=== PATIENT | female | born 1945 | race Caucasian/White ===

== ENCOUNTER → 2018-01-31 07:59 | Outpatient (CLI) | payer MEDICARE, OTHER, SELFPAY ==
[2018-01-31 10:03] LABS: Hemoglobin A1c 6.3 % (4.2-6.3); Microalbumin,Random Urine 32.3 mg/L (NO RANGE EST.)
[2018-01-31 10:25] LABS: ALB/GLOB Ratio 1.1 RATIO (0.9-2.4); AST(SGOT) 27 U/L (15-37); Alanine Aminotransfer ALT/SGPT 39 U/L (13-56); Albumin, Serum 3.3 g/dL (3.2-5.0); Alkaline Phosphatase 64 U/L (45-117); Anion Gap 10 (5-15); BUN 22 mg/dL (7-18); BUN/Creat Ratio 27.3 RATIO (10-20); Chloride 100 mmol/L (98-107); Cholesterol 168 mg/dL (200); EST Glomerular Filtration Rate 75 mL/min (>60); Est Glom Filt Rate - Afr Amer 90 mL/min (>60); Globulin 3.1 g/dL (2.2-4.2); Glucose 79 mg/dL (74-106); High Density Lipoprotein 75 mg/dL; Potassium 4.2 mmol/L (3.5-5.1); Protein, Total 6.4 g/dL (6.4-8.2); Sodium Level 138 mmol/L (136-145); Thyroid Stim Hormone (TSH) 0.97 uIU/mL (0.358-3.74); Triglycerides 84 mg/dL; Very Low Density Lipoprotein 17 mg/dL (5-40)
== END ==
PROVIDERS: Family Provider Family Medicine; PCP Family Medicine; Visit Provider Internal Medicine Endocrinology, Diabetes & Metabolism
DX: E11.21 Type 2 diabetes mellitus with diabetic nephropathy (principal); E78.2 Mixed hyperlipidemia; E04.9 Nontoxic goiter, unspecified
CPT/HCPCS: 36415; 80053; 80061; 82043; 83036; 84443

== ENCOUNTER → 2018-02-13 13:05 | Outpatient (CLI) | payer MEDICARE, OTHER, SELFPAY ==
--- NOTE | 2018-02-13 13:45 | MRI_ITS ---
STUDY: MRI LUMBAR SPINE WITHOUT CONTRAST REASON FOR EXAM: Female, 72 years old. Low back pain TECHNIQUE: Standardized fat and water weighted pulse sequences were obtained in the sagittal and axial planes. COMPARISON: None FINDINGS: T12-L1: Normal endplates. Normal disc height, hydration and morphology. Normal bilateral facet joints. Normal central canal and bilateral lateral recesses. Normal bilateral intervertebral neural foramina. Normal lumbar lordosis. Mild levoconvex scoliosis. Normal conus medullaris that terminates at the L1 level. L1-2: Circumferential disc marginal osteophyte. Central canal neural foramina patent. L2-3: Circumferential disc marginal osteophyte causing mild narrowing of the inferior neural foramina, left greater than right. Central canal is patent. L3-4: Moderate circumferential disc marginal osteophyte biased to the left causing moderately severe narrowing of the neural foramina, left greater than right. Central thecal sac is patent. L4-5: Moderate broad-based disc marginal osteophyte laterally on the right causing severe narrowing of the neural foramen and effacement of the lateral recess with probable nerve root impingement. Central canal patent. Moderate narrowing left neural foramen. L5-S1: Moderate circumferential disc marginal osteophyte biased to the right causing moderately severe narrowing of the neural foramen on the right. Central canal and left neural foramen patent. Normal visualized sacral ala. Normal visualized paraspinous soft tissue structures. MRI/Spine Lumbar (Routine) IMPRESSION: Moderate dextroconvex scoliosis and multilevel neural foraminal narrowing. Electronically Signed: David Winters MD at 0:04 EDT , Service support ,
== END ==
PROVIDERS: Family Provider Family Medicine; PCP Family Medicine; Visit Provider Orthopaedic Surgery
DX: M51.36 Other intervertebral disc degeneration, lumbar region (principal)
CPT/HCPCS: 72148

== ENCOUNTER → 2018-03-11 10:04 | Outpatient (CLI) | payer MEDICARE, OTHER, SELFPAY ==
[2018-03-11 12:58] LABS: Albumin, Serum 3.4 g/dL (3.2-5.0); BUN 15 mg/dL (7-18); BUN/Creat Ratio 17.6 RATIO (10-20); Calcium,Total 8.9 mg/dL (8.5-10.1); Chloride 98 mmol/L (98-107); Creatinine, Serum 0.85 mg/dL (0.55-1.02); EST Glomerular Filtration Rate 70 mL/min (>60); Est Glom Filt Rate - Afr Amer 84 mL/min (>60); Glucose 172 mg/dL (74-106); Phosphorus 4.6 mg/dL (2.5-4.9); Potassium 4.3 mmol/L (3.5-5.1); Sodium Level 136 mmol/L (136-145)
== END ==
PROVIDERS: Family Provider Family Medicine; PCP Family Medicine; Referring Provider Internal Medicine Nephrology; Visit Provider Internal Medicine Nephrology
DX: N18.2 Chronic kidney disease, stage 2 (mild) (principal)
CPT/HCPCS: 36415; 80069

== ENCOUNTER → 2018-06-22 10:34 | Outpatient (CLI) | payer MEDICARE, OTHER, SELFPAY ==
[2018-06-22 12:20] LABS: Anion Gap 11 (5-15); BUN 15 mg/dL (7-18); Calcium,Total 9.3 mg/dL (8.5-10.1); Chloride 106 mmol/L (98-107); Creatinine, Serum 0.83 mg/dL (0.55-1.02); EST Glomerular Filtration Rate 72 mL/min (>60); Est Glom Filt Rate - Afr Amer 87 mL/min (>60); Glucose 131 mg/dL (74-106); Sodium Level 141 mmol/L (136-145)
--- OUTSIDE RECORDS SUMMARY | 2018-08-24 20:54 | XMS RPT_ITS ---
:1945 Author Organization [facility] Address [address] [place] [address] Phone Care Team Providers Name Role Phone Marvin SULLIVAN, Emily Unavailable Reason for Visit Reason For Visit Description Start Date Follow-up by complaint Preliminary reason for visit data, not yet signed by the author as of lower back pain Preliminary reason for visit data, not yet signed by the author as of Chief Complaint Chief Complaint Description Start Date lower back pain Preliminary chief complaint data, not yet signed by the author as of Instructions Instruction Description Start Date Please follow-up with Primary Care Physician or Sole Blacker for treatment or adjustment of medication regarding elevated blood pressure.Patient advised to follow-up with Primary Care Physician for BMI management. Plan of Care Type Date Detail Appointment 09:30 AM Domingo Gay DO, [address] [place], [address], Appointment 01:00 PM Emily SULLIVAN, [address] [facility], [address], [address], Patient education \[email or web address] .pdf Medications Medication Instructions Start Stop Generic Name NDC Provider Date Date TYLENOL EXTRA 2 tabs as / ACETAMINOPHEN [id number] Emily STRENGTH 500 needed for 18 [place] MG TABS pain. [employer] TRAMADOL HCL 1 taqb 2x daily / TRAMADOL HCL [id number] Emily 50 MG TABS as needed for 18 [place] pain. [employer] FUROSEMIDE 20 1 tablet daily / FUROSEMIDE [id number] Manuela Smith MG TABS as needed for 04 [employer] TE[employer]ICIAN swelling LOSARTAN 1 tablet daily / LOSARTAN [id number] Manuela Smith POTASSIUM 50 04 POTASSIUM [employer] TECHNICIAN MG TABS CARVEDILOL 1 tablet twice / CARVEDILOL [id number] Manuela Smith 6.25 MG TABS daily 04 [employer]ARM TECHNICIAN LYRICA 75 MG 1 capsule twice / PREGABALIN [id number] Maneula Smith CAPS daily 04 [employer] FARM TECHNICIAN MAGNESIUM 400 1 tablet daily / MAGNESIUM 04326924669 Manuela Smith MG TABS 04 [employer] FARM TECHNICIAN TIZANIDINE 1 tablet twice / TIZANIDINE HCL 87038141637 Manuela Smith HCL 2 MG TABS daily as needed 04 [employer] FARM TECHNICIAN DULOXETINE 1 capsule daily / DULOXETINE HCL 64979070637 Manuela Smith HCL 30 MG 04 [employer] FARM TECHNICIAN CPEP PROBIOTIC 1 capsule daily / SACCHAROMYCES [id number] Manuela Smith CAPS 04 BOULARDII CAPS SOW FARM TECHNICIAN CRANBERRY 2 capsules / CRANBERRY CAPS 68276059132 Manueal Smith FRUIT CAPS daily 04 [employer] FARM TECHNICIAN CALCIUM TABS 4 tablets daily / CALCIUM 83975017753 Manuela Smith 04 CARBONATE-VITAMI [employer] FARM TECHNICIAN N D TABS NORVASC 2.5 1 tablet daily / AMLODIPINE 18914621020 Manuela Smith MG TABS 14 BESYLATE S[employer] FARM TECHNICIAN CENTRUM 1 tablet daily / MULTIPLE 38512753808 Manuela Smith SILVER TABS 16 VITAMINS-MINERAL SOW FARM TECHNICIAN S Conditions or Problems Problem Name Problem Onset Status Entry Provider Comment Standard Annotate Code Date Date Description Lumbar 19248502 Active Emily 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 Vital Signs Date Name Value Unit Description BMI (Body Mass 30.00 kg/m2 Body Mass Index Index) [Ratio] Preliminary vital sign data, not yet signed by the author as of BP Diastolic 69 mm[Hg] blood pressure, diastolic Preliminary vital sign data, not yet signed by the author as of BP Diastolic 75 mm[Hg] blood pressure, diastolic, second observation Preliminary vital sign data, not yet signed by the author as of BP Systolic 162 mm[Hg] blood pressure, systolic Preliminary vital sign data, not yet signed by the author as of BP Systolic 170 mm[Hg] blood pressure, systolic, second observation Preliminary vital sign data, not yet signed by the author as of Heart Rate 63 /min pulse rate E&M Preliminary vital sign data, not yet signed by the author as of Height 147 cm height in centimeters E&M Preliminary vital sign data, not yet signed by the author as of Height 58 [in_us] height E&M Preliminary vital sign data, not yet signed by the author as of Weight Measured 65 kg weight in kilograms E&M Preliminary vital sign data, not yet signed by the author as of Weight Measured 143 [lb_av] weight E&M Preliminary vital sign data, not yet signed by the author as of Results Date Name Value Unit Range Flag Description Lab Report: Urinalysis,Microscopic [id number] Many (51-100) Negative GE use only - for [employer] import when terms are not otherwise specified EPI CELL UR 3-5 /[LPF] 3-5 epithelial cells, urine URINERBC 3-5 0-2 URINE RBC UWBC 6-10 0-5 URINE WBC UR VOL TOTAL 8-12 mL urine volume, total for collection period Lab Report: Urinalysis,Macro URINE BLOOD Trace Negative URINE BLOOD BILIRUBIN UR Negative Negative bilirubin, urine UUROB Normal (0.2) 0-1 URINE UROBILINOGEN KETONES UR Negative Negative KETONES, URINE UGLUCOSE NEG (Normal) Negative Urine glucose TOT PROT UR Trace (15) Negative Protein [Mass] in mg/dL Urine collected for unspecified duration NITRITE UA POS Negative Nitrite Urine WBC ESTERASE 2+ Negative leukocyte (WBC) esterase, urine UA PH DIP 5.0 5.0-8.0 PH, urinalysis, by dipstick SPEC GR URIN 1.010 1.005-1.030 specific gravity, urine UA COLOR Yellow Lt. Yellow urine color APPEARANCE U Cloudy Clear appearance, urine Lab Report: Comp Metabolic Panel AST_SGOT 20 15-46 AST(SGOT) SGPT-UMD 35 U/L 13-69 alanine aminotransferase (SGPT), serum ALK PHOS 168 [iU]/ 38-126 H Alk Phos L BILI TOTAL 0.3 mg/dL 0.2-1.3 bilirubin, serum, total PROTEIN, TOT 5.7 g/dL 6.3-8.2 L protein, total, serum ALB S/P 3300 mg/dL Units L albumin, serum converted. See lab report for original value. CA 8.7 mg/dL 8.4-10.4 CALCIUM EGFR NOT AFA >60.0 mL/mi >60 eGFR if not mL/min n/1.7 [place] 3m2 EGFR IF AFA >60.0 mL/mi >60 eGFR if mL/min n/1.7 [place] 3m2 CREATININE 0.72 mg/dL 0.52-1.25 creatinine, serum BUN 15 mg/dL 7-20 urea nitrogen, blood GLUCOSE SER 182 mg/dL 70-100 H blood glucose ANIONGAP 6 (?) mmol/ anion gap, serum L CO2 31 mmol/ 22-30 H carbon dioxide, L venous blood CHLORIDE 99 mmol/ 98-107 chloride, serum L POTASSIUM 4.0 mmol/ 3.5-5.1 potassium, serum L SODIUM 136 mmol/ 135-145 sodium, serum L Lab Report: Hemogram MPV 7.4 fL 7.4-10.4 mean platelet volume PLATELETS 297 10*3/mm3 140-440 platelet count RDW 17.1 % 11.5-14.5 H red blood cell distribution width MCHC 32.9 % 32.0-36.0 mean corpuscular hemoglobin concentration, RBC MCH 30.1 pg 26.0-34.0 mean corpuscular hemoglobin, RBC MCV 91.5 fL 79.0-98.0 mean corpuscular volume, RBC HCT 31.6 % 35.0-47.0 L hematocrit, blood HGB 10.4 g/dL 11.7-16.0 L hemoglobin, blood RBC 3.45 10*6/mm3 3.80-5.20 L erythrocyte (RBC) count WBC 6.6 10*3/mm3 3.6-10.7 leukocyte count, blood Procedures Code Procedure Name Date Entry Date L0641 BASIC LUMBAR SUPPORT (BREG) G8509 Pain assessment documented as positive - no follow-up/reason not given G8427 Current medications documented 1036F Tobacco screening was negative - non user G8417 BMI documented as above normal parameters - follow-up documented G8950 Blood pressure outside of normal parameters - follow-up documented [id number] Patient Encounter Medications Administered No information available. Immunizations No information available. Advance Directives There may be information available, but it has not been provided by the sender. Assessments There may be information available, but it has not been provided by the sender. Review of Systems There may be information available, but it has not been provided by the sender. Family History There may be information available, but it has not been provided by the sender. History of Past Illness There may be information available, but it has not been provided by the sender. History of Present Illness There may be information available, but it has not been provided by the sender.
--- OUTSIDE RECORDS SUMMARY | 2018-08-24 20:54 | XMS RPT_ITS ---
:1945 Author Organization OHIP Care Team Providers Name Role Phone Hugo Julio Attending Unavailable Hugo Julio Primary Care Unavailable DAVID AG Attending Unavailable DAVID AG Referring Unavailable Hugo Julio Primary Care Unavailable MARBIN THOMPSON Attending Unavailable MARBIN THOMPSON Referring Unavailable Hugo Julio Primary Care Unavailable Tiara Buck Attending Unavailable Hugo Julio Primary Care Unavailable Tiara Buck Referring Unavailable PROBLEMS PROBLEMS DATE TYPE CONDITION / CODE ATTENDING STATUS SOURCE 03/11/2018 Unknown N18.2 - Chronic Tiara Buck Active [facility] stage 2 (mild) / Hospital N18.2(ICD-10) Repository 01/31/2018 Unknown 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 / Repository E11.21(ICD-10) 01/31/2018 Unknown 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, DAVID Active [facility] hyperlipidemia / Community E78.2(ICD-10) Hospital Repository 01/31/2018 Unknown 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 criteria. Please note revised GLUCOSE reference range effective 2017. LAB L501.1000 7-18 mg/dL Normal BUN 15 LAB L501.1100 0.55-1.02 mg/dL Normal CREAT,SERUM 0.83 Result Comment: The validity of the calculated GFR AND GFRAA in patients over 70 years has not been determined. Clinical correlation is essential. LAB L501.1110 >60 mL/min Normal EST GFR 72 Result Comment: Non- GFR Calc LAB L501.1115 >60 mL/min Normal EST GFR - AA 87 Result Comment: GFR Calc LAB L501.1300 10-20 RATIO Normal BUN/CRE 18.0 LAB L501.2200 8.5-10.1 mg/dL CA Normal 9.3 LAB L501.5300 136-145 mmol/L NA Normal 141 LAB L501.5600 3.5-5.1 mmol/L K Normal 4.0 LAB L501.5900 98-107 mmol/L CL Normal 106 LAB L501.6100 21.0-32.0 mmol/L Normal CO2 24.0 LAB L501.6200 5-15 Normal GAP 11 Performed By: #### L500.2500 #### [facility] [address] [place], [address] RENAL PROFILE Collected: 03/11/2018 Status: F Source: [place] 10:11 AM REPOSITORY TYPE CODE TESTS RESULT OUT OF RANGE REFERENCE UNITS LAB L501.0100 74-106 mg/dL High GLU 172 Result Comment: Fasting Glucose result greater than or equal to 126 mg/dL suggests DIABETES MELLITUS per A.D.A. criteria. Please note revised GLUCOSE reference range effective 2017. LAB L501.1000 7-18 mg/dL Normal BUN 15 LAB L501.1100 0.55-1.02 mg/dL Normal CREAT,SERUM 0.85 Result Comment: The validity of the calculated GFR AND GFRAA in patients over 70 years has not been determined. Clinical correlation is essential. LAB L501.1110 >60 mL/min Normal EST GFR 70 Result Comment: Non- GFR Calc LAB L501.1115 >60 mL/min Normal EST GFR - AA 84 Result Comment: GFR Calc LAB L501.1300 10-20 RATIO Normal BUN/CRE 17.6 LAB L501.1800 3.2-5.0 g/dL Normal ALB 3.4 LAB L501.2200 8.5-10.1 mg/dL CA Normal 8.9 LAB L501.2300 2.5-4.9 mg/dL Normal PHOS 4.6 LAB L501.5300 136-145 mmol/L NA Normal 136 LAB L501.5600 3.5-5.1 mmol/L K Normal 4.3 LAB L501.5900 98-107 mmol/L CL Normal 98 LAB L501.6100 21.0-32.0 mmol/L Normal CO2 28.0 Performed By: #### L500.3600 #### [facility] [address] [facility] [place], [address] SPINE LUMBAR Observed: 02/13/2018 Status: F Source: [place] (ROUTINE) 1:30 PM REPOSITORY [facility] Imaging Services [address] [place] [address] Spine Lumbar (Routine) MR#: [id number] Acct: [id number] Name: MADELYN HIGUERA Rep #: [id number] : 1945 F 72 From: David Winters MD PCP: Hugo Julio MD Status: REG CLI Study: Spine Lumbar (Routine) Date of Exam: 02/13/18 Exam# [id number] Ordering Dr: Domingo Thompson DO STUDY: MRI LUMBAR SPINE WITHOUT CONTRAST REASON FOR EXAM: Female, 72 years old. Low back pain TECHNIQUE: Standardized fat and water weighted pulse sequences were obtained in the sagittal and axial planes. COMPARISON: None FINDINGS: T12-L1: Normal endplates. Normal disc height, hydration and morphology. Normal bilateral facet joints. Normal central canal and bilateral lateral recesses. Normal bilateral intervertebral neural foramina. Normal lumbar lordosis. Mild levoconvex scoliosis. Normal conus medullaris that terminates at the L1 level. L1-2: Circumferential disc marginal osteophyte. Central canal neural foramina patent. L2-3: Circumferential disc marginal osteophyte causing mild narrowing of the inferior neural foramina, left greater than right. Central canal is patent. L3-4: Moderate circumferential disc marginal osteophyte biased to the left causing moderately severe narrowing of the neural foramina, left greater than right. Central thecal sac is patent. L4-5: Moderate broad-based disc marginal osteophyte laterally on the right causing severe narrowing of the neural foramen and effacement of the lateral recess with probable nerve root impingement. Central canal patent. Moderate narrowing left neural foramen. L5-S1: Moderate circumferential disc marginal osteophyte biased to the right causing moderately severe narrowing of the neural foramen on the right. Central canal and left neural foramen patent. Normal visualized sacral ala. Normal visualized paraspinous soft tissue structures. MRI/Spine Lumbar (Routine) IMPRESSION: Moderate dextroconvex scoliosis and multilevel neural foraminal narrowing. Electronically Signed: David Winters MD at 0:04 EDT , Service support , CC: Hugo Julio MD; MARBIN THOMPSON Wheel Molder: Signed HEMOGLOBIN A1C Collected: 01/31/2018 Status: F Source: [facility]ONATH[facility] 8:09 AM REPOSITORY TYPE CODE TESTS RESULT OUT OF RANGE REFERENCE UNITS LAB L501.9985 4.2-6.3 % Normal HGB A1C 6.3 Performed By: #### L501.9985 #### [facility] [address] [place], [place], [address] MICROALBUMIN,RANDOM URINE Collected: Status: F Source: [place] 01/31/2018 8:09 AM REPOSITORY TYPE CODE TESTS RESULT OUT OF RANGE REFERENCE UNITS LAB L502.0500 NO RANGE EST. mg/L Normal 32.3 MICROALBUMIN ,UR Performed By: #### L502.0500 #### [facility] [address] [place], [address] COMPREHENSIVE METABOLIC Collected: 01/31/2018 Status: F Source: [place]ON[facility] [place] 8:09 AM REPOSITORY TYPE CODE TESTS RESULT OUT OF RANGE REFERENCE UNITS LAB L501.0100 74-106 mg/dL Normal GLU 79 Result Comment: Please note revised GLUCOSE reference range effective 2017. LAB L501.1000 7-18 mg/dL High BUN 22 LAB L501.1100 0.55-1.02 mg/dL Normal CREAT,SERUM 0.80 Result Comment: The validity of the calculated GFR AND GFRAA in patients over 70 years has not been determined. Clinical correlation is essential. LAB L501.1110 >60 mL/min Normal EST GFR 75 Result Comment: Non- GFR Calc LAB L501.1115 >60 mL/min Normal EST GFR - AA 90 Result Comment: GFR Calc LAB L501.1300 10-20 RATIO High BUN/CRE 27.3 LAB L501.1500 6.4-8.2 g/dL T Normal PROT 6.4 LAB L501.1800 3.2-5.0 g/dL Normal ALB 3.3 LAB L501.1950 2.2-4.2 g/dL Normal GLOB 3.1 LAB L501.2000 0.9-2.4 RATIO Normal A/G 1.1 LAB L501.2200 8.5-10.1 mg/dL CA Normal 9.0 LAB L501.4100 15-37 U/L Normal AST 27 LAB L501.4305 45-117 U/L Normal ALK P 64 LAB L501.4405 13-56 U/L Normal ALT 39 LAB L501.4600 0.20-1.00 mg/dL T Normal BILI 0.40 LAB L501.5300 136-145 mmol/L NA Normal 138 LAB L501.5600 3.5-5.1 mmol/L K Normal 4.2 LAB L501.5900 98-107 mmol/L CL Normal 100 LAB L501.6100 21.0-32.0 mmol/L Normal CO2 28.0 LAB L501.6200 5-15 Normal GAP 10 Performed By: #### L500.4050, L500.4100, L501.9520 #### [facility] [address] [place], [address] LIPID PROFILE Collected: 01/31/2018 Status: F Source: [facility]ON[place] 8:09 AM REPOSITORY TYPE CODE TESTS RESULT OUT OF RANGE REFERENCE UNITS LAB L501.4900 200 mg/dL Normal CHOL 168 Result Comment: <200 mg/dL Desirable 200-240 mg/dL Borderline >240 mg/dL High Risk LAB L501.5000 mg/dL Normal TRIG 84 Result Comment: The drugs N-Acetylcysteine and Metamizole may falsely depress this assay. Serum Triglycerides Reference Interval Normal <150 mg/dL Borderline high 150 - 199 mg/dL High 200 - 499 mg/dL Very High > or = 500 mg/dL LAB L501.6400 mg/dL Normal HDL 75 Result Comment: The drugs N-Acetylcysteine and Metamizole may falsely depress this assay. Reference Range HDL <40 mg/dL Low HDL Cholesterol HDL >or= 60 mg/dL High HDL Cholesterol LAB L501.6500 0-130 mg/dL Normal LDL 76 LAB L501.6600 5-40 mg/dL Normal VLDL 17 Performed By: #### L500.4050, L500.4100, L501.9520 #### [facility] [address] [place], [address] THYROID STIM HORMONE Collected: 01/31/2018 Status: F Source: [place]ATH[facility] (TSH) 8:09 AM REPOSITORY TYPE CODE TESTS RESULT OUT OF RANGE REFERENCE UNITS LAB L501.9520 0.358-3.74 uIU/mL Normal TSH 0.97 Performed By: #### L500.4050, L500.4100, L501.9520 #### [facility] [address] [place], [place], [address] ALLERGIES ALLERGIES DATE TYPE / CODE NAME / CODE REACTION SEVERITY SOURCE 04/24/2016 Drug NSAIDS Other Unknown [facility] Allergy/4160 (Non-Steroidal Hospital 44205(SNOMED Anti-Inflamma/ Repository CT) [id number](RXN ORM) ENCOUNTERS ENCOUNTERS ADMIT/DISCHARGE ACCOUNT ADMITTING ENCOUNTER LOCATION SOURCE NUMBER CLASS 06/22/2018 [id number] Ambulatory [facility] 2 [facility] ing:MFPLAB Repository 03/11/2018 [id number] Ambulatory [facility] 7 [facility] ing:LAB.FUTUR Repository E 02/13/2018 [id number] Ambulatory [place] 8 [facility] ing:MRI Repository 01/31/2018 [id number] Ambulatory [place] [facility] 9 [facility] ing:LAB Repository PAYERS PAYERS ENCOUNTER GUARANTOR PAYER SUBSCRIBER SOURCE 06/22/2018 MADELYN Ames Primary MADEYLN [place] [id number] Insurance:MEDICARE MILLIKENDOB: [facility] [place]Y PART A [facility] [id number] Number: Repository [id number]: 330 [id number] [phone] () Date:2018-06-22 06/22/2018 Secondary MADELYN Ames [place] Insurance:AARPPolicy MILLIKENDOB: Community Number: [id number] Hospital [id number] Repository Date:[id number] [facility] [address], [place] [address]OZ: 06/22/2018 Tertiary NOT GIVENUNK [facility] Insurance:SELF PAY [facility] Number: Effective Repository Date:2018-06-22 03/11/2018 MADELYN Ames Primary MADELYN Johnson [id number] Insurance:MEDICARE MILLIKENDOB: Community ROCKY PART A [facility] [id number] Number: Repository [id number]: 330 [id number] [phone] () Date:2018-03-02 03/11/2018 Secondary MADELYN M [place] Insurance:AARPPolicy MILLIKENDOB: Community Number: [id number] Hospital [id number] Repository Date:[id number] [facility] [id number], [place] [address]ID: 03/11/2018 Tertiary NOT GIVENUNK [place] Insurance:SELF PAY [facility] Number: Effective Repository Date:2018-03-02 02/13/2018 MADELYN Ames Primary MADELYN Ames [place] [id number] Insurance:MEDICARE MILLIKENDOB: Community ROCKY PART A [facility] [id number] [place] Number: Repository [id number]: 330 [id number] [phone] () Date:2018-02-06 02/13/2018 Secondary MADELYN M [place] Insurance:AARPPolicy MILLIKENDOB: Community Number: [id number] Hospital [id number] Repository Date:[id number] [facility] [place], [place] [address]KC: 02/13/2018 Tertiary NOT GIVENUNK [place] Insurance:SELF PAY [facility] Number: Effective Repository Date:2018-02-06 01/31/2018 MADELYN Ames Primary MADELYN Ames Jonathan [id number] Insurance:MEDICARE MILLIKENDOB: Community ROCKY PART A [id number] [place] Number: Repository [id number]: 330 [id number] [phone] () Date:2018-01-31 01/31/2018 Secondary MADELYN Hui [place] Insurance:AARPPolicy NAINNDOB: Community Number: [id number] Hospital [id number] Repository Date:[id number] [facility] [place], [place] [address]CY: 01/31/2018 Tertiary NOT GIVENUNK [place] Insurance:SELF PAY [facility] Number: Effective Repository Date:2018-01-31
== END ==
PROVIDERS: Family Provider Family Medicine; PCP Family Medicine; Visit Provider Family Medicine
DX: E87.1 Hypo-osmolality and hyponatremia (principal)
CPT/HCPCS: 36415; 80048

== ENCOUNTER 2018-07-10 14:57 | Emergency (ER) | payer MEDICARE, OTHER, SELFPAY ==
[2018-07-10 14:59] VITALS: BP 201/101; PULSE 83; RESP 16; TEMP 36.6; O2SAT 98; BMI 29.0
--- NOTE | 2018-07-10 15:14 | CT_ITS ---
STUDY: CT BRAIN WITHOUT CONTRAST REASON FOR EXAM: Female, 72 years old. Laceration following a fall. RADIATION DOSAGE (If Supplied By Facility): CTDIvol = ( 44.99 ) mGy, DLP = ( 779.24 ) mGycm TECHNIQUE: Transaxial CT imaging of the brain was performed without administration of intravenous contrast material. Individualized dose optimization techniques were used for this CT. COMPARISON: None. FINDINGS: Normal soft tissue structures. Normal calvarium. There is mild cerebral atrophy with widening of the extra-axial spaces and ventricular dilatation. There are areas of decreased attenuation within the white matter tracts of the supratentorial brain, consistent with microvascular disease changes. Normal basal ganglia and thalami. Normal brainstem. Normal cerebellum. There is no intracranial hemorrhage. There are no findings of an acute ischemic infarction. Mucosal thickening of the right ethmoid sinus. CT/Brain/Head without Contrast IMPRESSION: Chronic involutional changes of the brain. Electronically Signed: Jim Arroyo MD at 15:38 EST , Service support ,
--- NOTE | 2018-07-10 15:14 | CT_ITS ---
STUDY: CT CERVICAL SPINE WITHOUT CONTRAST REASON FOR EXAM: Female, 72 years old. History of fall. Laceration. RADIATION DOSAGE (If Supplied By Facility): CTDIvol = ( 19.49 ) mGy, DLP = ( 434.35 ) mGycm TECHNIQUE: High resolution transaxial imaging was performed without contrast material. Sagittal and coronal images were reconstructed. Individualized dose optimization techniques were used for this CT. COMPARISON: None FINDINGS: Normal craniovertebral junction. Normal anterior atlantoaxial articulation. Normal odontoid process. There is straightening of the normal cervical lordosis. Normal vertebral bodies and posterior osseous elements. C2-3: Normal endplates. Normal disc height and morphology. Normal central canal and intervertebral neuroforamina. C3-4: Normal endplates. Normal disc height and morphology. Normal central canal and intervertebral neuroforamina. C4-5: Normal endplates. Normal disc height and morphology. Normal central canal and intervertebral neuroforamina. C5-6: Moderate degree of disc space narrowing. Uncovertebral arthrosis. Facet joint osteoarthritis of the bilateral facets. Bilateral neural foraminal stenosis worse on the left side. C6-7: Normal endplates. Normal disc height and morphology. Normal central canal and intervertebral neuroforamina. C7-T1: Normal endplates. Normal disc height and morphology. Normal central canal and intervertebral neuroforamina. Calcification of the carotid arteries. CT/Spine Cervical without Contras IMPRESSION: Multilevel degenerative changes, as described above. Electronically Signed: Jim Arroyo MD at 15:40 EST , Service support ,
--- NOTE | 2018-07-10 15:16 | ED.VISSUMM ---
- ER Visit Summary Date of Service: 07/10/18 Chief Complaint: Fall History of Present Illness: The patient is a 72 F presenting after fall. Patient states that she was trying to use her walker. It was not clicked together. Her walker collapsed and she tripped and fell. She hit her head but did not lose consciousness. She has a laceration to her left earlobe. She has left forearm skin tears. She is not on anticoagulants. She had back surgery approximately a month ago. She denies back pain. She is able to ambulate. No other injuries. Tetanus is up-to-date. Physical Examination: Vitals are stable. Patient is afebrile. Alert no acute distress. HEENT exam 1.5 cm left earlobe laceration Neck mild diffuse tenderness with no step-off Lungs are clear and equal bilaterally. Heart is regular rate and rhythm. Abdomen is soft nontender nondistended. Back: nontender Extremities 3 skin tears left dorsal forearm, no tenderness. Active full range of motion. Neurovascularly intact distally. Skin is warm and dry. No focal neurologic deficit. Remainder of exam is unremarkable. Emergency Department Course and Treatment: CT head and neck show no acute process. Laceration was repaired. Irrigated with saline. Anesthetized with lidocaine. 4, 5-0 simple sutures were placed. Patient tolerated this well. Advised wound care instructions. Advised to follow-up with primary care physician. Advised return to ED for worsening complaints. Disposition: Discharge home Impression: Mechanical fall, left earlobe laceration, left forearm skin tear, laceration repair This note was generated with [employer] dictation software. It may contain incorrect words, spelling, and punctuation that were not noted in review of the chart prior to signing ED Disposition - Plan for ED Patient: Referrals: Hugo Julio MD [Primary Care Provider] -
--- NOTE | 2018-07-10 16:11 | ED.DEP ---
ED Disposition - Plan for ED Patient: Instructions: ED Mechanical Fall, ED Laceration All Referrals: Hugo Julio MD [Primary Care Provider] -
[2018-07-10 16:24] VITALS: BP 183/75; PULSE 68; RESP 16; O2SAT 98
== END 2018-07-10 16:38 | disposition home or self-care (01) ==
LOC: ED 16:34
PROVIDERS: Emergency Provider Emergency Medicine; Family Provider Family Medicine; PCP Family Medicine
DX: S01.312A Laceration without foreign body of left ear, initial encounter (principal); S51.812A Laceration without foreign body of left forearm, initial encounter; W18.39XA Other fall on same level, initial encounter; Y93.89 Activity, other specified; Y92.9 Unspecified place or not applicable; I10 Essential (primary) hypertension
CPT/HCPCS: 12011; 70450; 72125; 99283

== ENCOUNTER → 2018-10-20 08:39 | Outpatient (CLI) | payer MEDICARE, OTHER, SELFPAY ==
[2018-10-20 10:41] LABS: Vitamin D,25 Hydroxy 43.7 ng/mL (29.95-100.01)
[2018-10-20 10:48] LABS: AST(SGOT) 17 U/L (15-37); Alanine Aminotransfer ALT/SGPT 22 U/L (13-56); Albumin, Serum 3.4 g/dL (3.2-5.0); Alkaline Phosphatase 124 U/L (45-117); Anion Gap 10 (5-15); BUN 13 mg/dL (7-18); BUN/Creat Ratio 17.2 RATIO (10-20); Calcium,Total 8.8 mg/dL (8.5-10.1); Chloride 104 mmol/L (98-107); Cholesterol 146 mg/dL (200); Creatinine, Serum 0.75 mg/dL (0.55-1.02); EST Glomerular Filtration Rate 80 mL/min (>60); Est Glom Filt Rate - Afr Amer 97 mL/min (>60); Globulin 3.4 g/dL (2.2-4.2); Glucose 85 mg/dL (74-106); High Density Lipoprotein 59 mg/dL; Potassium 3.9 mmol/L (3.5-5.1); Protein, Total 6.8 g/dL (6.4-8.2); Sodium Level 140 mmol/L (136-145); Thyroid Stim Hormone (TSH) 1.11 uIU/mL (0.358-3.74); Triglycerides 114 mg/dL; Very Low Density Lipoprotein 23 mg/dL (5-40)
== END ==
PROVIDERS: Family Provider Family Medicine; PCP Family Medicine; Referring Provider Internal Medicine Endocrinology, Diabetes & Metabolism; Visit Provider Internal Medicine Endocrinology, Diabetes & Metabolism
DX: E11.21 Type 2 diabetes mellitus with diabetic nephropathy (principal); E04.9 Nontoxic goiter, unspecified; E55.9 Vitamin D deficiency, unspecified
CPT/HCPCS: 36415; 80053; 80061; 82306; 83036; 84443

== ENCOUNTER → 2018-11-04 17:20 | Outpatient (CLI) | payer MEDICARE, OTHER, SELFPAY ==
--- NOTE | 2018-11-04 17:33 | RAD_ITS ---
HISTORY: Fecal urgency. 3 views of the abdomen. Findings: No comparisons. Severe degenerative disc disease and dextroscoliosis within the lumbar spine. Multiple surgical clips. There is some cholecystectomy clips within the right hemiabdomen, but some additional gastroesophageal junction clips and additional left hemiabdomen clips, possibly related to a gastric bypass. Gaseous distention of small bowel and colon is present but not to a pathological degree. No constipation. No air-fluid levels. A right hemipelvic phlebolith is present. Lung bases are clear. The heart does not appear to be enlarged. Arthritis is mild. No free air. RAD/Abd Inc Decub and/or Erect IMPRESSION: No acute disease perceived. Etiology for fecal free urgency not perceived. at 5248 Reported and signed by: Yasir Montoya MD Electronically Signed: Yasir Montoya MD at 4:18 EDT Tel , Service support ,
== END ==
PROVIDERS: Family Provider Family Medicine; PCP Family Medicine; Referring Provider Family Medicine; Visit Provider Family Medicine
DX: R15.2 Fecal urgency (principal)
CPT/HCPCS: 74019

== ENCOUNTER → 2018-11-06 12:03 | Outpatient (CLI) | payer MEDICARE, OTHER, SELFPAY ==
[2018-11-06 14:33] LABS: Vitamin B12 338 pg/mL (211-911)
[2018-11-06 15:01] LABS: Ferritin 16 ng/mL (8-252)
[2018-11-11 11:15] LABS: Zinc, WHOLE BLOOD 563 ug/dL (440-860)
== END ==
PROVIDERS: Family Provider Family Medicine; PCP Family Medicine; Referring Provider Family Medicine; Visit Provider Family Medicine
DX: Z98.84 Bariatric surgery status (principal)
CPT/HCPCS: 36415; 82607; 82728; 82746; 84630

== ENCOUNTER → 2018-11-12 08:58 | Outpatient (CLI) | payer MEDICARE, OTHER, SELFPAY ==
--- NOTE | 2018-11-12 09:00 | RAD_ITS ---
STUDY: AIR-CONTRAST UPPER GI SERIES AND SMALL BOWEL FOLLOW-THROUGH EXAMINATION. REASON FOR EXAM: Female, 73 years old. Abdominal bloating. History of prior gastric bypass surgery. FLUOROSCOPY TIME (if supplied): (1:55) minutes/seconds. 25 fluoroscopic images were obtained. TECHNIQUE: The patient ingested barium. Multiple images of the esophagus, stomach and duodenum were obtained. COMPARISON: None. FINDINGS: There is a moderate sized hiatal hernia. No evidence of gastroesophageal reflux. No mass lesion is seen. There is evidence of subtotal gastrectomy with anastomosis. There is no evidence of mass lesion. No evidence of ulceration. A small bowel follow-through examination was then obtained. The small bowel transit is normal. The terminal ileum is unremarkable. RAD/Upper GI/w Small Bowel IMPRESSION: Moderate sized hiatal hernia without gastroesophageal reflux. The patient is status post subtotal gastrectomy and gastric bypass surgery. Electronically Signed: Jim Arroyo, at 15:30 EDT , Service support ,
== END ==
PROVIDERS: Family Provider Family Medicine; PCP Family Medicine; Referring Provider Family Medicine; Visit Provider Family Medicine
DX: R15.2 Fecal urgency (principal)
CPT/HCPCS: 74249

== ENCOUNTER 2018-12-02 07:36 | Day surgery (SDC) | payer MEDICARE, OTHER, SELFPAY ==
[2018-11-24 15:02] VITALS: BMI 29.0
--- NOTE | 2018-11-25 12:05 | HP_ITS ---
Intake Vital Signs 11/24/18 Body Mass Index (BMI) 29.0 11/24/18 Height 4 ft 10 in 11/24/18 Weight: 135 lb 11/24/18 Body Mass Index (BMI) 28.2 11/24/18 Blood Pressure 207/69 H 11/24/18 Blood Pressure Location Rt femoral 11/24/18 Respiratory Rate 18 11/24/18 Pulse Rate 66 11/24/18 Pulse Source Monitor 11/24/18 Temperature 97.8 F 11/24/18 Pulse Ox 97 11/24/18 Oxygen Delivery Method room air Intake Visit Reasons: Hiatal Hernia (Patient wanted to see [facility]) Cleaner Required: No Is patient in pain?: No Allergies NSAIDS (Non-Steroidal Anti-Inflamma Adverse Reaction (Verified 11/24/18 14:47) Other Medications Multivit-Min/FA/Lycopene/Lut [Centrum Silver Tablet] 1 tab PO DAILY 03/04/13 [History Confirmed 11/24/18] Magnesium Oxide 400 mg PO DAILY 05/06/13 [History Confirmed 11/24/18] Docusate Sodium [Colace] 100 mg PO PRN PRN 04/24/16 [History Confirmed 11/24/18] amlodipine 5 mg tablet 2.5 mg PO DAILY tab 11/24/18 [History Confirmed 11/24/18] calcium carb,cit ER 600 mg calcium-vit D3 500 unit tablet,ext.release tab PO BID tab 11/24/18 [History] carvedilol 6.25 mg tablet 6.25 mg PO DAILY tab 11/24/18 [History Confirmed 11/24/18] lactobacillus combination no.8 3 billion cell capsule 3,000 mmu cells PO DAILY 11/24/18 [History Confirmed 11/24/18] losartan 100 mg tablet 50 mg PO DAILY tab 11/24/18 [History Confirmed 11/24/18] mirabegron ER 25 mg tablet,extended release 24 hr 25 mg PO DAILY 11/24/18 [History Confirmed 11/24/18] pregabalin 50 mg capsule 50 mg PO QHS cap 11/24/18 [History Confirmed 11/24/18] pregabalin 75 mg capsule 75 mg PO DAILY cap 11/24/18 [History Confirmed 11/24/18] PFSH Medical History History of change in bowel patterns (Acute) Hiatal hernia (Acute) Arthritis (Acute) Constipation (Acute) Diabetes (Acute) Diarrhea (Acute) History of back problems (Acute) Hypertension (Chronic) Surgical History History of bilateral knee replacement (Acute) history excision melanoma forehead (Acute) history orif right arm (Acute) Family History Grandfather Arthritis Colon cancer Grandmother Arthritis Hypertension Mother Arthritis Osteoporosis Father Hypertension Social History (Updated 11/25/18 @ 12:06 by Km Wynn MD) Smoking Status: Never smoker alcohol intake: never substance use type: does not use HPI HPI HPI: MADELYN HIGUERA, is a 73 F who presents to the office today for HPI HPI Surgical H&P: Yes HPI: MADELYN HIGUERA, is a 73 F who presents to the office today for evaluation for endoscopy. Patient has noticed an obvious change in her bowel habits which has been increasing over the last 3 to 4 months. She will noticed occasional rectal bleeding she has had significant amount of abdominal cramps and bloating. This is usually followed with mucousy stool and then diarrhea this is about every 3 days sometimes she will even have normal bowel movements in between this. Patient had an upper GI small bowel follow-through which showed a moderate size hiatal hernia without reflux patient is status post a subtotal gastrectomy and gastric bypass surgeries. Her last colonoscopy was [address] Auguste which she reportedly said was negative however I do not have that report in front of me as I dictate. Patient also states that she has difficulty with rectal incontinence and occasionally urinary incontinence. ROS General General: Yes fatigue; no weight change, appetite, colon cancer, breast cancer or weakness HEENT HEENT: No difficulty swallowing, eye injury, eye surgery, swollen glands or hoarseness Endo Endocrine: Yes diabetes mellitus; no thyroid disease, thyroid cancer, Hair loss, heat intolerance or cold intolerance Skin Skin: No rash or changing moles Breast Breast: No left breast lump, right breast lump, nipple discharge, breast pain, abnormal mammogram, abnormal US or breast enlargement Musc Musculoskeletal: Yes back problems and arthritis; no rheumatoid arthritis, gout or joint pain Cardio Cardiovascular: Yes high blood pressure; no murmur, pacemaker, heart disease, atrial fibrillation, heart attack, heart stent, palpitations, shortness of breat with exertion or chest pain Psych Psychiatric: No depression, anxiety or hearing voices Resp Respiratory: No shortness of breath, No sleep apnea, No cough, No COPD, No asthma, No emphysema, No wheezing Gastro Gastrointestinal: No abdominal pain, No nausea or vomiting, Yes diarrhea, Yes constipation, No blood in stool, No acid reflux, No hemorrhoids, No ulcers, No gallbladder problem, No black,tarry stools Frederic Hematologic: No blood thinners, No blood disorders, No bleeding, Yes anemia, No blood clots Neuro Neurologic: No system reviewed and no additional complaints, except as docu, No as per HPI, No abnormal walking, No abnormal hearing, No abnormal movements, No abnormal speech, No behavioral changes, No burning sensations, No confusion, No seizure-like activity, No unsteadiness, No dizziness, No localized weakness, No frequent falls, No headache(s), No lack of coordination, No loss of vision, No memory loss, No numbness, No other visual disturbances, No radiating pain, No restless legs, No sensory deficit, No fainting, No tingling, No tremor(s), No weakness, No other Exam Const General: no acute distress, well developed, well hydrated Orientation: oriented to person, oriented to place, oriented to time [facility] Head: normocephalic, atraumatic Ears: external ears normal Mouth: moist mucous membranes Eyes Sclera: sclerae normal Pupils: normal by confrontation Neck Neck: no lymphadenopathy noted Neck mass: No Thyroid: thyroid normal, symmetrical Chest Chest palpation & inspection: normal inspection of the chest Breast Palpation: No nipple discharge Resp Effort & Inspection: normal respiratory effort Auscultation: clear to auscultation bilaterally Percussion: percussion normal Cardio Rate: regular rate Rhythm: regular rhythm Heart Sounds: no murmurs GI Palpation: soft, no hepatosplenomegaly, no masses, nontender Rectal Exam: other Other: Rectal exam deferred. Extrem General: normal to inspection, no clubbing, cyanosis or edema Assessment & Plan Problems 1. History of change in bowel patterns 2. Hiatal hernia K44.9 Plan I have discussed the above with the patient. I have offered the patient colonoscopy as well as an esophagogastroduodenoscopy For evaluation. I have explained the risks/benefits of the procedure and described the procedure. I have discussed the risks with the patient, including but not limited to: infection, bleeding, perforation of the GI tract requiring emergency surgery, inability to complete the procedure, injury to any internal organs, complications of anesthesia, etc. - the patient understands and agrees to proceed. I have answered all the patient's questions to the patient's satisfaction and the patient has no further questions. The patient has been given instructions for the colon cleansing preparation. We will be doing random colon biopsies. Coding Level of Care Code Off vis,new,level 3 Diagnoses History of change in bowel patterns Hiatal hernia K44.9 11/25/18 1206 <Electronically signed by Km corral MD> Date _ Km Wynn MD I have re-examined the patient. There are no clinical changes since date of exam.
[2018-12-02] VITALS (10 sets, daily range): BP systolic 109–195; BP diastolic 62–81; PULSE 59–81; RESP 16; TEMP 36.2–36.8; O2SAT 92–100; BMI 27.2
--- NOTE | 2018-12-02 | COLBX_PTH ---
PATIENT: MADELYN HIGUERA LOC: EN U#:[id number] AGE/SX: 73/F ROOM: RE12/02/[address]: Dr. Km Wynn MD : 1945 BED: DIS: 12/02/2018 SPEC #: [id number] RECD: 12/02/18 09:58 STATUS: CARY REQ #: [id number] KLARISSA: 12/02/18 00:[address]: Km Wynn DEPT: SURGICAL PATHOLOGY RECD BY: Obdulio Simon ENTERED: 12/02/18 14:03 SP TYPE: COLON BX OTHR DR: Dr. Hugo Julio MD Tissues: A - Ascending colon B - COLON BIOPSY C - Rectum, NOS Procedures: Surgery Specimen Level IV HEADER OPERATION: Colonoscopy, EGD ([facility] [place]) PRE-OP DIAGNOSIS: Change in bowel habits; hiatal hernia TISSUE SUBMITTED: A - Ascending colon biopsy, B - Random colon biopsies, C - Rectal biopsies MICROSCOPIC DIAGNOSIS A. Ascending colon polyp, biopsy: Tubular adenoma. B. Colon, random biopsy: Fragments of colonic mucosa, no pathologic diagnosis. Tubular adenoma (one fragment). C. Rectal biopsy: Focal acute colitis. See microscopic description and comment. SJ:perla 12/04/18 COMMENT C. Clinical correlation and appropriate follow-up are suggested as clinically indicated. MICROSCOPIC DESCRIPTION Slides are reviewed. C. The specimen shows fragments of colonic mucosa with acute and chronic inflammatory cell Infiltrates in the lamina propria. Cryptitis and cryjpt abscesses, glandular distortion and granulomas are not seen. The finding of focal acute colitis is usually an incidental finding. Rarely it can be associated with infectious, self limited colitis or inflammatory bowel disease. GROSS DESCRIPTION A - Received in fixative is one container labeled with the patient's name and designated ascending colon polyp. The specimen consists of one irregular fragment of light hernandez soft tissue that measures 0.2 x 0.2 x 0.1 cm. The specimen is totally submitted in one cassette. B - Received in fixative is one container labeled with the patient's name and designated random colon biopsy. The specimen consists of multiple irregular fragments of light hernandez soft tissue that in aggregate measure 1 x 0.8 x 0.1 cm. The specimen is totally submitted in one cassette. C - Received in fixative is one container labeled with the patient's name and designated rectal biopsy. The specimen consists of multiple irregular fragments of light hernandez soft tissue that in aggregate measure 0.5 x 0.4 x 0.1 cm. Fragments of fecal material are also noted. The specimen is totally submitted in one cassette. / SHASHA:perla 12/02/18 TC:2 CPT: 78500 x3
[2018-12-02 08:20] LABS: Bedside Glucose 67 mg/dL (70-110)
--- NOTE | 2018-12-02 10:46 | OP.ENDO_ITS ---
12/02/2018 Hugo Julio [address] [place] [address] Re : Colonoscopy procedure for Shirley Love Dear Dr. Julio This procedure was performed on Sunday, December 02, 2018. My impressions and recommendations are as follows: Impressions : - One 5 mm polyp in the ascending colon, removed with a hot snare. Resected and retrieved. - Localized moderate inflammation was found in the rectum secondary to colitis. Biopsied. - Biopsies were taken with a cold forceps from the entire colon for evaluation of microscopic colitis. Recommendations : - Discharge patient to home. - Resume previous diet. - Continue present medications. - Await pathology results. - Repeat colonoscopy in 3 years for surveillance. - Return to my office in 1 week. My findings are described in the full procedure note, which is enclosed. If I can be of further assistance, please feel free to contact me at Doctor phone number(s): , Fax: [phone], Work: . Sincerely, MD Km Cardenas MD 12/02/2018 9:17:22 AM This report has been signed electronically.
--- NOTE | 2018-12-02 10:46 | OP.ENDO_ITS ---
12/02/2018 Hugo Julio [address] [place] [address] Re : Upper GI endoscopy procedure for Shirley Kate Dear Dr. Julio This procedure was performed on Sunday, December 02, 2018. My impressions and recommendations are as follows: Impressions : - Normal esophagus. - Bleeding erosive gastropathy. No specimens collected. - Normal examined jejunum. No specimens collected. Recommendations : - Discharge patient to home. - Resume previous diet. - Continue present medications. - Repeat upper endoscopy at appointment to be scheduled for surveillance. - Return to my office in 1 week. My findings are described in the full procedure note, which is enclosed. If I can be of further assistance, please feel free to contact me at Doctor phone number(s): , Fax: [phone], Work: . Sincerely, MD Km Cardenas MD 12/02/2018 9:12:56 AM This report has been signed electronically.
== END 2018-12-02 10:17 | disposition home or self-care (01) ==
LOC: EN 07:37 → AC 07:38
PROVIDERS: Family Provider Family Medicine; PCP Family Medicine; Referring Provider Family Medicine; Visit Provider Surgery
PROC: 0DJD8ZZ Inspection of Lower Intestinal Tract, Via Natural or Artificial Opening Endoscopic (ICD-10-PCS; CPT 45378; principal; 2018-12-02 08:50)
DX: K31.89 Other diseases of stomach and duodenum (principal); K44.9 Diaphragmatic hernia without obstruction or gangrene; D12.2 Benign neoplasm of ascending colon; K52.9 Noninfective gastroenteritis and colitis, unspecified; K62.5 Hemorrhage of anus and rectum; R93.3 Abnormal findings on diagnostic imaging of other parts of digestive tract; R19.4 Change in bowel habit; I10 Essential (primary) hypertension; E11.9 Type 2 diabetes mellitus without complications; Z79.899 Other long term (current) drug therapy; Z98.84 Bariatric surgery status
CPT/HCPCS: 43235; 45380; 45385; 82962; 88305; J7120; J1610; J2405

== ENCOUNTER → 2018-12-11 13:22 | Outpatient (CLI) | payer MEDICARE, OTHER, SELFPAY ==
[2018-12-02 07:45] VITALS: BMI 27.2
--- NOTE | 2018-12-11 13:25 | BI_ITS ---
MAMMOGRAPHY - BILATERAL SCREENING REASON FOR EXAM: Female, 73 years old. Routine annual screening examination. PERTINENT HISTORY: Non-contributory. TECHNIQUE: Digital bilateral breast mundo (3D mammographic acquisition) in the CC and MLO projections. 2-D mediolateral oblique (MLO) and craniocaudad (CC) views of both breasts were obtained. CAD: Full Field Digital Mammography with Computer Added Detection was performed. COMPARISON: Comparison is made with prior study dated November 15, 2016 and November 15, 2015. FINDINGS: Breast Composition: The breasts are heterogeneously dense, which may obscure small masses. There are no dominant masses or suspicious calcifications. No other significant abnormalities are identified. There has been no significant change since the prior study. BI/SCREEN MAMM (CAD) W/MUNDO BILAT IMPRESSION: Stable bilateral screening mammogram. Yearly follow-up mammogram recommended. (A) ASSESSMENT CATEGORY: BIRADS Category 1: Negative. A letter regarding these results will be sent to the patient by the facility within 30 days. Approximately 10% of breast cancers are not detected by mammography. A normal mammogram should not delay biopsy of a clinically suspicious abnormality. [id number] Electronically Signed: Jim Arroyo, at 14:46 EDT , Service support ,
== END ==
PROVIDERS: Family Provider Family Medicine; PCP Family Medicine; Referring Provider Obstetrics & Gynecology; Visit Provider Obstetrics & Gynecology
DX: Z12.31 Encounter for screening mammogram for malignant neoplasm of breast (principal)
CPT/HCPCS: 77063; 77067

== ENCOUNTER → 2019-01-05 10:41 | Outpatient (CLI) | payer MEDICARE, OTHER, SELFPAY ==
[2018-12-02 07:45] VITALS: BMI 27.2
[2019-01-05 12:38] LABS: AST(SGOT) 21 U/L (15-37); Alanine Aminotransfer ALT/SGPT 39 U/L (13-56); Albumin, Serum 2.9 g/dL (3.2-5.0); Alkaline Phosphatase 103 U/L (45-117); Anion Gap 8 (5-15); BUN 22 mg/dL (7-18); BUN/Creat Ratio 26.2 RATIO (10-20); Calcium,Total 8.6 mg/dL (8.5-10.1); Chloride 107 mmol/L (98-107); Creatinine, Serum 0.84 mg/dL (0.55-1.02); EST Glomerular Filtration Rate 71 mL/min (>60); Est Glom Filt Rate - Afr Amer 86 mL/min (>60); Glucose 155 mg/dL (74-106); Potassium 3.3 mmol/L (3.5-5.1); Protein, Total 5.9 g/dL (6.4-8.2); Sodium Level 142 mmol/L (136-145)
== END ==
PROVIDERS: Family Provider Family Medicine; PCP Family Medicine; Referring Provider Family Medicine; Visit Provider Family Medicine
DX: E87.1 Hypo-osmolality and hyponatremia (principal)
CPT/HCPCS: 36415; 80053

== ENCOUNTER → 2019-01-15 09:24 | Outpatient (CLI) | payer MEDICARE, OTHER, SELFPAY ==
[2018-12-02 07:45] VITALS: BMI 27.2
[2019-01-15 11:17] LABS: BUN 18 mg/dL (7-18); Creatinine, Serum 0.72 mg/dL (0.55-1.02); Glucose 89 mg/dL (74-106)
[2019-01-15 11:18] LABS: ALB/GLOB Ratio 0.9 RATIO (0.9-2.4); AST(SGOT) 32 U/L (15-37); Alanine Aminotransfer ALT/SGPT 53 U/L (13-56); Albumin, Serum 3.2 g/dL (3.2-5.0); Alkaline Phosphatase 121 U/L (45-117); Anion Gap 1 (5-15); BUN/Creat Ratio 24.9 RATIO (10-20); Calcium,Total 8.8 mg/dL (8.5-10.1); Chloride 109 mmol/L (98-107); EST Glomerular Filtration Rate 84 mL/min (>60); Est Glom Filt Rate - Afr Amer 102 mL/min (>60); Globulin 3.4 g/dL (2.2-4.2); Magnesium 2.7 mg/dL (1.6-2.6); Potassium 3.7 mmol/L (3.5-5.1); Protein, Total 6.6 g/dL (6.4-8.2); Sodium Level 143 mmol/L (136-145)
[2019-01-15 12:24] LABS: Hemoglobin A1c 6.4 % (4.2-6.3)
== END ==
PROVIDERS: Family Provider Family Medicine; PCP Family Medicine; Referring Provider Internal Medicine Endocrinology, Diabetes & Metabolism; Visit Provider Internal Medicine Endocrinology, Diabetes & Metabolism
DX: E11.21 Type 2 diabetes mellitus with diabetic nephropathy (principal)
CPT/HCPCS: 36415; 80053; 83036; 83735

== ENCOUNTER → 2019-03-02 08:29 | Outpatient (CLI) | payer MEDICARE, OTHER, SELFPAY ==
[2018-12-02 07:45] VITALS: BMI 27.2
[2019-03-02 11:13] LABS: ALB/GLOB Ratio 1.1 RATIO (0.9-2.4); AST(SGOT) 31 U/L (15-37); Alanine Aminotransfer ALT/SGPT 60 U/L (13-56); Albumin, Serum 3.5 g/dL (3.2-5.0); Alkaline Phosphatase 116 U/L (45-117); Anion Gap 8 (5-15); BUN 15 mg/dL (7-18); BUN/Creat Ratio 19.6 RATIO (10-20); Calcium,Total 9.2 mg/dL (8.5-10.1); Chloride 101 mmol/L (98-107); Creatinine, Serum 0.77 mg/dL (0.55-1.02); EST Glomerular Filtration Rate 79 mL/min (>60); Est Glom Filt Rate - Afr Amer 95 mL/min (>60); Globulin 3.1 g/dL (2.2-4.2); Glucose 84 mg/dL (74-106); Potassium 4.1 mmol/L (3.5-5.1); Protein, Total 6.6 g/dL (6.4-8.2); Sodium Level 139 mmol/L (136-145)
== END ==
PROVIDERS: Family Provider Family Medicine; PCP Family Medicine
DX: E88.09 Other disorders of plasma-protein metabolism, not elsewhere classified (principal); E87.6 Hypokalemia
CPT/HCPCS: 36415; 80053

== ENCOUNTER → 2019-05-24 10:19 | Outpatient (CLI) | payer MEDICARE, OTHER, SELFPAY ==
[2018-12-02 07:45] VITALS: BMI 27.2
[2019-05-24 13:22] LABS: ALB/GLOB Ratio 1.1 RATIO (0.9-2.4); AST(SGOT) 25 U/L (15-37); Alanine Aminotransfer ALT/SGPT 32 U/L (13-56); Albumin, Serum 3.2 g/dL (3.2-5.0); Alkaline Phosphatase 102 U/L (45-117); Anion Gap 5 (5-15); BUN 16 mg/dL (7-18); BUN/Creat Ratio 19.9 RATIO (10-20); Calcium,Total 8.4 mg/dL (8.5-10.1); Chloride 110 mmol/L (98-107); EST Glomerular Filtration Rate 74 mL/min (>60); Est Glom Filt Rate - Afr Amer 90 mL/min (>60); Glucose 152 mg/dL (74-106); Potassium 3.3 mmol/L (3.5-5.1); Protein, Total 6.2 g/dL (6.4-8.2); Sodium Level 143 mmol/L (136-145)
== END ==
PROVIDERS: Family Provider Family Medicine; PCP Family Medicine; Referring Provider Internal Medicine Endocrinology, Diabetes & Metabolism; Visit Provider Internal Medicine Endocrinology, Diabetes & Metabolism
DX: E11.21 Type 2 diabetes mellitus with diabetic nephropathy (principal)
CPT/HCPCS: 36415; 80053; 83036

== ENCOUNTER 2019-05-30 05:07 | Emergency (ER) | payer MEDICARE, OTHER, SELFPAY ==
[2018-12-02 07:45] VITALS: BMI 27.2
[2019-05-30 05:11] VITALS: BP 195/66; PULSE 68; RESP 16; TEMP 36.6; O2SAT 97; BMI 29.5
--- NOTE | 2019-05-30 05:45 | VDLE_ITS ---
Reason For Study: Lower extremity pain Procedure LEFT Exam performed portable in ED. GSV is normal. A preliminary report was called and/or faxed CFV is compressible, spontaneous, phasic, to [place]. competent, and demonstrates normal augmentation. FV is compressible, spontaneous, phasic, competent and demonstrates normal augmentation. POP V is compressible, spontaneous, phasic, competent and demonstrates normal augmentation. T/P Trunk is compressible. PTV is compressible. LT PerV is compressible. Interpretation Summary There is no evidence of left lower extremity deep vein thrombosis. Left great saphenous vein appears patent and compressible segmentally. Ordering Physician: Ja Cerna Referring Physician: Hugo Julio MD Performed By: Luly Mesa RVT
--- NOTE | 2019-05-30 05:46 | ED.VIS.GEN ---
History of Present Illness Chief Complaint: Lower Extremity Injury Narrative: Patient is a 73-year-old female who presents with left knee pain. She was sent in to rule out a DVT. She recently had a right hip bursectomy. She complains of pain just distal to the left knee anteriorly at the site of the patellar tendon. She also complains of peripheral edema on both legs as well as some vague left calf tightness. Past Medical History - Allergies and Home Meds Allergies/Adverse Reactions: Allergies NSAIDS (Non-Steroidal Anti-Inflamma Adverse Reaction (Verified 05/30/19 05:19) Other PT STATES WAS TOLD NOT TO TAKE PER Primary Care Physician: Hugo Julio MD [Primary Care Provider] - Past Medical History: - - Diabetes, hypertension Surgical History: total knee arthroplasty - Bilateral., - - Bariatric surgery. History of a right forearm fracture status post open reduction internal fixation. Smoking Status: Never smoker Review of Systems All systems negative except as indicated General: Denies: Fever Cardiovascular: Denies: Chest pain Respiratory: Denies: Dyspnea Gastrointestinal: Denies: Abdominal pain, Nausea, Vomiting, Diarrhea Musculoskeletal: Reports: - - Left knee pain Skin: Denies: Rash Neurological: Denies: Headache Physical Exam Vital Signs/Narrative: Vital Signs Temp Pulse Resp BP Pulse Ox 05/30/19 05:11 97.8 F 68 16 195/66 H 97 Diagnostic/Tx/Re-eval - Medical Decision Making Patient's presentation is most suggestive of patellar tendinitis on my exam. However given her vague complaints of calf pain or tightness with recent surgery I did feel venous duplex indicated. At the time of this dictation a venous duplex is pending. Knee x-ray showed no acute abnormality on my exam, radiology read pending, she has had a total knee arthroplasty. If x-ray is read as negative and venous duplex is negative I believe she can be discharged with supportive care such as rest ice elevation compression. Patient signed out to the oncoming physician to follow-up on results. ED Disposition - Plan for ED Patient: Diagnosis: Left anterior knee pain Instructions: Knee Sprain Referrals: Hugo Julio MD [Primary Care Provider] -
--- NOTE | 2019-05-30 06:00 | RAD_ITS ---
HISTORY: c/o left knee pain for 4 days. hip surgery may 03 2019 EXAMINATION/TECHNIQUE: XR left knee 4 views COMPARISON: 11/08/2010 FINDINGS: Generalized bony demineralization. Left total knee prosthesis and the prosthetic components appear in appropriate position. Normal bony alignment. No prosthetic loosening identified. No fracture or dislocation. No joint effusion. Atherosclerotic calcifications of the thigh, knee, and leg. RAD/Knee 4 or More Views IMPRESSION: 1. No fracture or acute osseous abnormality. 2. Left total knee prosthesis. No complication seen. 3. Osteoporosis. at 0750 Reported and signed by: Alberto Berger MD Electronically Signed: Alberto Berger, at 7:49 EST Tel , Service support ,
[2019-05-30 08:18] VITALS: BP 160/65; PULSE 64; RESP 18; O2SAT 93
== END 2019-05-30 10:28 | disposition home or self-care (01) ==
PROVIDERS: Emergency Provider Emergency Medicine; Family Provider Family Medicine; PCP Family Medicine
DX: M25.562 Pain in left knee (principal); M79.662 Pain in left lower leg; I10 Essential (primary) hypertension; M81.0 Age-related osteoporosis without current pathological fracture; Z96.653 Presence of artificial knee joint, bilateral
CPT/HCPCS: 73564; 93971; 99282

== ENCOUNTER → 2019-06-14 10:24 | Outpatient (CLI) | payer MEDICARE, OTHER, SELFPAY ==
[2019-05-30 05:11] VITALS: BMI 29.5
[2019-06-14 13:49] LABS: AST(SGOT) 31 U/L (15-37); Alanine Aminotransfer ALT/SGPT 40 U/L (13-56); Anion Gap 5 (5-15); BUN 20 mg/dL (7-18); Calcium,Total 8.8 mg/dL (8.5-10.1); Chloride 114 mmol/L (98-107); Creatinine, Serum 0.87 mg/dL (0.55-1.02); EST Glomerular Filtration Rate 68 mL/min (>60); Est Glom Filt Rate - Afr Amer 82 mL/min (>60); Glucose 155 mg/dL (74-106); Magnesium 2.8 mg/dL (1.6-2.6); Potassium 3.6 mmol/L (3.5-5.1); Sodium Level 146 mmol/L (136-145)
== END ==
PROVIDERS: Family Provider Family Medicine; PCP Family Medicine; Referring Provider Internal Medicine Endocrinology, Diabetes & Metabolism; Visit Provider Internal Medicine Endocrinology, Diabetes & Metabolism
DX: E11.21 Type 2 diabetes mellitus with diabetic nephropathy (principal); E83.42 Hypomagnesemia
CPT/HCPCS: 36415; 80048; 83735; 84450; 84460

== ENCOUNTER → 2019-10-07 07:45 | Outpatient (CLI) | payer MEDICARE, OTHER, SELFPAY ==
[2019-10-07 11:08] LABS: Hemoglobin A1c 6.8 % (4.2-6.3)
[2019-10-07 11:13] LABS: ALB/GLOB Ratio 1.2 RATIO (0.9-2.4); AST(SGOT) 30 U/L (15-37); Alanine Aminotransfer ALT/SGPT 43 U/L (13-56); Albumin, Serum 3.6 g/dL (3.2-5.0); Alkaline Phosphatase 113 U/L (45-117); Anion Gap 4 (5-15); BUN 12 mg/dL (7-18); Calcium,Total 8.9 mg/dL (8.5-10.1); Chloride 107 mmol/L (98-107); Cholesterol 175 mg/dL (200); Creatinine, Serum 0.71 mg/dL (0.55-1.02); EST Glomerular Filtration Rate 86 mL/min (>60); Est Glom Filt Rate - Afr Amer 104 mL/min (>60); Globulin 2.9 g/dL (2.2-4.2); Glucose 82 mg/dL (74-106); High Density Lipoprotein 68 mg/dL; Magnesium 2.3 mg/dL (1.6-2.6); Protein, Total 6.5 g/dL (6.4-8.2); Sodium Level 141 mmol/L (136-145); Thyroid Stim Hormone (TSH) 3.21 uIU/mL (0.358-3.74); Triglycerides 121 mg/dL; Very Low Density Lipoprotein 24 mg/dL (5-40)
== END ==
PROVIDERS: PCP Family Medicine; Referring Provider Internal Medicine Endocrinology, Diabetes & Metabolism; Visit Provider Internal Medicine Endocrinology, Diabetes & Metabolism
DX: E11.21 Type 2 diabetes mellitus with diabetic nephropathy (principal); E78.2 Mixed hyperlipidemia; E04.9 Nontoxic goiter, unspecified
CPT/HCPCS: 36415; 80053; 80061; 82043; 83036; 83735; 84443

== ENCOUNTER → 2019-10-18 13:46 | Outpatient (CLI) | payer MEDICARE, OTHER, SELFPAY ==
[2019-10-18 15:24] LABS: PTHIN 62.2 pg/mL (18.4-80.1)
[2019-10-18 15:28] LABS: T4 Free Direct 0.95 ng/dL (0.76-1.46)
== END ==
PROVIDERS: PCP Family Medicine; Referring Provider Internal Medicine Endocrinology, Diabetes & Metabolism; Visit Provider Internal Medicine Endocrinology, Diabetes & Metabolism
DX: E04.9 Nontoxic goiter, unspecified (principal); E21.5 Disorder of parathyroid gland, unspecified; E55.9 Vitamin D deficiency, unspecified; M81.0 Age-related osteoporosis without current pathological fracture
CPT/HCPCS: 36415; 82306; 83970; 84165; 84166; 84439

== ENCOUNTER → 2019-10-21 16:47 | Outpatient (CLI) | payer MEDICARE, OTHER, SELFPAY ==
[2019-10-27 16:08] LABS: PROELU- Albumin, Urine 72.1 % (.); PROELU- Alpha-1-Globulin,Ur 1.5 % (.); PROELU- Alpha-2-Globulin,Ur 5.4 % (.); PROELU- Beta Globulin, Ur 12.4 % (.); PROELU- Gamma Globulin, Ur 8.6 % (.); Total Protein, Ur 37.2 mg/dL (Not Estab.)
== END ==
PROVIDERS: PCP Family Medicine; Referring Provider Internal Medicine Endocrinology, Diabetes & Metabolism; Visit Provider Internal Medicine Endocrinology, Diabetes & Metabolism
DX: E04.9 Nontoxic goiter, unspecified (principal); E21.5 Disorder of parathyroid gland, unspecified; E55.9 Vitamin D deficiency, unspecified; M81.0 Age-related osteoporosis without current pathological fracture
CPT/HCPCS: 84166

== ENCOUNTER → 2020-01-24 07:59 | Outpatient (CLI) | payer MEDICARE, OTHER, SELFPAY | PROVIDERS: PCP Family Medicine; Referring Provider Internal Medicine Endocrinology, Diabetes & Metabolism; Visit Provider Internal Medicine Endocrinology, Diabetes & Metabolism | DX: E11.21 Type 2 diabetes mellitus with diabetic nephropathy (principal); E78.2 Mixed hyperlipidemia; M81.0 Age-related osteoporosis without current pathological fracture ==

== ENCOUNTER → 2020-01-25 08:10 | Outpatient (CLI) | payer MEDICARE, OTHER, SELFPAY ==
[2020-01-25 10:39] LABS: AST(SGOT) 22 U/L (15-37); Alanine Aminotransfer ALT/SGPT 29 U/L (13-56); Albumin, Serum 3.4 g/dL (3.2-5.0); Alkaline Phosphatase 82 U/L (45-117); Anion Gap 5 (5-15); BUN 17 mg/dL (7-18); BUN/Creat Ratio 20.4 RATIO (10-20); Calcium,Total 8.1 mg/dL (8.5-10.1); Chloride 105 mmol/L (98-107); Cholesterol 168 mg/dL (200); Creatinine, Serum 0.83 mg/dL (0.55-1.02); EST Glomerular Filtration Rate 71 mL/min (>60); Est Glom Filt Rate - Afr Amer 86 mL/min (>60); Globulin 3.3 g/dL (2.2-4.2); Glucose 83 mg/dL (74-106); High Density Lipoprotein 70 mg/dL; Potassium 4.6 mmol/L (3.5-5.1); Protein, Total 6.7 g/dL (6.4-8.2); Sodium Level 137 mmol/L (136-145); Triglycerides 89 mg/dL; Very Low Density Lipoprotein 18 mg/dL (5-40)
[2020-01-25 11:20] LABS: Hemoglobin A1c 6.1 % (3.8-5.6)
== END ==
PROVIDERS: PCP Family Medicine; Referring Provider Internal Medicine Endocrinology, Diabetes & Metabolism; Visit Provider Internal Medicine Endocrinology, Diabetes & Metabolism
DX: E11.21 Type 2 diabetes mellitus with diabetic nephropathy (principal); E78.2 Mixed hyperlipidemia; M81.0 Age-related osteoporosis without current pathological fracture
CPT/HCPCS: 36415; 80053; 80061; 83036

== ENCOUNTER → 2020-02-01 11:56 | Outpatient (CLI) | payer MEDICARE, OTHER, SELFPAY ==
--- NOTE | 2020-02-01 11:58 | BI_ITS ---
MAMMOGRAPHY - BILATERAL SCREENING REASON FOR EXAM: Female, 74 years old. Routine annual screening examination. PERTINENT HISTORY: Non-contributory. TECHNIQUE: Digital bilateral breast jina (3D mammographic acquisition) in the CC and MLO projections. 2-D mediolateral oblique (MLO) and craniocaudad (CC) views of both breasts were obtained. CAD: Full Field Digital Mammography with Computer Added Detection was performed. COMPARISON: Comparison is made with prior study dated 12/11/2018 and 11/15/2016. FINDINGS: Breast Composition: The breasts are heterogeneously dense, which may obscure small masses. There are no dominant masses or suspicious calcifications. Stable scattered bilateral microcalcifications. No focal clustering is seen. No other significant abnormalities are identified. There has been no significant change since the prior study. BI/SCREENING MAMM (CAD), BILAT IMPRESSION: Stable bilateral screening mammogram. Yearly follow-up mammogram recommended. (A) ASSESSMENT CATEGORY: BIRADS Category 2: Benign. A letter regarding these results will be sent to the patient by the facility within 30 days. Approximately 10% of breast cancers are not detected by mammography. A normal mammogram should not delay biopsy of a clinically suspicious abnormality. [id number] Electronically Signed: Jim Arroyo, at 13:09 EDT , Service support ,
== END ==
PROVIDERS: PCP Family Medicine; Referring Provider Obstetrics & Gynecology; Visit Provider Obstetrics & Gynecology
DX: Z12.31 Encounter for screening mammogram for malignant neoplasm of breast (principal)
CPT/HCPCS: 77067

== ENCOUNTER 2020-02-03 21:21 | Emergency (ER) | payer MEDICARE, OTHER, SELFPAY ==
[2020-02-03 21:21] VITALS: BP 179/95; PULSE 70; RESP 16; TEMP 36.6; O2SAT 99; BMI 29.0
--- NOTE | 2020-02-03 21:33 | RAD_ITS ---
STUDY: X-RAY - RIGHT ELBOW REASON FOR EXAM: Female, 74 years old. RIGHT ELBOW PAIN AFTER FALL TECHNIQUE: 5 view(s) of the elbow. COMPARISON: April 05, 2012 FINDINGS: There is demineralization of the visualized humerus, radius and ulna. There is fixation plate and screws of the proximal ulna. There is radial head replacement . There is degenerative arthrosis of the radiocapitellar and ulnotrochlear articulations. The soft tissue structures are unremarkable. There is joint effusion with elevation of the fat pads. RAD/Elbow min 3 Views IMPRESSION: Diffuse demineralization of the osseous structures. Postoperative and arthritic change. No acute fracture seen. Joint effusion with positive fat pad sign. Electronically Signed: Bartolome Marquez MD at 22:03 EDT , Service support ,
[2020-02-03 23:16] VITALS: RESP 16
--- NOTE | 2020-02-03 23:17 | ED.DEP ---
ED Disposition - Plan for ED Patient: Instructions: ED ELBOW SPRAIN Referrals: Hugo Julio MD [Primary Care Provider] - Leonrado Arellano DO [STAFF PHYSICIAN] -
--- NOTE | 2020-02-03 23:19 | ED.VISSUMM ---
- ER Visit Summary Date of Service: 02/03/20 Chief Complaint: Right elbow pain History of Present Illness: The patient is a 74 F presenting with right elbow pain. Patient states she tripped and fell forward. She landed on her right side. She did hit her head but did not lose consciousness. No amnesia to the event. No headache or vomiting. She is not on anticoagulants. She complains of right elbow pain. She has been able to ambulate since the fall. Denies other complaints. Physical Examination: Vitals are stable. Patient is afebrile. Alert no acute distress. HEENT exam right periorbital ecchymosis. PERRL, EOMI. No tenderness or step-off. Neck is nontender Lungs are clear and equal bilaterally. Heart is regular rate and rhythm. Abdomen is soft nontender nondistended. Extremities right diffuse elbow tenderness with active full range of motion. 3 small superficial skin tears right forearm.. Skin is warm and dry. No focal neurologic deficit. Remainder of exam is unremarkable. Emergency Department Course and Treatment: Patient was given tetanus IM. Wounds were cleaned and dressed. Right elbow x-ray shows diffuse demineralization of the osseous structures. Postoperative and arthritic change. No acute fracture seen. Joint effusion with positive fat pad sign. Ortho-Glass splint was applied. She was given a sling. Advised to follow-up with orthopedics. Advised return to ED for worsening complaints. Disposition: Discharge home Impression: Status post fall, right elbow sprain This note was generated with [employer] dictation software. It may contain incorrect words, spelling, and punctuation that were not noted in review of the chart prior to signing ED Disposition - Plan for ED Patient: Disposition: Home or Assisted Living Instructions: ED ELBOW SPRAIN Referrals: Hugo Julio MD [Primary Care Provider] - Leonardo Arellano DO [STAFF PHYSICIAN] -
[2020-02-03] MEDS: Diphth,Pertuss(Acell),Tet Vac 0.5 ML Vial IM (23:28)
== END 2020-02-04 00:05 | disposition home or self-care (01) ==
PROVIDERS: Emergency Provider Emergency Medicine; PCP Family Medicine
DX: S53.401A Unspecified sprain of right elbow, initial encounter (principal); W01.0XXA Fall on same level from slipping, tripping and stumbling without subsequent striking against object, initial encounter; Y93.9 Activity, unspecified; Y92.9 Unspecified place or not applicable; I10 Essential (primary) hypertension
CPT/HCPCS: 73080; 90471; 90715; 99283

== ENCOUNTER → 2020-03-07 12:10 | Outpatient (CLI) | payer MEDICARE, OTHER, SELFPAY | PROVIDERS: PCP Family Medicine; Referring Provider Internal Medicine Endocrinology, Diabetes & Metabolism; Visit Provider Internal Medicine Endocrinology, Diabetes & Metabolism | DX: E11.21 Type 2 diabetes mellitus with diabetic nephropathy (principal) | CPT/HCPCS: 36415; 82043; 82570 ==

== ENCOUNTER → 2020-03-09 08:32 | Outpatient (CLI) | payer MEDICARE, OTHER, SELFPAY ==
[2020-03-09 10:39] LABS: Microalbumin:Creatinine Ratio 711.4 mg/g CRE (<30 mg/g CRE)
== END ==
PROVIDERS: PCP Family Medicine; Referring Provider Internal Medicine Endocrinology, Diabetes & Metabolism; Visit Provider Internal Medicine Endocrinology, Diabetes & Metabolism
DX: E11.21 Type 2 diabetes mellitus with diabetic nephropathy (principal)
CPT/HCPCS: 82043; 82570

== ENCOUNTER → 2020-03-22 09:03 | Outpatient (CLI) | payer MEDICARE, OTHER, SELFPAY ==
[2020-03-22 10:34] LABS: Anion Gap 5 (5-15); BUN 14 mg/dL (7-18); Calcium,Total 7.9 mg/dL (8.5-10.1); Chloride 104 mmol/L (98-107); Creatinine, Serum 0.88 mg/dL (0.55-1.02); EST Glomerular Filtration Rate 67 mL/min (>60); Est Glom Filt Rate - Afr Amer 81 mL/min (>60); Glucose 213 mg/dL (74-106); Sodium Level 137 mmol/L (136-145)
== END ==
PROVIDERS: PCP Family Medicine; Referring Provider Internal Medicine Endocrinology, Diabetes & Metabolism; Visit Provider Internal Medicine Endocrinology, Diabetes & Metabolism
DX: E11.21 Type 2 diabetes mellitus with diabetic nephropathy (principal)
CPT/HCPCS: 36415; 80048

== ENCOUNTER → 2020-04-19 09:54 | Outpatient (CLI) | payer MEDICARE, OTHER, SELFPAY ==
[2020-04-19 12:33] LABS: Vitamin D,25 Hydroxy 33.6 ng/mL
[2020-04-19 12:43] LABS: Microalbumin:Creatinine Ratio 295.7 mg/g CRE (<30 mg/g CRE)
[2020-04-19 12:56] LABS: ALB/GLOB Ratio 1.1 RATIO (0.9-2.4); AST(SGOT) 19 U/L (15-37); Alanine Aminotransfer ALT/SGPT 44 U/L (13-56); Albumin, Serum 3.4 g/dL (3.2-5.0); Alkaline Phosphatase 63 U/L (45-117); Anion Gap 7 (5-15); BUN 18 mg/dL (7-18); BUN/Creat Ratio 19.7 RATIO (10-20); Calcium,Total 8.7 mg/dL (8.5-10.1); Chloride 104 mmol/L (98-107); Creatinine, Serum 0.91 mg/dL (0.55-1.02); EST Glomerular Filtration Rate 64 mL/min (>60); Est Glom Filt Rate - Afr Amer 78 mL/min (>60); Globulin 3.1 g/dL (2.2-4.2); Glucose 277 mg/dL (74-106); Magnesium 2.2 mg/dL (1.6-2.6); Potassium 3.7 mmol/L (3.5-5.1); Protein, Total 6.5 g/dL (6.4-8.2); Sodium Level 137 mmol/L (136-145); Thyroid Stim Hormone (TSH) 1.24 uIU/mL (0.358-3.74)
[2020-04-19 13:24] LABS: PTHIN 32.5 pg/mL (18.4-80.1)
== END ==
PROVIDERS: PCP Family Medicine; Referring Provider Internal Medicine Endocrinology, Diabetes & Metabolism; Visit Provider Internal Medicine Endocrinology, Diabetes & Metabolism
DX: E11.21 Type 2 diabetes mellitus with diabetic nephropathy (principal); E04.9 Nontoxic goiter, unspecified; E21.1 Secondary hyperparathyroidism, not elsewhere classified; E55.9 Vitamin D deficiency, unspecified; E83.42 Hypomagnesemia
CPT/HCPCS: 36415; 80053; 82043; 82306; 82570; 83735; 83970; 84443

== ENCOUNTER → 2020-05-18 14:42 | Outpatient (CLI) | payer MEDICARE, OTHER, SELFPAY ==
[2020-05-18 18:18] LABS: BUN 23 mg/dL (7-18); Creatinine, Serum 0.99 mg/dL (0.55-1.02); EST Glomerular Filtration Rate 58 mL/min (>60); Est Glom Filt Rate - Afr Amer 70 mL/min (>60)
== END ==
PROVIDERS: PCP Family Medicine; Referring Provider Orthopaedic Surgery; Visit Provider Orthopaedic Surgery
DX: M46.1 Sacroiliitis, not elsewhere classified (principal)
CPT/HCPCS: 36415; 82565; 84520

== ENCOUNTER → 2020-07-18 11:07 | Outpatient (CLI) | payer MEDICARE, OTHER, SELFPAY ==
--- NOTE | 2020-07-18 11:26 | EKG12_ITS ---
Test Reason : PRE-OP Blood Pressure : / mmHG Vent. Rate : 071 BPM Atrial Rate : 071 BPM P-R Int : 172 ms QRS Dur : 086 ms QT Int : 394 ms P-R-T Axes : 016 030 051 degrees QTc Int : 428 ms Sinus rhythm with Premature atrial complexes Otherwise normal ECG Confirmed by JULIAN BREAUX, TARYN ([id number]), editorial project manager ARLETH DIXON ([id number]) on 07/19/2020 10:06:48 AM Referred By: Michael Zuleta Confirmed By:TARYN JORDAN MD
--- NOTE | 2020-07-18 11:43 | RAD_ITS ---
STUDY: X-RAY CHEST REASON FOR EXAM: Female, 74 years old. PREOP FOR UPCOMING BACK SURGERY. TECHNIQUE: PA and lateral views of the chest. COMPARISON: Comparison is made with prior study dated 03/04/2013. FINDINGS: Hyperinflation. The lungs are clear. There is no demonstrated pleural abnormality. Normal size heart. Normal mediastinum and nicholas. Normal visualized pulmonary arteries. There is atherosclerotic calcification of the aortic arch with tortuosity. There are diffuse degenerative changes of the visualized thoracic spine. Straightening of the normal thoracic kyphosis. Loss of height of lower dorsal and upper lumbar vertebrae with kyphotic deformity at that site. Normal visualized ribs, clavicles, and shoulders. Surgical clips are seen in the epigastric region. RAD/Chest PA and Lateral IMPRESSION: No acute abnormality is seen. Electronically Signed: Jim Arroyo MD at 12:07 EST , Service support ,
[2020-07-18 11:47] LABS: Absolute Neutrophil Count 5.1 X10^3/uL (2.0-7.7); Basophil# 0.04 X10^3/uL; Basophil% 0.5 % (0-1); Eosinophil# 0.12 X10^3/uL; Eosinophils% 1.6 % (0-5); Hematocrit 40.9 % (37-47); Hemoglobin 12.9 g/dL (12.0-15.0); Lymphocyte % 23.3 % (19-41); Mean Corp Hgb Conc 31.5 g/dL (32-36); Mean Corpuscular Hgb 30.6 pg (27.0-32.0); Mean Corpuscular Volume 97.1 fL (81-99); Mean Platelet Vol. 9.2 fl (6.2-12.0); Monocyte# 0.62 X10^3/uL; NRBC Flagged by Analyzer 0 % (0-5); Neutrophil # 5.13 X10^3/uL (2.7-7.7); Neutrophil % 66.2 % (47-70); Platelet Count 208 K/mm3 (150-450); RBC Distribution Width SD 46.4 fl (35.1-43.9); Red Blood Count 4.21 M/mm3 (4.2-5.4); White Blood Count 7.7 K/mm3 (4.4-11.0)
[2020-07-18 11:55] LABS: Prothrombin Time (Protime)PT. 12.3 SECONDS (11.7-14.9)
[2020-07-18 11:56] LABS: Partial Thromboplast Time 25.4 Seconds (24.1-36.2)
[2020-07-18 12:06] LABS: Anion Gap 3 (5-15); BUN 14 mg/dL (7-18); BUN/Creat Ratio 17.6 RATIO (10-20); Calcium,Total 9.1 mg/dL (8.5-10.1); Chloride 104 mmol/L (98-107); Creatinine, Serum 0.79 mg/dL (0.55-1.02); EST Glomerular Filtration Rate 75 mL/min (>60); Est Glom Filt Rate - Afr Amer 91 mL/min (>60); Glucose 135 mg/dL (74-106); Potassium 4.1 mmol/L (3.5-5.1); Sodium Level 139 mmol/L (136-145)
[2020-07-18 12:11] LABS: Hemoglobin A1c 6.2 % (3.8-5.6)
== END ==
PROVIDERS: PCP Family Medicine; Referring Provider Orthopaedic Surgery; Visit Provider Orthopaedic Surgery
DX: Z01.812 Encounter for preprocedural laboratory examination (principal); Z01.810 Encounter for preprocedural cardiovascular examination; Z20.822 Contact with and (suspected) exposure to COVID-19
CPT/HCPCS: 36415; 71046; 80048; 83036; 85025; 85610; 85730; 87635; 93005; C9803; U0005; U0003

== ENCOUNTER → 2020-07-20 10:03 | Outpatient (CLI) | payer MEDICARE, OTHER, SELFPAY ==
[2020-07-20 12:25] LABS: ALB/GLOB Ratio 1.1 RATIO (0.9-2.4); AST(SGOT) 24 U/L (15-37); Alanine Aminotransfer ALT/SGPT 30 U/L (13-56); Albumin, Serum 3.5 g/dL (3.2-5.0); Alkaline Phosphatase 59 U/L (45-117); Anion Gap 3 (5-15); BUN 11 mg/dL (7-18); BUN/Creat Ratio 12.4 RATIO (10-20); Calcium,Total 8.2 mg/dL (8.5-10.1); Chloride 103 mmol/L (98-107); Creatinine, Serum 0.89 mg/dL (0.55-1.02); EST Glomerular Filtration Rate 66 mL/min (>60); Est Glom Filt Rate - Afr Amer 80 mL/min (>60); Globulin 3.2 g/dL (2.2-4.2); Glucose 180 mg/dL (74-106); Protein, Total 6.7 g/dL (6.4-8.2); Sodium Level 137 mmol/L (136-145)
[2020-07-20 12:29] LABS: Hemoglobin A1c 6.4 % (3.8-5.6)
[2020-07-20 12:38] LABS: Creatinine, Urine (random) < 13.00 mg/dL (NO RANGE EST.); Microalbumin,Random Urine 84.7 mg/L (NO RANGE EST.)
== END ==
PROVIDERS: PCP Family Medicine; Referring Provider Internal Medicine Endocrinology, Diabetes & Metabolism; Visit Provider Internal Medicine Endocrinology, Diabetes & Metabolism
DX: E11.21 Type 2 diabetes mellitus with diabetic nephropathy (principal)
CPT/HCPCS: 36415; 80053; 82043; 82570; 83036

== ENCOUNTER 2020-08-03 17:22 | Outpatient (RCR) | payer MEDICARE, OTHER, SELFPAY ==
[2020-08-03] MEDS: COVID-19 VACC, MRNA(PFIZER)/PF 30 MCG/0.3 ML SYRINGE IM (16:08)
[2020-08-24] MEDS: COVID-19 VACC, MRNA(PFIZER)/PF 30 MCG/0.3 ML SYRINGE IM (15:18)
== END 2020-11-07 23:59 ==
LOC: IMMUN 17:22
PROVIDERS: PCP Family Medicine; Visit Provider Family Medicine
DX: Z23 Encounter for immunization (principal)
CPT/HCPCS: 0001A; 0002A; 91300

== ENCOUNTER → 2020-10-17 11:45 | Outpatient (CLI) | payer MEDICARE, OTHER, SELFPAY ==
[2020-10-17 15:49] LABS: Vitamin D,25 Hydroxy 43.6 ng/mL
[2020-10-17 15:52] LABS: AST(SGOT) 21 U/L (15-37); Alanine Aminotransfer ALT/SGPT 26 U/L (13-56); Albumin, Serum 3.4 g/dL (3.2-5.0); Alkaline Phosphatase 60 U/L (45-117); Anion Gap 5 (5-15); BUN 27 mg/dL (7-18); BUN/Creat Ratio 32.6 RATIO (10-20); Calcium,Total 9.2 mg/dL (8.5-10.1); Chloride 100 mmol/L (98-107); Creatinine, Serum 0.83 mg/dL (0.55-1.02); EST Glomerular Filtration Rate 72 mL/min (>60); Est Glom Filt Rate - Afr Amer 87 mL/min (>60); Globulin 3.3 g/dL (2.2-4.2); Glucose 117 mg/dL (74-106); Protein, Total 6.7 g/dL (6.4-8.2); Sodium Level 137 mmol/L (136-145)
== END ==
PROVIDERS: PCP Family Medicine; Referring Provider Internal Medicine Endocrinology, Diabetes & Metabolism; Visit Provider Internal Medicine Endocrinology, Diabetes & Metabolism
DX: E11.21 Type 2 diabetes mellitus with diabetic nephropathy (principal); E21.1 Secondary hyperparathyroidism, not elsewhere classified; E55.9 Vitamin D deficiency, unspecified
CPT/HCPCS: 36415; 80053; 82306; 83970

== ENCOUNTER → 2020-12-08 09:19 | Outpatient (CLI) | payer MEDICARE, OTHER, SELFPAY ==
[2020-11-28 14:51] VITALS: BMI 29.4
--- NOTE | 2020-12-08 09:21 | RAD_ITS ---
STUDY: X-RAY - PARANASAL SINUSES REASON FOR EXAM: Female, 75 years old. NASAL CONGESTION TECHNIQUE: 3 view(s) of the paranasal sinuses were obtained. COMPARISON: None. FINDINGS: Normal visualized frontal, maxillary, ethmoidal and sphenoid sinuses. Normal visualized facial bones. The soft tissue structures are unremarkable. RAD/Sinuses min 3 Views IMPRESSION: Normal x-rays of the paranasal sinuses. Electronically Signed: Jim Arroyo MD at 14:34 EDT , Service support ,
== END ==
PROVIDERS: PCP Family Medicine; Referring Provider Family Medicine; Visit Provider Family Medicine
DX: R09.81 Nasal congestion (principal)
CPT/HCPCS: 70220

== ENCOUNTER → 2020-12-21 | Outpatient (CLI) | payer MEDICARE, OTHER, SELFPAY ==
[2020-12-20 05:29] VITALS: BMI 29.4
--- NOTE | 2020-12-21 | IMM_PTH ---
PATIENT: MADELYN HIGUERA LOC: [facility] U#:[id number] AGE/SX: 75/F ROOM: RE12/21/[address]: Dr. Garrison Alvarez MD : 1945 BED: DIS: 12/21/2020 SPEC #: [id number] RECD: 12/22/20 12:38 STATUS: CARY REQ #: [id number] KLARISSA: 12/21/20 00:[address]: Garrison Alvarez DEPT: IMMUNOHISTOCHEMISTRY RECD BY: Natalia Chan ENTERED: 12/22/20 12:39 SP TYPE: IMMUNO OTHR DR: Dr. Hugo Julio MD Tissues: Skin of buttock, NOS Procedures: SMA (add) DESMIN (add) P53 (add) Vimentin (add) SMM (add) NEUROFIL (add) Pankeratin (initial) MELAN-A (add) P40 (add) S-100 (add) PHYSICIAN & [address] [address] SPECIMEN INFORMATION: Tissue Source: Right buttock tissue Clinical Info: Right buttock lesion Specimen Number: [id number] CPT code: 87789, 15658 x9 METHODOLOGY: Deparaffinized sections of prefer/formalin-fixed tissue or PAP/DQ stained slides are incubated with monoclonal/polyclonal antibodies/oligonucleotide probes. Localization is made via biotin free immunoperoxidase method. Appropriate controls are performed and reacted as expected. Results on target cell population are indicated in the following table: RESULTS: ANTIBODY / CLONE RESULT AE1-3 (AE1/AE3/PCK26) negative Vimentin (V9) positive Actin (1A4) negative Myosin (simms1) negative Desmin (CE-R-11) negative Melan A (A103) positive S-100 (4C4.9) positive Neurofil (2F11) negative P40 (BC28) negative P53 (DO-7) negative These tests were developed and their performance characteristics determined by [facility]. They may not have been cleared or approved by the U.S. Food and Drug Administration. The FDA has determined that such clearance or approval is not necessary. The above immunohistochemical/dualISH markers are ordered and reviewed by the Pathologist. INTERPRETATION: Skin of right buttock, biopsy: Consistent with intradermal nevus. AM:perla 12/25/2020
--- NOTE | 2020-12-21 | LES_PTH ---
PATIENT: MADELYN HIGUERA LOC: [facility] U#:[id number] AGE/SX: 75/F ROOM: RE12/21/[address]: Dr. Garrison Alvarez MD : 1945 BED: DIS: 12/21/2020 SPEC #: [id number] RECD: 12/21/20 07:45 STATUS: CARY SMITH #: [id number] KLARISSA: 12/21/20 00:[address]: Garrison Alvarez DEPT: SURGICAL PATHOLOGY RECD BY: Obdulio Simon ENTERED: 12/21/20 13:30 SP TYPE: Lesion OTHR DR: Dr. Hugo Julio MD Tissues: Skin of buttock, NOS Procedures: Surgery Specimen Level IV HEADER OPERATION: Excision right buttock lesion PRE-OP DIAGNOSIS: Right buttock lesion TISSUE SUBMITTED: Right buttock tissue MICROSCOPIC DIAGNOSIS Skin of right buttock, biopsy: Intradermal nevus. See comment. AM:perla 12/22/2020 COMMENT Immunohistochemistry ([id number]) supports the above diagnosis. Case has been reviewed in consultation with Dr. Mosqueda who concurs with the above diagnosis. IDC:SJ MICROSCOPIC DESCRIPTION Slides are reviewed. GROSS DESCRIPTION Received in fixative is one container labeled with the patient's name and designated right buttocks. The specimen consists of an irregular fragment of light hernandez skin that measures 0.7 x 0.5 x 0.2 cm. The specimen is inked, bisected and totally submitted in one cassette. / AM:perla 12/21/20 TC:5 CPT: 76391
== END | disposition home or self-care (01) ==
LOC: LABSPEC 08:20
PROVIDERS: PCP Family Medicine; Referring Provider Surgery; Visit Provider Surgery
DX: D23.5 Other benign neoplasm of skin of trunk (principal)
CPT/HCPCS: 88305; 88341; 88342

== ENCOUNTER → 2021-01-03 17:44 | Emergency (ER) | payer MEDICARE, OTHER, SELFPAY ==
[2020-12-27 15:27] VITALS: BMI 29.4
[2021-01-03 17:44] VITALS: BP 186/71; PULSE 88; RESP 16; TEMP 36.9; O2SAT 99; BMI 27.6
--- NOTE | 2021-01-03 19:13 | EKG12_ITS ---
Test Reason : CONFUSION Blood Pressure : / mmHG Vent. Rate : 073 BPM Atrial Rate : 073 BPM P-R Int : 176 ms QRS Dur : 088 ms QT Int : 404 ms P-R-T Axes : 016 027 073 degrees QTc Int : 445 ms Normal sinus rhythm Normal ECG Confirmed by JULIAN BREAUX, TARYN ([id number]), editorial specialist ARLETH DIXON ([id number]) on 01/08/2021 9:37:30 AM Referred By: FAHAD Confirmed By:TARYN JORDAN MD
--- NOTE | 2021-01-03 19:33 | EDS_ITS ---
HPI History of Present Illness Chief Complaint: Confusion Narrative Narrative: 75-year-old female presenting with confusion and what her primary care physician called delusions. Apparently has been ongoing for 3 days. Patient has not had any injury that she knows of. Her states that she is more forgetful and does stuff like leave the stove on. She does not have any facial droop or slurred speech. When I asked her what she is here for she states I have just been having wonderful thoughts praise the Lord. She denies any pain. Her states she has not been vomiting. He states that this is a typical behavior for her. She has no psychiatric history that she knows of. Her primary care physician was concerned for UTI with delirium. [facility] Medical History Arthritis Constipation Diabetes Diarrhea Hiatal hernia History of back problems History of change in bowel patterns Hypertension Home Medications vkhkidro-goa-NF-lycopen-lutein 1 tab PO DAILY 03/04/13 [History Last Taken Unknown] magnesium oxide 400 mg PO DAILY 05/06/13 [History Last Taken Unknown] docusate sodium 100 mg PO PRN PRN 04/24/16 [History Last Taken Unknown] amlodipine 5 mg tablet 2.5 mg PO DAILY tab 11/24/18 [History Last Taken 12/02/18] lactobacillus combination no.8 3 billion cell capsule 3,000 mmu cells PO DAILY 11/24/18 [History Last Taken Unknown] losartan 100 mg tablet 50 mg PO DAILY tab 11/24/18 [History Last Taken 12/02/18] acetaminophen 500 - 1,000 mg PO Q6H PRN PRN 11/30/18 [History Last Taken Unknown] cranberry 1,000 mg PO DAILY 11/30/18 [History Last Taken Unknown] tramadol 50 mg PO Q4H PRN PRN 11/30/18 [History Last Taken 12/02/18] cholecalciferol (vitamin D3) 800 unit PO DAILY 05/30/19 [History Last Taken Unknown] carvedilol 6.25 mg PO BID 02/03/20 [History Last Taken Unknown] furosemide 20 mg PO DAILY 02/03/20 [History Last Taken Unknown] tcftwo-tewjpgcm-ybzgqyq 2 cap PO TID 02/03/20 [History Last Taken Unknown] pantoprazole 40 mg PO DAILY 02/03/20 [History Last Taken Unknown] Allergy/AdvReac Type Severity Reaction Status Date / Time NSAIDS (Non-Steroidal AdvReac Other Verified 01/03/21 17:47 Anti-Inflamma Family History Grandfather Arthritis Colon cancer Grandmother Arthritis Hypertension Mother Arthritis Osteoporosis Father Hypertension Surgical History history excision melanoma forehead History of bilateral knee replacement History of repair of rectocele history orif right arm S/P bariatric surgery S/P hysterectomy S/P laparoscopic cholecystectomy S/P vaginopexy Social History Smoking Status: Never smoker alcohol intake: never substance use type: does not use ROS ROS ED Review of Systems ROS Unobtainable: due to mental status Constitutional Constitutional ED: Denies chills or fever(s) Eyes Eyes: Denies blurry vision or diplopia ENT ENT ED: Denies rhinorrhea or sore throat Cardiovascular Cardiovascular: Denies chest pain or palpitations Respiratory/Chest Respiratory/Chest: Denies cough, dyspnea or sputum Gastrointestinal Gastrointestinal: Denies abdominal pain, constipation, diarrhea, nausea or vomiting Genitourinary Genitourinary ED: Denies dysuria or hematuria Musculoskeletal Musculoskeletal: Denies arthralgias or myalgias Integumentary Denies abscess or rash Neurologic Neurologic: Denies headache(s) or paresthesias Psychiatric Psychiatric: Reports other Details: Confusion and forgetfulness EXAM Physical Exam Const Vital Signs: 01/03/21 17:44 01/03/21 20:43 01/03/21 22:38 Temperature 98.4 F Temperature Source Temporal Pulse Rate 88 74 Respiratory Rate 16 10 L Blood Pressure 186/71 H 203/71 H 217/76 H Blood Pressure Mean 109 115 123 Pulse Ox 99 96 Oxygen Delivery Method Room Air Room Air 01/03/21 23:35 01/03/21 23:55 Temperature Temperature Source Pulse Rate Respiratory Rate Blood Pressure 199/80 H 188/72 H Blood Pressure Mean 119 110 Pulse Ox Oxygen Delivery Method Positive well nourished General Appearance ED: NAD HEENT Reports moist mucous membranes Negative for trauma Eyes EOMs intact bilaterally General Eye ED: Negative for pale conjunctiva or scleral icterus Neck no lymphadenopathy Resp normal respiratory effort and clear to auscultation bilaterally Cardio regular rate and regular rhythm GI normal to inspection, nondistended, normoactive bowel sounds and non-tender Palpation: soft Neuro CN's II-XII intact bilaterally and no sensory deficits noted Sensorium / Orientation: alert Motor Exam: strength 5/5 throughout Skin no rashes or lesions noted and no wounds MDM MDM MDM Narrative Medical decision making narrative: Patient presenting with altered mental status and confusion for her . Patient's lab work-up is unremarkable. Urinalysis is negative for infection. Urine drug screen is negative. Troponin is normal. EKG on my interpretation shows a sinus rhythm with a ventricular rate of 73 bpm without signs of ST, depression, elevation, dysrhythmia. Chest x-ray on my interpretation shows no acute cardiopulmonary process and the radiologist does agree. CT brain interpreted by the radiologist shows no acute intracranial process. On reevaluation the patient states that she really feels that the Lord has come. She is feels like he is speaking to her and she wants to go out and spread the word however she feels the forces of evil upon her forcing her to be confused about what she would say. She has not specifically homicidal or suicidal. Patient's states that he would be unable to care for her at home like this unless I speak to her primary care provider and they felt that there was something they could do on an outpatient basis. Patient's blood pressure was noted to be a little bit elevated but however looking in the medical record it does appear to be elevated quite frequently. I do not believe this is the source of her confusion however I did give her 10 of hydralazine and her blood pressure did come down somewhat. I spoke with Dr. Parr who is on- call for Hugo Julio in he felt it was more likely psychiatric given the negative work-up. He recommended getting a crisis consult in the ED and possibly a geriatric psychiatric admission given the patient's symptoms. Her states that she has no history of psychiatric disease and may be has early dementia but has not acted like this previously. He also believes it may be the medications that she is on for her sinusitis may have caused her symptoms however he does not have a list of these and I am unable to obtain these medications. Again her EtOH and urine drug screen are negative. Will obtain crisis consult to determine best course of action. EtOH is pending but I suspect this will likely be negative. Patient was signed out to incoming ED physician for follow-up and ultimate disposition. Impression: 1. Delirium Lab Data Attestation: I reviewed the patient's lab results. Labs: Laboratory Results - last 24 hr 01/03/21 01/03/21 01/03/21 19:40 19:40 19:43 WBC 6.2 RBC 3.94 L Hgb 12.0 Hct 37.3 MCV 94.7 MCH 30.5 MCHC 32.2 RDW Std Deviation 44.4 H RDW Coeff of Chuyita 12.9 Plt Count 272 MPV 9.0 Immature Gran % (Auto) 0.200 Neut % (Auto) 66.7 Lymph % (Auto) 24.5 Finney % (Auto) 7.5 Eos % (Auto) 0.6 Baso % (Auto) 0.5 Absolute Neuts (auto) 4.1 Absolute Lymphs (auto) 1.51 Nucleated RBC % 0 Sodium Potassium Chloride Carbon Dioxide Anion Gap BUN Creatinine Estim Creat Clear Calc Est GFR (MDRD) Af Amer Est GFR (MDRD) Non-Af BUN/Creatinine Ratio Glucose Calcium Total Bilirubin AST ALT Alkaline Phosphatase Troponin I High Sens Total Protein Albumin Globulin Albumin/Globulin Ratio Urine Color Straw Urine Clarity Clear Urine pH 7.0 Ur Specific [place] 1.010 Urine Protein 30 H Urine Glucose (UA) Normal Urine Ketones Negative Urine Occult Blood Negative Urine Nitrite Negative Urine Bilirubin Negative Urine Urobilinogen Normal Ur Leukocyte Esterase Negative Urine RBC 0 SEEN Urine WBC 0 SEEN Ur Squamous Epith Cells 0 SEEN Urine Bacteria 0 SEEN Urine Mucus 0 SEEN Urine Opiates Screen NEGATIVE Urine Methadone Screen NEGATIVE Ur Barbiturates Screen NEGATIVE Ur Phencyclidine Scrn NEGATIVE Ur Amphetamines Screen NEGATIVE U Methamphetamin-MDMA NEGATIVE U Benzodiazepines Scrn NEGATIVE Urine Cocaine Screen NEGATIVE U Cannabinoids Screen NEGATIVE Ur Drug Screen Comment 01/03/21 19:43 WBC RBC Hgb Hct MCV MCH MCHC RDW Std Deviation RDW Coeff of Chuyita Plt Count MPV Immature Gran % (Auto) Neut % (Auto) Lymph % (Auto) Finney % (Auto) Eos % (Auto) Baso % (Auto) Absolute Neuts (auto) Absolute Lymphs (auto) Nucleated RBC % Sodium 137 Potassium 3.6 Chloride 103 Carbon Dioxide 31.0 Anion Gap 3 L BUN 13 Creatinine 0.57 Estim Creat Clear Calc 46.75 Est GFR (MDRD) Af Amer 134 Est GFR (MDRD) Non-Af 111 BUN/Creatinine Ratio 22.9 H Glucose 108 H Calcium 8.8 Total Bilirubin 0.40 AST 21 ALT 31 Alkaline Phosphatase 56 Troponin I High Sens 8.2 Total Protein 6.4 Albumin 3.4 Globulin 3.0 Albumin/Globulin Ratio 1.1 Urine Color Urine Clarity Urine pH Ur Specific [place] Urine Protein Urine Glucose (UA) Urine Ketones Urine Occult Blood Urine Nitrite Urine Bilirubin Urine Urobilinogen Ur Leukocyte Esterase Urine RBC Urine WBC Ur Squamous Epith Cells Urine Bacteria Urine Mucus Urine Opiates Screen Urine Methadone Screen Ur Barbiturates Screen Ur Phencyclidine Scrn Ur Amphetamines Screen U Methamphetamin-MDMA U Benzodiazepines Scrn Urine Cocaine Screen U Cannabinoids Screen Ur Drug Screen Comment Radiography Diagnostic Testing: Radiology Impression Chest X-Ray 01/03/21 20:20 IMPRESSION: No radiographic evidence of acute cardiopulmonary disease. at 2059 Reported and signed by: Yang Landeros MD Electronically Signed: Yang Landeros MD at 20:57 EDT Tel , Service support , Brain CT 01/03/21 20:23 IMPRESSION: Chronic involutional and white matter changes. No acute intracranial process. Individualized dose optimization techniques were used for this CT. at 2101 Reported and signed by: Yang Landeros MD Electronically Signed: Yang Landeros MD at 21:00 EDT Tel , Service support , Discharge Plan Triage Chief Complaint: Confusion ED Provider: Micah Snyder Dx/Rx/DC Orders Prescriptions: No Action Adult Probiotic 3 billion cell capsule 3,000 mmu cells PO DAILY RF: 0 alpekerz-qto-XH-lycopen-lutein 1 EACH tablet 1 tab PO DAILY RF: 0 magnesium oxide 250 MG tablet 400 mg PO DAILY RF: 0 docusate sodium 100 MG capsule 100 mg PO PRN PRN (Reason: Constipation) RF: 0 amlodipine 5 mg tablet 2.5 mg PO DAILY RF: 0 losartan 100 mg tablet 50 mg PO DAILY RF: 0 cranberry 500 MG capsule 1,000 mg PO DAILY RF: 0 tramadol 50 MG tablet 50 mg PO Q4H PRN PRN (Reason: Pain) RF: 0 acetaminophen 500 MG tablet 500 - 1,000 mg PO Q6H PRN PRN (Reason: back pain) RF: 0 cholecalciferol (vitamin D3) 400 UNIT capsule 800 unit PO DAILY RF: 0 carvedilol 6.25 MG tablet 6.25 mg PO BID RF: 0 pantoprazole 40 MG tablet 40 mg PO DAILY RF: 0 furosemide 20 MG tablet 20 mg PO DAILY RF: 0 irledz-mmgfjocd-uynlikp 36,000-114,000- 180,000 unit capsule,delayed release(DR/EC) 2 cap PO TID RF: 0 Primary Care Provider: Hugo Julio
[2021-01-03 20:11] LABS: Bacteria 0 SEEN /hpf (None Seen); Mucous, Urine 0 SEEN /hpf (<or=2+); Red Blood Cells-Urine 0 SEEN /hpf (0-5); Squamous Epithelial Cells - UA 0 SEEN /hpf (5-10); White Blood Cells 0 SEEN /hpf (0-5)
[2021-01-03 20:18] LABS: Absolute Lymphocyte Count 1.51 X10^3/uL (0.83-4.51); Absolute Neutrophil Count 4.1 X10^3/uL (2.0-7.7); Basophil# 0.03 X10^3/uL; Basophil% 0.5 % (0-1); Eosinophil# 0.04 X10^3/uL; Eosinophils% 0.6 % (0-5); Hematocrit 37.3 % (37-47); Lymphocyte # 1.51 X10^3/ul (0.83-4.51); Lymphocyte % 24.5 % (19-41); Mean Corp Hgb Conc 32.2 g/dL (32-36); Mean Corpuscular Hgb 30.5 pg (27.0-32.0); Mean Corpuscular Volume 94.7 fL (81-99); Monocyte# 0.46 X10^3/uL; Monocyte% 7.5 % (0-10); NRBC Flagged by Analyzer 0 % (0-5); Neutrophil # 4.12 X10^3/uL (2.7-7.7); Neutrophil % 66.7 % (47-70); Platelet Count 272 K/mm3 (150-450); RBC Distribution Width CV 12.9 % (11.6-14.6); RBC Distribution Width SD 44.4 fl (35.1-43.9); Red Blood Count 3.94 M/mm3 (4.2-5.4); White Blood Count 6.2 K/mm3 (4.4-11.0)
--- NOTE | 2021-01-03 20:20 | RAD_ITS ---
HISTORY: altered mental status EXAMINATION/TECHNIQUE: XR Chest 1 View: Portable AP upright chest x-ray COMPARISON: 07/18/20 FINDINGS: LINES/DEVICES: None. LUNGS: No consolidation, edema or effusion. No pneumothorax. MEDIASTINUM AND CARDIOVASCULAR STRUCTURES: Cardiac silhouette not enlarged. Central airways and mediastinal contour are unremarkable. BONES AND SOFT TISSUES: No acute bony abnormalities. RAD/Chest 1 View (Portable) IMPRESSION: No radiographic evidence of acute cardiopulmonary disease. at 2059 Reported and signed by: Yang Landeros MD Electronically Signed: Yang Landeros MD at 20:57 EDT Tel , Service support ,
[2021-01-03 20:22] LABS: Color, Urine Straw (Yellow); Glucose, Dipstick Normal (Normal); Ketone-Dipstick Negative (Negative); Leukocyte Esterase-Dipstick Negative /ul (Negative); Nitrite-Dipstick Negative (Negative); Occult Blood-Urine Negative /ul (Negative); Protein-Dipstick 30 mg/dl (Negative); Urine Bilirubin Dipstick Negative (Negative); Urine Clarity Clear (Clear); Urine Urobilinogen Normal (Normal)
--- NOTE | 2021-01-03 20:23 | CT_ITS ---
HISTORY: altered mental status TECHNIQUE: Multiple axial images were obtained of the brain without intravenous contrast. A radiation dose optimization technique was used for this scan. IV Contrast dosage and agent: None. COMPARISON: 07/10/18 FINDINGS: # of images incl. paperwork: 225 PARANASAL SINUSES AND MASTOID AIR CELLS: Clear. INTRACRANIAL HEMORRHAGE: None. BRAIN PARENCHYMA: No CT evidence of stroke. No intracranial masses. There is preservation of the gregorio/white matter interface. Posterior fossa structures are unremarkable. There is hypoattenuation of the periventricular white matter. Chronic involutional changes are noted. CSF SPACES: Appropriate for age. There is no hydrocephalus. MASS EFFECT: None. CALVARIUM: No acute fracture. CT/Brain/Head without Contrast IMPRESSION: Chronic involutional and white matter changes. No acute intracranial process. Individualized dose optimization techniques were used for this CT. at 2101 Reported and signed by: Yang Landeros MD Electronically Signed: Yang Landeros MD at 21:00 EDT Tel , Service support ,
[2021-01-03 20:35] LABS: ALB/GLOB Ratio 1.1 RATIO (0.9-2.4); AST(SGOT) 21 U/L (15-37); Alanine Aminotransfer ALT/SGPT 31 U/L (13-56); Albumin, Serum 3.4 g/dL (3.2-5.0); Alkaline Phosphatase 56 U/L (45-117); Anion Gap 3 (5-15); BUN 13 mg/dL (7-18); BUN/Creat Ratio 22.9 RATIO (10-20); Calcium,Total 8.8 mg/dL (8.5-10.1); Chloride 103 mmol/L (98-107); Creatinine, Serum 0.57 mg/dL (0.55-1.02); EST Glomerular Filtration Rate 111 mL/min (>60); Est Glom Filt Rate - Afr Amer 134 mL/min (>60); Estimated Creatinine Clearance 46.75 ml/min; Glucose 108 mg/dL (74-106); Potassium 3.6 mmol/L (3.5-5.1); Protein, Total 6.4 g/dL (6.4-8.2); Sodium Level 137 mmol/L (136-145); Troponin-I HS 8.2 pg/mL (3.0-53.7)
[2021-01-03 20:43] VITALS: BP 203/71; PULSE 74; RESP 10; O2SAT 96
[2021-01-03] MEDS: DiphenhydrAMINE 50 MG/ML Syringe 25 MG IV (22:15)
[2021-01-03] MEDS: LORazepam 2 MG/ML Syringe 0.5 MG IV (22:16)
[2021-01-03 22:38] VITALS: BP 217/76
[2021-01-03 23:11] LABS: Amphetamine Urine VISTA NEGATIVE (<1000 ng/mL); Barbiturate Urine VISTA NEGATIVE (< 200 ng/mL); Benzodiazepine Urine VISTA NEGATIVE (< 200 ng/mL); Cocaine Urine VISTA NEGATIVE (< 300 ng/mL); Ecstacy Urine VISTA NEGATIVE (< 500 ng/mL); Methadone Urine VISTA NEGATIVE (< 300 ng/mL); PCP Urine VISTA NEGATIVE (< 25 ng/mL); THC Urine VISTA NEGATIVE (< 50 ng/mL); Vista UDS pH Range 7
[2021-01-03 23:35] VITALS: BP 199/80
[2021-01-03] MEDS: hydrALAZINE 20 MG/ML Vial 10 MG IV (23:37)
--- NOTE | 2021-01-03 23:52 | NURSING ---
CALLED CRISIS AT [phone]
[2021-01-03 23:55] VITALS: BP 188/72
[2021-01-04 01:22] VITALS: BP 113/41; PULSE 68; RESP 16; O2SAT 96
[2021-01-04 03:00] VITALS: RESP 16
[2021-01-04 03:41] VITALS: BP 130/64; PULSE 65; RESP 16; O2SAT 95
[2021-01-04 05:21] LABS: Bedside Glucose 105 mg/dL (70-110)
[2021-01-04 06:24] VITALS: BP 152/61; PULSE 67; RESP 16; O2SAT 95
--- NOTE | 2021-01-04 06:30 | ED.RN ---
Attempted to call report to [facility], no answer.
--- NOTE | 2021-01-04 07:08 | ED.RN ---
Spouse calls ER after PT has left. Spouse was aware that PT was going to [facility] at 0330 when she was accepted and he was called by Jodi. Spouse had previously placed a call to a family friend (Dr. Wolfe, [facility] MD) who wants PT to go to a facility that has medical and psychiatry available because this family friend physician feels there is a medical compontent as well as psych. After speaking with Sharyn Castrejon RN, spouse was made aware that PT has left our facility and we are unable to change her destination. He was made aware that he would need to speak with [facility].
[2021-01-04 07:12] VITALS: BP 152/61; PULSE 67; RESP 16; TEMP 36.9; O2SAT 95
== END ==
PROVIDERS: Emergency Provider Student in an Organized Health Care Education/Training Program; PCP Family Medicine
DX: R41.0 Disorientation, unspecified (principal); I10 Essential (primary) hypertension; E11.9 Type 2 diabetes mellitus without complications; M19.90 Unspecified osteoarthritis, unspecified site; Z79.899 Other long term (current) drug therapy
CPT/HCPCS: 70450; 71045; 80053; 80307; 81001; 82077; 82962; 84484; 85025; 87426; 93005; 96374; 96375; 99285; A4216

== ENCOUNTER → 2021-01-18 09:44 | Outpatient (CLI) | payer MEDICARE, OTHER, SELFPAY ==
[2021-01-18 12:23] LABS: AST(SGOT) 24 U/L (15-37); Alanine Aminotransfer ALT/SGPT 37 U/L (13-56); Albumin, Serum 3.3 g/dL (3.2-5.0); Alkaline Phosphatase 67 U/L (45-117); Anion Gap 6 (5-15); BUN 15 mg/dL (7-18); BUN/Creat Ratio 18.8 RATIO (10-20); Calcium,Total 8.7 mg/dL (8.5-10.1); Chloride 101 mmol/L (98-107); EST Glomerular Filtration Rate 75 mL/min (>60); Est Glom Filt Rate - Afr Amer 90 mL/min (>60); Globulin 3.2 g/dL (2.2-4.2); Glucose 189 mg/dL (74-106); Potassium 3.3 mmol/L (3.5-5.1); Protein, Total 6.5 g/dL (6.4-8.2); Sodium Level 136 mmol/L (136-145)
[2021-01-18 12:29] LABS: Hemoglobin A1c 6.9 % (3.8-5.6)
== END ==
PROVIDERS: PCP Family Medicine; Referring Provider Internal Medicine Endocrinology, Diabetes & Metabolism; Visit Provider Internal Medicine Endocrinology, Diabetes & Metabolism
DX: E11.21 Type 2 diabetes mellitus with diabetic nephropathy (principal)
CPT/HCPCS: 36415; 80053; 83036

== ENCOUNTER → 2021-02-07 13:11 | Outpatient (CLI) | payer MEDICARE, OTHER, SELFPAY ==
--- NOTE | 2021-02-07 13:14 | BI_ITS ---
MAMMOGRAPHY - BILATERAL SCREENING REASON FOR EXAM: Female, 75 years old. Routine annual screening examination. PERTINENT HISTORY: Non-contributory. TECHNIQUE: Digital bilateral breast mundo (3D mammographic acquisition) in the CC and MLO projections. 2-D mediolateral oblique (MLO) and craniocaudad (CC) views of both breasts were obtained. CAD: Full Field Digital Mammography with Computer Added Detection was performed. COMPARISON: Comparison is made with prior study 02/01/2020 and 12/11/2018. FINDINGS: Breast Composition: The breasts are heterogeneously dense, which may obscure small masses. There are no dominant masses or suspicious calcifications. Slight asymmetry of breast tissue in the slightly upper lateral aspect of the left breast. Correlation with ultrasound is recommended. No other significant abnormalities are identified. BI/SCRN MAMM (CAD)W/MUNDO BILAT IMPRESSION: Slight asymmetry of breast tissue in the upper lateral aspect of the left breast. Correlation with ultrasound is recommended. ASSESSMENT CATEGORY: BIRADS Category 0: Incomplete. Need additional imaging evaluation. A letter regarding these results will be sent to the patient by the facility within 30 days. Approximately 10% of breast cancers are not detected by mammography. A normal mammogram should not delay biopsy of a clinically suspicious abnormality. [id number] Electronically Signed: Jim Arroyo MD at 14:45 EDT , Service support ,
== END ==
PROVIDERS: PCP Family Medicine; Referring Provider Obstetrics & Gynecology; Visit Provider Obstetrics & Gynecology
DX: Z12.31 Encounter for screening mammogram for malignant neoplasm of breast (principal); N64.89 Other specified disorders of breast; R30.0 Dysuria
CPT/HCPCS: 77063; 77067; 87086; 87088

== ENCOUNTER → 2021-02-08 12:59 | Outpatient (CLI) | payer MEDICARE, OTHER, SELFPAY ==
--- NOTE | 2021-02-08 13:01 | US_ITS ---
STUDY: ULTRASOUND BREAST - LEFT REASON FOR EXAM: Female, 75 years old. Abnormal screening mammogram. TECHNIQUE: Axial and longitudinal images of the LEFT breast were performed with a high resolution ultrasound transducer. # OF IMAGES: 53 COMPARISON: Comparison is made with prior mammogram dated 02/07/2021. FINDINGS: LEFT Breast: The mammographic abnormality corresponds to a 1.4 cm x 0.9 cm x 0.5 cm well-defined hypoechoic solid nodule at the 3 o''clock position of the breast at 4 cm from nipple. A biopsy is recommended. US/Breast Limited Unilateral IMPRESSION: 1.4 cm x 0.9 cm x 0.5 cm well-defined hypoechoic solid nodule at the 3 o''clock position of the breast at 4 cm from the nipple.. A biopsy is recommended. ASSESSMENT CATEGORY: BIRADS Category 4: Suspicious - Biopsy Should Be Considered. A letter regarding these results will be sent to the patient by the facility within 30 days. Electronically Signed: Jim Arroyo MD at 14:49 EDT , Service support ,
== END ==
PROVIDERS: PCP Family Medicine; Visit Provider Obstetrics & Gynecology
DX: N63.20 Unspecified lump in the left breast, unspecified quadrant (principal)
CPT/HCPCS: 76642

== ENCOUNTER → 2021-02-12 13:20 | Outpatient (CLI) | payer MEDICARE, OTHER, SELFPAY ==
--- NOTE | 2021-02-12 | BRBX_PTH ---
PATIENT: MADELYN HIGUERA LOC: [facility] U#:[id number] AGE/SX: 79/F ROOM: RE02/12/[address]: Dr. Garrison Alvarez MD : 1945 BED: DIS: SPEC #: [id number] RECD: 02/12/21 14:21 STATUS: CARY SMITH #: [id number] KLARISSA: 02/12/21 00:[address]: Garrison Alvarez DEPT: SURGICAL PATHOLOGY RECD BY: Obdulio Simon ENTERED: 02/13/21 12:08 SP TYPE: BREAST BX OTHR DR: Dr. Hugo Julio MD Tissues: Left breast, NOS Procedures: Surgery Specimen Level IV HEADER OPERATION: Left breast biopsy PRE-OP DIAGNOSIS: Left breast mass TISSUE SUBMITTED: Left breast tissue FIXATION TIME: 31 hours MICROSCOPIC DIAGNOSIS Left breast mass, core biopsy: Collagenized stroma. No evidence of malignancy. AM:perla 02/14/2021 MICROSCOPIC DESCRIPTION Slides are reviewed. GROSS DESCRIPTION Received in fixative is one container labeled with the patient's name and designated left breast. The specimen consists of multiple irregular fragments of light hernandez soft tissue that in aggregate measure 1.5 x 0.5 x 0.1 cm. The specimen is totally submitted in one cassette. / AM:perla 02/13/2021 TC:5 CPT: 07080
--- NOTE | 2021-02-12 13:24 | BI_ITS ---
MAMMOGRAPHY - UNILATERAL DIAGNOSTIC: LEFT BREAST REASON FOR EXAM: Female, 75 years old. Post biopsy clip placement. PERTINENT HISTORY: Small nodular density at the 2 o''clock position of the breast. TECHNIQUE: MLO and craniocaudad views of the left breast were obtained. CAD: Full Field Digital Mammography with Computer Added Detection was performed. COMPARISON: Comparison is made with prior mammogram dated 02/07/2021. FINDINGS: Breast Composition: The breasts are heterogeneously dense, which may obscure small masses. A tissue clip marker is seen in the deep central lateral aspect of the left breast. No other significant abnormalities are identified. BI/DIAG MAMM W/CAD, UNILAT IMPRESSION: Status post ultrasound-guided breast biopsy with tissue clip marker seen in the slightly central lateral aspect of the left breast. ASSESSMENT CATEGORY: BIRADS Category 2: Benign. A letter regarding these results will be sent to the patient by the facility within 30 days. Approximately 10% of breast cancers are not detected by mammography. A normal mammogram should not delay biopsy of a clinically suspicious abnormality. Electronically Signed: Jim Arroyo MD at 14:07 EDT , Service support ,
== END ==
PROVIDERS: PCP Family Medicine; Referring Provider Surgery; Visit Provider Surgery
DX: N63.20 Unspecified lump in the left breast, unspecified quadrant (principal); R92.8 Other abnormal and inconclusive findings on diagnostic imaging of breast
CPT/HCPCS: 77065; 88305

== ENCOUNTER → 2021-02-28 11:11 | Outpatient (CLI) | payer MEDICARE, OTHER, SELFPAY ==
[2021-02-28 13:14] LABS: Anion Gap 7 (5-15); BUN 12 mg/dL (7-18); BUN/Creat Ratio 14.8 RATIO (10-20); Calcium,Total 8.6 mg/dL (8.5-10.1); Chloride 104 mmol/L (98-107); Creatinine, Serum 0.81 mg/dL (0.55-1.02); EST Glomerular Filtration Rate 73 mL/min (>60); Est Glom Filt Rate - Afr Amer 89 mL/min (>60); Glucose 168 mg/dL (74-106); Magnesium 2.4 mg/dL (1.6-2.6); Sodium Level 141 mmol/L (136-145)
== END ==
PROVIDERS: PCP Family Medicine; Referring Provider Family Medicine; Visit Provider Family Medicine
DX: R53.83 Other fatigue (principal)
CPT/HCPCS: 36415; 80048; 83735

== ENCOUNTER → 2021-03-08 10:51 | Outpatient (CLI) | payer MEDICARE, OTHER, SELFPAY ==
[2021-03-08 12:36] LABS: ALB/GLOB Ratio 0.8 RATIO (0.9-2.4); AST(SGOT) 30 U/L (15-37); Alanine Aminotransfer ALT/SGPT 38 U/L (13-56); Alkaline Phosphatase 131 U/L (45-117); Anion Gap 8 (5-15); BUN 12 mg/dL (7-18); BUN/Creat Ratio 11.9 RATIO (10-20); Calcium,Total 8.3 mg/dL (8.5-10.1); Chloride 92 mmol/L (98-107); Creatinine, Serum 1.01 mg/dL (0.55-1.02); EST Glomerular Filtration Rate 57 mL/min (>60); Est Glom Filt Rate - Afr Amer 69 mL/min (>60); Globulin 3.6 g/dL (2.2-4.2); Glucose 202 mg/dL (74-106); Potassium 4.5 mmol/L (3.5-5.1); Protein, Total 6.6 g/dL (6.4-8.2); Sodium Level 126 mmol/L (136-145)
== END ==
PROVIDERS: Nurse Practitioner Family; PCP Family Medicine; Referring Provider Family Medicine; Visit Provider Family Medicine
DX: Z13.29 Encounter for screening for other suspected endocrine disorder (principal); R53.83 Other fatigue
CPT/HCPCS: 36415; 80053; 84443

== ENCOUNTER → 2021-03-14 08:56 | Outpatient (CLI) | payer MEDICARE, OTHER, SELFPAY ==
[2021-03-14 10:36] LABS: ALB/GLOB Ratio 0.9 RATIO (0.9-2.4); AST(SGOT) 18 U/L (15-37); Alanine Aminotransfer ALT/SGPT 23 U/L (13-56); Albumin, Serum 3.1 g/dL (3.2-5.0); Alkaline Phosphatase 131 U/L (45-117); Anion Gap 7 (5-15); BUN 12 mg/dL (7-18); BUN/Creat Ratio 17.9 RATIO (10-20); Calcium,Total 8.9 mg/dL (8.5-10.1); Chloride 88 mmol/L (98-107); Creatinine, Serum 0.67 mg/dL (0.55-1.02); EST Glomerular Filtration Rate 91 mL/min (>60); Est Glom Filt Rate - Afr Amer 111 mL/min (>60); Globulin 3.6 g/dL (2.2-4.2); Glucose 111 mg/dL (74-106); Potassium 5.2 mmol/L (3.5-5.1); Protein, Total 6.7 g/dL (6.4-8.2); Sodium Level 120 mmol/L (136-145)
[2021-03-14 10:55] LABS: Osmolality, Serum 252 mOsm/KG (280-301)
[2021-03-14 15:10] LABS: Osmolality, Urine 177 mOsm/KG
[2021-03-14 15:14] LABS: Urine Sodium 29 mmol/L (Not Establ.)
== END ==
PROVIDERS: PCP Family Medicine; Referring Provider Family Medicine; Visit Provider Family Medicine
DX: R79.89 Other specified abnormal findings of blood chemistry (principal)
CPT/HCPCS: 36415; 80053; 82570; 83930; 83935; 84300

== ENCOUNTER → 2021-03-19 08:56 | Outpatient (CLI) | payer MEDICARE, OTHER, SELFPAY ==
[2021-03-19 11:13] LABS: AST(SGOT) 16 U/L (15-37); Alanine Aminotransfer ALT/SGPT 24 U/L (13-56); Albumin, Serum 3.1 g/dL (3.2-5.0); Alkaline Phosphatase 135 U/L (45-117); Anion Gap 10 (5-15); BUN 12 mg/dL (7-18); BUN/Creat Ratio 18.1 RATIO (10-20); Calcium,Total 8.6 mg/dL (8.5-10.1); Chloride 93 mmol/L (98-107); Creatinine, Serum 0.66 mg/dL (0.55-1.02); EST Glomerular Filtration Rate 92 mL/min (>60); Est Glom Filt Rate - Afr Amer 112 mL/min (>60); Glucose 98 mg/dL (74-106); Potassium 4.4 mmol/L (3.5-5.1); Protein, Total 6.1 g/dL (6.4-8.2); Sodium Level 129 mmol/L (136-145)
[2021-03-19 11:34] LABS: Osmolality, Serum 270 mOsm/KG (280-301)
[2021-03-19 12:57] LABS: Osmolality, Urine 183 mOsm/KG
[2021-03-19 12:59] LABS: Urine Sodium 32 mmol/L (Not Establ.)
[2021-03-28 17:26] LABS: Aldosterone, Serum 2.3 ng/dL (0.0-30.0)
== END ==
PROVIDERS: PCP Family Medicine; Referring Provider Family Medicine; Visit Provider Family Medicine
DX: N18.1 Chronic kidney disease, stage 1 (principal)
CPT/HCPCS: 36415; 80053; 82088; 82533; 83930; 83935; 84300

== ENCOUNTER → 2021-05-04 10:01 | Outpatient (CLI) | payer MEDICARE, OTHER, SELFPAY ==
[2021-05-04 12:17] LABS: ALB/GLOB Ratio 0.9 RATIO (0.9-2.4); AST(SGOT) 22 U/L (15-37); Alanine Aminotransfer ALT/SGPT 27 U/L (13-56); Albumin, Serum 3.2 g/dL (3.2-5.0); Alkaline Phosphatase 119 U/L (45-117); Anion Gap 6 (5-15); BUN 13 mg/dL (7-18); BUN/Creat Ratio 15.4 RATIO (10-20); Calcium,Total 8.9 mg/dL (8.5-10.1); Chloride 102 mmol/L (98-107); Creatinine, Serum 0.84 mg/dL (0.55-1.02); EST Glomerular Filtration Rate 70 mL/min (>60); Est Glom Filt Rate - Afr Amer 85 mL/min (>60); Globulin 3.5 g/dL (2.2-4.2); Glucose 168 mg/dL (74-106); Potassium 3.3 mmol/L (3.5-5.1); Protein, Total 6.7 g/dL (6.4-8.2); Sodium Level 137 mmol/L (136-145)
== END ==
PROVIDERS: PCP Family Medicine; Referring Provider Internal Medicine Endocrinology, Diabetes & Metabolism; Visit Provider Internal Medicine Endocrinology, Diabetes & Metabolism
DX: E11.21 Type 2 diabetes mellitus with diabetic nephropathy (principal)
CPT/HCPCS: 36415; 80053

== ENCOUNTER → 2021-05-18 08:53 | Outpatient (CLI) | payer MEDICARE, OTHER, SELFPAY ==
[2021-05-18 10:01] LABS: Color, Urine Yellow (Yellow); Glucose, Dipstick Normal (Normal); Ketone-Dipstick Negative (Negative); Leukocyte Esterase-Dipstick 100 /ul (Negative); Nitrite-Dipstick Negative (Negative); Occult Blood-Urine Negative /ul (Negative); Protein-Dipstick 30 mg/dl (Negative); Urine Bilirubin Dipstick Negative (Negative); Urine Clarity Clear (Clear); Urine Urobilinogen Normal (Normal)
[2021-05-18 12:45] LABS: Anion Gap 6 (5-15); BUN 16 mg/dL (7-18); BUN/Creat Ratio 22.9 RATIO (10-20); Chloride 102 mmol/L (98-107); EST Glomerular Filtration Rate 87 mL/min (>60); Est Glom Filt Rate - Afr Amer 105 mL/min (>60); Glucose 103 mg/dL (74-106); Magnesium 2.5 mg/dL (1.6-2.6); Potassium 3.9 mmol/L (3.5-5.1); Sodium Level 136 mmol/L (136-145)
== END ==
PROVIDERS: PCP Family Medicine
DX: R30.0 Dysuria (principal); N18.1 Chronic kidney disease, stage 1
CPT/HCPCS: 36415; 80048; 81002; 83735

== ENCOUNTER → 2021-05-30 10:59 | Outpatient (CLI) | payer MEDICARE, OTHER, SELFPAY ==
[2021-05-30 11:44] VITALS: BP 196/105; PULSE 65; RESP 18; TEMP 37.3; O2SAT 100; BMI 31.1
--- NOTE | 2021-05-30 12:03 | RAD_ITS ---
FLUOROSCOPICALLY GUIDED LUMBAR PUNCTURE HISTORY: The patient is a 75 years year old Female who presented with neurologic symptoms. CONSENT: Risks, benefits, treatment options, potential complications and personnel to be involved were discussed (including the risks of radiation exposure, contrast and anesthesia administration, and any equipment needed for the procedure to ensure best possible outcome) with the patient and all questions were answered and consent was obtained prior to procedure. MEDICATION RECONCILIATION: The patient''s medications and allergies were reviewed in the electronic medical record and reconciled to the proposed procedure/treatment. TIME OUT: An audible time out was performed immediately prior to the start of the procedure with the entire procedure team to confirm the patient''s identity (name, medical record number), anatomy (including marking of site and side), type of procedure to be performed, patient position, procedure consent form, relevant diagnostic and radiology test results, antibiotic administration, safety precautions, and procedure-specific equipment was present. ANESTHESIA: Local anesthesia: 1% Lidocaine was administered. IMAGE GUIDANCE: Fluoroscopic guidance was used. FLUOROSCOPIC TIME: 2:18 minutes/seconds. POSITIONING: The patient was placed prone on the fluoroscopy table. The paraspinal region was then prepped and draped in the usual sterile fashion. PROCEDURE DETAILS: Counting reference: Lumbosacral junction. For the purposes of this report, L5-S1 is considered the last lumbar type disc space and L4-5 is considered the level of the iliac crest. Access Site: 22 gauge spinal needle from a Right paramedian approach at the L2-L3 Level. Procedure Details: Using sterile procedure, local anesthesia was introduced to the skin and subcutaneous tissues as outlined above. Under fluoroscopic guidance, the needle was carefully advanced into the lumbar subarachnoid space resulting in free flow of CSF. Number and Type of Removed Specimens: 4 vials of CSF Diagnostic Volume: 12.5 mL of blood tainted CSF was withdrawn and forwarded to the lab for analysis. CSF Color: blood tainted CONCLUSION: The patient tolerated the procedure with no immediate complications. COMPLICATIONS: a) Significant Patient Complication: None. b) Complications during the procedure: None. Estimated blood loss: 0 ml ATTENDING RADIOLOGIST: Jose Luis Esparza MD. RAD/Dx Lumbar Puncture w/IMG Guide IMPRESSION: SUCCESSFUL FLUOROSCOPICALLY GUIDED LUMBAR PUNCTURE. 12.5 mL of blood tainted CSF withdrawn and forwarded to the lab for analysis. Electronically Signed: Bernard Esparza MD at 16:11 EST Tel , Service support ,
[2021-05-30] MEDS: Lidocaine 2% (5ml sdv) 5 ML VIAL.MPF INFILT (12:25)
--- NOTE | 2021-05-30 12:44 | CYSPIN_PTH ---
PATIENT: MADELYN HIGUERA LOC: [facility] U#:[id number] AGE/SX: 79/F ROOM: RE05/30/[address]: Dr. Hugo Julio MD : 1945 BED: DIS: SPEC #: [id number] RECD: 05/30/21 13:51 STATUS: CARY LUIS #: [id number] KLARISSA: 05/30/21 12:[address]: Hugo Julio DEPT: CYTOLOGY RECD BY: Agata Kaplan Tissues: Cerebrospinal Fluid Procedures: Pap Stain (control) Special Stain Group II Cytospin Fluid HEADER OPERATION: Lumbar puncture PRE-OP DIAGNOSIS: TISSUE SUBMITTED: Cerebrospinal fluid for cytology DIAGNOSIS CYTOLOGY Cerebrospinal fluid for cytology (cytospin): Negative for malignant cells. Bloody specimen. SHASHA:perla 05/31/2021 CYTOLOGY STUDY Slides are reviewed. CYTOLOGY GROSS Received is 1 ml of red cloudy fluid labeled with the patient's name and and designated per the requisition as CSF. Submitted for cytology preparation. / perla 05/30/2021 TC:5 CPT: 94920
[2021-05-30 13:20] LABS: Cytology, Body Fluid / CSF SEE PATHOLOGY REPORT
[2021-05-30 13:25] VITALS: BP 195/55; PULSE 67; RESP 18; O2SAT 100
[2021-05-30 13:41] LABS: Body Fluid Mononuclear WBC # 0.014 10^3/uL; Body Fluid Polynuclear WBC # 0.014 10^3/uL; Total Cell Count CSF 0.028 10^3/uL; White Count, CSF 0.028 10^3/uL (0.000-0.005)
[2021-05-30 14:02] LABS: Glucose Spinal Fluid 79 mg/dL (40-75)
[2021-05-30 14:36] LABS: LDH,Body Fluid 39 Units/l (Not Establ.)
[2021-05-30 15:02] LABS: Appearance CSF (character) CLOUDY (Clear); Auto B Fluid Analyzer BKGD Ct COUNTS W/IN LIMITS (W/IN LIMITS); CSF Color RED (Colorless); Tested Tube # 1
[2021-05-30 15:08] LABS: RBC Count, Spinal Fluid 24952 /mm-3 (None seen); White Count, CSF 14894 /mm-3 (0 - 5)
[2021-05-30 15:29] LABS: Body Fluid QC Type(s) BF1,BF2; Lymphocytes,CSF 20 % (40 - 80); Neutrophils,CSF 80 % (0 - 6)
[2021-05-30 15:31] LABS: Appearance CSF (character) CLOUDY (Clear); Auto B Fluid Analyzer BKGD Ct COUNTS W/IN LIMITS (W/IN LIMITS); Body Fluid QC Type(s) BF1,BF2; CSF Color RED (Colorless); Tested Tube # 4
[2021-05-31 13:39] LABS: Pathologist Review Reviewed
[2021-05-31 13:40] LABS: Pathologist Review Reviewed
[2021-06-05 11:08] LABS: HSV 1 By PCR Negative (Negative)
[2021-06-05 17:36] LABS: HSV 2 By PCR Negative (Negative)
== END | disposition home or self-care (01) ==
PROVIDERS: PCP Family Medicine; Referring Provider Family Medicine; Visit Provider Family Medicine
DX: R41.89 Other symptoms and signs involving cognitive functions and awareness (principal)
CPT/HCPCS: 62328; 82945; 83615; 84157; 87015; 87070; 87101; 87116; 87205; 87206; 87529; 88108; 88313; 89050; 89051

== ENCOUNTER 2021-06-07 12:27 | Outpatient (CLI) | payer MEDICARE, OTHER, SELFPAY ==
--- NOTE | 2021-06-07 12:50 | MRI_ITS ---
STUDY: MRI BRAIN WITH AND WITHOUT CONTRAST REASON FOR EXAM: Female, 75 years old. continued confusion/mental status changes TECHNIQUE: Standardized multiplanar fat and water weighted pulse sequences were obtained. IV 13mL Dotarem was administered for the contrast portion of the examination. COMPARISON: None. FINDINGS: Normal size of the ventricles and extra-axial spaces for the patient''s age. There are multiple white matter hyperintensities, distributed throughout the deep white matter tracts of the cerebral hemispheres, consistent with mild chronic white matter ischemic changes. Normal bilateral basal ganglia. Normal thalami. There is no extra-axial fluid accumulation. There is no enhancing intra-axial or extra-axial abnormality. There is enlargement of the sella turcica with increased CSF within the sella and flattening of the pituitary gland consistent with an empty sellar syndrome. Normal infundibular stalk, hypothalamus, and optic chiasm. Normal tectal plate and pineal gland. There are chronic white matter ischemic changes of the parvez. The midbrain and medulla are otherwise normal. Normal cerebellum. Normal basal cisterns. MRI/Brain W/WO Contrast IMPRESSION: No acute intracranial abnormality or masses. Mild chronic microvascular ischemic changes. Electronically Signed: Noe Webber MD at 10:33 EST Tel , Service support ,
== END 2021-06-07 23:59 | disposition short-term general hospital (02) ==
LOC: MRI 12:30
PROVIDERS: PCP Family Medicine; Referring Provider Family Medicine; Visit Provider Family Medicine
DX: R41.82 Altered mental status, unspecified (principal)
CPT/HCPCS: 70553; A9575

== ENCOUNTER 2021-06-12 16:27 | Outpatient (CLI) | payer MEDICARE, OTHER, SELFPAY | END 2021-06-12 23:59 | disposition short-term general hospital (02) | PROVIDERS: PCP Family Medicine; Referring Provider Family Medicine; Visit Provider Family Medicine | DX: R32 Unspecified urinary incontinence (principal) | CPT/HCPCS: 87086; 87088 ==

== ENCOUNTER 2021-06-21 11:13 | Outpatient (CLI) | payer MEDICARE, OTHER, SELFPAY ==
[2021-06-21 11:18] LABS: Bacteria 0 SEEN /hpf (None Seen); Mucous, Urine 0 SEEN /hpf (<or=2+)
[2021-06-21 15:23] LABS: Color, Urine Yellow (Yellow); Glucose, Dipstick Normal (Normal); Ketone-Dipstick Negative (Negative); Leukocyte Esterase-Dipstick 500 /ul (Negative); Nitrite-Dipstick Negative (Negative); Occult Blood-Urine Negative /ul (Negative); Protein-Dipstick 100 mg/dl (Negative); Urine Bilirubin Dipstick Negative (Negative); Urine Clarity Sl. Cloudy (Clear); Urine Urobilinogen Normal (Normal)
[2021-06-21 15:27] LABS: Red Blood Cells-Urine 0-5 SEEN /hpf (0-5); Squamous Epithelial Cells - UA 5-10 SEEN /hpf (5-10); White Blood Cells 10-25 SEEN /hpf (0-5)
[2021-06-21 15:47] LABS: AST(SGOT) 19 U/L (15-37); Alanine Aminotransfer ALT/SGPT 25 U/L (13-56); Albumin, Serum 3.2 g/dL (3.2-5.0); Alkaline Phosphatase 100 U/L (45-117); Anion Gap 7 (5-15); BUN 13 mg/dL (7-18); BUN/Creat Ratio 18.4 RATIO (10-20); Calcium,Total 7.7 mg/dL (8.5-10.1); Chloride 96 mmol/L (98-107); Creatinine, Serum 0.71 mg/dL (0.55-1.02); EST Glomerular Filtration Rate 86 mL/min (>60); Est Glom Filt Rate - Afr Amer 104 mL/min (>60); Globulin 3.3 g/dL (2.2-4.2); Glucose 139 mg/dL (74-106); Potassium 3.9 mmol/L (3.5-5.1); Protein, Total 6.5 g/dL (6.4-8.2); Sodium Level 129 mmol/L (136-145)
[2021-06-21 15:59] LABS: Hemoglobin A1c 6.9 % (3.8-5.6)
== END 2021-06-21 23:59 | disposition short-term general hospital (02) ==
LOC: MTLAB 11:14
PROVIDERS: PCP Family Medicine; Referring Provider Family Medicine; Visit Provider Family Medicine
DX: R35.0 Frequency of micturition (principal); E11.9 Type 2 diabetes mellitus without complications
CPT/HCPCS: 36415; 80053; 81001; 83036

== ENCOUNTER 2021-06-26 10:36 | Outpatient (CLI) | payer MEDICARE, OTHER, SELFPAY ==
[2021-06-26 12:38] LABS: Anion Gap 7 (5-15); BUN 16 mg/dL (7-18); BUN/Creat Ratio 22.9 RATIO (10-20); Calcium,Total 7.9 mg/dL (8.5-10.1); Chloride 96 mmol/L (98-107); EST Glomerular Filtration Rate 87 mL/min (>60); Est Glom Filt Rate - Afr Amer 105 mL/min (>60); Glucose 171 mg/dL (74-106); Potassium 4.4 mmol/L (3.5-5.1); Sodium Level 127 mmol/L (136-145)
[2021-06-26 13:05] LABS: Osmolality, Serum 274 mOsm/KG (280-301); Osmolality, Urine 240 mOsm/KG
== END 2021-06-26 23:59 | disposition short-term general hospital (02) ==
PROVIDERS: PCP Family Medicine; Referring Provider Internal Medicine Endocrinology, Diabetes & Metabolism; Visit Provider Internal Medicine Endocrinology, Diabetes & Metabolism
DX: E87.1 Hypo-osmolality and hyponatremia (principal); M81.0 Age-related osteoporosis without current pathological fracture
CPT/HCPCS: 36415; 80048; 83930; 83935

== ENCOUNTER 2021-06-29 18:13 | Outpatient (CLI) | payer MEDICARE, OTHER, SELFPAY | END 2021-06-29 23:59 | disposition short-term general hospital (02) | PROVIDERS: PCP Family Medicine; Visit Provider Family Medicine | DX: U07.1 COVID-19 (principal) | CPT/HCPCS: 87635; U0003; U0005 ==

== ENCOUNTER 2021-07-16 10:49 | Outpatient (CLI) | payer MEDICARE, OTHER, SELFPAY ==
[2021-07-16 12:24] LABS: Vitamin D,25 Hydroxy 67.7 ng/mL
[2021-07-16 12:40] LABS: ALB/GLOB Ratio 0.9 RATIO (0.9-2.4); AST(SGOT) 27 U/L (15-37); Alanine Aminotransfer ALT/SGPT 39 U/L (13-56); Albumin, Serum 2.9 g/dL (3.2-5.0); Alkaline Phosphatase 115 U/L (45-117); Anion Gap 8 (5-15); BUN 12 mg/dL (7-18); BUN/Creat Ratio 19.6 RATIO (10-20); Calcium,Total 8.4 mg/dL (8.5-10.1); Chloride 100 mmol/L (98-107); Creatinine, Serum 0.61 mg/dL (0.55-1.02); EST Glomerular Filtration Rate 101 mL/min (>60); Est Glom Filt Rate - Afr Amer 123 mL/min (>60); Globulin 3.4 g/dL (2.2-4.2); Glucose 152 mg/dL (74-106); Potassium 3.5 mmol/L (3.5-5.1); Protein, Total 6.3 g/dL (6.4-8.2); Sodium Level 134 mmol/L (136-145)
[2021-07-16 16:35] LABS: Osmolality, Serum 281 mOsm/KG (280-301)
== END 2021-07-16 23:59 | disposition home or self-care (01) ==
PROVIDERS: PCP Family Medicine; Referring Provider Internal Medicine Endocrinology, Diabetes & Metabolism; Visit Provider Internal Medicine Endocrinology, Diabetes & Metabolism
DX: E21.1 Secondary hyperparathyroidism, not elsewhere classified (principal); E27.9 Disorder of adrenal gland, unspecified; E87.1 Hypo-osmolality and hyponatremia; E55.9 Vitamin D deficiency, unspecified; M81.0 Age-related osteoporosis without current pathological fracture
CPT/HCPCS: 36415; 80053; 82306; 83930; 83970

== ENCOUNTER 2021-07-25 10:20 | Outpatient (CLI) | payer MEDICARE, OTHER, SELFPAY ==
[2021-07-25 12:34] LABS: Anion Gap 5 (5-15); BUN 14 mg/dL (7-18); BUN/Creat Ratio 23.1 RATIO (10-20); Calcium,Total 8.6 mg/dL (8.5-10.1); Chloride 106 mmol/L (98-107); Creatinine, Serum 0.61 mg/dL (0.55-1.02); EST Glomerular Filtration Rate 102 mL/min (>60); Est Glom Filt Rate - Afr Amer 124 mL/min (>60); Glucose 187 mg/dL (74-106); Potassium 3.7 mmol/L (3.5-5.1); Sodium Level 136 mmol/L (136-145)
[2021-07-25 18:05] LABS: Osmolality, Urine 267 mOsm/KG
[2021-07-27 10:57] LABS: Prealbumin 24.2 mg/dL (20.0-40.0)
== END 2021-07-25 23:59 | disposition home or self-care (01) ==
PROVIDERS: PCP Family Medicine; Referring Provider Internal Medicine Endocrinology, Diabetes & Metabolism; Visit Provider Internal Medicine Endocrinology, Diabetes & Metabolism
DX: E11.21 Type 2 diabetes mellitus with diabetic nephropathy (principal); E87.1 Hypo-osmolality and hyponatremia; M81.0 Age-related osteoporosis without current pathological fracture
CPT/HCPCS: 36415; 80048; 82040; 83935; 84134

== ENCOUNTER 2021-08-03 09:38 | Outpatient (CLI) | payer MEDICARE, OTHER, SELFPAY ==
[2021-08-03 12:28] LABS: Anion Gap 4 (5-15); BUN 10 mg/dL (7-18); BUN/Creat Ratio 18.7 RATIO (10-20); Calcium,Total 8.1 mg/dL (8.5-10.1); Chloride 104 mmol/L (98-107); Creatinine, Serum 0.53 mg/dL (0.55-1.02); EST Glomerular Filtration Rate 119 mL/min (>60); Est Glom Filt Rate - Afr Amer 143 mL/min (>60); Glucose 94 mg/dL (74-106); Potassium 3.8 mmol/L (3.5-5.1); Sodium Level 139 mmol/L (136-145)
== END 2021-08-03 23:59 | disposition home or self-care (01) ==
LOC: MTLAB 09:39
PROVIDERS: PCP Family Medicine; Referring Provider Internal Medicine Endocrinology, Diabetes & Metabolism; Visit Provider Internal Medicine Endocrinology, Diabetes & Metabolism
DX: E11.21 Type 2 diabetes mellitus with diabetic nephropathy (principal)
CPT/HCPCS: 36415; 80048

== ENCOUNTER 2021-08-09 15:19 | Outpatient (CLI) | payer MEDICARE, OTHER, SELFPAY ==
[2021-08-09 18:01] LABS: Hematocrit 34.3 % (37-47); Hemoglobin 11.2 g/dL (12.0-15.0); Mean Corp Hgb Conc 32.7 g/dL (32-36); Mean Corpuscular Hgb 31.5 pg (27.0-32.0); Mean Corpuscular Volume 96.3 fL (81-99); Mean Platelet Vol. 9.3 fl (6.2-12.0); Platelet Count 291 K/mm3 (150-450); RBC Distribution Width CV 13.3 % (11.6-14.6); RBC Distribution Width SD 47.9 fl (35.1-43.9); Red Blood Count 3.56 M/mm3 (4.2-5.4); White Blood Count 5.5 K/mm3 (4.4-11.0)
[2021-08-09 18:22] LABS: Vitamin B12 1533 pg/mL (211-911)
[2021-08-09 20:30] LABS: AST(SGOT) 20 U/L (15-37); Alanine Aminotransfer ALT/SGPT 28 U/L (13-56); Albumin, Serum 3.5 g/dL (3.2-5.0); Alkaline Phosphatase 79 U/L (45-117); Bilirubin, Direct 0.11 mg/dL (0.00-0.30); Globulin 3.1 g/dL (2.2-4.2); Protein, Total 6.6 g/dL (6.4-8.2); Thyroid Stim Hormone (TSH) 1.37 uIU/mL (0.358-3.74)
[2021-08-22 17:28] LABS: Vitamin B1, Thiamine 150.5 nmol/L (66.5-200.0)
== END 2021-08-09 23:59 | disposition home or self-care (01) ==
LOC: MTLAB 15:20
PROVIDERS: PCP Family Medicine; Referring Provider Psychiatry & Neurology Neurology; Visit Provider Psychiatry & Neurology Neurology
DX: E11.9 Type 2 diabetes mellitus without complications (principal); G31.84 Mild cognitive impairment of uncertain or unknown etiology
CPT/HCPCS: 36415; 80076; 82607; 82746; 84425; 84443; 85027

== ENCOUNTER 2021-08-15 13:16 | Outpatient (CLI) | payer MEDICARE, OTHER, SELFPAY ==
--- NOTE | 2021-08-15 13:28 | BI_ITS ---
MAMMOGRAPHY - UNILATERAL DIAGNOSTIC: LEFT BREAST REASON FOR EXAM: Female, 76 years old. post breast biopsy -- left PERTINENT HISTORY: Non-contributory. TECHNIQUE: Digital examination. Mediolateral oblique (MLO) and craniocaudad (CC) views of the breast were obtained. CAD: CAD was performed on this study. COMPARISON: 02/07/2021 FINDINGS: Breast Composition: The breasts are heterogeneously dense, which may obscure small masses. There are no dominant masses or suspicious calcifications. Biopsy marking clip within the focal asymmetry in the upper outer quadrant left breast from interval biopsy. BI/DIAG MAMM W/CAD, UNILAT IMPRESSION: Stable unilateral diagnostic mammogram. ASSESSMENT CATEGORY: BIRADS Category 1: Negative. A letter regarding these results will be sent to the patient by the facility within 30 days. FOLLOW-UP RECOMMENDATION: Yearly follow-up mammogram recommended. (A) Approximately 10% of breast cancers are not detected by mammography. A normal mammogram should not delay biopsy of a clinically suspicious abnormality. Electronically Signed: Jerson Hsu MD at 14:10 EDT ,
== END 2021-08-15 23:59 | disposition home or self-care (01) ==
PROVIDERS: PCP Family Medicine; Referring Provider Surgery; Visit Provider Surgery
DX: R92.8 Other abnormal and inconclusive findings on diagnostic imaging of breast (principal)
CPT/HCPCS: 77061; 77065; G0279

== ENCOUNTER 2021-08-24 15:20 | Outpatient (CLI) | payer MEDICARE, OTHER, SELFPAY ==
[2021-08-24 18:10] LABS: AST(SGOT) 14 U/L (15-37); Alanine Aminotransfer ALT/SGPT 27 U/L (13-56); Albumin, Serum 3.2 g/dL (3.2-5.0); Alkaline Phosphatase 65 U/L (45-117); Anion Gap 5 (5-15); BUN 16 mg/dL (7-18); BUN/Creat Ratio 22.3 RATIO (10-20); Calcium,Total 8.1 mg/dL (8.5-10.1); Chloride 105 mmol/L (98-107); Creatinine, Serum 0.72 mg/dL (0.55-1.02); EST Glomerular Filtration Rate 84 mL/min (>60); Est Glom Filt Rate - Afr Amer 102 mL/min (>60); Globulin 3.1 g/dL (2.2-4.2); Glucose 225 mg/dL (74-106); Magnesium 2.3 mg/dL (1.6-2.6); Potassium 3.2 mmol/L (3.5-5.1); Protein, Total 6.3 g/dL (6.4-8.2); Sodium Level 140 mmol/L (136-145)
== END 2021-08-24 23:59 | disposition home or self-care (01) ==
LOC: MTLAB 15:21
PROVIDERS: PCP Family Medicine; Referring Provider Family Medicine; Visit Provider Family Medicine
DX: I10 Essential (primary) hypertension (principal)
CPT/HCPCS: 36415; 80053; 83735

== ENCOUNTER → 2021-08-25 10:43 | Outpatient (CLI) | payer MEDICARE, OTHER, SELFPAY ==
[2021-08-25 12:04] LABS: Anion Gap 4 (5-15); BUN 19 mg/dL (7-18); BUN/Creat Ratio 25.6 RATIO (10-20); Calcium,Total 7.8 mg/dL (8.5-10.1); Chloride 103 mmol/L (98-107); Creatinine, Serum 0.74 mg/dL (0.55-1.02); EST Glomerular Filtration Rate 81 mL/min (>60); Est Glom Filt Rate - Afr Amer 98 mL/min (>60); Glucose 153 mg/dL (74-106); Potassium 3.3 mmol/L (3.5-5.1); Sodium Level 137 mmol/L (136-145)
== END ==
PROVIDERS: PCP Family Medicine
DX: E11.21 Type 2 diabetes mellitus with diabetic nephropathy (principal)
CPT/HCPCS: 36415; 80048

== ENCOUNTER 2021-09-03 12:58 | Day surgery (SDC) | payer MEDICARE, OTHER, SELFPAY ==
[2021-09-03] VITALS (7 sets, daily range): BP systolic 145–158; BP diastolic 57–68; PULSE 68–80; RESP 16; TEMP 36.5–36.9; O2SAT 92–100
[2021-09-03] MEDS: Lactated Ringers 1,000 ML 15 ML IV (13:35)
[2021-09-03 13:56] LABS: Bedside Glucose 93 mg/dL (74-106)
[2021-09-03] MEDS: Cefazolin 2 GM in 0.9% Normal Saline 100 ML IV (15:10)
--- NOTE | 2021-09-03 15:30 | RAD_ITS ---
STUDY: X-RAY - LUMBAR SPINE REASON FOR EXAM: Female, 76 years old. INSERTION SPINAL CORD STIMULATOR TECHNIQUE: 11 view(s) of the lumbar spine were obtained. COMPARISON: 05/30/2021 FINDINGS: Intraoperative fluoroscopic spot images for intrathecal neural stimulator placement with insertion at L2-3 level. Neural stimulator tip terminates in the lower thoracic spine. Intrathecal injection of contrast demonstrates severe stenosis at L4-5 level. Multilevel degenerative changes in the visualized spine. Multiple thoracolumbar compression fractures are similar compared to the prior. RAD/Lumbar Spine 2 or 3 Views IMPRESSION: Intraoperative fluoroscopic images of intrathecal neurostimulator placement. Please refer to the operative report for additional findings. Electronically Signed: Roni Prado MD at 7:33 EDT ,
[2021-09-03] MEDS: Bacitracin 500 UNITS/GM PACKET (16:58)
[2021-09-03] MEDS: Lidocaine 2% (20 ml mdv) 20 ML Vial (16:59)
[2021-09-03] MEDS: Bupivacaine 0.25% 30 ML Vial (16:59)
--- NOTE | 2021-09-03 17:20 | PCM.OPRPT ---
Report of Operation Date of Procedure: 09/03/21 Description of Surgical Findings:: Pre-Operative Diagnosis: Lumbosacral radiculopathy, lumbosacral degenerative disc disease, lumbosacral spinal stenosis, lumbar postlaminectomy syndrome Post-Operative Diagnosis: Lumbosacral radiculopathy, lumbosacral degenerative disc disease, lumbosacral spinal stenosis, postlaminectomy syndrome of the lumbar spine Surgery/Procedure Performed:: 1. Spinal cord stimulator thoracolumbar leads placement x2 #2 spinal cord stimulator Medtronic intellus generator placement #3 spinal cord stimulator generator pocket creation at the left gluteal region #4 spinal cord stimulator programming, 5-intraoperative fluoroscopic interpretation, blood patch ANESTHESIA: MAC COMPLICATIONS: None BLOOD LOSS: Minimal Implanted device: Spinal cord stimulator lead [id number] lot number [id number], lead REMOVED #2 [id number] lot number [id number] Medtronic spinal cord stimulator generator intellus serial number [id number] PROCEDURE IN DETAIL: History and physical today was reviewed. Risks and benefits of procedure explained. The patient understood, agreed to procedure, informed consent was obtained. IV inserted per routine protocol. The patient was taken to the operating room, placed in the prone position with a pillow positioned underneath the abdomen. A 2 g of Ancef IV piggyback was infused per anesthesia. The lower back and right gluteal area was prepped and draped in a sterile fashion using iodine x3 Ioban was placed. The C-arm was brought in position for AP view at the T12-L1 vertebral bodies under direct visualization fluoroscopy on a true AP view the L2-3 interlaminar space was identified skin and subcutaneous tissue and size approximately 10 cc of a mix of 2% lidocaine and 0.25% Marcaine using a 25-gauge regular needle followed by a 25-gauge 3-1/2 inch spinal needle towards the interlaminar space at L2-L3, the skin and subcutaneous tissue were then anesthetized and using an 11-gauge blade was then taken down to the skin and subcutaneous tissue using a 14-gauge 3-1/2 inch Touhy needle provided by the [employer] kit the needle was passed through the skin towards the interlaminar space at L2-3 and a left paramedian approach the needle was then advanced under direct visualization fluoroscopy towards the interlaminar space at L2-3 [id number] technique was then carried to air towards the interlaminar space at L2-3 once the tip of the needle was in the epidural space and loss of resistance was encountered to air and after confirmation of AP as well as oblique view of the spinal cord stimulator lead was then advanced under direct visualization fluoroscopy to be at the tip of the lead at T8 and the bottom of the lead around mid T10 after confirmation of AP as well as well as lateral view to confirm correct placement of the lead in the posterior compartment of the epidural space the previous procedure was then repeated to the same level on the right parapmedian approach positive CSF at the area the needle then pulled towards the epidural space IV contrast was then injected to confirm correct placement into the epidural space once confirmed a blood patch took place utilizing a total of 15 cc of sterile blood from the patient's arm provided by the anesthesia provider, , the leads were were then connected to the external neurostimulator and patient was then awakened to confirm satisfactory coverage of the painful area once satisfactory coverage was then achieved the stylette of each needle was then removed and the skin and subcutaneous tissue on to the left of the paramedian needles was then taken anesthetized with a total of 10 cc of the previous mixture of 0.25% Marcaine and 2% lidocaine using a 25-gauge regular needle the incision was then taken down through the skin and subcutaneous tissue towards the fascia making sure hemostasis was then maintained via cautery, the spinal cord stimulator leads were then passed through the above incision and secured using the anhor and sutured down with a 2-0 silk to the fascia at that level the spinal cord stimulator leads were then tunneled via a tunneler provided by the [employer] kit towards the previously incised spinal cord stimulator battery at the left gluteal region skin and subcutaneous tissue were anesthetized with approximately 10 cc of a mix of 2% lidocaine and 0.25% Marcaine using a 25 gauge regular needle, skin and subcutaneous tissue was then taken down with the 11-gauge blade hemostasis was maintained with Bovie and direct pressure the incision was then taken down to the fascia and the battery was then secured with the 2-0 silk sutures that were the spinal cord stimulator leads the upper lead was then marked the new until spinal cord stimulator battery was then provided Via [facility] the battery was then reattached of the spinal cord stimulator make ensure that the top lead is attached to the top position from 0-7 electrodes and the bottom from 8-15 electrodes once impedance was then checked to be in the proper average number the intellus battery was then inserted into the pocket and impedance with when checked again the pocket was then inspected to confirm hemostasis in place, the intellus battery was then secured to the fascia using a 2-0 silk to the upper eyes of the battery confirming an upward writing of the intellus facing posterior and placed in a antimicrobial TYRX pouch, once complete confirmation the battery was then placed in the position and the the mid paramedian and the gluteal incisions were then closed primarily through a 3-0 Vicryl in a running fashion followed by a 4-0 Vicryl to the skin, hemostasis was then maintained during the procedure the skin was then covered with a Steri-Strips and bacitracin patient was then returned into the supine position in a stable condition and returned to recovery in a stable condition patient experienced no signs or symptoms of intrathecal or intravascular injection patient experienced no paresthesia the procedure was completed without any apparent difficulty any complication the patient appeared to tolerate well, motor as well as sensory function was unchanged from prior to the procedure ESTIMATED BLOOD LOSS: Minimal less than 25 mL ASSESSMENT AND PLAN: This is a 76-year-old female with lumbosacral radiculopathy lumbosacral degenerative disc disease lumbosacral spinal stenosis status post 1. Spinal cord stimulator thoracolumbar leads placement x2 #2 spinal cord stimulator Medtronic intellus generator placement #3 spinal cord stimulator generator pocket creation at the left gluteal region #4 spinal cord stimulator programming, 5-intraoperative fluoroscopic interpretation patient will continue her current medications a prescription was provided to the patient Augmentin 500 mg 1 p.o. every 8 hours for 7 days, Percocet 5-325 mg 1 p.o. every 4-6 hours for acute postoperative pain as needed, postop instruction were given in writing to the patient and her and daughter as well as verbally and in writing, patient will follow approximately 1 week for reevaluation.
== END 2021-09-03 23:59 | disposition home or self-care (01) ==
LOC: SDC 12:59 → AC 13:01
PROVIDERS: PCP Family Medicine; Referring Provider Anesthesiology Pain Medicine; Visit Provider Anesthesiology Pain Medicine
PROC: (CPT 63685; principal; 2021-09-03 15:10)
DX: M51.17 Intervertebral disc disorders with radiculopathy, lumbosacral region (principal); J44.9 Chronic obstructive pulmonary disease, unspecified; I13.0 Hypertensive heart and chronic kidney disease with heart failure and stage 1 through stage 4 chronic kidney disease, or unspecified chronic kidney disease; I50.9 Heart failure, unspecified; E11.22 Type 2 diabetes mellitus with diabetic chronic kidney disease; N18.2 Chronic kidney disease, stage 2 (mild); M48.07 Spinal stenosis, lumbosacral region; M96.1 Postlaminectomy syndrome, not elsewhere classified; K21.9 Gastro-esophageal reflux disease without esophagitis; K58.2 Mixed irritable bowel syndrome; M10.9 Gout, unspecified; M19.90 Unspecified osteoarthritis, unspecified site; M81.0 Age-related osteoporosis without current pathological fracture; Z79.891 Long term (current) use of opiate analgesic; Z79.899 Other long term (current) drug therapy
CPT/HCPCS: 63685; 63650; 00300; 62273; 72100; 76000; 82962; C1778; C1820; J7120; J2405

== ENCOUNTER 2021-09-06 12:08 | Outpatient (CLI) | payer MEDICARE, OTHER, SELFPAY ==
[2021-09-06 15:34] LABS: Anion Gap 4 (5-15); BUN 20 mg/dL (7-18); Calcium,Total 8.3 mg/dL (8.5-10.1); Chloride 98 mmol/L (98-107); EST Glomerular Filtration Rate 74 mL/min (>60); Est Glom Filt Rate - Afr Amer 90 mL/min (>60); Glucose 150 mg/dL (74-106); Potassium 4.3 mmol/L (3.5-5.1); Sodium Level 131 mmol/L (136-145)
== END 2021-09-06 23:59 | disposition home or self-care (01) ==
PROVIDERS: PCP Family Medicine; Referring Provider Family Medicine; Visit Provider Family Medicine
DX: Z20.822 Contact with and (suspected) exposure to COVID-19 (principal); M79.89 Other specified soft tissue disorders
CPT/HCPCS: 36415; 80048

== ENCOUNTER → 2021-10-10 | Outpatient (CLI) | payer MEDICARE, OTHER, SELFPAY ==
[2021-10-12 15:09] LABS: PROEL- A/G Ratio 1.3 (0.7-1.7); PROEL- Albumin 3.4 g/dL (2.9-4.4); PROEL- Alpha-1 Globulin 0.2 g/dL (0.0-0.4); PROEL- Alpha-2 Globulin 0.9 g/dL (0.4-1.0); PROEL- Gamma Globulin 0.7 g/dL (0.4-1.8); PROEL- Globulin, Total 2.7 g/dL (2.2-3.9); PROEL- TOTAL PROTEIN 6.1 g/dL (6.0-8.5); PROELU- Albumin, Urine 72.3 % (.); PROELU- Alpha-1-Globulin,Ur 5.5 % (.); PROELU- Alpha-2-Globulin,Ur 5.3 % (.); PROELU- Beta Globulin, Ur 11.5 % (.); PROELU- Gamma Globulin, Ur 5.4 % (.); Total Protein, Ur 79.8 mg/dL (Not Estab.)
== END | disposition home or self-care (01) ==
LOC: MTLAB 09:29
PROVIDERS: PCP Family Medicine; Referring Provider Internal Medicine Endocrinology, Diabetes & Metabolism; Visit Provider Internal Medicine Endocrinology, Diabetes & Metabolism
DX: E11.21 Type 2 diabetes mellitus with diabetic nephropathy (principal)
CPT/HCPCS: 36415; 82043; 82570; 84165; 84166

== ENCOUNTER → 2021-10-17 | Outpatient (CLI) | payer MEDICARE, OTHER, SELFPAY ==
--- NOTE | 2021-10-17 09:49 | RAD_ITS ---
STUDY: X-RAY - THORACIC SPINE REASON FOR EXAM: Female, 76 years old. Pain and stiffness TECHNIQUE: 2 view(s) of the thoracic spine were obtained. COMPARISON: None. FINDINGS: There is straightening of the normal thoracic kyphosis. There is no substantial scoliosis. There is multilevel endplate spondylosis of the thoracic vertebrae. There is multilevel disc space narrowing of the thoracic spine. Neurostimulator catheter seen over the lower thoracic spine RAD/Thoracic Spine 2 Views IMPRESSION: Multilevel degenerative changes with bridging osteophytic spurs. Electronically Signed: Semaj Skelton MD at 12:40 EDT ,
== END | disposition home or self-care (01) ==
LOC: MTLAB 09:42 → MTRAD 09:42
PROVIDERS: PCP Family Medicine; Referring Provider Internal Medicine Endocrinology, Diabetes & Metabolism; Visit Provider Internal Medicine Endocrinology, Diabetes & Metabolism
DX: S22.000A Wedge compression fracture of unspecified thoracic vertebra, initial encounter for closed fracture (principal); X58.XXXA Exposure to other specified factors, initial encounter; M47.814 Spondylosis without myelopathy or radiculopathy, thoracic region; M48.04 Spinal stenosis, thoracic region; M25.78 Osteophyte, vertebrae
CPT/HCPCS: 72070; 72072

== ENCOUNTER → 2021-10-23 | Outpatient (CLI) | payer MEDICARE, OTHER, SELFPAY ==
[2021-10-23 17:55] LABS: Absolute Lymphocyte Count 1.82 X10^3/uL (0.83-4.51); Absolute Neutrophil Count 4.8 X10^3/uL (2.0-7.7); Basophil# 0.05 X10^3/uL; Basophil% 0.7 % (0-1); Eosinophil# 0.07 X10^3/uL; Eosinophils% 0.9 % (0-5); Hematocrit 34.6 % (37-47); Hemoglobin 10.7 g/dL (12.0-15.0); Lymphocyte # 1.82 X10^3/ul (0.83-4.51); Lymphocyte % 24.6 % (19-41); Mean Corp Hgb Conc 30.9 g/dL (32-36); Mean Corpuscular Hgb 28.4 pg (27.0-32.0); Mean Corpuscular Volume 91.8 fL (81-99); Monocyte# 0.58 X10^3/uL; Monocyte% 7.8 % (0-10); NRBC Flagged by Analyzer 0 % (0-5); Neutrophil # 4.84 X10^3/uL (2.7-7.7); Neutrophil % 65.6 % (47-70); Platelet Count 332 K/mm3 (150-450); RBC Distribution Width CV 13.4 % (11.6-14.6); RBC Distribution Width SD 45.8 fl (35.1-43.9); Red Blood Count 3.77 M/mm3 (4.2-5.4); White Blood Count 7.4 K/mm3 (4.4-11.0)
[2021-10-23 18:22] LABS: Hemoglobin A1c 6.8 % (3.8-5.6)
[2021-10-23 18:34] LABS: Vitamin B12 1868 pg/mL (211-911); Vitamin D,25 Hydroxy 39.6 ng/mL
[2021-10-23 19:19] LABS: AST(SGOT) 18 U/L (15-37); Alanine Aminotransfer ALT/SGPT 30 U/L (13-56); Albumin, Serum 3.3 g/dL (3.2-5.0); Alkaline Phosphatase 49 U/L (45-117); Anion Gap 7 (5-15); BUN 19 mg/dL (7-18); BUN/Creat Ratio 27.4 RATIO (10-20); Calcium,Total 8.2 mg/dL (8.5-10.1); Chloride 97 mmol/L (98-107); Creatinine, Serum 0.69 mg/dL (0.55-1.02); EST Glomerular Filtration Rate 88 mL/min (>60); Est Glom Filt Rate - Afr Amer 106 mL/min (>60); Ferritin 27 ng/mL (8-252); Globulin 3.4 g/dL (2.2-4.2); Glucose 101 mg/dL (74-106); Iron 27 ug/dL (50-170); Iron Binding Capacity,Total 365 ug/dL (250-450); PERCENT IRON SATURATION 7.4 % (15.0-55.0); Potassium 4.3 mmol/L (3.5-5.1); Protein, Total 6.7 g/dL (6.4-8.2); Sodium Level 129 mmol/L (136-145)
[2021-10-23 19:51] LABS: PTHIN 69.8 pg/mL (18.4-80.1)
[2021-10-31 06:08] LABS: Alternaria tenuis <0.10 kU/L (Class 0); Ash, White <0.10 kU/L (Class 0); Aspergillus fumigatus <0.10 kU/L (Class 0); Bermuda Grass <0.10 kU/L (Class 0); Birch <0.10 kU/L (Class 0); Black Walnut <0.10 kU/L (Class 0); Cat Hair / Dander,Stand <0.10 kU/L (Class 0); Cedar, Mountain <0.10 kU/L (Class 0); Cladosporium herbarum <0.10 kU/L (Class 0); Cockroach, American <0.10 kU/L (Class 0); Cottonwood <0.10 kU/L (Class 0); D farinae Mite <0.10 kU/L (Class 0); D pteronyssinus <0.10 kU/L (Class 0); Dog Epithelia <0.10 kU/L (Class 0); Elm, American White <0.10 kU/L (Class 0); Immunoglobulin E 14 IU/mL (6-495); Maple/Box Elder <0.10 kU/L (Class 0); Mulberry, White <0.10 kU/L (Class 0); Oak, White <0.10 kU/L (Class 0); Pecan <0.10 kU/L (Class 0); Penicillium Notatum <0.10 kU/L (Class 0); Pigweed, Rough <0.10 kU/L (Class 0); Ragweed, Short/Common <0.10 kU/L (Class 0); Russian Thistle <0.10 kU/L (Class 0); Sheep Sorrel <0.10 kU/L (Class 0); Sycamore, American <0.10 kU/L (Class 0); Timothy Grass <0.10 kU/L (Class 0)
[2021-10-31 08:41] LABS: Mouse Urine <0.10 kU/L (Class 0)
[2021-10-31 11:36] LABS: Copper, Serum or Plasma 90 ug/dL (80-158)
== END | disposition home or self-care (01) ==
LOC: MTRAD 16:26 → MTLAB 16:27
PROVIDERS: PCP Family Medicine
DX: E11.9 Type 2 diabetes mellitus without complications (principal); E55.9 Vitamin D deficiency, unspecified; T78.40XA Allergy, unspecified, initial encounter; D64.9 Anemia, unspecified; E53.8 Deficiency of other specified B group vitamins; K90.9 Intestinal malabsorption, unspecified; Z98.84 Bariatric surgery status
CPT/HCPCS: 36415; 80053; 82306; 82525; 82607; 82728; 82746; 82785; 83036; 83540; 83550; 83970; 84425; 85025; 86003

== ENCOUNTER → 2021-11-16 | Outpatient (CLI) | payer MEDICARE, OTHER, SELFPAY ==
--- NOTE | 2021-11-16 14:05 | ECHOD_ITS ---
Version 2 Reason For Study: Murmur Procedure This was a 2D Doppler, Color Flow transthoracic echocardiogram. Exam performed in department. Left Ventricle Normal LV size. Mild concentric left ventricular hypertrophy. Left ventricular systolic function is normal. The estimated ejection fraction is 55 %. Stage 1 diastolic dysfunction. No regional wall motion abnormalities noted. Right Ventricle Normal RV size. Normal systolic function. Mitral Valve Normal mitral valve. Mild (1+) eccentric mitral valve insufficiency. Tricuspid Valve Normal tricuspid valve. Mild tricuspid valve insufficiency. Pulmonary artery systolic pressure is 23 mmHg. Aortic Valve Trisinus/trileaflet aortic valve. Mild focal aortic valve calcification. Peak aortic valve gradient 25 mmHg. Mean aortic valve gradient 13 mmHg. Mild aortic stenosis. Mild (1+) eccentric aortic valve insufficiency. Pulmonic Valve Normal pulmonic valve. Mild (1+) pulmonic valve insufficiency. Great Vessels Normal aortic root. The pulmonary artery is normal size. Normal inferior vena cava. Pericardium/Pleural No pericardial effusion. MMode/2D Measurements & Calculations LVIDd: 4.5 cm IVSd: 1.3 cm LVOT diam: 2.0 cm LVIDs: 3.0 cm LVPWd: 1.2 cm LVOT area: 3.3 cm2 RVDd: 3.2 cm FS: 32.1 % Ao root diam: 3.2 cm LAV(MOD-bp): 38.2 ml LVAd ap4: 26.2 cm2 LAV(MOD-bp) Indexed: 25.9 ml/m2 LVLd ap4: 7.4 cm LAV(MOD-sp2): 32.7 ml EDV(MOD-sp4): 78.1 ml LAV(MOD-sp4): 42.9 ml EDV(sp4-el): 78.4 ml LVAs ap4: 16.2 cm2 LVLs ap4: 6.4 cm ESV(MOD-sp4): 36.2 ml ESV(sp4-el): 34.5 ml EF(MOD-sp4): 53.6 % EF(sp4-el): 56.0 % SV(MOD-sp4): 41.9 ml SV(MOD-sp2): 45.4 ml LVAd ap2: 26.1 cm2 LVLd ap2: 7.5 cm EDV(MOD-sp2): 79.6 ml EDV(sp2-el): 76.9 ml LVAs ap2: 16.1 cm2 LVLs ap2: 6.7 cm ESV(MOD-sp2): 34.2 ml ESV(sp2-el): 32.7 ml EF(MOD-sp2): 57.1 % SV(sp4-el): 43.9 ml LA A4 area: 15.2 cm2 LA dimension(2D): 3.8 cm RA A4 area: 9.3 cm2 Doppler Measurements & Calculations MV E max dale: 60.5 cm/sec Lat Peak E' Dale: 4.9 cm/sec Med Peak E' Dale: 3.5 cm/sec MV A max dale: 106.3 cm/sec E/E' lat: 12.3 E/E' med: 17.3 MV E/A: 0.57 Ao V2 max: 249.5 cm/sec AI max dale: 404.9 cm/sec LV V1 max: 117.7 cm/sec Ao max P.9 mmHg AI max P.6 mmHg LV V1 max P.5 mmHg Ao V2 mean: 170.2 cm/sec AI dec slope: 258.1 cm/sec2 LV V1 mean P.2 mmHg Ao mean P.0 mmHg AI P1/2t: 459.5 msec LV V1 mean: 86.5 cm/sec Ao V2 VTI: 54.4 cm LV V1 VTI: 28.1 cm GISELLE(I,D): 1.7 cm2 GISELLE(V,D): 1.5 cm2 SV(LVOT): 91.8 ml PA V2 max: 95.9 cm/sec TR max dale: 212.7 cm/sec TR max P.1 mmHg ECHO/Echo Complete Interpretation Summary Normal LV size. Left ventricular systolic function is normal. The estimated ejection fraction is 55 %. Stage 1 diastolic dysfunction. Mean aortic valve gradient 13 mmHg. Mild (1+) eccentric aortic valve insufficiency. Mild concentric left ventricular hypertrophy. Mild focal aortic valve calcification. Mild aortic stenosis. Ordering Physician: Hugo Urias Referring Physician: Hugo Julio MD Performed By: Stefanie Malone ALMA ROSA
== END | disposition home or self-care (01) ==
PROVIDERS: PCP Family Medicine; Referring Provider Internal Medicine Cardiovascular Disease; Visit Provider Internal Medicine Cardiovascular Disease
DX: I25.10 Atherosclerotic heart disease of native coronary artery without angina pectoris (principal); R01.1 Cardiac murmur, unspecified
CPT/HCPCS: 93306

== ENCOUNTER → 2021-12-06 | Outpatient (CLI) | payer MEDICARE, OTHER, SELFPAY ==
[2021-12-06 12:21] LABS: ALB/GLOB Ratio 1.1 RATIO (0.9-2.4); AST(SGOT) 20 U/L (15-37); Alanine Aminotransfer ALT/SGPT 29 U/L (13-56); Albumin, Serum 3.5 g/dL (3.2-5.0); Alkaline Phosphatase 55 U/L (45-117); Anion Gap 6 (5-15); BUN 20 mg/dL (7-18); BUN/Creat Ratio 23.9 RATIO (10-20); Calcium,Total 8.7 mg/dL (8.5-10.1); Chloride 99 mmol/L (98-107); Creatinine, Serum 0.84 mg/dL (0.55-1.02); EST Glomerular Filtration Rate 70 mL/min (>60); Est Glom Filt Rate - Afr Amer 85 mL/min (>60); Globulin 3.3 g/dL (2.2-4.2); Glucose 102 mg/dL (74-106); Potassium 3.8 mmol/L (3.5-5.1); Prealbumin 36.7 mg/dL (20.0-40.0); Protein, Total 6.8 g/dL (6.4-8.2); Sodium Level 133 mmol/L (136-145)
== END | disposition home or self-care (01) ==
LOC: MTLAB 10:40
PROVIDERS: PCP Family Medicine; Referring Provider Family Medicine; Visit Provider Family Medicine
DX: E88.09 Other disorders of plasma-protein metabolism, not elsewhere classified (principal); E87.6 Hypokalemia
CPT/HCPCS: 36415; 80053; 84134

== ENCOUNTER → 2021-12-25 | Outpatient (CLI) | payer MEDICARE, OTHER, SELFPAY ==
[2021-12-25 16:20] LABS: Mucous, Urine 0 SEEN /hpf (<or=2+)
[2021-12-25 18:11] LABS: Absolute Neutrophil Count 4.9 X10^3/uL (2.0-7.7); Basophil# 0.02 X10^3/uL; Basophil% 0.3 % (0-1); Eosinophil# 0.11 X10^3/uL; Eosinophils% 1.5 % (0-5); Hematocrit 35.6 % (37-47); Hemoglobin 11.3 g/dL (12.0-15.0); Lymphocyte % 21.9 % (19-41); Mean Corp Hgb Conc 31.7 g/dL (32-36); Mean Corpuscular Hgb 29.6 pg (27.0-32.0); Mean Corpuscular Volume 93.2 fL (81-99); Mean Platelet Vol. 9.1 fl (6.2-12.0); Monocyte# 0.63 X10^3/uL; Monocyte% 8.6 % (0-10); NRBC Flagged by Analyzer 0 % (0-5); Neutrophil # 4.92 X10^3/uL (2.7-7.7); Neutrophil % 67.4 % (47-70); Platelet Count 261 K/mm3 (150-450); RBC Distribution Width CV 15.1 % (11.6-14.6); RBC Distribution Width SD 51.8 fl (35.1-43.9); Red Blood Count 3.82 M/mm3 (4.2-5.4); White Blood Count 7.3 K/mm3 (4.4-11.0)
[2021-12-25 18:23] LABS: Color, Urine Yellow (Yellow); Glucose, Dipstick 100 mg/dl (Normal); Ketone-Dipstick 5 mg/dl (Negative); Leukocyte Esterase-Dipstick 500 /ul (Negative); Nitrite-Dipstick Negative (Negative); Occult Blood-Urine 50 /ul (Negative); Protein-Dipstick 100 mg/dl (Negative); Specific Gravity, Urine 1.015 (1.002-1.030); Urine Bilirubin Dipstick Negative (Negative); Urine Clarity Cloudy (Clear); Urine Urobilinogen Normal (Normal)
[2021-12-25 19:29] LABS: Bacteria 4+ /hpf (None Seen); Red Blood Cells-Urine 5-10 SEEN /hpf (0-5); Squamous Epithelial Cells - UA 10-25 SEEN /hpf (5-10); White Blood Cells >100 SEEN /hpf (0-5)
[2021-12-25 20:16] LABS: ALB/GLOB Ratio 0.9 RATIO (0.9-2.4); AST(SGOT) 20 U/L (15-37); Alanine Aminotransfer ALT/SGPT 29 U/L (13-56); Albumin, Serum 3.2 g/dL (3.2-5.0); Alkaline Phosphatase 67 U/L (45-117); Anion Gap 6 (5-15); BUN 15 mg/dL (7-18); BUN/Creat Ratio 24.3 RATIO (10-20); CRP 7.55 mg/L (0.0-3.0); Calcium,Total 7.8 mg/dL (8.5-10.1); Chloride 97 mmol/L (98-107); Creatinine, Serum 0.62 mg/dL (0.55-1.02); EST Glomerular Filtration Rate 100 mL/min (>60); Est Glom Filt Rate - Afr Amer 121 mL/min (>60); Globulin 3.4 g/dL (2.2-4.2); Glucose 141 mg/dL (74-106); Potassium 3.9 mmol/L (3.5-5.1); Protein, Total 6.6 g/dL (6.4-8.2); Sodium Level 130 mmol/L (136-145)
== END | disposition home or self-care (01) ==
LOC: MTLAB 15:57
PROVIDERS: PCP Family Medicine; Referring Provider Family Medicine; Visit Provider Family Medicine
DX: R41.0 Disorientation, unspecified (principal)
CPT/HCPCS: 36415; 80053; 81001; 82140; 85025; 86140; 87077; 87086; 87088; 87186

== ENCOUNTER → 2022-01-02 | Outpatient (CLI) | payer MEDICARE, OTHER, SELFPAY ==
[2022-01-02 15:21] LABS: Hemoglobin A1c 6.9 % (3.8-5.6)
[2022-01-02 15:23] LABS: AST(SGOT) 24 U/L (15-37); Alanine Aminotransfer ALT/SGPT 43 U/L (13-56); Albumin, Serum 3.4 g/dL (3.2-5.0); Alkaline Phosphatase 65 U/L (45-117); Anion Gap 7 (5-15); BUN 16 mg/dL (7-18); BUN/Creat Ratio 19.7 RATIO (10-20); Calcium,Total 8.5 mg/dL (8.5-10.1); Chloride 96 mmol/L (98-107); Creatinine, Serum 0.81 mg/dL (0.55-1.02); EST Glomerular Filtration Rate 73 mL/min (>60); Est Glom Filt Rate - Afr Amer 88 mL/min (>60); Globulin 3.3 g/dL (2.2-4.2); Glucose 186 mg/dL (74-106); Potassium 3.3 mmol/L (3.5-5.1); Protein, Total 6.7 g/dL (6.4-8.2); Sodium Level 133 mmol/L (136-145)
[2022-01-02 19:09] LABS: Microalbumin:Creatinine Ratio 1046.7 mg/g CRE (<30 mg/g CRE)
== END | disposition home or self-care (01) ==
LOC: MTLAB 15:50
PROVIDERS: PCP Family Medicine; Referring Provider Internal Medicine Endocrinology, Diabetes & Metabolism; Visit Provider Internal Medicine Endocrinology, Diabetes & Metabolism
DX: E11.21 Type 2 diabetes mellitus with diabetic nephropathy (principal)
CPT/HCPCS: 36415; 80053; 82043; 82570; 83036

== ENCOUNTER → 2022-01-04 | Outpatient (CLI) | payer MEDICARE, OTHER, SELFPAY ==
[2022-01-04 12:28] LABS: Magnesium 2.4 mg/dL (1.6-2.6)
[2022-01-04 12:49] LABS: Microalbumin:Creatinine Ratio 773.6 mg/g CRE (<30 mg/g CRE)
[2022-01-08 14:09] LABS: PROEL- A/G Ratio 1.1 (0.7-1.7); PROEL- Albumin 3.4 g/dL (2.9-4.4); PROEL- Alpha-1 Globulin 0.2 g/dL (0.0-0.4); PROEL- Gamma Globulin 0.7 g/dL (0.4-1.8); PROEL- TOTAL PROTEIN 6.4 g/dL (6.0-8.5); PROELU- Albumin, Urine 74.2 % (.); PROELU- Alpha-1-Globulin,Ur 5.2 % (.); PROELU- Alpha-2-Globulin,Ur 5.5 % (.); PROELU- Beta Globulin, Ur 11.2 % (.); PROELU- Gamma Globulin, Ur 3.8 % (.); Total Protein, Ur 28.5 mg/dL (Not Estab.)
== END | disposition home or self-care (01) ==
LOC: MTLAB 10:25
PROVIDERS: PCP Family Medicine; Referring Provider Internal Medicine Endocrinology, Diabetes & Metabolism; Visit Provider Internal Medicine Endocrinology, Diabetes & Metabolism
DX: E11.21 Type 2 diabetes mellitus with diabetic nephropathy (principal); E83.42 Hypomagnesemia; M81.0 Age-related osteoporosis without current pathological fracture
CPT/HCPCS: 36415; 82043; 82570; 83735; 84165; 84166

== ENCOUNTER → 2022-01-15 | Outpatient (CLI) | payer MEDICARE, OTHER, SELFPAY | END | disposition home or self-care (01) | LOC: LABSPEC 12:20 | PROVIDERS: PCP Family Medicine; Visit Provider Family Medicine | DX: R19.4 Change in bowel habit (principal); R19.7 Diarrhea, unspecified | CPT/HCPCS: 87493; 87506 ==

== ENCOUNTER → 2022-01-16 | Outpatient (CLI) | payer MEDICARE, OTHER, SELFPAY ==
[2022-01-16 12:41] LABS: Absolute Lymphocyte Count 1.54 X10^3/uL (0.83-4.51); Absolute Neutrophil Count 3.5 X10^3/uL (2.0-7.7); Basophil# 0.03 X10^3/uL; Basophil% 0.5 % (0-1); Eosinophil# 0.05 X10^3/uL; Eosinophils% 0.9 % (0-5); Hematocrit 35.6 % (37-47); Hemoglobin 11.5 g/dL (12.0-15.0); Lymphocyte # 1.54 X10^3/ul (0.83-4.51); Lymphocyte % 27.8 % (19-41); Mean Corp Hgb Conc 32.3 g/dL (32-36); Mean Corpuscular Hgb 30.8 pg (27.0-32.0); Mean Corpuscular Volume 95.4 fL (81-99); Mean Platelet Vol. 9.7 fl (6.2-12.0); Monocyte# 0.43 X10^3/uL; Monocyte% 7.8 % (0-10); NRBC Flagged by Analyzer 0 % (0-5); Neutrophil # 3.46 X10^3/uL (2.7-7.7); Neutrophil % 62.6 % (47-70); Platelet Count 282 K/mm3 (150-450); RBC Distribution Width CV 15.3 % (11.6-14.6); RBC Distribution Width SD 53.6 fl (35.1-43.9); Red Blood Count 3.73 M/mm3 (4.2-5.4); White Blood Count 5.5 K/mm3 (4.4-11.0)
[2022-01-16 13:10] LABS: PTHIN 54.8 pg/mL (18.4-80.1)
[2022-01-16 13:16] LABS: Vitamin B12 > 2000 pg/mL (211-911); Vitamin D,25 Hydroxy 59.8 ng/mL
[2022-01-16 13:18] LABS: Hemoglobin A1c 6.8 % (3.8-5.6)
[2022-01-16 13:59] LABS: ALB/GLOB Ratio 1.1 RATIO (0.9-2.4); AST(SGOT) 16 U/L (15-37); Alanine Aminotransfer ALT/SGPT 29 U/L (13-56); Albumin, Serum 3.2 g/dL (3.2-5.0); Alkaline Phosphatase 53 U/L (45-117); Anion Gap 7 (5-15); BUN 13 mg/dL (7-18); BUN/Creat Ratio 18.6 RATIO (10-20); Calcium,Total 8.4 mg/dL (8.5-10.1); Chloride 103 mmol/L (98-107); EST Glomerular Filtration Rate 87 mL/min (>60); Est Glom Filt Rate - Afr Amer 105 mL/min (>60); Ferritin 42 ng/mL (8-252); Glucose 136 mg/dL (74-106); Iron 83 ug/dL (50-170); Iron Binding Capacity,Total 354 ug/dL (250-450); PERCENT IRON SATURATION 23.4 % (15.0-55.0); Potassium 3.7 mmol/L (3.5-5.1); Protein, Total 6.2 g/dL (6.4-8.2); Sodium Level 139 mmol/L (136-145)
[2022-01-21 11:07] LABS: Vitamin B1, Thiamine 147.5 nmol/L (66.5-200.0)
[2022-01-22 08:04] LABS: Copper, Serum or Plasma 96 ug/dL (80-158)
== END | disposition home or self-care (01) ==
PROVIDERS: PCP Family Medicine; Referring Provider Internal Medicine Endocrinology, Diabetes & Metabolism; Visit Provider Internal Medicine Endocrinology, Diabetes & Metabolism
DX: E11.21 Type 2 diabetes mellitus with diabetic nephropathy (principal); E55.9 Vitamin D deficiency, unspecified; D64.9 Anemia, unspecified; E53.8 Deficiency of other specified B group vitamins; K90.9 Intestinal malabsorption, unspecified; Z98.84 Bariatric surgery status
CPT/HCPCS: 36415; 80053; 82306; 82525; 82607; 82728; 82746; 83036; 83540; 83550; 83970; 84425; 85025

== ENCOUNTER → 2022-03-12 | Outpatient (CLI) | payer MEDICARE, OTHER, SELFPAY ==
[2022-03-12 12:54] LABS: ALB/GLOB Ratio 0.9 RATIO (0.9-2.4); AST(SGOT) 20 U/L (15-37); Alanine Aminotransfer ALT/SGPT 39 U/L (13-56); Albumin, Serum 3.3 g/dL (3.2-5.0); Alkaline Phosphatase 57 U/L (45-117); Anion Gap 9 (5-15); BUN 23 mg/dL (7-18); BUN/Creat Ratio 22.8 RATIO (10-20); Calcium,Total 8.7 mg/dL (8.5-10.1); Chloride 99 mmol/L (98-107); Creatinine, Serum 1.01 mg/dL (0.55-1.02); EST Glomerular Filtration Rate 57 mL/min (>60); Est Glom Filt Rate - Afr Amer 69 mL/min (>60); Globulin 3.6 g/dL (2.2-4.2); Glucose 254 mg/dL (74-106); Protein, Total 6.9 g/dL (6.4-8.2); Sodium Level 135 mmol/L (136-145)
[2022-03-12 13:25] LABS: Hemoglobin A1c 6.6 % (3.8-5.6)
== END | disposition home or self-care (01) ==
LOC: MTLAB 09:29
PROVIDERS: PCP Family Medicine; Referring Provider Nurse Practitioner Adult Health; Visit Provider Nurse Practitioner Adult Health
DX: E11.21 Type 2 diabetes mellitus with diabetic nephropathy (principal)
CPT/HCPCS: 36415; 80053; 83036

== ENCOUNTER → 2022-03-20 | Outpatient (CLI) | payer MEDICARE, OTHER, SELFPAY ==
[2022-03-20 10:58] LABS: Cholesterol 159 mg/dL (200); High Density Lipoprotein 72 mg/dL; Triglycerides 154 mg/dL; Very Low Density Lipoprotein 31 mg/dL (5-40)
== END | disposition home or self-care (01) ==
PROVIDERS: PCP Family Medicine; Referring Provider Nurse Practitioner Adult Health; Visit Provider Nurse Practitioner Adult Health
DX: E78.2 Mixed hyperlipidemia (principal)
CPT/HCPCS: 36415; 80061

== ENCOUNTER → 2022-04-30 | Outpatient (CLI) | payer MEDICARE, OTHER, SELFPAY ==
[2022-04-30 18:37] LABS: Albumin, Serum 3.6 g/dL (3.2-5.0); BUN 25 mg/dL (7-18); BUN/Creat Ratio 29.8 RATIO (10-20); Calcium,Total 8.6 mg/dL (8.5-10.1); Chloride 101 mmol/L (98-107); Creatinine, Serum 0.84 mg/dL (0.55-1.02); EST Glomerular Filtration Rate 70 mL/min (>60); Est Glom Filt Rate - Afr Amer 85 mL/min (>60); Glucose 132 mg/dL (74-106); Phosphorus 4.2 mg/dL (2.5-4.9); Potassium 4.6 mmol/L (3.5-5.1); Sodium Level 136 mmol/L (136-145)
[2022-04-30 18:42] LABS: Microalbumin:Creatinine Ratio 306.7 mg/g CRE (<30 mg/g CRE)
== END | disposition home or self-care (01) ==
LOC: MTLAB 16:57
PROVIDERS: PCP Family Medicine; Referring Provider Internal Medicine Nephrology; Visit Provider Internal Medicine Nephrology
DX: N18.2 Chronic kidney disease, stage 2 (mild) (principal); E11.22 Type 2 diabetes mellitus with diabetic chronic kidney disease; E11.21 Type 2 diabetes mellitus with diabetic nephropathy
CPT/HCPCS: 36415; 80069; 82043; 82570

== ENCOUNTER → 2022-05-07 | Outpatient (CLI) | payer MEDICARE, OTHER, SELFPAY | END | disposition home or self-care (01) | PROVIDERS: PCP Family Medicine; Referring Provider Internal Medicine; Visit Provider Internal Medicine | DX: R19.7 Diarrhea, unspecified (principal) ==

== ENCOUNTER → 2022-05-10 | Outpatient (CLI) | payer MEDICARE, OTHER, SELFPAY ==
--- NOTE | 2022-05-10 13:05 | CDU_ITS ---
Reason For Study: RT CAROTID BRUIT Rt. Velocities/BP Lt. Velocities/BP Prox CCA 61.0/11.0 cm/sec. Prox CCA 74.3/11.9 cm/sec. Mid CCA 57.2/11.0 cm/sec. Mid CCA 72.4/11.0 cm/sec. Dist CCA 47.8/5.3 cm/sec. Dist CCA 64.8/12.8 cm/sec. Prox ICA 58.2/12.8 cm/sec. Prox ICA 57.2/11.0 cm/sec. Mid ICA 72.4/11.9 cm/sec. Mid ICA 52.5/11.9 cm/sec. Dist ICA 94.1/16.7 cm/sec. Dist ICA 59.1/11.0 cm/sec. Rt. ICA/CCA = 94.1/57.2=1.6. Lt. ICA/CCA = 59.1/72.4=0.8. Prox ECA 78.0/0.0 cm/sec. Prox ECA 70.5/0.0 cm/sec. Rt. Vert. 38.6/5.6 cm/sec. Lt. Vert. 39.1/9.2 cm/sec. Right Extracranial There is intimal thickening but no significant atherosclerotic plaque noted in the right common carotid artery. There is heterogeneous, smooth atherosclerotic plaque noted in the right internal carotid artery. The tortuous nature of the right internal carotid artery may result in flow velocities overestimating the degree of stenosis. There is heterogeneous, smooth atherosclerotic plaque noted in the right external carotid artery. Antegrade flow is noted in the right vertebral artery. Left Extracranial There is intimal thickening but no significant atherosclerotic plaque noted in the left common carotid artery. There is heterogeneous, smooth atherosclerotic plaque noted in the left internal carotid artery. There is heterogeneous, smooth atherosclerotic plaque noted in the left external carotid artery. Antegrade flow is noted in the left vertebral artery. Procedure Carotid Duplex [id number]. This is a Carotid Duplex examination using B-mode, color flow and specral Doppler. Exam performed in department. VL/Carotid Duplex Ultrasound Interpretation Summary Smooth calcific plaque at the proximal right internal carotid artery with less than 50% stenosis Less than 50% stenosis right external carotid artery Smooth calcific plaque in the proximal left internal carotid artery with less t swift 50% stenosis Less than 50% stenosis left external carotid artery Patent and antegrade vertebral arteries bilaterally Ordering Physician: Chris Campoverde Referring Physician: Hugo Julio Performed By: Salud Magana, [place], RVT
== END | disposition home or self-care (01) ==
LOC: CVS 13:04
PROVIDERS: PCP Family Medicine; Visit Provider Psychiatry & Neurology Neurology
DX: R09.89 Other specified symptoms and signs involving the circulatory and respiratory systems (principal)
CPT/HCPCS: 93880

== ENCOUNTER → 2022-05-28 | Outpatient (CLI) | payer MEDICARE, OTHER, SELFPAY ==
[2022-05-28 12:40] LABS: ALB/GLOB Ratio 1.1 RATIO (0.9-2.4); AST(SGOT) 20 U/L (15-37); Alanine Aminotransfer ALT/SGPT 31 U/L (13-56); Albumin, Serum 3.3 g/dL (3.2-5.0); Alkaline Phosphatase 63 U/L (45-117); Anion Gap 6 (5-15); BUN 13 mg/dL (7-18); Calcium,Total 7.8 mg/dL (8.5-10.1); Chloride 109 mmol/L (98-107); Creatinine, Serum 0.86 mg/dL (0.55-1.02); EST Glomerular Filtration Rate 68 mL/min (>60); Est Glom Filt Rate - Afr Amer 82 mL/min (>60); Glucose 272 mg/dL (74-106); Potassium 4.1 mmol/L (3.5-5.1); Protein, Total 6.3 g/dL (6.4-8.2); Sodium Level 137 mmol/L (136-145)
[2022-05-28 12:48] LABS: Hemoglobin A1c 6.6 % (3.8-5.6)
== END | disposition home or self-care (01) ==
LOC: MTLAB 10:05
PROVIDERS: PCP Family Medicine; Referring Provider Internal Medicine Endocrinology, Diabetes & Metabolism; Visit Provider Internal Medicine Endocrinology, Diabetes & Metabolism
DX: E11.21 Type 2 diabetes mellitus with diabetic nephropathy (principal)
CPT/HCPCS: 36415; 80053; 83036

== ENCOUNTER → 2022-10-14 | Outpatient (CLI) | payer MEDICARE, OTHER, SELFPAY ==
[2022-10-14 10:46] LABS: Hemoglobin A1c 6.9 % (3.8-5.6)
[2022-10-14 10:59] LABS: Microalbumin:Creatinine Ratio 519.8 mg/g CRE (<30 mg/g CRE)
[2022-10-14 11:16] LABS: ALB/GLOB Ratio 1.1 RATIO (0.9-2.4); AST(SGOT) 25 U/L (15-37); Alanine Aminotransfer ALT/SGPT 23 U/L (13-56); Albumin, Serum 3.4 g/dL (3.2-5.0); Alkaline Phosphatase 54 U/L (45-117); Anion Gap 8 (5-15); BUN 22 mg/dL (7-18); BUN/Creat Ratio 29.2 RATIO (10-20); Calcium,Total 8.1 mg/dL (8.5-10.1); Chloride 108 mmol/L (98-107); Cholesterol 189 mg/dL (200); Creatinine, Serum 0.75 mg/dL (0.55-1.02); EST Glomerular Filtration Rate 79 mL/min (>60); Est Glom Filt Rate - Afr Amer 96 mL/min (>60); Globulin 3.2 g/dL (2.2-4.2); Glucose 85 mg/dL (74-106); High Density Lipoprotein 70 mg/dL; Potassium 3.5 mmol/L (3.5-5.1); Protein, Total 6.6 g/dL (6.4-8.2); Sodium Level 142 mmol/L (136-145); Thyroid Stim Hormone (TSH) 1.66 uIU/mL (0.358-3.74); Triglycerides 104 mg/dL; Very Low Density Lipoprotein 21 mg/dL (5-40)
== END | disposition home or self-care (01) ==
LOC: MTLAB 08:56
PROVIDERS: PCP Family Medicine; Referring Provider Internal Medicine Endocrinology, Diabetes & Metabolism; Visit Provider Internal Medicine Endocrinology, Diabetes & Metabolism
DX: E11.21 Type 2 diabetes mellitus with diabetic nephropathy (principal); E78.2 Mixed hyperlipidemia; E04.9 Nontoxic goiter, unspecified; E55.9 Vitamin D deficiency, unspecified
CPT/HCPCS: 36415; 80053; 80061; 82043; 82306; 82570; 83036; 84443

== ENCOUNTER → 2022-11-07 | Outpatient (CLI) | payer MEDICARE, OTHER, SELFPAY ==
[2022-11-07 12:27] LABS: Absolute Lymphocyte Count 1.45 X10^3/uL (0.83-4.51); Absolute Neutrophil Count 4.5 X10^3/uL (2.0-7.7); Basophil# 0.05 X10^3/uL; Basophil% 0.8 % (0-1); Eosinophil# 0.13 X10^3/uL; Hematocrit 40.1 % (37-47); Hemoglobin 12.5 g/dL (12.0-15.0); Lymphocyte # 1.45 X10^3/ul (0.83-4.51); Lymphocyte % 21.9 % (19-41); Mean Corp Hgb Conc 31.2 g/dL (32-36); Mean Corpuscular Hgb 31.5 pg (27.0-32.0); Monocyte# 0.45 X10^3/uL; Monocyte% 6.8 % (0-10); NRBC Flagged by Analyzer 0 % (0-5); Neutrophil # 4.53 X10^3/uL (2.7-7.7); Neutrophil % 68.2 % (47-70); Platelet Count 234 K/mm3 (150-450); RBC Distribution Width CV 12.5 % (11.6-14.6); RBC Distribution Width SD 46.5 fl (35.1-43.9); Red Blood Count 3.97 M/mm3 (4.2-5.4); White Blood Count 6.6 K/mm3 (4.4-11.0)
[2022-11-07 12:45] LABS: PTHIN 28.5 pg/mL (18.4-80.1)
[2022-11-07 12:54] LABS: Vitamin B12 1572 pg/mL (211-911); Vitamin D,25 Hydroxy 67.5 ng/mL
[2022-11-07 14:07] LABS: ALB/GLOB Ratio 0.9 RATIO (0.9-2.4); AST(SGOT) 40 U/L (15-37); Alanine Aminotransfer ALT/SGPT 41 U/L (13-56); Albumin, Serum 3.2 g/dL (3.2-5.0); Alkaline Phosphatase 63 U/L (45-117); Anion Gap 6 (5-15); BUN 13 mg/dL (7-18); Chloride 105 mmol/L (98-107); Creatinine, Serum 0.93 mg/dL (0.55-1.02); EST Glomerular Filtration Rate 62 mL/min (>60); Est Glom Filt Rate - Afr Amer 75 mL/min (>60); Ferritin 56 ng/mL (8-252); Globulin 3.4 g/dL (2.2-4.2); Glucose 304 mg/dL (74-106); Iron 63 ug/dL (50-170); Iron Binding Capacity,Total 351 ug/dL (250-450); PERCENT IRON SATURATION 17.9 % (15.0-55.0); Potassium 4.7 mmol/L (3.5-5.1); Protein, Total 6.6 g/dL (6.4-8.2); Sodium Level 137 mmol/L (136-145)
[2022-11-12 08:11] LABS: Copper, Serum or Plasma 96 ug/dL (80-158); Zinc, Plasma or Serum 87 ug/dL (44-115)
== END | disposition home or self-care (01) ==
LOC: MTLAB 09:39
PROVIDERS: PCP Family Medicine
DX: K90.9 Intestinal malabsorption, unspecified (principal); E11.21 Type 2 diabetes mellitus with diabetic nephropathy; E11.22 Type 2 diabetes mellitus with diabetic chronic kidney disease; E21.3 Hyperparathyroidism, unspecified; E55.9 Vitamin D deficiency, unspecified; N18.2 Chronic kidney disease, stage 2 (mild)
CPT/HCPCS: 36415; 80053; 82306; 82525; 82607; 82728; 82746; 83540; 83550; 83970; 84425; 84630; 85025

== ENCOUNTER → 2023-01-08 | Outpatient (CLI) | payer MEDICARE, OTHER, SELFPAY ==
[2023-01-08 12:34] LABS: Hemoglobin A1c 6.8 % (3.8-5.6)
[2023-01-08 12:37] LABS: ALB/GLOB Ratio 0.9 RATIO (0.9-2.4); AST(SGOT) 18 U/L (15-37); Alanine Aminotransfer ALT/SGPT 25 U/L (13-56); Albumin, Serum 3.2 g/dL (3.2-5.0); Alkaline Phosphatase 62 U/L (45-117); Anion Gap 6 (5-15); BUN 16 mg/dL (7-18); Chloride 100 mmol/L (98-107); EST Glomerular Filtration Rate 57 mL/min (>60); Est Glom Filt Rate - Afr Amer 69 mL/min (>60); Globulin 3.4 g/dL (2.2-4.2); Glucose 130 mg/dL (74-106); Phosphorus 4.1 mg/dL (2.5-4.9); Potassium 4.4 mmol/L (3.5-5.1); Protein, Total 6.6 g/dL (6.4-8.2); Sodium Level 136 mmol/L (136-145); Thyroid Stim Hormone (TSH) 1.11 uIU/mL (0.358-3.74)
[2023-01-08 16:00] LABS: Microalbumin:Creatinine Ratio 229.8 mg/g CRE (<30 mg/g CRE)
== END | disposition home or self-care (01) ==
PROVIDERS: PCP Family Medicine; Referring Provider Internal Medicine Nephrology; Visit Provider Internal Medicine Nephrology
DX: E11.21 Type 2 diabetes mellitus with diabetic nephropathy (principal); E11.22 Type 2 diabetes mellitus with diabetic chronic kidney disease; E04.9 Nontoxic goiter, unspecified; N18.2 Chronic kidney disease, stage 2 (mild)
CPT/HCPCS: 36415; 80053; 82043; 82570; 83036; 84100; 84443

== ENCOUNTER → 2023-04-28 | Outpatient (CLI) | payer MEDICARE, OTHER, SELFPAY ==
[2023-04-28 15:52] LABS: Hemoglobin A1c 6.3 % (3.8-5.6)
[2023-04-28 15:55] LABS: ALB/GLOB Ratio 0.9 RATIO (0.9-2.4); AST(SGOT) 26 U/L (15-37); Alanine Aminotransfer ALT/SGPT 28 U/L (13-56); Albumin, Serum 3.6 g/dL (3.2-5.0); Alkaline Phosphatase 76 U/L (45-117); Anion Gap 7 (5-15); BUN 14 mg/dL (7-18); Chloride 98 mmol/L (98-107); Creatinine, Serum 0.93 mg/dL (0.55-1.02); EST Glomerular Filtration Rate 62 mL/min (>60); Est Glom Filt Rate - Afr Amer 75 mL/min (>60); Globulin 4.1 g/dL (2.2-4.2); Glucose 115 mg/dL (74-106); Magnesium 2.6 mg/dL (1.6-2.6); Potassium 3.7 mmol/L (3.5-5.1); Protein, Total 7.7 g/dL (6.4-8.2); Sodium Level 135 mmol/L (136-145)
[2023-04-29 09:47] LABS: PTHIN 59.9 pg/mL (18.4-80.1)
[2023-05-01 18:12] LABS: Mucous, Urine 0 SEEN /hpf (<or=2+)
[2023-05-01 18:18] LABS: Color, Urine Yellow (Yellow); Glucose, Dipstick 1000 mg/dl (Normal); Ketone-Dipstick Negative (Negative); Leukocyte Esterase-Dipstick 500 /ul (Negative); Nitrite-Dipstick Negative (Negative); Occult Blood-Urine 250 /ul (Negative); Protein-Dipstick 100 mg/dl (Negative); Specific Gravity, Urine 1.015 (1.002-1.030); Urine Bilirubin Dipstick Negative (Negative); Urine Clarity Sl. Cloudy (Clear); Urine Urobilinogen Normal (Normal)
[2023-05-01 18:35] LABS: Bacteria 2+ /hpf (None Seen); Red Blood Cells-Urine 5-10 SEEN /hpf (0-5); White Blood Cells 25-50 SEEN /hpf (0-5)
[2023-05-01 18:36] LABS: Squamous Epithelial Cells - UA 0-5 SEEN /hpf (5-10)
== END | disposition home or self-care (01) ==
LOC: MTLAB 11:26
PROVIDERS: PCP Family Medicine; Referring Provider Internal Medicine Endocrinology, Diabetes & Metabolism; Visit Provider Internal Medicine Endocrinology, Diabetes & Metabolism
DX: E11.21 Type 2 diabetes mellitus with diabetic nephropathy (principal); E83.42 Hypomagnesemia; R35.0 Frequency of micturition
CPT/HCPCS: 36415; 80053; 81001; 83036; 83735; 83970; 87077; 87086; 87088; 87186

== ENCOUNTER → 2023-05-01 | Outpatient (CLI) | payer MEDICARE, OTHER, SELFPAY | END | disposition home or self-care (01) | LOC: MFPLAB 16:02 | PROVIDERS: PCP Family Medicine; Visit Provider Family Medicine | DX: Z00.00 Encounter for general adult medical examination without abnormal findings (principal) ==

== ENCOUNTER → 2023-05-08 | Outpatient (CLI) | payer MEDICARE, OTHER, SELFPAY ==
[2023-05-08 12:30] LABS: Erythrocyte Sedimentation Rate 4 mm/hr (0-30)
[2023-05-08 12:53] LABS: Vitamin B12 1363 pg/mL (211-911)
[2023-05-08 13:01] LABS: CRP < 2.90 mg/L (0.0-3.0)
[2023-05-12 17:07] LABS: Arsenic 7245 4 ug/L (0-9); Immunoglobulin A 230 mg/dL (64-422); Immunoglobulin G 749 mg/dL (586-1602); Immunoglobulin M 128 mg/dL (26-217); Lead, Blood < 1.0 ug/dL (0.0-3.4); Mercury, Blood 85324 < 1.0 ug/L (0.0-14.9); PROEL- A/G Ratio 1.5 (0.7-1.7); PROEL- Albumin 3.8 g/dL (2.9-4.4); PROEL- Alpha-1 Globulin 0.1 g/dL (0.0-0.4); PROEL- Alpha-2 Globulin 0.8 g/dL (0.4-1.0); PROEL- Beta Globulin 0.9 g/dL (0.7-1.3); PROEL- Gamma Globulin 0.7 g/dL (0.4-1.8); PROEL- Globulin, Total 2.5 g/dL (2.2-3.9); PROEL- TOTAL PROTEIN 6.3 g/dL (6.0-8.5); PROEL-M-Spike Not Observed g/dL (Not Observed); PROELU- Albumin, Urine 61.1 % (.); PROELU- Beta Globulin, Ur 16.6 % (.); PROELU- Gamma Globulin, Ur 12.2 % (.); Total Protein, Ur 28.2 mg/dL (Not Estab.)
== END | disposition home or self-care (01) ==
LOC: MTLAB 10:33
PROVIDERS: PCP Family Medicine; Referring Provider Psychiatry & Neurology Neurology; Visit Provider Psychiatry & Neurology Neurology
DX: G95.9 Disease of spinal cord, unspecified (principal)
CPT/HCPCS: 36415; 82175; 82607; 82784; 83655; 83825; 84165; 84166; 85652; 86140; 86334

== ENCOUNTER → 2023-05-22 | Outpatient (CLI) | payer MEDICARE, OTHER, SELFPAY ==
[2023-06-04 12:08] LABS: Albumin 3.3 g/dL (2.9-4.4); Alpha-1-Globulins 0.2 g/dL (0.0-0.4); Alpha-2-Globulins 0.9 g/dL (0.4-1.0); Arsenic 7245 2 ug/L (0-9); Gamma Globulin 0.8 g/dL (0.4-1.8); Immunoglobulin A 229 mg/dL (64-422); Immunoglobulin G 725 mg/dL (586-1602); Immunoglobulin M 138 mg/dL (26-217); Lead, Blood < 1.0 ug/dL (0.0-3.4); Mercury, Blood 85324 < 1.0 ug/L (0.0-14.9); PROEL- TOTAL PROTEIN 6.2 g/dL (6.0-8.5); PROELU- Albumin, Urine 51.6 % (.); PROELU- Alpha-1-Globulin,Ur 2.8 % (.); PROELU- Alpha-2-Globulin,Ur 6.4 % (.); PROELU- Gamma Globulin, Ur 23.1 % (.); Total Protein, Ur 40.3 mg/dL (Not Estab.)
== END | disposition home or self-care (01) ==
LOC: MTLAB 11:08
PROVIDERS: PCP Family Medicine; Referring Provider Psychiatry & Neurology Neurology; Visit Provider Psychiatry & Neurology Neurology
DX: G95.9 Disease of spinal cord, unspecified (principal)
CPT/HCPCS: 36415; 82175; 82784; 83655; 83825; 84165; 84166; 86334

== ENCOUNTER → 2023-06-06 | Outpatient (CLI) | payer MEDICARE, OTHER, SELFPAY ==
[2023-06-06 18:23] LABS: Anion Gap 7 (5-15); BUN 23 mg/dL (7-18); BUN/Creat Ratio 27.9 RATIO (10-20); Calcium,Total 8.6 mg/dL (8.5-10.1); Chloride 96 mmol/L (98-107); Creatinine, Serum 0.82 mg/dL (0.55-1.02); EST Glomerular Filtration Rate 72 mL/min (>60); Est Glom Filt Rate - Afr Amer 87 mL/min (>60); Glucose 137 mg/dL (74-106); Potassium 3.8 mmol/L (3.5-5.1); Sodium Level 132 mmol/L (136-145)
== END | disposition home or self-care (01) ==
LOC: MTLAB 14:45
PROVIDERS: PCP Family Medicine; Referring Provider Nurse Practitioner Gerontology; Visit Provider Nurse Practitioner Gerontology
DX: I10 Essential (primary) hypertension (principal)
CPT/HCPCS: 36415; 80048

== ENCOUNTER → 2023-10-29 | Outpatient (CLI) | payer MEDICARE, OTHER, SELFPAY ==
[2023-10-29 12:54] LABS: Anion Gap 7 (5-15); BUN 17 mg/dL (7-18); BUN/Creat Ratio 18.7 RATIO (10-20); Calcium,Total 9.1 mg/dL (8.5-10.1); Chloride 100 mmol/L (98-107); Creatinine, Serum 0.91 mg/dL (0.55-1.02); EST Glomerular Filtration Rate 64 mL/min (>60); Est Glom Filt Rate - Afr Amer 77 mL/min (>60); Glucose 213 mg/dL (74-106); Potassium 3.3 mmol/L (3.5-5.1); Sodium Level 139 mmol/L (136-145)
[2023-10-29 15:10] LABS: BNP,B-Type NATRIURETIC PEPTIDE 192.9 pg/mL (0-100)
== END | disposition home or self-care (01) ==
LOC: MTLAB 10:38
PROVIDERS: PCP Family Medicine; Referring Provider Nurse Practitioner Gerontology; Visit Provider Nurse Practitioner Gerontology
DX: R06.02 Shortness of breath (principal); R60.0 Localized edema
CPT/HCPCS: 36415; 80048; 83880

== ENCOUNTER → 2023-10-31 | Outpatient (CLI) | payer MEDICARE, OTHER, SELFPAY ==
--- NOTE | 2023-10-31 12:59 | CDU_ITS ---
Reason For Study: BL Carotid Bruit Rt. Velocities/BP Lt. Velocities/BP Prox CCA 64.5/12.5 cm/sec. Prox CCA 77.2/9.7 cm/sec. Mid CCA 56.6/10.3 cm/sec. Mid CCA 62.5/9.7 cm/sec. Dist CCA 72.1/12.7 cm/sec. Dist CCA 67.4/12.2 cm/sec. Prox ICA 84.6/15.8 cm/sec. Prox ICA 61.3/8.5 cm/sec. Mid ICA 121.3/27.7 cm/sec. Mid ICA 69.5/15.6 cm/sec. Dist ICA 100.7/21.4 cm/sec. Dist ICA 72.2/17.6 cm/sec. Rt. ICA/CCA = 2.1. Lt. ICA/CCA = 1.2. Prox ECA 120.5/0.0 cm/sec. Prox ECA 66.2/2.3 cm/sec. Rt. Vert. 52.8/6.5 cm/sec. Lt. Vert. 39.2/8.6 cm/sec. Right Extracranial There is intimal thickening but no significant atherosclerotic plaque noted in the right common carotid artery. There is heterogeneous, irregular atherosclerotic plaque noted in the right internal carotid artery. The right internal carotid artery is very tortuous. There is heterogeneous, irregular atherosclerotic plaque noted in the right external carotid artery. Antegrade flow is noted in the right vertebral artery. Left Extracranial There is intimal thickening but no significant atherosclerotic plaque noted in the left common carotid artery. There is heterogeneous, irregular atherosclerotic plaque noted in the left internal carotid artery. The left internal carotid artery is very tortuous. There is heterogeneous, irregular atherosclerotic plaque noted in the left external carotid artery. Antegrade flow is noted in the left vertebral artery. VL/Carotid Duplex Ultrasound Interpretation Summary Mild (<50%) stenosis right extracranial internal carotid. Mild (<50%) stenosis left extracranial internal carotid. Patent and antegrade vertebrals bilaterally. Ordering Physician: Chris Campoverde Referring Physician: Hugo Julio MD Performed By: Evelio Marie RVT and Student
== END | disposition home or self-care (01) ==
LOC: CVS 12:59
PROVIDERS: PCP Family Medicine; Referring Provider Psychiatry & Neurology Neurology; Visit Provider Psychiatry & Neurology Neurology
DX: R09.89 Other specified symptoms and signs involving the circulatory and respiratory systems (principal)
CPT/HCPCS: 93880

== ENCOUNTER → 2023-11-05 | Outpatient (CLI) | payer MEDICARE, OTHER, SELFPAY ==
[2023-11-05 18:17] LABS: Anion Gap 6 (5-15); BUN 25 mg/dL (7-18); BUN/Creat Ratio 22.7 RATIO (10-20); Chloride 101 mmol/L (98-107); EST Glomerular Filtration Rate 51 mL/min (>60); Est Glom Filt Rate - Afr Amer 62 mL/min (>60); Glucose 126 mg/dL (74-106); Potassium 4.4 mmol/L (3.5-5.1); Sodium Level 136 mmol/L (136-145)
[2023-11-07 18:50] LABS: Microalbumin:Creatinine Ratio 71.8 mg/g CRE (<30 mg/g CRE)
== END | disposition home or self-care (01) ==
PROVIDERS: Nurse Practitioner Family; PCP Family Medicine; Referring Provider Internal Medicine Nephrology; Visit Provider Internal Medicine Nephrology
DX: E11.21 Type 2 diabetes mellitus with diabetic nephropathy (principal)
CPT/HCPCS: 36415; 80048; 82043; 82570

== ENCOUNTER → 2023-11-18 | Outpatient (CLI) | payer MEDICARE, OTHER, SELFPAY ==
--- NOTE | 2023-11-18 11:20 | RAD_ITS ---
PROCEDURE: Fluoroscopic guided right shoulder Injection DATE: November 18, 2023 INDICATION: Female, 78 years old. Chronic right shoulder pain PHYSICIAN: Jim Arroyo M.D. MEDICATIONS: 12 mg of betamethasone and 4 cc of 1% lidocaine. 2% lidocaine administered subcutaneously for local anesthesia. ACCESS SITE: Right shoulder. NEEDLE: 22-gauge spinal needle. FLUOROSCOPY TIME (if supplied): (1:03) minutes/seconds. 11.86 mGy. One image was submitted. FINDINGS: The risks, benefits, and alternatives to the procedure were explained to the patient. The specific risks of bleeding, infection, and neurovascular injury were detailed and accepted. Witnessed informed consent was obtained. A the needle was positioned under radiographic fluoroscopic localization. Approximately 2 cc of [id number]-300 instilled for localization purposes. Medication was then injected. The patient tolerated the procedure well without any immediate complications. RAD/Inj/Asp Hubert Jt Should/Hip/Knee IMPRESSION: 1. Successful fluoroscopic guided right shoulder injection. Electronically Signed: Jim Arroyo MD at 12:22 EDT ,
[2023-11-18] MEDS: Lidocaine 2% (5ml sdv) 5 ML VIAL.MPF INFILT (11:57)
[2023-11-18] MEDS: Lidocaine 1% (5 ml sdv) 5 ML Vial 4 ML OPERA.SITE (11:59)
[2023-11-18] MEDS: Betamethasone/Betamethasone 30 MG/5 ML Vial 12 MG INTRAARTIC (11:59)
== END | disposition home or self-care (01) ==
LOC: RAD 11:14
PROVIDERS: PCP Family Medicine; Referring Provider Specialist; Visit Provider Specialist
DX: M19.011 Primary osteoarthritis, right shoulder (principal); M25.511 Pain in right shoulder
CPT/HCPCS: 20610; 36415; 77002; 80053; 82306; 82525; 82607; 82728; 82746; 83540; 83550; 83970; 83993; 84425; 84630; 85025; J0702

== ENCOUNTER → 2023-11-18 | Outpatient (CLI) | payer MEDICARE, OTHER, SELFPAY ==
[2023-11-18 15:28] LABS: Absolute Lymphocyte Count 1.46 X10^3/uL (0.83-4.51); Absolute Neutrophil Count 8.6 X10^3/uL (2.0-7.7); Basophil# 0.03 X10^3/uL; Basophil% 0.3 % (0-1); Eosinophil# 0.08 X10^3/uL; Eosinophils% 0.7 % (0-5); Hematocrit 36.2 % (37-47); Hemoglobin 11.6 g/dL (12.0-15.0); Lymphocyte # 1.46 X10^3/ul (0.83-4.51); Lymphocyte % 13.2 % (19-41); Mean Corpuscular Hgb 30.1 pg (27.0-32.0); Mean Corpuscular Volume 93.8 fL (81-99); Mean Platelet Vol. 10.9 fl (6.2-12.0); Monocyte# 0.83 X10^3/uL; Monocyte% 7.5 % (0-10); NRBC Flagged by Analyzer 0 % (0-5); Neutrophil # 8.61 X10^3/uL (2.7-7.7); Neutrophil % 77.9 % (47-70); Platelet Count 240 K/mm3 (150-450); RBC Distribution Width CV 14.1 % (11.6-14.6); RBC Distribution Width SD 48.3 fl (35.1-43.9); Red Blood Count 3.86 M/mm3 (4.2-5.4); White Blood Count 11.1 K/mm3 (4.4-11.0)
[2023-11-18 16:09] LABS: PTHIN 24.7 pg/mL (18.4-80.1)
[2023-11-18 16:12] LABS: Vitamin B12 1373 pg/mL (211-911); Vitamin D,25 Hydroxy 57.8 ng/mL
[2023-11-18 16:48] LABS: ALB/GLOB Ratio 0.9 RATIO (0.9-2.4); AST(SGOT) 42 U/L (15-37); Alanine Aminotransfer ALT/SGPT 25 U/L (13-56); Albumin, Serum 3.3 g/dL (3.2-5.0); Alkaline Phosphatase 129 U/L (45-117); Anion Gap 6 (5-15); BUN 44 mg/dL (7-18); BUN/Creat Ratio 38.6 RATIO (10-20); Calcium,Total 9.3 mg/dL (8.5-10.1); Chloride 95 mmol/L (98-107); Creatinine, Serum 1.14 mg/dL (0.55-1.02); EST Glomerular Filtration Rate 49 mL/min (>60); Est Glom Filt Rate - Afr Amer 59 mL/min (>60); Ferritin 85 ng/mL (8-252); Globulin 3.8 g/dL (2.2-4.2); Glucose 127 mg/dL (74-106); Iron 74 ug/dL (50-170); Iron Binding Capacity,Total 377 ug/dL (250-450); PERCENT IRON SATURATION 19.6 % (15.0-55.0); Potassium 5.1 mmol/L (3.5-5.1); Protein, Total 7.1 g/dL (6.4-8.2); Sodium Level 127 mmol/L (136-145)
[2023-11-23 03:06] LABS: Copper, Serum or Plasma 118 ug/dL (80-158); Vitamin B1, Thiamine 208.5 nmol/L (66.5-200.0); Zinc, Plasma or Serum 66 ug/dL (44-115)
[2023-11-24 20:07] LABS: Calprotectin, Stool 324 ug/g (0-120)
== END | disposition home or self-care (01) ==
PROVIDERS: PCP Family Medicine; Referring Provider Internal Medicine; Visit Provider Internal Medicine
DX: K90.9 Intestinal malabsorption, unspecified (principal)
CPT/HCPCS: 36415; 80053; 82306; 82525; 82607; 82728; 82746; 83540; 83550; 83970; 83993; 84425; 84630; 85025; 87493

== ENCOUNTER → 2023-11-19 | Outpatient (CLI) | payer MEDICARE, OTHER, SELFPAY ==
--- NOTE | 2023-11-19 14:58 | ECHOD_ITS ---
Reason For Study: CHF Procedure This was a 2D Doppler, Color Flow transthoracic echocardiogram. Exam performed in department. Left Ventricle Normal LV size. Mild concentric left ventricular hypertrophy. Left ventricular systolic function is normal. Stage 1 diastolic dysfunction. No regional wall motion abnormalities noted. Right Ventricle Normal RV size. Normal systolic function. Atria Normal left atrium. Normal right atrium. Mitral Valve Mild focal mitral valve calcification, bileaflet. Tricuspid Valve Normal tricuspid valve. Aortic Valve Trisinus/trileaflet aortic valve. Moderate focal aortic valve calcification. Peak aortic valve gradient 38 mmHg. Mean aortic valve gradient 22 mmHg. Mild to moderate aortic stenosis. Mild (1+) aortic valve insufficiency. Pulmonic Valve Normal pulmonic valve. Great Vessels Normal aortic root. The pulmonary artery is normal size. Inferior vena cava collapse with respiration. Pericardium/Pleural No pericardial effusion. MMode/2D Measurements & Calculations LVIDd: 4.7 cm IVSd: 1.3 cm LVOT diam: 2.0 cm LVIDs: 2.7 cm LVPWd: 1.3 cm LVOT area: 3.0 cm2 RVDd: 2.6 cm FS: 41.8 % Ao root diam: 3.3 cm LAV(MOD-bp): 48.8 ml LVAd ap4: 25.9 cm2 LAV(MOD-bp) Indexed: 30.4 ml/m2 LVLd ap4: 7.1 cm LAV(MOD-sp2): 49.4 ml EDV(MOD-sp4): 78.8 ml LAV(MOD-sp4): 47.5 ml EDV(sp4-el): 80.6 ml LVAs ap4: 14.3 cm2 LVLs ap4: 6.0 cm ESV(MOD-sp4): 31.4 ml ESV(sp4-el): 29.2 ml EF(MOD-sp4): 60.1 % EF(sp4-el): 63.8 % SV(MOD-sp4): 47.4 ml SV(sp4-el): 51.4 ml LA A4 area: 16.8 cm2 LA dimension(2D): 4.1 cm RA A4 area: 11.0 cm2 TAPSE: 2.5 cm Time Measurements MV dec time: 0.24 sec Doppler Measurements & Calculations MV E max dale: 79.2 cm/sec Lat Peak E' Dale: 6.6 cm/sec Med Peak E' Dale: 4.7 cm/sec MV A max dale: 111.7 cm/sec E/E' lat: 11.9 E/E' med: 17.0 MV E/A: 0.71 MV V2 max: 122.8 cm/sec MV P1/2t max dale: 91.9 cm/sec Ao V2 max: 309.0 cm/sec MV max P.0 mmHg MV P1/2t: 74.2 msec Ao max P.2 mmHg MV V2 mean: 53.8 cm/sec Ao V2 mean: 222.0 cm/sec MV mean P.5 mmHg MV dec slope: 362.9 cm/sec2 Ao mean P.6 mmHg MV V2 VTI: 39.3 cm MVA(P1/2t): 3.0 cm2 Ao V2 VTI: 74.1 cm AV (velocity ratio): 0.35 MVA(VTI): 2.0 cm2 GISELLE(I,D): 1.1 cm2 GISELLE(V,D): 1.1 cm2 AI max dale: 431.1 cm/sec LV V1 max: 115.1 cm/sec SV(LVOT): 78.1 ml AI max P.4 mmHg LV V1 max P.3 mmHg LV V1 mean P.9 mmHg AI dec slope: 329.4 cm/sec2 LV V1 mean: 81.0 cm/sec AI P1/2t: 383.3 msec LV V1 VTI: 25.8 cm PA V2 max: 87.1 cm/sec PA V2 mean: 57.8 cm/sec ECHO/Echo Complete Interpretation Summary Normal LV size. Left ventricular systolic function is normal. Stage 1 diastolic dysfunction. Moderate focal aortic valve calcification. Mean aortic valve gradient 22 mmHg. Mild (1+) aortic valve insufficiency. Mild to moderate aortic stenosis. Ordering Physician: Artis Lara Referring Physician: Hugo Julio Performed By: Salud Magana RDCS, RVT
== END | disposition home or self-care (01) ==
LOC: CVS 14:55
PROVIDERS: PCP Family Medicine; Referring Provider Nurse Practitioner Family; Visit Provider Nurse Practitioner Family
DX: I35.0 Nonrheumatic aortic (valve) stenosis (principal); I10 Essential (primary) hypertension; R60.0 Localized edema
CPT/HCPCS: 93306

== ENCOUNTER → 2023-11-25 | Outpatient (CLI) | payer MEDICARE, OTHER, SELFPAY ==
--- NOTE | 2023-11-25 17:28 | RAD_ITS ---
STUDY: X-RAY - PELVIS AND LEFT HIP REASON FOR EXAM: Female, 78 years old. HIP PROBLEM TECHNIQUE: 3 views of the pelvis and left hip. COMPARISON: Left hip radiographs dated 11/08/2010. FINDINGS: There is a neurostimulator battery pack overlying the left pelvic region. There is degenerative disc disease in the visualized lumbosacral spine. There are 2 fixation/fusion screws across the right sacroiliac joint. There are atherosclerotic vascular calcifications of the pelvic and femoral arteries. There is a suspected new fracture of the left inferior pubic ramus. Normal pubic symphysis. There is persistent mild degenerative arthrosis of the left hip joint with mild marginal osteophyte formation. RAD/HIP, UNI W/ Pelvis 2-3 Views IMPRESSION: Suspected new fracture of the left inferior pubic ramus. 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 Electronically Signed: Phil Buck MD at 12:38 EDT ,
--- NOTE | 2023-11-25 17:29 | RAD_ITS ---
HISTORY: HIP PROBLEM. TECHNIQUE: XR Spine Lumbar 2 or 3 Views. COMPARISON: None. FINDINGS: VERTEBRAE: Mild anterior wedging of T12 and L1. Right sacroiliac fusion hardware. ALIGNMENT: No significant anterior or posterior subluxation. Mild dextroscoliosis. INTERVERTEBRAL DISCS: Advanced degenerative endplate changes with osteophytes and intervertebral disc space narrowing at multiple levels. SOFT TISSUES: Surgical clips in the abdomen. Thoracic spinal stimulator noted. RAD/Lumbar Spine 2 or 3 Views IMPRESSION: Chronic appearing mild T12 and L1 compression fractures. Advanced multilevel degenerative change. Mild scoliosis. Electronically Signed: Jessica Abdullahi MD at 9:01 EDT ,
== END | disposition home or self-care (01) ==
LOC: MTRAD 17:26
PROVIDERS: PCP Family Medicine; Referring Provider Family Medicine; Visit Provider Family Medicine
DX: M25.9 Joint disorder, unspecified (principal)
CPT/HCPCS: 72100; 73502

== ENCOUNTER 2023-12-03 12:37 | Emergency (ER) | payer MEDICARE, OTHER, SELFPAY ==
[2023-12-03 12:38] VITALS: BP 159/55; PULSE 70; RESP 16; TEMP 35.9; O2SAT 98
[2023-12-03 14:38] VITALS: BP 192/70; PULSE 70; RESP 16; O2SAT 96
--- NOTE | 2023-12-03 15:28 | EDS_ITS ---
HPI HPI - GI History of Present Illness Chief Complaint: Abd Pain Informant: patient Abdominal Pain/Flank Pain Onset: Weeks (2) Context: Gradual Onset Timing: Continuous Quality: Sharp and Stabbing Location: Left Flank Worsened by: - (Standing, ambulating) Relieved by: - (Tramadol, he) Nausea/Vomiting/Emesis GI Symptom: Negative for Nausea or Vomiting Diarrhea/Melena/Hematochezia GI Symptom: Negative for Diarrhea, Melena or Hematochezia Associated Symptoms Associated Symptoms: Negative for Dysuria, Frequency or Hematuria Narrative Narrative: Patient presents with left flank pain and pelvic pain that has been getting progressively worse over the past 2 weeks[address] Patient had a CT scan of her pelvis today which showed extraluminal air around the bladder. It is more pronounced in the right anterolateral margin of the bladder. There were also left superior and inferior pubic rami fractures that were subacute. Patient was then referred to the emergency department for further evaluation. Patient states she fell approximately 2 weeks ago and had a fracture of her pelvis. Patient has been having some increasing pain since the fall. Patient states the pain is worse with standing and walking. Patient states the pain is better with tramadol and heat. Patient states that her pain is starting to go into her back. Patient denies any fevers or chills. Patient denies any dysuria or hematuria. [facility] Medical History Nonrheumatic aortic (valve) stenosis Lower extremity edema Essential hypertension Wears glasses Post-menopausal Abrasion Walker as ambulation aid Easy bruising Back pain History of IBS Non-smoker History of pain when walking History of edema Mild cognitive impairment Low sodium levels Steroid-induced psychosis Cystocele Heel spur Vitamin deficiency Skin cancer GERD (gastroesophageal reflux disease) Osteoporosis Osteoarthritis Kidney stones Kidney disease IBS (irritable bowel syndrome) Gout Gallstones Breast lump Bone fracture UTI (urinary tract infection) Abnormal ultrasound of breast Skin lesion Constipation Diarrhea Arthritis History of back problems Diabetes History of change in bowel patterns Hiatal hernia Home Medications ?Medication ?Instructions ?Recorded ?Last Taken ?Type lactobacillus combination no.8 3 3,000 mmu cells PO DAILY 11/24/18 Unknown History billion cell capsule (Adult Probiotic) pantoprazole 40 mg tablet,delayed 40 mg PO DAILY 02/03/20 Unknown History release finerenone 10 mg tablet (Kerendia) 10 mg PO DAILY 04/30/22 Unknown History dapagliflozin propanediol 10 mg 10 mg PO DAILY 05/09/22 Unknown History tablet (Farxiga) denosumab 60 mg/mL subcutaneous 60 mg subcut [id number] 10/31/22 Unknown History syringe (Prolia) mirabegron 25 mg tablet,extended 25 mg PO DAILY 10/31/22 Unknown History release 24 hr (Myrbetriq) gabapentin 300 mg capsule 300 mg PO TID 06/06/23 Unknown History (Neurontin) melatonin 3 mg tablet 6 mg PO QHS 06/06/23 Unknown History calcium citrate 200 mg (950 mg) 400 mg PO DAILY 11/18/23 Unknown History tablet carvedilol 25 mg tablet 25 mg PO ONCE 11/18/23 Unknown History cholestyramine (with sugar) 4 gram ea PO 11/18/23 Unknown History powder for susp in a packet furosemide 20 mg tablet 40 mg PO DAILY 11/18/23 Unknown History haloperidol 0.5 mg tablet 0.5 mg PO DAILY 11/18/23 Unknown History hydralazine 25 mg tablet 25 mg PO ONCE 11/18/23 Unknown History methylcellulose (laxative) 500 mg 1,000 mg PO DAILY 11/18/23 Unknown History tablet (Citrucel) olanzapine 2.5 mg tablet 2.5 mg PO DAILY 11/18/23 Unknown History telmisartan 20 mg tablet 40 mg PO BID 11/18/23 Unknown History tramadol 25 mg tablet 25 mg PO Q6H PRN 11/18/23 Unknown History potassium chloride 20 mEq 20 meq PO DAILY #90 tabs 11/24/23 Unknown Rx tablet,extended release Allergy/AdvReac Type Severity Reaction Status Date / Time Corticosteroids AdvReac Severe Other Verified 12/03/23 12:38 (Glucocorticoids) NSAIDS (Non-Steroidal AdvReac Severe Other Verified 12/03/23 12:38 Anti-Inflamma Family History Grandfather Arthritis Colon cancer Liver disease Grandmother Arthritis Hypertension Anemia Mother Arthritis Osteoporosis Father Hypertension Arthritis Liver disease Sister Arthritis Surgical History S/P insertion of spinal cord stimulator History of left heart catheterization History of open reduction and internal fixation (ORIF) procedure History of cardiac catheterization (2009) Hx of spinal fusion Hx of surgical procedure Hx of surgical procedure Hx laparoscopic cholecystectomy Hx of hysterectomy Hx of colonoscopy History of bursectomy H/O laminectomy Hx of cataract surgery H/O gastric bypass S/P vaginopexy History of repair of rectocele history excision melanoma forehead History of bilateral knee replacement Social History Smoking Status: Never smoker alcohol intake: never substance use type: does not use caffeine: No what type of physical activity do you participate in: other details: PT for strength & balance corinne/rastafarian: [employer] seatbelt use: always ROS ROS ED Constitutional Constitutional ED: Denies chills or fever(s) Eyes Eyes: Denies blurry vision or change in vision ENT ENT ED: Denies rhinorrhea or sore throat Cardiovascular Cardiovascular: Denies chest pain or palpitations Respiratory/Chest Respiratory/Chest: Denies cough or dyspnea Gastrointestinal Gastrointestinal: Reports abdominal pain; Denies nausea or vomiting Genitourinary Genitourinary ED: Denies dysuria or hematuria Musculoskeletal Musculoskeletal: Reports back pain; Denies neck pain Integumentary Denies abscess or rash Neurologic Neurologic: Denies headache(s) or weakness Allergic/Immunologic Allergic/Immunologic ED: Denies mouth swelling or urticaria EXAM Physical Exam Const Vital Signs: 12/03/23 12:38 12/03/23 14:38 12/03/23 16:00 Temperature 96.6 F L Temperature Source Temporal Pulse Rate 70 70 77 Respiratory Rate 16 16 18 Blood Pressure 159/55 H 192/70 H 203/76 H Blood Pressure Mean 89 110 118 Pulse Ox 98 96 96 Oxygen Delivery Method Room Air Room Air Room Air Oxygen Flow Rate (L/min) 12/03/23 16:49 12/03/23 16:49 12/03/23 18:00 Temperature Temperature Source Pulse Rate 72 Respiratory Rate 18 Blood Pressure 163/61 H Blood Pressure Mean 95 Pulse Ox 84 91 97 Oxygen Delivery Method Room Air Nasal Cannula Room Air Oxygen Flow Rate (L/min) 2 Positive well nourished and well developed General Appearance ED: well developed and NAD HEENT Reports moist mucous membranes Neck supple and no JVD Resp normal respiratory effort and clear to auscultation bilaterally Cardio regular rate and regular rhythm GI non-tender and non-distended Palpation: soft Extremity General Extremety ED: Negative for edema or tenderness General Extremity: Negative for edema Neuro CN's II-XII intact bilaterally, moves all extremities and no sensory deficits noted Sensorium / Orientation: alert Motor Exam: strength 5/5 throughout Psych mental status grossly normal and thought process normal MDM MDM MDM Narrative Medical decision making narrative: Differential diagnosis includes bowel perforation, urinary tract infection, ovarian cyst, diverticulitis, and colitis. Prior records were reviewed which sh owed a CT scan of the abdomen pelvis done earlier today with extraluminal gas in the extraperitoneal compartment of the pelvis and a CT scan of the abdomen pelvis with contrast was advised. This was ordered to assess for bowel perforation and bladder perforation. CBC will be obtained to assess for leukocytosis and anemia. Comprehensive metabolic profile will be obtained to assess for hepatic function, renal function, and electrolyte abnormality. Urinalysis will be obtained to assess for urinary tract infection and hematuria. Lab Data Attestation: I reviewed the patient's lab results. Lab results narrative: CBC was reviewed. There is a mild leukocytosis of 11.6. There is a mild anemia with a hemoglobin of 10.7 and hematocrit 32.6. Remainder is within normal limits. Comprehensive metabolic profile was reviewed. Sodium was slightly low at 128 and chloride was 91. BUN was slightly elevated at 38. Creatinine was normal. Alkaline phosphatase was slightly elevated at 192. Remainder is within normal limits. Urinalysis was reviewed. There is no evidence of urinary tract infection or hematuria. Labs: Laboratory Results - last 24 hr 12/03/23 12/03/23 15:14 15:50 WBC 11.6 H RBC 3.57 L Hgb 10.7 L Hct 32.6 L MCV 91.3 MCH 30.0 MCHC 32.8 RDW Std Deviation 47.1 H RDW Coeff of [place] 14.0 Plt Count 273 MPV 9.2 Immature Gran % (Auto) 0.700 Neut % (Auto) 78.4 H Lymph % (Auto) 13.6 L Loup % (Auto) 6.1 Eos % (Auto) 0.8 Baso % (Auto) 0.4 Absolute Neuts (auto) 9.1 H Absolute Lymphs (auto) 1.58 Nucleated RBC % 0 Sodium 128 L Potassium 3.8 Chloride 91 L Carbon Dioxide 28.0 Anion Gap 9 BUN 38 H Creatinine 0.88 Estim Creat Clear Calc 48.39 Est GFR (MDRD) Af Amer 80 Est GFR (MDRD) Non-Af 66 BUN/Creatinine Ratio 43.0 H Glucose 90 Calcium 9.4 Total Bilirubin 0.40 AST 16 ALT 23 Alkaline Phosphatase 192 H Total Protein 7.0 Albumin 3.2 Globulin 3.8 Albumin/Globulin Ratio 0.8 L Urine Color Yellow Urine Clarity Clear Urine pH 6.0 Ur Specific [place] 1.010 Urine Protein Negative Urine Glucose (UA) 100 H Urine Ketones Negative Urine Occult Blood Negative Urine Nitrite Negative Urine Bilirubin Negative Urine Urobilinogen Normal Ur Leukocyte Esterase 25 H Urine RBC 0 SEEN Urine WBC 0-5 SEEN Ur Squamous Epith Cells 0-5 SEEN Urine Bacteria 1+ Urine Mucus 0 SEEN Radiography Diagnostic Testing: Clinical Impression(s) from Imaging Studies Abdomen/Pelvis CT 12/03/23 15:51 IMPRESSION: Tiny air bubbles in the prevesical space of uncertain etiology possibly due to recent surgery or prior microperforation.. Nonspecific bladder distention. No evidence for small bowel obstruction or other acute abnormality with multiple postsurgical changes. Incidental finding of asymmetric density in the right breast of uncertain etiology. Recommended for correlation with mammography or ultrasound if this is a new finding. Electronically Signed: Michael Eid MD at 18:09 EDT , CT scan of the abdomen and pelvis was obtained. There are tiny air bubbles in the prevesical space of uncertain etiology. There is nonspecific bladder distention. There is no evidence of bowel obstruction. This was interpreted by the radiologist was also dependently reviewed by myself. Treatment and Re-Evaluation :: Patient was given IV fluids, morphine, and Zofran. Patient is feeling better on reevaluation. Patient states she feels hungry. Case was discussed with Dr. Oglesby from general surgery. He stated that the area could be from the pubic rami fractures. He states that he lives near the patient and knows him well. He states that they can follow-up with him if the pain would get worse. Patient and understand and are agreeable with the plan. All questions were answered. Discharge Plan Triage Chief Complaint: Abd Pain ED Provider: Hugo Rose Dx/Rx/DC Orders Clinical Impression: Fracture of pubic ramus, Diabetes mellitus Instructions: ED Pelvic Fracture, ED Pelvic Pain, Unknown Cause Prescriptions: No Action Adult Probiotic 3 billion cell capsule 3,000 mmu cells PO DAILY Kerendia 10 mg tablet 10 mg PO DAILY Prolia 60 mg/mL syringe 60 mg subcut [id number] Myrbetriq 25 mg tablet extended release 24 hr 25 mg PO DAILY gabapentin [Neurontin] 300 mg capsule 300 mg PO TID olanzapine 2.5 mg tablet 2.5 mg PO DAILY carvedilol 25 mg tablet 25 mg PO ONCE Citrucel 500 mg tablet 1,000 mg PO DAILY calcium citrate 200 mg (950 mg) tablet 400 mg PO DAILY cholestyramine (with sugar) 4 gram powder in packet PO hydralazine 25 mg tablet 25 mg PO ONCE haloperidol 0.5 mg tablet 0.5 mg PO DAILY tramadol 25 mg tablet 25 mg PO Q6H PRN telmisartan 20 mg tablet 40 mg PO BID pantoprazole 40 MG tablet 40 mg PO DAILY melatonin 3 mg tablet 6 mg PO QHS Farxiga 10 mg tablet 10 mg PO DAILY furosemide 20 mg tablet 40 mg PO DAILY Patient Comments: TAKE 1 TABLET BY MOUTH EVERY DAY potassium chloride 20 mEq tablet extended release 20 meq PO DAILY Qty: 90 3RF Primary Care Provider: Hugo Julio Referrals: Hugo Julio MD [Primary Care Provider] - Print Language: Bahamian
[2023-12-03 15:50] VITALS: BMI 38.3
[2023-12-03 15:51] LABS: Absolute Lymphocyte Count 1.58 X10^3/uL (0.83-4.51); Absolute Neutrophil Count 9.1 X10^3/uL (2.0-7.7); Basophil# 0.05 X10^3/uL; Basophil% 0.4 % (0-1); Eosinophil# 0.09 X10^3/uL; Eosinophils% 0.8 % (0-5); Hematocrit 32.6 % (37-47); Hemoglobin 10.7 g/dL (12.0-15.0); Lymphocyte # 1.58 X10^3/ul (0.83-4.51); Lymphocyte % 13.6 % (19-41); Mean Corp Hgb Conc 32.8 g/dL (32-36); Mean Corpuscular Volume 91.3 fL (81-99); Mean Platelet Vol. 9.2 fl (6.2-12.0); Monocyte# 0.71 X10^3/uL; Monocyte% 6.1 % (0-10); NRBC Flagged by Analyzer 0 % (0-5); Neutrophil % 78.4 % (47-70); Platelet Count 273 K/mm3 (150-450); RBC Distribution Width SD 47.1 fl (35.1-43.9); Red Blood Count 3.57 M/mm3 (4.2-5.4); White Blood Count 11.6 K/mm3 (4.4-11.0)
--- NOTE | 2023-12-03 15:51 | CT_ITS ---
STUDY: CT ABDOMEN AND PELVIS WITH CONTRAST REASON FOR EXAM: Female, 78 years old. Abdominal pain -- IV PO Contrast RADIATION DOSAGE (If Supplied By Facility): CTDIvol = ( 17.84 ) mGy, DLP = ( 920.36 ) mGycm TECHNIQUE: Transaxial images were obtained from the dome of the diaphragm to the symphysis pubis without oral contrast. Oral and amp; IV Gastrografin and amp; 100mL Isovue-370 was administered. Sagittal and coronal images were reconstructed. Individualized dose optimization techniques were used for this CT. COMPARISON: None. FINDINGS: The visualized lung bases are unremarkable . The heart size is normal. There is minor coronary artery calcification and calcification of aorta. Calcified right hilar nodes Asymmetric irregular density in the right breast possibly representing mass. Would recommend correlation with recent mammogram or ultrasound if this is new finding Small hiatal hernia noted. Mild nonspecific fatty infiltrated liver without mass or bile duct dilatation.. The bladder has been removed surgically. Normal spleen. Normal pancreas. Normal bilateral adrenal glands. 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 There is no hydronephrosis. There is a small left renal cyst which will not require additional imaging Postsurgical changes of the stomach.. Postop change status post small bowel resection left lower quadrant.. Mildly distended fecal filled colon. No evidence for acute appendicitis. Atherosclerotic changes of the aorta without evidence for aneurysm. Normal inferior vena cava. Normal retroperitoneum. Nonspecific bladder distention.. There are multiple tiny intraperitoneal air bubbles noted in the space of Retzius slightly to right of midline. Uterus not visualized status post hysterectomy Normal abdominal wall. Lumbar spine demonstrates advanced degenerative changes and multilevel chronic compression deformities. There are also postsurgical changes status post bilateral laminectomy at L5-S1 and L4-5. Postsurgical changes status post fusion of right sacroiliac joint CT/Abdomen/Pelvis WITH Contrast IMPRESSION: Tiny air bubbles in the prevesical space of uncertain etiology possibly due to recent surgery or prior microperforation.. Nonspecific bladder distention. No evidence for small bowel obstruction or other acute abnormality with multiple postsurgical changes. Incidental finding of asymmetric density in the right breast of uncertain etiology. Recommended for correlation with mammography or ultrasound if this is a new finding. Electronically Signed: Michael Eid MD at 18:09 EDT ,
[2023-12-03 16:00] VITALS: BP 203/76; PULSE 77; RESP 18; O2SAT 96
[2023-12-03 16:04] LABS: ALB/GLOB Ratio 0.8 RATIO (0.9-2.4); AST(SGOT) 16 U/L (15-37); Alanine Aminotransfer ALT/SGPT 23 U/L (13-56); Albumin, Serum 3.2 g/dL (3.2-5.0); Alkaline Phosphatase 192 U/L (45-117); Anion Gap 9 (5-15); BUN 38 mg/dL (7-18); Calcium,Total 9.4 mg/dL (8.5-10.1); Chloride 91 mmol/L (98-107); Creatinine, Serum 0.88 mg/dL (0.55-1.02); EST Glomerular Filtration Rate 66 mL/min (>60); Est Glom Filt Rate - Afr Amer 80 mL/min (>60); Estimated Creatinine Clearance 48.39 ml/min; Globulin 3.8 g/dL (2.2-4.2); Glucose 90 mg/dL (74-106); Potassium 3.8 mmol/L (3.5-5.1); Sodium Level 128 mmol/L (136-145)
[2023-12-03 16:14] LABS: Mucous, Urine 0 SEEN /hpf (<or=2+); Red Blood Cells-Urine 0 SEEN /hpf (0-5)
[2023-12-03] MEDS: Ondansetron 4 MG/2 ML Vial IV (16:15)
[2023-12-03] MEDS: Morphine 4 MG/ML Syringe IV (16:15)
[2023-12-03] MEDS: 0.9% Normal Saline (1000mL) 1,000 ML 1000 ML IV (16:15)
[2023-12-03 16:19] LABS: Color, Urine Yellow (Yellow); Glucose, Dipstick 100 mg/dl (Normal); Ketone-Dipstick Negative (Negative); Leukocyte Esterase-Dipstick 25 /ul (Negative); Nitrite-Dipstick Negative (Negative); Occult Blood-Urine Negative /ul (Negative); Protein-Dipstick Negative (Negative); Urine Bilirubin Dipstick Negative (Negative); Urine Clarity Clear (Clear); Urine Urobilinogen Normal (Normal)
[2023-12-03 16:32] LABS: Bacteria 1+ /hpf (None Seen); Squamous Epithelial Cells - UA 0-5 SEEN /hpf (5-10); White Blood Cells 0-5 SEEN /hpf (0-5)
[2023-12-03 16:49] VITALS: O2SAT 84; O2SAT 91
[2023-12-03 18:00] VITALS: BP 163/61; PULSE 72; RESP 18; O2SAT 97
[2023-12-03 19:17] VITALS: BP 163/61; PULSE 72; RESP 18; TEMP 36.9; O2SAT 97
== END 2023-12-03 19:42 | disposition home or self-care (01) ==
PROVIDERS: Emergency Provider Emergency Medicine; PCP Family Medicine; Visit Provider Emergency Medicine
DX: S32.502A Unspecified fracture of left pubis, initial encounter for closed fracture (principal); E11.9 Type 2 diabetes mellitus without complications; W19.XXXA Unspecified fall, initial encounter
CPT/HCPCS: 74177; 80053; 81001; 85025; 96361; 96374; 96375; 99283; J7030; Q9967; A4216; J2405

== ENCOUNTER → 2023-12-11 | Outpatient (CLI) | payer MEDICARE, OTHER, SELFPAY ==
--- NOTE | 2023-12-11 12:35 | CT_ITS ---
STUDY: CT ABDOMEN AND PELVIS WITH CONTRAST REASON FOR EXAM: Female, 78 years old. free air in abdomen RADIATION DOSAGE (If Supplied By Facility): CTDIvol = ( 14.57 ) mGy, DLP = ( 1066.27 ) mGycm TECHNIQUE: Transaxial images were obtained from the dome of the diaphragm to the symphysis pubis without oral contrast. Oral and amp; IV Readi-CAT and amp; 100mL Isovue-300 was administered. Sagittal and coronal images were reconstructed. Individualized dose optimization techniques were used for this CT. COMPARISON: 12/03/2023 FINDINGS: The visualized lung bases are unremarkable. Cardiomegaly. Normal liver. There are surgical clips in the gallbladder fossa consistent with a prior cholecystectomy. Normal spleen. Normal pancreas. Normal bilateral adrenal glands. 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 Normal left kidney. Status post gastric surgery, possibly gastric bypass. Normal small intestine. Normal colon. There is non-visualization of the appendix. Normal abdominal aorta. Normal inferior vena cava. Normal retroperitoneum. Normal urinary bladder. Interval resolution of the gas within the prevesical space. Normal abdominal wall. Mild dextroscoliosis lumbar spine with degenerative disc disease. Dorsal column spinal stimulator. Status post fixation of right sacroiliac joint. Healing fractures of the right superior and inferior pubic rami. CT/Abdomen/Pelvis WITH Contrast IMPRESSION: Interval resolution of gas in the prevesical space. Electronically Signed: Jerson Hsu MD at 19:21 EDT ,
--- NOTE | 2023-12-11 12:52 | BI_ITS ---
MAMMOGRAPHY - BILATERAL DIAGNOSTIC REASON FOR EXAM: Female, 78 years old. Possible right breast lump on prior CT scan. PERTINENT HISTORY: Non-contributory. TECHNIQUE: Digital bilateral breast jina (3D mammographic acquisition) in the CC and MLO projections. 2-D mediolateral oblique (MLO) and craniocaudad (CC) views of both breasts were obtained. CAD: Full Field Digital Mammography with Computer Added Detection was performed. COMPARISON: Comparison is made with prior study of February 07, 2021 and August 15, [address] scan of the abdomen and pelvis dated December 03, 2023. FINDINGS: Breast Composition: The breasts are extremely dense, which lowers the sensitivity of mammography. There are no dominant masses or suspicious calcifications. A tissue clip marker is seen within the fat-containing nodule in the upper outer quadrant of the left breast. No other significant abnormalities are identified. There has been no significant change since the prior study. BI/DIAG MAMM W/CAD, BILAT IMPRESSION: Stable bilateral diagnostic mammogram. With the patient''s history of a palpable lump in the right breast, correlation with ultrasound is recommended. ASSESSMENT CATEGORY: BIRADS Category 0: Incomplete. Need additional imaging evaluation. A letter regarding these results will be sent to the patient by the facility within 30 days. Approximately 10% of breast cancers are not detected by mammography. A normal mammogram should not delay biopsy of a clinically suspicious abnormality. Electronically Signed: Jim Arroyo MD at 14:18 EDT ,
--- NOTE | 2023-12-11 13:31 | US_ITS ---
STUDY: ULTRASOUND BREAST - RIGHT REASON FOR EXAM: Female, 78 years old. Palpable lump in the right breast. TECHNIQUE: Axial and longitudinal images of the RIGHT breast were performed with a high resolution ultrasound transducer. # OF IMAGES: [id number] COMPARISON: Comparison is made with prior mammogram done earlier in the day. FINDINGS: RIGHT Breast: The upper outer quadrant of the right breast was examined with ultrasound. There is evidence of dense fibroglandular tissue. No solid or cystic mass lesion is seen. US/Breast Limited Unilateral IMPRESSION: No sonographic abnormality is seen. ASSESSMENT CATEGORY: BIRADS Category 1: Negative. A letter regarding these results will be sent to the patient by the facility within 30 days. Electronically Signed: Jim Arroyo MD at 8:21 EDT ,
== END | disposition home or self-care (01) ==
PROVIDERS: PCP Family Medicine; Referring Provider Surgery; Visit Provider Surgery
DX: R92.8 Other abnormal and inconclusive findings on diagnostic imaging of breast (principal); S32.599A Other specified fracture of unspecified pubis, initial encounter for closed fracture; N63.10 Unspecified lump in the right breast, unspecified quadrant; K66.8 Other specified disorders of peritoneum; X58.XXXA Exposure to other specified factors, initial encounter
CPT/HCPCS: 74177; 76642; 77062; 77066; Q9967; G0279

== ENCOUNTER → 2024-01-01 | Outpatient (CLI) | payer MEDICARE, OTHER, SELFPAY ==
[2024-01-01 10:35] LABS: Hemoglobin A1c 5.9 % (3.8-5.6)
[2024-01-01 10:51] LABS: ALB/GLOB Ratio 0.9 RATIO (0.9-2.4); AST(SGOT) 22 U/L (15-37); Alanine Aminotransfer ALT/SGPT 30 U/L (13-56); Alkaline Phosphatase 221 U/L (45-117); Anion Gap 4 (5-15); BUN 21 mg/dL (7-18); BUN/Creat Ratio 31.3 RATIO (10-20); Calcium,Total 7.8 mg/dL (8.5-10.1); Chloride 96 mmol/L (98-107); Creatinine, Serum 0.67 mg/dL (0.55-1.02); EST Glomerular Filtration Rate 91 mL/min (>60); Est Glom Filt Rate - Afr Amer 109 mL/min (>60); Globulin 3.5 g/dL (2.2-4.2); Glucose 90 mg/dL (74-106); Potassium 4.6 mmol/L (3.5-5.1); Protein, Total 6.5 g/dL (6.4-8.2); Sodium Level 129 mmol/L (136-145); Thyroid Stim Hormone (TSH) 1.53 uIU/mL (0.358-3.74)
== END | disposition home or self-care (01) ==
PROVIDERS: PCP Family Medicine; Visit Provider Internal Medicine Endocrinology, Diabetes & Metabolism
DX: E11.21 Type 2 diabetes mellitus with diabetic nephropathy (principal); E21.1 Secondary hyperparathyroidism, not elsewhere classified
CPT/HCPCS: 36415; 80053; 83036; 84443

== ENCOUNTER → 2024-01-05 | Outpatient (CLI) | payer MEDICARE, OTHER, SELFPAY ==
--- NOTE | 2024-01-05 12:38 | MRI_ITS ---
STUDY: BILATERAL BREAST MR WITHOUT AND WITH CONTRAST REASON FOR EXAM: Female, 78 years old. Right breast mass. TECHNIQUE: Multi-sequence multi-echo imaging of both breasts was performed with a dedicated breast coil. T1-weighted and T2-weighted images were performed before the administration of contrast. T1-weighted images were also performed after the intravenous administration of 15 mL of Clariscan contrast. COMPARISON: Bilateral diagnostic mammogram and right breast ultrasound dated December 11, 2023 FINDINGS: RIGHT BREAST: Heterogeneously dense fibroglandular tissue with mild background enhancement. No abnormal enhancing masses or areas of non-mass enhancement in the right breast. LEFT BREAST: Heterogeneously dense fibroglandular tissue with mild background enhancement. No abnormal enhancing masses or areas of non-mass enhancement in the left breast. No enlarged or abnormal lymph nodes. No abnormality in the visualized regions of the chest or liver. MRI/Breast Bilateral W/O and W IMPRESSION: No abnormality on the breast MR examination with contrast. Any decision of further evaluation of the right breast mass should be made clinically. CATEGORY: BIRADS Category 2: Benign. A letter regarding these results will be sent to the patient by the facility within 30 days. Electronically Signed: Stoney Moore MD at 16:27 EDT ,
== END | disposition home or self-care (01) ==
LOC: MRI 12:34
PROVIDERS: PCP Family Medicine; Referring Provider Surgery; Visit Provider Surgery
DX: R92.8 Other abnormal and inconclusive findings on diagnostic imaging of breast (principal); N63.10 Unspecified lump in the right breast, unspecified quadrant
CPT/HCPCS: 77049; A9585; A4216; C8908

== ENCOUNTER → 2024-01-13 | Outpatient (CLI) | payer MEDICARE, OTHER, SELFPAY ==
[2024-01-13 12:11] LABS: Absolute Lymphocyte Count 1.35 X10^3/uL (0.83-4.51); Absolute Neutrophil Count 4.2 X10^3/uL (2.0-7.7); Basophil# 0.04 X10^3/uL; Basophil% 0.6 % (0-1); Eosinophil# 0.23 X10^3/uL; Eosinophils% 3.6 % (0-5); Hematocrit 34.8 % (37-47); Hemoglobin 10.8 g/dL (12.0-15.0); Lymphocyte # 1.35 X10^3/ul (0.83-4.51); Lymphocyte % 21.4 % (19-41); Mean Corpuscular Hgb 29.6 pg (27.0-32.0); Mean Corpuscular Volume 95.3 fL (81-99); Mean Platelet Vol. 8.8 fl (6.2-12.0); Monocyte% 7.9 % (0-10); NRBC Flagged by Analyzer 0 % (0-5); Neutrophil # 4.18 X10^3/uL (2.7-7.7); Neutrophil % 66.2 % (47-70); Platelet Count 282 K/mm3 (150-450); RBC Distribution Width CV 14.1 % (11.6-14.6); RBC Distribution Width SD 49.4 fl (35.1-43.9); Red Blood Count 3.65 M/mm3 (4.2-5.4); White Blood Count 6.3 K/mm3 (4.4-11.0)
[2024-01-13 13:02] LABS: ALB/GLOB Ratio 0.8 RATIO (0.9-2.4); AST(SGOT) 16 U/L (15-37); Alanine Aminotransfer ALT/SGPT 17 U/L (13-56); Albumin, Serum 2.8 g/dL (3.2-5.0); Alkaline Phosphatase 242 U/L (45-117); Anion Gap 4 (5-15); BUN 18 mg/dL (7-18); BUN/Creat Ratio 23.7 RATIO (10-20); Calcium,Total 7.7 mg/dL (8.5-10.1); Chloride 99 mmol/L (98-107); Cholesterol 117 mg/dL (200); Creatinine, Serum 0.76 mg/dL (0.55-1.02); EST Glomerular Filtration Rate 79 mL/min (>60); Est Glom Filt Rate - Afr Amer 95 mL/min (>60); Globulin 3.5 g/dL (2.2-4.2); Glucose 81 mg/dL (74-106); High Density Lipoprotein 53 mg/dL; Potassium 4.4 mmol/L (3.5-5.1); Protein, Total 6.3 g/dL (6.4-8.2); Sodium Level 132 mmol/L (136-145); Triglycerides 76 mg/dL; Very Low Density Lipoprotein 15 mg/dL (5-40)
[2024-01-13 13:25] LABS: Hemoglobin A1c 5.8 % (3.8-5.6)
[2024-01-13 13:41] LABS: Vitamin B12 > 2000 pg/mL (211-911); Vitamin D,25 Hydroxy 84.8 ng/mL
== END | disposition home or self-care (01) ==
LOC: MTLAB 10:06
PROVIDERS: PCP Family Medicine
DX: E11.40 Type 2 diabetes mellitus with diabetic neuropathy, unspecified (principal); E78.2 Mixed hyperlipidemia; E55.9 Vitamin D deficiency, unspecified; E53.9 Vitamin B deficiency, unspecified; D63.1 Anemia in chronic kidney disease
CPT/HCPCS: 36415; 80053; 80061; 82306; 82607; 82746; 83036; 85025

== ENCOUNTER → 2024-01-20 | Outpatient (CLI) | payer MEDICARE, OTHER, SELFPAY ==
[2024-01-20 18:16] LABS: PTHIN 132.9 pg/mL (18.4-80.1)
[2024-01-20 18:25] LABS: ALB/GLOB Ratio 0.9 RATIO (0.9-2.4); AST(SGOT) 22 U/L (15-37); Alanine Aminotransfer ALT/SGPT 24 U/L (13-56); Albumin, Serum 3.1 g/dL (3.2-5.0); Alkaline Phosphatase 244 U/L (45-117); Anion Gap 5 (5-15); BUN 17 mg/dL (7-18); BUN/Creat Ratio 21.7 RATIO (10-20); Calcium,Total 8.7 mg/dL (8.5-10.1); Chloride 90 mmol/L (98-107); Creatinine, Serum 0.78 mg/dL (0.55-1.02); EST Glomerular Filtration Rate 76 mL/min (>60); Est Glom Filt Rate - Afr Amer 91 mL/min (>60); Globulin 3.6 g/dL (2.2-4.2); Glucose 95 mg/dL (74-106); Potassium 4.9 mmol/L (3.5-5.1); Protein, Total 6.7 g/dL (6.4-8.2); Sodium Level 124 mmol/L (136-145)
[2024-01-22 15:09] LABS: Alkaline Phosphatase, Serum 251 IU/L (44-121); Bone Fraction 48 % (14-68); Intestinal Fraction 0 % (0-18); Liver Fraction 52 % (18-85)
== END | disposition home or self-care (01) ==
LOC: MTLAB 15:58
PROVIDERS: PCP Family Medicine; Referring Provider Nurse Practitioner Adult Health; Visit Provider Nurse Practitioner Adult Health
DX: E11.21 Type 2 diabetes mellitus with diabetic nephropathy (principal); E21.1 Secondary hyperparathyroidism, not elsewhere classified; R74.8 Abnormal levels of other serum enzymes
CPT/HCPCS: 36415; 80053; 83970; 84075; 84080

== ENCOUNTER 2024-01-28 09:50 | Outpatient (RCR) | payer MEDICARE, OTHER, SELFPAY ==
[2024-01-28 10:27] VITALS: BP 117/57; PULSE 88; RESP 18; TEMP 36.1; BMI 35.2
--- NOTE | 2024-01-28 12:15 | HP.PCM_ITS ---
History of Present Illness Date of Service: 01/28/24 Chief Complaint: Genitourinary area and up and to the coccyx area also History of Wound: 78-year-old white female with history of diabetes who is currently on Farxiga for her kidneys and also for her diabetes and she is on Ozempic for her diabetes. She is well-controlled at 5.7 A1c at her last checkup she has been fighting yeast infections for over a year with [facility] and they decided to send her here her buttocks on her coccyx areas developed blisters that are now just scars and closed there is no open area they have used in the past Nystan and doxycycline antibiotic. Currently she is just using nystatin cream and her vaginal area on the labia majora. Which is not really helping at all she also sees Dr. Dupree for her incontinent urine which is constant and she wears a depends and she is on medication to help with that but it is not working. She has had 2 bladder suspensions and she still leaking urine she also in October developed a pathological of pelvic fracture from her osteoporosis. We usually transports in a wheelchair but she does walk with a walker at home. Any kind of stress or movements or coughing or sneezing causes her a lot of incontinence. [facility] Medical History (Updated 01/28/24 @ 12:28 by Yecenia Mederos CONCRETE PUDDLER, CONCRETE PUDDLER-C) Urge incontinence of urine Candidiasis of female genitalia Peritoneal free air Breast mass, right Nonrheumatic aortic (valve) stenosis Lower extremity edema Essential hypertension Wears glasses Post-menopausal Abrasion Walker as ambulation aid Easy bruising Back pain History of IBS Non-smoker History of pain when walking History of edema Mild cognitive impairment Low sodium levels Steroid-induced psychosis Cystocele Heel spur Vitamin deficiency Skin cancer GERD (gastroesophageal reflux disease) Osteoporosis Osteoarthritis Kidney stones Kidney disease IBS (irritable bowel syndrome) Gout Gallstones Breast lump Bone fracture UTI (urinary tract infection) Abnormal ultrasound of breast Skin lesion Constipation Diarrhea Arthritis History of back problems Diabetes History of change in bowel patterns Hiatal hernia Home Medications ?Medication ?Instructions ?Recorded ?Last Taken ?Type lactobacillus combination no.8 3 3,000 mmu cells PO DAILY 11/24/18 Unknown History billion cell capsule (Adult Probiotic) pantoprazole 40 mg tablet,delayed 40 mg PO DAILY 02/03/20 Unknown History release finerenone 10 mg tablet (Kerendia) 10 mg PO DAILY 04/30/22 Unknown History dapagliflozin propanediol 10 mg 10 mg PO DAILY 05/09/22 Unknown History tablet (Farxiga) denosumab 60 mg/mL subcutaneous 60 mg subcut [id number] 10/31/22 Unknown History syringe (Prolia) mirabegron 25 mg tablet,extended 25 mg PO DAILY 10/31/22 Unknown History release 24 hr (Myrbetriq) gabapentin 300 mg capsule 300 mg PO TID 06/06/23 Unknown History (Neurontin) melatonin 3 mg tablet 6 mg PO QHS 06/06/23 Unknown History calcium citrate 200 mg (950 mg) 400 mg PO DAILY 11/18/23 Unknown History tablet carvedilol 25 mg tablet 25 mg PO ONCE 11/18/23 Unknown History cholestyramine (with sugar) 4 gram ea PO 11/18/23 Unknown History powder for susp in a packet furosemide 20 mg tablet 40 mg PO DAILY 11/18/23 Unknown History haloperidol 0.5 mg tablet 0.5 mg PO DAILY 11/18/23 Unknown History hydralazine 25 mg tablet 25 mg PO ONCE 11/18/23 Unknown History methylcellulose (laxative) 500 mg 1,000 mg PO DAILY 11/18/23 Unknown History tablet (Citrucel) olanzapine 2.5 mg tablet 2.5 mg PO DAILY 11/18/23 Unknown History telmisartan 20 mg tablet 40 mg PO BID 11/18/23 Unknown History tramadol 25 mg tablet 25 mg PO Q6H PRN pain 11/18/23 Unknown History potassium chloride 20 mEq 20 meq PO DAILY #90 tabs 11/24/23 Unknown Rx tablet,extended release nystatin 100,000 unit/gram topical 1 applic topical BID 01/28/24 Unknown History cream Allergy/AdvReac Type Severity Reaction Status Date / Time Corticosteroids AdvReac Severe Other Verified 12/16/23 10:13 (Glucocorticoids) NSAIDS (Non-Steroidal AdvReac Severe Other Verified 12/16/23 10:13 Anti-Inflamma Family History Grandfather Arthritis Colon cancer Liver disease Grandmother Arthritis Hypertension Anemia Mother Arthritis Osteoporosis Father Hypertension Arthritis Liver disease Sister Arthritis Surgical History S/P insertion of spinal cord stimulator History of left heart catheterization History of open reduction and internal fixation (ORIF) procedure History of cardiac catheterization (2009) Hx of spinal fusion Hx of surgical procedure Hx of surgical procedure Hx laparoscopic cholecystectomy Hx of hysterectomy Hx of colonoscopy History of bursectomy H/O laminectomy Hx of cataract surgery H/O gastric bypass S/P vaginopexy History of repair of rectocele history excision melanoma forehead History of bilateral knee replacement Social History Smoking Status: Never smoker alcohol intake: never substance use type: does not use caffeine: No what type of physical activity do you participate in: other details: PT for strength & balance corinne/zoroastrianism: Sabianism seatbelt use: always ROS Constitutional Constitutional: Reports systems reviewed and no addt'l complaints, except as documented Eyes Eyes: Reports systems reviewed and no addt'l complaints, except as documented ENT HEENT: Reports systems reviewed and no addt'l complaints, except as documented Cardiovascular Cardiovascular: Reports systems reviewed and no addt'l complaints, except as documented Respiratory/Chest Respiratory/Chest: Reports systems reviewed and no addt'l complaints, except as documented Gastrointestinal Gastrointestinal: Reports systems reviewed and no addt'l complaints, except as documented Genitourinary Genitourinary: Reports urinary incontinence and urinary urgency Musculoskeletal Musculoskeletal: Reports systems reviewed and no addt'l complaints, except as documented Integumentary Integumentary: Reports systems reviewed and no addt'l complaints, except as documented and other Details: Erythematous from yeast infections or fungal in her vaginal area into her labia majora from fungal or yeast from urine incontinence Neurologic Neurologic: Reports systems reviewed and no addt'l complaints, except as documented Psychiatric Psychiatric: Reports systems reviewed and no addt'l complaints, except as documented Endocrine Endocrinology: Reports systems reviewed and no addt'l complaints, except as documented Hematologic/Lymphatic Hematologic/Lymphatic: Reports systems reviewed and no addt'l complaints, except as documented Allergic/Immunologic Allergic/Immunologic: Reports systems reviewed and no addt'l complaints, except as documented Vital Signs Vital Signs Vital Signs: 01/28/24 10:27 Temperature 96.9 F L Temperature Source Temporal Pulse Rate 88 Respiratory Rate 18 Blood Pressure 117/57 L Blood Pressure Mean 77 Blood Pressure Source Monitor Blood Pressure Position Semi-Fowlers Blood Pressure Location Left Arm Weight Weight: 157 lb Body Mass Index (BMI) 35.2 Physical Exam Const oriented x3 General Appearance: cooperative Exam Limitations: no limitations HEENT normocephalic Face and Sinus: normal facial exam External Ear: external ears normal Eyes PERRL General Eye: normal appearance of both eyes Neck General: normal visual inspection Resp normal respiratory effort Auscultation: clear to auscultation bilaterally Cardio regular rate and regular rhythm Palpation: normal PMI Rate: regular rate Rhythm: regular rhythm GI Palpation: soft and no hepatosplenomegaly external exam normal Narrative: Erythematous vaginal area into her rectal area and up on her coccyx Skin General Skin Exam: no breakdown and erythema Lesions: no lesions Neuro oriented x3 Psych Appearance: grossly normal Speech: normal speech Thought Content: normal thought content Judgement: judgement good Debridement Note Debridement Note No debridement was completed: No debridement was completed today Post-Debridement Measurements and Additional Note: Post-Debridement Measurements/Treatment - Nurse 1 - General Ulcer Assessment Start: 01/28/24 10:10 Freq: Status: Active Protocol: MIGUEL Activity Type Activity Date Activity User E-sign Co-sign Detail Recorded Client Recorded Date Recorded By Document 01/28/24 10:27 [id number] 01/28/24 10:31 01/28/24 10:27 - Today's Visit Information Type of service Initial Visit Arrival Mode Ambulatory Transfer Assistance None Patient Identification Verified (Name & Yes ) Patient Requires Transmission-Based No Precautions Height and Weight Height 4 ft 8 in Weight 157 lb Weight in Pounds 157.0 lbs Body Mass Index (BMI) 35.2 BMI Classification Obese BSA - Leonides 1.60 Vital Signs Temperature (97.8 F-99.1 F) 96.9 F L Temperature Source Temporal Pulse Rate (60-100) 88 Pulse Location Monitor Respiratory Rate (12-18) 18 Respiratory rate source Observation Blood Pressure (90/60-120/80) 117/57 L Blood Pressure Mean 77 Source Monitor Position Semi-Fowlers Blood Pressure Location Left Arm History Since Last Visit- (Skip if this is Patient's initial visit) Have you changed medications since your No last visit? Any new allergies or adverse reactions No Had a fall/change in ADL's that may No increase risk of falls Signs or symptoms of abuse and/or No neglect since last visit Have you been in the hospital since your No last visit? Has dressing in place as prescribed Yes Has compression in place as prescribed No Has offloadiing in place as prescribed No Experienced any changes in pain level or No management Pain Scale: 0-10 Numeric Is Patient Pain Free? Yes Communication Assessment Preferred language Uzbek Sole Stapler Welt Required No Able to Read Yes Able to Write Yes Communication Tools None Right Hearing Abillity Hard of Hearing Left Hearing Abillity Hard of Hearing Visual Assistive Devices Glasses Teaching Assessment Preferences Verbal,Written, Demonstration Barriers to Learning None Readiness To Learn Good Willingness to Engage in Self Management Med Activies Readiness to Engage in Self Management Med Activities Anxiety Level Calm Cooperation Cooperative Perception Coherent Interest in Health Problem Asks Questions Education Importance Acknowledges Need Does Patient Smoke tobacco or other No substances Smoking Status Never smoker Is Patient Diabetic Yes Functional Assessment Recent Decline in Ability to Perform Denies Any Declines Assistive Device With Patient No Culture/Jainism/Building Services Coordinator Cultural/Jainism Needs that may affect No Treatment Plan Would you allow our hospital agricultural sales representative to No meet you for the purpose of spiritual/ emotional support? Building Services Coordinator to contact place of confucianist No Teaching: Wound Center *Welcome to the Wound Center -Person Taught Patient,Family -Teaching Method Discussion -Response to teaching Verbalize Understanding WC - Nurse 1 - General Ulcer Measurement Start: 01/28/24 10:10 Freq: Status: Active Protocol: Activity Type Activity Date Activity User E-sign Co-sign Detail Recorded Client Recorded Date Recorded By Document 01/28/24 10:27 ARINA [id number] 01/28/24 10:31 ARINA 01/28/24 10:27 Wound Center Nurse 1 1. buttocks -Combined with other wound No -Current Size (cm) - Length 0.1 -Current Size (cm) - Width 0.1 -Current Size (cm) - Depth 0.1 -Total Square Cm 0.01 -Photo Taken Yes -Tunneling No -Undermining/Tunneling No -Circular Undermining No -Exudate Amt Small -Exudate Type Serosanguineous -Wound Margin Distinct, Outline Attached -Granulation Amt Small (1-33%) -Granulation Quality [place] -Slough/Fibrin Yes -Necrosis Amt Medium (34-66%) -Necrotic Tissue Type Adherent Slough -Structure Exposed N/A -Texture (Janki-wound Skin Appearance) Assessed, Scarring -Moisture (Janki-wound Skin Appearance) Assessed -Color (Janki-wound Skin Appearance) Assessed -Temperature (Janki-wound Skin No Abnormality Appearance) (Pt Warm) -Tenderness on Palpation (Janki-wound No Skin Appearance) -Ulcer Cleansing Wound Cleanser -Foul Odor after Cleansing No -Anesthetic Used 4% Lidocaine Solution - Nurse 2 - General Ulcer CM Notes Start: 01/28/24 10:10 Freq: Status: Active Protocol: Activity Type Activity Date Activity User E-sign Co-sign Detail Recorded Client Recorded Date Recorded By Document 01/28/24 10:45 [facility] [id number] 01/28/24 10:57 [facility] 01/28/24 10:45 Wound Center Nurse 2 -Bleeding Controlled with NA Pain Scale: 0-10 Numeric Is Patient Pain Free? Yes - Nurse 3 - General Ulcer D/C NN Start: 01/28/24 10:10 Freq: Status: Active Protocol: Activity Type Activity Date Activity User E-sign Co-sign Detail Recorded Client Recorded Date Recorded By Document 01/28/24 11:23 [id number] 01/28/24 11:24 01/28/24 11:23 Wound Care Center Nurse 3 Other/Comment incontinence care for urine and stool Treatment Response Procedure Tolerated Well Pain Scale: 0-10 Numeric Is Patient Pain Free? Yes - Visit Discharge Discharge Condition Stable Ambulatory Status Wheelchair Transportation Private Auto Medication Reconcilliation completed & No provided to patient/care provider Clinical Summary of Care Provided Yes Assessment/Plan Assessment/Plan (1) Urge incontinence of urine: CODE(S): N39.41 - Urge incontinence (2) Candidiasis of female genitalia: CODE(S): B37.31 - Acute candidiasis of vulva and vagina PLAN: Wash area with antibacterial soap and water pat dry and after every changing of her depends apply the Z sorb's sprinkle to area liberally Stop Farxiga for 1 month Stop the nystatin cream If ZeSorb fails then use the nystatin powder ordered instead In 1 month follow-up with a lab for A1c and a CMP. Follow-up after the blood draw and we will reevaluate the vaginal area and her medication by looking at labs. Continue taking the Ozempic medication Start Diflucan 100 mg 1 p.o. daily for 30 days #30 no refills
--- NOTE | 2024-02-04 09:49 | WC ---
PHOTO 01/28/24 [place]
== END 2024-01-31 23:59 | disposition home or self-care (01) ==
LOC: WC 09:50
PROVIDERS: PCP Family Medicine; Referring Provider Registered Nurse; Visit Provider Nurse Practitioner
DX: B37.31 Acute candidiasis of vulva and vagina (principal); E11.9 Type 2 diabetes mellitus without complications; Z79.85 Long-term (current) use of injectable non-insulin antidiabetic drugs; I10 Essential (primary) hypertension; N39.41 Urge incontinence; M81.0 Age-related osteoporosis without current pathological fracture; Z79.899 Other long term (current) drug therapy
CPT/HCPCS: 99213; G0463

== ENCOUNTER → 2024-02-03 | Outpatient (CLI) | payer MEDICARE, OTHER, SELFPAY ==
[2024-02-03 12:45] LABS: Anion Gap 7 (5-15); BUN 18 mg/dL (7-18); BUN/Creat Ratio 20.2 RATIO (10-20); Calcium,Total 8.6 mg/dL (8.5-10.1); Chloride 102 mmol/L (98-107); Creatinine, Serum 0.89 mg/dL (0.55-1.02); EST Glomerular Filtration Rate 65 mL/min (>60); Est Glom Filt Rate - Afr Amer 79 mL/min (>60); Glucose 103 mg/dL (74-106); Magnesium 2.5 mg/dL (1.6-2.6); Potassium 4.3 mmol/L (3.5-5.1); Sodium Level 137 mmol/L (136-145)
[2024-02-03 13:19] LABS: Osmolality, Serum 287 mOsm/KG (280-301)
== END | disposition home or self-care (01) ==
LOC: MTLAB 09:41
PROVIDERS: PCP Family Medicine; Referring Provider Family Medicine; Visit Provider Family Medicine
DX: E87.1 Hypo-osmolality and hyponatremia (principal)
CPT/HCPCS: 36415; 80048; 83735; 83930

== ENCOUNTER → 2024-02-09 | Outpatient (CLI) | payer MEDICARE, OTHER, SELFPAY ==
[2024-02-09 10:28] LABS: Anion Gap 6 (5-15); BUN 22 mg/dL (7-18); BUN/Creat Ratio 26.9 RATIO (10-20); Chloride 106 mmol/L (98-107); Creatinine, Serum 0.82 mg/dL (0.55-1.02); EST Glomerular Filtration Rate 72 mL/min (>60); Est Glom Filt Rate - Afr Amer 87 mL/min (>60); Glucose 142 mg/dL (74-106); Potassium 4.3 mmol/L (3.5-5.1); Sodium Level 139 mmol/L (136-145)
== END | disposition home or self-care (01) ==
PROVIDERS: PCP Family Medicine; Referring Provider Family Medicine; Visit Provider Family Medicine
DX: E87.1 Hypo-osmolality and hyponatremia (principal)
CPT/HCPCS: 36415; 80048

== ENCOUNTER → 2024-02-16 | Outpatient (CLI) | payer MEDICARE, OTHER, SELFPAY ==
[2024-02-16 13:09] LABS: Osmolality, Serum 296 mOsm/KG (280-301)
[2024-02-16 13:13] LABS: Anion Gap 10 (5-15); BUN 23 mg/dL (7-18); BUN/Creat Ratio 22.1 RATIO (10-20); Calcium,Total 8.5 mg/dL (8.5-10.1); Chloride 106 mmol/L (98-107); Creatinine, Serum 1.04 mg/dL (0.55-1.02); EST Glomerular Filtration Rate 55 mL/min (>60); Est Glom Filt Rate - Afr Amer 66 mL/min (>60); Glucose 208 mg/dL (74-106); Potassium 4.5 mmol/L (3.5-5.1); Sodium Level 137 mmol/L (136-145)
== END | disposition home or self-care (01) ==
LOC: MTLAB 09:43
PROVIDERS: PCP Family Medicine; Referring Provider Family Medicine; Visit Provider Family Medicine
DX: E87.1 Hypo-osmolality and hyponatremia (principal)
CPT/HCPCS: 36415; 80048; 83930

== ENCOUNTER 2024-03-03 09:59 | Outpatient (RCR) | payer MEDICARE, OTHER, SELFPAY ==
[2024-02-01 00:56] VITALS: BP 117/57; PULSE 88; RESP 18; TEMP 36.1; BMI 35.2
[2024-03-03 10:24] VITALS: BP 111/58; PULSE 94; RESP 20; TEMP 36.2; BMI 35.2
--- NOTE | 2024-03-03 12:40 | PN.PCM_ITS ---
History of Present Illness Date of Service: 03/03/24 Chief Complaint: Genitourinary area and up and to the coccyx area also erythema History of Wound: 78-year-old white female with history of diabetes who is currently on Farxiga for her kidneys and also for her diabetes and she is on Ozempic for her diabetes. She is well-controlled at 5.7 A1c at her last checkup she has been fighting yeast infections for over a year with [facility] and they decided to send her here her buttocks on her coccyx areas developed blisters that are now just scars and closed there is no open area they have used in the past Nystan and doxycycline antibiotic. Currently she is just using nystatin cream and her vaginal area on the labia majora. Which is not really helping at all she also sees Dr. Dupree for her incontinent urine which is constant and she wears a depends and she is on medication to help with that but it is not working. She has had 2 bladder suspensions and she still leaking urine she also in October developed a pathological of pelvic fracture from her osteoporosis. We usually transports in a wheelchair but she does walk with a walker at home. Any kind of stress or movements or coughing or sneezing causes her a lot of incontinence. Progress of Wound: So the erythema is gone and now its most that she has 2 actual open areas on both buttocks cheeks with dried skin that is raised and probably catches on everything is very tender to touch on a very erythematous base but not candidiasis base. Subjective Subjective Patient feels like she is getting worse but I told her she is not she is the area she has open wounds now which she did not have before so yes she is worse but it is not from the candidiasis Objective Data Objective Data Right and left buttocks cheeks both open with dried yellow slough that was have to be debrided with nippers and debrided with curettes #7. Then we will use Aquacel extra with some moisture and then Adaptic and foam dressings on both sides to give her comfort Vital Signs: Vital Signs Temp Pulse Resp BP 97.2 F L 94 20 H 111/58 L 03/03/24 10:24 03/03/24 10:24 03/03/24 10:24 03/03/24 10:24 Weight: 157 lb Body Mass Index (BMI) 35.2 Physical Exam Const oriented x3 General Appearance: cooperative Exam Limitations: no limitations HEENT normocephalic Face and Sinus: normal facial exam External Ear: external ears normal Eyes PERRL General Eye: normal appearance of both eyes Neck General: normal visual inspection Resp normal respiratory effort Auscultation: clear to auscultation bilaterally Cardio regular rate and regular rhythm Palpation: normal PMI Rate: regular rate Rhythm: regular rhythm GI Palpation: soft and no hepatosplenomegaly external exam normal Narrative: Erythematous vaginal area into her rectal area and up on her coccyx Skin General Skin Exam: erythema Wounds: wounds noted Wound Narrative: She now has 2 open areas 1 on each buttocks of dried open slough. Neuro oriented x3 Psych Appearance: grossly normal Speech: normal speech Thought Content: normal thought content Judgement: judgement good Debridement Note Debridement Note Wound debrided: Decubitus ulcer Laterality: Right Wound Grade/Stage: 2 Type of Debridement: Excisional debridement Anesthesia Used: 5% Lidocaine Gel Depth: Down to and including healthy tissue and in the subcutaneous layer Percentage of wound debrided: 100 Instrument Used: 7mm curette, Forceps and - (Nippers) Tissue Removed: Slough and fibrin Severity: Fat Layer Exposed Amount of bleeding with debridement: Mild Bleeding Controlled with: Compression and gauze Patient tolerated procedure: Patient tolerated procedure well Post-Debridement Measurements and Additional Note: Post-Debridement Measurements/Treatment - Nurse 1 - General Ulcer Assessment Start: 03/03/24 10:22 Freq: Status: Active Protocol: TRINH.[id number] Activity Type Activity Date Activity User E-sign Co-sign Detail Recorded Client Recorded Date Recorded By Document 03/03/24 10:24 DL [id number] 03/03/24 10:36 DL 03/03/24 10:24 - Today's Visit Information Type of service Follow-up Visit (Physician/[employer] ) Arrival Mode Ambulatory, Walker Transfer Assistance None Patient Identification Verified (Name & Yes ) Patient Requires Transmission-Based No Precautions Height and Weight Body Mass Index (BMI) 35.2 BMI Classification Obese Vital Signs Temperature (97.8 F-99.1 F) 97.2 F L Temperature Source Temporal Pulse Rate (60-100) 94 Pulse Location Monitor Respiratory Rate (12-18) 20 H Respiratory rate source Observation Blood Pressure (90/60-120/80) 111/58 L Blood Pressure Mean (mm Hg) 75 Source Monitor History Since Last Visit- (Skip if this is Patient's initial visit) Have you changed medications since your No last visit? Any new allergies or adverse reactions No Had a fall/change in ADL's that may No increase risk of falls Signs or symptoms of abuse and/or No neglect since last visit Have you been in the hospital since your No last visit? Has dressing in place as prescribed Yes Has compression in place as prescribed N/A Has offloadiing in place as prescribed Yes Experienced any changes in pain level or No management Left Footwear Regular Shoe Right Footwear Regular Shoe Pain Scale: 0-10 Numeric Is Patient Pain Free? Yes WC - Nurse 1 - General Ulcer Measurement Start: 03/03/24 10:22 Freq: Status: Active Protocol: Activity Type Activity Date Activity User E-sign Co-sign Detail Recorded Client Recorded Date Recorded By Document 03/03/24 10:24 DL [id number] 03/03/24 10:36 DL 03/03/24 10:24 Wound Center Nurse 1 1. R buttocks -Current Size (cm) - Length 2.5 -Current Size (cm) - Width 3.1 -Current Size (cm) - Depth 0.1 -Total Square Cm 7.75 -Exudate Amt Medium -Wound Margin Distinct, Outline Attached -Granulation Amt Medium (34-66%) -Granulation Quality Winding [place],Red -Necrosis Amt Medium (34-66%) -Necrotic Tissue Type Adherent Slough -Structure Exposed N/A -Texture (Janki-wound Skin Appearance) Scarring -Moisture (Janki-wound Skin Appearance) No Abnormality, Dry/Scaly -Color (Janki-wound Skin Appearance) No Abnormality -Temperature (Janki-wound Skin No Abnormality Appearance) (Pt Warm) -Ulcer Cleansing Rinsed/ Irrigated with Saline -Foul Odor after Cleansing No -Anesthetic Used 5% Lidocaine Gel WC - Nurse 2 - General Ulcer CM Notes Start: 03/03/24 10:22 Freq: Status: Active Protocol: Activity Type Activity Date Activity User E-sign Co-sign Detail Recorded Client Recorded Date Recorded By Document 03/03/24 10:50 BMF [id number] 03/03/24 11:02 BMF Edit Result 03/03/24 10:50 BMF (1) [id number] 03/03/24 12:10 BMF (1) 1. R buttocks - Debridement - Subq, 1st 20sq cm Yes => No 03/03/24 10:50 Wound Center Nurse 2 #2- L BUTTOCKS -Time 10:51 -Correct Patient Yes -Correct Side, Site, Position Yes -Correct Procedure Yes -Procedure Performed Yes -Type of Procedure Debridement -Clinical Debridement Subcutaneous -Tissue Removed Subcutaneous -Post Debridement (cm) - Length 2.3 -Post Debridement (cm) - Width 2 -Post Debridement (cm) - Depth 0.1 -Total Square (Post) (cm) 4.6 -Area of Debridement (cm) - Length 2.3 -Area of Debridement (cm) - Width 2 -Total Square (Area) (cm) 4.6 -Tunneling No -Undermining/Tunneling No -Circular Undermining No -Wound/Ulcer Outcome Not Healed -Ulcer Cleansing Rinsed/ Irrigated with Saline -Foul Odor after Cleansing No -Bioengineered Tissue No -Bleeding Controlled with Pressure -Treatment Response Procedure Tolerated Well -Debridement - Subq, 1st 20sq cm Yes 1. R buttocks -Time 10:51 -Correct Patient Yes -Correct Side, Site, Position Yes -Correct Procedure Yes -Procedure Performed Yes -Type of Procedure Debridement -Clinical Debridement Subcutaneous -Tissue Removed Subcutaneous -Post Debridement (cm) - Length 4 -Post Debridement (cm) - Width 2.5 -Post Debridement (cm) - Depth 0.1 -Total Square (Post) (cm) 10.0 -Area of Debridement (cm) - Length 4 -Area of Debridement (cm) - Width 2.5 -Total Square (Area) (cm) 10.0 -Tunneling No -Undermining/Tunneling No -Circular Undermining No -Wound/Ulcer Outcome Not Healed -Ulcer Cleansing Rinsed/ Irrigated with Saline -Foul Odor after Cleansing No -Bioengineered Tissue No -Bleeding Controlled with Pressure -Treatment Response Procedure Tolerated Well -Debridement - Subq, 1st 20sq cm No Pain Scale: 0-10 Numeric Is Patient Pain Free? Yes WC - Nurse 3 - General Ulcer D/C NN Start: 03/03/24 10:22 Freq: Status: Active Protocol: Activity Type Activity Date Activity User E-sign Co-sign Detail Recorded Client Recorded Date Recorded By Document 03/03/24 11:33 CP [id number] 03/03/24 11:35 CP 03/03/24 11:33 Wound Care Center Nurse 3 #2- L BUTTOCKS -Ulcer Cleansing Rinsed/ Irrigated with Saline -Primary Dressing Applied Aquacel Extra, Mepilex Border -Aquacel Extra 1 -Mepilex Border 1 1. R buttocks -Ulcer Cleansing Rinsed/ Irrigated with Saline -Primary Dressing Applied Aquacel Extra, Mepilex Border -Aquacel Extra 0 -Mepilex Border 1 Treatment Response Procedure Tolerated Well Pain Scale: 0-10 Numeric Is Patient Pain Free? Yes Teaching: Wound Center Dressing Your Wound -Person Taught Patient,Family -Teaching Method Discussion, Demonstration -Response to teaching Verbalize Understanding WC - Visit Discharge Discharge Condition Stable Ambulatory Status Ambulatory, Walker Transportation Private Auto Clinical Summary of Care Provided Yes Additional Wound Wound debrided: Decubitus ulcer Laterality: Left Wound Grade/Stage: Stage II Type of Debridement: Excisional debridement Anesthesia Used: 5% Lidocaine Gel Depth: Down to and including healthy tissue and in the subcutaneous layer Percentage of wound debrided: 100 Instrument Used: 7mm curette and - (Nippers) Tissue Removed: Slough Severity: Fat Layer Exposed Amount of bleeding with debridement: Mild Bleeding Controlled with: Compression and gauze Patient tolerated procedure: Patient tolerated procedure well Assessment/Plan Assessment/Plan (1) Decubitus ulcer of buttock, stage 2: CODE(S): L89.302 - Pressure ulcer of unspecified buttock, stage 2 QUALIFIERS: Laterality: unspecified laterality Qualified Code(s): L89.302 - Pressure ulcer of unspecified buttock, stage 2 PLAN: Wash buttocks with antibacterial soap and water and apply Aquacel extra to wound base moistened cover with Adaptic and absorbent dressings. Every day to bilateral buttocks Follow-up in 1 week (2) Candidiasis of female genitalia: CODE(S): B37.31 - Acute candidiasis of vulva and vagina PLAN: All has resolved may use preventative nystatin powder in the groin area or in her labia area but not where the wounds are.
--- NOTE | 2024-03-04 08:10 | WC ---
PHOTO 03/03/24 R/L BUTTOCK
== END 2024-04-01 23:59 | disposition home or self-care (01) ==
LOC: WC 09:59
PROVIDERS: PCP Family Medicine; Referring Provider Registered Nurse; Visit Provider Nurse Practitioner
DX: L89.322 Pressure ulcer of left buttock, stage 2 (principal); L89.312 Pressure ulcer of right buttock, stage 2; E11.9 Type 2 diabetes mellitus without complications; B37.31 Acute candidiasis of vulva and vagina; Z79.84 Long term (current) use of oral hypoglycemic drugs; Z79.899 Other long term (current) drug therapy; Z87.310 Personal history of (healed) osteoporosis fracture
CPT/HCPCS: 11042

== ENCOUNTER → 2024-03-10 | Outpatient (CLI) | payer MEDICARE, OTHER, SELFPAY ==
--- NOTE | 2024-03-10 13:20 | RAD_ITS ---
PROCEDURE: Fluoroscopic guided right shoulder injection. DATE: March 10, 2024. INDICATION: Female, 78 years old. PHYSICIAN: Jim Arroyo M.D. MEDICATIONS: 2 mg of betamethasone and 4 cc of 1% lidocaine. 2% lidocaine administered subcutaneously for local anesthesia. ACCESS SITE: Right shoulder. NEEDLE: 22-gauge spinal needle. FLUOROSCOPY TIME (if supplied): (0:54) minutes/seconds. 13.97 mGy. One image was submitted. FINDINGS: The risks, benefits, and alternatives to the procedure were explained to the patient. The specific risks of bleeding, infection, and neurovascular injury were detailed and accepted. Witnessed informed consent was obtained. A 22-gauge spinal needle was positioned under radiographic fluoroscopic localization. Approximately 2 cc of Isovue-300 instilled for localization purposes. Medication was then injected. The patient tolerated the procedure well without any immediate complications. The patient was placed supine with head elevated and returned to the floor in stable condition. RAD/Inj/Asp Hubert Jt Should/Hip/Knee IMPRESSION: 1. Successful fluoroscopic guided right shoulder injection. Electronically Signed: Jim Arroyo MD at 14:15 EDT ,
[2024-03-10] MEDS: Lidocaine 2% (5ml sdv) 5 ML VIAL.MPF (13:45)
[2024-03-10] MEDS: Betamethasone/Betamethasone 30 MG/5 ML Vial 12 MG INTRAARTIC (13:47)
[2024-03-10] MEDS: Lidocaine 1% (5 ml sdv) 5 ML Vial 4 ML OPERA.SITE (13:47)
== END | disposition home or self-care (01) ==
LOC: RAD 13:12
PROVIDERS: PCP Family Medicine; Referring Provider Specialist; Visit Provider Specialist
DX: M19.011 Primary osteoarthritis, right shoulder (principal)
CPT/HCPCS: 20610; 77002; Q9965; J0702

== ENCOUNTER → 2024-03-25 | Outpatient (CLI) | payer MEDICARE, OTHER, SELFPAY ==
--- NOTE | 2024-03-25 15:19 | RAD_ITS ---
INDICATION: RIGHT HIP PAIN EXAMINATION/TECHNIQUE: X-RAY - XR Hip Unilateral with Pelvis when performed; 3 Views COMPARISON: FINDINGS: PELVIC BONES: Old left pubic rami fractures. Acute right pubic rami fractures. No widening of the pubic symphysis. HIPS: Degenerative changes at the hips. No displaced fracture seen in this frontal view. SOFT TISSUES: Vascular calcifications. RAD/HIP, UNI W/ Pelvis 2-3 Views IMPRESSION: Old left pubic rami fractures. Acute right pubic rami fractures. Electronically Signed: Daniel Gaines DO at 17:37 EDT Reading Location ID and State: [facility] / [place] Tel [phone], Service support ,
--- NOTE | 2024-03-25 15:19 | RAD_ITS ---
INDICATION: Radiculopathy, lumbosacral region EXAMINATION/TECHNIQUE: X-RAY - XR Spine Lumbar Comp W/ Bending Min 6 Views COMPARISON: FINDINGS: VERTEBRAE: Mild compression of T12-L4. No fracture. Generalized osteopenia with degenerative changes. Dextroscoliosis of the lumbar column. Spinal stimulator electrodes located at the lower thoracic levels. DISCS: Disc spaces are narrowed in the upper lumbar levels. Diffusely calcified aorta. RAD/L/S Spine Comp/w Bending Views IMPRESSION: Moderate degenerative changes and scoliosis. Generalized osteopenia. Electronically Signed: Daniel Gaines DO at 17:29 EDT Reading Location ID and State: [facility] / [place] Tel [phone], Service support ,
== END | disposition home or self-care (01) ==
PROVIDERS: PCP Family Medicine; Referring Provider Anesthesiology Pain Medicine; Visit Provider Anesthesiology Pain Medicine
DX: M25.551 Pain in right hip (principal); M54.17 Radiculopathy, lumbosacral region
CPT/HCPCS: 72110; 72114; 73502

== ENCOUNTER → 2024-04-09 | Outpatient (CLI) | payer MEDICARE, OTHER, SELFPAY ==
[2024-04-09 15:42] LABS: Anion Gap 5 (5-15); BUN 37 mg/dL (7-18); BUN/Creat Ratio 41.4 RATIO (10-20); Calcium,Total 8.1 mg/dL (8.5-10.1); Chloride 110 mmol/L (98-107); Creatinine, Serum 0.89 mg/dL (0.55-1.02); EST Glomerular Filtration Rate 65 mL/min (>60); Est Glom Filt Rate - Afr Amer 79 mL/min (>60); Glucose 86 mg/dL (74-106); Magnesium 2.4 mg/dL (1.6-2.6); Potassium 4.5 mmol/L (3.5-5.1); Sodium Level 137 mmol/L (136-145)
== END | disposition home or self-care (01) ==
LOC: MTLAB 12:44
PROVIDERS: PCP Family Medicine; Referring Provider Family Medicine; Visit Provider Family Medicine
DX: M79.89 Other specified soft tissue disorders (principal)
CPT/HCPCS: 36415; 80048; 83735

== ENCOUNTER 2024-04-24 10:06 | Emergency (ER) | payer MEDICARE, OTHER, SELFPAY ==
[2024-04-24 10:06] VITALS: BP 74/51; PULSE 86; RESP 19; TEMP 36.7; O2SAT 100; BMI 34.0
[2024-04-24 10:09] VITALS: BP 90/49
--- NOTE | 2024-04-24 10:15 | EKG12_ITS ---
Test Reason : DIZZINESS Blood Pressure : */* mmHG Vent. Rate : 81 BPM Atrial Rate : 81 BPM P-R Int : 188 ms QRS Dur : 78 ms QT Int : 352 ms P-R-T Axes : 7 10 53 degrees QTcB Int : 408 ms Sinus rhythm with Premature atrial complexes Otherwise normal ECG Confirmed by Leonardo Wallace ([id number]), senior editor ARLETH DIXON ([id number]) on 04/27/2024 10:43:59 AM Referred By: Confirmed By: Leonardo Wallace
--- NOTE | 2024-04-24 10:23 | EX.ED.DYSGE1 ---
HPI History of Present Illness Chief Complaint: Dizziness Informant: patient and EMS Narrative Narrative: 78-year-old female had a near syncopal episode today, checked her blood pressure and it was low in the 60s. She states this has been going on off and on the entire past week. She called her PCP couple days ago they had her cut her carvedilol in half, and then she called again yesterday and he recommended that she cut it in half again. Yesterday evening she took the 12.5 mg dosing, and then this morning she took the 6.25 mg dosing after the second decrease-dose recommendation. She states blood pressures have been in the 60s intermittently all week. EMS states initially she was 60 systolic but then was in the high 90s systolic prior to arrival. The patient feels well while she is sitting or resting. She has felt tired, she sometimes has some dyspnea with exertion. She is on furosemide making her urinate quite a bit when she takes it, she last took that this morning, that is for edema in both of her legs which is doing very well right now. She also had a wound on her right leg about 3 to 4 weeks ago and states she has been seeing wound care and Dr. Mercado has been taking care of it and is healing very well and she denies any issues with those right now. No recent illness. No fevers or chills. No palpitations or chest discomfort. [facility] Medical History Urge incontinence of urine Candidiasis of female genitalia Peritoneal free air Breast mass, right Nonrheumatic aortic (valve) stenosis Lower extremity edema Essential hypertension Wears glasses Post-menopausal Abrasion Walker as ambulation aid Easy bruising Back pain History of IBS Non-smoker History of pain when walking History of edema Mild cognitive impairment Low sodium levels Steroid-induced psychosis Cystocele Heel spur Vitamin deficiency Skin cancer GERD (gastroesophageal reflux disease) Osteoporosis Osteoarthritis Kidney stones Kidney disease IBS (irritable bowel syndrome) Gout Gallstones Breast lump Bone fracture UTI (urinary tract infection) Abnormal ultrasound of breast Skin lesion Constipation Diarrhea Arthritis History of back problems Diabetes History of change in bowel patterns Hiatal hernia Home Medications ?Medication ?Instructions ?Recorded ?Last Taken ?Type lactobacillus combination no.8 3 3,000 mmu cells PO DAILY 11/24/18 Unknown History billion cell capsule (Adult Probiotic) pantoprazole 40 mg tablet,delayed 40 mg PO DAILY 02/03/20 Unknown History release finerenone 10 mg tablet (Kerendia) 10 mg PO DAILY 04/30/22 Unknown History dapagliflozin propanediol 10 mg 10 mg PO DAILY 05/09/22 Unknown History tablet (Farxiga) denosumab 60 mg/mL subcutaneous 60 mg subcut [id number] 10/31/22 Unknown History syringe (Prolia) mirabegron 25 mg tablet,extended 25 mg PO DAILY 10/31/22 Unknown History release 24 hr (Myrbetriq) gabapentin 300 mg capsule 300 mg PO TID 06/06/23 Unknown History (Neurontin) melatonin 3 mg tablet 6 mg PO QHS 06/06/23 Unknown History calcium citrate 400 mg PO DAILY 11/18/23 Unknown History cholestyramine (with sugar) 4 gram ea PO 11/18/23 Unknown History powder for susp in a packet furosemide 20 mg tablet 40 mg PO DAILY 11/18/23 Unknown History haloperidol 0.5 mg tablet 0.5 mg PO DAILY 11/18/23 Unknown History hydralazine 25 mg tablet 25 mg PO ONCE 11/18/23 Unknown History methylcellulose (laxative) 500 mg 1,000 mg PO DAILY 11/18/23 Unknown History tablet (Citrucel) olanzapine 2.5 mg tablet 2.5 mg PO DAILY 11/18/23 Unknown History telmisartan 20 mg tablet 40 mg PO BID 11/18/23 Unknown History tramadol 25 mg tablet 25 mg PO Q6H PRN pain 11/18/23 Unknown History potassium chloride 20 mEq 20 meq PO DAILY #90 tabs 11/24/23 Unknown Rx tablet,extended release nystatin 100,000 unit/gram topical 1 applic topical BID 01/28/24 Unknown History cream carvedilol 25 mg tablet 6.25 mg (1/4 x 25 mg) PO BID #60 04/24/24 Unknown Rx tabs Allergy/AdvReac Type Severity Reaction Status Date / Time Corticosteroids AdvReac Severe Other Verified 04/24/24 10:13 (Glucocorticoids) NSAIDS (Non-Steroidal AdvReac Severe Other Verified 04/24/24 10:13 Anti-Inflamma Family History Grandfather Arthritis Colon cancer Liver disease Grandmother Arthritis Hypertension Anemia Mother Arthritis Osteoporosis Father Hypertension Arthritis Liver disease Sister Arthritis Surgical History S/P insertion of spinal cord stimulator History of left heart catheterization History of open reduction and internal fixation (ORIF) procedure History of cardiac catheterization (2009) Hx of spinal fusion Hx of surgical procedure Hx of surgical procedure Hx laparoscopic cholecystectomy Hx of hysterectomy Hx of colonoscopy History of bursectomy H/O laminectomy Hx of cataract surgery H/O gastric bypass S/P vaginopexy History of repair of rectocele history excision melanoma forehead History of bilateral knee replacement Social History Smoking Status: Never smoker alcohol intake: never substance use type: does not use caffeine: No what type of physical activity do you participate in: other details: PT for strength & balance corinne/adventist: Congregational seatbelt use: always ROS ROS ED Constitutional Constitutional ED: Reports fatigue; Denies chills or fever(s) Eyes Eyes: Denies change in vision or diplopia ENT ENT ED: Denies rhinorrhea or sore throat Cardiovascular Cardiovascular: Reports leg edema and lightheadedness; Denies chest pain, orthopnea, palpitations or syncope Respiratory/Chest Respiratory/Chest: Reports dyspnea on exertion; Denies cough or orthopnea Gastrointestinal Gastrointestinal: Denies abdominal pain, diarrhea, nausea or vomiting Genitourinary Genitourinary ED: Denies dysuria or hematuria Musculoskeletal Musculoskeletal: Denies back pain or neck pain Integumentary Reports as per HPI and wounds; Denies abscess or rash Neurologic Neurologic: Denies headache(s), paresthesias or weakness Psychiatric Psychiatric: Denies anxiety or suicidal thoughts EXAM Physical Exam Const Vital Signs: 04/24/24 10:06 04/24/24 10:09 04/24/24 12:06 Temperature 98.1 F Temperature Source Oral Pulse Rate 86 75 Pulse Rate [Lying] Pulse Rate [Sitting (for 1 minute prior to obtaining)] Pulse Rate [Standing (for 1 minute prior to obtaining)] Respiratory Rate 19 H 19 H Blood Pressure 74/51 L 90/49 L 102/50 L Blood Pressure [Lying] Blood Pressure [Sitting (for 1 minute prior to obtaining)] Blood Pressure [Standing (for 1 minute prior to obtaining)] Blood Pressure Mean 58 62 67 Blood Pressure Mean [Lying] Blood Pressure Mean [Sitting (for 1 minute prior to obtaining)] Blood Pressure Mean [Standing (for 1 minute prior to obtaining)] Pulse Ox 100 100 Oxygen Delivery Method Room Air 04/24/24 12:17 Temperature Temperature Source Pulse Rate Pulse Rate [Lying] 75 Pulse Rate [Sitting (for 1 minute prior to obtaining)] 76 Pulse Rate [Standing (for 1 minute prior to obtaining)] 83 Respiratory Rate Blood Pressure Blood Pressure [Lying] 111/52 L Blood Pressure [Sitting (for 1 minute prior to obtaining)] 110/56 L Blood Pressure [Standing (for 1 minute prior to obtaining)] 104/56 L Blood Pressure Mean Blood Pressure Mean [Lying] 71 Blood Pressure Mean [Sitting (for 1 minute prior to obtaining)] 74 Blood Pressure Mean [Standing (for 1 minute prior to obtaining)] 72 Pulse Ox Oxygen Delivery Method Positive well nourished and well developed Constitutional Narrative: Will-appearing, conversive in full sentences, nontoxic and not ill-appearing General Appearance ED: well developed and NAD HEENT Reports moist mucous membranes normocephalic and atraumatic Eyes PERRL and EOMs intact bilaterally Neck full ROM, supple and no JVD Resp normal respiratory effort and clear to auscultation bilaterally Cardio regular rate and regular rhythm Heart Sounds: murmur systolic II/ crescendo-decrescendo left sternal border GI non-tender and non-distended Auscultation: normoactive bowel sounds Palpation: soft Back/Spine no CVA tenderness General Back: other FROM Extremity normal to inspection General Extremety ED: Yes edema; Negative for pulses abnormal or tenderness General Extremity: edema bilateral lower extremity Details: mild; Negative for pulses abnormal Neuro oriented x3, CN's II-XII intact bilaterally and no sensory deficits noted Sensorium / Orientation: awake and alert Motor Exam: strength 5/5 throughout Psych mental status grossly normal Skin no rashes or lesions noted Skin Narrative: Healing superficial nontender wound right lateral lower leg with iodoform gauze and a dressing on it. Pinpoint healing wounds left lower leg no tenderness or signs of infection. MDM MDM MDM Narrative Medical decision making narrative: Obtain labs, EKG, chest x-ray, urine to rule out metabolic abnormalities, infections, electrical block, other reasons for her to be hypotensive. In the meantime she was given 500 cc of IV fluids as a bolus and allowed to drink some water, and on reevaluation she has much better blood pressure after the fluids now at 114/57 and she is feeling well. Her labs show CISCO with prerenal azotemia likely due to overdiuresis. Obtain more information from the who says once she had severe hyponatremia down into the 110 range and below, she was admitted to the ICU in [place] for a while for that and so since they have had her on Lasix. Today she is 139, but given the circumstances I would recommend holding the Lasix altogether until she follows up with her doctor and maintain the carvedilol on current dosing. They are comfortable with that plan. With regards to the chest x-ray 2 views of my interpretation showed no pneumonia, radiology in agreement and her urine shows 500 leukocyte esterase but her other infection indicators are negative some sending her for culture but she does not have any symptoms other than frequency that she had after taking furosemide, no need for emergent antibiotics unless her culture returns positive. We performed orthostatics at this point and they were negative and she did not feel lightheaded/dizzy. She is comfortable following up with her doctor after the weekend. History & Record Review Discussion w/independent historian: Patient and Significant other Lab Data Attestation: I reviewed the patient's lab results. Labs: Laboratory Results - last 24 hr 04/24/24 04/24/24 04/24/24 10:47 11:41 12:07 WBC 9.2 RBC 3.15 L Hgb 9.9 L Hct 31.8 L MCV 101.0 H MCH 31.4 MCHC 31.1 L RDW Std Deviation 69.8 H RDW Coeff of Chuyita 18.6 H Plt Count 196 MPV 9.1 Immature Gran % (Auto) 0.600 Neut % (Auto) 78.3 H Lymph % (Auto) 13.6 L [place]eker % (Auto) 5.6 Eos % (Auto) 1.4 Baso % (Auto) 0.5 Absolute Neuts (auto) 7.2 Absolute Lymphs (auto) 1.26 Nucleated RBC % 0 Anisocytosis 1+ Sodium 139 Potassium 3.9 Chloride 102 Carbon Dioxide 29.0 Anion Gap 8 BUN 57 H Creatinine 1.67 H Estim Creat Clear Calc 24.41 Est GFR (MDRD) Af Amer 38 L Est GFR (MDRD) Non-Af 32 L BUN/Creatinine Ratio 34.1 H Glucose 165 H Lactic Acid 1.9 Calcium 8.0 L Troponin I High Sens 6 Urine Color Yellow Urine Clarity Clear Urine pH 6.0 Ur Specific Bricelyn 1.010 Urine Protein Negative Urine Glucose (UA) 100 H Urine Ketones Negative Urine Occult Blood 25 H Urine Nitrite Negative Urine Bilirubin Negative Urine Urobilinogen Normal Ur Leukocyte Esterase 500 H Urine RBC 0-5 SEEN Urine WBC 0-5 SEEN Ur Squamous Epith Cells 0-5 SEEN Urine Bacteria 2+ Urine Mucus 0 SEEN Radiography Diagnostic Testing: Clinical Impression(s) from Imaging Studies Chest X-Ray 04/24/24 11:00 IMPRESSION: No acute cardiopulmonary abnormality. No interval change. Electronically Signed: Beck Chin MD at 11:52 EST , Rhythm Strip Rhythm Strip: Sinus Rhythm Rate: 80 Ectopy: None EKG Initial EKG: Attestation: I personally reviewed and interpreted this EKG as follows: Interpretation: Sinus Rhythm and No Acute Injury Pattern Comments: Nml axis & intervals; nml EKG Discharge Plan Triage Chief Complaint: Dizziness ED Provider: Bartolome Jimenez Dx/Rx/DC Orders Clinical Impression: Transient hypotension, CISCO (acute kidney injury), Acute prerenal azotemia Instructions: ED Dehydration (Adult), ED Hypotension, Orthostatic Prescriptions: Continued Adult Probiotic 3 billion cell capsule 3,000 mmu cells PO DAILY Kerendia 10 mg tablet 10 mg PO DAILY Prolia 60 mg/mL syringe 60 mg subcut [id number] Myrbetriq 25 mg tablet extended release 24 hr 25 mg PO DAILY gabapentin [Neurontin] 300 mg capsule 300 mg PO TID olanzapine 2.5 mg tablet 2.5 mg PO DAILY Citrucel 500 mg tablet 1,000 mg PO DAILY calcium citrate 200 mg (950 mg) tablet 400 mg PO DAILY cholestyramine (with sugar) 4 gram powder in packet PO hydralazine 25 mg tablet 25 mg PO ONCE haloperidol 0.5 mg tablet 0.5 mg PO DAILY tramadol 25 mg tablet 25 mg PO Q6H PRN (Reason: pain) telmisartan 20 mg tablet 40 mg PO BID pantoprazole 40 MG tablet 40 mg PO DAILY melatonin 3 mg tablet 6 mg PO QHS nystatin 100,000 unit/gram cream 1 applic topical BID Farxiga 10 mg tablet 10 mg PO DAILY Changed carvedilol 25 mg tablet 6.25 mg PO BID Qty: 60 0RF Held furosemide 20 mg tablet 40 mg PO DAILY Hold Instructions: until reevaluated by your doctor Patient Comments: TAKE 1 TABLET BY MOUTH EVERY DAY potassium chloride 20 mEq tablet extended release 20 meq PO DAILY Qty: 90 3RF Hold Instructions: hold while holding furosemide Primary Care Provider: Hugo Julio Referrals: Hugo Julio MD [Primary Care Provider] - As soon as possible Print Language: Kinyarwanda Disposition Disposition: Home, Self Care
[2024-04-24] MEDS: 0.9% Normal Saline (500mL Bag) 500 ML 1000 ML IV (10:49)
[2024-04-24 10:52] LABS: Absolute Lymphocyte Count 1.26 X10^3/uL (0.83-4.51); Absolute Neutrophil Count 7.2 X10^3/uL (2.0-7.7); Basophil# 0.05 X10^3/uL; Basophil% 0.5 % (0-1); Differential Indicated SCAN CRITERIA MET; Eosinophil# 0.13 X10^3/uL; Eosinophils% 1.4 % (0-5); Hematocrit 31.8 % (37-47); Hemoglobin 9.9 g/dL (12.0-15.0); Lymphocyte # 1.26 X10^3/ul (0.83-4.51); Lymphocyte % 13.6 % (19-41); Mean Corp Hgb Conc 31.1 g/dL (32-36); Mean Corpuscular Hgb 31.4 pg (27.0-32.0); Mean Platelet Vol. 9.1 fl (6.2-12.0); Monocyte# 0.52 X10^3/uL; Monocyte% 5.6 % (0-10); NRBC Flagged by Analyzer 0 % (0-5); Neutrophil # 7.22 X10^3/uL (2.7-7.7); Neutrophil % 78.3 % (47-70); POSITIVE MORPHOLOGY YES; Platelet Count 196 K/mm3 (150-450); RBC Distribution Width CV 18.6 % (11.6-14.6); RBC Distribution Width SD 69.8 fl (35.1-43.9); Red Blood Count 3.15 M/mm3 (4.2-5.4); White Blood Count 9.2 K/mm3 (4.4-11.0)
--- NOTE | 2024-04-24 11:00 | RAD_ITS ---
EXAM: XR CHEST, 2 VIEWS CLINICAL INDICATION: weakness TECHNIQUE: Frontal and lateral views of the chest. COMPARISON: XR Chest dated 01/03/2021 FINDINGS: LUNGS AND PLEURAL SPACES: Normal. No consolidation or edema. No pneumothorax. No effusion. HEART: Normal heart size. MEDIASTINUM: No mediastinal or hilar mass. 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 TUBES, LINES AND DEVICES: Intraspinal stimulator wire in place at the lower thoracic level. RAD/Chest PA and Lateral IMPRESSION: No acute cardiopulmonary abnormality. No interval change. Electronically Signed: Beck Chin MD at 11:52 EST ,
[2024-04-24 11:08] LABS: Anion Gap 8 (5-15); BUN 57 mg/dL (7-18); BUN/Creat Ratio 34.1 RATIO (10-20); Chloride 102 mmol/L (98-107); Creatinine, Serum 1.67 mg/dL (0.55-1.02); EST Glomerular Filtration Rate 32 mL/min (>60); Est Glom Filt Rate - Afr Amer 38 mL/min (>60); Estimated Creatinine Clearance 24.41 ml/min; Glucose 165 mg/dL (74-106); Potassium 3.9 mmol/L (3.5-5.1); Sodium Level 139 mmol/L (136-145); Troponin-I HS 6 pg/mL (3.0-54.0)
[2024-04-24 11:15] LABS: Anisocytosis 1+
[2024-04-24 11:45] LABS: Mucous, Urine 0 SEEN /hpf (<or=2+)
[2024-04-24 11:48] LABS: Color, Urine Yellow (Yellow); Glucose, Dipstick 100 mg/dl (Normal); Ketone-Dipstick Negative (Negative); Leukocyte Esterase-Dipstick 500 /ul (Negative); Nitrite-Dipstick Negative (Negative); Occult Blood-Urine 25 /ul (Negative); Protein-Dipstick Negative (Negative); Urine Bilirubin Dipstick Negative (Negative); Urine Clarity Clear (Clear); Urine Urobilinogen Normal (Normal)
[2024-04-24 11:54] LABS: Bacteria 2+ /hpf (None Seen); Red Blood Cells-Urine 0-5 SEEN /hpf (0-5); Squamous Epithelial Cells - UA 0-5 SEEN /hpf (5-10); White Blood Cells 0-5 SEEN /hpf (0-5)
[2024-04-24 12:06] VITALS: BP 102/50; PULSE 75; RESP 19; O2SAT 100
[2024-04-24 12:17] VITALS: BP 104/56; BP 110/56; BP 111/52; PULSE 75; PULSE 76; PULSE 83
[2024-04-24 12:37] LABS: Lactic Acid 1.9 mmol/L (0.4-1.9)
[2024-04-24 12:56] VITALS: BP 122/49; PULSE 79; RESP 19; TEMP 36.4; O2SAT 100
== END 2024-04-24 13:18 | disposition home or self-care (01) ==
PROVIDERS: Emergency Provider Emergency Medicine; PCP Family Medicine; Visit Provider Emergency Medicine
DX: I95.89 Other hypotension (principal); N17.9 Acute kidney failure, unspecified; I10 Essential (primary) hypertension; Z79.899 Other long term (current) drug therapy
CPT/HCPCS: 71046; 80048; 81001; 83605; 84484; 85025; 87077; 87086; 87088; 87186; 93005; 96360; 99285; J7040; A4216

== ENCOUNTER → 2024-04-26 | Outpatient (CLI) | payer MEDICARE, OTHER, SELFPAY ==
[2024-04-26 12:31] LABS: PTHIN 131.8 pg/mL (18.4-80.1)
[2024-04-26 13:00] LABS: ALB/GLOB Ratio 0.8 RATIO (0.9-2.4); AST(SGOT) 12 U/L (15-37); Alanine Aminotransfer ALT/SGPT 17 U/L (13-56); Albumin, Serum 2.2 g/dL (3.2-5.0); Alkaline Phosphatase 108 U/L (45-117); Anion Gap 7 (5-15); BUN 48 mg/dL (7-18); BUN/Creat Ratio 39.7 RATIO (10-20); Calcium,Total 7.7 mg/dL (8.5-10.1); Chloride 104 mmol/L (98-107); Creatinine, Serum 1.21 mg/dL (0.55-1.02); EST Glomerular Filtration Rate 46 mL/min (>60); Est Glom Filt Rate - Afr Amer 55 mL/min (>60); Globulin 2.9 g/dL (2.2-4.2); Glucose 87 mg/dL (74-106); Potassium 3.5 mmol/L (3.5-5.1); Protein, Total 5.1 g/dL (6.4-8.2); Sodium Level 136 mmol/L (136-145)
[2024-04-26 15:10] LABS: Hemoglobin A1c 5.4 % (3.8-5.6)
== END | disposition home or self-care (01) ==
PROVIDERS: PCP Family Medicine; Referring Provider Internal Medicine Endocrinology, Diabetes & Metabolism; Visit Provider Internal Medicine Endocrinology, Diabetes & Metabolism
DX: E11.21 Type 2 diabetes mellitus with diabetic nephropathy (principal); E21.1 Secondary hyperparathyroidism, not elsewhere classified
CPT/HCPCS: 36415; 80053; 83036; 83970

== ENCOUNTER 2024-04-28 09:30 | Outpatient (RCR) | payer MEDICARE, OTHER, SELFPAY ==
[2024-04-02 00:32] VITALS: BP 117/57; PULSE 88; RESP 18; TEMP 36.1; BMI 35.2
[2024-04-21 09:28] VITALS: BP 92/42; PULSE 85; RESP 18; TEMP 35.9; BMI 35.2
--- NOTE | 2024-04-21 11:37 | PN.PCM_ITS ---
History of Present Illness Date of Service: 04/21/24 Chief Complaint: Genitourinary area and up and to the coccyx area also erythema History of Wound: 78-year-old white female with history of diabetes who is well-controlled at 5.7 A1c at her last checkup . She has developed a pathological of pelvic fracture from her osteoporosis. She is currently taking Prolia and calcium and vitamin D. She usually transports in a wheelchair but she does walk with a walker at home. Any kind of stress or movements or coughing or sneezing causes her a lot of incontinence. Therefore she develops areas on her buttocks on and off from scooting in the bed and laying on the couch all day. She also has an open area on her mid back actually is upper lumbar area. She suffers from scoliosis and I think it just rubs and she gets an open area which is open and positive depth. She also has a small superficial opening at her sacral area. In her bilateral buttocks are healed. Also fell in the bathroom or somewhere in his superficial skin tears on her right lower leg that she has had since [place]. She was treated with an Unna boot and now she is on wet to dry dressings. Progress of Wound: The bilateral buttocks wounds are healed. She is using Calmoseptine I suggest she not use that but something with moisture in it like A&D ointment. Then she has open area on her upper lumbar that is open adjacent to her spine. It has positive depth no sign of infection but has a dry base will debride. And she has open area on her right lower leg that are superficial and that I debrided some of the scabbing off but will try using Xeroform on that. She has had these wounds for at least since March Patient is taking in good oral intake of nutrition and supplements per her . Subjective Subjective Patient and are agreeable to plan Objective Data Objective Data Upper lumbar spine wound debrided no sign of infection and will use Aquacel extra with Adaptic over top with a foam dressing. For her bilateral buttocks she should use A&E ointment For the right lower leg will try the Xeroform with Adaptic with dry dressings and Claudy then a compression stocking single-layer Patient is to follow-up in 1 week and hopefully her legs will clear up quickly Vital Signs: Vital Signs Temp Pulse Resp BP 96.6 F L 85 18 92/42 L 04/21/24 09:28 04/21/24 09:28 04/21/24 09:28 04/21/24 09:28 Weight: 157 lb Body Mass Index (BMI) 35.2 Physical Exam Const oriented x3 General Appearance: cooperative Exam Limitations: no limitations HEENT normocephalic Face and Sinus: normal facial exam External Ear: external ears normal Eyes PERRL General Eye: normal appearance of both eyes Neck General: normal visual inspection Resp normal respiratory effort Auscultation: clear to auscultation bilaterally Cardio regular rate and regular rhythm Palpation: normal PMI Rate: regular rate Rhythm: regular rhythm GI Palpation: soft and no hepatosplenomegaly external exam normal Narrative: Erythematous vaginal area into her rectal area and up on her coccyx Back/Spine Back/Spine Narrative: Open wound on the upper half of her lumbar near her spine open triangle from pressure and shearing Skin Skin Narrative: Bilateral buttocks wounds is just a healed scar. Does have an open area on her sacrum superficial stage stage II from shearing Buttocks cheeks and groin area are slightly erythematous from chronic incontinence of urine General Skin Exam: erythema Wound Narrative: She has an open area on her sacral area that is superficial open area about the size of a dime. She also has open scabbed areas on her lower extremities superficial skin tears on the right lower leg Neuro oriented x3 Psych Appearance: grossly normal Speech: normal speech Thought Content: normal thought content Judgement: judgement good Debridement Note Debridement Note Wound debrided: Mid back wound Laterality: Not Applicable Wound Grade/Stage: Stage II decubitus ulcer Type of Debridement: Excisional debridement Anesthesia Used: 5% Lidocaine Gel Depth: Down to and including healthy tissue Percentage of wound debrided: 100 Instrument Used: 5mm curette Tissue Removed: Fibrin and devitalized tissue Severity: Fat Layer Exposed Amount of bleeding with debridement: Mild Bleeding Controlled with: Pressure Patient tolerated procedure: Patient tolerated procedure well Post-Debridement Measurements and Additional Note: Post-Debridement Measurements/Treatment WC - Nurse 1 - General Ulcer Assessment Start: 04/21/24 09:28 Freq: Status: Active Protocol: MIGUEL Activity Type Activity Date Activity User E-sign Co-sign Detail Recorded Client Recorded Date Recorded By Document 04/21/24 09:28 DL [id number] 04/21/24 09:44 DL 04/21/24 09:28 WC - Today's Visit Information Type of service Follow-up Visit (Physician/PHYSICIAN CODING SPECIALIST ) Arrival Mode Ambulatory, Wheelchair Transfer Assistance Manual,None Transfer Assist (Other) x1 Patient Identification Verified (Name & Yes ) Patient Requires Transmission-Based No Precautions Height and Weight Body Mass Index (BMI) 35.2 BMI Classification Obese Vital Signs Temperature (97.8 F-99.1 F) 96.6 F L Temperature Source Temporal Pulse Rate (60-100) 85 Pulse Location Monitor Respiratory Rate (12-18) 18 Blood Pressure (90/60-120/80) 92/42 L Blood Pressure Mean (mm Hg) 58 Source Monitor History Since Last Visit- (Skip if this is Patient's initial visit) Have you changed medications since your No last visit? Any new allergies or adverse reactions No Had a fall/change in ADL's that may No increase risk of falls Signs or symptoms of abuse and/or No neglect since last visit Have you been in the hospital since your No last visit? Has dressing in place as prescribed Yes Has compression in place as prescribed N/A Has offloadiing in place as prescribed Yes Experienced any changes in pain level or No management Pain Scale: 0-10 Numeric Is Patient Pain Free? Yes - Nurse 1 - General Ulcer Measurement Start: 04/21/24 09:28 Freq: Status: Active Protocol: Activity Type Activity Date Activity User E-sign Co-sign Detail Recorded Client Recorded Date Recorded By Document 04/21/24 09:28 DL [id number] 04/21/24 09:44 DL 04/21/24 09:28 Wound Center Nurse 1 #2- L BUTTOCKS -Current Size (cm) - Length 0.1 -Current Size (cm) - Width 0.1 -Current Size (cm) - Depth 0.1 -Total Square Cm 0.01 -Date of Last Picture (Recall this 04/21/24 field) -Exudate Amt None Present -Texture (Janki-wound Skin Appearance) Assessed -Moisture (Janki-wound Skin Appearance) Assessed -Color (Janki-wound Skin Appearance) Assessed -Temperature (Janki-wound Skin No Abnormality Appearance) (Pt Warm) -Tenderness on Palpation (Janki-wound No Skin Appearance) -Ulcer Cleansing Rinsed/ Irrigated with Saline -Foul Odor after Cleansing No -Wound Comment(s) possibly healed 1. R buttocks -Combined with (Name of Wound-Exactly .1 as it is documented) -Current Size (cm) - Length 0.1 -Current Size (cm) - Width 0.1 -Total Square Cm 0.01 -Date of Last Picture (Recall this 04/21/24 field) -Texture (Janki-wound Skin Appearance) Assessed -Moisture (Janki-wound Skin Appearance) Assessed -Color (Janki-wound Skin Appearance) Assessed -Temperature (Janki-wound Skin No Abnormality Appearance) (Pt Warm) -Tenderness on Palpation (Janki-wound No Skin Appearance) -Ulcer Cleansing Rinsed/ Irrigated with Saline -Foul Odor after Cleansing No #5 rt lat le cluster -Current Size (cm) - Length 4.5 -Current Size (cm) - Width 2.3 -Current Size (cm) - Depth 0.1 -Total Square Cm 10.35 -Date of Last Picture (Recall this 04/21/24 field) -Exudate Amt Small -Exudate Type Serosanguineous -Wound Margin Distinct, Outline Attached -Granulation Amt Large (67-100%) -Granulation Quality Red -Texture (Janki-wound Skin Appearance) Assessed -Moisture (Janki-wound Skin Appearance) Assessed -Color (Janki-wound Skin Appearance) Assessed -Temperature (Janki-wound Skin No Abnormality Appearance) (Pt Warm) -Tenderness on Palpation (Janki-wound No Skin Appearance) -Ulcer Cleansing Rinsed/ Irrigated with Saline -Foul Odor after Cleansing No -Anesthetic Used 5% Lidocaine Gel #4 sacral -Current Size (cm) - Length 0.7 -Current Size (cm) - Width 0.5 -Current Size (cm) - Depth 0.2 -Total Square Cm 0.35 -Date of Last Picture (Recall this 04/21/24 field) -Exudate Amt Small -Exudate Type Serosanguineous -Wound Margin Distinct, Outline Attached -Granulation Amt Medium (34-66%) -Granulation Quality [place] -Necrosis Amt Medium (34-66%) -Necrotic Tissue Type Adherent Slough -Texture (Janki-wound Skin Appearance) Assessed -Moisture (Janki-wound Skin Appearance) Assessed -Color (Janki-wound Skin Appearance) Assessed -Temperature (Janki-wound Skin No Abnormality Appearance) (Pt Warm) -Tenderness on Palpation (Janki-wound No Skin Appearance) -Ulcer Cleansing Rinsed/ Irrigated with Saline -Foul Odor after Cleansing No -Anesthetic Used 5% Lidocaine Gel #3 mid back -Current Size (cm) - Length 1 -Current Size (cm) - Width 0.8 -Current Size (cm) - Depth 0.2 -Total Square Cm 0.8 -Date of Last Picture (Recall this 04/21/24 field) -Wound Margin Distinct, Outline Attached -Granulation Amt None Present (0 %) -Necrosis Amt Large (67-100%) -Necrotic Tissue Type Adherent Slough -Texture (Janki-wound Skin Appearance) Assessed -Moisture (Janki-wound Skin Appearance) Assessed -Color (Janki-wound Skin Appearance) Assessed -Temperature (Janki-wound Skin No Abnormality Appearance) (Pt Warm) -Tenderness on Palpation (Janki-wound No Skin Appearance) -Ulcer Cleansing Rinsed/ Irrigated with Saline -Foul Odor after Cleansing No -Anesthetic Used 5% Lidocaine Gel WC - Nurse 2 - General Ulcer CM Notes Start: 04/21/24 09:28 Freq: Status: Active Protocol: Activity Type Activity Date Activity User E-sign Co-sign Detail Recorded Client Recorded Date Recorded By Document 04/21/24 09:50 BMF [id number] 04/21/24 10:01 BMF Edit Result 04/21/24 09:50 BMF (1) [id number] 04/21/24 11:06 BMF (1) #5 rt lat le cluster - Debridement - Subq, 1st 20sq cm Yes => No 04/21/24 09:50 Wound Center Nurse 2 #5 rt lat le cluster -Time 09:56 -Correct Patient Yes -Correct Side, Site, Position Yes -Correct Procedure Yes -Procedure Performed Yes -Type of Procedure Debridement -Clinical Debridement Subcutaneous -Tissue Removed Subcutaneous -Post Debridement (cm) - Length 8 -Post Debridement (cm) - Width 2.3 -Post Debridement (cm) - Depth 0.1 -Total Square (Post) (cm) 18.4 -Area of Debridement (cm) - Length 8 -Area of Debridement (cm) - Width 2.3 -Total Square (Area) (cm) 18.4 -Tunneling No -Undermining/Tunneling No -Circular Undermining No -Wound/Ulcer Outcome Not Healed -Ulcer Cleansing Rinsed/ Irrigated with Saline -Foul Odor after Cleansing No -Bioengineered Tissue No -Bleeding Controlled with Pressure -Treatment Response Procedure Tolerated Well -Debridement - Subq, 1st 20sq cm No #4 sacral -Time 09:53 -Correct Patient Yes -Correct Side, Site, Position Yes -Correct Procedure Yes -Procedure Performed Yes -Type of Procedure Debridement -Clinical Debridement Subcutaneous -Tissue Removed Subcutaneous -Post Debridement (cm) - Length 1.2 -Post Debridement (cm) - Width 0.5 -Post Debridement (cm) - Depth 0.2 -Total Square (Post) (cm) 0.60 -Area of Debridement (cm) - Length 1.2 -Area of Debridement (cm) - Width 0.5 -Total Square (Area) (cm) 0.60 -Tunneling No -Undermining/Tunneling No -Circular Undermining No -Wound/Ulcer Outcome Not Healed -Ulcer Cleansing Rinsed/ Irrigated with Saline -Foul Odor after Cleansing No -Bioengineered Tissue No -Bleeding Controlled with Pressure -Treatment Response Procedure Tolerated Well -Offloading No -Debridement - Subq, 1st 20sq cm No #3 mid back -Time 09:51 -Correct Patient Yes -Correct Side, Site, Position Yes -Correct Procedure Yes -Procedure Performed Yes -Type of Procedure Debridement -Clinical Debridement Subcutaneous -Tissue Removed Subcutaneous -Post Debridement (cm) - Length 1.4 -Post Debridement (cm) - Width 1.2 -Post Debridement (cm) - Depth 0.2 -Total Square (Post) (cm) 1.68 -Area of Debridement (cm) - Length 1.4 -Area of Debridement (cm) - Width 1.2 -Total Square (Area) (cm) 1.68 -Tunneling No -Undermining/Tunneling No -Circular Undermining No -Wound/Ulcer Outcome Not Healed -Ulcer Cleansing Rinsed/ Irrigated with Saline -Foul Odor after Cleansing No -Bioengineered Tissue No -Bleeding Controlled with Pressure -Treatment Response Procedure Tolerated Well -Debridement - Subq, 1st 20sq cm Yes -Debridement, SubQ, ea addt'l 20sq cm 1 or part thereof Pain Scale: 0-10 Numeric Is Patient Pain Free? Yes Additional Wound Wound debrided: Right lower extremity superficial wounds Laterality: Right Type of Debridement: Excisional debridement Anesthesia Used: 5% Lidocaine Gel Depth: Down to and including healthy tissue Percentage of wound debrided: 100 Instrument Used: 5mm curette Tissue Removed: Devitalized tissue and fibrin Amount of bleeding with debridement: Mild Bleeding Controlled with: Compression and gauze Patient tolerated procedure: Patient tolerated procedure well Additional Wound Wound debrided: Sacral wound Wound Grade/Stage: Stage II Type of Debridement: Excisional debridement Depth: Down to and including healthy tissue Percentage of wound debrided: 100 Instrument Used: 3mm curette Tissue Removed: Fibrin Severity: Limited To Skin Breakdown Amount of bleeding with debridement: Mild Bleeding Controlled with: Compression and gauze Patient tolerated procedure: Patient tolerated procedure well Assessment/Plan Assessment/Plan (1) Decubitus ulcer of sacral area: CODE(S): L89.159 - Pressure ulcer of sacral region, unspecified stage QUALIFIERS: Pressure injury stage: stage 2 Qualified Code(s): L89.152 - Pressure ulcer of sacral region, stage 2 PLAN: Wash area with antibacterial soap such as Dial and then apply Aquacel extra moistened with Adaptic over top and a foam dressing every day Follow-up 1 week (2) Decubitus ulcer of back, stage 2: CODE(S): L89.102 - Pressure ulcer of unspecified part of back, stage 2 PLAN: Wash mid back area with antibacterial soap and water and apply Aquacel extra to wound base moistened cover with Adaptic and foam dressing every day Follow-up in 1 week (3) Localized swelling of both lower legs: CODE(S): R22.43 - Localized swelling, mass and lump, lower limb, bilateral PLAN: Apply single-layer Tubigrip's to legs (4) Traumatic open wound of right lower leg: CODE(S): S81.801A - Unspecified open wound, right lower leg, initial encounter QUALIFIERS: Encounter type: initial encounter Qualified Code(s): S81.801A - Unspecified open wound, right lower leg, initial encounter PLAN: Wash right leg with antibacterial soap and water such as Dial and apply Xeroform to open areas covered with Adaptic then gauze dry gauze and Claudy and then a Tubigrip over top every day. Follow-up in 1 week
--- NOTE | 2024-04-22 08:37 | WC ---
PHOTO 04/21/24 RIGHT BUTTOCK/SACRAL/LEFT BUTTOCK
--- NOTE | 2024-04-22 08:40 | WC ---
PHOTO 04/21/24 BACK
--- NOTE | 2024-04-22 08:42 | WC ---
PHOTO 04/21/24 RIGHT LATERAL LE CLUSTER
[2024-04-28 09:32] VITALS: BP 102/43; PULSE 84; RESP 18; TEMP 36.2; BMI 35.2
--- NOTE | 2024-04-28 12:00 | PCM.WC.PN ---
History of Present Illness Date of Service: 04/28/24 Chief Complaint: Genitourinary area and up and to the coccyx area also erythema History of Wound: 78-year-old white female with history of diabetes who is well-controlled at 5.7 A1c at her last checkup . She has developed a pathological of pelvic fracture from her osteoporosis. She is currently taking Prolia and calcium and vitamin D. She usually transports in a wheelchair but she does walk with a walker at home. Any kind of stress or movements or coughing or sneezing causes her a lot of incontinence. Therefore she develops areas on her buttocks on and off from scooting in the bed and laying on the couch all day. She also has an open area on her mid back actually is upper lumbar area. She suffers from scoliosis and I think it just rubs and she gets an open area which is open and positive depth. She also has a small superficial opening at her sacral area. In her bilateral buttocks are healed. Also fell in the bathroom or somewhere in his superficial skin tears on her right lower leg that she has had since [place]. She was treated with an Unna boot and now she is on wet to dry dressings. Progress of Wound: The bilateral buttocks wounds are healed. She is using Calmoseptine I suggest she not use that but something with moisture in it like A&D ointment. Then she has open area on her upper lumbar that is open adjacent to her spine. It is more flat this week than depth. She has open area on her right lower leg that are superficial that are healed she also has a sacral wound that is very small that were putting fibber call on and we debrided that area also it is more superficial. She has had these wounds for at least since March Patient is taking in good oral intake of nutrition and supplements per her . She was recently in the hospital for pneumonia. Subjective Subjective Patient is appreciative of the healing of her legs and the back is doing better. Objective Data Objective Data So the sacral area and the lower lumbar is basically all that is left of the wounds the lower legs and the buttocks are all cleared. Vital Signs: Vital Signs Temp Pulse Resp BP 97.2 F L 84 18 102/43 L 04/28/24 09:32 04/28/24 09:32 04/28/24 09:32 04/28/24 09:32 Weight: 157 lb Body Mass Index (BMI) 35.2 Lab / Micro Data Attestation: I reviewed the patient's lab results. Physical Exam Const oriented x3 General Appearance: cooperative Exam Limitations: no limitations HEENT normocephalic Face and Sinus: normal facial exam External Ear: external ears normal Eyes PERRL General Eye: normal appearance of both eyes Neck General: normal visual inspection Resp normal respiratory effort Auscultation: clear to auscultation bilaterally Cardio regular rate and regular rhythm Palpation: normal PMI Rate: regular rate Rhythm: regular rhythm GI Palpation: soft and no hepatosplenomegaly external exam normal Narrative: Erythematous vaginal area into her rectal area and up on her coccyx Back/Spine Back/Spine Narrative: Open wound on the upper half of her lumbar near her spine open triangle from pressure and shearing Skin Skin Narrative: Bilateral buttocks wounds is just a healed scar. Does have an open area on her sacrum superficial stage stage II from shearing Buttocks cheeks and groin area are slightly erythematous from chronic incontinence of urine Wound Narrative: She has an open area on her lower lumbar area that is superficial open area about the size of a dime. She also has a another area on her sacral area that is small and open and superficial Neuro oriented x3 Psych Appearance: grossly normal Speech: normal speech Thought Content: normal thought content Judgement: judgement good Debridement Note Debridement Note Wound debrided: Lower lumbar decubitus ulcer Wound Grade/Stage: Stage II Type of Debridement: Excisional debridement Anesthesia Used: 5% Lidocaine Gel Depth: Down to and including healthy tissue Instrument Used: 5mm curette Tissue Removed: Fibrin some slough Severity: Fat Layer Exposed Amount of bleeding with debridement: None Bleeding Controlled with: Pressure Patient tolerated procedure: Patient tolerated procedure well Post-Debridement Measurements and Additional Note: Post-Debridement Measurements/Treatment - Nurse 1 - General Ulcer Assessment Start: 04/21/24 09:28 Freq: Status: Active Protocol: MIGUEL Activity Type Activity Date Activity User E-sign Co-sign Detail Recorded Client Recorded Date Recorded By Document 04/21/24 09:28 DL [id number] 04/21/24 09:44 DL Document 04/28/24 09:32 DL [id number] 04/28/24 09:40 DL 04/21/24 04/28/24 09:28 09:32 - Today's Visit Information Type of service Follow-up Visit Follow-up Visit (Physician/HANDTOOLS REPAIRER (Physician/HANDTOOLS REPAIRER ) ) Arrival Mode Ambulatory, Ambulatory Wheelchair Transfer Assistance Manual,None Manual Transfer Assist (Other) x1 x1 Patient Identification Verified (Name & Yes Yes ) Patient Requires Transmission-Based No No Precautions Height and Weight Body Mass Index (BMI) 35.2 35.2 BMI Classification Obese Obese Vital Signs Temperature (97.8 F-99.1 F) 96.6 F L 97.2 F L Temperature Source Temporal Temporal Pulse Rate (60-100) 85 84 Pulse Location Monitor Monitor Respiratory Rate (12-18) 18 18 Respiratory rate source Observation Blood Pressure (90/60-120/80) 92/42 L 102/43 L Blood Pressure Mean (mm Hg) 58 62 Source Monitor Monitor History Since Last Visit- (Skip if this is Patient's initial visit) Have you changed medications since your No Yes last visit? Any new allergies or adverse reactions No No Had a fall/change in ADL's that may No No increase risk of falls Signs or symptoms of abuse and/or No No neglect since last visit Have you been in the hospital since your No No last visit? Has dressing in place as prescribed Yes Yes Has compression in place as prescribed N/A Yes Has offloadiing in place as prescribed Yes Yes Experienced any changes in pain level or No No management Pain Scale: 0-10 Numeric Is Patient Pain Free? Yes Yes - Nurse 1 - General Ulcer Measurement Start: 04/21/24 09:28 Freq: Status: Active Protocol: Activity Type Activity Date Activity User E-sign Co-sign Detail Recorded Client Recorded Date Recorded By Document 04/21/24 09:28 DL [id number] 04/21/24 09:44 DL Document 04/28/24 09:32 DL [id number] 04/28/24 09:40 DL 04/21/24 04/28/24 09:28 09:32 Wound Center Nurse 1 #2- L BUTTOCKS -Current Size (cm) - Length 0.1 -Current Size (cm) - Width 0.1 -Current Size (cm) - Depth 0.1 -Total Square Cm 0.01 -Date of Last Picture (Recall this 04/21/24 field) -Exudate Amt None Present -Texture (Janki-wound Skin Appearance) Assessed -Moisture (Janki-wound Skin Appearance) Assessed -Color (Janki-wound Skin Appearance) Assessed -Temperature (Janki-wound Skin No Abnormality Appearance) (Pt Warm) -Tenderness on Palpation (Janki-wound No Skin Appearance) -Ulcer Cleansing Rinsed/ Irrigated with Saline -Foul Odor after Cleansing No -Wound Comment(s) possibly healed 1. R buttocks -Combined with (Name of Wound-Exactly .1 as it is documented) -Current Size (cm) - Length 0.1 -Current Size (cm) - Width 0.1 -Total Square Cm 0.01 -Date of Last Picture (Recall this 04/21/24 field) -Texture (Janki-wound Skin Appearance) Assessed -Moisture (Janki-wound Skin Appearance) Assessed -Color (Janki-wound Skin Appearance) Assessed -Temperature (Janki-wound Skin No Abnormality Appearance) (Pt Warm) -Tenderness on Palpation (Janki-wound No Skin Appearance) -Ulcer Cleansing Rinsed/ Irrigated with Saline -Foul Odor after Cleansing No #5 rt lat le cluster -Current Size (cm) - Length 4.5 0.1 -Current Size (cm) - Width 2.3 0.1 -Current Size (cm) - Depth 0.1 0.1 -Total Square Cm 10.35 0.01 -Date of Last Picture (Recall this 04/21/24 field) -Exudate Amt Small None Present -Exudate Type Serosanguineous -Wound Margin Distinct, Indistinct, Non Outline -Visible Attached -Granulation Amt Large (67-100%) Large (67-100%) -Granulation Quality Red Pale,[place] -Necrosis Amt None Present (0 %) -Structure Exposed N/A -Texture (Janki-wound Skin Appearance) Assessed Scarring -Moisture (Janki-wound Skin Appearance) Assessed No Abnormality -Color (Janki-wound Skin Appearance) Assessed No Abnormality -Temperature (Janki-wound Skin No Abnormality No Abnormality Appearance) (Pt Warm) (Pt Warm) -Tenderness on Palpation (Janki-wound No Skin Appearance) -Ulcer Cleansing Rinsed/ Soap and Water Irrigated with Saline -Foul Odor after Cleansing No No -Anesthetic Used 5% Lidocaine Gel #4 sacral -Current Size (cm) - Length 0.7 1.2 -Current Size (cm) - Width 0.5 0.8 -Current Size (cm) - Depth 0.2 0.1 -Total Square Cm 0.35 0.96 -Date of Last Picture (Recall this 04/21/24 field) -Exudate Amt Small None Present -Exudate Type Serosanguineous -Wound Margin Distinct, Distinct, Outline Outline Attached Attached -Granulation Amt Medium (34-66%) Large (67-100%) -Granulation Quality [place] -Necrosis Amt Medium (34-66%) Medium (34-66%) -Necrotic Tissue Type Adherent Slough Adherent Slough -Structure Exposed N/A -Texture (Janki-wound Skin Appearance) Assessed Scarring -Moisture (Janki-wound Skin Appearance) Assessed No Abnormality -Color (Janki-wound Skin Appearance) Assessed No Abnormality -Temperature (Janki-wound Skin No Abnormality No Abnormality Appearance) (Pt Warm) (Pt Warm) -Tenderness on Palpation (Janki-wound No Skin Appearance) -Ulcer Cleansing Rinsed/ Soap and Water Irrigated with Saline -Foul Odor after Cleansing No No -Anesthetic Used 5% Lidocaine 5% Lidocaine Gel Gel #3 mid back -Current Size (cm) - Length 1 1.5 -Current Size (cm) - Width 0.8 1.1 -Current Size (cm) - Depth 0.2 0.1 -Total Square Cm 0.8 1.65 -Date of Last Picture (Recall this 04/21/24 field) -Exudate Amt Small -Wound Margin Distinct, Distinct, Outline Outline Attached Attached -Granulation Amt None Present (0 Small (1-33%) %) -Granulation Quality [place] -Necrosis Amt Large (67-100%) Large (67-100%) -Necrotic Tissue Type Adherent Slough Adherent Slough -Structure Exposed N/A -Texture (Janki-wound Skin Appearance) Assessed Scarring -Moisture (Janki-wound Skin Appearance) Assessed No Abnormality -Color (Janki-wound Skin Appearance) Assessed No Abnormality -Temperature (Janki-wound Skin No Abnormality No Abnormality Appearance) (Pt Warm) (Pt Warm) -Tenderness on Palpation (Janki-wound No No Skin Appearance) -Ulcer Cleansing Rinsed/ Soap and Water Irrigated with Saline -Foul Odor after Cleansing No No -Anesthetic Used 5% Lidocaine 5% Lidocaine Gel Gel WC - Nurse 2 - General Ulcer CM Notes Start: 04/21/24 09:28 Freq: Status: Active Protocol: Activity Type Activity Date Activity User E-sign Co-sign Detail Recorded Client Recorded Date Recorded By Document 11/20/24 09:50 BMF [id number] 04/21/24 10:01 BMF Edit Result 04/21/24 09:50 BMF (1) [id number] 04/21/24 11:06 BMF Document 04/28/24 09:54 CP [id number] 04/28/24 10:05 CP (1) #5 rt lat le cluster - Debridement - Subq, 1st 20sq cm Yes => No 04/21/24 04/28/24 09:50 09:54 Wound Center Nurse 2 #5 rt lat le cluster -Time 09:56 09:55 -Correct Patient Yes -Correct Side, Site, Position Yes -Correct Procedure Yes -Procedure Performed Yes -Type of Procedure Debridement -Clinical Debridement Subcutaneous -Tissue Removed Subcutaneous -Post Debridement (cm) - Length 8 0 -Post Debridement (cm) - Width 2.3 0 -Post Debridement (cm) - Depth 0.1 0 -Total Square (Post) (cm) 18.4 0 -Area of Debridement (cm) - Length 8 -Area of Debridement (cm) - Width 2.3 -Total Square (Area) (cm) 18.4 -Tunneling No -Undermining/Tunneling No -Circular Undermining No -Wound/Ulcer Outcome Not Healed Healed- Epithelialized -Ulcer Cleansing Rinsed/ Irrigated with Saline -Foul Odor after Cleansing No -Bioengineered Tissue No -Bleeding Controlled with Pressure -Treatment Response Procedure Tolerated Well -Debridement - Subq, 1st 20sq cm No #4 sacral -Time 09:53 09:56 -Correct Patient Yes Yes -Correct Side, Site, Position Yes Yes -Correct Procedure Yes Yes -Procedure Performed Yes Yes -Type of Procedure Debridement Debridement -Clinical Debridement Subcutaneous Subcutaneous -Tissue Removed Subcutaneous Subcutaneous -Post Debridement (cm) - Length 1.2 1 -Post Debridement (cm) - Width 0.5 0.6 -Post Debridement (cm) - Depth 0.2 0.1 -Total Square (Post) (cm) 0.60 0.6 -Area of Debridement (cm) - Length 1.2 1 -Area of Debridement (cm) - Width 0.5 0.6 -Total Square (Area) (cm) 0.60 0.6 -Tunneling No No -Undermining/Tunneling No No -Circular Undermining No No -Wound/Ulcer Outcome Not Healed Not Healed -Ulcer Cleansing Rinsed/ Irrigated with Saline -Foul Odor after Cleansing No No -Bioengineered Tissue No -Topical Lidocaine (%) 4 -Bleeding Controlled with Pressure Pressure -Treatment Response Procedure Procedure Tolerated Well Tolerated Well -Offloading No -Debridement - Subq, 1st 20sq cm No Yes #3 mid back -Time 09:51 09:58 -Correct Patient Yes Yes -Correct Side, Site, Position Yes Yes -Correct Procedure Yes Yes -Procedure Performed Yes Yes -Type of Procedure Debridement Debridement -Clinical Debridement Subcutaneous Subcutaneous -Tissue Removed Subcutaneous Subcutaneous -Post Debridement (cm) - Length 1.4 1.5 -Post Debridement (cm) - Width 1.2 0.7 -Post Debridement (cm) - Depth 0.2 0.2 -Total Square (Post) (cm) 1.68 1.05 -Area of Debridement (cm) - Length 1.4 1.5 -Area of Debridement (cm) - Width 1.2 0.7 -Total Square (Area) (cm) 1.68 1.05 -Tunneling No No -Undermining/Tunneling No No -Circular Undermining No No -Wound/Ulcer Outcome Not Healed Not Healed -Ulcer Cleansing Rinsed/ Irrigated with Saline -Foul Odor after Cleansing No -Bioengineered Tissue No -Topical Lidocaine (%) 4 -Bleeding Controlled with Pressure Pressure -Treatment Response Procedure Procedure Tolerated Well Tolerated Well -Debridement - Subq, 1st 20sq cm Yes Yes -Debridement, SubQ, ea addt'l 20sq cm 1 or part thereof Pain Scale: 0-10 Numeric Is Patient Pain Free? Yes Yes - Nurse 3 - General Ulcer D/C NN Start: 04/21/24 09:28 Freq: Status: Active Protocol: Activity Type Activity Date Activity User E-sign Co-sign Detail Recorded Client Recorded Date Recorded By Document 04/28/24 10:18 CP [id number] 04/28/24 10:20 CP 04/28/24 10:18 Wound Care Center Nurse 3 #4 sacral -Ulcer Cleansing Rinsed/ Irrigated with Saline -Foul Odor after Cleansing No -Primary Dressing Applied Aquacel Extra -Primary Dressing Covered/Secured with Dry Gauze, Secured with Tape -Aquacel Extra 1 #3 mid back -Ulcer Cleansing Rinsed/ Irrigated with Saline -Foul Odor after Cleansing No -Primary Dressing Applied Aquacel Extra -Primary Dressing Covered/Secured with Dry Gauze, Secured with Tape -Other Covering adaptic -Aquacel Extra 1 Treatment Response Procedure Tolerated Well Pain Scale: 0-10 Numeric Is Patient Pain Free? Yes WC - Visit Discharge Discharge Condition Stable Ambulatory Status Wheelchair Transportation Private Auto Clinical Summary of Care Provided Yes Facility Type Home Health Orders Sent Yes Additional Wound Wound debrided: Sacral area Wound Grade/Stage: Decubitus ulcer stage II Type of Debridement: Excisional debridement Anesthesia Used: 5% Lidocaine Gel Depth: Down to and including healthy tissue Percentage of wound debrided: 100 Instrument Used: 5mm curette Tissue Removed: Fibrin Severity: Fat Layer Exposed Amount of bleeding with debridement: Mild Bleeding Controlled with: Compression and gauze Patient tolerated procedure: Patient tolerated procedure well Assessment/Plan Assessment/Plan (1) Decubitus ulcer of sacral area: CODE(S): L89.159 - Pressure ulcer of sacral region, unspecified stage QUALIFIERS: Pressure injury stage: stage 2 Qualified Code(s): L89.152 - Pressure ulcer of sacral region, stage 2 PLAN: Wash area with antibacterial soap such as Dial and then apply Aquacel extra moistened with Adaptic over top and a foam dressing or gauze dressing every day Follow-up 2 week (2) Decubitus ulcer of back, stage 2: CODE(S): L89.102 - Pressure ulcer of unspecified part of back, stage 2 PLAN: Wash mid back area with antibacterial soap and water and apply Aquacel extra to wound base moistened cover with Adaptic and foam dressing every day Follow-up in 2 week (3) Localized swelling of both lower legs: CODE(S): R22.43 - Localized swelling, mass and lump, lower limb, bilateral PLAN: Apply single-layer Tubigrip's to legs (4) Traumatic open wound of right lower leg: CODE(S): S81.801A - Unspecified open wound, right lower leg, initial encounter QUALIFIERS: Encounter type: subsequent encounter Qualified Code(s): S81.801D - Unspecified open wound, right lower leg, subsequent encounter PLAN: Resolved
== END 2024-05-01 23:59 | disposition home or self-care (01) ==
LOC: WC 09:30
PROVIDERS: PCP Family Medicine; Referring Provider Registered Nurse; Visit Provider Nurse Practitioner
DX: L89.152 Pressure ulcer of sacral region, stage 2 (principal); L89.102 Pressure ulcer of unspecified part of back, stage 2; E11.9 Type 2 diabetes mellitus without complications; S81.801A Unspecified open wound, right lower leg, initial encounter; X58.XXXA Exposure to other specified factors, initial encounter; M41.9 Scoliosis, unspecified; M80.0 Age-related osteoporosis with current pathological fracture; M79.89 Other specified soft tissue disorders; Z79.82 Long term (current) use of aspirin; Z79.85 Long-term (current) use of injectable non-insulin antidiabetic drugs; Z79.899 Other long term (current) drug therapy
CPT/HCPCS: 11042; 11045

== ENCOUNTER 2024-05-19 08:30 | Outpatient (RCR) | payer MEDICARE, OTHER, SELFPAY ==
[2024-05-02 00:45] VITALS: BP 117/57; PULSE 88; RESP 18; TEMP 36.1; BMI 35.2
[2024-05-12 11:41] VITALS: BMI 35.2
--- NOTE | 2024-05-12 13:20 | PN.PCM_ITS ---
History of Present Illness Date of Service: 05/12/24 Chief Complaint: Genitourinary area and up and to the coccyx area also erythema History of Wound: 78-year-old white female with history of diabetes who is well-controlled at 5.7 A1c at her last checkup . She has developed a pathological of pelvic fracture from her osteoporosis. She is currently taking Prolia and calcium and vitamin D. She usually transports in a wheelchair but she does walk with a walker at home. Any kind of stress or movements or coughing or sneezing causes her a lot of incontinence. Therefore she develops areas on her buttocks on and off from scooting in the bed and laying on the couch all day. She also has an open area on her mid back actually is upper lumbar area. She suffers from scoliosis and I think it just rubs and she gets an open area which is open and positive depth. She also has a small superficial opening at her sacral area. In her bilateral buttocks are healed. Also fell in the bathroom or somewhere in his superficial skin tears on her right lower leg that she has had since Halloween. She was treated with an Unna boot and now she is on wet to dry dressings. Progress of Wound: The sacral wound will not hold the dressing so they have just been putting A&E ointment on it it still with healing it is smaller and flatter but still gets full of slough in it. The sacral base of her back wound is mid back is some still open it seems to had like a pus pocket I open that and it has little bit more depth this time but like her said it was not doing anything so I debrided more and hopefully the Aquacel extra will work better this time than this week. We will try using Bactroban to the buttocks and she can apply it every time she goes to the bathroom which is pretty often from what they say. Subjective Subjective and are agreeable to plan Objective Data Objective Data Again no change in the mid back wound but the buttocks still look good and the legs are still healed and her. Area is still sacral area is just doing better. Vital Signs: Vital Signs Temp Pulse Resp BP 96.9 F L 88 18 117/57 L 05/02/24 00:45 05/02/24 00:45 05/02/24 00:45 05/02/24 00:45 Weight: 157 lb Body Mass Index (BMI) 35.2 Physical Exam Const oriented x3 General Appearance: cooperative Exam Limitations: no limitations HEENT normocephalic Face and Sinus: normal facial exam External Ear: external ears normal Eyes PERRL General Eye: normal appearance of both eyes Neck General: normal visual inspection Resp normal respiratory effort Auscultation: clear to auscultation bilaterally Cardio regular rate and regular rhythm Palpation: normal PMI Rate: regular rate Rhythm: regular rhythm GI Palpation: soft and no hepatosplenomegaly external exam normal Narrative: Erythematous vaginal area into her rectal area and up on her coccyx Back/Spine Back/Spine Narrative: Open wound on the upper half of her lumbar near her spine open triangle from pressure and shearing Skin Skin Narrative: Bilateral buttocks wounds is just a healed scar. Does have an open area on her sacrum superficial stage stage II from shearing Buttocks cheeks and groin area are slightly erythematous from chronic incontinence of urine Wound Narrative: She has an open area on her lower lumbar area that is superficial open area about the size of a dime. She also has a another area on her sacral area that is small and open and superficial Neuro oriented x3 Psych Appearance: grossly normal Speech: normal speech Thought Content: normal thought content Judgement: judgement good Debridement Note Debridement Note Wound debrided: Lower lumbar decubitus ulcer Wound Grade/Stage: Stage II Type of Debridement: Excisional debridement Anesthesia Used: 5% Lidocaine Gel Depth: Down to and including healthy tissue Instrument Used: 5mm curette Tissue Removed: Fibrin some slough Severity: Fat Layer Exposed Amount of bleeding with debridement: None Bleeding Controlled with: Pressure Patient tolerated procedure: Patient tolerated procedure well Post-Debridement Measurements and Additional Note: Post-Debridement Measurements/Treatment WC - Nurse 1 - General Ulcer Assessment Start: 05/12/24 11:41 Freq: Status: Active Protocol: MIGUEL Activity Type Activity Date Activity User E-sign Co-sign Detail Recorded Client Recorded Date Recorded By Document 05/12/24 11:41 RB [id number] 05/12/24 11:47 RB 05/12/24 11:41 Height and Weight Body Mass Index (BMI) 35.2 BMI Classification Obese Pain Scale: 0-10 Numeric Is Patient Pain Free? Yes WC - Nurse 1 - General Ulcer Measurement Start: 05/12/24 11:41 Freq: Status: Active Protocol: Activity Type Activity Date Activity User E-sign Co-sign Detail Recorded Client Recorded Date Recorded By Document 05/12/24 11:41 RB [id number] 05/12/24 11:47 RB 05/12/24 11:41 Wound Center Nurse 1 #5 rt lat le cluster -Combined with other wound No -Current Size (cm) - Length 0.1 -Current Size (cm) - Width 0.1 -Current Size (cm) - Depth 0.1 -Total Square Cm 0.01 -Tunneling No -Undermining/Tunneling No -Circular Undermining No -Exudate Amt Medium -Exudate Type Serosanguineous -Wound Margin Distinct, Outline Attached -Granulation Amt Medium (34-66%) -Granulation Quality [place] -Slough/Fibrin Yes -Necrosis Amt Small (1-33%) -Necrotic Tissue Type Adherent Slough -Structure Exposed N/A -Texture (Janki-wound Skin Appearance) Localized Edema -Moisture (Janki-wound Skin Appearance) Assessed -Color (Janki-wound Skin Appearance) Assessed -Temperature (Janki-wound Skin No Abnormality Appearance) (Pt Warm) -Tenderness on Palpation (Janki-wound No Skin Appearance) -Ulcer Cleansing Rinsed/ Irrigated with Saline -Foul Odor after Cleansing No -Anesthetic Used 5% Lidocaine Gel #4 sacral -Combined with other wound No -Current Size (cm) - Length 0.4 -Current Size (cm) - Width 0.3 -Current Size (cm) - Depth 0.1 -Total Square Cm 0.12 -Tunneling No -Undermining/Tunneling No -Circular Undermining No -Exudate Amt Medium -Exudate Type Serosanguineous -Wound Margin Distinct, Outline Attached -Granulation Amt Medium (34-66%) -Granulation Quality [place] -Slough/Fibrin Yes -Necrosis Amt Medium (34-66%) -Necrotic Tissue Type Adherent Slough -Structure Exposed N/A -Texture (Janki-wound Skin Appearance) Assessed -Moisture (Janki-wound Skin Appearance) Assessed -Color (Janki-wound Skin Appearance) Assessed -Temperature (Janki-wound Skin No Abnormality Appearance) (Pt Warm) -Tenderness on Palpation (Janki-wound No Skin Appearance) -Ulcer Cleansing Wound Cleanser -Foul Odor after Cleansing No -Anesthetic Used 5% Lidocaine Gel #3 mid back -Combined with other wound No -Current Size (cm) - Length 1.1 -Current Size (cm) - Width 1.1 -Current Size (cm) - Depth 0.1 -Total Square Cm 1.21 -Tunneling No -Undermining/Tunneling No -Circular Undermining No -Exudate Amt Medium -Exudate Type Serosanguineous -Wound Margin Distinct, Outline Attached -Granulation Amt Medium (34-66%) -Granulation Quality [place] -Slough/Fibrin Yes -Necrosis Amt Medium (34-66%) -Necrotic Tissue Type Adherent Slough -Structure Exposed N/A -Texture (Janki-wound Skin Appearance) Assessed -Moisture (Janki-wound Skin Appearance) Assessed -Color (Janki-wound Skin Appearance) Assessed -Temperature (Janki-wound Skin No Abnormality Appearance) (Pt Warm) -Tenderness on Palpation (Janki-wound No Skin Appearance) -Ulcer Cleansing Wound Cleanser -Foul Odor after Cleansing No -Anesthetic Used 5% Lidocaine Gel Lower Limb Edema Present Yes Right Calf (cm) 43 Right Ankle (cm) 26.5 Left Calf (cm) 44.5 Left Ankle (cm) 28.5 WC - Nurse 2 - General Ulcer CM Notes Start: 05/12/24 11:41 Freq: Status: Active Protocol: Activity Type Activity Date Activity User E-sign Co-sign Detail Recorded Client Recorded Date Recorded By Document 05/12/24 11:56 [facility] [id number] 05/12/24 12:08 [facility] 05/12/24 11:56 Wound Center Nurse 2 #4 sacral -Time 11:57 -Correct Patient Yes -Correct Side, Site, Position Yes -Correct Procedure Yes -Procedure Performed Yes -Type of Procedure Debridement -Clinical Debridement Subcutaneous -Tissue Removed Subcutaneous -Post Debridement (cm) - Length 0.7 -Post Debridement (cm) - Width 0.4 -Post Debridement (cm) - Depth 0.2 -Total Square (Post) (cm) 0.28 -Area of Debridement (cm) - Length 0.7 -Area of Debridement (cm) - Width 0.4 -Total Square (Area) (cm) 0.28 -Tunneling No -Undermining/Tunneling No -Circular Undermining No -Wound/Ulcer Outcome Not Healed -Ulcer Cleansing Rinsed/ Irrigated with Saline -Foul Odor after Cleansing No -Bioengineered Tissue No -Bleeding Controlled with Pressure -Treatment Response Procedure Tolerated Well -Debridement - Subq, 1st 20sq cm Yes #3 mid back -Time 11:58 -Correct Patient Yes -Correct Side, Site, Position Yes -Correct Procedure Yes -Procedure Performed Yes -Type of Procedure Debridement -Clinical Debridement Muscle / Fascia -Tissue Removed Muscle,Fascia -Post Debridement (cm) - Length 1.5 -Post Debridement (cm) - Width 0.9 -Post Debridement (cm) - Depth 0.3 -Total Square (Post) (cm) 1.35 -Area of Debridement (cm) - Length 1.5 -Area of Debridement (cm) - Width 0.9 -Total Square (Area) (cm) 1.35 -Tunneling No -Undermining/Tunneling No -Circular Undermining No -Wound/Ulcer Outcome Not Healed -Ulcer Cleansing Rinsed/ Irrigated with Saline -Foul Odor after Cleansing No -Bioengineered Tissue No -Bleeding Controlled with Pressure -Treatment Response Procedure Tolerated Well -Debridement - Muscle / Fascia, 1st Yes 20sq cm Pain Scale: 0-10 Numeric Is Patient Pain Free? Yes - Nurse 3 - General Ulcer D/C NN Start: 05/12/24 11:41 Freq: Status: Active Protocol: Activity Type Activity Date Activity User E-sign Co-sign Detail Recorded Client Recorded Date Recorded By Document 05/12/24 12:14 DS [id number] 05/12/24 12:29 DS 05/12/24 12:14 Wound Care Center Nurse 3 #4 sacral -Ulcer Cleansing Rinsed/ Irrigated with Saline -Primary Dressing Applied Other -Other Dressing mupirocin -Primary Dressing Covered/Secured with Dry Gauze, Secured with Tape #3 mid back -Ulcer Cleansing Rinsed/ Irrigated with Saline -Primary Dressing Applied Aquacel AG 4x4, Mepilex Border -Other Dressing adatic -Aquacel AG 4x4 1 -Mepilex Border 1 bl legs -Compression Wrap [place] Wrap Pain Scale: 0-10 Numeric Is Patient Pain Free? Yes - Visit Discharge Discharge Condition Stable Ambulatory Status Wheelchair Transportation Private Auto Additional Wound Wound debrided: Sacral area Wound Grade/Stage: Decubitus ulcer stage II Type of Debridement: Excisional debridement Anesthesia Used: 5% Lidocaine Gel Depth: Down to and including healthy tissue Percentage of wound debrided: 100 Instrument Used: 5mm curette Tissue Removed: Fibrin Severity: Fat Layer Exposed Amount of bleeding with debridement: Mild Bleeding Controlled with: Compression and gauze Patient tolerated procedure: Patient tolerated procedure well Assessment/Plan Assessment/Plan (1) Decubitus ulcer of sacral area: CODE(S): L89.159 - Pressure ulcer of sacral region, unspecified stage QUALIFIERS: Pressure injury stage: stage 2 Qualified Code(s): L89.152 - Pressure ulcer of sacral region, stage 2 PLAN: Wash area with antibacterial soap such as Dial and then apply just keep applying the Bactroban 4 times a day as needed every time she goes to the bathr oom to the open area Follow-up 1 week (2) Decubitus ulcer of back, stage 2: CODE(S): L89.102 - Pressure ulcer of unspecified part of back, stage 2 PLAN: Wash mid back area with antibacterial soap and water and apply Aquacel extra to wound base moistened cover with Adaptic and foam dressing every day Follow-up in 1 week (3) Localized swelling of both lower legs: CODE(S): R22.43 - Localized swelling, mass and lump, lower limb, bilateral PLAN: Apply single-layer Tubigrip's to legs (4) Traumatic open wound of right lower leg: CODE(S): S81.801A - Unspecified open wound, right lower leg, initial encounter QUALIFIERS: Encounter type: subsequent encounter Qualified Code(s): S81.801D - Unspecified open wound, right lower leg, subsequent encounter PLAN: Resolved
[2024-05-19 08:42] VITALS: BP 127/61; PULSE 87; RESP 16; TEMP 36.2; BMI 35.2
--- NOTE | 2024-05-19 09:57 | PN.PCM_ITS ---
History of Present Illness Date of Service: 05/19/24 Chief Complaint: Genitourinary area and up and to the coccyx area also erythema History of Wound: 78-year-old white female with history of diabetes who is well-controlled at 5.7 A1c at her last checkup . She has developed a pathological of pelvic fracture from her osteoporosis. She is currently taking Prolia and calcium and vitamin D. She usually transports in a wheelchair but she does walk with a walker at home. Any kind of stress or movements or coughing or sneezing causes her a lot of incontinence. Therefore she develops areas on her buttocks on and off from scooting in the bed and laying on the couch all day. She also has an open area on her mid back actually is upper lumbar area. She suffers from scoliosis and I think it just rubs and she gets an open area which is open and positive depth. She also has a small superficial opening at her sacral area. In her bilateral buttocks are healed. Also fell in the bathroom or somewhere in his superficial skin tears on her right lower leg that she has had since Halloween. She was treated with an Unna boot and now she is on wet to dry dressings. Progress of Wound: Mid back wound is still got a lot of either slough and has some open area that is new skin. We will continue using the Aquacel extra with Adaptic. Measurements are smaller The sacral area in between her vagina and her rectum and there are area we had her using Bactroban but she used it all up in 1 week because she is having so many bowel movements her insurance will not pay for anymore so I suggested they just use A&E ointment at much as she wants that is fine it is healing it is much smaller than what it was no slough is apparent looks very clean she states it still hurts but. Her left leg we clustered her seeping skin and she is got couple holes that are open she is got clear fluid she is got like pitting edema on the left leg and we will wrap her leg and ABDs and Claudy and then double layer Tubigrip with a Bairon wrap over top every day Looking at her labs she has got anemia going on and she has an appointment with GI coming up I told him she needs a colonoscopy and endoscopy. She also has an elevated PTH which I usually do an MRI she needs to see her interlocking machine operator again and get that done and get on medication for her low calcium which is all part of the parathyroid. We will start her on Sadi twice a day for her malnutrition Subjective Subjective They have many questions but they are agreeable with the plan so far Objective Data Objective Data As stated above all her wounds are much smaller she just has this reoccurring left lower leg edema that is so bad that it is seeping out of her skin fluid we will try skinning her leg down by using ABD pads wrapped with Claudy and them double layer Tubigrip with an Bairon wrap over top and have her follow-up in a week or 2 On the sacral she can just use A&E ointment every time she goes to the bathroom and the lower back is measuring smaller but it is still there it still got depth and continue using the Aquacel extra with the Adaptic over top dressing. We also added in some Sadi for her malnutrition because that makes her a poor he wound healer without help so we will try that for a while and see if that makes a difference. Vital Signs: Vital Signs Temp Pulse Resp BP O2 Del Method 97.2 F L 87 16 127/61 H Room Air 05/19/24 08:42 05/19/24 08:42 05/19/24 08:42 05/19/24 08:42 05/19/24 08:42 Oxygen Delivery Method Room Air Weight: 157 lb Body Mass Index (BMI) 35.2 Lab / Micro Data Attestation: I reviewed the patient's lab results. Lab results narrative: We discussed at length her hemoglobin problem and her pituitary problem and she probably needs an MRI done she needs to follow-up with her interlocking machine operator again Most definitely she needs to go see her GI and see if where the blood is going because she is losing blood she says her stools are gregorio and that needs to be investigated. Physical Exam Const oriented x3 General Appearance: cooperative Exam Limitations: no limitations HEENT normocephalic Face and Sinus: normal facial exam External Ear: external ears normal Eyes PERRL General Eye: normal appearance of both eyes Neck General: normal visual inspection Resp normal respiratory effort Auscultation: clear to auscultation bilaterally Cardio regular rate and regular rhythm Palpation: normal PMI Rate: regular rate Rhythm: regular rhythm GI Palpation: soft and no hepatosplenomegaly external exam normal Narrative: Erythematous vaginal area into her rectal area and up on her coccyx Back/Spine Back/Spine Narrative: Open wound on the upper half of her lumbar near her spine open triangle from pressure and shearing Skin Skin Narrative: Bilateral buttocks wounds is just a healed scar. Does have an open area on her sacrum superficial stage stage II from shearing Buttocks cheeks and groin area are slightly erythematous from chronic incontinence of urine Wound Narrative: She has an open area on her lower lumbar area that is superficial open area about the size of a dime. She also has a another area on her sacral area that is small and open and superficial Neuro oriented x3 Psych Appearance: grossly normal Speech: normal speech Thought Content: normal thought content Judgement: judgement good Debridement Note Debridement Note Wound debrided: Lower lumbar decubitus ulcer Wound Grade/Stage: Stage II Type of Debridement: Excisional debridement Anesthesia Used: 5% Lidocaine Gel Depth: Down to and including healthy tissue Instrument Used: 5mm curette Tissue Removed: Fibrin some slough Severity: Fat Layer Exposed Amount of bleeding with debridement: None Bleeding Controlled with: Pressure Patient tolerated procedure: Patient tolerated procedure well Post-Debridement Measurements and Additional Note: Post-Debridement Measurements/Treatment - Nurse 1 - General Ulcer Assessment Start: 05/12/24 11:41 Freq: Status: Active Protocol: MIGUEL Activity Type Activity Date Activity User E-sign Co-sign Detail Recorded Client Recorded Date Recorded By Document 05/12/24 11:41 [id number] 05/12/24 11:47 RB Document 05/19/24 08:42 RB [id number] 05/19/24 08:50 RB 05/12/24 05/19/24 11:41 08:42 - Today's Visit Information Type of service Follow-up Visit (Physician/SENIOR PRODUCT DEVELOPMENT SCIENTIST ) Arrival Mode Wheelchair Transfer Assistance Manual Transfer Assist (Other) 1 Patient Identification Verified (Name & Yes ) Safety Precautions Fall Prevention Height and Weight Body Mass Index (BMI) 35.2 35.2 BMI Classification Obese Obese Vital Signs Temperature (97.8 F-99.1 F) 97.2 F L Temperature Source Temporal Pulse Rate (60-100) 87 Pulse Location Monitor Respiratory Rate (12-18) 16 Respiratory rate source Observation Oxygen Delivery Method Room Air Blood Pressure (90/60-120/80) 127/61 H Blood Pressure Mean (mm Hg) 83 Source Monitor Position Supine Blood Pressure Location Right Arm History Since Last Visit- (Skip if this is Patient's initial visit) Have you changed medications since your Yes last visit? Any new allergies or adverse reactions No Had a fall/change in ADL's that may No increase risk of falls Signs or symptoms of abuse and/or No neglect since last visit Have you been in the hospital since your No last visit? Has dressing in place as prescribed Yes Has compression in place as prescribed N/A Has offloadiing in place as prescribed N/A Experienced any changes in pain level or No management Pain Scale: 0-10 Numeric Is Patient Pain Free? Yes Yes WC - Nurse 1 - General Ulcer Measurement Start: 05/12/24 11:41 Freq: Status: Active Protocol: Activity Type Activity Date Activity User E-sign Co-sign Detail Recorded Client Recorded Date Recorded By Document 05/12/24 11:41 RB [id number] 05/12/24 11:47 RB Document 05/19/24 08:42 RB [id number] 05/19/24 08:50 RB 05/12/24 05/19/24 11:41 08:42 Wound Center Nurse 1 #5 rt lat le cluster -Combined with other wound No -Current Size (cm) - Length 0.1 -Current Size (cm) - Width 0.1 -Current Size (cm) - Depth 0.1 -Total Square Cm 0.01 -Tunneling No -Undermining/Tunneling No -Circular Undermining No -Exudate Amt Medium -Exudate Type Serosanguineous -Wound Margin Distinct, Outline Attached -Granulation Amt Medium (34-66%) -Granulation Quality [place] -Slough/Fibrin Yes -Necrosis Amt Small (1-33%) -Necrotic Tissue Type Adherent Slough -Structure Exposed N/A -Texture (Janki-wound Skin Appearance) Localized Edema -Moisture (Janki-wound Skin Appearance) Assessed -Color (Janki-wound Skin Appearance) Assessed -Temperature (Janki-wound Skin No Abnormality Appearance) (Pt Warm) -Tenderness on Palpation (Janki-wound No Skin Appearance) -Ulcer Cleansing Rinsed/ Irrigated with Saline -Foul Odor after Cleansing No -Anesthetic Used 5% Lidocaine Gel #4 sacral -Combined with other wound No -Current Size (cm) - Length 0.4 0.1 -Current Size (cm) - Width 0.3 0.1 -Current Size (cm) - Depth 0.1 0.1 -Total Square Cm 0.12 0.01 -Photo Taken Yes -Epithelialization Large 67-100% -Tunneling No -Undermining/Tunneling No -Circular Undermining No -Exudate Amt Medium -Exudate Type Serosanguineous -Wound Margin Distinct, Outline Attached -Granulation Amt Medium (34-66%) -Granulation Quality [place] -Slough/Fibrin Yes -Necrosis Amt Medium (34-66%) -Necrotic Tissue Type Adherent Slough -Structure Exposed N/A -Texture (Janki-wound Skin Appearance) Assessed -Moisture (Janki-wound Skin Appearance) Assessed -Color (Janki-wound Skin Appearance) Assessed -Temperature (Janki-wound Skin No Abnormality Appearance) (Pt Warm) -Tenderness on Palpation (Janki-wound No Skin Appearance) -Ulcer Cleansing Wound Cleanser -Foul Odor after Cleansing No -Anesthetic Used 5% Lidocaine Gel #3 mid back -Combined with other wound No -Current Size (cm) - Length 1.1 1.3 -Current Size (cm) - Width 1.1 1.4 -Current Size (cm) - Depth 0.1 0.3 -Total Square Cm 1.21 1.82 -Tunneling No -Undermining/Tunneling No -Circular Undermining No -Exudate Amt Medium -Exudate Type Serosanguineous -Wound Margin Distinct, Flat & Intact Outline Attached -Granulation Amt Medium (34-66%) Small (1-33%) -Granulation Quality Idalou Idalou -Slough/Fibrin Yes -Necrosis Amt Medium (34-66%) Large (67-100%) -Necrotic Tissue Type Adherent Slough Adherent Slough -Structure Exposed N/A -Texture (Janki-wound Skin Appearance) Assessed -Moisture (Janki-wound Skin Appearance) Assessed No Abnormality -Color (Janki-wound Skin Appearance) Assessed No Abnormality -Temperature (Janki-wound Skin No Abnormality No Abnormality Appearance) (Pt Warm) (Pt Warm) -Tenderness on Palpation (Janki-wound No No Skin Appearance) -Ulcer Cleansing Wound Cleanser Rinsed/ Irrigated with Saline -Foul Odor after Cleansing No -Anesthetic Used 5% Lidocaine 5% Lidocaine Gel Gel Lower Limb Edema Present Yes Right Calf (cm) 43 42 Right Ankle (cm) 26.5 23.2 Left Calf (cm) 44.5 43 Left Ankle (cm) 28.5 24.3 - Nurse 2 - General Ulcer CM Notes Start: 05/12/24 11:41 Freq: Status: Active Protocol: Activity Type Activity Date Activity User E-sign Co-sign Detail Recorded Client Recorded Date Recorded By Document 05/12/24 11:56 [facility] [id number] 05/12/24 12:08 [facility] Document 05/19/24 08:59 [facility] [id number] 05/19/24 09:28 [facility] 05/12/24 05/19/24 11:56 08:59 Wound Center Nurse 2 #6- L LOWER MEDIAL LEG CLUSTER -Time 09:10 -Correct Patient Yes -Correct Side, Site, Position Yes -Correct Procedure Yes -Procedure Performed Yes -Type of Procedure Debridement -Clinical Debridement Epidermis / Dermis -Tissue Removed Epidermis, Dermis -Post Debridement (cm) - Length 15 -Post Debridement (cm) - Width 11 -Post Debridement (cm) - Depth 0.1 -Total Square (Post) (cm) 165 -Area of Debridement (cm) - Length 15 -Area of Debridement (cm) - Width 11 -Total Square (Area) (cm) 165 -Tunneling No -Undermining/Tunneling No -Circular Undermining No -Wound/Ulcer Outcome Not Healed -Ulcer Cleansing Rinsed/ Irrigated with Saline -Foul Odor after Cleansing No -Bioengineered Tissue No -Bleeding Controlled with Pressure -Treatment Response Procedure Tolerated Well -Debridement - Open, 1st 20sq cm Yes -Debridement, Open, ea addt'l 20sq cm 8 or part thereof #4 sacral -Time 11:57 09:18 -Correct Patient Yes Yes -Correct Side, Site, Position Yes Yes -Correct Procedure Yes Yes -Procedure Performed Yes Yes -Type of Procedure Debridement Debridement -Clinical Debridement Subcutaneous Subcutaneous -Tissue Removed Subcutaneous Subcutaneous -Post Debridement (cm) - Length 0.7 0.8 -Post Debridement (cm) - Width 0.4 0.3 -Post Debridement (cm) - Depth 0.2 0.1 -Total Square (Post) (cm) 0.28 0.24 -Area of Debridement (cm) - Length 0.7 0.8 -Area of Debridement (cm) - Width 0.4 0.3 -Total Square (Area) (cm) 0.28 0.24 -Tunneling No No -Undermining/Tunneling No No -Circular Undermining No No -Wound/Ulcer Outcome Not Healed Not Healed -Ulcer Cleansing Rinsed/ Rinsed/ Irrigated with Irrigated with Saline Saline -Foul Odor after Cleansing No No -Bioengineered Tissue No No -Bleeding Controlled with Pressure Pressure -Treatment Response Procedure Procedure Tolerated Well Tolerated Well -Debridement - Subq, 1st 20sq cm Yes No #3 mid back -Time 11:58 09:20 -Correct Patient Yes Yes -Correct Side, Site, Position Yes Yes -Correct Procedure Yes Yes -Procedure Performed Yes Yes -Type of Procedure Debridement Debridement -Clinical Debridement Muscle / Fascia Subcutaneous -Tissue Removed Muscle,Fascia Subcutaneous -Post Debridement (cm) - Length 1.5 1.4 -Post Debridement (cm) - Width 0.9 1.4 -Post Debridement (cm) - Depth 0.3 0.3 -Total Square (Post) (cm) 1.35 1.96 -Area of Debridement (cm) - Length 1.5 1.4 -Area of Debridement (cm) - Width 0.9 1.4 -Total Square (Area) (cm) 1.35 1.96 -Tunneling No No -Undermining/Tunneling No No -Circular Undermining No No -Wound/Ulcer Outcome Not Healed Not Healed -Ulcer Cleansing Rinsed/ Rinsed/ Irrigated with Irrigated with Saline Saline -Foul Odor after Cleansing No No -Bioengineered Tissue No No -Bleeding Controlled with Pressure Pressure -Treatment Response Procedure Procedure Tolerated Well Tolerated Well -Debridement - Subq, 1st 20sq cm Yes -Debridement - Muscle / Fascia, 1st Yes 20sq cm Pain Scale: 0-10 Numeric Is Patient Pain Free? Yes Yes - Nurse 3 - General Ulcer D/C NN Start: 05/12/24 11:41 Freq: Status: Active Protocol: Activity Type Activity Date Activity User E-sign Co-sign Detail Recorded Client Recorded Date Recorded By Document 05/12/24 12:14 DS [id number] 05/12/24 12:29 DS 05/12/24 12:14 Wound Care Center Nurse 3 #4 sacral -Ulcer Cleansing Rinsed/ Irrigated with Saline -Primary Dressing Applied Other -Other Dressing mupirocin -Primary Dressing Covered/Secured with Dry Gauze, Secured with Tape #3 mid back -Ulcer Cleansing Rinsed/ Irrigated with Saline -Primary Dressing Applied Aquacel AG 4x4, Mepilex Border -Other Dressing adatic -Aquacel AG 4x4 1 -Mepilex Border 1 bl legs -Compression Wrap Bairon Wrap Pain Scale: 0-10 Numeric Is Patient Pain Free? Yes WC - Visit Discharge Discharge Condition Stable Ambulatory Status Wheelchair Transportation Private Auto Additional Wound Wound debrided: Sacral area Wound Grade/Stage: Decubitus ulcer stage II Type of Debridement: Excisional debridement Anesthesia Used: 5% Lidocaine Gel Depth: Down to and including healthy tissue Percentage of wound debrided: 100 Instrument Used: 5mm curette Tissue Removed: Fibrin Severity: Fat Layer Exposed Amount of bleeding with debridement: Mild Bleeding Controlled with: Compression and gauze Patient tolerated procedure: Patient tolerated procedure well Additional Wound Wound debrided: Left lower leg selective debridement Laterality: Left Type of Debridement: Selective debridement Anesthesia Used: 5% Lidocaine Gel Depth: Down to and including healthy tissue Percentage of wound debrided: 100 Instrument Used: 3mm curette Severity: Limited To Skin Breakdown Amount of bleeding with debridement: None Bleeding Controlled with: Pressure Patient tolerated procedure: Patient tolerated procedure well Assessment/Plan Assessment/Plan (1) Decubitus ulcer of sacral area: CODE(S): L89.159 - Pressure ulcer of sacral region, unspecified stage QUALIFIERS: Pressure injury stage: stage 2 Qualified Code(s): L89.152 - Pressure ulcer of sacral region, stage 2 PLAN: Wash area with antibacterial soap such as Dial and then apply just keep applying the Bactroban 4 times a day as needed or A&E ointment every time she goes to the bathroom to the open area Follow-up 3 week (2) Decubitus ulcer of back, stage 2: CODE(S): L89.102 - Pressure ulcer of unspecified part of back, stage 2 PLAN: Wash mid back area with antibacterial soap and water and apply Aquacel extra to wound base moistened cover with Adaptic and foam dressing every day Follow-up in 3 week (3) Localized swelling of both lower legs: CODE(S): R22.43 - Localized swelling, mass and lump, lower limb, bilateral PLAN: Apply ABD pads Claudy then double layer Tubigrip with Bairon wrap over top every day left leg (4) Traumatic open wound of right lower leg: CODE(S): S81.801A - Unspecified open wound, right lower leg, initial encounter QUALIFIERS: Encounter type: subsequent encounter Qualified Code(s): S81.801D - Unspecified open wound, right lower leg, subsequent encounter PLAN: Resolved
--- NOTE | 2024-05-20 09:20 | WC ---
PHOTO 05/19/24 SACRAL
== END 2024-06-01 23:59 | disposition home or self-care (01) ==
LOC: WC 08:30
PROVIDERS: PCP Family Medicine; Referring Provider Registered Nurse; Visit Provider Nurse Practitioner
DX: L89.152 Pressure ulcer of sacral region, stage 2 (principal); L89.102 Pressure ulcer of unspecified part of back, stage 2; E11.9 Type 2 diabetes mellitus without complications; S81.801A Unspecified open wound, right lower leg, initial encounter; M41.9 Scoliosis, unspecified; R32 Unspecified urinary incontinence; M79.89 Other specified soft tissue disorders
CPT/HCPCS: 11042; 11043; 97597; 97598

== ENCOUNTER → 2024-05-19 | Outpatient (CLI) | payer MEDICARE, OTHER, SELFPAY ==
[2024-05-19 12:20] LABS: Absolute Neutrophil Count 4.6 X10^3/uL (2.0-7.7); Basophil# 0.04 X10^3/uL; Basophil% 0.6 % (0-1); Eosinophil# 0.16 X10^3/uL; Eosinophils% 2.3 % (0-5); Hematocrit 36.3 % (37-47); Hemoglobin 11.1 g/dL (12.0-15.0); Lymphocyte % 21.2 % (19-41); Mean Corp Hgb Conc 30.6 g/dL (32-36); Mean Corpuscular Hgb 32.3 pg (27.0-32.0); Mean Corpuscular Volume 105.5 fL (81-99); Mean Platelet Vol. 9.1 fl (6.2-12.0); Monocyte% 9.9 % (0-10); NRBC Flagged by Analyzer 0 % (0-5); Neutrophil # 4.64 X10^3/uL (2.7-7.7); Neutrophil % 65.7 % (47-70); Platelet Count 233 K/mm3 (150-450); RBC Distribution Width CV 14.8 % (11.6-14.6); RBC Distribution Width SD 57.2 fl (35.1-43.9); Red Blood Count 3.44 M/mm3 (4.2-5.4); White Blood Count 7.1 K/mm3 (4.4-11.0)
[2024-05-19 12:52] LABS: Ferritin 90 ng/mL (8-252); Iron 36 ug/dL (50-170); Iron Binding Capacity,Total 196 ug/dL (250-450)
== END | disposition home or self-care (01) ==
LOC: LAB 11:59
PROVIDERS: PCP Family Medicine; Referring Provider Nurse Practitioner Acute Care; Visit Provider Nurse Practitioner Acute Care
DX: D64.9 Anemia, unspecified (principal); R15.2 Fecal urgency; R15.9 Full incontinence of feces; R41.0 Disorientation, unspecified; R30.0 Dysuria
CPT/HCPCS: 36415; 82728; 83540; 83550; 85025

== ENCOUNTER → 2024-05-20 | Outpatient (CLI) | payer MEDICARE, OTHER, SELFPAY ==
[2024-05-20 11:21] LABS: Mucous, Urine 0 SEEN /hpf (<or=2+); Red Blood Cells-Urine 0 SEEN /hpf (0-5)
[2024-05-20 12:14] LABS: Color, Urine Yellow (Yellow); Glucose, Dipstick 250 mg/dl (Normal); Ketone-Dipstick Negative (Negative); Leukocyte Esterase-Dipstick 500 /ul (Negative); Nitrite-Dipstick Positive (Negative); Occult Blood-Urine Negative /ul (Negative); Protein-Dipstick Negative (Negative); Urine Bilirubin Dipstick Negative (Negative); Urine Clarity Sl. Cloudy (Clear); Urine Urobilinogen Normal (Normal)
[2024-05-20 12:22] LABS: Bacteria 1+ /hpf (None Seen); Squamous Epithelial Cells - UA 0-5 SEEN /hpf (5-10); White Blood Cells 10-25 SEEN /hpf (0-5)
[2024-05-23 03:06] LABS: Calprotectin, Stool 441 ug/g (0-120)
== END | disposition home or self-care (01) ==
PROVIDERS: PCP Family Medicine; Referring Provider Nurse Practitioner Acute Care; Visit Provider Nurse Practitioner Acute Care
DX: R15.9 Full incontinence of feces (principal); R15.2 Fecal urgency; R19.7 Diarrhea, unspecified; D64.9 Anemia, unspecified; N39.0 Urinary tract infection, site not specified; K58.9 Irritable bowel syndrome, unspecified
CPT/HCPCS: 81001; 83993; 87077; 87086; 87088; 87177; 87186; 87209; 87493; 87506

== ENCOUNTER → 2024-05-24 | Outpatient (CLI) | payer MEDICARE, OTHER, SELFPAY ==
[2024-05-24 15:41] LABS: ALB/GLOB Ratio 0.7 RATIO (0.9-2.4); AST(SGOT) 18 U/L (15-37); Alanine Aminotransfer ALT/SGPT 19 U/L (13-56); Albumin, Serum 2.3 g/dL (3.2-5.0); Alkaline Phosphatase 110 U/L (45-117); Anion Gap 4 (5-15); BUN 29 mg/dL (7-18); BUN/Creat Ratio 27.6 RATIO (10-20); Calcium,Total 8.6 mg/dL (8.5-10.1); Chloride 102 mmol/L (98-107); Creatinine, Serum 1.05 mg/dL (0.55-1.02); EST Glomerular Filtration Rate 54 mL/min (>60); Est Glom Filt Rate - Afr Amer 65 mL/min (>60); Globulin 3.1 g/dL (2.2-4.2); Glucose 101 mg/dL (74-106); Potassium 4.5 mmol/L (3.5-5.1); Protein, Total 5.4 g/dL (6.4-8.2); Sodium Level 138 mmol/L (136-145)
== END | disposition home or self-care (01) ==
PROVIDERS: PCP Family Medicine; Referring Provider Family Medicine; Visit Provider Family Medicine
DX: M79.89 Other specified soft tissue disorders (principal)
CPT/HCPCS: 36415; 80053

== ENCOUNTER → 2024-06-04 | Outpatient (CLI) | payer MEDICARE, OTHER, SELFPAY ==
[2024-06-04 17:50] LABS: Anion Gap 5 (5-15); BUN 43 mg/dL (7-18); BUN/Creat Ratio 32.8 RATIO (10-20); Calcium,Total 8.9 mg/dL (8.5-10.1); Chloride 103 mmol/L (98-107); Creatinine, Serum 1.31 mg/dL (0.55-1.02); EST Glomerular Filtration Rate 42 mL/min (>60); Est Glom Filt Rate - Afr Amer 51 mL/min (>60); Glucose 87 mg/dL (74-106); Potassium 4.6 mmol/L (3.5-5.1); Sodium Level 135 mmol/L (136-145)
[2024-06-04 17:59] LABS: Vitamin D,25 Hydroxy 76.6 ng/mL
[2024-06-04 18:02] LABS: PTHIN 23.2 pg/mL (18.4-80.1)
[2024-06-08 12:21] LABS: Albumin, Serum 2.5 g/dL (3.2-5.0)
== END | disposition home or self-care (01) ==
PROVIDERS: PCP Family Medicine; Referring Provider Nurse Practitioner Adult Health; Visit Provider Nurse Practitioner Adult Health
DX: E11.21 Type 2 diabetes mellitus with diabetic nephropathy (principal); E21.1 Secondary hyperparathyroidism, not elsewhere classified; M79.89 Other specified soft tissue disorders
CPT/HCPCS: 36415; 80048; 82040; 82306; 83970

== ENCOUNTER 2024-06-09 10:52 | Outpatient (RCR) | payer MEDICARE, OTHER, SELFPAY ==
[2024-06-02 00:44] VITALS: BP 117/57; PULSE 88; RESP 18; TEMP 36.1; BMI 35.2
[2024-06-09 11:17] VITALS: BP 116/59; PULSE 97; RESP 18; TEMP 36.4; BMI 35.2
--- NOTE | 2024-06-09 13:01 | PN.PCM_ITS ---
History of Present Illness Date of Service: 06/09/24 Chief Complaint: Sacral wound History of Wound: 78-year-old white female with history of diabetes who is well-controlled at 5.7 A1c at her last checkup . She has developed a pathological of pelvic fracture from her osteoporosis. She is currently taking Prolia and calcium and vitamin D. She usually transports in a wheelchair but she does walk with a walker at home. Any kind of stress or movements or coughing or sneezing causes her a lot of in continence. Therefore she develops areas on her buttocks on and off from scooting in the bed and laying on the couch all day. She also has an open area on her mid back actually is upper lumbar area. She suffers from scoliosis and I think it just rubs and she gets an open area which is open and positive depth. She also has a small deep opening closer to her lower back at her sacral area. The bilateral buttocks are healed. Also fell in the bathroom or somewhere in his superficial skin tears on her right lower leg that she has had since Halloween. She was treated with an Unna boot and now she is on wet to dry dressings. Progress of Wound: Again patient has not been seen since May 19, patient has improved her bilateral buttocks's are clear and there is no redness at all she looks very good they are planning on leaving next week Friday for [place] for 3 or 4 months. We will be transferring her care down in [place] she has family doctors down there they can refer her to wound centers. The sacral wound is still deep and there but it is measuring slightly smaller and the depth is about the same but it is clean and they are to continue using the Aquacel extra with Adaptic over top and a foam dressing. Subjective Subjective Patient has an appointment with the spinal surgeon Dr. Pacheco to see if he can let her go or give her another injection before she leaves for [place]. If all goes well then they will leave next Friday otherwise they will make another appointment with us. They are happy with outcomes and they are going to continue dressing changes we are going to give them the instructions to take along Objective Data Objective Data No sign of infection the sacral area looks like it is healing it looks better than it did last time still needs debridement of white connective tissue but it is still healing and it is coming out easier and she seems to be less tender when touched. Vital Signs: Vital Signs Temp Pulse Resp BP O2 Del Method 97.6 F L 97 18 116/59 L Room Air 06/09/24 11:17 06/09/24 11:17 06/09/24 11:17 06/09/24 11:17 06/09/24 11:17 Oxygen Delivery Method Room Air Weight: 157 lb Body Mass Index (BMI) 35.2 Looking at her nutritional level her previous her albumin levels are low and so she needs to drink her Sadi that we suggested they take with her while they are down in [place] She also shows low iron and will need to be on iron pills and supplement with iron foods that are high in iron She is also anemic and needs to follow-up with her anemia and take a supplement B12 would help her also. Lab / Micro Data Attestation: I reviewed the patient's lab results. Physical Exam Const oriented x3 General Appearance: cooperative Exam Limitations: no limitations HEENT normocephalic Face and Sinus: normal facial exam External Ear: external ears normal Eyes PERRL General Eye: normal appearance of both eyes Neck General: normal visual inspection Resp normal respiratory effort Auscultation: clear to auscultation bilaterally Cardio regular rate and regular rhythm Palpation: normal PMI Rate: regular rate Rhythm: regular rhythm GI Palpation: soft and no hepatosplenomegaly external exam normal Narrative: Erythematous vaginal area into her rectal area and up on her coccyx Back/Spine Back/Spine Narrative: Open wound on the upper half of her lumbar near her spine open triangle from pressure and shearing Skin Skin Narrative: Bilateral buttocks wounds is just a healed scar. Does have an open area on her sacrum superficial stage stage II from shearing Buttocks cheeks and groin area are slightly erythematous from chronic incontinence of urine Wound Narrative: She has an open area on her lower lumbar area that is superficial open area about the size of a dime. She also has a another area on her sacral area that is small and open and superficial Neuro oriented x3 Psych Appearance: grossly normal Speech: normal speech Thought Content: normal thought content Judgement: judgement good Debridement Note Debridement Note Wound debrided: Lower lumbar decubitus ulcer Wound Grade/Stage: Stage II Type of Debridement: Excisional debridement Anesthesia Used: 5% Lidocaine Gel Depth: Down to and including healthy tissue Instrument Used: 5mm curette Tissue Removed: Fibrin some slough Severity: Fat Layer Exposed Amount of bleeding with debridement: None Bleeding Controlled with: Pressure Patient tolerated procedure: Patient tolerated procedure well Post-Debridement Measurements and Additional Note: Post-Debridement Measurements/Treatment - Nurse 1 - General Ulcer Assessment Start: 06/09/24 11:17 Freq: Status: Active Protocol: MIGUEL Activity Type Activity Date Activity User E-sign Co-sign Detail Recorded Client Recorded Date Recorded By Document 06/09/24 11:17 DC [id number] 06/09/24 11:30 DC 06/09/24 11:17 WC - Today's Visit Information Type of service 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-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 ) Arrival Mode Walker Accompanied by Patient Identification Verified (Name & Yes ) Safety Precautions Fall Prevention Height and Weight Body Mass Index (BMI) 35.2 BMI Classification Obese Vital Signs Temperature (97.8 F-99.1 F) 97.6 F L Temperature Source Temporal Pulse Rate (60-100) 97 Pulse Location Monitor Respiratory Rate (12-18) 18 Respiratory rate source Observation Oxygen Delivery Method Room Air Blood Pressure (90/60-120/80) 116/59 L Blood Pressure Mean (mm Hg) 78 Source Monitor Position Sitting Blood Pressure Location Right Arm History Since Last Visit- (Skip if this is Patient's initial visit) Has dressing in place as prescribed Yes Has compression in place as prescribed Yes Has offloadiing in place as prescribed Yes Experienced any changes in pain level or Yes management Left Footwear Regular Shoe Right Footwear Regular Shoe Pain Scale: 0-10 Numeric Is Patient Pain Free? Yes - Nurse 1 - General Ulcer Measurement Start: 06/09/24 11:17 Freq: Status: Active Protocol: Activity Type Activity Date Activity User E-sign Co-sign Detail Recorded Client Recorded Date Recorded By Document 06/09/24 11:17 DC [id number] 06/09/24 11:30 DC 06/09/24 11:17 Wound Center Nurse 1 #4 sacral -Current Size (cm) - Length 0.1 -Current Size (cm) - Width 0.1 -Current Size (cm) - Depth 0.1 -Total Square Cm 0.01 #3 mid back -Current Size (cm) - Length 1.5 -Current Size (cm) - Width 1.3 -Current Size (cm) - Depth 0.2 -Total Square Cm 1.95 -Exudate Amt Small -Exudate Type Serosanguineous -Wound Margin Thickened & Rolled Under -Granulation Amt Medium (34-66%) -Granulation Quality Pale,Silt -Necrosis Amt Medium (34-66%) -Necrotic Tissue Type Adherent Slough -Texture (Janki-wound Skin Appearance) Assessed -Moisture (Janki-wound Skin Appearance) Assessed -Color (Janki-wound Skin Appearance) Assessed -Temperature (Janki-wound Skin No Abnormality Appearance) (Pt Warm) -Tenderness on Palpation (Janki-wound No Skin Appearance) -Ulcer Cleansing Soap and Water -Foul Odor after Cleansing No -Anesthetic Used 5% Lidocaine Gel Lower Limb Edema Present NA WC - Nurse 2 - General Ulcer CM Notes Start: 06/09/24 11:17 Freq: Status: Active Protocol: Activity Type Activity Date Activity User E-sign Co-sign Detail Recorded Client Recorded Date Recorded By Document 06/09/24 11:38 [facility] [id number] 06/09/24 11:48 [facility] 06/09/24 11:38 Wound Center Nurse 2 #6- L LOWER MEDIAL LEG CLUSTER -Post Debridement (cm) - Length 0 -Post Debridement (cm) - Width 0 -Post Debridement (cm) - Depth 0 -Total Square (Post) (cm) 0 -Area of Debridement (cm) - Length 0 -Area of Debridement (cm) - Width 0 -Total Square (Area) (cm) 0 -Wound/Ulcer Outcome Healed- Epithelialized -Bleeding Controlled with NA #4 sacral -Time 11:38 -Post Debridement (cm) - Length 0 -Post Debridement (cm) - Width 0 -Post Debridement (cm) - Depth 0 -Total Square (Post) (cm) 0 -Area of Debridement (cm) - Length 0 -Area of Debridement (cm) - Width 0 -Total Square (Area) (cm) 0 -Wound/Ulcer Outcome Healed- Epithelialized -Bleeding Controlled with NA #3 mid back -Time 11:38 -Correct Patient Yes -Correct Side, Site, Position Yes -Correct Procedure Yes -Procedure Performed Yes -Type of Procedure Debridement -Clinical Debridement Subcutaneous -Tissue Removed Subcutaneous -Post Debridement (cm) - Length 1.4 -Post Debridement (cm) - Width 1.3 -Post Debridement (cm) - Depth 0.3 -Total Square (Post) (cm) 1.82 -Area of Debridement (cm) - Length 1.4 -Area of Debridement (cm) - Width 1.3 -Total Square (Area) (cm) 1.82 -Tunneling No -Undermining/Tunneling No -Circular Undermining No -Wound/Ulcer Outcome Not Healed -Ulcer Cleansing Rinsed/ Irrigated with Saline -Foul Odor after Cleansing No -Bioengineered Tissue No -Bleeding Controlled with Pressure -Treatment Response Procedure Tolerated Well -Debridement - Subq, 1st 20sq cm Yes Pain Scale: 0-10 Numeric Is Patient Pain Free? Yes - Nurse 3 - General Ulcer D/C NN Start: 06/09/24 11:17 Freq: Status: Active Protocol: Activity Type Activity Date Activity User E-sign Co-sign Detail Recorded Client Recorded Date Recorded By Document 06/09/24 11:57 DC [id number] 06/09/24 12:04 DC 06/09/24 11:57 Wound Care Center Nurse 3 #3 mid back -Primary Dressing Applied Aquacel Extra, Mepilex Border -Aquacel Extra 4 -Mepilex Border 4 bl legs -Compression Wrap Bairon Wrap -Tubular Bandage Single Layer -Size of Tubigrip Used Size E -Size E ($) 2 Pain Scale: 0-10 Numeric Is Patient Pain Free? Yes WC - Visit Discharge Discharge Condition Stable Ambulatory Status Ambulatory, Walker Transportation Private Auto Medication Reconcilliation completed & No provided to patient/care provider Clinical Summary of Care Provided Yes Additional Wound Wound debrided: Sacral area Wound Grade/Stage: Decubitus ulcer stage II Type of Debridement: Excisional debridement Anesthesia Used: 5% Lidocaine Gel Depth: Down to and including healthy tissue Percentage of wound debrided: 100 Instrument Used: 5mm curette Tissue Removed: Fibrin Severity: Fat Layer Exposed Amount of bleeding with debridement: Mild Bleeding Controlled with: Compression and gauze Patient tolerated procedure: Patient tolerated procedure well Additional Wound Wound debrided: Left lower leg selective debridement Laterality: Left Type of Debridement: Selective debridement Anesthesia Used: 5% Lidocaine Gel Depth: Down to and including healthy tissue Percentage of wound debrided: 100 Instrument Used: 3mm curette Severity: Limited To Skin Breakdown Amount of bleeding with debridement: None Bleeding Controlled with: Pressure Patient tolerated procedure: Patient tolerated procedure well Assessment/Plan Assessment/Plan (1) Decubitus ulcer of back, stage 2: CODE(S): L89.102 - Pressure ulcer of unspecified part of back, stage 2 PLAN: Wash mid back area with antibacterial soap and water and apply Aquacel extra to wound base moistened cover with Adaptic and foam dressing every day Transfer of care to her [place] doctors patient will be given instructions and paperwork to take along with her she should find a wound center down there to cover her. For the 4 months that she is going to be down there. She may return and follow-up as needed (2) Localized swelling of both lower legs: CODE(S): R22.43 - Localized swelling, mass and lump, lower limb, bilateral PLAN: Apply ABD pads Claudy then double layer Tubigrip with Bairon wrap over top every day left leg (3) Traumatic open wound of right lower leg: CODE(S): S81.801A - Unspecified open wound, right lower leg, initial e ncounter QUALIFIERS: Encounter type: subsequent encounter Qualified Code(s): S81.801D - Unspecified open wound, right lower leg, subsequent encounter PLAN: Resolved
== END 2024-06-30 13:16 | disposition home or self-care (01) ==
LOC: WC 10:52
PROVIDERS: PCP Family Medicine; Referring Provider Registered Nurse; Visit Provider Nurse Practitioner
DX: L89.152 Pressure ulcer of sacral region, stage 2 (principal); E11.9 Type 2 diabetes mellitus without complications; M41.9 Scoliosis, unspecified; M80.0 Age-related osteoporosis with current pathological fracture; N39.3 Stress incontinence (female) (male); Z79.82 Long term (current) use of aspirin; Z79.85 Long-term (current) use of injectable non-insulin antidiabetic drugs; Z79.899 Other long term (current) drug therapy
CPT/HCPCS: 11042

== ENCOUNTER → 2024-10-13 | Outpatient (CLI) | payer MEDICARE, OTHER, SELFPAY ==
[2024-10-13 16:44] LABS: Microalbumin,Random Urine < 12.0 mg/L (NO RANGE EST.)
[2024-10-13 16:54] LABS: ALB/GLOB Ratio 1.3 RATIO (0.9-2.4); AST(SGOT) 20 U/L (<=31); Alanine Aminotransfer ALT/SGPT 14 U/L (<=34); Albumin, Serum 3.3 g/dL (3.4-4.8); Alkaline Phosphatase 66 U/L (35-104); Anion Gap 10 (5-15); BUN 28 mg/dL (4-19); BUN/Creat Ratio 30.7 RATIO (10-20); Calcium,Total 9.1 mg/dL (7.6-11.0); Carbon Dioxide 25.2 mmol/L (21.0-32.0); Chloride 101 mmol/L (98-108); Creatinine, Serum 0.91 mg/dL (0.70-1.20); EST Glomerular Filtration Rate 65 (>60); Globulin 2.6 g/dL (2.2-4.2); Glucose 93 mg/dL (70-99); Potassium 4.1 mmol/L (3.3-5.1); Protein, Total 5.8 g/dL (5.9-8.4); Sodium Level 136 mmol/L (133-145)
[2024-10-13 16:57] LABS: PTHIN 29 pg/mL (11-61)
[2024-10-13 16:58] LABS: Vitamin D,25 Hydroxy 52.8 ng/mL (30-100)
[2024-10-13 17:24] LABS: Hemoglobin A1c 6.1 % (<=5.6)
== END | disposition home or self-care (01) ==
PROVIDERS: PCP Family Medicine; Referring Provider Internal Medicine Endocrinology, Diabetes & Metabolism; Visit Provider Internal Medicine Endocrinology, Diabetes & Metabolism
DX: E11.21 Type 2 diabetes mellitus with diabetic nephropathy (principal); E21.1 Secondary hyperparathyroidism, not elsewhere classified; E55.9 Vitamin D deficiency, unspecified
CPT/HCPCS: 36415; 80053; 82043; 82306; 83036; 83970

== ENCOUNTER 2024-10-14 06:00 | Day surgery (SDC) | payer MEDICARE, OTHER, SELFPAY ==
--- NOTE | 2024-10-12 12:22 | PAT.ANESEVAL ---
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 When Was Last Pacemaker Check QUESTION #4 FULL TEXT: You/Your Family Experience fever (hyperthermia) with Anesthesia Last Oral Intake Last Oral intake: Last Oral Intake NPO since Meds taken in AM with sips of water? Meds patient instructed to take am of surgery PONV PONV - decal decorator: PONV - decal decorator Female Yes 10/12/24 10:53 HX of Motion Sickness No 10/12/24 10:53 HX of N/V After Surgery No 10/12/24 10:53 Non-Smoker Yes 10/12/24 10:53 Duration of Surgery greater No 10/12/24 10:53 than 60 minutes Number of Risk Factors 2 10/12/24 10:53 PONV Score Moderate Risk 10/12/24 10:53 Height & Weight Height & Weight: Anesthesia: Height & Weight Height 4 ft 8 in 06/08/24 12:43 Respiratory Assessment Respiratory Assessment - decal decorator: Respiratory Tract Infection Hx - decal decorator Hx Respiratory Tract Infection No 10/12/24 10:53 STOP Sleep Apnea STOP Sleep Apnea - decal decorator: STOP Sleep Apnea - decal decorator Hx Hypertension Yes 10/12/24 10:53 Hx Sleep Apnea No 10/12/24 10:53 CPAP Yes: not used after gastric 12/06/21 14:48 bypass 2013 BIPAP No 12/06/21 14:48 Do you snore loudly (louder No 10/12/24 10:53 than talking or can be heard Do you often feel tired/ No 10/12/24 10:53 fatigued/ sleepy during daytime? Has anyone observed you stop No 10/12/24 10:53 breathing during sleep? STOP Results Negative 10/12/24 10:53 QUESTION #5 FULL TEXT : Do you snore loudly (louder than talking or can be heard through closed doors)? 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 Specify any problems Hx of Preganancy in last 3 No 10/12/24 10:53 Months Nurse Filling Out Transfusion [facility] 10/12/24 10:53 & Questions: Date: 10/12/24 10/12/24 10:53 Time: 11:09 10/12/24 10:53 Patient unable to answer at this time (ie. confused, unrespo /Reproduction History /Reproductive History - decal decorator: /Reproductive Hx- decal decorator Hx Now No 10/12/24 10:53 Gestational Age (in weeks): EDC: Hx Hx Para Hx Section SAB PFSH Medical History Presence of upper and lower permanent dental bridges Wears hearing aid Cancer Bruising History of renal disease Bladder disease Pulmonary embolism Gastric reflux History of echocardiogram Cardiology follow-up encounter Urge incontinence of urine Candidiasis of female genitalia Peritoneal free air Breast mass, right Nonrheumatic aortic (valve) stenosis Lower extremity edema Essential hypertension Wears glasses Post-menopausal Abrasion Walker as ambulation aid Easy bruising Back pain History of IBS Non-smoker History of pain when walking History of edema Mild cognitive impairment Low sodium levels Steroid-induced psychosis Cystocele Heel spur Vitamin deficiency Skin cancer GERD (gastroesophageal reflux disease) Osteoporosis Osteoarthritis Kidney stones Kidney disease IBS (irritable bowel syndrome) Gout Gallstones Breast lump Bone fracture UTI (urinary tract infection) Abnormal ultrasound of breast Skin lesion Constipation Diarrhea Arthritis History of back problems Diabetes History of change in bowel patterns Hiatal hernia Home Medications ?Medication ?Instructions ?Recorded ?Last Taken ?Type lactobacillus combination no.8 3 3,000 mmu cells PO DAILY 11/24/18 Unknown History billion cell capsule (Adult Probiotic) pantoprazole 40 mg tablet,delayed 40 mg PO DAILY 02/03/20 Unknown History release finerenone 10 mg tablet (Kerendia) 10 mg PO DAILY 04/30/22 Unknown History calcium citrate 400 mg PO DAILY 11/18/23 Unknown History gabapentin 300 mg capsule 300 mg PO TID 04/27/24 Unknown History semaglutide 0.25 mg or 0.5 mg (2 0.25 mg subcut QWEEK 04/27/24 10/04/24 History mg/3 mL) subcutaneous pen injector (Ozempic) bariatric bypass fusion 1 ea PO DAILY 05/19/24 Unknown History denosumab 60 mg/mL subcutaneous 60 mg subcut [id number] 05/19/24 Unknown History syringe (Prolia) melatonin 3 mg capsule 3 mg PO BID 05/19/24 Unknown History methylcellulose (laxative) 500 mg 1,000 mg PO BID 05/19/24 Unknown History tablet (Citrucel) oxycodone 7.5 mg tablet,oral ONLY 7.5 mg PO BID PRN pain 05/19/24 Unknown History (not for feeding tubes) mirabegron 25 mg tablet,extended 25 mg PO QDAY 06/08/24 Unknown History release 24 hr (Myrbetriq) carvedilol 25 mg tablet 6.25 mg PO BID 07/01/24 Unknown History furosemide 20 mg tablet (Lasix) 40 mg PO QAM 07/01/24 Unknown History apixaban 5 mg tablet (Eliquis) 5 mg PO BID 10/12/24 09/28/24 History losartan 100 mg tablet 100 mg PO QHS 10/12/24 Unknown History Allergy/AdvReac Type Severity Reaction Status Date / Time Corticosteroids AdvReac Severe Other Verified 10/12/24 10:51 (Glucocorticoids) NSAIDS (Non-Steroidal AdvReac Severe Other Verified 10/12/24 10:51 Anti-Inflamma Family History Grandfather Arthritis Colon cancer Liver disease Grandmother Arthritis Hypertension Anemia Mother Arthritis Osteoporosis Father Hypertension Arthritis Liver disease Sister Arthritis Surgical History S/P insertion of spinal cord stimulator History of left heart catheterization History of open reduction and internal fixation (ORIF) procedure History of cardiac catheterization (2009) Hx of spinal fusion Hx of surgical procedure Hx of surgical procedure Hx laparoscopic cholecystectomy Hx of hysterectomy Hx of colonoscopy History of bursectomy H/O laminectomy Hx of cataract surgery H/O gastric bypass S/P vaginopexy History of repair of rectocele history excision melanoma forehead History of bilateral knee replacement Social History Smoking Status: Never smoker alcohol intake: never substance use type: does not use caffeine: No what type of physical activity do you participate in: other details: PT for strength & balance corinne/hindu: Gnosticism seatbelt use: always Recommendation Anesthesia Recommendation Anesthesia recommendation: OPTIMIZED for anesthesia
[2024-10-14] VITALS (7 sets, daily range): BP systolic 107–146; BP diastolic 53–78; PULSE 62–85; RESP 16–18; TEMP 36.1–37; O2SAT 93–100; BMI 29.6
[2024-10-14] MEDS: Lactated Ringers 1,000 ML 15 ML IV (06:43)
--- NOTE | 2024-10-14 06:54 | PCM.HP.STD ---
[facility] - General General Date of Admission: 10/14/24 Date of Service: 10/14/24 Chief Complaint: diarrhea HPI Narrative 78y/o female presents for 1 month follow-up of diarrhea. She has reported at her last appointment that she was having up to 20+ BM daily. 05/20/2024 fecal calprotectin elevated 441. However, stool for C. diff was cancelled as lab reports the stool specimen was formed. - reports she has not been taking any Questran for 1-2 months - she reports stools can be a very little bit or a smear - then every 2-3 days she has a big ball of formed stool - denies any diarrhea since last seen - she has been taking Imodium the past month - taking 3 a day, 1 tablets after each meal - reports the Imodium has helped a lot with forming BM - gas and bloating - no worse with since starting the Imodium - she reports she is going to the bathroom and if she is passing 3-4 small stools in 1 sitting she counts this as 4 BM - reports she only goes to the bathroom 4x a day to pass stool - denies any watery stools - Citrucel 2 caplets with lunch daily - drinks 48h of Iced Tea daily - she is getting around at home with a walker - reports she has 3 pelvic fractures - rectal bleeding - BRB on tissue on occasion - hopes to leave for [place] tomorrow - I suspect the calprotectin was elevated secondary to contamination secondary to urine - she believes her last colonoscopy was 3-4 years ago and this was negative OV 05/19/2024 78y/o female presents for consultation with consultation with complaints of fecal incontinence with history of IBS-d, gastric bypass 2012, CCX 2013. She reports negative SIBO testing. She complains of watery diarrhea up to 20+ times a day for the past 2-3 weeks. She is experiencing urgency and incontinence. She completed ATB for UTI three weeks ago. Denies any abdominal pain, loss of appetite, bleeding or heartburn. She has noted a weight gain secondary to fluid retention. Labs completed 04/24/2024 reveal mild anemia with HGB 9.9. reports she has had an increase in confusion the past 24 hours and is concerned she has another UTI. She does endorse dysuria. I have ordered a UA with stool testing and labs. However, I have advised if UA is positive I will defer to PCP for treatment recommendations. - If stool is negative for infectious pathogen will complete additional for other causes of diarrhea Patient Instructions: A&D ointment for perianal irritation secondary to frequent stools [facility] Medical History Presence of upper and lower permanent dental bridges Wears hearing aid Cancer Bruising History of renal disease Bladder disease Pulmonary embolism Gastric reflux History of echocardiogram Cardiology follow-up encounter Urge incontinence of urine Candidiasis of female genitalia Peritoneal free air Breast mass, right Nonrheumatic aortic (valve) stenosis Lower extremity edema Essential hypertension Wears glasses Post-menopausal Abrasion Walker as ambulation aid Easy bruising Back pain History of IBS Non-smoker History of pain when walking History of edema Mild cognitive impairment Low sodium levels Steroid-induced psychosis Cystocele Heel spur Vitamin deficiency Skin cancer GERD (gastroesophageal reflux disease) Osteoporosis Osteoarthritis Kidney stones Kidney disease IBS (irritable bowel syndrome) Gout Gallstones Breast lump Bone fracture UTI (urinary tract infection) Abnormal ultrasound of breast Skin lesion Constipation Diarrhea Arthritis History of back problems Diabetes History of change in bowel patterns Hiatal hernia Home Medications ?Medication ?Instructions ?Recorded ?Last Taken ?Type lactobacillus combination no.8 3 3,000 mmu cells PO DAILY 11/24/18 10/13/24 History billion cell capsule (Adult Probiotic) pantoprazole 40 mg tablet,delayed 40 mg PO DAILY 02/03/20 10/14/24 History release finerenone 10 mg tablet (Kerendia) 10 mg PO DAILY 04/30/22 10/13/24 History calcium citrate 400 mg PO DAILY 11/18/23 10/13/24 History gabapentin 300 mg capsule 300 mg PO TID 04/27/24 10/14/24 History semaglutide 0.25 mg or 0.5 mg (2 0.25 mg subcut QWEEK 04/27/24 09/27/24 History mg/3 mL) subcutaneous pen injector (Ozempic) bariatric bypass fusion 1 ea PO DAILY 05/19/24 10/13/24 History denosumab 60 mg/mL subcutaneous 60 mg subcut [id number] 05/19/24 06/11/24 History syringe (Prolia) melatonin 3 mg capsule 3 mg PO BID 05/19/24 10/13/24 History methylcellulose (laxative) 500 mg 1,000 mg PO BID 05/19/24 10/13/24 History tablet (Citrucel) oxycodone 7.5 mg tablet,oral ONLY 7.5 mg PO BID PRN pain 05/19/24 10/13/24 History (not for feeding tubes) mirabegron 25 mg tablet,extended 25 mg PO QDAY 06/08/24 10/13/24 History release 24 hr (Myrbetriq) carvedilol 25 mg tablet 6.25 mg PO BID 07/01/24 10/14/24 History furosemide 20 mg tablet (Lasix) 40 mg PO QAM 07/01/24 10/13/24 History apixaban 5 mg tablet (Eliquis) 5 mg PO BID 10/12/24 09/28/24 History losartan 100 mg tablet 100 mg PO QHS 10/12/24 10/13/24 History Allergy/AdvReac Type Severity Reaction Status Date / Time Corticosteroids AdvReac Severe Other Verified 10/14/24 06:30 (Glucocorticoids) NSAIDS (Non-Steroidal AdvReac Severe Other Verified 10/14/24 06:30 Anti-Inflamma Family History Grandfather Arthritis Colon cancer Liver disease Grandmother Arthritis Hypertension Anemia Mother Arthritis Osteoporosis Father Hypertension Arthritis Liver disease Sister Arthritis Surgical History S/P insertion of spinal cord stimulator History of left heart catheterization History of open reduction and internal fixation (ORIF) procedure History of cardiac catheterization (2009) Hx of spinal fusion Hx of surgical procedure Hx of surgical procedure Hx laparoscopic cholecystectomy Hx of hysterectomy Hx of colonoscopy History of bursectomy H/O laminectomy Hx of cataract surgery H/O gastric bypass S/P vaginopexy History of repair of rectocele history excision melanoma forehead History of bilateral knee replacement Social History Smoking Status: Never smoker alcohol intake: never substance use type: does not use caffeine: No what type of physical activity do you participate in: other details: PT for strength & balance corinne/methodist: Christianity seatbelt use: always ROS Constitutional Constitutional: Denies fatigue, fever(s), poor appetite, weight gain or weight loss Gastrointestinal Gastrointestinal: Denies belching, bloating, change in bowel habits, change in stool character, chewing difficulty, coffee ground emesis, constipation, cramping, diarrhea, dyspepsia, dysphagia, early satiety, excessive flatus, fecal incontinence, heartburn, hematemesis, hematochezia, hemorrhoids, loose stools, melena, nausea, odynophagia, rectal bleeding, tenesmus, vomiting or weight changes Vital Signs Vital Signs Vital Signs: 10/14/24 06:44 10/14/24 06:47 Temperature 97.3 F L Temperature Source Temporal Pulse Rate 85 Respiratory Rate 18 Respiratory Pattern Normal Blood Pressure 145/78 H Blood Pressure Mean 100 Blood Pressure Source Monitor Blood Pressure Position Semi-Fowlers Blood Pressure Location Right Arm Pulse Ox 99 Oxygen Delivery Method Room Air Weight Weight: 132 lb 4.438 oz Body Mass Index (BMI) 29.6 Physical Exam Const alert, oriented x3, no apparent distress and healthy appearing General Appearance: cooperative GI normal to inspection, nondistended, normoactive bowel sounds, soft to palpation, non-tender and non-distended Percussion: normal to percussion Rectal Exam: deferred Assessment & Plan Assessment/Plan (1) Anemia: (2) Fecal urgency: (3) Fecal incontinence: PLAN: Assessment and Plan Assessment and Plan (1) Diarrhea: Status: Acute Plan 78y/o female presents for 1 month follow-up of diarrhea. She has reported at her last appointment that she was having up to 20+ BM daily. 05/20/2024 fecal calprotectin elevated 441 with US positive for Klebsiella and E. Coli. However; stool for C. diff was cancelled as lab reports the stool specimen was formed; suggesting the calprotectin was falsely elevated secondary to urinary contamination. She reports with Imodium TID with meals stools are now formed and less frequent, down to 4x a day. She reports experiencing occasional BRB on tissue. She leaves for [place] next week and will plan on proceeding with a colonoscopy upon her return in September/October. I have asked her to increase her daily Citrucel supplement and water intake. She will keep us apprised of any changes in her symptoms. Patient Instructions: 1. Increase fluid intake 2. Increase Citrucel caplets to 2 twice a day (1 gram twice a day) Plan Details Follow Up: 6 Months
--- NOTE | 2024-10-14 07:01 | PCM.PRE.AN2 ---
ASA Classification* ASA Classification ASA Classification: 3 Assessment & Plan Anesthesia* Anesthesia Assessment Anesthesia Assessment: Discussed sedation and/or anesthesia options, risks, benefits, and alternatives with patient/parents/legal guardian/POA. Questions invited. The patient/parents/legal guardian/POA seems to understand and agrees to proceed with anesthesia plan. Reviewed the physical assessment, medical history, allergy history and patient home medications list prior to surgery/procedure/anesthetic and documented any changes. Performed airway and anesthesia risk assessments. Anesthesia Type Anesthesia Type: MAC History Source History Obtained from:: Patient and Chart Anesthesia Focused Assessment* Temperature: 97.3 F Pulse Rate: 85 Blood Pressure: 145/78 Respiratory Rate: 18 Pulse Ox: 99 Oxygen Delivery Method: Room Air Airway Assessment Mouth opens: >3 cm Mallampati Score: II Teeth Condition: Intact and Caps/Crowns Focused Labs Anesthesia Preop lab: CBC WBC 7.1 K/mm3 (4.4-11.0) 05/19/24 12:03 05/19/24 RBC 3.44 M/mm3 (4.2-5.4) L 05/19/24 12:03 05/19/24 Hgb 11.1 g/dL (12.0-15.0) L 05/19/24 12:03 05/19/24 Hct 36.3 % (37-47) L 05/19/24 12:03 05/19/24 Plt Count 233 K/mm3 (150-450) 05/19/24 12:03 05/19/24 CHEMISTRY Potassium 4.1 mmol/L (3.3-5.1) 10/13/24 11:35 10/13/24 Sodium 136 mmol/L (133-145) 10/13/24 11:35 10/13/24 Magnesium 2.4 mg/dL (1.6-2.6) 04/09/24 12:49 04/09/24 Phosphorus 4.1 mg/dL (2.5-4.9) 01/08/23 09:36 01/08/23 BUN 28 mg/dL (4-19) H 10/13/24 11:35 10/13/24 Creatinine 0.91 mg/dL (0.70-1.20) 10/13/24 11:35 10/13/24 Glucose 93 mg/dL (70-99) 10/13/24 11:35 10/13/24 POC Glucose 93 mg/dL (74-106) 09/03/21 13:25 09/03/21 TSH 1.53 uIU/mL (0.358-3.74) 01/01/24 09:07 01/01/24 COAG PT 12.3 SECONDS (11.7-14.9) 07/18/20 11:14 07/18/20 Pre-Assessment Diagnosis/Proposed Procedure Planned Operative Procedure(s): COLONOSCOPY Anesthesia History Anesthesia History - oncology physician assistant: Anesthesia History - oncology physician assistant Hx Hospitalization Yes: 06/2024 IN [place] LOW 10/12/24 10:53 NA, LOW K, HYPOGLYCEMIA, PE Any Problems With Anesthesia No 10/12/24 10:53 Cholinesterase deficiency No 10/12/24 10:53 You/Your Family Experience No 10/12/24 10:53 fever (hyperthermia) with Relationship Recent Exposure to Contagious No 10/14/24 06:44 Disease Does patient have nerve Yes: WILL BRING REMOTES 10/12/24 10:53 stimulator Patient instructed to have device shut off --Does patient have Pacemaker No 10/14/24 06:47 or ICD? When Was Last Pacemaker Check QUESTION #4 FULL TEXT: You/Your Family Experience fever (hyperthermia) with Anesthesia Last Oral Intake Last Oral intake: Last Oral Intake NPO since 05:15 10/14/24 06:47 Meds taken in AM with sips of Yes 10/14/24 06:47 water? Meds patient instructed to take am of surgery PONV PONV - oncology physician assistant: PONV - oncology physician assistant Female Yes 10/12/24 10:53 HX of Motion Sickness No 10/12/24 10:53 HX of N/V After Surgery No 10/12/24 10:53 Non-Smoker Yes 10/12/24 10:53 Duration of Surgery greater No 10/12/24 10:53 than 60 minutes Number of Risk Factors 2 10/12/24 10:53 PONV Score Moderate Risk 10/12/24 10:53 Height & Weight Height & Weight: Anesthesia: Height & Weight Height 4 ft 8 in 10/14/24 06:47 Weight: 60 kg 10/14/24 06:47 Body Mass Index (BMI) 29.6 10/14/24 06:47 Respiratory Assessment Respiratory Assessment - oncology physician assistant: Respiratory Tract Infection Hx - oncology physician assistant Hx Respiratory Tract Infection No 10/12/24 10:53 STOP Sleep Apnea STOP Sleep Apnea - oncology physician assistant: STOP Sleep Apnea - oncology physician assistant Hx Hypertension Yes 10/12/24 10:53 Hx Sleep Apnea No 10/12/24 10:53 CPAP Yes: not used after gastric 12/06/21 14:48 bypass 2013 BIPAP No 12/06/21 14:48 Do you snore loudly (louder No 10/12/24 10:53 than talking or can be heard Do you often feel tired/ No 10/12/24 10:53 fatigued/ sleepy during daytime? Has anyone observed you stop No 10/12/24 10:53 breathing during sleep? STOP Results Negative 10/12/24 10:53 QUESTION #5 FULL TEXT : Do you snore loudly (louder than talking or can be heard through closed doors)? 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 Specify any problems Hx of Preganancy in last 3 No 10/12/24 10:53 Months Nurse Filling Out Transfusion VLEHDUNSEITH 10/12/24 10:53 & Questions: Date: 10/12/24 10/12/24 10:53 Time: 11:09 10/12/24 10:53 Patient unable to answer at this time (ie. confused, unrespo /Reproduction History /Reproductive History - oncology physician assistant: /Reproductive Hx- oncology physician assistant Hx Now No 10/12/24 10:53 Gestational Age (in weeks): EDC: Hx Hx Para Hx Section SAB Active Medications Active Medications: Current Medications Generic Name Dose Route Start Last Admin Trade Name Van PRN Reason Stop Dose Admin Lactated Ringer's 1,000 mls @ 15 mls/hr 10/14/24 06:15 10/14/24 06:43 IV 15 mls/hr .Q48H KARL Administration PFSH Medical History Presence of upper and lower permanent dental bridges Wears hearing aid Cancer Bruising History of renal disease Bladder disease Pulmonary embolism Gastric reflux History of echocardiogram Cardiology follow-up encounter Urge incontinence of urine Candidiasis of female genitalia Peritoneal free air Breast mass, right Nonrheumatic aortic (valve) stenosis Lower extremity edema Essential hypertension Wears glasses Post-menopausal Abrasion Walker as ambulation aid Easy bruising Back pain History of IBS Non-smoker History of pain when walking History of edema Mild cognitive impairment Low sodium levels Steroid-induced psychosis Cystocele Heel spur Vitamin deficiency Skin cancer GERD (gastroesophageal reflux disease) Osteoporosis Osteoarthritis Kidney stones Kidney disease IBS (irritable bowel syndrome) Gout Gallstones Breast lump Bone fracture UTI (urinary tract infection) Abnormal ultrasound of breast Skin lesion Constipation Diarrhea Arthritis History of back problems Diabetes History of change in bowel patterns Hiatal hernia Home Medications ?Medication ?Instructions ?Recorded ?Last Taken ?Type lactobacillus combination no.8 3 3,000 mmu cells PO DAILY 11/24/18 10/13/24 History billion cell capsule (Adult Probiotic) pantoprazole 40 mg tablet,delayed 40 mg PO DAILY 02/03/20 10/14/24 History release finerenone 10 mg tablet (Kerendia) 10 mg PO DAILY 04/30/22 10/13/24 History calcium citrate 400 mg PO DAILY 11/18/23 10/13/24 History gabapentin 300 mg capsule 300 mg PO TID 04/27/24 10/14/24 History semaglutide 0.25 mg or 0.5 mg (2 0.25 mg subcut QWEEK 04/27/24 09/27/24 History mg/3 mL) subcutaneous pen injector (Ozempic) bariatric bypass fusion 1 ea PO DAILY 05/19/24 10/13/24 History denosumab 60 mg/mL subcutaneous 60 mg subcut [id number] 05/19/24 06/11/24 History syringe (Prolia) melatonin 3 mg capsule 3 mg PO BID 05/19/24 10/13/24 History methylcellulose (laxative) 500 mg 1,000 mg PO BID 05/19/24 10/13/24 History tablet (Citrucel) oxycodone 7.5 mg tablet,oral ONLY 7.5 mg PO BID PRN pain 05/19/24 10/13/24 History (not for feeding tubes) mirabegron 25 mg tablet,extended 25 mg PO QDAY 06/08/24 10/13/24 History release 24 hr (Myrbetriq) carvedilol 25 mg tablet 6.25 mg PO BID 07/01/24 10/14/24 History furosemide 20 mg tablet (Lasix) 40 mg PO QAM 07/01/24 10/13/24 History apixaban 5 mg tablet (Eliquis) 5 mg PO BID 10/12/24 09/28/24 History losartan 100 mg tablet 100 mg PO QHS 10/12/24 10/13/24 History Allergy/AdvReac Type Severity Reaction Status Date / Time Corticosteroids AdvReac Severe Other Verified 10/14/24 06:30 (Glucocorticoids) NSAIDS (Non-Steroidal AdvReac Severe Other Verified 10/14/24 06:30 Anti-Inflamma Family History Grandfather Arthritis Colon cancer Liver disease Grandmother Arthritis Hypertension Anemia Mother Arthritis Osteoporosis Father Hypertension Arthritis Liver disease Sister Arthritis Surgical History S/P insertion of spinal cord stimulator History of left heart catheterization History of open reduction and internal fixation (ORIF) procedure History of cardiac catheterization (2009) Hx of spinal fusion Hx of surgical procedure Hx of surgical procedure Hx laparoscopic cholecystectomy Hx of hysterectomy Hx of colonoscopy History of bursectomy H/O laminectomy Hx of cataract surgery H/O gastric bypass S/P vaginopexy History of repair of rectocele history excision melanoma forehead History of bilateral knee replacement Social History Smoking Status: Never smoker alcohol intake: never substance use type: does not use caffeine: No what type of physical activity do you participate in: other details: PT for strength & balance corinne/faith: Oriental Orthodox seatbelt use: always Prior Cardiac Testing/Procedures Prior Cardiac Testing/Procedures: Echocardiogram (EF 55% in 2021) Addt'l Information Additional Findings: EKG NSR Review of Systems (Anesthesia) ROS Narrative System reviewed and no additional complaints, except as documented. Physical Exam Const alert and oriented x3 Resp normal respiratory effort and normal air movement Auscultation: clear to auscultation bilaterally Cardio regular rate and regular rhythm
--- NOTE | 2024-10-14 07:59 | OP.COLON_ITS ---
Patient Name: Shirley Love Procedure Date: 10/14/2024 7:21 AM Date of : 1945 Age: 79 Procedure: Colonoscopy Indications: Hematochezia Providers: Herman Ochoa DO Referring MD: Hugo Julio Medicines: Monitored Anesthesia Care Patient Profile: This is a 79 year old female. Refer to note in patient chart for documentation of history and physical. Last Colonoscopy: several years ago. Complications: No immediate complications. Procedure: Pre-Anesthesia Assessment: - Prior to the procedure, a History and Physical was performed, and patient medications and allergies were reviewed. The patient is competent. The risks and benefits of the procedure and the sedation options and risks were discussed with the patient. All questions were answered and informed consent was obtained. Patient identification and proposed procedure were verified by the physician in the pre-procedure area. Mental Status Examination: alert and oriented. Airway Examination: normal oropharyngeal airway and neck mobility. Respiratory Examination: clear to auscultation. CV Examination: normal. Prophylactic Antibiotics: The patient does not require prophylactic antibiotics. Prior Anticoagulants: The patient has taken no anticoagulant or antiplatelet agents except for NSAID medication. ASA Grade Assessment: III - A patient with severe systemic disease. After reviewing the risks and benefits, the patient was deemed in satisfactory condition to undergo the procedure. The anesthesia plan was to use monitored anesthesia care (MAC). Immediately prior to administration of medications, the patient was re-assessed for adequacy to receive sedatives. The heart rate, respiratory rate, oxygen saturations, blood pressure, adequacy of pulmonary ventilation, and response to care were monitored throughout the procedure. The physical status of the patient was re-assessed after the procedure. After I obtained informed consent, the scope was passed under direct vision. Throughout the procedure, the patient's blood pressure, pulse, and oxygen saturations were monitored continuously. The Colonoscope was introduced through the anus and advanced to the cecum, identified by appendiceal orifice and ileocecal valve. The colonoscopy was performed without difficulty. The patient tolerated the procedure well. The quality of the bowel preparation was adequate. The ileocecal valve, appendiceal orifice, and rectum were photographed. Scope In: 7:31:51 AM Scope Withdrawal Time 0 hours 10 minutes 27 seconds Scope Out: 7:51:33 AM Total Procedure Duration Time 0 hours 19 minutes 42 seconds Findings: The perianal and digital rectal examinations were normal. Non-bleeding external and internal hemorrhoids were found during retroflexion. The hemorrhoids were Grade II (internal hemorrhoids that prolapse but reduce spontaneously). Mild rectal prolapse was present. Scattered small and large-mouthed diverticula were found in the recto-sigmoid colon, sigmoid colon, descending colon, splenic flexure and ascending colon. Impression: - Non-bleeding external and internal hemorrhoids. - Rectal prolapse. - Diverticulosis in the recto-sigmoid colon, in the sigmoid colon, in the descending colon, at the splenic flexure and in the ascending colon. - No specimens collected. Recommendation: - Discharge patient to home. - Resume previous diet. - Continue present medications. - Repeat colonoscopy in 5 years for surveillance. Procedure Code(s): --- Professional --- 71619, Colonoscopy, flexible; diagnostic, including collection of specimen(s) by brushing or washing, when performed (separate procedure) CPT copyright 2021 [employer]. All rights reserved. The codes documented in this report are preliminary and upon display decorator review may be revised to meet current compliance requirements. Herman Ochoa DO 10/14/2024 7:59:31 AM This report has been signed electronically. Number of Addenda: 0 Note Initiated On: 10/14/2024 7:21 AM
--- NOTE | 2024-10-14 07:59 | PCM.POST.ANE ---
Anesthesia: Postop Eval I Current Vital Signs Temperature: 97.4 F Pulse Rate: 64 Blood Pressure: 107/53 Respiratory Rate: 16 Pulse Ox: 99 Oxygen Delivery Method: Room Air Assessment Airway patent: Yes Spontaneous unlabored respirations: Yes Mental status: Awake and Calm nausea: No Vomiting: No Anesthesia Complication: No Fluid Hydration Crystalloid volume administer (ml): 500 Total IV fluid infused: 500 Progress Note Anesthesia document: Postop Eval 1 completed: Yes
--- NOTE | 2024-10-14 08:00 | OP.CCLET_ITS ---
10/14/2024 Hugo Julio [address] [place] [address] Re : Colonoscopy procedure for Shirley Love Dear Dr. Julio This procedure was performed on September. My impressions and recommendations are as follows: Impressions : - Non-bleeding external and internal hemorrhoids. - Rectal prolapse. - Diverticulosis in the recto-sigmoid colon, in the sigmoid colon, in the descending colon, at the splenic flexure and in the ascending colon. - No specimens collected. Recommendations : - Discharge patient to home. - Resume previous diet. - Continue present medications. - Repeat colonoscopy in 5 years for surveillance. My findings are described in the full procedure note, which is enclosed. If I can be of further assistance, please feel free to contact me at . Sincerely, Herman Ochoa, 10/14/2024 7:59:31 AM This report has been signed electronically.
[2024-10-14 09:08] LABS: Bedside Glucose 100 mg/dL (74-106)
--- NOTE | 2024-10-14 10:50 | PCM.POSTANE2 ---
Anesthesia Postop Eval I Sum Postop Eval Completion status Anesthesia document: Postop Eval 1 completed: Yes Anesthesia Postop Eval I Summary Anesthesia Postop Eval I Summary: Anesthesia Postop Eval I: Assessment Summary Airway patent Yes 10/14/24 08:00 [email or web address] Spontaneous unlabored Yes 10/14/24 08:00 [email or web address] respirations Mental status Awake,Calm 10/14/24 08:00 [email or web address] nausea No 10/14/24 08:00 [email or web address] Vomiting No 10/14/24 08:00 [email or web address] Anesthesia Postop Eval I: Fluid Summary Crystalloid volume administer 500 10/14/24 08:00 [email or web address] (ml) Colloids volume administered ( ml) Blood Product volume administered (ml) Total IV fluid infused 500 10/14/24 08:00 [email or web address] Anesthesia Postop Eval I: Summary Notes Anesthesia Complication No 10/14/24 08:00 [email or web address] Anesthesia Complication Comment: Post-operative progress note Anesthesia: Postop Eval II Evaluation Mental status: Awake and Calm Pain Level: 0 nausea: No Vomiting: No Complications Anesthesia Complication: No
== END 2024-10-14 08:44 | disposition home or self-care (01) ==
LOC: EN 06:03 → AC 06:04
PROVIDERS: PCP Family Medicine; Referring Provider Family Medicine; Visit Provider Internal Medicine Gastroenterology
PROC: 0DJD8ZZ Inspection of Lower Intestinal Tract, Via Natural or Artificial Opening Endoscopic (ICD-10-PCS; CPT 45378; principal; 2024-10-14 06:55)
DX: R19.7 Diarrhea, unspecified (principal); E11.9 Type 2 diabetes mellitus without complications; K62.3 Rectal prolapse; I10 Essential (primary) hypertension; R15.9 Full incontinence of feces; K57.30 Diverticulosis of large intestine without perforation or abscess without bleeding; K21.9 Gastro-esophageal reflux disease without esophagitis; Z90.710 Acquired absence of both cervix and uterus; Z85.828 Personal history of other malignant neoplasm of skin; Z79.899 Other long term (current) drug therapy; Z79.85 Long-term (current) use of injectable non-insulin antidiabetic drugs; Z86.711 Personal history of pulmonary embolism; Z79.01 Long term (current) use of anticoagulants; Z90.49 Acquired absence of other specified parts of digestive tract; Z96.653 Presence of artificial knee joint, bilateral; D64.9 Anemia, unspecified; R15.2 Fecal urgency; K64.4 Residual hemorrhoidal skin tags; K64.1 Second degree hemorrhoids
CPT/HCPCS: 45378; 82962; J2405

== ENCOUNTER → 2024-11-10 | Outpatient (CLI) | payer MEDICARE, OTHER, SELFPAY ==
[2024-11-10 13:12] LABS: Albumin, Serum 3.6 g/dL (3.4-4.8); Anion Gap 11 (5-15); BUN 36 mg/dL (4-19); BUN/Creat Ratio 43.7 RATIO (10-20); Calcium,Total 9.2 mg/dL (7.6-11.0); Chloride 104 mmol/L (98-108); Creatinine, Serum 0.82 mg/dL (0.70-1.20); EST Glomerular Filtration Rate 73 (>60); Glucose 96 mg/dL (70-99); Phosphorus 4.3 mg/dL (2.7-4.5); Potassium 4.6 mmol/L (3.3-5.1); Sodium Level 139 mmol/L (133-145)
[2024-11-10 13:27] LABS: Microalbumin,Random Urine < 12.0 mg/L (NO RANGE EST.); Microalbumin:Creatinine Ratio UNABLE TO CALCULATE mg/g CRE
== END | disposition home or self-care (01) ==
LOC: MTLAB 09:14
PROVIDERS: PCP Family Medicine; Referring Provider Internal Medicine Nephrology; Visit Provider Internal Medicine Nephrology
DX: E11.21 Type 2 diabetes mellitus with diabetic nephropathy (principal); E11.22 Type 2 diabetes mellitus with diabetic chronic kidney disease; N18.2 Chronic kidney disease, stage 2 (mild)
CPT/HCPCS: 36415; 80069; 82043; 82570

== ENCOUNTER → 2025-01-26 | Outpatient (CLI) | payer MEDICARE, OTHER, SELFPAY ==
--- NOTE | 2025-01-26 15:32 | RAD_ITS ---
PROCEDURE: ABDOMEN SINGLE VIEW 01/26/2025 REASON FOR EXAM: URGE INCONTINENCE TECHNIQUE: Two-view supine abdomen COMPARISON: Abdomen study of 11/04/2018 RAD/Abdomen Single View IMPRESSION: Prominent arterial calcification is noted. Spinal neurostimulator seen with tip projecting at the T10 level. A right pelvic neurostimulator is also seen. 2 screws are seen across the righ t sacroiliac joint. Multiple abdominal surgical clips are again seen. Advanced degenerative changes of the visualized thoracolumbar spine has progres sive 2019. Lumbar dextroscoliosis is again seen. Mild bilateral hip joint degenerative changes are noted. Healed or healing fractures bilateral superior and inferior rami. Air and stool are seen throughout the large bowel and rectum, including numerou s small bowel loops, without definite small bowel dilation seen. This is a nonspecific bowel-gas pattern. No mass or mass effect is noted. Reading Location: [place] [id number]
== END | disposition home or self-care (01) ==
LOC: MTRAD 15:32
PROVIDERS: PCP Family Medicine; Referring Provider Urology; Visit Provider Urology
DX: N39.41 Urge incontinence (principal)
CPT/HCPCS: 74018

== ENCOUNTER → 2025-02-15 | Outpatient (CLI) | payer MEDICARE, OTHER, SELFPAY ==
--- NOTE | 2025-02-15 14:15 | CT_ITS ---
PROCEDURE: CTA CHEST W/WO CONTRAST 02/15/2025 REASON FOR EXAM: RECENT PE TECHNIQUE: Procedure Code: [id number] Modality: CT Procedure: CTA CHEST W/WO CONTRAST Multiplanar Sagittal and Coronal images were obtained. 3D post processing was performed CONTRAST: Isovue 370 VOLUME: 100 mL One or more dose reduction techniques were used (e.g., Automated exposure control, adjustment of the mA and/or kV according to patient size, use of iterative reconstruction technique). RADIATION DOSE SUMMARY: DLP: 227.2 mGycm COMPARISON: Radiographs of the chest dated 04/24/2024 FINDINGS: Thoracic Aorta: Atherosclerosis. Mild ectasia. No aneurysmal dilatation or dissection. The descending aorta is of normal caliber. Heart: Cardiomegaly. Calcifications in the mitral annulus and aortic leaflets. Coronary arterial calcifications. No pericardial effusion. Pulmonary Vessels: No filling defect to suggest a pulmonary embolus. Normal caliber of the pulmonary arterial tree. Hardware: None Lymph nodes: No mediastinal or axillary lymphadenopathy. Calcified right hilar lymph nodes identified. Lungs and Airways: No acute cardiopulmonary process. Patent airway. Small ground-glass nodule in the right upper lobe measuring 8 mm. No dominant nodule over 6 mm. Mild emphysematous changes. Pleura: No pneumothorax. No effusion. Upper Abdomen: Postsurgical changes of the GE junction with small sliding hiatal hernia. Unenhanced views of the liver unremarkable. Bones: Multilevel degenerative disc disease and spondylosis CT/CTA Chest W/WO Contrast IMPRESSION: No pulmonary embolus. Cardiomegaly and coronary arterial calcifications. 8 mm ground-glass nodule in the right upper lobe. Follow-up evaluation with re peat CT of the chest in 6 months is recommended to assess stability. Reading Location: [facility]
[2025-02-15 14:54] LABS: CREATININE FINGERSTICK < 1.0 mg/dL (0.55-1.02); EGFR FINGERSTICK > 60.0000 mL/min (>60)
--- OUTSIDE RECORDS SUMMARY | 2025-02-15 22:46 | XMS RPT_ITS | CCD ---
Author Organization [facility] Care Team Providers Care Clay Miner Name Role Phone Hugo Julio Unavailable Unavailable Unavailable Unavailable Unavailable VERN RUBIO Admitting Unavaila ble CONSULT, PSYCHIATRY Consulting Unavailable MARLON SHEETS Attending Unavailable HUGO JULIO Primary Care Unavailable Unavailable Primary Care Provider Unavailabl e Dr. Hugo Julio Primary Care Provider [phone] Dr. Hugo Julio Referring Provider Dr. Chris Campoverde Attending Provider Dr. Garrison Alvarez Attending Provider Hugo Julio MD Primary Care Provider Tera BREAUX, Carlos Unavailable Unavailable David Puga DO Unavailable Dr. Hugo Urias Attending Provider Hugo Julio Primary Care Provider Dr. Hugo Julio Primary Care Provider Dr. Hugo Julio Referring Provider Dr. Chris Campoverde Attending Provider [phone] Dr. Hugo Julio Primary Care Provider Dr. Hugo Julio Referring Provider [phone] CARLOS GRANADOS Unavailable Hugo Julio MD Primary Care Provider David Puga DO Unavailable Heber I, DO, Tiara Unavailable Jack Meraz Carlos A Unavailable Hazel Dupree Unavailable [phone] Hugo Julio Primary Care Provider Dr. Hugo Julio Referring Provider Hugo Julio MD Primary Care Provider David Puga DO Unavailable Heber Bill DO Tiara Unavailable Gustavo Yusufv A Unavailable Hazel Dupree Unavailable Dr. Hugo Julio Primary Care Provider Dr. Hugo Julio Referring Provider Rosamaria LO, PA Mary Ames Attending Provider Dr. Chris Campoverde Attending Provider Dr. Garrison Alvarez Attending Provider Heber Bill DO, Tiara Unavailable FELICITAS RENZO T Referring Unavailable JULIO, HUGO VALERI Primary Care Unavailable FELICITAS, RENZO T Referring Unavailable JULIO, HUGO VALERI Primary Care Unavailable FELICITAS, RENZO T Referring Unavailable JULIO, HUGO VALERI Primary Care Unavailable JULIO, HUGO VALERI Primary Care Unavailable JULIO, HUGO VALERI Referring Unavailable FELICITAS RENZO T Attending Unavailable NANCI, AAKASH Referring Unavailable JULIO, HUGO VALERI Primary Care Unavailable LYNNE KEY Attending Unavailable JULIO, HUGO VALERI Primary Care Unavailable LYNNE KEY Referring Unavailable KAYLANIAN, AAKASH Referring Unavailable JULIO, HUGO VALERI Primary Care Unavailable LYNNE KEY Attending Unavailable AAKASH BRYAN Attending Unavailable JULIO, HUGO VALERI Primary Care Unavailable FELICITAS, RENZO T Referring Unavailable JULIO, HUGO VALERI Primary Care Unavailable FELICITAS, RENZO T Referring Unavailable JULIO, HUGO VALERI Primary Care Unavailable DOLORES DOLL Attending Unavailable DOLORES DOLL Admitting Unavailable Julio, Hugo A Primary Care Provider LUANA PARDO Unavailable Dr. Hugo Julio Primary Care Provider Dr. Hugo Julio Referring Provider Rosamaria LO, WALLY Ames Attending Provider Dr. Chris Campoverde Attending Provider Dr. Hugo Julio Primary Care Unavailable ZACHARIAH, DO MARILIA Mueller Attending Unavailable Nelsy, Dr. Hugo Rodriguez Referring Unavailable ZACHARIAH, DO CAPELLAN R Attending Unavailable Nelsy, Dr. Hugo Rodriguez Primary Care Unavailable Nelsy, Dr. Hugo Rodriguez Referring Unavailable ZACHARIAH, DO MARILIA Mueller Attending Unavailable Nelsy, Dr. Hugo Rodriguez Primary Care Unavailable Nelsy, Dr. Hugo Rodriguez Referring Unavailable Nelsy, Dr. Hugo Rodriguez Primary Care Unavailable ZACHARIAH, DO MARILIA Mueller Attending Unavailable Nelsy, Dr. Hugo Rodriguez Referring Unavailable Nelsy, Dr. Hugo Rodriguez Primary Care Unavailable ZACHARIAH, DO MARILIA Mueller Attending Unavailable Nelsy, Dr. Hugo Rodriguez Referring Unavailable Nelsy, Dr. Arias Primary Care Provider Dr. Hugo Julio Referring Provider [phone] Chris Campoverde Attending Provider [phone] Hugo Julio MD Primary Care Provider Hugo Julio MD Unavailable MARILIA STUBBS Attending Unavailable HUGO JULIO Primary Care Unavailable MARILIA STUBBS Attending Unavailable HUGO JULIO Primary Care Unavailable LUANA PARDO Attending Unavailable HUGO JULIO A Primary Care Unavailable LUL BREAUX, DR KATHY Rodriguez Attending UnavailSHIVAM Mckeon Admitting Unavailable GIRMA ROBERTS Attending Unavailable NICOLASA ROMERO Unavailable HUGO JULIO Primary Care Unavailable ALMA ESPINOZA Attending Unavailable HUGO JULIO Primary Care Unavailable Hugo Julio MD Primary Care Provider [phone] SKYE ANDRADEN-CAD OPERATOR, SHANTEL Rosas Primary Care Physicia n aGtito CARY, Yecenia Attending Unavailable Penelope Breaux Referring Unavailable Hugo Julio Primary Care Unavailable Hugo Julio Primary Care Unavailable Jenny Aguirre Attending Unavailable Jenny Aguirre Referring Unavailable David Puga Attending Unavailable Wietecha, David Referring Unavailable Julio, Hugo Primary Care Unavailable Kathy Mccarty Attending Unavailable Kathy Mccarty Referring Unavailable Julio, Hugo Primary Care Unavailable Julio, Hugo Attending Unavailable Julio, Hugo Referring Unavailable Julio, Hugo Primary Care Unavailable Julio, Hugo Attending Unavailable Julio, Hugo Referring Unavailable Julio, Hugo Primary Care Unavailable Gatito CLICKER OPERATOR, Yecenia Attending Unavailable Aviles CLIENT LEADER, Penelope Referring Unavailable Julio, Hugo Primary Care Unavailable Herman Ochoa Attending Unavailable Julio, Hugo Referring Unavailable Julio, Hugo Primary Care Unavailable Jose F Pugain Consulting Unavailable Julio, Hugo Attending Unavailable Julio, Hugo Referring Unavailable Julio, Hugo Primary Care Unavailable Tiara Buck Attending Unavailable Heber Tiara Referring Unavailable Julio, Hugo Primary Care Unavailable Hazel Dupree Attending Unavailable Hazel Dupree Referring Unavailable Julio, Hugo Primary Care Unavailable Gatito CLICKER OPERATOR, Yecenia Attending Unavailable Aviles CLIENT LEADER, Penelope Referring Unavailable Julio, Hugo Primary Care Unavailable Gatito CLICKER OPERATOR, Yecenia Attending Unavailable Aviles CLIENT LEADER, Penelope Referring Unavailable Julio, Hugo Primary Care Unavailable Jenny Aguirre Referring Unavailable Jenny Aguirre Attending Unavailable Julio, Hugo Primary Care Unavailable Bartolome Jimenez Attending Unavailable Julio, Hugo Primary Care Unavailable TimothyJenny Referring Unavailable Jenny Aguirre Attending Unavailable Julio, Hugo Primary Care Unavailable David Puga Attending Unavailable Wietecha, David Referring Unavailable Julio, Hugo Primary Care Unavailable Chris Campoverde Attending Unavailable Julio, Hugo Referring Unavailable Julio, Hugo Primary Care Unavailable Jenny Aguirre Attending Unavailable Julio, Hugo Referring Unavailable Julio, Hugo Primary Care Unavailable Herman Ochoa Consulting Unavailable Herman Ochoa Attending Unavailable Julio, Hugo Referring Unavailable Julio, Hugo Primary Care Unavailable Michael Rainey Referring Unavailable Michael Rainey Attending Unavailable Julio, Hugo Primary Care Unavailable SHANTEL CHEUNG Attending Unavailable SHANTEL CHEUNG Referring Unavailable Julio, Hugo Primary Care Unavailable Herman Ochoa Attending Unavailable Julio, Hugo Primary Care Unavailable Mary Garnica Attending Unavail able Mary Garnica Referring Unavail able Julio, Hugo Primary Care Unavailable Hazel Dupree Attending Unavailable Julio, Hugo Referring Unavailable Julio, Hugo Primary Care Unavailable Hazel Dupree Attending Unavailable Julio, Hugo Referring Unavailable Julio, Hugo Primary Care Unavailable Jenny Aguirre Attending Unavailable Julio, Hugo Referring Unavailable Julio, Hugo Primary Care Unavailable Julio, Hugo Referring Unavailable Julio, Hugo Primary Care Unavailable Mary Garnica Attending Unavail able Jenny Aguirre Attending Unavailable Julio, Hugo Referring Unavailable Julio, Hugo Primary Care Unavailable Jenny Aguirre Attending Unavailable Julio, Hugo Referring Unavailable Julio, Hugo Primary Care Unavailable Julio, Hugo Referring Unavailable Hazel Dupree Attending Unavailable Julio, Hugo Primary Care Unavailable Julio, Hugo Referring Unavailable Mary Garnica Attending Unavail able Julio, Hugo Primary Care Unavailable SKYE SULLIVAN, SHANTEL Rosas Primary Care Unava aura CAZARES MD, BELKYS Attending Unavailable Allergies Allergy Classification Reported Allergen(s) Allergy Type Date of Onset Reaction(s) Facility (18 sources) NSAIDs; Translations: [NSAIDs] Allergy to drug (finding) 07-09-19 22 [facility] (11 sources) rofecoxib; Translations: [ROFECOXIB] Drug Allergy 03-05-20 05 Swelling [facility] Work Phone: (20 sources) NSAIDS (Non-Steroidal Anti-Inflamma; Translations: [NSAIDS (Non-Steroidal Anti-Inflamma] Propensity to adverse reactions 09-04-19 22 Other [facility] (15 sources) systemic steroids Allergy to substance 09-04-19 22 mental psychosis [facility] Work Phone: (6 sources) Corticosteroids Propensity to adverse reactions intolerance [facility] Other (13 sources) Non-steroidal anti-inflammatory agent; Translations: [NSAIDS (NON-STEROIDAL ANTI-INFLAMMATORY DRUG)] Propensity to adverse reactions to drug 02-12-20 19 Other: See Comments, Unknown [facility] (7 sources) predniSONE; Translations: [PREDNISONE] Drug Allergy 04-29-20 22 Mental Status Change [facility] (12 sources) traMADol; Translations: [TRAMADOL] Drug Allergy 05-02-20 22 Mental Status Change [facility] (9 sources) Corticosteroids and derivatives Drug Intolerance 04-29-20 22 Hallucinations , Other, Unknown [facility] (6 sources) Mirabegron Allergy to substance 11-08-19 [facility] (6 sources) Non-steroidal anti-inflammatory agent Drug Allergy 05-30-20 19 Other [facility] (6 sources) rofecoxib Drug Allergy 03-05-20 05 [facility] Glucocorticoid Receptor Agonists; Translations: [CORTICOSTEROIDS (GLUCOCORTICOIDS)] Propensity to adverse reactions 11-15-19 Other [facility] (3 sources) Glucocorticoid preparation Drug Intolerance 02-11-20 23 Other [facility] (1 source) Corticosteroids Drug allergy (disorder) 01-27-20 [facility] Repository Medications Current Medications Medication Drug Class(es) Dates Sig (Normalized) Sig (Original) aluminum hydroxide 80 mg/ml / magnesium hydroxide 80 mg/ml / simethicone 8 mg/ml oral suspension (1 source) take 30 mL by mouth every six hours as needed aluminum & magnesium hydroxide-simeth icone (MYLANTA) 400-400-40 MG/5ML SUSP Take 30 mLs by mouth every 6 hours as needed 0 Active amLODIPine 5 mg oral tablet (20 sources) Dihydropyridine Calcium Channel Bayron Start: 12-17-2022 take 5 mg by mouth once daily Amlodipine Active 5 MG PO DAILY December 16, 2022 11:00pm Start: 10-31-2022 End: 01-22-2024 take 1 tablet by mouth once daily amLODIPine (Norvasc) 10 MG tablet Take 10 mg by mouth daily. 10/31/2022 01/22/2024 Discontinued (Therapy completed) Start: 05-26-2019 End: 05-15-2023 amLODIPine (Norvasc) 2.5 mg tablet amLODIPine Besylate 2.5 MG Oral Tablet Quantity: 90 Refills: 0 Start : 26-May-2019 Active 0 05/26/2019 05/15/2023 Discontinued (Therapy completed) Start: 05-26-2019 amLODIPine Bes ylate 2.5 MG Oral Tablet Quantity: 90 Refills: 0 Ordered: 31-May-2019 DO Start : 26-May-2019 Active Start: 04-24-2016 End: 10-31-2022 take 5 mg by mouth once daily Amlodipine Discontinued 5 MG PO DAILY November 24, 2018 1:48pm October 31, 2022 12:47pm Start: 03-04-2013 End: 04-26-2013 take 5 mg by mouth once daily Amlodipine Discontinued 5 MG PO DAILY March 03, 2013 11:00pm April 26, 2013 11:31am Comment on above: Take 2.5 mg by mouth once daily. Takes 5 MG Apoaequorin (PREVAGEN PO) (1 source) Apoaequorin (PRE VAGEN PO) Take by mouth 0 Active SZEYSKKRMN-QCOVMSSYGVC-QXNA NA (2 sources) AZELASTINE-FLUTI CASONE-NACL NA by Nasal route 0 Active Bariatric Multivitamins/Iron - (2 sources) Bariatric Multiv itamins/Iron - as directed Orally Active Ovtqjvs-Twacxnvzxp-Kiievlb D (CITRACAL +D3 PO) (1 source) take 2 tablets by mouth three times daily Srkxcpe-Ulvtbhycaf-Nucfvhe D (CITRACAL +D3 PO) Take by mouth 2 tablets three times a day 0 Active cefdinir 300 mg oral capsule (4 sources) Cephalosporin Antibacterial Sta rt: 4 End : 4 take 1 capsule by mouth twice daily cefdinir (Omnicef) 300 MG capsule Take 1 capsule (300 mg) by mouth 2 times daily for 2 doses. 2 capsule 01/24/2024 01/25/2024 Active cholestyramine resin 4000 mg powder for oral suspension (12 sources) Bile Acid Sequestrant Sta rt: 2 End : 4 cholestyramine (Questran) 4 g packet MIX THE CONTENTS OF 1 POWDER PACKET WITH 2-6 OZ OF NONCARBONATED BEVERAGE AND SWALLOW TWICE DAILY. 03/10/2023 Active Citracal +D3 250-107-500 MG-MG-UNIT (2 sources) Citracal +D3 250 -107-500 MG-MG-UNIT as directed Orally Active CRANBERRY-VITAMIN C PO (2 sources) CRANBERRY-VITAMI N C PO Take by mouth 0 Active dapagliflozin 10 mg oral tablet (20 sources) Sodium-Glucose Cotransporter 2 Inhibitor Start: 2021 End: 2023 take 1 tablet by mouth once daily Dapagliflozin Propanediol (Farxiga) 10 mg tablet Active 10 MG PO DAILY May 09, 2022 12:00am Start: 10-17-2021 End: 05-09-2022 take 1 tablet by mouth once daily Dapagliflozin Propanediol (Farxiga) 5 mg tablet Discontinued 5 MG PO DAILY April 30, 2022 12:00am May 09, 2022 4:01pm take 2 tablets by mo ut once daily dapagliflozin propanediol (Farxiga) 5 mg Take 2 tablets (10 mg) by mouth once daily. Active Comment on above: Take 5 mg by mouth o nce daily. 1 ml denosumab 60 mg/ml prefilled syringe (20 sources) RANK Ligand Inhibitor Start: 10-31-2022 Denosumab (Prolia) 60 mg/mL syringe Active 60 MG SC every 6 months October 30, 2022 11:00pm Start: 11-01-2019 denosumab (Pro darci) 60 mg/mL syringe Prolia 60 MG/ML Subcutaneous Solution Prefilled Syringe Quantity: 1 Refills: 0 Start : 01-Nov-2019 Active 11/01/2019 Active Start: 11-01-2019 Prolia 60 MG/M L Subcutaneous Solution Prefilled Syringe Quantity: 1 Refills: 0 Ordered: 02-Nov-2019 DO Start : 01-Nov-2019 Active Start: 04-24-2016 End: 11-24-2018 inject 60 mg by subcutaneous injection once Denosumab Discontinued 60 MG SQ ONE TIME April 24, 2016 12:00am November 24, 2018 1:54pm diclofenac sodium 0.01 mg/mg topical gel (20 sources) Nonsteroidal Anti-inflammatory Drug Start: 06-15-2019 diclofenac sodium 1 % kit Diclofenac Sodium 1 % External Gel Quantity: 100 Refills: 0 Start : 15-Jun-2019 Active 06/15/2019 Active Start: 06-15-2019 Diclofenac Sod ium 1 % External Gel Quantity: 100 Refills: 0 Ordered: 26-Jun-2019 DO Start : 15-Jun-2019 Active Voltaren 1 % GEL Quantity: 0 Refills: 0 Ordered: 16-Jan-2023 DO Active Comment on above: Diclofenac Sodium 1 % External Gel Quantity: 100 Refills: 0 Ordered: 26-Jun-2019 DO Start : 15-Jun-2019 Active docusate sodium 100 mg oral capsule (20 sources) Start: 05-07-20 13 End: 08-10-19 22 take 1 capsule by mouth twice daily as needed for constipation docusate sodium (Colace) 100 mg capsule Take 1 capsule (100 mg) by mouth 2 times a day as needed for constipation. 12/02/2019 Active Finerenone (8 sources) Start: 04-30-20 take 1 tablet by mouth once daily Finerenone (Kerendia) 10 mg tablet Active 10 MG PO DAILY April 30, 2022 1:00am Start: 04-30-2022 take 1 tablet by manuel th once daily Finerenone (Kerendia) 10 mg tablet Active 10 MG PO DAILY April 30, 2022 12:00am fluticasone propionate 0.05 mg/actuat metered dose nasal spray (13 sources) Corticosteroid End: 11-21-2023 take 1 spray(s) nasal route once daily fluticasone (Flonase Allergy Relief) 50 mcg/actuation nasal spray Administer 1 spray into each nostril once daily. 11/21/2023 Discontinued (Med List Cleanup) take 1 spray(s) nasal route once daily Flonase 50 MCG/ACT 1 spray in each nostril Nasally Once a day Not-Taking fluticasone (JIM NASE) 50 mcg/actuation nasal spray Use in the nose q 24 HR. 0 Active Comment on above: Use in the nose q 24 HR. furosemide 40 mg oral tablet (20 sources) Loop Diuretic Start: 09-25-2022 take 1 tablet by mouth once daily furosemide (Lasix) 40 MG tablet Take 40 mg by mouth Daily 09/25/2022 Active Start: 09-25-2022 take 1 tablet by manuel once daily furosemide (Lasix) 20 MG tablet Take 20 mg by mouth daily. 09/25/2022 Active Start: 10-17-2021 End: 10-17-2021 take 20 mg by mouth once daily Furosemide Active 20 MG PO DAILY October 17, 2021 2:24pm Start: 08-27-2021 End: 10-17-2021 take 20 mg by mouth twice daily Furosemide Discontinue d 20 MG PO TWICE A DAY October 17, 2021 6:37am October 17, 2021 2:24pm Start: 01-08-2021 End: 01-08-2021 take 1 tablet by mouth twice daily furOSEmide 20 MG tablet Take 1 tablet by mouth 2 times daily. If needed for swelling, at the discretion of your PCP. 0 01/08/2021 Active Start: 12-26-2019 take 2 tablets by mo [facility] once daily furosemide (Lasix) 20 mg tablet Take 2 tablets (40 mg) by mouth once daily. 12/26/2019 Active Start: 12-26-2019 End: 08-09-2021 take 20 mg by mouth once daily Furosemide Discontinued 20 MG PO DAILY February 02, 2020 11:00pm August 09, 2021 8:34am Start: 12-26-2019 Furosemide 20 MG Oral Tablet Quantity: 90 Refills: 0 Ordered: 26-Dec-2019 DO Start : 26-Dec-2019 Active Start: 01-13-2019 take 1 tablet by manuel th every week furosemide (LASIX) 40 mg tablet Take 1 tablet by mouth once each week. 4 tablet 0 01/13/2019 Active End: 05-15-2023 furosemide (Lasix) 80 mg tab let Lasix TABS Refills: 0 Active 0 05/15/2023 Discontinued (Therapy completed) Lasix TABS Quant ity: 0 Refills: 0 Ordered: 01-Jan-2022 DO Active Comment on above: Take 1 tablet by manuel th once each week. hydrocortisone acetate 0.025 mg/mg / lidocaine hydrochloride 0.03 mg/mg rectal gel (20 sources) Antiarrhythmic, Corticosteroid, Amide Local Anesthetic Start: 11-17-2020 lidocaine-hydrocorti sone-aloe 3-2.5 % (7 gram) kit Use as directed 11/17/2020 Active Start: 11-17-2020 Lidocaine-Hydr ocortisone Bairon 3-2.5 % Rectal Kit USE DIRECTED. Quantity: 1 Refills: 0 Ordered: 17-Nov-2020 Marilia Stubbs DO Start : 17-Nov-2020 Active Comment on above: by RECTAL route. ipratropium bromide 0.021 mg/actuat metered dose nasal spray (20 sources) Anticholinergic Start: 08-09-2021 Ipratropium Anthon Active 2 SPRAY INTRANASAL NEEDED August 09, 2021 12:00am administer into each nostril Start: 06-28-2019 End: 05-15-2023 ipratropium (Atrovent) 21 mc g (0.03 %) nasal spray Ipratropium Anthon 0.03 % Nasal Solution Quantity: 30 Refills: 0 Start : 28-Jun-2019 Active 0 06/28/2019 05/15/2023 Discontinued (Therapy completed) Start: 06-28-2019 Ipratropium Br omide 0.03 % Nasal Solution Quantity: 30 Refills: 0 Ordered: 28-Jun-2019 DO Start : 28-Jun-2019 Active Start: 06-28-2019 Ipratropium Br omide (ATROVENT) 21 mcg (0.03 %) nasal spray Use in the nose. 0 06/28/2019 Active Start: 06-28-2019 Ipratropium Br omide 0.03 % Nasal Solution Quantity: 30 Refills: 0 Ordered: 28-Jun-2019 DO Start : 28-Jun-2019 Active Comment on above: Use in the nose. Kerendia 10 MG tablet (9 sources) Start: 09-16-2022 take 1 tablet by mouth once daily Kerendia 10 MG tablet TAKE 1 TABLET BY MOUTH EVERY DAY *NOT COVERED 09/16/2022 Active Start: 09-16-2022 take 1 tablet by manuel th once daily Kerendia 10 MG tablet Take 1 tablet by mouth daily. 09/16/2022 Active Start: 09-16-2022 take 1 tablet by manuel th once daily Kerendia 10 MG tablet Take 1 tablet by mouth daily. 0 09/16/2022 Active Lactobacillus Combination No.8 (Adult Probiotic) 3 billion cell capsule (19 sources) Start: 11-24-2018 take 3 capsules by mouth once daily Lactobacillus Combination No.8 (Adult Probiotic) 3 billion cell capsule Active 3000 MMU CELLS PO DAILY November 24, 2018 3:00pm Start: 11-24-2018 take 3 capsules by m outh once daily Lactobacillus Combination No.8 (Adult Probiotic) 3 billion cell capsule Active 3000 MMU CELLS PO DAILY November 23, 2018 11:00pm Start: 11-24-2018 take 3 capsules by m outh once daily Lactobacillus Combination No.8 (Adult Probiotic) 3 billion cell capsule Active 3000 MMU CELLS PO DAILY November 24, 2018 12:00am methylcellulose 500 mg oral tablet (9 sources) methylcellulose, laxative, (CitruceL) 500 mg tablet Citrucel TABS Refills: 0 Active Active Citrucel 500 MG 2 tablets with a full glass of water as needed Orally Six times a day Active Citrucel TABS Qu antity: 0 Refills: 0 Ordered: 04-Mar-2022 DO Active Methylcellulose, Laxative, (CITRUCEL PO) (3 sources) take 2 tablets by mouth once daily Methylcellulose, Laxative, (CITRUCEL PO) 2 tab po daily Active Multiple Vitamin (MULTI-VITAMIN DAILY PO) (2 sources) Multiple Vitamin (MULTI-VITAMIN DAILY PO) Take by mouth 0 Active Axhgzidp-Nvi-Od-Lycopen-Lut ein (19 sources) Start: 03-04-2013 take 1 tablet by mouth once daily Yzpgynmb-Ryh-Fr-Lycopen-Lut ein Active 1 TABLET PO DAILY March 04, 2013 10:28am Start: 03-04-2013 take 1 tablet by manuel th once daily Epkebrfr-Lmy-Jd-Lycopen-Lutein Active 1 TABLET PO DAILY March 03, 2013 11:00pm Start: 03-04-2013 take 1 tablet by manuel th once daily Smaodquj-Ioj-Vm-Lycopen-Lutein Active 1 TABLET PO DAILY March 04, 2013 12:00am multivitamin tablet (1 source) take 1 tablet by manuel th once daily multivitamin tablet Take 1 tablet by mouth once daily. BARIATRIC FUSION Active Potassium (19 sources) POTASSIUM PO Jael e by mouth Active Potassium 75 MG tablet Take by mouth. Active take 1 tablet by mouth twice gulshan ly POTASSIUM ORAL Take 1 tablet by mouth 2 times a day. (75 mg) Active take 1 tablet by mouth twice gulshan ly POTASSIUM ORAL Take 1 tablet by mouth 2 times a day. (75 mg) 0 Active Potassium TABS Q uantity: 0 Refills: 0 Ordered: 16-Jan-2023 DO Active take 1 tablet by mouth twice gulshan ly Potassium 75 MG 1 tablet Orally takes twice a day takes 4 mg twice a day Active potassium citrate 10 meq extended release oral tablet (20 sources) Start: 12-22-2021 potassium citr ate ER (UROCIT-K) 10 mEq (1,080 mg) Take by mouth once daily. Take two by mouth daily 0 12/22/2021 Active Start: 10-17-2021 End: 10-31-2022 potassium citrate CR (Urocit -K-10) 10 mEq ER tablet Potassium Citrate ER 10 MEQ (1080 MG) Oral Tablet Extended Release Quantity: 360 Refills: 0 Start : 22-Dec-2021 Active 12/22/2021 Active Start: 10-17-2021 End: 10-17-2021 take 5 mEq by mouth once daily Potassium Citrate Disco ntinued 5 MEQ PO DAILY October 16, 2021 11:00pm October 17, 2021 2:23pm Comment on above: Take by mouth once d aily. Take two by mouth daily Probiotic Acidophilus - (6 sources) Probiotic Acidop hilus - as directed Orally Active sulfamethoxazole 800 mg / trimethoprim 160 mg oral tablet (1 source) Dihydrofolate Reductase Inhibitor Antibacterial, Sulfonamide Antimicrobial Start: 01-08-2021 End: 01-09-2021 take 1 tablet by mouth twice daily sulfamethoxazole-trimethoprim 800-160 MG per tablet Take 1 tablet by mouth 2 times daily for 2 doses. 2 tablet 0 01/08/2021 01/09/2021 Active telmisartan 40 mg oral tablet (14 sources) Angiotensin 2 Receptor Bayron Start: 10-21-2022 take 1 tablet by mouth in the morning telmisartan (MIcarDIS) 40 MG tablet Take 40 mg by mouth in the morning and 40 mg in the evening. Take before meals. 10/21/2022 Active Completed/Discontinued Medications Medication Drug Class(es) Dates Sig (Normalized) Sig (Original) acetaminophen 325 mg oral tablet (20 sources) Start: 02-03-2024 End: 02-03-2024 325 mg, Oral, Once, On Fri02/03/24 at 1920, For 1 dose, Maximum dose of acetaminophen is 4000 mg from all sources in 24 hours. Start: 01-22-2024 End: 01-24-2024 take 1 tablet by mouth every six hours as needed for pain and fever acetaminophen (Tylenol) tablet 650 mg Start: 01-04-2021 End: 01-08-2021 take 1 tablet by mouth every six hours as needed 650 mg, Oral, EVERY 6 HOURS NEEDED, Starting on Fri01/04/21 at 1648, Until Fri01/08/21 at 1308, Mild Pain, Oral temp > 100.4 F Maximum dose of acetaminophen is 4000 mg from all sources in 24 hours. Start: 11-30-2018 acetaminophen (TYLENOL) 500 mg tablet Take by mouth. 0 11/30/2018 Active Start: 11-30-2018 take 500-1000 mg by mouth every six hours as needed Acetaminophen Active 500 - 1000 MG PO EVERY 6 HOURS NEEDED November 29, 2018 11:00pm acetaminophen (T ylenol) 500 mg capsule Tylenol 500 MG CAPS Refills: 0 Active Active Tylenol 500 MG C APS Quantity: 0 Refills: 0 Ordered: 15-Mar-2020 DO Active Comment on above: Take by mouth. acetaminophen 325 mg / oxyCODONE hydrochloride 5 mg oral tablet (2 sources) Opioid Agonist Start: 02-03-20 End: 02-03-20 take 2 tablets by mouth once 2 tablet, Oral, Once, On Fri02/03/24 at 1920, For 1 dose allopurinol 100 mg oral tablet (19 sources) Xanthine Oxidase Inhibitor Start: 03-04-20 13 End: 05-07-20 13 take 100 mg by mouth twice daily at mealtime Allopurinol Discontinued 100 MG PO TWICE DAILY WITH MEALS March 03, 2013 11:00pm May 07, 2013 9:39am amoxicillin 875 mg oral tablet (9 sources) Penicillin-class Antibacterial take 1 tablet by mouth every twelve hours End: 06-07-2022 amoxicillin (AMOXIL) 875 mg tablet Take by mouth q 12 HR. 0 06/07/2022 Discontinued (Course of therapy completed) Comment on above: Take by mouth q 12 H R. amylase [id number] unt / lipase 95412 unt / protease [id number] unt delayed release oral capsule (17 sources) Start: 11-08-2019 End: 06-07-2022 take 2 capsules by mouth three times daily at mealtime, then take 2 capsules by mouth three times daily at mealtime [id number] (CREON 36) 36,000-114,000- 180,000 unit capsule Take 2 capsules by mouth three times daily with meals. Take 2 caps 3 times daily with meals;1 cap with each snack. 540 capsule 2 11/08/2019 06/07/2022 Discontinued (Course of therapy completed) Start: 02-11-2019 take 2 capsules by m outh four times daily Creon [id number] UNIT Oral Capsule Delayed Release Particles TAKE 2 CAPSULE 4 times daily Quantity: 720 Refills: 3 Ordered: 19-Oct-2020 Marilia Stubbs DO Start : 11-Feb-2019 [place] [address]-[address] Particles capsule Take by mouth 3 times daily with meals. 0 Active Comment on above: Take 2 capsules by m outh three times daily with meals. Take 2 caps 3 times daily with meals;1 cap with each snack. ascorbic acid 500 mg oral tablet (7 sources) Vitamin C take 0.5 tablet by mouth twice daily ascorbic acid, vitamin C, (VITAMIN C) 500 mg tablet Take 250 mg by mouth twice daily. 1/2 tablet 0 Active Comment on above: Take 250 mg by mouth twice daily. 1/2 tablet aspirin 81 mg delayed release oral tablet (6 sources) Platelet Aggregation Inhibitor, Nonsteroidal Anti-inflammatory Drug Start: 4 End: 4 take 81 mg by mouth once daily 81 mg, Oral, Daily, First dose on [facility] 01/22/24 at 1400, Do not crush, chew, or split. azelastine hydrochloride 0.137 mg/actuat metered dose nasal spray (18 sources) Histamine-1 Receptor Antagonist Start: 3 Azelastine HCl - 137 MCG/SPRAY Nasal Solution 2 (TWO) SPRAY TWICE DAILY NEEDED FOR ALLERGIES Quantity: 90 Refills: 0 Ordered: 14-Nov-2022 DO Start : 10-Oct-2022 Active Start: 01-27-2022 azelastine ( TELIN, ASTEPRO) 0.1% nasal spray USE 2 (TWO) SPRAY TWICE DAILY TO PREVENT AND TREAT ALLERGY RHINITS (ANTIHISTAMINE) 0 01/27/2022 Active End: 11-21-2023 take 1 spray(s) nasal route twice daily azelastine (Astelin) 137 mcg (0.1 %) nasal spray Administer 1 spray into each nostril 2 times a day. 11/21/2023 Discontinued (Med List Cleanup) take 1 puff(s) nasal route twice daily azelastine (ASTE RACHEL, ASTEPRO) 0.1% nasal spray Use in the nose q 12 HR. 0 Active Comment on above: Use in the nose q 12 HR. USE 2 (TWO) SPRAY TW ICE DAILY TO PREVENT AND TREAT ALLERGY RHINITS (ANTIHISTAMINE) azithromycin 250 mg oral tablet (18 sources) Macrolide Antimicrobial Start: 06-14-2019 End: 06-07-2022 azithromycin (ZITHROMAX) 250 mg tablet Take by mouth. 0 06/14/2019 06/07/2022 Discontinued (Course of therapy completed) Start: 06-14-2019 End: 05-06-2022 Azithromycin 250 MG Oral Tab let Quantity: 6 Refills: 0 Ordered: 14-Jun-2019 DO Start : 14-Jun-2019 End : 06-May-2022 Complete Comment on above: Take by mouth. B infantis/B ani/B maximino/B bifid (PROBIOTIC 4X ORAL) (7 sources) B infantis/B ani /B maximino/B bifid (PROBIOTIC 4X ORAL) Take by mouth once daily. 0 Active Comment on above: Take by mouth once d aily. bacillus subtilis [id number] unt / inulin 1000 mg chewable tablet (6 sources) Bacillus subtili s-inulin 1.5 billion cell-1 gram chew Take by mouth. 0 Active Comment on above: Take by mouth. Bariatric Fusion Oral Tablet Chewable (1 source) Bariatric Fusion Oral Tablet Chewable Quantity: 0 Refills: 0 Ordered: 17-Oct-2022 DO Active BENEFIBER, GUAR GUM, ORAL (7 sources) BENEFIBER, GUAR GUM, ORAL Take by mouth once daily. 0 Active Comment on above: Take by mouth once d aily. benzonatate (11 sources) Non-narcotic Antitussive End: 05-15-2023 benzonatate (ZONATUSS ORAL) Zonatuss 0 05/15/2023 Discontinued (Therapy completed) BENZONATATE ORAL Zonatuss takes 2-3 Not-Taking 0 Active Zonatuss takes 2 -3 Not-Taking Comment on above: Zonatuss takes 2-3 N ot-Taking bifidobacterium animalis [id number] unt / lactobacillus acidophilus [id number] unt oral capsule (20 sources) End: 05-15-2023 L. acidophilus/Bifid. animalis 32 billion cell capsule Acidophilus Probiotic Blend Oral Capsule Refills: 0 Active 0 05/15/2023 Discontinued (Therapy completed) Comment on above: Take by mouth. calcium carb/magnesium hydrox (CALCIUM CARBONATE-MAG HYDROXID ORAL) (2 sources) End: 11-17-2023 calcium carb/magnesium hydrox (CALCIUM CARBONATE-MAG HYDROXID ORAL) Rolaids CHEW Refills: 0 Active 11/17/2023 Discontinued (Med List Cleanup) calcium carb/mag nesium hydrox (CALCIUM CARBONATE-MAG HYDROXID ORAL) Rolaids CHEW Refills: 0 Active 0 Active calcium carb/magnesium hydrox (ROLAIDS ORAL) (7 sources) calcium carb/mag nesium hydrox (ROLAIDS ORAL) Take by mouth. 0 Active Comment on above: Take by mouth. calcium carbonate-Vit D3-minerals (CALTRATE PLUS) 600 mg calcium- 400 unit tab (7 sources) Start: 2 take 2 tablets by mouth three times daily calcium carbonate-Vit D3-minerals (CALTRATE PLUS) 600 mg calcium- 400 unit tab Take 2 tablets by mouth three times daily. 0 03/18/2012 Active Comment on above: Take 2 tablets by mo [facility] three times daily. calcium citrate 1200 mg oral tablet (20 sources) Start: 3 End: 9 take 1200 mg by mouth once daily Calcium Citrate Discontinued 1200 MG PO DAILY March 03, 2013 11:00pm November 24, 2018 1:56pm take 2 tablets by mouth three ti mes daily calcium citrate (CITRACAL ORAL) Take by mouth three times daily. Two tablets 0 Active Comment on above: Take by mouth three times daily. Two tablets Calcium Citrate + D3 250-200 MG-UNIT (6 sources) Calcium Citrate + D3 250-200 MG-UNIT 1 tablet Orally Twice a day takes 800 units 1200 mg Not-Taking Calcium Citrate + D3 250-200 MG-UNIT 1 tablet Orally Twice a day takes 800 units 1200 mg Active calcium citrate 950 mg / cholecalciferol 250 unt oral tablet (10 sources) Vitamin D Start: 01-23-2024 End: 01-24-2024 take 2 tablets by mouth three times daily 2 tablet, Oral, 3 times daily, First dose on Fri01/23/24 at 1400, Patient's own med. Med ID: [id number] Calcium Citrate- Vitamin D (Calcium Citrate + D3) 250-5 MG-MCG tablet Take 1,200 mg by mouth 3 times daily. Active End: 11-17-2023 take 1 tablet by mouth twice daily calcium citrate-vitamin D3 200 mg-6.25 mcg (250 unit) tablet Take 1 tablet by mouth 2 times a day. 11/17/2023 Discontinued (Med List Cleanup) Calcium Citrate- Vitamin D (Calcium Citrate + D3) 250-5 MG-MCG tablet Take by mouth every 12 hours. 0 Active calcium citrate/vitamin D3 (CALCIUM CITRATE + D ORAL) (7 sources) calcium citrate/ vitamin D3 (CALCIUM CITRATE + D ORAL) Take by mouth once daily. 0 Active Comment on above: Take by mouth once d aily. carvedilol 25 mg oral tablet (20 sources) alpha-Adrenergi c Bayron, beta-Adrenergic Bayron Start: 04-30-20 End: 01-24-20 24 take 25 mg by mouth twice daily at mealtime 25 mg, Oral, 2 times daily with meals, First dose on [facility] 01/22/24 at 1700 Start: 04-30-2022 End: 04-30-2022 take 12.5 mg by mouth twice daily Carvedilol Discontinued 12.5 MG PO TWICE A DAY 180 April 30, 2022 11:59am April 30, 2022 12:04pm Start: 04-30-2022 End: 04-30-2022 take 12.5 mg by mouth twice daily Carvedilol Discontinued 12.5 MG PO TWICE A DAY April 30, 2022 11:59am April 30, 2022 12:00pm Start: 01-08-2021 End: 04-08-2021 take 2 tablets by mouth twice daily at mealtime carveDILOL 6.25 MG tablet Take 2 tablets by mouth 2 times daily with meals. 120 tablet 2 01/08/2021 04/08/2021 Active Start: 01-06-2021 End: 01-08-2021 carveDILOL (COREG) tablet 12 .5 mg Start: 10-09-2019 End: 05-15-2023 carvedilol (COREG) 6.25 mg t ablet four times daily. 0 10/09/2019 Active Start: 10-09-2019 carvedilol (CO REG) 6.25 mg tablet 25 mg twice daily at 6AM and 9PM. 0 10/09/2019 Active Start: 04-24-2016 End: 04-30-2022 take 6.25 mg by mouth twice daily Carvedilol Discontinued 6.25 MG PO TWICE A DAY February 02, 2020 11:00pm April 30, 2022 11:59am take 2 tablets by mo uth twice daily carvedilol (Coreg) 3.125 mg tablet Take 2 tablets (6.25 mg) by mouth 2 times a day. Active Coreg 6.25 MG Or al Tablet Quantity: 0 Refills: 0 Ordered: 15-Mar-2020 DO Active Comment on above: twice daily with agustin ls. four times daily. 25 mg twice daily at 6AM and 9PM. cefTRIAXone 1000 mg injection (3 sources) Cephalosporin Antibacterial Start: End: take 1 g intravenously every twenty-four hours cefTRIAXone (ROCEPHIN) 1 g in dextrose 50ml premix IVPB Start: 01-04-2021 End: 01-06-2021 take 1 g intravenously every twenty-four hours cefTRIAXone (ROCEPHIN) 1 g in dextrose 50ml premix IVPB cefTRIAXone (Rocephin) 1,000 mg in sodium chloride 0.9 % 50 mL IVPB Mini-Bag Plus (4 sources) Start: 01-23-2024 End: 01-24-2024 1,000 mg, IntraVENous, at 10 0 mL/hr, Administer over 30 Minutes, Every 24 hours, First dose on Fri01/23/24 at 1200, For 2 days, Mini-Bag Plus bag, Suspected Indication (Select all that apply): Urinary Tract Infection Start: 01-22-2024 End: 01-22-2024 1,000 mg, IntraVENous, at 10 0 mL/hr, Administer over 30 Minutes, Once, On Taya 01/22/24 at 1130, For 1 dose, Mini-Bag Plus bag, Suspected Indication (Select all that apply): Urinary Tract Infection chlorpheniramine maleate 4 mg oral tablet (20 sources) Histamine-1 Receptor Antagonist Start: 08-09-2021 chlorpheniramine (CHLORTRIMETON) 4 mg tablet Take by mouth. 0 08/09/2021 Active Start: 08-09-2021 End: 10-31-2022 Chlorpheniramine Maleate Dis continued 4 MG PO NEEDED August 09, 2021 12:00am October 31, 2022 12:29pm do not exceed 2 doses per 24 hrs Comment on above: Take by mouth. cholecalciferol 0.01 mg oral capsule (20 sources) Vitamin D Start: 9 End: take 800 [IU] by mouth once daily Cholecalciferol (Vitamin D3) Discontinued 800 UNIT PO DAILY May 30, 2019 12:00am October 31, 2022 12:29pm Start: 03-04-2013 End: 11-24-2018 take 1000 [IU] by mouth once daily Cholecalciferol (Vitamin D3) Discontinued 1000 UNIT PO DAILY March 03, 2013 11:00pm November 24, 2018 1:56pm End: 11-17-2023 cholecalciferol (Vitamin D-3 ) 50 mcg (2,000 unit) capsule Take by mouth. As directed 11/17/2023 Discontinued (Med List Cleanup) End: 05-15-2023 cholecalciferol, vitamin D3, 250 mcg (10,000 unit) tablet Vitamin D3 250 MCG (94651 UT) Oral Tablet Refills: 0 Active 0 05/15/2023 Discontinued (Therapy completed) Prevagen 10 MG a s directed Orally Not-Taking cholecalciferol 9.52 unt/ml / glucose 357 mg/ml oral gel (2 sources) Vitamin D Start: 01-22-2024 End: 01-24-2024 colestipol hydrochloride 1000 mg oral tablet (20 sources) Bile Acid Sequestrant Start: 01-08-2022 End: 05-15-2023 Colestipol (Colestid) 1 gram tablet Discontinued 1 GM PO TWICE A DAY April 30, 2022 12:00am October 31, 2022 12:29pm End: 05-15-2023 take 2 tablets by mouth once daily colestipol (Colestid) 1 gram tablet Take 2 tablets (2 g) by mouth once daily. 0 05/15/2023 Discontinued (Therapy completed) take 2 tablets by mo uth every twenty-four hours take 2 tablets by mo uth every twenty-four hours Comment on above: Take 1 g by mouth tw ice daily. cranberry fruit extract (CRANBERRY CONCENTRATE ORAL) (7 sources) cranberry fruit extract (CRANBERRY CONCENTRATE ORAL) Take by mouth once daily. 0 Active Comment on above: Take by mouth once d aily. cranberry preparation 500 mg oral capsule (20 sources) Non-Standardized Food Allergenic Extract, Non-Standardized Plant Allergenic Extract Start: 11-30-2018 Cranberry 500 mg cap Take by mouth. 0 11/30/2018 Active Start: 11-30-2018 take 1000 mg by mout h once daily Cranberry Active 1000 MG PO DAILY November 30, 2018 9:11am Start: 11-30-2018 End: 10-31-2022 take 1000 mg by mouth once daily Cranberry Discontinued 1000 MG PO DAILY November 29, 2018 11:00pm October 31, 2022 12:29pm Start: 11-30-2018 End: 10-31-2022 take 1000 mg by mouth once daily Cranberry Discontinued 1000 MG PO DAILY November 30, 2018 12:00am October 31, 2022 1:29pm Start: 11-30-2018 take 1000 mg by mout h once daily Cranberry Active 1000 MG PO DAILY November 29, 2018 11:00pm Start: 11-30-2018 take 1000 mg by mout h once daily Cranberry Active 1000 MG PO DAILY November 30, 2018 12:00am End: 05-15-2023 cranberry extract 200 mg cap uyen Cranberry CAPS Refills: 0 Active 0 05/15/2023 Discontinued (Therapy completed) End: 05-15-2023 CRANBERRY ORAL Take by mouth . (1000 mg) As directed 0 05/15/2023 Discontinued (Therapy completed) take 4200 mg by mout h once daily Cranberry CAPS Q uantity: 0 Refills: 0 Ordered: 15-Mar-2020 DO Active Comment on above: Take by mouth. dihydroxyaluminum sodium carbonate (16 sources) Rolaids CHEW Shawn ntity: 0 Refills: 0 Ordered: 15-Mar-2020 DO Active donepezil hydrochloride 10 m g oral tablet (20 sources) Start: 12-06-2021 Donepezil HCl - 10 MG Oral Tablet Quantity: 90 Refills: 0 Ordered: 07-Feb-2022 DO Start : 06-Dec-2021 Active Start: 12-06-2021 End: 01-22-2024 donepezil (Aricept) 10 MG ta blet daily. 02/07/2022 01/22/2024 Discontinued (Therapy completed) Start: 12-06-2021 End: 04-30-2022 take 5 mg by mouth once daily Donepezil Discontinued 5 MG PO DAILY December 05, 2021 11:00pm April 30, 2022 11:42am Aricept 5 MG Ora l Tablet Quantity: 0 Refills: 0 Ordered: 01-Jan-2022 DO Active Comment on above: 10 MG ORALLY DAILY B EGIN AFTER COMPLETING ONE MONTH OF TREATMENT OF DONEPEZIL 5MG NIGHTLY empagliflozin 10 mg oral tablet (20 sources) Sodium-Glucose Cotransporter 2 Inhibitor Start: 05-31-2019 End: 05-15-2023 empagliflozin (Jardiance) 10 mg Jardiance 10 MG Oral Tablet Quantity: 90 Refills: 0 Start : 31-May-2019 Active 0 05/31/2019 05/15/2023 Discontinued (Therapy completed) Start: 05-31-2019 empagliflozin (JARDIANCE) 10 mg tablet Take by mouth. 0 05/31/2019 Active Comment on above: Take by mouth. 0.4 ml enoxaparin sodium 100 mg/ml prefilled syringe (3 sources) Low Molecular Weight Heparin Start: 01-22-20 End: 01-24-20 inject 40 mg by subcutaneous injection every twenty-four hours 40 mg, SubCUTAneous, Every 24 hours scheduled (Daily), First dose on [facility] 01/22/24 at 1400, Indication of Use: Prophylaxis-DVT/PE, Indications: Prophylaxis of Venous Thromboembolism Start: 01-04-2021 End: 01-08-2021 inject 40 mg by subcutaneous injection every twenty-four hours 40 mg, Subcutaneous, EVERY 24 HOURS, First dose on Taya 01/04/21 at 1730, Until Discontinued Indications: DVT/PE prophylaxis estradiol 0.1 mg/ml vaginal cream (7 sources) Estrogen Start: 01-25-2019 estradiol (ESTRACE) 0.01 % (0.1 mg/gram) vaginal cream Comment on above: Estradiol ESTRACE CR EA As needed as directed [id number] Ami Rios 01-25-2019 [facility] ([id number]) famotidine 20 mg oral tablet (11 sources) Histamine-2 Receptor Antagonist Start: 02-11-2022 take 1 tablet by mouth twice daily famotidine (PEPCID) 20 mg tablet Take 20 mg by mouth twice daily. 0 02/11/2022 Active End: 05-15-2023 famotidine (Pepcid) 10 mg/mL injection Famotidine 10 MG/ML SOLN Refills: 0 Active 0 05/15/2023 Discontinued (Therapy completed) Famotidine 10 MG /ML SOLN Quantity: 0 Refills: 0 Ordered: 04-Mar-2022 DO Active Comment on above: Take 20 mg by mouth twice daily. ferrous bis-glycinate chelate (iron bisglycinate chelate) 28 mg iron capsule (1 source) End: 05-15-2023 take 1 tablet by mouth once daily ferrous bis-glycinate chelate (iron bisglycinate chelate) 28 mg iron capsule Take 1 tablet by mouth once daily. 0 05/15/2023 Discontinued (Therapy completed) ferrous sulfate 325 mg oral tablet (20 sources) Start: 12-19-2021 take 1 tablet by mouth once daily ferrous sulfate 325 mg (65 mg iron) tablet Take 1 tablet by mouth once daily. 0 12/19/2021 Active Start: 12-06-2021 End: 05-15-2023 take 325 mg by mouth once daily Ferrous Sulfate Discontinued 325 MG PO DAILY December 05, 2021 11:00pm October 31, 2022 12:30pm Comment on above: Take 1 tablet by manuel once daily. fexofenadine hydrochloride 60 mg oral tablet (11 sources) Histamine-1 Receptor Antagonist End: 3 take 1 tablet by mouth twice daily fexofenadine (Zainab Allergy) 60 mg tablet Take 1 tablet (60 mg) by mouth 2 times a day. 0 05/15/2023 Discontinued (Therapy completed) fexofenadine (AL LEGRA) 60 mg tablet Take by mouth q 12 HR. 0 Active Comment on above: Take by mouth q 12 H R. finerenone (KERENDIA) 10 mg tablet (4 sources) finerenone (KERENDIA) 10 mg tablet Take by mouth. 0 Active Comment on above: Take by mouth. Finerenone tablet 1 tablet (2 sources) Start: 01-22-20 End: 01-24-20 take 1 tablet by mouth once daily 1 tablet, Oral, Daily, First dose on [facility] 01/22/24 at 1345, Patient's own med. MED ID: [facility] FLOWFLEX COVID-19 AG HOME TEST kit (4 sources) Start: 01-11-20 FLOWFLEX COVID-19 AG HOME TEST kit as directed. 0 01/10/2022 Active Comment on above: as directed. fluorouracil 50 mg/ml topical cream (1 source) Nucleoside Metabolic Inhibitor Start: 11-12-19 23 Fluorouracil 5 % External Cream Quantity: 40 Refills: 0 Ordered: 18-Nov-2022 DO Start : 11-Nov-2022 Active gabapentin 300 mg oral capsule (10 sources) Anti-epileptic Agent Start: 11-20-19 End: 11-15-19 25 take 300 mg by mouth three times daily 300 mg, Oral, 3 times daily, First dose on Taya 01/22/24 at 1500 glucagon (rdna) 1 mg injection (2 sources) Antihypoglycemic Agent Start: 01-22-20 24 End: 01-24-20 24 150 ml glucose 50 mg/ml injection (4 sources) Start: 01-22-20 End: 01-24-20 Start: 01-22-2024 End: 01-24-2024 haloperidol 0.5 mg oral tablet (9 sources) Typical Antipsychotic Start: 08-31-2023 End: 03-01-2024 take 0.5 mg by mouth once daily in the morning 0.5 mg, Oral, Every morning, First dose on [facility]aya 01/22/24 at 1345, On hold since Fri01/23/2024 at 1353 until manually unheld Insulin Lispro (Humalog) injection 0-6 Units (2 sources) Start: 01-22-2024 End: 01-24-2024 Insulin Lispro (Humalog) injection 0-6 Units Iron (6 sources) take 1 tablet by mouth once danny y Iron 28 MG 1 tablet Orally Once a day for 30 day(s) Not-Taking take 1 tablet by mouth once danny y Iron 28 MG 1 tablet Orally Once a day for 30 day(s) Active Kerendia 10 MG Oral Tablet (4 sources) Kerendia 10 MG O ral Tablet Quantity: 0 Refills: 0 Ordered: 17-Oct-2022 DO Active End: 05-06-2022 Kerendia 10 MG Oral Tablet Q uantity: 0 Refills: 0 Ordered: 06-May-2022 DO End : 06-May-2022 Complete Kerendia 10 MG O ral Tablet Quantity: 0 Refills: 0 Ordered: 04-Mar-2022 DO Active Lactobac no.41/Bifidobact no.7 (PROBIOTIC-10 ORAL) (7 sources) Lactobac no.41/B ifidobact no.7 (PROBIOTIC-10 ORAL) Take by mouth once daily. 0 Active Comment on above: Take by mouth once d aily. Lactobacillus acidophilus (1 source) End: 05-15-2023 Lactobacillus acidophilus (PROBIOTIC ACIDOPHILUS ORAL) Take by mouth. As directed 0 05/15/2023 Discontinued (Therapy completed) levocetirizine (7 sources) Histamine-1 Receptor Antagonist End: 05-15-2023 levocetirizine dihydrochloride (XYZAL ORAL) Xyzal 0 05/15/2023 Discontinued (Therapy completed) Xyzal 5 mg once a day Not-Taking lidocaine 0.04 mg/mg medicated patch (2 sources) Antiarrhythmic, Amide Local Anesthetic Start: 02-03-2024 End: 02-03-2024 apply 1 dose transdermal route once daily, then apply 1 dose transdermal route every twelve hours 1 patch, TransDERmal, Administer over 12 Hours, Daily, First dose on Fri02/03/24 at 1920, Apply patch to chest wall. Patch may remain in place for up to 12 hours in any 24 hour period. losartan potassium 50 mg oral tablet (20 sources) Angiotensin 2 Receptor Bayron Start: 01-22-2024 End: 01-24-2024 take 50 mg by mouth once daily 50 mg, Oral, Daily, First dose on Fri01/22/24 at 1400, Substituted for telmisartan (Micardis). Start: 01-05-2021 End: 01-08-2021 take 100 mg by mouth once daily 100 mg, Oral, DAILY, F irst dose on Fri01/05/21 at 0900, Until Discontinued Start: 11-24-2018 End: 08-09-2021 take 50 mg by mouth once daily Losartan Discontinued 5 0 MG PO DAILY November 24, 2018 1:52pm August 09, 2021 8:35am Start: 04-24-2016 End: 05-15-2023 take 100 mg by mouth once daily Losartan Active 100 MG PO DAILY August 09, 2021 8:29am End: 05-15-2023 losartan (Cozaar) 50 mg tabl et Losartan Potassium 50 MG Oral Tablet Refills: 0 Active 0 05/15/2023 Discontinued (Therapy completed) Losartan Potassi um 50 MG Oral Tablet Quantity: 0 Refills: 0 Ordered: 15-Mar-2020 DO Active take 2 tablets by [facility] once daily losartan 50 MG tablet Take 100 mg by mouth daily. 0 Active Comment on above: Take 50 mg by mouth once daily. 100 MG magnesium amino acid chelate 133 mg oral tablet (2 sources) Start: 06-07-2022 take 2 tablets by mouth once daily at bedtime magnesium oxide-magnesium amino acid chelate (MG-PLUS) 133 mg tablet Indications: Intestinal malabsorption, unspecified type Take 2 tablets by mouth daily at bedtime. 100 tablet 4 06/07/2022 Active Comment on above: Take 2 tablets by [facility] daily at bedtime. magnesium gluconate 500 mg oral tablet (5 sources) End: 06-07-2022 magnesium gluconate (MAGONATE) 27 mg (500 mg) tab Take 500 mg by mouth. 0 06/07/2022 Discontinued (Side Effects) take 1 tablet by mouth once danny y magnesium gluconate (MAGONATE) 500 MG tablet Take 500 mg by mouth daily 0 Active Comment on above: Take 500 mg by mouth . magnesium oxide 250 mg oral tablet (20 sources) Start: 08-09-2021 End: 10-31-2022 take 500 mg by mouth once daily Magnesium Oxide Discontinued 500 MG PO DAILY August 09, 2021 8:30am October 31, 2022 12:30pm Start: 05-06-2013 End: 08-09-2021 take 400 mg by mouth once daily Magnesium Oxide Discon tinued 400 MG PO DAILY May 06, 2013 12:00am August 09, 2021 8:35am Start: 03-04-2013 End: 05-07-2013 take 400 mg by mouth once daily Magnesium Oxide Discon tinued 400 MG PO DAILY March 03, 2013 11:00pm May 07, 2013 9:39am Start: 03-18-2012 End: 05-15-2023 take 1 tablet by mouth twice daily magnesium oxide (Mag-Ox) 400 mg (241.3 mg magnesium) tablet Take 1 tablet (400 mg) by mouth 2 times a day. 0 09/08/2018 05/15/2023 Discontinued (Therapy completed) End: 05-15-2023 take 1 capsule by mouth once daily magnesium oxide 500 mg capsule Take 1 capsule (500 mg) by mouth once daily. 0 05/15/2023 Discontinued (Therapy completed) take 1 capsule by [facility] once daily Magnesium Oxide 500 MG 1 capsule Orally Once a day Not-Taking Comment on above: Take 1 tablet by [facility] twice daily. Take 400 mg by mouth twice daily. Melatonin (20 sources) Start: 01-22-2024 End: 01-24-2024 take 6 mg by mouth once daily 6 mg, Oral, Nightly, First dose on Taya 01/22/24 at 2100 Start: 05-30-2021 melatonin 3 MG tablet Take 3 mg by mouth. 05/30/2021 Active Start: 05-30-2021 take 6 mg by mouth once daily Melatonin Active 6 MG PO DAILY May 30, 2021 12:00am Start: 01-04-2021 End: 01-08-2021 take 6 mg by mouth once daily at bedtime as needed 6 mg, Oral, DAILY AT BEDTIME NEEDED, Starting on Taya 01/04/21 at 1648, Until 01/08/21 at 1308, Insomnia take 1 tablet by manuel th twice daily melatonin 3 MG tablet Take 1 tablet twice a day by oral route. Active take 1 tablet by manuel th every twelve hours Melatonin 3 MG 1 tablet at bedtime as needed Orally twice a day takes 2 Active take 2 tablets by mo mth once daily melatonin 3 mg tablet Take 6 mg by mouth once daily. 0 Active Comment on above: Take 6 mg by mouth o nce daily. metroNIDAZOLE 250 mg oral tablet (20 sources) Nitroimidazole Antimicrobial Start: 09-13-19 End: 05-11-20 take 1 tablet by mouth twice daily metroNIDAZOLE 250 MG Oral Tablet Take 1 tablet twice daily Quantity: 60 Refills: 5 Ordered: 19-Oct-2020 Marilia Stubbs DO Start : 12-Sep-2020 End : 11-May-2021 Complete Start: 03-15-2020 take 1 tablet by manuel th three times daily metroNIDAZOLE 250 MG Oral Tablet TAKE 1 TABLET 3 times daily Quantity: 42 Refills: 2 Ordered: 11-Oct-2021 Marilia Stubbs DO Start : 11-Oct-2021 Active take 2 capsules by m outh every eight hours take 2 capsules by m outh every eight hours milk thist seed ext/milk thist (MILK THISTLE EXTRACT ORAL) (7 sources) milk thist seed ext/milk thist (MILK THISTLE EXTRACT ORAL) Take by mouth once daily. 0 Active Comment on above: Take by mouth once d aily. milk thistle extract 150 mg oral capsule (20 sources) Start: 08-09-2021 Milk Thistle 150 mg cap Take 140 mg by mouth. 0 08/09/2021 Active Start: 08-09-2021 take 150 mg by mouth once daily Milk Thistle Active 150 MG PO DAILY August 09, 2021 9:28am give with meal/snack Start: 08-09-2021 End: 10-31-2022 take 150 mg by mouth once daily Milk Thistle Discontinued 150 MG PO DAILY August 09, 2021 12:00am October 31, 2022 12:30pm give with meal/snack Start: 08-09-2021 End: 10-31-2022 take 150 mg by mouth once daily Milk Thistle Discontinued 150 MG PO DAILY August 09, 2021 1:00am October 31, 2022 1:30pm give with meal/snack Start: 08-09-2021 take 150 mg by mouth once daily Milk Thistle Active 150 MG PO DAILY August 09, 2021 12:00am give with meal/snack Start: 08-09-2021 take 150 mg by mouth once daily Milk Thistle Active 150 MG PO DAILY August 09, 2021 1:00am give with meal/snack MILK THISTLE EXT RACT PO Take by mouth 0 Active Comment on above: Take 140 mg by mouth . MILK THISTLE SEED (1 source) End: 05-15-2023 milk thistle seed extract 140 mg capsule Take by mouth. As directed 0 05/15/2023 Discontinued (Therapy completed) 24 hr mirabegron 25 mg extended release oral tablet (20 sources) beta3-Adrenergic Agonist Start: 10-31-2022 End: 01-24-2024 take 25 mg by mouth once daily 25 mg, Oral, Nightly, First dose on Taya 01/22/24 at 2100, Do not crush, chew, or split. Start: 03-01-2020 Myrbetriq 25 M G Oral Tablet Extended Release 24 Hour Quantity: 60 Refills: 0 Ordered: 01-Mar-2020 DO Start : 01-Mar-2020 Active Start: 03-01-2020 take 1 tablet by manuel th twice daily mirabegron (Myrbetriq) 25 mg tablet extended release 24 hr 24 hr tablet Take 1 tablet (25 mg) by mouth 2 times a day. 03/01/2020 Active Comment on above: TAKE 1 TABLET BY MANUEL TH TWICE A DAY montelukast 10 mg oral tablet (4 sources) Leukotriene Receptor Antagonist Start: 08-09-2021 montelukast (SINGULAIR) 10 mg tablet Take by mouth. 0 08/09/2021 Active Comment on above: Take by mouth. Multivitamin Adults 50+ - (6 sources) Multivitamin Sabino lts 50+ - as directed Orally with copper Not-Taking Multivitamin Sabino lts 50+ - as directed Orally with copper Active multivitamin with minerals iron-free (onaqlqur-hqdu-purotiel-folic acid) (1 source) End: 05-15-2023 multivitamin with minerals iron-free (tcfbflhs-aocw-hspsocbo-folic acid) Take by mouth. As directed 0 05/15/2023 Discontinued (Therapy completed) multivitamins w-minerals/lut(CENTRUM SILVER TAB) (7 sources) Start: 02-04-2008 multivitamins w-minerals/lut(CENTRUM SILVER TAB) Take one(1) tablet daily. 0 02/04/2008 Active Comment on above: Take one(1) tablet d aily. 1 ml naloxone hydrochloride 0.4 mg/ml injection (2 sources) Opioid Antagon ist Start: 01-22-2024 End: 01-24-2024 0.4 mg, IntraVENous, Every 5 min PRN, opioid reversal, respiratory depression, Starting on Fri01/22/24 at 1718, +++ For RR ondansetron ODT (Zofran-ODT) disintegrating tablet 4 mg (2 sources) Start: 01-22-2024 End: 01-24-2024 take 1 tablet by mouth every eight hours as needed for nausea and vomitin g ondansetron ODT (Zofran-ODT) disintegrating tablet 4 mg oxyCODONE hydrochloride 5 mg oral tablet (19 sources) Opioid Agonist Start: 04-29-2016 End: 11-24-2018 take 5 mg by mouth every six hours as needed Oxycodone Discontinued 5 MG PO EVERY 6 HOURS NEEDED April 29, 2016 12:00am November 24, 2018 1:53pm Pancreatic enzymes (CREON) delayed release capsule 18,000 Units (1 source) Start: 01-04-2021 End: 01-08-2021 18,000 Units, Oral, 3 TIMES DAILY WITH MEALS, First dose on Fri01/04/21 at 1700, Until Discontinued Do not crush or chew capsule contents. Capsule contents can be sprinkled on soft acidic foods such as applesauce. Administration through a G-tube size 18 Fr or larger: Sprinkle capsule contents onto 15 mL of applesauce per Creon capsule, stir, and allow to sit for 15 minutes. Give 15 mL portions of the mixture at 10 to 15 second intervals, and then flush the tube with 10 to 30 mL of water. pantoprazole 40 mg delayed release oral tablet (20 sources) Proton Pump Inhibit or Start: 05-10-2019 End: 01-24-2024 take 40 mg by mouth once daily before breakfa st 40 mg, Oral, Daily before breakfast, First dose on Fri01/23/24 at 0600, Do not crush, chew, or split. Comment on above: Take 1 tablet by manuel once daily. Plenvu 140 GM Oral Solution Reconstituted (2 sources) Start: 03-29-2022 End: 05-06-2022 Plenvu 140 GM Oral Solution Reconstituted MIX AND USE DIRECTED BY PHYSICIAN Quantity: 1 Refills: 0 Ordered: 01-Apr-2022 Marilia Stubbs DO Start : 29-Mar-2022 End : 06-May-2022 Complete Start: 03-29-2022 Plenvu 140 GM Oral Solution Reconstituted MIX AND USE DIRECTED BY PHYSICIAN Quantity: 1 Refills: 0 Ordered: 01-Apr-2022 Marilia Stubbs DO Start : 29-Mar-2022 Active polyethylene glycol 3350 52947 mg powder for oral solution (2 sources) Osmotic Laxative Start: 01-22-2024 End: 01-24-2024 take 17 g by mouth every twenty-four hours as needed for constipation polyethylene glycol 3350 254652 mg / potassium chloride 2970 mg / sodium bicarbonate 6740 mg / sodium chloride 5860 mg / sodium sulfate 42741 mg powder for oral solution (4 sources) Osmotic Laxative Start: 03-14-2022 GAVILYTE-G 236-22.74-6.74 -5.86 gram suspension PLEASE SEE ATTACHED FOR DETAILED DIRECTIONS 0 03/14/2022 Active Comment on above: PLEASE SEE ATTACHED FOR DETAILED DIRECTIONS polypodium leucotomos 240 mg oral capsule (11 sources) End: 05-15-2023 take 1 capsule by mouth once daily polypodium leucotomos extract 240 mg capsule Take 1 capsule by mouth once daily. 0 05/15/2023 Discontinued (Therapy completed) take 1 capsule by [facility] every twenty-four hours Polypodium Leucotomos Extract 240 mg cap Take 1 capsule by mouth q 24 HR. 0 Active Comment on above: Take 1 capsule by mo [facility] q 24 HR. potassium chloride 8 meq extended release oral capsule (20 sources) Start: 05-30-2021 End: 10-17-2021 take 4 mEq by mouth twice daily Potassium Chloride Discontinued 4 MEQ PO TWICE A DAY May 30, 2021 12:00am October 17, 2021 6:36am Start: 03-04-2013 End: 05-06-2013 Potassium Chloride (K-Dur) 2 0 MEQ tablet Discontinued 20 MEQ PO TWICE A DAY March 03, 2013 11:00pm May 06, 2013 10:07pm Start: 03-18-2012 potassium chlo ride ER (K-DUR, KLOR-CON) 20 mEq tablet Take 20 mEq by mouth twice daily. 0 03/18/2012 Active take 2 tablets by mo [facility] once daily potassium chloride (KLOR-CON) 10 MEQ extended release tablet Take 20 mEq by mouth daily 0 Active Comment on above: [facility] Take 20 mEq by mouth twice daily. predniSONE 5 mg oral tablet (19 sources) Start: 04-24-2016 End: 11-24-2018 take 5 mg by mouth once daily Prednisone Discontinued 5 MG PO DAILY April 24, 2016 12:00am November 24, 2018 1:54pm pregabalin 50 mg oral capsule (20 sources) Start: 11-30-2018 End: 11-28-2020 take 50 mg by mouth at bedtime Pregabalin Discontinued 50 MG PO AT BEDTIME November 29, 2018 11:00pm November 28, 2020 1:52pm End: 05-15-2023 pregabalin (Lyrica) 25 mg ca psule Take by mouth once daily. 0 05/15/2023 Discontinued (Therapy completed) Comment on above: Take 25 mg by mouth once daily. psyllium 3400 mg powder for oral suspension (20 sources) Start: 06-03-2019 End: 05-15-2023 take 1 dose by mouth once daily psyllium (Metamucil) 3.4 gram packet Take 1 packet by mouth once daily. 0 06/03/2019 05/15/2023 Discontinued (Therapy completed) Start: 06-03-2019 take 1 dose by mouth once danny y [facility] Natural Fiber Supplement 58.6 % PACK TAKE 1 PACKET BY MOUTH ONCE DAILY. Quantity: 54 Refills: 0 Ordered: 03-Jun-2019 DO Start : 03-Jun-2019 Active Comment on above: Take by mouth. rifAXIMin 550 mg oral tablet (18 sources) Rifamycin Antibacterial Start: 06-20-19 End: 05-06-20 22 take 1 tablet by mouth three times daily Xifaxan 550 MG Oral Tablet take 1 tablet by mouth three times a day until finished Quantity: 42 Refills: 2 Ordered: 20-Jun-2021 Marilia Stubbs DO Start : 20-Jun-2021 End : 06-May-2022 Complete Comment on above: Take 550 mg by mouth . simethicone 80 mg chewable tablet (14 sources) End: 05-15-20 23 take 1 tablet by mouth three to four times daily at bedtime as needed simethicone (Mylicon) 80 mg chewable tablet Chew 1 tablet (80 mg). after meals and at bedtime as needed Orally three to Four times a day 0 05/15/2023 Discontinued (Therapy completed) take 2 tablets by mo uth once at bedtime as needed simethicone (GAS-X ORAL) Take by mouth. 2 TABS EVERY AFTER MEAL AND HS NEEDED 0 Active Comment on above: Take by mouth. 2 TAB S EVERY AFTER MEAL AND HS NEEDED simvastatin 20 mg oral tablet (19 sources) HMG-CoA Reductase Inhibitor Start: 3 End: 3 take 20 mg by mouth at bedtime Simvastatin Discontinued 20 MG PO AT BEDTIME March 03, 2013 11:00pm May 06, 2013 10:07pm sodium chloride 1000 mg oral tablet (15 sources) Start: 4 End: 4 1 g, Oral, 2 times daily, First dose (after last modification) on 01/24/24 at 2100 Start: 01-24-2024 End: 01-24-2024 1 g, Oral, 2 times daily, Fi rst dose (after last modification) on 01/24/24 at 2100 Start: 01-24-2024 End: 02-23-2024 take 1 tablet by mouth twice daily sodium chloride 1 g tablet Take 1 tablet (1 g) by mouth 2 times daily. 60 tablet 01/24/2024 02/23/2024 Active Start: 01-23-2024 End: 01-24-2024 1 g, Oral, 3 times daily wit h meals, First dose on 01/23/24 at 1345 Start: 01-22-2024 End: 01-22-2024 1,000 mL, IntraVENous, at 1, 000 mL/hr, Administer over 1 Hours, Once, On Taya 01/22/24 at 1130, For 1 dose Start: 01-04-2021 End: 01-08-2021 Intravenous, at 20 mL/hr, NEEDED, Starting on Taya 01/04/21 at 1647, Until 01/08/21 at 1308, Carrier Fluid - See Admin. Inst 250mL 0.9NS to be used as carrier fluid for intermittent small volume or piggyback medication administration as needed. Infusion rate of the carrier fluid should be set at 20 mL/hr unless the rate as the intermittent medication is less than 20 mL/hr. For intermittent medications with a rate less than 20 mL/hr set the carrier fluid at that rate of the intermittent or piggy back medication. spironolactone 25 mg oral tablet (19 sources) Aldosterone Antagonist Start: 04-24-2016 End: 11-24-2018 take 12.5 mg by mouth twice daily Spironolactone Discontinued 12.5 MG PO TWICE A DAY April 24, 2016 12:00am November 24, 2018 1:56pm traMADol hydrochloride 50 mg oral tablet (20 sources) Opioid Agonist Start: 01-22-2024 End: 01-24-2024 take 1 tablet by mouth every eight hours as needed for pain 50 mg, Oral, Every 8 hours PRN, severe pain (7-10), Starting on Taya 01/22/24 at 1713, Max of 300 mg daily for patients > 75 years of age. Start: 11-30-2018 End: 08-09-2021 take 50 mg by mouth every four hours as needed Tramadol Discontinued 50 MG PO EVERY 4 HOURS NEEDED November 29, 2018 11:00pm August 09, 2021 8:33am traMADol (Ultram ) 50 MG tablet Take 2 tablets by mouth if needed Active take 1 tablet by manuel once daily traMADol (Ultram) 50 mg tablet Take 1 tablet (50 mg) by mouth once daily. Active traMADol HCl - 5 0 MG Oral Tablet Quantity: 0 Refills: 0 Ordered: 15-Mar-2020 DO Active End: 01-08-2021 take 1 tablet by mouth every six hours as needed traMADol 50 MG tablet Take 50 mg by mouth every 6 hours as needed. 0 01/08/2021 Discontinued (Stop Taking at Discharge) Comment on above: TAKE 1 TABLET BY MANUEL TH 2 3 TIMES PER DAY NEEDED FOR PAIN vitamin b12 1 mg oral capsule (20 sources) Vitamin B12 Start: 08-09-2021 End: 10-31-2022 take 1000 ug by mouth once daily Cyanocobalamin (Vitamin B-12) Discontinued 1000 MCG PO DAILY August 09, 2021 12:00am October 31, 2022 12:29pm Start: 11-26-2018 Vitamin B 12 2 7 Oct, 2018 1000 mcg Start: 03-04-2013 End: 11-24-2018 Cyanocobalamin (Vitamin B-12 ) Discontinued 1000 MCG SL DAILY March 03, 2013 11:00pm November 24, 2018 1:54pm End: 05-15-2023 cyanocobalamin, vitamin B-12 , (Vitamin B-12) 1,000 mcg tablet extended release Vitamin B12 1000 MCG Oral Tablet Extended Release Refills: 0 Active 0 05/15/2023 Discontinued (Therapy completed) take 1 tablet by manuel once daily cyanocobalamin (VITAMIN B-12) 1,000 mcg tab Take 1,000 mcg by mouth once daily. 0 Active Vitamin B12 1000 MCG Oral Tablet Extended Release Quantity: 0 Refills: 0 Ordered: 15-Mar-2020 DO Active Comment on above: Take 1,000 mcg by mo [facility] once daily. Vitamin B12 1000 MCG (12 sources) Vitamin B12 1000 MCG as directed Orally Once a day Not-Taking Vitamin B12 1000 MCG as directed Orally Once a day Active take 1 tablet by mouth once danny y Vitamin B12 1000 MCG 1 tablet Orally Once a day for 30 day(s) Not-Taking WHEAT DEXTRIN (11 sources) End: 05-15-2023 wheat dextrin (BENEFIBER SUG AR FREE, DEXTRIN, ORAL) Take by mouth. As directed 0 05/15/2023 Discontinued (Therapy completed) WHEAT DEXTRIN OR AL Take by mouth. 0 Active Comment on above: Take by mouth. Problems Active Problems Problem Classification Problem Date Documented Date Episodic/Chronic Abdominal pain (2 sources) Unspecified abdominal pain; Translations: [Abdominal bloating with cramps] Onset: 2 Episodic Chronic kidney disease (6 sources) Chronic kidney disease stage 2; Translations: [Chronic kidney disease, stage 2 (mild)] Onset: 7 11-07-2022 Chronic Chronic ulcer of skin (3 sources) Pressure ulcer of unspecified part of back, stage 2; Translations: [Pressure ulcer of sacral region, stage 2] Onset: 5 Chronic Deficiency and other anemia (6 sources) Iron deficiency anemia, unspecified; Translations: [Iron deficiency anemia, unspecified] Episodic Delirium, dementia, and amnestic and other cognitive disorders (20 sources) Dementia; Translations: [Unspecified dementia without behavioral disturbance] Chronic Diabetes mellitus with complications (1 source) Type 2 diabetes mellitus with diabetic nephropathy; Translations: [Type 2 diabetes mellitus with diabetic nephropathy] Onset: 5 Chronic Diabetes mellitus without complication (20 sources) Diabetes mellitus; Translations: [Diabetes mellitus without mention of complication, type II or unspecified type, not stated as uncontrolled] Onset: 9 07-12-2021 Chronic Esophageal disorders (20 sources) Gastroesophageal reflux disease; Translations: [Esophageal reflux] Onset: 6 05-07-2006 Chronic Essential hypertension (20 sources) Essential hypertension; Translations: [Unspecified essential hypertension] Onset: 1 Chronic Genitourinary symptoms and ill-defined conditions (20 sources) Urinary incontinence; Translations: [Urinary incontinence, unspecified] Onset: 0 01-21-2020 Chronic Genitourinary symptoms and ill-defined conditions (16 sources) Dysuria; Translations: [Dysuria] Onset: 0 07-11-2021 Episodic Heart valve disorders (15 sources) Aortic stenosis, non-rheumatic ; Translations: [Nonrheumatic aortic (valve) stenosis] 11-16-2021 Chronic Intestinal infection (1 source) Enteric campylobacteriosis; Translations: [Campylobacter enteritis] 11-17-2023 Episodic Noninfectious gastroenteritis (1 source) Chronic diarrhea; Translations: [Noninfective gastroenteritis and colitis, unspecified] Episodic Nonmalignant breast conditions (13 sources) Fibrocystic disease of breast; Translations: [Diffuse cystic mastopathy of unspecified breast] Onset: 6 05-07-2006 Chronic Nutritional deficiencies (17 sources) Vitamin D deficiency; Translations: [Vitamin D deficiency, unspecified] Onset: 2 11-07-2022 Chronic Open wounds of extremities (4 sources) Tear of skin; Translations: [Laceration without foreign body of right elbow, initial encounter] Onset: 4 02-03-2024 Episodic Osteoarthritis (16 sources) Osteoarthritis; Translations: [Unspecified osteoarthritis, unspecified site] Onset: 1 Chronic Other bone disease and musculoskeletal deformities (1 source) Degenerative joint disease involving multiple joints; Translations: [Other hypertrophic osteoarthropathy, multiple sites] Chronic Other circulatory disease (4 sources) Other specified symptoms and signs involving the circulatory and respiratory systems; Translations: [Other symptoms involving cardiovascular system] Episodic Other diseases of bladder and urethra (1 source) Overactive bladder; Translations: [Overactive bladder] Onset: 5 Chronic Other diseases of kidney and ureters (8 sources) Secondary hyperparathyroidism; Translations: [Secondary hyperparathyroidism of renal origin] Onset: 2 07-12-2021 Chronic Other disorders of stomach and duodenum (7 sources) Gastroparesis syndrome; Translations: [Gastroparesis] 11-20-2009 Episodic Other endocrine disorders (8 sources) Hyperparathyroidism; Translations: [Hyperparathyroidism, unspecified] Onset: 3 02-10-2023 Chronic Other endocrine disorders (1 source) Hyperparathyroidism, unspecified Chronic Other gastrointestinal disorders (18 sources) Irritable bowel syndrome; Translations: [Irritable bowel syndrome] Onset: 3 Chronic Other gastrointestinal disorders (20 sources) Fatty stool ; Translations: [Other specified intestinal malabsorption] Onset: 3 11-07-2022 Chronic Other gastrointestinal disorders (20 sources) Irritable bowel syndrome with diarrhea; Translations: [Irritable bowel syndrome] Onset: 3 11-07-2022 Chronic Other gastrointestinal disorders (10 sources) Non-infective diarrhea; Translations: [Other specified intestinal malabsorption] Onset: 3 05-15-2023 Chronic Other gastrointestinal disorders (11 sources) Malabsorption syndrome; Translations: [Intestinal malabsorption, unspecified] Chronic Other gastrointestinal disorders (17 sources) Intestinal malabsorption; Translations: [Intestinal malabsorption, unspecified] Onset: 3 Chronic Other gastrointestinal disorders (5 sources) Intestinal malabsorption, unspecified; Translations: [Diarrhea due to malabsorption] Onset: 2 Resolved: 2 Chronic Other gastrointestinal disorders (1 source) Diarrhea; Translations: [Intestinal malabsorption, unspecified] Chronic Other gastrointestinal disorders (16 sources) Bacterial overgrowth syndrome ; Translations: [Other specified disorders of intestine] Episodic Other gastrointestinal disorders (11 sources) Small bowel bacterial overgrowth syndrome; Translations: [Other specified disorders of intestine] Episodic Other gastrointestinal disorders (8 sources) H/O: GIT by-pass; Translations: [Bariatric surgery status] Episodic Other gastrointestinal disorders (6 sources) Constipation; Translations: [Constipation, unspecified] Episodic Other gastrointestinal disorders (8 sources) Bariatric surgery status; Translations: [S/P gastric bypass] Onset: 2 Resolved: 2 Episodic Other gastrointestinal disorders (7 sources) Abdominal bloating; Translations: [Abdominal distension (gaseous)] Onset: 2 Episodic Other gastrointestinal disorders (9 sources) History of bypass of stomach; Translations: [Bariatric surgery status] Onset: 2 Episodic Other gastrointestinal disorders (10 sources) Diarrhea; Translations: [Diarrhea, unspecified] Onset: 2 Episodic Other gastrointestinal disorders (5 sources) Diarrhea, unspecified; Translations: [Diarrhea due to malabsorption] Onset: 2 Episodic Other gastrointestinal disorders (2 sources) Abdominal distension (gaseous); Translations: [Abdominal bloating with cramps] Onset: 2 Episodic Other gastrointestinal disorders (2 sources) Full incontinence of feces; Translations: [Full incontinence of feces] Onset: 5 Episodic Other hereditary and degenerative nervous system conditions (19 sources) Impaired cognition; Translations: [Mild cognitive impairment, so stated] 10-17-2021 Chronic Other hereditary and degenerative nervous system conditions (5 sources) Mild cognitive impairment, so stated; Translations: [Mild cognitive impairment, so stated] Chronic Other nervous system disorders (5 sources) Neuropathy; Translations: [Hereditary and idiopathic neuropathy, unspecified] Onset: 4 03-01-2024 Chronic Other nervous system disorders (5 sources) Cervical myelopathy; Translations: [Disease of spinal cord, unspecified] Onset: 3 03-01-2024 Chronic Other nervous system disorders (5 sources) Paresthesia of lower extremity; Translations: [Anesthesia of skin] Onset: 4 03-01-2024 Episodic Other nutritional; endocrine; and metabolic disorders (8 sources) Hypocalcemia; Translations: [Hypocalcemia] Onset: 2 07-12-2021 Chronic Other nutritional; endocrine; and metabolic disorders (15 sources) Morbid obesity; Translations: [Morbid obesity] Onset: 3 11-07-2022 Chronic Other nutritional; endocrine; and metabolic disorders (15 sources) Hypoalbuminemia; Translations: [Other disorders of plasma-protein metabolism, not elsewhere classified] Onset: 2 11-07-2022 Chronic Other upper respiratory disease (15 sources) Allergic rhinitis; Translations: [Allergic rhinitis, unspecified] Onset: 1 Chronic Janki-; endo-; and myocarditis; cardiomyopathy (except that caused by tuberculosis or sexually transmitted disease) (8 sources) Heart valve disorder; Translations: [Endocarditis, valve unspecified] Onset: 3 Chronic Prolapse of female genital organs (13 sources) Midline cystocele; Translations: [Cystocele, midline] Onset: 0 01-21-2020 Chronic Pulmonary heart disease (1 source) Other pulmonary embolism without acute cor pulmonale; Translations: [Other pulmonary embolism without acute cor pulmonale] Onset: 5 Episodic Residual codes; unclassified (6 sources) Localized edema; Translations: [Edema] Episodic Residual codes; unclassified (5 sources) Amnesia; Translations: [Other amnesia] 11-16-2022 Episodic Residual codes; unclassified (1 source) Other amnesia; Translations: [Memory loss] 11-14-2022 Episodic Schizophrenia and other psychotic disorders (8 sources) Psychotic disorder; Translations: [Unspecified psychosis not due to a substance or known physiological condition] Onset: 1 Chronic Superficial injury; contusion (8 sources) Contusion of chest; Translations: [Contusion of unspecified front wall of thorax, initial encounter] Onset: 4 02-03-2024 Episodic Urinary tract infections (18 sources) Acute cystitis; Translations: [Acute cystitis without hematuria] Onset: 1 Episodic Past or Other Problems Problem Classification Problem Date Documented Da te Episodic/Chronic Abdominal hernia (20 sources) Hiatal hernia; Translations: [Diaphragmatic hernia without mention of obstruction or gangrene] Onset: 3 10-17-2021 Episodic Anal and rectal conditions (13 sources) Rectal prolapse; Translations: [Rectal prolapse] Onset: 0 12-02-2019 Episodic Biliary tract disease (15 sources) Biliary calculus; Translations: [Cholelithiasis] Onset: 3 11-07-2022 Episodic Conditions associated with dizziness or vertigo (1 source) Dizziness and giddiness; Translations: [Dizziness and giddiness] Onset: 5 Episodic Deficiency and other anemia (20 sources) Iron deficiency anemia; Translations: [Iron deficiency anemia, unspecified] Onset: 3 11-07-2022 Episodic Deficiency and other anemia (3 sources) Anemia, unspecified; Translations: [Anemia, unspecified] Onset: 2 Resolved: 2 Episodic Fluid and electrolyte disorders (15 sources) Hyponatremia; Translations: [Hypo-osmolality and hyponatremia] Onset: 2 07-09-2021 Episodic Hemorrhoids (20 sources) Thrombosed external hemorrhoids; Translations: [External thrombosed hemorrhoids] Onset: 3 11-07-2022 Episodic Malaise and fatigue (20 sources) Fatigue; Translations: [Other fatigue] Onset: 3 Episodic Nutritional deficiencies (4 sources) Deficiency of other specified B group vitamins; Translations: [Cobalamin deficiency] Onset: 2 Resolved: 2 Episodic Other circulatory disease (14 sources) Carotid bruit; Translations: [Other specified symptoms and signs involving the circulatory and respiratory systems] Onset: 2 11-07-2022 Episodic Other connective tissue disease (20 sources) Bursitis; Translations: [Other bursitis] Onset: 3 11-07-2022 Episodic Other connective tissue disease (1 source) Other specified soft tissue disorders; Translations: [Other specified soft tissue disorders] Onset: 5 Episodic Other diseases of veins and lymphatics (13 sources) Peripheral venous insufficiency; Translations: [Venous insufficiency (chronic) (peripheral)] Onset: 5 03-06-2005 Episodic Other gastrointestinal disorders (9 sources) Incontinence of feces; Translations: [Full incontinence of feces] Onset: 3 02-10-2023 Episodic Other gastrointestinal disorders (2 sources) Fecal urgency; Translations: [Fecal urgency] Onset: 4 Episodic Other injuries and conditions due to external causes (8 sources) History of fall; Translations: [History of falling] Onset: 2 07-11-2021 Episodic Other lower respiratory disease (13 sources) Disorder of lung; Translations: [Other disorders of lung] Onset: 8 09-24-2007 Episodic Other nervous system disorders (8 sources) Metabolic encephalopathy; Translations: [Metabolic encephalopathy] Onset: 2 Resolved: 3 07-11-2021 Chronic Other nervous system disorders (8 sources) Impaired cognition; Translations: [Other symptoms and signs involving cognitive functions and awareness] Onset: 2 07-12-2021 Episodic Other non-traumatic joint disorders (20 sources) Anterior knee pain; Translations: [Pain in left knee] Onset: 3 11-07-2022 Episodic Other non-traumatic joint disorders (1 source) Pain in right hip; Translations: [Pain in right hip] Onset: 4 Episodic Other screening for suspected conditions (not mental disorders or infectious disease) (20 sources) Ultrasonography of breast abnormal; Translations: [Other abnormal and inconclusive findings on diagnostic imaging of breast] Onset: 3 Episodic Other skin disorders (20 sources) Skin lesion; Translations: [Disorder of the skin and subcutaneous tissue, unspecified] Onset: 3 11-07-2022 Episodic Residual codes; unclassified (8 sources) Delirium; Translations: [Disorientation, unspecified] Onset: 1 Resolved: 3 Episodic Residual codes; unclassified (20 sources) Edema of lower extremity; Translations: [Localized edema] Onset: 2 11-07-2022 Episodic Residual codes; unclassified (9 sources) History of delirium; Translations: [Personal history of other specified conditions] Onset: 2 11-12-2021 Episodic Residual codes; unclassified (1 source) Disorientation, unspecified; Translations: [Disorientation, unspecified] Onset: 4 Episodic Unclassified (19 sources) H/O: gastrointestinal disease; Translations: [History of change in bowel patterns] 10-17-2021 Unclassified (13 sources) history excision melanoma forehead 12-20-2021 Results Test Name Value Interpretation Reference [facility] Order Number [id number] Normal [facility] Comment on above: Order Comment: P-Tau 217 Performed By: #### 9 [id number] #### [address] [address] LC Test Name Phosphorylates obn250 Normal A [facility] Comment on above: Order Comment: P-Tau 217 Performed By: #### 9 [id number] #### [address] [address] [facility] 02-11-2025 [facility] Test Result COMMENT Normal [facility] Comment on above: Order Comment: P-Tau 217 Result Comment: Test Ordered: [id number] [id number] 0.30 [H ] pg/mL L9 Reference Range: 0.00-0.18 This test was developed and its performance characteristics determined by [facility]. It has not been cleared or approved by the Food and Drug Administration. Clinical cutoff value was established using samples from a patient cohort characterized with amyloid PET data. A p-ppj120 value of >0.18 is a reported surrogate marker for beta amyloid pathology, and can be used to facilitate biological identification of Alzheimer's disease (1). p-xbo492 has also been used in clinical trials to monitor patients on anti-amyloid therapy (2,3). Test performed by [employer] chemiluminescent enzyme immunoassay (CLEIA). Values obtained with different methods cannot be used interchangeably. The validated limit of quantification is 0.06 pg/mL. Assay detection limit is 0.03 pg/mL. Footnotes Comment L9 1. Singh Mi et al. Diagnostic Accuracy of a Plasma Phosphorylated Tau 217 Immunoassay for Alzheimer Disease Pathology. RACHAEL neurology (2023). 2. Singh Mi et al. Differential roles of A42/40, p-vtt526 and p-wtm055 for Alzheimer's trial selection and disease monitoring. Nature medicine 28.12 (2021): 4672-1086. 3. Anyi MUÑOZ, Soraya M, Andrés SC, et al. Association of Donanemab Treatment With Exploratory Plasma Biomarkers in Early Symptomatic Alzheimer Disease: A Secondary Analysis of the TRAILBLAZER-ALZ Randomized Clinical Trial. RACHAEL Neurol. 2021;79(12):8129-9710. Performed At: [facility] [id number] Sophia Sigala PhD Ph:[phone] Performed At: [facility] [address] [place] [id number] eLvy Jack MD Ph:[phone] Performed By: #### 9 [address]1521 #### [address] [address] .GFRon 02-08-2025 Estimated Glomerular Filtration Rate 58 ml/min/1.73sqm Normal [facility] Comment on above: Result Comment: Stages of Chronic Kidney Disease (CKD) Stage Description eGFR(ml/min/1.73 sq.m.) CKD 1 Normal kidney function or >=90 normal kindney function with possible kidney damage (ex. Proteinuria) CKD 2 Kidney damage with mild loss 60-89 of kidney function CKD 3a Mild to moderate loss of kidney 45-59 function CKD 3b Moderate to severe loss of 30-44 of kindey function CKD 4 Severe loss of kidney function 15-29 CKD 5 Kidney failure <15 Note: (go live 2024) the eGFR calculation was updated to the 2020 CKD-EPI creatinine equation without a race factor to calculate the eGFR results. Performed By: #### T SH, GFR, FT4, BMP #### [address] [address] #### B12 #### [place] [address] B12on 02-08-2025 Cobalamin (Vitamin B12) [Mass/Vol] 1773 pg/mL High 211-911 [facility] Comment on above: Performed By: #### T SH, GFR, FT4, BMP #### [address] [address] #### B12 #### [address] [address] BMPon 02-08-2025 BUN/Creatinine Ratio 45 ratio High 7-27 [facility] Comment on above: Performed By: #### T SH, GFR, FT4, BMP #### [address] [address] #### B12 #### [address] [address] Calcium [Mass/Vol] 9.1 mg/dL Normal 8.4-10.2 [facility] Comment on above: Performed By: #### T SH, GFR, FT4, BMP #### [address] [address] #### B12 #### [address] [address] Chloride [Moles/Vol] 105 mmol/L Normal 98-107 [facility] Comment on above: Performed By: #### T SH, GFR, FT4, BMP #### [place] [address] #### B12 #### [address] [address] CO2 [Moles/Vol] 27 mmol/L Normal 23-31 [facility] Comment on above: Performed By: #### T SH, GFR, FT4, BMP #### [address] [address] #### B12 #### [address] [address] Creatinine [Mass/Vol] 1.00 mg/dL High 0.51-0.95 [facility] Comment on above: Performed By: #### T SH, GFR, FT4, BMP #### [address] [address] #### B12 #### [address] [address] Electrolyte Balance 10.0 mEq/L Normal 4.0-15.0 [facility] Comment on above: Performed By: #### T SH, GFR, FT4, BMP #### [address] [address] #### B12 #### [address] [address] Glucose [Mass/Vol] 100 mg/dL Normal 83-110 [facility] Comment on above: Performed By: #### T SH, GFR, FT4, BMP #### [place] [address] #### B12 #### [address] [address] Potassium [Moles/Vol] 4.4 mmol/L Normal 3.5-5.1 [facility] Comment on above: Performed By: #### T SH, GFR, FT4, BMP #### [place] [address] #### B12 #### [place] [address] Sodium [Moles/Vol] 142 mmol/L Normal 136-145 [facility] Comment on above: Performed By: #### T SH, GFR, FT4, BMP #### [place] [address] #### B12 #### [place] [address] Urea nitrogen [Mass/Vol] 45 mg/dL High 7-18 [facility] Comment on above: Performed By: #### T SH, GFR, FT4, BMP #### [place] [address] #### B12 #### [address] [address] FT4on 02-08-2025 Free T4 [Mass/Vol] 0.66 ng/dL Low 0.76-1.46 [facility] Comment on above: Performed By: #### T SH, GFR, FT4, BMP #### [place] [address] #### B12 #### [place] [address] LABORATORYOrdered By: SYSTEM SYSTEM on 02-08-2025 Calcium [Mass/Vol] 9.1 mg/dL Normal 8.4 - 10. 2 mg/dL AO ADM SS Chloride [Moles/Vol] 105 mmol/L Normal 98 - 10 7 mmol/L AO ADM SS CO2 [Moles/Vol] 27 mmol/L Normal 23 - 31 mmol/L AO ADM SS Cobalamin (Vitamin B12) [Mass/Vol] 1773 pg/mL High 211 - 911 pg/mL AH ADM SS Creatinine [Mass/Vol] 1.00 mg/dL High 0.51 - 0.95 mg/dL AO ADM SS Electrolyte Balance 10.0 mEq/L Normal 4.0 - 15 .0 mEq/L AO ADM SS Estimated Glomerular Filtration Rate 58 ml/min/1.73sqm Invalid Interpretation Code AO Chemistry S Comment on above: Interpretive Data: Stages of Chronic Kidney Disease (CKD) Stage Description eGFR(ml/min/1.73 sq.m.) CKD 1 Normal kidney function or >=90 normal kindney function with possible kidney damage (ex. Proteinuria) CKD 2 Kidney damage with mild loss 60-89 of kidney function CKD 3a Mild to moderate loss of kidney 45-59 function CKD 3b Moderate to severe loss of 30-44 of kindey function CKD 4 Severe loss of kidney function 15-29 CKD 5 Kidney failure <15 Note: (go live 2024) the eGFR calculation was updated to the 2020 CKD-EPI creatinine equation without a race factor to calculate the eGFR results. Free T4 [Mass/Vol] 0.66 ng/dL Low 0.76 - 1.46 ng/dL AO ADM SS Glucose [Mass/Vol] 100 mg/dL Normal 83 - 110 mg/dL AO ADM SS Potassium [Moles/Vol] 4.4 mmol/L Normal 3.5 - 5.1 mmol/L AO ADM SS Sodium [Moles/Vol] 142 mmol/L Normal 136 - 145 mmol/L AO ADM SS TSH Qn 0.53 m[IU]/L Normal 0.36 - 3.74 mcIU/mL AO ADM SS Urea nitrogen [Mass/Vol] 45 mg/dL High 7 - 18 mg/dL AO ADM SS Urea nitrogen/Creatinine [Mass ratio] 45 ratio High 7 - 27 ratio AO ADM SS TSHon 02-08-2025 TSH Qn 0.53 m[IU]/L Normal 0.36-3.74 [facility] Comment on above: Performed By: #### T SH, GFR, FT4, BMP #### [facility] [address] [place], [place] [address] #### B12 #### [facility] [address] [place] [address] Office Visit Reporton 2024 Office Visit Report [facility] [address] [place] [address] OFFICE VISIT Date of Service: 02/02/25 MR#: [id number] Acct: [id number] Patient: MADELYN LOVE Rep #: [id number] : 1945 Provider: Dr. Hazel Richardson i, MD Age/Sex: 79/F Location[facility] Status: Signed Intake Vital Signs 01/26/25 14:56 Height 4 ft 8 in Weight: 138 lb BMI 30.9 BP 147/76 H Pulse 80 Intake Visit Reasons: axonics f/u Chief Complaint: UDS results Allergies Corticosteroids (Glucocorticoids) Adverse Reaction (Severe, Verified 01/26/25 14:54) Other NSAIDS (Non-Steroidal Anti-Inflamma Adverse Reaction (Severe, Verified 01/26/25 14:54) Other Have you fallen in the past year?: No Nursing Note Patient met with Mary Laureano rep. The unit has been turned off for about a month now. Sridevi turned it back on and patient's [employer] is now working correctly. Clinical Quality Measures Falls Risk Screening/Assistive Devices Have you fallen in the past year?: No 02/13/252104 Date Hazel Cordova Signature: Date (if applicable) CC: Normal [facility] Abdomen Single Viewon 2024 Abdomen Single View [facility] [address] [place] [address] Abdomen Single View MR#: [id number] Acct: [id number] Name: AMDELYN LOVE Rep #: [id number] : 1945 F 79 From: Tavares Gómez PCP: Dr. Hugo Julio MD Status: REG CLI Study: Abdomen Single View Date of Exam: 01/26/25 Exam# [id number] Ordering Dr: Hazel Dupree MD PROCEDURE: ABDOMEN SINGLE VIEW 01/26/2025 REASON FOR EXAM: URGE INCONTINENCE TECHNIQUE: Two-view supine abdomen COMPARISON: Abdomen study of 11/04/2018 RAD/Abdomen Single View IMPRESSION: Prominent arterial calcification is noted. Spinal neurostimulator seen with tip projecting at the T10 level. A right pelvic neurostimulator is also seen. 2 screws are seen across the right sacroiliac joint. Multiple abdominal surgical clips are again seen. Advanced degenerative changes of the visualized thoracolumbar spine has progressive 2019. Lumbar dextroscoliosis is again seen. Mild bilateral hip joint degenerative changes are noted. Healed or healing fractures bilateral superior and inferior rami. Air and stool are seen throughout the large bowel and rectum, including numerous small bowel loops, without definite small bowel dilation seen. This is a nonspecific bowel-gas pattern. No mass or mass effect is noted. Reading Location: [place] [address] CC: Dr. Hugo Julio MD; Dr. Hazel Dupree MD Center Lead Consultant: Signed Normal [facility] MR/BMS.Romy 01-14-2025 MR/BMSSEAN [facility] [address] [facility] [address], [address] [place] [id number] OFFICE VISIT Date of Service: 01/14/25 MR#: [id number] Acct: [id number] Name: MADELYN LOVE Rep #: [id number] : 1945 Provider: Dr. Hazel Richardson i, MD Age/Sex: 79/F Location[place] [facility] Status: Signed Intake Vital Signs 10/22/24 06:59 01/06/25 15:11 01/14/25 14:14 Height 4 ft 8 in 4 ft 8 in 4 ft 8 in Weight: 138 lb BMI 30.9 BP 134/82 H Pulse 70 Temp 98 F Intake Visit Reasons: UDS 2 Chief Complaint: UDS 2 [employer] Supervisor Required: No Is patient in pain?: No Allergies Corticosteroids (Glucocorticoids) Adverse Reaction (Severe, Verified 01/26/25 14:54) Other NSAIDS (Non-Steroidal Anti-Inflamma Adverse Reaction (Severe, Verified 01/26/25 14:54) Other Medications ???Medication ???Instructions ???Recorded ???Confirmed ???Type lactobacillus combination no.8 3 3,000 mmu cells PO DAILY 11/24/18 01/26/25 History billion cell capsule (Adult Probiotic) pantoprazole 40 mg tablet,delayed 40 mg PO DAILY 02/03/20 01/26/25 History release gabapentin 300 mg capsule 300 mg PO TID 04/27/24 01/26/25 Hi story melatonin 3 mg capsule 3 mg PO BID 05/19/24 01/26/25 Hist ory oxycodone 7.5 mg tablet,oral ONLY 7.5 mg PO BID PRN pain 05/19/24 0 01/26/25 History (not for feeding tubes) mirabegron 25 mg tablet,extended 25 mg PO QDAY 06/08/24 01/26/25 Hi story release 24 hr (Myrbetriq) carvedilol 25 mg tablet 6.25 mg PO BID 07/01/24 01/26/25 H istory furosemide 20 mg tablet (Lasix) 40 mg PO QAM 07/01/24 01/26/25 His tory apixaban 5 mg tablet (Eliquis) 5 mg PO BID 10/12/24 01/26/25 Hist ory losartan 100 mg tablet 100 mg PO QHS 10/12/24 01/26/25 Hi story acetaminophen 500 mg capsule 500 mg PO Q4H PRN 10/21/24 5 History calcium 250 mg-magnesium 40 mg-D3 1 tab PO BID 10/21/24 01/26/25 Hi story 125 unit-zinc 3.65wx-qsx-dbxd tablet (Calcium Citrate Plus) carbamazepine 100 mg 100 mg PO BID 10/21/24 01/26/25 Hi story capsule,extended release ddvjlt94wh (Carbatrol) cholestyramine 4 gram oral powder 4 g PO QDAY 10/21/24 01/26/25 His tory for suspension in a packet finerenone 10 mg tablet (Kerendia) 10 mg PO QDAY 10/21/24 01/26/25 History ohvrhtgj-vakcbqns-yiwh 45 mg-folic 1 cap PO .QD 10/21/24 01/26/25 H istory acid 800 mcg-vit K 120 mcg capsule (Bariatric Multivitamins) methenamine hippurate 1 gram tablet 1 g PO BID 10/22/24 01/26/25 Hi story jxxonp-frjjspcg-pztyida 2 cap PO .COMPLEX #900 caps 01/26/25 Rx 40,000-126,000-168,000 unit capsule, delay rel (Zenpep) cholecalciferol (vitamin D3) 1,250 1,250 mcg PO .QD 01/06/25 History mcg (50,000 unit) capsule Have you fallen in the past year?: No Nurse's Note: Patient was unable to hold urine after she had a strong desire to void. [facility] Medical History (Updated 02/10/25 @ 12:[address] Hazel Dupree MD) Vaginal atrophy Vaginal vault prolapse after hysterectomy Frequency of urination Cystocele, midline Nocturia Overactive bladder Presence of upper and lower permanent dental bridges Wears hearing aid Cancer Bruising History of renal disease Bladder disease Pulmonary embolism Gastric reflux History of echocardiogram Cardiology follow-up encounter Urge incontinence of urine Candidiasis of female genitalia Peritoneal free air Breast mass, right Nonrheumatic aortic (valve) stenosis Lower extremity edema Essential hypertension Wears glasses Post-menopausal Abrasion Walker as ambulation aid Easy bruising Back pain History of IBS Non-smoker History of pain when walking History of edema Mild cognitive impairment Low sodium levels Steroid-induced psychosis Cystocele Heel spur Vitamin deficiency Skin cancer GERD (gastroesophageal reflux disease) Osteoporosis Osteoarthritis Kidney stones Kidney disease IBS (irritable bowel syndrome) Gout Gallstones Breast lump Bone fracture UTI (urinary tract infection) Abnormal ultrasound of breast Skin lesion Constipation Diarrhea Arthritis History of back problems Diabetes History of change in bowel patterns Hiatal hernia Surgical History S/P insertion of spinal cord stimulator History of left heart catheterization History of open reduction and internal fixation (ORIF) procedure History of cardiac catheterization (2009) Hx of spinal fusion Hx of surgical procedure Hx of surgical procedure Hx laparoscopic cholecystectomy Hx of hysterectomy Hx of colonoscopy History of bursectomy H/O laminectomy Hx of cataract surgery H/O gastric bypass S/P vaginopexy History of repair of rectocele history excision melanoma forehead History of bilate (more content not included)... Normal [facility] Inital Evaluation (1) - PTon 01-13-2025 Inital Evaluation (1) - PT [facility] Physical Therapy [facility] [address] [place] [address] / REHABILITATION SERVICES INITIAL EVALUATION MR#: [id number] Acct: [id number] Name: MADELYN LOVE Rep #: [id number] : 1945 79 From: Kourtney Storm Referring Dr.: LOUIS Jimenez Status: R EG RCR Insurance: MEDICARE PART A B [facility] Patient's Visit Information Visit Information Visit Information: MADELYN LOVE is a 79 year old F referred to Physical Therapy by LOUIS Jimenez with a diagnosis of Full incontinence of feces R15.9. Date of Evaluation: 01/13/25 Physical Therapist: Kourtney Storm Visit Plan Frequency: 1x/Week Duration: 3 Months Plan: Madelyn would benefit from skilled PT intervention to address her pelvic floor concerns and incontinence of her bowel and bladder. Next visit we will do a pelvic floor exam as time did not allow a thorough examination today. We will also likely address her right lumbar pain in our sessions as that may be contributing to some of her pain and decreased control. Subjective Subjective: She is dealing with urinary and bowel incontinence for the last 1-2 years. They put a stimulator in in July to help with bladder and bowel incontinence. With the stimulator, she seems to have a little more time to get there. If she is home, she can get to the bathroom a little easier without as much leakage since the stimulator . Stimulator has helped lessen the urgency a little but overall no significant changes with stimulator. In the morning, she always has to zarate to the bathroom. She is usually leaking urine mixed with bowel. Bowel is pudding consistency. She stands up and she starts to pull up her pants and it comes again. She has urine that comes really quickly after going to the restroom. Explosion of diarrhea at times. She usually has a normal bowel movement in afternoon and the rest of the day she is usually good. Spasm and pain with a bowel movement but used to be much worse. As she is going she feels a pain when her rectum is expanding. She would rate that pain 5/10. She has leaking randomly thru the day and she doesn't even know it. 6-10 pads a day. She uses Depends and pads. At night she can sleep till 1:00 and then she gets up around 5-5:30 with the urination. Sometimes she can feel the urge and other times she doesn't feel it as much. She is keeping a bladder/bowel log for Dr. Dupree. She feels pain in the right lumbar. Ache and sometimes it is a sharp ache. She has been doing PT for endurance and balance. She has had back issues for several years. Spinal cord stimulator (2 1/2 years ago) has worked great. Dr. Dupree going to do a urodynamics test. Microdecompression 2018 L2-S1, Bursectomy in hip , vaginal anterior and posterior repair 2015, vaginal an rectocele repair 2015, rectal prolapse 2019, cystocele She walks with a walker. She wants to get more control of her urine. She has done PT in the past for pelvic floor. Pain Low back: Pain Intensity (Out of 10): 5 rectal: Pain Intensity (Out of 10): 5 Objective Objective: Right rotation T10-L4 Tight and tender right T/L junction , tender right piriformis Will perform pelvic floor eval next visit POPDI-6 4, CRAD-8 8, DIRK-6 4 Goals Goal 1:: Sandros pad use will decrease from 6-10 a day to 2-3 a day as evidenced by fewer incontinence episodes. Goal Time Frame: 8-12 Weeks Goal 2:: Madelyn will be able to delay using the restroom by 5 min to allow for her to get to the restroom without leaking. Goal Time Frame: 8-12 Weeks Goal 3:: Madelyn's back pain will be 50% less during activities around her home such as standing and walking. Goal Time Frame: 8-12 Weeks Goal 4:: Madelyn will not experience any bowel incontinence in the morning when first getting out of bed and walking to the restroom. Goal Time Frame: 8-12 Weeks Rehabilitation Potential Physical Therapy Diagnosis: Mixed incontinence , R15.9 Rehabilitation Potential: Fair Anticipated Interventions Patient/Client Instruction: Educate patient on: Condition For the Purpose of:: To improve muscle performance and motor function, To improve ability to perform ADL's, To improve health and function, To improve self management and To improve tolerance to ADL's Therapeutic Exercise to Include: Strength training For the Purpose of:: To improve muscle performance and motor function, To improve health and function and To improve self management Manual Therapy Techniques to Include: Trigger point massage and Soft tissue mobilization For the Purpose of:: To decrease pain, To improve muscle performance and motor function, To improve ability to perform ADL's, To improve health and function, To improve self management and To improve tolerance to ADL's Text: Thank you for the op (more content not included)... Normal [facility] Gastroenterology Visit Repor ton 01-06-2025 Gastroenterology Visit Report [facility] [address] [place] [address] OFFICE VISIT Date of Service: 01/06/25 MR#: [id number] Acct: [id number] Name: MADELYN LOVE Rep #: [id number] : 1945 Provider: LOUIS slaughter Age/Sex: 79/F Location: [facility] [facility] Status: Signed Intake Vital Signs 10/22/24 06:59 01/06/25 15:11 Height 4 ft 8 in 4 ft 8 in Weight: 139 lb 131 lb BMI 31.1 29.3 BP 133/76 H 144/70 H Blood Pressure Location Lt brachial Position Sitting Respiration 18 16 Pulse 78 79 Pulse Source Monitor Temp 975 F H Temp Source Temporal Pulse Oximetry (%) 95 96 Oxygen Delivery Method room air Intake Visit Reasons: WANTS TO DISCUSS BIOPSIES Chief Complaint: diarrhea Allergies Corticosteroids (Glucocorticoids) Adverse Reaction (Severe, Verified 01/06/25 15:02) Other NSAIDS (Non-Steroidal Anti-Inflamma Adverse Reaction (Severe, Verified 01/06/25 15:02) Other Medications ???Medication ???Instructions ???Recorded ???Confirmed ???Type lactobacillus combination no.8 3 3,000 mmu cells PO DAILY 11/24/18 01/06/25 History billion cell capsule (Adult Probiotic) pantoprazole 40 mg tablet,delayed 40 mg PO DAILY 02/03/20 01/06/25 History release gabapentin 300 mg capsule 300 mg PO TID 04/27/24 01/06/25 Hi story melatonin 3 mg capsule 3 mg PO BID 05/19/24 01/06/25 Hist ory oxycodone 7.5 mg tablet,oral ONLY 7.5 mg PO BID PRN pain 05/19/24 0 01/06/25 History (not for feeding tubes) mirabegron 25 mg tablet,extended 25 mg PO QDAY 06/08/24 01/06/25 Hi story release 24 hr (Myrbetriq) carvedilol 25 mg tablet 6.25 mg PO BID 07/01/24 01/06/25 H istory furosemide 20 mg tablet (Lasix) 40 mg PO QAM 07/01/24 01/06/25 His tory apixaban 5 mg tablet (Eliquis) 5 mg PO BID 10/12/24 01/06/25 Hist ory losartan 100 mg tablet 100 mg PO QHS 10/12/24 01/06/25 Hi story acetaminophen 500 mg capsule 500 mg PO Q4H PRN 10/21/24 5 History calcium 250 mg-magnesium 40 mg-D3 1 tab PO BID 10/21/24 01/06/25 Hi story 125 unit-zinc 3.43bo-xdj-jbpb tablet (Calcium Citrate Plus) carbamazepine 100 mg 100 mg PO BID 10/21/24 01/06/25 Hi story capsule,extended release nocfde40sg (Carbatrol) cholestyramine 4 gram oral powder 4 g PO QDAY 10/21/24 01/06/25 His tory for suspension in a packet finerenone 10 mg tablet (Kerendia) 10 mg PO QDAY 10/21/24 01/06/25 History ukdqytim-twnafimi-hhlu 45 mg-folic 1 cap PO .QD 10/21/24 01/06/25 H istory acid 800 mcg-vit K 120 mcg capsule (Bariatric Multivitamins) methenamine hippurate 1 gram tablet 1 g PO BID 10/22/24 01/06/25 Hi story brhqrc-ylegsemt-sqlrdzz 2 cap PO .COMPLEX #900 caps 01/06/25 Rx 40,000-126,000-168,000 unit capsule, delay rel (Zenpep) cholecalciferol (vitamin D3) 1,250 1,250 mcg PO .QD 01/06/25 History mcg (50,000 unit) capsule Have you fallen in the past year?: No Nurse's Note: She is feeling some better. The bowels aren't coming as much but they are still coming so fast. [facility] Medical History Presence of upper and lower permanent dental bridges Wears hearing aid Cancer Bruising History of renal disease Bladder disease Pulmonary embolism Gastric reflux History of echocardiogram Cardiology follow-up encounter Urge incontinence of urine Candidiasis of female genitalia Peritoneal free air Breast mass, right Nonrheumatic aortic (valve) stenosis Lower extremity edema Essential hypertension Wears glasses Post-menopausal Abrasion Walker as ambulation aid Easy bruising Back pain History of IBS Non-smoker History of pain when walking History of edema Mild cognitive impairment Low sodium levels Steroid-induced psychosis Cystocele Heel spur Vitamin deficiency Skin cancer GERD (gastroesophageal reflux disease) Osteoporosis Osteoarthritis Kidney stones Kidney disease IBS (irritable bowel syndrome) Gout Gallstones Breast lump Bone fracture UTI (urinary tract infection) Abnormal ultrasound of breast Skin lesion Constipation Diarrhea Arthritis History of back problems Diabetes History of change in bowel patterns Hiatal hernia Surgical History S/P insertion of spinal cord stimulator History of left heart catheterization History of open reduction and internal fixation (ORIF) procedure History of cardiac catheterization (2009) Hx of spinal fusion Hx of surgical procedure Hx of surgical procedure Hx laparoscopic cholecystectomy Hx of hysterectomy Hx of colonoscopy History of bursectomy H/O laminectomy Hx of cataract surgery H/O gastric bypass S/P vaginopexy History of repair of (more content not included)... Normal [facility] Microalb:Creat Ratio,Random URon 11-10-2024 Creatinine [Mass/Vol] 17.90 mg/dL Low 28.00- 217. 00 [facility] Comment on above: Performed By: #### L 501.1800, L500.2500, L506.1000, L509.1000 #### [facility] Laboratory [address] [place], [address] MALB:CREAT UNABLE TO CALCULATE Normal [facility] Comment on above: Performed By: #### L 501.1800, L500.2500, L506.1000, L509.1000 #### [facility] Laboratory [address] [place], [address] MICROALBUMIN,UR < 12.0 Normal NO RANGE EST. [facility] Comment on above: Performed By: #### L 501.1800, L500.2500, L506.1000, L509.1000 #### [facility] Laboratory [address] [place], [address] Renal Profileon 11-10-2024 Albumin [Mass/Vol] 3.6 g/dL Normal 3.4-4.8 [facility] Comment on above: Performed By: #### L 501.1800, L500.2500, L506.1000, L509.1000 #### [facility] Laboratory [address] [place], [address] BUN/CRE 43.7 RATIO High 10-20 [facility] Comment on above: Performed By: #### L 501.1800, L500.2500, L506.1000, L509.1000 #### [facility] Laboratory [address] [place], [address] Calcium [Mass/Vol] 9.2 mg/dL Normal 7.6-11.0 [facility] Comment on above: Performed By: #### L 501.1800, L500.2500, L506.1000, L509.1000 #### [facility] Laboratory [address] [place], [address] Chloride [Moles/Vol] 104 mmol/L Normal 98-108 [facility] Comment on above: Performed By: #### L 501.1800, L500.2500, L506.1000, L509.1000 #### [facility] Laboratory [address] [place], [address] CO2 [Moles/Vol] 24.0 mmol/L Normal 21.0-32.0 [facility] Comment on above: Performed By: #### L 501.1800, L500.2500, L506.1000, L509.1000 #### [facility] Laboratory [address] [place], [address] Creatinine [Mass/Vol] 0.82 mg/dL Normal 0.70-1.20 [facility] Comment on above: Performed By: #### L 501.1800, L500.2500, L506.1000, L509.1000 #### [facility] [address] [place], [address] GAP 11 Normal 5-15 [facility] Comment on above: Performed By: #### L 501.1800, L500.2500, L506.1000, L509.1000 #### [facility] [address] [place], [address] GFR/1.73 sq M.predicted among non-blacks MDRD (S/P/Bld) [Vol rate/Area] 73 mL/min/{1.73_m2} Normal >60 [facility] Comment on above: Result Comment: mL/m in/1.73m2 CKD-EPI Creatinine Equation (2020) Performed By: #### L 501.1800, L500.2500, L506.1000, L509.1000 #### [facility] [address] [place], [address] Glucose [Mass/Vol] 96 mg/dL Normal 70-99 [facility] Comment on above: Performed By: #### L 501.1800, L500.2500, L506.1000, L509.1000 #### [facility] Laboratory [address] [place], [address] Phosphate [Mass/Vol] 4.3 mg/dL Normal 2.7-4.5 [facility] Comment on above: Performed By: #### L 501.1800, L500.2500, L506.1000, L509.1000 #### [facility] [address] [place], [address] Potassium [Moles/Vol] 4.6 mmol/L Normal 3.3-5.1 [facility] Comment on above: Performed By: #### L 501.1800, L500.2500, L506.1000, L509.1000 #### [facility] [address] [place], [address] Sodium [Moles/Vol] 139 mmol/L Normal 133-145 [facility] Comment on above: Performed By: #### L 501.1800, L500.2500, L506.1000, L509.1000 #### [facility] [address] [place], [address] Urea nitrogen [Mass/Vol] 36 mg/dL High 4-19 [facility] Comment on above: Performed By: #### L 501.1800, L500.2500, L506.1000, L509.1000 #### [facility] Laboratory [address] [place], [address] Gastroenterology Visit Repor ton 11-02-2024 Gastroenterology Visit Report [facility] Gastroenterology [address] [place] [address] OFFICE VISIT Date of Service: 11/02/24 MR#: [id number] Acct: [id number] Name: MADELYN LOVE Rep #: [id number] : 1945 Provider: LOUIS slaughter Age/Sex: 79/F Location: [facility] [place] Status: Signed Intake Vital Signs 06/08/24 12:43 05/23/25 06:59 11/02/24 15:27 Height 4 ft 8 in 4 ft 8 in BP 148/71 H Respiration 16 Pulse 84 Pulse Oximetry (%) 94 Oxygen Delivery Method room air Intake Visit Reasons: Test Result Chief Complaint: diarrhea [employer] Supervisor Required: No Accompanied by: Is patient in pain?: No Allergies Corticosteroids (Glucocorticoids) Adverse Reaction (Severe, Verified 11/02/24 15:25) Other NSAIDS (Non-Steroidal Anti-Inflamma Adverse Reaction (Severe, Verified 11/02/24 15:25) Other Medications ???Medication ???Instructions ???Recorded ???Confirmed ???Type lactobacillus combination no.8 3 3,000 mmu cells PO DAILY 11/24/18 11/02/24 History billion cell capsule (Adult Probiotic) pantoprazole 40 mg tablet,delayed 40 mg PO DAILY 02/03/20 11/02/24 History release gabapentin 300 mg capsule 300 mg PO TID 04/27/24 11/02/24 Hi story melatonin 3 mg capsule 3 mg PO BID 05/19/24 11/02/24 Hist ory oxycodone 7.5 mg tablet,oral ONLY 7.5 mg PO BID PRN pain 05/19/24 0 11/02/24 History (not for feeding tubes) mirabegron 25 mg tablet,extended 25 mg PO QDAY 06/08/24 11/02/24 Hi story release 24 hr (Myrbetriq) carvedilol 25 mg tablet 6.25 mg PO BID 07/01/24 11/02/24 H istory furosemide 20 mg tablet (Lasix) 40 mg PO QAM 07/01/24 11/02/24 His tory apixaban 5 mg tablet (Eliquis) 5 mg PO BID 10/12/24 11/02/24 Hist ory losartan 100 mg tablet 100 mg PO QHS 10/12/24 11/02/24 Hi story acetaminophen 500 mg capsule 500 mg PO Q4H PRN 10/21/24 5 History calcium 250 mg-magnesium 40 mg-D3 1 tab PO BID 10/21/24 11/02/24 Hi story 125 unit-zinc 3.68jh-cnz-nzlw tablet (Calcium Citrate Plus) carbamazepine 100 mg 100 mg PO BID 10/21/24 11/02/24 Hi story capsule,extended release mjnlic19oh (Carbatrol) cholecalciferol (vitamin D3) 1,250 1,250 mcg PO QWEEK 10/21/2408/24 History mcg (50,000 unit) capsule cholestyramine 4 gram oral powder 4 g PO QDAY 10/21/24 11/02/24 His tory for suspension in a packet finerenone 10 mg tablet (Kerendia) 10 mg PO QDAY 10/21/24 11/02/24 History mjpxunve-uyxevdws-gcej 45 mg-folic 1 cap PO .QD 10/21/24 11/02/24 H istory acid 800 mcg-vit K 120 mcg capsule (Bariatric Multivitamins) sodium chloride 1,000 mg soluble 1,000 mg PO BID PRN 10/21/2411/02 History tablet methenamine hippurate 1 gram tablet 1 g PO BID 10/22/24 11/02/24 Hi story Have you fallen in the past year?: Yes PFSH Medical History Presence of upper and lower permanent dental bridges Wears hearing aid Cancer Bruising History of renal disease Bladder disease Pulmonary embolism Gastric reflux History of echocardiogram Cardiology follow-up encounter Urge incontinence of urine Candidiasis of female genitalia Peritoneal free air Breast mass, right Nonrheumatic aortic (valve) stenosis Lower extremity edema Essential hypertension Wears glasses Post-menopausal Abrasion Walker as ambulation aid Easy bruising Back pain History of IBS Non-smoker History of pain when walking History of edema Mild cognitive impairment Low sodium levels Steroid-induced psychosis Cystocele Heel spur Vitamin deficiency Skin cancer GERD (gastroesophageal reflux disease) Osteoporosis Osteoarthritis Kidney stones Kidney disease IBS (irritable bowel syndrome) Gout Gallstones Breast lump Bone fracture UTI (urinary tract infection) Abnormal ultrasound of breast Skin lesion Constipation Diarrhea Arthritis History of back problems Diabetes History of change in bowel patterns Hiatal hernia Surgical History S/P insertion of spinal cord stimulator History of left heart catheterization History of open reduction and internal fixation (ORIF) procedure History of cardiac catheterization (2009) Hx of spinal fusion Hx of surgical procedure Hx of surgical procedure Hx laparoscopic cholecystectomy Hx of hysterectomy Hx of colonoscopy History of bursectomy H/O laminectomy Hx of cataract surgery H/O gastric bypass S/P vaginopexy History of repair of rectocele history excision melanoma forehead History of bilateral knee replacement Family History Grandfather Arthritis Colon cancer Liver disease Grandmother Arthritis Hypertension Anemia (more content not included)... Normal [facility] Cardiology Visit Reporton Cardiology Visit Report [facility] [address] [place] [address] OFFICE VISIT Date of Service: 10/22/24 MR#: [id number] Acct: [id number] Name: MADELYN LOVE Rep #: [id number] : 1945 Provider: WALLY Nazario Age/Sex: 79/F [place] [facility] Status: Signed HPI HPI History of Present Illness Details: Madelyn Love is a 79-year-old lady who presents to the office today for a cardiovascular follow up visit. She has a history of labile hypertension and pedal edema. She did undergo a cardiac catheterization in 2011 in [place] prior to gastric bypass surgery. She also had an echocardiogram which had demonstrated preserved left ventricular systolic function. Because of her labile blood pressure she had been on blood pressure medication as well as diuretics which caused her to be hyponatremic. She was weaned off the diuretic and her symptoms have improved significantly. She did have an echocardiogram performed in 2018 in [place] which demonstrated preserved ejection fraction of 55% and moderate mitral regurgitation. Pt was diagnosed with a PE while she was in [place]. This was one week after she flew to [place]. She does see a hay rake operator there. She has seen Dr. Julio. She has not had any chest pain/heaviness. She does not have any worsening SOB. She has not had any syncope, lightheadedness. She does have some swelling in her legs. She is seeing a lymphedema specialist in [place]. Intake Vital Signs 10/14/24 06:47 10/22/24 06:59 Height 4 ft 8 in 4 ft 8 in Weight: 139 lb BMI 31.1 BP 133/76 H Blood Pressure Location Lt brachial Position Sitting Respiration 18 Pulse 78 Pulse Source Monitor Pulse Oximetry (%) 95 Intake Visit Reasons: 6 M FU [employer] Supervisor Required: No Is patient in pain?: No Allergies Corticosteroids (Glucocorticoids) Adverse Reaction (Severe, Verified 10/22/24 10:07) Other NSAIDS (Non-Steroidal Anti-Inflamma Adverse Reaction (Severe, Verified 10/22/24 10:07) Other Medications ???Medication ???Instructions ???Recorded ???Confirmed ???Type lactobacillus combination no.8 3 3,000 mmu cells PO DAILY 11/24/18 10/22/24 History billion cell capsule (Adult Probiotic) pantoprazole 40 mg tablet,delayed 40 mg PO DAILY 02/03/20 10/22/24 History release gabapentin 300 mg capsule 300 mg PO TID 04/27/24 10/22/24 Hi story melatonin 3 mg capsule 3 mg PO BID 05/19/24 10/22/24 Hist ory oxycodone 7.5 mg tablet,oral ONLY 7.5 mg PO BID PRN pain 05/19/24 0 10/22/24 History (not for feeding tubes) mirabegron 25 mg tablet,extended 25 mg PO QDAY 06/08/24 10/22/24 Hi story release 24 hr (Myrbetriq) carvedilol 25 mg tablet 6.25 mg PO BID 07/01/24 10/22/24 H istory furosemide 20 mg tablet (Lasix) 40 mg PO QAM 07/01/24 10/22/24 His tory apixaban 5 mg tablet (Eliquis) 5 mg PO BID 10/12/24 10/22/24 Hist ory losartan 100 mg tablet 100 mg PO QHS 10/12/24 10/22/24 Hi story acetaminophen 500 mg capsule 500 mg PO Q4H PRN 10/21/24 5 History calcium 250 mg-magnesium 40 mg-D3 1 tab PO BID 10/21/24 10/22/24 Hi story 125 unit-zinc 3.62sx-dck-pglb tablet (Calcium Citrate Plus) carbamazepine 100 mg 100 mg PO BID 10/21/24 10/22/24 Hi story capsule,extended release ogtvkh47vg (Carbatrol) cholecalciferol (vitamin D3) 1,250 1,250 mcg PO QWEEK 10/21/2410/01 History mcg (50,000 unit) capsule cholestyramine 4 gram oral powder 4 g PO QDAY 10/21/24 10/22/24 His tory for suspension in a packet finerenone 10 mg tablet (Kerendia) 10 mg PO QDAY 10/21/24 10/22/24 History ketoconazole 2 % topical cream 1 applic topical BID 10/21/2410/01 History metronidazole 250 mg tablet 250 mg PO TID PRN 10/21/24 5 History xwnegmoa-ztnmjmwf-dfch 45 mg-folic 1 cap PO .QD 10/21/24 10/22/24 H istory acid 800 mcg-vit K 120 mcg capsule (Bariatric Multivitamins) sodium chloride 1,000 mg soluble 1,000 mg PO BID PRN 10/21/2410/22 History tablet methenamine hippurate 1 gram tablet 1 g PO BID 10/22/24 10/22/24 Hi story Ejection fraction %: 55 Have you fallen in the past year?: No PFSH Medical History (Updated 10/22/24 @ 10:29 by Mary LO, [place]) Presence of upper and lower permanent dental bridges Wears hearing aid Cancer Bruising History of renal disease Bladder disease Pulmonary embolism Gastric reflux History of echocardiogram Cardiology follow-up encounter Urge incontinence of urine Candidiasis of female genitalia Peritoneal free air Breast mass, right Nonrheumatic aortic (valve) stenosis Lower extremity edema Essential hypertension Wears glasses Post-menopausal Abrasion Walker as ambulation aid Easy bruising Back pain History of IBS Non-smoker H (more content not included)... Normal [facility] Bedside Glucoseon 10-14-2024 FINGERSTICK GLU 100 mg/dL Normal 74-106 [facility] Comment on above: Result Comment: HAILEY PALMER OF PATIENT CARE PER NURSING PROTOCOL Performed By: #### L 501.1800, L500.2500, L506.1000, L509.1000 #### [facility] Laboratory [address] [place], [address] Colonoscopy Reporton 025 Colonoscopy Report [facility] Medical Records Department [address] [place] [address] Colonoscopy Report MR#: [id number] Acct: [id number] Name: MADELYN LOVE #: [id number] : 1945 79 From: Herman Ochoa DO PCP: Dr. Hugo Julio MD [place] [facility] [place] Patient Name: Madelyn Love Procedure Date: 10/14/2024 7:21 AM Date of : 1945 Age: 79 Procedure: Colonoscopy Indications: Hematochezia Providers: Herman Ochoa DO Referring MD: Hugo Julio Medicines: Monitored Anesthesia Care Patient Profile: This is a 79 year old female. Refer to note in patient chart for documentation of history and physical. Last Colonoscopy: several years ago. Complications: No immediate complications. Procedure: Pre-Anesthesia Assessment: - Prior to the procedure, a History and Physical was performed, and patient medications and allergies were reviewed. The patient is competent. The risks and benefits of the procedure and the sedation options and risks were discussed with the patient. All questions were answered and informed consent was obtained. Patient identification and proposed procedure were verified by the physician in the pre-procedure area. Mental Status Examination: alert and oriented. Airway Examination: normal oropharyngeal airway and neck mobility. Respiratory Examination: clear to auscultation. CV Examination: normal. Prophylactic Antibiotics: The patient does not require prophylactic antibiotics. Prior Anticoagulants: The patient has taken no anticoagulant or antiplatelet agents except for NSAID medication. ASA Grade Assessment: III - A patient with severe systemic disease. After reviewing the risks and benefits, the patient was deemed in satisfactory condition to undergo the procedure. The anesthesia plan was to use monitored anesthesia care (MAC). Immediately prior to administration of medications, the patient was re-assessed for adequacy to receive sedatives. The heart rate, respiratory rate, oxygen saturations, blood pressure, adequacy of pulmonary ventilation, and response to care were monitored throughout the procedure. The physical status of the patient was re-assessed after the procedure. After I obtained informed consent, the scope was passed under direct vision. Throughout the procedure, the patient's blood pressure, pulse, and oxygen saturations were monitored continuously. The Colonoscope was introduced through the anus and advanced to the cecum, identified by appendiceal orifice and ileocecal valve. The colonoscopy was performed without difficulty. The patient tolerated the procedure well. The quality of the bowel preparation was adequate. The ileocecal valve, appendiceal orifice, and rectum were photographed. Scope In: 7:31:51 AM Scope Withdrawal Time 0 hours 10 minutes 27 seconds Scope Out: 7:51:33 AM Total Procedure Duration Time 0 hours 19 minutes 42 seconds Findings: The perianal and digital rectal examinations were normal. Non-bleeding external and internal hemorrhoids were found during retroflexion. The hemorrhoids were Grade II (internal hemorrhoids that prolapse but reduce spontaneously). Mild rectal prolapse was present. Scattered small and large-mouthed diverticula were found in the recto-sigmoid colon, sigmoid colon, descending colon, splenic flexure and ascending colon. Impression: - Non-bleeding external and internal hemorrhoids. - Rectal prolapse. - Diverticulosis in the recto-sigmoid colon, in the sigmoid colon, in the descending colon, at the splenic flexure and in the ascending colon. - No specimens collected. Recommendation: - Discharge patient to home. - Resume previous diet. - Continue present medications. - Repeat colonoscopy in 5 years for surveillance. Procedure Code(s): --- Professional --- 40248, Colonoscopy, flexible; diagnostic, including collection of specimen(s) by brushing or washing, when performed (separate procedure) CPT copyright 2021 [employer]. All rights reserved. The codes documented in this report are preliminary and upon gas transfer operator review may be revised to meet current compliance requirements. Herman Ochoa DO 10/14/2024 7:59:31 AM This report has been signed electronically. Number of Addenda: 0 Note Initiated On: 10/14/2024 7:21 AM 10/14/24 0759 Date Herman Menesesignamber Signature: Date (if indicated) CC: Dr. Hugo Julio MD; Herman Ochoa DO Date Dictated: 10/14/24 0721 Date Transcribed: Center Lead Consultant: CHUN Signed Normal [facility] MR/POSTOP.Rdaha 10-14-2024 MR/POSTOP.ANE [facility] Medical Records Department [address] [place] [address] Anesthesia Postop Eval I 10/14/24 0759 MR#: [id number] Acct: [id number] Name: MADELYN LOVE Rep #: [id number] : 1945 79 From: Skye Hall PCP: Dr. Hugo Julio MD Status:[facility] Y Race: C Location: [place] [address] Anesthesia: Postop Eval I Current Vital Signs Temperature: 97.4 F Pulse Rate: 64 Blood Pressure: 107/53 Respiratory Rate: 16 Pulse Ox: 99 Oxygen Delivery Method: Room Air Assessment Airway patent: Yes Spontaneous unlabored respirations: Yes Mental status: Awake and Calm nausea: No Vomiting: No Anesthesia Complication: No Fluid Hydration Crystalloid volume administer (ml): 500 Total IV fluid infused: 500 Progress Note Anesthesia document: Postop Eval 1 completed: Yes 10/14/24 0801 Date Skye Cordova Signature: Date CC: Signed Normal [facility] [id number] 10-14-2024 MR/POSTOPAN2 [facility] Medical Records Department [address] [place] [address] Anesthesia Postop Eval II 10/14/24 1050 MR#: [id number] Acct: [id number] Name: MADELYN LOVE Rep #: [id number] : 1945 79 From: Km Morton MD PCP: Dr. Hugo Julio MD Status:[facility] Y Race: C Location: [place] Anesthesia Postop Eval I Sum Postop Eval Completion status Anesthesia document: Postop Eval 1 completed: Yes Anesthesia Postop Eval I Summary Anesthesia Postop Eval I Summary: Anesthesia Postop Eval I: Assessment Summary Airway patent Yes 10/14/24 08:00 [email or web address] Spontaneous unlabored Yes 10/14/24 08:00 [email or web address] respirations Mental status Awake,Calm 10/14/24 08:00 [email or web address] nausea No 10/14/24 08:00 [email or web address] Vomiting No 10/14/24 08:00 [email or web address] Anesthesia Postop Eval I: Fluid Summary Crystalloid volume administer 500 10/14/24 08:00 [email or web address] (ml) Colloids volume administered ( ml) Blood Product volume administered (ml) Total IV fluid infused 500 10/14/24 08:00 [email or web address] Anesthesia Postop Eval I: Summary Notes Anesthesia Complication No 10/14/24 08:00 [email or web address] Anesthesia Complication Comment: Post-operative progress note Anesthesia: Postop Eval II Evaluation Mental status: Awake and Calm Pain Level: 0 nausea: No Vomiting: No Complications Anesthesia Complication: No 10/14/24 1050 Date Km Cordova Signature: Date CC: Signed Normal [facility] Comprehensive Metabolic Prof ilon 10-13-2024 Albumin [Mass/Vol] 3.3 g/dL Low 3.4-4.8 [facility] Comment on above: Performed By: #### L 506.1001, L501.9985, L509.1000, L500.4050, L502.0500 ####[facility] [address] [place], [address] Albumin/Globulin [Mass ratio] 1.3 {ratio} Normal 0.9-2.4 [facility] Comment on above: Performed By: #### L 506.1001, L501.9985, L509.1000, L500.4050, L502.0500 ####[facility] [address] [place], [address] ALK PHOS 66 U/L Normal 35-104 [facility] Comment on above: Performed By: #### L 506.1001, L501.9985, L509.1000, L500.4050, L502.0500 ####[facility] [address] [place], [address] ALT [Catalytic activity/Vol] 14 U/L Normal <=34 [facility] Comment on above: Performed By: #### L 506.1001, L501.9985, L509.1000, L500.4050, L502.0500 ####[facility] [address] [place], [address] AST [Catalytic activity/Vol] 20 U/L Normal <=31 [facility] Comment on above: Performed By: #### L 506.1001, L501.9985, L509.1000, L500.4050, L502.0500 ####[facility] [address] [place], [address] Bilirubin [Mass/Vol] 0.30 mg/dL Normal 0.00-1.30 [facility] Comment on above: Performed By: #### L 506.1001, L501.9985, L509.1000, L500.4050, L502.0500 ####[facility] [address] [place], [address] BUN/CRE 30.7 RATIO High 10-20 [facility] Comment on above: Performed By: #### L 506.1001, L501.9985, L509.1000, L500.4050, L502.0500 ####[facility] [address] [place], [address] Calcium [Mass/Vol] 9.1 mg/dL Normal 7.6-11.0 [facility] Comment on above: Performed By: #### L 506.1001, L501.9985, L509.1000, L500.4050, L502.0500 ####[facility] [address] [place], [address] Chloride [Moles/Vol] 101 mmol/L Normal 98-108 [facility] Comment on above: Performed By: #### L 506.1001, L501.9985, L509.1000, L500.4050, L502.0500 ####[facility] [address] [place], [address] CO2 [Moles/Vol] 25.2 mmol/L Normal 21.0-32.0 [facility] Comment on above: Performed By: #### L 506.1001, L501.9985, L509.1000, L500.4050, L502.0500 ####[facility] [address] [place], [address] Creatinine [Mass/Vol] 0.91 mg/dL Normal 0.70-1.20 [facility] Comment on above: Performed By: #### L 506.1001, L501.9985, L509.1000, L500.4050, L502.0500 ####[facility] [address] [place], [address] GAP 10 Normal 5-15 [facility] Comment on above: Performed By: #### L 506.1001, L501.9985, L509.1000, L500.4050, L502.0500 ####[facility] [address] [place], [address] GFR/1.73 sq M.predicted among non-blacks MDRD (S/P/Bld) [Vol rate/Area] 65 mL/min/{1.73_m2} Normal >60 [facility] Comment on above: Result Comment: mL/m in/1.73m2 CKD-EPI Creatinine Equation (2021) Performed By: #### L 506.1001, L501.9985, L509.1000, L500.4050, L502.0500 ####[facility] [address] [place], [address] Globulin (S) [Mass/Vol] 2.6 g/dL Normal 2.2-4.2 [facility] Comment on above: Performed By: #### L 506.1001, L501.9985, L509.1000, L500.4050, L502.0500 ####[facility] [address] [place], [address] Glucose [Mass/Vol] 93 mg/dL Normal 70-99 [facility] Comment on above: Performed By: #### L 506.1001, L501.9985, L509.1000, L500.4050, L502.0500 ####[facility] [address] [place], [address] Potassium [Moles/Vol] 4.1 mmol/L Normal 3.3-5.1 [facility] Comment on above: Performed By: #### L 506.1001, L501.9985, L509.1000, L500.4050, L502.0500 ####[facility] [address] [place], [address] Sodium [Moles/Vol] 136 mmol/L Normal 133-145 [facility] Comment on above: Performed By: #### L 506.1001, L501.9985, L509.1000, L500.4050, L502.0500 ####[facility] [address] [place], [address] T PROT 5.8 g/dL Low 5.9-8.4 [facility] Comment on above: Performed By: #### L 506.1001, L501.9985, L509.1000, L500.4050, L502.0500 ####[facility] [address] [place], [address] Urea nitrogen [Mass/Vol] 28 mg/dL High 4-19 [facility] Comment on above: Performed By: #### L 506.1001, L501.9985, L509.1000, L500.4050, L502.0500 ####[facility] [address] [place], [address] Hemoglobin A1con 10-13-2024 HbA1c (Bld) [Mass fraction] 6.1 % High <=5.6 [facility] Comment on above: Result Comment: Norm al < 5.7 % Prediabetic 5.7 - 6.4 % Diabetic >or= 6.5 % Please note range changes. Performed By: #### L 506.1001, L501.9985, L509.1000, L500.4050, L502.0500 ####[facility] [address] [place], [address] Microalbumin,Random Urineon 10-13-2024 MICROALBUMIN,UR < 12.0 Normal NO RANGE EST. [facility] Comment on above: Performed By: #### L 506.1001, L501.9985, L509.1000, L500.4050, L502.0500 ####[facility] [address] [place], [address] PTHINon 10-13-2024 PTH 29 pg/mL Normal 11-61 [facility] Comment on above: Performed By: #### L 506.1001, L501.9985, L509.1000, L500.4050, L502.0500 ####[facility] [address] [place], [address] Vitamin D,25 Hydroxyon 10-13 Vitamin D 25-OH 52.8 ng/mL Normal 30-100 [facility] Comment on above: Result Comment: Courtney min D Status Deficiency: <20 ng/mL (50nmol/L) Insufficiency: 20-30 ng/mL (50-75 nmol/L) Sufficiency: 30-100 ng/mL (75-250 nmol/L) Toxicity: >100 ng/mL (>250 nmol/L) Performed By: #### L 506.1001, L501.9985, L509.1000, L500.4050, L502.0500 ####[facility] [address] [place], [address] MR/PAT.ANE 10-12-2024 MR/PAT.ANE [facility] Medical Records Department [address] [place] [address] PAT - Anesthesia 10/12/24 1222 MR#: [id number] Acct: [id number] Name: MADELYN LOVE Rep #: [id number] : 1945 79 From: Km Morton MD PCP: Dr. Hugo Julio MD Status[place]PRE [facility] Race: C Location: [place] Pre-Assessment Diagnosis/Proposed Procedure Planned Operative Procedure(s): COLONOSCOPY Anesthesia History Anesthesia History - nurse clinician: Anesthesia History - nurse clinician Hx Hospitalization Yes: 06/2024 [place] LOW 10/12/24 10:53 NA, LOW K, HYPOGLYCEMIA, PE Any Problems With Anesthesia No 10/12/24 10:53 Cholinesterase deficiency No 10/12/24 10:53 You/Your Family Experience No 10/12/24 10:53 fever (hyperthermia) with Relationship Recent Exposure to Contagious No 12/06/21 14:48 Disease Does patient have nerve Yes: WILL BRING REMOTES 10/12/24 10:53 stimulator Patient instructed to have device shut off --Does patient have Pacemaker or ICD? When Was Last Pacemaker Check QUESTION #4 FULL TEXT: You/Your Family Experience fever (hyperthermia) with Anesthesia Last Oral Intake Last Oral intake: Last Oral Intake NPO since Meds taken in AM with sips of water? Meds patient instructed to take am of surgery PONV PONV - nurse clinician: PONV - nurse clinician Female Yes 10/12/24 10:53 HX of Motion Sickness No 10/12/24 10:53 HX of N/V After Surgery No 10/12/24 10:53 Non-Smoker Yes 10/12/24 10:53 Duration of Surgery greater No 10/12/24 10:53 than 60 minutes Number of Risk Factors 2 10/12/24 10:53 PONV Score Moderate Risk 10/12/24 10:53 Height Weight Height Weight: Anesthesia: Height Weight Height 4 ft 8 in 06/08/24 12:43 Respiratory Assessment Respiratory Assessment - nurse clinician: Respiratory Tract Infection Hx - nurse clinician Hx Respiratory Tract Infection No 10/12/24 10:53 STOP Sleep Apnea STOP Sleep Apnea - nurse clinician: STOP Sleep Apnea - nurse clinician Hx Hypertension Yes 10/12/24 10:53 Hx Sleep Apnea No 10/12/24 10:53 CPAP Yes: not used after gastric 12/06/21 14:48 bypass 2013 BIPAP No 12/06/21 14:48 Do you snore loudly (louder No 10/12/24 10:53 than talking or can be heard Do you often feel tired/ No 10/12/24 10:53 fatigued/ sleepy during daytime? Has anyone observed you stop No 10/12/24 10:53 breathing during sleep? STOP Results Negative 10/12/24 10:53 QUESTION #5 FULL TEXT : Do you snore loudly (louder than talking or can be heard through closed doors)? 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 Specify any problems Hx of Preganancy in last 3 No 10/12/24 10:53 Months Nurse Filling Out Transfusion [facility] 10/12/24 10:53 Questions: Date: 10/12/24 10/12/24 10:53 Time: 11:09 10/12/24 10:53 Patient unable to answer at this time (ie. confused, unrespo /Reproduction History /Reproductive History - nurse clinician: /Reproductive Hx- nurse clinician Hx Now No 10/12/24 10:53 Gestational Age (in weeks): EDC: Hx Hx Para [facility] History Presence of upper and lower permanent dental bridges Wears hearing aid Cancer Bruising History of renal disease Bladder disease Pulmonary embolism Gastric reflux History of echocardiogram Cardiology follow-up encounter Urge incontinence of urine Candidiasis of female genitalia Peritoneal free air Breast mass, right Nonrheumatic aortic (valve) stenosis Lower extremity edema Essential hypertension Wears glasses Post-menopausal Abrasion Walker as ambulation aid Easy bruising Back pain History of IBS Non-smoker History of pain when walking History of edema Mild cognitive impairment Low sodium levels Steroid-induced psychosis Cystocele Heel spur Vitamin deficiency Skin cancer GERD (gastroesophageal reflux disease) Osteoporosis (more content not included)... Normal [facility] Albumin, Serumon 06-08-2024 Albumin [Mass/Vol] 2.5 g/dL Low 3.2-5.0 [facility] Comment on above: Order Comment: BENIGNO Tapia ADD ALB TO BLOOD DRAWN 06/04/24 PER Performed By: #### L 501.1800, L500.2500, L506.1000, L509.1000 #### [facility] Laboratory [address] [place], [address] Gastroenterology Visit Repor ton 06-08-2024 Gastroenterology Visit Report [facility] [address] [place] [address] OFFICE VISIT Date of Service: 06/08/24 MR#: [id number] Acct: [id number] Name: MADELYN LOVE Rep #: [id number] : 1945 Provider: LOUIS slaughter Age/Sex: 78/F Location: [facility] Status: Signed Intake Vital Signs 05/19/24 11:06 06/08/24 12:43 Height 4 ft 8 in 4 ft 8 in Weight: 147 lb BMI 32.9 BP 114/69 Respiration 18 Pulse 72 Pulse Oximetry (%) 93 Intake Visit Reasons: 2 W FU Chief Complaint: diarrhea [employer] Supervisor Required: No Accompanied by: Is patient in pain?: No Allergies Corticosteroids (Glucocorticoids) Adverse Reaction (Severe, Verified 05/03/24 13:08) Other NSAIDS (Non-Steroidal Anti-Inflamma Adverse Reaction (Severe, Verified 05/03/24 13:08) Other Medications ???Medication ???Instructions ???Recorded ???Confirmed ???Type lactobacillus combination no.8 3 3,000 mmu cells PO DAILY 11/24/18 05/19/24 History billion cell capsule (Adult Probiotic) pantoprazole 40 mg tablet,delayed 40 mg PO DAILY 02/03/20 06/08/24 History release finerenone 10 mg tablet (Kerendia) 10 mg PO DAILY 04/30/22 06/08/24 History dapagliflozin propanediol 10 mg 10 mg PO DAILY 05/09/22 06/08/24 History tablet (Farxiga) calcium citrate 400 mg PO DAILY 11/18/23 06/08/24 History aspirin 81 mg tablet,delayed 81 mg PO QDAY 04/27/24 06/08/24 History release (Adult Low Dose Aspirin) gabapentin 300 mg capsule 300 mg PO TID 04/27/24 06/08/24 History semaglutide 0.25 mg or 0.5 mg (2 0.25 mg subcut QWEEK 04/27/24 06/08/24 History mg/3 mL) subcutaneous pen injector (Ozempic) telmisartan 20 mg tablet 20 mg PO BID 04/27/24 06/08/24 History bariatric bypass fusion PO 05/19/24 06/08/24 History carbamazepine 100 mg 100 mg PO BID 05/19/24 06/08/24 History capsule,extended release [id number] carvedilol 25 mg tablet 12.5 mg PO BID 05/19/24 06/08/24 History denosumab 60 mg/mL subcutaneous 60 mg subcut [id number] 05/19/24 06/08/24 History syringe (Prolia) furosemide 20 mg tablet (Lasix) 20 mg PO QAM 05/19/24 06/08/24 History melatonin 3 mg capsule 3 mg PO BID 05/19/24 06/08/24 History menthol 0.44 %-zinc oxide 20.6 % 1 applic topical 4-6XD PRN 05/19/24 06/08/24 History topical ointment (Calmoseptine) methylcellulose (laxative) 500 mg 1,000 mg PO BID 05/19/24 06/08/24 History tablet (Citrucel) oxycodone 7.5 mg tablet,oral ONLY 7.5 mg PO BID PRN 05/19/24 06/08/24 History (not for feeding tubes) spironolactone 25 mg tablet 25 mg PO QDAY 05/19/24 06/08/24 History mirabegron 25 mg tablet,extended 25 mg PO QDAY 06/08/24 06/08/24 History release 24 hr (Myrbetriq) Have you fallen in the past year?: No Nurse's Note: Some pain related to sitting because of pelvic sores but no abdominal pain. Has been doing better. Every three days has a good soft formed bowel movement but is [place] in color. [facility] Medical History (Updated 06/08/24 @ 20:16 by Jenny Aguirre [employer]ICKER [employer]ATOR[employer]) Urge incontinence of urine Candidiasis of female genitalia Peritoneal free air Breast mass, right Nonrheumatic aortic (valve) stenosis Lower extremity edema Essential hypertension Wears glasses Post-menopausal Abrasion Walker as ambulation aid Easy bruising Back pain History of IBS Non-smoker History of pain when walking History of edema Mild cognitive impairment Low sodium levels Steroid-induced psychosis Cystocele Heel spur Vitamin deficiency Skin cancer GERD (gastroesophageal reflux disease) Osteoporosis Osteoarthritis Kidney stones Kidney disease IBS (irritable bowel syndrome) Gout Gallstones Breast lump Bone fracture UTI (urinary tract infection) Abnormal ultrasound of breast Skin lesion Constipation Diarrhea Arthritis History of back problems Diabetes History of change in bowel patterns Hiatal hernia Surgical History S/P insertion of spinal cord stimulator History of left heart catheterization History of open reduction and internal fixation (ORIF) procedure History of cardiac catheterization (2009) Hx of spinal fusion Hx of surgical procedure Hx of surgical procedure Hx laparoscopic cholecystectomy Hx of hysterectomy Hx of colonoscopy History of bursectomy H/O laminectomy Hx of cataract surgery H/O gastric bypass S/P vaginopexy History of repair of rectocele history excision melanoma forehead History of bilateral knee replacement Family History Grandfather Arthritis Colon cancer Liver disease Grandmother Arthritis Hypertension Anemia Mother Arthritis Osteoporosis Father Hypertension Arthritis Liver disease Sister Arthritis So (more content not included)... Normal [facility] Basic Metabolic Profile (BMP )on 06-04-2024 BUN/CRE 32.8 RATIO High 10-20 [facility] Comment on above: Performed By: #### L 501.1800, L500.2500, L506.1000, L509.1000 #### [facility] Laboratory [address] [place], [address] CA,Total 8.9 mg/dL Normal 8.5-10.1 [facility] Comment on above: Performed By: #### L 501.1800, L500.2500, L506.1000, L509.1000 #### [facility] Laboratory [address] [place], [address] Chloride [Moles/Vol] 103 mmol/L Normal 98-107 [facility] Comment on above: Performed By: #### L 501.1800, L500.2500, L506.1000, L509.1000 #### [facility] Laboratory [address] [place], [address] CO2 [Moles/Vol] 27.0 mmol/L Normal 21.0-32.0 [facility] Comment on above: Performed By: #### L 501.1800, L500.2500, L506.1000, L509.1000 #### [facility] [address] [place], [address] Creatinine [Mass/Vol] 1.31 mg/dL High 0.55-1.02 [facility] Comment on above: Result Comment: The validity of the calculated GFR GFRAA in patients over 70 years has not been determined. Clinical correlation is essential. Performed By: #### L 501.1800, L500.2500, L506.1000, L509.1000 #### [facility] [address] [place], [address] EST GFR - AA 51 mL/min Low >60 [facility] Comment on above: Result Comment: Afri can Danish GFR Calc Performed By: #### L 501.1800, L500.2500, L506.1000, L509.1000 #### [facility] [address] [place], [address] GAP 5 Normal 5-15 [facility] Comment on above: Performed By: #### L 501.1800, L500.2500, L506.1000, L509.1000 #### [facility] [address] [place], [address] GFR/1.73 sq M.predicted among non-blacks MDRD (S/P/Bld) [Vol rate/Area] 42 mL/min/{1.73_m2} Low >60 [facility] Comment on above: Result Comment: Non- GFR Calc Performed By: #### L 501.1800, L500.2500, L506.1000, L509.1000 #### [facility] [address] [place], [address] Glucose [Mass/Vol] 87 mg/dL Normal 74-106 [facility] Comment on above: Performed By: #### L 501.1800, L500.2500, L506.1000, L509.1000 #### [facility] [address] [place], [address] Potassium [Moles/Vol] 4.6 mmol/L Normal 3.5-5.1 [facility] Comment on above: Performed By: #### L 501.1800, L500.2500, L506.1000, L509.1000 #### [facility] [address] [place], [address] Sodium [Moles/Vol] 135 mmol/L Low 136-145 [facility] Comment on above: Performed By: #### L 501.1800, L500.2500, L506.1000, L509.1000 #### [facility] [address] [place], [address] Urea nitrogen [Mass/Vol] 43 mg/dL High - [facility] Comment on above: Performed By: #### L 501.1800, L500.2500, L506.1000, L509.1000 #### [facility] [address] [place], [address] PTHINon 06-04-2024 PTH 23.2 pg/mL Normal 18.4-80.1 [facility] Comment on above: Performed By: #### L 501.1800, L500.2500, L506.1000, L509.1000 #### [facility] [address] [place], [address] Vitamin D,25 Hydroxyon 06-04 Vitamin D 25-OH 76.6 ng/mL Normal [facility] Comment on above: Result Comment: Courtney min D 25(OH) Status Range Deficiency <20 ng/mL (50nmol/L) Insufficiency 20 - 30 ng/mL (50 - 75 nmol/L) Sufficiency 30 - 100 ng/mL (75 - 250 nmol/L) Toxicity >100 ng/mL (>250 nmol/L) Performed By: #### L 501.1800, L500.2500, L506.1000, L509.1000 #### [facility] [address] [place], [address] Basic Metabolic Profile (BMP )on 06-03-2024 BUN Normal 12-17 [facility] Comment on above: Result Comment: UTO Performed By: #### L 501.1800, L500.2500, L506.1000, L509.1000 #### [facility] [address] [place], [address] BUN/CRE Normal - [facility] Comment on above: Result Comment: UTO Performed By: #### L 501.1800, L500.2500, L506.1000, L509.1000 #### [facility] Laboratory [address] [place], [address] CA,Total Normal 8.5-10.1 [facility] Comment on above: Result Comment: UTO Performed By: #### L 501.1800, L500.2500, L506.1000, L509.1000 #### [facility] Laboratory [address] [place], [address] CL Normal 98-107 [facility] Comment on above: Result Comment: UTO Performed By: #### L 501.1800, L500.2500, L506.1000, L509.1000 #### [facility] Laboratory [address] [place], [address] CO2 Normal 21.0-32.0 [facility] Comment on above: Result Comment: UTO Performed By: #### L 501.1800, L500.2500, L506.1000, L509.1000 #### [facility] [address] [place], [address] CREAT,SERUM Normal 0.55-1.02 [facility] Comment on above: Result Comment: UTO Performed By: #### L 501.1800, L500.2500, L506.1000, L509.1000 #### [facility] [address] [place], [address] EST GFR Normal >60 [facility] Comment on above: Result Comment: UTO Performed By: #### L 501.1800, L500.2500, L506.1000, L509.1000 #### [facility] [address] [place], [address] EST GFR - AA Normal >60 [facility] Comment on above: Result Comment: UTO Performed By: #### L 501.1800, L500.2500, L506.1000, L509.1000 #### [facility] [address] [place], [address] GAP Normal 5-15 [facility] Comment on above: Result Comment: UTO Performed By: #### L 501.1800, L500.2500, L506.1000, L509.1000 #### [facility] Laboratory [address] [place], [address] GLU Normal 74-106 [facility] Comment on above: Result Comment: UTO Performed By: #### L 501.1800, L500.2500, L506.1000, L509.1000 #### [facility] [address] [place], [address] Potassium Normal 3.5-5.1 [facility] Comment on above: Result Comment: UTO Performed By: #### L 501.1800, L500.2500, L506.1000, L509.1000 #### [facility] Laboratory [address] [place], [address] Basic Metabolic Profile (BMP) Normal 136-145 [facility] Comment on above: Result Comment: UTO Performed By: #### L 501.1800, L500.2500, L506.1000, L509.1000 #### [facility] Laboratory [address] [place], [address] Ova and Parasites 8623on OP OVA AND PARASITES EX AM, ROUTINE These results were obtained using wet preparation(s) and trichrome stained smear. This test does not include testing for Crytosporidium parvum, Cyclospora, or Microsporidia. One negative specimen does not rule out the possibility of a parasitic infection. TESTING PERFORMED AT [facility]. ORIGINAL REPORT ON FILE IN LAB CONTAINS ADDITIONAL TEST SITE INFORMATION. Ova/Parasite Exam NO OVA, CYSTS, OR PARASITES FOUND. Normal [facility] Comment on above: Performed By: #### L 501.1800, L500.2500, L506.1000, L509.1000 #### [facility] Laboratory [address] [place], [address] Comprehensive Metabolic Prof ilon 05-24-2024 Albumin [Mass/Vol] 2.3 g/dL Low 3.2-5.0 [facility] Comment on above: Order Comment: Inter face Comments: standing Order Date: 05/18/24 Order Info: 0786-1 - CMP standing Performed By: #### L 500.4050 #### [facility] Laboratory [address] [place], [address] Albumin/Globulin [Mass ratio] 0.7 {ratio} Low 0.9-2.4 [facility] Comment on above: Order Comment: Inter face Comments: standing Order Date: 05/18/24 Order Info: 0786-1 - CMP standing Performed By: #### L 500.4050 #### [facility] Laboratory [address] [place], [address] ALK P 110 U/L Normal 45-117 [facility] Comment on above: Order Comment: Inter face Comments: standing Order Date: 05/18/24 Order Info: 0786-1 - CMP standing Performed By: #### L 500.4050 #### [facility] Laboratory [address] [place], [address] ALT [Catalytic activity/Vol] 19 U/L Normal 13-56 [facility] Comment on above: Order Comment: Inter face Comments: standing Order Date: 05/18/24 Order Info: 0786-1 - CMP standing Performed By: #### L 500.4050 #### [facility] Laboratory [address] [place], [address] AST [Catalytic activity/Vol] 18 U/L Normal 15-37 [facility] Comment on above: Order Comment: Inter face Comments: standing Order Date: 05/18/24 Order Info: 0786-1 - CMP standing Performed By: #### L 500.4050 #### [facility] Laboratory [address] [place], [place], [id number] Bilirubin [Mass/Vol] 0.20 mg/dL Normal 0.20-1.00 [facility] Comment on above: Order Comment: Inter face Comments: standing Order Date: 05/18/24 Order Info: 0786-1 - CMP standing Result Comment: For patients on eltrombopag therapy, use of Dimension [place] TBIL is not recommended. Performed By: #### L 500.4050 #### [facility] Laboratory [address] [place], [place], [id number] BUN/CRE 27.6 RATIO High 10-20 [facility] Comment on above: Order Comment: Inter face Comments: standing Order Date: 05/18/24 Order Info: 0786-1 - CMP standing Performed By: #### L 500.4050 #### [facility] Laboratory [address] [place], [address] CA,Total 8.6 mg/dL Normal 8.5-10.1 [facility] Comment on above: Order Comment: Inter face Comments: standing Order Date: 05/18/24 Order Info: 0786-1 - CMP standing Performed By: #### L 500.4050 #### [facility] [address] [place], [address] Chloride [Moles/Vol] 102 mmol/L Normal 98-107 [facility] Comment on above: Order Comment: Inter face Comments: standing Order Date: 05/18/24 Order Info: 0786-1 - CMP standing Performed By: #### L 500.4050 #### [facility] [address] [place], [address] CO2 [Moles/Vol] 32.0 mmol/L Normal 21.0-32.0 [facility] Comment on above: Order Comment: Inter face Comments: standing Order Date: 05/18/24 Order Info: 0786-1 - CMP standing Performed By: #### L 500.4050 #### [facility] Laboratory [address] [place], [place], [id number] Creatinine [Mass/Vol] 1.05 mg/dL High 0.55-1.02 [facility] Comment on above: Order Comment: Inter face Comments: standing Order Date: 05/18/24 Order Info: 86-1 - CMP standing Result Comment: The validity of the calculated GFR GFRAA in patients over 70 years has not been determined. Clinical correlation is essential. Performed By: #### L 500.4050 #### [facility] [address] [place], [place], [id number] EST GFR - AA 65 mL/min Normal >60 [facility] Comment on above: Order Comment: Inter face Comments: standing Order Date: 05/18/24 Order Info: 07-1 - [facility] standing Result Comment: Afri can Danish GFR Calc Performed By: #### L 500.4050 #### [facility] [address] [place], [place], [address] GAP 4 Low 5-15 [facility] Comment on above: Order Comment: Inter face Comments: standing Order Date: 05/18/24 Order Info: 07-1 - CMP standing Performed By: #### L 500.4050 #### [facility] [address] [place], [place], [id number] GFR/1.73 sq M.predicted among non-blacks MDRD (S/P/Bld) [Vol rate/Area] 54 mL/min/{1.73_m2} Low >60 [facility] Comment on above: Order Comment: Inter face Comments: standing Order Date: 05/18/24 Order Info: 0786-1 - CMP standing Result Comment: Non- GFR Calc Performed By: #### L 500.4050 #### [facility] [address] [place], [place], [id number] Globulin (S) [Mass/Vol] 3.1 g/dL Normal 2.2-4.2 [facility] Comment on above: Order Comment: Inter face Comments: standing Order Date: 05/18/24 Order Info: 0786-1 - CMP standing Performed By: #### L 500.4050 #### [facility] [address] [place], [address] Glucose [Mass/Vol] 101 mg/dL Normal 74-106 [facility] Comment on above: Order Comment: Inter face Comments: standing Order Date: 05/18/24 Order Info: 0786-1 - CMP standing Result Comment: Fast ing Glucose result from 100 to 125 mg/dL suggests IMPAIRED HOMEOSTASIS per A.D.A. criteria. Performed By: #### L 500.4050 #### [facility] [address] [place], [address] Potassium [Moles/Vol] 4.5 mmol/L Normal 3.5-5.1 [facility] Comment on above: Order Comment: Inter face Comments: standing Order Date: 05/18/24 Order Info: 0786-1 - CMP standing Performed By: #### L 500.4050 #### [facility] [address] [place], [address] Sodium [Moles/Vol] 138 mmol/L Normal 136-145 [facility] Comment on above: Order Comment: Inter face Comments: standing Order Date: 05/18/24 Order Info: 0786-1 - CMP standing Performed By: #### L 500.4050 #### [facility] Laboratory [address] [place], [address] T PROT 5.4 g/dL Low 6.4-8.2 [facility] Comment on above: Order Comment: Inter face Comments: standing Order Date: 05/18/24 Order Info: 0786-1 - CMP standing Performed By: #### L 500.4050 #### [facility] [address] [place], [address] Urea nitrogen [Mass/Vol] 29 mg/dL High 7-18 [facility] Comment on above: Order Comment: Inter face Comments: standing Order Date: 05/18/24 Order Info: 0786-1 - CMP standing Performed By: #### L [id number] #### [facility] Laboratory [address] [place], [address] Calprotectin, Stoolon [address] 441 ug/g Abnormal 0-120 [facility] Comment on above: Result Comment: Conc entration Interpretation Follow-Up < 5 - 50 ug/g Normal None >50 -120 ug/g Borderline Re-evaluate in 4-6 weeks >120 ug/g Abnormal Repeat as clinically indicated Performed at: [address] [id number] Transport Rn: Joan Ye MD, Phone: [phone] Performed By: #### L 501.1800, L500.2500, L506.1000, L509.1000 #### [facility] [address] [place], [place], [address] Urine Cultureon 05-23-2024 URC Klebsiella pneumonia e sp pneum Tyler Count >100,000 Escherichia coli Escherichia coli Klebsiella pneumoniae sp pneum: REACTION Ampicillin Islt ALAN R Ampicillin+Sulbac Islt ALAN 4 Cefepime Islt ALAN <=0.12 S cefTRIAXone Islt ALAN <=0.25 S Ciprofloxacin Islt ALAN <=0.06 S B-Lactamase Extended Susc Islt NEG Gentamicin Islt ALAN <=1 S levoFLOXacin Islt ALAN <=0.12 S Meropenem Islt ALAN <=0.25 S Nitrofurantoin Islt ALAN 32 S Pip+Tazo Islt ALAN <=4 S TMP SMX Islt ALAN <=20 S Escherichia coli: REACTION Ampicillin Islt ALAN <=2 S Ampicillin+Sulbac Islt ALAN <=2 Cefepime Islt ALAN <=0.12 S cefTRIAXone Islt ALAN <=0.25 S Ciprofloxacin Islt ALAN <=0.06 S B-Lactamase Extended Susc Islt NEG Gentamicin Islt ALAN <=1 S levoFLOXacin Islt ALAN <=0.12 S Meropenem Islt ALAN <=0.25 S Nitrofurantoin Islt ALAN <=16 S Pip+Tazo Islt ALAN <=4 S TMP SMX Islt ALAN <=20 S Normal [facility] Comment on above: Performed By: #### L 501.1800, L500.2500, L506.1000, L509.1000 #### [facility] Laboratory [address] [place], [address] ENTERIC PATHOGEN PANEL STOOL on 05-20-2024 EP PANEL CAMPYLOBACTER Not Detected Norovirus Not Detected Rotavirus Not Detected Salmonella Not Detected Shiga Toxin Not Detected Shigella sp. Not Detected VIBRIO Not Detected Yersinia Not Detected Normal [facility] Comment on above: Performed By: #### L 501.1800, L500.2500, L506.1000, L509.1000 #### [facility] Laboratory [address] [place], [address] Urinalysis, Completeon 05-20 BACTERIA 1+ /hpf Normal None Seen [facility] Comment on above: Order Comment: COLLE CTOR TO SPECIFY Performed By: #### L 501.1800, L500.2500, L506.1000, L509.1000 #### [facility] [address] [place], [address] EPI,SQUAMOUS 0-5 SEEN Normal 5-10 [facility] Comment on above: Order Comment: COLLE CTOR TO SPECIFY Performed By: #### L 501.1800, L500.2500, L506.1000, L509.1000 #### [facility] [address] [place], [address] WBC 10-25 SEEN Normal 0-5 [facility] Comment on above: Order Comment: COLLE CTOR TO SPECIFY Performed By: #### L 501.1800, L500.2500, L506.1000, L509.1000 #### [facility] [address] [place], [address] Mucus Ql (Urine sed) 0 SEEN Normal [facility] Comment on above: Order Comment: COLLE CTOR TO SPECIFY Performed By: #### L 501.1800, L500.2500, L506.1000, L509.1000 #### [facility] [address] [place], [address] RBC 0 SEEN Normal 0-5 [facility] Comment on above: Order Comment: COLLE CTOR TO SPECIFY Performed By: #### L 501.1800, L500.2500, L506.1000, L509.1000 #### [facility] [address] [place], [address] CBC W/Diff, Automatedon 12- Absolute Lymph 1.50 X10 3/uL Normal 0.83-4.51 [facility] Comment on above: Performed By: #### L 501.1800, L500.2500, L506.1000, L509.1000 #### [facility] Laboratory [address] [place], [address] Absolute Neut 4.6 X10 3/uL Normal 2.0-7.7 [facility] Comment on above: Performed By: #### L 501.1800, L500.2500, L506.1000, L509.1000 #### [facility] Laboratory [address] [place], [address] Basophils/100 WBC (Bld) 0.6 % Normal 0-1 [facility] Comment on above: Performed By: #### L 501.1800, L500.2500, L506.1000, L509.1000 #### [facility] Laboratory [address] [place], [address] Eosinophils/100 WBC (Bld) 2.3 % Normal 0-5 [facility] Comment on above: Performed By: #### L 501.1800, L500.2500, L506.1000, L509.1000 #### [facility] Laboratory [address] [place], [address] Erythrocyte distribution width (RBC) [Ratio] 14.8 % High 11.6-14.6 [facility] Comment on above: Performed By: #### L 501.1800, L500.2500, L506.1000, L509.1000 #### [facility] Laboratory [address] [place], [address] Hematocrit (Bld) [Volume fraction] 36.3 % Low 37-47 [facility] Comment on above: Performed By: #### L 501.1800, L500.2500, L506.1000, L509.1000 #### [facility] Laboratory [address] [place], [address] Hemoglobin (Bld) [Mass/Vol] 11.1 g/dL Low 12.0-15.0 [facility] Comment on above: Performed By: #### L 501.1800, L500.2500, L506.1000, L509.1000 #### [facility] [address] [place], [address] IG% 0.300 Normal 0.0-0.9 [facility] Comment on above: Result Comment: IG% - Immature Granulocytes (promyelocytes, myelocytes and metamyelocytes) > 1% indicates that a LEFT SHIFT is Present. Performed By: #### L 501.1800, L500.2500, L506.1000, L509.1000 #### [facility] [address] [place], [address] Lymphocytes/100 WBC (Bld) 21.2 % Normal 19-41 [facility] Comment on above: Performed By: #### L 501.1800, L500.2500, L506.1000, L509.1000 #### [facility] Laboratory [address] [place], [address] MCH (RBC) [Entitic mass] 32.3 pg High 27.0-32.0 [facility] Comment on above: Performed By: #### L 501.1800, L500.2500, L506.1000, L509.1000 #### [facility] Laboratory [address] [place], [address] MCHC (RBC) [Mass/Vol] 30.6 g/dL Low 32-36 [facility] Comment on above: Performed By: #### L 501.1800, L500.2500, L506.1000, L509.1000 #### [facility] Laboratory [address] [place], [address] MCV (RBC) [Entitic vol] 105.5 fL High 81-99 [facility] Comment on above: Performed By: #### L 501.1800, L500.2500, L506.1000, L509.1000 #### [facility] [address] [place], [address] Monocytes/100 WBC (Bld) 9.9 % Normal 0-10 [facility] Comment on above: Performed By: #### L 501.1800, L500.2500, L506.1000, L509.1000 #### [facility] Laboratory [address] [place], [address] Neutrophils/100 WBC (Bld) 65.7 % Normal 47-70 [facility] Comment on above: Performed By: #### L 501.1800, L500.2500, L506.1000, L509.1000 #### [facility] Laboratory [address] [place], [address] Nucleated RBC (Bld) [#/Vol] 0 10*3/uL Normal 0-5 [facility] Comment on above: Performed By: #### L 501.1800, L500.2500, L506.1000, L509.1000 #### [facility] Laboratory [address] [place], [address] Platelet mean volume (Bld) [Entitic vol] 9.1 fL Normal 6.2-12.0 [facility] Comment on above: Performed By: #### L 501.1800, L500.2500, L506.1000, L509.1000 #### [facility] Laboratory [address] [place], [address] Platelets (Bld) [#/Vol] 233 10*3/uL Normal 150-450 [facility] Comment on above: Performed By: #### L 501.1800, L500.2500, L506.1000, L509.1000 #### [facility] [address] [place], [address] RBC (Bld) [#/Vol] 3.44 10*6/uL Low 4.2-5.4 [facility] Comment on above: Performed By: #### L 501.1800, L500.2500, L506.1000, L509.1000 #### [facility] [address] [place], [address] RDW SD 57.2 fl High 35.1-43.9 [facility] Comment on above: Performed By: #### L 501.1800, L500.2500, L506.1000, L509.1000 #### [facility] Laboratory [address] [place], [address] WBC (Bld) [#/Vol] 7.1 10*3/uL Normal 4.4-11.0 [facility] Comment on above: Performed By: #### L 501.1800, L500.2500, L506.1000, L509.1000 #### [facility] [address] [place], [address] Ferritinon 05-19-2024 Ferritin [Mass/Vol] 90 ng/mL Normal 8-252 [facility] Comment on above: Performed By: #### L 501.1800, L500.2500, L506.1000, L509.1000 #### [facility] [address] [place], [address] Gastroenterology Visit Repor ton 05-19-2024 Gastroenterology Visit Report [facility] [address] [place] [address] OFFICE VISIT Date of Service: 05/19/24 MR#: [id number] Acct: [id number] Name: MADELYN LOVE Rep #: [id number] : 1945 Provider: LOUIS slaughter Age/Sex: 78/F [place] [email or web address] Status: Signed Intake Vital Signs 04/27/24 14:34 05/19/24 11:06 Height 4 ft 8 in 4 ft 8 in Weight: 154 lb BMI 34.5 BP 138/81 H Respiration 20 H Pulse 81 Pulse Oximetry (%) 92 Oxygen Delivery Method room air Intake Visit Reasons: Fecal incontinence Chief Complaint: diarrhea [employer] Supervisor Required: No Allergies Corticosteroids (Glucocorticoids) Adverse Reaction (Severe, Verified 05/03/24 13:08) Other NSAIDS (Non-Steroidal Anti-Inflamma Adverse Reaction (Severe, Verified 05/03/24 13:08) Other Medications ???Medication ???Instructions ???Recorded ???Confirmed ???Type lactobacillus combination no.8 3 3,000 mmu cells PO DAILY 11/24/18 05/19/24 History billion cell capsule (Adult Probiotic) pantoprazole 40 mg tablet,delayed 40 mg PO DAILY 02/03/20 05/19/24 History release finerenone 10 mg tablet (Kerendia) 10 mg PO DAILY 04/30/22 05/19/24 History dapagliflozin propanediol 10 mg 10 mg PO DAILY 05/09/22 05/19/24 History tablet (Farxiga) mirabegron 25 mg tablet,extended 25 mg PO DAILY 10/31/22 05/19/24 History release 24 hr (Myrbetriq) calcium citrate 400 mg PO DAILY 11/18/23 05/19/24 History haloperidol 0.5 mg tablet 0.5 mg PO DAILY 11/18/23 05/19/24 History aspirin 81 mg tablet,delayed 81 mg PO QDAY 04/27/24 05/19/24 History release (Adult Low Dose Aspirin) gabapentin 300 mg capsule 300 mg PO TID 04/27/24 05/19/24 History semaglutide 0.25 mg or 0.5 mg (2 0.25 mg subcut QWEEK 04/27/24 05/19/24 History mg/3 mL) subcutaneous pen injector (Ozempic) telmisartan 20 mg tablet 20 mg PO BID 04/27/24 05/19/24 History bariatric bypass fusion PO 05/19/24 History carbamazepine 100 mg 100 mg PO BID 05/19/24 05/19/24 History capsule,extended release [id number] carvedilol 25 mg tablet 12.5 mg PO BID 05/19/24 History cholestyramine-aspartame 4 gram 1 ea PO QDAY 05/19/24 05/19/24 History oral powder for susp in a packet denosumab 60 mg/mL subcutaneous 60 mg subcut [id number] 05/19/24 05/19/24 History syringe (Prolia) diphenhydramine HCl 25 mg tablet 25 mg PO TID PRN 05/19/24 05/19/24 History (Benadryl Allergy) docusate sodium 50 mg capsule 50 mg PO BID 05/19/24 05/19/24 History (Colace Clear) furosemide 20 mg tablet (Lasix) 20 mg PO QAM 05/19/24 05/19/24 History melatonin 3 mg capsule 3 mg PO BID 05/19/24 05/19/24 History menthol 0.44 %-zinc oxide 20.6 % 1 applic topical 4-6XD PRN 05/19/24 05/19/24 History topical ointment (Calmoseptine) methylcellulose (laxative) 500 mg 1,000 mg PO BID 05/19/24 05/19/24 History tablet (Citrucel) oxycodone 7.5 mg tablet,oral ONLY 7.5 mg PO BID PRN 05/19/24 05/19/24 History (not for feeding tubes) potassium gluconate 2.5 mEq tablet 2.5 meq PO QDAY 05/19/24 05/19/24 History spironolactone 25 mg tablet 25 mg PO QDAY 05/19/24 05/19/24 History tramadol 25 mg tablet 50 mg PO Q6H PRN pain 05/19/24 05/19/24 History zoledronic acid 5 mg/100 mL in See Rx Instructions .Route .QYR 05/19/24 05/19/24 History mannitol 5 %-water intravenous piggybck (Reclast) Have you fallen in the past year?: Yes Nurse's Note: Has a history of IBS. Used to see Dr. Stubbs and he wasn't aggressive enough for this. Has frequent diarrhea now and will go on all day long. Appetite has decreased since she started ozempic and weight went down. Bloating and fluid retention has it going back up. [facility] Medical History Urge incontinence of urine Candidiasis of female genitalia Peritoneal free air Breast mass, right Nonrheumatic aortic (valve) stenosis Lower extremity edema Essential hypertension Wears glasses Post-menopausal Abrasion Walker as ambulation aid Easy bruising Back pain History of IBS Non-smoker History of pain when walking History of edema Mild cognitive impairment Low sodium levels Steroid-induced psychosis Cystocele Heel spur Vitamin deficiency Skin cancer GERD (gastroesophageal reflux disease) Osteoporosis Osteoarthritis Kidney stones Kidney disease IBS (irritable bowel syndrome) Gout Gallstones Breast lump Bone fracture UTI (urinary tract infection) Abnormal ultrasound of breast Skin lesion Constipation Diarrhea Arthritis History of back problems Diabetes History of change in bowel patterns Hiatal hernia Surgical History S/P insertion of spinal cord stimulator History of left heart catheterization Hi (more content not included)... Normal [facility] Ironon 05-19-2024 Iron [Mass/Vol] 36 ug/dL Low 50-170 [facility] Comment on above: Performed By: #### L 501.1800, L500.2500, L506.1000, L509.1000 #### [facility] Laboratory [address] [facility] [id number] Iron Binding Capacity,Totalo n 05-19-2024 TIBC 196 ug/dL Low 250-450 [facility] Comment on above: Performed By: #### L 501.1800, L500.2500, L506.1000, L509.1000 #### [facility] Laboratory [address] [facility] [id number] Neurology Visit Reporton Neurology Visit Report [facility] [address] [place], [place] [address] OFFICE VISIT Date of Service: 05/03/24 MR#: [id number] Acct: [id number] Name: MADELYN LOVE Rep #: [id number] : 1945 Provider: Dr. Chris chapman MD Age/Sex: 78/F [place] [facility] [place] Status: Signed [facility] Chief Complaint: Details: Interim History: Madelyn returns for follow-up visit. She has a history of hypertension, congestive heart failure, bariatric surgery in 2012 and diabetes mellitus. In mid she was being treated for persistent sinus symptoms and in December 2020 was treated with an antibiotic and prednisone and 3 days following initiation of prednisone developed a steroid psychosis with confusion, paranoid ideations and disorientation. She was hospitalized and prednisone was discontinued. She was diagnosed with acute delirium and also was found to have a urinary tract infection for which she was treated and her symptoms gradually diminished over a period of 2 months. She had a COVID-19 infection in June 2021 that manifested with sinus drainage and congestion. In July 2021, she developed recurrence of confusion and paranoid ideations and had fatigue and was evaluated at [facility] in [place] and was found to have a serum sodium of 107; her hyponatremia was due to excessive water intake and use of furosemide; furosemide was discontinued and her water intake was reduced. Her hyponatremia improved and her serum sodium in July 2021 was normal. She continued to have some memory difficulty and at one point felt her memory had worsened further since her evaluation in July 2021. She has difficulty recalling whether she has taken her medications. She has a tendency to forget and repeat conversations. She was confused with regard to dates. She also exhibited impulsive behavior and easy irritability. She remains independent in activities such as meal preparation and self-care. Donepezil was initiated in November 2021 and she subsequently has had improvement of her memory however due to gastrointestinal side effect donepezil was discontinued. No further worsening of her memory was noted for a period of time however earlier in 2023 she developed a transient psychosis after taking over the counter allergy medication. She is accompanied by her today. She states that her evaluation for an acute intracranial structural pathology was negative (an official report is presently not available). She was seen by psychiatrist and has been started on haloperidol and was also treated with diphenhydramine; these medications were subsequently discontinued. She has had no further psychosis. Her memory has improved and she has not had any significant memory difficulty within recent months. She has chronic hearing loss and uses hearing aids. She has had some gait imbalance and has used a walker. She has had bilateral knee replacements. She has a history of scoliosis and lumbar arthritis/disc disease. She has chronic low back pain and had 5 lumbar and sacral surgical procedures between 2016 and July 2020. She sees a roller painter. She has been diagnosed with irritable bowel syndrome and small intestine bowel overgrowth for which she has been treated. She has depression and anxiety. She generally sleeps well at night. She has been treated for skin melanoma. She did not require chemotherapy or radiation therapy. Records indicate that she had periods of hyponatremia in years past as well as earlier in 2023. She has fatigue. She has iron deficiency anemia. She takes a multivitamin with iron. Her mother had Alzheimer's disease. Mini-mental status exam score was 27/30 in July 2021, 29/30 in November 2021 (prior to initiation of donepezil), 29/30 in May 2022 (following initiation of donepezil) and 30/30 in October 2022, 30/30 in January 2023, and 29/30 in October 2023. She has had bilateral carotid bruits versus transmitted heart sounds. A carotid ultrasound in October 2023 revealed less than 50% stenosis of the internal carotid arteries bilaterally and antegrade vertebral flow bilaterally. Physical Exam: Neuro: The patient is awake and alert and responds appropriately; mini-mental status exam score is 30/30 Neck: A left carotid bruits auscultated versus transmitted heart sound Heart: Regular rate and rhythm; a cardiac murmur is auscultated (the patient stated that this was previously identified) On prior exam: Bilateral carotid bruits were auscultated Supplemental Info Head CT (01/03/2021): FINDINGS: PARANASAL SINUSES AND MASTOID AIR CELLS: Clear. INTRACRANIAL HEMORRHAGE: None. BRAIN PARENCHYMA: No CT evidence of stroke. No intracranial masses. There is preservation of the huddleston/white matter interface. Posterior fossa structures are unremarkable. There is hypoattenuation of the periventricular white matter. Chronic involutional changes are not (more content not included)... Normal [facility] Cardiology Visit Reporton Cardiology Visit Report [facility] [address] [place] [address] OFFICE VISIT Date of Service: 04/27/24 MR#: [id number] Acct: [id number] Name: MADELYN LOVE Rep #: [id number] : 1945 Provider: WALLY Nazario Age/Sex: 78/F [place] [facility] [place] Status: Signed HPI HPI History of Present Illness Details: Madelyn Love is a 78-year-old lady who presents to the office today for a cardiovascular follow up visit. She has a history of labile hypertension and pedal edema. She did undergo a cardiac catheterization in 2011 in [place] prior to gastric bypass surgery. She also had an echocardiogram which had demonstrated preserved left ventricular systolic function. Because of her labile blood pressure she had been on blood pressure medication as well as diuretics which caused her to be hyponatremic. She was weaned off the diuretic and her symptoms have improved significantly. She did have an echocardiogram performed in 2018 in [place] which demonstrated preserved ejection fraction of 55% and moderate mitral regurgitation. She was having issues with low BP. Her PCP has decreased her medications. She was then in the ER for lightheadedness. She was noted to have low BP readings and then had a UTI. Since decreasing her medications she feel better. Her lightheadedness has resolved. She does not have any CP/heaviness. She does not have any worsening SOB or palpitations. She does not have swelling she does use compression stockings. She stopped her lasix as it was felt that this was related to her dehydration. Intake Vital Signs 01/28/24 10:27 04/24/24 10:06 04/27/24 14:33 04/27/24 14:34 Height 4 ft 8 in 4 ft 8 in 4 ft 8 in 4 ft 8 in Weight: 147 lb BMI 32.9 BP 113/70 Blood Pressure Location Lt brachial Position Sitting Respiration 20 H Pulse 78 Pulse Source Monitor Pulse Oximetry (%) 96 Intake Visit Reasons: 6 M FU [employer] Supervisor Required: No Is patient in pain?: No Allergies Corticosteroids (Glucocorticoids) Adverse Reaction (Severe, Verified 04/27/24 14:34) Other NSAIDS (Non-Steroidal Anti-Inflamma Adverse Reaction (Severe, Verified 04/27/24 14:34) Other Medications ???Medication ???Instructions ???Recorded ???Confirmed ???Type lactobacillus combination no.8 3 3,000 mmu cells PO DAILY 11/24/18 04/27/24 History billion cell capsule (Adult Probiotic) pantoprazole 40 mg tablet,delayed 40 mg PO DAILY 02/03/20 04/27/24 History release finerenone 10 mg tablet (Kerendia) 10 mg PO DAILY 04/30/22 04/27/24 History dapagliflozin propanediol 10 mg 10 mg PO DAILY 05/09/22 04/27/24 History tablet (Farxiga) denosumab 60 mg/mL subcutaneous 60 mg subcut [id number] 10/31/22 04/27/24 History syringe (Prolia) mirabegron 25 mg tablet,extended 25 mg PO DAILY 10/31/22 04/27/24 History release 24 hr (Myrbetriq) calcium citrate 400 mg PO DAILY 11/18/23 04/27/24 History haloperidol 0.5 mg tablet 0.5 mg PO DAILY 11/18/23 04/27/24 History hydralazine 25 mg tablet 25 mg PO ONCE 11/18/23 04/27/24 History methylcellulose (laxative) 500 mg 1,000 mg PO DAILY 11/18/23 04/27/24 History tablet (Citrucel) tramadol 25 mg tablet 25 mg PO Q6H PRN pain 11/18/23 04/27/24 History carvedilol 25 mg tablet 6.25 mg (1/4 x 25 mg) PO BID #60 04/24/24 04/27/24 Rx tabs nitrofurantoin 100 mg PO Q12 #10 CAPSULES 04/26/24 04/27/24 Rx monohydrate/macrocrystals 100 mg capsule aspirin 81 mg tablet,delayed 81 mg PO QDAY 04/27/24 04/27/24 History release (Adult Low Dose Aspirin) gabapentin 300 mg capsule 300 mg PO TID 04/27/24 04/27/24 History melatonin 3 mg capsule 3 mg PO HS PRN 04/27/24 04/27/24 History semaglutide 0.25 mg or 0.5 mg (2 0.25 mg subcut QWEEK 04/27/24 04/27/24 History mg/3 mL) subcutaneous pen injector (Ozempic) telmisartan 20 mg tablet 20 mg PO BID 04/27/24 04/27/24 History Have you fallen in the past year?: No [facility] Medical History Urge incontinence of urine Candidiasis of female genitalia Peritoneal free air Breast mass, right Nonrheumatic aortic (valve) stenosis Lower extremity edema Essential hypertension Wears glasses Post-menopausal Abrasion Walker as ambulation aid Easy bruising Back pain History of IBS Non-smoker History of pain when walking History of edema Mild cognitive impairment Low sodium levels Steroid-induced psychosis Cystocele Heel spur Vitamin deficiency Skin cancer GERD (gastroesophageal reflux disease) Osteoporosis Osteoarthritis Kidney stones Kidney disease IBS (irritable bowel syndrome) Gout Gallstones Breast lump Bone fracture UTI (urinary tract infection) Abnormal ultrasound of breast Skin lesion Constipation Diarrhea (more content not included)... Normal [facility] Comprehensive Metabolic Prof ilon 04-26-2024 Albumin [Mass/Vol] 2.2 g/dL Low 3.2-5.0 [facility] Comment on above: Performed By: #### L 500.4050, L501.9985, L509.1000 #### [facility] Laboratory [address] [place], [address] Albumin/Globulin [Mass ratio] 0.8 {ratio} Low 0.9-2.4 [facility] Comment on above: Performed By: #### L 500.4050, L501.9985, L509.1000 #### [facility] [address] [place], [address] ALK P 108 U/L Normal 45-117 [facility] Comment on above: Performed By: #### L 500.4050, L501.9985, L509.1000 #### [facility] [address] [place], [address] ALT [Catalytic activity/Vol] 17 U/L Normal 13-56 [facility] Comment on above: Performed By: #### L 500.4050, L501.9985, L509.1000 #### [facility] [address] [place], [address] AST [Catalytic activity/Vol] 12 U/L Low 15-37 [facility] Comment on above: Performed By: #### L 500.4050, L501.9985, L509.1000 #### [facility] [address] [place], [address] Bilirubin [Mass/Vol] 0.30 mg/dL Normal 0.20-1.00 [facility] Comment on above: Result Comment: For patients on eltrombopag therapy, use of Dimension [place] TBIL is not recommended. Performed By: #### L 500.4050, L501.9985, L509.1000 #### [facility] [address] [place], [address] BUN/CRE 39.7 RATIO High 10-20 [facility] Comment on above: Performed By: #### L 500.4050, L501.9985, L509.1000 #### [facility] [address] [place], [address] CA,Total 7.7 mg/dL Low 8.5-10.1 [facility] Comment on above: Performed By: #### L 500.4050, L501.9985, L509.1000 #### [facility] [address] [place], [address] Chloride [Moles/Vol] 104 mmol/L Normal 98-107 [facility] Comment on above: Performed By: #### L 500.4050, L501.9985, L509.1000 #### [facility] Laboratory [address] [place], [address] CO2 [Moles/Vol] 25.0 mmol/L Normal 21.0-32.0 [facility] Comment on above: Performed By: #### L 500.4050, L501.9985, L509.1000 #### [facility] Laboratory [address] [place], [address] Creatinine [Mass/Vol] 1.21 mg/dL High 0.55-1.02 [facility] Comment on above: Result Comment: The validity of the calculated GFR GFRAA in patients over 70 years has not been determined. Clinical correlation is essential. Performed By: #### L 500.4050, L501.9985, L509.1000 #### [facility] [address] [place], [address] EST GFR - AA 55 mL/min Low >60 [facility] Comment on above: Result Comment: Afri can Danish GFR Calc Performed By: #### L 500.4050, L501.9985, L509.1000 #### [facility] Laboratory [address] [place], [address] GAP 7 Normal 5-15 [facility] Comment on above: Performed By: #### L 500.4050, L501.9985, L509.1000 #### [facility] [address] [place], [address] GFR/1.73 sq M.predicted among non-blacks MDRD (S/P/Bld) [Vol rate/Area] 46 mL/min/{1.73_m2} Low >60 [facility] Comment on above: Result Comment: Non- GFR Calc Performed By: #### L 500.4050, L501.9985, L509.1000 #### [facility] Laboratory [address] [place], [address] Globulin (S) [Mass/Vol] 2.9 g/dL Normal 2.2-4.2 [facility] Comment on above: Performed By: #### L 500.4050, L501.9985, L509.1000 #### [facility] [address] [place], [address] Glucose [Mass/Vol] 87 mg/dL Normal 74-106 [facility] Comment on above: Performed By: #### L 500.4050, L501.9985, L509.1000 #### [facility] [address] [place], [address] Potassium [Moles/Vol] 3.5 mmol/L Normal 3.5-5.1 [facility] Comment on above: Performed By: #### L 500.4050, L501.9985, L509.1000 #### [facility] [address] [place], [address] Sodium [Moles/Vol] 136 mmol/L Normal 136-145 [facility] Comment on above: Performed By: #### L 500.4050, L501.9985, L509.1000 #### [facility] [address] [place], [address] T PROT 5.1 g/dL Low 6.4-8.2 [facility] Comment on above: Performed By: #### L 500.4050, L501.9985, L509.1000 #### [facility] [address] [place], [address] Urea nitrogen [Mass/Vol] 48 mg/dL High 7-18 [facility] Comment on above: Performed By: #### L 500.4050, L501.9985, L509.1000 #### [facility] [address] [place], [address] Hemoglobin A1con 04-26-2024 HbA1c (Bld) [Mass fraction] 5.4 % Normal 3.8-5.6 [facility] Comment on above: Result Comment: Norm al < 5.7 % Prediabetic 5.7 - 6.4 % Diabetic >or= 6.5 % Please note range changes. Performed By: #### L 500.4050, L501.9985, L509.1000 ####[facility] [address] [place], [address] PTHINon 04-26-2024 PTH 131.8 pg/mL High 18.4-80.1 [facility] Comment on above: Performed By: #### L 500.4050, L501.9985, L509.1000 #### [facility] Laboratory [address] [place], [address] Urine Cultureon 04-26-2024 [facility] RANDOM URINE Klebsiella pneumoniae sp pneum Tyler Count >100,000 Klebsiella pneumoniae sp pneum: REACTION Ampicillin Islt ALAN Ampicillin+Sulbac Islt ALAN 4 S ceFAZolin Islt ALAN <=4 S Cefepime Islt ALAN <=0.12 S cefTRIAXone Islt ALAN <=0.25 S Ciprofloxacin Islt ALAN <=0.25 S B-Lactamase Extended Susc Islt NEG Gentamicin Islt ALAN <=1 S Imipenem Islt ALAN <=0.25 S levoFLOXacin Islt ALAN <=0.12 S Nitrofurantoin Islt ALAN 32 S Pip+Tazo Islt ALAN <=4 S Tobramycin Islt ALNA <=1 S TMP SMX Islt ALAN <=20 S Normal [facility] Comment on above: Performed By: #### M 100.2208 ####[facility] [address] [place], [address] 12 Lead EKGon 04-24-2024 12 Lead EKG [facility] [address] [place] [address] 12 Lead EKG 04/24/24 1030 MR#: [id number] Acct: [id number] Name: MADELYN LOVE Rep #: [id number] : 1945 78 From: Alma Wallace MD Attending Dr: Status: DEP ER Ordering Dr: Bartolome Jimenez MD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 Dysuria 07/11/2021 Edema of lower extremity 10/17/2021 Esophageal reflux 05/07/2006 Essential hypertension, benign 01/05/2021 Fatigue 11/07/2022 GERD (gastroesophageal reflux disease) Heart valve disease 11/07/2022 History of delirium 11/12/2021 History of fall 07/11/2021 Hypoalbuminemia 12/09/2021 Hypocalcemia 07/12/2021 Hyponatremia 07/09/2021 Intestinal malabsorption 11/07/2022 Iron deficiency anemia 11/07/2022 Midline cystocele 01/21/2020 Morbid obesity (HCC) 11/07/2022 Osteoarthritis 01/05/2021 knees and back knees and back Other diseases of lung, not elsewhere classified 09/24/2007 Psychosis ([facility]) 01/04/2021 Secondary hyperparathyroidism ([facility]) 07/12/2021 Skin lesion 11/07/2022 Stage 2 chronic kidney disease 05/14/2017 Steatorrhea 11/07/2022 Thrombosed external hemorrhoids 11/07/2022 Type 2 diabetes mellitus without complication, without long-term current use of insulin ([facility]/HCC) (HCC) 07/12/2021 Urge incontinence 01/21/2020 Urinary tract infectious disease 11/07/2022 Venous (peripheral) insufficiency 03/06/2005 Vitamin D deficiency 10/30/2021 SURGICAL HISTORY Past Surgical History: Procedure Laterality Date SPINAL CORD STIMULATOR IMPLANT 09/03/2021 CURRENT MEDICATIONS Previous Medications ASPIRIN 81 MG EC TABLET Take 81 mg by mouth in the morning and 81 mg in the evening. CALCIUM CITRATE-VITAMIN D (CALCIUM CITRATE + D3) 250-5 MG-MCG TABLET Take 1,200 mg by mouth 3 times daily. CARVEDILOL (COREG) 25 MG TABLET Take 25 mg by mouth in the morning and 25 mg in the evening. Take with meals. DAPAGLIFLOZIN (FARXIGA) 5 MG Take 5 mg by mouth daily. FUROSEMIDE (LASIX) 20 MG TABLET Take 20 mg by mouth daily. GABAPENTIN (NEURONTIN) 300 MG CAPSULE Take 300 mg by mouth 3 times daily. KERENDIA 10 MG TABLET Take 1 tablet by mouth daily. MELATONIN 3 MG TABLET Take 3 mg by mouth. MIRABEGRON ER (MYRBETRIQ) 25 MG 24 HR TABLET Take 25 mg by mouth daily. Do not crush, chew, or split. PANTOPRAZOLE (PROTONIX) 40 MG EC TABLET Take 40 mg by mouth every morning (before breakfast). Do not crush, chew, or split. POTASSIUM 75 MG TABLET Take by mouth. SODIUM CHLORIDE 1 G TABLET Take 1 tablet (1 g) by mouth 2 times daily. TELMISARTAN (MICARDIS) 40 MG TABLET Take 40 mg by mouth in the morning and 40 mg in the evening. Take before meals. ALLERGIES Corticosteroids, Rofecoxib, Mirabegron, Nsaids, and Tramadol FAMILY HISTORY No family history on file. SOCIAL HISTORY Social History Socioeconomic History Marital status: Tobacco Use Smoking status: Never Substance and Sexual Activity Alcohol use: Not Currently Social Determinants of Health Food Insecurity: Low Risk (07/19/2023) Received from [facility] Food Security Within the past 12 months, the food you bought just didn't last and you didn't have money to get more.: 3 Within the past 12 months, you worried that your food would run out before you got money to buy more.: 3 Transportation Needs: Not At Risk (07/19/2023) Received from [employer] (more content not included)... Normal [facility] No Panel InformationOrdered By: Rodolfo Pacheco on 02-03-2024 P [place] 25 degrees [employer] Work Phone: [place] Interval 170 ms [employer] Work Phone: QRS [place] -10 degrees [employer] Phone: QRSD Interval 93 ms [employer] Work Phone: QT Interval 378 ms [employer] Work Phone: QTC Interval 445 ms [employer] Phone: T Wave [place] 42 degrees [employer] Work Phone: [employer] Phone: No Panel Informationon 02-02 Sinus rhythm Electronically Signed On 02-03-2024 23:57:15 EDT by Rodolfo Pacheco CV Rodolfo South MD - 02/03/2024 IMPRESSION: Sinus rhythm Electronically Signed On 02-03-2024 23:57:15 EDT by Rodolfo Pacheco [employer] No acute osseous abnormality. Postsurgical changes. EXAMINATION: PA/Lateral chest INDICATION: trauma FINDINGS: There is no focal consolidation, sizable pleural effusion or pneumothorax. Mild elevation of right hemidiaphragm is present. Cardiac silhouette is enlarged. There is diffuse calcification of the thoracic aorta. There are degenerative changes of the spine. Reversal of the lower thoracic kyphosis. Small osteophytes of the spine are present at multiple levels. Spinal cord stimulator device leads overlie the lower thoracic region. IMPRESSION: Cardiomegaly with diffuse calcification of the aorta. Report Dictated on Electronically Signed By: Alivia Dupree MD Electronically Signed Date/Time: 02/03/2024 7:50 PM EDT [employer] [facility] No Panel InformationOrdered By: Alivia Dupree on 02-03-2024 [employer] Phone: Vital signsOrdered By: Rodolfo anderson on 02-03-2024 Heart rate 84 /min bpm [employer] Phone: XR Chest 2 Viewson Patient Name: MADELYN CABRERA : 1945 Exam Date/Time: 02/03/2024 19:47 Procedure: XR CHEST 2 VIEWS Ordering Provider: ESPINOZA MICHAEL Reason For Exam: trauma EXAMINATION: Right elbow three views INDICATION: trauma FINDINGS: Radial head arthroplasty present without obvious loosening. Small amount of adjacent heterotopic ossification. There is plate and screw fixation along the olecranon and posterior proximal the. Question mild soft tissue swelling. There is diffuse atherosclerosis in the forearm. [facility] Alivia Dupree MD - 02/03/2024 Patient Name: MADELYN LOVE : 1945 Exam Date/Time: 02/03/2024 19:47 Procedure: XR CHEST 2 VIEWS Ordering Provider: ESPINOZA MICHAEL Reason For Exam: trauma EXAMINATION: Right elbow three views INDICATION: trauma FINDINGS: Radial head arthroplasty present without obvious loosening. Small amount of adjacent heterotopic ossification. There is plate and screw fixation along the olecranon and posterior proximal the. Question mild soft tissue swelling. There is diffuse atherosclerosis in the forearm. IMPRESSION: No acute osseous abnormality. Postsurgical changes. EXAMINATION: PA/Lateral chest INDICATION: trauma FINDINGS: There is no focal consolidation, sizable pleural effusion or pneumothorax. Mild elevation of right hemidiaphragm is present. Cardiac silhouette is enlarged. There is diffuse calcification of the thoracic aorta. There are degenerative changes of the spine. Reversal of the lower thoracic kyphosis. Small osteophytes of the spine are present at multiple levels. Spinal cord stimulator device leads overlie the lower thoracic region. IMPRESSION: Cardiomegaly with diffuse calcification of the aorta. Report Dictated on Electronically Signed By: Alivia Dupree MD Electronically Signed Date/Time: 02/03/2024 7:50 PM EDT [facility] Radiology Study observation (narrative) [facility] XR Elbow - right 3 Viewson 0 02-03-2024 Patient Name: MADELYN CABRERA : 1945 Exam Date/Time: 02/03/2024 19:48 Procedure: XR ELBOW 3+ VIEWS RIGHT Ordering Provider: ESPINOZA MICHAEL Reason For Exam: trauma EXAMINATION: Right elbow three views INDICATION: trauma FINDINGS: Radial head arthroplasty present without obvious loosening. Small amount of adjacent heterotopic ossification. There is plate and screw fixation along the olecranon and posterior proximal the. Question mild soft tissue swelling. There is diffuse atherosclerosis in the forearm. [facility] Alivia Dupree MD - 02/03/2024 Patient Name: MADELYN LOVE : 1945 Exam Date/Time: 02/03/2024 19:48 Procedure: XR ELBOW 3+ VIEWS RIGHT Ordering Provider: ESPINOZA MICHAEL Reason For Exam: trauma EXAMINATION: Right elbow three views INDICATION: trauma FINDINGS: Radial head arthroplasty present without obvious loosening. Small amount of adjacent heterotopic ossification. There is plate and screw fixation along the olecranon and posterior proximal the. Question mild soft tissue swelling. There is diffuse atherosclerosis in the forearm. IMPRESSION: No acute osseous abnormality. Postsurgical changes. EXAMINATION: PA/Lateral chest INDICATION: trauma FINDINGS: There is no focal consolidation, sizable pleural effusion or pneumothorax. Mild elevation of right hemidiaphragm is present. Cardiac silhouette is enlarged. There is diffuse calcification of the thoracic aorta. There are degenerative changes of the spine. Reversal of the lower thoracic kyphosis. Small osteophytes of the spine are present at multiple levels. Spinal cord stimulator device leads overlie the lower thoracic region. IMPRESSION: Cardiomegaly with diffuse calcification of the aorta. Report Dictated on Electronically Signed By: Alivia Dupree MD Electronically Signed Date/Time: 02/03/2024 7:50 PM EDT [facility] Radiology Study observation (narrative) [facility] Bacteria identified Cx Nom ( U)Ordered By: Duglas Gruber on 01-24-2024 Interpretation and review of laboratory results Abnormal [facility] IDNon 01-24-2024 IDN Problem: Pain - Adul t Goal: Verbalizes/displays adequate comfort level or baseline comfort level Outcome: Progressing Problem: Safety - Adult Goal: Free from fall injury Outcome: Progressing Problem: Discharge Planning Goal: Discharge to home or other facility with appropriate resources Outcome: Progressing Problem: Chronic Conditions and Co-morbidities Goal: Patient's chronic conditions and co-morbidity symptoms are monitored and maintained or improved Outcome: Progressing Normal [facility] Laboratory - Chemistry and C hemistry - challengeon 01-24-2024 Glucose [Mass/Vol] 150 mg/dL High 70 - 100 mg/dL [facility] Laboratory - Microbiology an d Antimicrobial susceptibilityOrdered By: Duglas Gruber on 01-24-2024 Bacteria identified Cx Nom (U) >100,000 CFU/mL Klebsiella pneumoniae Abnormal [facility] No Panel Informationon 01-23 Interpretation and review of laboratory results Abnormal [facility] Performed by: [facility], [address] [place] [address] CLIA ID: [id number] [facility] Progress Noteon 01-24-2024 Progress Note Nutrition rescreen completed. Chart reviewed. Patient to be monitored and followed by the diet electrical technician instructor. Tiara Alaniz DT Normal [facility] BASIC METABOLIC PANELon 01-01 Anion gap [Moles/Vol] 5 mmol/L Normal 3-13 [facility] Comment on above: Performed By: #### L AB15 ####Graphic Design Manager: ELISSA HARRISON ([phone])[facility])[address] [place] [address] Calcium [Mass/Vol] 8.1 mg/dL Low 8.4-10.4 [facility] Comment on above: Performed By: #### L AB15 ####Graphic Design Manager: ELISSA HARRISON ([phone])[facility])[address] [place] [address] Chloride [Moles/Vol] 100 mmol/L Normal 98-107 [facility] Comment on above: Performed By: #### L AB15 ####Graphic Design Manager: ELISSA HARRISON ([phone])[facility] ([facility])[address] [place] [address] CO2 [Moles/Vol] 24 mmol/L Normal 22-30 [facility] Comment on above: Performed By: #### L AB15 ####Graphic Design Manager: ELISSA HARRISON ([phone])[facility])[address] [place] [address] Creatinine [Mass/Vol] 0.67 mg/dL Normal 0.52-1.04 [facility] Comment on above: Performed By: #### L AB15 ####Graphic Design Manager: ELISSA HARRISON ([phone])[facility])[address] [place] [address] GLOMERULAR FILTRATION RATE ML/MIN/1.73 SQ M.PREDICTED >90.0 Normal >60.0 [facility] Comment on above: Result Comment: Calc ulation based on the Chronic Kidney Disease Epidemiology Collaboration (CKD-EPI) equation refit without adjustment for race Performed By: #### L AB15 ####Graphic Design Manager: ELISSA HARRISON ([phone])[facility])[address] [place] [address] [place] Glucose [Mass/Vol] 240 mg/dL High 70-100 [facility] Comment on above: Performed By: #### L AB15 ####Graphic Design Manager: ELISSA HARRISON ([phone])[facility] ([facility])[address] [place] [address] Potassium [Moles/Vol] 4.3 mmol/L Normal 3.5-5.1 [facility] Comment on above: Performed By: #### L AB15 ####Graphic Design Manager: ELISSA HARRISON ([phone])[facility] ([facility])[address] [place] [address] Sodium [Moles/Vol] 129 mmol/L Low 135-145 [facility] Comment on above: Performed By: #### L AB15 ####Graphic Design Manager: ELISSA HARRISON ([phone])[facility] ([facility])[address] [place] [address] Urea nitrogen [Mass/Vol] 20 mg/dL High 7-17 [facility] Comment on above: Performed By: #### L AB15 ####Graphic Design Manager: ELISSA HARRISON ([phone])[facility] ([facility])[address] [place] [address] [place] Anion gap [Moles/Vol] 6 mmol/L Normal 3-13 [facility] Comment on above: Performed By: #### L AB15 ####Graphic Design Manager: ELISSA HARRISON ([phone])[facility] ([facility])[address] [place] [address] [place] Calcium [Mass/Vol] 7.5 mg/dL Low 8.4-10.4 [facility] Comment on above: Performed By: #### L AB15 ####Graphic Design Manager: ELISSA HARRISON ([phone])[facility] ([facility])[address] [place] [address] [place] Chloride [Moles/Vol] 97 mmol/L Low 98-107 [facility] Comment on above: Performed By: #### L AB15 ####Graphic Design Manager: ELISSA HARRISON ([phone])[facility])[address] [place] [address] CO2 [Moles/Vol] 23 mmol/L Normal 22-30 [facility] Comment on above: Performed By: #### L AB15 ####Graphic Design Manager: ELISSA HARRISON ([phone])[facility])[address] [place] [address] Creatinine [Mass/Vol] 0.64 mg/dL Normal 0.52-1.04 [facility] Comment on above: Performed By: #### L AB15 ####Graphic Design Manager: ELISSA HARRISON ([phone])[facility])[address] [place] [address] GLOMERULAR FILTRATION RATE ML/MIN/1.73 SQ M.PREDICTED >90.0 Normal >60.0 [facility] Comment on above: Result Comment: Calc ulation based on the Chronic Kidney Disease Epidemiology Collaboration (CKD-EPI) equation refit without adjustment for race Performed By: #### L AB15 ####Graphic Design Manager: ELISSA HARRISON ([phone])[facility])[address] [place] [address] Glucose [Mass/Vol] 175 mg/dL High 70-100 [facility] Comment on above: Performed By: #### L AB15 ####Graphic Design Manager: ELISSA HARRISON ([phone])[facility])[address] [place] [address] Potassium [Moles/Vol] 4.4 mmol/L Normal 3.5-5.1 [facility] Comment on above: Performed By: #### L AB15 ####Graphic Design Manager: ELISSA HARRISON ([phone])[facility])[address] [place] [address] Sodium [Moles/Vol] 126 mmol/L Low 135-145 [facility] Comment on above: Performed By: #### L AB15 ####Graphic Design Manager: ELISSA [id number])[facility] ([facility])[address] [place] [address] Urea nitrogen [Mass/Vol] 19 mg/dL High 7-17 [facility] Comment on above: Performed By: #### L AB15 ####Graphic Design Manager: ELISSA HARRISON ([phone])[facility] ([facility])[address] [place] [address] Basic metabolic 1998 panelon 01-23-2024 Anion gap [Moles/Vol] 5 mmol/L 3 - 13 mmol/L [facility] Calcium [Mass/Vol] 8.1 mg/dL Low 8.4 - 10. 4 mg/dL [facility] Chloride [Moles/Vol] 100 mmol/L 98 - 10 7 mmol/L [facility] CO2 [Moles/Vol] 24 mmol/L 22 - 30 mmol/L [facility] Creatinine [Mass/Vol] 0.67 mg/dL 0.52 - 1.04 mg/dL [facility] GFR/1.73 sq M.predicted (S/P/Bld) [Vol rate/Area] - PINF [facility] Comment on above: Calculation based on the Chronic Kidney Disease Epidemiology Collaboration (CKD-EPI) equation refit without adjustment for race Glucose [Mass/Vol] 240 mg/dL High 70 - 100 mg/dL [facility] Interpretation and review of laboratory results Abnormal [facility] Potassium [Moles/Vol] 4.3 mmol/L 3.5 - 5.1 mmol/L [facility] Sodium [Moles/Vol] 129 mmol/L Low 135 - 145 mmol/L [facility] Urea nitrogen [Mass/Vol] 20 mg/dL High 7 - 17 mg/dL [facility] Anion gap [Moles/Vol] 6 mmol/L 3 - 13 mmol/L [facility] Calcium [Mass/Vol] 7.5 mg/dL Low 8.4 - 10. 4 mg/dL [facility] Chloride [Moles/Vol] 97 mmol/L Low 98 - 10 7 mmol/L [facility] CO2 [Moles/Vol] 23 mmol/L 22 - 30 mmol/L [facility] Creatinine [Mass/Vol] 0.64 mg/dL 0.52 - 1.04 mg/dL [facility] GFR/1.73 sq M.predicted (S/P/Bld) [Vol rate/Area] - PINF [facility] Comment on above: Calculation based on the Chronic Kidney Disease Epidemiology Collaboration (CKD-EPI) equation refit without adjustment for race Glucose [Mass/Vol] 175 mg/dL High 70 - 100 mg/dL [facility] Interpretation and review of laboratory results Abnormal [facility] Potassium [Moles/Vol] 4.4 mmol/L 3.5 - 5.1 mmol/L [facility] Sodium [Moles/Vol] 126 mmol/L Low 135 - 145 mmol/L [facility] Urea nitrogen [Mass/Vol] 19 mg/dL High 7 - 17 mg/dL [facility] CARECOORDon 01-23-2024 [facility] Managment [facility] Assessment Date: 01/23/2024 Patient Name: Madelyn Love : 1945 Patient Information Source of Information: Patient Cognition/Language: WFL - Within Functional Limits Permission given to speak with patient entry level marketing representative/caregiver as indicated: Yes Confirmation of Payer with patient/family: Yes Payer Name: Medicare : No Confirmation of Primary Care Physician: Confirmed PCP Name: Dr. Hugo Julio Seen in last 2 years?: Yes Primary Caregiver: Self If assistance needed, confirmed caregiver ready, willing and able to care for patient at discharge: Confirmed with: Living Arrangements Current Residence: House Number of Floors 1 Number of Entry Steps: Bed/Bath Levels: Facility: Facility Name: Plan to Return: Yes Lives with: Spouse/significant other Support Systems: Spouse/significant other, Children Activities of Daily Living Ambulation: Independent Bathing/Dressing: Independent Elimination/Continence/Ernie leting: Independent Feeding: Independent Who Assists with Activities of Daily Living: Instrumental Activities of Daily Living Prescription Coverage: Yes Pharmacy Used: [facility] Medication Management: Independent Transportation/Shopping: Independent Transportation Mode: Car Needs Assistance with Transportation at Discharge: No Meal Preparation: Independent Laundry/Cleaning: Independent Finances/Bill Paying: Independent Communication: Independent Types of Care Services/Equipment Utilized Care Services: Dialysis Type: NA Durable Medical Equipment: Patient's Goal/Discharge Plan Patient expects to be discharged to: Home Discharge Planning Actions: No needs identified Patient's Choice Rights and [employer] and Collaborative Relationships Disclosed as Indicated for Post-Acute Care: Interdisciplinary Team Engagement: Social Work Referral for: Additional Information: Patient admitted to for syncope. Cardiology consulted, Echo, LE U/S and PT/OT evaluation. Discharge plan home independently pending therapy recommendations. Verenice Gu RN Normal [facility] CBC W Auto Differential pane l (Bld)Ordered By: Clarissa Burgess on 01-23-2024 Basophils (Bld) [#/Vol] 0.0 10*3/uL 0.0 - 0.2 10*3/uL [facility] Basophils/100 WBC (Bld) 0.6 % 0.0 - 2.0 % [facility] Eosinophils (Bld) [#/Vol] 0.2 10*3/uL 0.0 - 0.5 10*3/uL [facility] Eosinophils/100 WBC (Bld) 3.5 % 0.0 - 6.0 % [facility] Erythrocyte distribution width (RBC) [Ratio] 14.0 % 11.5 - 15.0 % [facility] Hematocrit (Bld) [Volume fraction] 32.7 % Low 35.0 - 47.0 % [facility] Hemoglobin (Bld) [Mass/Vol] 10.2 g/dL Low 11.7 - 16.0 g/dL [facility] Immature granulocytes (Bld) [#/Vol] 0.0 10*3/uL NINF - 0.1 10*3/uL [facility] Immature granulocytes/100 WBC (Bld) 0.3 % 0.0 - 2.0 % [facility] Interpretation and review of laboratory results Abnormal [facility] Lymphocytes (Bld) [#/Vol] 1.5 10*3/uL 1.0 - 4.3 10*3/uL [facility] Lymphocytes/100 WBC (Bld) 21.7 % 15.0 - 45.0 % [facility] MCH (RBC) [Entitic mass] 29.4 pg 26.0 - 34.0 pg [facility] MCHC (RBC) [Mass/Vol] 31.2 % 30.5 - 36.0 % [facility] MCV (RBC) [Entitic vol] 94.2 fL 77.0 - 99.0 fL [facility] Monocytes (Bld) [#/Vol] 0.7 10*3/uL 0.0 - 0.9 10*3/uL [facility] Monocytes/100 WBC (Bld) 10.3 % 5.0 - 13.0 % [facility] Neutrophils (Bld) [#/Vol] 4.3 10*3/uL 1.8 - 7.5 10*3/uL [facility] Neutrophils/100 WBC (Bld) 63.6 % 38.0 - 82.0 % [facility] Nucleated RBC/100 WBC (Bld) [Ratio] 0.0 % [facility] Platelet mean volume (Bld) [Entitic vol] 8.5 fL Low 9.0 - 12.7 fL [facility] Platelets (Bld) [#/Vol] 290 10*3/uL 140 - 440 10*3/uL [facility] RBC (Bld) [#/Vol] 3.47 10*6/uL Low 3.80 - 5.20 10*6/uL [facility] WBC (Bld) [#/Vol] 6.8 10*3/uL 3.6 - 10.7 10*3/uL [facility] CBC W Auto Differential pane l (Bld)on 01-23-2024 Basophils (Bld) [#/Vol] 0.1 10*3/uL 0.0 - 0.2 10*3/uL [facility] Basophils/100 WBC (Bld) 0.9 % 0.0 - 2.0 % [facility] Eosinophils (Bld) [#/Vol] 0.3 10*3/uL 0.0 - 0.5 10*3/uL [facility] Eosinophils/100 WBC (Bld) 3.9 % 0.0 - 6.0 % [facility] Erythrocyte distribution width (RBC) [Ratio] 14.0 % 11.5 - 15.0 % [facility] Hematocrit (Bld) [Volume fraction] 32.2 % Low 35.0 - 47.0 % [facility] Hemoglobin (Bld) [Mass/Vol] 10.3 g/dL Low 11.7 - 16.0 g/dL [facility] Immature granulocytes (Bld) [#/Vol] 0.0 10*3/uL NINF - 0.1 10*3/uL [facility] Immature granulocytes/100 WBC (Bld) 0.3 % 0.0 - 2.0 % [facility] Interpretation and review of laboratory results Abnormal [facility] Lymphocytes (Bld) [#/Vol] 1.4 10*3/uL 1.0 - 4.3 10*3/uL [facility] Lymphocytes/100 WBC (Bld) 20.4 % 15.0 - 45.0 % [facility] MCH (RBC) [Entitic mass] 30.0 pg 26.0 - 34.0 pg [facility] MCHC (RBC) [Mass/Vol] 32.0 % 30.5 - 36.0 % [facility] MCV (RBC) [Entitic vol] 93.9 fL 77.0 - 99.0 fL [facility] Monocytes (Bld) [#/Vol] 0.7 10*3/uL 0.0 - 0.9 10*3/uL [facility] Monocytes/100 WBC (Bld) 10.4 % 5.0 - 13.0 % [facility] Neutrophils (Bld) [#/Vol] 4.3 10*3/uL 1.8 - 7.5 10*3/uL [facility] Neutrophils/100 WBC (Bld) 64.1 % 38.0 - 82.0 % [facility] Nucleated RBC/100 WBC (Bld) [Ratio] 0.0 % [facility] Platelet mean volume (Bld) [Entitic vol] 8.5 fL Low 9.0 - 12.7 fL [facility] Platelets (Bld) [#/Vol] 276 10*3/uL 140 - 440 10*3/uL [facility] RBC (Bld) [#/Vol] 3.43 10*6/uL Low 3.80 - 5.20 10*6/uL [facility] WBC (Bld) [#/Vol] 6.8 10*3/uL 3.6 - 10.7 10*3/uL [facility] CBC WITH AUTO DIFFERENTIALon 01-23-2024 Basophils (Bld) [#/Vol] 0.0 10*3/uL Normal 0.0-0.2 [facility] Comment on above: Performed By: #### L [id number] ####Graphic Design Manager: ELISSA HARRISON ([phone])[facility] ([address] Basophils/100 WBC (Bld) 0.6 % Normal 0.0-2.0 [facility] Comment on above: Performed By: #### L [id number] ####Graphic Design Manager: ELISSA HARRISON ([phone])[facility])[address] [place] [address] Eosinophils (Bld) [#/Vol] 0.2 10*3/uL Normal 0.0-0.5 [facility] Comment on above: Performed By: #### L [id number] ####Graphic Design Manager: ELISSA HARRISON ([phone])[facility])[address] [place] [address] Eosinophils/100 WBC (Bld) 3.5 % Normal 0.0-6.0 [facility] Comment on above: Performed By: #### L [id number] ####Graphic Design Manager: ELISSA HARRISON ([phone])[facility])[address] [place] [address] Erythrocyte distribution width (RBC) [Ratio] 14.0 % Normal 11.5-15.0 [facility] Comment on above: Performed By: #### L [id number] ####Graphic Design Manager: ELISSA HARRISON ([phone])[facility])[address] [place] [address] Hematocrit (Bld) [Volume fraction] 32.7 % Low 35.0-47.0 [facility] Comment on above: Performed By: #### L [id number] ####Graphic Design Manager: ELISSA HARRISON ([phone])[facility])[address] [place] [address] Hemoglobin (Bld) [Mass/Vol] 10.2 g/dL Low 11.7-16.0 [facility] Comment on above: Performed By: #### L [id number] ####Graphic Design Manager: ELISSA HARRISON ([phone])[facility])[address] [place] [address] IMMATURE GRANS % 0.3 % Normal 0.0-2.0 [facility] Comment on above: Performed By: #### L [id number] ####Graphic Design Manager: ELISSA HARRISON ([phone])[facility])[address] [place] [address] IMMATURE GRANS ABSOLUTE 0.0 10*3/uL Normal <0.1 [facility] Comment on above: Performed By: #### L [id number] ####Graphic Design Manager: ELISSA HARRISON ([phone])[facility])[address] [place] [address] Lymphocytes (Bld) [#/Vol] 1.5 10*3/uL Normal 1.0-4.3 [facility] Comment on above: Performed By: #### L [id number] ####Graphic Design Manager: ELISSA HARRISON ([phone])[address] Lymphocytes/100 WBC (Bld) 21.7 % Normal 15.0-45.0 [facility] Comment on above: Performed By: #### L [id number] ####Graphic Design Manager: ELISSA HARRISON ([phone])[facility])[address] [place] [address] MCH (RBC) [Entitic mass] 29.4 pg Normal 26.0-34.0 [facility] Comment on above: Performed By: #### L [id number] ####Graphic Design Manager: ELISSA HARRISON ([phone])[address] MCHC 31.2 % Normal 30.5-36.0 [facility] Comment on above: Performed By: #### L [id number] ####Graphic Design Manager: ELISSA HARRISON ([phone])[address] MCV (RBC) [Entitic vol] 94.2 fL Normal 77.0-99.0 [facility] Comment on above: Performed By: #### L [id number] ####Graphic Design Manager: ELISSA [id number])[facility] ([facility])[address] [place] [address] Monocytes (Bld) [#/Vol] 0.7 10*3/uL Normal 0.0-0.9 [facility] Comment on above: Performed By: #### L [id number] ####Graphic Design Manager: ELISSA HARRISON ([phone])[facility] ([facility])[address] [place] [address] Monocytes/100 WBC (Bld) 10.3 % Normal 5.0-13.0 [facility] Comment on above: Performed By: #### L [id number] ####Graphic Design Manager: ELISSA HARRISON ([phone])[facility])[address] [place] [address] NEUTROPHILS ABSOLUTE 4.3 10*3/uL Normal 1.8-7.5 [facility] Comment on above: Performed By: #### L [id number] ####Graphic Design Manager: ELISSA HARRISON ([phone])[facility] ([facility])[address] [place] [address] Neutrophils/100 WBC (Bld) 63.6 % Normal 38.0-82.0 [facility] Comment on above: Performed By: #### L [id number] ####Graphic Design Manager: ELISSA HARRISON ([phone])[facility] ([facility])[address] [place] [address] NRBC 0.0 /100 WBCs Normal 0.0-2.0 [facility] Comment on above: Performed By: #### L [id number] ####Graphic Design Manager: ELISSA HARRISON ([phone])[facility] ([facility])[address] [place] [address] Platelet mean volume (Bld) [Entitic vol] 8.5 fL Low 9.0-12.7 [facility] Comment on above: Performed By: #### L [id number] ####Graphic Design Manager: ELISSA HARRISON ([phone])[facility] ([facility])[address] [place] [address] [place] Platelets (Bld) [#/Vol] 290 10*3/uL Normal 140-440 [facility] Comment on above: Performed By: #### L [id number] ####Graphic Design Manager: ELISSA HARRISON ([phone])[facility])[address] [place] [address] RBC (Bld) [#/Vol] 3.47 10*6/uL Low 3.80-5.20 [facility] Comment on above: Performed By: #### L [id number] ####Graphic Design Manager: ELISSA HARRISON ([phone])[facility])[address] [place] [address] WBC (Bld) [#/Vol] 6.8 10*3/uL Normal 3.6-10.7 [facility] Comment on above: Performed By: #### L [id number] ####Graphic Design Manager: ELISSA HARRISON ([phone])[facility])[address] [place] [address] Basophils (Bld) [#/Vol] 0.1 10*3/uL Normal 0.0-0.2 [facility] Comment on above: Performed By: #### L [id number] ####Graphic Design Manager: ELISSA HARRISON ([phone])[facility])[address] [place] [address] Basophils/100 WBC (Bld) 0.9 % Normal 0.0-2.0 [facility] Comment on above: Performed By: #### L [id number] ####Graphic Design Manager: ELISSA HARRISON ([phone])[facility])[address] [place] [address] Eosinophils (Bld) [#/Vol] 0.3 10*3/uL Normal 0.0-0.5 [facility] Comment on above: Performed By: #### L [id number] ####Graphic Design Manager: ELISSA HARRISON ([phone])[facility])[address] [place] [address] Eosinophils/100 WBC (Bld) 3.9 % Normal 0.0-6.0 [facility] Comment on above: Performed By: #### L [id number] ####Graphic Design Manager: ELISSA HARRISON ([phone])[address] Erythrocyte distribution width (RBC) [Ratio] 14.0 % Normal 11.5-15.0 [facility] Comment on above: Performed By: #### L [id number] ####Graphic Design Manager: ELISSA HARRISON ([phone])[address] Hematocrit (Bld) [Volume fraction] 32.2 % Low 35.0-47.0 [facility] Comment on above: Performed By: #### L [id number] ####Graphic Design Manager: ELISSA HARRISON ([phone])[address] Hemoglobin (Bld) [Mass/Vol] 10.3 g/dL Low 11.7-16.0 [facility] Comment on above: Performed By: #### L [id number] ####Graphic Design Manager: ELISSA HARRISON ([phone])[address] IMMATURE GRANS % 0.3 % Normal 0.0-2.0 [facility] Comment on above: Performed By: #### L [id number] ####Graphic Design Manager: ELISSA HARRISON ([phone])[address] IMMATURE GRANS ABSOLUTE 0.0 10*3/uL Normal <0.1 [facility] Comment on above: Performed By: #### L [id number] ####Graphic Design Manager: ELISSA HARRISON ([phone])[address] Lymphocytes (Bld) [#/Vol] 1.4 10*3/uL Normal 1.0-4.3 [facility] Comment on above: Performed By: #### L [id number] ####Graphic Design Manager: ELISSA HARRISON ([phone])[facility])[address] [place] [address] Lymphocytes/100 WBC (Bld) 20.4 % Normal 15.0-45.0 [facility] Comment on above: Performed By: #### L [id number] ####Graphic Design Manager: ELISSA HARRISON ([phone])[facility])[address] [place] [address] MCH (RBC) [Entitic mass] 30.0 pg Normal 26.0-34.0 [facility] Comment on above: Performed By: #### L [id number] ####Graphic Design Manager: ELISSA HARRISON ([phone])[facility])[address] [place] [address] MCHC 32.0 % Normal 30.5-36.0 [facility] Comment on above: Performed By: #### L [id number] ####Graphic Design Manager: ELISSA HARRISON ([phone])[facility] ([facility])[address] [place] [address] MCV (RBC) [Entitic vol] 93.9 fL Normal 77.0-99.0 [facility] Comment on above: Performed By: #### L [id number] ####Graphic Design Manager: ELISSA HARRISON ([phone])[facility])[address] [place] [address] Monocytes (Bld) [#/Vol] 0.7 10*3/uL Normal 0.0-0.9 [facility] Comment on above: Performed By: #### L [id number] ####Graphic Design Manager: ELISSA HARRISON ([phone])[facility])[address] [place] [address] Monocytes/100 WBC (Bld) 10.4 % Normal 5.0-13.0 [facility] Comment on above: Performed By: #### L [id number] ####Graphic Design Manager: ELISSA HARRISON ([phone])[facility])[address] [place] [address] NEUTROPHILS ABSOLUTE 4.3 10*3/uL Normal 1.8-7.5 [facility] Comment on above: Performed By: #### L [id number] ####Graphic Design Manager: ELISSA HARRISON ([phone])[facility] ([facility])[address] [place] [address] Neutrophils/100 WBC (Bld) 64.1 % Normal 38.0-82.0 [facility] Comment on above: Performed By: #### L [id number] ####Graphic Design Manager: ELISSA HARRISON ([phone])[facility] ([facility])[address] [place] [address] NRBC 0.0 /100 WBCs Normal 0.0-2.0 [facility] Comment on above: Performed By: #### L [id number] ####Graphic Design Manager: ELISSA HARRISON ([phone])[facility] ([facility])[address] [place] [address] Platelet mean volume (Bld) [Entitic vol] 8.5 fL Low 9.0-12.7 [facility] Comment on above: Performed By: #### L [id number] ####Graphic Design Manager: ELISSA HARRISON ([phone])[facility] ([facility])[address] [place] [address] Platelets (Bld) [#/Vol] 276 10*3/uL Normal 140-440 [facility] Comment on above: Performed By: #### L [id number] ####Graphic Design Manager: ELISSA HARRISON ([phone])[facility] ([facility])[address] [place] [address] [place] RBC (Bld) [#/Vol] 3.43 10*6/uL Low 3.80-5.20 [facility] Comment on above: Performed By: #### L [id number] ####Graphic Design Manager: ELISSA HARRISON ([phone])[facility] ([facility])[address] [place] [address] [place] WBC (Bld) [#/Vol] 6.8 10*3/uL Normal 3.6-10.7 [facility] Comment on above: Performed By: #### L [id number] ####Graphic Design Manager: ELISSA HARRISON ([phone])[facility] ([facility])[address] [place] [address] CORTISOLon 01-23-2024 CORTISOL 10.6 ug/dL Normal [facility] Comment on above: Result Comment: CHON Mueller COMMENTS: Before 10am 4.5-22.7 ug/dL After 5pm 1.7-14.1 ug/dL Performed By: #### L [id number] ####Graphic Design Manager: ELISSA SAMMRip ([phone])[facility] ([facility])[address] [place] [address] Consulton 01-23-2024 Consult Madelyn Love is a 78 y.o. female Chief Complaint Patient presents with Abnormal Lab Pt was sent in to ED by pcp for hyponatremia. Last lab draw was yesterday, but pt states that her sodium levels have been trending down. Pt denies any complaints, any pain, or any concerns. Pt is a/o x 3; breathing is even and unlabored on room air. GCS 15. See my note 01/23/2024 for assessment, plan. Normal [facility] Consult Madelyn Love is a 78 y.o. female Chief Complaint Patient presents with Abnormal Lab Pt was sent in to ED by pcp for hyponatremia. Last lab draw was yesterday, but pt states that her sodium levels have been trending down. Pt denies any complaints, any pain, or any concerns. Pt is a/o x 3; breathing is even and unlabored on room air. GCS 15. Patient seen and examined, awake, alert, and cooperative, working a crossword puzzle. No SI, no psychosis evident. Patient reports prior incident of hyponatremia with sodium as low as 107 while in [place]. She is presently experiencing no significant mental status change. Does report having had psychosis associated with mental status change. Has been planning to wean haldol prior to admission. 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 Dysuria 07/11/2021 Edema of lower extremity 10/17/2021 Esophageal reflux 05/07/2006 Essential hypertension, benign 01/05/2021 Fatigue 11/07/2022 GERD (gastroesophageal reflux disease) Heart valve disease 11/07/2022 History of delirium 11/12/2021 History of fall 07/11/2021 Hypoalbuminemia 12/09/2021 Hypocalcemia 07/12/2021 Hyponatremia 07/09/2021 Intestinal malabsorption 11/07/2022 Iron deficiency anemia 11/07/2022 Midline cystocele 01/21/2020 Morbid obesity (HCC) 11/07/2022 Osteoarthritis 01/05/2021 knees and back knees and back Other diseases of lung, not elsewhere classified 09/24/2007 Psychosis ([facility]) 01/04/2021 Secondary hyperparathyroidism ([facility]) 07/12/2021 Skin lesion 11/07/2022 Stage 2 chronic kidney disease 05/14/2017 Steatorrhea 11/07/2022 Thrombosed external hemorrhoids 11/07/2022 Type 2 diabetes mellitus without complication, without long-term current use of insulin ([facility]/HCC) (HCC) 07/12/2021 Urge incontinence 01/21/2020 Urinary tract infectious disease 11/07/2022 Venous (peripheral) insufficiency 03/06/2005 Vitamin D deficiency 10/30/2021 Current Outpatient Medications Medication Instructions aspirin 81 mg, Oral, 2 time daily Calcium Citrate-Vitamin D (Calcium Citrate + D3) 250-5 MG-MCG tablet 1,200 mg, Oral, 3 times daily carvedilol (COREG) 25 mg, Oral, 2 times daily with meals dapagliflozin (FARXIGA) 5 mg, Oral, Daily furosemide (LASIX) 20 mg, Oral, Daily gabapentin (NEURONTIN) 300 mg, Oral, 3 times daily haloperidol (HALDOL) 0.5 mg, Oral, Daily Kerendia 10 MG tablet 1 tablet, Oral, Daily melatonin 3 mg, Oral mirabegron ER (MYRBETRIQ) 25 mg, Oral, Daily, Do not crush, chew, or split. pantoprazole (PROTONIX) 40 mg, Oral, Daily before breakfast, Do not crush, chew, or split. Potassium 75 MG tablet Oral telmisartan (MICARDIS) 40 mg, Oral, 2 times daily before meals Allergies Allergen Reactions Corticosteroids Hallucinations and Other Other reaction(s): Confusion Rofecoxib Swelling Mirabegron Other reaction(s): Confusion Nsaids Other Other reaction(s): Cramps stomach Tramadol Other reaction(s): Mental Status Change aspirin, 81 mg, Oral, Daily Calcium Citrate-Vitamin D, 2 tablet, Oral, TID carvedilol, 25 mg, Oral, BID WC cefTRIAXone, 1,000 mg, IntraVENous, q24h enoxaparin, 40 mg, SubCUTAneous, Daily Finerenone, 1 tablet, Oral, Daily gabapentin, 300 mg, Oral, TID [Held by provider] haloperidol, 0.5 mg, Oral, q AM insulin lispro, 0-6 Units, SubCUTAneous, TID WC And insulin lispro, 0-6 Units, SubCUTAneous, Nightly losartan, 50 mg, Oral, Daily melatonin, 6 mg, Oral, Nightly mirabegron ER, 25 mg, Oral, Nightly pantoprazole, 40 mg, Oral, qAM AC sodium chloride, 1 g, Oral, TID WC PRN medications: acetaminophen OR acetaminophen, dextrose, dextrose, glucagon (rDNA), glucose, naloxone, ondansetron ODT OR ondansetron, polyethylene glycol (PEG) 3350, traMADol Review of Systems Constitutional: Negative for diaphoresis and fatigue. Respiratory: Negative for cough and shortness of breath. Cardiovascular: Negative for chest pain. Gastrointestinal: Positive for diarrhea. Negative for constipation, nausea and vomiting. Neurological: Negative for tremors and seizures. Psychiatric/Behavioral: Negative for agitation, behavioral problems, decreased concentration, hallucinations, sleep disturbance and suicidal ideas. The patient is not nervous/anxious. Vitals: 01/22/24 1500 01/22/24 2001 01/23/24 0726 01/23/24 1619 BP: 114/56 (!) 165/79 141/74 BP Location: Left arm Left arm Patient Position: Sitting Sitting Pulse: 75 77 83 Resp: 14 18 Temp: 36.2 ?C (97.2 ?F) 36.2 ?C (97.2 ?F) TempSrc: Tem (more content not included)... Normal [facility] Laboratory - Chemistry and C hemistry - challengeon 01-23-2024 Glucose [Mass/Vol] 196 mg/dL High 70 - 100 mg/dL [facility] Glucose [Mass/Vol] 99 mg/dL 70 - 100 mg/dL [facility] Glucose [Mass/Vol] 83 mg/dL 70 - 100 mg/dL [facility] Sodium (24H U) [Mass/Vol] 50 mmol/L 30 - 90 mmol/L [facility] Glucose [Mass/Vol] 156 mg/dL High 70 - 100 mg/dL [facility] Cortisol [Mass/Vol] 10.6 ug/dL [facility] - Chemistry and C hemistry - challengeOrdered By: Niraj Bonds on 01-23-2024 Osmolality [Osmolality] 282 mosm/kg [facility] - Urinalysison Protein (U) [Mass/Vol] 21 mg/dL High 0 - 1 2 mg/dL [facility] No Panel Informationon 01-22 Interpretation and review of laboratory results Abnormal [facility] Performed by: [facility], [address] [place], [place] [id number] CLIA ID: [id number] [facility] Interpretation and review of laboratory results Normal [facility] Performed by: [facility], [address] [place] [address] CLIA ID: [id number] [facility] Interpretation and review of laboratory results Normal [facility] Performed by: [facility] [employer] [facility], [address] [place] [address] CLIA ID: [id number] [facility] Interpretation and review of laboratory results Normal [facility] Interpretation and review of laboratory results Abnormal [facility] Interpretation and review of laboratory results Abnormal [facility] Performed by: [facility], [address] [place] [address] CLIA ID: [id number] [facility] Before 10am 4.5-22.7 ug/dL After 5pm 1.7-14.1 ug/dL [facility] No Panel InformationOrdered By: Chantell Mario on 01-23-2024 Interpretation and review of laboratory results Normal [facility] OSMOLALITY, URINE 425 [facility] No Panel InformationOrdered By: Niraj Bonds on 01-23-2024 Interpretation and review of laboratory results Normal [facility] OSMOLALITY, SERUMon 01-23-20 24 OSMOLALITY, SERUM 282 mOsm/kg Normal 280-300 [facility] Comment on above: Performed By: #### L [id number] ####Graphic Design Manager: ELISSA HARRISON ([phone])[facility])[address] [place] [address] [place] OSMOLALITY, URINEon 01-23-20 24 OSMOLALITY, URINE 425 mOsm/kg Normal 300-1000 [facility] Comment on above: Order Comment: Can w e add onto the urine already obtained for the urinalysis? Performed By: #### L [id number], [id number], [id number] ####Graphic Design Manager: ELISSA HARRISON ([phone])[facility])[address] [place] [address] PROTEIN, URINE, RANDOMon Protein (U) [Mass/Vol] 21 mg/dL High 0-12 [facility] Comment on above: Performed By: #### L [id number], [id number], [id number] ####Graphic Design Manager: ELISSA HARRISON ([phone])[facility])[address] [place] [address] SODIUM, URINE, RANDOMon 08- Sodium (U) [Moles/Vol] 50 mmol/L Normal 30-90 [facility] Comment on above: Order Comment: Can w e add onto urine use for urinalysis. Performed By: #### L [id number], [id number], [id number] ####Graphic Design Manager: ELISSA HARRISON ([phone])[facility])[address] [place] [address] [place] XR CHEST 1 VIEWon 01-23-2024 XR CHEST 1 VIEW Patient Name: [facility] 1945 [id number] Exam Date/Time: 01/23/2024 14:49 Procedure: XR CHEST 1 VIEW Ordering Provider: ROBERTS JIANFANG Reason For Exam: Possible SIADH, screen AP CHEST X-RAY CLINICAL INDICATION: Possible SIADH, screen TECHNIQUE: AP portable x-ray of the chest. COMPARISON: July 10, 2021 FINDINGS: Lines/Tubes: None Heart/Mediastinum: Cardiac silhouette is within normal limits for size. The aorta is tortuous and calcified Lungs: There is minimal blunting of the left costophrenic angle. Bones: Degenerative changes are seen in the thoracic spine and shoulders. No acute osseous findings. IMPRESSION: Minimal blunting of left costophrenic angle may represent small pleural effusion or pleural thickening. Report Dictated on Electronically Signed By: Alma Lee MD Electronically Signed Date/Time: 01/23/2024 7:06 PM EDT [facility] XR Chest Single viewon 01-22 Minimal blunting of left costophrenic angle may represent small pleural effusion or pleural thickening. Report Dictated on Electronically Signed By: Alma Lee MD Electronically Signed Date/Time: 01/23/2024 7:06 PM EDT [facility] Patient Name: MADELYN CABRERA : 1945 Exam Date/Time: 01/23/2024 14:49 Procedure: XR CHEST 1 VIEW Ordering Provider: ROBERTS JIANFANG Reason For Exam: Possible SIADH, screen AP CHEST X-RAY CLINICAL INDICATION: Possible SIADH, screen TECHNIQUE: AP portable x-ray of the chest. COMPARISON: July 10, 2021 FINDINGS: Lines/Tubes: None Heart/Mediastinum: Cardiac silhouette is within normal limits for size. The aorta is tortuous and calcified Lungs: There is minimal blunting of the left costophrenic angle. Bones: Degenerative changes are seen in the thoracic spine and shoulders. No acute osseous findings. [facility] Alma Lee MD - 01/23/2024 Patient Name: MADELYN LOVE : 1945 [facility]#: [id number] Exam Date/Time: 01/23/2024 14:49 Procedure: XR CHEST 1 VIEW Ordering Provider: ROBERTS JIANFANG Reason For Exam: Possible SIADH, screen AP CHEST X-RAY CLINICAL INDICATION: Possible SIADH, screen TECHNIQUE: AP portable x-ray of the chest. COMPARISON: July 10, 2021 FINDINGS: Lines/Tubes: None Heart/Mediastinum: Cardiac silhouette is within normal limits for size. The aorta is tortuous and calcified Lungs: There is minimal blunting of the left costophrenic angle. Bones: Degenerative changes are seen in the thoracic spine and shoulders. No acute osseous findings. IMPRESSION: Minimal blunting of left costophrenic angle may represent small pleural effusion or pleural thickening. Report Dictated on Electronically Signed By: Alma Lee MD Electronically Signed Date/Time: 01/23/2024 7:06 PM EDT [facility] Radiology Study observation (narrative) [facility] XR Chest Single viewOrdered By: Alma Lee on 01-23-2024 [facility] Work Phone: BASIC METABOLIC PANELon 01-01 Anion gap [Moles/Vol] 7 mmol/L Normal 3-13 [facility] Comment on above: Performed By: #### L AB15 ####Graphic Design Manager: ELISSA HARRISON ([phone])[facility] ([facility])[address] [place] [address] Calcium [Mass/Vol] 7.7 mg/dL Low 8.4-10.4 [facility] Comment on above: Performed By: #### L AB15 ####Graphic Design Manager: ELISSA HARRISON ([phone])[facility] ([facility])[address] [place] [address] Chloride [Moles/Vol] 96 mmol/L Low 98-107 [facility] Comment on above: Performed By: #### L AB15 ####Graphic Design Manager: ELISSA HARRISON ([phone])[facility])[address] [place] [address] CO2 [Moles/Vol] 23 mmol/L Normal 22-30 [facility] Comment on above: Performed By: #### L AB15 ####Graphic Design Manager: ELISSA HARRISON ([phone])[facility])[address] [place] [address] Creatinine [Mass/Vol] 0.82 mg/dL Normal 0.52-1.04 [facility] Comment on above: Performed By: #### L AB15 ####Graphic Design Manager: ELISSA HARRISON ([phone])[facility])[address] [place] [address] GLOMERULAR FILTRATION RATE ML/MIN/1.73 SQ M.PREDICTED 73.8 mL/min/1.73m*2 Normal >60.0 [facility] Comment on above: Result Comment: Calc ulation based on the Chronic Kidney Disease Epidemiology Collaboration (CKD-EPI) equation refit without adjustment for race Performed By: #### L AB15 ####Graphic Design Manager: ELISSA HARRISON ([phone])[facility])[address] [place] [address] Glucose [Mass/Vol] 130 mg/dL High 70-100 [facility] Comment on above: Performed By: #### L AB15 ####Graphic Design Manager: ELISSA HARRISON ([phone])[facility])[address] [place] [address] Potassium [Moles/Vol] 4.7 mmol/L Normal 3.5-5.1 [facility] Comment on above: Performed By: #### L AB15 ####Graphic Design Manager: ELISSA HARRISON ([phone])[facility])[address] [place] [address] Sodium [Moles/Vol] 126 mmol/L Low 135-145 [facility] Comment on above: Performed By: #### L AB15 ####Graphic Design Manager: LEISSA [phone])[facility] [place] [address] [place] Urea nitrogen [Mass/Vol] 25 mg/dL High 7-17 [facility] Comment on above: Performed By: #### L AB15 ####Graphic Design Manager: ELISSA HARRISON ([phone])[facility] ([facility])[address] [place] [address] Anion gap [Moles/Vol] 8 mmol/L Normal 3-13 [facility] Comment on above: Performed By: #### L AB113, [id number], LAB15, [id number], LAB20 ####Graphic Design Manager: ELISSA HARRISON ([phone])[facility] ([facility])[address] [place] [address] Calcium [Mass/Vol] 8.2 mg/dL Low 8.4-10.4 [facility] Comment on above: Performed By: #### L AB113, [id number], LAB15, [id number], LAB20 ####Graphic Design Manager: ELISSA HARRISON ([phone])[facility] ([facility])[address] [place] [address] [place] Chloride [Moles/Vol] 91 mmol/L Low 98-107 [facility] Comment on above: Performed By: #### L AB113, [id number], LAB15, OJC345, LAB20 ####Graphic Design Manager: ELISSA HARRISON ([phone])[facility] ([facility])[address] [place] [address] [place] CO2 [Moles/Vol] 25 mmol/L Normal 22-30 [facility] Comment on above: Performed By: #### L AB113, [id number], LAB15, OKE412, LAB20 ####Graphic Design Manager: ELISSA HARRISON ([phone])[facility])[address] [place] [address] Creatinine [Mass/Vol] 0.79 mg/dL Normal 0.52-1.04 [facility] Comment on above: Performed By: #### L AB113, [id number], LAB15, XPB414, LAB20 ####Graphic Design Manager: ELISSA HARRISON ([phone])[facility])[address] [place] [address] GLOMERULAR FILTRATION RATE ML/MIN/1.73 SQ M.PREDICTED 77.2 mL/min/1.73m*2 Normal >60.0 [facility] Comment on above: Result Comment: Calc ulation based on the Chronic Kidney Disease Epidemiology Collaboration (CKD-EPI) equation refit without adjustment for race Performed By: #### L AB113, [id number], LAB15, EQS410, LAB20 ####Graphic Design Manager: ELISSA HARRISON ([phone])[facility] ([facility])[address] [place] [address] Glucose [Mass/Vol] 115 mg/dL High 70-100 [facility] Comment on above: Performed By: #### L AB113, [id number], LAB15, [id number], LAB20 ####Graphic Design Manager: ELISSA HARRISON ([phone])[facility] ([facility])[address] [place] [address] Potassium [Moles/Vol] 4.2 mmol/L Normal 3.5-5.1 [facility] Comment on above: Performed By: #### L AB113, [id number], LAB15, KNI106, LAB20 ####Graphic Design Manager: ELISSA HARRISON ([phone])[facility] ([facility])[address] [place] [address] Sodium [Moles/Vol] 124 mmol/L Low 135-145 [facility] Comment on above: Performed By: #### L AB113, [id number], LAB15, JYX213, LAB20 ####Graphic Design Manager: ELISSA HARRISON ([phone])[facility])[address] [place] [address] [place] Urea nitrogen [Mass/Vol] 21 mg/dL High 7-17 [facility] Comment on above: Performed By: #### L AB113, [id number], LAB15, UAT829, LAB20 ####Graphic Design Manager: ELISSA HARRISON ([phone])[facility])[address] [place] [address] Basic metabolic 1998 panelon 01-22-2024 Anion gap [Moles/Vol] 7 mmol/L 3 - 13 mmol/L [facility] Calcium [Mass/Vol] 7.7 mg/dL Low 8.4 - 10. 4 mg/dL [facility] Chloride [Moles/Vol] 96 mmol/L Low 98 - 10 7 mmol/L [facility] CO2 [Moles/Vol] 23 mmol/L 22 - 30 mmol/L [facility] Creatinine [Mass/Vol] 0.82 mg/dL 0.52 - 1.04 mg/dL [facility] GFR/1.73 sq M.predicted (S/P/Bld) [Vol rate/Area] 73.8 mL/min - PINF [facility] Comment on above: Calculation based on the Chronic Kidney Disease Epidemiology Collaboration (CKD-EPI) equation refit without adjustment for race Glucose [Mass/Vol] 130 mg/dL High 70 - 100 mg/dL [facility] Interpretation and review of laboratory results Abnormal [facility] Potassium [Moles/Vol] 4.7 mmol/L 3.5 - 5.1 mmol/L [facility] Sodium [Moles/Vol] 126 mmol/L Low 135 - 145 mmol/L [facility] Urea nitrogen [Mass/Vol] 25 mg/dL High 7 - 17 mg/dL [facility] Anion gap [Moles/Vol] 8 mmol/L 3 - 13 mmol/L [facility] Calcium [Mass/Vol] 8.2 mg/dL Low 8.4 - 10. 4 mg/dL [facility] Chloride [Moles/Vol] 91 mmol/L Low 98 - 10 7 mmol/L [facility] CO2 [Moles/Vol] 25 mmol/L 22 - 30 mmol/L [facility] Creatinine [Mass/Vol] 0.79 mg/dL 0.52 - 1.04 mg/dL [facility] GFR/1.73 sq M.predicted (S/P/Bld) [Vol rate/Area] 77.2 mL/min - PINF [facility] Comment on above: Calculation based on the Chronic Kidney Disease Epidemiology Collaboration (CKD-EPI) equation refit without adjustment for race Glucose [Mass/Vol] 115 mg/dL High 70 - 100 mg/dL [facility] Interpretation and review of laboratory results Abnormal [facility] Potassium [Moles/Vol] 4.2 mmol/L 3.5 - 5.1 mmol/L [facility] Sodium [Moles/Vol] 124 mmol/L Low 135 - 145 mmol/L [facility] Urea nitrogen [Mass/Vol] 21 mg/dL High 7 - 17 mg/dL [facility] CALCIUM, IONIZEDon CALCIUM IONIZED 4.20 mg/dL Low 4.30-5.20 [facility] Comment on above: Performed By: #### L AB54 ####Graphic Design Manager: ELISSA HARRISON ([phone])[facility])[address] [place] [address] PH, IONIZED CALCIUM 7.35 Normal 7.31-7.46 [facility] Comment on above: Performed By: #### L AB54 ####Graphic Design Manager: ELISSA HARRISON ([phone])[facility])[address] [place] [address] CBC (HEMOGRAM)on 01-22-2024 Erythrocyte distribution width (RBC) [Ratio] 14.1 % Normal 11.5-15.0 [facility] Comment on above: Performed By: #### L AB294 ####Graphic Design Manager: ELISSA HARRISON ([phone])[facility])[address] [place] [address] Hematocrit (Bld) [Volume fraction] 33.6 % Low 35.0-47.0 [facility] Comment on above: Performed By: #### L AB294 ####Graphic Design Manager: ELISSA HARRISON ([phone])[facility])[address] [place] [address] Hemoglobin (Bld) [Mass/Vol] 10.9 g/dL Low 11.7-16.0 [facility] Comment on above: Performed By: #### L AB294 ####Graphic Design Manager: ELISSA HARRISON ([id number])[address] MCH (RBC) [Entitic mass] 30.0 pg Normal 26.0-34.0 [facility] Comment on above: Performed By: #### L AB294 ####Graphic Design Manager: ELISSA HARRISON ([phone])[facility] ([facility])[address] [place] [address] MCHC 32.4 % Normal 30.5-36.0 [facility] Comment on above: Performed By: #### L AB294 ####Graphic Design Manager: ELISSA HARRISON ([phone])[facility] ([facility])[address] [place] [address] MCV (RBC) [Entitic vol] 92.6 fL Normal 77.0-99.0 [facility] Comment on above: Performed By: #### L AB294 ####Graphic Design Manager: ELISSA HARRISON ([phone])[facility])[address] [place] [address] Platelet mean volume (Bld) [Entitic vol] 8.5 fL Low 9.0-12.7 [facility] Comment on above: Performed By: #### L AB294 ####Graphic Design Manager: ELISSA HARRISON ([phone])[facility] ([facility])[address] [place] [address] Platelets (Bld) [#/Vol] 289 10*3/uL Normal 140-440 [facility] Comment on above: Performed By: #### L AB294 ####Graphic Design Manager: ELISSA HARRISON ([phone])[facility])[address] [place] [address] RBC (Bld) [#/Vol] 3.63 10*6/uL Low 3.80-5.20 [facility] Comment on above: Performed By: #### L AB294 ####Graphic Design Manager: ELISSA HARRISON ([phone])[facility])[address] [place] [address] WBC (Bld) [#/Vol] 8.9 10*3/uL Normal 3.6-10.7 [facility] Comment on above: Performed By: #### L AB294 ####Graphic Design Manager: ELISSA HARRISON ([phone])[facility] ([facility])[address] [place] [address] CBC panel Auto (Bld)on 01-21 Erythrocyte distribution width (RBC) [Ratio] 14.1 % 11.5 - 15.0 % [facility] Hematocrit (Bld) [Volume fraction] 33.6 % Low 35.0 - 47.0 % [facility] Hemoglobin (Bld) [Mass/Vol] 10.9 g/dL Low 11.7 - 16.0 g/dL [facility] Interpretation and review of laboratory results Abnormal [facility] MCH (RBC) [Entitic mass] 30.0 pg 26.0 - 34.0 pg [facility] MCHC (RBC) [Mass/Vol] 32.4 % 30.5 - 36.0 % [facility] MCV (RBC) [Entitic vol] 92.6 fL 77.0 - 99.0 fL [facility] Platelet mean volume (Bld) [Entitic vol] 8.5 fL Low 9.0 - 12.7 fL [facility] Platelets (Bld) [#/Vol] 289 10*3/uL 140 - 440 10*3/uL [facility] RBC (Bld) [#/Vol] 3.63 10*6/uL Low 3.80 - 5.20 10*6/uL [facility] WBC (Bld) [#/Vol] 8.9 10*3/uL 3.6 - 10.7 10*3/uL [facility] COMPLETE URINALYSISon 2023 BACTERIA (#/HPF) IN URINE Many Abnormal Negative [facility] Comment on above: Performed By: #### L [id number] ####Graphic Design Manager: ELISSA HARRISON ([phone])[facility])[address] BILIRUBIN, TOTAL PRESENCE IN URINE Negative Normal Negative [facility] Comment on above: Performed By: #### L [id number] ####Graphic Design Manager: ELISSA HARRISON ([phone])[facility])[address] [place] [address] Clarity (U) Clear Normal Clear [facility] Comment on above: Performed By: #### L [id number] ####Graphic Design Manager: ELISSA HARRISON ([phone])[facility] ([facility])[address] [place] [address] Color (U) Colorless Normal Lt. Yellow [facility] Comment on above: Performed By: #### L [id number] ####Graphic Design Manager: ELISSA HARRISON ([phone])[facility] ([facility])[address] [place] [address] Glucose (U) [Mass/Vol] 500 mg/dL Abnormal Marina l (<70) [facility] Comment on above: Performed By: #### L [id number] ####Graphic Design Manager: ELISSA HARRISON ([phone])[facility])[address] [place] [address] HEMOGLOBIN PRESENCE IN URINE Negative Normal Negative [facility] Comment on above: Performed By: #### L [id number] ####Graphic Design Manager: ELISSA HARRISON ([phone])[facility] ([facility])[address] [place] [address] HYALINE CASTS (#/LPF) IN URINE SEDIMENT BY MICROSCOPY Negative Normal Negative [facility] Comment on above: Performed By: #### L [id number] ####Graphic Design Manager: ELISSA HARRISON ([phone])[facility] ([facility])[address] [place] [address] Ketones Ql (U) Negative Normal Negative [facility] Comment on above: Performed By: #### L [id number] ####Graphic Design Manager: ELISSA HARRISON ([phone])[facility] ([facility])[address] [place] [address] LEUKOCYTE ESTERASE PRESENCE IN URINE BY TEST STRIP 250 Marquez/uL Abnormal Negative [facility] Comment on above: Performed By: #### L [id number] ####Graphic Design Manager: ELISSA HARRISON ([phone])[facility])[address] [place] [address] NITRITE PRESENCE IN URINE Positive Abnormal Negative [facility] Comment on above: Performed By: #### L [id number] ####Graphic Design Manager: ELISSA HARRISON ([phone])[facility] ([facility])[address] [place] [address] pH (U) 5.5 [pH] Normal 5.0-8.0 [facility] Comment on above: Performed By: #### L [id number] ####Graphic Design Manager: ELISSA HARRISON ([phone])[facility])[address] [place] [address] Protein (U) [Mass/Vol] Negative Normal Negative [facility] Comment on above: Performed By: #### L [id number] ####Graphic Design Manager: ELISSA HARRISON ([phone])[facility])[address] [place] [address] RBC (#/HPF) IN URINE SEDIMENT 3-5 Abnormal 0-2 [facility] Comment on above: Performed By: #### L [id number] ####Graphic Design Manager: ELISSA HARRISON ([phone])[facility] ([facility])[address] [place] [address] Specific gravity (U) [Rel density] 1.005 Normal 1.005-1.03 0 [facility] Comment on above: Performed By: #### L [id number] ####Graphic Design Manager: ELISSA HARRISON ([phone])[facility])[address] [place] [address] SQUAMOUS EPITHELIAL CELLS (#/HPF) IN URINE SEDIMENT 0-2 Normal 3-5 [facility] Comment on above: Performed By: #### L [id number] ####Graphic Design Manager: ELISSA HARRISON ([phone])[facility])[address] [place] [address] UROBILINOGEN (MG/DL) IN URINE Normal Normal Normal (0-1) [facility] Comment on above: Performed By: #### L [id number] ####Graphic Design Manager: ELISSA HARRISON ([phone])[facility])[address] [place] [address] WBC (LEUKOCYTE) (#/HPF) IN URINE SEDIMENT 26-50 Abnormal 0-5 [facility] Comment on above: Performed By: #### L [id number] ####Graphic Design Manager: ELISSA HARRISON ([phone])[facility] ([address] Calcium.ionized [Moles/Vol]O rdered By: Luly Drake on 01-22-2024 Calcium.ionized (Bld) [Moles/Vol] 4.20 mg/dL Low 4.30 - 5.20 mg/dL [facility] Interpretation and review of laboratory results Abnormal [facility] PH, IONIZED CALCIUM 7.35 7.31 - 7.46 [facility] Consulton 01-22-2024 Consult Nephrology Consult N ote Consult date: 01/22/24 2:13 PM Patient: Madelyn Love Room number: [id number] Date of Admit: 01/22/2024 LOS: 0 days Referring physician: Shivam Fitzgerald DO Outpatient [employer] Assistant: Tiara Buck DO Reason for Consult hyponatremia Chief complaint: Lab abnormality Assessment / Plan Madelyn Love is a 78 y.o. female with a past medical history of hypertension, hyponatremia, gastric bypass surgery, cervical myelopathy, type 2 diabetes who was admitted on 01/22/2024 with abnormal lab values sent from PCP. Patient was found to be hyponatremic at her primary care physician's office, labs significant for sodium of 124. #Hyponatremia, sodium 124 - Patient has a history of hyponatremia, to 107, requiring ICU admission in 2021. At that time it was thought to be secondary to excessive fluid intake. - Other than her hyponatremia, she is mildly depressed chloride 91, blood glucose 115, no signs of overt kidney injury. - She is in no acute distress and has really no symptoms at this time. - Home Lasix is currently being held, has been taking 20mg daily as prescribed. - Patient also takes Farxiga at home and has done for the past couple years. In the setting of concurrent diuretic use, this combination has been shown to occasionally induce hyponatremia in some patients. - Kerendia has also been shown to induce hyponatremia in some patients, particularly in those with type 2 diabetes, although this prevalence is low. - Denies any increased fluid intake or decreased PO intake. No significant changes to her diet. - Patient does not appear volume overloaded on exam, no crackles, no edema, no pitting. 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 Acid/base - No significant derangements, bicarb 25 BP/Vol - Patient is normotensive and hemodynamically stable Recommendations - Urine studies pending, urinary sodium, osm, creatinine, as well as serum osm. - Holding fluids pending above studies. - Will recheck renal panel now to assess her response to NS bolus in the ED. - Will check AM cortisol. - Urine random protein/Cr given history of diabetic nephropathy. - Agree with every 8-hour BMP, trend her sodium - Strict Is/Os - Avoid nephrotoxins, hypotension, contrast if possible. - Nephrology will continue to follow. This is a preliminary note and the case will be discussed with the attending physician. Please refer to attending attestation for the most accurate and up to date plan. Thank you for allowing us to participate in the care of this patient. Please call with any questions. Quincy Quintana DO Attending: Pt seen and examined independently from med student/resident. Agree with above HPI/PE/A/P along with my additional recs. 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 She has hx of hyponatremia in the past. (07/2021) Admit for hyponatremia with Na 107, req ICU admit/3% saline, deemed from polydipsia, dc Na 130. Another episode of hyponatremia (07/2023) admit for rectal prolapse with Na 124 -> dc Na 133. Upon d/w primary nephro from [facility] (Dr Tiara Buck), (11/23) Na 136. Home meds include lasix, Kerendia. On this admit, (01/21) Na 124, clinically appears euvolemic. Was given 1 L NS bolus in ER and was ordered NS @ 100 hr. Pt denies drinking too much water but could not actually quantify her po intake. No NSAIDs. Patient was found to be hyponatremic at her primary care physician's office, labs significant for sodium of (01/21) 11 am 124. TSH was 1.394. Checking sOsm, ur Osm, ur Na, and AM cortisol, re-checking RP now. Hold off on giving further fluids until urine indices back. No obvious offending meds. Further recs once labs back Stacie Smith MD [facility] ([facility]) Office phone: [phone] Office fax: [phone] Pager: [phone] 01/22/24 Greater than 60 min of time spent on reviewing primary/solutions consultant notes/outpt records/cumulative labs/previous hosp, FTF time, interpretation of results, documentation, coordination of care History of Present Illness Madelyn Love is a 78 y.o. female with a past medical history of hypertension, hyponatremia, gastric bypass surgery, cervical myelopathy, type 2 diabetes who was admitted on 01/22/2024 with abnormal lab values sent from PCP. Patient was found to be hyponatremic at her primary care physician's office, labs significant for sodium of 124. Patient also admitted earlier t (more content not included)... Normal [facility] ED Nursing Noteon 01-22-2024 ED Nursing Note Medic at bedside to transport pt to on bed worker. Pt alert and stable, no signs of distress at this time Corinne Sarmiento RN 01/22/24 1332 Normal [facility] ED Provider Noteon 4 ED Provider Note EMERGENCY DEPARTMENT ENCOUNTER Pt Name: Madelyn Love Birthdate 1945 Date of evaluation: 01/22/2024 ED Provider: Yasir Lopez APRN - JOD[facility] EDcare was supervised by Dr. Ja De La Cruz who independently examined and evaluated the patient. Please see their attestation note for further details. CHIEF COMPLAINT Chief Complaint Patient presents with Abnormal Lab Pt was sent in to ED by pcp for hyponatremia. Last lab draw was yesterday, but pt states that her sodium levels have been trending down. Pt denies any complaints, any pain, or any concerns. Pt is a/o x 3; breathing is even and unlabored on room air. GCS 15. HISTORY OF PRESENT ILLNESS (Location/Symptom, Timing/Onset, Context/Setting, Quality, Duration, Modifying Factors, Severity) Note limiting factors. I wore appropriate PPE for the entirety of this encounter. History provided by: Patient cisco certified network professional used: Inés Love is a 78 y.o. female with past medical history for hyponatremia, hypocalcemia, diabetes, CKD and iron deficiency anemia presents to the emergency department on recommendation from her PCP due to low sodium level of 124. Patient states that labs were drawn yesterday at her PCPs office. Patient denies confusion, weakness, fever, chills, seizures, chest pain or shortness of breath. Nursing Notes were reviewed. Limitations to history: None Outside historians: None REVIEW OF SYSTEMS Review of Systems Constitutional: Negative for chills and fever. Respiratory: Negative for shortness of breath. Cardiovascular: Negative for chest pain. Neurological: Negative for seizures and weakness. Psychiatric/Behavioral: Negative for confusion. All other systems reviewed and are negative. Pertinent positives and negatives as per HPI. PAST MEDICAL HISTORY 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 Dysuria 07/11/2021 Edema of lower extremity 10/17/2021 Esophageal reflux 05/07/2006 Essential hypertension, benign 01/05/2021 Fatigue 11/07/2022 GERD (gastroesophageal reflux disease) Heart valve disease 11/07/2022 History of delirium 11/12/2021 History of fall 07/11/2021 Hypoalbuminemia 12/09/2021 Hypocalcemia 07/12/2021 Hyponatremia 07/09/2021 Intestinal malabsorption 11/07/2022 Iron deficiency anemia 11/07/2022 Midline cystocele 01/21/2020 Morbid obesity (HCC) 11/07/2022 Osteoarthritis 01/05/2021 knees and back knees and back Other diseases of lung, not elsewhere classified 09/24/2007 Psychosis (HCC) 01/04/2021 Secondary hyperparathyroidism ([facility]) 07/12/2021 Skin lesion 11/07/2022 Stage 2 chronic kidney disease 05/14/2017 Steatorrhea 11/07/2022 Thrombosed external hemorrhoids 11/07/2022 Type 2 diabetes mellitus without complication, without long-term current use of insulin ([facility]) (HCC) 07/12/2021 Urge incontinence 01/21/2020 Urinary tract infectious disease 11/07/2022 Venous (peripheral) insufficiency 03/06/2005 Vitamin D deficiency 10/30/2021 SURGICAL HISTORY Past Surgical History: Procedure Laterality Date SPINAL CORD STIMULATOR IMPLANT 09/03/2021 CURRENT MEDICATIONS Current Discharge Medication List CONTINUE these medications which have NOT CHANGED Details aspirin 81 MG EC tablet Take 81 mg by mouth in the morning and 81 mg in the evening. Calcium Citrate-Vitamin D (Calcium Citrate + D3) 250-5 MG-MCG tablet Take 1,200 mg by mouth 3 times daily. carvedilol (Coreg) 25 MG tablet Take 25 mg by mouth in the morning and 25 mg in the evening. Take with meals. dapagliflozin (Farxiga) 5 MG Take 5 mg by mouth daily. furosemide (Lasix) 20 MG tablet Take 20 mg by mouth daily. gabapentin (Neurontin) 300 MG capsule Take 300 mg by mouth 3 times daily. Kerendia 10 MG tablet Take 1 tablet by mouth daily. melatonin 3 MG tablet Take 3 mg by mouth. mirabegron ER (Myrbetriq) 25 MG 24 hr tablet Take 25 mg by mouth daily. Do not crush, chew, or split. pantoprazole (ProtoNix) 40 MG EC tablet Take 40 mg by mouth every morning (before breakfast). Do not crush, chew, or split. Potassium 75 MG tablet Take by mouth. telmisartan (MIcarDIS) 40 MG tablet Take 40 mg by mouth in the morning and 40 mg in the evening. Take before meals. haloperidol (Haldol) 0.5 MG tablet Take 0.5 mg by mouth in the morning. ALLERGIES Corticosteroids, Rofecoxib, Mirabegron, Nsaids, and Tramadol FAMILY HISTORY No family history on file. SOCIAL HISTORY Social History Socioeconomic History Marital status: Tobacco Use Sm (more content not included)... Normal [facility] ED Provider Note Emergency Department Encounter [facility] EMERGENCY DEPT Patient: Madelyn Love : 1945 Date of Evaluation: 01/22/2024 ED Supervising Physician: Ja De La Cruz MD I personally evaluated Madelyn Love and made/approved the management plan and take responsibility for the patient management. This will serve as my Supervisory note and shared attestation. I did perform a substantive portion of the visit including all aspects of the Medical Decision Making. I wore appropriate PPE for the entirety of this encounter. In brief, Madelyn Love is a 78 y.o. that presents to the emergency department for evaluation of low sodium. Patient had lab work performed by her primary care physician, Dr. Julio. Reportedly her sodium levels have been trending down recently. Patient has no complaints. Patient has had issues with hyponatremia in the past. Unsure of the etiology. Focused exam: Awake and alert, no appear distress. Resting comfortably in the chair. Skin is warm, dry, intact. Heart lung sounds are normal with normal heart rate and respiratory rate. Normal respiratory effort. Abdomen is soft, nondistended, nontender. Remedies unremarkable. Brief ED course/MDM: Patient presents emergency room for evaluation of hyponatremia found on outpatient workup by her primary care physician. Reportedly sodium levels have been trending down recently. CBC, BMP, mag, Phos, and urinalysis obtained in the ED. Hyponatremia confirmed at 124 with blood glucose of 115. Chloride also depressed at 91. No other significant arrangements on labs. Urinalysis does indicate urinary tract infection patient started on IV Rocephin here in the ED pending urine cultures. Urine osmolarity and urine sodium ordered and are pending. Patient will be admitted for continued evaluation and monitoring. Diagnostics interpreted by me: none I personally discussed the patient's management with other clinicians: none All diagnostic, treatment, and disposition decisions were made by myself in conjunction with the NICHOLAS. For all further details of the patient's emergency department visit, please see their documentation. (Comment: Please note this report has been produced using speech recognition software and may contain errors related to that system including errors in grammar, punctuation, and spelling, as well as words and phrases that may be inappropriate. If there are any questions or concerns please feel free to contact the dictating provider for clarification.) Ja De La Cruz MD [facility] [place] Ja De La Cruz MD 01/22/24 1135 Normal [facility] HEPATIC FUNCTION PANELon Albumin [Mass/Vol] 3.6 g/dL Normal 3.5-5.0 [facility] Comment on above: Performed By: #### L AB113, [id number], LAB15, [id number], LAB20 ####Graphic Design Manager: ELISSA HARRISON ([phone])[facility])[address] [place] [address] ALP [Catalytic activity/Vol] 197 U/L High 38-126 [facility] Comment on above: Performed By: #### L AB113, [id number], LAB15, [id number], LAB20 ####Graphic Design Manager: ELISSA HARRISON ([phone])[facility])[address] [place] [address] ALT [Catalytic activity/Vol] 20 U/L Normal 0-34 [facility] Comment on above: Performed By: #### L AB113, [id number], LAB15, [id number], LAB20 ####Graphic Design Manager: ELISSA HARRISON ([phone])[facility])[address] [place] [address] AST [Catalytic activity/Vol] 28 U/L Normal 15-46 [facility] Comment on above: Performed By: #### L AB113, [id number], LAB15, [id number], LAB20 ####Graphic Design Manager: ELISSA HARRISON ([phone])[address] Bilirubin [Mass/Vol] 0.3 mg/dL Normal 0.2-1.3 [facility] Comment on above: Performed By: #### L AB113, [id number], LAB15, [id number], LAB20 ####Graphic Design Manager: ELISSA [id number])[facility] ([facility])[address] [place] [address] Bilirubin.indirect [Mass/Vol] 0.0 mg/dL Normal 0.0-0.3 [facility] Comment on above: Performed By: #### L AB113, [id number], LAB15, [id number], LAB20 ####Graphic Design Manager: ELISSA HARRISON ([phone])[facility])[address] [place] [address] Protein [Mass/Vol] 6.4 g/dL Normal 6.3-8.2 [facility] Comment on above: Performed By: #### L AB113, [id number], LAB15, [id number], LAB20 ####Graphic Design Manager: ELISSA HARRISON ([phone])[facility] ([facility])[address] [place] [address] Hepatic function 2000 panelo n 01-22-2024 Albumin [Mass/Vol] 3.6 g/dL 3.5 - 5.0 g/dL [facility] ALP [Catalytic activity/Vol] 197 U/L High 38 - 126 U/L [facility] ALT [Catalytic activity/Vol] 20 U/L 0 - 34 U/L [facility] AST [Catalytic activity/Vol] 28 U/L 15 - 46 U/L [facility] Bilirubin [Mass/Vol] 0.3 mg/dL 0.2 - 1 .3 mg/dL [facility] Bilirubin.conjugated [Mass/Vol] 0.0 mg/dL 0.0 - 0.3 mg/dL [facility] Interpretation and review of laboratory results Abnormal [facility] Protein [Mass/Vol] 6.4 g/dL 6.3 - 8.2 g/dL [facility] IDNon 01-22-2024 IDN Problem: Pain - Adul t Goal: Verbalizes/displays adequate comfort level or baseline comfort level Outcome: Progressing Problem: Discharge Planning Goal: Discharge to home or other facility with appropriate resources Outcome: Progressing Problem: Chronic Conditions and Co-morbidities Goal: Patient's chronic conditions and co-morbidity symptoms are monitored and maintained or improved Outcome: Progressing The patient is Moderately Stable - Low risk of patient condition declining or worsening Normal [facility] Laboratory - Chemistry and C hemistry - challengeon 01-22-2024 Glucose [Mass/Vol] 144 mg/dL High 70 - 100 mg/dL [facility] Magnesium [Mass/Vol] 2.2 mg/dL 1.6 - 2 .3 mg/dL [facility] TSH Qn 1.394 m[IU]/L [facility] Magnesium [Mass/Vol] 2.2 mg/dL 1.6 - 2 .3 mg/dL [facility] MAGNESIUMon 01-22-2024 Magnesium [Mass/Vol] 2.2 mg/dL Normal 1.6-2.3 [facility] Comment on above: Performed By: #### L AB19, [id number] ####Graphic Design Manager: ELISSA HARRISON ([phone])[facility])[address] [place] [address] Magnesium [Mass/Vol] 2.2 mg/dL Normal 1.6-2.3 [facility] Comment on above: Performed By: #### L AB113, [id number], LAB15, [id number], LAB20 ####Graphic Design Manager: ELISSA HARRISON ([phone])[facility] ([facility])[address] [place] [address] [place] Magnesium [Mass/Vol]on 01-21 Interpretation and review of laboratory results Normal [facility] No Panel Informationon 01-21 Interpretation and review of laboratory results Abnormal [facility] Performed by: [facility], [address] [place] [address] CLIA ID: [id number] [facility] Interpretation and review of laboratory results Normal [facility] PHOSPHORUSon 01-22-2024 Phosphate [Mass/Vol] 4.3 mg/dL Normal 2.5-4.5 [facility] Comment on above: Performed By: #### L AB113, [id number], LAB15, [id number], LAB20 ####Graphic Design Manager: ELISSA HARRISON ([id number])[facility] ([facility])[address] [place] [address] [place] Phosphate [Moles/Vol]on 01-01 Phosphate [Mass/Vol] 4.3 mg/dL 2.5 - 4 .5 mg/dL [facility] RENAL FUNCTION PANELon 01-21 Albumin [Mass/Vol] 3.5 g/dL Normal 3.5-5.0 [facility] Comment on above: Performed By: #### L AB19, [id number] ####Graphic Design Manager: ELISSA HARRISON ([phone])[facility])[address] [place] [address] Anion gap [Moles/Vol] 10 mmol/L Normal 3-13 [facility] Comment on above: Performed By: #### L AB19, [id number] ####Graphic Design Manager: ELISSA HARRISON ([phone])[facility] ([facility])[address] [place] [address] Calcium [Mass/Vol] 7.7 mg/dL Low 8.4-10.4 [facility] Comment on above: Performed By: #### L AB19, [id number] ####Graphic Design Manager: ELISSA HARRISON ([phone])[facility])[address] [place] [address] [place] Chloride [Moles/Vol] 94 mmol/L Low 98-107 [facility] Comment on above: Performed By: #### L AB19, [id number] ####Graphic Design Manager: ELISSA HARRISON ([phone])[facility] ([facility])[address] [place] [address] [place] CO2 [Moles/Vol] 20 mmol/L Low 22-30 [facility] Comment on above: Performed By: #### L AB19, [id number] ####Graphic Design Manager: ELISSA HARRISON ([phone])[facility] ([facility])[address] [place] [address] [place] Creatinine [Mass/Vol] 0.75 mg/dL Normal 0.52-1.04 [facility] Comment on above: Performed By: #### L AB19, [id number] ####Graphic Design Manager: ELISSA HARRISON ([phone])[facility] ([facility])[address] [place] [address] [place] GLOMERULAR FILTRATION RATE ML/MIN/1.73 SQ M.PREDICTED 82.1 mL/min/1.73m*2 Normal >60.0 [facility] Comment on above: Result Comment: Calc ulation based on the Chronic Kidney Disease Epidemiology Collaboration (CKD-EPI) equation refit without adjustment for race Performed By: #### L AB19, [id number] ####Graphic Design Manager: ELISSA HARRISON ([phone])[facility] ([facility])[address] [place] [address] Glucose [Mass/Vol] 198 mg/dL High 70-100 [facility] Comment on above: Performed By: #### L AB19, [id number] ####Graphic Design Manager: ELISSA HARRISON ([phone])[facility])[address] [place] [address] Phosphate [Mass/Vol] 4.1 mg/dL Normal 2.5-4.5 [facility] Comment on above: Performed By: #### L AB19, [id number] ####Graphic Design Manager: ELISSA HARRISON ([id number])[facility] ([facility])[address] [place] [address] Potassium [Moles/Vol] 4.0 mmol/L Normal 3.5-5.1 [facility] Comment on above: Performed By: #### L AB19, [id number] ####Graphic Design Manager: ELISSA HARRISON ([id number])[facility] ([facility])[address] [place] [address] Sodium [Moles/Vol] 124 mmol/L Low 135-145 [facility] Comment on above: Performed By: #### L AB19, [id number] ####Graphic Design Manager: ELISSA HARRISON ([id number])[facility] ([facility])[address] [place] [address] [place] Urea nitrogen [Mass/Vol] 23 mg/dL High 7-17 [facility] Comment on above: Performed By: #### L AB19, [id number] ####Graphic Design Manager: ELISSA HARRISON ([id number])[facility] ([facility])[address] [place] [address] [place] Renal function 2000 panelon 01-22-2024 Albumin [Mass/Vol] 3.5 g/dL 3.5 - 5.0 g/dL [facility] Anion gap [Moles/Vol] 10 mmol/L 3 - 13 mmol/L [facility] Calcium [Mass/Vol] 7.7 mg/dL Low 8.4 - 10. 4 mg/dL [facility] Chloride [Moles/Vol] 94 mmol/L Low 98 - 10 7 mmol/L [facility] CO2 [Moles/Vol] 20 mmol/L Low 22 - 30 mmol/L [facility] Creatinine [Mass/Vol] 0.75 mg/dL 0.52 - 1.04 mg/dL [facility] GFR/1.73 sq M.predicted (S/P/Bld) [Vol rate/Area] 82.1 mL/min - PINF [facility] Comment on above: Calculation based on the Chronic Kidney Disease Epidemiology Collaboration (CKD-EPI) equation refit without adjustment for race Glucose [Mass/Vol] 198 mg/dL High 70 - 100 mg/dL [facility] Interpretation and review of laboratory results Abnormal [facility] Phosphate [Mass/Vol] 4.1 mg/dL 2.5 - 4 .5 mg/dL [facility] Potassium [Moles/Vol] 4.0 mmol/L 3.5 - 5.1 mmol/L [facility] Sodium [Moles/Vol] 124 mmol/L Low 135 - 145 mmol/L [facility] Urea nitrogen [Mass/Vol] 23 mg/dL High 7 - 17 mg/dL [facility] THYROID STIMULATING HORMONEo n 01-22-2024 THYROID STIMULATING HORMONE 1.394 uIU/mL Normal 0.465-4.68 0 [facility] Comment on above: Performed By: #### L AB113, [id number], LAB15, [id number], LAB20 ####Graphic Design Manager: ELISSA HARRISON ([phone])[facility] ([address] TSH Qnon 01-22-2024 Interpretation and review of laboratory results Normal [facility] URINE CULTUREon 01-22-2024 Bacteria identified Cx Nom (U) URINE CULTURE (A) Reference KLEBSIELLA PNEUMONIAE >100,000 CFU/mL Klebsiella pneumoniae (A) Organism: KLEBSIELLA PNEUMONIAE Antibiotic ALAN Interpretation Status Amoxicillin / Clavulanate 8 ug/ml S F Ampicillin >=32 ug/ml R F Ampicillin / Sulbactam >=32 ug/ml R F Aztreonam <=1 ug/ml S F Cefazolin <=4 ug/ml S F Cefepime <=1 ug/ml S F Ceftriaxone <=1 ug/ml S F Ciprofloxacin 0.5 ug/ml S F Gentamicin <=1 ug/ml S F Meropenem <=0.25 ug/ml S F Nitrofurantoin 128 ug/ml R F Piperacillin / Tazobactam 16 ug/ml S F Trimethoprim / Sulfamethoxazole <=20 ug/ml S F [ S = SUSCEPTIBLE R = RESISTANT I = INTERMEDIATE S-DD = Susceptible-dose dependent NS = Non-susceptible NO = No Interpretation ] Normal [facility] Comment on above: Performed By: #### L [id number] ####Graphic Design Manager: ELISSA HARRISON ([phone])[facility] ([address] Urinalysis complete panel (U )Ordered By: Lizette Horn on 01-22-2024 Bacteria LM.HPF (Urine sed) [#/Area] Many Abnormal Negative /HPF [facility] Bilirubin Ql (U) Negative Negative mg/dL [facility] Clarity (U) Clear Clear [facility] Color (U) Colorless Lt. Yellow [facility] Epithelial cells.squamous LM.HPF (Urine sed) [#/Area] 0-2 [facility] Glucose Ql (U) 500 mg/dL Abnormal Normal (<70) [facility] Hemoglobin Ql (U) Negative Negative mg/dL [facility] Hyaline casts Auto (Urine sed) [#/Area] Negative Negative /LPF [facility] Interpretation and review of laboratory results Abnormal [facility] Ketones (U) [Mass/Vol] Negative Negat alvaro mg/dL [facility] Leukocyte esterase Test strip Ql (U) 250 Abnormal Negative Marquez/uL [facility] Nitrite Ql (U) Positive Abnormal Negative [facility] pH (U) 5.5 [pH] 5.0 - 8.0 pH [facility] Protein (U) [Mass/Vol] Negative Negat alvaro mg/dL [facility] RBC LM.HPF (Urine sed) [#/Area] 3-5 Abnormal [facility] Specific gravity (U) [Rel density] 1.005 1.005 - 1.030 [facility] Urobilinogen (U) [Mass/Vol] Normal Normal (0-1) mg/dL [facility] WBC LM.HPF (Urine sed) [#/Area] 26-50 Abnormal [facility] CT PELVIS W/O CONTRASTon CT PELVIS W/O CONTRAST ORIGINAL EXAMINATION: CT OF THE PELVIS WITHOUT CONTRAST 12/03/2023 11:12 am TECHNIQUE: CT of the pelvis was performed without the administration of intravenous contrast. Multiplanar reformatted images are provided for review. Adjustment of mA and/or kV according to patient size was utilized. Automated exposure control, iterative reconstruction, and/or weight based adjustment of the mA/kV was utilized to reduce the radiation dose to as low as reasonably achievable. COMPARISON: None. HISTORY ORDERING SYSTEM PROVIDED HISTORY: Reason for Exam: PELVIC AND PERINEAL PAIN FINDINGS: Extraluminal gas is seen in the extraperitoneal compartment of the pelvis, most pronounced near the right anterolateral margin of the bladder. No air is seen within the bladder. There is no evidence of air tracking to the perineum. Surgical changes seen in the small bowel. There are surgical changes in the visualized lower lumbar spine. There is a fracture near the junction of the anterior column of the acetabulum with the left superior pubic ramus. There is also a mildly comminuted fracture of the left inferior pubic ramus. Both of these fractures appear partially remodeled. Nondisplaced left sacral fracture seen. Fluid seen in the presacral space. There are some hemorrhagic products in the left the obturator internus. Atherosclerotic vascular calcifications seen. There is a partially visualized neurostimulator device. There is surgical change across the right sacroiliac joint. IMPRESSION: 1. Extraluminal gas is seen in the extraperitoneal compartment of the pelvis, most pronounced near the right anterolateral margin of the bladder. It is unclear if the air is within the bladder wall or adjacent to the bladder wall. There is no evidence of air tracking to the perineum. It is unclear if this air is related to trauma, infection or other cause. Clinical correlation needed. CT abdomen and pelvis with contrast advised 2. There are subacute but incompletely remodeled fractures of the left superior and inferior pubic rami. There is also a nondisplaced left sacral fracture. Presacral fluid noted. 3. Edema/hemorrhage in the left obturator internus 4. Other incidental findings, as above. Findings were discussed with KATHY MCCARTY at 11:49 am on 12/03/2023. Interpreted by: Samuel Ervin MD Preliminary Report By: Samuel Ervin MD Electronically signed By Samuel Ervin MD Dictated Date: 12/03/2023 11:19:52 AM Prelim Date: 12/03/2023 11:52:39 AM Sign Date: 12/03/2023 11:52:39 AM Ordering Provider: KATHY MCCARTY [facility] ([place]) 24 hour urine alpha 2 globul in/total protein ratio by electrophoresis (mass fraction)Ordered By: Aleksey Hill on 05-08-2023 Alpha 2 globulin Elph (24H U) [Mass fraction] 7.0 % . [facility] 24 hour urine beta globulin/ total protein ratio by electrophoresis (mass fraction)Ordered By: Aleksey Hill on 05-08-2023 Beta globulin Elph (24H U) [Mass fraction] 16.6 % . [facility] [facility] 24 hour urine gamma globulin /total protein ratio by electrophoresis (mass fraction)Ordered By: Aleksey Hill on 05-08-2023 Gamma globulin Elph (24H U) [Mass fraction] 12.2 % . [facility] Basophil percentageOrdered B y: Aleksey Hill on 05-08-2023 Basophil percentage 4 ug/L 0-9 [facility] Comment on above: Detection Limit = 1 Blood mercury measurement (m ass/volume)Ordered By: Aleksey Hill on 05-08-2023 Mercury (Bld) [Mass/Vol] < 1.0 ug/L 0.0-14.9 [facility] Comment on above: Environmental Exposu re: <15.0 Occupational Exposure: LORRAINE - Inorganic Mercury: 15.0 Detection Limit = 1.0Performed at: [facility] [id number] Director: Jovon Cortes PhD, Phone: [phone] at: [facility] [id number] Director: Joan Ye MD, Phone: [phone] Erythrocyte sedimentation ra teOrdered By: Aleksey Hill on 05-08-2023 ESR (Bld) [Velocity] 4 mm/h 0-30 [facility] Laboratory - Chemistry and C hemistry - challengeOrdered By: Aleksey Hill on 05-08-2023 Albumin [Mass/Vol] 3.8 g/dL 2.9-4.4 [facility] Cobalamin (Vitamin B12) [Mass/Vol] 1363 pg/mL 211-911 [facility] No Panel InformationOrdered By: Aleksey Hill on 05-08-2023 Addendum Document Comment . [facility] Comment on above: The SPE pattern appe ars unremarkable. Evidence ofmonoclonal protein is not apparent. Ukvvq-6-Ycahluwis 0.1 g/dL 0.0-0.4 [facility] Imwox-7-Tyhuqoxmo 0.8 g/dL 0.4-1.0 [facility] Gamma Globulins 0.7 g/dL 0.4-1.8 [facility] Lead < 1.0 ug/dL 0.0-3.4 [facility] Comment on above: Testing performed by Inductively coupled plasma/MassSpectrometry. Environmental Exposure: WHO Recommendation <5.0 Occupational Exposure: OSHA Lead Std 40.0 LORRAINE 30.0 Detection Limit = 1.0 Serum Immunofixation Comment . [facility] Comment on above: No monoclonality det ected. Urine Immunofixation PEP Note Comment . [facility] Comment on above: Protein electrophore sis scan will follow via computer,mail, or visual design lead delivery. Protein Fractions Elph [Inte rp]Ordered By: Aleksey Hill on 05-08-2023 Protein Fractions [Interp] Comment . [facility] Comment on above: Protein electrophore sis scan will follow via computer,mail, or visual design lead delivery. Serum albumin to globulin ra jazlyn by protein electrophoresisOrdered By: Aleksey Hill on 05-08-2023 Albumin/Globulin Elph [Mass ratio] 1.5 0.7-1.7 [facility] Serum globulin measurement ( mass/volume)Ordered By: Aleksey Hill on 05-08-2023 Globulin (S) [Mass/Vol] 2.5 g/dL 2.2-3.9 [facility] Serum or plasma C reactive p rotein measurement (mass/volume)Ordered By: Aleksey Hill on 05-08-2023 CRP [Mass/Vol] mg/L 0.0-3.0 [facility] Comment on above: C-Reactive Protein ( CRP) provides useful information for thediagnosis, therapy and monitoring of inflammatory processesand associated diseases. For the evaluation of Relative Riskfor Cardiovascular Disease, a High Sensitivity CRP (HSCRP)should be ordered. Serum or plasma IgA measurem ent (mass/volume)Ordered By: Aleksey Hill on 05-08-2023 IgA [Mass/Vol] 230 mg/dL 64-422 [facility] Serum or plasma IgG measurem ent (mass/volume)Ordered By: Aleksey Hill on 05-08-2023 IgG [Mass/Vol] 749 mg/dL [id number] [facility] Serum or plasma IgM measurem ent (mass/volume)Ordered By: Aleksey Hill on 05-08-2023 IgM [Mass/Vol] 128 mg/dL 26-217 [facility] Serum or plasma beta globuli n measurement by electrophoresis (mass/volume)Ordered By: Aleksey Hill on 05-08-2023 Beta globulin Elph [Mass/Vol] 0.9 g/dL 0.7-1.3 [facility] Serum or plasma protein mono clonal measurement by electrophoresis (mass/volume)Ordered By: Aleksey Hill on 05-08-2023 Protein.monoclonal Elph [Mass/Vol] Not Observed g/dL Not Observed [facility] Total protein bloodOrdered B y: Aleksey Hill on 05-08-2023 Protein [Mass/Vol] 6.3 g/dL 6.0-8.5 [facility] Urine albumin/total protein mass ratio by electrophoresisOrdered By: Aleksey Hill on 05-08-2023 Albumin Elph (U) [Mass fraction] 61.1 % . [facility] Urine alpha 1 globulin/total protein ratio by electrophoresis (mass fraction)Ordered By: Aleksey Hill on 05-08-2023 Alpha 1 globulin Elph (U) [Mass fraction] 3.0 % . [facility] Urine monoclonal protein/tot al protein mass ratio by electrophoresisOrdered By: Aleksey Hill on 05-08-2023 Protein.monoclonal Elph (U) [Mass fraction] See comment [facility] Comment on above: NOT OBSERVED Urine protein measurement (m ass/volume)Ordered By: Aleksey Hill on 05-08-2023 Protein (U) [Mass/Vol] 28.2 mg/dL Not Estab. [facility] Basophil percentageOrdered B y: Hugo Julio on 05-01-2023 Basophil percentage 25-50 SEEN /hpf 0-5 [facility] Bilirubin Test strip Ql (U)O rdered By: Hugo Julio on 05-01-2023 Bilirubin Ql (U) Negative Negative [facility] Culture, urineOrdered By: Amber Julio on 05-01-2023 Bacteria identified Cx Nom (U) Klebsiella pneumoniae sp pneum [facility] Ketones Test strip Ql (U)Ord ered By: Hugo Julio on 05-01-2023 Ketones Ql (U) Negative Negative [facility] Mucus LM Ql (Urine sed)Order ed By: Hugo Julio on 05-01-2023 Mucus Ql (Urine sed) 0 SEEN /hpf [facility] Nitrite Test strip Ql (U)Ord ered By: Hugo Julio on 05-01-2023 Nitrite Ql (U) Negative Negative [facility] Protein Test strip Ql (U)Ord ered By: Hugo Julio on 05-01-2023 Protein Ql (U) 100 mg/dl Negative [facility] Squamous epithelial cells de tection in urine sediment by light microscopyOrdered By: Hugo Julio on 05-01-2023 Epithelial cells.squamous LM Ql (Urine sed) 0-5 SEEN /hpf 5-10 [facility] Urine blood detectionOrdered By: Hugo Julio on 05-01-2023 RBC Ql (U) 250 /ul Negative [facility] RBC Ql (U) 5-10 SEEN /hpf 0-5 [facility] Urine clarityOrdered By: Lori Julio on 05-01-2023 Clarity (U) Sl. Cloudy Clear [facility] Urine color determinationOrd ered By: Hugo Julio on 05-01-2023 Color (U) Yellow Yellow [facility] Urine glucose detectionOrder ed By: Hugo Julio on 05-01-2023 Glucose Ql (U) 1000 mg/dl Normal [facility] Urine leukocyte esterase det ection by dipstickOrdered By: Hugo Julio on 05-01-2023 Leukocyte esterase Test strip Ql (U) 500 /ul Negative [facility] Urine pHOrdered By: Hugo hernandez on 05-01-2023 pH (U) 6.0 [pH] 5.0 - 8.0 [facility] Urine sediment bacteria coun t by microscopy (number/high power field)Ordered By: Hugo Julio on 05-01-2023 Bacteria LM.HPF (Urine sed) [#/Area] 2 /[HPF] None Seen [facility] Urine specific gravity measu rementOrdered By: Hugo Julio on 05-01-2023 Specific gravity (U) [Rel density] 1.015 1.002-1.03 0 [facility] Urobilinogen Auto test strip Ql (U)Ordered By: Hugo Julio on 05-01-2023 Urobilinogen Ql (U) Normal mg/dl Normal [facility] Basophil percentageOrdered B y: David Puga on 04-28-2023 Bilirubin [Mass/Vol] 0.40 mg/dL 0.20-1.00 [facility] Comment on above: For patients on eltr ombopag therapy, use of Dimension Van [place] TBIL is not recommended. Chloride [Moles/Vol] 98 mmol/L 98-107 [facility] Glucose [Mass/Vol] 115 mg/dL 74-106 [facility] Comment on above: Fasting Glucose resu lt from 100 to 125 mg/dL suggests IMPAIRED HOMEOSTASIS per A.D.A. criteria. Potassium [Moles/Vol] 3.7 mmol/L 3.5-5.1 [facility] Protein [Mass/Vol] 7.7 g/dL 6.4-8.2 [facility] Sodium [Moles/Vol] 135 mmol/L 136-145 [facility] Laboratory - Chemistry and C hemistry - challengeOrdered By: David Puga on 04-28-2023 ALP [Catalytic activity/Vol] 76 U/L 45-117 [facility] ALT [Catalytic activity/Vol] 28 U/L 13-56 [facility] CO2 [Moles/Vol] 30.0 mmol/L 21.0-32.0 [facility] Globulin (S) [Mass/Vol] 4.1 g/dL 2.2-4.2 [facility] Magnesium [Mass/Vol] 2.6 mg/dL 1.6-2.6 [facility] Urea nitrogen/Creatinine [Mass ratio] 15.0 mg/mg 10-20 [facility] No Panel InformationOrdered By: David Puga on 04-28-2023 Estimated GFR (MDRD) Amer 75 mL/min >60 [facility] Comment on above: GFR Calc Estimated GFR (MDRD) Non-Af Amer 62 mL/min >60 [facility] Comment on above: Non- GFR Calc Parathyroid Hormone (Intact) 59.9 pg/mL 18.4-80.1 [facility] Serum or plasma albumin shane urement (mass/volume)Ordered By: David Puga on 04-28-2023 Albumin [Mass/Vol] 3.6 g/dL 3.2-5.0 [facility] Serum or plasma albumin/glob ulin mass ratioOrdered By: David Puga on 04-28-2023 Albumin/Globulin [Mass ratio] 0.9 {ratio} 0.9-2.4 [facility] Serum or plasma calcium shane urement (mass/volume)Ordered By: David Puga on 04-28-2023 Calcium [Mass/Vol] 9.0 mg/dL 8.5-10.1 [facility] Serum or plasma creatinine m easurement (mass/volume)Ordered By: David Puga on 04-28-2023 Creatinine [Mass/Vol] 0.93 mg/dL 0.55-1.02 [facility] Comment on above: The validity of the calculated GFR & GFRAA in patients over 70 years has not been determined. Clinical correlation is essential. Serum or plasma urea nitroge n measurement (mass/volume)Ordered By: David Puga on 04-28-2023 Urea nitrogen [Mass/Vol] 14 mg/dL 7-18 [facility] Thin prep Papanicolaou smear with manual screeningOrdered By: David Puga on 04-28-2023 Thin prep Papanicolaou smear with manual screening 26 U/L 15-37 [facility] Thin prep Papanicolaou smear with manual screening 7 5-15 [facility] Whole blood hemoglobin A1c/t otal hemoglobin ratio (mass fraction)Ordered By: David Puga on 04-28-2023 HbA1c (Bld) [Mass fraction] 6.3 % 3.8-5.6 [facility] Comment on above: Normal < 5.7 % Predi abetic 5.7 - 6.4 % Diabetic >or= 6.5 % Please note range changes. Established Visit (Gastroent erology)on 01-16-2023 Established Visit (Gastroenterology) Diagnoses/Problems Assessed Hiatal hernia (553.3) (K44.9) IBS (irritable bowel syndrome) (564.1) (K58.9) Chief Complaint FUV in office today for IBS. Patient states she is better since last visit. Patient states she was taken off Aricept and has improved. Patient still reports unable to go anywhere in the AM until she has a successful BM History of Present IllnessEileen is seen today in routine follow-up is doing well with current medical therapy neurologist taking her off of her Aricept she is doing well without treatment been off 3 months having no decline in mental function continues to have formed stool with cholestyramine does tend to have most of her bowel movements in the morning which limits her ability to leave the house but is overall better. She is concerned about long-term dose of PPI therapy we discussed weaning off she will begin taking Protonix every other day if having no breakthrough heartburn can go to using as needed if she finds she needs Protonix more than 3 times weekly she should remain on it indefinitely. Review of Systems Constitutional: no fever, no chills, not feeling tired and no recent weight loss. ENT: no lymphadenopathy. Cardiovascular: no shortness of breath and no chest pain. Respiratory: no cough. Gastrointestinal: as noted in HPI. Musculoskeletal: no joint swelling. Integumentary: no rashes, no skin lesions and was no jaundiced. All other systems have been reviewed and are negative for complaint. 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) IBS (irritable bowel syndrome) (564.1) (K58.9) Intestinal bacterial overgrowth (569.89) (K63.89) Irritable bowel syndrome with diarrhea (564.1) (K58.0) Small intestinal bacterial overgrowth (SIBO) (569.89) (K63.89) Steatorrhea (579.8) (K90.9) Urinary incontinence (788.30) (R32) Surgical History Problems History of Bariatric surgery History of Cholecystectomy History of Colonoscopy History of Elbow fracture repair History of Esophagogastroduodenoscopy History of Hysterectomy History of Knee replacement Family History Mother No pertinent family history Father No pertinent family history Social History Problems Denies alcohol consumption (V49.89) (Z78.9) Never a smoker No caffeine use No illicit drug use Patient has living will (V49.89) (Z78.9) Allergies Medication NSAIDs Recorded By: Jane Lobo; 03/15/2020 3:28:11 PM Current Meds Medication NameInstruction Acidophilus Probiotic Blend Oral Capsule amLODIPine Besylate 2.5 MG Oral Tablet Azelastine HCl - 137 MCG/SPRAY Nasal Solution2 (TWO) SPRAY TWICE DAILY NEEDED FOR ALLERGIES Bariatric Fusion Oral Tablet Chewable Cholestyramine 4 GM Oral PacketMIX THE CONTENTS OF 1 POWDER PACKET WITH 2-6 OZ OF NONCARBONATED BEVERAGE AND SWALLOW TWICE DAILY. Citrucel TABS Coreg 6.25 MG Oral Tablet [employer] Natural Fiber Supplement 58.6 % PACKTAKE 1 PACKET BY MOUTH ONCE DAILY. Diclofenac Sodium 1 % External Gel Farxiga 5 MG Oral Tablet Fluorouracil 5 % External Cream Furosemide 20 MG Oral Tablet Ipratropium Anthon 0.03 % Nasal Solution Kerendia 10 MG Oral Tablet Lidocaine-Hydrocortisone Bairon 3-2.5 % Rectal KitUSE DIRECTED. Myrbetriq 25 MG Oral Tablet Extended Release 24 Hour OneTouch Ultra In Vitro StripUSE 1 (ONE) STRIP IN VITRO DAILY Pantoprazole Sodium 40 MG Oral Tablet Delayed ReleaseTAKE 1 TABLET DAILY. Potassium TABS Prolia 60 MG/ML Subcutaneous Solution Prefilled Syringe Rolaids CHEW Telmisartan 40 MG Oral Tablet traMADol HCl - 50 MG Oral Tablet Tylenol 500 MG CAPS Voltaren 1 % GEL Vitals Vital Signs Recorded: [id number] 03:03PM Height4 ft 9.5 in [id number] lb BMI Uqqxatstgu03.54 kg/m2 BSA Calculated1.62 Physical Exam Constitutional General appearance: In no acute distress . Eyes Anicteric Sclerae . Pulmonary Auscultation of lungs: Clear. Cardiovascular Auscultation of heart: RRR without murmur. Examination of extremities for edema: Normal. Abdomen Soft, non-tender. Bowel sounds normal. No hepatomegaly or splenomegaly. Signatures Electronically signed by : Marilia Stubbs DO; Jan 16 2023 4:31PM EST (Author) Normal [employer] Basophil percentageOrdered B y: Tiara Buck on 01-08-2023 Basophil percentage 4.1 mg/dL 2.5-4.9 [facility] Bilirubin [Mass/Vol] 0.40 mg/dL 0.20-1.00 [facility] Comment on above: For patients on eltr ombopag therapy, use of Dimension [place] TBIL is not recommended. Chloride [Moles/Vol] 100 mmol/L 98-107 [facility] Glucose [Mass/Vol] 130 mg/dL 74-106 [facility] Comment on above: Fasting Glucose resu lt greater than or equal to 126 mg/dL suggests DIABETES MELLITUS per A.D.A. criteria. Potassium [Moles/Vol] 4.4 mmol/L 3.5-5.1 [facility] Protein [Mass/Vol] 6.6 g/dL 6.4-8.2 [facility] Sodium [Moles/Vol] 136 mmol/L 136-145 [facility] Laboratory - Chemistry and C hemistry - challengeOrdered By: Tiara Buck on 01-08-2023 ALP [Catalytic activity/Vol] 62 U/L 45-117 [facility] ALT [Catalytic activity/Vol] 25 U/L 13-56 [facility] CO2 [Moles/Vol] 30.0 mmol/L 21.0-32.0 [facility] Globulin (S) [Mass/Vol] 3.4 g/dL 2.2-4.2 [facility] Urea nitrogen/Creatinine [Mass ratio] 16.0 mg/mg 10-20 [facility] No Panel InformationOrdered By: Tiara Buck on 01-08-2023 Urine Microalbumin/Creatinine Ratio 229.8 mg/g CRE <30 [facility] Estimated GFR (MDRD) Amer 69 mL/min >60 [facility] Comment on above: GFR Calc Estimated GFR (MDRD) Non-Af Amer 57 mL/min >60 [facility] Comment on above: Non- GFR Calc Thyroid Stimulating Hormone (TSH) 1.11 uIU/mL 0.358-3.74 [facility] Serum or plasma albumin shane urement (mass/volume)Ordered By: Tiara Buck on 01-08-2023 Albumin [Mass/Vol] 3.2 g/dL 3.2-5.0 [facility] Serum or plasma albumin/glob ulin mass ratioOrdered By: Tiara Buck on 01-08-2023 Albumin/Globulin [Mass ratio] 0.9 {ratio} 0.9-2.4 [facility] Serum or plasma calcium shane urement (mass/volume)Ordered By: Tiara Buck on 01-08-2023 Calcium [Mass/Vol] 9.0 mg/dL 8.5-10.1 [facility] Serum or plasma creatinine m easurement (mass/volume)Ordered By: Tiara Buck on 01-08-2023 Creatinine [Mass/Vol] 1.00 mg/dL 0.55-1.02 [facility] Comment on above: The validity of the calculated GFR & GFRAA in patients over 70 years has not been determined. Clinical correlation is essential. Serum or plasma urea nitroge n measurement (mass/volume)Ordered By: Tiara Buck on 01-08-2023 Urea nitrogen [Mass/Vol] 16 mg/dL 7-18 [facility] Thin prep Papanicolaou smear with manual screeningOrdered By: Tiara Buck on 01-08-2023 Thin prep Papanicolaou smear with manual screening 131.0 mg/L NO RANGE EST. [facility] Thin prep Papanicolaou smear with manual screening 18 U/L 15-37 [facility] Thin prep Papanicolaou smear with manual screening 6 5-15 [facility] Urine creatinine measurement (mass/volume)Ordered By: Tiara Buck on 01-08-2023 Creatinine (U) [Mass/Vol] 57.00 mg/dL NO RANGE EST. [facility] Whole blood hemoglobin A1c/t otal hemoglobin ratio (mass fraction)Ordered By: Tiara Buck on 01-08-2023 HbA1c (Bld) [Mass fraction] 6.8 % 3.8-5.6 [facility] Comment on above: Normal < 5.7 % Predi abetic 5.7 - 6.4 % Diabetic >or= 6.5 % Please note range changes. Absolute lymphocyte counton 11-07-2022 Lymphocytes Auto (Unsp spec) [#/Vol] 1.45 10*3/uL 0.83-4.51 [facility] Basophil percentageon 2022 Basophils/100 WBC (Bld) 0.8 % 0-1 [facility] Bilirubin [Mass/Vol] 0.40 mg/dL 0.20-1.00 [facility] Comment on above: For patients on eltr ombopag therapy, use of Dimension [place] TBIL is not recommended. Chloride [Moles/Vol] 105 mmol/L 98-107 [facility] Eosinophils/100 WBC (Bld) 2.0 % 0-5 [facility] Glucose [Mass/Vol] 304 mg/dL 74-106 [facility] Comment on above: Glucose result great er than or equal to 200 mg/dLsuggests DIABETES MELLITUS per A.D.A. criteria. Neutrophils (Bld) [#/Vol] 4.5 10*3/uL 2.0-7.7 [facility] Neutrophils/100 WBC (Bld) 68.2 % 47-70 [facility] Potassium [Moles/Vol] 4.7 mmol/L 3.5-5.1 [facility] Protein [Mass/Vol] 6.6 g/dL 6.4-8.2 [facility] Sodium [Moles/Vol] 137 mmol/L 136-145 [facility] WBC (Bld) [#/Vol] 6.6 10*3/uL 4.4-11.0 [facility] Blood erythrocytes count (nu mber/volume)on 11-07-2022 RBC (Bld) [#/Vol] 3.97 10*6/uL 4.2-5.4 [facility] Blood hemoglobin measurement (mass/volume)on 11-07-2022 Hemoglobin (Bld) [Mass/Vol] 12.5 g/dL 12.0-15.0 [facility] Blood lymphocytes/100 leukoc yteson 11-07-2022 Lymphocytes/100 WBC (Bld) 21.9 % 19-41 [facility] Blood monocytes/100 leukocyt eson 11-07-2022 Monocytes/100 WBC (Bld) 6.8 % 0-10 [facility] Blood platelet mean volumeon 11-07-2022 Platelet mean volume (Bld) [Entitic vol] 10.0 fL 6.2-12.0 [facility] Determination of erythrocyte mean corpuscular volume (MCV)on 11-07-2022 MCV (RBC) [Entitic vol] 101.0 fL 81-99 [facility] Hematocrit Auto (Bld) [Volum e fraction]on 11-07-2022 Hematocrit (Bld) [Volume fraction] 40.1 % 37-47 [facility] Iron measurement (mass/mass) on 11-07-2022 Iron (Unsp spec) [Mass/Mass] 63 ug/dL 50-170 [facility] Laboratory - Chemistry and C hemistry - challengeon 11-07-2022 ALP [Catalytic activity/Vol] 63 U/L 45-117 [facility] ALT [Catalytic activity/Vol] 41 U/L 13-56 [facility] CO2 [Moles/Vol] 26.0 mmol/L 21.0-32.0 [facility] Cobalamin (Vitamin B12) [Mass/Vol] 1572 pg/mL 211-911 [facility] Globulin (S) [Mass/Vol] 3.4 g/dL 2.2-4.2 [facility] Urea nitrogen/Creatinine [Mass ratio] 14.0 mg/mg 10-20 [facility] Laboratory - Hematology and Cell countson 11-07-2022 Erythrocyte distribution width (RBC) [Entitic vol] 46.5 fL 35.1-43.9 [facility] Erythrocyte distribution width (RBC) [Ratio] 12.5 % 11.6-14.6 [facility] Immature granulocytes/100 WBC (Bld) 0.300 % 0.0-0.9 [facility] Comment on above: IG% - Immature Granu locytes (promyelocytes, myelocytes and metamyelocytes) > 1% indicates that a LEFT SHIFT is Present. MCH (RBC) [Entitic mass] 31.5 pg 27.0-32.0 [facility] Nucleated RBC/100 WBC (Bld) [Ratio] 0 % 0-5 [facility] MCHC Auto (RBC) [Mass/Vol]on 11-07-2022 MCHC (RBC) [Mass/Vol] 31.2 g/dL 32-36 [facility] No Panel Informationon 11-07 Estimated GFR (MDRD) Amer 75 mL/min >60 [facility] Comment on above: GFR Calc Estimated GFR (MDRD) Non-Af Amer 62 mL/min >60 [facility] Comment on above: Non- GFR Calc Parathyroid Hormone (Intact) 28.5 pg/mL 18.4-80.1 [facility] Total Iron Binding Capacity 351 ug/dL 250-450 [facility] Vitamin D 25-Hydroxy 67.5 ng/mL [facility] Comment on above: Vitamin D 25(OH) Sta tus Range Deficiency <20 ng/mL (50nmol/L) Insufficiency 20 - 30 ng/mL (50 - 75 nmol/L) Sufficiency 30 - 100 ng/mL (75 - 250 nmol/L) Toxicity >100 ng/mL (>250 nmol/L) Whole Blood Vitamin B1 Level 195.0 nmol/L 66.5-200.0 [facility] Platelets bldon 11-07-2022 Platelets (Bld) [#/Vol] 234 10*3/uL 150-450 [facility] Serum or plasma albumin shane urement (mass/volume)on 11-07-2022 Albumin [Mass/Vol] 3.2 g/dL 3.2-5.0 [facility] Serum or plasma albumin/glob ulin mass ratioon 11-07-2022 Albumin/Globulin [Mass ratio] 0.9 {ratio} 0.9-2.4 [facility] Serum or plasma calcium shane urement (mass/volume)on 11-07-2022 Calcium [Mass/Vol] 9.0 mg/dL 8.5-10.1 [facility] Serum or plasma creatinine m easurement (mass/volume)on 11-07-2022 Creatinine [Mass/Vol] 0.93 mg/dL 0.55-1.02 [facility] Comment on above: The validity of the calculated GFR & GFRAA in patients over 70 years has not been determined. Clinical correlation is essential. Serum or plasma ferritin agustin surement (mass/volume)on 11-07-2022 Ferritin [Mass/Vol] 56 ng/mL 8-252 [facility] Serum or plasma folate measu rement (mass/volume)on 11-07-2022 Folate [Mass/Vol] 33.30 ng/mL 3.1-55.4 [facility] Serum or plasma iron saturat ion measurement (mass fraction)on 11-07-2022 Iron saturation [Mass fraction] 17.9 % 15.0-55.0 [facility] Serum or plasma urea nitroge n measurement (mass/volume)on 11-07-2022 Urea nitrogen [Mass/Vol] 13 mg/dL 7-18 [facility] Serum or plasma zinc measure ment (mass/volume)on 11-07-2022 Zinc [Mass/Vol] 87 ug/dL 44-115 [facility] Comment on above: Detection Limit = 5P erformed at: - Lab[address] [id number] Director: Joan Ye MD, Phone: [phone] Thin prep Papanicolaou smear with manual screeningon 11-07-2022 Thin prep Papanicolaou smear with manual screening 40 U/L 15-37 [facility] Thin prep Papanicolaou smear with manual screening 6 5-15 [facility] Thin prep Papanicolaou smear with manual screening 96 ug/dL 80-158 [facility] Comment on above: Detection Limit = 5 Established Visit (Gastroent erology)on 10-17-2022 Established Visit (Gastroenterology) Diagnoses/Problems Assessed IBS (irritable bowel syndrome) (564.1) (K58.9) History of Shani-en-Y gastric bypass (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 Patient states it is better now, still having some loose stools worse in the mornings. Patient is taking 2 Citrucel twice a day. Patient states the cholestyramine powder has been helping as well. Bloating after eating. Review of SystemsArlene is doing fantastic her bowel movements have almost normalized she still has frequent stools in the morning but they are semiformed and controllable she will states between 6 and 830 she will have 3 bowel movements predictably every day now. She is no longer having accidents or urgency throughout the day. Constitutional: no fever, no chills, not feeling tired and no recent weight loss. ENT: no lymphadenopathy. Cardiovascular: no shortness of breath and no chest pain. Respiratory: no cough. Gastrointestinal: as noted in HPI. Musculoskeletal: no joint swelling. Integumentary: no rashes, no skin lesions and was no jaundiced. All other systems have been reviewed and are negative for complaint. 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) IBS (irritable bowel syndrome) (564.1) (K58.9) Intestinal bacterial overgrowth (569.89) (K63.89) Irritable bowel syndrome with diarrhea (564.1) (K58.0) Small intestinal bacterial overgrowth (SIBO) (569.89) (K63.89) Steatorrhea (579.8) (K90.9) Urinary incontinence (788.30) (R32) Surgical History Problems History of Bariatric surgery History of Cholecystectomy History of Colonoscopy History of Elbow fracture repair History of Esophagogastroduodenoscopy History of Hysterectomy History of Knee replacement Family History Mother No pertinent family history Father No pertinent family history Social History Problems Denies alcohol consumption (V49.89) (Z78.9) Never a smoker No caffeine use No illicit drug use Patient has living will (V49.89) (Z78.9) Allergies Medication NSAIDs Recorded By: Jane Lobo; 03/15/2020 3:28:11 PM Current Meds Medication NameInstruction Acidophilus Probiotic Blend Oral Capsule amLODIPine Besylate 2.5 MG Oral Tablet Bariatric Fusion Oral Tablet Chewable Cholestyramine 4 GM Oral PacketMIX THE CONTENTS OF 1 POWDER PACKET WITH 2-6 OZ OF NONCARBONATED BEVERAGE AND SWALLOW TWICE DAILY. Citrucel TABS Colestipol HCl - 1 GM Oral TabletTake 1 tablet twice a day Coreg 6.25 MG Oral Tablet [employer] Natural Fiber Supplement 58.6 % PACKTAKE 1 PACKET BY MOUTH ONCE DAILY. Diclofenac Sodium 1 % External Gel Donepezil HCl - 10 MG Oral Tablet Farxiga 5 MG Oral Tablet Furosemide 20 MG Oral Tablet Ipratropium Anthon 0.03 % Nasal Solution Kerendia 10 MG Oral Tablet Lidocaine-Hydrocortisone Bairon 3-2.5 % Rectal KitUSE DIRECTED. Losartan Potassium 50 MG Oral Tablet Magnesium Oxide 400 MG Oral TabletTAKE 1 TABLET BY MOUTH TWICE A DAY MG Plus Protein TABS Myrbetriq 25 MG Oral Tablet Extended Release 24 Hour OneTouch Ultra In Vitro StripUSE 1 (ONE) STRIP IN VITRO DAILY Pantoprazole Sodium 40 MG Oral Tablet Delayed ReleaseTAKE 1 TABLET DAILY. Prolia 60 MG/ML Subcutaneous Solution Prefilled Syringe Rolaids CHEW traMADol HCl - 50 MG Oral Tablet Tylenol 500 MG CAPS Vitamin B12 1000 MCG Oral Tablet Extended Release Vitamin D3 250 MCG (63666 UT) Oral Tablet Vitals Vital Signs Recorded: [id number] 03:47PM Height4 ft 9.5 in Xuasfq844 lb BMI Wylefkooii39.71 kg/m2 BSA Calculated1.53 Physical Exam Constitutional General appearance: In no acute distress . Eyes Anicteric Sclerae . Pulmonary Auscultation of lungs: Clear. Cardiovascular Auscultation of heart: RRR without murmur. Examination of extremities for edema: Normal. Abdomen Soft, non-tender. Bowel sounds normal. No hepatomegaly or splenomegaly. Signatures Electronically signed by : Marilia Stubbs DO; Oct 17 2022 4:32PM EST (Author) Normal [facility] Basophil percentageOrdered B y: Davidewelina Puga on 10-14-2022 Bilirubin [Mass/Vol] 0.40 mg/dL 0.20-1.00 [facility] Comment on above: For patients on eltr ombopag therapy, use of Dimension [place] TBIL is not recommended. Chloride [Moles/Vol] 108 mmol/L 98-107 [facility] Cholesterol [Mass/Vol] 189 mg/dL <200 [facility] Comment on above: <200 mg/dL Desirable 200-240 mg/dL Borderline >240 mg/dL High Risk Glucose [Mass/Vol] 85 mg/dL 74-106 [facility] Potassium [Moles/Vol] 3.5 mmol/L 3.5-5.1 [facility] Protein [Mass/Vol] 6.6 g/dL 6.4-8.2 [facility] Sodium [Moles/Vol] 142 mmol/L 136-145 [facility] Triglyceride [Mass/Vol] 104 mg/dL <199 [facility] Comment on above: The drugs N-Acetylcy steine and Metamizole may falsely depress this assay.Serum Triglycerides Reference Interval Normal <150 mg/dL Borderline high 150 - 199 mg/dL High 200 - 499 mg/dL Very High > or = 500 mg/dL Laboratory - Chemistry and C hemistry - challengeOrdered By: David Puga on 10-14-2022 ALP [Catalytic activity/Vol] 54 U/L 45-117 [facility] ALT [Catalytic activity/Vol] 23 U/L 13-56 [facility] CO2 [Moles/Vol] 26.0 mmol/L 21.0-32.0 [facility] Globulin (S) [Mass/Vol] 3.2 g/dL 2.2-4.2 [facility] Urea nitrogen/Creatinine [Mass ratio] 29.2 mg/mg 10-20 [facility] No Panel InformationOrdered By: David Puga on 10-14-2022 Estimated GFR (MDRD) Amer 96 mL/min >60 [facility] Comment on above: GFR Calc Estimated GFR (MDRD) Non-Af Amer 79 mL/min >60 [facility] Comment on above: Non- GFR Calc Thyroid Stimulating Hormone (TSH) 1.66 uIU/mL 0.358-3.74 [facility] Urine Microalbumin/Creatinine Ratio 519.8 mg/g CRE <30 [facility] Vitamin D 25-Hydroxy 62.0 ng/mL [facility] Comment on above: Vitamin D 25(OH) Sta tus Range Deficiency <20 ng/mL (50nmol/L) Insufficiency 20 - 30 ng/mL (50 - 75 nmol/L) Sufficiency 30 - 100 ng/mL (75 - 250 nmol/L) Toxicity >100 ng/mL (>250 nmol/L) Serum or plasma albumin shane urement (mass/volume)Ordered By: David Puga on 10-14-2022 Albumin [Mass/Vol] 3.4 g/dL 3.2-5.0 [facility] Serum or plasma albumin/glob ulin mass ratioOrdered By: David Puga on 10-14-2022 Albumin/Globulin [Mass ratio] 1.1 {ratio} 0.9-2.4 [facility] Serum or plasma calcium shane urement (mass/volume)Ordered By: David Puga on 10-14-2022 Calcium [Mass/Vol] 8.1 mg/dL 8.5-10.1 [facility] Serum or plasma cholesterol in HDL measurement (mass/volume)Ordered By: David Puga on 10-14-2022 Cholesterol in HDL [Mass/Vol] 70 mg/dL >40 [facility] Comment on above: The drugs N-Acetylcy steine and Metamizole may falsely depress this assay. Reference Range HDL <40 mg/dL Low HDL Cholesterol HDL >or= 60 mg/dL High HDL Cholesterol Serum or plasma cholesterol in VLDL measurement (mass/volume)Ordered By: David Puga on 10-14-2022 Cholesterol in VLDL [Mass/Vol] 21 mg/dL 5-40 [facility] Serum or plasma creatinine m easurement (mass/volume)Ordered By: David Puga 10-14-2022 Creatinine [Mass/Vol] 0.75 mg/dL 0.55-1.02 [facility] Comment on above: The validity of the calculated GFR & GFRAA in patients over 70 years has not been determined. Clinical correlation is essential. Serum or plasma low density lipoprotein (LDL) cholesterol measurement (mass/volume)Ordered By: David Puga on 10-14-2022 Cholesterol in LDL [Mass/Vol] 98 mg/dL 0-130 [facility] Serum or plasma urea nitroge n measurement (mass/volume)Ordered By: David Puga on 10-14-2022 Urea nitrogen [Mass/Vol] 22 mg/dL 7-18 [facility] Thin prep Papanicolaou smear with manual screeningOrdered By: David Puga on 10-14-2022 Thin prep Papanicolaou smear with manual screening 25 U/L 15-37 [facility] Thin prep Papanicolaou smear with manual screening 8 5-15 [facility] Thin prep Papanicolaou smear with manual screening 315.0 mg/L NO RANGE EST. [facility] Urine creatinine measurement (mass/volume)Ordered By: David Puga on 10-14-2022 Creatinine (U) [Mass/Vol] 60.60 mg/dL NO RANGE EST. [facility] Whole blood hemoglobin A1c/t otal hemoglobin ratio (mass fraction)Ordered By: David Puga on 10-14-2022 HbA1c (Bld) [Mass fraction] 6.9 % 3.8-5.6 [facility] Comment on above: Normal < 5.7 % Predi abetic 5.7 - 6.4 % Diabetic >or= 6.5 % Please note range changes. ANES POSTPROC EVALon 023 ANES POSTPROC EVAL HNO ID: [id number] Author: Kyra Leiva MD Service: Anesthesiology Author Type: Physician Type: Anesthesia Postprocedure Evaluation Filed: 07/24/2022 1:42 PM Note Text: POST ANESTHESIA EVALUATION NOTE : 1945 Procedure Summary Date: 05/02/22 Room / Location: SURGERY Anesthesia Start: Anesthesia Stop: Procedures: COLONOSCOPY DIAGNOSTIC EGD DIAGNOSTIC Diagnosis: Abdominal bloating with cramps H/O gastric bypass Diarrhea, unspecified type Abdominal bloating with cramps H/O gastric bypass Diarrhea, unspecified type Scheduled Providers: Dolores Doll MD Responsible Provider: Anesthesia Type: MAC ASA Status: 3 Anesthesia Type: No value filed. Last Vitals Vitals Value Taken Time BP 168/79 05/02/22 1225 Temp 36.2 ?C (97.2 ?F) 05/02/22 1205 HR SpO2 70 05/02/22 1225 Resp 19 05/02/22 1225 SpO2 99 % 05/02/22 1225 Post Anesthesia Patient Status Patient Evaluation: bedside. Anticipated Disposition: phase 2 then home. Neurological Status: aware and responsive. Pulmonary Status: breathing comfortably on room air Airway Control: returned to baseline unsupported. Cardiovascular Status: stable. Pain Management: clinically adequate Postoperative Hydration: acceptable. Intraoperative Events: no significant anesthesia events Post Operative Nausea/Vomiting Status: no significant post operative nausea or vomiting Recommendation: continue current plan of care. Anesthesia Observations No Documentation SIGNATURE: Kyra Leiva MD PATIENT NAME: Madelyn Love DATE: July 24, 2022 TIME: 1:42 PM CSN: [id number] Normal [facility] FATTY ACIDS PROFILE, MATTHEW Wadsworth 06-14-2022 Alpha linolenate (C18:3w3) [Moles/Vol] 98 nmol/mL 20 - 200 nmol/mL [facility] Arachidate (C20:0) [Moles/Vol] 21 nmol/mL 8 - 43 nmol/mL [facility] Arachidonate (C20:4w6) [Moles/Vol] 399 nmol/mL 310 - 1420 nmol/mL [facility] DHA [Moles/Vol] 67 nmol/mL 45 - 365 nmol/mL [facility] Docosapentaenate (C22:5w6) [Moles/Vol] 15 nmol/mL 6 - 55 nmol/mL [facility] Docosatetraenoate (C22:4w6) [Moles/Vol] 18 nmol/mL 10 - 40 nmol/mL [facility] Docosenoate (C22:1) [Moles/Vol] 3 nmol/mL 1 - 10 nmol/mL [facility] DPA [Moles/Vol] 38 nmol/mL 13 - 75 nmol/mL [facility] EER Fatty Acids Prof, Essential SP See Note [facility] EPA [Moles/Vol] 43 nmol/mL 8 - 130 nmol/mL [facility] Fatty acids [Moles/Vol] 9.5 mmol/L 4.5 - 15.0 mmol/L [facility] Fatty acids pattern Marciano [Interp] Normal [facility] Gamma Linolenate (C18:3w6) [Moles/Vol] 44 nmol/mL 10 - 120 nmol/mL [facility] Hexadecenoate (C16:1w9) [Moles/Vol] 42 nmol/mL 14 - 95 nmol/mL [facility] Homo-gamma Linolenate (C20:3w6) [Moles/Vol] 185 nmol/mL 45 - 340 nmol/mL [facility] Laurate (C12:0) [Moles/Vol] 15 nmol/mL 1 - 200 nmol/mL [facility] Linoleate (C18:2w6) [Moles/Vol] 2565 nmol/mL 1210 - 4300 nmol/mL [facility] Alma acid (C20:3w9) [Moles/Vol] 7 nmol/mL 1 - 35 nmol/mL [facility] Monounsaturated fatty acids [Moles/Vol] 2.6 mmol/L 0.9 - 4.7 mmol/L [facility] Myristate (C14:0) [Moles/Vol] 182 nmol/mL 20 - 520 nmol/mL [facility] Nervonate (C24:1) [Moles/Vol] 92 nmol/mL 35 - 145 nmol/mL [facility] Octadecanoate (C18:0) [Moles/Vol] 547 nmol/mL 280 - 1250 nmol/mL [facility] Oleate (C18:1w9) [Moles/Vol] 1998 nmol/mL 740 - 3900 nmol/mL [facility] [place] 3 fatty acids (w3) [Moles/Vol] 0.25 mmol/L 0.12 - 0.55 mmol/L [facility] [place] 6 fatty acids (w6) [Moles/Vol] 3.2 mmol/L 1.8 - 5.7 mmol/L [facility] Palmitate (C16:0) [Moles/Vol] 2712 nmol/mL 1090 - 3840 nmol/mL [facility] Palmitoleate (C16:1w7) [Moles/Vol] 293 nmol/mL 35 - 580 nmol/mL [facility] Polyunsaturated fatty acids [Moles/Vol] 3.5 mmol/L 2.1 - 6.2 mmol/L [facility] Saturated fatty acids [Moles/Vol] 3.5 mmol/L 1.5 - 5.3 mmol/L [facility] Trienoate (C20:3w9)/Arachidonate (C20:4w6) [Molar ratio] 0.018 0.004 - 0.051 [facility] Vaccenate (C18:1w7) [Moles/Vol] 156 nmol/mL 50 - 250 nmol/mL [facility] Alpha tocopherol [Mass/Vol]o n 06-12-2022 Beta+gamma tocopherol [Mass/Vol] 0.7 mg/L 0.3 - 3.2 mg/L [facility] METHYLMALONIC ACIDon 023 Methylmalonate [Moles/Vol] 125 nmol/L 79 - 376 nmol/L [facility] VITAMIN A/RETINOLon 06-12-19 23 Retinol [Mass/Vol] 0.87 mg/L 0.30 - 1.20 mg/L [facility] VITAMIN E/TOCOPHEROLon 06-12 Alpha tocopherol [Mass/Vol] 12.6 mg/L 6.0 - 23.0 mg/L [facility] COPPER BLOODon 06-11-2022 Copper [Mass/Vol] 79 ug/dL Low 80 - 155 ug/dL [facility] Established Visit (Gastroent erology)on 06-11-2022 Established Visit (Gastroenterology) Diagnoses/Problems Assessed Irritable bowel syndrome with diarrhea (564.1) (K58.0) 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 The lowest dose necessary to control her diarrhea is the goal. I will see her back in the spring when she returns from [place] Chief Complaint FUV in office today for diarrhea. Patient states that the cholestyramine powder is helping she has noticed a difference. Patient reports diarrhea in the mornings fro approx 2 hours. Patient states she that food is more digested now and is less frequent now. Patient states that the BM are soft formed. History of Present IllnessMadelyn is seen today in follow-up. She has a complex medical history with remote gastric bypass she has been plagued by chronic malabsorption and diarrhea. She is surprisingly better since beginning cholestyramine twice daily. She admits her stools are now semiformed she is not having the prolific diarrhea she did is has predictable bowel movements the first 2 hours in the morning. She did see an integrative medicine specialist at [facility] who is working with her to adjust medications and eliminate unnecessary meds. She has a follow-up appointment with her by telephone in 2 weeks. Overall she feels much better is more energetic and feels encouraged that she is improving daily. Review of Systems Constitutional: no fever, no chills, not feeling tired and no recent weight loss. ENT: no lymphadenopathy. Cardiovascular: no shortness of breath and no chest pain. Respiratory: no cough. Gastrointestinal: as noted in HPI. Musculoskeletal: no joint swelling. Integumentary: no rashes, no skin lesions and was no jaundiced. All other systems have been reviewed and are negative for complaint. 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) IBS (irritable bowel syndrome) (564.1) (K58.9) Intestinal bacterial overgrowth (569.89) (K63.89) Irritable bowel syndrome with diarrhea (564.1) (K58.0) Small intestinal bacterial overgrowth (SIBO) (569.89) (K63.89) Steatorrhea (579.8) (K90.9) Urinary incontinence (788.30) (R32) Surgical History Problems History of Bariatric surgery History of Cholecystectomy History of Colonoscopy History of Elbow fracture repair History of Esophagogastroduodenoscopy History of Hysterectomy History of Knee replacement Family History Mother No pertinent family history Father No pertinent family history Social History Problems Denies alcohol consumption (V49.89) (Z78.9) Never a smoker No caffeine use No illicit drug use Patient has living will (V49.89) (Z78.9) Allergies Medication NSAIDs Recorded By: Jane Lobo; 03/15/2020 3:28:11 PM Current Meds Medication NameInstruction Acidophilus Probiotic Blend Oral Capsule amLODIPine Besylate 2.5 MG Oral Tablet Cholestyramine 4 GM Oral PacketMIX THE CONTENTS OF 1 POWDER PACKET WITH 2-6 OZ OF NONCARBONATED BEVERAGE AND SWALLOW TWICE DAILY. Citrucel TABS Colestipol HCl - 1 GM Oral TabletTake 1 tablet twice a day Coreg 6.25 MG Oral Tablet Cranberry CAPS [facility] Natural Fiber Supplement 58.6 % PACKTAKE 1 PACKET BY MOUTH ONCE DAILY. Diclofenac Sodium 1 % External Gel Docusate Sodium 100 MG Oral CapsuleTAKE 1 CAPSULE BY MOUTH TWICE DAILY NEEDED FOR CONSTIPATION. Donepezil HCl - 10 MG Oral Tablet Famotidine 10 MG/ML SOLN Farxiga 5 MG Oral Tablet Ferrous Sulfate 325 (65 Fe) MG Oral TabletTAKE 1 TABLET BY MOUTH EVERY DAY Furosemide 20 MG Oral Tablet Ipratropium Anthon 0.03 % Nasal Solution Jardiance 10 MG Oral Tablet Lidocaine-Hydrocortisone Bairon 3-2.5 % Rectal KitUSE DIRECTED. Losartan Potassium 50 MG Oral Tablet Magnesium Oxide 400 MG Oral TabletTAKE 1 TABLET BY MOUTH TWICE A DAY MG Plus Protein TABS Myrbetriq 25 MG Oral Tablet Extended Release 24 Hour OneTouch Ultra In Vitro StripUSE 1 (ONE) STRIP IN VITRO DAILY Pantoprazole Sodium 40 MG Oral Tablet Delayed ReleaseTAKE 1 TABLET DAILY. Prolia 60 MG/ML Subcutaneous Solution Prefilled Syringe Rolaids CHEW traMADol HCl - 50 MG Oral Tablet Tylenol 500 MG CAPS Vitamin B12 1000 MCG Oral Tablet Extended Release Vitamin D3 250 MCG (19618 UT) Oral Tablet Vitals Vital Signs Recorded: 11Jun2022 01:11PM Jistryis239 Rtwurnidq23 Height4 ft 9.5 in Jbsfdz465 lb BMI Aztpfundfg90.71 kg/m2 BSA Calculated1.53 Physical Exam Consti (more content not included)... Normal [facility] SELENIUM BLOODon 06-11-2022 Selenium (Bld) [Mass/Vol] 177.8 ug/L 58.0 - 234.0 ug/L [facility] VITAMIN D 25 HYDROXYon 06-11 25-hydroxyvitamin D3 [Mass/Vol] 36.5 ng/mL 31.0 - 80.0 ng/mL [facility] ZINC BLDon 06-11-2022 Zinc [Mass/Vol] 59 ug/dL Low 60 - 120 ug/dL [facility] 25(OH)D3 [facility]-ncon 2022 25-hydroxyvitamin D3 [Mass/Vol] 36.5 ng/mL Normal 31.0-80.0 [facility] Comment on above: Order Comment: Speci men Type: BLOOD SPECIMENOrdering Facility: [facility] Address: [address] [place] [address] Result Comment: Clas sification of 25 [place] Vitamin D status: Deficiency/Insufficiency: < or = 30 ng/ml. Sufficiency/Optimal Levels: 31-80 ng/mL Toxicity: > 100 ng/mL. Test performed by chemiluminescent immunoassay. Performed By: #### 1 [id number] ####[facility] LABIA [id number] [place] [address] [place] A-Tocopherol Vit E [facility]-mCn con 06-10-2022 Alpha tocopherol [Mass/Vol] 12.6 mg/L Normal 6.0-23.0 [facility] Comment on above: Order Comment: Speci men Type: BLOOD SPECIMENOrdering Facility: [facility] Address: [address] [place] [address] Performed By: #### 2 [id number], 182-4 ####[facility] [id number] [address] [place] Alpha tocopherol [Mass/Vol]o n 06-10-2022 Beta+gamma tocopherol [Mass/Vol] 0.7 mg/L Normal 0.3-3.2 [facility] Comment on above: Order Comment: Speci [facility] Type: BLOOD SPECIMENOrdering Facility: [facility] Address: [address] [place] [address] Result Comment: This test was developed and its performance characteristics determined by [facility]'s [place] [facility] Pathology and Laboratory Medicine [place] (-PLMI). It has not been cleared or approved by the FDA. [facility] is regulated under CLIA as qualified to perform high-complexity testing. This test is used for clinical purposes. It should not be regarded as investigational or for research. Performed By: #### 2 923-1, 1823-4 ####[facility] LABCLIA [id number] [address] [id number] [address] [place] C-REACTIVE PROTEIN (CRP)on 0 06-10-2022 CRP [Mass/Vol] <0.9 mg/dL [facility] CBC W Auto Differential pane l (Bld)on 06-10-2022 Basophils (Bld) [#/Vol] 0.03 10*3/uL Normal <0.11 [facility] Comment on above: Order Comment: Speci men Type: BLOOD SPECIMENOrdering Facility: [facility] Address: [address] [address] Performed By: #### 5 7021-8 ####[facility] [id number] [place] [address] [place] Basophils/100 WBC (Bld) 0.5 % Normal [facility] Comment on above: Order Comment: Speci men Type: BLOOD SPECIMENOrdering Facility: [facility] Address: [address] [address] Performed By: #### 5 7021-8 ####[facility] [id number] [place] [address] [place] Differential cell count method Nom (Bld) Auto Normal [facility] Comment on above: Order Comment: Speci men Type: BLOOD SPECIMENOrdering Facility: [facility] Address: [address] [address] Performed By: #### 5 7021-8 ####[facility] [id number] [place] [address] [place] Eosinophils (Bld) [#/Vol] 0.05 10*3/uL Normal <0.46 [facility] Comment on above: Order Comment: Speci men Type: BLOOD SPECIMENOrdering Facility: [facility] Address: [address] [address] Performed By: #### 5 7021-8 ####[facility] MILLWNCLIA [id number] [place] [address] [place] Eosinophils/100 WBC (Bld) 0.8 % Normal [facility] Comment on above: Order Comment: Speci men Type: BLOOD SPECIMENOrdering Facility: [facility] Address: [address] [place] [address] Performed By: #### 5 7021-8 ####[facility] HOSPITALMARCILIA [id number] [place] [address] [place] Erythrocyte distribution width (RBC) [Ratio] 13.2 % Normal 11.5-15.0 [facility] Comment on above: Order Comment: Speci men Type: BLOOD SPECIMENOrdering Facility: [facility] Address: [address] [place] [address] Performed By: #### 5 7021-8 ####[facility] HOSPITALJESUS [id number] [place] [address] [place] Hematocrit (Bld) [Volume fraction] 38.0 % Normal 36.0-46.0 [facility] Comment on above: Order Comment: Speci men Type: BLOOD SPECIMENOrdering Facility: [facility] Address: [address] [place] [address] Performed By: #### 5 7021-8 ####[facility] HOSPITALMICHELLEA [id number] [place] [address] [place] Hemoglobin (Bld) [Mass/Vol] 12.6 g/dL Normal 11.5-15.5 [facility] Comment on above: Order Comment: Speci men Type: BLOOD SPECIMENOrdering Facility: [facility] Address: [address] [place] [address] Performed By: #### 5 7021-8 ####[facility] HOSPITALNCLIJennifer [id number] [place] [address] [place] Immature granulocytes (Bld) [#/Vol] 10*3/uL Normal <0.10 [facility] Comment on above: Order Comment: Speci men Type: BLOOD SPECIMENOrdering Facility: [facility] Address: [address] [place] [address] Performed By: #### 5 7021-8 ####[facility] [id number] [place] [address] [place] Immature granulocytes/100 WBC (Bld) 0.3 % Normal [facility] Comment on above: Order Comment: Speci men Type: BLOOD SPECIMENOrdering Facility: [facility] Address: [address] [place] [address] Performed By: #### 5 7021-8 ####[facility] [id number] [place] [address] [place] Lymphocytes (Bld) [#/Vol] 1.40 10*3/uL Normal 1.00-4.00 [facility] Comment on above: Order Comment: Speci men Type: BLOOD SPECIMENOrdering Facility: [facility] Address: [address] [place] [address] Performed By: #### 5 7021-8 ####[facility] [id number] [place] [address] [place] Lymphocytes/100 WBC (Bld) 21.7 % Normal [facility] Comment on above: Order Comment: Speci men Type: BLOOD SPECIMENOrdering Facility: [facility] Address: [address] [place] [address] Performed By: #### 5 7021-8 ####[facility] [id number] [place] [address] [place] MCH (RBC) [Entitic mass] 32.4 pg Normal 26.0-34.0 [facility] Comment on above: Order Comment: Speci men Type: BLOOD SPECIMENOrdering Facility: [facility] Address: [address] [place] [address] Performed By: #### 5 7021-8 ####[facility] JAMISONJESUS [id number] [place] [address] [place] MCHC (RBC) [Mass/Vol] 33.2 g/dL Normal 30.5-36.0 [facility] Comment on above: Order Comment: Speci men Type: BLOOD SPECIMENOrdering Facility: [facility] Address: [address] [place] [address] Performed By: #### 5 7021-8 ####[facility] HOSPITALJESUS [id number] [place] [address] [place] MCV (RBC) [Entitic vol] 97.7 fL Normal 80.0-100.[address] [facility] Comment on above: Order Comment: Speci men Type: BLOOD SPECIMENOrdering Facility: [facility] Address: [address] [place] [address] Performed By: #### 5 7021-8 ####[facility] HOSPITALJESUS [id number] [place] [address] [place] Monocytes (Bld) [#/Vol] 0.51 10*3/uL Normal <0.87 [facility] Comment on above: Order Comment: Speci men Type: BLOOD SPECIMENOrdering Facility: [facility] Address: [address] [place], [place] [address] Performed By: #### 5 7021-8 ####[facility] HOSPITALMARCILIA [id number] [address] [place] Monocytes/100 WBC (Bld) 7.9 % Normal [facility] Comment on above: Order Comment: Speci men Type: BLOOD SPECIMENOrdering Facility: [facility] Address: [address] [place] [address] Performed By: #### 5 7021-8 ####[facility] MILLWNCLIA [id number] [place] [address] [place] Neutrophils (Bld) [#/Vol] 4.45 10*3/uL Normal 1.45-7.50 [facility] Comment on above: Order Comment: Speci men Type: BLOOD SPECIMENOrdering Facility: [facility] Address: [address] [place] [address] Performed By: #### 5 7021-8 ####[facility]WOODLIA [id number] [place] [address] [place] Neutrophils/100 WBC (Bld) 68.8 % Normal [facility] Comment on above: Order Comment: Speci men Type: BLOOD SPECIMENOrdering Facility: [facility] Address: [address] [place] [address] Performed By: #### 5 7021-8 ####[facility]ACHWOODLIA [id number] [place] [address] [place] Nucleated RBC (Bld) [#/Vol] 10*3/uL Normal <0.01 [facility] Comment on above: Order Comment: Speci men Type: BLOOD SPECIMENOrdering Facility: [facility] Address: [address] [place] [address] Performed By: #### 5 7021-8 ####[facility] BEACHWOODLIA [id number] [place] [address] [place] Nucleated RBC/100 WBC (Bld) [Ratio] 0.0 /100 WBC Normal [facility] Comment on above: Order Comment: Speci men Type: BLOOD SPECIMENOrdering Facility: [facility] Address: [address] [place] [address] Performed By: #### 5 7021-8 ####[facility]ACHWOODLIA [id number] [place] [address] [place] Platelet mean volume (Bld) [Entitic vol] 9.0 fL Normal 9.0-12.7 [facility] Comment on above: Order Comment: Speci men Type: BLOOD SPECIMENOrdering Facility: [facility] Address: [address] [place] [address] Performed By: #### 5 7021-8 ####[facility] HOSPITALJESUS [id number] [place] [address] [place] Platelets (Bld) [#/Vol] 219 10*3/uL Normal 150-400 [facility] Comment on above: Order Comment: Speci men Type: BLOOD SPECIMENOrdering Facility: [facility] Address: [address] [place] [address] Performed By: #### 5 7021-8 ####[facility] HOSPITALNCDARCI [id number] [place] [address] [place] RBC (Bld) [#/Vol] 3.89 10*6/uL Low 3.90-5.20 [facility] Comment on above: Order Comment: Speci men Type: BLOOD SPECIMENOrdering Facility: [facility] Address: [address] [place] [address] Performed By: #### 5 7021-8 ####[facility] HOSPITALNCLIA [id number] [place] [address] [place] WBC (Bld) [#/Vol] 6.46 10*3/uL Normal 3.70-11.00 [facility] Comment on above: Order Comment: Speci men Type: BLOOD SPECIMENOrdering Facility: [facility] Address: [address] [place] [address] Performed By: #### 5 7021-8 ####[facility] HOSPITALNCLIA [id number] [place] [address] [place] Basophils (Bld) [#/Vol] 0.03 10*3/uL <0.11 k/uL [facility] Basophils/100 WBC (Bld) 0.5 % [facility] Differential cell count method Nom (Bld) Auto [facility] Eosinophils (Bld) [#/Vol] 0.05 10*3/uL <0.46 k/uL [facility] Eosinophils/100 WBC (Bld) 0.8 % [facility] Erythrocyte distribution width (RBC) [Ratio] 13.2 % 11.5 - 15.0 % [facility] Hematocrit (Bld) [Volume fraction] 38.0 % 36.0 - 46.0 % [facility] Hemoglobin (Bld) [Mass/Vol] 12.6 g/dL 11.5 - 15.5 g/dL [facility] Immature granulocytes (Bld) [#/Vol] <0.10 k/uL [facility] Immature granulocytes/100 WBC (Bld) 0.3 % [facility] Lymphocytes (Bld) [#/Vol] 1.40 10*3/uL 1.00 - 4.00 k/uL [facility] Lymphocytes/100 WBC (Bld) 21.7 % [facility] MCH (RBC) [Entitic mass] 32.4 pg 26.0 - 34.0 pg [facility] MCHC (RBC) [Mass/Vol] 33.2 g/dL 30.5 - 36.0 g/dL [facility] MCV (RBC) [Entitic vol] 97.7 fL 80.0 - 100.0 fL [facility] Monocytes (Bld) [#/Vol] 0.51 10*3/uL <0.87 k/uL [facility] Monocytes/100 WBC (Bld) 7.9 % [facility] Neutrophils (Bld) [#/Vol] 4.45 10*3/uL 1.45 - 7.50 k/uL [facility] Neutrophils/100 WBC (Bld) 68.8 % [facility] Nucleated RBC (Bld) [#/Vol] <0.01 k/uL [facility] Nucleated RBC/100 WBC (Bld) [Ratio] 0.0 /100 WBC [facility] Platelet mean volume (Bld) [Entitic vol] 9.0 fL 9.0 - 12.7 fL [facility] Platelets (Bld) [#/Vol] 219 10*3/uL 150 - 400 k/uL [facility] RBC (Bld) [#/Vol] 3.89 10*6/uL Low 3.90 - 5.20 m/uL [facility] WBC (Bld) [#/Vol] 6.46 10*3/uL 3.70 - 11.00 k/uL [facility] COPPER BLOODon 06-10-2022 Copper [Mass/Vol] 79 ug/dL Low 80-155 [facility] Comment on above: Order Comment: Speci men Type: BLOOD SPECIMENOrdering Facility: [facility] Address: [address] [id number] Result Comment: This test was developed and its performance characteristics determined by [facility]'s [facility] Pathology and Laboratory Medicine [place] ([facility]). It has not been cleared or approved by the FDA. [facility] is regulated under CLIA as qualified to perform high-complexity testing. This test is used for clinical purposes. It should not be regarded as investigational or for research. Performed By: #### C SILVIA, 5763-8 ####[facility] LABCLIA [id number] [place] [address] [place] CRP SerPl-mCncon 06-10-2022 CRP [Mass/Vol] mg/L Normal <0.9 [facility] Comment on above: Order Comment: Speci men Type: BLOOD SPECIMENOrdering Facility: [facility] Address: [address] [place] [address] Performed By: #### 1 988-5, 2132-9, 2276-4, 61234-8 ####[facility] LABCLIA [id number] [place] [address] [place] Comprehensive metabolic 2000 panelon 06-10-2022 Albumin [Mass/Vol] 3.8 g/dL Low 3.9-4.9 [facility] Comment on above: Order Comment: Speci men Type: BLOOD SPECIMENOrdering Facility: [facility] Address: [address] [place] [address] Performed By: #### 2 4323-8, 82609-0, 2776-06 ####[facility] OBDULIAWNCLIA [id number] [place] [address] [place] ALP [Catalytic activity/Vol] 71 U/L Normal 34-123 [facility] Comment on above: Order Comment: Speci men Type: BLOOD SPECIMENOrdering Facility: [facility] Address: [address] [place] [address] Performed By: #### 2 4323-8, , 2776-06 ####[facility] HOSPITALNCLIA [id number] [place] [address] [place] ALT [Catalytic activity/Vol] 25 U/L Normal 7-38 [facility] Comment on above: Order Comment: Speci men Type: BLOOD SPECIMENOrdering Facility: [facility] Address: [address] [place] [address] Performed By: #### 2 4323-8, , 2776-06 ####[facility] HOSPITALNCLIA [id number] [place] [address] [place] Anion gap [Moles/Vol] 10 mmol/L Normal 9-18 [facility] Comment on above: Order Comment: Speci men Type: BLOOD SPECIMENOrdering Facility: [facility] Address: [address] [place], [place] [address] Performed By: #### 2 4323-8, , 2776-06 ####[facility] HOSPITALNCLIA [id number] [address] OF ANT AST [Catalytic activity/Vol] 24 U/L Normal 13-35 [facility] Comment on above: Order Comment: Speci men Type: BLOOD SPECIMENOrdering Facility: [facility] Address: [address] [place], [place] [address] Performed By: #### 2 4323-8, , 2776-06 ####[facility] INSTITUTEWNCLIA [id number] [place] [address] [place] Bilirubin [Mass/Vol] 0.3 mg/dL Normal 0.2-1.3 [facility] Comment on above: Order Comment: Speci men Type: BLOOD SPECIMENOrdering Facility: [facility] Address: [address] [place] [address] Performed By: #### 2 4323-8, , 2776-06 ####[facility] HOSPITALNCLIA [id number] [place] [address] [place] Calcium [Mass/Vol] 8.7 mg/dL Normal 8.5-10.2 [facility] Comment on above: Order Comment: Speci men Type: BLOOD SPECIMENOrdering Facility: [facility] Address: [address] [place] [address] Performed By: #### 2 4323-8, , 2776-06 ####[facility]ODLIA [id number] [place] [address] [place] Chloride [Moles/Vol] 108 mmol/L High 97-105 [facility] Comment on above: Order Comment: Speci men Type: BLOOD SPECIMENOrdering Facility: [facility] Address: [address] [place] [address] Performed By: #### 2 4323-8, , 2776-06 ####[facility]ODLIA [id number] [place] [address] [place] CO2 [Moles/Vol] 20 mmol/L Low 22-30 [facility] Comment on above: Order Comment: Speci men Type: BLOOD SPECIMENOrdering Facility: [facility] Address: [address] [place] [address] Performed By: #### 2 4323-8, , 2776-06 ####[facility]ITALNCLIA [id number] [place] [address] [place] Creatinine [Mass/Vol] 0.75 mg/dL Normal 0.58-0.96 [facility] Comment on above: Order Comment: [place] irizarry Type: BLOOD SPECIMENOrdering Facility: [facility] Address: [address] [place] [address] Performed By: #### 2 4323-8, , 2776-06 ####[facility]PITALNCLIA [id number] [place] [address] [place] ESTIMATED GLOMERULAR FILTRATION RATE 83 mL/min/1.73m??? Normal >=60 [facility] Comment on above: Order Comment: [place] irizarry Type: BLOOD SPECIMENOrdering Facility: [facility] Address: [address] [place] [address] Result Comment: Sanna mated Glomerular Filtration Rate (eGFR) is calculated using the 2020 CKD-EPI creatinine equation. This equation utilizes serum creatinine, sex, and age as parameters. The creatinine assay has traceable calibration to isotope dilution-mass spectrometry. Refer to KDIGO guidelines for clinical interpretation. In patients with unstable renal function, e.g. those with acute kidney injury, the eGFR may not accurately reflect actual GFR. Performed By: #### 2 4323-8, , 2776-06 ####[facility]PITALNCLIA [id number] [place] [address] [place] Glucose [Mass/Vol] 269 mg/dL High 74-99 [facility] Comment on above: Order Comment: [place] irizarry Type: BLOOD SPECIMENOrdering Facility: [facility] Address: [address] [place] [address] Result Comment: The [place] Diabetes Association (ADA) provides guidance for cutoff values for fasting glucose and random glucose. The ADA defines fasting as no caloric intake for at least 8 hours. Fasting plasma glucose results between 100 to 125 mg/dL indicate increased risk for diabetes (prediabetes). Fasting plasma glucose results greater than or equal to 126 mg/dL meet the criteria for diagnosis of diabetes. In the absence of unequivocal hyperglycemia, results should be confirmed by repeat testing. In a patient with classic symptoms of hyperglycemia or hyperglycemic crisis, random plasma glucose results greater than or equal to 200 mg/dL meet the criteria for diagnosis of diabetes. Reference: Standards of Medical Care in Diabetes 2016, [place] Diabetes Association. Diabetes Care. 2016.39(Suppl 1). Performed By: #### 2 4323-8, 07331-0, 2776-06 ####[facility]WOODLI [id number] [place] [address] [place] Potassium [Moles/Vol] 3.6 mmol/L Low 3.7-5.1 [facility] Comment on above: Order Comment: Speci men Type: BLOOD SPECIMENOrdering Facility: [facility] Address: [address] [place] [address] Performed By: #### 2 4323-8, , 2776-06 ####[facility] [id number] [place] [address] [place] Protein [Mass/Vol] 6.0 g/dL Low 6.3-8.0 [facility] Comment on above: Order Comment: Davidi men Type: BLOOD SPECIMENOrdering Facility: [facility] Address: [address] [place] [address] Performed By: #### 2 4323-8, , 2776-06 ####[facility] HOSPITALA [id number] [place] [address] [place] Sodium [Moles/Vol] 138 mmol/L Normal 136-144 [facility] Comment on above: Order Comment: Speci men Type: BLOOD SPECIMENOrdering Facility: [facility] Address: [address] [place] [address] Performed By: #### 2 4323-8, , 2776-06 ####[facility] INSTITUTEWNCLIA [id number] [place] [address] [place] Urea nitrogen [Mass/Vol] 18 mg/dL Normal 7-21 [facility] Comment on above: Order Comment: Speci men Type: BLOOD SPECIMENOrdering Facility: [facility] Address: [address] [place], [place] [phone] Performed By: #### 2 4323-8, 05711-4, 2777-1 ####[facility]ITALNCLIA [id number] [place] [address] [place] Albumin [Mass/Vol] 3.8 g/dL Low 3.9 - 4.9 g/dL [facility] ALP [Catalytic activity/Vol] 71 U/L 34 - 123 U/L [facility] ALT [Catalytic activity/Vol] 25 U/L 7 - 38 U/L [facility] Anion gap [Moles/Vol] 10 mmol/L 9 - 18 mmol/L [facility] AST [Catalytic activity/Vol] 24 U/L 13 - 35 U/L [facility] Bilirubin [Mass/Vol] 0.3 mg/dL 0.2 - 1 .3 mg/dL [facility] Calcium [Mass/Vol] 8.7 mg/dL 8.5 - 10. 2 mg/dL [facility] Chloride [Moles/Vol] 108 mmol/L High 97 - 10 5 mmol/L [facility] CO2 [Moles/Vol] 20 mmol/L Low 22 - 30 mmol/L [facility] Creatinine [Mass/Vol] 0.75 mg/dL 0.58 - 0.96 mg/dL [facility] Estimated Glomerular Filtration Rate 83 mL/min/1.73m >=60 mL/min/1.7 3m [facility] Glucose [Mass/Vol] 269 mg/dL High 74 - 99 mg/dL [facility] Potassium [Moles/Vol] 3.6 mmol/L Low 3.7 - 5.1 mmol/L [facility] Protein [Mass/Vol] 6.0 g/dL Low 6.3 - 8.0 g/dL [facility] Sodium [Moles/Vol] 138 mmol/L 136 - 144 mmol/L [facility] Urea nitrogen [Mass/Vol] 18 mg/dL 7 - 21 mg/dL [facility] FATTY ACIDS PROFILE, MATTHEW [place] 06-10-2022 A-LINOLENIC ACID, C18 3W3 98 nmol/mL Normal 20-200 [facility] Comment on above: Order Comment: Speci men Type: BLOOD SPECIMENOrdering Facility: [facility] Address: [address] [place] [address] Performed By: #### C FAPRO ####[facility]OR[facility]IESCLIA [id number] [place] [address] ARACHIDIC ACID, C20 0 21 nmol/mL Normal 8-43 [facility] Comment on above: Order Comment: Speci men Type: BLOOD SPECIMENOrdering Facility: [facility] Address: [address] [place] [address] Performed By: #### C FAPRO ####[facility] LABORATORIESCLIA [id number] [place] [address] ARACHIDONIC ACID, C20 4W6 399 nmol/mL Normal 310-1420 [facility] Comment on above: Order Comment: Speci men Type: BLOOD SPECIMENOrdering Facility: [facility] Address: [address] [place] [address] Performed By: #### C FAPRO ####[facility]ORATORIESCLIA [id number] [place] [address] DHA, C22 6W3 67 nmol/mL Normal 45-365 [facility] Comment on above: Order Comment: Speci men Type: BLOOD SPECIMENOrdering Facility: [facility] Address: [address] [address] Performed By: #### C FAPRO ####[facility]ORATORIESCLIA [id number] [place] [address] DOCOSENOIC ACID, C22 1 3 nmol/mL Normal 1-10 [facility] Comment on above: Order Comment: Speci men Type: BLOOD SPECIMENOrdering Facility: [facility] Address: [address] [address] Performed By: #### C FAPRO ####[facility]ATORIESCLIA [id number] [place] [address] DPA, C22 5W3 38 nmol/mL Normal 13-75 [facility] Comment on above: Order Comment: Speci men Type: BLOOD SPECIMENOrdering Facility: [facility] Address: [address] [address] Performed By: #### C FAPRO ####[facility]IESCLIA [id number] [place] [address] DPA, C22 5W6 15 nmol/mL Normal 6-55 [facility] Comment on above: Order Comment: Speci men Type: BLOOD SPECIMENOrdering Facility: [facility] Address: [address] [place] [address] Performed By: #### C FAPRO ####[facility]IESCLIA [id number] [place] [address] DTA, C22 4W6 18 nmol/mL Normal 10-40 [facility] Comment on above: Order Comment: Speci men Type: BLOOD SPECIMENOrdering Facility: [facility] Address: [address] [place] [address] Performed By: #### C FAPRO ####[facility]OR[facility]IESCLIA [id number] [place] [address] EER FATTY ACIDS PROF, ESSENTIAL SP See Note Normal [facility] Comment on above: Order Comment: Speci men Type: BLOOD SPECIMENOrdering Facility: [facility] Address: [address] [place] [address] Result Comment: Auth orized individuals can access the RUST Enhanced Report using the following link: [email or web address] Performed By: [employer] [address] [place] [address] [employer] A[employer] Teacher: Roni Fleming MD, PhD Performed By: #### C FAPRO ####Y[facility] LABORATORIESCLIA [id number] [place] [address] EPA, C20 5W3 43 nmol/mL Normal 8-130 [facility] Comment on above: Order Comment: Speci men Type: BLOOD SPECIMENOrdering Facility: [facility] Address: [address] [place] [address] Performed By: #### C FAPRO ####AR[facility] LABORATORIESCLIA [id number] [place] [address] G-LINOLENIC ACID, C18 3W6 44 nmol/mL Normal 10-120 [facility] Comment on above: Order Comment: Speci men Type: BLOOD SPECIMENOrdering Facility: [facility] Address: [address] [place] [address] Performed By: #### C FAPRO ####ARUP LABORATORIESCLIA [id number] [place] [address] [id number] C20:3W6 185 nmol/mL Normal 45-340 [facility] Comment on above: Order Comment: Speci men Type: BLOOD SPECIMENOrdering Facility: [facility] Address: [address] [place] [address] Performed By: #### C FAPRO ####ARUP LABORATORIESCLIA [id number] [place] [address] HEXADECENOIC ACID, C16 1W9 42 nmol/mL Normal 14-95 [facility] Comment on above: Order Comment: Speci men Type: BLOOD SPECIMENOrdering Facility: [facility] Address: [address] [place] [address] Performed By: #### C FAPRO ####ARUP LABORATORIESCLIA [id number] [place] [address] INTERPRETATION, FATTY ACID PROFILE Normal Normal [facility] Comment on above: Order Comment: Speci men Type: BLOOD SPECIMENOrdering Facility: [facility] Address: [address] [place] [address] Result Comment: Normal fatty acid profile. INTERPRETIVE INFORMATION: Fatty Acids Profile, Essential Ser/Plas This test does not screen for disorders of peroxisomal biogenesis/function. This test was developed and its performance characteristics determined by [facility]. It has not been cleared or approved by the [place] Food and Drug Administration. This test was performed in a CLIA certified laboratory and is intended for clinical purposes. Performed By: #### C FAPRO ####ARUP LABORATORIESCLIA [id number] [place] [address] LAURIC ACID, C12 0 15 nmol/mL Normal 1-200 [facility] Comment on above: Order Comment: Speci men Type: BLOOD SPECIMENOrdering Facility: [facility] Address: [address] [address] Performed By: #### C FAPRO ####ARUP LABORATORIESCLIA [id number] [place] [address] LINOLEIC ACID, C18 2W6 2565 nmol/mL Normal 5182-5941 [facility] Comment on above: Order Comment: Speci men Type: BLOOD SPECIMENOrdering Facility: [facility] Address: [address] [address] Performed By: #### C FAPRO ####ARUP LABORATORIESCLIA [id number] [place] [address] MEAD ACID, C20 3W9 7 nmol/mL Normal 1-35 [facility] Comment on above: Order Comment: Speci men Type: BLOOD SPECIMENOrdering Facility: [facility] Address: [address] [address] Performed By: #### C FAPRO ####ARUP LABORATORIESCLIA [id number] [place] [address] MYRISTIC ACID, C14 0 182 nmol/mL Normal 20-520 [facility] Comment on above: Order Comment: Speci men Type: BLOOD SPECIMENOrdering Facility: [facility] Address: [address] [address] Performed By: #### C FAPRO ####ARUP LABORATORIESCLIA [id number] [place] [address] NERVONIC ACID, C24 1W9 92 nmol/mL Normal 35-145 [facility] Comment on above: Order Comment: Speci men Type: BLOOD SPECIMENOrdering Facility: [facility] Address: [address] [address] Performed By: #### C FAPRO ####ARUP LABORATORIESCLIA [id number] [place] [address] OLEIC ACID, C18 1W9 1998 nmol/mL Normal 740-3900 [facility] Comment on above: Order Comment: Speci men Type: BLOOD SPECIMENOrdering Facility: [facility] Address: [address] [address] Performed By: #### C FAPRO ####ARUP LABORATORIESCLIA [id number] [place] [address] PALMITIC ACID, C16 0 2712 nmol/mL Normal 4760-9082 [facility] Comment on above: Order Comment: Speci men Type: BLOOD SPECIMENOrdering Facility: [facility] Address: [address] [place] [address] Performed By: #### C FAPRO ####ARUP LABORATORIESCLIA [id number] [place] [address] PALMITOLEIC ACID, C16 1W7 293 nmol/mL Normal 35-580 [facility] Comment on above: Order Comment: Speci men Type: BLOOD SPECIMENOrdering Facility: [facility] Address: [address] [address] Performed By: #### C FAPRO ####ARUP LABORATORIESCLIA [id number] [place] [address] STEARIC ACID, C18 0 547 nmol/mL Normal 280-1250 [facility] Comment on above: Order Comment: Speci men Type: BLOOD SPECIMENOrdering Facility: [facility] Address: [address] [place] [address] Performed By: #### C FAPRO ####ARUP LABORATORIESCLIA [id number] [place] [address] TOTAL FATTY ACIDS 9.5 mmol/L Normal 4.5-15.0 [facility] Comment on above: Order Comment: Speci men Type: BLOOD SPECIMENOrdering Facility: [facility] Address: [address] [place] [address] Performed By: #### C FAPRO ####ARUP LABORATORIESCLIA [id number] [place] [address] TOTAL MONOUNSATURATED ACIDS 2.6 mmol/L Normal 0.9-4.7 [facility] Comment on above: Order Comment: Speci men Type: BLOOD SPECIMENOrdering Facility: [facility] Address: [address] [place] [address] Performed By: #### C FAPRO ####ARUP LABORATORIESCLIA [id number] [place] [address] TOTAL POLYUNSATURATED ACIDS 3.5 mmol/L Normal 2.1-6.2 [facility] Comment on above: Order Comment: Speci men Type: BLOOD SPECIMENOrdering Facility: [facility] Address: [address] [place] [address] Performed By: #### C FAPRO ####ARUP LABORATORIESCLIA [id number] [place] [address] TOTAL SATURATED ACIDS 3.5 mmol/L Normal 1.5-5.3 [facility] Comment on above: Order Comment: Speci men Type: BLOOD SPECIMENOrdering Facility: [facility] Address: [address] [place] [address] Performed By: #### C FAPRO ####ARUP LABORATORIESCLIA [id number] [place] [address] TOTAL W3 0.25 mmol/L Normal 0.12-0.55 [facility] Comment on above: Order Comment: Speci men Type: BLOOD SPECIMENOrdering Facility: [facility] Address: [address] [place] [address] Performed By: #### C FAPRO ####ARUP LABORATORIESCLIA [id number] [place] [address] TOTAL W6 3.2 mmol/L Normal 1.8-5.7 [facility] Comment on above: Order Comment: Speci men Type: BLOOD SPECIMENOrdering Facility: [facility] Address: [address] [place] [address] Performed By: #### C FAPRO ####ARUP LABORATORIESCLIA [id number] [place] [address] TRIENE/TETRAENE RATIO 0.018 Normal 0.004- 0.05 1 [facility] Comment on above: Order Comment: Speci men Type: BLOOD SPECIMENOrdering Facility: [facility] Address: [address] [address] Performed By: #### C FAPRO ####YUNIOR LABORATORIESCLIA [id number] [place] [address] VACCENIC ACID, C18 1W7 156 nmol/mL Normal 50-[address] [facility] Comment on above: Order Comment: Speci men Type: BLOOD SPECIMENOrdering Facility: [facility] Address: [address] [address] Performed By: #### C FAPRO ####YUNIOR LABORATORIESCLIA [id number] [place] [address] FERRITIN BLDon 06-10-2022 Ferritin [Mass/Vol] 119.0 ng/mL 14.7 - 205.1 ng/mL [facility] FOLIC ACID RBCon 06-10-2022 RBC FOLATE 1236 ng/mL Normal >=366 [facility] Comment on above: Order Comment: Speci men Type: BLOOD SPECIMENOrdering Facility: [facility] Address: [address] [address] Result Comment: Perf ormed By: [facility] [address] [place] [address] [employer] Teacher: Roni Fleming MD, PhD Performed By: #### F [facility] ####YUNIOR LABORATORIESCLIA [id number] [place] [address] Ferritin SerPl-mCncon 2022 Ferritin [Mass/Vol] 119.0 ng/mL Normal 14.7-205.1 [facility] Comment on above: Order Comment: Speci men Type: BLOOD SPECIMENOrdering Facility: [facility] Address: [address] [place] [address] Performed By: #### 1 988-5, 2132-9, 2276-4, 31103-8 ####[facility] LABCLIA [id number] [facility] [id number] [address] [place] Iron and Iron binding capaci ty panelon 06-10-2022 Iron [Mass/Vol] 124 ug/dL 41 - 186 ug/dL [facility] Iron binding capacity [Mass/Vol] 343 ug/dL 232 - 386 ug/dL [facility] Iron/TIBC [Molar ratio] 36.2 % 15.0 - 57.0 % [facility] Iron [Mass/Vol] 124 ug/dL Normal 41-186 [facility] Comment on above: Order Comment: Speci men Type: BLOOD SPECIMENOrdering Facility: [facility] Address: [address] [place] [address] Performed By: #### 1 988-5, 2131-9, 2276-4, 54169-2 ####[facility] LABIA [id number] [place] [address] [place] Iron binding capacity [Mass/Vol] 343 ug/dL Normal 232-386 [facility] Comment on above: Order Comment: Speci men Type: BLOOD SPECIMENOrdering Facility: [facility] Address: [address] [place] [address] Performed By: #### 1 988-5, 2131-9, 2276-4, 30274-2 ####[facility] LABCLIA [id number] [place] [address] [place] Iron/TIBC [Molar ratio] 36.2 % Normal 15.0-57.[address] [facility] Comment on above: Order Comment: Speci men Type: BLOOD SPECIMENOrdering Facility: [facility] Address: [address] [place], [place] [id number] Performed By: #### 1 988-5, 2131-9, 2276-4, 57656-5 ####[facility] LABCLIA [id number] [place] [address] [place] MAGNESIUM BLDon 06-10-2022 Magnesium [Mass/Vol] 2.2 mg/dL 1.7 - 2 .3 mg/dL [facility] Magnesium SerPl-mCncon 06-10 Magnesium [Mass/Vol] 2.2 mg/dL Normal 1.7-2.3 [facility] Comment on above: Order Comment: Glenroy irizarry Type: BLOOD SPECIMENOrdering Facility: [facility] Address: [address] [place], [place] [id number] Performed By: #### 2 4323-8, 24262-1, 2777-1 ####[facility] HOSPITALNCLIA [id number] [place] [address] [place] Methylmalonate SerPl-sCncon 06-10-2022 Methylmalonate [Moles/Vol] 125 nmol/L Normal 79-376 [facility] Comment on above: Order Comment: Glenroy irizarry Type: BLOOD SPECIMENOrdering Facility: [facility] Address: [address] [place] [address] Result Comment: This test was developed and its performance characteristics determined by [facility] [place] (-[facility]). It has not been cleared or approved by the FDA. -[facility] is regulated under CLIA as qualified to perform high-complexity testing. This test is used for clinical purposes. It should not be regarded as investigational or for research. Performed By: #### 1 3964-2 ####[facility] LABCLIA [id number] [place] [address] [place] PHOSPHORUS INORGANICon 06-10 Phosphate [Mass/Vol] 3.6 mg/dL 2.7 - 4 .8 mg/dL [facility] PT panel Coag (PPP)on 2022 INR Coag (PPP) [Relative time] 0.9 {INR} Normal 0.9-1.3 [facility] Comment on above: Order Comment: Glenroy irizarry Type: BLOOD SPECIMENOrdering Facility: [facility] Address: [address] [place], [place] [id number] Result Comment: Courtney min K Antagonist (VKA) Therapeutic Range: INR 2 to 3 (Target INR of 2.5) Note: For patients treated with VKA drugs, such as warfarin, the [employer] 2012 Guideline recommends a therapeutic INR range of 2 to 3 (target INR of 2.5). This recommendation includes high-risk patients with antiphospholipid syndrome with previous arterial or venous thromboembolism, current-generation mechanical or bioprosthetic aortic heart valve replacement. Note: Patients with mechanical aortic valve replacement and additional risk factors for thromboembolic events (atrial fibrillation, previous thromboembolism, LV dysfunction, hypercoagulable conditions) or an older generation mechanical AVR (i.e., ball in-Cage) or any mechanical MVR should have a INR therapeutic range of 2.5 to 3.5 (target INR of 3). Amelia MCKINNEY, et al. Chest 2012, 141:7S-47S Maday RA, et al. [facility] 2017, 70: 252-289 Performed By: #### 3 4528-0 ####[facility] [id number] [place] [address] [place] PT Coag (PPP) [Time] 9.3 s Normal <13.1 [facility] Comment on above: Order Comment: Speccarlo irizarry Type: BLOOD SPECIMENOrdering Facility: [facility] Address: [address] [place] [address] Performed By: #### 3 4528-0 ####[facility] [id number] [address] [place] INR Coag (PPP) [Relative time] 0.9 {INR} 0.9 - 1.3 [facility] PT Coag (PPP) [Time] 9.3 s <13.1 sec [facility] Phosphate SerPl-mCncon 06-10 Phosphate [Mass/Vol] 3.6 mg/dL Normal 2.7-4.8 [facility] Comment on above: Order Comment: Glenroy irizarry Type: BLOOD SPECIMENOrdering Facility: [facility] Address: [address] [place] [address] Performed By: #### 2 4323-8, 61757-6, 2777-1 ####[facility] [id number] [place] [id number] [place] Selenium Bld-mCncon 06-10-19 23 Selenium (Bld) [Mass/Vol] 177.8 ug/L Normal 58.0-234.0 [facility] Comment on above: Order Comment: Speci men Type: BLOOD SPECIMENOrdering Facility: [facility] Address: [address] [place] [address] Result Comment: This test was developed and its performance characteristics determined by [facility]ology [facility] Laboratory [facility] [place] ([facility]). It has not been cleared or approved by the FDA. -[facility] is regulated under CLIA as qualified to perform high-complexity testing. This test is used for clinical purposes. It should not be regarded as investigational or for research. Performed By: #### 5 722-4 ####[facility] [id number] [place] [address] [place] VITAMIN B12 BLOODon 06-10-19 23 Cobalamin (Vitamin B12) [Mass/Vol] High 232 - 1,245 pg/mL [facility] Vit A SerPl-ncon 3 Retinol [Mass/Vol] 0.87 mg/L Normal 0.30-1.20 [facility] Comment on above: Order Comment: Speci men Type: BLOOD SPECIMENOrdering Facility: [facility] Address: [address] [place] [address] Result Comment: This test was developed and its performance characteristics determined by [facility]ology [facility] Laboratory [facility] [place] ([facility]). It has not been cleared or approved by the FDA. -[facility] is regulated under CLIA as qualified to perform high-complexity testing. This test is used for clinical purposes. It should not be regarded as investigational or for research. Performed By: #### 2 923-1, 1823-4 ####[facility] LABCLIA [id number] [place] [address] [place] Vit B12 SerPl-mCncon 023 Cobalamin (Vitamin B12) [Mass/Vol] pg/mL High 232-1245 [facility] Comment on above: Order Comment: Glenroy irizarry Type: BLOOD SPECIMENOrdering Facility: [facility] Address: [address] [address] Performed By: #### 1 988-5, 2132-9, 2276-4, 34639-4 ####[facility] LABCLIA [id number] [address] [place] Zinc SerPl-mCncon 06-10-2022 Zinc [Mass/Vol] 59 ug/dL Low 60-120 [facility] Comment on above: Order Comment: Davidcarlo irizarry Type: BLOOD SPECIMENOrdering Facility: [facility] Address: [address] [address] Result Comment: This test was developed and its performance characteristics determined by [facility] [place] ([facility]). It has not been cleared or approved by the FDA. RT-[facility] is regulated under CLIA as qualified to perform high-complexity testing. This test is used for clinical purposes. It should not be regarded as investigational or for research. Performed By: #### C SILVIA, 5763-8 ####[facility] LABCLIA [id number] [address] [place] CNOVon 06-07-2022 CNOV Office Visit (GASTA5 ) -- MADELYN LOVE ([id number]) 1945 F Date Time Provider Department 06/07/22 2:00 PM LYNNE KEY GASTA5 During your visit today, we recorded the following information about you: Temperature Pulse Blood pressure Weight 97.6 degrees 66/minute 156/54 63.7 kg Height 1.257 m Lynne Key MD 06/14/2022 6:57 PM Signed SMALL BOWEL DISEASES AND NUTRITION NEW ENCOUNTER Date of direct communication: 05/31/22 IMPRESSION: Madelyn Love is a 76 year old female s/p RYGB who did well for many years until around the time of cystocele and rectocele repair. Now with chronic diarrhea causing hyponatremia and fecal incontinence. She has seen significant symptom improvement after starting bile salt binders and diet/lifestyle modification. Will continue to work towards optimizing GI symptoms. DIAGNOSTIC ISSUES AND PLAN: #) Chronic diarrhea #) S/p RYBG -Continue cholestyramine and general diet/lifestyle strategies and ORS to reduce diarrhea -Can try to increase dose of Citrucel 2-->3 or 4 capsules twice daily, if possible reduce cholestyramine to once daily. Monitor based on diarrhea response. -Change magnesium oxide to Mg Plus Protein (2 tabs before bedtime). -Check vitamin/mineral labs with next labs - if you next vitamin/mineral labs return normal, may be able to simplify supplement regimen to a bariatric multivitamin with mineral supplement (eg Bariatric fusion) #) Polypharmacy -Can she stop cranberry, probiotics, and milk thistle? FOLLOW-UP: 6 weeks or sooner if needed Lynne Key MD 05/31/22 4772 [employer] [facility] [place] [facility] , REFERRING PROVIDER: Aakash [facility] [address] [place] [id number] REASON FOR REFERRAL: S/p RYGB, intestinal malabsorption, SIBO HISTORY: -s/p RYGB 2012 - Shani limb 100cm, unknown length of BP limb and common channel - did very well after, lost about 100 lbs, gastroparesis improved, sleep apnea improved, chest pain improved -s/p cholecystectomy 2013 -s/p hysterectomy 2013 -s/p rectocele and cystocele 2019 -Was doing really well until 1-2 years ago and started to get worsening diarrhea and lower abdominal discomfort. Will have multiple BMs in the morning until 10:30-11am. After this it is better and no more BM's until the next day. Associated with upper abdo bloating. -Follows with GI at , received rifaximin earlier this year x3 about a month apart each after a positive breath test for SIBO without significant change in symptoms -+fecal incontinence in the past but this is much better now, this was especially after eating in the morning starting with a somewhat formed stool and then progressing to looser stool and diarrhea for the next 2 hours -No nausea/vomiting. +GERD and hiatal hernia noted on imaging. -Cholestipol switched to cholestyramine - helpful for diarrhea, stool is more formed the past 2 weeks. Upper abdo bloating is also better with cholestyramine. -Has had problems with hyponatremia and confusion requiring ICU hospitalization - may have been due to taking 96oz free water and Lasix at the same time and also having a lot of diarrhea at the time -Has back stimulator, but it does not contain any medications -Fluids currently, decaf unsweetened iced tea <60 oz/d. Separates liquids from solids and sips the fluids through the day. -Eating a variety of foods, but doesn't notice any difference in symptoms based on what she eats. Gets 20g protein with each meal, eats 3 meals a day. Takes Ensure High Protein if she missed a meal. Therapies tried: Flagyl - psychotic episode requiring hospitalization Rifaximin - minimally effective PERT - Creon was poorly tolerated with worsening diarrhea Cholestipol - not helpful Cholestyramine - most helpful, takes it twice a day Imodium - not helpful, too much bloating Lomotil - not helpful, too much bloating Fiber - Citrucel helpful, continues to take it twice a day Protonix - helpful for GERD Farxiga - helpful CURRENT NUTRITION SUPPORT: None Weight history:Last 10 Encounter Wt Readings: Pre-surgery 230 lbs; lowest weight 115 lbs. Date: Wt: 04/29/2022 62.8 kg (138 lb 6.4 oz) 02/28/2022 63 kg (139 lb) 02/25/2020 60.8 kg (134 lb) 01/21/2020 60.8 kg (134 lb) 12/20/2019 59.4 kg (131 lb) 12/15/2019 59 kg (130 lb) 11/25/2019 59 kg (130 lb) 11/24/2019 59.9 kg (132 lb) 11/18/2019 59.9 kg (132 lb) 10/13/2019 59 kg (130 lb) Current Outpatient Medications Medication Sig acetaminophen (TYLENOL) 500 mg tablet Take by mouth. azelastine (ASTELIN, ASTEPRO) 0.1% nasal spray Use in the nose q 12 HR. azelastine (ASTELIN, ASTEPRO) 0.1% nasal spray USE 2 (TWO) SPRAY TWICE DAILY TO PREVENT AND TREAT ALLERGY RHINITS (ANTIHISTAMINE) Bacillus subtilis-inulin 1.5 (more content not included)... [facility] percentage[facility] 2021 Bilirubin [Mass/Vol] 0.40 mg/dL 0.20-1.00 [facility] Work Phone: Comment on above: For patients on eltr ombopag therapy, use of Dimension [place] TBIL is not recommended. Chloride [Moles/Vol] 109 mmol/L 98-107 [facility] Work Phone: Glucose [Mass/Vol] 272 mg/dL 74-106 [facility] Work Phone: Comment on above: Glucose result great er than or equal to 200 mg/dLsuggests DIABETES MELLITUS per A.D.A. criteria. Potassium [Moles/Vol] 4.1 mmol/L 3.5-5.1 [facility] Work Phone: Protein [Mass/Vol] 6.3 g/dL 6.4-8.2 [facility] Work Phone: Sodium [Moles/Vol] 137 mmol/L 136-145 [facility] Work Phone: Laboratory - Chemistry and C hemistry - challengeon 05-28-2022 ALP [Catalytic activity/Vol] 63 U/L 45-117 [facility] Work Phone: ALT [Catalytic activity/Vol] 31 U/L 13-56 [facility] Work Phone: CO2 [Moles/Vol] 22.0 mmol/L 21.0-32.0 [facility] Work Phone: Globulin (S) [Mass/Vol] 3.0 g/dL 2.2-4.2 [facility] Work Phone: Urea nitrogen/Creatinine [Mass ratio] 15.0 mg/mg 10-20 [facility] Work Phone: No Panel Informationon 05-28 Estimated GFR (MDRD) Amer 82 mL/min >60 [facility] Work Phone: Comment on above: GFR Calc Estimated GFR (MDRD) Non-Af Amer 68 mL/min >60 [facility] Work Phone: Comment on above: Non- GFR Calc Serum or plasma albumin shane urement (mass/volume)on 05-28-2022 Albumin [Mass/Vol] 3.3 g/dL 3.2-5.0 [facility] Work Phone: Serum or plasma albumin/glob ulin mass ratioon 05-28-2022 Albumin/Globulin [Mass ratio] 1.1 {ratio} 0.9-2.4 [facility] Work Phone: Serum or plasma calcium shane urement (mass/volume)on 05-28-2022 Calcium [Mass/Vol] 7.8 mg/dL 8.5-10.1 [facility] Work Phone: Serum or plasma creatinine m easurement (mass/volume)on 05-28-2022 Creatinine [Mass/Vol] 0.86 mg/dL 0.55-1.02 [facility] Work Phone: Comment on above: The validity of the calculated GFR & GFRAA in patients over 70 years has not been determined. Clinical correlation is essential. Serum or plasma urea nitroge n measurement (mass/volume)on 05-28-2022 Urea nitrogen [Mass/Vol] 13 mg/dL 7-18 [facility] Work Phone: Thin prep Papanicolaou smear with manual screeningon 05-28-2022 Thin prep Papanicolaou smear with manual screening 20 U/L 15-37 [facility] Work Phone: Thin prep Papanicolaou smear with manual screening 6 5-15 [facility] Work Phone: Whole blood hemoglobin A1c/t otal hemoglobin ratio (mass fraction)on 05-28-2022 HbA1c (Bld) [Mass fraction] 6.6 % 3.8-5.6 [facility] Work Phone: Comment on above: Normal < 5.7 % Predi abetic 5.7 - 6.4 % Diabetic >or= 6.5 % Please note range changes. No Panel Informationon 05-07 Miscellaneous Test See comment [facility] Work Phone: Comment on above: SALMONELLA/SHIGELLA SCREEN FINAL REPORTRESULT 1 NO SALMONELLA OR SHIGELLA RECOVEREDCAMPYLOBACTER CULTURE FINAL REPORTRESULT 1 NO CAMPYLOBACTER SPECIES ISOLATEDE COLI SHIGA TOXIN EIA NEGATIVE(Reference Interval=Negative) TESTING PERFORMED AT [facility]. ORIGINAL REPORT ON FILE IN LAB CONTAINS ADDITIONAL TEST SITE INFORMATION. 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.1) (K58.0) GERD (gastroesophageal reflux disease) (530.81) (K21.9) Orders Bile salt-induced diarrhea Start: Cholestyramine 4 GM Oral Packet; MIX THE CONTENTS OF 1 POWDER PACKET WITH 2-6 OZ OF NONCARBONATED BEVERAGE AND SWALLOW TWICE DAILY Rx By: Marilia Stubbs; Dispense: 30 Days ; #:60 Packet; Refill: 1;For: Bile salt-induced diarrhea; MICHAEL = N; Sent To: [facility] Diarrhea STOOL PATHOGEN PCR PANEL; Status:Active; Requested for:[id number]; Perform:Lab Services - Lab To Draw (Non-Blood Test); Due:04Aug2022;Ordered; For:Diarrhea; Ordered By:Marilia Stubbs; Provider Impressions I spent approximately 45 minutes with Madelyn and her summarizing her current and past medical history as well as her multiple visits with multiple practitioners. In reviewing her medication I do not see anything that is likely contributing to her diarrhea I believe it is still largely bile salt diarrhea I do not believe she is having bacterial overgrowth syndrome as she is having no bloating. Recommend we change her Colestid to cholestyramine as she may not be able to process the Colestid tablets secondary to gastric bypass. I have suggested we try this for 2 weeks if there is no improvement then we would consider changing her Protonix to Aciphex assuming the Protonix may be causing a secretory diarrhea from PPI therapy. We attempted to transition her to H2 blockers in the past but she failed with worsening reflux symptoms. Chief Complaint FUV in office today for 2 month follow up. Patient has seen several physicians since last visit including another GI doctor for a second opinion. Patient had EGD and Colonoscopy completed by Dr. Bryan. Pt does not have biopsy results back yet on those. Pt states that she is still having such bad IBS in the mornings that she can not leave the house for several hours due to extreme diarrhea. History of Present IllnessEijamaal is seen today in follow-up. She underwent Shani-en-Y gastric bypass approximately 8 years ago. She became a patient approximately 4 years ago where he was treated presented with chronic diarrhea. No colonoscopy was completed she had had prior colonoscopy before gastric bypass. She was felt to have bacterial overgrowth syndrome was treated with Flagyl and improved. She developed breakthrough diarrhea and Flagyl was continued on an intermittent but long-term basis. She had acute psychotic break requiring hospitalization, at that time she was on concomitant steroids for back problems. She was hospitalized at [facility] for several weeks and was felt that it was combination of steroids and Flagyl that may have contributed to her psychotic break. Because of worsening diarrhea symptoms complaining of having several loose stools in the morning typically begins the morning with 1 formed stool then as the morning progresses will have several small stools which usually end around 10:50 AM. She admits her stools are soft break apart on the toilet and float. She denies any abdominal bloating no melanic stools no true steatorrhea. She has had multiple appointments with multiple GI doctors she was seen by Dr. Wynn in November of this year at [facility] she underwent EGD at that time was found to have a small hiatal hernia no biopsies were taken but he noted some erosions at her gastric pouch. He recommended repeat endoscopy which was not completed and a follow-up small bowel follow-through was done on December 12, 2018 which demonstrated moderate size hiatal hernia. She had recent EGD and colonoscopy performed by Dr. Dolores Doll at [facility] in [place] she noted there is a small hiatal hernia that her gastric pouch and E ferret limb were healthy biopsies were taken. Colonoscopy was normal although prep was fair to the cecum and random biopsies were taken throughout the colon it was noted that her rectal tone was poor and she had some internal hemorrhoids. Patient is recently seen Dr. Nam Neal at [facility] for consideration of reversal gastric bypass he is referred her onto Dr. Micah Tinoco for comprehensive assessment and treatment prior to any reversal surgery. Review of Systems Constitutional: no fever, no chills, not feeling tired and no recent weight loss. ENT: no lymphadenopathy. Cardiovascular: no shortness of breath and no chest pain. Respiratory: no cough. Gastrointestinal: as noted in HPI. Musculoskeletal: no joint swelling. Integumentary: no rashes, no skin lesions and was no jaundiced. All other systems have been reviewed and are negative for complaint. 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 Normal [employer] ANES PRE-OPon 05-02-2022 ANES PRE-OP HNO ID: [id number] Author: Kyra Leiva MD Service: Anesthesiology Author Type: Physician Type: Anesthesia Preprocedure Evaluation Filed: 07/24/2022 1:41 PM Note Text: ANESTHESIOLOGY DAY OF SURGERY NOTE : 1945 Procedure Information Date/Time: 05/02/22 1100 Scheduled providers: Dolores Doll MD Procedures: COLONOSCOPY DIAGNOSTIC EGD DIAGNOSTIC Location: [facility] SURGERY Estimated body mass index is 40.29 kg/m? as calculated from the following: Height as of 06/07/22: 125.7 cm (4' 1.5). Weight as of 06/07/22: 63.7 kg (140 lb 6.4 oz). Most recent hematocrit and potassium results: Hematocrit 38.0 06/10/2022 Potassium 3.6 06/10/2022 Relevant Problems CARDIO (+) Essential hypertension, benign (+) Unspecified venous (peripheral) insufficiency GI (+) Esophageal reflux I - PHYSICAL EVALUATION AIRWAY Patient intubated: No. Tracheostomy tube not present Mallampati: II. TM distance: >3 FB. Neck ROM: full ROM without neurological symptoms. Mouth opening: adequate. Short neck: no. Thick neck: no Carrington present: no DENTAL Additional comments: Upper and lower bridges. Additional exam findings: yes. CARDIOVASCULAR Normal cardiovascular observations. PULMONARY Normal pulmonary observations. II - ANESTHESIA PLAN ASA Score: 3 Anesthetic Plan: MAC The patient is not a current smoker. NPO Status: adequate Beta Bayron Monitoring Plan Monitoring plan: standard ASA. Post Procedure Analgesic Plan Postoperative analgesic plan: parenteral or oral opioids. Informed Consent Anesthetic risks, benefits, alternatives, personnel and consent discussed: yes. Patient / Responsible Alliance Party agrees to proceed: yes Patient / Surrogate agrees to blood products: Yes DNR status not reviewed with patient and/or family prior to surgery. Significant changes in the patient condition since the History and Physical, not otherwise documented in primary service progress note: no. Potential Anesthesia issues that may suggest increased risk of complications or contraindication to planned procedure: other. Cardiac clearance reviwed Vitals Value Taken Time BP 168/79 05/02/22 1225 Pulse 75 05/02/22 1225 Resp 19 05/02/22 1225 Temp 36.2 ?C (97.2 ?F) 05/02/22 1205 SpO2 99 % 05/02/22 1225 No current facility-administered medications on file as of 05/02/2022. Outpatient Medications as of 05/02/2022 Medication Sig - azelastine (ASTELIN, ASTEPRO) 0.1% nasal spray Use in the nose q 12 HR. - Bacillus subtilis-inulin 1.5 billion cell-1 gram chew Take by mouth. - BENZONATATE ORAL Zonatuss takes 2-3 Not-Taking - chlorpheniramine (CHLORTRIMETON) 4 mg tablet Take by mouth. - Cranberry 500 mg cap Take by mouth. - diclofenac (VOLTAREN) 1 % topical gel Diclofenac Sodium 1 % External Gel Quantity: 100 Refills: 0 Ordered: 26-Jun-2019 DO Start : 15-Jun-2019 Active - empagliflozin (JARDIANCE) 10 mg tablet Take by mouth. - finerenone (KERENDIA) 10 mg tablet Take by mouth. - Ipratropium Anthon (ATROVENT) 21 mcg (0.03 %) nasal spray Use in the nose. - L. acidophilus/Bifid. animalis 32 billion cell cap Take by mouth. - Milk Thistle 150 mg cap Take 140 mg by mouth. - GAVILYTE-G 236-22.74-6.74 -5.86 gram suspension PLEASE SEE ATTACHED FOR DETAILED DIRECTIONS - Polypodium Leucotomos Extract 240 mg cap Take 1 capsule by mouth q 24 HR. - Psyllium Husk-Sucrose 3.4 gram/7 gram powd Take by mouth. - rifAXIMin (XIFAXAN) 550 mg tablet Take 550 mg by mouth. - WHEAT DEXTRIN ORAL Take by mouth. - colestipol (COLESTID) 1 gram tablet Take 1 g by mouth twice daily. - FARXIGA 5 mg tablet Take 5 mg by mouth once daily. - donepezil (ARICEPT) 10 mg tablet 10 MG ORALLY DAILY BEGIN AFTER COMPLETING ONE MONTH OF TREATMENT OF DONEPEZIL 5MG NIGHTLY - ferrous sulfate 325 mg (65 mg iron) tablet Take 1 tablet by mouth once daily. - melatonin 3 mg tablet Take 6 mg by mouth once daily. - milk thist seed ext/milk thist (MILK THISTLE EXTRACT ORAL) Take by mouth once daily. - potassium citrate ER (UROCIT-K) 10 mEq (1,080 mg) Take by mouth once daily. Take two by mouth daily - ascorbic acid, vitamin C, (VITAMIN C) 500 mg tablet Take 250 mg by mouth twice daily. 1/2 tablet - calcium citrate (CITRACAL ORAL) Take by mouth three times daily. Two tablets - MYRBETRIQ 25 mg Tb24 TAKE 1 TABLET BY MOUTH TWICE A DAY - calcium carb/magnesium hydrox (ROLAIDS ORAL) Take by mouth. - calcium citrate/vitamin D3 (CALCIUM CITRATE + D ORAL) Take by mouth once daily. - Lactobac no.41/Bifidobact no.7 (PROBIOTIC-10 ORAL) Take by mouth once daily. - carvedilol (COREG) 6.25 mg tablet 25 mg twice daily at 6AM and 9PM. - estradiol (ESTRACE) 0.01 % (0.1 mg/gram) vaginal cream - amLODIPine (NORVASC) 2.5 mg tablet Take 2.5 mg by mouth once daily. Takes 5 MG - BENEFIBER, GUAR GUM, ORAL Take by mouth once daily. - cyanocobalamin (VITAMIN B-12) 1,000 mcg tab Take 1,000 mcg by mouth once daily. - pre (more content not included)... [facility] BRIEF OP NOTon 05-02-2022 BRIEF OP NOT HNO ID: [id number] Author: Dolores Doll MD Service: General Surgery Author Type: Physician Type: Brief Op Note Filed: 05/02/2022 12:07 PM Note Text: BRIEF OPERATIVE NOTE SURGERY DATE: 05/02/2022 Incision/Procedure Start Time: 11:32 cecal intubation time: 11:54 Incision Close/Procedure End Time: 12:02 Surgeon(s)/Proceduralist(s ) and Masking Machine Operator(s): bisi Procedures: EGD with biopsies Colonoscopy with random mucosal biopsies Anesthesia: MAC Findings: normal colon except for hemorrhoids, relaxed anal sphincter tone precluding retroflex view to maintain air in the rectum, normal stomach pouch, normal esophagus, normal GE junction, widely patent Shani en Y Estimated Blood Loss: minimal Specimens: mucosal biopsies of stomach pouch, mucosal biopsies of GE junction, random mucosal biopsies of colon Complications: None Preop Diagnosis: diarrhea, GERD Postop Diagnosis: same SIGNATURE: Dolores Doll MD PATIENT NAME: Madelyn Love DATE: May 02, 2022 TIME: 12:04 PM Acct: [id number] [facility] HISTORY PHYSICALon HISTORY PHYSICAL HNO ID: [id number] Author: Dolores Doll MD Service: General Surgery Author Type: Physician Type: HANDP Filed: 05/02/2022 10:41 AM Note Text: HISTORY AND PHYSICAL Madelyn Love 1945 REFERRING PHYSICIAN: Hugo Julio MD CHIEF COMPLAINT: Consult HPI: The patient is a 76 year old female with a complaint of abdominal cramping and morning diarrheal stools. The patient notes a progressive worsening of diarrhea and lower abdominal complaints for the past 2 years. She is now at the point where when she wakes up she has multiple loose stools each morning usually starting with a somewhat formed stool but then progressing to looser stools diarrhea for 2 hours. She states that it now becomes difficult to leave her house most mornings because of the unpredictability of her bowel activity. She states this does not seem to relate to what ever food she eats in the morning. She also notes that she can eat lunch and dinner without having recurrence of the symptoms. She denies nausea or vomiting. she does note acid reflux. She notes degree of loss of stool control in the mornings. She notes no melena or blood in her stools. She denies weight loss. She had undergone a Shani-en-Y gastric bypass and prior cholecystectomy. She also underwent repair of rectocele and cystocele 2 years previously. She saw her surgeon that performed her Shani-en-Y gastric bypass-Dr. Carlos Granados. He most recently saw the patient on January 24, 2022. His diagnosis was malabsorption. He recommended following up with colorectal surgery for her complaint of loose stools and incontinence. She has been followed by gastroenterology-Dr. Marilia Cheung at [facility]. She was last seen by him on March 04, 2022. Patient has been receiving treatment at that location for possible small intestinal bacterial overgrowth. She was given rifaximin from to January 08. She did not note enough of a change in her symptoms to continue paying for that medication. They had performed a breath test 1 year previously which was felt to be positive for SIBO. She was treated with rifaximin at that time with some improvement. Previously she had been given Flagyl which was discontinued at states when she had a psychotic break while taking long-term steroids for arthritis. She was apparently hospitalized at [facility] for this. 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 She had an upper endoscopy performed on December 02, [address] Wynn which demonstrated some smaller bleeding erosions in the gastric fundus normal jejunum and was felt to have a hiatal hernia? No biopsies were obtained but it was recommended she have follow-up upper endoscopy to evaluate healing of that site. The patient underwent upper GI with small bowel follow-through on November 12, 2018. This demonstrated a moderate sized hiatal hernia and status post subtotal gastrectomy and gastric bypass no other specific abnormalities were noted. The patient had a flexible sigmoidoscopy on June 07, 2019 prior to her rectocele cystocele repair. This was unremarkable. She understands she had a colonoscopy with no abnormalities prior to that. I do not have records of that study. I do not know if random biopsies were obtained. The patient is being seen by me today at the request of Dr. Hugo Julio MD, MD for my opinion and advice regarding diarrhea loose stools abdominal cramping. PAST MEDICAL HISTORY Diagnosis Date Allergic rhinitis, cause unspecified Chronic kidney disease, stage IV (severe) (HCC) Congestive heart failure, unspecified DR. 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 CATARACT EXTRACTION HX Bilateral 2018 CHOLECYSTECTOMY 2014 COLONOSCOPY FLX DX W/COLLJ SPEC WHEN PFRMD 08/11/2006 Colonoscopy GASTRIC BYPASS, SHANI-EN-Y 2013 HYSTERECTOMY 2013 OSTECTOMY CALCANEUS SPUR W/WO PLNTAR FASCIAL RLS 1980 bilateral heels PAST SURGICAL HISTORY OF 07/18/09 heart cath (more content not included)... [facility] NURSING PROGon 05-02-2022 NURSING PROG HNO ID: [id number] Author: Genny Cain RN Service: Nursing Author Type: Registered Nurse Type: Nursing Progress Note Filed: 05/02/2022 1:25 PM Note Text: Discharge instructions were reviewed with patient's spouse KATI. Spouse verbalized understanding. No questions or concerns were voiced at this time. [facility] NURSING PROG HNO ID: [id number] Author: Genny Cain RN Service: Nursing Author Type: Registered Nurse Type: Nursing Progress Note Filed: 05/02/2022 1:23 PM Note Text: Discharge instructions were reviewed with patient. Pt verbalized understanding. No questions or concerns were voiced at this time. [facility] NURSING PROG HNO ID: [id number] Author: Genny Cain RN Service: Nursing Author Type: Registered Nurse Type: Nursing Progress Note Filed: 05/02/2022 12:38 PM Note Text: Pt received to pacu awake and alert. All treatments and procedures were explained. Pt verbalized understanding. [facility] OPERATIVE NOon 05-02-2022 OPERATIVE NO HNO ID: [id number] Author: Dolores Doll MD Service: General Surgery Author Type: Physician Type: Operative Report Filed: 05/03/2022 8:23 AM Note Text: [facility] - Operative Report - MADELYN Colon : 1945 AGE: 76. SEX: F PATIENT TYPE: [facility] [place]: [facility] LOCATION: [facility] ATTENDING PHYSICIAN: Dolores Doll MD CSN NUMBER: [id number] DATE OF SURGERY/PROCEDURE: 05/02/2022 INCISION/PROCEDURE START TIME: 11:32 AM INCISION CLOSE/PROCEDURE END TIME: 12:02 PM PREOPERATIVE DIAGNOSIS: Diarrhea, acid reflux, status post Shani-en-Y gastric bypass. POSTOPERATIVE DIAGNOSIS: Patent Shani-en-Y gastric bypass and normal colon except for hemorrhoids. SURGEON: Dolores Doll MD FOOD TECHNICIAN: No Additional Staff SURGERY/PROCEDURE: Esophagogastroduodenoscopy with biopsies and colonoscopy with random mucosal biopsies. ANESTHESIA: Use monitored anesthesia care. LOCATION: [facility]. INDICATIONS: Madelyn Love is a 76-year-old female who presents with complaints of diarrhea and lower abdominal cramping. She also notes acid reflux. She therefore presents for upper and lower endoscopy. She has been counseled on the risks of procedure including, but not limited to infection, bleeding, perforation, GI tract requiring emergency surgery, inability to complete the procedure, injury to any internal organs such as liver or spleen, complications, anesthesia, etc. The patient understands and agrees to proceed. DESCRIPTION OF PROCEDURE: After informed consent was given, the patient was brought to the endoscopy suite. Appropriate time-out protocol was done in preprocedure area as well as in the endoscopy suite. The patient was given IV anesthesia by the anesthesia provider. Her posterior pharynx was sprayed with local anesthetic and bite block was placed. The upper endoscope was lubricated, carefully inserted into the patient's mouth and advanced into the esophagus. It was then advanced down the esophagus to the stomach pouch, which was small that is appropriate s/p bariatric gastric surgery. The Shani-en-Y limbs were widely patent. There was no evidence of any ulcerations or any masses. Because of the patient's complaint, mucosal biopsies were taken of the stomach pouch using cold grasper forceps. The endoscope was then retracted back into the esophagus. The GE junction appeared grossly normal. However, because of the patient's complaint, mucosal biopsies were taken using cold grasper forceps. The patient was noted to have active gastroesophageal reflux. The remainder of the esophagus appeared normal. The endoscope was removed intact. The patient tolerated this portion of procedure well. The colonoscopy was done next. The colonoscope was lubricated, carefully inserted into patient's anus and advanced into the rectum. It was then advanced into the sigmoid colon, then the left colon, past splenic flexure into transverse colon, past hepatic flexure down the right colon to the cecum. The colon cleansing preparation was adequate. Because the patient's complaint, random mucosal biopsies were taken using cold grasper forceps throughout the colon. There was no evidence of any masses, polyps, or lesions in the right colon. There was no evidence of any masses, polyps, or lesions in the transverse colon. There was no evidence of any masses, polyps, or lesions in the left colon. There was no evidence of any masses, polyps, lesions in the sigmoid colon. There was no evidence of any masses or polyp in the rectum. The patient was noted to have a lax anal sphincter tone and the patient was also noted to have hemorrhoidal disease. The patient tolerated the procedure well and brought to recovery room in stable condition. SPECIMENS: Mucosal biopsies of stomach pouch, mucosal biopsies of GE junction, random mucosal biopsies of the colon. ESTIMATED BLOOD LOSS: Minimal. COMPLICATIONS: None. Dolores Doll MD LW:[id number] /[id number] [facility] SURGICAL PATHOLOGYon CASE REPORT [facility] Comment on above: Order Comment: Speci men Type: TISSUE SPECIMEN Ordering Facility: [facility] Address: [address] [place] [address] Result Comment: Surg ical Pathology Report Case: [id number] Authorizing Provider: Dolores Doll MD Collected: 05/02/2022 11:34 AM Ordering Location: SURGERY Received: 05/03/2022 12:47 PM Pathologist: Jeffrey Mesa MD Specimens: A) - POUCH BIOPSY, Gastric Pouch Biopsy B) - ESOPHAGOGASTRIC JUNCTION BIOPSY C) - COLON BIOPSY, Random Mucosal Biopsies Performed By: #### S #### [facility] CLIA [id number] [address] CLINICAL HISTORY Diarrhea, acid reflu x, status post Shani-en-Y gastric bypass. [facility] Comment on above: Order Comment: Speci men Type: TISSUE SPECIMEN Ordering Facility: [facility] Address: [address] [place] [address] Performed By: #### S #### [facility] CLIA [id number] [address] [place] [address] FINAL DIAGNOSIS [facility] Comment on above: Order Comment: Speci men Type: TISSUE SPECIMEN Ordering Facility: [facility] Address: [address] [place] [address] Result Comment: A. S tomach, gastric pouch, biopsy: - Gastric body/fundus mucosa with no significant histopathologic abnormality. - There is no evidence of Helicobacter pylori infection on routine stains. B. Esophagogastric junction, biopsy: - Gastric-type glandular mucosa with very mild chronic inflammation. - No intestinal metaplasia or dysplasia is identified. - There is no esophageal squamous epithelium sampled. C. Colon, random, biopsy: - Colonic mucosa with no histopathologic abnormality. Performed By: #### S #### [facility] CLIA [id number] [address] FINAL PERFORMING LAB Normal [facility] Comment on above: Order Comment: Speci men Type: TISSUE SPECIMEN Ordering Facility: [facility] Address: [address] [address] Result Comment: Diag nostic interpretation performed at [facility], [address] [place] [address] CLIA# [id number] Recreation Therapy Aides Teacher: Hugo Singleton M.D. Performed By: #### S #### [facility] CLIA [id number] [address] [place] [address] GROSS DESCRIPTION A. POUCH BIOPSY Normal [facility] Comment on above: Order Comment: Speci men Type: TISSUE SPECIMEN Ordering Facility: [facility] Address: [address] [address] Result Comment: A. R eceived in formalin labeled gastric pouch biopsy is a hernandez soft segment of tissue measuring 0.5 x 0.3 x 0.1 cm. The specimen is totally submitted in formalin and one cassette. B. ESOPHAGOGASTRIC JUNCTION BIOPSY B. Received in formalin labeled esophagogastric junction biopsy are multiple hernandez soft segments of tissue aggregating to 0.7 x 0.2 by less than 0.1 cm. The specimens are totally submitted in formalin and one cassette. C. COLON BIOPSY C. Received in formalin labeled random mucosal biopsies are multiple hernandez soft segments of tissue aggregating to 0.8 x 0.6 x 0.1 cm. The specimens are totally submitted in formalin and one cassette. Gross examination performed at [facility], [address] [place] [address] KVB May 03, 2022 3:33 PM Performed By: #### S #### [facility] CLIA [id number] [address] Basophil percentageon 2021 Basophil percentage 4.2 mg/dL 2.5-4.9 [place] [facility] Work Phone: Chloride [Moles/Vol] 101 mmol/L 98-107 [place] [facility] Work Phone: Glucose [Mass/Vol] 132 mg/dL 74-106 [facility] Work Phone: Comment on above: Fasting Glucose resu lt greater than or equal to 126 mg/dL suggests DIABETES MELLITUS per A.D.A. criteria. Potassium [Moles/Vol] 4.6 mmol/L 3.5-5.1 [facility] Work Phone: Sodium [Moles/Vol] 136 mmol/L 136-145 [facility] Work Phone: CNPC[facility]uel[facility] MADELYN LOVE ([id number]) 1945 F Date Time Provider Department 04/30/22 LYNNE KEY GASTA5 During your visit today, we recorded the following information about you: Tiara Plaza LPN 04/30/2022 1:08 PM Signed LVM to schedule an appointment per request from Dr. Aakash Bryan. H/O Shani-en-Y; malabsorption; SIBO. Tiara Plaza MINERAL TECHNOLOGIST 04/30/2022 4:25 PM Signed Spoke with patient and . Patient unable to have morning appointment due to bowel issues. Scheduled 1st available afternoon appointment on 06/07/22 at 2:00 pm. Patient request a paper appointment reminder. Patient and understands and agrees with plan. Tiara Plaza LPN Allergies As of Date: 04/30/2022 Noted Allergy Reaction PREDNISONE 04/29/2022 1 - Mental Status Change VIOXX (ROFECOXIB) 03/05/2005 7 - Swelling NSAIDS (NON-STEROIDAL ANTI-INFLAM*02/11/2019 14 - Other: See Comments Comments: Gastric bypass Date Reviewed: 04/29/2022 Reviewed by: Ibis Brewer Ma - Fully Assessed Reason for Visit: Appointment [186] Prescriptions as of 05/10/2022 - acetaminophen (TYLENOL) 500 mg tablet Take by mouth. - amoxicillin (AMOXIL) 875 mg tablet Take by mouth q 12 HR. - azelastine (ASTELIN, ASTEPRO) 0.1% nasal spray Use in the nose q 12 HR. - azelastine (ASTELIN, ASTEPRO) 0.1% nasal spray USE 2 (TWO) SPRAY TWICE DAILY TO PREVENT AND TREAT ALLERGY RHINITS (ANTIHISTAMINE) - azithromycin (ZITHROMAX) 250 mg tablet Take by mouth. - Bacillus subtilis-inulin 1.5 billion cell-1 gram chew Take by mouth. - BENZONATATE ORAL Zonatuss takes 2-3 Not-Taking - ONETOUCH ULTRA TEST test strip once daily. - chlorpheniramine (CHLORTRIMETON) 4 mg tablet Take by mouth. - FLOWFLEX COVID-19 AG HOME TEST kit as directed. - Cranberry 500 mg cap Take by mouth. - diclofenac (VOLTAREN) 1 % topical gel Diclofenac Sodium 1 % External Gel Quantity: 100 Refills: 0 Ordered: 26-Jun-2019 DO Start : 15-Jun-2019 Active - empagliflozin (JARDIANCE) 10 mg tablet Take by mouth. - fexofenadine (ZAINAB) 60 mg tablet Take by mouth q 12 HR. - finerenone (KERENDIA) 10 mg tablet Take by mouth. - fluticasone (FLONASE) 50 mcg/actuation nasal spray Use in the nose q 24 HR. - Idaorzeeq-Bncrepyjbezxtf-Q apple 3-2.5 % (7 gram) kit by RECTAL route. - Ipratropium Anthon (ATROVENT) 21 mcg (0.03 %) nasal spray Use in the nose. - ONE TOUCH DELICA 33 gauge USE ONCE A DAY DIRECTED - L. acidophilus/Bifid. animalis 32 billion cell cap Take by mouth. - magnesium gluconate (MAGONATE) 27 mg (500 mg) tab Take 500 mg by mouth. - Milk Thistle 150 mg cap Take 140 mg by mouth. - montelukast (SINGULAIR) 10 mg tablet Take by mouth. - GAVILYTE-G 236-22.74-6.74 -5.86 gram suspension PLEASE SEE ATTACHED FOR DETAILED DIRECTIONS - Polypodium Leucotomos Extract 240 mg cap Take 1 capsule by mouth q 24 HR. - Psyllium Husk-Sucrose 3.4 gram/7 gram powd Take by mouth. - rifAXIMin (XIFAXAN) 550 mg tablet Take 550 mg by mouth. - WHEAT DEXTRIN ORAL Take by mouth. - colestipol (COLESTID) 1 gram tablet Take 1 g by mouth twice daily. - FARXIGA 5 mg tablet Take 5 mg by mouth once daily. - donepezil (ARICEPT) 10 mg tablet 10 MG ORALLY DAILY BEGIN AFTER COMPLETING ONE MONTH OF TREATMENT OF DONEPEZIL 5MG NIGHTLY - ferrous sulfate 325 mg (65 mg iron) tablet Take 1 tablet by mouth once daily. - melatonin 3 mg tablet Take 6 mg by mouth once daily. - milk thist seed ext/milk thist (MILK THISTLE EXTRACT ORAL) Take by mouth once daily. - famotidine (PEPCID) 20 mg tablet Take 20 mg by mouth twice daily. - potassium citrate ER (UROCIT-K) 10 mEq (1,080 mg) Take by mouth once daily. Take two by mouth daily - ascorbic acid, vitamin C, (VITAMIN C) 500 mg tablet Take 250 mg by mouth twice daily. 1/2 tablet - calcium citrate (CITRACAL ORAL) Take by mouth three times daily. Two tablets - MYRBETRIQ 25 mg Tb24 TAKE 1 TABLET BY MOUTH TWICE A DAY - traMADol (ULTRAM) 50 mg tablet - calcium carb/magnesium hydrox (ROLAIDS ORAL) Take by mouth. - simethicone (GAS-X ORAL) Take by mouth. 2 TABS EVERY AFTER MEAL AND HS NEEDED - calcium citrate/vitamin D3 (CALCIUM CITRATE + D ORAL) Take by mouth once daily. - Lactobac no.41/Bifidobact no.7 (PROBIOTIC-10 ORAL) Take by mouth once daily. - fdsujf-rwqumkrm-ulxczze (CREON 36) 36,000-114,000- 180,000 unit capsule Take 2 capsules by mouth three times daily with meals. Take 2 caps 3 times daily with meals;1 cap with each snack. - pantoprazole DR (PROTONIX) 40 mg tablet Take 1 tablet by mouth once daily. - carvedilol (COREG) 6.25 mg tablet four times daily. - estradiol (ESTRACE) 0.01 % (0.1 mg/gram) vaginal cream - amLODIPine (NORVASC) 2.5 mg tablet Take 2.5 mg by mouth once daily. Takes 5 MG - BENEFIBER, GUAR GUM, ORAL Take by mouth once daily. (more content not included)... Normal [facility] - Chemistry and C hemistry - challengeon 04-30-2022 CO2 [Moles/Vol] 27.0 mmol/L 21.0-32.0 [facility] Work Phone: Urea nitrogen/Creatinine [Mass ratio] 29.8 mg/mg 10-20 [facility] Work Phone: No Panel Informationon 04-30 Estimated GFR (MDRD) Amer 85 mL/min >60 [facility] Work Phone: Comment on above: GFR Calc Estimated GFR (MDRD) Non-Af Amer 70 mL/min >60 [facility] Work Phone: Comment on above: Non- GFR Calc Urine Microalbumin/Creatinine Ratio 306.7 mg/g CRE <30 [facility] Work Phone: Serum or plasma albumin shane urement (mass/volume)on 04-30-2022 Albumin [Mass/Vol] 3.6 g/dL 3.2-5.0 [facility] Work Phone: Serum or plasma calcium shane urement (mass/volume)on 04-30-2022 Calcium [Mass/Vol] 8.6 mg/dL 8.5-10.1 [facility] Work Phone: Serum or plasma creatinine m easurement (mass/volume)on 04-30-2022 Creatinine [Mass/Vol] 0.84 mg/dL 0.55-1.02 [facility] Work Phone: Comment on above: The validity of the calculated GFR & GFRAA in patients over 70 years has not been determined. Clinical correlation is essential. Serum or plasma urea nitroge n measurement (mass/volume)on 04-30-2022 Urea nitrogen [Mass/Vol] 25 mg/dL 7-18 [facility] Work Phone: Thin prep Papanicolaou smear with manual screeningon 04-30-2022 Thin prep Papanicolaou smear with manual screening 169.0 mg/L NO RANGE EST. [facility] Work Phone: Urine creatinine measurement (mass/volume)on 04-30-2022 Creatinine (U) [Mass/Vol] 55.10 mg/dL NO RANGE EST. [facility] Work Phone: CNOVon 04-29-2022 CNOV Office Visit (GENBMI ) -- MADELYN LOVE ([id number]) 1945 F Date Time Provider Department 04/29/22 9:10 AM AAKASH BRYAN During your visit today, we recorded the following information about you: Pulse Blood pressure Weight Height 78/minute 136/76 62.8 kg 1.425 m Aakash Bryan MD 04/29/2022 4:09 PM S[address] [facility] DEPARTMENT OF SURGERY NAME: Madelyn Jazmyne Love [facility] NO: [id number] DATE OF SERVICE: April 29, 2022 CHIEF COMPLAINT: Chronic diarrhea and concern for malabsorption. Referral for consideration of reversal. HISTORY OF PRESENT ILLNESS: The patient is a 76 year old female with a complaint of abdominal cramping and morning diarrheal stools. The patient has progressive worsening of diarrhea and lower abdominal complaints for the past 2 years. She is now at the point where when she wakes up she has multiple loose stools each morning usually starting with a somewhat formed stool but then progressing to looser stools diarrhea for 2 hours. She also has fecal incontinence. She states this does not seem to relate to what ever food she eats in the morning. She also notes that she can eat lunch and dinner without having recurrence of the symptoms. She denies nausea or vomiting. she does note acid reflux. She notes degree of loss of stool control in the mornings. She notes no melena or blood in her stools. She denies weight loss. She had undergone a Shani-en-Y gastric bypass and prior cholecystectomy. She also underwent repair of rectocele and cystocele 2 years previously. She saw her surgeon that performed her Lap Shani-en-Y gastric bypass-Dr. Carlos Granados. He most recently saw the patient on January 24, 2022. His diagnosis was malabsorption. He recommended following up with colorectal surgery for her complaint of loose stools and incontinence. She has been followed by gastroenterology-Dr. Marilia Cheung at [facility]. She was last seen by him on March 04, 2022. Patient has been receiving treatment at that location for possible small intestinal bacterial overgrowth. She was given rifaximin from to January 08. She did not note enough of a change in her symptoms to continue paying for that medication. They had performed a breath test 1 year previously which was felt to be positive for SIBO. She was treated with rifaximin at that time with some improvement. Previously she had been given Flagyl which was discontinued at states when she had a psychotic break while taking long-term steroids for arthritis. She was apparently hospitalized at [facility] for this. 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 She had an upper endoscopy performed on December 02, [address] Wynn which demonstrated some smaller bleeding erosions in the gastric fundus normal jejunum and was felt to have a hiatal hernia? No biopsies were obtained but it was recommended she have follow-up upper endoscopy to evaluate healing of that site. The patient underwent upper GI with small bowel follow-through on November 12, 2018. This demonstrated a moderate sized hiatal hernia and status post subtotal gastrectomy and gastric bypass no other specific abnormalities were noted. The patient had a flexible sigmoidoscopy on June 07, 2019 prior to her rectocele cystocele repair. This was unremarkable. She understands she had a colonoscopy with no abnormalities prior to that. PAST MEDICAL HISTORY Diagnosis Date Allergic rhinitis, cause unspecified Chronic kidney disease, stage IV (severe) (HCC) Congestive heart failure, unspecified DR. 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 CATARACT EXTRACTION HX Bilateral 2018 CHOLECYSTECTOMY 2013 COLONOSCOPY FLX DX W/COLLJ SPEC WHEN PFRMD 08/11/2006 Colonoscopy GASTRIC BYPASS, SHANI-EN-Y 2013 HYSTERECTOMY 2014 OSTECTOMY CALCANEUS SPUR W/WO PLNTAR FASCIAL RLS 198 (more content not included)... [facility]GENBMI[facility] -- MADELYN LOVE ([id number]) 1945 F Date Time Provider Department 03/26/22 LIGIA JUAREZ During your visit today, we recorded the following information about you: Ligia Juarez RN 03/26/2022 5:19 PM Signed Received referral request from Renzo Callejas MD. Patient accepted [id number] in person visit with and will bring OSH records to appt. Patient has EGD and Colonoscopy scheduled 05-02-22 Allergies As of Date: 03/26/2022 Noted Allergy Reaction VIOXX (ROFECOXIB) 03/05/2005 7 - Swelling NSAIDS (NON-STEROIDAL ANTI-INFLAM*02/11/2019 14 - Other: See Comments Comments: Gastric bypass Date Reviewed: 03/11/2022 Reviewed by: Marcela Esquivel, RT(R) - Fully Assessed Reason for Visit: BMI Follow up [Other] Returning Patient's Call [408] Prescriptions as of 03/26/2022 - colestipol (COLESTID) 1 gram tablet Take 1 g by mouth twice daily. - FARXIGA 5 mg tablet Take 5 mg by mouth once daily. - donepezil (ARICEPT) 10 mg tablet 10 MG ORALLY DAILY BEGIN AFTER COMPLETING ONE MONTH OF TREATMENT OF DONEPEZIL 5MG NIGHTLY - ferrous sulfate 325 mg (65 mg iron) tablet Take 1 tablet by mouth once daily. - melatonin 3 mg tablet Take 6 mg by mouth once daily. - milk thist seed ext/milk thist (MILK THISTLE EXTRACT ORAL) Take by mouth once daily. - famotidine (PEPCID) 20 mg tablet Take 20 mg by mouth twice daily. - potassium citrate ER (UROCIT-K) 10 mEq (1,080 mg) Take by mouth once daily. Take two by mouth daily - ascorbic acid, vitamin C, (VITAMIN C WITH PETRA HIPS) 500 mg tablet Take 250 mg by mouth twice daily. 1/2 tablet - calcium citrate (CITRACAL ORAL) Take by mouth three times daily. Two tablets - MYRBETRIQ 25 mg Tb24 TAKE 1 TABLET BY MOUTH TWICE A DAY - traMADol (ULTRAM) 50 mg tablet TAKE 1 TABLET BY MOUTH 2 3 TIMES PER DAY NEEDED FOR PAIN - calcium carb/magnesium hydrox (ROLAIDS ORAL) Take by mouth. - simethicone (GAS-X ORAL) Take by mouth. 2 TABS EVERY AFTER MEAL AND HS NEEDED - calcium citrate/vitamin D3 (CALCIUM CITRATE + D ORAL) Take by mouth once daily. - Lactobac no.41/Bifidobact no.7 (PROBIOTIC-10 ORAL) Take by mouth once daily. - erbdco-usikjbuy-gpkbalc (CREON 36) 36,000-114,000- 180,000 unit capsule Take 2 capsules by mouth three times daily with meals. Take 2 caps 3 times daily with meals;1 cap with each snack. - pantoprazole DR (PROTONIX) 40 mg tablet Take 1 tablet by mouth once daily. - carvedilol (COREG) 6.25 mg tablet twice daily with meals. - estradiol (ESTRACE) 0.01 % (0.1 mg/gram) vaginal cream Estradiol ESTRACE CREA As needed as directed [id number] Ami Rios 01-25-2019 [facility] ([id number]) - amLODIPine (NORVASC) 2.5 mg tablet Take 2.5 mg by mouth once daily. Takes 5 MG - BENEFIBER, GUAR GUM, ORAL Take by mouth once daily. - cyanocobalamin (VITAMIN B-12) 1,000 mcg tab Take 1,000 mcg by mouth once daily. - pregabalin (LYRICA) 25 mg capsule Take 25 mg by mouth once daily. - B infantis/B ani/B maximino/B bifid (PROBIOTIC 4X ORAL) Take by mouth once daily. - cranberry fruit extract (CRANBERRY CONCENTRATE ORAL) Take by mouth once daily. - losartan potassium (LOSARTAN ORAL) Take 50 mg by mouth once daily. 100 MG - furosemide (LASIX) 40 mg tablet Take 1 tablet by mouth once each week. - potassium chloride ER (K-DUR, KLOR-CON) 20 mEq tablet Take 1 tablet by mouth twice daily. - calcium carbonate-Vit D3-minerals (CALTRATE PLUS) 600 mg calcium- 400 unit tab Take 2 tablets by mouth three times daily. - magnesium oxide 400 mg tablet Take 1 tablet by mouth twice daily. - multivitamins w-minerals/lut(CENTRUM SILVER TAB) Take one(1) tablet daily. Meds Comments as of 11/24/2019: PATIENT ON HER WAY TO 'S OFFICE, UNABLE TO REVIEW MEDS. WILL BRING COPY FOR REVIEW DAY OF PST Problem List As Of Date 03/26/2022 Noted Resolved DIABETES MELLITUS TYPE II-UNCOMPL [E11.9] 11/30/1998 BENIGN HYPERTENSION [I10] ALLERGIC RHINITIS NOS [J30.9] OSTEOARTHROS NOS-UNSPEC [M19.90] VENOUS INSUFFICIENCY NOS [I87.2] 03/06/2005 ESOPHAGEAL REFLUX [K21.9] 05/07/2006 DIFFUS CYSTIC MASTOPATHY [N60.19] 05/07/2006 OTHER LUNG DISEASE NEC [J98.4] 09/24/2007 Gastroparesis [K31.84] RP (rectal prolapse) [K62.3] 12/02/2019 Midline cystocele [N81.11] 01/21/2020 Urgency of urination [R39.15] 01/21/2020 Urge incontinence [N39.41] 01/21/2020 Encounter Status:Closed by LIGIA JUAREZ on 03/26/22 Normal [facility] Basophil percentageon 2021 Cholesterol [Mass/Vol] 159 mg/dL <200 [facility] Work Phone: Comment on above: <200 mg/dL Desirable 200-240 mg/dL Borderline >240 mg/dL High Risk Triglyceride [Mass/Vol] 154 mg/dL <199 [facility] Work Phone: Comment on above: The drugs N-Acetylcy steine and Metamizole may falsely depress this assay.Serum Triglycerides Reference Interval Normal <150 mg/dL Borderline high 150 - 199 mg/dL High 200 - 499 mg/dL Very High > or = 500 mg/dL Serum or plasma cholesterol in HDL measurement (mass/volume)on 03-20-2022 Cholesterol in HDL [Mass/Vol] 72 mg/dL >40 [facility] Work Phone: Comment on above: The drugs N-Acetylcy steine and Metamizole may falsely depress this assay. Reference Range HDL <40 mg/dL Low HDL Cholesterol HDL >or= 60 mg/dL High HDL Cholesterol Serum or plasma cholesterol in VLDL measurement (mass/volume)on 03-20-2022 Cholesterol in VLDL [Mass/Vol] 31 mg/dL 5-40 [facility] Work Phone: Serum or plasma low density lipoprotein (LDL) cholesterol measurement (mass/volume)on 03-20-2022 Cholesterol in LDL [Mass/Vol] 56 mg/dL 0-130 [facility] Work Phone: Huy 03-14-2022 CNPN Telephone ([employer]) -- MADELYN LOVE ([id number]) 1945 F Date Time Provider Department 03/14/22 RENOZ CALLEJAS During your visit today, we recorded the following information about you: Dasha Toledo RN 03/14/2022 1:48 PM Signed Madelyn and her stopped in. Madelyn had her CT scan of her abdomen and pelvis completed on 03/14/2022. They reached out to her integrated campaign manager in [place] and she did not have any endoscopies with their practice. She did have an upper GI with small bowel and [facility] in 2019. She also had an EGD and colonoscopy in 2019 at [facility] by Dr. Wynn. They are leaving for [place] on 03/23/2022 and will not be home until 04/23/2022. Could you please review her CT scan and advise if there are any further tests they need to complete before the leave? MAY Vidal 03/15/2022 11:39 AM Signed Patient is wanting Dr. Callejas to reach out to her to go over CT and Xray results she had done Please call the patient at the number listed on file to review results. Patient is also scheduled for her colonoscopy 10/21/2022 due to her being in [place] From 05/07/2022 till September 2022. Patient was wanting to try to get in before she leaves in May but there is no open availability in [place] for this patient to be done but Dr. Callejas. She wishes to try to get into [facility] before then. Patient is on waitlist for [facility] in [place] if any spots was to open up before she leaves by then Please advise Aundrea Jimenez Industrial Hygienist Aundrea Jimenez 03/18/2022 11:34 AM Addendum Patient accepted sooner procedure date 05/02/[address] [place] [address] Bisi Callejas please change orders to [place] so I may add to schedule Thank you Aundrea Jimenez Industrial Hygienist Please send prep [place] to [facility] in [place] on [address] Allergies As of Date: 03/14/2022 Noted Allergy Reaction VIOXX (ROFECOXIB) 03/05/2005 7 - Swelling NSAIDS (NON-STEROIDAL ANTI-INFLAM*02/11/2019 14 - Other: See Comments Comments: Gastric bypass Date Reviewed: 03/11/2022 Reviewed by: Marcela Esquivel, RT(R) - Fully Assessed Reason for Visit: Patient Question [1477] 05/02/2022 COLON/EGD LODI [Other] Prescriptions as of 05/02/2022 - acetaminophen (TYLENOL) 500 mg tablet Take by mouth. - amoxicillin (AMOXIL) 875 mg tablet Take by mouth q 12 HR. - azelastine (ASTELIN, ASTEPRO) 0.1% nasal spray Use in the nose q 12 HR. - azelastine (ASTELIN, ASTEPRO) 0.1% nasal spray USE 2 (TWO) SPRAY TWICE DAILY TO PREVENT AND TREAT ALLERGY RHINITS (ANTIHISTAMINE) - azithromycin (ZITHROMAX) 250 mg tablet Take by mouth. - Bacillus subtilis-inulin 1.5 billion cell-1 gram chew Take by mouth. - BENZONATATE ORAL Zonatuss takes 2-3 Not-Taking - ONETOUCH ULTRA TEST test strip once daily. - chlorpheniramine (CHLORTRIMETON) 4 mg tablet Take by mouth. - FLOWFLEX COVID-19 AG HOME TEST kit as directed. - Cranberry 500 mg cap Take by mouth. - diclofenac (VOLTAREN) 1 % topical gel Diclofenac Sodium 1 % External Gel Quantity: 100 Refills: 0 Ordered: 26-Jun-2019 DO Start : 15-Jun-2019 Active - empagliflozin (JARDIANCE) 10 mg tablet Take by mouth. - fexofenadine (ZAINAB) 60 mg tablet Take by mouth q 12 HR. - finerenone (KERENDIA) 10 mg tablet Take by mouth. - fluticasone (FLONASE) 50 mcg/actuation nasal spray Use in the nose q 24 HR. - Cxiwinsfw-Gwpkrccwtoqdcj-O apple 3-2.5 % (7 gram) kit by RECTAL route. - Ipratropium Anthon (ATROVENT) 21 mcg (0.03 %) nasal spray Use in the nose. - ONE TOUCH DELICA 33 gauge USE ONCE A DAY DIRECTED - L. acidophilus/Bifid. animalis 32 billion cell cap Take by mouth. - magnesium gluconate (MAGONATE) 27 mg (500 mg) tab Take 500 mg by mouth. - Milk Thistle 150 mg cap Take 140 mg by mouth. - montelukast (SINGULAIR) 10 mg tablet Take by mouth. - GAVILYTE-G 236-22.74-6.74 -5.86 gram suspension PLEASE SEE ATTACHED FOR DETAILED DIRECTIONS - Polypodium Leucotomos Extract 240 mg cap Take 1 capsule by mouth q 24 HR. - Psyllium Husk-Sucrose 3.4 gram/7 gram powd Take by mouth. - rifAXIMin (XIFAXAN) 550 mg tablet Take 550 mg by mouth. - WHEAT DEXTRIN ORAL Take by mouth. - colestipol (COLESTID) 1 gram tablet Take 1 g by mouth twice daily. - FARXIGA 5 mg tablet Take 5 mg by mouth once daily. - donepezil (ARICEPT) 10 mg tablet 10 MG ORALLY DAILY BEGIN AFTER COMPLETING ONE MONTH OF TREATMENT OF DONEPEZIL 5MG NIGHTLY - ferrous sulfate 325 mg (65 mg iron) tablet Take 1 tablet by mouth once daily. - melatonin 3 mg tablet Take 6 mg by mouth once daily. - milk thist seed ext/milk thist (MILK THISTLE EXTRACT ORAL) Take by mouth once daily. - famotidine (PEPCID) 20 mg tablet Take 20 mg by mouth twice daily. - potassium citrate ER (UROCIT-K) 10 mEq (1,080 mg) Take by mouth once daily. Take two by mouth daily - ascorb (more content not included)... Normal [facility] Basophil percentageon 2021 Bilirubin [Mass/Vol] 0.40 mg/dL 0.20-1.00 [facility] Work Phone: Comment on above: For patients on eltr ombopag therapy, use of Dimension Van Horne TBIL is not recommended. Chloride [Moles/Vol] 99 mmol/L 98-107 [facility] Work Phone: Glucose [Mass/Vol] 254 mg/dL 74-106 [facility] Work Phone: Comment on above: Glucose result great er than or equal to 200 mg/dLsuggests DIABETES MELLITUS per A.D.A. criteria. Potassium [Moles/Vol] 4.0 mmol/L 3.5-5.1 [facility] Work Phone: Protein [Mass/Vol] 6.9 g/dL 6.4-8.2 [facility] Work Phone: Sodium [Moles/Vol] 135 mmol/L 136-145 [facility] Work Phone: CREATININE BLDon 03-12-2022 Creatinine [Mass/Vol] 0.74 mg/dL Normal 0.58-0.96 [facility] Comment on above: Order Comment: Speci men Type: BLOOD SPECIMENOrdering Facility: [facility] Address: [address] [place] [address] Performed By: #### C RET1 ####[facility] [id number] [address] OF ANT ESTIMATED GLOMERULAR FILTRATION RATE 84 mL/min/1.73m??? Normal >=60 [facility] Comment on above: Order Comment: Speci men Type: BLOOD SPECIMENOrdering Facility: [facility] Address: [address] [place] [address] Result Comment: Sanna mated Glomerular Filtration Rate (eGFR) is calculated using the 2020 CKD-EPI creatinine equation. This equation utilizes serum creatinine, sex, and age as parameters. The creatinine assay has traceable calibration to isotope dilution-mass spectrometry. Refer to KDIGO guidelines for clinical interpretation. In patients with unstable renal function, e.g. those with acute kidney injury, the eGFR may not accurately reflect actual GFR. Performed By: #### C RET1 ####[facility] [id number] [address] ANT [address] ABD/PEL W IVCONon 022 CT ABD/PEL W IVCON * * *Final Report* * * DATE OF EXAM: Mar 12 2022 2:28PM [facility] 0530 - CT ABD/PEL W IVCON / PROCEDURE REASON: multiple diagnoses * * * * Physician Interpretation * * * * EXAMINATION: CT ABDOMEN AND PELVIS WITH IV CONTRAST CLINICAL HISTORY: Abdominal bloating with cramps TECHNIQUE: CT of the abdomen and pelvis was performed using standard technique, scanning from just above the dome of the diaphragm to the symphysis pubis. MQ: CTAP_3 Contrast: IV: 100 ml of Omnipaque 350 Oral: 50 ml of 50ML Omnipaque [address] Radiation dose: Integrated Dose-length product (DLP) for this visit = 318 mGy*cm. CT Dose Reduction Employed: Automated exposure control(AEC) and iterative recon COMPARISON: None. RESULT: Liver: No mass. Normal morphology. Biliary: No bile duct dilation. Gallbladder is absent. Spleen: No mass. No splenomegaly. Pancreas: No mass or duct dilation. Adrenals: No mass. Kidneys: The kidneys enhance symmetrically. There is no hydronephrosis. Bilateral renal cysts. GI tract: No dilation or wall thickening. Postoperative changes from gastric bypass surgery. Small sliding hiatal hernia. Lymph nodes: No abdominal or pelvic lymphadenopathy. Mesentery/Peritoneum: No ascites or mass. Retroperitoneum: No mass. Vasculature: - Abdominal aorta and iliac arteries: Atherosclerotic calcifications without aneurysm. - Celiac and SMA: Atherosclerotic calcifications at the origins. - Portal venous system (SMV, splenic vein, portal vein and branches): Patent. - Hepatic veins: Patent. Pelvis: No mass, ascites or fluid collection. The bladder has a normal appearance. Bones/Soft Tissues: Age-indeterminate mild compression deformities of T12 and L1. Degenerative disease of the lower thoracic and lumbar spine. Lower thorax: No pleural effusion or consolidation Sample Steamer (topogram) images: No additional findings. IMPRESSION: 1. No acute pathology. No mass or lymphadenopathy. 2. Small sliding hiatal hernia Center Lead Consultant: PSYCHIATRIC Transcribe Date/Time: Mar 14 2022 12:00P Dictated by : OLIVER HOLLEY MD This examination was interpreted and the report reviewed and electronically signed by: OLIVER HOLLEY MD on Mar 14 2022 12:11PM EST [id number] Normal [facility] - Chemistry and C hemistry - challengeon 03-12-2022 ALP [Catalytic activity/Vol] 57 U/L 45-117 [facility] Work Phone: ALT [Catalytic activity/Vol] 39 U/L 13-56 [facility] Work Phone: CO2 [Moles/Vol] 27.0 mmol/L 21.0-32.0 [facility] Work Phone: Globulin (S) [Mass/Vol] 3.6 g/dL 2.2-4.2 [facility] Work Phone: Urea nitrogen/Creatinine [Mass ratio] 22.8 mg/mg 10-20 [facility] Work Phone: No Panel Informationon 03-12 Estimated GFR (MDRD) Amer 69 mL/min >60 [facility] Work Phone: Comment on above: GFR Calc Estimated GFR (MDRD) Non-Af Amer 57 mL/min >60 [facility] Work Phone: Comment on above: Non- GFR Calc Serum or plasma albumin shane urement (mass/volume)on 03-12-2022 Albumin [Mass/Vol] 3.3 g/dL 3.2-5.0 [facility] Work Phone: Serum or plasma albumin/glob ulin mass ratioon 03-12-2022 Albumin/Globulin [Mass ratio] 0.9 {ratio} 0.9-2.4 [facility] Work Phone: Serum or plasma calcium shane urement (mass/volume)on 03-12-2022 Calcium [Mass/Vol] 8.7 mg/dL 8.5-10.1 [facility] Work Phone: Serum or plasma creatinine m easurement (mass/volume)on 03-12-2022 Creatinine [Mass/Vol] 1.01 mg/dL 0.55-1.02 [facility] Work Phone: Comment on above: The validity of the calculated GFR & GFRAA in patients over 70 years has not been determined. Clinical correlation is essential. Serum or plasma urea nitroge n measurement (mass/volume)on 03-12-2022 Urea nitrogen [Mass/Vol] 23 mg/dL 7-18 [facility] Work Phone: Thin prep Papanicolaou smear with manual screeningon 03-12-2022 Thin prep Papanicolaou smear with manual screening 20 U/L 15-37 [facility] Work Phone: Thin prep Papanicolaou smear with manual screening 9 5-15 [facility] Work Phone: Whole blood hemoglobin A1c/t otal hemoglobin ratio (mass fraction)on 03-12-2022 HbA1c (Bld) [Mass fraction] 6.6 % 3.8-5.6 [facility] Work Phone: Comment on above: Normal < 5.7 % Predi abetic 5.7 - 6.4 % Diabetic >or= 6.5 % Please note range changes. 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 I advised her that it would best to repeat her colonoscopy at this time given her new symptoms and perhaps perform an EGD. She did inform me that these are already scheduled with Dr. Alexandre. I will see her back in early May to see how she is doing. Chief Complaint FUV in office today for SIBO. Patient is still having several BM daily every morning starting as formed and then will change to soft pudding like BM. Last time taking Xifaxan was December 24-January 08. Patient states that the Xifaxan did not help enough to continue to pay high prices for it. History of Present IllnessEileen is a pleasant 76-year-old female has been a rather difficult therapeutic challenge at times. She has underlying IBS has been treated for multiple occasions with SIBO. Breath testing performed 1 year ago was positive she was treated at that time with Xifaxan with improvement. Prior treatment with low-dose Flagyl was discontinued when she had a psychotic break while taking long-term steroids for arthritis. She was actually hospitalized at [facility] in [place] and is now recovered. She does have mild early dementia which is controlled with Aricept. She is accompanied by her today. She is currently being evaluated by Dr. Alexandre at [facility] for possible takedown of her bariatric surgery because of persistent abdominal discomfort. Presently she is having several loose stools every morning. She starts with a somewhat formed stool then progresses to diarrhea over 2 hours. She states is becoming difficult for her to leave the house before noon because she has unpredictable bowel movements. After she empties her bowel out in the morning she is rather stable throughout the rest of the afternoon. She denies any rectal bleeding. Patient underwent repair of rectocele and cystocele 2 years ago prior to surgery sigmoidoscopy was performed in March 2020 for rectal bleeding and found to have internal hemorrhoids. Review of Systems Constitutional: no fever, no chills, not feeling tired and no recent weight loss. ENT: no lymphadenopathy. Cardiovascular: no shortness of breath and no chest pain. Respiratory: no cough. Gastrointestinal: as noted in HPI. Musculoskeletal: no joint swelling. Integumentary: no rashes, no skin lesions and was no jaundiced. All other systems have been reviewed and are negative for complaint. 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) (K63.89) Steatorrhea (579.8) (K90.9) Urinary incontinence (788.30) (R32) Surgical History Problems History of Bariatric surgery History of Cholecystectomy History of Colonoscopy History of Elbow fracture repair History of Esophagogastroduodenoscopy History of Hysterectomy History of Knee replacement Family History Mother No pertinent family history Father No pertinent family history Social History Problems Denies alcohol consumption (V49.89) (Z78.9) Never a smoker No caffeine use No illicit drug use Patient has living will (V49.89) (Z78.9) Allergies Medication NSAIDs Recorded By: Jane Lobo; 03/15/2020 3:28:11 PM Current Meds Medication NameInstruction Acidophilus Probiotic Blend Oral Capsule amLODIPine Besylate 2.5 MG Oral Tablet Azithromycin 250 MG Oral Tablet Citrucel TABS Colestipol HCl - 1 GM Oral TabletTake 1 tablet twice a day Coreg 6.25 MG Oral Tablet Cranberry CAPS [employer] Natural Fiber Supplement 58.6 % PACKTAKE 1 PACKET BY MOUTH ONCE DAILY. Diclofenac Sodium 1 % External Gel Docusate Sodium 100 MG Oral CapsuleTAKE 1 CAPSULE BY MOUTH TWICE DAILY NEEDED FOR CONSTIPATION. Donepezil HCl - 10 MG Oral Tablet Famotidine 10 MG/ML SOLN Farxiga 5 MG Oral Tablet Ferrous Sulfate 325 (65 Fe) MG Oral TabletTAKE 1 TABLET BY MOUTH EVERY DAY Furosemide 20 MG Oral Tablet Ipratropium Anthon 0.03 % Nasal Solution Jardiance 10 MG Oral Tablet Kerendia 10 MG Oral Tablet Lasix TABS Lidocaine-Hydrocortisone Bairon 3-2.5 % Rectal KitUSE DIRECTED. Losartan Potassium 50 MG Oral Tablet Magnesium Oxide 400 MG Oral TabletTAKE 1 TABLET BY MOUTH TWICE A DA (more content not included)... Normal [employer] [facility] 02-28-2022 [facility] Office Visit (SWS ) -- MADELYN LOVE ([id number]) 1945 F Date Time Provider Department 02/28/22 1:55 PM RENZO CALLEJASS During your visit today, we recorded the following information about you: Temperature Pulse Respiration Blood pressure 97.6 degrees 84/minute 14/minute 168/60 Weight Height 63 kg 1.461 m Marcela Humberto HERNANDEZ 03/14/2022 6:17 AM Signed REVIEW OF SYSTEMS: General: The patient denies fatigue, denies weight loss, denies weight gain, denies feeling hot, and denies feelings of cold. Eyes: The patient denies glaucoma, denies eye injury/surgery, wears glasses. Ear/Nose/Throat: The patient denies allergies, denies hayfever, denies ear infections, and denies bloody noses. Cardiovascular: The patient denies chest pain, denies heart disease, denies high blood pressure,denies cardiac stent, denies prior heart attack, denies irregular heart beat, denies high cholesterol, denies poor circulation, denies heart failure, other cardiac issues, denies claudication, denies cold feet, denies peripheral arterial stent. Respiratory: The patient denies tuberculosis, denies pneumonia, denies frequent cough, denies pulmonary embolism, denies shortness of breath, and denies coughing up blood. Gastrointestinal: The patient denies difficulty swallowing, notes acid reflux, denies ulcers, denies vomiting, denies jaundice/hepatitis, denies gallbladder problems, denies black or tarry stools, denies hemorrhoids, denies bleeding from rectum, notes diverticulitis, denies constipation, notes diarrhea, notes loss of stool control, and notes hernias. Kidney/Bladder: The patient denies kidney stones, denies urine infections, and denies bloody urine. Skin: The patient notes a history of skin cancer, denies bleeding/changing moles, and denies a history of skin rash. Neurologic: The patient denies a history of epilepsy/convulsions, denies headaches, denies head/spinal injuries, and denies stroke/TIA. Psychiatric: The patient denies psychiatric medications, denies depression, and denies voices, denies substance abuse. Endocrine: The patient denies thyroid disorders, notes diabetes, and denies hormonal problems. Hematologic: The patient notes a history of bruising, denies bleeding, and notes anemia, denies blood clots. Infections: The patient denies a history of measles and mumps, denies rheumatic fever, and denies sexually transmitted diseases. Musculoskeletal: The patient denies back pain/injury, notes back problems, denies sciatica, denies knee/foot trouble, notes arthritis, or notes gout. When was patient's last Mammogram screening? Unknown Last Colonoscopy: Unknown Marcela Callejas MD 03/19/2022 6:38 AM Addendum HISTORY AND PHYSICAL Madelyn Love 1945 REFERRING PHYSICIAN: Hugo Julio MD CHIEF COMPLAINT: Consult HPI: The patient is a 76 year old female with a complaint of abdominal cramping and morning diarrheal stools. The patient notes a progressive worsening of diarrhea and lower abdominal complaints for the past 2 years. She is now at the point where when she wakes up she has multiple loose stools each morning usually starting with a somewhat formed stool but then progressing to looser stools diarrhea for 2 hours. She states that it now becomes difficult to leave her house most mornings because of the unpredictability of her bowel activity. She states this does not seem to relate to what ever food she eats in the morning. She also notes that she can eat lunch and dinner without having recurrence of the symptoms. She denies nausea or vomiting. she does note acid reflux. She notes degree of loss of stool control in the mornings. She notes no melena or blood in her stools. She denies weight loss. She had undergone a Shani-en-Y gastric bypass and prior cholecystectomy. She also underwent repair of rectocele and cystocele 2 years previously. She saw her surgeon that performed her Shani-en-Y gastric bypass-Dr. Carlos Granados. He most recently saw the patient on January 24, 2022. His diagnosis was malabsorption. He recommended following up with colorectal surgery for her complaint of loose stools and incontinence. She has been followed by gastroenterology-Dr. Marilia Cheung at [facility]. She was last seen by him on March 04, 2022. Patient has been receiving treatment at that location for possible small intestinal bacterial overgrowth. She was given rifaximin from like to January 08. She did not note enough of a change in her symptoms to continue paying for that medication. They had performed a breath test 1 year previously which was felt to be positive for SIBO. She was treated with rifaximin at that time with some improvement. Previously she had been given Flagyl which was discontinued at states when she had a psyc (more content not included)... Normal [facility]-28-2022 [facility] Telephone ([employer]) -- MADELYN LOVE ([id number]) 1945 F Date Time Provider Department 02/28/22 RENZO CALLEJAS During your visit today, we recorded the following information about you: Leyda Griffith LPN 02/28/2022 4:39 PM Signed Requested medical records for [facility] physician group operative notes Jessica Pascal RN 02/28/2022 4:48 PM Signed Medical records requested from Dr. Marilia Stubbs [facility] Ph. [phone] Fax. [phone] Elissa Klein Ma 03/04/2022 3:45 PM Signed Patient called in stating she had an appointment with Dr. Stubbs today and was told they would be faxing records over to office. Allergies As of Date: 02/28/2022 Noted Allergy Reaction VIOXX (ROFECOXIB) 03/05/2005 7 - Swelling NSAIDS (NON-STEROIDAL ANTI-INFLAM*02/11/2019 14 - Other: See Comments Comments: Gastric bypass Date Reviewed: 02/28/2022 Reviewed by: Renzo Callejas MD - Fully Assessed Reason for Visit: Patient Update [1234] Cmt: Requesting medical records Prescriptions as of 04/09/2022 - colestipol (COLESTID) 1 gram tablet Take 1 g by mouth twice daily. - FARXIGA 5 mg tablet Take 5 mg by mouth once daily. - donepezil (ARICEPT) 10 mg tablet 10 MG ORALLY DAILY BEGIN AFTER COMPLETING ONE MONTH OF TREATMENT OF DONEPEZIL 5MG NIGHTLY - ferrous sulfate 325 mg (65 mg iron) tablet Take 1 tablet by mouth once daily. - melatonin 3 mg tablet Take 6 mg by mouth once daily. - milk thist seed ext/milk thist (MILK THISTLE EXTRACT ORAL) Take by mouth once daily. - famotidine (PEPCID) 20 mg tablet Take 20 mg by mouth twice daily. - potassium citrate ER (UROCIT-K) 10 mEq (1,080 mg) Take by mouth once daily. Take two by mouth daily - ascorbic acid, vitamin C, (VITAMIN C WITH PETRA HIPS) 500 mg tablet Take 250 mg by mouth twice daily. 1/2 tablet - calcium citrate (CITRACAL ORAL) Take by mouth three times daily. Two tablets - MYRBETRIQ 25 mg Tb24 TAKE 1 TABLET BY MOUTH TWICE A DAY - traMADol (ULTRAM) 50 mg tablet TAKE 1 TABLET BY MOUTH 2 3 TIMES PER DAY NEEDED FOR PAIN - calcium carb/magnesium hydrox (ROLAIDS ORAL) Take by mouth. - simethicone (GAS-X ORAL) Take by mouth. 2 TABS EVERY AFTER MEAL AND HS NEEDED - calcium citrate/vitamin D3 (CALCIUM CITRATE + D ORAL) Take by mouth once daily. - Lactobac no.41/Bifidobact no.7 (PROBIOTIC-10 ORAL) Take by mouth once daily. - uhrfes-txpnnwhc-xiipjan (CREON 36) 36,000-114,000- 180,000 unit capsule Take 2 capsules by mouth three times daily with meals. Take 2 caps 3 times daily with meals;1 cap with each snack. - pantoprazole DR (PROTONIX) 40 mg tablet Take 1 tablet by mouth once daily. - carvedilol (COREG) 6.25 mg tablet twice daily with meals. - estradiol (ESTRACE) 0.01 % (0.1 mg/gram) vaginal cream Estradiol ESTRACE CREA As needed as directed [id number] Ami Rios 01-25-2019 [facility] ([id number]) - amLODIPine (NORVASC) 2.5 mg tablet Take 2.5 mg by mouth once daily. Takes 5 MG - BENEFIBER, GUAR GUM, ORAL Take by mouth once daily. - cyanocobalamin (VITAMIN B-12) 1,000 mcg tab Take 1,000 mcg by mouth once daily. - pregabalin (LYRICA) 25 mg capsule Take 25 mg by mouth once daily. - B infantis/B ani/B maximino/B bifid (PROBIOTIC 4X ORAL) Take by mouth once daily. - cranberry fruit extract (CRANBERRY CONCENTRATE ORAL) Take by mouth once daily. - losartan potassium (LOSARTAN ORAL) Take 50 mg by mouth once daily. 100 MG - furosemide (LASIX) 40 mg tablet Take 1 tablet by mouth once each week. - potassium chloride ER (K-DUR, KLOR-CON) 20 mEq tablet Take 1 tablet by mouth twice daily. - calcium carbonate-Vit D3-minerals (CALTRATE PLUS) 600 mg calcium- 400 unit tab Take 2 tablets by mouth three times daily. - magnesium oxide 400 mg tablet Take 1 tablet by mouth twice daily. - multivitamins w-minerals/lut(CENTRUM SILVER TAB) Take one(1) tablet daily. Meds Comments as of 11/24/2019: PATIENT ON HER WAY TO 'S OFFICE, UNABLE TO REVIEW MEDS. WILL BRING COPY FOR REVIEW DAY OF PST Problem List As Of Date 02/28/2022 Noted Resolved DIABETES MELLITUS TYPE II-UNCOMPL [E11.9] 11/30/1998 BENIGN HYPERTENSION [I10] ALLERGIC RHINITIS NOS [J30.9] OSTEOARTHROS NOS-UNSPEC [M19.90] VENOUS INSUFFICIENCY NOS [I87.2] 03/06/2005 ESOPHAGEAL REFLUX [K21.9] 05/07/2006 DIFFUS CYSTIC MASTOPATHY [N60.19] 05/07/2006 OTHER LUNG DISEASE NEC [J98.4] 09/24/2007 Gastroparesis [K31.84] RP (rectal prolapse) [K62.3] 12/02/2019 Midline cystocele [N81.11] 01/21/2020 Urgency of urination [R39.15] 01/21/2020 Urge incontinence [N39.41] 01/21/2020 Encounter Status:Closed by LEYDA GRIFFITH on 04/09/22 Normal [facility] XR ABDOMEN 1V SUPINEon 02-28 XR ABDOMEN 1V SUPINE * * *Final Report* * * DATE OF EXAM: Feb 28 2022 3:49PM [id number] - XR ABDOMEN 1V SUPINE / PROCEDURE REASON: multiple diagnoses * * * * Physician Interpretation * * * * Indication: Abdominal bloating with cramps Comparison: None 2 x-rays of the abdomen are obtained. There is a non-obstructed bowel gas pattern. There is no hepatomegaly or splenomegaly. No abnormal calcifications are visualized. There are no acute osseous abnormalities. Vascular calcifications are noted. There are multiple surgical clips in the upper abdomen. A spinal stimulator device projects over the left lower quadrant. A lead extends superiorly with the tip at the level of T10. IMPRESSION: NO ACUTE ABDOMINAL PATHOLOGY VISUALIZED Center Lead Consultant: ALESHA Transcribe Date/Time: Mar 01 2022 11:21A Dictated by : OLIVER HOLLEY MD This examination was interpreted and the report reviewed and electronically signed by: OLIVER HOLLEY MD on Mar 01 2022 11:23AM EST [id number] Normal [facility] Absolute lymphocyte counton 01-16-2022 Lymphocytes Auto (Unsp spec) [#/Vol] 1.54 10*3/uL 0.83-4.51 [facility] Work Phone: Basophil percentageon 2021 Basophils/100 WBC (Bld) 0.5 % 0-1 [facility] Work Phone: Bilirubin [Mass/Vol] 0.40 mg/dL 0.20-1.00 [facility] Work Phone: Comment on above: For patients on eltr ombopag therapy, use of Dimension Van Horne TBIL is not recommended. Chloride [Moles/Vol] 103 mmol/L 98-107 [facility] Work Phone: Eosinophils/100 WBC (Bld) 0.9 % 0-5 [facility] Work Phone: Glucose [Mass/Vol] 136 mg/dL 74-106 [facility] Work Phone: Comment on above: Fasting Glucose resu lt greater than or equal to 126 mg/dL suggests DIABETES MELLITUS per A.D.A. criteria. Neutrophils (Bld) [#/Vol] 3.5 10*3/uL 2.0-7.7 [facility] Work Phone: Neutrophils/100 WBC (Bld) 62.6 % 47-70 [facility] Work Phone: Potassium [Moles/Vol] 3.7 mmol/L 3.5-5.1 [facility] Work Phone: Protein [Mass/Vol] 6.2 g/dL 6.4-8.2 [facility] Work Phone: Sodium [Moles/Vol] 139 mmol/L 136-145 [facility] Work Phone: WBC (Bld) [#/Vol] 5.5 10*3/uL 4.4-11.0 [facility] Work Phone: Blood erythrocytes count (nu mber/volume)on 01-16-2022 RBC (Bld) [#/Vol] 3.73 10*6/uL 4.2-5.4 [facility] Work Phone: Blood hemoglobin measurement (mass/volume)on 01-16-2022 Hemoglobin (Bld) [Mass/Vol] 11.5 g/dL 12.0-15.0 [facility] Work Phone: Blood lymphocytes/100 leukoc yteson 01-16-2022 Lymphocytes/100 WBC (Bld) 27.8 % 19-41 [facility] [facility] Work Phone: Blood monocytes/100 leukocyt eson 01-16-2022 Monocytes/100 WBC (Bld) 7.8 % 0-10 [facility] Work Phone: Blood platelet mean volumeon 01-16-2022 Platelet mean volume (Bld) [Entitic vol] 9.7 fL 6.2-12.0 [facility] Work Phone: Determination of erythrocyte mean corpuscular volume (MCV)on 01-16-2022 MCV (RBC) [Entitic vol] 95.4 fL 81-99 [facility] Work Phone: Hematocrit Auto (Bld) [Volum e fraction]on 01-16-2022 Hematocrit (Bld) [Volume fraction] 35.6 % 37-47 [facility] Work Phone: Iron measurement (mass/mass) on 01-16-2022 Iron (Unsp spec) [Mass/Mass] 83 ug/dL 50-170 [facility] Work Phone: Laboratory - Chemistry and C hemistry - challengeon 01-16-2022 ALP [Catalytic activity/Vol] 53 U/L 45-117 [facility] Work Phone: ALT [Catalytic activity/Vol] 29 U/L 13-56 [facility] Work Phone: CO2 [Moles/Vol] 29.0 mmol/L 21.0-32.0 [facility] Work Phone: Globulin (S) [Mass/Vol] 3.0 g/dL 2.2-4.2 [facility] Work Phone: Urea nitrogen/Creatinine [Mass ratio] 18.6 mg/mg 10-20 [facility] Work Phone: Laboratory - Hematology and Cell countson 01-16-2022 Erythrocyte distribution width (RBC) [Entitic vol] 53.6 fL 35.1-43.9 [facility] Work Phone: Erythrocyte distribution width (RBC) [Ratio] 15.3 % 11.6-14.6 [facility] Work Phone: Immature granulocytes/100 WBC (Bld) 0.400 % 0.0-0.9 [facility] Work Phone: Comment on above: IG% - Immature Granu locytes (promyelocytes, myelocytes and metamyelocytes) > 1% indicates that a LEFT SHIFT is Present. MCH (RBC) [Entitic mass] 30.8 pg 27.0-32.0 [facility] Work Phone: Nucleated RBC/100 WBC (Bld) [Ratio] 0 % 0-5 [facility] Work Phone: MCHC Auto (RBC) [Mass/Vol]on 01-16-2022 MCHC (RBC) [Mass/Vol] 32.3 g/dL 32-36 [facility] No Panel Informationon 01-16 Estimated GFR (MDRD) Amer 105 mL/min >60 [facility] Work Phone: Comment on above: GFR Calc Estimated GFR (MDRD) Non-Af Amer 87 mL/min >60 [facility] Work Phone: Comment on above: Non- GFR Calc Parathyroid Hormone (Intact) 54.8 pg/mL 18.4-80.1 [facility] Work Phone: Total Iron Binding Capacity 354 ug/dL 250-450 [facility] Work Phone: Vitamin B12 Level > 2000 pg/mL 211-911 [facility] Work Phone: Vitamin D 25-Hydroxy 59.8 ng/mL [facility] Work Phone: Comment on above: Vitamin D 25(OH) Sta tus Range Deficiency <20 ng/mL (50nmol/L) Insufficiency 20 - 30 ng/mL (50 - 75 nmol/L) Sufficiency 30 - 100 ng/mL (75 - 250 nmol/L) Toxicity >100 ng/mL (>250 nmol/L) Whole Blood Vitamin B1 Level 147.5 nmol/L 66.5-200.0 [facility] Work Phone: Platelets bldon 01-16-2022 Platelets (Bld) [#/Vol] 282 10*3/uL 150-450 [facility] Work Phone: Serum or plasma albumin shane urement (mass/volume)on 01-16-2022 Albumin [Mass/Vol] 3.2 g/dL 3.2-5.0 [facility] Work Phone: Serum or plasma albumin/glob ulin mass ratioon 01-16-2022 Albumin/Globulin [Mass ratio] 1.1 {ratio} 0.9-2.4 [facility] Work Phone: Serum or plasma calcium shane urement (mass/volume)on 01-16-2022 Calcium [Mass/Vol] 8.4 mg/dL 8.5-10.1 [facility] Work Phone: Serum or plasma creatinine m easurement (mass/volume)on 01-16-2022 Creatinine [Mass/Vol] 0.70 mg/dL 0.55-1.02 [facility] Work Phone: Comment on above: The validity of the calculated GFR & GFRAA in patients over 70 years has not been determined. Clinical correlation is essential. Serum or plasma ferritin agustin surement (mass/volume)on 01-16-2022 Ferritin [Mass/Vol] 42 ng/mL 8-252 [facility] Work Phone: Serum or plasma folate measu rement (mass/volume)on 01-16-2022 Folate [Mass/Vol] 23.20 ng/mL 3.1-55.4 [facility] Work Phone: Serum or plasma iron saturat ion measurement (mass fraction)on 01-16-2022 Iron saturation [Mass fraction] 23.4 % 15.0-55.0 [facility] Work Phone: Serum or plasma urea nitroge n measurement (mass/volume)on 01-16-2022 Urea nitrogen [Mass/Vol] 13 mg/dL 7-18 [facility] Work Phone: Thin prep Papanicolaou smear with manual screeningon 01-16-2022 Thin prep Papanicolaou smear with manual screening 16 U/L 15-37 [facility] Work Phone: Thin prep Papanicolaou smear with manual screening 7 5-15 [facility] Work Phone: Thin prep Papanicolaou smear with manual screening 96 ug/dL 80-158 [facility] Work Phone: Comment on above: Detection Limit = 5P erformed at: BN - [facility] [id number] [place], [place] [id number] Director: Joan Ye MD, Phone: [phone] Whole blood hemoglobin A1c/t otal hemoglobin ratio (mass fraction)on 01-16-2022 HbA1c (Bld) [Mass fraction] 6.8 % 3.8-5.6 [facility] Work Phone: Comment on above: Normal < 5.7 % Predi abetic 5.7 - 6.4 % Diabetic >or= 6.5 % Please note range changes. 24 hour urine alpha 2 globul in/total protein ratio by electrophoresis (mass fraction)on 01-04-2022 Alpha 2 globulin Elph (24H U) [Mass fraction] 5.5 % . [facility] Work Phone: 24 hour urine beta globulin/ total protein ratio by electrophoresis (mass fraction)on 01-04-2022 Beta globulin Elph (24H U) [Mass fraction] 11.2 % . [facility] Work Phone: 24 hour urine gamma globulin /total protein ratio by electrophoresis (mass fraction)on 01-04-2022 Gamma globulin Elph (24H U) [Mass fraction] 3.8 % . [facility] Work Phone: Laboratory - Chemistry and C hemistry - challengeon 01-04-2022 Albumin [Mass/Vol] 3.4 g/dL 2.9-4.4 [facility] Work [place]: Magnesium [Mass/Vol] 2.4 mg/dL 1.6-2.[address] [facility] Work Phone: No Panel Informationon 01-04 Addendum Document Comment . [facility] Work Phone: Comment on above: The SPE pattern appe ars unremarkable. Evidence ofmonoclonal protein is not apparent. [id number] 0.2 g/dL 0.0-0.4 [facility] Work Phone: Ggcql-6-Lpzhsybhf 1.0 g/dL 0.4-1.0 [facility] Work Phone: Gamma Globulins 0.7 g/dL 0.4-1.8 [facility] Work Phone: Urine Microalbumin/Creatinine Ratio 773.6 mg/g CRE <30 [facility] Work Phone: Protein Fractions Elph [Inte rp]on 01-04-2022 Protein Fractions [Interp] Comment . [facility] Work Phone: Comment on above: Protein electrophore sis scan will follow via computer,mail, or visual design lead delivery. Serum albumin to globulin ra jazlyn by protein electrophoresison 01-04-2022 Albumin/Globulin Elph [Mass ratio] 1.1 0.7-1.7 [facility] Work Phone: Serum globulin measurement ( mass/volume)on 01-04-2022 Globulin (S) [Mass/Vol] 3.0 g/dL 2.2-3.9 [facility] Work Phone: Serum or plasma beta globuli n measurement by electrophoresis (mass/volume)on 01-04-2022 Beta globulin Elph [Mass/Vol] 1.0 g/dL 0.7-1.3 [facility] Work Phone: Thin prep Papanicolaou smear with manual screeningon 01-04-2022 Thin prep Papanicolaou smear with manual screening 229.0 mg/L NO RANGE EST. [facility] Work Phone: Thin prep Papanicolaou smear with manual screening See comment [facility] Work Phone: Comment on above: Result: Not Observed Total protein bloodon 2021 Protein [Mass/Vol] 6.4 g/dL 6.0-8.5 [facility] Work Phone: Urine albumin/total protein mass ratio by electrophoresison 01-04-2022 Albumin Elph (U) [Mass fraction] 74.2 % . [facility] Work Phone: Urine alpha 1 globulin/total protein ratio by electrophoresis (mass fraction)on 01-04-2022 Alpha 1 globulin Elph (U) [Mass fraction] 5.2 % . [facility] Work Phone: Urine creatinine measurement (mass/volume)on 01-04-2022 Creatinine (U) [Mass/Vol] 29.60 mg/dL NO RANGE EST. [facility] Work Phone: Urine monoclonal protein/tot al protein mass ratio by electrophoresison 01-04-2022 Protein.monoclonal Elph (U) [Mass fraction] See comment [facility] Work Phone: Comment on above: RESULT: NOT OBSERVED Urine protein measurement (m ass/volume)on 01-04-2022 Protein (U) [Mass/Vol] 28.5 mg/dL Not Estab. [facility] Work Phone: Basophil percentageon 2021 Bilirubin [Mass/Vol] 0.40 mg/dL 0.20-1.00 [facility] Work Phone: Comment on above: For patients on eltr ombopag therapy, use of Dimension [place] TBIL is not recommended. Chloride [Moles/Vol] 96 mmol/L 98-107 [facility] Work Phone: Glucose [Mass/Vol] 186 mg/dL 74-106 [facility] Work Phone: Comment on above: Fasting Glucose resu lt greater than or equal to 126 mg/dL suggests DIABETES MELLITUS per A.D.A. criteria. Potassium [Moles/Vol] 3.3 mmol/L 3.5-5.1 [facility] Work Phone: Protein [Mass/Vol] 6.7 g/dL 6.4-8.2 [facility] Work Phone: Sodium [Moles/Vol] 133 mmol/L 136-145 [facility] Work Phone: Laboratory - Chemistry and C hemistry - challengeon 01-02-2022 ALP [Catalytic activity/Vol] 65 U/L 45-117 [facility] Work Phone: ALT [Catalytic activity/Vol] 43 U/L 13-56 [facility] Work Phone: CO2 [Moles/Vol] 30.0 mmol/L 21.0-32.0 [facility] Work Phone: Globulin (S) [Mass/Vol] 3.3 g/dL 2.2-4.2 [facility] Work Phone: Urea nitrogen/Creatinine [Mass ratio] 19.7 mg/mg 10-20 [facility] Work Phone: No Panel Informationon 01-02 Estimated GFR (MDRD) Amer 88 mL/min >60 [facility] Work Phone: Comment on above: GFR Calc Estimated GFR (MDRD) Non-Af Amer 73 mL/min >60 [facility] Work Phone: Comment on above: Non- GFR Calc Urine Microalbumin/Creatinine Ratio 1046.7 mg/g CRE <30 [facility] Work Phone: Serum or plasma albumin shane urement (mass/volume)on 01-02-2022 Albumin [Mass/Vol] 3.4 g/dL 3.2-5.0 [facility] Work Phone: Serum or plasma albumin/glob ulin mass ratioon 01-02-2022 Albumin/Globulin [Mass ratio] 1.0 {ratio} 0.9-2.4 [facility] Work Phone: Serum or plasma calcium shane urement (mass/volume)on 01-02-2022 Calcium [Mass/Vol] 8.5 mg/dL 8.5-10.1 [facility] Work Phone: Serum or plasma creatinine m easurement (mass/volume)on 01-02-2022 Creatinine [Mass/Vol] 0.81 mg/dL 0.55-1.02 [facility] Work Phone: Comment on above: The validity of the calculated GFR & GFRAA in patients over 70 years has not been determined. Clinical correlation is essential. Serum or plasma urea nitroge n measurement (mass/volume)on 01-02-2022 Urea nitrogen [Mass/Vol] 16 mg/dL 7-18 [facility] Work Phone: Thin prep Papanicolaou smear with manual screeningon 01-02-2022 Thin prep Papanicolaou smear with manual screening 24 U/L 15-37 [facility] Work Phone: Thin prep Papanicolaou smear with manual screening 7 5-15 [facility] Work Phone: Thin prep Papanicolaou smear with manual screening 224.0 mg/L NO RANGE EST. [facility] Work Phone: Urine creatinine measurement (mass/volume)on 01-02-2022 Creatinine (U) [Mass/Vol] 21.40 mg/dL NO RANGE EST. [facility] Work Phone: Whole blood hemoglobin A1c/t otal hemoglobin ratio (mass fraction)on 01-02-2022 HbA1c (Bld) [Mass fraction] 6.9 % 3.8-5.6 [facility] Work Phone: Comment on above: Normal < 5.7 % Predi abetic 5.7 - 6.4 % Diabetic >or= 6.5 % Please note range changes. Absolute lymphocyte counton 12-25-2021 Lymphocytes Auto (Unsp spec) [#/Vol] 1.60 10*3/uL 0.83-4.51 [facility] Work Phone: Basophil percentageon 2021 Basophil percentage >100 SEEN /hpf 0-5 [facility] Work Phone: Ammonia (P) [Moles/Vol] 28.0 umol/L 11-32 [facility] Work Phone: Basophils/100 WBC (Bld) 0.3 % 0-1 [facility] Work Phone: Bilirubin [Mass/Vol] 0.30 mg/dL 0.20-1.00 [facility] Work Phone: Comment on above: For patients on eltr ombopag therapy, use of Dimension [place] TBIL is not recommended. Chloride [Moles/Vol] 97 mmol/L 98-107 [facility] Work Phone: Eosinophils/100 WBC (Bld) 1.5 % 0-5 [facility] Work Phone: Glucose [Mass/Vol] 141 mg/dL 74-106 [facility] Work Phone: Comment on above: Fasting Glucose resu lt greater than or equal to 126 mg/dL suggests DIABETES MELLITUS per A.D.A. criteria. Neutrophils (Bld) [#/Vol] 4.9 10*3/uL 2.0-7.7 [facility] Work Phone: Neutrophils/100 WBC (Bld) 67.4 % 47-70 [facility] Work Phone: Potassium [Moles/Vol] 3.9 mmol/L 3.5-5.1 [facility] Work Phone: Protein [Mass/Vol] 6.6 g/dL 6.4-8.2 [facility] Work Phone: Sodium [Moles/Vol] 130 mmol/L 136-145 [facility] Work Phone: WBC (Bld) [#/Vol] 7.3 10*3/uL 4.4-11.0 [facility] Work Phone: Bilirubin Test strip Ql (U)o n 12-25-2021 Bilirubin Ql (U) Negative Negative [facility] Work Phone: Blood erythrocytes count (nu mber/volume)on 12-25-2021 RBC (Bld) [#/Vol] 3.82 10*6/uL 4.2-5.4 [facility] Work Phone: [phone] Blood hemoglobin measurement (mass/volume)on 12-25-2021 Hemoglobin (Bld) [Mass/Vol] 11.3 g/dL 12.0-15.0 [facility] Work Phone: Blood lymphocytes/100 leukoc yteson 12-25-2021 Lymphocytes/100 WBC (Bld) 21.9 % 19-41 [facility] Work Phone: [phone] Blood monocytes/100 leukocyt eson 12-25-2021 Monocytes/100 WBC (Bld) 8.6 % 0-10 [facility] Work Phone: Blood platelet mean volumeon 12-25-2021 Platelet mean volume (Bld) [Entitic vol] 9.1 fL 6.2-12.0 [facility] Work Phone: Determination of erythrocyte mean corpuscular volume (MCV)on 12-25-2021 MCV (RBC) [Entitic vol] 93.2 fL 81-99 [facility] Work Phone: Hematocrit Auto (Bld) [Volum e fraction]on 12-25-2021 Hematocrit (Bld) [Volume fraction] 35.6 % 37-47 [facility] Work Phone: Ketones Test strip Ql (U)on 12-25-2021 Ketones Ql (U) 5 mg/dl Negative [facility] Work Phone: Laboratory - Chemistry and C hemistry - challengeon 12-25-2021 ALP [Catalytic activity/Vol] 67 U/L 45-117 [facility] Work Phone: ALT [Catalytic activity/Vol] 29 U/L 13-56 [facility] Work Phone: CO2 [Moles/Vol] 27.0 mmol/L 21.0-32.0 [facility] Work Phone: Globulin (S) [Mass/Vol] 3.4 g/dL 2.2-4.2 [facility] Work Phone: [phone] Urea nitrogen/Creatinine [Mass ratio] 24.3 mg/mg 10-20 [facility] Work Phone: Laboratory - Hematology and Cell countson 12-25-2021 Erythrocyte distribution width (RBC) [Entitic vol] 51.8 fL 35.1-43.9 [facility] Work Phone: Erythrocyte distribution width (RBC) [Ratio] 15.1 % 11.6-14.6 [facility] Work Phone: Immature granulocytes/100 WBC (Bld) 0.300 % 0.0-0.9 [facility] Work Phone: Comment on above: IG% - Immature Granu locytes (promyelocytes, myelocytes and metamyelocytes) > 1% indicates that a LEFT SHIFT is Present. MCH (RBC) [Entitic mass] 29.6 pg 27.0-32.0 [facility] Work Phone: Nucleated RBC/100 WBC (Bld) [Ratio] 0 % 0-5 [facility] Work Phone: MCHC Auto (RBC) [Mass/Vol]on 12-25-2021 MCHC (RBC) [Mass/Vol] 31.7 g/dL 32-36 [facility] [place] Work Phone: Mucus LM Ql (Urine sed)on Mucus Ql (Urine sed) 0 SEEN /hpf [facility] [place] Work Phone: Nitrite Test strip Ql (U)on 12-25-2021 Nitrite Ql (U) Negative Negative [facility] Work Phone: No Panel Informationon 12-25 Estimated GFR (MDRD) Amer 121 mL/min >60 [facility] Work Phone: Comment on above: GFR Calc Estimated GFR (MDRD) Non-Af Amer 100 mL/min >60 [facility] Work Phone: Comment on above: Non- GFR Calc Platelets bldon 12-25-2021 Platelets (Bld) [#/Vol] 261 10*3/uL 150-450 [facility] Work Phone: Protein Test strip Ql (U)on 12-25-2021 Protein Ql (U) 100 mg/dl Negative [facility] Work Phone: Serum or plasma C reactive p rotein measurement (mass/volume)on 12-25-2021 CRP [Mass/Vol] 7.55 mg/L 0.0-3.0 [facility] Work Phone: Comment on above: C-Reactive Protein ( CRP) provides useful information for thediagnosis, therapy and monitoring of inflammatory processesand associated diseases. For the evaluation of Relative Riskfor Cardiovascular Disease, a High Sensitivity CRP (HSCRP)should be ordered. Serum or plasma albumin shane urement (mass/volume)on 12-25-2021 Albumin [Mass/Vol] 3.2 g/dL 3.2-5.0 [facility] Work Phone: Serum or plasma albumin/glob ulin mass ratioon 12-25-2021 Albumin/Globulin [Mass ratio] 0.9 {ratio} 0.9-2.4 [facility] Work Phone: Serum or plasma calcium shane urement (mass/volume)on 12-25-2021 Calcium [Mass/Vol] 7.8 mg/dL 8.5-10.1 [facility] Work Phone: Serum or plasma creatinine m easurement (mass/volume)on 12-25-2021 Creatinine [Mass/Vol] 0.62 mg/dL 0.55-1.02 [facility] Work Phone: Comment on above: The validity of the calculated GFR & GFRAA in patients over 70 years has not been determined. Clinical correlation is essential. Serum or plasma urea nitroge n measurement (mass/volume)on 12-25-2021 Urea nitrogen [Mass/Vol] 15 mg/dL 7-18 [facility] Work Phone: Squamous epithelial cells de tection in urine sediment by light microscopyon 12-25-2021 Epithelial cells.squamous LM Ql (Urine sed) 10-25 SEEN /hpf 5-10 [facility] Work Phone: Thin prep Papanicolaou smear with manual screeningon 12-25-2021 Thin prep Papanicolaou smear with manual screening 20 U/L 15-37 [facility] Work Phone: Thin prep Papanicolaou smear with manual screening 6 5-15 [facility] Work Phone: Urine blood detectionon 12-01 RBC Ql (U) 50 /ul Negative [facility] Work Phone: RBC Ql (U) 5-10 SEEN /hpf 0-5 [facility] Work Phone: Urine clarityon 12-25-2021 Clarity (U) Cloudy Clear [facility] Work Phone: Urine color determinationon 12-25-2021 Color (U) Yellow Yellow [facility] Work Phone: Urine glucose detectionon Glucose Ql (U) 100 mg/dl Normal [facility] Work Phone: Urine leukocyte esterase det ection by dipstickon 12-25-2021 Leukocyte esterase Test strip Ql (U) 500 /ul Negative [facility] Work Phone: Urine pHon 12-25-2021 pH (U) 6.0 [pH] 5.0 - 8.0 [facility] Work Phone: Urine sediment bacteria coun t by microscopy (number/high power field)on 12-25-2021 Bacteria LM.HPF (Urine sed) [#/Area] 4 /[HPF] None Seen [facility] Work Phone: Urine specific gravity measu rementon 12-25-2021 Specific gravity (U) [Rel density] 1.015 1.002-1.03 0 [facility] Work Phone: Urobilinogen Auto test strip Ql (U)on 12-25-2021 Urobilinogen Ql (U) Normal mg/dl Normal [facility] [place] Work Phone: Basophil percentageon 2021 Bilirubin [Mass/Vol] 0.40 mg/dL 0.20-1.00 [facility] Work Phone: Comment on above: For patients on eltr ombopag therapy, use of Dimension Van [place] TBIL is not recommended. Chloride [Moles/Vol] 99 mmol/L 98-107 [facility] Work Phone: Glucose [Mass/Vol] 102 mg/dL 74-106 [facility] Work Phone: Comment on above: Fasting Glucose resu lt from 100 to 125 mg/dL suggests IMPAIRED HOMEOSTASIS per A.D.A. criteria. Potassium [Moles/Vol] 3.8 mmol/L 3.5-5.1 [facility] [place] Work Phone: Protein [Mass/Vol] 6.8 g/dL 6.4-8.2 [facility] Work Phone: Sodium [Moles/Vol] 133 mmol/L 136-145 [facility] Work Phone: Laboratory - Chemistry and C hemistry - challengeon 12-06-2021 ALP [Catalytic activity/Vol] 55 U/L 45-117 [facility] Work Phone: ALT [Catalytic activity/Vol] 29 U/L 13-56 [facility] Work Phone: CO2 [Moles/Vol] 28.0 mmol/L 21.0-32.0 [facility] Work Phone: Globulin (S) [Mass/Vol] 3.3 g/dL 2.2-4.2 [facility] Work Phone: Urea nitrogen/Creatinine [Mass ratio] 23.9 mg/mg 10-20 [facility] Work Phone: No Panel Informationon 12-06 Estimated GFR (MDRD) Amer 85 mL/min >60 [facility] Work Phone: Comment on above: GFR Calc Estimated GFR (MDRD) Non-Af Amer 70 mL/min >60 [facility] Work Phone: Comment on above: Non- GFR Calc Serum or plasma albumin shane urement (mass/volume)on 12-06-2021 Albumin [Mass/Vol] 3.5 g/dL 3.2-5.0 [facility] Work Phone: Serum or plasma albumin/glob ulin mass ratioon 12-06-2021 Albumin/Globulin [Mass ratio] 1.1 {ratio} 0.9-2.4 [facility] [facility] Work Phone: Serum or plasma calcium shane urement (mass/volume)on 12-06-2021 Calcium [Mass/Vol] 8.7 mg/dL 8.5-10.1 [facility] Work Phone: Serum or plasma creatinine m easurement (mass/volume)on 12-06-2021 Creatinine [Mass/Vol] 0.84 mg/dL 0.55-1.02 [facility] Work Phone: Comment on above: The validity of the calculated GFR & GFRAA in patients over 70 years has not been determined. Clinical correlation is essential. Serum or plasma transthyreti n measurement (mass/volume)on 12-06-2021 Prealbumin [Mass/Vol] 36.7 mg/dL 20.0-40.0 [facility] [place] Work Phone: Serum or plasma urea nitroge n measurement (mass/volume)on 12-06-2021 Urea nitrogen [Mass/Vol] 20 mg/dL 7-18 [facility] Work Phone: Thin prep Papanicolaou smear with manual screeningon 12-06-2021 Thin prep Papanicolaou smear with manual screening 20 U/L 15-37 [facility] Work Phone: Thin prep Papanicolaou smear with manual screening 6 5-15 [facility] Work Phone: Absolute lymphocyte counton 10-23-2021 Lymphocytes Auto (Unsp spec) [#/Vol] 1.82 10*3/uL 0.83-4.51 [facility] Work Phone: Alternaria alternata IgE ser umon 10-23-2021 A. alternata IgE Qn (S) <0.10 kU/L Class 0 [facility] Work Phone: Basophil percentageon 2021 Basophils/100 WBC (Bld) 0.7 % 0-1 [facility] Work Phone: Bilirubin [Mass/Vol] 0.30 mg/dL 0.20-1.00 [facility] Work Phone: Comment on above: For patients on eltr ombopag therapy, use of Dimension Van Horne TBIL is not recommended. Chloride [Moles/Vol] 97 mmol/L 98-107 [facility] Work Phone: Eosinophils/100 WBC (Bld) 0.9 % 0-5 [facility] Work Phone: Glucose [Mass/Vol] 101 mg/dL 74-106 [facility] Work Phone: Comment on above: Fasting Glucose resu lt from 100 to 125 mg/dL suggests IMPAIRED HOMEOSTASIS per A.D.A. criteria. Neutrophils (Bld) [#/Vol] 4.8 10*3/uL 2.0-7.7 [facility] Work Phone: Neutrophils/100 WBC (Bld) 65.6 % 47-70 [facility] Work Phone: [phone] Potassium [Moles/Vol] 4.3 mmol/L 3.5-5.1 [facility] Work Phone: Protein [Mass/Vol] 6.7 g/dL 6.4-8.2 [facility] Work Phone: Sodium [Moles/Vol] 129 mmol/L 136-145 [facility] Work Phone: WBC (Bld) [#/Vol] 7.4 10*3/uL 4.4-11.0 [facility] Work Phone: Blood erythrocytes count (nu mber/volume)on 10-23-2021 RBC (Bld) [#/Vol] 3.77 10*6/uL 4.2-5.4 [facility] Work Phone: Blood hemoglobin measurement (mass/volume)on 10-23-2021 Hemoglobin (Bld) [Mass/Vol] 10.7 g/dL 12.0-15.0 [facility] Work Phone: Blood lymphocytes/100 leukoc yteson 10-23-2021 Lymphocytes/100 WBC (Bld) 24.6 % 19-41 [facility] Work Phone: Blood monocytes/100 leukocyt eson 10-23-2021 Monocytes/100 WBC (Bld) 7.8 % 0-10 [facility] Work Phone: Blood platelet mean volumeon 10-23-2021 Platelet mean volume (Bld) [Entitic vol] 9.0 fL 6.2-12.0 [facility] Work Phone: Determination of erythrocyte mean corpuscular volume (MCV)on 10-23-2021 MCV (RBC) [Entitic vol] 91.8 fL 81-99 [facility] Work Phone: Hematocrit Auto (Bld) [Volum e fraction]on 10-23-2021 Hematocrit (Bld) [Volume fraction] 34.6 % 37-47 [facility] Work Phone: Iron measurement (mass/mass) on 10-23-2021 Iron (Unsp spec) [Mass/Mass] 27 ug/dL 50-170 [facility] Work Phone: Laboratory - Chemistry and C hemistry - challengeon 10-23-2021 ALP [Catalytic activity/Vol] 49 U/L 45-117 [facility] Work Phone: ALT [Catalytic activity/Vol] 30 U/L 13-56 [facility] Work Phone: CO2 [Moles/Vol] 25.0 mmol/L 21.0-32.0 [facility] Work Phone: Cobalamin (Vitamin B12) [Mass/Vol] 1868 pg/mL 211-911 [facility] Work Phone: Globulin (S) [Mass/Vol] 3.4 g/dL 2.2-4.2 [facility] Work Phone: Urea nitrogen/Creatinine [Mass ratio] 27.4 mg/mg 10-20 [facility] Work Phone: Laboratory - Hematology and Cell countson 10-23-2021 Erythrocyte distribution width (RBC) [Entitic vol] 45.8 fL 35.1-43.9 [facility] Work Phone: Erythrocyte distribution width (RBC) [Ratio] 13.4 % 11.6-14.6 [facility] Work Phone: Immature granulocytes/100 WBC (Bld) 0.400 % 0.0-0.9 [facility] Work Phone: Comment on above: IG% - Immature Granu locytes (promyelocytes, myelocytes and metamyelocytes) > 1% indicates that a LEFT SHIFT is Present. MCH (RBC) [Entitic mass] 28.4 pg 27.0-32.0 [facility] Work Phone: Nucleated RBC/100 WBC (Bld) [Ratio] 0 % 0-5 [facility] Work Phone: MCHC Auto (RBC) [Mass/Vol]on 10-23-2021 MCHC (RBC) [Mass/Vol] 30.9 g/dL 32-36 [facility] Work Phone: No Panel Informationon 10-23 Cat Hair Allergen <0.10 kU/L Class 0 [facility] Work Phone: Common Ragweed (Short) Allergen <0.10 kU/L Class 0 [facility] Work Phone: Estimated GFR (MDRD) Amer 106 mL/min >60 [facility] Work Phone: Comment on above: GFR Calc Estimated GFR (MDRD) Non-Af Amer 88 mL/min >60 [facility] Work Phone: Comment on above: Non- GFR Calc Immunoglobulin E 14 IU/mL 6-495 [facility] Work Phone: Maple ([place]) Allergen IgE Ab <0.10 kU/L Class 0 [facility] Work Phone: Mouse Urine Allergen IgE Antibody <0.10 kU/L Class 0 [facility] Work Phone: Comment on above: Performed at: [address] [id number] Director: Joan Ye MD, Phone: [phone] Parathyroid Hormone (Intact) 69.8 pg/mL 18.4-80.1 [facility] Work Phone: RAST Comment Comment . [facility] Work Phone: Comment on above: Levels of Specific I gE Class Description of Class ----- < 0.10 0 Negative 0.10 - 0.31 0/I Equivocal/Low 0.32 - 0.55 I Low 0.56 - 1.40 II Moderate 1.41 - 3.90 III High 3.91 - 19.00 IV Very High 19.01 - 100.00 V Very High >100.00 Very High Total Iron Binding Capacity 365 ug/dL 250-450 [facility] Work Phone: Vitamin D 25-Hydroxy 39.6 ng/mL [facility] Work Phone: Comment on above: Vitamin D 25(OH) Sta tus Range Deficiency <20 ng/mL (50nmol/L) Insufficiency 20 - 30 ng/mL (50 - 75 nmol/L) Sufficiency 30 - 100 ng/mL (75 - 250 nmol/L) Toxicity >100 ng/mL (>250 nmol/L) [place] Tree Allergen <0.10 kU/L Class 0 [facility] Work Phone: Whole Blood Vitamin B1 Level 233.0 nmol/L 66.5-200.0 [facility] Work Phone: Platelets bldon 10-23-2021 Platelets (Bld) [#/Vol] 332 10*3/uL 150-450 [facility] Work Phone: Rough pigweed specific IgE a ntibody assayon 10-23-2021 Rough Pigweed IgE Qn (S) <0.10 kU/L Class 0 [facility] Work Phone: Serum Danish sycamore IgE antibody assay (units/volume)on 10-23-2021 Danish [place] IgE Qn (S) <0.10 kU/L Class 0 [facility] Work Phone: Serum Aspergillus fumigatus IgE antibody assay (units/volume)on 10-23-2021 A. fumigatus IgE Qn (S) <0.10 kU/L Class 0 [facility] Work Phone: Serum Bermuda grass IgE anti body assay (units/volume)on 10-23-2021 Bermuda grass IgE Qn (S) <0.10 kU/L Class 0 [facility] Work Phone: Serum Cladosporium herbarum IgE antibody assay (units/volume)on 10-23-2021 C. herbarum IgE Qn (S) <0.10 kU/L Class 0 [facility] Work Phone: Serum Dermatophagoides farin ae specific IgE antibody assay (units/volume)on 10-23-2021 Danish house dust mite IgE Qn (S) <0.10 kU/L Class 0 [facility] Work Phone: Serum house dust mi te IgE antibody assay (units/volume)on 10-23-2021 house dust mite IgE Qn (S) <0.10 kU/L Class 0 [facility] Work Phone: Serum Penicillium notatum Ig E antibody assay (units/volume)on 10-23-2021 P. notatum IgE Qn (S) <0.10 kU/L Class 0 [facility] Work Phone: Serum Periplaneta americana IgE antibody assay (units/volume)on 10-23-2021 Danish Cockroach IgE Qn (S) <0.10 kU/L Class 0 [facility] Work Phone: Serum Romanian thistle specif ic IgE antibody assayon 10-23-2021 Saltwort IgE Qn (S) <0.10 kU/L Class 0 [facility] Work Phone: Serum birch specific IgE ant ibody assayon 10-23-2021 Silver Birch IgE Qn (S) <0.10 kU/L Class 0 [facility] Work Phone: Serum black walnut IgE antib wendy assay (units/volume)on 10-23-2021 Black [place] IgE Qn (S) <0.10 kU/L Class 0 [facility] Work Phone: Serum cottonwood IgE antibod y assay (units/volume)on 10-23-2021 Russell IgE Qn (S) <0.10 kU/L Class 0 [facility] Work Phone: Serum dog epithelium IgE ant ibody assay (units/volume)on 10-23-2021 Dog epithelium IgE Qn (S) <0.10 kU/L Class 0 [facility] Work Phone: Serum mountain cedar specifi c IgE antibody assayon 10-23-2021 Mountain Juniper IgE Qn (S) <0.10 kU/L Class 0 [facility] Work Phone: Serum or plasma albumin shane urement (mass/volume)on 10-23-2021 Albumin [Mass/Vol] 3.3 g/dL 3.2-5.0 [facility] Work Phone: Serum or plasma albumin/glob ulin mass ratioon 10-23-2021 Albumin/Globulin [Mass ratio] 1.0 {ratio} 0.9-2.4 [facility] Work Phone: Serum or plasma calcium shane urement (mass/volume)on 10-23-2021 Calcium [Mass/Vol] 8.2 mg/dL 8.5-10.1 [facility] Work Phone: Serum or plasma creatinine m easurement (mass/volume)on 10-23-2021 Creatinine [Mass/Vol] 0.69 mg/dL 0.55-1.02 [facility] Work Phone: Comment on above: The validity of the calculated GFR & GFRAA in patients over 70 years has not been determined. Clinical correlation is essential. Serum or plasma ferritin agustin surement (mass/volume)on 10-23-2021 Ferritin [Mass/Vol] 27 ng/mL 8-252 [facility] Work Phone: Serum or plasma folate measu rement (mass/volume)on 10-23-2021 Folate [Mass/Vol] 31.60 ng/mL 3.1-55.4 [facility] Work Phone: Serum or plasma iron saturat ion measurement (mass fraction)on 10-23-2021 Iron saturation [Mass fraction] 7.4 % 15.0-55.0 [facility] Work Phone: Serum or plasma urea nitroge n measurement (mass/volume)on 10-23-2021 Urea nitrogen [Mass/Vol] 19 mg/dL 7-18 [facility] Work Phone: Serum pecan or hickory nut I gE antibody assay (units/volume)on 10-23-2021 Pecan or [place] Nut IgE Qn (S) <0.10 kU/L Class 0 [facility] Work Phone: Serum sheep sorrel IgE antib wendy assay (units/volume)on 10-23-2021 Sheep [place] IgE Qn (S) <0.10 kU/L Class 0 [facility] Work Phone: Serum lizette IgE antibody a ssay (units/volume)on 10-23-2021 Lizette IgE Qn (S) <0.10 kU/L Class 0 [facility] Work Phone: Serum white millie IgE antibody assay (units/volume)on 10-23-2021 White Millie IgE Qn (S) <0.10 kU/L Class 0 [facility] Work Phone: Serum white elm IgE antibody assay (units/volume)on 10-23-2021 White Elm IgE Qn (S) <0.10 kU/L Class 0 [facility] Work Phone: Serum white mulberry IgE ant ibody assay (units/volume)on 10-23-2021 White mulberry IgE Qn (S) <0.10 kU/L Class 0 [facility] Work Phone: Thin prep Papanicolaou smear with manual screeningon 10-23-2021 Thin prep Papanicolaou smear with manual screening 18 U/L 15-37 [facility] Work Phone: Thin prep Papanicolaou smear with manual screening 7 5-15 [facility] Work Phone: Thin prep Papanicolaou smear with manual screening 90 ug/dL 80-158 [facility] Work Phone: Comment on above: Detection Limit = 5P erformed at: [id number] [place], [place] [id number] Director: Joan Ye MD, Phone: [phone] Whole blood hemoglobin A1c/t otal hemoglobin ratio (mass fraction)on 10-23-2021 HbA1c (Bld) [Mass fraction] 6.8 % 3.8-5.6 [facility] Work Phone: Comment on above: Normal < 5.7 % Predi abetic 5.7 - 6.4 % Diabetic >or= 6.5 % Please note range changes. 24 hour urine alpha 2 globul in/total protein ratio by electrophoresis (mass fraction)on 10-10-2021 Alpha 2 globulin Elph (24H U) [Mass fraction] 5.3 % . [facility] Work Phone: 24 hour urine beta globulin/ total protein ratio by electrophoresis (mass fraction)on 10-10-2021 Beta globulin Elph (24H U) [Mass fraction] 11.5 % . [facility] Work Phone: 24 hour urine gamma globulin /total protein ratio by electrophoresis (mass fraction)on 10-10-2021 Gamma globulin Elph (24H U) [Mass fraction] 5.4 % . [facility] Work Phone: Laboratory - Chemistry and C hemistry - challengeon 10-10-2021 Albumin [Mass/Vol] 3.4 g/dL 2.9-4.4 [facility] Work Phone: No Panel Informationon 10-10 Addendum Document Comment . [facility] Work Phone: Comment on above: The SPE pattern appe ars unremarkable. Evidence ofmonoclonal protein is not apparent. Ldach-6-Zrkbvoree 0.2 g/dL 0.0-0.4 [facility] Work Phone: Pjhmg-6-Rsxwlulqe 0.9 g/dL 0.4-1.0 [facility] Work Phone: Gamma Globulins 0.7 g/dL 0.4-1.8 [facility] Work Phone: Protein Fractions Elph [Inte rp]on 10-10-2021 Protein Fractions [Interp] Comment . [facility] Work Phone: Comment on above: Protein electrophore sis scan will follow via computer,mail, or visual design lead delivery. Serum albumin to globulin ra jazlyn by protein electrophoresison 10-10-2021 Albumin/Globulin Elph [Mass ratio] 1.3 0.7-1.7 [facility] Work Phone: Serum globulin measurement ( mass/volume)on 10-10-2021 Globulin (S) [Mass/Vol] 2.7 g/dL 2.2-3.9 [facility] Work Phone: Serum or plasma beta globuli n measurement by electrophoresis (mass/volume)on 10-10-2021 Beta globulin Elph [Mass/Vol] 1.0 g/dL 0.7-1.3 [facility] Work Phone: Thin prep Papanicolaou smear with manual screeningon 10-10-2021 Thin prep Papanicolaou smear with manual screening 647.0 mg/L NO RANGE EST. [facility] Work Phone: Thin prep Papanicolaou smear with manual screening See comment [facility] Work Phone: Comment on above: NOT OBSERVED Total protein bloodon 2021 Protein [Mass/Vol] 6.1 g/dL 6.0-8.5 [facility] Work Phone: Urine albumin/total protein mass ratio by electrophoresison 10-10-2021 Albumin Elph (U) [Mass fraction] 72.3 % . [facility] Work Phone: Urine alpha 1 globulin/total protein ratio by electrophoresis (mass fraction)on 10-10-2021 Alpha 1 globulin Elph (U) [Mass fraction] 5.5 % . [facility] Work Phone: Urine creatinine measurement (mass/volume)on 10-10-2021 Creatinine (U) [Mass/Vol] 22.70 mg/dL NO RANGE EST. [facility] Work Phone: Urine monoclonal protein/tot al protein mass ratio by electrophoresison 10-10-2021 Protein.monoclonal Elph (U) [Mass fraction] See comment [facility] Work Phone: Comment on above: NOT OBSERVED Urine protein measurement (m ass/volume)on 10-10-2021 Protein (U) [Mass/Vol] 79.8 mg/dL Not Estab. [facility] Work [place]: Basophil percentageon 2021 Chloride [Moles/Vol] 98 mmol/L 98-107 [facility] Work Phone: Glucose [Mass/Vol] 150 mg/dL 74-106 [facility] Work Phone: Comment on above: Fasting Glucose resu lt greater than or equal to 126 mg/dL suggests DIABETES MELLITUS per A.D.A. criteria. Potassium [Moles/Vol] 4.3 mmol/L 3.5-5.1 [facility] Work Phone: Sodium [Moles/Vol] 131 mmol/L 136-145 [facility] Work Phone: Laboratory - Chemistry and C hemistry - challengeon 09-06-2021 CO2 [Moles/Vol] 29.0 mmol/L 21.0-32.0 [facility] Work Phone: Urea nitrogen/Creatinine [Mass ratio] 25.0 mg/mg 10-20 [facility] Work Phone: No Panel Informationon 09-06 Estimated GFR (MDRD) Amer 90 mL/min >60 [facility] Work Phone: Comment on above: GFR Calc Estimated GFR (MDRD) Non-Af Amer 74 mL/min >60 [facility] Work Phone: Comment on above: Non- GFR Calc Miscellaneous Test See comment [facility] Work Phone: Comment on above: TEST RESULT LIMITSSA RS-CoV-2 Semi-Quant Total [id number] Semi-Quant Total Ab A, See Dilution U/mL Negative<0.8 SARS-CoV-2 Mazin Ab Dilution A, 250 U/mL Negative<0.8SARS-CoV-2 Mazin Ab Interp A, PositiveAntibodies against the SARS-CoV-2 spike protein receptor binding domain (RBD) were detected. It is yet undetermined what level of antibody to SARS-CoV-2 spike protein correlates to immunity against developing symptomatic SARS-CoV-2 disease. Studies are underway to measure the quantitative levels of specific SARS-CoV-2 antibodiesfollowing vaccination. Such studies will provide valuable insights into the correlation between protection from vaccination and antibody levels.Entrecs [id number] SEffective August 27, 2021 [facility] expanded the reporting range of results for test [id number] SARS-Cov-2 Semi-Quantitative Total Antibody, Mazin. Results previously reported for this assay were 0.8 - 2500 U/mL with higher values reported as >2500 U/mL. With the addition of an automated dilution, we are now able to report results 0.8 - 07045 U/mL with higher values reported as >38146 U/mL. This change does not impact previously reported results, it just increases the numerical values above 2500 U/mL that we are able to report.CommentsA: This test has not been FDA cleared or approved. This test has been authorized by FDA under an Emergency Use Authorization (EUA). This test is onlyauthorized for the duration of the declaration that circumstances exist justifying the authorization of emergency use of in vitro diagnostics for detectionand/or diagnosis of COVID-19 under Section 564(b)(1) of the Act, 21 U.S.C. 360bbb-3(b)(1), unless the authorization is terminated or revoked sooner. Thistest has been authorized only for detecting the presence of antibodies against SARS-CoV-2, not for any other viruses or pathogens. TESTING PERFORMED AT [facility]. ORIGINAL REPORT ON FILE IN LAB CONTAINS ADDITIONAL TEST SITE INFORMATION. Serum or plasma calcium shane urement (mass/volume)on 09-06-2021 Calcium [Mass/Vol] 8.3 mg/dL 8.5-10.1 [facility] Work Phone: Serum or plasma creatinine m easurement (mass/volume)on 09-06-2021 Creatinine [Mass/Vol] 0.80 mg/dL 0.55-1.02 [facility] Work Phone: Comment on above: The validity of the calculated GFR & GFRAA in patients over 70 years has not been determined. Clinical correlation is essential. Serum or plasma urea nitroge n measurement (mass/volume)on 09-06-2021 Urea nitrogen [Mass/Vol] 20 mg/dL 7-18 [facility] Work Phone: Thin prep Papanicolaou smear with manual screeningon 09-06-2021 Thin prep Papanicolaou smear with manual screening 4 5-15 [facility] Work Phone: Glucose Glucometer (BldC) [M ass/Vol]on 09-03-2021 Glucose [Mass/Vol] 93 mg/dL 74-106 [facility] Work Phone: Comment on above: MANAGEMENT OF PATIEN T CARE PER NURSING PROTOCOL Basophil percentageon 2021 Chloride [Moles/Vol] 103 mmol/L 98-107 [facility] Work Phone: Glucose [Mass/Vol] 153 mg/dL 74-106 [facility] Work Phone: Comment on above: Fasting Glucose resu lt greater than or equal to 126 mg/dL suggests DIABETES MELLITUS per A.D.A. criteria. Potassium [Moles/Vol] 3.3 mmol/L 3.5-5.1 [facility] Work Phone: Sodium [Moles/Vol] 137 mmol/L 136-145 [facility] Work Phone: Laboratory - Chemistry and C hemistry - challengeon 08-25-2021 CO2 [Moles/Vol] 30.0 mmol/L 21.0-32.0 [facility] Work Phone: Urea nitrogen/Creatinine [Mass ratio] 25.6 mg/mg 10-20 [facility] Work Phone: No Panel Informationon 08-25 Estimated GFR (MDRD) Amer 98 mL/min >60 [facility] Work Phone: Comment on above: GFR Calc Estimated GFR (MDRD) Non-Af Amer 81 mL/min >60 [facility] Work Phone: Comment on above: Non- GFR Calc Serum or plasma calcium shane urement (mass/volume)on 08-25-2021 Calcium [Mass/Vol] 7.8 mg/dL 8.5-10.1 [facility] Work Phone: Serum or plasma creatinine m easurement (mass/volume)on 08-25-2021 Creatinine [Mass/Vol] 0.74 mg/dL 0.55-1.02 [facility] Work Phone: Comment on above: The validity of the calculated GFR & GFRAA in patients over 70 years has not been determined. Clinical correlation is essential. Serum or plasma urea nitroge n measurement (mass/volume)on 08-25-2021 Urea nitrogen [Mass/Vol] 19 mg/dL 7-18 [facility] Work Phone: Thin prep Papanicolaou smear with manual screeningon 08-25-2021 Thin prep Papanicolaou smear with manual screening 4 5-15 [facility] Work Phone: Basophil percentageon 2021 Bilirubin [Mass/Vol] 0.20 mg/dL 0.20-1.00 [facility] Work Phone: Comment on above: For patients on eltr ombopag therapy, use of Dimension Van Horne TBIL is not recommended. Chloride [Moles/Vol] 105 mmol/L 98-107 [facility] Work Phone: Glucose [Mass/Vol] 225 mg/dL 74-106 [facility] Work Phone: Comment on above: Glucose result great er than or equal to 200 mg/dLsuggests DIABETES MELLITUS per A.D.A. criteria. Potassium [Moles/Vol] 3.2 mmol/L 3.5-5.1 [facility] Work Phone: Protein [Mass/Vol] 6.3 g/dL 6.4-8.2 [facility] Work Phone: Sodium [Moles/Vol] 140 mmol/L 136-145 [facility] Work Phone: Laboratory - Chemistry and C hemistry - challengeon 08-24-2021 ALP [Catalytic activity/Vol] 65 U/L 45-117 [facility] Work Phone: ALT [Catalytic activity/Vol] 27 U/L 13-56 [facility] Work Phone: CO2 [Moles/Vol] 30.0 mmol/L 21.0-32.0 [facility] Work Phone: Globulin (S) [Mass/Vol] 3.1 g/dL 2.2-4.2 [facility] Work Phone: Magnesium [Mass/Vol] 2.3 mg/dL 1.6-2.6 [facility] Work Phone: Urea nitrogen/Creatinine [Mass ratio] 22.3 mg/mg 10-20 [facility] Work Phone: No Panel Informationon 08-24 Estimated GFR (MDRD) Amer 102 mL/min >60 [facility] Work Phone: Comment on above: GFR Calc Estimated GFR (MDRD) Non-Af Amer 84 mL/min >60 [facility] Work Phone: Comment on above: Non- GFR Calc Serum or plasma albumin shane urement (mass/volume)on 08-24-2021 Albumin [Mass/Vol] 3.2 g/dL 3.2-5.0 [facility] Work Phone: Serum or plasma albumin/glob ulin mass ratioon 08-24-2021 Albumin/Globulin [Mass ratio] 1.0 {ratio} 0.9-2.4 [facility] Work Phone: Serum or plasma calcium shane urement (mass/volume)on 08-24-2021 Calcium [Mass/Vol] 8.1 mg/dL 8.5-10.1 [facility] Work Phone: Serum or plasma creatinine m easurement (mass/volume)on 08-24-2021 Creatinine [Mass/Vol] 0.72 mg/dL 0.55-1.02 [facility] Work Phone: Comment on above: The validity of the calculated GFR & GFRAA in patients over 70 years has not been determined. Clinical correlation is essential. Serum or plasma urea nitroge n measurement (mass/volume)on 08-24-2021 Urea nitrogen [Mass/Vol] 16 mg/dL 7-18 [facility] Work Phone: Thin prep Papanicolaou smear with manual screeningon 08-24-2021 Thin prep Papanicolaou smear with manual screening 14 U/L 15-37 [facility] Work Phone: Thin prep Papanicolaou smear with manual screening 5 5-15 [facility] Work Phone: Basophil percentageon 2021 Bilirubin [Mass/Vol] 0.20 mg/dL 0.20-1.00 [facility] Work Phone: Comment on above: For patients on eltr ombopag therapy, use of Dimension Van Horne TBIL is not recommended. Protein [Mass/Vol] 6.6 g/dL 6.4-8.2 [facility] Work Phone: WBC (Bld) [#/Vol] 5.5 10*3/uL 4.4-11.0 [facility] Work Phone: Blood erythrocytes count (nu mber/volume)on 08-09-2021 RBC (Bld) [#/Vol] 3.56 10*6/uL 4.2-5.4 [facility] Work Phone: Blood hemoglobin measurement (mass/volume)on 08-09-2021 Hemoglobin (Bld) [Mass/Vol] 11.2 g/dL 12.0-15.0 [facility] Work Phone: Blood platelet mean volumeon 08-09-2021 Platelet mean volume (Bld) [Entitic vol] 9.3 fL 6.2-12.0 [facility] Work Phone: Determination of erythrocyte mean corpuscular volume (MCV)on 08-09-2021 MCV (RBC) [Entitic vol] 96.3 fL 81-99 [facility] Work Phone: Direct bilirubinon 2 Bilirubin.direct [Mass/Vol] 0.11 mg/dL 0.00-0.30 [facility] Work Phone: Hematocrit Auto (Bld) [Volum e fraction]on 08-09-2021 Hematocrit (Bld) [Volume fraction] 34.3 % 37-47 [facility] Work Phone: Laboratory - Chemistry and C hemistry - challengeon 08-09-2021 ALP [Catalytic activity/Vol] 79 U/L 45-117 [facility] Work Phone: ALT [Catalytic activity/Vol] 28 U/L 13-56 [facility] Work Phone: Cobalamin (Vitamin B12) [Mass/Vol] 1533 pg/mL 211-911 [facility] Work Phone: Globulin (S) [Mass/Vol] 3.1 g/dL 2.2-4.2 [facility] Work Phone: Laboratory - Hematology and Cell countson 08-09-2021 Erythrocyte distribution width (RBC) [Entitic vol] 47.9 fL 35.1-43.9 [facility] Work Phone: Erythrocyte distribution width (RBC) [Ratio] 13.3 % 11.6-14.6 [facility] Work Phone: MCH (RBC) [Entitic mass] 31.5 pg 27.0-32.0 [facility] Work Phone: MCHC Auto (RBC) [Mass/Vol]on 08-09-2021 MCHC (RBC) [Mass/Vol] 32.7 g/dL 32-36 [facility] Work Phone: No Panel Informationon 08-09 Thyroid Stimulating Hormone (TSH) 1.37 uIU/mL 0.358-3.74 [facility] Work Phone: Whole Blood Vitamin B1 Level 150.5 nmol/L 66.5-200.0 [facility] Work Phone: Comment on above: Performed at: - [address] [id number] Director: Joan Ye MD, Phone: [phone] Platelets bldon 08-09-2021 Platelets (Bld) [#/Vol] 291 10*3/uL 150-450 [facility] Work Phone: Serum or plasma albumin shane urement (mass/volume)on 08-09-2021 Albumin [Mass/Vol] 3.5 g/dL 3.2-5.0 [facility] Work Phone: Serum or plasma folate measu rement (mass/volume)on 08-09-2021 Folate [Mass/Vol] 29.80 ng/mL 3.1-55.4 [facility] Work Phone: Thin prep Papanicolaou smear with manual screeningon 08-09-2021 Thin prep Papanicolaou smear with manual screening 20 U/L 15-37 [facility] Work Phone: Basophil percentageon 2021 Chloride [Moles/Vol] 104 mmol/L 98-107 [facility] Work Phone: Glucose [Mass/Vol] 94 mg/dL 74-106 [facility] Work Phone: Potassium [Moles/Vol] 3.8 mmol/L 3.5-5.1 [facility] Work Phone: Sodium [Moles/Vol] 139 mmol/L 136-145 [facility] Work Phone: Laboratory - Chemistry and C hemistry - challengeon 08-03-2021 CO2 [Moles/Vol] 31.0 mmol/L 21.0-32.0 [facility] Work Phone: Urea nitrogen/Creatinine [Mass ratio] 18.7 mg/mg 10-20 [facility] Work Phone: No Panel Informationon 08-03 Estimated GFR (MDRD) Amer 143 mL/min >60 [facility] Work Phone: Comment on above: GFR Calc Estimated GFR (MDRD) Non-Af Amer 119 mL/min >60 [facility] Work Phone: Comment on above: Non- GFR Calc Serum or plasma calcium shane urement (mass/volume)on 08-03-2021 Calcium [Mass/Vol] 8.1 mg/dL 8.5-10.1 [facility] Work Phone: Serum or plasma creatinine m easurement (mass/volume)on 08-03-2021 Creatinine [Mass/Vol] 0.53 mg/dL 0.55-1.02 [facility] Work Phone: Comment on above: The validity of the calculated GFR & GFRAA in patients over 70 years has not been determined. Clinical correlation is essential. Serum or plasma urea nitroge n measurement (mass/volume)on 08-03-2021 Urea nitrogen [Mass/Vol] 10 mg/dL 7-18 [facility] Work Phone: Thin prep Papanicolaou smear with manual screeningon 08-03-2021 Thin prep Papanicolaou smear with manual screening 4 5-15 [facility] Work Phone: Basophil percentageon 2021 Chloride [Moles/Vol] 106 mmol/L 98-107 [facility] Work Phone: Glucose [Mass/Vol] 187 mg/dL 74-106 [facility] Work Phone: Comment on above: Fasting Glucose resu lt greater than or equal to 126 mg/dL suggests DIABETES MELLITUS per A.D.A. criteria. Potassium [Moles/Vol] 3.7 mmol/L 3.5-5.1 [facility] Work Phone: Sodium [Moles/Vol] 136 mmol/L 136-145 [facility] Work Phone: Laboratory - Chemistry and C hemistry - challengeon 07-25-2021 CO2 [Moles/Vol] 25.0 mmol/L 21.0-32.0 [facility] Work Phone: Urea nitrogen/Creatinine [Mass ratio] 23.1 mg/mg 10-20 [facility] Work Phone: No Panel Informationon 07-25 Estimated GFR (MDRD) Amer 124 mL/min >60 [facility] Work Phone: Comment on above: GFR Calc Estimated GFR (MDRD) Non-Af Amer 102 mL/min >60 [facility] Work Phone: Comment on above: Non- GFR Calc Serum or plasma albumin shane urement (mass/volume)on 07-25-2021 Albumin [Mass/Vol] 3.0 g/dL 3.2-5.0 [facility] Work Phone: Serum or plasma calcium shane urement (mass/volume)on 07-25-2021 Calcium [Mass/Vol] 8.6 mg/dL 8.5-10.1 [facility] Work Phone: Serum or plasma creatinine m easurement (mass/volume)on 07-25-2021 Creatinine [Mass/Vol] 0.61 mg/dL 0.55-1.02 [facility] Work Phone: Comment on above: The validity of the calculated GFR & GFRAA in patients over 70 years has not been determined. Clinical correlation is essential. Serum or plasma transthyreti n measurement (mass/volume)on 07-25-2021 Prealbumin [Mass/Vol] 24.2 mg/dL 20.0-40.0 [facility] Work Phone: Serum or plasma urea nitroge n measurement (mass/volume)on 07-25-2021 Urea nitrogen [Mass/Vol] 14 mg/dL 7-18 [facility] Work Phone: Thin prep Papanicolaou smear with manual screeningon 07-25-2021 Thin prep Papanicolaou smear with manual screening 10 04- [facility] Work Phone: Urine osmolality measurement on 07-25-2021 Osmolality (U) [Osmolality] 267 mOsm/KG >50 [facility] Work Phone: Comment on above: Normal Urine Referen ce Ranges Random: 50 - 1200 mOsm/kg H20 depending on fluid intake Random: >850 mOsm/kg after 12 hour fluid restriction 24 hour: ~300 - 900 mOsm/kg H2O ACTHon 07-17-2021 ACTH 44.9 pg/mL Normal 7.2-63.3 [facility] Comment on above: Result Comment: INTE RPRETIVE INFORMATION: Adrenocorticotropic Hormone Reference interval based on samples collected between 7 a.m. and 10 a.m. No reference intervals established for p.m. collections. Pediatric reference values are the same as adults (Acta Paediatr Scand 1981;70:341-345). This assay measures intact ACTH 1-39; some types of synthetic ACTH and ACTH fragments are not detected by this assay. Performed By: [facility] [address] [place] [address] [employer] Teacher: Aileen Urias MD Performed By: #### L FT3, CORTL, PTH3, HEMDF, PHOS3, MG3, BMP3 #### [facility] [address] [place] [address] #### [id number] #### [facility] [address] [place] [address] Basophil percentageon 2021 Bilirubin [Mass/Vol] 0.30 mg/dL 0.20-1.00 [facility] Work Phone: Comment on above: For patients on eltr ombopag therapy, use of Dimension Van Horne TBIL is not recommended. Chloride [Moles/Vol] 100 mmol/L 98-107 [facility] Work Phone: Glucose [Mass/Vol] 152 mg/dL 74-106 [facility] Work Phone: Comment on above: Fasting Glucose resu lt greater than or equal to 126 mg/dL suggests DIABETES MELLITUS per A.D.A. criteria. Potassium [Moles/Vol] 3.5 mmol/L 3.5-5.1 [facility] Work Phone: Protein [Mass/Vol] 6.3 g/dL 6.4-8.2 [facility] Work Phone: Sodium [Moles/Vol] 134 mmol/L 136-145 [facility] Work Phone: Laboratory - Chemistry and C hemistry - challengeon 07-16-2021 ALP [Catalytic activity/Vol] 115 U/L 45-117 [facility] Work Phone: ALT [Catalytic activity/Vol] 39 U/L 13-56 [facility] Work Phone: CO2 [Moles/Vol] 26.0 mmol/L 21.0-32.0 [facility] Work Phone: Globulin (S) [Mass/Vol] 3.4 g/dL 2.2-4.2 [facility] Work Phone: Urea nitrogen/Creatinine [Mass ratio] 19.6 mg/mg 10-20 [facility] Work Phone: No Panel Informationon 07-16 Estimated GFR (MDRD) Amer 123 mL/min >60 [facility] Work Phone: Comment on above: GFR Calc Estimated GFR (MDRD) Non-Af Amer 101 mL/min >60 [facility] Work Phone: Comment on above: Non- GFR Calc Parathyroid Hormone (Intact) 36.0 pg/mL 18.4-80.1 [facility] Work Phone: Vitamin D 25-Hydroxy 67.7 ng/mL [facility] Work Phone: Comment on above: Vitamin D 25(OH) Sta tus Range Deficiency <20 ng/mL (50nmol/L) Insufficiency 20 - 30 ng/mL (50 - 75 nmol/L) Sufficiency 30 - 100 ng/mL (75 - 250 nmol/L) Toxicity >100 ng/mL (>250 nmol/L) Serum or plasma albumin shane urement (mass/volume)on 07-16-2021 Albumin [Mass/Vol] 2.9 g/dL 3.2-5.0 [facility] Work Phone: Serum or plasma albumin/glob ulin mass ratioon 07-16-2021 Albumin/Globulin [Mass ratio] 0.9 {ratio} 0.9-2.4 [facility] Work Phone: Serum or plasma calcium shane urement (mass/volume)on 07-16-2021 Calcium [Mass/Vol] 8.4 mg/dL 8.5-10.1 [facility] Work Phone: Serum or plasma creatinine m easurement (mass/volume)on 07-16-2021 Creatinine [Mass/Vol] 0.61 mg/dL 0.55-1.02 [facility] Work Phone: Comment on above: The validity of the calculated GFR & GFRAA in patients over 70 years has not been determined. Clinical correlation is essential. Serum or plasma urea nitroge n measurement (mass/volume)on 07-16-2021 Urea nitrogen [Mass/Vol] 12 mg/dL 7-18 [facility] Work Phone: Thin prep Papanicolaou smear with manual screeningon 07-16-2021 Thin prep Papanicolaou smear with manual screening 27 U/L 15-37 [facility] Work Phone: Thin prep Papanicolaou smear with manual screening 8 5-15 [facility] Work Phone: Thin prep Papanicolaou smear with manual screening 281 mOsm/KG 280-301 [facility] Work Phone: Calcium, Urineon 07-15-2021 Ca/Creat Ratio 98 mg/g Normal 20-300 [facility] Comment on above: Result Comment: REFE RENCE INTERVAL: Calcium/Creatinine Ratio, Urine Access complete set of age- and/or gender-specific reference intervals for this test in the aitainment Laboratory Test Directory ([employer] Performed By: [facility] [address] [place] [address] [employer] Teacher: Aileen Urias MD Performed By: #### L FT3, CORTL, PTH3, HEMDF, PHOS3, MG3, BMP3 #### [place] [address] [place], [place] #### [id number] #### [facility] [address] [place] [address] Calcium, Ur mg/day Not Applicable Normal [facility] Comment on above: Result Comment: INTE RPRETIVE INFORMATION: CALCIUM, URINE - mg/day Calcium-free diet: 5-40 mg/d Low calcium diet (800 mg/d or less): 50-150 mg/d Average calcium diet (about 800 mg/d): 100-250 mg/d High calcium diet (800 mg/d or greater): greater than 250 mg/d Performed By: #### L FT3, CORTL, PTH3, HEMDF, PHOS3, MG3, BMP3 #### [facility] [address] [place], [place] #### [id number] #### [facility] [address] [place] [address] Calcium, Ur mg/dL 4.6 mg/dL Normal [facility] Comment on above: Performed By: #### L FT3, CORTL, PTH3, HEMDF, PHOS3, MG3, BMP3 #### [facility] [address] [place], [place] #### [id number] #### [facility] [address] [place] [address] Collection Period Random Normal [facility] Comment on above: Result Comment: Per 24h calculations are provided to aid interpretation for collections with a duration of 24 hours and an average daily urine volume. For specimens with notable deviations in collection time or volume, ratios of analytes to a corresponding urine creatinine concentration may assist in result interpretation. Performed By: #### L FT3, CORTL, PTH3, HEMDF, PHOS3, MG3, BMP3 #### [place] [address] [place], [place] #### [id number] #### [place] [address] [place] [address] Creat, Ur mg/day Not Applicable Normal 500-1400 [facility] Comment on above: Performed By: #### L FT3, CORTL, PTH3, HEMDF, PHOS3, MG3, BMP3 #### [address] #### VD25H #### [address] [place] [address] Creat, Ur mg/dL 47 mg/dL Normal [facility] Comment on above: Performed By: #### L FT3, CORTL, PTH3, HEMDF, PHOS3, MG3, BMP3 #### [address] #### VD25H #### [address] [place] [address] Volume Random Normal [facility] Comment on above: Performed By: #### L FT3, CORTL, PTH3, HEMDF, PHOS3, MG3, BMP3 #### [address] #### VD25H #### [address] [place] [address] Basic Metabolic Panelon 07-03 Calcium [Mass/Vol] 7.9 mg/dL Low 8.4-10.4 [facility] Comment on above: Performed By: #### L FT3, CORTL, PTH3, HEMDF, PHOS3, MG3, BMP3 #### [facility] [address] [place], [place] #### VD25H #### [facility] [address] [place] [address] Glucose [Mass/Vol] 91 mg/dL Normal 70-100 [facility] Comment on above: Performed By: #### L FT3, CORTL, PTH3, HEMDF, PHOS3, MG3, BMP3 #### [place] [address] [address] [place], [place] #### VD25H #### [facility] [address] [place] [address] Anion gap [Moles/Vol] 1 mmol/L Low 3-13 [facility] Comment on above: Performed By: #### L FT3, CORTL, PTH3, HEMDF, PHOS3, MG3, BMP3 #### [place] [address] [address] [place], [place] #### VD25H #### [facility] [address] [place] [address] CO2 [Moles/Vol] 27 mmol/L Normal 22-30 [facility] Comment on above: Performed By: #### L FT3, CORTL, PTH3, HEMDF, PHOS3, MG3, BMP3 #### [place] [address] [address] [place], [place] #### VD25H #### [facility] [address] [place] [address] Creatinine [Mass/Vol] 0.35 mg/dL Low 0.52-1.25 [facility] Comment on above: Performed By: #### L FT3, CORTL, PTH3, HEMDF, PHOS3, MG3, BMP3 #### [place] [address] [address] [place], [place] #### VD25H #### [facility] [address] [place] [address] eGFR OTHER > 90.0 Normal >60 [facility] Comment on above: Result Comment: KDIG O guidelines provide the following GFR categories: Stage GFR(ml/min/1.73 m2) Terms G1 >=90 Normal or high G2 60-89 Mildly decreased* G3a 45-59 Mildly to moderately decreased G3b 30-44 Moderately to severely decreased G4 15-29 Severely decreased G5 <15 Kidney failure *Relative to young adult level. In the absence of evidence of kidney damage, neither GFR category G1 nor G2 fulfill the criteria for CKD. The CKD-EPI equation is validated in individuals 18 years of age and older. Currently the best equation for estimating glomerular filtration rate (GFR) from serum creatinine in children is the Bedside Glynn equation. It is less accurate in patients with extremes of muscle mass, restriction of dietary protein, ingestion of creatine, extra-renal metabolism of creatinine, or treatment with medications that affect renal tubular creatinine secretion. Performed By: #### L FT3, CORTL, PTH3, HEMDF, PHOS3, MG3, BMP3 #### [address] #### [id number] #### [facility] [address] [place] [address] GFR/1.73 sq M.predicted among blacks MDRD (S/P/Bld) [Vol rate/Area] mL/min/{1.73_m2} Normal >60 [facility] Comment on above: Performed By: #### L FT3, CORTL, PTH3, HEMDF, PHOS3, MG3, BMP3 #### [address] #### VD25H #### [facility] [address] [place] [address] Urea nitrogen [Mass/Vol] 12 mg/dL Normal 9-20 [facility] Comment on above: Performed By: #### L FT3, CORTL, PTH3, HEMDF, PHOS3, MG3, BMP3 #### [address] #### VD25H #### [facility] [address] [place] [address] Chloride [Moles/Vol] 102 mmol/L Normal 98-107 [facility] Comment on above: Performed By: #### L FT3, CORTL, PTH3, HEMDF, PHOS3, MG3, BMP3 #### [facility] [address] [place], [place] #### VD25H #### [facility] [address] [place] [address] Potassium [Moles/Vol] 4.0 mmol/L Normal 3.5-5.1 [facility] Comment on above: Performed By: #### L FT3, CORTL, PTH3, HEMDF, PHOS3, MG3, BMP3 #### [facility] [address] [place], [place] #### VD25H #### [facility] [address] [place] [address] Sodium [Moles/Vol] 130 mmol/L Low 135-145 [facility] Comment on above: Performed By: #### L FT3, CORTL, PTH3, HEMDF, PHOS3, MG3, BMP3 #### [place] [address] [place], [place] #### VD25H #### [facility] [address] [place] [address] Glucose,Bedsideon 07-14-2021 Glucose [Mass/Vol] 97 mg/dL Normal 70-100 [facility] Comment on above: Result Comment: Test performed by glucose meter. Results may be 10%-15% lower than serum/plasma values. (CLIA ID [id number]) Performed By: #### L FT3, CORTL, PTH3, HEMDF, PHOS3, MG3, BMP3 #### [facility] [address] [place], [place] #### VD25H #### [facility] [address] [place] [address] Glucose [Mass/Vol] 121 mg/dL High 70-100 [facility] Comment on above: Result Comment: Test performed by glucose meter. Results may be 10%-15% lower than serum/plasma values. (CLIA ID [id number]) Performed By: #### L FT3, CORTL, PTH3, HEMDF, PHOS3, MG3, BMP3 #### [place] [address] [address] [place], [place] #### VD25H #### [facility] [address] [place] [address] Hemogram w/ Autodiffon 07-14 Abs Baso Cnt 0.0 10*3/uL Normal 0.0-0.2 [facility] Comment on above: Performed By: #### L FT3, CORTL, PTH3, HEMDF, PHOS3, MG3, BMP3 #### [place] [address] [address] [place], [place] #### VD25H #### [facility] [address] [place] [address] Abs Neutrophile Cnt 4.4 10*3/uL Normal 1.8-7.0 [facility] Comment on above: Performed By: #### L FT3, CORTL, PTH3, HEMDF, PHOS3, MG3, BMP3 #### [place] [address] [place], [place] #### VD25H #### [facility] [address] [place] [address] Basophils/100 WBC (Bld) 0.6 % Normal 0.0-2.0 [facility] Comment on above: Performed By: #### L FT3, CORTL, PTH3, HEMDF, PHOS3, MG3, BMP3 #### [address] #### VD25H #### [facility] [address] [place] [address] Eosinophils (Bld) [#/Vol] 0.0 10*3/uL Normal 0.0-0.5 [facility] Comment on above: Performed By: #### L FT3, CORTL, PTH3, HEMDF, PHOS3, MG3, BMP3 #### [address] [place], [place] #### VD25H #### [facility] [address] [place] [address] Eosinophils/100 WBC (Bld) 0.4 % Low 1.0-6.0 [facility] Comment on above: Performed By: #### L FT3, CORTL, PTH3, HEMDF, PHOS3, MG3, BMP3 #### [address] #### VD25H #### [facility] [address] [place] [address] Erythrocyte distribution width (RBC) [Ratio] 14.7 % High 11.5-14.5 [facility] Comment on above: Performed By: #### L FT3, CORTL, PTH3, HEMDF, PHOS3, MG3, BMP3 #### [address] #### VD25H #### [facility] [address] [place] [address] Granulocytes/100 WBC (Bld) 72.3 % Normal 40.0-80.0 [facility] Comment on above: Performed By: #### L FT3, CORTL, PTH3, HEMDF, PHOS3, MG3, BMP3 #### [address] #### VD25H #### [facility] [address] [place] [address] Hematocrit (Bld) [Volume fraction] 26.9 % Low 35.0-47.0 [facility] Comment on above: Performed By: #### L FT3, CORTL, PTH3, HEMDF, PHOS3, MG3, BMP3 #### [place] [address] [place], [place] #### VD25H #### [facility] [address] [place] [address] Hemoglobin (Bld) [Mass/Vol] 9.1 g/dL Low 11.7-16.0 [facility] Comment on above: Performed By: #### L FT3, CORTL, PTH3, HEMDF, PHOS3, MG3, BMP3 #### [address] #### VD25H #### [facility] [address] [place] [address] Lymphocytes (Bld) [#/Vol] 1.2 10*3/uL Normal 1.0-4.3 [facility] Comment on above: Performed By: #### L FT3, CORTL, PTH3, HEMDF, PHOS3, MG3, BMP3 #### [facility] [address] [place], [place] #### VD25H #### [facility] [address] [place] [address] Lymphocytes/100 WBC (Bld) 19.6 % Low 20.0-40.0 [facility] Comment on above: Performed By: #### L FT3, CORTL, PTH3, HEMDF, PHOS3, MG3, BMP3 #### [address] #### VD25H #### [facility] [address] [place] [address] MCH (RBC) [Entitic mass] 31.6 pg Normal 26.0-34.0 [facility] Comment on above: Performed By: #### L FT3, CORTL, PTH3, HEMDF, PHOS3, MG3, BMP3 #### [address] #### VD25H #### [facility] [address] [place] [address] MCHC 33.8 % Normal 32.0-36.0 [facility] Comment on above: Performed By: #### L FT3, CORTL, PTH3, HEMDF, PHOS3, MG3, BMP3 #### [address] #### VD25H #### [facility] [address] [place] [address] MCV (RBC) [Entitic vol] 93.3 fL Normal 79.0-98.0 [facility] Comment on above: Performed By: #### L FT3, CORTL, PTH3, HEMDF, PHOS3, MG3, BMP3 #### [address] #### VD25H #### [facility] [address] [place] [address] Monocytes (Bld) [#/Vol] 0.4 10*3/uL Normal 0.0-0.8 [facility] Comment on above: Performed By: #### L FT3, CORTL, PTH3, HEMDF, PHOS3, MG3, BMP3 #### [facility] [address] [place], [place] #### VD25H #### [facility] [address] [place] [address] Monocytes/100 WBC (Bld) 7.1 % Normal 2.0-10.0 [facility] Comment on above: Performed By: #### L FT3, CORTL, PTH3, HEMDF, PHOS3, MG3, BMP3 #### [place] [address] [place], [place] #### VD25H #### [facility] [address] [place] [address] Platelet mean volume (Bld) [Entitic vol] 6.7 fL Low 7.4-10.4 [facility] Comment on above: Performed By: #### L FT3, CORTL, PTH3, HEMDF, PHOS3, MG3, BMP3 #### [place] [address] [place], [place] #### VD25H #### [facility] [address] [place] [address] Platelets (Bld) [#/Vol] 280 10*3/uL Normal 140-440 [facility] Comment on above: Performed By: #### L FT3, CORTL, PTH3, HEMDF, PHOS3, MG3, BMP3 #### [place] [address] [place], [place] #### VD25H #### [facility] [address] [place] [address] RBC (Bld) [#/Vol] 2.88 10*6/uL Low 3.80-5.20 [facility] Comment on above: Performed By: #### L FT3, CORTL, PTH3, HEMDF, PHOS3, MG3, BMP3 #### [place] [address] [place], [place] #### VD25H #### [facility] [address] [place] [address] WBC (Bld) [#/Vol] 6.0 10*3/uL Normal 3.6-10.7 [facility] Comment on above: Performed By: #### L FT3, CORTL, PTH3, HEMDF, PHOS3, MG3, BMP3 #### [address] #### VD25H #### [facility] [address] [place] [address] Magnesiumon 07-14-2021 Magnesium [Mass/Vol] 1.9 mg/dL Normal 1.6-2.3 [facility] Comment on above: Performed By: #### L FT3, CORTL, PTH3, HEMDF, PHOS3, MG3, BMP3 #### [address] #### VD25H #### [facility] [address] [place] [address] Phosphoruson 07-14-2021 Phosphate [Mass/Vol] 3.7 mg/dL Normal 2.5-4.5 [facility] Comment on above: Performed By: #### L FT3, CORTL, PTH3, HEMDF, PHOS3, MG3, BMP3 #### [address] #### VD25H #### [facility] [address] [place] [address] Basic Metabolic Panelon 07-03 Anion gap [Moles/Vol] 1 mmol/L Low 3-13 [facility] Comment on above: Performed By: #### L FT3, CORTL, PTH3, HEMDF, PHOS3, MG3, BMP3 #### [address] #### VD25H #### [facility] [address] [place] [address] Calcium [Mass/Vol] 8.0 mg/dL Low 8.4-10.4 [facility] Comment on above: Performed By: #### L FT3, CORTL, PTH3, HEMDF, PHOS3, MG3, BMP3 #### [place] [address] [place], [place] #### VD25H #### [facility] [address] [place] [address] CO2 [Moles/Vol] 24 mmol/L Normal 22-30 [facility] Comment on above: Performed By: #### L FT3, CORTL, PTH3, HEMDF, PHOS3, MG3, BMP3 #### [address] #### VD25H #### [place] [address] [place] [address] Glucose [Mass/Vol] 147 mg/dL High 70-100 [facility] Comment on above: Performed By: #### L FT3, CORTL, PTH3, HEMDF, PHOS3, MG3, BMP3 #### [address], [place] #### VD25H #### [place] [address] [place] [address] Urea nitrogen [Mass/Vol] 17 mg/dL Normal 9-20 [facility] Comment on above: Performed By: #### L FT3, CORTL, PTH3, HEMDF, PHOS3, MG3, BMP3 #### [place] [address] [facility], [place] #### VD25H #### [facility] [address] [place] [address] Creatinine [Mass/Vol] 0.45 mg/dL Low 0.52-1.25 [facility] Comment on above: Performed By: #### L FT3, CORTL, PTH3, HEMDF, PHOS3, MG3, BMP3 #### [place] [address] [place], [place] #### VD25H #### [facility] [address] [place] [address] eGFR OTHER > 90.0 Normal >60 [facility] Comment on above: Result Comment: KDIG O guidelines provide the following GFR categories: Stage GFR(ml/min/1.73 m2) Terms G1 >=90 Normal or high G2 60-89 Mildly decreased* G3a 45-59 Mildly to moderately decreased G3b 30-44 Moderately to severely decreased G4 15-29 Severely decreased G5 <15 Kidney failure *Relative to young adult level. In the absence of evidence of kidney damage, neither GFR category G1 nor G2 fulfill the criteria for CKD. The CKD-EPI equation is validated in individuals 18 years of age and older. Currently the best equation for estimating glomerular filtration rate (GFR) from serum creatinine in children is the Bedside Glynn equation. It is less accurate in patients with extremes of muscle mass, restriction of dietary protein, ingestion of creatine, extra-renal metabolism of creatinine, or treatment with medications that affect renal tubular creatinine secretion. Performed By: #### L FT3, CORTL, PTH3, HEMDF, PHOS3, MG3, BMP3 #### [facility] [place] [address] [place], [place] #### VD25H #### [place] [address] [place] [address] GFR/1.73 sq M.predicted among blacks MDRD (S/P/Bld) [Vol rate/Area] mL/min/{1.73_m2} Normal >60 [facility] Comment on above: Performed By: #### L FT3, CORTL, PTH3, HEMDF, PHOS3, MG3, BMP3 #### [facility] [address] [place] [address] #### VD25H #### [facility] [address] [place] [address] Potassium [Moles/Vol] 4.1 mmol/L Normal 3.5-5.1 [facility] Comment on above: Performed By: #### L FT3, CORTL, PTH3, HEMDF, PHOS3, MG3, BMP3 #### [place] [address] [place], [place] #### VD25H #### [facility] [address] [place] [address] Sodium [Moles/Vol] 128 mmol/L Low 135-145 [facility] Comment on above: Performed By: #### L FT3, CORTL, PTH3, HEMDF, PHOS3, MG3, BMP3 #### [place] [address] [place], [place] #### VD25H #### [facility] [address] [place] [address] Chloride [Moles/Vol] 103 mmol/L Normal 98-107 [facility] Comment on above: Performed By: #### L FT3, CORTL, PTH3, HEMDF, PHOS3, MG3, BMP3 #### [place] [address] [place], [place] #### VD25H #### [facility] [address] [place] [address] Calcium [Mass/Vol] 7.9 mg/dL Low 8.4-10.4 [facility] Comment on above: Performed By: #### L FT3, CORTL, PTH3, HEMDF, PHOS3, MG3, BMP3 #### [place] [address] [facility] #### VD25H #### [facility] [address] [place] [address] Glucose [Mass/Vol] 102 mg/dL High 70-100 [facility] Comment on above: Performed By: #### L FT3, CORTL, PTH3, HEMDF, PHOS3, MG3, BMP3 #### [place] [address] [facility] #### VD25H #### [facility] [address] [place] [address] Anion gap [Moles/Vol] 0 mmol/L Low 3-13 [facility] Comment on above: Performed By: #### L FT3, CORTL, PTH3, HEMDF, PHOS3, MG3, BMP3 #### [place] [address] [place], [place] #### VD25H #### [facility] [address] [place] [address] CO2 [Moles/Vol] 24 mmol/L Normal 22-30 [facility] Comment on above: Performed By: #### L FT3, CORTL, PTH3, HEMDF, PHOS3, MG3, BMP3 #### [facility] [address] [place], [place] #### VD25H #### [facility] [address] [place] [address] Creatinine [Mass/Vol] 0.39 mg/dL Low 0.52-1.25 [facility] Comment on above: Performed By: #### L FT3, CORTL, PTH3, HEMDF, PHOS3, MG3, BMP3 #### [place] [address] [place], [place] #### VD25H #### [facility] [address] [place] [address] eGFR OTHER > 90.0 Normal >60 [facility] Comment on above: Result Comment: KDIG O guidelines provide the following GFR categories: Stage GFR(ml/min/1.73 m2) Terms G1 >=90 Normal or high G2 60-89 Mildly decreased* G3a 45-59 Mildly to moderately decreased G3b 30-44 Moderately to severely decreased G4 15-29 Severely decreased G5 <15 Kidney failure *Relative to young adult level. In the absence of evidence of kidney damage, neither GFR category G1 nor G2 fulfill the criteria for CKD. The CKD-EPI equation is validated in individuals 18 years of age and older. Currently the best equation for estimating glomerular filtration rate (GFR) from serum creatinine in children is the Bedside Glynn equation. It is less accurate in patients with extremes of muscle mass, restriction of dietary protein, ingestion of creatine, extra-renal metabolism of creatinine, or treatment with medications that affect renal tubular creatinine secretion. Performed By: #### L FT3, CORTL, PTH3, HEMDF, PHOS3, MG3, BMP3 #### [facility] [address] [place], [place] #### VD25H #### [facility] [address] [place] [address] GFR/1.73 sq M.predicted among blacks MDRD (S/P/Bld) [Vol rate/Area] mL/min/{1.73_m2} Normal >60 [facility] Comment on above: Performed By: #### L FT3, CORTL, PTH3, HEMDF, PHOS3, MG3, BMP3 #### [facility] [address] [place], [place] #### VD25H #### [facility] [address] [place] [address] Urea nitrogen [Mass/Vol] 11 mg/dL Normal 9-20 [facility] Comment on above: Performed By: #### L FT3, CORTL, PTH3, HEMDF, PHOS3, MG3, BMP3 #### [place] [address] [place], [place] #### VD25H #### [facility] [address] [place] [address] Chloride [Moles/Vol] 102 mmol/L Normal 98-107 [facility] Comment on above: Performed By: #### L FT3, CORTL, PTH3, HEMDF, PHOS3, MG3, BMP3 #### [place] [address] [place], [place] #### VD25H #### [facility] [address] [place] [address] Potassium [Moles/Vol] 4.1 mmol/L Normal 3.5-5.1 [facility] Comment on above: Performed By: #### L FT3, CORTL, PTH3, HEMDF, PHOS3, MG3, BMP3 #### [place] [address] [place], [place] #### VD25H #### [facility] [address] [place] [address] Sodium [Moles/Vol] 126 mmol/L Low 135-145 [facility] Comment on above: Performed By: #### L FT3, CORTL, PTH3, HEMDF, PHOS3, MG3, BMP3 #### [facility] [address] [place], [place] #### VD25H #### [facility] [address] [place] [address] CULTURE URINEon 07-13-2021 CULTURE URINE 1 Organism Klebsiell a pneumoniae >100,000 CFU/ml ---- 1 Organism ---- Antibiotic Result Intrp ---- Ampicillin(ALAN) R Cefazolin(ALAN) <= 4 S Ceftriaxone(ALAN) <= 1 S Cefepime(ALAN) <= 1 S Aztreonam(AALN) <= 1 S Amoxicillin/Clavulanic Acid(ALAN) 4 S Ampicillin/Sulbactam(ALAN) 4 S Pip/Tazobactam(ALAN) <= 4 S Meropenem(ALAN) <= 0.25 S Ciprofloxacin(ALAN) <= 0.25 S Trimeth/Sulfa(ALAN) <= 20 S Nitrofurantoin(ALAN) 32 S Gentamicin(ALAN) <= 1 S Amikacin(ALAN) <= 2 S Normal [facility] Comment on above: Performed By: #### L FT3, CORTL, PTH3, HEMDF, PHOS3, MG3, BMP3 #### [facility] [address] [place], [place] #### VD25H #### [facility] [address] [place] [address] Glucose,Bedsideon 07-13-2021 Glucose [Mass/Vol] 211 mg/dL High 70-100 [facility] Comment on above: Result Comment: Test performed by glucose meter. Results may be 10%-15% lower than serum/plasma values. (CLIA ID [id number]) Performed By: #### B GLU #### [facility] [address] Glucose [Mass/Vol] 113 mg/dL High 70-100 [facility] Comment on above: Result Comment: Test performed by glucose meter. Results may be 10%-15% lower than serum/plasma values. (CLIA ID [id number]) Performed By: #### L FT3, CORTL, PTH3, HEMDF, PHOS3, MG3, BMP3 #### [facility] [address] #### VD25H #### [facility] [address] [place] [address] Glucose [Mass/Vol] 157 mg/dL High 70-100 [facility] Comment on above: Result Comment: Test performed by glucose meter. Results may be 10%-15% lower than serum/plasma values. (CLIA ID [id number]) Performed By: #### L FT3, CORTL, PTH3, HEMDF, PHOS3, MG3, BMP3 #### [facility] [address] #### VD25H #### [facility] [address] [place] [address] Glucose [Mass/Vol] 277 mg/dL High 70-100 [facility] Comment on above: Result Comment: Test performed by glucose meter. Results may be 10%-15% lower than serum/plasma values. (CLIA ID [id number]) Performed By: #### L FT3, CORTL, PTH3, HEMDF, PHOS3, MG3, BMP3 #### [facility] [address] #### VD25H #### [facility] [address] [place] [address] Hemogram w/ Autodiffon 07-13 Abs Baso Cnt 0.0 10*3/uL Normal 0.0-0.2 [facility] Comment on above: Performed By: #### L FT3, CORTL, PTH3, HEMDF, PHOS3, MG3, BMP3 #### [facility] [address], [place] #### VD25H #### [facility] [address] [place] [address] Abs Neutrophile Cnt 5.2 10*3/uL Normal 1.8-7.0 [facility] Comment on above: Performed By: #### L FT3, CORTL, PTH3, HEMDF, PHOS3, MG3, BMP3 #### [address] #### VD25H #### [facility] [address] [place] [address] Basophils/100 WBC (Bld) 0.6 % Normal 0.0-2.0 [facility] Comment on above: Performed By: #### L FT3, CORTL, PTH3, HEMDF, PHOS3, MG3, BMP3 #### [address] #### VD25H #### [facility] [address] [place] [address] Eosinophils (Bld) [#/Vol] 0.0 10*3/uL Normal 0.0-0.5 [facility] Comment on above: Performed By: #### L FT3, CORTL, PTH3, HEMDF, PHOS3, MG3, BMP3 #### [address] [place], [place] #### VD25H #### [facility] [address] [place] [address] Eosinophils/100 WBC (Bld) 0.4 % Low 1.0-6.0 [facility] Comment on above: Performed By: #### L FT3, CORTL, PTH3, HEMDF, PHOS3, MG3, BMP3 #### [address] #### VD25H #### [facility] [address] [place] [address] Erythrocyte distribution width (RBC) [Ratio] 14.7 % High 11.5-14.5 [facility] Comment on above: Performed By: #### L FT3, CORTL, PTH3, HEMDF, PHOS3, MG3, BMP3 #### [address] #### VD25H #### [facility] [address] [place] [address] Granulocytes/100 WBC (Bld) 75.7 % Normal 40.0-80.0 [facility] Comment on above: Performed By: #### L FT3, CORTL, PTH3, HEMDF, PHOS3, MG3, BMP3 #### [address] #### VD25H #### [place] [address] [place] [address] Hematocrit (Bld) [Volume fraction] 27.5 % Low 35.0-47.0 [facility] Comment on above: Performed By: #### L FT3, CORTL, PTH3, HEMDF, PHOS3, MG3, BMP3 #### [address] #### VD25H #### [place] [address] [place] [address] Hemoglobin (Bld) [Mass/Vol] 9.3 g/dL Low 11.7-16.0 [facility] Comment on above: Performed By: #### L FT3, CORTL, PTH3, HEMDF, PHOS3, MG3, BMP3 #### [address] #### VD25H #### [place] [address] [place] [address] Lymphocytes (Bld) [#/Vol] 1.1 10*3/uL Normal 1.0-4.3 [facility] Comment on above: Performed By: #### L FT3, CORTL, PTH3, HEMDF, PHOS3, MG3, BMP3 #### [facility] [address] [place], [place] #### VD25H #### [facility] [address] [place] [address] Lymphocytes/100 WBC (Bld) 16.5 % Low 20.0-40.0 [facility] Comment on above: Performed By: #### L FT3, CORTL, PTH3, HEMDF, PHOS3, MG3, BMP3 #### [facility] [address] [place], [place] #### VD25H #### [facility] [address] [place] [address] MCH (RBC) [Entitic mass] 31.5 pg Normal 26.0-34.0 [facility] Comment on above: Performed By: #### L FT3, CORTL, PTH3, HEMDF, PHOS3, MG3, BMP3 #### [address] #### VD25H #### [facility] [address] [place] [address] MCHC 33.8 % Normal 32.0-36.0 [facility] Comment on above: Performed By: #### L FT3, CORTL, PTH3, HEMDF, PHOS3, MG3, BMP3 #### [address] #### VD25H #### [facility] [address] [place] [address] MCV (RBC) [Entitic vol] 93.2 fL Normal 79.0-98.0 [facility] Comment on above: Performed By: #### L FT3, CORTL, PTH3, HEMDF, PHOS3, MG3, BMP3 #### [address] [place], [place] #### VD25H #### [facility] [address] [place] [address] Monocytes (Bld) [#/Vol] 0.5 10*3/uL Normal 0.0-0.8 [facility] Comment on above: Performed By: #### L FT3, CORTL, PTH3, HEMDF, PHOS3, MG3, BMP3 #### [facility] [address] [place], [place] #### VD25H #### [facility] [address] [place] [address] Monocytes/100 WBC (Bld) 6.8 % Normal 2.0-10.0 [facility] Comment on above: Performed By: #### L FT3, CORTL, PTH3, HEMDF, PHOS3, MG3, BMP3 #### [place] [address] [place], [place] #### VD25H #### [facility] [address] [place] [address] Platelet mean volume (Bld) [Entitic vol] 6.4 fL Low 7.4-10.4 [facility] Comment on above: Performed By: #### L FT3, CORTL, PTH3, HEMDF, PHOS3, MG3, BMP3 #### [facility] [address] [facility] #### VD25H #### [facility] [address] [place] [address] Platelets (Bld) [#/Vol] 281 10*3/uL Normal 140-440 [facility] Comment on above: Performed By: #### L FT3, CORTL, PTH3, HEMDF, PHOS3, MG3, BMP3 #### [facility] [address] [facility] #### VD25H #### [facility] [address] [place] [address] RBC (Bld) [#/Vol] 2.95 10*6/uL Low 3.80-5.20 [facility] Comment on above: Performed By: #### L FT3, CORTL, PTH3, HEMDF, PHOS3, MG3, BMP3 #### [place] [address] [facility] #### VD25H #### [facility] [address] [place] [address] WBC (Bld) [#/Vol] 6.9 10*3/uL Normal 3.6-10.7 [facility] Comment on above: Performed By: #### L FT3, CORTL, PTH3, HEMDF, PHOS3, MG3, BMP3 #### [address] #### VD25H #### [facility] [address] [place] [address] Magnesiumon 07-13-2021 Magnesium [Mass/Vol] 2.1 mg/dL Normal 1.6-2.3 [facility] Comment on above: Performed By: #### L FT3, CORTL, PTH3, HEMDF, PHOS3, MG3, BMP3 #### [address] #### VD25H #### [place] [address] [place] [address] Osmolality,Urineon 2 Osmolality,Urine 380 mosm/kg Normal 300-1000 [facility] Comment on above: Performed By: #### L FT3, CORTL, PTH3, HEMDF, PHOS3, MG3, BMP3 #### [address] #### VD25H #### [place] [address] [place] [address] Phosphoruson 07-13-2021 Phosphate [Mass/Vol] 3.1 mg/dL Normal 2.5-4.5 [facility] Comment on above: Performed By: #### L FT3, CORTL, PTH3, HEMDF, PHOS3, MG3, BMP3 #### [address] #### VD25H #### [facility] [address] [place] [address] Sodium, Ur Randomon 07-13-19 22 Sodium [Moles/Vol] 100 mmol/L High 30-90 [facility] Comment on above: Performed By: #### L FT3, CORTL, PTH3, HEMDF, PHOS3, MG3, BMP3 #### [facility] [address] [facility] #### VD25H #### [facility] [address] [place] [address] Add on test from HISon 07-12 Add on test from HIS Accepted Normal [facility] Comment on above: Result Comment: Spec imen available & acceptable for analysis. Performed By: #### L FT3, CORTL, PTH3, HEMDF, PHOS3, MG3, BMP3 #### [place] [address] [address] [facility] [place] #### VD25H #### [facility] [address] [place] [address] Basic Metabolic Panelon 07-03 Calcium [Mass/Vol] 6.7 mg/dL Low 8.4-10.4 [facility] Comment on above: Performed By: #### L FT3, CORTL, PTH3, HEMDF, PHOS3, MG3, BMP3 #### [place] [address] [address] [facility] [place] #### VD25H #### [facility] [address] [place] [address] Glucose [Mass/Vol] 109 mg/dL High 70-100 [facility] Comment on above: Performed By: #### L FT3, CORTL, PTH3, HEMDF, PHOS3, MG3, BMP3 #### [facility] [address] [facility] [place] #### VD25H #### [facility] [address] [place] [address] Urea nitrogen [Mass/Vol] 12 mg/dL Normal 9-20 [facility] Comment on above: Performed By: #### L FT3, CORTL, PTH3, HEMDF, PHOS3, MG3, BMP3 #### [facility] [address] [facility] [place] #### VD25H #### [facility] [address] [place] [address] Anion gap [Moles/Vol] 4 mmol/L Normal 3-13 [facility] Comment on above: Performed By: #### L FT3, CORTL, PTH3, HEMDF, PHOS3, MG3, BMP3 #### [facility] [address] [place] [address] #### VD25H #### [facility] [address] [place] [address] CO2 [Moles/Vol] 22 mmol/L Normal 22-30 [facility] Comment on above: Performed By: #### L FT3, CORTL, PTH3, HEMDF, PHOS3, MG3, BMP3 #### [facility] [address] [place] [address] #### VD25H #### [facility] [address] [place] [address] Creatinine [Mass/Vol] 0.38 mg/dL Low 0.52-1.25 [facility] Comment on above: Performed By: #### L FT3, CORTL, PTH3, HEMDF, PHOS3, MG3, BMP3 #### [facility] [address] [place] [address] #### VD25H #### [facility] [address] [place] [address] eGFR OTHER > 90.0 Normal >60 [facility] Comment on above: Result Comment: KDIG O guidelines provide the following GFR categories: Stage GFR(ml/min/1.73 m2) Terms G1 >=90 Normal or high G2 60-89 Mildly decreased* G3a 45-59 Mildly to moderately decreased G3b 30-44 Moderately to severely decreased G4 15-29 Severely decreased G5 <15 Kidney failure *Relative to young adult level. In the absence of evidence of kidney damage, neither GFR category G1 nor G2 fulfill the criteria for CKD. The CKD-EPI equation is validated in individuals 18 years of age and older. Currently the best equation for estimating glomerular filtration rate (GFR) from serum creatinine in children is the Bedside Glynn equation. It is less accurate in patients with extremes of muscle mass, restriction of dietary protein, ingestion of creatine, extra-renal metabolism of creatinine, or treatment with medications that affect renal tubular creatinine secretion. Performed By: #### L FT3, CORTL, PTH3, HEMDF, PHOS3, MG3, BMP3 #### [facility] [address] [place], [place] #### [id number] #### [facility] [address] [place] [address] GFR/1.73 sq M.predicted among blacks MDRD (S/P/Bld) [Vol rate/Area] mL/min/{1.73_m2} Normal >60 [facility] Comment on above: Performed By: #### L FT3, CORTL, PTH3, HEMDF, PHOS3, MG3, BMP3 #### [place] [address] [address] [place], [place] #### [id number] #### [facility] [address] [place] [address] Chloride [Moles/Vol] 103 mmol/L Normal 98-107 [facility] Comment on above: Performed By: #### L FT3, CORTL, PTH3, HEMDF, PHOS3, MG3, BMP3 #### [place] [address] [address] [place], [place] #### [id number] #### [facility] [address] [place] [address] Potassium [Moles/Vol] 3.5 mmol/L Normal 3.5-5.1 [facility] Comment on above: Performed By: #### L FT3, CORTL, PTH3, HEMDF, PHOS3, MG3, BMP3 #### [facility] [address] [place], [place] #### VD25H #### [facility] [address] [place] [address] Sodium [Moles/Vol] 129 mmol/L Low 135-145 [facility] Comment on above: Performed By: #### L FT3, CORTL, PTH3, HEMDF, PHOS3, MG3, BMP3 #### [place] [address] [address] [place], [place] #### VD25H #### [facility] [address] [place] [address] Calcium,Ionizedon 07-12-2021 Ionized Ca,Measured 3.80 mg/dL Low 4.30-5.20 [facility] Comment on above: Performed By: #### H EMDF, TROPN, OSM, CMP3, ETOH4, HA1C2 #### [facility] [address] [place], [place] pH, Ionized Calcium 7.40 Normal 7.31-7.46 [facility] Comment on above: Performed By: #### H EMDF, TROPN, OSM, CMP3, ETOH4, HA1C2 #### [address] Cortisolon 07-12-2021 Cortisol 23.6 ug/dL Normal [facility] Comment on above: Result Comment: Befo re 10am 4.5-22.7 ug/dL After 5pm 1.7-14.1 ug/dL Performed By: #### L FT3, CORTL, PTH3, HEMDF, PHOS3, MG3, BMP3 #### [address] #### VD25H #### [facility] [address] [place] [address] Cortisol 7.8 ug/dL Normal [facility] Comment on above: Result Comment: Befo re 10am 4.5-22.7 ug/dL After 5pm 1.7-14.1 ug/dL Performed By: #### L FT3, CORTL, PTH3, HEMDF, PHOS3, MG3, BMP3 #### [address] #### VD25H #### [facility] [address] [place] [address] Cortisol 8.7 ug/dL Normal [facility] Comment on above: Result Comment: Befo re 10am 4.5-22.7 ug/dL After 5pm 1.7-14.1 ug/dL Performed By: #### L FT3, CORTL, PTH3, HEMDF, PHOS3, MG3, BMP3 #### [address] #### VD25H #### [facility] [address] [place] [address] Glucose,Bedsideon 07-12-2021 Glucose [Mass/Vol] 128 mg/dL High 70-100 [facility] Comment on above: Result Comment: Test performed by glucose meter. Results may be 10%-15% lower than serum/plasma values. (CLIA ID [id number]) Performed By: #### L FT3, CORTL, PTH3, HEMDF, PHOS3, MG3, BMP3 #### [place] [address] [place], [place] #### VD25H #### [facility] [address] [place] [address] Glucose [Mass/Vol] 171 mg/dL High 70-100 [facility] Comment on above: Result Comment: Test performed by glucose meter. Results may be 10%-15% lower than serum/plasma values. (CLIA ID [id number]) Performed By: #### H EMDF, TROPN, OSM, CMP3, ETOH4, HA1C2 #### [facility] [address] Glucose [Mass/Vol] 96 mg/dL Normal 70-100 [facility] Comment on above: Result Comment: Test performed by glucose meter. Results may be 10%-15% lower than serum/plasma values. (CLIA ID [id number]) Performed By: #### H EMDF, TROPN, OSM, CMP3, ETOH4, HA1C2 #### [facility] [address] Hemogram w/ Autodiffon 07-12 Abs Baso Cnt 0.0 10*3/uL Normal 0.0-0.2 [facility] Comment on above: Performed By: #### L FT3, CORTL, PTH3, HEMDF, PHOS3, MG3, BMP3 #### [facility] [place] [address] [place], [place] #### VD25H #### [facility] [address] [place] [address] Abs Neutrophile Cnt 5.8 10*3/uL Normal 1.8-7.0 [facility] Comment on above: Performed By: #### L FT3, CORTL, PTH3, HEMDF, PHOS3, MG3, BMP3 #### [address] #### VD25H #### [facility] [address] [place] [address] Basophils/100 WBC (Bld) 0.5 % Normal 0.0-2.0 [facility] Comment on above: Performed By: #### L FT3, CORTL, PTH3, HEMDF, PHOS3, MG3, BMP3 #### [address] #### VD25H #### [place] [address] [place] [address] Eosinophils (Bld) [#/Vol] 0.0 10*3/uL Normal 0.0-0.5 [facility] Comment on above: Performed By: #### L FT3, CORTL, PTH3, HEMDF, PHOS3, MG3, BMP3 #### [address] #### VD25H #### [place] [address] [place] [address] Eosinophils/100 WBC (Bld) 0.2 % Low 1.0-6.0 [facility] Comment on above: Performed By: #### L FT3, CORTL, PTH3, HEMDF, PHOS3, MG3, BMP3 #### [address] #### VD25H #### [place] [address] [place] [address] Erythrocyte distribution width (RBC) [Ratio] 14.6 % High 11.5-14.5 [facility] Comment on above: Performed By: #### L FT3, CORTL, PTH3, HEMDF, PHOS3, MG3, BMP3 #### [address] [place], [place] #### VD25H #### [facility] [address] [place] [address] Granulocytes/100 WBC (Bld) 81.5 % High 40.0-80.0 [facility] Comment on above: Performed By: #### L FT3, CORTL, PTH3, HEMDF, PHOS3, MG3, BMP3 #### [address] [place], [place] #### VD25H #### [facility] [address] [place] [address] Hematocrit (Bld) [Volume fraction] 25.9 % Low 35.0-47.0 [facility] Comment on above: Performed By: #### L FT3, CORTL, PTH3, HEMDF, PHOS3, MG3, BMP3 #### [address] #### VD25H #### [facility] [address] [place] [address] Hemoglobin (Bld) [Mass/Vol] 8.8 g/dL Low 11.7-16.0 [facility] Comment on above: Performed By: #### L FT3, CORTL, PTH3, HEMDF, PHOS3, MG3, BMP3 #### [address] #### VD25H #### [facility] [address] [place] [address] Lymphocytes (Bld) [#/Vol] 0.8 10*3/uL Low 1.0-4.3 [facility] Comment on above: Performed By: #### L FT3, CORTL, PTH3, HEMDF, PHOS3, MG3, BMP3 #### [address] #### VD25H #### [facility] [address] [place] [address] Lymphocytes/100 WBC (Bld) 10.5 % Low 20.0-40.0 [facility] Comment on above: Performed By: #### L FT3, CORTL, PTH3, HEMDF, PHOS3, MG3, BMP3 #### [facility] [address] [place], [place] #### VD25H #### [facility] [address] [place] [address] MCH (RBC) [Entitic mass] 31.8 pg Normal 26.0-34.0 [facility] Comment on above: Performed By: #### L FT3, CORTL, PTH3, HEMDF, PHOS3, MG3, BMP3 #### [address] #### VD25H #### [facility] [address] [place] [address] MCHC 34.1 % Normal 32.0-36.0 [facility] Comment on above: Performed By: #### L FT3, CORTL, PTH3, HEMDF, PHOS3, MG3, BMP3 #### [address] #### VD25H #### [facility] [address] [place] [address] MCV (RBC) [Entitic vol] 93.2 fL Normal 79.0-98.0 [facility] Comment on above: Performed By: #### L FT3, CORTL, PTH3, HEMDF, PHOS3, MG3, BMP3 #### [address] #### VD25H #### [facility] [address] [place] [address] Monocytes (Bld) [#/Vol] 0.5 10*3/uL Normal 0.0-0.8 [facility] Comment on above: Performed By: #### L FT3, CORTL, PTH3, HEMDF, PHOS3, MG3, BMP3 #### [address] #### VD25H #### [facility] [address] [place] [address] Monocytes/100 WBC (Bld) 7.3 % Normal 2.0-10.0 [facility] Comment on above: Performed By: #### L FT3, CORTL, PTH3, HEMDF, PHOS3, MG3, BMP3 #### [address] #### VD25H #### [facility] [address] [place] [address] Platelet mean volume (Bld) [Entitic vol] 6.3 fL Low 7.4-10.4 [facility] Comment on above: Performed By: #### L FT3, CORTL, PTH3, HEMDF, PHOS3, MG3, BMP3 #### [address] #### VD25H #### [place] [address] [place] [address] Platelets (Bld) [#/Vol] 267 10*3/uL Normal 140-440 [facility] Comment on above: Performed By: #### L FT3, CORTL, PTH3, HEMDF, PHOS3, MG3, BMP3 #### [address] #### VD25H #### [facility] [address] [place] [address] RBC (Bld) [#/Vol] 2.77 10*6/uL Low 3.80-5.20 [facility] Comment on above: Performed By: #### L FT3, CORTL, PTH3, HEMDF, PHOS3, MG3, BMP3 #### [address] #### VD25H #### [facility] [address] [place] [address] WBC (Bld) [#/Vol] 7.2 10*3/uL Normal 3.6-10.7 [facility] Comment on above: Performed By: #### L FT3, CORTL, PTH3, HEMDF, PHOS3, MG3, BMP3 #### [address] [place], [place] #### VD25H #### [facility] [address] [place] [address] Hepatic Functionon 2 ALP [Catalytic activity/Vol] 83 U/L Normal 38-126 [facility] Comment on above: Performed By: #### L FT3, CORTL, PTH3, HEMDF, PHOS3, MG3, BMP3 #### [place] [address] [place], [place] #### VD25H #### [facility] [address] [place] [address] ALT [Catalytic activity/Vol] 16 U/L Normal 0-34 [facility] Comment on above: Result Comment: The ALT test is performed by an updated assay method. Please note that the reference intervals have been changed and are now sex specific. Performed By: #### L FT3, CORTL, PTH3, HEMDF, PHOS3, MG3, BMP3 #### [address] #### VD25H #### [place] [address] [place] [address] AST [Catalytic activity/Vol] 25 U/L Normal 15-46 [facility] Comment on above: Performed By: #### L FT3, CORTL, PTH3, HEMDF, PHOS3, MG3, BMP3 #### [address] #### VD25H #### [facility] [address] [place] [address] Bilirubin [Mass/Vol] 0.3 mg/dL Normal 0.2-1.3 [facility] Comment on above: Performed By: #### L FT3, CORTL, PTH3, HEMDF, PHOS3, MG3, BMP3 #### [address] #### VD25H #### [place] [address] [place] [address] Bilirubin.indirect [Mass/Vol] 0.0 mg/dL Normal 0.0-0.3 [facility] Comment on above: Performed By: #### L FT3, CORTL, PTH3, HEMDF, PHOS3, MG3, BMP3 #### [place] [address] [place], [place] #### VD25H #### [facility] [address] [place] [address] Protein [Mass/Vol] 4.9 g/dL Low 6.3-8.2 [facility] Comment on above: Performed By: #### L FT3, CORTL, PTH3, HEMDF, PHOS3, MG3, BMP3 #### [address] #### VD25H #### [facility] [address] [place] [address] Albumin [Mass/Vol] 2.6 g/dL Low 3.5-5.0 [facility] Comment on above: Performed By: #### L FT3, CORTL, PTH3, HEMDF, PHOS3, MG3, BMP3 #### [address] #### VD25H #### [facility] [address] [place] [address] Magnesiumon 07-12-2021 Magnesium [Mass/Vol] 2.2 mg/dL Normal 1.6-2.3 [facility] Comment on above: Performed By: #### L FT3, CORTL, PTH3, HEMDF, PHOS3, MG3, BMP3 #### [address] #### VD25H #### [facility] [address] [place] [address] PTH, Intacton 07-12-2021 PTH, Intact 236.5 pg/mL High 8.0-54.0 [facility] Comment on above: Performed By: #### L FT3, CORTL, PTH3, HEMDF, PHOS3, MG3, BMP3 #### [address] #### VD25H #### [facility] [address] [place] [address] Phosphoruson 07-12-2021 Phosphate [Mass/Vol] 2.6 mg/dL Normal 2.5-4.5 [facility] Comment on above: Performed By: #### L FT3, CORTL, PTH3, HEMDF, PHOS3, MG3, BMP3 #### [facility] [address] [place], [place] #### VD25H #### [facility] [address] [place] [address] Sodiumon 07-12-2021 Sodium [Moles/Vol] 126 mmol/L Low 135-145 [facility] Comment on above: Performed By: #### B GLU #### [place] [address] [address] [place], [place] Sodium [Moles/Vol] 129 mmol/L Low 135-145 [facility] Comment on above: Performed By: #### L FT3, CORTL, PTH3, HEMDF, PHOS3, MG3, BMP3 #### [place] [address] [address] [place], [place] #### VD25H #### [facility] [address] [place] [address] Vit D 25-OH, Totalon 022 Vit D 25-OH, Total 58 ng/mL Normal 30-100 [facility] Comment on above: Result Comment: Ther apy is based on measurement of Total 25-OHD with the following classification levels: Less than 20 ng/mL: Indicative of Vit D deficiency 20-30 ng/mL: Suggests Vit D insufficiency Optimal: Greater than or equal to 30 ng/mL Test performed by [employer] Immunoassay, measuring Total Vitamin D, not individual fractions. Performed By: #### L FT3, CORTL, PTH3, HEMDF, PHOS3, MG3, BMP3 #### [facility] [address] [facility] [place] #### VD25H #### [facility] [address] [place] [address] Basic Metabolic Panelon Calcium [Mass/Vol] 7.0 mg/dL Low 8.4-10.4 [facility] Comment on above: Performed By: #### L FT3, CORTL, PTH3, HEMDF, PHOS3, MG3, BMP3 #### [facility] [address] [place], [place] #### VD25H #### [facility] [address] [place] [address] Anion gap [Moles/Vol] 1 mmol/L Low 3-13 [facility] Comment on above: Performed By: #### L FT3, CORTL, PTH3, HEMDF, PHOS3, MG3, BMP3 #### [address] #### VD25H #### [facility] [address] [place] [address] CO2 [Moles/Vol] 24 mmol/L Normal 22-30 [facility] Comment on above: Performed By: #### L FT3, CORTL, PTH3, HEMDF, PHOS3, MG3, BMP3 #### [address] #### VD25H #### [facility] [address] [place] [address] Creatinine [Mass/Vol] 0.49 mg/dL Low 0.52-1.25 [facility] Comment on above: Performed By: #### L FT3, CORTL, PTH3, HEMDF, PHOS3, MG3, BMP3 #### [address] #### VD25H #### [facility] [address] [place] [address] eGFR OTHER > 90.0 Normal >60 [facility] Comment on above: Result Comment: KDIG O guidelines provide the following GFR categories: Stage GFR(ml/min/1.73 m2) Terms G1 >=90 Normal or high G2 60-89 Mildly decreased* G3a 45-59 Mildly to moderately decreased G3b 30-44 Moderately to severely decreased G4 15-29 Severely decreased G5 <15 Kidney failure *Relative to young adult level. In the absence of evidence of kidney damage, neither GFR category G1 nor G2 fulfill the criteria for CKD. The CKD-EPI equation is validated in individuals 18 years of age and older. Currently the best equation for estimating glomerular filtration rate (GFR) from serum creatinine in children is the Bedside Glynn equation. It is less accurate in patients with extremes of muscle mass, restriction of dietary protein, ingestion of creatine, extra-renal metabolism of creatinine, or treatment with medications that affect renal tubular creatinine secretion. Performed By: #### L FT3, CORTL, PTH3, HEMDF, PHOS3, MG3, BMP3 #### [address] [address] #### VD25H #### [facility] [address] [place] [address] GFR/1.73 sq M.predicted among blacks MDRD (S/P/Bld) [Vol rate/Area] mL/min/{1.73_m2} Normal >60 [facility] Comment on above: Performed By: #### L FT3, CORTL, PTH3, HEMDF, PHOS3, MG3, BMP3 #### [address] [address] #### VD25H #### [facility] [address] [place] [address] Glucose [Mass/Vol] 95 mg/dL Normal 70-100 [facility] Comment on above: Performed By: #### L FT3, CORTL, PTH3, HEMDF, PHOS3, MG3, BMP3 #### [address] [address] #### VD25H #### [facility] [address] [place] [address] Urea nitrogen [Mass/Vol] 14 mg/dL Normal 9-20 [facility] Comment on above: Performed By: #### L FT3, CORTL, PTH3, HEMDF, PHOS3, MG3, BMP3 #### [address] [address] #### VD25H #### [facility] [address] [place] [address] Potassium [Moles/Vol] 3.8 mmol/L Normal 3.5-5.1 [facility] Comment on above: Performed By: #### L FT3, CORTL, PTH3, HEMDF, PHOS3, MG3, BMP3 #### [facility] [address] [place], [place] #### VD25H #### [facility] [address] [place] [address] Sodium [Moles/Vol] 117 mmol/L Critically low 135-145 [facility] Comment on above: Performed By: #### L FT3, CORTL, PTH3, HEMDF, PHOS3, MG3, BMP3 #### [place] [address] [place], [place] #### VD25H #### [place] [address] [place] [address] Chloride [Moles/Vol] 92 mmol/L Low 98-107 [facility] Comment on above: Performed By: #### L FT3, CORTL, PTH3, HEMDF, PHOS3, MG3, BMP3 #### [address] #### VD25H #### [facility] [address] [place] [address] Complete Urinalysison 2021 Appearance (U) Turbid Abnormal Clear [facility] Comment on above: Result Comment: . Performed By: #### L FT3, CORTL, PTH3, HEMDF, PHOS3, MG3, BMP3 #### [address] [place], [place] #### VD25H #### [facility] [address] [place] [address] Bacteria Moderate Abnormal Negative [facility] Comment on above: Result Comment: . Performed By: #### L FT3, CORTL, PTH3, HEMDF, PHOS3, MG3, BMP3 #### [place] [address] [place], [place] #### VD25H #### [place] [address] [place] [address] Bilirubin,Urine Negative Normal Negative [facility] Comment on above: Result Comment: . Performed By: #### L FT3, CORTL, PTH3, HEMDF, PHOS3, MG3, BMP3 #### [facility] [address] [place], [place] #### VD25H #### [facility] [address] [place] [address] Cast, Hyaline Negative Normal Negative [facility] Comment on above: Result Comment: . Performed By: #### L FT3, CORTL, PTH3, HEMDF, PHOS3, MG3, BMP3 #### [address] #### VD25H #### [facility] [address] [place] [address] Color (U) Light-Yellow Normal Lt. Yellow [facility] Comment on above: Result Comment: . Performed By: #### L FT3, CORTL, PTH3, HEMDF, PHOS3, MG3, BMP3 #### [address] #### VD25H #### [facility] [address] [place] [address] Glucose Ql (U) Normal Normal Normal (<70) [facility] Comment on above: Result Comment: . Performed By: #### L FT3, CORTL, PTH3, HEMDF, PHOS3, MG3, BMP3 #### [place] [address] [address] [place], [place] #### VD25H #### [facility] [address] [place] [address] Ketone,Urine Negative Normal Negative [facility] Comment on above: Result Comment: . Performed By: #### L FT3, CORTL, PTH3, HEMDF, PHOS3, MG3, BMP3 #### [place] [address] [place], [place] #### VD25H #### [facility] [address] [place] [address] Leukocytes,Urine 500 Marquez/uL Abnormal Negative [facility] Comment on above: Result Comment: . Performed By: #### L FT3, CORTL, PTH3, HEMDF, PHOS3, MG3, BMP3 #### [facility] [address] [place], [place] #### VD25H #### [facility] [address] [place] [address] Mucous Threads Few Normal Negative [facility] Comment on above: Result Comment: . Performed By: #### L FT3, CORTL, PTH3, HEMDF, PHOS3, MG3, BMP3 #### [place] [address] [address] [place], [place] #### VD25H #### [facility] [address] [place] [address] Nitrites,Urine Negative Normal Negative [facility] Comment on above: Result Comment: . Performed By: #### L FT3, CORTL, PTH3, HEMDF, PHOS3, MG3, BMP3 #### [place] [address] [place], [place] #### VD25H #### [facility] [address] [place] [address] Occult Blood,Urine 0.06 mg/dL Abnormal Negative [facility] Comment on above: Result Comment: . Performed By: #### L FT3, CORTL, PTH3, HEMDF, PHOS3, MG3, BMP3 #### [facility] [address] [place], [place] #### VD25H #### [facility] [address] [place] [address] pH,Urine 6.0 Normal 5.0-8.0 [facility] Comment on above: Result Comment: . Performed By: #### L FT3, CORTL, PTH3, HEMDF, PHOS3, MG3, BMP3 #### [facility] [address] [place], [place] #### VD25H #### [facility] [address] [place] [address] Protein (U) [Mass/Vol] 30 mg/dL Abnormal Negative [facility] Comment on above: Result Comment: . Performed By: #### L FT3, CORTL, PTH3, HEMDF, PHOS3, MG3, BMP3 #### [facility] [address] [place], [place] #### VD25H #### [facility] [address] [place] [address] RBC, Urine 6 - 10 Abnormal 0-2 [facility] Comment on above: Result Comment: . Performed By: #### L FT3, CORTL, PTH3, HEMDF, PHOS3, MG3, BMP3 #### [place] [address] [address] [place], [place] #### VD25H #### [facility] [address] [place] [address] Specific [place],Urine 1.007 Normal 1.005 - 1.030 [facility] Comment on above: Result Comment: . Performed By: #### L FT3, CORTL, PTH3, HEMDF, PHOS3, MG3, BMP3 #### [place] [address] [address] [place], [place] #### VD25H #### [facility] [address] [place] [address] Squamous Epithelial 3 - 5 Normal 3-5 [facility] Comment on above: Result Comment: . Performed By: #### L FT3, CORTL, PTH3, HEMDF, PHOS3, MG3, BMP3 #### [facility] [address] [place], [place] #### VD25H #### [facility] [address] [place] [address] Urobilinogen,Urine Normal Normal Normal (0-1) [facility] Comment on above: Result Comment: . Performed By: #### L FT3, CORTL, PTH3, HEMDF, PHOS3, MG3, BMP3 #### [facility] [address] [place], [place] #### VD25H #### [facility] [address] [place] [address] WBC, Urine 51 - 100 Abnormal 0-5 [facility] Comment on above: Result Comment: . Performed By: #### L FT3, CORTL, PTH3, HEMDF, PHOS3, MG3, BMP3 #### [facility] [address] [place], [place] #### VD25H #### [facility] [address] [place] [address] Free T4on 07-11-2021 Free T4 [Mass/Vol] 1.57 ng/dL Normal 0.78-2.19 [facility] Comment on above: Performed By: #### L FT3, CORTL, PTH3, HEMDF, PHOS3, MG3, BMP3 #### [facility] [address] [place], [place] #### VD25H #### [facility] [address] [place] [address] Glucose,Bedsideon 07-11-2021 Glucose [Mass/Vol] 104 mg/dL High 70-100 [facility] Comment on above: Result Comment: Test performed by glucose meter. Results may be 10%-15% lower than serum/plasma values. (CLIA ID [id number]) Performed By: #### B GLU #### [facility] [address] Glucose [Mass/Vol] 128 mg/dL High 70-100 [facility] Comment on above: Result Comment: Test performed by glucose meter. Results may be 10%-15% lower than serum/plasma values. (CLIA ID [id number]) Performed By: #### L FT3, CORTL, PTH3, HEMDF, PHOS3, MG3, BMP3 #### [facility] [address] [place], [place] #### VD25H #### [facility] [address] [place] [address] Glucose [Mass/Vol] 139 mg/dL High 70-100 [facility] Comment on above: Result Comment: Test performed by glucose meter. Results may be 10%-15% lower than serum/plasma values. (CLIA ID [id number]) Performed By: #### L FT3, CORTL, PTH3, HEMDF, PHOS3, MG3, BMP3 #### [address] #### VD25H #### [facility] [address] [place] [address] Hemogram w/ Autodiffon 07-11 Abs Baso Cnt 0.0 10*3/uL Normal 0.0-0.2 [facility] Comment on above: Performed By: #### L FT3, CORTL, PTH3, HEMDF, PHOS3, MG3, BMP3 #### [address] #### VD25H #### [facility] [address] [place] [address] Abs Neutrophile Cnt 7.0 10*3/uL Normal 1.8-7.0 [facility] Comment on above: Performed By: #### L FT3, CORTL, PTH3, HEMDF, PHOS3, MG3, BMP3 #### [address] #### VD25H #### [facility] [address] [place] [address] Basophils/100 WBC (Bld) 0.3 % Normal 0.0-2.0 [facility] Comment on above: Performed By: #### L FT3, CORTL, PTH3, HEMDF, PHOS3, MG3, BMP3 #### [address] #### [id number] #### [facility] [address] [place] [address] Eosinophils (Bld) [#/Vol] 0.0 10*3/uL Normal 0.0-0.5 [facility] Comment on above: Performed By: #### L FT3, CORTL, PTH3, HEMDF, PHOS3, MG3, BMP3 #### [address] #### [id number] #### [facility] [address] [place] [address] Eosinophils/100 WBC (Bld) 0.2 % Low 1.0-6.0 [facility] Comment on above: Performed By: #### L FT3, CORTL, PTH3, HEMDF, PHOS3, MG3, BMP3 #### [address] #### [id number] #### [facility] [address] [place] [address] Erythrocyte distribution width (RBC) [Ratio] 14.5 % Normal 11.5-14.5 [facility] Comment on above: Performed By: #### L FT3, CORTL, PTH3, HEMDF, PHOS3, MG3, BMP3 #### [address] #### [id number] #### [place] [address] [place] [address] Granulocytes/100 WBC (Bld) 81.7 % High 40.0-80.0 [facility] Comment on above: Performed By: #### L FT3, CORTL, PTH3, HEMDF, PHOS3, MG3, BMP3 #### [address] #### [id number] #### [facility] [address] [place] [address] Hematocrit (Bld) [Volume fraction] 28.2 % Low 35.0-47.0 [facility] Comment on above: Performed By: #### L FT3, CORTL, PTH3, HEMDF, PHOS3, MG3, BMP3 #### [address] #### VD25H #### [facility] [address] [place] [address] Hemoglobin (Bld) [Mass/Vol] 9.7 g/dL Low 11.7-16.0 [facility] Comment on above: Performed By: #### L FT3, CORTL, PTH3, HEMDF, PHOS3, MG3, BMP3 #### [facility] [address] [place], [place] #### VD25H #### [facility] [address] [place] [address] Lymphocytes (Bld) [#/Vol] 0.9 10*3/uL Low 1.0-4.3 [facility] Comment on above: Performed By: #### L FT3, CORTL, PTH3, HEMDF, PHOS3, MG3, BMP3 #### [address] #### VD25H #### [facility] [address] [place] [address] Lymphocytes/100 WBC (Bld) 10.3 % Low 20.0-40.0 [facility] Comment on above: Performed By: #### L FT3, CORTL, PTH3, HEMDF, PHOS3, MG3, BMP3 #### [address] #### VD25H #### [facility] [address] [place] [address] MCH (RBC) [Entitic mass] 31.6 pg Normal 26.0-34.0 [facility] Comment on above: Performed By: #### L FT3, CORTL, PTH3, HEMDF, PHOS3, MG3, BMP3 #### [address] #### VD25H #### [facility] [address] [place] [address] MCHC 34.4 % Normal 32.0-36.0 [facility] Comment on above: Performed By: #### L FT3, CORTL, PTH3, HEMDF, PHOS3, MG3, BMP3 #### [address] #### VD25H #### [facility] [address] [place] [address] MCV (RBC) [Entitic vol] 91.7 fL Normal 79.0-98.0 [facility] Comment on above: Performed By: #### L FT3, CORTL, PTH3, HEMDF, PHOS3, MG3, BMP3 #### [facility] [address] [place], [place] #### VD25H #### [facility] [address] [place] [address] Monocytes (Bld) [#/Vol] 0.6 10*3/uL Normal 0.0-0.8 [facility] Comment on above: Performed By: #### L FT3, CORTL, PTH3, HEMDF, PHOS3, MG3, BMP3 #### [address] [address] [address] [place], [place] #### VD25H #### [facility] [address] [place] [address] Monocytes/100 WBC (Bld) 7.5 % Normal 2.0-10.0 [facility] Comment on above: Performed By: #### L FT3, CORTL, PTH3, HEMDF, PHOS3, MG3, BMP3 #### [address] #### VD25H #### [facility] [address] [place] [address] Platelet mean volume (Bld) [Entitic vol] 6.5 fL Low 7.4-10.4 [facility] Comment on above: Performed By: #### L FT3, CORTL, PTH3, HEMDF, PHOS3, MG3, BMP3 #### [facility] [address] [place], [place] #### VD25H #### [facility] [address] [place] [address] Platelets (Bld) [#/Vol] 284 10*3/uL Normal 140-440 [facility] Comment on above: Performed By: #### L FT3, CORTL, PTH3, HEMDF, PHOS3, MG3, BMP3 #### [address] [address] [place], [place] #### VD25H #### [facility] [address] [place] [address] RBC (Bld) [#/Vol] 3.08 10*6/uL Low 3.80-5.20 [facility] Comment on above: Performed By: #### L FT3, CORTL, PTH3, HEMDF, PHOS3, MG3, BMP3 #### [address] #### VD25H #### [facility] [address] [place] [address] WBC (Bld) [#/Vol] 8.6 10*3/uL Normal 3.6-10.7 [facility] Comment on above: Performed By: #### L FT3, CORTL, PTH3, HEMDF, PHOS3, MG3, BMP3 #### [address] #### VD25H #### [facility] [address] [place] [address] Hepatic Functionon 2 ALP [Catalytic activity/Vol] 92 U/L Normal 38-126 [facility] Comment on above: Performed By: #### L FT3, CORTL, PTH3, HEMDF, PHOS3, MG3, BMP3 #### [address] #### VD25H #### [facility] [address] [place] [address] ALT [Catalytic activity/Vol] 17 U/L Normal 0-34 [facility] Comment on above: Result Comment: The ALT test is performed by an updated assay method. Please note that the reference intervals have been changed and are now sex specific. Performed By: #### L FT3, CORTL, PTH3, HEMDF, PHOS3, MG3, BMP3 #### [address] #### VD25H #### [facility] [address] [place] [address] AST [Catalytic activity/Vol] 28 U/L Normal 15-46 [facility] Comment on above: Performed By: #### L FT3, CORTL, PTH3, HEMDF, PHOS3, MG3, BMP3 #### [address] #### VD25H #### [facility] [address] [place] [address] Bilirubin [Mass/Vol] 0.4 mg/dL Normal 0.2-1.3 [facility] Comment on above: Performed By: #### L FT3, CORTL, PTH3, HEMDF, PHOS3, MG3, BMP3 #### [address] #### VD25H #### [facility] [address] [place] [address] Bilirubin.indirect [Mass/Vol] 0.0 mg/dL Normal 0.0-0.3 [facility] Comment on above: Performed By: #### L FT3, CORTL, PTH3, HEMDF, PHOS3, MG3, BMP3 #### [address] #### VD25H #### [facility] [address] [place] [address] Protein [Mass/Vol] 5.4 g/dL Low 6.3-8.2 [facility] Comment on above: Performed By: #### L FT3, CORTL, PTH3, HEMDF, PHOS3, MG3, BMP3 #### [address] #### VD25H #### [facility] [address] [place] [address] Albumin [Mass/Vol] 2.9 g/dL Low 3.5-5.0 [facility] Comment on above: Performed By: #### L FT3, CORTL, PTH3, HEMDF, PHOS3, MG3, BMP3 #### [address] #### VD25H #### [facility] [address] [place] [address] Magnesiumon 07-11-2021 Magnesium [Mass/Vol] 2.1 mg/dL Normal 1.6-2.3 [facility] Comment on above: Performed By: #### B GLU #### [address] [address] [place], [place] Osmolality,Urineon 2 Osmolality,Urine 193 mosm/kg Low 300-1000 [facility] Comment on above: Performed By: #### L FT3, CORTL, PTH3, HEMDF, PHOS3, MG3, BMP3 #### [address] #### VD25H #### [facility] [address] [facility] [place] [address] Phosphoruson 07-11-2021 Phosphate [Mass/Vol] 2.9 mg/dL Normal 2.5-4.5 [facility] Comment on above: Performed By: #### B GLU #### [address] Sodiumon 07-11-2021 Sodium [Moles/Vol] 123 mmol/L Low 135-145 [facility] Comment on above: Performed By: #### L FT3, CORTL, PTH3, HEMDF, PHOS3, MG3, BMP3 #### [address] #### VD25H #### [facility] [address] [facility] [place] [address] Sodium [Moles/Vol] 120 mmol/L Low 135-145 [facility] Comment on above: Performed By: #### L FT3, CORTL, PTH3, HEMDF, PHOS3, MG3, BMP3 #### [address] #### VD25H #### [facility] [address] [facility] [place] [address] Sodium [Moles/Vol] 121 mmol/L Low 135-145 [facility] Comment on above: Performed By: #### L FT3, CORTL, PTH3, HEMDF, PHOS3, MG3, BMP3 #### [address] [place], [place] #### VD25H #### [facility] [address] [place] [address] Sodium [Moles/Vol] 115 mmol/L Critically low 135-145 [facility] Comment on above: Performed By: #### B GLU #### [address] [address] [address] [place], [place] Sodium, Ur Randomon 07-11-19 22 Sodium [Moles/Vol] 6 mmol/L Low 30-90 [facility] Comment on above: Performed By: #### L FT3, CORTL, PTH3, HEMDF, PHOS3, MG3, BMP3 #### [address] [address] [address] [address] [place], [place] #### VD25H #### [facility] [address] [place] [address] Thyroid Stim. Hormoneon Thyroid Stim. Hormone 0.338 u[IU]/mL Low 0.46 5-4.68 0 [facility] Comment on above: Performed By: #### B GLU #### [address] [address] [address] [address] [place], [place] Basic Metabolic Panelon Calcium [Mass/Vol] 8.1 mg/dL Low 8.4-10.4 [facility] Comment on above: Performed By: #### L FT3, CORTL, PTH3, HEMDF, PHOS3, MG3, BMP3 #### [facility] [address] [facility], [place] #### VD25H #### [facility] [address] [place] [address] Anion gap [Moles/Vol] 5 mmol/L Normal 3-13 [facility] Comment on above: Performed By: #### L FT3, CORTL, PTH3, HEMDF, PHOS3, MG3, BMP3 #### [place] [address] [address] [facility] #### VD25H #### [facility] [address] [place] [address] CO2 [Moles/Vol] 24 mmol/L Normal 22-30 [facility] Comment on above: Performed By: #### L FT3, CORTL, PTH3, HEMDF, PHOS3, MG3, BMP3 #### [facility] [address] [place], [place] #### VD25H #### [facility] [address] [place] [address] Creatinine [Mass/Vol] 0.40 mg/dL Low 0.52-1.25 [facility] Comment on above: Performed By: #### L FT3, CORTL, PTH3, HEMDF, PHOS3, MG3, BMP3 #### [facility] [address] [place], [place] #### VD25H #### [facility] [address] [place] [address] eGFR OTHER > 90.0 Normal >60 [facility] Comment on above: Result Comment: KDIG O guidelines provide the following GFR categories: Stage GFR(ml/min/1.73 m2) Terms G1 >=90 Normal or high G2 60-89 Mildly decreased* G3a 45-59 Mildly to moderately decreased G3b 30-44 Moderately to severely decreased G4 15-29 Severely decreased G5 <15 Kidney failure *Relative to young adult level. In the absence of evidence of kidney damage, neither GFR category G1 nor G2 fulfill the criteria for CKD. The CKD-EPI equation is validated in individuals 18 years of age and older. Currently the best equation for estimating glomerular filtration rate (GFR) from serum creatinine in children is the Bedside Glynn equation. It is less accurate in patients with extremes of muscle mass, restriction of dietary protein, ingestion of creatine, extra-renal metabolism of creatinine, or treatment with medications that affect renal tubular creatinine secretion. Performed By: #### L FT3, CORTL, PTH3, HEMDF, PHOS3, MG3, BMP3 #### [facility] [address] [place], [place] #### VD25H #### [facility] [address] [place] [address] GFR/1.73 sq M.predicted among blacks MDRD (S/P/Bld) [Vol rate/Area] mL/min/{1.73_m2} Normal >60 [facility] Comment on above: Performed By: #### L FT3, CORTL, PTH3, HEMDF, PHOS3, MG3, BMP3 #### [facility] [address] [place], [place] #### VD25H #### [facility] [address] [place] [address] Glucose [Mass/Vol] 94 mg/dL Normal 70-100 [facility] Comment on above: Performed By: #### L FT3, CORTL, PTH3, HEMDF, PHOS3, MG3, BMP3 #### [address] [address] [address] [place], [place] #### VD25H #### [facility] [address] [place] [address] Urea nitrogen [Mass/Vol] 13 mg/dL Normal 9-20 [facility] Comment on above: Performed By: #### L FT3, CORTL, PTH3, HEMDF, PHOS3, MG3, BMP3 #### [address] [address] [place], [place] #### VD25H #### [facility] [address] [place] [address] Potassium [Moles/Vol] 4.0 mmol/L Normal 3.5-5.1 [facility] Comment on above: Performed By: #### L FT3, CORTL, PTH3, HEMDF, PHOS3, MG3, BMP3 #### [place] [address] [address] [place], [place] #### VD25H #### [facility] [address] [place] [address] Sodium [Moles/Vol] 115 mmol/L Critically low 135-145 [facility] Comment on above: Performed By: #### L FT3, CORTL, PTH3, HEMDF, PHOS3, MG3, BMP3 #### [address] #### VD25H #### [facility] [address] [place] [address] Chloride [Moles/Vol] 86 mmol/L Low 98-107 [facility] Comment on above: Performed By: #### L FT3, CORTL, PTH3, HEMDF, PHOS3, MG3, BMP3 #### [facility] [address] [facility] [place] [address] #### VD25H #### [facility] [address] [place] [address] CR Chest Portableon 07-10-19 CR Chest Portable Patient Name: MADELYN CABRERA Diagnostic Radiology ACCESSION EXAM DATE/TIME PROCEDURE ORDERING PROVIDER [id number] 07/10/2021 14:59 EST CR Chest Portable JODI SMITH KIRSTON CPT code 86440 Reason For Exam (CR Chest Portable) PICC Placement Report CHEST: CLINICAL INDICATION: PICC placement TECHNIQUE: AP portable chest COMPARISON: Radiograph from earlier today at 5:31 AM FINDINGS: New right PICC which terminates overlying the lower SVC. No other significant interval change compared to the prior study. Report Dictated on Final Dictated: 07/10/2021 3:54 pm Dictating Physician: MD WHATLEY NICHOLAS Signed Date and Time: 07/10/2021 3:58 pm Signed by: MD WHATLEY NICHOLAS Transcribed Date and Time: 07/10/2021 3:54 Normal [facility] CR Chest Portable Patient Name: MADELYN CABRERA Diagnostic Radiology ACCESSION EXAM DATE/TIME PROCEDURE ORDERING PROVIDER [id number] 07/10/2021 06:02 EST CR Chest Portable [id number] -HECTOR PETERS CPT code 61244 Reason For Exam (CR Chest Portable) shortness of breath Report PORTABLE CHEST CLINICAL INDICATION: Shortness of breath TECHNIQUE: Portable AP COMPARISON: 07/09/2021 FINDINGS: Coarsened initial markings, similar to the prior exam. No confluent consolidation or pulmonary edema. No pleural effusions or pneumothorax. The heart is normal in size. There is calcification and tortuosity of the thoracic aorta. The osseous structures are unremarkable. IMPRESSION: Coarsened interstitial markings similar to the prior exam. No confluent consolidation or pulmonary edema. Report Dictated on Final Dictated: 07/10/2021 5:42 am Dictating Physician: MD BENNETT KEVIN Signed Date and Time: 07/10/2021 5:43 am Signed by: MD BENNETT KEVIN Transcribed Date and Time: 07/10/2021 5:42 Normal [facility] CT Head or Brain w/o Contras ton 07-10-2021 CT Head or Brain w/o Contrast Patient Name: MADELYN LOVE Computed Tomography ACCESSION EXAM DATE/TIME PROCEDURE ORDERING PROVIDER [id number] 07/10/2021 01:[address] Head or Brain w/o [id number] -KATIRAI, ANIS Contrast CPT code 18315 Reason For Exam (CT Head or Brain w/o Contrast) altered mental status Report CT HEAD: CLINICAL INDICATION: Altered mental status TECHNIQUE: Transaxial CT sequence performed through the head with 3 mm reconstruction. Sagittal and Coronal reconstruction images included. COMPARISON: None FINDINGS: Ventricles and sulci are prominent, consistent with age-related cerebral volume loss. There are scattered foci of hypoattenuation in the periventricular and subcortical white matter, which is nonspecific, but commonly seen with chronic small vessel ischemia. No extra-axial collection. No acute intracranial hemorrhage. No mass effect or midline shift. No CT evidence of an acute large territorial infarction. Imaged paranasal sinuses and mastoid air cells are well aerated. Calvarium is unremarkable. IMPRESSION: No acute intracranial hemorrhage or mass effect. Report Dictated on Final Dictated: 07/10/2021 1:26 am Dictating Physician: MD BENNETT KEVIN Signed Date and Time: 07/10/2021 1:33 am Signed by: MD BENNETT KEVIN Transcribed Date and Time: 07/10/2021 1:26 Normal [facility] CT Spine Cervical w/o Contra ston 07-10-2021 CT Spine Cervical w/o Contrast Patient Name: MADELYN LOVE Computed Tomography ACCESSION EXAM DATE/TIME PROCEDURE ORDERING PROVIDER [id number] 07/10/2021 01:[address] Spine Cervical w/o [id number] -MELANIE MARTIN Contrast CPT code 83615 Reason For Exam (CT Spine Cervical w/o Contrast) fall, altered Report CT CERVICAL SPINE: CLINICAL INDICATION: Fall, altered mental status TECHNIQUE: Transaxial sequence through the cervical spine. Coronal and sagittal reconstructions included. COMPARISON: None FINDINGS: There is normal cervical lordosis. No prevertebral soft tissue swelling. Craniocervical and atlantoaxial articulations are intact. Predental interval is not widened. Vertebral body heights are maintained. No cervical spine fracture. No spondylolisthesis. There are multilevel degenerative changes of the cervical spine with intervertebral disc space narrowing, endplate osteophytes, and uncovertebral and facet joint hypertrophy, most pronounced at C5-C6. There is incomplete fusion of the posterior arch of C1. No high-grade osseous encroachment of the central canal or neural foramina. Imaged neck soft tissues and lung apices are unremarkable. IMPRESSION: No cervical spine fracture. Report Dictated on Final Dictated: 07/10/2021 1:33 am Dictating Physician: MD BENNETT KEVIN Signed Date and Time: 07/10/2021 1:36 am Signed by: MD BENNETT KEVIN Transcribed Date and Time: 07/10/2021 1:33 Normal [facility] Glucose,Bedsideon 07-10-2021 Glucose [Mass/Vol] 282 mg/dL High 70-100 [facility] Comment on above: Result Comment: Test performed by glucose meter. Results may be 10%-15% lower than serum/plasma values. (CLIA ID [id number]) Performed By: #### L FT3, CORTL, PTH3, HEMDF, PHOS3, MG3, BMP3 #### [facility] [address] [place] [address] #### VD25H #### [facility] [address] [place] [address] Glucose [Mass/Vol] 136 mg/dL High 70-100 [facility] Comment on above: Result Comment: Test performed by glucose meter. Results may be 10%-15% lower than serum/plasma values. (CLIA ID [id number]) Performed By: #### L FT3, CORTL, PTH3, HEMDF, PHOS3, MG3, BMP3 #### [facility] [address] [place] [address] #### VD25H #### [facility] [address] [place] [address] Glucose [Mass/Vol] 296 mg/dL High 70-100 [facility] Comment on above: Result Comment: Test performed by glucose meter. Results may be 10%-15% lower than serum/plasma values. (CLIA ID [id number]) Performed By: #### L FT3, CORTL, PTH3, HEMDF, PHOS3, MG3, BMP3 #### [address] #### VD25H #### [facility] [address] [place] [address] Glucose [Mass/Vol] 110 mg/dL High 70-100 [facility] Comment on above: Result Comment: Test performed by glucose meter. Results may be 10%-15% lower than serum/plasma values. (CLIA ID [id number]) Performed By: #### L FT3, CORTL, PTH3, HEMDF, PHOS3, MG3, BMP3 #### [facility] [address] #### VD25H #### [facility] [address] [place] [address] Glucose [Mass/Vol] 133 mg/dL High 70-100 [facility] Comment on above: Result Comment: Test performed by glucose meter. Results may be 10%-15% lower than serum/plasma values. (CLIA ID [id number]) Performed By: #### L FT3, CORTL, PTH3, HEMDF, PHOS3, MG3, BMP3 #### [address] [address] #### VD25H #### [facility] [address] [place] [address] Hemogram w/ Autodiffon 07-10 Abs Baso Cnt 0.0 10*3/uL Normal 0.0-0.2 [facility] Comment on above: Performed By: #### L FT3, CORTL, PTH3, HEMDF, PHOS3, MG3, BMP3 #### [facility] [address] [place], [place] #### VD25H #### [facility] [address] [place] [address] Abs Neutrophile Cnt 3.6 10*3/uL Normal 1.8-7.0 [facility] Comment on above: Performed By: #### L FT3, CORTL, PTH3, HEMDF, PHOS3, MG3, BMP3 #### [address] #### VD25H #### [facility] [address] [place] [address] Basophils/100 WBC (Bld) 0.4 % Normal 0.0-2.0 [facility] Comment on above: Performed By: #### L FT3, CORTL, PTH3, HEMDF, PHOS3, MG3, BMP3 #### [address] #### VD25H #### [facility] [address] [place] [address] Eosinophils (Bld) [#/Vol] 0.0 10*3/uL Normal 0.0-0.5 [facility] Comment on above: Performed By: #### L FT3, CORTL, PTH3, HEMDF, PHOS3, MG3, BMP3 #### [address] #### VD25H #### [facility] [address] [place] [address] Eosinophils/100 WBC (Bld) 0.2 % Low 1.0-6.0 [facility] Comment on above: Performed By: #### L FT3, CORTL, PTH3, HEMDF, PHOS3, MG3, BMP3 #### [address] #### VD25H #### [facility] [address] [place] [address] Erythrocyte distribution width (RBC) [Ratio] 14.1 % Normal 11.5-14.5 [facility] Comment on above: Performed By: #### L FT3, CORTL, PTH3, HEMDF, PHOS3, MG3, BMP3 #### [address] #### VD25H #### [facility] [address] [place] [address] Granulocytes/100 WBC (Bld) 72.5 % Normal 40.0-80.0 [facility] Comment on above: Performed By: #### L FT3, CORTL, PTH3, HEMDF, PHOS3, MG3, BMP3 #### [address] #### VD25H #### [facility] [address] [place] [address] Hematocrit (Bld) [Volume fraction] 32.8 % Low 35.0-47.0 [facility] Comment on above: Performed By: #### L FT3, CORTL, PTH3, HEMDF, PHOS3, MG3, BMP3 #### [address] #### VD25H #### [facility] [address] [place] [address] Hemoglobin (Bld) [Mass/Vol] 11.4 g/dL Low 11.7-16.0 [facility] Comment on above: Performed By: #### L FT3, CORTL, PTH3, HEMDF, PHOS3, MG3, BMP3 #### [address] [place], [place] #### VD25H #### [facility] [address] [place] [address] Lymphocytes (Bld) [#/Vol] 0.8 10*3/uL Low 1.0-4.3 [facility] Comment on above: Performed By: #### L FT3, CORTL, PTH3, HEMDF, PHOS3, MG3, BMP3 #### [facility] [address] [place], [place] #### VD25H #### [facility] [address] [place] [address] Lymphocytes/100 WBC (Bld) 17.0 % Low 20.0-40.0 [facility] Comment on above: Performed By: #### L FT3, CORTL, PTH3, HEMDF, PHOS3, MG3, BMP3 #### [address] #### VD25H #### [facility] [address] [place] [address] MCH (RBC) [Entitic mass] 31.3 pg Normal 26.0-34.0 [facility] Comment on above: Performed By: #### L FT3, CORTL, PTH3, HEMDF, PHOS3, MG3, BMP3 #### [place] [address] [address] [place], [place] #### VD25H #### [facility] [address] [place] [address] MCHC 34.8 % Normal 32.0-36.0 [facility] Comment on above: Performed By: #### L FT3, CORTL, PTH3, HEMDF, PHOS3, MG3, BMP3 #### [facility] [address] [place], [place] #### VD25H #### [facility] [address] [place] [address] MCV (RBC) [Entitic vol] 90.0 fL Normal 79.0-98.0 [facility] Comment on above: Performed By: #### L FT3, CORTL, PTH3, HEMDF, PHOS3, MG3, BMP3 #### [address] #### VD25H #### [facility] [address] [place] [address] Monocytes (Bld) [#/Vol] 0.5 10*3/uL Normal 0.0-0.8 [facility] Comment on above: Performed By: #### L FT3, CORTL, PTH3, HEMDF, PHOS3, MG3, BMP3 #### [facility] [address] [place], [place] #### VD25H #### [facility] [address] [place] [address] Monocytes/100 WBC (Bld) 9.9 % Normal 2.0-10.0 [facility] Comment on above: Performed By: #### L FT3, CORTL, PTH3, HEMDF, PHOS3, MG3, BMP3 #### [address] #### VD25H #### [facility] [address] [place] [address] Platelet mean volume (Bld) [Entitic vol] 6.5 fL Low 7.4-10.4 [facility] Comment on above: Performed By: #### L FT3, CORTL, PTH3, HEMDF, PHOS3, MG3, BMP3 #### [address] [address] [place], [place] #### VD25H #### [facility] [address] [place] [address] Platelets (Bld) [#/Vol] 302 10*3/uL Normal 140-440 [facility] Comment on above: Performed By: #### L FT3, CORTL, PTH3, HEMDF, PHOS3, MG3, BMP3 #### [address] #### VD25H #### [facility] [address] [place] [address] RBC (Bld) [#/Vol] 3.64 10*6/uL Low 3.80-5.20 [facility] Comment on above: Performed By: #### L FT3, CORTL, PTH3, HEMDF, PHOS3, MG3, BMP3 #### [place] [address] [address] [place], [place] #### VD25H #### [facility] [address] [place] [address] WBC (Bld) [#/Vol] 4.9 10*3/uL Normal 3.6-10.7 [facility] Comment on above: Performed By: #### L FT3, CORTL, PTH3, HEMDF, PHOS3, MG3, BMP3 #### [place] [address] [address] [place], [place] #### VD25H #### [facility] [address] [place] [address] Hepatic Functionon 2 ALP [Catalytic activity/Vol] 107 U/L Normal 38-126 [facility] Comment on above: Performed By: #### L FT3, CORTL, PTH3, HEMDF, PHOS3, MG3, BMP3 #### [address] #### VD25H #### [facility] [address] [address] [place] [address] ALT [Catalytic activity/Vol] 20 U/L Normal 0-34 [facility] Comment on above: Result Comment: The ALT test is performed by an updated assay method. Please note that the reference intervals have been changed and are now sex specific. Performed By: #### L FT3, CORTL, PTH3, HEMDF, PHOS3, MG3, BMP3 #### [place] [address] [address] [place], [place] #### VD25H #### [facility] [address] [place] [address] AST [Catalytic activity/Vol] 42 U/L Normal 15-46 [facility] Comment on above: Performed By: #### L FT3, CORTL, PTH3, HEMDF, PHOS3, MG3, BMP3 #### [address] #### VD25H #### [facility] [address] [place] [address] Bilirubin [Mass/Vol] 0.7 mg/dL Normal 0.2-1.3 [facility] Comment on above: Performed By: #### L FT3, CORTL, PTH3, HEMDF, PHOS3, MG3, BMP3 #### [address] #### VD25H #### [facility] [address] [place] [address] Bilirubin.indirect [Mass/Vol] 0.0 mg/dL Normal 0.0-0.3 [facility] Comment on above: Performed By: #### L FT3, CORTL, PTH3, HEMDF, PHOS3, MG3, BMP3 #### [address] #### VD25H #### [facility] [address] [place] [address] Protein [Mass/Vol] 6.3 g/dL Normal 6.3-8.2 [facility] Comment on above: Performed By: #### L FT3, CORTL, PTH3, HEMDF, PHOS3, MG3, BMP3 #### [address] #### VD25H #### [facility] [address] [place] [address] Albumin [Mass/Vol] 3.6 g/dL Normal 3.5-5.0 [facility] Comment on above: Performed By: #### L FT3, CORTL, PTH3, HEMDF, PHOS3, MG3, BMP3 #### [address] #### VD25H #### [facility] [address] [place] [address] Magnesiumon 07-10-2021 Magnesium [Mass/Vol] 2.2 mg/dL Normal 1.6-2.3 [facility] Comment on above: Performed By: #### L FT3, CORTL, PTH3, HEMDF, PHOS3, MG3, BMP3 #### [address] #### VD25H #### [facility] [address] [place] [address] Osmolality,Serumon 2 Osmolality,Serum 249 mosm/kg Low 280-300 [facility] Comment on above: Performed By: #### L FT3, CORTL, PTH3, HEMDF, PHOS3, MG3, BMP3 #### [place] [address] [place], [place] #### VD25H #### [facility] [address] [place] [address] Phosphoruson 07-10-2021 Phosphate [Mass/Vol] 3.2 mg/dL Normal 2.5-4.5 [facility] Comment on above: Performed By: #### L FT3, CORTL, PTH3, HEMDF, PHOS3, MG3, BMP3 #### [address] #### VD25H #### [place] [address] [place] [address] Sodiumon 07-10-2021 Sodium [Moles/Vol] 114 mmol/L Critically low 135-145 [facility] Comment on above: Performed By: #### L FT3, CORTL, PTH3, HEMDF, PHOS3, MG3, BMP3 #### [address] #### VD25H #### [place] [address] [place] [address] Sodium [Moles/Vol] 119 mmol/L Critically low 135-145 [facility] Comment on above: Performed By: #### B GLU #### [address] Sodium [Moles/Vol] 116 mmol/L Critically low 135-145 [facility] Comment on above: Performed By: #### L FT3, CORTL, PTH3, HEMDF, PHOS3, MG3, BMP3 #### [address] #### VD25H #### [place] [address] [place] [address] Sodium [Moles/Vol] 100 mmol/L Critically low 135-145 [facility] Comment on above: Result Comment: Repe ated Repeated Performed By: #### L FT3, CORTL, PTH3, HEMDF, PHOS3, MG3, BMP3 #### [facility] [address] [place], [place] #### VD25H #### [facility] [address] [place] [address] Sodium [Moles/Vol] 118 mmol/L Critically low 135-145 [facility] Comment on above: Performed By: #### B GLU #### [place] [address] [address] [place], [place] Sodium [Moles/Vol] 117 mmol/L Critically low 135-145 [facility] Comment on above: Performed By: #### B GLU #### [place] [address] [address] [place], [place] Add on test from HISon 07-09 Add on test from HIS Accepted Normal [facility] Comment on above: Result Comment: Spec imen available & acceptable for analysis. Performed By: #### L FT3, CORTL, PTH3, HEMDF, PHOS3, MG3, BMP3 #### [place] [address] [address] [place], [place] #### VD25H #### [facility] [address] [place] [address] Add on test from HIS Accepted Normal [facility] Comment on above: Result Comment: Spec imen available & acceptable for analysis. Performed By: #### B GLU #### [place] [address] [address] [place], [place] Add on test from HIS Accepted Normal [facility] Comment on above: Result Comment: Spec imen available & acceptable for analysis. Performed By: #### L FT3, CORTL, PTH3, HEMDF, PHOS3, MG3, BMP3 #### [place] [address] [address] [place], [place] #### VD25H #### [facility] [address] [place] [address] CR Chest Portableon 07-09-19 22 CR Chest Portable Patient [facility]: [id number] Diagnostic Radiology ACCESSION EXAM DATE/TIME PROCEDURE ORDERING PROVIDER [phone] 07/09/2021 19:06 EST CR Chest Portable [id number] -MELANIE MARTIN CPT code 41750 Reason For Exam (CR Chest Portable) acute confusion, recent history of covid-19 Report CHEST PORTABLE CLINICAL INDICATION: acute confusion, recent history of covid-19 TECHNIQUE: Portable chest x-ray(s). COMPARISON: April,. FINDINGS: Cardiac silhouette prominent or mildly enlarged, which may be due in part to technique, but stable. Lungs show interstitial prominence and coarsening, with lower lobe predominance, left greater than right. No significant vascular congestion. No focal consolidation or apparent pneumothorax. Degenerative change again noted in the thoracic spine and bilateral shoulders. IMPRESSION: 1. Interstitial prominence in the lower lungs may represent sequelae of reported Coronavirus disease 2019 (COVID-19) pneumonia. 2. No acute consolidation. Report Dictated on Workstation: EHSAN Final Dictated: 07/09/2021 7:16 pm Dictating Physician: MD COLE WENDELL Signed Date and Time: 07/09/2021 7:19 pm Signed by: MD COLE WENDELL Transcribed Date and Time: 07/09/2021 7:16 Normal [facility] Comp Metabolic Panelon 07-09 ALP [Catalytic activity/Vol] 116 U/L Normal 38-126 [facility] Comment on above: Performed By: #### L FT3, CORTL, PTH3, HEMDF, PHOS3, MG3, BMP3 #### [facility] [address] [place] [address] #### VD25H #### [facility] [address] [place] [address] ALT [Catalytic activity/Vol] 20 U/L Normal 0-34 [facility] Comment on above: Result Comment: The ALT test is performed by an updated assay method. Please note that the reference intervals have been changed and are now sex specific. Performed By: #### L FT3, CORTL, PTH3, HEMDF, PHOS3, MG3, BMP3 #### [place] [address] [address] [facility], [place] #### VD25H #### [facility] [address] [place] [address] Anion gap [Moles/Vol] 6 mmol/L Normal 3-13 [facility] Comment on above: Performed By: #### L FT3, CORTL, PTH3, HEMDF, PHOS3, MG3, BMP3 #### [place] [address] [address] [facility] #### VD25H #### [facility] [address] [place] [address] AST [Catalytic activity/Vol] 51 U/L High 15-46 [facility] Comment on above: Performed By: #### L FT3, CORTL, PTH3, HEMDF, PHOS3, MG3, BMP3 #### [place] [address] [address] [facility] #### VD25H #### [facility] [address] [place] [address] Bilirubin [Mass/Vol] 0.8 mg/dL Normal 0.2-1.3 [facility] Comment on above: Performed By: #### L FT3, CORTL, PTH3, HEMDF, PHOS3, MG3, BMP3 #### [place] [address] [address] [facility] #### VD25H #### [facility] [address] [place] [address] Calcium [Mass/Vol] 8.2 mg/dL Low 8.4-10.4 [facility] Comment on above: Performed By: #### L FT3, CORTL, PTH3, HEMDF, PHOS3, MG3, BMP3 #### [address] [facility], [place] #### VD25H #### [facility] [address] [place] [address] CO2 [Moles/Vol] 24 mmol/L Normal 22-30 [facility] Comment on above: Performed By: #### L FT3, CORTL, PTH3, HEMDF, PHOS3, MG3, BMP3 #### [facility] [address] [facility] #### VD25H #### [facility] [address] [place] [address] Glucose [Mass/Vol] 138 mg/dL High 70-100 [facility] Comment on above: Performed By: #### L FT3, CORTL, PTH3, HEMDF, PHOS3, MG3, BMP3 #### [place] [address] [address] [facility] #### VD25H #### [facility] [address] [place] [address] Protein [Mass/Vol] 6.9 g/dL Normal 6.3-8.2 [facility] Comment on above: Performed By: #### L FT3, CORTL, PTH3, HEMDF, PHOS3, MG3, BMP3 #### [address] [facility] #### VD25H #### [facility] [address] [place] [address] Urea nitrogen [Mass/Vol] 19 mg/dL Normal 9-20 [facility] Comment on above: Performed By: #### L FT3, CORTL, PTH3, HEMDF, PHOS3, MG3, BMP3 #### [place] [address] [address] [facility] #### VD25H #### [facility] [address] [place] [address] Creatinine [Mass/Vol] 0.49 mg/dL Low 0.52-1.25 [facility] Comment on above: Performed By: #### L FT3, CORTL, PTH3, HEMDF, PHOS3, MG3, BMP3 #### [place] [address] [address] [facility], [place] #### VD25H #### [facility] [address] [place] [address] eGFR OTHER > 90.0 Normal >60 [facility] Comment on above: Result Comment: KDIG O guidelines provide the following GFR categories: Stage GFR(ml/min/1.73 m2) Terms G1 >=90 Normal or high G2 60-89 Mildly decreased* G3a 45-59 Mildly to moderately decreased G3b 30-44 Moderately to severely decreased G4 15-29 Severely decreased G5 <15 Kidney failure *Relative to young adult level. In the absence of evidence of kidney damage, neither GFR category G1 nor G2 fulfill the criteria for CKD. The CKD-EPI equation is validated in individuals 18 years of age and older. Currently the best equation for estimating glomerular filtration rate (GFR) from serum creatinine in children is the Bedside Glynn equation. It is less accurate in patients with extremes of muscle mass, restriction of dietary protein, ingestion of creatine, extra-renal metabolism of creatinine, or treatment with medications that affect renal tubular creatinine secretion. Performed By: #### L FT3, CORTL, PTH3, HEMDF, PHOS3, MG3, BMP3 #### [facility] [address] #### VD25H #### [facility] [address] [place] [address] GFR/1.73 sq M.predicted among blacks MDRD (S/P/Bld) [Vol rate/Area] mL/min/{1.73_m2} Normal >60 [facility] Comment on above: Performed By: #### L FT3, CORTL, PTH3, HEMDF, PHOS3, MG3, BMP3 #### [facility] [address] [place], [place] #### VD25H #### [facility] [address] [place] [address] Albumin [Mass/Vol] 4.1 g/dL Normal 3.5-5.0 [facility] Comment on above: Performed By: #### L FT3, CORTL, PTH3, HEMDF, PHOS3, MG3, BMP3 #### [facility] [address] [place], [place] #### VD25H #### [facility] [address] [place] [address] Chloride [Moles/Vol] 76 mmol/L Low 98-107 [facility] Comment on above: Performed By: #### L FT3, CORTL, PTH3, HEMDF, PHOS3, MG3, BMP3 #### [place] [address] [address] [place], [place] #### VD25H #### [facility] [address] [place] [address] Potassium [Moles/Vol] 4.3 mmol/L Normal 3.5-5.1 [facility] Comment on above: Performed By: #### L FT3, CORTL, PTH3, HEMDF, PHOS3, MG3, BMP3 #### [place] [address] [place], [place] #### VD25H #### [facility] [address] [place] [address] Sodium [Moles/Vol] 107 mmol/L Critically low 135-145 [facility] Comment on above: Performed By: #### L FT3, CORTL, PTH3, HEMDF, PHOS3, MG3, BMP3 #### [place] [address] [place], [place] #### VD25H #### [facility] [address] [place] [address] Complete Urinalysison 2021 Appearance (U) Clear Normal Clear [facility] Comment on above: Result Comment: . Performed By: #### L FT3, CORTL, PTH3, HEMDF, PHOS3, MG3, BMP3 #### [place] [address] [place], [place] #### VD25H #### [facility] [address] [place] [address] Bacteria LM.HPF (Urine sed) [#/Area] Negative Normal Negative [facility] Comment on above: Result Comment: . Performed By: #### L FT3, CORTL, PTH3, HEMDF, PHOS3, MG3, BMP3 #### [address] #### VD25H #### [facility] [address] [place] [address] Bilirubin,Urine Negative Normal Negative [facility] Comment on above: Result Comment: . Performed By: #### L FT3, CORTL, PTH3, HEMDF, PHOS3, MG3, BMP3 #### [facility] [address] [place], [place] #### VD25H #### [facility] [address] [place] [address] Cast, Hyaline Negative Normal Negative [facility] Comment on above: Result Comment: . Performed By: #### L FT3, CORTL, PTH3, HEMDF, PHOS3, MG3, BMP3 #### [place] [address] [place], [place] #### VD25H #### [facility] [address] [place] [address] Color (U) Light-Yellow Normal Lt. Yellow [facility] Comment on above: Result Comment: . Performed By: #### L FT3, CORTL, PTH3, HEMDF, PHOS3, MG3, BMP3 #### [address] #### VD25H #### [facility] [address] [place] [address] Glucose Ql (U) Normal Normal Normal (<70) [facility] Comment on above: Result Comment: . Performed By: #### L FT3, CORTL, PTH3, HEMDF, PHOS3, MG3, BMP3 #### [place] [address] [place], [place] #### VD25H #### [facility] [address] [place] [address] Ketone,Urine 10 mg/dL Abnormal Negative [facility] Comment on above: Result Comment: . Performed By: #### L FT3, CORTL, PTH3, HEMDF, PHOS3, MG3, BMP3 #### [place] [address] [place], [place] #### VD25H #### [facility] [address] [place] [address] Leukocytes,Urine Negative Normal Negative [facility] Comment on above: Result Comment: . Performed By: #### L FT3, CORTL, PTH3, HEMDF, PHOS3, MG3, BMP3 #### [facility] [address] [place], [place] #### VD25H #### [facility] [address] [place] [address] Nitrites,Urine Negative Normal Negative [facility] Comment on above: Result Comment: . Performed By: #### L FT3, CORTL, PTH3, HEMDF, PHOS3, MG3, BMP3 #### [place] [address] [place], [place] #### VD25H #### [facility] [address] [place] [address] Occult Blood,Urine Negative Normal Negative [facility] Comment on above: Result Comment: . Performed By: #### L FT3, CORTL, PTH3, HEMDF, PHOS3, MG3, BMP3 #### [place] [address] [place], [place] #### VD25H #### [facility] [address] [place] [address] pH,Urine 6.0 Normal 5.0-8.0 [facility] Comment on above: Result Comment: . Performed By: #### L FT3, CORTL, PTH3, HEMDF, PHOS3, MG3, BMP3 #### [place] [address] [place], [place] #### VD25H #### [facility] [address] [place] [address] Protein (U) [Mass/Vol] 100 mg/dL Abnormal Negative [facility] Comment on above: Result Comment: . Performed By: #### L FT3, CORTL, PTH3, HEMDF, PHOS3, MG3, BMP3 #### [place] [address] [place], [place] #### VD25H #### [facility] [address] [place] [address] RBC, Urine 0 - 2 Normal 0-2 [facility] Comment on above: Result Comment: . Performed By: #### L FT3, CORTL, PTH3, HEMDF, PHOS3, MG3, BMP3 #### [facility] [address] [place] [address] #### VD25H #### [facility] [address] [place] [address] Specific [place],Urine 1.010 Normal 1.005 - 1.030 [facility] Comment on above: Result Comment: . Performed By: #### L FT3, CORTL, PTH3, HEMDF, PHOS3, MG3, BMP3 #### [place] [address] [place] #### VD25H #### [facility] [address] [place] [address] Squamous Epithelial 0 - 2 Normal 3-5 [facility] Comment on above: Result Comment: . Performed By: #### L FT3, CORTL, PTH3, HEMDF, PHOS3, MG3, BMP3 #### [place] [address] [place], [place] #### VD25H #### [facility] [address] [place] [address] Urobilinogen,Urine Normal Normal Normal (0-1) [facility] Comment on above: Result Comment: . Performed By: #### L FT3, CORTL, PTH3, HEMDF, PHOS3, MG3, BMP3 #### [facility] [address] [place], [place] #### VD25H #### [facility] [address] [place] [address] WBC, Urine 3 - 5 Normal 0-5 [facility] Comment on above: Result Comment: . Performed By: #### L FT3, CORTL, PTH3, HEMDF, PHOS3, MG3, BMP3 #### [place] [address] [place], [place] #### VD25H #### [facility] [address] [place] [address] Drugs of Abuseon 07-09-2021 Phencyclidine (PCP), Ur Negative Normal [facility] Comment on above: Result Comment: The expected value for all of the drugs listed above is Negative. The following drugs or drug groups have been screened for by Immunoassay at the following thresholds: Amphetamine class (1000 ng/mL), Barbiturates (200 ng/mL), Benzodiazepines (200 ng/mL), Cocaine (300 ng/mL), Methadone (300 ng/mL), Opiates (300 ng/mL), Oxycodone (100 ng/mL), and PCP (25 ng/mL). NOTE: These results are for medical treatment only. Analysis performed using non-forensic procedures. POSITIVE results are NOT confirmed by a more specific alternative method unless requested. If confirmation is needed, request confirmation under separate order. Performed By: #### L FT3, CORTL, PTH3, HEMDF, PHOS3, MG3, BMP3 #### [address] #### VD25H #### [facility] [address] [place] [address] Methadone, Ur Negative [facility] Comment on above: Performed By: #### L FT3, CORTL, PTH3, HEMDF, PHOS3, MG3, BMP3 #### [address] #### VD25H #### [facility] [address] [place] [address] Opiates, Ur Positive [facility] Comment on above: Performed By: #### L FT3, CORTL, PTH3, HEMDF, PHOS3, MG3, BMP3 #### [address] #### VD25H #### [facility] [address] [place] [address] Cocaine, Ur Negative [facility] Comment on above: Performed By: #### L FT3, CORTL, PTH3, HEMDF, PHOS3, MG3, BMP3 #### [address] #### VD25H #### [facility] [address] [place] [address] Amphetamines, Ur Negative Normal [facility] Comment on above: Performed By: #### L FT3, CORTL, PTH3, HEMDF, PHOS3, MG3, BMP3 #### [address] [place], [place] #### VD25H #### [facility] [address] [place] [address] Benzodiazepines, Ur Negative Normal [facility] Comment on above: Performed By: #### L FT3, CORTL, PTH3, HEMDF, PHOS3, MG3, BMP3 #### [address] #### VD25H #### [facility] [address] [place] [address] Barbiturates, Ur Negative Normal [facility] Comment on above: Performed By: #### L FT3, CORTL, PTH3, HEMDF, PHOS3, MG3, BMP3 #### [address] #### VD25H #### [facility] [address] [place] [address] Oxycodone/Oxymorphine,U r Negative Normal [facility] Comment on above: Performed By: #### L FT3, CORTL, PTH3, HEMDF, PHOS3, MG3, BMP3 #### [address] #### VD25H #### [facility] [address] [place] [address] ED Provider Noteon 2 ED Provider Note [facility] ICU T3 EMERGENCY DEPARTMENT ENCOUNTER Pt Name: Madelyn Love Birthdate 1945 Date of evaluation: 07/09/2021 Provider: MELANIE MARTIN MD CHIEF COMPLAINT Chief Complaint Patient presents with ? Altered Mental Status Pt to ed with after fall @ home this morning, skin tears to L arm, minimal sanguinous drainage, stating she has voices in her head telling her to get help and that she is having SI ideations but no plan to do it states shannon how i would i believe in god pt is unsteady on feet and states her daughters and believe she is unsafe at home d/t confusion and weakness, ? Hallucinations hearing voices telling her to go get help ? Suicidal pt states she is feeling SI but denies a plan ? Fall pt with multiple skin tears from fall this morning, states she is pain all over states she hit her head but unaware of LOC, adaptic & kerlixed applied to R elbow skin tear. HISTORY OF PRESENT ILLNESS (Location/Symptom, Timing/Onset, Context/Setting, Quality, Duration, Modifying Factors, Severity) Note limiting factors. I wore an N95 mask for the entirety of this encounter. Does this patient come from an ECF, SNF, Rehab, Halfway or other Congregate setting: No (If yes to above patient needs a Covid-19 test) LCUIA Loev is a 75 y.o. female who presents to the emergency department brought to the emergency department by her who reports over the past 5 days she has been exhibiting increasing confusion and agitation. She is normally alert and oriented. 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 She is acting in a similar manner though is not on any steroids. She was recently diagnosed with COVID-19 however about 2 weeks ago he says has had sinus drainage. She was put on some medications for this but unsure what. Patient denies any SI or HI or hallucinations and the also denies any hallucinations. Patient denies any pain. Nevertheless, triage note reveals that the patient fell this morning and has been experiencing auditory hallucinations. Nursing Notes were reviewed. REVIEW OF SYSTEMS (2+ for level 4; 10+ for level 5) Review of Systems Unable to perform ROS: Mental status change PAST MEDICAL HISTORY History reviewed. No pertinent past medical history. SURGICAL HISTORY History reviewed. No pertinent surgical history. CURRENT MEDICATIONS Current Discharge Medication List CONTINUE these medications which have NOT CHANGED Details Multiple Vitamin (MULTI-VITAMIN DAILY PO) Take by mouth CRANBERRY-VITAMIN C PO Take by mouth magnesium gluconate (MAGONATE) 500 MG tablet Take 500 mg by mouth daily cyanocobalamin 1000 MCG tablet Take 1,000 mcg by mouth daily Apoaequorin (PREVAGEN PO) Take by mouth pantoprazole (PROTONIX) 40 MG tablet Take 40 mg by mouth daily montelukast (SINGULAIR) 10 MG tablet Take 10 mg by mouth nightly amLODIPine (NORVASC) 10 MG tablet Take 7.5 mg by mouth daily Probiotic Product (PROBIOTIC-10) CHEW Take by mouth MILK THISTLE EXTRACT PO Take by mouth aluminum & magnesium hydroxide-simethicone (MYLANTA) 400-400-40 MG/5ML SUSP Take 30 mLs by mouth every 6 hours as needed losartan (COZAAR) 100 MG tablet Take 50 mg by mouth daily carvedilol (COREG) 6.25 MG tablet Take 6.25 mg by mouth 2 times daily furosemide (LASIX) 20 MG tablet Take 20 mg by mouth Twice a Week [id number] L NA by Nasal route ALLERGIES Rofecoxib and Nsaids FAMILY HISTORY History reviewed. No pertinent family history. SOCIAL HISTORY Social History Socioeconomic History ? Marital status: Single Spouse name: None ? Number of children: None ? Years of education: None ? Highest education level: None Occupational History ? None Tobacco Use ? Smoking status: None ? Smokeless tobacco: None Substance and Sexual Activity ? Alcohol use: None ? Drug use: None ? Sexual activity: None Other Topics Concern ? None Social History Narrative ? None Social Determinants of Health Financial Resource Strain: ? Difficulty of Paying Living Expenses: Not on file Food Insecurity: ? Worried About Running Out of Food in the Last Year: Not on file ? Ran Out of Food in the Last Year: Not on file Transportation Needs: ? Lack of Transportation (Medical): Not on file ? Lack of Transportation (Non-Medical): Not on file Physical Activity: ? Days of Exercise per Week: Not on file ? Minutes of Exercise per Session: Not on file Stress: ? Feeling of Stress : Not on file Social Connections: ? Frequency of Communication with Friends and Family: Not on file ? Frequency of Social Gatherings with Friends and Family: Not on file ? Attends [employer] Services: Not on file ? Active Member of Clubs or Organizations: Not on file ? Attends Club or Organization Meetings: Not on file ? Marital Status: Not on file Intimate Partner Violence: ? Fear of Current or Ex-Partner: Not (more content not included)... Normal [facility] Ethanol Serum/Plasmaon 07-09 Ethanol-Serum/Plasma < 0.010 Normal 0.000-0 .01 0 [facility] Comment on above: Result Comment: NOTE : This result is for medical treatment only. Analysis performed using non-forensic procedures. Performed By: #### L FT3, CORTL, PTH3, HEMDF, PHOS3, MG3, BMP3 #### [facility] [address] [place], [place] #### [id number] #### [facility] [address] [place] [address] Hemoglobin A1Con 07-09-2021 Glucose [Mass/Vol] 146 mg/dL Normal [facility] Comment on above: Performed By: #### L FT3, CORTL, PTH3, HEMDF, PHOS3, MG3, BMP3 #### [facility] [address] [place], [place] #### VD25H #### [facility] [address] [place] [address] HbA1c (Bld) [Mass fraction] 6.7 % Abnormal [facility] Comment on above: Result Comment: Norm al less than 5.7% Prediabetes 5.7% to 6.4% Diabetes 6.5% or higher --HgbA1C levels may not be accurate in patients who have renal disease, received recent blood transfusions, are anemic, or who have dyshemoglobinemia. Performed By: #### L FT3, CORTL, PTH3, HEMDF, PHOS3, MG3, BMP3 #### [facility] [address] [place], [place] #### [id number] #### [facility] [address] [place] [address] Hemogram w/ Autodiffon 07-09 Abs Baso Cnt 0.0 10*3/uL Normal 0.0-0.2 [facility] Comment on above: Performed By: #### H EMDF, TROPN, OSM, CMP3, ETOH4, HA1C2 #### [address] Abs Neutrophile Cnt 5.6 10*3/uL Normal 1.8-7.0 [facility] Comment on above: Performed By: #### H EMDF, TROPN, OSM, CMP3, ETOH4, HA1C2 #### [place] [address] [place], [place] Basophils/100 WBC (Bld) 0.3 % Normal 0.0-2.0 [facility] Comment on above: Performed By: #### H EMDF, TROPN, OSM, CMP3, ETOH4, HA1C2 #### [address] Eosinophils (Bld) [#/Vol] 0.0 10*3/uL Normal 0.0-0.5 [facility] Comment on above: Performed By: #### H EMDF, TROPN, OSM, CMP3, ETOH4, HA1C2 #### [address] Eosinophils/100 WBC (Bld) 0.2 % Low 1.0-6.0 [facility] Comment on above: Performed By: #### H EMDF, TROPN, OSM, CMP3, ETOH4, HA1C2 #### [address] Erythrocyte distribution width (RBC) [Ratio] 14.1 % Normal 11.5-14.5 [facility] Comment on above: Performed By: #### H EMDF, TROPN, OSM, CMP3, ETOH4, HA1C2 #### [address] Granulocytes/100 WBC (Bld) 79.1 % Normal 40.0-80.0 [facility] Comment on above: Performed By: #### H EMDF, TROPN, OSM, CMP3, ETOH4, HA1C2 #### [address] Hematocrit (Bld) [Volume fraction] 33.7 % Low 35.0-47.0 [facility] Comment on above: Performed By: #### H EMDF, TROPN, OSM, CMP3, ETOH4, HA1C2 #### [address] Hemoglobin (Bld) [Mass/Vol] 11.8 g/dL Normal 11.7-16.0 [facility] Comment on above: Performed By: #### H EMDF, TROPN, OSM, CMP3, ETOH4, HA1C2 #### [address] Lymphocytes (Bld) [#/Vol] 0.9 10*3/uL Low 1.0-4.3 [facility] Comment on above: Performed By: #### H EMDF, TROPN, OSM, CMP3, ETOH4, HA1C2 #### [address] Lymphocytes/100 WBC (Bld) 12.9 % Low 20.0-40.0 [facility] Comment on above: Performed By: #### H EMDF, TROPN, OSM, CMP3, ETOH4, HA1C2 #### [address] MCH (RBC) [Entitic mass] 31.3 pg Normal 26.0-34.0 [facility] Comment on above: Performed By: #### H EMDF, TROPN, OSM, CMP3, ETOH4, HA1C2 #### [address] MCHC 34.9 % Normal 32.0-36.0 [facility] Comment on above: Performed By: #### H EMDF, TROPN, OSM, CMP3, ETOH4, HA1C2 #### [address] MCV (RBC) [Entitic vol] 89.5 fL Normal 79.0-98.0 [facility] Comment on above: Performed By: #### H EMDF, TROPN, OSM, CMP3, ETOH4, HA1C2 #### [address] Monocytes (Bld) [#/Vol] 0.5 10*3/uL Normal 0.0-0.8 [facility] Comment on above: Performed By: #### H EMDF, TROPN, OSM, CMP3, ETOH4, HA1C2 #### [address] [address] [place], [place] Monocytes/100 WBC (Bld) 7.5 % Normal 2.0-10.0 [facility] Comment on above: Performed By: #### H EMDF, TROPN, OSM, CMP3, ETOH4, HA1C2 #### [address] [address] [address] [place], [place] Platelet mean volume (Bld) [Entitic vol] 7.1 fL Low 7.4-10.4 [facility] Comment on above: Performed By: #### H EMDF, TROPN, OSM, CMP3, ETOH4, HA1C2 #### [address] Platelets (Bld) [#/Vol] 318 10*3/uL Normal 140-440 [facility] Comment on above: Performed By: #### H EMDF, TROPN, OSM, CMP3, ETOH4, HA1C2 #### [address] RBC (Bld) [#/Vol] 3.76 10*6/uL Low 3.80-5.20 [facility] Comment on above: Performed By: #### H EMDF, TROPN, OSM, CMP3, ETOH4, HA1C2 #### [address] WBC (Bld) [#/Vol] 7.1 10*3/uL Normal 3.6-10.7 [facility] Comment on above: Performed By: #### H EMDF, TROPN, OSM, CMP3, ETOH4, HA1C2 #### [address] Osmolality,Serumon 2 Osmolality,Serum 236 mosm/kg Low 280-300 [facility] Comment on above: Performed By: #### L FT3, CORTL, PTH3, HEMDF, PHOS3, MG3, BMP3 #### [address] #### [id number] #### [facility] [address] [place] [address] Osmolality,Urineon 2 Osmolality,Urine 320 mosm/kg Normal 300-1000 [facility] Comment on above: Performed By: #### L FT3, CORTL, PTH3, HEMDF, PHOS3, MG3, BMP3 #### [facility] [address] [place], [place] #### VD25H #### [facility] [address] [place] [address] SARS-CoV-2 Antigenon 022 SARS-CoV-2 Antigen Negative Normal Negative [facility] Comment on above: Result Comment: A negative result does not rule out the possibility of SARS-CoV-2 infection. NAAT-based methods should be considered for symptomatic patients presenting greater than seven days after onset of symptoms. Method: Lateral flow immunoassay. Fact sheets for healthcare providers and patients can be found at the following sites: https://www.fda.gov/media/605040/download https://www.[facility].gov/media/186524/download Performed By: #### L FT3, CORTL, PTH3, HEMDF, PHOS3, MG3, BMP3 #### [place] [address] [address] [place], [place] #### VD25H #### [facility] [address] [place] [address] Sodiumon 07-09-2021 Sodium [Moles/Vol] 111 mmol/L Critically low 135-145 [facility] Comment on above: Performed By: #### L FT3, CORTL, PTH3, HEMDF, PHOS3, MG3, BMP3 #### [address] #### VD25H #### [facility] [address] [place] [address] Sodium, Ur Randomon 07-09-19 22 Sodium [Moles/Vol] 39 mmol/L Normal 30-90 [facility] Comment on above: Performed By: #### L FT3, CORTL, PTH3, HEMDF, PHOS3, MG3, BMP3 #### [facility] [address] [place] [address] #### VD25H #### [facility] [address] [place] [place] [address] Troponin Ion 07-09-2021 Troponin I.cardiac [Mass/Vol] ng/mL Normal 0.000-0.03 4 [facility] Comment on above: Result Comment: . Performed By: #### L FT3, CORTL, PTH3, HEMDF, PHOS3, MG3, BMP3 #### [facility] [address] [place] [address] #### VD25H #### [facility] [address] [place] [address] Laboratory - Microbiology an d Antimicrobial susceptibilityon 06-29-2021 SARS-CoV-2 (COVID-19) RNA MILKA+probe Ql (Unsp spec) Detected Not Detect [facility] Work Phone: Comment on above: Normal Reference Ran ge: Not DetectedMethod:(RT-PCR) real-time reverse transcriptase PCRLuminex DANIELA Instrument*The Food and Drug Administration (FDA) has issued an Emergency Use Authorization (EAU) for the DANIELA SARS-CoV-2 Assay for the rapid detection of the virus that causes COVID-19. This test has been validated, but the FDAs independent review of this validation is pending.*Negative results do not preclude infection and should not be used as the sole basis for treatment or patient management. Optimum specimen types and timing for peak viral levels during infections caused by SARS-CoV-2 have not been determined. Collection of multiple specimens from the same patient may be necessary to detect the virus. The possibility of a false negative result should be considered if the patient has clinical presentation or has had recent exposure. Basophil percentageon 2021 Chloride [Moles/Vol] 96 mmol/L 98-107 [facility] Work Phone: Glucose [Mass/Vol] 171 mg/dL 74-106 [facility] Work Phone: Comment on above: Fasting Glucose resu lt greater than or equal to 126 mg/dL suggests DIABETES MELLITUS per A.D.A. criteria. Potassium [Moles/Vol] 4.4 mmol/L 3.5-5.1 [facility] Work Phone: Sodium [Moles/Vol] 127 mmol/L 136-145 [facility] Work Phone: Laboratory - Chemistry and C hemistry - challengeon 06-26-2021 CO2 [Moles/Vol] 24.0 mmol/L 21.0-32.0 [facility] Work Phone: Urea nitrogen/Creatinine [Mass ratio] 22.9 mg/mg 10-20 [facility] Work Phone: No Panel Informationon 06-26 Estimated GFR (MDRD) Amer 105 mL/min >60 [facility] Work Phone: Comment on above: GFR Calc Estimated GFR (MDRD) Non-Af Amer 87 mL/min >60 [facility] Work Phone: Comment on above: Non- GFR Calc Serum or plasma calcium shane urement (mass/volume)on 06-26-2021 Calcium [Mass/Vol] 7.9 mg/dL 8.5-10.1 [facility] Work Phone: Serum or plasma creatinine m easurement (mass/volume)on 06-26-2021 Creatinine [Mass/Vol] 0.70 mg/dL 0.55-1.02 [facility] Work Phone: Comment on above: The validity of the calculated GFR & GFRAA in patients over 70 years has not been determined. Clinical correlation is essential. Serum or plasma urea nitroge n measurement (mass/volume)on 06-26-2021 Urea nitrogen [Mass/Vol] 16 mg/dL 7-18 [facility] Work Phone: Thin prep Papanicolaou smear with manual screeningon 06-26-2021 Thin prep Papanicolaou smear with manual screening 7 5-15 [facility] Work Phone: Thin prep Papanicolaou smear with manual screening 274 mOsm/KG 280-301 [facility] Work Phone: Urine osmolality measurement on 06-26-2021 Osmolality (U) [Osmolality] 240 mOsm/KG [facility] Work Phone: Comment on above: Normal Urine Referen ce Ranges Random: 50 - 1200 mOsm/kg H20 depending on fluid intake Random: >850 mOsm/kg after 12 hour fluid restriction 24 hour: ~300 - 900 mOsm/kg H2O Basophil percentageon 2021 Basophil percentage 10-25 SEEN /hpf [facility] Work Phone: Bilirubin [Mass/Vol] 0.50 mg/dL 0.20-1.00 [facility] Work Phone: Comment on above: For patients on eltr ombopag therapy, use of Dimension [place] TBIL is not recommended. Chloride [Moles/Vol] 96 mmol/L 98-107 [facility] Work Phone: Glucose [Mass/Vol] 139 mg/dL 74-106 [facility] Work Phone: Comment on above: Fasting Glucose resu lt greater than or equal to 126 mg/dL suggests DIABETES MELLITUS per A.D.A. criteria. Potassium [Moles/Vol] 3.9 mmol/L 3.5-5.1 [facility] Work Phone: Protein [Mass/Vol] 6.5 g/dL 6.4-8.2 [facility] Work Phone: Sodium [Moles/Vol] 129 mmol/L 136-145 [facility] Work Phone: Bilirubin Test strip Ql (U)o n 06-21-2021 Bilirubin Ql (U) Negative Negative [facility] Work Phone: Ketones Test strip Ql (U)on 06-21-2021 Ketones Ql (U) Negative Negative [facility] Work Phone: Laboratory - Chemistry and C hemistry - challengeon 06-21-2021 ALP [Catalytic activity/Vol] 100 U/L 45-117 [facility] Work Phone: ALT [Catalytic activity/Vol] 25 U/L 13-56 [facility] Work Phone: CO2 [Moles/Vol] 26.0 mmol/L 21.0-32.0 [facility] Work Phone: Globulin (S) [Mass/Vol] 3.3 g/dL 2.2-4.2 [facility] Work Phone: Urea nitrogen/Creatinine [Mass ratio] 18.4 mg/mg 10-20 [facility] Work Phone: Mucus LM Ql (Urine sed)on Mucus Ql (Urine sed) 0 SEEN /hpf [facility] Work Phone: Nitrite Test strip Ql (U)on 06-21-2021 Nitrite Ql (U) Negative Negative [facility] Work Phone: No Panel Informationon 06-21 Estimated GFR (MDRD) Amer 104 mL/min >60 [facility] Work Phone: Comment on above: GFR Calc Estimated GFR (MDRD) Non-Af Amer 86 mL/min >60 [facility] Work Phone: Comment on above: Non- GFR Calc Protein Test strip Ql (U)on 06-21-2021 Protein Ql (U) 100 mg/dl Negative [facility] Work Phone: Serum or plasma albumin shane urement (mass/volume)on 06-21-2021 Albumin [Mass/Vol] 3.2 g/dL 3.2-5.0 [facility] Work Phone: Serum or plasma albumin/glob ulin mass ratioon 06-21-2021 Albumin/Globulin [Mass ratio] 1.0 {ratio} 0.9-2.4 [facility] Work Phone: Serum or plasma calcium shane urement (mass/volume)on 06-21-2021 Calcium [Mass/Vol] 7.7 mg/dL 8.5-10.1 [facility] Work Phone: Serum or plasma creatinine m easurement (mass/volume)on 06-21-2021 Creatinine [Mass/Vol] 0.71 mg/dL 0.55-1.02 [facility] Work Phone: Comment on above: The validity of the calculated GFR & GFRAA in patients over 70 years has not been determined. Clinical correlation is essential. Serum or plasma urea nitroge n measurement (mass/volume)on 06-21-2021 Urea nitrogen [Mass/Vol] 13 mg/dL 7-18 [facility] Work Phone: Squamous epithelial cells de tection in urine sediment by light microscopyon 06-21-2021 Epithelial cells.squamous LM Ql (Urine sed) 5-10 SEEN /hpf [facility] Work Phone: Thin prep Papanicolaou smear with manual screeningon 06-21-2021 Thin prep Papanicolaou smear with manual screening 19 U/L 15-37 [facility] Work Phone: Thin prep Papanicolaou smear with manual screening 7 5-15 [facility] Work Phone: Urine blood detectionon 06-03 RBC Ql (U) Negative Negative [facility] Work Phone: RBC Ql (U) 0-5 SEEN /hpf [facility] Work Phone: Urine clarityon 06-21-2021 Clarity (U) Sl. Cloudy Clear [facility] Work Phone: Urine color determinationon 06-21-2021 Color (U) Yellow Yellow [facility] Work Phone: Urine glucose detectionon Glucose Ql (U) Normal mg/dl Normal [facility] Work Phone: Urine leukocyte esterase det ection by dipstickon 06-21-2021 Leukocyte esterase Test strip Ql (U) 500 /ul Negative [facility] Work Phone: Urine pHon 06-21-2021 pH (U) 6.0 [pH] [facility] Work Phone: Urine sediment bacteria coun t by microscopy (number/high power field)on 06-21-2021 Bacteria LM.HPF (Urine sed) [#/Area] 0 /[HPF] None Seen [facility] Work Phone: Urine specific gravity measu rementon 06-21-2021 Specific gravity (U) [Rel density] 1.010 [facility] Work Phone: Urobilinogen Auto test strip Ql (U)on 06-21-2021 Urobilinogen Ql (U) Normal mg/dl Normal [facility] Work Phone: Whole blood hemoglobin A1c/t otal hemoglobin ratio (mass fraction)on 06-21-2021 HbA1c (Bld) [Mass fraction] 6.9 % 3.8-5.6 [facility] Work Phone: Comment on above: Normal < 5.7 % Predi abetic 5.7 - 6.4 % Diabetic >or= 6.5 % Please note range changes. Culture, urineon 06-12-2021 Bacteria identified Cx Nom (U) Mixed Gram Pos & Gram Neg Org [facility] Work Phone: Body fluid lactate dehydroge nase measurement (enzymatic activity/volume) by pyruvateon 05-30-2021 LDH Pyruvate to lactate reaction (Body fld) [Catalytic activity/Vol] 39 Units/l Not Establ. [facility] Work Phone: Cerebrospinal fluid appearan ce descriptionon 05-30-2021 Appearance (CSF) CLOUDY Clear [facility] Work Phone: Cerebrospinal fluid cell cou nton 05-30-2021 Cell count panel (CSF) TNP [facility] Work Phone: Comment on above: Test not performed Cerebrospinal fluid color id entificationon 05-30-2021 Color (CSF) RED Colorless [facility] Work Phone: Cerebrospinal fluid glucose measurement (mass/volume)on 05-30-2021 Glucose (CSF) [Mass/Vol] 79 mg/dL 40-75 [facility] Work Phone: Cerebrospinal fluid lymphocy sincere count (number/volume)on 05-30-2021 Lymphocytes (CSF) [#/Vol] 20 % 40-80 [facility] Work Phone: Cerebrospinal fluid neutroph ils/100 leukocyteson 05-30-2021 Neutrophils/100 WBC (CSF) 80 % 0-6 [facility] Work Phone: Cerebrospinal fluid white bl ood cell counton 05-30-2021 WBC (CSF) [#/Vol] 85218 /mm-3 0-5 [facility] Work Phone: Cytology report of Body flui d Cyto stainon 05-30-2021 Cytology report Cyto stain Doc (Body fld) SEE PATHOLOGY REPORT [facility] Work Phone: Comment on above: Specimen submitted t o Anatomical Pathology Department for testing. Herpes simplex virus 1+2 DNA detection by probe and target amplification methodon 05-30-2021 HSV 1+2 DNA MILKA+probe Ql (Unsp spec) Negative Negative [facility] Work Phone: [phone] Laboratory - Specimen inform ationon 05-30-2021 Tube number Nom (CSF) [ID] 4 [facility] Work Phone: Mononuclear cells Auto (Body fld) [#/Vol]on 05-30-2021 Mononuclear cells (Body fld) [#/Vol] 0.014 10*3/uL [facility] Work Phone: No Panel Informationon 05-30 Body Fluid Mononuclear WBCs (%) 50.0 % [facility] Work Phone: Body Fluid Polynuclear WBCs (#) 0.014 10^3/uL [facility] Work Phone: Body Fluid Polynuclear WBCs (%) 50.0 % [facility] Work Phone: [phone] CSF RBC 06398 /mm-3 None seen [facility] Work Phone: CSF Total Protein 143.0 mg/dL 15.0-45.0 [facility] Work Phone: Herpes Simplex Virus II DNA (PCR) Negative Negative [facility] Work Phone: Comment on above: This test was develo ped and its performance characteristicsdetermined by [employer]. It has not been clearedor approved by the U.S. Food and Drug Administration. TheFDA has determined that such clearance or approval is notnecessary. This test is used for clinical purposes. Itshould not be regarded as investigational or research.Performed at: [address] [id number] Director: Joan Ye MD, Phone: [phone] Miscellaneous Test See comment [facility] Work Phone: Comment on above: TEST RESULT UNITS RE F INTERVALProtein Electro + Interp, CSFProtein, Total, CSF 129.9 High mg/dL 0.0-44.0Pre-Albumin, CSF 1.5 Low % 2.2-7.1Albumin, CSF 57.7 % 56.8-76.2Dvrfh-[id number], CSF 3.6 % 1.1-6.8Bojnw-9-Qhfmfhxc, CSF 12.8 High % 3.0-12.6Beta Globulin, CSF 15.4 % 7.3-17.9Gamma Globulin, CSF 9.1 % 3.0-13.0Protein electrophoresis scan will follow via computer, mail, or visual design lead delivery.M-Mazin Not Observed % Not ObservedP E Interpretation, CSFCSF protein electrophoresis reveals a slight increase in alpha 1, alpha 2, or beta globulin. The association of this observation with CSF pathology is uncertain and nonspecific. Clinical correlation would be indicated. Note: Oligoclonal banding is only detected by high resolution electrophoresis (test #[id number]). ____ TESTING PERFORMED AT [employer]. ORIGINAL REPORT ON FILE IN LAB CONTAINS ADDITIONAL TEST SITE INFORMATION. Review by pathologiston 05-03 Pathologist review Marciano (Unsp spec) [Interp] Reviewed [facility] Work Phone: Comment on above: Previous reported re sult: May follow Edited by: BEL on 05/31/21:1339Bloody specimen.Negative for malignant cells.Arden Mosqueda M.D. 05/31/21 AMENDED REPORT 05/31/21 1339 PATH REV previously reported as: May follow Basophil percentageon 2020 Chloride [Moles/Vol] 102 mmol/L 98-107 [facility] Work Phone: Glucose [Mass/Vol] 103 mg/dL 74-106 [facility] Work Phone: Comment on above: Fasting Glucose resu lt from 100 to 125 mg/dL suggests IMPAIRED HOMEOSTASIS per A.D.A. criteria.Please note revised GLUCOSE reference range effective 2017. Potassium [Moles/Vol] 3.9 mmol/L 3.5-5.1 [facility] Work Phone: Sodium [Moles/Vol] 136 mmol/L 136-145 [facility] Work Phone: Bilirubin Test strip Ql (U)o n 05-18-2021 Bilirubin Ql (U) Negative Negative [facility] Work Phone: Ketones Test strip Ql (U)on 05-18-2021 Ketones Ql (U) Negative Negative [facility] Work Phone: Laboratory - Chemistry and C hemistry - challengeon 05-18-2021 CO2 [Moles/Vol] 28.0 mmol/L 21.0-32.0 [facility] Work Phone: Magnesium [Mass/Vol] 2.5 mg/dL 1.6-2.6 [facility] Work Phone: Urea nitrogen/Creatinine [Mass ratio] 22.9 mg/mg 10-20 [facility] Work Phone: Nitrite Test strip Ql (U)on 05-18-2021 Nitrite Ql (U) Negative Negative [facility] Work Phone: No Panel Informationon 05-18 Estimated GFR (MDRD) Amer 105 mL/min >60 [facility] Work Phone: Comment on above: GFR Calc Estimated GFR (MDRD) Non-Af Amer 87 mL/min >60 [facility] Work Phone: Comment on above: Non- GFR Calc Protein Test strip Ql (U)on 05-18-2021 Protein Ql (U) 30 mg/dl Negative [facility] Work Phone: Serum or plasma calcium shane urement (mass/volume)on 05-18-2021 Calcium [Mass/Vol] 9.0 mg/dL 8.5-10.1 [facility] Work Phone: Serum or plasma creatinine m easurement (mass/volume)on 05-18-2021 Creatinine [Mass/Vol] 0.70 mg/dL 0.55-1.02 [facility] Work Phone: Comment on above: The validity of the calculated GFR & GFRAA in patients over 70 years has not been determined. Clinical correlation is essential. Serum or plasma urea nitroge n measurement (mass/volume)on 05-18-2021 Urea nitrogen [Mass/Vol] 16 mg/dL 7-18 [facility] Work Phone: Thin prep Papanicolaou smear with manual screeningon 05-18-2021 Thin prep Papanicolaou smear with manual screening 6 5-15 [facility] Work Phone: Urine blood detectionon 05-02 RBC Ql (U) Negative Negative [facility] Work Phone: Urine clarityon 05-18-2021 Clarity (U) Clear Clear [facility] Work Phone: Urine color determinationon 05-18-2021 Color (U) Yellow Yellow [facility] Work Phone: Urine glucose detectionon Glucose Ql (U) Normal mg/dl Normal [facility] Work Phone: Urine leukocyte esterase det ection by dipstickon 05-18-2021 Leukocyte esterase Test strip Ql (U) 100 /ul Negative [facility] Work Phone: Urine pHon 05-18-2021 pH (U) 7.0 [pH] [facility] Work Phone: Urine specific gravity measu rementon 05-18-2021 Specific gravity (U) [Rel density] 1.010 [facility] Work Phone: Urobilinogen Auto test strip Ql (U)on 05-18-2021 Urobilinogen Ql (U) Normal mg/dl Normal [facility] Work Phone: PLATELET COUNTon 01-08-2021 Platelet mean volume (Bld) [Entitic vol] 9.3 fL Normal 8.5-12.2 [facility] Comment on above: Performed By: #### Y VITK1 #### [facility] (DEFAULT) [address] [address] Platelets (Bld) [#/Vol] 270 10*3/uL Normal 150-393 [facility] Comment on above: Performed By: #### Y VITK1 #### [facility] (DEFAULT) [address] [address] Interpretation and review of laboratory results Normal [facility] Platelet mean volume (Bld) [Entitic vol] 9.3 fL 8.5 - 12.2 fL [facility] Platelets (Bld) [#/Vol] 270 10*3/uL 150 - 393 K/uL [facility] VITAMIN D, (1,25 DIHYDROXY)o n 01-08-2021 1,25-dihydroxyvitamin D [Mass/Vol] 50.6 pg/mL 20.0 - 79.0 pg/mL [facility] Interpretation and review of laboratory results Normal [facility] Vitamin D values hav e been shown to be falsely decreased in lipemic samples and should be interpreted with caution. [facility] ECGOrdered By: Gavin erwin 01-07-2021 [facility] Work Phone: FOLATE, SERUMon 01-06-2021 Folate >24.00 Normal >5.38 [facility] Comment on above: Performed By: #### Y VITK1 #### [facility] (DEFAULT) [address] [address] FOLATE, SERUMOrdered By: Antonio Arteaga on 01-06-2021 Folate [Mass/Vol] ng/mL >5.38 ng/mL [facility] Interpretation and review of laboratory results Normal [facility] VITAMIN Aon 01-06-2021 FREE RETINOL (VIT A) 88 mcg/dL Normal 38-98 [facility] Comment on above: Result Comment: Courtney min supplementation within 24 hours prior to blood draw may affect the accuracy of the results. This test was developed and its analytical performance characteristics have been determined by [facility] [place], [place]. It has not been cleared or approved by the U.S. Food and Drug Administration. This assay has been validated pursuant to the CLIA regulations and is used for clinical purposes. Test Performed at: [facility] [place] [address] Edward Meadows M.D., Ph.D.,Director of Laboratories Performed By: #### Y VITK1 #### [facility] (DEFAULT) [address] [address] VITAMIN Allen 01-06-2021 VITAMIN E, SERUM 7.7 mg/L Normal 5.5-17.0 [facility] Comment on above: Result Comment: ADDITIONAL INFORMATION This test was developed and its performance characteristics determined by [facility] in a manner consistent with CLIA requirements. This test has not been cleared or approved by the U.S. Food and Drug Administration. Test Performed by: [facility] [place] [address] Transport Rn: Robbie Sommers M.D. Ph.D.; CLIA# [id number] Performed By: #### Y FRANKIE #### [facility] (DEFAULT) [address] [address] VITAMIN K, SERUMon 1 VITAMIN K1,SERUM 0.61 ng/mL Normal 0.10-2.20 [facility] Comment on above: Result Comment: ADDITIONAL INFORMATION This test was developed and its performance characteristics determined by [facility] in a manner consistent with CLIA requirements. This test has not been cleared or approved by the U.S. Food and Drug Administration. Test Performed by: [facility] [place] [address] Transport Rn: Robbie Sommers M.D. Ph.D.; CLIA# [id number] Performed By: #### Y VITK1 #### [facility] (DEFAULT) [address] [address] CBC,PLATELETSon 01-05-2021 Hematocrit (Bld) [Volume fraction] 34.9 % Normal 34.9-44.3 [facility] Comment on above: Performed By: #### Y VITK1 #### [facility] (DEFAULT) [address] [address] Hemoglobin (Bld) [Mass/Vol] 11.3 g/dL Low 11.4-15.2 [facility] Comment on above: Performed By: #### Y VITK1 #### [facility] (DEFAULT) [address] [address] MCV (RBC) [Entitic vol] 94.3 fL Normal 79.6-97.7 [facility] Comment on above: Performed By: #### Y VITK1 #### [facility] (DEFAULT) [address] [address] Mean Cell Hgb 30.5 pg Normal 25.9-33.9 [facility] Comment on above: Performed By: #### Y VITK1 #### [facility] (DEFAULT) [address] [address] Mean Cell Hgb Conc 32.4 g/dL Normal 31.4-35.9 [facility] Comment on above: Performed By: #### Y VITK1 #### [facility] (DEFAULT) [address] [place] [address] Platelet mean volume (Bld) [Entitic vol] 9.0 fL Normal 8.5-12.2 [facility] Comment on above: Performed By: #### Y VITK1 #### [facility] (DEFAULT) [address] [address] Platelets (Bld) [#/Vol] 226 10*3/uL Normal 150-393 [facility] Comment on above: Performed By: #### Y VITK1 #### [facility] (DEFAULT) [address] [place] [address] RBC (Bld) [#/Vol] 3.70 10*6/uL Low 3.91-5.04 [facility] Comment on above: Performed By: #### Y VITK1 #### [facility] (DEFAULT) [address] [address] RBC Distribution 13.1 % Normal 10.8-14.9 [facility] Comment on above: Performed By: #### Y VITK1 #### [facility] (DEFAULT) [address] [place] [address] WBC (Bld) [#/Vol] 5.49 10*3/uL Normal 3.99-11.19 [facility] Comment on above: Performed By: #### Y VITK1 #### [facility] (DEFAULT) [address] [place] [address] Erythrocyte distribution width (RBC) [Ratio] 13.1 % 10.8 - 14.9 % [facility] Hematocrit (Bld) [Volume fraction] 34.9 % 34.9 - 44.3 % [facility] Hemoglobin (Bld) [Mass/Vol] 11.3 g/dL Low 11.4 - 15.2 g/dL [facility] Interpretation and review of laboratory results Abnormal [facility] MCH (RBC) [Entitic mass] 30.5 pg 25.9 - 33.9 pg [facility] MCHC (RBC) [Mass/Vol] 32.4 g/dL 31.4 - 35.9 g/dL [facility] MCV (RBC) [Entitic vol] 94.3 fL 79.6 - 97.7 fL [facility] Platelet mean volume (Bld) [Entitic vol] 9.0 fL 8.5 - 12.2 fL [facility] Platelets (Bld) [#/Vol] 226 10*3/uL 150 - 393 K/uL [facility] RBC (Bld) [#/Vol] 3.70 10*6/uL Low [facility] WBC (Bld) [#/Vol] 5.49 10*3/uL 3.99 - 11.19 K/uL [facility] CHEM 7 (LYTES,BUN,CREA,GLUC) on 01-05-2021 Anion gap [Moles/Vol] 13 mmol/L Normal 7-17 [facility] Comment on above: Performed By: #### Y VITK1 #### [facility] (DEFAULT) [address] [address] Chloride [Moles/Vol] 102 mmol/L Normal 98-108 [facility] Comment on above: Performed By: #### Y VITK1 #### [facility] (DEFAULT) [address] [address] CO2 [Moles/Vol] 25 mmol/L Normal 22-30 [facility] Comment on above: Performed By: #### Y VITK1 #### [facility] (DEFAULT) [address] [place] [address] Creatinine [Mass/Vol] 0.61 mg/dL Normal 0.50-1.20 [facility] Comment on above: Performed By: #### Y VITK1 #### [facility] (DEFAULT) [address] [address] EST GFR, >=60 Normal >=60 [facility] Comment on above: Performed By: #### Y VITK1 #### [facility] (DEFAULT) [address] [place] [address] EST GFR,Non >=60 Normal >=60 [facility] Comment on above: Performed By: #### Y VITK1 #### [facility] (DEFAULT) [address] [address] Glucose [Mass/Vol] 109 mg/dL High 70-99 [facility] Comment on above: Performed By: #### Y VITK1 #### [facility] (DEFAULT) [address] [address] Osmolality [Osmolality] 286 mosm/kg Normal 278-305 [facility] Comment on above: Performed By: #### Y VITK1 #### [facility] (DEFAULT) [address] [place] [address] Potassium [Moles/Vol] 3.6 mmol/L Normal 3.5-5.0 [facility] Comment on above: Performed By: #### Y VITK1 #### [facility] (DEFAULT) [address] [address] Sodium [Moles/Vol] 136 mmol/L Normal 133-143 [facility] Comment on above: Performed By: #### Y VITK1 #### [facility] (DEFAULT) [address] [address] Urea nitrogen [Mass/Vol] 16 mg/dL Normal 7-22 [facility] Comment on above: Performed By: #### Y VITK1 #### [facility] (DEFAULT) [address] [place] [address] Urea nitrogen/Creatinine [Mass ratio] 26 mg/mg Normal [facility] Comment on above: Performed By: #### Y VITK1 #### [facility] (DEFAULT) [address] [place] [address] Anion gap [Moles/Vol] 13 mmol/L 7 - 17 [facility]L [facility] Chloride [Moles/Vol] 102 mmol/L 98 - 10 8 [facility] CO2 [Moles/Vol] 25 mmol/L 22 - 30 mmol/L [facility] Creatinine [Mass/Vol] 0.61 mg/dL 0.50 - 1.20 mg/dL [facility] Glucose [Mass/Vol] 109 mg/dL High 70 - 99 mg/dL [facility] Interpretation and review of laboratory results Abnormal [facility] Osmolality Calc [Osmolality] 286 [facility] Potassium [Moles/Vol] 3.6 mmol/L 3.5 - 5.0 mmol/L [facility] Sodium [Moles/Vol] 136 mmol/L 133 - 143 mmol/L [facility] Urea nitrogen [Mass/Vol] 16 mg/dL 7 - 22 mg/dL [facility] Urea nitrogen/Creatinine [Mass ratio] 26 mg/mg [facility] Laboratory - Chemistry and C hemistry - challengeon 01-05-2021 GFR/1.73 sq M.predicted MDRD (S/P/Bld) [Vol rate/Area] mL/min/{1.73_m2} >=60 mL/min/1.7 3sqM [facility] MAGNESIUMon 01-05-2021 Magnesium [Mass/Vol] 2.1 mg/dL Normal 1.6-2.6 [facility] Comment on above: Performed By: #### Y VITK1 #### [facility] (DEFAULT) [address] [place] [address] Interpretation and review of laboratory results Normal [facility] Magnesium [Mass/Vol] 2.1 mg/dL 1.6 - 2 .6 mg/dL [facility] No Panel Informationon 01-05 [facility] URINE CULTUREOrdered By: Russell Cook on 01-05-2021 Bacteria identified Cx Nom (Unsp spec) Growth [facility] Bacteria identified Cx Nom (Unsp spec) 50,000-100,000 CFU/mL Mixed skin emi [facility] Multiple bacterial morphotypes present. Suggest appropriate recollection if clinically indicated. [facility] VITAMIN [id number] By: Luke Cheung on 01-05-2021 Cobalamin (Vitamin B12) [Mass/Vol] 1987 pg/mL High 211 - 911 pg/mL [facility] Comment on above: Testing of Methylmal onic Acid and Intrinsic Factor Blocking Antibody are recommended if clinical suspicion for pernicious anemia due to B12 deficiency is high for patients with intermediate B12 levels (211 to 400 pg/mL) to rule out spurious heterophile antibodies. Interpretation and review of laboratory results Abnormal [facility] VITAMIN B12on 01-05-2021 Cobalamin (Vitamin B12) [Mass/Vol] 1987 pg/mL High 211-911 [facility] Comment on above: Result Comment: Test ing of Methylmalonic Acid and Intrinsic Factor Blocking Antibody are recommended if clinical suspicion for pernicious anemia due to B12 deficiency is high for patients with intermediate B12 levels (211 to 400 pg/mL) to rule out spurious heterophile antibodies. Performed By: #### L ABHSTI1, TSH, C7ED, HFP #### [facility] (DEFAULT) [address] [address] CBC AND ELECTRONIC DIFFon Basophils (Bld) [#/Vol] 10*3/uL Normal 0.00-0.15 [facility] Comment on above: Performed By: #### Y VITK1 #### [facility] (DEFAULT) [address] [place] [address] Basophils/100 WBC (Bld) 0.3 % Normal [facility] Comment on above: Performed By: #### Y VITK1 #### [facility] (DEFAULT) [address] [place] [address] DIFF STATUS Electronic Differential Normal [facility] Comment on above: Performed By: #### Y VITK1 #### [facility] (DEFAULT) [address] [place] [address] Eosinophils (Bld) [#/Vol] 0.04 10*3/uL Normal 0.00-0.42 [facility] Comment on above: Performed By: #### Y VITK1 #### [facility] (DEFAULT) [address] [place] [address] Eosinophils/100 WBC (Bld) 0.6 % Normal [facility] Comment on above: Performed By: #### Y VITK1 #### [facility] (DEFAULT) [address] [place] [address] Hematocrit (Bld) [Volume fraction] 38.9 % Normal 34.9-44.3 [facility] Comment on above: Performed By: #### Y VITK1 #### [facility] (DEFAULT) [address] [place] [address] Hemoglobin (Bld) [Mass/Vol] 12.6 g/dL Normal 11.4-15.2 [facility] Comment on above: Performed By: #### Y VITK1 #### [facility] (DEFAULT) [address] [place] [address] Immature Grans % 0.3 % Normal [facility] Comment on above: Performed By: #### Y VITK1 #### [facility] (DEFAULT) [address] [address] Immature Grans Absolute <0.04 Normal <=0.09 [facility] Comment on above: Performed By: #### Y VITK1 #### [facility] (DEFAULT) [address] [place] [address] Lymphocytes (Bld) [#/Vol] 1.42 10*3/uL Normal 1.16-3.51 [facility] Comment on above: Performed By: #### Y VITK1 #### [facility] (DEFAULT) [address] [address] Lymphocytes/100 WBC (Bld) 22.5 % Normal [facility] Comment on above: Performed By: #### Y VITK1 #### [facility] (DEFAULT) [address] [address] MCV (RBC) [Entitic vol] 94.0 fL Normal 79.6-97.7 [facility] Comment on above: Performed By: #### Y VITK1 #### [facility] (DEFAULT) [address] [address] Mean Cell Hgb 30.4 pg Normal 25.9-33.9 [facility] Comment on above: Performed By: #### Y VITK1 #### [facility] (DEFAULT) [address] [address] Mean Cell Hgb Conc 32.4 g/dL Normal 31.4-35.9 [facility] Comment on above: Performed By: #### Y VITK1 #### [facility] (DEFAULT) [address] [address] Monocytes (Bld) [#/Vol] 0.63 10*3/uL Normal 0.22-0.87 [facility] Comment on above: Performed By: #### Y VITK1 #### [facility] (DEFAULT) [address] [address] Monocytes/100 WBC (Bld) 10.0 % Normal [facility] Comment on above: Performed By: #### Y VITK1 #### [facility] (DEFAULT) [address] [address] Nucleated RBC 0.0 /100 WBC Normal <=0.2 [facility] Comment on above: Performed By: #### Y VITK1 #### [facility] (DEFAULT) [address] [place] [address] Platelet mean volume (Bld) [Entitic vol] 9.0 fL Normal 8.5-12.2 [facility] Comment on above: Performed By: #### Y VITK1 #### [facility] (DEFAULT) [address] [place] [address] Platelets (Bld) [#/Vol] 266 10*3/uL Normal 150-393 [facility] Comment on above: Performed By: #### Y VITK1 #### [facility] (DEFAULT) [address] [place] [address] RBC (Bld) [#/Vol] 4.14 10*6/uL Normal 3.91-5.04 [facility] Comment on above: Performed By: #### Y VITK1 #### [facility] (DEFAULT) [address] [place] [address] RBC Distribution 13.1 % Normal 10.8-14.9 [facility] Comment on above: Performed By: #### Y VITK1 #### [facility] (DEFAULT) [address] [place] [address] Segs + Bands Auto 66.3 % Normal [facility] Comment on above: Performed By: #### Y VITK1 #### [facility] (DEFAULT) [address] [place] [address] Segs + Bands,Absolute Auto 4.17 K/uL Normal 1.64-7.28 [facility] Comment on above: Performed By: #### Y VITK1 #### [facility] (DEFAULT) [address] [place] [address] WBC (Bld) [#/Vol] 6.30 10*3/uL Normal 3.99-11.19 [facility] Comment on above: Performed By: #### Y VITK1 #### [facility] (DEFAULT) [address] [place] [address] Basophils (Bld) [#/Vol] 10*3/uL 0.00 - 0.15 K/uL [facility] Basophils/100 WBC (Bld) 0.3 % O [place] DIFF STATUS Electronic Differential [facility] Eosinophils (Bld) [#/Vol] 0.04 10*3/uL 0.00 - 0.42 K/uL [facility] Eosinophils/100 WBC (Bld) 0.6 % [facility] Erythrocyte distribution width (RBC) [Ratio] 13.1 % 10.8 - 14.9 % [facility] Hematocrit (Bld) [Volume fraction] 38.9 % 34.9 - 44.3 % [facility] Hemoglobin (Bld) [Mass/Vol] 12.6 g/dL 11.4 - 15.2 g/dL [facility] Immature granulocytes (Bld) [#/Vol] 10*3/uL <=0.09 K/uL [facility] Immature granulocytes/100 WBC (Bld) 0.3 % [facility] Lymphocytes (Bld) [#/Vol] 1.42 10*3/uL 1.16 - 3.51 K/uL [facility] Lymphocytes/100 WBC (Bld) 22.5 % [facility] MCH (RBC) [Entitic mass] 30.4 pg 25.9 - 33.9 pg [facility] MCHC (RBC) [Mass/Vol] 32.4 g/dL 31.4 - 35.9 g/dL [facility] MCV (RBC) [Entitic vol] 94.0 fL 79.6 - 97.7 fL [facility] Monocytes (Bld) [#/Vol] 0.63 10*3/uL 0.22 - 0.87 K/uL [facility] Monocytes/100 WBC (Bld) 10.0 % [facility] [place] Neutrophils (Bld) [#/Vol] 4.17 10*3/uL 1.64 - 7.28 K/uL [facility] Nucleated RBC/100 WBC (Bld) [Ratio] 0.0 % <=0.2 /100 WBC [facility] Platelet mean volume (Bld) [Entitic vol] 9.0 fL 8.5 - 12.2 fL [facility] Platelets (Bld) [#/Vol] 266 10*3/uL 150 - 393 K/uL [facility] RBC (Bld) [#/Vol] 4.14 10*6/uL [facility] Segmented neutrophils/100 WBC (Bld) 66.3 % [facility] WBC (Bld) [#/Vol] 6.30 10*3/uL 3.99 - 11.19 K/uL [facility] CHM 7 - EDon 01-04-2021 Anion gap [Moles/Vol] 10 mmol/L Normal 7-17 [facility] Comment on above: Performed By: #### L ABHSTI1, TSH, C7ED, HFP #### [facility] (DEFAULT) [address] [place] [address] Chloride [Moles/Vol] 102 mmol/L Normal 98-108 [facility] Comment on above: Performed By: #### L ABHSTI1, TSH, C7ED, HFP #### [facility] (DEFAULT) [address] [place] [address] CO2 [Moles/Vol] 29 mmol/L Normal 22-30 [facility] Comment on above: Performed By: #### L ABHSTI1, TSH, C7ED, HFP #### [facility] (DEFAULT) [address] [place] [address] Creatinine [Mass/Vol] 0.69 mg/dL Normal 0.50-1.20 [facility] Comment on above: Performed By: #### L ABHSTI1, TSH, C7ED, HFP #### [facility] (DEFAULT) [address] [place] [address] EST GFR, >=60 Normal >=60 [facility] Comment on above: Performed By: #### L ABHSTI1, TSH, C7ED, HFP #### [facility] (DEFAULT) [address] [place] [address] EST GFR,Non >=60 Normal >=60 [facility] Comment on above: Performed By: #### L ABHSTI1, TSH, C7ED, HFP #### [facility] (DEFAULT) [address] [place] [address] Glucose [Mass/Vol] 114 mg/dL High 70-99 [facility] Comment on above: Performed By: #### L ABHSTI1, TSH, C7ED, HFP #### [facility] (DEFAULT) [address] [place] [address] Osmolality [Osmolality] 288 mosm/kg Normal 278-305 [facility] Comment on above: Performed By: #### L ABHSTI1, TSH, C7ED, HFP #### [facility] (DEFAULT) [address] [place] [address] Potassium [Moles/Vol] 3.7 mmol/L Normal 3.5-5.0 [facility] Comment on above: Performed By: #### L ABHSTI1, TSH, C7ED, HFP #### [facility] (DEFAULT) [address] [place] [address] Sodium [Moles/Vol] 137 mmol/L Normal 133-143 [facility] Comment on above: Performed By: #### L ABHSTI1, TSH, C7ED, HFP #### [facility] (DEFAULT) [address] [place] [address] 22063 Urea nitrogen [Mass/Vol] 13 mg/dL Normal 7-22 [facility] Comment on above: Performed By: #### L ABHSTI1, TSH, C7ED, HFP #### [facility] (DEFAULT) [address] [place] [address] 60811 Urea nitrogen/Creatinine [Mass ratio] 19 mg/mg Normal [facility] Comment on above: Performed By: #### L ABHSTI1, TSH, C7ED, HFP #### [facility] (DEFAULT) [address] [place] [address] Anion gap [Moles/Vol] 10 mmol/L 7 - 17 mmol/L [facility] Chloride [Moles/Vol] 102 mmol/L 98 - 10 8 mmol/L [facility] CO2 [Moles/Vol] 29 mmol/L 22 - 30 mmol/L [facility] Creatinine [Mass/Vol] 0.69 mg/dL 0.50 - 1.20 mg/dL [facility] Glucose [Mass/Vol] 114 mg/dL High 70 - 99 mg/dL [facility]smolality] 288 [facility] Potassium [Moles/Vol] 3.7 mmol/L 3.5 - 5.0 mmol/L [facility] Sodium [Moles/Vol] 137 mmol/L 133 - 143 mmol/L [facility] Urea nitrogen [Mass/Vol] 13 mg/dL 7 - 22 mg/dL [facility] Urea nitrogen/Creatinine [Mass ratio] 19 mg/[facility] HEAD WITHOUT CONTRASTon 0 01-04-2021 CT HEAD WITHOUT CONTRAST EXAM: CT HEAD WITHOUT CONTRAST, 01/04/2021 3:20 PM COMPARISON: None. CLINICAL INDICATIONS: 75 years Female AMS; RELEVANT CLINICAL HISTORY: TECHNIQUE: A series of transaxial computerized tomographic images are obtained from base of skull to vertex without intravenous contrast. Axial whole-head and thin section posterior fossa slices are provided. Reformats: Sagittal and coronal. FINDINGS: No evidence of acute intracranial hemorrhage or evolving large vascular territory infarct. No focal mass effect, midline shift, or herniation. No extra-axial fluid collection. Ventricles are normal in size and configuration. Basilar cisterns are patent. Calvarium and skull base appear intact. No air-fluid levels in the paranasal sinuses. Mastoid air cells and middle ear cavities are clear. Visualized orbital structures are unremarkable. Atherosclerotic calcification of the internal carotid siphons. IMPRESSION: No acute intracranial findings on noncontrast head CT. Normal [facility] IMPRESSION: No acute intracranial findings on noncontrast head CT. [facility] EXAM: CT HEAD WITHOU T CONTRAST, 01/04/2021 3:20 PM COMPARISON: None. CLINICAL INDICATIONS: 75 years Female AMS; RELEVANT CLINICAL HISTORY: TECHNIQUE: A series of transaxial computerized tomographic images are obtained from base of skull to vertex without intravenous contrast. Axial whole-head and thin section posterior fossa slices are provided. Reformats: Sagittal and coronal. FINDINGS: No evidence of acute intracranial hemorrhage or evolving large vascular territory infarct. No focal mass effect, midline shift, or herniation. No extra-axial fluid collection. Ventricles are normal in size and configuration. Basilar cisterns are patent. Calvarium and skull base appear intact. No air-fluid levels in the paranasal sinuses. Mastoid air cells and middle ear cavities are clear. Visualized orbital structures are unremarkable. Atherosclerotic calcification of the internal carotid siphons. [facility] Abdirashid Beltrán MD - 01/04/2021 EXAM: CT HEAD WITHOUT CONTRAST, 01/04/2021 3:20 PM COMPARISON: None. CLINICAL INDICATIONS: 75 years Female AMS; RELEVANT CLINICAL HISTORY: TECHNIQUE: A series of transaxial computerized tomographic images are obtained from base of skull to vertex without intravenous contrast. Axial whole-head and thin section posterior fossa slices are provided. Reformats: Sagittal and coronal. FINDINGS: No evidence of acute intracranial hemorrhage or evolving large vascular territory infarct. No focal mass effect, midline shift, or herniation. No extra-axial fluid collection. Ventricles are normal in size and configuration. Basilar cisterns are patent. Calvarium and skull base appear intact. No air-fluid levels in the paranasal sinuses. Mastoid air cells and middle ear cavities are clear. Visualized orbital structures are unremarkable. Atherosclerotic calcification of the internal carotid siphons. IMPRESSION IMPRESSION: No acute intracranial findings on noncontrast head CT. [facility] Radiology Study observation (narrative) [facility] CT HEAD WITHOUT CONTRASTOrde red By: Abdirashid Beltrán on 01-04-2021 [facility] Work Phone: HEPATIC FUNCTION PANELon Albumin [Mass/Vol] 3.7 g/dL Normal 3.5-5.0 [facility] Comment on above: Performed By: #### L ABHSTI1, TSH, C7ED, HFP #### [facility] (DEFAULT) [address] [place] [address]358 ALP [Catalytic activity/Vol] 53 U/L Normal 32-126 [facility] Comment on above: Performed By: #### L ABHSTI1, TSH, C7ED, HFP #### [facility] (DEFAULT) [address] [place] [address] 91577 ALT [Catalytic activity/Vol] 21 U/L Normal 9-48 [facility] Comment on above: Performed By: #### L ABHSTI1, TSH, C7ED, HFP #### [facility] (DEFAULT) [address] [place] [address] 64321 AST [Catalytic activity/Vol] 18 U/L Normal 14-40 [facility] Comment on above: Performed By: #### L ABHSTI1, TSH, C7ED, HFP #### [facility] (DEFAULT) [address] [place] [address] 93237 Bilirubin [Mass/Vol] 0.5 mg/dL Normal <1.5 [facility] Comment on above: Performed By: #### L ABHSTI1, TSH, C7ED, HFP #### [facility] (DEFAULT) [address] [place] [address] 47068 Bilirubin.indirect [Mass/Vol] 0.1 mg/dL Normal <0.3 [facility] Comment on above: Performed By: #### L ABHSTI1, TSH, C7ED, HFP #### [facility] (DEFAULT) [address] [place] [address] 90171 Protein [Mass/Vol] 6.1 g/dL Low 6.4-8.3 [facility] Comment on above: Performed By: #### L ABHSTI1, TSH, C7ED, HFP #### [facility] (DEFAULT) [address] [place] [address] Albumin [Mass/Vol] 3.7 g/dL 3.5 - 5.0 g/dL [facility] ALP [Catalytic activity/Vol] 53 U/L 32 - 126 U/L [facility] ALT [Catalytic activity/Vol] 21 U/L 9 - 48 U/L [facility] AST [Catalytic activity/Vol] 18 U/L 14 - 40 U/L [facility] Bilirubin [Mass/Vol] 0.5 mg/dL <1.5 [facility] Bilirubin.direct [Mass/Vol] 0.1 mg/dL <0.3 [facility] Protein [Mass/Vol] 6.1 g/dL Low 6.4 - 8.3 g/dL [facility] HIGH SENSITIVITY TROPONIN I - SINGLE ORDERon 01-04-2021 hs-Troponin I 5 ng/L Normal <34 [facility] Comment on above: Order Comment: Acute Coronary Syndrome (ACS): Initial Evaluation and Management: [email or web address] Performed By: #### L ABHSTI1, TSH, C7ED, HFP #### [facility] (DEFAULT) [address] [place] [address] Interpretation and review of laboratory results Normal [facility] Troponin I.cardiac DL <= 0.01 ng/mL [Mass/Vol] 5 ng/L <34 [facility] - Chemistry and C hemistry - challengeon 01-04-2021 GFR/1.73 sq M.predicted MDRD (S/P/Bld) [Vol rate/Area] mL/min/{1.73_m2} >=60 mL/min/1.7 3sqM [facility] NOVEL CORONAVIRUS PCROrdered By: Ofelia Tellez on 01-04-2021 SARS-CoV-2 (COVID-19) RNA MILKA+probe Ql (Unsp spec) This test was performed using real time PCR and has been approved for the qualitative detection of SARS-CoV-2 nucleic acid. The test has been authorized by the FDA under an emergency use authorization for use by authorized laboratories. [facility] NOVEL CORONAVIRUS PCRon SARS-CoV-2 (COVID-19) RNA MILKA+probe Ql (Unsp spec) Not detected Normal NOT DETECTED [facility] Comment on above: Order Comment: Viral transport media or BAL specimen - Collection must be done while wearing N-95 mask, eye protection, gown and gloves. Please label ALL specimens as 2019-nCoV rule out and deliver by hand. This test was performed using real time PCR and has been approved for the qualitative detection of SARS-CoV-2 nucleic acid. The test has been authorized by the FDA under an emergency use authorization for use by authorized laboratories. Result Comment: [facility] Negative results do not preclude SARS-CoV-2 infection and should not be used as the sole basis for treatment or other patient management decisions. Optimum specimen types and timing for peak viral levels during infections caused by SARS-CoV-2 has not been determined. The possibility of a false negative result should especially be considered if the patient's recent exposures or clinical presentation suggest that SARS-CoV-2 infection is probable, and diagnostic tests for other causes of illness (e.g., other respiratory illness) are negative. Collection of a new specimen and re-testing may be necessary if the patient is critically ill or clinically deteriorating. Performed By: #### L ABCOR10 #### [facility] (DEFAULT) [address] [place] [address] No Panel Informationon 01-04 Interpretation and review of laboratory results Abnormal [facility] PROTIME-INRon 01-04-2021 INR Coag (PPP) [Relative time] 0.9 {INR} Normal 0.9-1.1 [facility] Comment on above: Performed By: #### Y VITK1 #### [facility] (DEFAULT) [address] [place] [address] 08511 PT Coag (PPP) [Time] 11.9 s Normal 11.9-14.2 [facility] Comment on above: Performed By: #### Y VITK1 #### [facility] (DEFAULT) [address] [address] INR Coag (Bld) [Relative time] 0.9 {INR} [facility] Interpretation and review of laboratory results Normal [facility] PT Coag (PPP) [Time] 11.9 s [facility] SARS-CoV-2 (COVID-19) RNA NA A+probe Ql (Unsp spec)Ordered By: Ofelia Tellez on 01-04-2021 Interpretation and review of laboratory results Normal [facility] SARS-CoV-2 (COVID-19) RNA MILKA+probe Ql (Resp) Not detected NOT DETECTED [facility] Comment on above: [facility] Negative results do not preclude SARS-CoV-2 infection and should not be used as the sole basis for treatment or other patient management decisions. Optimum specimen types and timing for peak viral levels during infections caused by SARS-CoV-2 has not been determined. The possibility of a false negative result should especially be considered if the patient's recent exposures or clinical presentation suggest that SARS-CoV-2 infection is probable, and diagnostic tests for other causes of illness (e.g., other respiratory illness) are negative. Collection of a new specimen and re-testing may be necessary if the patient is critically ill or clinically deteriorating. [facility] TSHon 01-04-2021 TSH 2.051 uIU/mL Normal 0.550-4.78 0 [facility] Comment on above: Performed By: #### L ABHSTI1, TSH, C7ED, HFP #### [facility] (DEFAULT) [address] [address] Interpretation and review of laboratory results Normal [facility] TSH Qn 2.051 m[IU]/L [facility] URINALYSISon 01-04-2021 Appearance (U) Cloudy Abnormal Clear [facility] Comment on above: Performed By: #### Y VITK1 #### [facility] (DEFAULT) [address] [place] [address] 16252 Bacteria PRESENT Abnormal ABSENT [facility] Comment on above: Performed By: #### Y VITK1 #### [facility] (DEFAULT) [address] [place] [address]308 Blood Urine Negative Normal Negative [facility] Comment on above: Performed By: #### Y VITK1 #### [facility] (DEFAULT) [address] [place] [address]884 Color (U) Yellow Normal Yellow [facility] Comment on above: Performed By: #### Y VITK1 #### [facility] (DEFAULT) [address] [place] [address] 02415 Glucose Ql (U) 100 mg/dL Abnormal Negative [facility] Comment on above: Performed By: #### Y VITK1 #### [facility] (DEFAULT) [address] [place] [address] 70458 Ketones Ql (U) Negative Normal Negative [facility] Comment on above: Performed By: #### Y VITK1 #### [facility] (DEFAULT) [address] [place] [address] 95618 Leukocyte esterase Test strip Ql (U) Moderate Abnormal Negative [facility] Comment on above: Performed By: #### Y VITK1 #### [facility] (DEFAULT) [address] [place] [address] 20026 Nitrites Urine Negative Normal Negative [facility] Comment on above: Performed By: #### Y VITK1 #### [facility] (DEFAULT) [address] [place] [address] 65235 pH (U) 6.5 [pH] Normal 5.0-7.0 [facility] Comment on above: Performed By: #### Y VITK1 #### [facility] (DEFAULT) [address] [place] [address] 35313 Protein Urine 100 mg/dL Abnormal Negative [facility] Comment on above: Performed By: #### Y VITK1 #### [facility] (DEFAULT) [address] [place] [address] 34019 RBC Urine 0-2 Normal 0-2 [facility] Comment on above: Performed By: #### Y VITK1 #### [facility] (DEFAULT) [address] [place] [address] 88626 Specific [place] Urine 1.020 Normal >1.00 1-<1. 035 [facility] Comment on above: Performed By: #### Y VITK1 #### [facility] (DEFAULT) [address] [place] [address] 20888 Squamous/Epithelial Cells 2-5/hpf = 2+ Normal 1/hpf = 1+, 2-5/hpf = 2+, 0/hpf = 0+, ABSENT [facility] Comment on above: Performed By: #### Y VITK1 #### [facility] (DEFAULT) [address] [place] [address] 35059 Urobilinogen Urine 0.2 E.U./dL Normal 0.2-1.0 [facility] Comment on above: Performed By: #### Y VITK1 #### [facility] (DEFAULT) [address] [place] [address] 46216 WBC LM.HPF (Urine sed) [#/Area] /[HPF] Abnormal 0-5 [facility] Comment on above: Performed By: #### Y VITK1 #### [facility] (DEFAULT) [address] [place] [address] 27738 URINALYSISOrdered By: Zoila Senior on 01-04-2021 Appearance (U) Cloudy Abnormal Clear [facility] Bacteria LM Ql (Urine sed) PRESENT Abnormal ABSENT [facility] Color (U) Yellow Yellow [facility] Glucose Test strip (U) [Mass/Vol] 100 mg/dL Abnormal Negative [facility] Interpretation and review of laboratory results Abnormal [facility] Ketones (U) [Mass/Vol] Negative Negative [facility] Leukocyte esterase Test strip Ql (U) Moderate Abnormal Negative [facility] Nitrite Ql (U) Negative Negative [facility] pH (U) 6.5 [pH] 5.0 - 7.0 [facility] Protein (U) [Mass/Vol] 100 mg/dL Abnormal Negative [facility] RBC (U) [#/Vol] Negative Negative [facility] RBC LM.HPF (Urine sed) [#/Area] 0-2 0 - 2 /HPF [facility] Specific gravity (U) [Rel density] 1.020 [facility] Squamous/Epithelial Cells 2-5/hpf = 2+ 1/hpf = 1+, 2-5/hpf = 2+, 0/hpf = 0+, ABSENT [facility] Urobilinogen (U) [Mass/Vol] 0.2 E.U./dL 0.2 - 1.0 [facility] WBC LM.HPF (Urine sed) [#/Area] /[HPF] Abnormal 0 - 5 /HPF [facility] URINE CULTUREon 01-04-2021 Bacteria identified Cx Nom (U) Normal [facility] Comment on above: Order Comment: For i ndwelling catheters, specimen collection is acceptable on catheter day 1 and 2 only. [place] top vacutainer. Urine must be to the fill line to process (4mls). If minimum volume, send urine in a yellow top vacutainer tube. Multiple bacterial morphotypes present. Suggest appropriate recollection if clinically indicated. Result Comment: Grow 3273MIXED SKIN FLORAMIXED SKIN EMI 50,000-100,000 CFU/mL Mixed skin emi Performed By: #### U R #### [facility] (DEFAULT) [address] [place] [address] 88414 VITAMIN D, (1,25 DIHYDROXY)o n 01-04-2021 1,25-Dihydroxyvitamin D 50.6 pg/mL Normal 20.0-79.0 O [facility] Comment on above: Order Comment: Vitam in D values have been shown to be falsely decreased in lipemic samples and should be interpreted with caution. Performed By: #### D 125 #### [facility] (DEFAULT) [address] [place] [address] 78632 XR CHEST AP PORTABLE EDon XR CHEST AP PORTABLE ED EXAM: XR CHEST A P PORTABLE ED, 01/04/2021 14:15 PM COMPARISON: No prior studies available for comparison. CLINICAL INDICATIONS: pneumonia RELEVANT CLINICAL HISTORY: FINDINGS: (Adequate technique) Implanted Devices: None Thorax: Low lung volumes but grossly clear. The heart size is in the upper limits of normal. Atherosclerotic calcifications are evident in the aorta. No pleural effusion or pneumothorax. There are degenerative changes in the shoulders and spine. IMPRESSION: No focal consolidation identified. Normal [facility] IMPRESSION: No focal consolidation identified. OLOGY EXAM: XR CHEST AP PO RTABLE ED, 01/04/2021 14:15 PM COMPARISON: No prior studies available for comparison. CLINICAL INDICATIONS: pneumonia RELEVANT CLINICAL HISTORY: FINDINGS: (Adequate technique) Implanted Devices: None Thorax: Low lung volumes but grossly clear. The heart size is in the upper limits of normal. Atherosclerotic calcifications are evident in the aorta. No pleural effusion or pneumothorax. There are degenerative changes in the shoulders and spine. [facility] Rashad Mcgovern MD - 01/04/2021 EXAM: XR CHEST AP PORTABLE ED, 01/04/2021 14:15 PM COMPARISON: No prior studies available for comparison. CLINICAL INDICATIONS: pneumonia RELEVANT CLINICAL HISTORY: FINDINGS: (Adequate technique) Implanted Devices: None Thorax: Low lung volumes but grossly clear. The heart size is in the upper limits of normal. Atherosclerotic calcifications are evident in the aorta. No pleural effusion or pneumothorax. There are degenerative changes in the shoulders and spine. IMPRESSION IMPRESSION: No focal consolidation identified. [facility] Radiology Study observation (narrative) [facility] XR CHEST AP PORTABLE EDOrder ed By: Rashad Shaniqua on 01-04-2021 [facility] Work Phone: Cult Urineon 01-21-2020 Cult Urine Test performed at [facility] ORGANISM: *Klebsiella oxytoca (ID: 9) >100,000 CFU/ml CLSI breakpoints for therapy of uncomplicated UTI due to E. coli, K. pneumoniae or P. mirabilis were applied and may be used to predict the activity of oral agents (cefdinir, cefpodoxime, cefuroxime, and cephalexin). Normal [facility] Comment on above: Performed By: #### C _URI #### [facility] [address] [place] [address] Basic Metabolic Panelon 07-0 Anion gap [Moles/Vol] 9 mmol/L Normal 9-18 [facility] Comment on above: Performed By: #### B MP #### [place] [address] Calcium [Mass/Vol] 7.0 mg/dL Low 8.5-10.2 [facility] Comment on above: Performed By: #### B MP #### [place] [address] Chloride [Moles/Vol] 102 mmol/L Normal 97-105 [facility] Comment on above: Performed By: #### B MP #### [place] [address] CO2 Blood 22 mmol/L Normal 22-30 [facility] Comment on above: Performed By: #### B MP #### [place] [address] Creatinine [Mass/Vol] 0.58 mg/dL Normal 0.58-0.96 [facility] Comment on above: Performed By: #### B MP #### [place] [address] Glucose [Mass/Vol] 192 mg/dL High 74-99 [facility] Comment on above: Result Comment: The [place] Diabetes Association (ADA) provides guidance for cutoff values for fasting glucose and random glucose. The ADA defines fasting as no caloric intake for at least 8 hours.Fasting plasma glucose results between 100 to 125 mg/dL indicate increased risk for diabetes (prediabetes). Fasting plasma glucose results greater than or equal to 126 mg/dL meet the criteria for diagnosis of diabetes. In the absence of unequivocal hyperglycemia, results should be confirmed by repeat testing. In a patient with classic symptoms of hyperglycemia or hyperglycemic crisis, random plasma glucose results greater than or equal to 200 mg/dL meet the criteria for diagnosis of diabetes. Reference: Standards of Medical Care in Diabetes 2016; [place] Diabetes Association. Diabetes Care. 2016;39(Suppl 1). Performed By: #### B MP #### [place] [address] Potassium [Moles/Vol] 4.0 mmol/L Normal 3.7-5.1 [facility] Comment on above: Performed By: #### B MP #### [place] [address] Sodium [Moles/Vol] 133 mmol/L Low 136-144 [facility] Comment on above: Performed By: #### B MP #### [place] [address] Urea nitrogen [Mass/Vol] 9 mg/dL Normal 7-21 [facility] Comment on above: Performed By: #### B MP #### [place] [address] Hemogram/Diffon 12-03-2019 Abs Immature Grans 0.04 thou/cmm Normal 0.00-0.05 [facility] Comment on above: Performed By: #### C BCD1 #### [place] [address] Abs Neut (ANC) 7.31 thou/cmm High 1.56-6.13 [facility] Comment on above: Performed By: #### C BCD1 #### [place] [address] Abs. Baso 0.03 thou/cmm Normal 0.01-0.08 [facility] Comment on above: Performed By: #### C BCD1 #### [facility] [address] [place] [address] Abs. Darke 0.75 thou/cmm High 0.27-0.70 [facility] Comment on above: Performed By: #### C BCD1 #### [facility] [address] [place] [address] Basophils/100 WBC (Bld) 0.3 % Normal A [facility] Comment on above: Performed By: #### C BCD1 #### [facility] [address] [place] [address] Eosinophils (Bld) [#/Vol] 0.07 thou/cmm Normal 0.00-0.31 [facility] Comment on above: Performed By: #### C BCD1 #### [facility] [address] [place] [address] Eosinophils/100 WBC (Bld) 0.7 % Normal [facility] Comment on above: Performed By: #### C BCD1 #### [facility] [address] [place] [address] Erythrocyte distribution width (RBC) [Ratio] 14.8 % High 11.7-14.4 [facility] Comment on above: Performed By: #### C BCD1 #### [facility] [address] [place] [address] Hematocrit (Bld) [Volume fraction] 35.2 % Normal 34.1-44.9 [facility] Comment on above: Performed By: #### C BCD1 #### [facility] [address] [place] [address] Hemoglobin (Bld) [Mass/Vol] 11.6 g/dL Normal 11.2-15.7 [facility] Comment on above: Performed By: #### C BCD1 #### [facility] [address] [place] [address] Immature Grans 0.40 % Normal [facility] Comment on above: Performed By: #### C BCD1 #### [facility] [address] [place] [address] Lymphocytes (Bld) [#/Vol] 1.45 thou/cmm Normal 1.18-3.74 [facility] Comment on above: Performed By: #### C BCD1 #### [facility] [address] [place], [place] [address] Lymphocytes/100 WBC (Bld) 15.0 % Normal [facility] Comment on above: Performed By: #### C BCD1 #### [facility] [address] [place], [place] [address] MCH (RBC) [Entitic mass] 31.0 pg Normal 25.6-32.2 [facility] Comment on above: Performed By: #### C BCD1 #### [facility] [address] [place], [place] [address] MCHC (RBC) [Mass/Vol] 33.0 % Normal 31.6-34.8 [facility] Comment on above: Performed By: #### C BCD1 #### [facility] [address] [place], [place] [address] MCV (RBC) [Entitic vol] 94.1 fL Normal 79.4-94.8 [facility] Comment on above: Performed By: #### C BCD1 #### [facility] [address] [place], [place] [address] Monocytes/100 WBC (Bld) 7.8 % Normal [facility] Comment on above: Performed By: #### C BCD1 #### [facility] [address] [place], [place] [address] Platelet mean volume (Bld) [Entitic vol] 9.3 fL Low 9.4-12.3 [facility] Comment on above: Performed By: #### C BCD1 #### [facility] [address] [place], [place] [address] Platelets (Bld) [#/Vol] 193 thou/cmm Normal 182-369 [facility] Comment on above: Performed By: #### C BCD1 #### [facility] [address] [place], [place] [address] RBC (Bld) [#/Vol] 3.74 mil/cmm Low 3.93-5.22 [facility] Comment on above: Performed By: #### C BCD1 #### [facility] [address] [place] [address] RDW SD 50.8 fl High 36.4-46.3 [facility] Comment on above: Performed By: #### C BCD1 #### [place] [address] Seg Neutrophil 75.8 % Normal [facility] Comment on above: Performed By: #### C BCD1 #### [place] [address] WBC (Bld) [#/Vol] 9.65 thou/cmm Normal 3.98-10.04 [facility] Comment on above: Performed By: #### C BCD1 #### [place] [address] MDRD GFRon 12-03-2019 GFR/1.73 sq M predicted among non-blacks MDRD (S/P/Bld) [Vol rate/Area] mL/min/{1.73_m2} Normal >60mL/min/ 1.73m2 [facility] Comment on above: Result Comment: If t he patient is , multiply the result by 1.210. Performed By: #### G FR #### [place] [address] Glucose Meteron 12-02-2019 Glucose [Mass/Vol] 108 mg/dL High 70-99 [facility] Comment on above: Result Comment: RN N OTIFIED Performed By: #### G LMET #### [place] [address] Surgical Tissue Examon 12-01 Surgical Tissue Exam Test performed at [place] [address] NAME: MADELYN LOVE REQUESTING: SAMUEL SHEEHAN M.D. FINAL DIAGNOSIS: RECTAL MUCOSAL SEGMENT, RESECTION - BENIGN RECTAL SEGMENT WITH FOCAL MUCOSAL EROSION AND DEGENERATIVE CHANGES. OPERATIVE PROCEDURE: Delorme procedure CLINICAL INFORMATION: Rectal prolapse GROSS DESCRIPTION: Rectal mucosal resection Received in formalin labeled rectal mucosal resection is a segment of mucosa measuring 4.3 cm in length with an internal circumference of 10.2 cm. The outer surface is brown-hernandez, roughened and dull. The margins are inked orange and blue. The mucosal segment is opened to reveal hernandez, glistening and slightly folded. The average wall thickness is 0.2 cm. Durability Engineer sections are submitted in 2 cassettes. RSA/pkp RAYMOND LUNA M.D., PATHOLOGIST (Electronic signature on file) Signed out: 12/09/2019 14:57 PRINTED: 12/09/[address] [facility] Comment on above: Performed By: #### S URG #### [facility] [address] [place] [address] XR COLON SINGLE CONTRASTon 0 09-27-2019 XR COLON SINGLE CONTRAST * * *Final Report* * * DATE OF EXAM: Sep 27 2019 10:37AM [id number] - XR COLON SINGLE CONTRAST / PROCEDURE REASON: multiple diagnoses * * * * Physician Interpretation * * * * EXAM TITLE: XR COLON SINGLE CONTRAST DATE: 09/27/2019 12:18 PM INDICATION: Rectal bleeding and rectal pain. Clinical concern for rectovaginal fistula. History of diverticulosis coli. COMPARISON: None. FINDINGS: Fluoroscopy was performed by the radiology physician's assistant merchandiser. 2 minutes 42 seconds of fluoroscopy time was used. Water-soluble contrast was used because of clinical concern for fistula. This results in some limitations in image detail. Furthermore, there is scattered retained fecal material making it difficult to exclude small polypoid lesions. Contrast flowed freely through the colon to the level of the cecum. There is redundancy of loops of bowel. Scattered diverticulosis coli is noted and this is greatest at the sigmoid colon. There is no evidence for colovesical fistula as questioned. No ulceration of the mucosa is identified. There is no annular or obstructing lesion. IMPRESSION: Diverticulosis coli. No evidence for colovesical fistula. Center Lead Consultant: PSCB Transcribe Date/Time: Sep 27 2019 12:18P Dictated by : JORGE DEE MD This examination was interpreted and the report reviewed and electronically signed by: JORGE DEE MD on Sep 27 2019 12:20PM EST Normal [facility] ALLIED HEALTHon 08-18-2019 ALLIED HEALTH HNO ID: [id number] Author: Aurora Gann (Rt) Service: ? Author Type: Industrial Health Engineer Type: Allied Health Filed: 08/18/2019 1:57 PM Note Text: Radiology Service Progress Note DATE OF SERVICE: August 18, 2019 TIME: 1:30 PM PATIENT IDENTITY VERIFICATION COMPLETED USING TWO (2) STANDARD IDENTIFIERS: Name and Date of confirmed by patient verbally and Name and Date of confirmed by identification band. PATIENT GENDER DATA: Female. status: : No status: NO. PATIENT RELEVANT IMPLANT DATA REVIEWED: Yes ALLERGIES: Reviewed and unchanged CONTRAST ALLERGY: NO. EXAM: MRI - CONTRAST TYPE: GROUP II PERIPHERAL IV DATA: Ambulatory: A peripheral IV was started in the Left antecubital site with a Angio cath/Butterfly: 22 gauge. RADIOLOGY DEPARTMENT: MR; Exam(s) Completed: Body: perineum fistula SIGNATURE: Petra Denny MRI , Jeni Dixon RT, Kinjal Harrison RT PATIENT NAME: Madelyn Love DATE: August 18, 2019 TIME: 1:30 PM [facility] MRI PERINEUM WO/W IVCONon MRI PERINEUM WO/W IVCON * * *Final Repor t* * * DATE OF EXAM: Aug 18 2019 1:58PM [facility] [id number] - MRI PERINEUM WO/W IVCON / PROCEDURE REASON: Anorectal fissure * * * * Physician Interpretation * * * * MRI OF THE PELVIS WITHOUT AND WITH CONTRAST (PERIANAL FISTULA PROTOCOL) CLINICAL HISTORY: Evaluate for rectovaginal fistula. COMPARISON: None. TECHNIQUE: Magnet: Siemens 3T TrioTim scanner. Multiphase contrast MRI scan. Contrast: IV: 10 ml of Dotarem RESULT: Status post hysterectomy. The study is limited due to lack of rectal contrast. Within these constraints there is a 1.1 cm in width by 1 cm in length hypoenhancing soft tissue track/thickening extending from the anterior lower rectal wall just left of midline towards the posterior vaginal wall (series 19 image 87). There is no gas within the vagina. This could represent a postoperative change of an (e.g. a fibrous tract) or could represent a closed/collapsed fistula. This abnormality is seen approximately 3.5 cm superior to the anal verge. Urinary bladder is unremarkable. No thickened or dilated bowel loops identified. Other: Bony and soft tissue structures intact. LYMPH NODES: None. OTHER FINDINGS: None. IMPRESSION: Limited exam due to lack of rectal contrast. There is a short hypoenhancing soft tissue tract extending from the anterior lower rectal wall towards the posterior wall of the upper vagina. Given lack of gas in the vagina this is not conclusive for rectovaginal fistula and may merely represent a postoperative finding post hysterectomy. For further radiographic evaluation, consider noncontrast barium enema. V Center Lead Consultant: ALESHA Transcribe Date/Time: Aug 18 2019 3:14P Dictated by : RODRIGUEZ LOZOYA DO This examination was interpreted and the report reviewed and electronically signed by: PRINCESS SERRA MD on Aug 18 2019 4:56PM EST [id number] [facility] MRI DYNAMIC PELVIS WO IVCONo n 08-10-2019 MRI DYNAMIC PELVIS WO IVCON * * *Final Report* * * DATE OF EXAM: Aug 10 2019 10:44AM [id number] - MRI DYNAMIC PELVIS WO IVCON / PROCEDURE REASON: Other female genital prolapse * * * * Physician Interpretation * * * * EXAMINATION: DYNAMIC MRI OF THE WITHOUT INTRAVENOUS CONTRAST CLINICAL HISTORY: genital prolapse, perineal pain TECHNIQUE: Multiplanar, multi-sequence magnetic resonance images of the pelvis were performed without intravenous contrast. Static images were obtained at rest, with straining, and during Kegel maneuvers. Dynamic imaging was performed with straining and maximal strain. All images were obtained with patient in supine position. IV Contrast: None COMPARISON: None available. FINDINGS: Anatomic Evaluation: Hysterectomy. Symmetric appearance of the levator ani muscles. Functional Evaluation: [place] used for evaluation of prolapse: Pubococcygeal line Levator hiatus (H line) * Rest: 7.6 cm, widened. * Defection/Maximal strain: 6.4 cm, mildly widened. Anorectal junction location relative to PCL (M line) * Rest: 3.1 cm below, low lying. * Defecation/Maximal strain: 4.1 cm below. * Rectal descent (Max strain position - rest position): Small descent. Anterior Compartment Bladder base location relative to the PCL Rest: 2.1 cm below. Defecation/Maximal strain: 4.4 cm . Findings are consistent with moderate cystocele. Urethral hypermobility: 56 Middle Compartment Vaginal apex location relative to PCL Rest: 1 cm above. Defecation/Maximal strain: 0.8 cm below. This is consistent with small vaginal descent. Posterior Compartment Anorectal angle Rest: 153 degrees; Kegel: 133 degrees; Defecation/Maximal strain: 140 degrees. Findings consistent with widened resting angle without significant narrowing during Kegel or expected widening during maximal strain. Rectal Intussusception: Not present Rectocele: Absent Peritoneocele/Enterocele/S igmoidocele: Absent Other: No other significant findings. IMPRESSION: Anterior compartment: Moderate cystocele and urethra hypermobility. Medial compartment: Small descent of the vaginal apex. Posterior compartment: No rectocele. Mild rectal descent. Descending perineal syndrome. Center Lead Consultant: PSCB Transcribe Date/Time: Aug 12 2019 8:22A Dictated by : ARLEEN KHAN MD This examination was interpreted and the report reviewed and electronically signed by: ARLEEN KHAN MD on Aug 12 2019 5:43PM EST Normal [facility] XR ESOPHAGRAMon 06-30-2019 XR ESOPHAGRAM * * *Final Report* * * * * * SEE BOTTOM OF REPORT FOR ADDENDED TEXT * * * DATE OF EXAM: Jun 30 2019 3:38PM [id number] [id number] - XR ESOPHAGRAM / PROCEDURE REASON: Gastroesophageal reflux disease, esophagitis presence not specified * * * * Physician Interpretation * * * * * * * * * * * * ORIGINAL REPORT * * * * * * * * EXAM TITLE: XR ESOPHAGRAM DATE: 06/30/2019 INDICATION: Heartburn. Increased gas and bloating. The patient has had previous gastric bypass. COMPARISON: None. This study was performed by Mary Reilly RPA. Images were submitted for my interpretation. This patient standing upright, swallows of barium were given orally and AP and lateral videofluoroscopy was performed. On the swallows, there is a tiny Zenker's diverticulum measuring under 10 mm in size. Small web is seen anterior hypopharynx at approximately C5 level. Otherwise normal pharyngeal and laryngeal motion with swallowing. Examination of the remainder the esophagus shows small sliding-type hiatal hernia. No fixed stricture. No ulcerations or erosions. A 13 mm barium tablet was given orally which passed freely into the stomach. Occasional tertiary contractions within the esophagus. No demonstrable reflux. IMPRESSION: Small hiatal hernia. Tertiary contractions. 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 * * * * * * * * ADDENDUM #1 * * * * * * * * Addendum: 64 images were obtained. 36 seconds of fluoroscopic time utilized. Center Lead Consultant: PSCDonovan Transcribe Date/Time: Jul 02 2019 2:12P Dictated by : SKYE PEPPER MD This examination was interpreted and the report reviewed and electronically signed by: SKYE PEPPER MD on Jul 02 2019 2:09PM EST This document has been addended by: SKYE PEPPER MD on Jul 02 2019 2:13PM EST Normal [facility] CBC with Diffon 12-17-2018 AB IMMATURE NEUT 0.03 K/UL Normal 0.0-0.1 [facility] [place] Comment on above: Performed By: #### C HAM MARKER #### [address] [address] ABS BASO 0.03 K/UL Normal 0.00-0.22 [place] Comment on above: Performed By: #### C HAM MARKER #### [facility] [address] [address] ABS EOS 0.04 K/UL Normal 0-0.45 [place] Comment on above: Performed By: #### C HAM MARKER #### [facility] [address] [address] ABS NEUTROPHILS 5.21 K/UL Normal 1.8-7.7 [facility] Comment on above: Performed By: #### C HAM MARKER #### [address] [address] ABS.NEUT.CALCULATED Normal [place] Comment on above: Result Comment: 5.21 Performed at [address] [address] Performed By: #### C HAM MARKER #### [address] [address] Basophils/100 WBC (Bld) 0.40 % Normal 0-1 L [facility] Comment on above: Performed By: #### C HAM MARKER #### [facility] [address] [address] DIFF TYPE AUTO DIFF Normal [place] Comment on above: Performed By: #### C HAM MARKER #### [place] [address] [place] [address] Eosinophils/100 WBC (Bld) 0.50 % Normal 0-3 [place] Comment on above: Performed By: #### C HAM MARKER #### [place] [address] [place] [address] Erythrocyte distribution width (RBC) [Ratio] 17.1 % High 11.7-15.0 [place] Comment on above: Performed By: #### C HAM MARKER #### [place] [address] [place] [address] Hematocrit (Bld) [Volume fraction] 35.4 % Low 36-44 [place] Comment on above: Performed By: #### C HAM MARKER #### [place] [address] [place] [address] Hemoglobin (Bld) [Mass/Vol] 10.8 g/dL Low 12.0-15.0 [place] Comment on above: Performed By: #### C HAM MARKER #### [place] [address] [place] [address] Lymphocytes (Bld) [#/Vol] 1.49 10*3/uL Normal 1.2-3.2 [place] Comment on above: Performed By: #### C HAM MARKER #### [place] [address] [place] [address] Lymphocytes/100 WBC (Bld) 20.30 % Normal 20-40 [place] Comment on above: Performed By: #### C HAM MARKER #### [place] [address] [place] [address] MCH (RBC) [Entitic mass] 28.4 pg Normal 26-34 [place] Comment on above: Performed By: #### C HAM MARKER #### [place] [address] [place] [address] MCHC (RBC) [Mass/Vol] 30.5 % Low 31-37 [facility] Comment on above: Performed By: #### C HAM MARKER #### [place] [address] [place] [address] MCV (RBC) [Entitic vol] 93.2 fL Normal 80-100 L [facility] Comment on above: Performed By: #### C HAM MARKER #### [facility] [address] [place] [address] MEAN PLT VOL 10.2 CU Normal 7.0-12.6 [place] Comment on above: Performed By: #### C HAM MARKER #### [facility] [place] [address] [facility] [address] Monocytes (Bld) [#/Vol] 0.54 10*3/uL Normal 0-0.8 [place] Comment on above: Performed By: #### C HAM MARKER #### [facility] [place] [address] [place] [address] Monocytes/100 WBC (Bld) 7.40 % Normal 0-8 L [facility] Comment on above: Performed By: #### C HAM MARKER #### [facility] [place] [address] [place] [address] Neutrophils/100 WBC (Bld) 0.40 % Normal 0.0-1.0 [place] Comment on above: Performed By: #### C HAM MARKER #### [facility] [place] [address] [place] [address] Neutrophils/100 WBC (Bld) 71.00 % High 50-70 [place] Comment on above: Performed By: #### C HAM MARKER #### [facility] [place] [address] [place] [address] NRBC'S 0 /100 WBC Normal 0 [place] Comment on above: Performed By: #### C HAM MARKER #### [facility] [place] [address] [place] [address] Platelets (Bld) [#/Vol] 312 10*3/uL Normal 150-450 [place] Comment on above: Performed By: #### C HAM MARKER #### [facility] [place] [address] [place] [address] RBC (Bld) [#/Vol] 3.80 M/UL Low 4.0-4.9 [facility] Comment on above: Performed By: #### C HAM MARKER #### [facility] [place] [address] [place] [address] RDW-SD 58.8 FL High 37.0-54.0 [place] Comment on above: Performed By: #### C HAM MARKER #### [address] [address] WBC (Bld) [#/Vol] 7.3 10*3/uL Normal 4.5-11.0 [facility] Comment on above: Performed By: #### C HAM MARKER #### [address] [address] Vitamin B1,Whole Bldon 12-02 Vitamin B1,Whole Bld [facility] Comment on above: Result Comment: 224. 8 Reference range: 84.0 to 213.0 Unit: nmol/L This assay measures the concentration of thiamine diphosphate (TDP), the primary active form of vitamin B1. Approximately 90 percent of vitamin B1 present in whole blood is TDP. Thiamine and thiamine monophosphate, which comprise the remaining 10 percent, are not measured. This test was developed and its performance characteristics determined by [facility]'s [facility] [place] ([facility] It has not been cleared or approved by the FDA. [facility] is regulated under CLIA as qualified to perform high complexity testing. This test is used for clinical purposes. It should not be regarded as investigational or for research. Performed at the [facility] unless otherwise noted. Performed By: #### C HAM MARKER #### [address] [address] COPPERon 11-30-2018 COPPER [facility] Comment on above: Result Comment: 102 Reference range: 85 to 155 Unit: ug/dL This test was developed and its performance characteristics determined by [facility] [place] ( [facility]). It has not been cleared or approved by the FDA. [facility] is regulated under CLIA as qualified to perform high complexity testing. This test is used for clinical purposes. It should not be regarded as investigational or for research. Performed at the [facility] unless otherwise noted. Performed By: #### C OPS #### [address] [address] B12on 11-26-2018 Cobalamin (Vitamin B12) [Mass/Vol] Normal 211-946 [place] Comment on above: Result Comment: 435 Deficient=<174 pg/ml Eynlkeexjybvd=723-776 pg/ml Performed at [address] [address] Performed By: #### B 12 #### [facility] [address] [address] CBC with Diffon 11-26-2018 AB IMMATURE NEUT 0.04 K/UL Normal 0.0-0.1 [facility] [place] Comment on above: Performed By: #### C BCD #### [facility] [address] [address] ABS BASO 0.04 K/UL Normal 0.00-0.22 [place] Comment on above: Performed By: #### C BCD #### [facility] [address] [address] ABS EOS 0.05 K/UL Normal 0-0.45 [place] Comment on above: Performed By: #### C BCD #### [facility] [address] [address] ABS NEUTROPHILS 9.40 K/UL High 1.8-7.7 [facility] Comment on above: Performed By: #### C BCD #### [facility] [address] [address] ABS.NEUT.CALCULATED Normal [place] Comment on above: Result Comment: 9.40 Performed at [address] [address] Performed By: #### C BCD #### [facility] [address] [address] Basophils/100 WBC (Bld) 0.30 % Normal 0-1 [facility] Comment on above: Performed By: #### C BCD #### [facility] [address] [address] DIFF TYPE AUTO DIFF Normal [place] Comment on above: Performed By: #### C BCD #### [facility] [address] [address] Eosinophils/100 WBC (Bld) 0.40 % Normal 0-3 [place] Comment on above: Performed By: #### C BCD #### [facility] [place] [address] [place] [address] Erythrocyte distribution width (RBC) [Ratio] 17.1 % High 11.7-15.0 [place] Comment on above: Performed By: #### C BCD #### [facility] [place] [address] [address] [facility] [place] [address] Hematocrit (Bld) [Volume fraction] 34.0 % Low 36-44 [place] Comment on above: Performed By: #### C BCD #### [facility] [place] [address] [place] [address] Hemoglobin (Bld) [Mass/Vol] 10.5 g/dL Low 12.0-15.0 [place] Comment on above: Performed By: #### C BCD #### [place] [address] [place] [address] Lymphocytes (Bld) [#/Vol] 1.38 10*3/uL Normal 1.2-3.2 [place] Comment on above: Performed By: #### C BCD #### [place] [address] [place] [address] Lymphocytes/100 WBC (Bld) 11.80 % Low 20-40 [place] Comment on above: Performed By: #### C BCD #### [place] [address] [place] [address] MCH (RBC) [Entitic mass] 27.7 pg Normal 26-34 [place] Comment on above: Performed By: #### C BCD #### [facility] [place] [address] [place] [address] MCHC (RBC) [Mass/Vol] 30.9 % Low 31-37 [facility] Comment on above: Performed By: #### C BCD #### [facility] [place] [address] [place] [address] MCV (RBC) [Entitic vol] 89.7 fL Normal 80-100 L [facility] Comment on above: Performed By: #### C BCD #### [facility] [place] [address] [place] [address] MEAN PLT VOL 10.3 CU Normal 7.0-12.6 [place] Comment on above: Performed By: #### C BCD #### [facility] [place] [address] [place] [address] Monocytes (Bld) [#/Vol] 0.80 10*3/uL Normal 0-0.8 [place] Comment on above: Performed By: #### C BCD #### [facility] [place] [address] [place] [address] Monocytes/100 WBC (Bld) 6.80 % Normal 0-8 [facility] Comment on above: Performed By: #### C BCD #### [facility] [place] [address] [place] [address] Neutrophils/100 WBC (Bld) 80.40 % High 50-70 [place] Comment on above: Performed By: #### C BCD #### [facility] [place] [address] [place] [address] Neutrophils/100 WBC (Bld) 0.30 % Normal 0.0-1.0 [place] Comment on above: Performed By: #### C BCD #### [facility] [address] [address] [address] [place] [address] NRBC'S 0 /100 WBC Normal 0 [place] Comment on above: Performed By: #### C BCD #### [address] [address] [place] [address] Platelets (Bld) [#/Vol] 269 10*3/uL Normal 150-450 [place] Comment on above: Performed By: #### C BCD #### [facility] [address] [address] [place] [address] RBC (Bld) [#/Vol] 3.79 M/UL Low 4.0-4.9 [facility] Comment on above: Performed By: #### C BCD #### [facility] [address] [address] [place] [address] RDW-SD 56.0 FL High 37.0-54.0 [place] Comment on above: Performed By: #### C BCD #### [facility] [address] [address] [place] [address] WBC (Bld) [#/Vol] 11.7 10*3/uL High 4.5-11.0 [place] Comment on above: Performed By: #### C BCD #### [facility] [address] [address] [place] [address] COMPREHENSIVE METABOLIC PANE Maximino 11-26-2018 Albumin [Mass/Vol] 3.9 g/dL Normal 3.5-5.0 [facility] Comment on above: Performed By: #### C HAM MARKER #### [address] [address] [place] [address] Albumin/Globulin [Mass ratio] 1.4 {ratio} Low 1.5-3.0 [place] Comment on above: Performed By: #### C HAM MARKER #### [address] [address] [place] [address] ALP [Catalytic activity/Vol] 112 U/L Normal 35-125 [place] Comment on above: Performed By: #### C HAM MARKER #### [address] [address] [place] [address] ALT [Catalytic activity/Vol] 18 U/L Normal 5-40 [place] Comment on above: Performed By: #### C HAM MARKER #### [address] [address] [place] [address] Anion gap [Moles/Vol] 13 mmol/L Normal 0-19 [facility] Comment on above: Performed By: #### C HAM MARKER #### [address] [address] [place] [address] AST [Catalytic activity/Vol] 20 U/L Normal 5-40 [place] Comment on above: Performed By: #### C HAM MARKER #### [facility] [address] [address] [place] [address] Bilirubin [Mass/Vol] 0.4 mg/dL Normal 0.1-1.2 [place] Comment on above: Performed By: #### C HAM MARKER #### [facility] [address] [address] [place] [address] Calcium [Mass/Vol] 9.0 mg/dL Normal 8.5-10.4 [facility] Comment on above: Performed By: #### C HAM MARKER #### [facility] [address] [address] [place] [address] Chloride [Moles/Vol] 94 mmol/L Low 97-107 [place] Comment on above: Performed By: #### C HAM MARKER #### [facility] [address] [address] [place] [address] CO2 [Moles/Vol] 23 mmol/L Low 24-31 [facility] Comment on above: Performed By: #### C HAM MARKER #### [facility] [address] [address] Creatinine [Mass/Vol] 0.8 mg/dL Normal 0.4-1.6 [facility] Comment on above: Performed By: #### C HAM MARKER #### [facility] [address] [address] GFR/1.73 sq M.predicted MDRD (S/P/Bld) [Vol rate/Area] Normal [place] Comment on above: Result Comment: 75 GFR ml/min/1.73m2 Stage ----- 90 1 60-89 2 30-59 3 15-29 4 <15 5 For -Americans, multiply EGFR result by 1.210 Calculation not validated for patients under 18 years of age. Performed at [address] [place] [address] Performed By: #### C HAM MARKER #### [facility] [address] [address] Globulin (S) [Mass/Vol] 2.8 g/dL Normal 1.9-3.7 [facility] Comment on above: Performed By: #### C HAM MARKER #### [facility] [address] [address] Glucose [Mass/Vol] 133 mg/dL High 65-99 [facility] Comment on above: Performed By: #### C HAM MARKER #### [facility] [address] [address] Potassium [Moles/Vol] 4.7 mmol/L Normal 3.4-5.1 [facility] Comment on above: Performed By: #### C HAM MARKER #### [facility] [address] [address] [place] [address] Protein [Mass/Vol] 6.7 g/dL Normal 5.9-7.9 [facility] Comment on above: Performed By: #### C HAM MARKER #### [facility] [address] [address] [place] [address] Sodium [Moles/Vol] 130 mmol/L Low 133-145 [facility] Comment on above: Performed By: #### C HAM MARKER #### [facility] [address] [address] [place] [address] Urea nitrogen [Mass/Vol] 20 mg/dL Normal 8-25 [place] Comment on above: Performed By: #### C HAM MARKER #### [facility] [address] [address] [place] [address] Urea nitrogen/Creatinine [Mass ratio] 25.0 RATIO High 8-21 [place] Comment on above: Performed By: #### C HAM MARKER #### [address] [address] [place] [address] FERRITINon 11-26-2018 Ferritin [Mass/Vol] Normal 13-150 [place] Comment on above: Result Comment: 52 Performed at [address] [place] [address] Performed By: #### F ER #### [address] [address] [place] [address] FOLIC ACIDon 11-26-2018 FOLIC ACID High 4.2-19.9 [place] Comment on above: Result Comment: 20.0 GREATER THAN Deficient=<2.1 ng/ml Indeterminate=2.2-4.1 ng/ml Performed at [address] [place] [address] Performed By: #### F A #### [facility] [address] [address] [place] [address] IRON PANELon 11-26-2018 Iron [Mass/Vol] 68 ug/dL Normal 30-160 [facility] Comment on above: Performed By: #### I P #### [facility] [address] [address] [place] [address] TOT.IRON BIND.CAP. 361 UG/DL Normal 228-428 [facility] Comment on above: Performed By: #### I P #### [facility] [address] [place] [address] TRANSFERRIN % SAT. Normal 12-50 [facility] Comment on above: Result Comment: 18.8 Performed at [address] [place] [address] Performed By: #### I P #### [facility] [address] [address] [place] [address] PHOSPHORUSon 11-26-2018 Phosphate [Mass/Vol] High 2.5-4.5 [place] Comment on above: Result Comment: 4.6 Performed at [address] [place] [address] Performed By: #### P HOS #### [address] [address] [place] [address] PTH,INTACTon 11-26-2018 PTH,INTACT Normal 15-65 [place] Comment on above: Result Comment: 30 Performed at [address] [place] [address] Performed By: #### P TH #### [address] [address] [place] [address] VITAMIN D 25 HYDROXYon 11-26 VITAMIN D 25 HYDROXY Normal 31-100 [place] Comment on above: Result Comment: 40 Performed at [address] [place] [address] Performed By: #### V ITD #### [facility] [address] [address] Clostridium difficile detect ion by polymerase chain reaction C. difficile DNA MILKA+probe Ql (Unsp spec) [facility] Work Phone: Culture, urine Bacteria identified Cx Nom (U) Klebsiella pneumoniae sp pneum [facility] Work Phone: EP Panel Gastrointestinal pathogens panel MILKA+probe (Stl) [facility] Work Phone: No Panel Information Enteric Bacteriology [facility] Work Phone: Vital Signs Date Time Vital Sign Value Performing Clinician Facility 02-03-2024 17:43-0400 Body temperature 97.81 [degF] Alma Espinoza DO Work Phone: [facility] 02-03-2024 17:43-0400 Diastolic blood pressure 69 mm[Hg] Alma Espinoza DO Work Phone: [facility] 02-03-2024 17:43-0400 Heart rate 85 /min Alma Espinoza DO Work Phone: [facility] 02-03-2024 17:43-0400 Respiratory rate 14 /min Alma Espinoza DO Work Phone: [facility] 02-03-2024 17:43-0400 SaO2% (BldA) [Mass fraction] 93 % Alma Espinoza DO Work Phone: [facility] 02-03-2024 17:43-0400 Systolic blood pressure 153 mm[Hg] Alma Espinoza DO Work Phone: [facility] 01-24-2024 07:31-0400 Body temperature 97.2 [degF] Ja De La Cruz MD Work Phone: [facility] 01-24-2024 07:31-0400 Diastolic blood pressure 69 mm[Hg] Ja De La Cruz MD Work Phone: [facility] 01-24-2024 07:31-0400 Heart rate 86 /min Ja De La Cruz MD Work Phone: [facility] 01-24-2024 07:31-0400 Respiratory rate 18 /min Ja De La Cruz MD Work Phone: [facility] 01-24-2024 07:31-0400 SaO2% (BldA) [Mass fraction] 96 % Ja De La Cruz MD Work Phone: [facility] 01-24-2024 07:31-0400 Systolic blood pressure 159 mm[Hg] Ja De La Cruz MD Work Phone: [facility] 01-22-2024 15:00-0400 Body height 142.2 cm Ja De La Cruz MD Work Phone: [facility] 01-22-2024 15:00-0400 Body mass index (BMI) [Ratio] 35.65 kg/m2 Ja De La Cruz MD Work Phone: [facility] 01-22-2024 15:00-0400 Body weight 72.12 kg Ja De La Cruz MD Work Phone: [facility] 11-20-2023 10:47-0400 Body height 147.3 cm Luana Fistek CUSHION STUFFER-CAD OPERATOR Work Phone: [facility] 11-20-2023 10:47-0400 Body mass index (BMI) [Ratio] 33.44 kg/m2 Luana Fistek CUSHION STUFFER-CAD OPERATOR Work Phone: [facility] 11-20-2023 10:47-0400 Body weight 72.58 kg Luana Fistek CUSHION STUFFER-CAD OPERATOR Work Phone: [facility] Comment on above: RECENT APPT/ UNABLE TO STAND TODAY 11-20-2023 10:47-0400 Diastolic blood pressure 58 mm[Hg] Luana Fistek CUSHION STUFFER-CAD OPERATOR Work Phone: [facility] 11-20-2023 10:47-0400 Heart rate 74 /min Luana Fistek CUSHION STUFFER-CAD OPERATOR Work Phone: [facility] 11-20-2023 10:47-0400 Systolic blood pressure 117 mm[Hg] Luana Fistek CUSHION STUFFER-CAD OPERATOR Work Phone: [facility] 11-17-2023 14:12-0400 Body height 147.3 cm Marilia Thomae DO Work Phone: [facility] 11-17-2023 14:12-0400 Body mass index (BMI) [Ratio] 33.44 kg/m2 Marilia Thomae DO Work Phone: [facility] 11-17-2023 14:12-0400 Body weight 72.58 kg Marilia Thomae DO Work Phone: 2(008)[phone] [place] [address] 11-17-2023 14:12-0400 Diastolic blood pressure 71 mm[Hg] Marilia Estevezae DO Work Phone: [facility] 11-17-2023 14:12-0400 Heart rate 76 /min Marilia Estevezae DO Work Phone: [facility] 11-17-2023 14:12-0400 Systolic blood pressure 121 mm[Hg] Marilia Estevezae DO Work Phone: 5(269)804-733413 [place] [address] 05-15-2023 14:08-0500 Body height 147.3 cm Marilia Estevezae DO Work Phone: 8(533)481-393274 [address] 05-15-2023 14:08-0500 Body mass index (BMI) [Ratio] 31.35 kg/m2 Marilia Estevezae DO Work Phone: 8(588)043-637174 [address] 05-15-2023 14:08-0500 Body weight 68.04 kg Marilia Stubbs DO Work Phone: 4(568)201-824374 [address] 02-06-2023 13:58-0400 Body height 139.[address] Hugo Julio Work Phone: [facility] 02-06-2023 13:58-0400 Body mass index (BMI) [Ratio] 36.3 kg/m2 Dr. Hugo Julio Work Phone: [facility] 02-06-2023 13:58-0400 Body temperature 98.4 [degF] Dr. Hugo Julio Work Phone: [facility] 02-06-2023 13:58-0400 Body weight 70.[address] Hugo Julio Work Phone: [facility] 02-06-2023 13:58-0400 Diastolic blood pressure 60 mm[Hg] Dr. Hugo Julio Work Phone: [facility] 02-06-2023 13:58-0400 Heart rate 69 /min Dr. Hugo Julio Work Phone: [facility] 09-07-2023 13:58-0400 Respiratory rate 17 /min Dr. Hugo Julio Work Phone: [facility] 02-06-2023 13:58-0400 SaO2% (BldA) [Mass fraction] 97 % Dr. Hugo Julio Work Phone: [facility] 02-06-2023 13:58-0400 Systolic blood pressure 130 mm[Hg] Dr. Hugo Julio Work Phone: [facility] 01-16-2023 15:03-0400 Body height 146.05 cm Hugo Julio Work Phone: [facility] Work Phone: 01-16-2023 15:03-0400 Body mass index (BMI) [Ratio] 32.54 kg/m2 Hugo Julio Work Phone: [facility] Work Phone: 01-16-2023 15:03-0400 Body surface area Derived from formula 1.62 m2 Hugo Julio Work Phone: [facility] Work Phone: 01-16-2023 15:03-0400 Body weight 69.4 kg Hugo Jennifer Julio Work Phone: [facility] Work Phone: 11-21-2022 14:30-0400 Body height 149.22 cm CARLOS JACK-KT Other [facility] [employer] Other 11-21-2022 14:30-0400 Body mass index (BMI) [Ratio] 30.55 kg/m2 CARLOS JACK-KT Other [facility] [employer] Other 11-21-2022 14:30-0400 Body weight 68.04 kg CARLOS JACK-KT Other [facility] Other 11-21-2022 14:30-0400 Diastolic blood pressure 67 mm[Hg] LUANA PARDO Other [facility] Other 11-21-2022 14:30-0400 Heart rate 69 /min LUANA PARDO Other [facility] Other 11-21-2022 14:30-0400 Systolic blood pressure 141 mm[Hg] LUANA PARDO Other [facility] Other 11-14-2022 08:34-0400 Body height 139.[address] Hugo Julio Work Phone: [facility] 11-14-2022 08:34-0400 Body mass index (BMI) [Ratio] 34.8 kg/m2 Dr. Hugo Julio Work Phone: [facility] 11-14-2022 08:34-0400 Body temperature 98.2 [degF] Dr. Hugo Julio Work Phone: [facility] 11-14-2022 08:34-0400 Body weight 68.[address] Hugo Julio Work Phone: [facility] 11-14-2022 08:34-0400 Diastolic blood pressure 70 mm[Hg] Dr. Hugo Julio Work Phone: [facility] 11-14-2022 08:34-0400 Heart rate 65 /min Dr. Hugo Julio Work Phone: [facility] 11-14-2022 08:34-0400 Respiratory rate 17 /min Dr. Hugo Julio Work Phone: [facility] 11-14-2022 08:34-0400 SaO2% (BldA) [Mass fraction] 97 % Dr. Hugo Julio Work Phone: [facility] 11-14-2022 08:34-0400 Systolic blood pressure 158 mm[Hg] Dr. Hugo Julio Work Phone: [facility] 11-07-2022 15:05-0400 Body mass index (BMI) [Ratio] 32.5 kg/m2 Ca Naidu MD Work Phone: [facility] 11-07-2022 15:05-0400 Body weight 68.13 kg Ca Naidu MD Work Phone: [facility] 11-07-2022 15:05-0400 Diastolic blood pressure 75 mm[Hg] Ca Naidu MD Work Phone: [facility] 11-07-2022 15:05-0400 Heart rate 68 /min Ca Naidu MD Work Phone: [facility] 11-07-2022 15:05-0400 Systolic blood pressure 160 mm[Hg] Ca Naidu MD Work Phone: [facility] 10-31-2022 13:22-0400 Body mass index (BMI) [Ratio] 35.1 kg/m2 Dr. Hugo Julio Work Phone: [facility] 10-31-2022 13:22-0400 Body weight 68.[address] Hugo Julio Work Phone: [facility] 10-31-2022 13:22-0400 Diastolic blood pressure 72 mm[Hg] Dr. Hugo Julio Work Phone: [facility] 10-31-2022 13:22-0400 Heart rate 66 /min Dr. Hugo Julio Work Phone: [facility] 10-31-2022 13:22-0400 Respiratory rate 18 /min Dr. Hugo Julio Work Phone: [facility] 10-31-2022 13:22-0400 SaO2% (BldA) [Mass fraction] 99 % Dr. Hugo Julio Work Phone: [facility] 10-31-2022 13:22-0400 Systolic blood pressure 150 mm[Hg] Dr. Hugo Julio Work Phone: [facility] 06-07-2022 13:51-0500 Body height 125.7 cm Lynne Key MD Work Phone: [facility] 06-07-2022 13:51-0500 Body temperature 97.59 [degF] Lynne Key MD Work Phone: [facility] 06-07-2022 13:51-0500 Body weight 63.69 kg Lynne Key MD Work Phone: [facility] 06-07-2022 13:51-0500 Diastolic blood pressure 54 mm[Hg] Lynne Key MD Work Phone: [facility] 06-07-2022 13:51-0500 Heart rate 66 /min Lynne Key MD Work Phone: [facility] 06-07-2022 13:51-0500 SaO2% (BldA) [Mass fraction] 100 % Lynne Key MD Work Phone: [facility] 06-07-2022 13:51-0500 Systolic blood pressure 156 mm[Hg] Lynne Key MD Work Phone: [facility] 05-08-2022 09:33-0500 Body height 139.[address] Hugo Julio Work Phone: [facility] Work Phone: 05-08-2022 09:33-0500 Body mass index (BMI) [Ratio] 32.6 kg/m2 Dr. Hugo Julio Work Phone: [facility] Work Phone: 05-08-2022 09:33-0500 Body weight 63.[address] Hugo Julio Work Phone: [facility] Work Phone: 05-06-2022 15:18-0500 Body height 146.05 cm Hugo Julio Work Phone: [facility] Work Phone: 05-06-2022 15:18-0500 Body mass index (BMI) [Ratio] 28.71 kg/m2 Hugo Julio Work Phone: [facility] Work Phone: 05-06-2022 15:18-0500 Body surface area Derived from formula 1.53 m2 Hugo Julio Work Phone: [facility] Work Phone: 05-06-2022 15:18-0500 Body weight 61.24 kg Hugo Julio Work Phone: [facility] [address] Work Phone: 05-06-2022 15:18-0500 Diastolic blood pressure 70 mm[Hg] Hugo Julio Work Phone: [facility] [address] Work Phone: 05-06-2022 15:18-0500 Systolic blood pressure 130 mm[Hg] Hugo Julio Work Phone: [facility] Work Phone: 04-30-2022 11:35-0500 Body mass index (BMI) [Ratio] 32.3 kg/m2 Dr. Hugo Julio Work Phone: [facility] Work Phone: 04-30-2022 11:35-0500 Body weight 63.[address] Hugo Julio Work Phone: [facility] Work Phone: 04-30-2022 11:35-0500 Diastolic blood pressure 80 mm[Hg] Dr. Hugo Julio Work Phone: [facility] Work Phone: 04-30-2022 11:35-0500 Heart rate 64 /min Dr. Hugo Julio Work Phone: [facility] Work Phone: 04-30-2022 11:35-0500 Respiratory rate 18 /min Dr. Hugo Julio Work Phone: [facility] Work Phone: 04-30-2022 11:35-0500 SaO2% (BldA) [Mass fraction] 99 % Dr. Hugo Julio Work Phone: [facility] Work Phone: 04-30-2022 11:35-0500 Systolic blood pressure 143 mm[Hg] Dr. Hugo Julio Work Phone: [facility] Work Phone: 04-29-2022 10:13-0500 Body height 142.5 cm Aakash Bryan MD Work Phone: [facility] 04-29-2022 10:13-0500 Body weight 62.78 kg Aakash Bryan MD Work Phone: [facility] 04-29-2022 10:13-0500 Diastolic blood pressure 76 mm[Hg] Aakash Bryan MD Work Phone: [facility] 04-29-2022 10:13-0500 Heart rate 78 /min Aakash Bryan MD Work Phone: [facility] 04-29-2022 10:13-0500 Systolic blood pressure 136 mm[Hg] Aakash Bryan MD Work Phone: [facility] 03-04-2022 11:48-0400 Body height 146.05 cm Hugo Julio Work Phone: [facility] Work Phone: 03-04-2022 11:48-0400 Body mass index (BMI) [Ratio] 28.5 kg/m2 Hugo Julio [facility] Work Phone: 03-04-2022 11:48-0400 Body surface area Derived from formula 1.53 m2 Hugo Julio Work Phone: [facility] Work Phone: 03-04-2022 11:48-0400 Body weight 60.78 kg Hugo Julio Work Phone: [facility] Work Phone: 03-04-2022 11:48-0400 Diastolic blood pressure 68 mm[Hg] Hugo Julio Work Phone: [facility] Work Phone: 03-04-2022 11:48-0400 Systolic blood pressure 150 mm[Hg] Hugo Julio Work Phone: [facility] Work Phone: 01-24-2022 14:00-0400 Body height 149.22 cm CARLOS JACK-KT Other [facility] [employer] Other 01-24-2022 14:00-0400 Body mass index (BMI) [Ratio] 26.89 kg/m2 CARLOS JACK-KT Other [facility] [employer] Other 01-24-2022 14:00-0400 Body weight 59.88 kg CARLOS JACK-KT Other [facility] [employer] Other 01-24-2022 14:00-0400 Diastolic blood pressure 64 mm[Hg] CARLOS JACK-KT Other [facility] [employer] Other 01-24-2022 14:00-0400 Heart rate 70 /min CARLOS JACK-KT Other [facility] [employer] Other 01-24-2022 14:00-0400 Systolic blood pressure 155 mm[Hg] CARLOS JACK-KT Other [facility] Other 12-06-2021 15:07-0400 Body height 139.[address] Hugo Julio Work Phone: [facility] Work Phone: 12-06-2021 15:07-0400 Body mass index (BMI) [Ratio] 31.8 kg/m2 Dr. Hugo Julio Work Phone: [facility] Work Phone: 12-06-2021 15:07-0400 Body temperature 98.6 [degF] Dr. Hugo Julio Work Phone: [facility] Work Phone: 12-06-2021 15:07-0400 Body weight 62.[address] Hugo Julio Work Phone: [facility] Work Phone: 12-06-2021 15:07-0400 Diastolic blood pressure 70 mm[Hg] Dr. Hugo Julio Work Phone: [facility] Work Phone: 12-06-2021 15:07-0400 Heart rate 66 /min Dr. Hugo Julio Work Phone: [facility] Work Phone: 12-06-2021 15:07-0400 Respiratory rate 16 /min Dr. Hugo Julio Work Phone: [facility] Work Phone: 12-06-2021 15:07-0400 SaO2% (BldA) [Mass fraction] 97 % Dr. Hugo Julio Work Phone: [facility] Work Phone: 12-06-2021 15:07-0400 Systolic blood pressure 150 mm[Hg] Dr. Hugo Julio Work Phone: [facility] Work Phone: 10-17-2021 15:14-0400 Body height 139.[address] Hugo Julio Work Phone: [facility] Work Phone: 10-17-2021 15:14-0400 Body mass index (BMI) [Ratio] 31.8 kg/m2 Dr. Hugo Julio Work Phone: [facility] Work Phone: 10-17-2021 15:14-0400 Body weight 62.[address] Hugo Julio Work Phone: [facility] Work Phone: 10-17-2021 15:14-0400 Diastolic blood pressure 77 mm[Hg] Dr. Hugo Julio Work Phone: [facility] Work Phone: 10-17-2021 15:14-0400 Heart rate 72 /min Dr. Hugo Julio Work Phone: [facility] Work Phone: 10-17-2021 15:14-0400 Respiratory rate 16 /min Dr. Hugo Julio Work Phone: [facility] Work Phone: 10-17-2021 15:14-0400 SaO2% (BldA) [Mass fraction] 98 % Dr. Hugo Julio Work Phone: [facility] Work Phone: 10-17-2021 15:14-0400 Systolic blood pressure 156 mm[Hg] Dr. Hugo Julio Work Phone: [facility] Work Phone: 10-17-2021 15:14-0400 Body height 139.[address] Hugo Julio Work Phone: [facility] [facility] Work Phone: 10-17-2021 15:14-0400 Body mass index (BMI) [Ratio] 31.8 kg/m2 Dr. Hugo Julio Work Phone: [facility] Work Phone: 10-17-2021 15:14-0400 Body weight 62.[address] Hugo Julio Work Phone: [facility] Work Phone: 10-17-2021 15:14-0400 Diastolic blood pressure 77 mm[Hg] Dr. Hugo Julio Work Phone: [facility] Work Phone: 10-17-2021 15:14-0400 Heart rate 72 /min Dr. Hugo Julio Work Phone: [facility] Work Phone: 10-17-2021 15:14-0400 Respiratory rate 16 /min Dr. Hugo Julio Work Phone: [facility] Work Phone: 10-17-2021 15:14-0400 SaO2% (BldA) [Mass fraction] 98 % Dr. Hugo Julio Work Phone: [facility] Work Phone: 10-17-2021 15:14-0400 Systolic blood pressure 156 mm[Hg] Dr. Hugo Julio Work Phone: [facility] Work Phone: 10-11-2021 11:27-0400 Body height 146.05 cm Hugo Julio Work Phone: [facility] Work Phone: 10-11-2021 11:27-0400 Body mass index (BMI) [Ratio] 28.71 kg/m2 Hugo Julio Work Phone: [facility] 120 Work Phone: 10-11-2021 11:27-0400 Body surface area Derived from formula 1.53 m2 Hugo Julio Work Phone: [facility] 120 Work Phone: 10-11-2021 11:27-0400 Body weight 61.24 kg Hugo Julio Work Phone: [facility] Work Phone: 10-11-2021 11:27-0400 Diastolic blood pressure 80 mm[Hg] Hugo Julio Work Phone: [facility] 120 Work Phone: 10-11-2021 11:27-0400 Systolic blood pressure 150 mm[Hg] Hugo Julio Work Phone: [facility] 120 Work Phone: 09-03-2021 18:24-0400 Body temperature 97.7 [degF] Dr. Hugo Julio Work Phone: [facility] Work Phone: 09-03-2021 18:24-0400 Diastolic blood pressure 57 mm[Hg] Dr. Hugo Julio Work Phone: [facility] Work Phone: 09-03-2021 18:24-0400 Heart rate 80 /min Dr. Hugo Julio Work Phone: [facility] Work Phone: 09-03-2021 18:24-0400 Respiratory rate 16 /min Dr. Hugo Julio Work Phone: [facility] Work Phone: 09-03-2021 18:24-0400 SaO2% (BldA) [Mass fraction] 92 % Dr. Hugo Julio Work Phone: [facility] Work Phone: 09-03-2021 18:24-0400 Systolic blood pressure 147 mm[Hg] Dr. Hugo Julio Work Phone: [facility] Work Phone: 09-03-2021 13:31-0400 Body height 139.[address] Hugo Julio Work Phone: [facility] Work Phone: 09-03-2021 13:31-0400 Body mass index (BMI) [Ratio] 30 kg/m2 Dr. Hugo Julio Work Phone: [facility] Work Phone: 09-03-2021 13:31-0400 Body weight 58.[address] Hugo Julio Work Phone: [facility] Work Phone: 08-09-2021 08:02-0500 Body mass index (BMI) [Ratio] 31.6 kg/m2 Dr. Hugo Julio Work Phone: [facility] Work Phone: 08-09-2021 08:02-0500 Body temperature 99.5 [degF] Dr. Hugo Julio Work Phone: [facility] Work Phone: 08-09-2021 08:02-0500 Body weight 61.[address] Hugo Julio Work Phone: [facility] Work Phone: 08-09-2021 08:02-0500 Diastolic blood pressure 88 mm[Hg] Dr. Hugo Julio Work Phone: [facility] Work Phone: 08-09-2021 08:02-0500 Heart rate 77 /min Dr. Hugo Julio Work Phone: [facility] Work Phone: 08-09-2021 08:02-0500 Respiratory rate 18 /min Dr. Hugo Julio Work Phone: [facility] Work Phone: 08-09-2021 08:02-0500 SaO2% (BldA) [Mass fraction] 99 % Dr. Hugo Julio Work Phone: [facility] Work Phone: 08-09-2021 08:02-0500 Systolic blood pressure 180 mm[Hg] Dr. Hugo Julio Work Phone: [facility] Work Phone: 08-09-2021 07:02-0500 Body mass index (BMI) [Ratio] 31.6 kg/m2 Dr. Hugo Julio Work Phone: [facility] Work Phone: 08-09-2021 07:02-0500 Body temperature 99.5 [degF] Dr. Hugo Julio Work Phone: [facility] Work Phone: 08-09-2021 07:02-0500 Body weight 61.[address] Hugo Julio Work Phone: [facility] Work Phone: 08-09-2021 07:02-0500 Diastolic blood pressure 88 mm[Hg] Dr. Hugo Julio Work Phone: [facility] Work Phone: 08-09-2021 07:02-0500 Heart rate 77 /min Dr. Hugo Julio Work Phone: [facility] Work Phone: 08-09-2021 07:02-0500 Respiratory rate 18 /min Dr. Hugo Julio Work Phone: [facility] Work Phone: 08-09-2021 07:02-0500 SaO2% (BldA) [Mass fraction] 99 % Dr. Hugo Julio Work Phone: [facility] Work Phone: 08-09-2021 07:02-0500 Systolic blood pressure 180 mm[Hg] Dr. Hugo Julio Work Phone: [facility] Work Phone: 07-26-2021 15:38-0500 Body height 144.78 cm Hugo Julio Work Phone: [facility] Work Phone: 07-26-2021 15:38-0500 Body mass index (BMI) [Ratio] 28.56 kg/m2 Hugo Julio Work Phone: [facility] 120 Work Phone: 07-26-2021 15:38-0500 Body surface area Derived from formula 1.51 m2 Hugo Julio Work Phone: [facility] 120 Work Phone: 07-26-2021 15:38-0500 Body weight 59.88 kg Hugo Rodriguez Julio Work Phone: [facility] 120 Work Phone: 07-26-2021 15:38-0500 Diastolic blood pressure 80 mm[Hg] Hugo Julio Work Phone: [facility] 120 Work Phone: 07-26-2021 15:38-0500 Systolic blood pressure 160 mm[Hg] Hugo Julio Work Phone: [facility] 120 Work Phone: 05-30-2021 12:25-0500 Diastolic blood pressure 55 mm[Hg] Dr. Hugo Julio Work Phone: [facility] Work Phone: 05-30-2021 12:25-0500 Heart rate 67 /min Dr. Hugo Julio Work Phone: [facility] Work Phone: 05-30-2021 12:25-0500 Respiratory rate 18 /min Dr. Hugo Julio Work Phone: [facility] Work Phone: 05-30-2021 12:25-0500 SaO2% (BldA) [Mass fraction] 100 % Dr. Hugo Julio Work Phone: [facility] Work Phone: 05-30-2021 12:25-0500 Systolic blood pressure 195 mm[Hg] Dr. Hugo Julio Work Phone: [facility] Work Phone: 05-30-2021 10:44-0500 Body mass index (BMI) [Ratio] 31.1 kg/m2 Dr. Hugo Julio Work Phone: [facility] Work Phone: 05-30-2021 10:44-0500 Body temperature 99.1 [degF] Dr. Hugo Julio Work Phone: [facility] Work Phone: 05-30-2021 10:44-0500 Body weight 65.[address] Hugo Julio Work Phone: [facility] Work Phone: 01-08-2021 06:07-0400 Body temperature 97.81 [degF] Damien Ocasio MD Work Phone: [facility] 01-08-2021 06:07-0400 Diastolic blood pressure 74 mm[Hg] Damien Ocasio MD Work Phone: [facility] 01-08-2021 06:07-0400 Heart rate 63 /min Damien Ocasio MD Work Phone: [facility] 01-08-2021 06:07-0400 Respiratory rate 14 /min Damien Ocasio MD Work Phone: [facility] 01-08-2021 06:07-0400 SaO2% (BldA) [Mass fraction] 97 % Damien Ocasio MD Work Phone: [facility] 01-08-2021 06:07-0400 Systolic blood pressure 154 mm[Hg] Damien Ocasio MD Work Phone: [facility] 01-05-2021 02:14-0400 Body height 146.1 cm Damien Ocasio MD Work Phone: [facility] 01-05-2021 02: Body mass index (BMI) [Ratio] 28.08 kg/m2 Damien Ocasio MD Work Phone: [facility] 01-05-2021 02: Body weight 59.9 kg Damien Ocasio MD Work Phone: [facility] Encounters Encounter Date Encounter Type Care Provider Facility Start: 02-15-2025 ambulatory Mary LO Facility:[facility] Start: 02-10-2025 ambulatory Hugo Julio Facility:[facility] Start: 02-08-2025 End: 02-08-2025 ambulatory SHANTEL CHEUNG APRN-CAD OPERATOR Facility:[facility] Start: 02-08-2025 End: 02-08-2025 Patient encounter procedure BELKYS CAZARES MD [facility] Start: 02-02-2025 End: 02-02-[facility] Start: 01-26-2025 End: 01-26-2025 [facility] Start: 01-26-2025 End: 01-26-2025 ambulatory Hazelellis Dupree Facility:[facility] Start: 01-14-2025 End: 01-14-2025 ambulatory Hugo Julio Facility:[facility] Start: 01-06-2025 End: 01-06-2025 ambulatory Jenny Aguirre Facility:[facility] Start: 11-10-2024 End: 11-10-2024 ambulatory Tiara Buck Facility:[facility] Start: 11-02-2024 End: 11-02-2024 ambulatory Jenny Aguirre Facility:[facility] Start: 10-22-2024 End: 10-22-2024 ambulatory Hugo Julio Facility:[facility] Start: 10-14-2024 End: 10-14-2024 ambulatory Herman Ochoa Facility:[facility] Start: 10-13-2024 End: 10-13-2024 ambulatory David Puga Facility:[facility] Start: 06-09-2024 End: 06-30-2024 ambulatory Yecenia Mederos CLICKER OPERATOR Facility:[facility] Start: 06-08-2024 End: 06-08-2024 ambulatory Jenny Aguirre Facility:[facility] Start: 06-04-2024 End: 06-04-2024 ambulatory SHANTEL CHEUNG Facility:[facility] Start: 05-24-2024 End: 05-24-2024 ambulatory Hugo Julio Facility:[facility] Start: 05-19-2024 End: 05-19-2024 ambulatory Jenny Aguirre Facility:[facility] Start: 05-19-2024 End: 06-01-2024 ambulatory Yecenia Mederos CLICKER OPERATOR Facility:[facility] Start: 05-19-2024 End: 05-19-2024 ambulatory Jenny Aguirre Facility:[facility] Start: 05-03-2024 End: 05-03-2024 ambulatory Chris Campoverde Facility:[facility] Start: 04-28-2024 End: 05-01-2024 ambulatory Yecenia Mederos CLICKER OPERATOR Facility:[facility] Start: 04-27-2024 End: 04-27-2024 ambulatory Hugo Julio Facility:[facility] Start: 04-26-2024 End: 04-26-2024 ambulatory David Puga Facility:[facility] Start: 04-24-2024 End: 04-24-2024 Emergency department patient visit Bartolome Jimenez Facility:[facility] Start: 04-09-2024 End: 04-09-2024 ambulatory David Puga Facility:[facility] Start: 03-25-2024 End: 03-25-2024 ambulatory Michael Rainey Facility:[facility] Start: 03-10-2024 End: 03-10-2024 ambulatory Kathy Mccarty Facility:[facility] Start: 03-03-2024 End: 04-01-2024 ambulatory Yecenia Mederos CLICKER OPERATOR Facility:[facility] Start: 03-01-2024 End: 03-01-2024 Jazmin Hill MD Work Phone: [facility] Start: 03-01-2024 End: 03-01-2024 Jazmin Hill MD Work Phone: [facility] Start: 03-01-2024 End: 03-01-2024 Office outpatient visit 25 minutes Aleksey Hill MD Work Phone: [facility] Comment on above: Neuropathy, idiopath ic (Primary Dx); Cervical myelopathy (CMS/HCC); Numbness and tingling of both lower extremities Start: 02-16-2024 End: 02-16-2024 ambulatory Hugo Julio Facility:[facility] Start: 02-03-2024 End: 02-03-2024 Emergency department patient visit Alma Espinoza DO Work Phone: [facility] Comment on above: Contusion of chest w all, unspecified laterality, initial encounter (Primary Dx); Contusion of right elbow, initial encounter; Skin tear of right elbow without complication, initial encounter; History of gastric bypass Start: 01-22-2024 End: 01-24-2024 Evaluation and management of inpatient Ja De La Cruz MD Work Phone: [facility] Medical Unit [address] Comment on above: Hyponatremia (Primar y Dx); Urinary tract infection in female Start: 12-03-2023 End: 12-03-[address] KATHY MCCARTY MD Facility:[facility] Start: 12-03-2023 End: 12-03-[address] KATHY MCCARTY MD [facility] Start: 11-20-2023 End: 11-20-2023 Office outpatient visit 25 minutes Luana Aden CUSHION STUFFER-CAD OPERATOR Work Phone: [facility] Comment on above: Intestinal malabsorp tion, unspecified type (HHS-HCC) (Primary Dx); Hyperparathyroidism (Multi); Vitamin D deficiency; Gastroesophageal reflux disease, unspecified whether esophagitis present; Hiatal hernia; History of Shani-en-Y gastric bypass; Vitamin B12 deficiency Start: 11-20-2023 End: 11-20-2023 ambulatory LUANA Shadi [facility] Ambulatory Start: 11-17-2023 End: 11-17-2023 Office outpatient visit 25 minutes Marilia Stubbs DO Work Phone: [facility] Comment on above: Bile salt-induced di arrhea (HHS-HCC) (Primary Dx); Irritable bowel syndrome with diarrhea; Campylobacter enteritis Start: 11-17-2023 End: 11-17-2023 ambulatory [facility] Ambulatory Start: 05-22-2023 End: 05-22-[address] Hugo Julio Work Phone: [facility] Work Phone: Start: 05-22-2023 End: 05-22-[address] Hugo Julio Work Phone: [facility] Work Phone: Start: 05-15-2023 End: 05-15-2023 Office outpatient visit 15 minutes [facility] DO Work Phone: [facility] Comment on above: History of Shani-en-Y gastric bypass (Primary Dx); Bile salt-induced diarrhea; Irritable bowel syndrome with diarrhea Start: 05-15-2023 End: 05-15-2023 ambulatory [facility] Ambulatory Start: 05-08-2023 End: 05-08-[address] Hugo Julio Work Phone: [facility] Work Phone: Start: 05-08-2023 End: 05-08-[address] Hugo Julio Work Phone: [facility] Work Phone: Start: 05-01-2023 End: 05-01-[address] Hugo Julio Work Phone: [facility] Work Phone: Start: 05-01-2023 End: 05-01-[address] Hugo Julio Work Phone: [facility] Start: 04-28-2023 End: 04-28-[address] Hugo Julio Work Phone: [facility] Work Phone: Start: 02-06-2023 End: 02-06-[address] Hugo Julio Work Phone: [facility] Work Phone: Start: 01-16-2023 Office outpatient visit 15 minutes Hugo Julio Work Phone: [facility] [place] [address] Work Phone: Start: 01-16-[address] Hugo Julio [facility] [id number] Start: 01-08-2023 End: 01-08-[address] Hugo Julio Work Phone: [facility] Work Phone: Start: 01-08-2023 End: 01-08-[address] Hugo Julio Work Phone: [facility] Work Phone: Start: 11-21-2022 (EDUC) EDUCATION CARLOS JACK-KT [facility] PBS Start: 11-21-2022 End: 11-21-2022 ambulatory CARLOS JACK-KT Other [facility] Other Start: 11-21-2022 Office outpatient visit 25 minutes LUANA [facility] PBS Start: 11-14-2022 End: 11-14-[address] Hugo Julio Work Phone: [facility] Work Phone: Start: 11-07-2022 End: 11-07-2022 Office outpatient visit 40 minutes Ca Naidu MD Work Phone: [facility] Ger[facility] Comment on above: History of delirium (Primary Dx) Start: 11-07-2022 End: 11-07-[address] Hugo Julio Work Phone: [facility] Work Phone: Start: 10-31-2022 End: 10-31-[address] Hugo Julio Work Phone: [facility] Work Phone: Start: 10-24-2022 End: 10-24-2022 ambulatory CARLOS JACK-KT Other [facility] Other Start: 10-24-2022 Telephone encounter CARLOS JACK-KT [facility] PBS Start: 10-17-[address] Hugo Stilli [id number] Start: 10-14-2022 End: 10-14-[address] Hugo Julio Work Phone: [facility] Work Phone: Start: 10-07-2022 End: 10-07-2022 ambulatory CARLOS JACK-KT Other [facility] Other Start: 10-07-2022 Telephone encounter [facility] Start: 07-18-2022 End: 07-19-2022 ambulatory ALI KAYLANIAN Facility:[facility] Start: 07-18-2022 End: 07-18-2022 ambulatory Lynne Key MD Work Phone: Gastroenterology Comment on above: Diarrhea due to adilene bsorption (Primary Dx) Start: 07-18-2022 End: 07-18-2022 Telemedicine consultation with patient Lynne Key MD Work Phone: [facility] Start: 06-11-[address] Hugo Workman [id number] Start: 06-10-2022 End: 06-10-2022 ambulatory HUGO JULIO Facility:[facility] Start: 06-07-2022 End: 06-07-2022 ambulatory ALI AMINIAN Facility:[facility] Start: 06-07-2022 End: 06-07-2022 Patient encounter procedure Lynne Key MD Work Phone: Gastroenterology Comment on above: Intestinal malabsorp tion, unspecified type (Primary Dx); Chronic diarrhea Start: 05-28-2022 End: 05-28-[address] Hugo Julio Work Phone: [facility] Work Phone: Start: 05-28-2022 End: 05-28-[address] Hugo Julio Work Phone: [facility] Start: 05-10-2022 Non-patient / Non-visit Dr. Hugo Julio Work Phone: [facility] Start: 05-10-2022 End: 05-10-[address] Hugo Julio Work Phone: [facility] Work Phone: Start: 05-10-2022 End: 05-10-[address] Hugo Julio Work Phone: [facility] Start: 05-08-2022 End: 05-08-[address] Hugo Julio Work Phone: [facility] Start: 05-07-2022 End: 05-07-[address] Hugo Julio Work Phone: [facility] Work Phone: Start: 05-07-2022 End: 05-07-[address] Hugo Julio Work Phone: [facility] Start: 05-06-2022 Office outpatient visit 25 minutes Hugo Julio Work Phone: [facility] [place] [address] Work Phone: Start: 05-06-2022 ambulatory DO MARILIA Still [id number] Start: 05-02-2022 End: 05-02-2022 ambulatory RENZO CALLEJAS Facility:[facility] Start: 04-30-2022 End: 04-30-[address] Hugo Julio Work Phone: [facility] Work Phone: Start: 04-30-2022 End: 04-30-[address] Hugo Julio Work Phone: [facility] Start: 04-30-2022 Telephone encounter Lynne driver MD Work Phone: Gastroenterology Comment on above: Appointment Start: 04-30-2022 End: 04-30-[address] Hugo Julio Work Phone: [facility] Start: 04-29-2022 End: 04-30-2022 ambulatory AAKASH BRYAN Facility:[facility] Start: 04-29-2022 End: 04-29-2022 Patient encounter procedure Aakash Bryan MD Work Phone: General Surgery Comment on above: S/P gastric bypass ( Primary Dx); Diarrhea, unspecified type; Abdominal bloating with cramps Start: 03-29-2022 AUDIT Hugo Julio Work Phone: [facility] [place] [address] Work Phone: Start: 03-26-2022 Telephone encounter Ligia Juarez RN General Surgery Comment on above: BMI Follow up ; Retu rning Patient's Call Start: 03-20-2022 End: 03-20-[address] Hugo Julio Work Phone: [facility] Work Phone: Start: 03-20-2022 End: 03-20-[address] Hugo Julio Work Phone: [facility] Start: 03-14-2022 Telephone encounter Renzo Callejas MD Work Phone: General Surgery Comment on above: Patient Question; COLON/EGD LODI Start: 03-12-2022 End: 03-12-2022 ambulatory RENZO DEUTSCHTMAN Facility:[facility] Start: 03-12-2022 End: 03-12-2022 Subsequent hospital visit by physician [facility] (I-Stat) Work Phone: Cat Scan Comment on above: Abdominal bloating w ith cramps [R14.0, R10.9] Start: 03-12-2022 End: 03-12-[address] Hugo Julio Work Phone: [facility] Work Phone: Start: 03-12-2022 End: 03-12-[address] Hugo Julio Work Phone: [facility] Start: 03-04-2022 Office outpatient visit 25 minutes Hugo Julio Work Phone: [facility] [place] [address] Work Phone: Start: 03-04-2022 ambulatory DO MARILIA STUBBS Facili [id number] Start: 02-28-2022 End: 02-28-2022 ambulatory RENZO CALLEJAS Facility:[facility] Start: 02-28-2022 End: 02-28-2022 ambulatory HUGO JULIO Facility:[facility] Start: 01-24-2022 (EDUC) EDUCATION CARLOS JACK-KT [facility] Start: 01-24-2022 End: 01-24-2022 ambulatory CARLOS JACK-KT Other [facility]. Other Start: 01-24-2022 Office outpatient visit 15 minutes CARLOS JACK-KT [facility] PBS Start: 01-16-2022 End: 01-16-[address] Hugo Julio Work Phone: [facility] Start: 01-15-2022 End: 01-15-[address] [facility] Jul[facility] Start: 01-08-2022 AUDIT Hugo Julio Work Phone: [facility] 120 Work Phone: Start: 01-04-2022 End: 01-04-[address] Hugo Julio Work Phone: [facility] Start: 01-02-2022 End: 01-02-[address] Hugo Julio Work Phone: [facility] Start: 12-25-2021 End: 12-25-[address] Hugo Julio Work Phone: [facility] Start: 12-06-2021 End: 12-06-[address] Hugo Julio Work Phone: [facility] Start: 12-06-2021 End: 12-06-[address] Hugo Julio Work Phone: [facility] Start: 11-16-2021 Non-patient / Non-visit Dr. Hugo Julio Work Phone: [facility] Start: 11-16-2021 End: 11-16-[address] Hugo Julio Work Phone: [facility] Start: 11-12-2021 End: 11-12-2021 Subsequent hospital visit by physician Ca Naidu MD Work Phone: [facility] Start: 10-30-2021 Rx Change Hugo Julio Work Phone: [facility] 120 Work Phone: Start: 10-24-2021 AUDIT Hugo Julio Work Phone: [facility] 120 Work Phone: Start: 10-23-2021 End: 10-23-[address] Hugo Julio Work Phone: [facility] Start: 10-17-2021 End: 10-17-[address] Hugo Julio Work Phone: [facility] Start: 10-17-2021 End: 10-17-[address] Hugo Julio Work Phone: [facility] Start: 10-11-2021 Office outpatient visit 25 minutes Hugo Julio Work Phone: [facility] 120 Work Phone: Start: 10-10-2021 End: 10-10-[address] Hugo Julio Work Phone: [facility] Start: 09-06-2021 MAMTA Julio Work Phone: [facility] 120 Work Phone: Start: 09-06-2021 End: 09-06-[address] Hugo Julio Work Phone: [facility] Start: 09-03-2021 End: 09-03-2021 Admission to same day surgery center Dr. Hugo Julio Work Phone: [facility] Start: 08-25-[address] Hugo Julio Work Phone: [facility] Start: 08-24-2021 End: 08-24-[address] Hugo Julio Work Phone: [facility] Start: 08-17-2021 End: 08-17-[address] Hugo Julio Work Phone: [facility] Start: 08-15-2021 End: 08-15-[address] Hugo Julio Work Phone: [facility] Start: 08-13-2021 End: 08-13-2021 Subsequent hospital visit by physician Ca Naidu MD Work Phone: [facility] Start: 08-09-2021 End: 08-09-[address] Hugo Julio Work Phone: [facility] Start: 08-09-2021 End: 08-09-[address] Hugo Julio Work Phone: [facility] Start: 08-03-2021 End: 08-03-[address] Hugo Julio Work Phone: [facility] Start: 07-26-2021 Office outpatient visit 25 minutes Hugo Julio Work Phone: [facility] [place] [address] Work Phone: Start: 07-25-2021 End: 07-25-[address] Hugo Julio Work Phone: [facility] Start: 07-16-2021 End: 07-16-[address] Hugo Julio Work Phone: [facility] Start: 06-29-2021 End: 06-29-[address] Hugo Julio Work Phone: [facility], Specimen Start: 06-26-2021 End: 06-26-[address] Hugo Julio Work Phone: [facility] Start: 06-21-2021 End: 06-21-[address] Hugo Julio Work Phone: [facility] Start: 06-20-2021 Rx Change Hugo Julio Work Phone: [facility] Work Phone: Start: 06-12-2021 End: 06-12-[address] Hugo Julio Work Phone: [facility], Specimen Start: 06-11-2021 Patient encounter procedure Hugo Julio Work Phone: [facility] [address] [facility] Work Phone: Start: 06-07-2021 End: 06-07-[address] Hugo Julio Work Phone: [facility] Start: 06-04-2021 FUV, Provider: Marilia Stubbs, Status: Pen, Time: 2:45 PM Hugo Julio Work Phone: [facility] Work Phone: Start: 05-30-[address] Hugo Julio Work Phone: [facility] Start: 05-30-2021 AUDIT Hugo Julio Work Phone: [facility] 120 Work Phone: Start: 05-18-[address] Hugo Julio Work Phone: [facility] Start: 05-11-2021 AUDIT Hugo Julio [facility] Work Phone: Start: 04-19-2021 AUDIT Hugo Julio Work Phone: [facility] 120 Work Phone: Start: 01-04-2021 End: 01-08-2021 Evaluation and management of inpatient VERN RUBIO Facility:[facility] Start: 01-04-2021 End: 01-08-2021 Evaluation and management of inpatient Damien Ocasio MD Work Phone: [id number] Comment on above: Delirium Procedures Date Procedure Procedure Detail Performing Clinician Start: 02-03-2024 Radex elbow complete minimum 3 views Alma Espinoza DO Work Phone: Start: 02-03-2024 Radiologic exam chest 2 views Alma Espinoza DO Work Phone: Start: 02-03-2024 Ecg routine ecg w/least 12 lds trcg only w/o i&r Alma Espinoza DO Work Phone: Start: 01-24-2024 Glucose quantitative blood xcpt reagent strip Girma Roberts MD Work Phone: Start: 01-23-2024 End: 01-23-2024 Basic metabolic panel calcium total Shivam Kusar DO Work Phone: Start: 01-23-2024 Glucose quantitative blood xcpt reagent strip Girma Roberts MD Work Phone: Start: 01-23-2024 Radiologic exam chest single view Quincy K erns DO Work Phone: Start: 01-23-2024 Glucose quantitative blood xcpt reagent strip Girma Roberts MD Work Phone: Start: 01-23-2024 Assay of osmolality urine Shivam Kusar DO Work Phone: Start: 01-23-2024 End: 01-23-2024 Basic metabolic panel calcium total Shivam Kusar DO Work Phone: Start: 01-23-2024 Cortisol total Quincy Lilian DO Work Phone: Start: 01-22-2024 End: 01-22-2024 Basic metabolic panel calcium total Shivam Kusar DO Work Phone: Start: 01-22-2024 Assay of phosphorus inorganic Quincy Lilian DO Work Phone: Start: 01-22-2024 Culture bacterial quanttative colony count urine Yasir Lopez CUSHION STUFFER - CAD OPERATOR Work Phone: Start: 01-22-2024 Urinalysis complete panel - Urine Yasir Lopez CUSHION STUFFER - CAD OPERATOR Work Phone: Start: 01-22-2024 Comprehensive metabolic panel Yasir sol CUSHION STUFFER - CAD OPERATOR Work Phone: Start: 11-20-2023 Follow-up visit Follow-up LUANA PARDO Start: 05-01-2023 Bacteria identified in Urine by Culture Dr. Hugo Julio Work Phone: Start: 05-01-[address] Hugo Julio Work Phone: Start: 02-10-2023 History of gastrointestinal tract bypass History of Shani-en-Y gastric bypass Marilia Stubbs DO Work Phone: Start: 11-07-2022 Adult depression screening assessment Ca Naidu MD Work Phone: Start: 10-17-2021 Radiography of thoracic spine Dr. Hugo zuniga Work Phone: Start: 09-03-[address] Hugo Julio Work Phone: Start: 09-03-2021 X-ray of lumbar spine, two or three views Dr. Hugo Julio Work Phone: Start: 09-03-2021 Implantation of neurostimulator in spine Dr. Hugo Julio Work Phone: Start: 08-15-[address] Hugo Julio Work Phone: Start: 06-12-2021 Bacteria identified in Urine by Culture Dr. Hugo Julio Work Phone: Start: 06-12-[address] Hugo Julio Work Phone: Start: 06-07-2021 MRI of brain with contrast Dr. Hugo quinteros Work Phone: Start: 05-30-2021 End: 05-30-2021 Acid fast bacilli culture Dr. Hugo Julio Work Phone: Start: 05-30-2021 End: 05-30-2021 Cytopathology procedure, preparation of smear, genital source Dr. Hugo Julio Work Phone: Start: 05-30-2021 End: 05-30-[address] Hugo Julio Work Phone: Start: 05-30-2021 Dx Lumbar Puncture w/IMG Guide Dr. Hugo Julio Work Phone: Start: 01-08-2021 Blood count platelet automated Simeon Grewal MD Work Phone: Start: 01-06-2021 Assay of folic acid serum Pricilla reid MD, PhD Work Phone: Start: 01-05-2021 Assay of magnesium Simeon Grewal MD Work Phone: Start: 01-04-2021 SARS-CoV-2 (COVID-19) RNA [Presence] in Unspecified specimen by MILKA with probe detection Damien Ocasio MD Work Phone: Start: 01-04-2021 Culture bct isol&prsmptv id isolate ea urine Damien Ocasio MD Work Phone: Start: 01-04-2021 Ct head/brain w/o contrast material Damien Ocasio MD Work Phone: Start: 01-04-2021 Ecg routine ecg w/least 12 lds trcg only w/o i&r Damien Ocasio MD Work Phone: Start: 01-04-2021 Radiologic exam chest single view Kory Ocasio MD Work Phone: Start: 01-04-2021 Assay of thyroid stimulating hormone tsh Michael Samuel MD Work Phone: Start: 01-04-2021 CBC AND ELECTRONIC DIFF Damien Ocasio MD Work Phone: Start: 01-04-2021 Complete blood count with white cell differential, automated Damien Ocasio MD Work Phone: Start: 01-04-2021 Hepatic function panel Damien Ocasio MD Work Phone: Start: 01-04-2021 MINT GREEN TOP TUBE Damien Ocasio MD Work Phone: Start: 12-02-2018 Colonoscopy Ca Naidu MD Work Phone: Arthroplasty of knee Hugo Julio Work Phone: Bacteria identified in Urine by Culture Dr. Hugo Julio Work Phone: Bariatric operative procedure Hugo Julio Work Phone: Cholecystectomy Hugo Julio Work Phone: Clostridium difficile detection Dr. Hugo Julio Work Phone: Colonoscopy Hugo Julio Work Phone: Enteric Bacteriology Dr. Lori Julio Work Phone: Esophagogastroduodenoscopy Willie Julio Work Phone: H/O: hysterectomy S/P hysterectomy Dr. Amber Julio Work Phone: H/O: surgery History of repai r of rectocele Dr. Hugo Julio Work Phone: History of cholecystectomy S/P l aparoscopic cholecystectomy Dr. Hugo Julio Work Phone: History of gastroint estinal tract bypass History of Shani-en-Y gastric bypass Marilia Stubbs DO Work Phone: History of gastroint estinal tract bypass History of Shani-en-Y gastric bypass Luana Pardo CUSHION STUFFER-CAD OPERATOR Work Phone: Hysterectomy Hugo Julio Work Phone: Operation on fracture Hugo Julio Work Phone: Urine culture Dr. Hugo Julio Work Phone: Plan of Treatment Date Care Activity Detail Author Start: 02-02-2034 DTaP/Tdap/Td Vaccines (5 - Td or Tdap) DTaP/Tdap/Td Vaccines (5 - Td or Tdap) [facility] Start: 02-02-2030 DTaP/Tdap/Td vaccine (4 - Td or Tdap) DTaP/Tdap/Td vaccine (4 - Td or Tdap) [facility] Start: 02-02-2030 DTaP/Tdap/Td Vaccines (4 - Td or Tdap) DTaP/Tdap/Td Vaccines (4 - Td or Tdap) [facility] Start: 02-02-2030 Urine microalbumin profile DTAP,TDAP,TD (4 - Td or Tdap) [facility] Start: 12-02-2028 Screening for malignant neoplasm of colon [facility] Start: 11-20-2024 End: 05-22-2025 25-hydroxyvitamin D3 [Mass/volume] in Serum or Plasma Vitamin D 25-Hydroxy,Total (for eval of Vitamin D levels) Lab Routine Vitamin D deficiency Intestinal malabsorption, unspecified type (HHS-HCC) Expected: 11/20/2024 (Approximate), Expires: 05/22/2025 [facility] Work Phone: Comment on above: Expected: 11/20/2024 (Approximate), Expi res: 05/22/2025 Start: 11-20-2024 End: 05-22-2025 CBC W Auto Differential panel - Blood CBC and Auto Differential Lab Routine Intestinal malabsorption, unspecified type (HHS-HCC) Expected: 11/20/2024 (Approximate), Expires: 05/22/2025 [facility] Service Area Work Phone: Comment on above: Expected: 11/20/2024 (Approximate), Expi res: 05/22/2025 Start: 11-20-2024 End: 05-22-2025 Cobalamin (Vitamin B12) [Mass/volume] in Serum or Plasma Vitamin B12 Lab Routine Intestinal malabsorption, unspecified type (HHS-HCC) Vitamin B12 deficiency Expected: 11/20/2024 (Approximate), Expires: 05/22/2025 [facility] Work Phone: Comment on above: Expected: 11/20/2024 (Approximate), Expi res: 05/22/2025 Start: 11-20-2024 End: 05-22-2025 Comprehensive metabolic 2000 panel - Serum or Plasma Comprehensive Metabolic Panel Lab Routine Intestinal malabsorption, unspecified type (HHS-HCC) Expected: 11/20/2024 (Approximate), Expires: 05/22/2025 [facility] Work Phone: Comment on above: Expected: 11/20/2024 (Approximate), Expi res: 05/22/2025 Start: 11-20-2024 End: 05-22-2025 Copper [Mass/volume] in Serum or Plasma Copper, Blood Lab Routine Intestinal malabsorption, unspecified type (HHS-HCC) Expected: 11/20/2024 (Approximate), Expires: 05/22/2025 [facility] Work Phone: Comment on above: Expected: 11/20/2024 (Approximate), Expi res: 05/22/2025 Start: 11-20-2024 End: 05-22-2025 Ferritin [Mass/volume] in Serum or Plasma Ferritin Lab Routine Intestinal malabsorption, unspecified type (HHS-HCC) Expected: 11/20/2024 (Approximate), Expires: 05/22/2025 [facility] Work Phone: Comment on above: Expected: 11/20/2024 (Approximate), Expi res: 05/22/2025 Start: 11-20-2024 End: 05-22-2025 Folate [Mass/volume] in Serum or Plasma Folate Lab Routine Intestinal malabsorption, unspecified type (HHS-HCC) Expected: 11/20/2024 (Approximate), Expires: 05/22/2025 [facility] Work Phone: Comment on above: Expected: 11/20/2024 (Approximate), Expi res: 05/22/2025 Start: 11-20-2024 End: 05-22-2025 Iron and Iron binding capacity panel - Serum or Plasma Iron and TIBC Lab Routine Intestinal malabsorption, unspecified type (HHS-HCC) Expected: 11/20/2024 (Approximate), Expires: 05/22/2025 [facility] Work Phone: Comment on above: Expected: 11/20/2024 (Approximate), Expi res: 05/22/2025 Start: 11-20-2024 End: 05-22-2025 Parathyrin.intact [Mass/volume] in Serum or Plasma Parathyroid Hormone, Intact Lab Routine Hyperparathyroidism (Multi) Intestinal malabsorption, unspecified type (HHS-HCC) Expected: 11/20/2024 (Approximate), Expires: 05/22/2025 [facility] Work Phone: Comment on above: Expected: 11/20/2024 (Approximate), Expi res: 05/22/2025 Start: 11-20-2024 End: 05-22-2025 Thiamine pyrophosphate [Moles/volume] in Blood Vitamin B1, Whole Blood Lab Routine Intestinal malabsorption, unspecified type (HHS-HCC) Expected: 11/20/2024 (Approximate), Expires: 05/22/2025 [facility] Work Phone: Comment on above: Expected: 11/20/2024 (Approximate), Expi res: 05/22/2025 Start: 11-20-2024 End: 05-22-2025 Zinc [Mass/volume] in Serum or Plasma Zinc, Serum or Plasma Lab Routine Intestinal malabsorption, unspecified type (HHS-HCC) Expected: 11/20/2024 (Approximate), Expires: 05/22/2025 [facility] Work Phone: Comment on above: Expected: 11/20/2024 (Approximate), Expi res: 05/22/2025 Start: 11-16-2024 End: 11-16-2024 Patient encounter procedure 11/16/2024 11:00 AM EDT Office Visit [facility] [address] [place] [id number] Luana Pardo, CUSHION STUFFER-CAD OPERATOR [address] [place] [address] [facility] Start: 06-07-2024 SIGMOIDOSCOPY SIGMOIDOSCOPY [facility] Start: 02-01-2024 COVID-19 Vaccine ( season) COVID-19 Vaccine () [facility] Start: 02-01-2024 Influenza vaccination Influenza Vaccine (#1) [facility] Start: 01-29-2024 End: 02-24-2024 Basic metabolic 1998 panel - Serum or Plasma Basic Metabolic Panel w/ Mg Reflex Lab Routine Hyponatremia Expected: 01/29/2024 (Approximate), Expires: 02/24/2024 [facility] Work Phone: Comment on above: Expected: 01/29/2024 (Approximate), Expi res: 02/24/2024 Start: 12-03-2023 Colonoscopy COLONOSCOPY [facility] Start: 12-03-2023 COLORECTAL CANCER SCREENING COLORECTAL CANCER SCREENING [facility] Start: 11-20-2023 End: 11-20-2023 Patient encounter procedure 11/20/2023 11:00 AM EDT Office Visit [facility] [address] [place] [id number] Luana Pardo, CUSHION STUFFER-CAD OPERATOR [address] [place], [place] [id number] [facility] Start: 11-17-2023 End: 11-16-2024 Calprotectin [Mass/mass] in Stool Calprotectin, Fecal Lab Routine Bile salt-induced diarrhea (HHS-HCC) Irritable bowel syndrome with diarrhea Expected: 11/17/2023 (Approximate), Expires: 11/16/2024 [facility] Work Phone: Comment on above: Expected: 11/17/2023 (Approximate), Expi res: 11/16/2024 Start: 11-17-2023 End: 11-16-2024 Clostridioides difficile toxin A+B tcdA+tcdB genes [Presence] in Stool by MILKA with probe detection C. difficile, PCR Microbiology Routine Bile salt-induced diarrhea (HHS-HCC) Irritable bowel syndrome with diarrhea Expected: 11/17/2023 (Approximate), Expires: 11/16/2024 [facility] Work Phone: Comment on above: Expected: 11/17/2023 (Approximate), Expi res: 11/16/2024 Start: 11-17-2023 End: 11-17-2023 Patient encounter procedure 11/17/2023 2:00 PM EDT Office Visit [facility] [address] [facility] [address] [place] [id number] Marilia Stubbs DO [address] [facility], [address] [place] [address] [facility] Start: 11-17-2023 End: 12-17-2023 Stool Pathogen Panel, PCR Stool Pathogen Panel, PCR Microbiology Routine Bile salt-induced diarrhea (HHS-HCC) Irritable bowel syndrome with diarrhea Campylobacter enteritis Expected: 11/17/2023 (Approximate), Expires: 12/17/2023 [facility] Service Area Work Phone: Comment on above: Expected: 11/17/2023 (Approximate), Expi res: 12/17/2023 Start: 11-08-2023 Depression Screening Depression Screening [facility] Start: 07-14-2023 COVID-19 Vaccine ( season) COVID-19 Vaccine () [facility] Start: 06-02-2023 End: 08-02-2023 25-hydroxyvitamin D3 [Mass/volume] in Serum or Plasma VITAMIN D 25 HYDROXY Lab Routine Diarrhea due to malabsorption Expected: 06/02/2023 (Approximate), Expires: 08/02/2023 [facility] Work Phone: Comment on above: Expected: 06/02/2023 (Approximate), Expi res: 08/02/2023 Start: 06-02-2023 End: 08-02-2023 Alpha tocopherol [Mass/volume] in Serum or Plasma VITAMIN E/TOCOPHEROL Lab Routine Diarrhea due to malabsorption Expected: 06/02/2023 (Approximate), Expires: 08/02/2023 [facility] Work Phone: Comment on above: Expected: 06/02/2023 (Approximate), Expi res: 08/02/2023 Start: 06-02-2023 End: 08-02-2023 C reactive protein [Mass/volume] in Serum or Plasma C-REACTIVE PROTEIN (CRP) Lab Routine Diarrhea due to malabsorption Expected: 06/02/2023 (Approximate), Expires: 08/02/2023 [facility] Work Phone: Comment on above: Expected: 06/02/2023 (Approximate), Expi res: 08/02/2023 Start: 06-02-2023 End: 08-02-2023 CBC W Auto Differential panel - Blood CBC + DIFF Lab Routine Diarrhea due to malabsorption Expected: 06/02/2023 (Approximate), Expires: 08/02/2023 [facility] Work Phone: Comment on above: Expected: 06/02/2023 (Approximate), Expi res: 08/02/2023 Start: 06-02-2023 End: 08-02-2023 Cobalamin (Vitamin B12) [Mass/volume] in Serum or Plasma VITAMIN B12 BLOOD Lab Routine Diarrhea due to malabsorption Expected: 06/02/2023 (Approximate), Expires: 08/02/2023 [facility] Work Phone: Comment on above: Expected: 06/02/2023 (Approximate), Expi res: 08/02/2023 Start: 06-02-2023 End: 08-02-2023 Comprehensive metabolic 2000 panel - Serum or Plasma COMP METABOLIC PANEL Lab Routine Diarrhea due to malabsorption Expected: 06/02/2023 (Approximate), Expires: 08/02/2023 [facility] Work Phone: Comment on above: Expected: 06/02/2023 (Approximate), Expi res: 08/02/2023 Start: 06-02-2023 End: 08-02-2023 COPPER BLOOD COPPER BLOOD Lab Routine Diarrhea due to malabsorption Expected: 06/02/2023 (Approximate), Expires: 08/02/2023 [facility] Work Phone: Comment on above: Expected: 06/02/2023 (Approximate), Expi res: 08/02/2023 Start: 06-02-2023 End: 08-02-2023 Ferritin [Mass/volume] in Serum or Plasma FERRITIN BLD Lab Routine Diarrhea due to malabsorption Expected: 06/02/2023 (Approximate), Expires: 08/02/2023 [facility] Work Phone: Comment on above: Expected: 06/02/2023 (Approximate), Expi res: 08/02/2023 Start: 06-02-2023 End: 08-02-2023 Iron and Iron binding capacity panel - Serum or Plasma IRON + TIBC Lab Routine Diarrhea due to malabsorption Expected: 06/02/2023 (Approximate), Expires: 08/02/2023 [facility] Work Phone: Comment on above: Expected: 06/02/2023 (Approximate), Expi res: 08/02/2023 Start: 06-02-2023 End: 08-02-2023 Magnesium [Mass/volume] in Serum or Plasma MAGNESIUM BLD Lab Routine Diarrhea due to malabsorption Expected: 06/02/2023 (Approximate), Expires: 08/02/2023 [facility] Work Phone: Comment on above: Expected: 06/02/2023 (Approximate), Expi res: 08/02/2023 Start: 06-02-2023 End: 08-02-2023 Methylmalonate [Moles/volume] in Serum or Plasma METHYLMALONIC ACID Lab Routine Diarrhea due to malabsorption Expected: 06/02/2023 (Approximate), Expires: 08/02/2023 [facility] Work Phone: Comment on above: Expected: 06/02/2023 (Approximate), Expi res: 08/02/2023 Start: 06-02-2023 End: 08-02-2023 Phosphate [Mass/volume] in Serum or Plasma PHOSPHORUS INORGANIC Lab Routine Diarrhea due to malabsorption Expected: 06/02/2023 (Approximate), Expires: 08/02/2023 [facility] Work Phone: Comment on above: Expected: 06/02/2023 (Approximate), Expi res: 08/02/2023 Start: 06-02-2023 End: 08-02-2023 PT panel - Platelet poor plasma by Coagulation assay PROTHROMBIN TIME/PT Lab Routine Diarrhea due to malabsorption Expected: 06/02/2023 (Approximate), Expires: 08/02/2023 [facility] Work Phone: Comment on above: Expected: 06/02/2023 (Approximate), Expi res: 08/02/2023 Start: 06-02-2023 End: 08-02-2023 RBC FOLATE RBC FOLATE Lab Routine Diarrhea due to malabsorption Expected: 06/02/2023 (Approximate), Expires: 08/02/2023 [facility] Work Phone: Comment on above: Expected: 06/02/2023 (Approximate), Expi res: 08/02/2023 Start: 06-02-2023 End: 08-02-2023 Retinol [Mass/volume] in Serum or Plasma VITAMIN A/RETINOL Lab Routine Diarrhea due to malabsorption Expected: 06/02/2023 (Approximate), Expires: 08/02/2023 [facility] Work Phone: Comment on above: Expected: 06/02/2023 (Approximate), Expi res: 08/02/2023 Start: 06-02-2023 End: 08-02-2023 Selenium [Mass/volume] in Blood SELENIUM BLOOD Lab Routine Diarrhea due to malabsorption Expected: 06/02/2023 (Approximate), Expires: 08/02/2023 [facility] Work Phone: Comment on above: Expected: 06/02/2023 (Approximate), Expi res: 08/02/2023 Start: 06-02-2023 End: 08-02-2023 Zinc [Mass/volume] in Serum or Plasma ZINC BLD Lab Routine Diarrhea due to malabsorption Expected: 06/02/2023 (Approximate), Expires: 08/02/2023 [facility] Work Phone: Comment on above: Expected: 06/02/2023 (Approximate), Expi res: 08/02/2023 Start: 05-22-2023 Heavy metals measurement [facility] Start: 05-22-2023 Serum immunofixation [facility] Start: 05-22-2023 Urine protein electrophoresis [facility] Start: 05-15-2023 FUV, Provider: Marilia Stubbs, Status: Pen, Time: 2:00 PM FUV, Provider: Marilia Stubbs, Status: Pen, Time: 2:00 PM [facility] Work Phone: Start: 05-08-2023 COVID-19 Vaccine (4 - Pfizer series) COVID-19 Vaccine (4 - Pfizer series) [facility] Start: 01-31-2023 COVID-19 Vaccine () COVID-19 Vaccine () [facility] Start: 08-13-2022 Depression Screen Depression Screen [facility] Start: 07-14-2022 Creatinine measurement [facility] Start: 07-14-2022 Potassium monitoring Potassium monitoring [facility] Start: 07-09-2022 Hemoglobin A1c measurement A1C test (Diabetic or Prediabetic) [facility] Start: 06-11-2022 FUV, Provider: Marilia Stubbs, Status: Pen, Time: 2:00 PM FUV, Provider: Marilia Stubbs, Status: Pen, Time: 2:00 PM [facility] 120 Work Phone: Start: 06-02-2022 ADVANCE DIRECTIVE DISCUSSION ADVANCE DIRECTIVE DISCUSSION [facility] Start: 06-02-2022 DEPRESSION ASSESSMENT DEPRESSION ASSESSMENT [facility] Start: 05-07-2022 Procedure [facility] Work Phone: Start: 05-06-2022 FUV, Provider: Marilia Stubbs, Status: Pen, Time: 2:45 PM FUV, Provider: Marilia Stubbs, Status: Pen, Time: 2:45 PM [facility] 120 Work Phone: Start: 03-04-2022 FUV, Provider: Marilia Stubbs, Status: Pen, Time: 11:00 AM FUV, Provider: Marilia Stubbs, Status: Pen, Time: 11:00 AM [facility] Work Phone: Start: 01-31-2022 Influenza vaccination INFLUENZA (#1) [facility] Start: 01-16-2022 Thiamine measurement [facility] Work Phone: Start: 01-05-2022 Potassium [Moles/volume] in Serum or Plasma POTASSIUM [facility] Start: 11-01-2021 COVID-19 VACCINE (5 - Booster for Pfizer series) COVID-19 VACCINE (5 - Booster for Pfizer series) [facility] Start: 10-11-2021 FUV, Provider: Marilia Stubbs, Status: Pen, Time: 11:15 AM FUV, Provider: Marilia Stubbs, Status: Pen, Time: 11:15 AM [facility] 120 Work Phone: Start: 10-06-2021 Hemoglobin A1c measurement Diabetes: Hemoglobin A1C [facility] Start: 09-03-2021 X-ray of lumbar spine, two or three views Lumbar Spine 2 or 3 Views [facility] Work Phone: Start: 09-03-2021 Anes integ musc & nrv head neck&posterior trunk ANESTH HEAD/NECK/PTRUNK [facility] Work Phone: Start: 09-03-2021 Injection epidural blood/clot patch INJECT EPIDURAL PATCH [facility] Work Phone: Start: 09-03-2021 Insj/rplcmt spi npgr dir/induxive coupling INSRT/REDO SPINE N GENERATOR [facility] Work Phone: Start: 09-03-2021 Prq impltj nstim electrode array epidural IMPLANT NEUROELECTRODES [facility] Work Phone: Start: 09-03-2021 Patient discharge [facility] Work Phone: Start: 07-26-2021 FUV, Provider: Marilia Stubbs, Status: Darius, Time: 3:00 PM FUV, Provider: Marilia Stubbs, Status: Darius, Time: 3:00 PM [facility] Work Phone: Start: 07-09-2021 Annual Wellness Visit (AWV) Annual Wellness Visit (AWV) [facility] Start: 06-12-2021 Patient encounter procedure RNVISIT, Provider: [facility], Status: Pen, Time: 9:00 AM [facility] 120 Work Phone: Start: 06-11-2021 Patient encounter procedure RNVISIT, Provider: [facility], Status: Pen, Time: 10:00 AM [facility] Work Phone: Start: 06-04-2021 FUV, Provider: Marilia Stubbs, Status: Pen, Time: 2:45 PM FUV, Provider: Marilia Stubbs, Status: Pen, Time: 2:45 PM [facility] 120 Work Phone: Start: 06-02-2021 ADVANCE DIRECTIVE DISCUSSION ADVANCE DIRECTIVE DISCUSSION [facility] Start: 06-02-2021 DEPRESSION ASSESSMENT DEPRESSION ASSESSMENT [facility] Start: 05-11-2021 COVID-19 VACCINE (4 - Booster for Pfizer series) COVID-19 VACCINE (4 - Booster for Pfizer series) [facility] Start: 01-31-2021 Influenza vaccination INFLUENZA VACCINE (#1) [facility] Start: 05-26-2016 PNEUMOCOCCAL: 65+ (3 - PPSV23 if available, else PCV20) PNEUMOCOCCAL: 65+ (3 - PPSV23 if available, else PCV20) [facility] Start: 05-07-2016 Urine microalbumin profile DTAP,TDAP,TD (2 - Td or Tdap) [facility] Start: 02-08-2016 Pneumococcal 65+ years Vaccine (2 of 2 - PPSV23) Pneumococcal 65+ years Vaccine (2 of 2 - PPSV23) [facility] Start: 02-08-2016 Pneumococcal 65+ years Vaccine (3 - PPSV23 or PCV20) Pneumococcal 65+ years Vaccine (3 - PPSV23 or PCV20) [facility] Start: 2011 BONE DENSITY BONE DENSITY [facility] Start: 2011 Pneumococcal vaccination PNEUMOCOCCAL VACCINE SERIES (1 of 2 - PCV13) [facility] Start: 03-30-2010 Hepatitis C antibody, confirmatory test DILATED RETINAL EXAM [facility] Start: 11-28-2009 3 comp foot exam completed DIABETIC FOOT EXAM [facility] Start: 11-08-2009 Hepatitis B screening URINE ALBUMIN:CREATININE RATIO [facility] Start: 11-08-2009 Hepatitis B surface antibody level LDL CHOLESTEROL [facility] Start: 10-31-2009 Hemoglobin A1c/Hemoglobin.total in Blood HBA1C [facility] Start: 05-07-2007 PNEUMOCOCCAL: 65+ (2 - PCV) PNEUMOCOCCAL: 65+ (2 - PCV) [facility] Start: 2006 RSV Immunization aged 60 or older (1 - 1-dose 60+ series) RSV Immunization aged 60 or older (1 - 1-dose 60+ series) [facility] Start: 2006 RSV patients and/or patients aged 60+ years (1 - 1-dose 60+ series) RSV patients and/or patients aged 60+ years (1 - 1-dose 60+ series) [facility] Start: 2001 Screening for osteoporosis DEXA (modify frequency per FRAX score) [facility] Start: 1996 SHINGRIX VACCINE (1 of 2) SHINGRIX VACCINE (1 of 2) [facility] Start: 1996 Zoster vaccine hzv live for subcutaneous use ZOSTER (SHINGLES) VACCINE (1 of 2) [facility] Start: 1991 COLOGUARD (FIT-DNA) COLOGUARD (FIT-DNA) [facility] Start: 1991 Colonoscopy COLORECTAL CANCER SCREENING DISCUSSION [facility] Start: [address] COLONOGRAPHY [facility] Start: 1991 FECAL OCCULT BLOOD FECAL OCCULT BLOOD [facility] Start: 1991 Screening for malignant neoplasm of colon [facility] Start: 1986 Fasting lipid profile LIPID SCREENING [facility] Start: 1986 Screening mammography MAMMOGRAM SCREENING DISCUSSION [facility] Start: 1967 Screening for malignant neoplasm of cervix CERVICAL CANCER SCREENING DISCUSSION [facility] Start: 1965 Third diphtheria, tetanus and acellular pertussis (DTaP) vaccination TDAP (ADULT) [facility] Start: 1965 Urine screening for protein Diabetes: Urine Protein Screening [facility] Start: 1964 ANNUAL PCP TEAM CHRONIC DISEASE VISIT ANNUAL PCP TEAM CHRONIC DISEASE VISIT [facility] Start: 1964 BP CONTROLLED (<130/80) BP CONTROLLED (<130/80) [facility] Start: 1964 Diabetic retinal exam Diabetic retinal exam [facility] Start: 1964 Hepatitis C screening [facility] Start: 1964 HEPATITIS C SCREENING HEPATITIS C SCREENING [facility] Start: 1964 Tetanus vaccination TETANUS [facility] Start: 1958 COVID-19 VACCINE (1) COVID-19 VACCINE (1) [facility] Start: 1958 Depression Screen Depression Screen [facility] Start: 1956 Diabetic foot examination [facility] Start: 1956 Glaucoma screening Diabetes: Retinopathy Screening [facility] Start: 1956 Lipid panel [facility] Start: 1946 Annual Wellness Visit (AWV) Annual Wellness Visit (AWV) [facility] Start: 1946 Hepatitis C antibody, confirmatory test HEPATITIS C VIRUS SCREENING [facility] Start: 1946 Hepatitis C screening Hepatitis C screen [facility] Start: 1946 Lipid panel Lipid Panel [facility] Start: 1946 Medicare Annual Wellness (AWV) Medicare Annual Wellness (AWV) [facility] Start: 1946 Medicare Annual Wellness Visit Medicare Annual Wellness Visit (AWV) [facility] Start: 1946 Screening for osteoporosis [facility] Albumin [Moles/volum e] in Serum or Plasma [facility] Albumin/Globulin ratio [facility] Arsenic measurement [facility] End: 01-22-2024 Creatinine [Mass/volume] in Urine Creatinine, urine, random Lab Routine Once (Lab) for 1 Occurrences starting 01/22/2024 until 01/22/2024 [facility] Work Phone: Comment on above: Once (Lab) for 1 Occurrences starting until 01/22/2024 End: 03-12-2022 Ct abdomen & pelvis w/contrast material [facility] Work Phone: Comment on above: 1 Occurrences starting 03/12/2022 until 03/12/2022 Electrophoresis: [id number] [facility] Electrophoresis: heather ma globulin [facility] Fluid sample globuli n level [facility] Globulin measurement [facility] GOLD TOP TUBE GOLD TOP TUBE La b Routine 01/04/2021 2:07 PM [facility] IgA [Mass/volume] in Serum or Plasma [facility] IgG [Mass/volume] in Serum or Plasma [facility] IgM [Mass/volume] in Serum or Plasma [facility] LAVENDER TOP TUBE LAVENDER TOP T UBE Lab Routine 01/04/2021 2:07 PM [facility]T [facility] Lead measurement [facility] LT BLUE TOP TUBE LT BLUE TOP TUB E Lab Routine 01/04/2021 2:07 PM [facility] Measurement of monoclonal protein concentration [facility] Mercury measurement, blood [facility] MG Breast - bilatera l Diagnostic [facility] Work Phone: Patient Education Lumbar Puncture [facility] Work Phone: Patient referral [facility] Work Phone: Procedure [facility] Work Phone: Protein [Mass/volume ] in Urine [facility] Protein electrophore sis panel - Serum or Plasma [facility] Protein measurement, urine [facility] RAINBOW DRAW RAINBOW DRAW Lab Routine 01/04/2021 2:07 PM EDT [facility] Work Phone: Urine albumin measurement [facility] Urine culture Urine Culture [facility] Work Phone: [place] Carotid arteries [facility] Work Phone: VITAMIN A VITAMIN A Lab Ro utine 01/06/2021 1:36 AM [facility]IN E Lab Ro utine 01/06/2021 1:36 AM EDT [facility] Work Phone: VITAMIN K, SERUM VITAMIN K, SERU M Lab Routine 01/06/2021 1:36 AM EDT [facility] [place] [facility] [place] [facility] Immun[facility] Immunization Date Immunization Notes Care Provider Flynn flynn 02-03-2024 tetanus toxoid, redu glenn diphtheria toxoid, and acellular pertussis vaccine, adsorbed Alma Gilnida DO Work Phone: [facility] 03-21-2023 influenza virus vacc ine, unspecified formulation Aleksey Hill MD Work Phone: [facility] 04-23-2022 Pfizer COVID-19 vacc ine, bivalent, age 12 years and older (30 mcg/0.3 mL) Marilia Thomae DO Work Phone: [facility] Work Phone: 03-01-2022 influenza, injectabl e, quadrivalent, preservative free Marilia Thomae DO Work Phone: [facility] Work Phone: 03-01-2022 influenza virus vacc ine, unspecified formulation Ja De La Cruz MD Work Phone: [facility] 09-06-2021 COVID-19 original vaccine, age 12+ yr, monovalent (PFIZER-BIONTECH - PURPLE TOP) Aakash Bryan MD Work Phone: [facility] 09-06-2021 Covid-19, Pfizer Gra y Top, Do Not Dilute, (Age 12 Y+), Im, L Ca Naidu MD Work Phone: [facility] 03-16-2021 COVID-19 (Pfizer) 3 (purple) CARLOS GRANADOS Other [facility] 03-07-2021 influenza, injectabl e, quadrivalent, preservative free Marilia Thomae DO Work Phone: [facility] Work Phone: 08-24-2020 Covid (Pfizer) Dr. Hugo Grsos h Work Phone: [facility] 08-03-2020 Covid (Pfizer) Dr. Hugo quinteros Work Phone: [facility] 02-22-2020 influenza, injectabl e, quadrivalent, preservative free Marilia Thomae DO Work Phone: [facility] Work Phone: 02-03-2020 tetanus toxoid, redu glenn diphtheria toxoid, and acellular pertussis vaccine, adsorbed Dr. Hugo Julio Work Phone: [facility] 05-17-2019 zoster vaccine recombinant Aakash Bryan MD Work Phone: [facility] 01-19-2019 Seasonal trivalent influenza vaccine, adjuvanted, preservative free Aakash Bryan MD Work Phone: [facility] 01-06-2019 zoster vaccine recombinant Aakash Bryan MD Work Phone: [facility] 03-02-2018 influenza, seasonal, injectable Aakash Bryan MD Work Phone: [facility] 03-17-2017 influenza nasal, unspecified formulation Aakash Bryan MD Work Phone: [facility] 03-04-2017 influenza, seasonal, injectable Aakash Bryan MD Work Phone: [facility] 02-10-2017 influenza, high dose seasonal, preservative-free Aakash Bryan MD Work Phone: [facility] 03-18-2016 influenza, seasonal, injectable Aakash Bryan MD Work Phone: [facility] 02-19-2016 influenza, seasonal, injectable Aakash Bryan MD Work Phone: [facility] 02-07-2015 influenza, seasonal, injectable Aakash Bryan MD Work Phone: [facility] 02-07-2015 pneumococcal conjuga te vaccine, 13 valent Aakash Bryan MD Work Phone: [facility] 10-19-2014 tetanus toxoid, redu glenn diphtheria toxoid, and acellular pertussis vaccine, adsorbed Aakash Bryan MD Work Phone: [facility] 03-29-[address] Hugo Julio Work Phone: [facility] 03-29-2013 influenza, seasonal, injectable Aakash Bryan MD Work Phone: [facility] 03-29-2013 influenza, seasonal, injectable, preservative free Aakash Bryan MD Work Phone: [facility] 05-26-2011 pneumococcal Conjuga te, unspecified formulation Aakash Bryan MD Work Phone: [facility] 05-26-2011 pneumococcal polysaccharide vaccine, 23 valent Aakash Bryan MD Work Phone: [facility] 05-26-[address] Lori Julio Work Phone: [facility] Work Phone: 05-26-2011 pneumococcal vaccine , unspecified formulation Dr. Hugo Julio Work Phone: [facility] 03-20-2009 influenza virus vacc ine, unspecified formulation Ct (I-Stat) Work Phone: [facility] Work Phone: 05-18-2008 influenza virus vacc ine, whole virus Aakash Bryan MD Work Phone: [facility] 05-11-2007 influenza virus vacc ine, whole virus Ct (I-Stat) Work Phone: [facility] Work Phone: 05-07-2006 influenza virus vacc ine, unspecified formulation Ct (I-Stat) Work Phone: [facility] 05-07-2006 pneumococcal polysaccharide vaccine, [address] (I-Stat) Work Phone: [facility] 05-07-2006 tetanus toxoid, redu glenn diphtheria toxoid, and acellular pertussis vaccine, adsorbed Ct (I-Stat) Work Phone: [facility] 04-02-1999 influenza virus vacc ine, whole virus Ct (I-Stat) Work Phone: [facility] Work Phone: Payers Date Payer Category Payer Unknown [id number] 2024 Self-pay [id number] 2023 Medicare [id number] 2020 Unknown AARP AARP [id number] 2020-Present [address] [place] [address] [id number] 2018 Private Health Insurance [id number]. [id number] 2011 Medicare MEDICARE MEDICAR E A AND B [id number] 2011-Present [address] [place] [address] [id number]. [id number] 2011 Medicare [id number]. [id number]. [id number] 2011 Unknown 2011 Unknown [id number] 2011 Medicare [id number] 1946 Unknown [id number] 2..1.694174.3.579.2. 594 1946 Unknown [id number] ..1.518068.3.579.2. 356 1946 Unknown [id number] .1.093862.3.579.2. 356 1946 Unknown [id number] .0.1.415349.3.579.2. 356 1946 Unknown [id number] .0.1.845371.3.579.2. 356 1946 Unknown [id number] ..1.228886.3.579.2. 356 1946 Unknown [id number] .0.1.637539.3.579.2. 1244 1946 Unknown [id number] 2.16.840.1.173549.3.579.2. 1244 1946 Unknown [id number] 2..840.1.793353.3.579.2. 1244 1946 Unknown [id number] 2.840.1.315633.3.579.2. 627 1946 Unknown [id number] 2.840.1.274249.3.579.2. 627 Unknown [id number] 2.840.1.304822.3.579.2. 462 Unknown [id number] 2.840.1.023432.3.579.2. 462 Unknown [id number] 2.840.1.397869.3.579.2. 462 Unknown [id number] 2.840.1.537710.3.579.2. 462 Unknown [id number] 2.840.1.202329.3.579.2. 462 Unknown [id number] 2.840.1.161625.3.579.2. 462 Unknown [id number] 2.840.1.038641.3.579.2. 462 Unknown [id number] 2.840.1.448162.3.579.2. 462 Unknown [id number] 2.840.1.430224.3.579.2. 462 Unknown [id number] 2.840.1.715235.3.579.2. 462 Unknown [id number] 2.840.1.916924.3.579.2. 462 Unknown [id number] 2.840.1.573341.3.579.2. 462 Unknown [id number] 2.840.1.194087.3.579.2. 462 Unknown [id number] 2.840.1.502332.3.579.2. 462 Unknown [id number] 2.16.840.1.888818.3.579.2. 462 Unknown [id number] 2.16840.1.862317.3.579.2. 462 Unknown [id number] 2.16.840.1.662562.3.579.2. 462 Unknown [id number] 2.16.840.1.758602.3.579.2. 462 Unknown [id number] 2.16840.1.271880.3.579.2. 462 Unknown [id number] 2.840.1.121405.3.579.2. 462 Unknown [id number] 2.840.1.869949.3.579.2. 462 Unknown [id number] 2.840.1.215529.3.579.2. 462 Unknown [id number] 2.840.1.325123.3.579.2. 462 Unknown [id number] 2.840.1.944320.3.579.2. 462 Unknown [id number] 2.840.1.020985.3.579.2. 462 Unknown [id number] 2.840.1.907198.3.579.2. 462 Unknown [id number] 2.840.1.385674.3.579.2. 462 Unknown [id number] 2.840.1.479901.3.579.2. 462 Unknown [id number] 2.840.1.389335.3.579.2. 462 Unknown [id number] 2.840.1.689627.3.579.2. 462 Unknown [id number] 2.840.1.211915.3.579.2. 462 Unknown [id number] 2.840.1.794235.3.579.2. 462 Social History Date Type Detail Facility Start: 11-07-2022 End: 01-01-2024 Never a smoker Never a smoker [facility] Start: 08-17-2021 End: 02-06-2023 Tobacco smoking status NHIS Tobacco smoking consumption unknown [facility] Start: 1945 Sex Assigned At Not on file [facility] Start: 11-02-2021 End: 11-20-2023 Exposure to SARS-CoV-2 (event) Not sure [facility] Start: 02-03-2020 Non-smoker [facility] Start: 1945 Sex Assigned At Female [facility] Start: 01-04-2021 End: 05-07-2023 Tobacco smoking status NHIS Never smoker [facility] Start: 01-04-2021 End: 05-07-2023 Tobacco use and exposure Never used [facility] Start: 01-04-2021 End: 11-20-2023 Alcohol intake Ex-drinker (finding) [facility] Start: 11-07-2022 End: 01-01-2024 Sex Assigned At [facility] Start: 02-28-2022 End: 06-07-2022 Alcohol intake Current non-drinker of alcohol (finding) [facility] Start: 05-06-2013 None [facility] Within the last year , have you been afraid of your partner or ex-partner? No [facility] Start: 01-01-2024 Alcoholic beverage intake Lifetime non-drinker (finding) [facility] Start: 11-19-2023 Gender identity Identifies as female gender (finding) [facility] Medical Equipment Procedure Code Equipment Code Equipment Origin al Text Equipment Identifier Dates Insertion, spinal cord stimulator, permanent Envelope - Medium FDA Start: 09-03-2021 Insertion, spinal cord stimulator, permanent Intellis Adaptive Stim FDA Start: 09-03-2021 Insertion, spinal cord stimulator, permanent Lead Kit 60cm FDA Start: 09-03-2021 Insertion, spinal cord stimulator, permanent Envelope - Medium FDA Start: 09-03-2021 Insertion, spinal cord stimulator, permanent Intellis Adaptive Stim FDA Start: 09-03-2021 Insertion, spinal cord stimulator, permanent Lead Kit 60cm FDA Start: 09-03-2021 Insertion, spinal cord stimulator, permanent Envelope - Medium FDA Start: 09-03-2021 Insertion, spinal cord stimulator, permanent Intellis Adaptive Stim FDA Start: 09-03-2021 Insertion, spinal cord stimulator, permanent Lead Kit 60cm FDA Start: 09-03-2021 Insertion, spinal cord stimulator, permanent Envelope - Medium FDA Start: 09-03-2021 Insertion, spinal cord stimulator, permanent Intellis Adaptive Stim FDA Start: 09-03-2021 Insertion, spinal cord stimulator, permanent Lead Kit 60cm FDA Start: 09-03-2021 Insertion, spinal cord stimulator, permanent Envelope - Medium FDA Start: 09-03-2021 Insertion, spinal cord stimulator, permanent Intellis Adaptive Stim FDA Start: 09-03-2021 Insertion, spinal cord stimulator, permanent Lead Kit 60cm FDA Start: 09-03-2021 Insertion, spinal cord stimulator, permanent Envelope - Medium FDA Start: 09-03-2021 Insertion, spinal cord stimulator, permanent Intellis Adaptive Stim FDA Start: 09-03-2021 Insertion, spinal cord stimulator, permanent Lead Kit 60cm FDA Start: 09-03-2021 Insertion, spinal cord stimulator, permanent Envelope - Medium FDA Start: 09-03-2021 Insertion, spinal cord stimulator, permanent Intellis Adaptive Stim FDA Start: 09-03-2021 Insertion, spinal cord stimulator, permanent Lead Kit 60cm FDA Start: 09-03-2021 Insertion, spinal cord stimulator, permanent Envelope - Medium FDA Start: 09-03-2021 Insertion, spinal cord stimulator, permanent Intellis Adaptive Stim FDA Start: 09-03-2021 Insertion, spinal cord stimulator, permanent Lead Kit 60cm FDA Start: 09-03-2021 Insertion, spinal cord stimulator, permanent Envelope - Medium FDA Start: 09-03-2021 Insertion, spinal cord stimulator, permanent Intellis Adaptive Stim FDA Start: 09-03-2021 Insertion, spinal cord stimulator, permanent Lead Kit 60cm FDA Start: 09-03-2021 Insertion, spinal cord stimulator, permanent Envelope - Medium FDA Start: 09-03-2021 Insertion, spinal cord stimulator, permanent Intellis Adaptive Stim FDA Start: 09-03-2021 Insertion, spinal cord stimulator, permanent Lead Kit 60cm FDA Start: 09-03-2021 Insertion, spinal cord stimulator, permanent Envelope - Medium FDA Start: 09-03-2021 Insertion, spinal cord stimulator, permanent Intellis Adaptive Stim FDA Start: 09-03-2021 Insertion, spinal cord stimulator, permanent Lead Kit 60cm FDA Start: 09-03-2021 Insertion, spinal cord stimulator, permanent Envelope - Medium FDA Start: 09-03-2021 Insertion, spinal cord stimulator, permanent Intellis Adaptive Stim FDA Start: 09-03-2021 Insertion, spinal cord stimulator, permanent Lead Kit 60cm FDA Start: 09-03-2021 Insertion, spinal cord stimulator, permanent Envelope - Medium FDA Start: 09-03-2021 Insertion, spinal cord stimulator, permanent Intellis Adaptive Stim FDA Start: 09-03-2021 Insertion, spinal cord stimulator, permanent Lead Kit 60cm FDA Start: 09-03-2021 Insertion, spinal cord stimulator, permanent Envelope - Medium FDA Start: 09-03-2021 Insertion, spinal cord stimulator, permanent Intellis Adaptive Stim FDA Start: 09-03-2021 Insertion, spinal cord stimulator, permanent Lead Kit 60cm FDA Start: 09-03-2021 Insertion, spinal cord stimulator, permanent Envelope - Medium FDA Start: 09-03-2021 Insertion, spinal cord stimulator, permanent Intellis Adaptive Stim FDA Start: 09-03-2021 Insertion, spinal cord stimulator, permanent Lead Kit 60cm FDA Start: 09-03-2021 Insertion, spinal cord stimulator, permanent Envelope - Medium FDA Start: 09-03-2021 Insertion, spinal cord stimulator, permanent Intellis Adaptive Stim FDA Start: 09-03-2021 Insertion, spinal cord stimulator, permanent Lead Kit 60cm FDA Start: 09-03-2021 Insertion, spinal cord stimulator, permanent Envelope - Medium FDA Start: 09-03-2021 Insertion, spinal cord stimulator, permanent Intellis Adaptive Stim FDA Start: 09-03-2021 Insertion, spinal cord stimulator, permanent Lead Kit 60cm FDA Start: 09-03-2021 Insertion, spinal cord stimulator, permanent Envelope - Medium FDA Start: 09-03-2021 Insertion, spinal cord stimulator, permanent Intellis Adaptive Stim FDA Start: 09-03-2021 Insertion, spinal cord stimulator, permanent Lead Kit 60cm FDA Start: 09-03-2021 Sling [facility] Bl - [id number] Start: 12-02-2019 [id number] Start: 11-26-2019 Comment on above: USE ONCE A DAY DI RECTED once daily. Goals Date Patient Goal Desired Activity /State Mental Status Date Assessment Result Facility 09-03-2021 Cognitive function Voice/Name [facility] Work Phone: 05-30-2021 Cognitive function Voice/Name [facility] Work Phone: Clinical Notes 10-11-2001 to 02-08-2025 LaboratoryNormciara Hill MD - 03/01/2024 10:20 AM EDTDischarge InstructionsAttachmentsAlma Espinoza, DO - 02/03/2024 5:36 PM EDTMyosef Espinoza, DO - 02/03/2024 5:36 PM EDT Note Date & Type Note Facility 02-08-2025 Evaluation + Plan note Diagnostic Tests PendingMiscellaneous LC Test 02/08/25 Future Scheduled [id number] Hemoglobin 10/11/24Albumin/Creatinine Ratio, Random Urine 10/11/24PTH, Intact 10/11/24Vitamin D Level 10/11/24Complete Metabolic Panel 10/11/24 [facility] 10-14-2024 Note [facility] Medical Records Department [address] [place] [address] History Physical Exam 10/14/24 0654 MR#: [id number] Acct: [id number] Name: MADELYN LOVE Rep #: [id number] : 1945 79 From: Herman Friend PCP: Dr. Hugo Julio MD Status:[facility] Location: [place] [address] HPI - General General Date of Admission: 10/14/24 Date of Service: 10/14/24 Chief Complaint: diarrhea HPI Narrative 78y/o female presents for 1 month follow-up of diarrhea. She has reported at her last appointment that she was having up to 20+ BM daily. 05/20/2024 fecal calprotectin elevated 441. However, stool for C. diff was cancelled as lab reports the stool specimen was formed. - reports she has not been taking any Questran for 1-2 months - she reports stools can be a very little bit or a smear - then every 2-3 days she has a big ball of formed stool - denies any diarrhea since last seen - she has been taking Imodium the past month - taking 3 a day, 1 tablets after each meal - reports the Imodium has helped a lot with forming BM - gas and bloating - no worse with since starting the Imodium - she reports she is going to the bathroom and if she is passing 3-4 small stools in 1 sitting she counts this as 4 BM - reports she only goes to the bathroom 4x a day to pass stool - denies any watery stools - Citrucel 2 caplets with lunch daily - drinks 48h of Iced Tea daily - she is getting around at home with a walker - reports she has 3 pelvic fractures - rectal bleeding - BRB on tissue on occasion - hopes to leave for [place] tomorrow - I suspect the calprotectin was elevated secondary to contamination secondary to urine - she believes her last colonoscopy was 3-4 years ago and this was negative OV 05/19/2024 78y/o female presents for consultation with consultation with complaints of fecal incontinence with history of IBS-d, gastric bypass 2012, CCX 2013. She reports negative SIBO testing. She complains of watery diarrhea up to 20+ times a day for the past 2-3 weeks. She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 20 mg by mouth daily. GABAPENTIN (NEURONTIN) 300 MG CAPSULE Take 300 mg by mouth 3 times daily. KERENDIA 10 MG TABLET Take 1 tablet by mouth daily. MELATONIN 3 MG TABLET Take 3 mg by mouth. MIRABEGRON ER (MYRBETRIQ) 25 MG 24 HR TABLET Take 25 mg by mouth daily. Do not crush, chew, or split. PANTOPRAZOLE (PROTONIX) 40 MG EC TABLET Take 40 mg by mouth every morning (before breakfast). Do not crush, chew, or split. POTASSIUM 75 MG TABLET Take by mouth. SODIUM CHLORIDE 1 G TABLET Take 1 tablet (1 g) by mouth 2 times daily. TELMISARTAN (MICARDIS) 40 MG TABLET Take 40 mg by mouth in the morning and 40 mg in the evening. Take before meals. ALLERGIES Corticosteroids, Rofecoxib, Mirabegron, Nsaids, and Tramadol FAMILY HISTORY No family history on file. SOCIAL HISTORY Social History Socioeconomic History Marital status: Tobacco Use Smoking status: Never Substance and Sexual Activity Alcohol use: Not Currently Social Determinants of Health Food Insecurity: Low Risk (07/19/2023) Received from [facility] Food Security Within the past 12 months, the food you bought just didn't last and you didn't have money to get more.: 3 Within the past 12 months, you worried that your food would run out before you got money to buy more.: 3 Transportation Needs: Not At Risk (07/19/2023) Received from [facility] Transportation Needs In the past 12 months, has lack of reliable transportation kept you from medical appointments, meetings, work or from getting things needed for daily living?: No Physical Activity: Inactive (07/19/2023) Received from [facility] Physical Activity On average, how many days per week do you engage in moderate to strenuous exercise (like a brisk walk)?: 0 days On average, how many minutes do you engage in exercise at this level?: 0 min Intimate Partner Violence: Not At Risk (01/22/2024) Humiliation, Afraid, Rape, and Kick questionnaire Fear of Current or Ex-Partner: No Emotionally Abused: No Physically Abused: No Sexually Abused: No Housing Stability: Not At Risk (07/19/2023) Received from [facility] Housing What is your living situation today?: I have a steady place to live Think about the place you live. Do you have problems with any of the following?: None of the above PHYSICAL EXAM ED Triage Vitals [02/03/24 1743] Temp Heart Rate Resp BP 36.6 C (97.8 F) 85 14 (!) 153/69 SpO2 Temp Source Heart Rate Source Patient Position 93 % Temporal Monitor -- BP Location FiO2 (%) -- -- General: Well-developed, well-nourished patient lying in bed who appears non-toxic. Head: Atraumatic, normocephalic. No signs of basilar skull fracture. Eyes: No ocular trauma. EOMI. No proptosis. ENT: No facial or dental trauma. Neck: No cervical midline tenderness. No stepoff, crepitus, ecchymosis or deformity. Meets NEXUS criteria. Back: No midline tendernes. No stepoff, crepitus, ecchymosis or deformity. Chest: Tender to palpation, mostly anteriorly. No crepitus, ecchymosis or deformity. Heart: Regular rate and rhythm. Lungs: Clear to auscultation bilaterally. Normal respiratory pattern without conversational dyspnea or respiratory distress. Abdomen: Soft, non-tender, non-distended, no guarding or peritoneal signs. No seat belt austyn. Pelvis: Stable, non-tender. Neurologic: Awake and alert, normal speech and mental status. GCS 15. Pupils equal. Moves all extremities equally well. No clinical evidence of intoxication. No altered level of alertness. No focal deficits or lateralizing signs. Psychiatric: Mood and affect appropriate. Skin: Warm and dry, no lacerations. Skin tear noted to right proximal forearm. Musculoskeletal: Tenderness to the right elbow. Otherwise, extremities atraumatic x 4. All long bones palpated, all joints put through passive range of motion without pain or crepitus. DIAGNOSTIC RESULTS/EMERGENCY DEPARTMENT COURSE and DIFFERENTIAL DIAGNOSIS/MDM: Vitals: Vitals: 02/03/24 1743 BP: (!) 153/69 Pulse: 85 Resp: 14 Temp: 36.6 C (97.8 F) TempSrc: Temporal SpO2: 93% EKG: EKG was reviewed by myself. [facility] Making Problems Addressed: Contusion of chest wall, unspecified laterality, initial encounter: complicated acute illness or injury Contusion of right elbow, initial encounter: complicated acute illness or injury History of gastric bypass: complicated acute illness or injury Skin tear of right elbow without complication, initial encounter: complicated acute illness or injury Amount and/or Complexity of Data Reviewed Radiology: ordered. ECG/medicine tests: ordered. Risk OTC drugs. Prescription drug management. Medications provided in the ED included those listed below. The patient was discharged and was provided with return precautions and instructions for outpatient follow up, as well as instructions for wound care and to use acetaminophen and lidocaine. Interpretation per the Radiologist below, if available at the time of this note: XR elbow 3+ views right Final Result No acute osseous abnormality. Postsurgical changes. EXAMINATION: PA/Lateral chest INDICATION: trauma FINDINGS: There is no focal consolidation, sizable pleural effusion or pneumothorax. Mild elevation of right hemidiaphragm is present. Cardiac silhouette is enlarged. There is diffuse calcification of the thoracic aorta. There are degenerative changes of the spine. Reversal of the lower thoracic kyphosis. Small osteophytes of the spine are present at multiple levels. Spinal cord stimulator device leads overlie the lower thoracic region. IMPRESSION: Cardiomegaly with diffuse calcification of the aorta. Report Dictated on Electronically Signed By: Alivia Dupree MD Electronically Signed Date/Time: 02/03/2024 7:50 PM EDT XR chest 2 views Final Result No acute osseous abnormality. Postsurgical changes. EXAMINATION: PA/Lateral chest INDICATION: trauma FINDINGS: There is no focal consolidation, sizable pleural effusion or pneumothorax. Mild elevation of right hemidiaphragm is present. Cardiac silhouette is enlarged. There is diffuse calcification of the thoracic aorta. There are degenerative changes of the spine. Reversal of the lower thoracic kyphosis. Small osteophytes of the spine are present at multiple levels. Spinal cord stimulator device leads overlie the lower thoracic region. IMPRESSION: Cardiomegaly with diffuse calcification of the aorta. Report Dictated on Electronically Signed By: Alivia Dupree MD Electronically Signed Date/Time: 02/03/2024 7:50 PM EDT Medications Lidocaine 4 % patch 1 patch (1 patch TransDERmal Medication Applied 02/03/242024) Tdap (BoostRIX) vaccine 0.5 mL (0.5 mL IntraMUSCular Given 02/03/242026) oxyCODONE-acetaminophen (Percocet) 5-325 MG per tablet 2 tablet (2 tablets Oral Given 02/03/242023) acetaminophen (Tylenol) tablet 325 mg (325 mg Oral Given 02/03/242023) PROCEDURES: Unless otherwise noted below, none Procedures FINAL IMPRESSION 1. Contusion of chest wall, unspecified laterality, initial encounter 2. Contusion of right elbow, initial encounter 3. Skin tear of right elbow without complication, initial encounter 4. History of gastric bypass PATIENT REFERRED TO: Hugo Julio [address] [place] [address] [facility] [id number] Schedule an appointment as soon as possible for a visit DISCHARGE MEDICATIONS: New Prescriptions No medications on file (Comment: Please note this report has been produced using speech recognition software and may contain errors related to that system including errors in grammar, punctuation, and spelling, as well as words and phrases that may be inappropriate. If there are any questions or concerns please feel free to contact the dictating provider for clarification.) Alma Espinoza DO (electronically signed) Emergency Medicine Provider Alma Espinoza DO 02/03/242032 [facility] 01-24-2024 Plan of care note Problem: Pain - Adult Goal: Verbalizes/displays adequate comfort level or baseline comfort level Outcome: Progressing Problem: Safety - Adult Goal: Free from fall injury Outcome: Progressing Problem: Discharge Planning Goal: Discharge to home or other facility with appropriate resources Outcome: Progressing Problem: Chronic Conditions and Co-morbidities Goal: Patient's chronic conditions and co-morbidity symptoms are monitored and maintained or improved Outcome: Progressing [facility] 01-24-2024 Miscellaneous Notes Problem: Pain - Adult Goal: Verbalizes/displays adequate comfort level or baseline comfort level Outcome: Progressing Problem: Safety - Adult Goal: Free from fall injury Outcome: Progressing Problem: Discharge Planning Goal: Discharge to home or other facility with appropriate resources Outcome: Progressing Problem: Chronic Conditions and Co-morbidities Goal: Patient's chronic conditions and co-morbidity symptoms are monitored and maintained or improved Outcome: Progressing Care Managment Initial Assessment Date: 01/23/2024 Patient Name: Madelyn Love : 1945 Patient Information Source of Information: Patient Cognition/Language: WFL - Within Functional Limits Permission given to speak with patient entry level marketing representative/caregiver as indicated: Yes Confirmation of Payer with patient/family: Yes Payer Name: Medicare : No Confirmation of Primary Care Physician: Confirmed PCP Name: Dr. Hugo Julio Seen in last 2 years?: Yes Primary Caregiver: Self If assistance needed, confirmed caregiver ready, willing and able to care for patient at discharge: Confirmed with: Living Arrangements Current Residence: House Number of Floors 1 Number of Entry Steps: Bed/Bath Levels: Facility: Facility Name: Plan to Return: Yes Lives with: Spouse/significant other Support Systems: Spouse/significant other, Children Activities of Daily Living Ambulation: Independent Bathing/Dressing: Independent Elimination/Continence/Toileting: Independent Feeding: Independent Who Assists with Activities of Daily Living: Instrumental Activities of Daily Living Prescription Coverage: Yes Pharmacy Used: [facility] Medication Management: Independent Transportation/Shopping: Independent Transportation Mode: Car Needs Assistance with Transportation at Discharge: No Meal Preparation: Independent Laundry/Cleaning: Independent Finances/Bill Paying: Independent Communication: Independent Types of Care Services/Equipment Utilized Care Services: Dialysis Type: NA Durable Medical Equipment: Patient's Goal/Discharge Plan Patient expects to be discharged to: Home Discharge Planning Actions: No needs identified Patient's Choice Rights and [employer] and Collaborative Relationships Disclosed as Indicated for Post-Acute Care: Interdisciplinary Team Engagement: Social Work Referral for: Additional Information: Patient admitted to for syncope. Cardiology consulted, Echo, LE U/S and PT/OT evaluation. Discharge plan home independently pending therapy recommendations. Verenice Gu RN Problem: Pain - Adult Goal: Verbalizes/displays adequate comfort level or baseline comfort level Outcome: Progressing Problem: Discharge Planning Goal: Discharge to home or other facility with appropriate resources Outcome: Progressing Problem: Chronic Conditions and Co-morbidities Goal: Patient's chronic conditions and co-morbidity symptoms are monitored and maintained or improved Outcome: Progressing The patient is Moderately Stable - Low risk of patient condition declining or worsening documented in this encounter [facility] 01-24-2024 Note Nephrology Progress Note Patient: Madelyn Love Room number: [id number] Date of Admit: 01/22/2024 LOS: 2 days Admitting physician: Shivam Fitzgerald DO Referring physician: Girma Roberts MD Assessment/Plan: Madelyn Love is a 78 y.o. female with a past medical history of hypertension, hyponatremia, gastric bypass surgery, cervical myelopathy, type 2 diabetes who was admitted on 01/22/2024 with abnormal lab values sent from PCP. 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 #Hyponatremia, sodium 124 - She has hx of hyponatremia in the past. (07/2021) Admit for hyponatremia with Na 107, req ICU admit/3% saline, deemed from polydipsia, dc Na 130. Another episode of hyponatremia (07/2023) admit for rectal prolapse with Na 124 -> dc Na 133. Upon d/w primary nephro from [facility] (Dr Tiara Buck), (11/23) Na 136. - Home meds include lasix (currently on hold), Kerendia, new info per haldol po was Rx September 2023 after pt had psychosis, was on 1 mg daily now down to 0.5 mg daily. - admit (01/21) 11 am, Na 124, s/p 1 L NS bolus in ER. Rpt Na (01/22) 126. 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 - clinically euvolemic; asymptomatic - Psych ok'd for haldol to be dc, possibly gabapentin as well if hyponatremia persists. 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 Please call or page if any questions. If to be dc, will need to have BMP checked early next week, she will ffup with primary nephro Dr Tiara Buck. [facility] ([facility]) Office phone: [phone] Office fax: [phone] Pager: [phone] Sherman RN, ; greater than 30 min of time spent on reviewing primary/solutions consultant notes/labs, FTF time, interpretation of results, documentation and coordination of care Subjective: Interval history/events: No acute events overnight, patient resting comfortably in bed. Psych said ok to dc haldol. Sodium improved from 126 to 129 (corrected for BS 131). No nausea/vomiting/uncontrolled pain Past Medical History: 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 Dysuria 07/11/2021 Edema of lower extremity 10/17/2021 Esophageal reflux 05/07/2006 Essential hypertension, benign 01/05/2021 Fatigue 11/07/2022 GERD (gastroesophageal reflux disease) Heart valve disease 11/07/2022 History of delirium 11/12/2021 History of fall 07/11/2021 Hypoalbuminemia 12/09/2021 Hypocalcemia 07/12/2021 Hyponatremia 07/09/2021 Intestinal malabsorption 11/07/2022 Iron deficiency anemia 11/07/2022 Midline cystocele 01/21/2020 Morbid obesity (HCC) 11/07/2022 Osteoarthritis 01/05/2021 knees and back knees and back Other diseases of lung, not elsewhere classified 09/24/2007 Psychosis ([facility]) 01/04/2021 Secondary hyperparathyroidism (HCC) 07/12/2021 Skin lesion 11/07/2022 Stage 2 chronic kidney disease 05/14/2017 Steatorrhea 11/07/2022 Thrombosed external hemorrhoids 11/07/2022 Type 2 diabetes mellitus without complication, without long-term current use of insulin ([facility]/HCC) (HCC) 07/12/2021 Urge incontinence 01/21/2020 Urinary tract infectious disease 11/07/2022 Venous (peripheral) insufficiency 03/06/2005 Vitamin D deficiency 10/30/2021 Medications: MAR reviewed. aspirin, 81 mg, Oral, Daily Calcium Citrate-Vitamin D, 2 tablet, Oral, TID carvedilol, 25 mg, Oral, BID WC cefTRIAXone, 1,000 mg, IntraVENous, q24h enoxaparin, 40 mg, SubCUTAneous, Daily Finerenone, 1 tablet, Oral, Daily gabapentin, 300 mg, Oral, TID [Held by provider] haloperidol, 0.5 mg, Oral, q AM insulin lispro, 0-6 Units, SubCUTAneous, TID WC And insulin lispro, 0-6 Units, SubCUTAneous, Nightly losartan, 50 mg, Oral, Daily melatonin, 6 mg, Oral, Nightly mirabegron ER, 25 mg, Oral, Nightly pantoprazole, 40 mg, Oral, qAM AC sodium chloride, 1 g, Oral, TID WC (more content not included)... [facility] 01-24-2024 History of Present illness Narrative Images from the original note were not included. Nephrology Progress Note Patient: Madelyn Love Room number: [id number] Date of Admit: 01/22/2024 LOS: 2 days Admitting physician: Shivam Fitzgerald DO Referring physician: Girma Roberts MD Assessment/Plan: Madelyn Love is a 78 y.o. female with a past medical history of hypertension, hyponatremia, gastric bypass surgery, cervical myelopathy, type 2 diabetes who was admitted on 01/22/2024 with abnormal lab values sent from PCP. 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 #Hyponatremia, sodium 124 - She has hx of hyponatremia in the past. (07/2021) Admit for hyponatremia with Na 107, req ICU admit/3% saline, deemed from polydipsia, dc Na 130. Another episode of hyponatremia (07/2023) admit for rectal prolapse with Na 124 -> dc Na 133. Upon d/w primary nephro from [facility] (Dr Tiara Buck), (11/23) Na 136. - Home meds include lasix (currently on hold), Kerendia, new info per haldol po was Rx September 2023 after pt had psychosis, was on 1 mg daily now down to 0.5 mg daily. - admit (01/21) 11 am, Na 124, s/p 1 L NS bolus in ER. Rpt Na (01/22) 126. 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 - clinically euvolemic; asymptomatic - Psych ok'd for haldol to be dc, possibly gabapentin as well if hyponatremia persists. - Cont FR 1.5 L/day, can just be on NaCl tab 1 g bid # CKD 2 from [facility] - Cr has been <1, (11/23) Cr 0.91 eGFR 64 - on [id number] and Kerendia #Suspected UTI on urinalysis - Started on Rocephin in the ED - Urine cultures currently pending Acid/base - No significant derangements, bicarb normalized BP/Vol - Patient is normotensive and hemodynamically stable - avoid thiazides due to hyponatremia Thank you for this consult, we will continue to follow. Please call or page if any questions. If to be dc, will need to have BMP checked early next week, she will ffup with primary nephro Dr Tiara Buck. [facility] ([facility]) Office phone: [phone] Office fax: [phone] Pager: [phone] Roberts, RN, ; greater than 30 min of time spent on reviewing primary/solutions consultant notes/labs, FTF time, interpretation of results, documentation and coordination of care Subjective: Interval history/events: No acute events overnight, patient resting comfortably in bed. Psych said ok to dc haldol. Sodium improved from 126 to 129 (corrected for BS 131). No nausea/vomiting/uncontrolled pain Past Medical History: 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 Dysuria 07/11/2021 Edema of lower extremity 10/17/2021 Esophageal reflux 05/07/2006 Essential hypertension, benign 01/05/2021 Fatigue 11/07/2022 GERD (gastroesophageal reflux disease) Heart valve disease 11/07/2022 History of delirium 11/12/2021 History of fall 07/11/2021 Hypoalbuminemia 12/09/2021 Hypocalcemia 07/12/2021 Hyponatremia 07/09/2021 Intestinal malabsorption 11/07/2022 Iron deficiency anemia 11/07/2022 Midline cystocele 01/21/2020 Morbid obesity (HCC) 11/07/2022 Osteoarthritis 01/05/2021 knees and back knees and back Other diseases of lung, not elsewhere classified 09/24/2007 Psychosis (HCC) 01/04/2021 Secondary hyperparathyroidism (HCC) 07/12/2021 Skin lesion 11/07/2022 Stage 2 chronic kidney disease 05/14/2017 Steatorrhea 11/07/2022 Thrombosed external hemorrhoids 11/07/2022 Type 2 diabetes mellitus without complication, without long-term current use of insulin ([facility]/HCC) (HCC) 07/12/2021 Urge incontinence 01/21/2020 Urinary tract infectious disease 11/07/2022 Venous (peripheral) insufficiency 03/06/2005 Vitamin D deficiency 10/30/2021 Medications: MAR reviewed. aspirin, 81 mg, Oral, Daily Calcium Citrate-Vitamin D, 2 tablet, Oral, TID carvedilol, 25 mg, Oral, BID WC cefTRIAXone, 1,000 mg, IntraVENous, q24h enoxaparin, 40 mg, SubCUTAneous, Daily Finerenone, 1 tablet, Oral, Daily gabapentin, 300 mg, Oral, TID [Held by provider] haloperidol, 0.5 mg, Oral, q AM insulin lispro, 0-6 Units, SubCUTAneous, TID WC And insulin lispro, 0-6 Units, SubCUTAneous, Nightly losartan, 50 mg, Oral, Daily melatonin, 6 mg, Oral, Nightly mirabegron ER, 25 mg, Oral, Nightly pantoprazole, 40 mg, Oral, qAM AC sodium chloride, 1 g, Oral, TID WC Review of Systems: All other ROS negative except those noted above. Physical Exam: Vitals: 01/23/24 0726 01/23/24 1619 01/23/24 1946 01/24/24 0731 BP: (!) 165/79 141/74 118/59 159/69 BP Location: Left arm Left arm Left arm Patient Position: Sitting Sitting Sitting Pulse: 77 83 84 86 Resp: 18 16 18 Temp: 36.2 C (97.2 F) 36.5 C (97.7 F) 36.2 C (97.2 F) TempSrc: Temporal Temporal Temporal SpO2: 96% 95% 96% Weight: Height: Admission weight: 72.1 kg (159 lb) Wt Readings from Last 3 Encounters: 01/22/24 72.1 kg (159 lb) 11/07/22 68.1 kg (150 lb 3.2 oz) 11/12/21 62.2 kg (137 lb 3.2 oz) I/O last 3 completed shifts: In: 150 (2.1 mL/kg) [P.O.:150] Out: - (0 mL/kg) Weight: 72.1 kg Net IO Since Admission: 150 mL [01/24/24 1122] General: A&O x 3, NAD HEENT: Sclera clear, EOMI, MMM, Nose/ears/hearing grossly normal Neck: Supple, trachea midline, no mass, no TM Heart: RRR, no rub/heave Lungs: Clear bilaterally, unlabored Abd: Soft, (+) BS, non-tender Ext: No edema Neuro: No tremor/myoclonus LABS: Recent Labs 01/22/24 1044 01/23/24 0210 01/23/242016 WBC 8.9 6.8 6.8 HGB 10.9* 10.3* 10.2* HCT 33.6* 32.2* 32.7* MCV 92.6 93.9 94.2 PLT 289 276 290 No results found for: IRON, TIBC, FERRITIN No results found for: [id number], FOLATE Recent Labs 01/22/24 1044 01/22/24 1722 01/22/24 2115 01/23/24 0820 01/23/242016 NA 124* 124* 126* 126* 129* K 4.2 4.0 4.7 4.4 4.3 CL 91* 94* 96* 97* 100 CO2 25 20* 23 23 24 BUN 21* 23* 25* 19* 20* CREATININE 0.79 0.75 0.82 0.64 0.67 GLUCOSE 115* 198* 130* 175* 240* CALCIUM 8.2* 7.7* 7.7* 7.5* 8.1* MG 2.2 2.2 -- -- -- PHOS 4.3 4.1 -- -- -- ANIONGAP 8 10 7 6 5 Lab Results Component Value Date PTH 236.5 (H) 07/12/2021 CALCIUM 8.1 (L) 01/23/2024 CAION 4.20 (L) 01/22/2024 PHOS 4.1 01/22/2024 No components found for: [id number] Diagnostic Studies: Personally reviewed available data [labs, MARS, radiologic studies, and electronic records]. Parts of assessment/plan may have been copied from prior entry and amended as needed. It reflects full evaluation and pathophysiology of processes involved. Nutrition rescreen completed. Chart reviewed. Patient to be monitored and followed by the diet electrical technician instructor. JOSE LUIS Issa Hospitalist Progress Note 01/23/2024 Subjective: Admit Date: 01/22/2024 PCP: HUGO JULIO Room#: N4-461/[id number] A Interval History: No overnight issues. Denies nausea, cp sob, cough at bedside Discussed with bedside RN Adult diet Regular; 1500 ml 3 Day Weight Change: Unable to Calculate 24HR INTAKE/OUTPUT: Intake/Output Summary (Last 24 hours) at 01/23/2024 1326 Last data filed at 01/23/2024 0811 Gross per 24 hour Intake 150 ml Output -- Net 150 ml Past Medical History: 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 Dysuria 07/11/2021 Edema of lower extremity 10/17/2021 Esophageal reflux 05/07/2006 Essential hypertension, benign 01/05/2021 Fatigue 11/07/2022 GERD (gastroesophageal reflux disease) Heart valve disease 11/07/2022 History of delirium 11/12/2021 History of fall 07/11/2021 Hypoalbuminemia 12/09/2021 Hypocalcemia 07/12/2021 Hyponatremia 07/09/2021 Intestinal malabsorption 11/07/2022 Iron deficiency anemia 11/07/2022 Midline cystocele 01/21/2020 Morbid obesity (HCC) 11/07/2022 Osteoarthritis 01/05/2021 knees and back knees and back Other diseases of lung, not elsewhere classified 09/24/2007 Psychosis (HCC) 01/04/2021 Secondary hyperparathyroidism (HCC) 07/12/2021 Skin lesion 11/07/2022 Stage 2 chronic kidney disease 05/14/2017 Steatorrhea 11/07/2022 Thrombosed external hemorrhoids 11/07/2022 Type 2 diabetes mellitus without complication, without long-term current use of insulin ([facility]/HCC) (HCC) 07/12/2021 Urge incontinence 01/21/2020 Urinary tract infectious disease 11/07/2022 Venous (peripheral) insufficiency 03/06/2005 Vitamin D deficiency 10/30/2021 LABS: CBC: Recent Labs 01/22/24 1044 01/23/24 0210 WBC 8.9 6.8 RBC 3.63* 3.43* HGB 10.9* 10.3* HCT 33.6* 32.2* MCV 92.6 93.9 RDW 14.1 14.0 PLT 289 276 BMP: Recent Labs 01/22/24 1722 01/22/24 2115 01/23/24 0820 NA 124* 126* 126* K 4.0 4.7 4.4 CL 94* 96* 97* CO2 20* 23 23 BUN 23* 25* 19* CREATININE 0.75 0.82 0.64 GLUCOSE 198* 130* 175* CALCIUM 7.7* 7.7* 7.5* ANIONGAP 10 7 6 LIVER PROFILE: Recent Labs 01/22/24 1044 AST 28 ALT 20 BILITOT 0.3 ALKPHOS 197* PROT 6.4 PT/INR: No results for input(s): PROTIME, INR in the last 72 hours. CARDIAC ENZYMES: No results for input(s): TROPONINI in the last 72 hours. Procalcitonin: No results found for: PROCAL COVID-19 PCR: No results for input(s): COVID19 in the last 72 hours. No results found for this or any previous visit (from the past 4464 hour(s)). No echocardiogram results found for the past 12 months @IMAGES@ Objective: Vitals: BP (!) 165/79 (BP Location: Left arm, Patient Position: Sitting) Pulse 77 Temp 36.2 C (97.2 F) (Temporal) Resp 18 Ht 4' 8 (1.422 m) Wt 159 lb (72.1 kg) SpO2 96% BMI 35.65 kg/m Pulse Ox: SpO2 Av.3 % Min: 94 % Max: 96 % Supplemental O2: General appearance: No apparent distress, HEENT: Eyes: No scleral icterus Oral: Tongue is semi-moist Cardiovascular: S1/S2 heard, RRR Respiratory: Clear to auscultation bilaterally Abdomen: Soft, non-tender, non-distended bowel sounds positive Musculoskeletal: No obvious deformities seen Medications: Current Facility-Administered Medications: acetaminophen (Tylenol) tablet 650 mg, 650 mg, Oral, q6h PRN OR acetaminophen (Tylenol) suppository 650 mg, 650 mg, Rectal, q6h PRN, Shivam Kusar, DO aspirin EC tablet 81 mg, 81 mg, Oral, Daily, Shivam Kusar, DO, 81 mg at 01/23/24 0812 calcium citrate 315 mg + D2 6.25 mcg per tablet 1 tablet, 1 tablet, Oral, q12h, Shivam Kusar, DO carvedilol (Coreg) tablet 25 mg, 25 mg, Oral, BID WC, Shivam Kusar, DO, 25 mg at 01/23/24 0812 cefTRIAXone (Rocephin) 1,000 mg in sodium chloride 0.9 % 50 mL IVPB Mini-Bag Plus, 1,000 mg, IntraVENous, q24h, Shivam Kusar, DO, Stopped at 01/23/24 1229 dextrose 5 % infusion, 100 mL/hr, IntraVENous, PRN, Shivam Kusar, DO dextrose 50 % solution 12.5 g, 12.5 g, IntraVENous, PRN, Shivam Kusar, DO enoxaparin (Lovenox) syringe 40 mg, 40 mg, SubCUTAneous, Daily, Shivam Kusar, DO, 40 mg at 01/23/24811 Finerenone tablet 1 tablet, 1 tablet, Oral, Daily, Shivam Kusar, DO gabapentin (Neurontin) capsule 300 mg, 300 mg, Oral, TID, Shivam Kusar, DO, 300 mg at 01/23/24 08 glucagon (human recombinant) injection 1 mg, 1 mg, IntraMUSCular, PRN, Shivam Kusar, DO glucose oral gel 15 g, 15 g, Oral, PRN, Shivam Kusar, DO haloperidol (Haldol) tablet 0.5 mg, 0.5 mg, Oral, q AM, Shivam Kusar, DO, 0.5 mg at 01/23/24812 Insulin Lispro (Humalog) injection 0-6 Units, 0-6 Units, SubCUTAneous, TID WC AND Insulin Lispro (Humalog) injection 0-6 Units, 0-6 Units, SubCUTAneous, Nightly, Shivam Kusar, DO losartan (Cozaar) tablet 50 mg, 50 mg, Oral, Daily, Shivam Kusar, DO, 50 mg at 01/23/24811 melatonin tablet 6 mg, 6 mg, Oral, Nightly, Shivam Kusar, DO, 6 mg at 01/22/242113 mirabegron ER (Myrbetriq) 24 hr tablet 25 mg, 25 mg, Oral, Nightly, Shiavm Kusar, DO, 25 mg at 01/22/242112 naloxone (Narcan) injection 0.4 mg, 0.4 mg, IntraVENous, q5 min PRN, Shivam Kusar, DO ondansetron ODT (Zofran-ODT) disintegrating tablet 4 mg, 4 mg, Oral, q8h PRN OR ondansetron (Zofran) injection 4 mg, 4 mg, IntraVENous, q6h PRN, Shivam Kusar, DO pantoprazole (ProtoNix) EC tablet 40 mg, 40 mg, Oral, qAM AC, Shivam Kusar, DO, 40 mg at 01/23/24 0647 polyethylene glycol (PEG) 3350 (Miralax) packet 17 g, 17 g, Oral, Daily PRN, Shivam Bor, DO [Held by provider] sodium chloride 0.9 % infusion, 100 mL/hr, IntraVENous, Continuous, Shivam Kusar, DO, Stopped at 01/22/24 1522 traMADol (Ultram) tablet 50 mg, 50 mg, Oral, q8h PRN, Shivam Kusar, DO, 50 mg at 01/23/24 0811 Assessment Abnormal Lab (Pt was sent in to ED by pcp for hyponatremia. Last lab draw was yesterday, but pt states that her sodium levels have been trending down. Pt denies any complaints, any pain, or any concerns. Pt is a/o x 3; breathing is even and unlabored on room air. GCS 15. 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 nephrology follow, started salt tablets, consult psychiatry for input on haldol- anti psychosis UTI --follow UC, NGTD, c/w rocephin Hypocalcemia --replace Labile HTN DM with neuropathy -neurontin Cognitive deficits Obesity Stable chronic problems affecting care, new non-acute diagnoses: HTN history of gastric bypass surgery chronic back pain type 2 DM Hx of steroid psychosis Secondary hyperparathyroidism 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 Dysuria 07/11/2021 Edema of lower extremity 10/17/2021 Esophageal reflux 05/07/2006 Essential hypertension, benign 01/05/2021 Fatigue 11/07/2022 GERD (gastroesophageal reflux disease) Heart valve disease 11/07/2022 History of delirium 11/12/2021 History of fall 07/11/2021 Hypoalbuminemia 12/09/2021 Hypocalcemia 07/12/2021 Hyponatremia 07/09/2021 Intestinal malabsorption 11/07/2022 Iron deficiency anemia 11/07/2022 Midline cystocele 01/21/2020 Morbid obesity (HCC) 11/07/2022 Osteoarthritis 01/05/2021 knees and back knees and back Other diseases of lung, not elsewhere classified 09/24/2007 Psychosis (HCC) 01/04/2021 Secondary hyperparathyroidism (HCC) 07/12/2021 Skin lesion 11/07/2022 Stage 2 chronic kidney disease 05/14/2017 Steatorrhea 11/07/2022 Thrombosed external hemorrhoids 11/07/2022 Type 2 diabetes mellitus without complication, without long-term current use of insulin ([facility]/HCC) (HCC) 07/12/2021 Urge incontinence 01/21/2020 Urinary tract infectious disease 11/07/2022 Venous (peripheral) insufficiency 03/06/2005 Vitamin D deficiency 10/30/2021 Plan -am labs, replace lytes prn -increase activity -DVT prophylaxis: [x] Lovenox [] Heparin [] SCDs [x] Encourage ambulation [] Already on Anticoagulation Advance Directive: Full Code Family discussion: , confirmed with patient and , DNR DNI Anticipated Discharge - Date - 01/24 - Location - Home - Pending the following - lytes improvement Girma Roberts MD Division of Hospitalist Medicine Inpatient Medical Services/[facility] Images from the original note were not included. Nephrology Progress Note Patient: Madelyn Lvoe Room number: N4-461/N4-461 A Date of Admit: 01/22/2024 LOS: 1 days Admitting physician: Shivam Fitzgerald DO Referring physician: Girma Roberts MD Assessment/Plan: Madelyn Love is a 78 y.o. female with a past medical history of hypertension, hyponatremia, gastric bypass surgery, cervical myelopathy, type 2 diabetes who was admitted on 01/22/2024 with abnormal lab values sent from PCP. Patient was found to be hyponatremic at her primary care physician's office, labs significant for sodium of 124. #Hyponatremia, sodium 124 - She has hx of hyponatremia in the past. (07/2021) Admit for hyponatremia with Na 107, req ICU admit/3% saline, deemed from polydipsia, dc Na 130. Another episode of hyponatremia (07/2023) admit for rectal prolapse with Na 124 -> dc Na 133. Upon d/w primary nephro from [place] (Dr Tiara Buck), (11/23) Na 136. - Home meds include lasix (currently on hold), Kerendia, new info per haldol po was Rx September 2023 after pt had psychosis, was on 1 mg daily now down to 0.5 mg daily. - admit (01/21) 11 am, Na 124, s/p 1 L NS bolus in ER. Rpt Na (01/22) 126. 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 - clinically euvolemic; asymptomatic - Tighten FR to 1.5 L/day, start NaCl tab 1 g tid. Would ask Psych to possibly dc haldol. 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 Patient has no weight loss, constitutional symptoms. - 1.5L fluid restriction - start NaCl 1 g tid - Urine random protein/Cr given history of diabetic nephropathy. Awaiting urine Cr. - Agree with every 8-hour BMP, trend her sodium - Strict Is/Os - Avoid nephrotoxins, hypotension, contrast if possible. - Nephrology will continue to follow. This is a preliminary note and the case will be discussed with the attending physician. Please refer to attending attestation for the most accurate and up to date plan. Thank you for this consult, we will continue to follow. Please call or page if any questions Attending: Pt seen and examined independently from med student/resident. Agree with above HPI/PE/A/P along with my additional recs. 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 She has hx of hyponatremia in the past. (07/2021) Admit for hyponatremia with Na 107, req ICU admit/3% saline, deemed from polydipsia, dc Na 130. Another episode of hyponatremia (07/2023) admit for rectal prolapse with Na 124 -> dc Na 133. Upon d/w primary nephro from [place] (Dr Tiara Buck), (11/23) Na 136. Home meds include lasix, Kerendia, new info per haldol po was Rx September 2023 after pt had psychosis, was on 1 mg daily now down to 0.5 mg daily. On this admit, (01/21) 11 am, Na 124, clinically appears euvolemic. Was given 1 L NS bolus in ER. Rpt Na (01/22) 126. Pt denies drinking too much water but could not actually quantify her po intake. No NSAIDs. 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 Tighten FR to 1.5 L/day, start NaCl tab 1 g tid. Would ask Psych to possibly dc haldol. Stacie Smith MD [facility] ([facility]) Office phone: [phone] Office fax: [phone] Pager: [phone] Roberts, RN, ; greater than 30 min of time spent on reviewing primary/solutions consultant notes/labs, FTF time, interpretation of results, documentation and coordination of care Subjective: Interval history/events: No acute events overnight, patient resting comfortably in bed. She has no complaints. Sodium improved from 124 to 126. No nausea/vomiting/uncontrolled pain Past Medical History: 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 Dysuria 07/11/2021 Edema of lower extremity 10/17/2021 Esophageal reflux 05/07/2006 Essential hypertension, benign 01/05/2021 Fatigue 11/07/2022 GERD (gastroesophageal reflux disease) Heart valve disease 11/07/2022 History of delirium 11/12/2021 History of fall 07/11/2021 Hypoalbuminemia 12/09/2021 Hypocalcemia 07/12/2021 Hyponatremia 07/09/2021 Intestinal malabsorption 11/07/2022 Iron deficiency anemia 11/07/2022 Midline cystocele 01/21/2020 Morbid obesity (HCC) 11/07/2022 Osteoarthritis 01/05/2021 knees and back knees and back Other diseases of lung, not elsewhere classified 09/24/2007 Psychosis ([facility]) 01/04/2021 Secondary hyperparathyroidism ([facility]) 07/12/2021 Skin lesion 11/07/2022 Stage 2 chronic kidney disease 05/14/2017 Steatorrhea 11/07/2022 Thrombosed external hemorrhoids 11/07/2022 Type 2 diabetes mellitus without complication, without long-term current use of insulin ([facility]/HCC) (HCC) 07/12/2021 Urge incontinence 01/21/2020 Urinary tract infectious disease 11/07/2022 Venous (peripheral) insufficiency 03/06/2005 Vitamin D deficiency 10/30/2021 Medications: MAR reviewed. aspirin, 81 mg, Oral, Daily calcium citrate 315 mg + D2 6.25 mcg, 1 tablet, Oral, q12h carvedilol, 25 mg, Oral, BID WC cefTRIAXone, 1,000 mg, IntraVENous, q24h enoxaparin, 40 mg, SubCUTAneous, Daily Finerenone, 1 tablet, Oral, Daily gabapentin, 300 mg, Oral, TID haloperidol, 0.5 mg, Oral, q AM insulin lispro, 0-6 Units, SubCUTAneous, TID WC And insulin lispro, 0-6 Units, SubCUTAneous, Nightly losartan, 50 mg, Oral, Daily melatonin, 6 mg, Oral, Nightly mirabegron ER, 25 mg, Oral, Nightly pantoprazole, 40 mg, Oral, qAM AC [Held by provider] sodium chloride, 100 mL/hr, Last Rate: Stopped (01/22/24 1522) Review of Systems: All other ROS negative except those noted above. Physical Exam: Vitals: 01/22/24 1400 01/22/24 1500 01/22/24200001/23/24 0726 BP: 159/78 114/56 (!) 165/79 BP Location: Right arm Left arm Left arm Patient Position: Sitting Sitting Sitting Pulse: 71 75 77 Resp: 14 18 Temp: 36.1 C (97 F) 36.2 C (97.2 F) 36.2 C (97.2 F) TempSrc: Temporal Temporal Temporal SpO2: 96% 94% 96% Weight: 72.1 kg (159 lb) Height: 1.422 m (4' 8) Admission weight: 72.1 kg (159 lb) Wt Readings from Last 3 Encounters: 01/22/24 72.1 kg (159 lb) 11/07/22 68.1 kg (150 lb 3.2 oz) 11/12/21 62.2 kg (137 lb 3.2 oz) No intake/output data recorded. Net IO Since Admission: No IO data has been entered for this period [01/23/24 1002] General: A&O x 3, NAD HEENT: Sclera clear, EOMI, MMM, Nose/ears/hearing grossly normal Neck: Supple, trachea midline, no mass, no TM Heart: RRR, no rub/heave Lungs: Clear bilaterally, unlabored Abd: Soft, (+) BS, non-tender Ext: No edema Neuro: No tremor/myoclonus LABS: Recent Labs 01/22/24 1044 01/23/24 0210 WBC 8.9 6.8 HGB 10.9* 10.3* HCT 33.6* 32.2* MCV 92.6 93.9 PLT 289 276 No results found for: IRON, TIBC, FERRITIN No results found for: [id number], FOLATE Recent Labs 01/22/24 1044 01/22/24 1722 01/22/24 2115 01/23/24 0820 NA 124* 124* 126* 126* K 4.2 4.0 4.7 4.4 CL 91* 94* 96* 97* CO2 25 20* 23 23 BUN 21* 23* 25* 19* CREATININE 0.79 0.75 0.82 0.64 GLUCOSE 115* 198* 130* 175* CALCIUM 8.2* 7.7* 7.7* 7.5* MG 2.2 2.2 -- -- PHOS 4.3 4.1 -- -- ANIONGAP 8 10 7 6 Lab Results Component Value Date PTH 236.5 (H) 07/12/2021 CALCIUM 7.5 (L) 01/23/2024 CAION 4.20 (L) 01/22/2024 PHOS 4.1 01/22/2024 No components found for: [id number] Diagnostic Studies: Personally reviewed available data [labs, MARS, radiologic studies, and electronic records]. Parts of assessment/plan may have been copied from prior entry and amended as needed. It reflects full evaluation and pathophysiology of processes involved. documented in this encounter [facility] 01-24-2024 Note Hospitalist Discharg e Summary Madelyn Love : 1945 Admit date: 01/22/2024 Discharge date: 01/24/2024 Admitting Physician: Shivam Fitzgerald DO Primary Care Physician: HUGO JULIO Code Status: DNR-CCA DISCHARGE DIAGNOSIS: Hyponatremia Acute, acute on chronic, unstable/uncontrolled chronic problems/diagnoses: Moderate Hyponatremia --likely related to haldol, SIADH. nephrology follow, started salt tablets, consult psychiatry for input on haldol- anti psychosis UTI --follow UC, NGTD, c/w rocephin Hypocalcemia --replace Labile HTN DM with neuropathy -neurontin Cognitive deficits Obesity Stable chronic problems affecting care, new non-acute diagnoses: HTN history of gastric bypass surgery chronic back pain type 2 DM Hx of steroid psychosis Secondary hyperparathyroidism Body mass index is 35.65 kg/m?. 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 Dysuria 07/11/2021 Edema of lower extremity 10/17/2021 Esophageal reflux 05/07/2006 Essential hypertension, benign 01/05/2021 Fatigue 11/07/2022 GERD (gastroesophageal reflux disease) Heart valve disease 11/07/2022 History of delirium 11/12/2021 History of fall 07/11/2021 Hypoalbuminemia 12/09/2021 Hypocalcemia 07/12/2021 Hyponatremia 07/09/2021 Intestinal malabsorption 11/07/2022 Iron deficiency anemia 11/07/2022 Midline cystocele 01/21/2020 Morbid obesity (HCC) 11/07/2022 Osteoarthritis 01/05/2021 knees and back knees and back Other diseases of lung, not elsewhere classified 09/24/2007 Psychosis (HCC) 01/04/2021 Secondary hyperparathyroidism (HCC) 07/12/2021 Skin lesion 11/07/2022 Stage 2 chronic kidney disease 05/14/2017 Steatorrhea 11/07/2022 Thrombosed external hemorrhoids 11/07/2022 Type 2 diabetes mellitus without complication, without long-term current use of insulin ([facility]/HCC) (HCC) 07/12/2021 Urge incontinence 01/21/2020 Urinary tract infectious disease 11/07/2022 Venous (peripheral) insufficiency 03/06/2005 Vitamin D deficiency 10/30/2021 Hospital Course: See discharge diagnoses list above and medication adjustments below in med recPat Watson is a 78 y.o. female with PMH of HTN, history of hyponatremia, gastric bypass surgery, chronic back pain with spinal stimulator, cervical myelopathy, pelvis frx on ASA and type 2 DM2 In ED vitals hemodynamically stable. Labs sig for na 124, glucose 115, UA with bacteria, nitrates and leukocytes. Started on Ceftriaxone and given a fluid bolus. Seen in Triage. is present. Had episode of hyponatremia of 107 in 2021 and req ICU. At that time etiology was believed to be s/2 fluid intake. States she takes lasix. Denies WILDER, changes in vision, or urinary symptoms. States seen a cash application representative in [place] some time ago. Stopped haldol, started salt tablets. Na level improved. UC grew klebsiella, treated with abx. Continue salt tablets, fluid restriction 1500 ml. BMP next week. OP follow up with her nephrology at [place]. Updated . The patient is discharged in improved and stable condition. Discharge Instructions: Diet: Dietary Orders (From admission, onward) Start Ordered 01/23/24 1314 Adult diet Regular; 1500 ml Diet effective now Question Answer Comment Diet type Regular Dietary fluid restriction / 24h: 1500 ml 01/23/24 1314 Activity: as tolerated Disposition: Patient discharged in stable condition to Home. Greater than 31 minutes spent discharging the patient and coming up with patient discharge plan. Vitals: BP 159/69 (BP Location: Left arm, Patient Position: Sitting) Pulse 86 Temp 36.2 ?C (97.2 ?F) (Temporal) Resp 18 Ht 4' 8 (1.422 m) Wt 159 lb (72.1 kg) SpO2 96% BMI 35.65 kg/m? Pulse Ox: SpO2 Av.5 % Min: 95 % Max: 96 % Supplemental O2: General appearance: No apparent distress HEENT: Eyes: No scleral icterus Oral: Tongue is semi-moist Cardiovascular: S1/S2 heard, RRR Respiratory: Clear to auscultation bilaterally Abdomen: Soft, non-tender, non-distended bowel sounds positive Musculoskeletal: No obvious deformities seen Discharge Medications: Medication List START taking these medications cefdinir 300 MG capsule Commonly known as: Omnicef Take 1 capsule (300 mg) by mouth 2 times daily for 2 doses. sodium chloride 1 g tablet Take 1 tablet (1 g) by mouth 2 times daily. CONTINUE taking these medications aspirin 81 MG EC tablet Calcium Citrate + D3 250-5 MG-MCG tablet Generic drug: Calcium Citrate-Vitamin D carvedilol 25 MG tablet C (more content not included)... 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 nephrology follow, started salt tablets, consult psychiatry for input on haldol- anti psychosis UTI --follow UC, NGTD, c/w rocephin Hypocalcemia --replace Labile HTN DM with neuropathy -neurontin Cognitive deficits Obesity Stable chronic problems affecting care, new non-acute diagnoses: HTN history of gastric bypass surgery chronic back pain type 2 DM Hx of steroid psychosis Secondary hyperparathyroidism Body mass index is 35.65 kg/m . 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 Dysuria 07/11/2021 Edema of lower extremity 10/17/2021 Esophageal reflux 05/07/2006 Essential hypertension, benign 01/05/2021 Fatigue 11/07/2022 GERD (gastroesophageal reflux disease) Heart valve disease 11/07/2022 History of delirium 11/12/2021 History of fall 07/11/2021 Hypoalbuminemia 12/09/2021 Hypocalcemia 07/12/2021 Hyponatremia 07/09/2021 Intestinal malabsorption 11/07/2022 Iron deficiency anemia 11/07/2022 Midline cystocele 01/21/2020 Morbid obesity (HCC) 11/07/2022 Osteoarthritis 01/05/2021 knees and back knees and back Other diseases of lung, not elsewhere classified 09/24/2007 Psychosis (HCC) 01/04/2021 Secondary hyperparathyroidism (HCC) 07/12/2021 Skin lesion 11/07/2022 Stage 2 chronic kidney disease 05/14/2017 Steatorrhea 11/07/2022 Thrombosed external hemorrhoids 11/07/2022 Type 2 diabetes mellitus without complication, without long-term current use of insulin (CMS/HCC) (HCC) 07/12/2021 Urge incontinence 01/21/2020 Urinary tract infectious disease 11/07/2022 Venous (peripheral) insufficiency 03/06/2005 Vitamin D deficiency 10/30/2021 Hospital Course: See discharge diagnoses list above and medication adjustments below in med rec. Madelyn is a 78 y.o. female with PMH of HTN, history of hyponatremia, gastric bypass surgery, chronic back pain with spinal stimulator, cervical myelopathy, pelvis frx on ASA and type 2 DM2 In ED vitals hemodynamically stable. Labs sig for na 124, glucose 115, UA with bacteria, nitrates and leukocytes. Started on Ceftriaxone and given a fluid bolus. Seen in Triage. is present. Had episode of hyponatremia of 107 in 2021 and req ICU. At that time etiology was believed to be s/2 fluid intake. States she takes lasix. Denies WILDER, changes in vision, or urinary symptoms. States seen a cash application representative in [place] some time ago. Stopped haldol, started salt tablets. Na level improved. UC grew klebsiella, treated with abx. Continue salt tablets, fluid restriction 1500 ml. BMP next week. OP follow up with her nephrology at [place]. Updated . The patient is discharged in improved and stable condition. Discharge Instructions: Diet: Dietary Orders (From admission, onward) Start Ordered 01/23/24 1314 Adult diet Regular; 1500 ml Diet effective now Question Answer Comment Diet type Regular Dietary fluid restriction / 24h: 1500 ml 01/23/24 1314 Activity: as tolerated Disposition: Patient discharged in stable condition to Home. Greater than 31 minutes spent discharging the patient and coming up with patient discharge plan. Vitals: BP 159/69 (BP Location: Left arm, Patient Position: Sitting) Pulse 86 Temp 36.2 C (97.2 F) (Temporal) Resp 18 Ht 4' 8 (1.422 m) Wt 159 lb (72.1 kg) SpO2 96% BMI 35.65 kg/m Pulse Ox: SpO2 Av.5 % Min: 95 % Max: 96 % Supplemental O2: General appearance: No apparent distress HEENT: Eyes: No scleral icterus Oral: Tongue is semi-moist Cardiovascular: S1/S2 heard, RRR Respiratory: Clear to auscultation bilaterally Abdomen: Soft, non-tender, non-distended bowel sounds positive Musculoskeletal: No obvious deformities seen Discharge Medications: Medication List START taking these medications cefdinir 300 MG capsule Commonly known as: Omnicef Take 1 capsule (300 mg) by mouth 2 times daily for 2 doses. sodium chloride 1 g tablet Take 1 tablet (1 g) by mouth 2 times daily. CONTINUE taking these medications aspirin 81 MG EC tablet Calcium Citrate + D3 250-5 MG-MCG tablet Generic drug: Calcium Citrate-Vitamin D carvedilol 25 MG tablet Commonly known as: Coreg Farxiga 5 MG tablet Generic drug: dapagliflozin furosemide 20 MG tablet Commonly known as: Lasix gabapentin 300 MG capsule Commonly known as: Neurontin Kerendia 10 MG tablet Generic drug: Finerenone melatonin 3 MG tablet Myrbetriq 25 MG 24 hr tablet Generic drug: mirabegron ER pantoprazole 40 MG EC tablet Commonly known as: ProtoNix Potassium 75 MG tablet telmisartan 40 MG tablet Commonly known as: MIcarDIS STOP taking these medications haloperidol 0.5 MG tablet Commonly known as: Haldol Where to Get Your Medications These medications were sent to [facility]/pharmacy #[id number] - [place] [address] FROM [address] [address] Hours: 24-hours cefdinir 300 MG capsule sodium chloride 1 g tablet Recommended Follow-up: Hugo Julio [address] [place] [address] [facility] [id number] Schedule an appointment as soon as possible for a visit post hospital follow up Complexity of Follow up: [] Moderate Complexity: follow up within 7-14 calendar days (61847) [x] Severe Complexity: follow up within 7 calendar days (71787) Follow up Testing, Pending results or Referrals at Transitional Care Visit: [x] yes [] no Instructions to MA: Please call patient on day after discharge (must document patient contacted within 2 business days of discharge). Follow up questions for MA: 1. Did you get medications filled and taking them as instructed from discharge? 2. Are you following your discharge instructions from your hospital stay? 3. Please confirm patient is scheduled for a follow up appointment within the above time frame. Signed: Girma Roberts MD [facility] 01/24/2024 documented in this encounter [facility] 01-23-2024 Consult note Associated Order (s): IP CONSULT TO PSYCHIATRY Madelyn Love is a 78 y.o. female Chief Complaint Patient presents with Abnormal Lab Pt was sent in to ED by pcp for hyponatremia. Last lab draw was yesterday, but pt states that her sodium levels have been trending down. Pt denies any complaints, any pain, or any concerns. Pt is a/o x 3; breathing is even and unlabored on room air. GCS 15. See my note 01/23/2024 for assessment, plan. [facility] Work Phone: 01-23-2024 Consult note Associated Order (s): IP CONSULT TO PSYCHIATRY Madelyn Love is a 78 y.o. female Chief Complaint Patient presents with Abnormal Lab Pt was sent in to ED by pcp for hyponatremia. Last lab draw was yesterday, but pt states that her sodium levels have been trending down. Pt denies any complaints, any pain, or any concerns. Pt is a/o x 3; breathing is even and unlabored on room air. GCS 15. See my note 01/23/2024 for assessment, plan. Madelyn Love is a 78 y.o. female Chief Complaint Patient presents with Abnormal Lab Pt was sent in to ED by pcp for hyponatremia. Last lab draw was yesterday, but pt states that her sodium levels have been trending down. Pt denies any complaints, any pain, or any concerns. Pt is a/o x 3; breathing is even and unlabored on room air. GCS 15. Patient seen and examined, awake, alert, and cooperative, working a crossword puzzle. No SI, no psychosis evident. Patient reports prior incident of hyponatremia with sodium as low as 107 while in [place]. She is presently experiencing no significant mental status change. Does report having had psychosis associated with mental status change. Has been planning to wean haldol prior to admission. 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 Dysuria 07/11/2021 Edema of lower extremity 10/17/2021 Esophageal reflux 05/07/2006 Essential hypertension, benign 01/05/2021 Fatigue 11/07/2022 GERD (gastroesophageal reflux disease) Heart valve disease 11/07/2022 History of delirium 11/12/2021 History of fall 07/11/2021 Hypoalbuminemia 12/09/2021 Hypocalcemia 07/12/2021 Hyponatremia 07/09/2021 Intestinal malabsorption 11/07/2022 Iron deficiency anemia 11/07/2022 Midline cystocele 01/21/2020 Morbid obesity (HCC) 11/07/2022 Osteoarthritis 01/05/2021 knees and back knees and back Other diseases of lung, not elsewhere classified 09/24/2007 Psychosis (HCC) 01/04/2021 Secondary hyperparathyroidism (HCC) 07/12/2021 Skin lesion 11/07/2022 Stage 2 chronic kidney disease 05/14/2017 Steatorrhea 11/07/2022 Thrombosed external hemorrhoids 11/07/2022 Type 2 diabetes mellitus without complication, without long-term current use of insulin ([facility]/HCC) (HCC) 07/12/2021 Urge incontinence 01/21/2020 Urinary tract infectious disease 11/07/2022 Venous (peripheral) insufficiency 03/06/2005 Vitamin D deficiency 10/30/2021 Current Outpatient Medications Medication Instructions aspirin 81 mg, Oral, 2 time daily Calcium Citrate-Vitamin D (Calcium Citrate + D3) 250-5 MG-MCG tablet 1,200 mg, Oral, 3 times daily carvedilol (COREG) 25 mg, Oral, 2 times daily with meals dapagliflozin (FARXIGA) 5 mg, Oral, Daily furosemide (LASIX) 20 mg, Oral, Daily gabapentin (NEURONTIN) 300 mg, Oral, 3 times daily haloperidol (HALDOL) 0.5 mg, Oral, Daily Kerendia 10 MG tablet 1 tablet, Oral, Daily melatonin 3 mg, Oral mirabegron ER (MYRBETRIQ) 25 mg, Oral, Daily, Do not crush, chew, or split. pantoprazole (PROTONIX) 40 mg, Oral, Daily before breakfast, Do not crush, chew, or split. Potassium 75 MG tablet Oral telmisartan (MICARDIS) 40 mg, Oral, 2 times daily before meals Allergies Allergen Reactions Corticosteroids Hallucinations and Other Other reaction(s): Confusion Rofecoxib Swelling Mirabegron Other reaction(s): Confusion Nsaids Other Other reaction(s): Cramps stomach Tramadol Other reaction(s): Mental Status Change aspirin, 81 mg, Oral, Daily Calcium Citrate-Vitamin D, 2 tablet, Oral, TID carvedilol, 25 mg, Oral, BID WC cefTRIAXone, 1,000 mg, IntraVENous, q24h enoxaparin, 40 mg, SubCUTAneous, Daily Finerenone, 1 tablet, Oral, Daily gabapentin, 300 mg, Oral, TID [Held by provider] haloperidol, 0.5 mg, Oral, q AM insulin lispro, 0-6 Units, SubCUTAneous, TID WC And insulin lispro, 0-6 Units, SubCUTAneous, Nightly losartan, 50 mg, Oral, Daily melatonin, 6 mg, Oral, Nightly mirabegron ER, 25 mg, Oral, Nightly pantoprazole, 40 mg, Oral, qAM AC sodium chloride, 1 g, Oral, TID WC PRN medications: acetaminophen OR acetaminophen, dextrose, dextrose, glucagon (rDNA), glucose, naloxone, ondansetron ODT OR ondansetron, polyethylene glycol (PEG) 3350, traMADol Review of Systems Constitutional: Negative for diaphoresis and fatigue. Respiratory: Negative for cough and shortness of breath. Cardiovascular: Negative for chest pain. Gastrointestinal: Positive for diarrhea. Negative for constipation, nausea and vomiting. Neurological: Negative for tremors and seizures. Psychiatric/Behavioral: Negative for agitation, behavioral problems, decreased concentration, hallucinations, sleep disturbance and suicidal ideas. The patient is not nervous/anxious. Vitals: 01/22/24 1500 01/22/24200001/23/24 0726 01/23/24 1619 BP: 114/56 (!) 165/79 141/74 BP Location: Left arm Left arm Patient Position: Sitting Sitting Pulse: 75 77 83 Resp: 14 18 Temp: 36.2 C (97.2 F) 36.2 C (97.2 F) TempSrc: Temporal Temporal SpO2: 94% 96% Weight: 72.1 kg (159 lb) Height: 1.422 m (4' 8) Physical Exam Vitals reviewed. Constitutional: Appearance: Normal appearance. Cardiovascular: Rate and Rhythm: Normal rate. Pulmonary: Effort: Pulmonary effort is normal. Neurological: General: No focal deficit present. Mental Status: She is alert and oriented to person, place, and time. Mental status is at baseline. Psychiatric: Attention and Perception: She is attentive. She does not perceive auditory or visual hallucinations. Mood and Affect: Mood is not anxious or depressed. Speech: She is communicative. Speech is not tangential. Behavior: Behavior is not agitated or hyperactive. Thought Content: Thought content is not paranoid or delusional. Thought content does not include suicidal ideation. Cognition and Memory: Cognition is not impaired. She does not exhibit impaired recent memory. Judgment: Judgment is not impulsive. Recent Results (from the past 48 hour(s)) CBC Collection Time: 01/22/24 10:44 AM Result Value Ref Range Auto WBC 8.9 3.6 - 10.7 10*3/uL RBC 3.63 (L) 3.80 - 5.20 10*6/uL Hemoglobin 10.9 (L) 11.7 - 16.0 g/dL Hematocrit 33.6 (L) 35.0 - 47.0 % MCV 92.6 77.0 - 99.0 fL MCH 30.0 26.0 - 34.0 pg MCHC 32.4 30.5 - 36.0 % RDW 14.1 11.5 - 15.0 % Platelets 289 140 - 440 10*3/uL MPV 8.5 (L) 9.0 - 12.7 fL Basic metabolic panel Collection Time: 01/22/24 10:44 AM Result Value Ref Range SODIUM 124 (L) 135 - 145 mmol/L POTASSIUM 4.2 3.5 - 5.1 mmol/L CHLORIDE 91 (L) 98 - 107 mmol/L CARBON DIOXIDE 25 22 - 30 mmol/L UREA NITROGEN 21 (H) 7 - 17 mg/dL CREATININE 0.79 0.52 - 1.04 mg/dL GLUCOSE 115 (H) 70 - 100 mg/dL CALCIUM 8.2 (L) 8.4 - 10.4 mg/dL ANION GAP 8 3 - 13 mmol/L eGFR 77.2 >60.0 mL/min/1.73m*2 Magnesium Collection Time: 01/22/24 10:44 AM Result Value Ref Range MAGNESIUM 2.2 1.6 - 2.3 mg/dL Phosphorus Collection Time: 01/22/24 10:44 AM Result Value Ref Range PHOSPHORUS 4.3 2.5 - 4.5 mg/dL TSH Collection Time: 01/22/24 10:44 AM Result Value Ref Range THYROID STIMULATING HORMONE 1.394 0.465 - 4.680 uIU/mL Hepatic function panel Collection Time: 01/22/24 10:44 AM Result Value Ref Range BILIRUBIN, TOTAL 0.3 0.2 - 1.3 mg/dL BILIRUBIN, DIRECT 0.0 0.0 - 0.3 mg/dL ALKALINE PHOSPHATASE 197 (H) 38 - 126 U/L AST (SGOT) 28 15 - 46 U/L ALT 20 0 - 34 U/L ALBUMIN 3.6 3.5 - 5.0 g/dL TOTAL PROTEIN 6.4 6.3 - 8.2 g/dL Complete Urinalysis Collection Time: 01/22/24 10:45 AM Result Value Ref Range Color, Urine Colorless Lt. Yellow Clarity, Urine Clear Clear pH, Urine 5.5 5.0 - 8.0 pH Leukocytes, Urine 250 (A) Negative Marquez/uL Nitrite, Urine Positive (A) Negative Protein, Urine Negative Negative mg/dL Glucose, Urine 500 (A) Normal (<70) mg/dL Bilirubin, Urine Negative Negative mg/dL Ketones, Urine Negative Negative mg/dL Urobilinogen, Urine Normal Normal (0-1) mg/dL Blood, Urine Negative Negative mg/dL RBC, Urine 3-5 (A) 0 - 2 /HPF WBC, Urine 26-50 (A) 0 - 5 /HPF Squamous Epithelial, Urine 0-2 3 - 5 /HPF Bacteria, Urine Many (A) Negative /HPF Hyaline Casts, Urine Negative Negative /LPF SPECIFIC GRAVITY OF URINE (NUMERIC) 1.005 1.005 - 1.030 Urine culture Collection Time: 01/22/24 10:45 AM Specimen: Urine, Clean Catch Result Value Ref Range Urine Culture >100,000 CFU/mL Klebsiella pneumoniae (A) Calcium, ionized Collection Time: 01/22/24 5:22 PM Result Value Ref Range Calcium, Ion 4.20 (L) 4.30 - 5.20 mg/dL PH, IONIZED CALCIUM 7.35 7.31 - 7.46 Magnesium Collection Time: 01/22/24 5:22 PM Result Value Ref Range MAGNESIUM 2.2 1.6 - 2.3 mg/dL Renal function panel Collection Time: 01/22/24 5:22 PM Result Value Ref Range SODIUM 124 (L) 135 - 145 mmol/L POTASSIUM 4.0 3.5 - 5.1 mmol/L CHLORIDE 94 (L) 98 - 107 mmol/L CARBON DIOXIDE 20 (L) 22 - 30 mmol/L ANION GAP 10 3 - 13 mmol/L GLUCOSE 198 (H) 70 - 100 mg/dL UREA NITROGEN 23 (H) 7 - 17 mg/dL CREATININE 0.75 0.52 - 1.04 mg/dL eGFR 82.1 >60.0 mL/min/1.73m*2 CALCIUM 7.7 (L) 8.4 - 10.4 mg/dL ALBUMIN 3.5 3.5 - 5.0 g/dL PHOSPHORUS 4.1 2.5 - 4.5 mg/dL Basic metabolic panel Collection Time: 01/22/24 9:15 PM Result Value Ref Range SODIUM 126 (L) 135 - 145 mmol/L POTASSIUM 4.7 3.5 - 5.1 mmol/L CHLORIDE 96 (L) 98 - 107 mmol/L CARBON DIOXIDE 23 22 - 30 mmol/L UREA NITROGEN 25 (H) 7 - 17 mg/dL CREATININE 0.82 0.52 - 1.04 mg/dL GLUCOSE 130 (H) 70 - 100 mg/dL CALCIUM 7.7 (L) 8.4 - 10.4 mg/dL ANION GAP 7 3 - 13 mmol/L eGFR 73.8 >60.0 mL/min/1.73m*2 POCT glucose meter Collection Time: 01/22/24 9:19 PM Result Value Ref Range Glucose 144 (H) 70 - 100 mg/dL CBC auto differential Collection Time: 01/23/24 2:10 AM Result Value Ref Range Auto WBC 6.8 3.6 - 10.7 10*3/uL RBC 3.43 (L) 3.80 - 5.20 10*6/uL Hemoglobin 10.3 (L) 11.7 - 16.0 g/dL Hematocrit 32.2 (L) 35.0 - 47.0 % MCV 93.9 77.0 - 99.0 fL MCH 30.0 26.0 - 34.0 pg MCHC 32.0 30.5 - 36.0 % RDW 14.0 11.5 - 15.0 % Platelets 276 140 - 440 10*3/uL MPV 8.5 (L) 9.0 - 12.7 fL nRBC 0.0 0.0 - 2.0 /100 WBCs Neutrophils Relative 64.1 38.0 - 82.0 % Lymphocytes Relative 20.4 15.0 - 45.0 % Monocytes Relative 10.4 5.0 - 13.0 % Eosinophils Relative 3.9 0.0 - 6.0 % Basophils Relative 0.9 0.0 - 2.0 % Immature Grans % 0.3 0.0 - 2.0 % Neutrophils Absolute 4.3 1.8 - 7.5 10*3/uL Lymphocytes Absolute 1.4 1.0 - 4.3 10*3/uL Monocytes Absolute 0.7 0.0 - 0.9 10*3/uL Eosinophils Absolute 0.3 0.0 - 0.5 10*3/uL Basophils Absolute 0.1 0.0 - 0.2 10*3/uL Immature Grans Absolute 0.0 <0.1 10*3/uL Osmolality Collection Time: 01/23/24 2:10 AM Result Value Ref Range OSMOLALITY, SERUM 282 280 - 300 mOsm/kg Cortisol Collection Time: 01/23/24 2:10 AM Result Value Ref Range CORTISOL 10.6 ug/dL POCT glucose meter Collection Time: 01/23/24 8:06 AM Result Value Ref Range Glucose 156 (H) 70 - 100 mg/dL Basic metabolic panel Collection Time: 01/23/24 8:20 AM Result Value Ref Range SODIUM 126 (L) 135 - 145 mmol/L POTASSIUM 4.4 3.5 - 5.1 mmol/L CHLORIDE 97 (L) 98 - 107 mmol/L CARBON DIOXIDE 23 22 - 30 mmol/L UREA NITROGEN 19 (H) 7 - 17 mg/dL CREATININE 0.64 0.52 - 1.04 mg/dL GLUCOSE 175 (H) 70 - 100 mg/dL CALCIUM 7.5 (L) 8.4 - 10.4 mg/dL ANION GAP 6 3 - 13 mmol/L eGFR >90.0 >60.0 mL/min/1.73m*2 Sodium, urine, random Collection Time: 01/23/24 9:52 AM Result Value Ref Range SODIUM, URINE 50 30 - 90 mmol/L Osmolality, urine Collection Time: 01/23/24 9:52 AM Result Value Ref Range OSMOLALITY, URINE 425 300 - 1,000 mOsm/kg Protein, urine, random Collection Time: 01/23/24 9:52 AM Result Value Ref Range TOTAL PROTEIN, UR 21 (H) 0 - 12 mg/dL POCT glucose meter Collection Time: 01/23/24 11:58 AM Result Value Ref Range Glucose 83 70 - 100 mg/dL POCT glucose meter Collection Time: 01/23/24 4:18 PM Result Value Ref Range Glucose 99 70 - 100 mg/dL CXR unremarkable. 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 Plan Will discontinue haldol. Consider weaning gabapentin if hyponatremia persists if patient can tolerate neuropathy symptoms. Inpatient psychiatric hospitalization is not indicated. Patient stable to discharge home form psychaitric standpoint when medically appropriate. Patient may call my office for follow up as outpatient if desired. Associated Order(s): IP CONSULT TO NEPHROLOGY Images from the original note were not included. Nephrology Consult Note Consult date: 01/22/24 2:13 PM Patient: Madelyn Love Room number: [id number]/[id number] Date of Admit: 01/22/2024 LOS: 0 days Referring physician: Shivam Fitzgerald DO Outpatient [employer] Assistant: Tiara Buck DO Reason for Consult hyponatremia Chief complaint: Lab abnormality Assessment / Plan Madelyn Love is a 78 y.o. female with a past medical history of hypertension, hyponatremia, gastric bypass surgery, cervical myelopathy, type 2 diabetes who was admitted on 01/22/2024 with abnormal lab values sent from PCP. Patient was found to be hyponatremic at her primary care physician's office, labs significant for sodium of 124. #Hyponatremia, sodium 124 - Patient has a history of hyponatremia, to 107, requiring ICU admission in 2021. At that time it was thought to be secondary to excessive fluid intake. - Other than her hyponatremia, she is mildly depressed chloride 91, blood glucose 115, no signs of overt kidney injury. - She is in no acute distress and has really no symptoms at this time. - Home Lasix is currently being held, has been taking 20mg daily as prescribed. - Patient also takes Farxiga at home and has done for the past couple years. In the setting of concurrent diuretic use, this combination has been shown to occasionally induce hyponatremia in some patients. - Kerendia has also been shown to induce hyponatremia in some patients, particularly in those with type 2 diabetes, although this prevalence is low. - Denies any increased fluid intake or decreased PO intake. No significant changes to her diet. - Patient does not appear volume overloaded on exam, no crackles, no edema, no pitting. 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 Acid/base - No significant derangements, bicarb 25 BP/Vol - Patient is normotensive and hemodynamically stable Recommendations - Urine studies pending, urinary sodium, osm, creatinine, as well as serum osm. - Holding fluids pending above studies. - Will recheck renal panel now to assess her response to NS bolus in the ED. - Will check AM cortisol. - Urine random protein/Cr given history of diabetic nephropathy. - Agree with every 8-hour BMP, trend her sodium - Strict Is/Os - Avoid nephrotoxins, hypotension, contrast if possible. - Nephrology will continue to follow. This is a preliminary note and the case will be discussed with the attending physician. Please refer to attending attestation for the most accurate and up to date plan. Thank you for allowing us to participate in the care of this patient. Please call with any questions. Quincy Quintana, Attending: Pt seen and examined independently from med student/resident. Agree with above HPI/PE/A/P along with my additional recs. 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 She has hx of hyponatremia in the past. (07/2021) Admit for hyponatremia with Na 107, req ICU admit/3% saline, deemed from polydipsia, dc Na 130. Another episode of hyponatremia (07/2023) admit for rectal prolapse with Na 124 -> dc Na 133. Upon d/w primary nephro from [place] (Dr Tiara Buck), (11/23) Na 136. Home meds include lasix, Kerendia. On this admit, (01/21) Na 124, clinically appears euvolemic. Was given 1 L NS bolus in ER and was ordered NS @ 100 hr. Pt denies drinking too much water but could not actually quantify her po intake. No NSAIDs. Patient was found to be hyponatremic at her primary care physician's office, labs significant for sodium of (01/21) 11 am 124. TSH was 1.394. Checking sOsm, ur Osm, ur Na, and AM cortisol, re-checking RP now. Hold off on giving further fluids until urine indices back. No obvious offending meds. Further recs once labs back Stacie Smith MD [facility] ([facility]) Office phone: [phone] Office fax: [phone] Pager: [phone] 01/22/24 Greater than 60 min of time spent on reviewing primary/solutions consultant notes/outpt records/cumulative labs/previous hosp, FTF time, interpretation of results, documentation, coordination of care History of Present Illness Madelyn Love is a 78 y.o. female with a past medical history of hypertension, hyponatremia, gastric bypass surgery, cervical myelopathy, type 2 diabetes who was admitted on 01/22/2024 with abnormal lab values sent from PCP. Patient was found to be hyponatremic at her primary care physician's office, labs significant for sodium of 124. Patient also admitted earlier this year with a sodium of 124 and discharged with a sodium of 133. According the patient's she had an episode of hyponatremia requiring ICU admission in 2021, at the time her sodium was significantly low at 107 and etiology at the time was thought to be secondary to excessive fluid intake. She takes 20 mg Lasix at home and reports not missing any doses. In the emergency department urinalysis is suspicious for UTI, patient was started on Rocephin. She is currently receiving normal saline at 100 mL/h and was given a liter bolus with her Rocephin. 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 Tiara Buck DO, however she has not been seen in some time. Nephrology was consulted for hyponatremia workup and management. Past Medical History 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 Dysuria 07/11/2021 Edema of lower extremity 10/17/2021 Esophageal reflux 05/07/2006 Essential hypertension, benign 01/05/2021 Fatigue 11/07/2022 GERD (gastroesophageal reflux disease) Heart valve disease 11/07/2022 History of delirium 11/12/2021 History of fall 07/11/2021 Hypoalbuminemia 12/09/2021 Hypocalcemia 07/12/2021 Hyponatremia 07/09/2021 Intestinal malabsorption 11/07/2022 Iron deficiency anemia 11/07/2022 Midline cystocele 01/21/2020 Morbid obesity (HCC) 11/07/2022 Osteoarthritis 01/05/2021 knees and back knees and back Other diseases of lung, not elsewhere classified 09/24/2007 Psychosis (HCC) 01/04/2021 Secondary hyperparathyroidism (HCC) 07/12/2021 Skin lesion 11/07/2022 Stage 2 chronic kidney disease 05/14/2017 Steatorrhea 11/07/2022 Thrombosed external hemorrhoids 11/07/2022 Type 2 diabetes mellitus without complication, without long-term current use of insulin (CMS/HCC) (HCC) 07/12/2021 Urge incontinence 01/21/2020 Urinary tract infectious disease 11/07/2022 Venous (peripheral) insufficiency 03/06/2005 Vitamin D deficiency 10/30/2021 Past Surgical History Past Surgical History: Procedure Laterality Date SPINAL CORD STIMULATOR IMPLANT 09/03/2021 Family History No family history on file. Social History Social History Socioeconomic History Marital status: Tobacco Use Smoking status: Never Substance and Sexual Activity Alcohol use: Not Currently Social Determinants of Health Food Insecurity: Low Risk (07/19/2023) Received from [facility] Food Security Within the past 12 months, the food you bought just didn't last and you didn't have money to get more.: 3 Within the past 12 months, you worried that your food would run out before you got money to buy more.: 3 Transportation Needs: Not At Risk (07/19/2023) Received from [facility] Transportation Needs In the past 12 months, has lack of reliable transportation kept you from medical appointments, meetings, work or from getting things needed for daily living?: No Physical Activity: Inactive (07/19/2023) Received from [facility] Physical Activity On average, how many days per week do you engage in moderate to strenuous exercise (like a brisk walk)?: 0 days On average, how many minutes do you engage in exercise at this level?: 0 min Intimate Partner Violence: Not At Risk (07/19/2023) Received from [facility] Safety How often does anyone, including family and friends, threaten you with harm?: 1 How often does anyone, including family and friends, insult or talk down to you?: 1 How often does anyone, including family and friends, physically hurt you?: 1 How often does anyone, including family and friends, scream or curse at you?: 1 Housing Stability: Not At Risk (07/19/2023) Received from [facility] Housing What is your living situation today?: I have a steady place to live Think about the place you live. Do you have problems with any of the following?: None of the above Medications Scheduled Meds:aspirin, 81 mg, Oral, Daily calcium citrate 315 mg + D2 6.25 mcg, 1 tablet, Oral, q12h carvedilol, 25 mg, Oral, BID WC [START ON 01/23/2024] cefTRIAXone, 1,000 mg, IntraVENous, q24h enoxaparin, 40 mg, SubCUTAneous, Daily Finerenone, 1 tablet, Oral, Daily haloperidol, 0.5 mg, Oral, q AM insulin lispro, 0-6 Units, SubCUTAneous, TID WC And insulin lispro, 0-6 Units, SubCUTAneous, Nightly losartan, 50 mg, Oral, Daily melatonin, 6 mg, Oral, Nightly mirabegron ER, 25 mg, Oral, Nightly [START ON 01/23/2024] pantoprazole, 40 mg, Oral, qAM AC Continuous Infusions:sodium chloride, 100 mL/hr Allergies Allergies Allergen Reactions Corticosteroids Hallucinations and Other Other reaction(s): Confusion Rofecoxib Swelling Mirabegron Other reaction(s): Confusion Nsaids Other Other reaction(s): Cramps stomach Tramadol Other reaction(s): Mental Status Change Review of Systems All systems reviewed and neg except as above. Vital Signs Vitals: 01/22/24 1020 01/22/24 1022 01/22/24 1328 01/22/24 1400 BP: 117/58 (!) 151/61 159/78 BP Location: Right arm Patient Position: Sitting Pulse: 78 70 71 Resp: 18 16 Temp: 36.1 C (97 F) 36.1 C (97 F) TempSrc: Temporal Temporal SpO2: 97% 95% 96% Weight: 72.1 kg (159 lb) Height: 1.422 m (4' 8) Wt Readings from Last 3 Encounters: 01/22/24 72.1 kg (159 lb) 11/07/22 68.1 kg (150 lb 3.2 oz) 11/12/21 62.2 kg (137 lb 3.2 oz) Admit Wt: Weight: 72.1 kg (159 lb) Estimated body mass index is 35.65 kg/m as calculated from the following: Height as of this encounter: 1.422 m (4' 8). Weight as of this encounter: 72.1 kg (159 lb). No intake/output data recorded. Net IO Since Admission: No IO data has been entered for this period [01/22/24 1413] Physical Exam General: A&O x 3, NAD HEENT: Sclera clear, EOMI, MMM, Nose/ears/hearing grossly normal Neck: Supple, trachea midline, no mass, no TM Heart: RRR, no rub/heave Lungs: Clear bilaterally, unlabored Abd: Soft, (+) BS, non-tender Ext: No edema Neuro: No tremor/myoclonus Skin: warm and dry, no rash Access: PIV LABS Labs reviewed. Recent Labs 01/22/24 1044 WBC 8.9 HGB 10.9* HCT 33.6* MCV 92.6 PLT 289 Recent Labs 01/22/24 1044 NA 124* K 4.2 CL 91* CO2 25 BUN 21* CREATININE 0.79 GLUCOSE 115* CALCIUM 8.2* MG 2.2 PHOS 4.3 ANIONGAP 8 No results for input(s): ALT, AST, GGT, ALKPHOS, BILITOT, LIPASE in the last 72 hours. Diagnostic Studies I personally reviewed History and Physical, MAR, labs and imaging as above. No orders to display documented in this encounter [facility] 01-23-2024 Hospital Discharge instructions Nicolasa Romero MD - 01/23/2024 5:49 PM EDT Patient may call Dr. Nicolasa Romero's office for virtual follow up through [employer] nicholas. [phone]. Sayda Jeffries LPN - 01/24/2024 11:50 AM EDT Images from the original note were not included. Continuity of Care Form Patient Name: Madelyn Love : 1945 Admit date: 01/22/2024 Discharge date: Code Status Order: DNR-CCA Advance Directives: Y Admitting Physician: Shivam Fitzgerald DO PCP: HUGO JULIO Discharging Nurse: Discharging Hospital Unit/Room#: N4-461/N4-461 A Discharging Unit Phone Number: Emergency Contact: Extended Emergency Contact Information Primary Emergency Contact: Artis Love Mobile Relation: Spouse Past Surgical History: Past Surgical History: Procedure Laterality Date SPINAL CORD STIMULATOR IMPLANT 09/03/2021 Immunization History: Immunization History Administered Date(s) Administered Covid-19, Pfizer [place] Top, Do Not Dilute, (Age 12 Y+), Im, L 09/06/2021 Pfizer SARS-CoV-2 Vaccination 08/03/2020, 08/24/2020, 03/16/2021 Active Problems: Medical Problems Problem List * (Principal) Hyponatremia History of delirium Abnormal ultrasound of breast Acute cystitis without hematuria Allergic rhinitis Anterior knee pain Bursitis Carotid bruit Cholelithiasis Diffuse cystic mastopathy Edema of lower extremity Fatigue Esophageal reflux Heart valve disease Essential hypertension, benign Hypoalbuminemia Iron deficiency anemia Intestinal malabsorption Morbid obesity (HCC) Midline cystocele Irritable bowel syndrome with diarrhea Osteoarthritis Overview Signed 11/07/2022 2:53 PM by Brinda Andersen knees and back knees and back Other diseases of lung, not elsewhere classified Psychosis (HCC) RP (rectal prolapse) Skin lesion Stage 2 chronic kidney disease Steatorrhea Thrombosed external hemorrhoids Urge incontinence Urinary tract infectious disease Venous (peripheral) insufficiency Vitamin D deficiency Cognitive deficits Secondary hyperparathyroidism (HCC) Dysuria Hypocalcemia History of fall Type 2 diabetes mellitus without complication, without long-term current use of insulin (CMS/HCC) (HCC) Isolation/Infection: No active isolations No active infections Nurse Assessment: Last Vital Signs: BP 159/69 (BP Location: Left arm, Patient Position: Sitting) Pulse 86 Temp 36.2 C (97.2 F) (Temporal) Resp 18 Ht 1.422 m (4' 8) Wt 72.1 kg (159 lb) SpO2 96% BMI 35.65 kg/m Last documented pain score (0-10 scale): Last Weight: Wt Readings from Last 1 Encounters: 01/22/24 72.1 kg (159 lb) Mental Status: {SAMANTHA Patient Mental Status:70948} IV Access: {SAMANTHA IV Access:87855} Nursing Mobility/ADLs: Walking {TAYLOR ADL:::Independent} Transfer {TAYLOR ADL:::Independent} Bathing {TAYLOR ADL:::Independent} Dressing {TAYLOR ADL:::Independent} Toileting {TAYLOR ADL:80157::Independent} Feeding {TAYLOR ADL:::Independent} Frame Polisher {TAYLOR ADL:39609::Independent} Med Delivery {yes/no:35630} Wound Care Documentation and Therapy: Elimination: Continence: Bowel: {yes/no:82922} Bladder: {yes/no:82801} Urinary Catheter: {SAMANTHA Urinary Catheter:68882} Colostomy/Ileostomy/Ileal Conduit: {YES / NO:} Date of Last BM: No intake or output data in the 24 hours ending 01/24/24 1150 I/O last 3 completed shifts: In: 150 (2.1 mL/kg) [P.O.:150] Out: - (0 mL/kg) Weight: 72.1 kg Safety Concerns: {SAMANTHA Safety Concerns:47866} Impairments/Disabilities: {SAMANTHA Impairments/Disabilities:99702} Nutrition Therapy: Current Nutrition Therapy: {SAMANTHA Diet List:51134} Routes of Feeding: {routes of feedin} Liquids: {liquid consistency:12559} Daily Fluid Restriction: {daily fluid restriction:89570} Last Modified Barium Swallow with Video (Video Swallowing Test): {done not done:67311} Treatments at the Time of Hospital Discharge: Respiratory Treatments: Oxygen Therapy: {Therapy; copd oxygen:82480} Ventilator: {SAMANTHA Ventilator:46068} Rehab Therapies: {GEN THERAPY DISCIPLINE SCAL:8030812} Weight Bearing Status/Restrictions: {POD WEIGHT BEARIN} Other Medical Equipment (for information only, NOT a DME order): {Assistive Devices DME:86034} Other Treatments: Patient's personal belongings (please select all that are sent with patient): {SAMANTHA Patient Belongings:28723} RN SIGNATURE: {E-signature:90838} CASE MANAGEMENT/SOCIAL WORK SECTION Inpatient Status Date: Discharging to Facility/ Agency Name: Address: Phone: Fax: Dialysis Facility (if applicable) Name: Address: Dialysis Schedule: Phone: Fax: 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 under section 5119.14 or 5160-3-15.1 5 The individual requires the level of services provided by a nursing facility for the condition for which he or she was treated in the hospital and, Physician Certification: I certify the above information and transfer of Madelyn Love is necessary for the continuing treatment of the diagnosis listed and that she requires {SAMANTHA Level of Care:86322} for {greater less than:42123} 30 days. Update Admission H&P: {SAMANTHA Changes in H&P:11174} PHYSICIAN SIGNATURE: {E-signature:28244} documented in this encounter [facility] 01-23-2024 Consult note Formatting of th is note is different from the original. Madelyn Love is a 78 y.o. female Chief Complaint Patient presents with Abnormal Lab Pt was sent in to ED by pcp for hyponatremia. Last lab draw was yesterday, but pt states that her sodium levels have been trending down. Pt denies any complaints, any pain, or any concerns. Pt is a/o x 3; breathing is even and unlabored on room air. GCS 15. Patient seen and examined, awake, alert, and cooperative, working a crossword puzzle. No SI, no psychosis evident. Patient reports prior incident of hyponatremia with sodium as low as 107 while in [place]. She is presently experiencing no significant mental status change. Does report having had psychosis associated with mental status change. Has been planning to wean haldol prior to admission. 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 Dysuria 07/11/2021 Edema of lower extremity 10/17/2021 Esophageal reflux 05/07/2006 Essential hypertension, benign 01/05/2021 Fatigue 11/07/2022 GERD (gastroesophageal reflux disease) Heart valve disease 11/07/2022 History of delirium 11/12/2021 History of fall 07/11/2021 Hypoalbuminemia 12/09/2021 Hypocalcemia 07/12/2021 Hyponatremia 07/09/2021 Intestinal malabsorption 11/07/2022 Iron deficiency anemia 11/07/2022 Midline cystocele 01/21/2020 Morbid obesity (HCC) 11/07/2022 Osteoarthritis 01/05/2021 knees and back knees and back Other diseases of lung, not elsewhere classified 09/24/2007 Psychosis (HCC) 01/04/2021 Secondary hyperparathyroidism (HCC) 07/12/2021 Skin lesion 11/07/2022 Stage 2 chronic kidney disease 05/14/2017 Steatorrhea 11/07/2022 Thrombosed external hemorrhoids 11/07/2022 Type 2 diabetes mellitus without complication, without long-term current use of insulin ([facility]/HCC) (HCC) 07/12/2021 Urge incontinence 01/21/2020 Urinary tract infectious disease 11/07/2022 Venous (peripheral) insufficiency 03/06/2005 Vitamin D deficiency 10/30/2021 Current Outpatient Medications Medication Instructions aspirin 81 mg, Oral, 2 time daily Calcium Citrate-Vitamin D (Calcium Citrate + D3) 250-5 MG-MCG tablet 1,200 mg, Oral, 3 times daily carvedilol (COREG) 25 mg, Oral, 2 times daily with meals dapagliflozin (FARXIGA) 5 mg, Oral, Daily furosemide (LASIX) 20 mg, Oral, Daily gabapentin (NEURONTIN) 300 mg, Oral, 3 times daily haloperidol (HALDOL) 0.5 mg, Oral, Daily Kerendia 10 MG tablet 1 tablet, Oral, Daily melatonin 3 mg, Oral mirabegron ER (MYRBETRIQ) 25 mg, Oral, Daily, Do not crush, chew, or split. pantoprazole (PROTONIX) 40 mg, Oral, Daily before breakfast, Do not crush, chew, or split. Potassium 75 MG tablet Oral telmisartan (MICARDIS) 40 mg, Oral, 2 times daily before meals Allergies Allergen Reactions Corticosteroids Hallucinations and Other Other reaction(s): Confusion Rofecoxib Swelling Mirabegron Other reaction(s): Confusion Nsaids Other Other reaction(s): Cramps stomach Tramadol Other reaction(s): Mental Status Change aspirin, 81 mg, Oral, Daily Calcium Citrate-Vitamin D, 2 tablet, Oral, TID carvedilol, 25 mg, Oral, BID WC cefTRIAXone, 1,000 mg, IntraVENous, q24h enoxaparin, 40 mg, SubCUTAneous, Daily Finerenone, 1 tablet, Oral, Daily gabapentin, 300 mg, Oral, TID [Held by provider] haloperidol, 0.5 mg, Oral, q AM insulin lispro, 0-6 Units, SubCUTAneous, TID WC And insulin lispro, 0-6 Units, SubCUTAneous, Nightly losartan, 50 mg, Oral, Daily melatonin, 6 mg, Oral, Nightly mirabegron ER, 25 mg, Oral, Nightly pantoprazole, 40 mg, Oral, qAM AC sodium chloride, 1 g, Oral, TID WC PRN medications: acetaminophen OR acetaminophen, dextrose, dextrose, glucagon (rDNA), glucose, naloxone, ondansetron ODT OR ondansetron, polyethylene glycol (PEG) 3350, traMADol Review of Systems Constitutional: Negative for diaphoresis and fatigue. Respiratory: Negative for cough and shortness of breath. Cardiovascular: Negative for chest pain. Gastrointestinal: Positive for diarrhea. Negative for constipation, nausea and vomiting. Neurological: Negative for tremors and seizures. Psychiatric/Behavioral: Negative for agitation, behavioral problems, decreased concentration, hallucinations, sleep disturbance and suicidal ideas. The patient is not nervous/anxious. Vitals: 01/22/24 1500 01/22/24200001/23/24 0726 01/23/24 1619 BP: 114/56 (!) 165/79 141/74 BP Location: Left arm Left arm Patient Position: Sitting Sitting Pulse: 75 77 83 Resp: 14 18 Temp: 36.2 C (97.2 F) 36.2 C (97.2 F) TempSrc: Temporal Temporal SpO2: 94% 96% Weight: 72.1 kg (159 lb) Height: 1.422 m (4' 8) Physical Exam Vitals reviewed. Constitutional: Appearance: Normal appearance. Cardiovascular: Rate and Rhythm: Normal rate. Pulmonary: Effort: Pulmonary effort is normal. Neurological: General: No focal deficit present. Mental Status: She is alert and oriented to person, place, and time. Mental status is at baseline. Psychiatric: Attention and Perception: She is attentive. She does not perceive auditory or visual hallucinations. Mood and Affect: Mood is not anxious or depressed. Speech: She is communicative. Speech is not tangential. Behavior: Behavior is not agitated or hyperactive. Thought Content: Thought content is not paranoid or delusional. Thought content does not include suicidal ideation. Cognition and Memory: Cognition is not impaired. She does not exhibit impaired recent memory. Judgment: Judgment is not impulsive. Recent Results (from the past 48 hour(s)) CBC Collection Time: 01/22/24 10:44 AM Result Value Ref Range Auto WBC 8.9 3.6 - 10.7 10*3/uL RBC 3.63 (L) 3.80 - 5.20 10*6/uL Hemoglobin 10.9 (L) 11.7 - 16.0 g/dL Hematocrit 33.6 (L) 35.0 - 47.0 % MCV 92.6 77.0 - 99.0 fL MCH 30.0 26.0 - 34.0 pg MCHC 32.4 30.5 - 36.0 % RDW 14.1 11.5 - 15.0 % Platelets 289 140 - 440 10*3/uL MPV 8.5 (L) 9.0 - 12.7 fL Basic metabolic panel Collection Time: 01/22/24 10:44 AM Result Value Ref Range SODIUM 124 (L) 135 - 145 mmol/L POTASSIUM 4.2 3.5 - 5.1 mmol/L CHLORIDE 91 (L) 98 - 107 mmol/L CARBON DIOXIDE 25 22 - 30 mmol/L UREA NITROGEN 21 (H) 7 - 17 mg/dL CREATININE 0.79 0.52 - 1.04 mg/dL GLUCOSE 115 (H) 70 - 100 mg/dL CALCIUM 8.2 (L) 8.4 - 10.4 mg/dL ANION GAP 8 3 - 13 mmol/L eGFR 77.2 >60.0 mL/min/1.73m*2 Magnesium Collection Time: 01/22/24 10:44 AM Result Value Ref Range MAGNESIUM 2.2 1.6 - 2.3 mg/dL Phosphorus Collection Time: 01/22/24 10:44 AM Result Value Ref Range PHOSPHORUS 4.3 2.5 - 4.5 mg/dL TSH Collection Time: 01/22/24 10:44 AM Result Value Ref Range THYROID STIMULATING HORMONE 1.394 0.465 - 4.680 uIU/mL Hepatic function panel Collection Time: 01/22/24 10:44 AM Result Value Ref Range BILIRUBIN, TOTAL 0.3 0.2 - 1.3 mg/dL BILIRUBIN, DIRECT 0.0 0.0 - 0.3 mg/dL ALKALINE PHOSPHATASE 197 (H) 38 - 126 U/L AST (SGOT) 28 15 - 46 U/L ALT 20 0 - 34 U/L ALBUMIN 3.6 3.5 - 5.0 g/dL TOTAL PROTEIN 6.4 6.3 - 8.2 g/dL Complete Urinalysis Collection Time: 01/22/24 10:45 AM Result Value Ref Range Color, Urine Colorless Lt. Yellow Clarity, Urine Clear Clear pH, Urine 5.5 5.0 - 8.0 pH Leukocytes, Urine 250 (A) Negative Marquez/uL Nitrite, Urine Positive (A) Negative Protein, Urine Negative Negative mg/dL Glucose, Urine 500 (A) Normal (<70) mg/dL Bilirubin, Urine Negative Negative mg/dL Ketones, Urine Negative Negative mg/dL Urobilinogen, Urine Normal Normal (0-1) mg/dL Blood, Urine Negative Negative mg/dL RBC, Urine 3-5 (A) 0 - 2 /HPF WBC, Urine 26-50 (A) 0 - 5 /HPF Squamous Epithelial, Urine 0-2 3 - 5 /HPF Bacteria, Urine Many (A) Negative /HPF Hyaline Casts, Urine Negative Negative /LPF SPECIFIC GRAVITY OF URINE (NUMERIC) 1.005 1.005 - 1.030 Urine culture Collection Time: 01/22/24 10:45 AM Specimen: Urine, Clean Catch Result Value Ref Range Urine Culture >100,000 CFU/mL Klebsiella pneumoniae (A) Calcium, ionized Collection Time: 01/22/24 5:22 PM Result Value Ref Range Calcium, Ion 4.20 (L) 4.30 - 5.20 mg/dL PH, IONIZED CALCIUM 7.35 7.31 - 7.46 Magnesium Collection Time: 01/22/24 5:22 PM Result Value Ref Range MAGNESIUM 2.2 1.6 - 2.3 mg/dL Renal function panel Collection Time: 01/22/24 5:22 PM Result Value Ref Range SODIUM 124 (L) 135 - 145 mmol/L POTASSIUM 4.0 3.5 - 5.1 mmol/L CHLORIDE 94 (L) 98 - 107 mmol/L CARBON DIOXIDE 20 (L) 22 - 30 mmol/L ANION GAP 10 3 - 13 mmol/L GLUCOSE 198 (H) 70 - 100 mg/dL UREA NITROGEN 23 (H) 7 - 17 mg/dL CREATININE 0.75 0.52 - 1.04 mg/dL eGFR 82.1 >60.0 mL/min/1.73m*2 CALCIUM 7.7 (L) 8.4 - 10.4 mg/dL ALBUMIN 3.5 3.5 - 5.0 g/dL PHOSPHORUS 4.1 2.5 - 4.5 mg/dL Basic metabolic panel Collection Time: 01/22/24 9:15 PM Result Value Ref Range SODIUM 126 (L) 135 - 145 mmol/L POTASSIUM 4.7 3.5 - 5.1 mmol/L CHLORIDE 96 (L) 98 - 107 mmol/L CARBON DIOXIDE 23 22 - 30 mmol/L UREA NITROGEN 25 (H) 7 - 17 mg/dL CREATININE 0.82 0.52 - 1.04 mg/dL GLUCOSE 130 (H) 70 - 100 mg/dL CALCIUM 7.7 (L) 8.4 - 10.4 mg/dL ANION GAP 7 3 - 13 mmol/L eGFR 73.8 >60.0 mL/min/1.73m*2 POCT glucose meter Collection Time: 01/22/24 9:19 PM Result Value Ref Range Glucose 144 (H) 70 - 100 mg/dL CBC auto differential Collection Time: 01/23/24 2:10 AM Result Value Ref Range Auto WBC 6.8 3.6 - 10.7 10*3/uL RBC 3.43 (L) 3.80 - 5.20 10*6/uL Hemoglobin 10.3 (L) 11.7 - 16.0 g/dL Hematocrit 32.2 (L) 35.0 - 47.0 % MCV 93.9 77.0 - 99.0 fL MCH 30.0 26.0 - 34.0 pg MCHC 32.0 30.5 - 36.0 % RDW 14.0 11.5 - 15.0 % Platelets 276 140 - 440 10*3/uL MPV 8.5 (L) 9.0 - 12.7 fL nRBC 0.0 0.0 - 2.0 /100 WBCs Neutrophils Relative 64.1 38.0 - 82.0 % Lymphocytes Relative 20.4 15.0 - 45.0 % Monocytes Relative 10.4 5.0 - 13.0 % Eosinophils Relative 3.9 0.0 - 6.0 % Basophils Relative 0.9 0.0 - 2.0 % Immature Grans % 0.3 0.0 - 2.0 % Neutrophils Absolute 4.3 1.8 - 7.5 10*3/uL Lymphocytes Absolute 1.4 1.0 - 4.3 10*3/uL Monocytes Absolute 0.7 0.0 - 0.9 10*3/uL Eosinophils Absolute 0.3 0.0 - 0.5 10*3/uL Basophils Absolute 0.1 0.0 - 0.2 10*3/uL Immature Grans Absolute 0.0 <0.1 10*3/uL Osmolality Collection Time: 01/23/24 2:10 AM Result Value Ref Range OSMOLALITY, SERUM 282 280 - 300 mOsm/kg Cortisol Collection Time: 01/23/24 2:10 AM Result Value Ref Range CORTISOL 10.6 ug/dL POCT glucose meter Collection Time: 01/23/24 8:06 AM Result Value Ref Range Glucose 156 (H) 70 - 100 mg/dL Basic metabolic panel Collection Time: 08/23/24 8:20 AM Result Value Ref Range SODIUM 126 (L) 135 - 145 mmol/L POTASSIUM 4.4 3.5 - 5.1 mmol/L CHLORIDE 97 (L) 98 - 107 mmol/L CARBON DIOXIDE 23 22 - 30 mmol/L UREA NITROGEN 19 (H) 7 - 17 mg/dL CREATININE 0.64 0.52 - 1.04 mg/dL GLUCOSE 175 (H) 70 - 100 mg/dL CALCIUM 7.5 (L) 8.4 - 10.4 mg/dL ANION GAP 6 3 - 13 mmol/L eGFR >90.0 >60.0 mL/min/1.73m*2 Sodium, urine, random Collection Time: 01/23/24 9:52 AM Result Value Ref Range SODIUM, URINE 50 30 - 90 mmol/L Osmolality, urine Collection Time: 01/23/24 9:52 AM Result Value Ref Range OSMOLALITY, URINE 425 300 - 1,000 mOsm/kg Protein, urine, random Collection Time: 01/23/24 9:52 AM Result Value Ref Range TOTAL PROTEIN, UR 21 (H) 0 - 12 mg/dL POCT glucose meter Collection Time: 01/23/24 11:58 AM Result Value Ref Range Glucose 83 70 - 100 mg/dL POCT glucose meter Collection Time: 01/23/24 4:18 PM Result Value Ref Range Glucose 99 70 - 100 mg/dL CXR unremarkable. 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 Plan Will discontinue haldol. Consider weaning gabapentin if hyponatremia persists if patient can tolerate neuropathy symptoms. Inpatient psychiatric hospitalization is not indicated. Patient stable to discharge home form psychaitric standpoint when medically appropriate. Patient may call my office for follow up as outpatient if desired. [facility] 01-23-2024 Note Hospitalist Progress Note 01/23/2024 Subjective: Admit Date: 01/22/2024 PCP: HUGO JULIO Room#: N4-461/[id number] A Interval History: No overnight issues. Denies nausea, cp sob, cough at bedside Discussed with bedside RN Adult diet Regular; 1500 ml 3 Day Weight Change: Unable to Calculate 24HR INTAKE/OUTPUT: Intake/Output Summary (Last 24 hours) at 01/23/2024 1326 Last data filed at 01/23/2024 0811 Gross per 24 hour Intake 150 ml Output -- Net 150 ml Past Medical History: 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 Dysuria 07/11/2021 Edema of lower extremity 10/17/2021 Esophageal reflux 05/07/2006 Essential hypertension, benign 01/05/2021 Fatigue 11/07/2022 GERD (gastroesophageal reflux disease) Heart valve disease 11/07/2022 History of delirium 11/12/2021 History of fall 07/11/2021 Hypoalbuminemia 12/09/2021 Hypocalcemia 07/12/2021 Hyponatremia 07/09/2021 Intestinal malabsorption 11/07/2022 Iron deficiency anemia 11/07/2022 Midline cystocele 01/21/2020 Morbid obesity (HCC) 11/07/2022 Osteoarthritis 01/05/2021 knees and back knees and back Other diseases of lung, not elsewhere classified 09/24/2007 Psychosis (HCC) 01/04/2021 Secondary hyperparathyroidism (HCC) 07/12/2021 Skin lesion 11/07/2022 Stage 2 chronic kidney disease 05/14/2017 Steatorrhea 11/07/2022 Thrombosed external hemorrhoids 11/07/2022 Type 2 diabetes mellitus without complication, without long-term current use of insulin ([facility]/HCC) (HCC) 07/12/2021 Urge incontinence 01/21/2020 Urinary tract infectious disease 11/07/2022 Venous (peripheral) insufficiency 03/06/2005 Vitamin D deficiency 10/30/2021 LABS: CBC: Recent Labs 01/22/24 1044 01/23/24 0210 WBC 8.9 6.8 RBC 3.63* 3.43* HGB 10.9* 10.3* HCT 33.6* 32.2* MCV 92.6 93.9 RDW 14.1 14.0 PLT 289 276 BMP: Recent Labs 01/22/24 1722 01/22/24 2115 01/23/24 0820 NA 124* 126* 126* K 4.0 4.7 4.4 CL 94* 96* 97* CO2 20* 23 23 BUN 23* 25* 19* CREATININE 0.75 0.82 0.64 GLUCOSE 198* 130* 175* CALCIUM 7.7* 7.7* 7.5* ANIONGAP 10 7 6 LIVER PROFILE: Recent Labs 01/22/24 1044 AST 28 ALT 20 BILITOT 0.3 ALKPHOS 197* PROT 6.4 PT/INR: No results for input(s): PROTIME, INR in the last 72 hours. CARDIAC ENZYMES: No results for input(s): TROPONINI in the last 72 hours. Procalcitonin: No results found for: PROCAL COVID-19 PCR: No results for input(s): COVID19 in the last 72 hours. No results found for this or any previous visit (from the past 4464 hour(s)). No echocardiogram results found for the past 12 months @IMAGES@ Objective: Vitals: BP (!) 165/79 (BP Location: Left arm, Patient Position: Sitting) Pulse 77 Temp 36.2 ?C (97.2 ?F) (Temporal) Resp 18 Ht 4' 8 (1.422 m) Wt 159 lb (72.1 kg) SpO2 96% BMI 35.65 kg/m? Pulse Ox: SpO2 Av.3 % Min: 94 % Max: 96 % Supplemental O2: General appearance: No apparent distress, HEENT: Eyes: No scleral icterus Oral: Tongue is semi-moist Cardiovascular: S1/S2 heard, RRR Respiratory: Clear to auscultation bilaterally Abdomen: Soft, non-tender, non-distended bowel sounds positive Musculoskeletal: No obvious deformities seen Medications: Current Facility-Administered Medications: acetaminophen (Tylenol) tablet 650 mg, 650 mg, Oral, q6h PRN OR acetaminophen (Tylenol) suppository 650 mg, 650 mg, Rectal, q6h PRN, Shivam Kusar, DO aspirin EC tablet 81 mg, 81 mg, Oral, Daily, Shivam Kusar, DO, 81 mg at 01/23/24 0812 calcium citrate 315 mg + D2 6.25 mcg per tablet 1 tablet, 1 tablet, Oral, q12h, Shivam Kusar, DO carvedilol (Coreg) tablet 25 mg, 25 mg, Oral, BID WC, Shivam Kusar, DO, 25 mg at 01/23/24 0812 cefTRIAXone (Rocephin) 1,000 mg in sodium chloride 0.9 % 50 mL IVPB Mini-Bag Plus, 1,000 mg, IntraVENous, q24h, Shivam Kusar, DO, Stopped at 01/23/24 1229 dextrose 5 % infusion, 100 mL/hr, IntraVENous, PRN, Shivam Kusar, DO dextrose 50 % solution 12.5 g, 12.5 g, IntraVENous, PRN, Shivam Kusar, DO enoxaparin (Lovenox) syringe 40 mg, 40 mg, SubCUTAneous, Daily, Shivam Kusar, DO, 40 mg at 01/23/24 0812 Finerenone tablet 1 tablet, 1 tablet, Oral, Daily, Shivam Kusar, DO gabapentin (Neurontin) capsule 300 mg, 300 mg, Oral, TID, Shivam Kusar, DO, 300 mg at 01/23/24 0812 glucagon (human recombinant) injection 1 mg, 1 mg, IntraMUSCular, PRN, Shivam Kusar, DO glucose oral gel 15 g, 15 g, Oral, PRN, Shivam Kusar, DO haloperidol (Haldol) tablet 0.5 mg, 0.5 mg, Oral, q AM, Shivam Kusar, DO, 0. (more content not included)... [facility] 01-23-2024 Note Formatting of this n ote might be different from the original. Care Managment Initial Assessment Date: 01/23/2024 Patient Name: Madelyn Love : 1945 Patient Information Source of Information: Patient Cognition/Language: WFL - Within Functional Limits Permission given to speak with patient entry level marketing representative/caregiver as indicated: Yes Confirmation of Payer with patient/family: Yes Payer Name: Medicare [place]: No Confirmation of Primary Care Physician: Confirmed PCP Name: Dr. Hugo Julio Seen in last 2 years?: Yes Primary Caregiver: Self If assistance needed, confirmed caregiver ready, willing and able to care for patient at discharge: Confirmed with: Living Arrangements Current Residence: House Number of Floors 1 Number of Entry Steps: Bed/Bath Levels: Facility: Facility Name: Plan to Return: Yes Lives with: Spouse/significant other Support Systems: Spouse/significant other, Children Activities of Daily Living Ambulation: Independent Bathing/Dressing: Independent Elimination/Continence/Toileting: Independent Feeding: Independent Who Assists with Activities of Daily Living: Instrumental Activities of Daily Living Prescription Coverage: Yes Pharmacy Used: [facility] Medication Management: Independent Transportation/Shopping: Independent Transportation Mode: Car Needs Assistance with Transportation at Discharge: No Meal Preparation: Independent Laundry/Cleaning: Independent Finances/Bill Paying: Independent Communication: Independent Types of Care Services/Equipment Utilized Care Services: Dialysis Type: NA Durable Medical Equipment: Patient's Goal/Discharge Plan Patient expects to be discharged to: Home Discharge Planning Actions: No needs identified Patient's Choice Rights and [employer] and Collaborative Relationships Disclosed as Indicated for Post-Acute Care: Interdisciplinary Team Engagement: Social Work Referral for: Additional Information: Patient admitted to for syncope. Cardiology consulted, Echo, LE U/S and PT/OT evaluation. Discharge plan home independently pending therapy recommendations. Verenice Gu RN [facility] 01-23-2024 Note Formatting of this n ote might be different from the original. Care Managment Initial Assessment Date: 01/23/2024 Patient Name: Madelyn Love : 1945 Patient Information Source of Information: Patient Cognition/Language: WFL - Within Functional Limits Permission given to speak with patient entry level marketing representative/caregiver as indicated: Yes Confirmation of Payer with patient/family: Yes Payer Name: Medicare [place]: No Confirmation of Primary Care Physician: Confirmed PCP Name: Dr. Hugo Julio Seen in last 2 years?: Yes Primary Caregiver: Self If assistance needed, confirmed caregiver ready, willing and able to care for patient at discharge: Confirmed with: Living Arrangements Current Residence: House Number of Floors 1 Number of Entry Steps: Bed/Bath Levels: Facility: Facility Name: Plan to Return: Yes Lives with: Spouse/significant other Support Systems: Spouse/significant other, Children Activities of Daily Living Ambulation: Independent Bathing/Dressing: Independent Elimination/Continence/Toileting: Independent Feeding: Independent Who Assists with Activities of Daily Living: Instrumental Activities of Daily Living Prescription Coverage: Yes Pharmacy Used: [facility] Medication Management: Independent Transportation/Shopping: Independent Transportation Mode: Car Needs Assistance with Transportation at Discharge: No Meal Preparation: Independent Laundry/Cleaning: Independent Finances/Bill Paying: Independent Communication: Independent Types of Care Services/Equipment Utilized Care Services: Dialysis Type: NA Durable Medical Equipment: Patient's Goal/Discharge Plan Patient expects to be discharged to: Home Discharge Planning Actions: No needs identified Patient's Choice Rights and [employer] and Collaborative Relationships Disclosed as Indicated for Post-Acute Care: Interdisciplinary Team Engagement: Social Work Referral for: Additional Information: Patient admitted to for syncope. Cardiology consulted, Echo, LE U/S and PT/OT evaluation. Discharge plan home independently pending therapy recommendations. Verenice Gu RN [facility] 01-23-2024 Note Nephrology Progress Note Patient: Madelyn Love Room number: [id number]/[id number] Date of Admit: 01/22/2024 LOS: 1 days Admitting physician: Shivam Fitzgerald DO Referring physician: Girma Roberts MD Assessment/Plan: Madelyn Love is a 78 y.o. female with a past medical history of hypertension, hyponatremia, gastric bypass surgery, cervical myelopathy, type 2 diabetes who was admitted on 01/22/2024 with abnormal lab values sent from PCP. Patient was found to be hyponatremic at her primary care physician's office, labs significant for sodium of 124. #Hyponatremia, sodium 124 - She has hx of hyponatremia in the past. (07/2021) Admit for hyponatremia with Na 107, req ICU admit/3% saline, deemed from polydipsia, dc Na 130. Another episode of hyponatremia (07/2023) admit for rectal prolapse with Na 124 -> dc Na 133. Upon d/w primary nephro from [facility] (Dr Tiara Buck), (11/23) Na 136. - Home meds include lasix (currently on hold), Kerendia, new info per haldol po was Rx September 2023 after pt had psychosis, was on 1 mg daily now down to 0.5 mg daily. - admit (01/21) 11 am, Na 124, s/p 1 L NS bolus in ER. Rpt Na (01/22) 126. 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 - clinically euvolemic; asymptomatic - Tighten FR to 1.5 L/day, start NaCl tab 1 g tid. Would ask Psych to possibly dc haldol. 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 Patient has no weight loss, constitutional symptoms. - 1.5L fluid restriction - start NaCl 1 g tid - Urine random protein/Cr given history of diabetic nephropathy. Awaiting urine Cr. - Agree with every 8-hour BMP, trend her sodium - Strict Is/Os - Avoid nephrotoxins, hypotension, contrast if possible. - Nephrology will continue to follow. This is a preliminary note and the case will be discussed with the attending physician. Please refer to attending attestation for the most accurate and up to date plan. Thank you for this consult, we will continue to follow. Please call or page if any questions Attending: Pt seen and examined independently from med student/resident. Agree with above HPI/PE/A/P along with my additional recs. 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 She has hx of hyponatremia in the past. (07/2021) Admit for hyponatremia with Na 107, req ICU admit/3% saline, deemed from polydipsia, dc Na 130. Another episode of hyponatremia (07/2023) admit for rectal prolapse with Na 124 -> dc Na 133. Upon d/w primary nephro from [facility] (Dr Tiara Buck), (11/23) Na 136. Home meds include lasix, Kerendia, new info per haldol po was Rx September 2023 after pt had psychosis, was on 1 mg daily now down to 0.5 mg daily. On this admit, (01/21) 11 am, Na 124, clinically appears euvolemic. Was given 1 L NS bolus in ER. Rpt Na (01/22) 126. Pt denies drinking too much water but could not actually quantify her po intake. No NSAIDs. 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 Tighten FR to 1.5 L/day, start NaCl tab 1 g tid. Would ask Psych to possibly dc haldol. Stacie Smith MD [facility] ([facility]) Office phone: [phone] Office fax: [phone] Pager: [phone] Roberts, RN, ; greater than 30 min of time spent on reviewing primary/solutions consultant notes/labs, FTF time, interpretation of results, documentation and coordination of care Subjective: Interval history/events: No acute events overnight, patient resting comfortably in bed. She has no complaints. Sodium improved from 124 to 126. No nausea/vomiting/uncontrolled pain Past Medical History: 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 Dysuria 07/11/2021 Edema of lower extremity 10/17/2021 Esophageal reflux 05/07/2006 Essential hypertension, benign 01/05/2021 Fatigue 11/07/2022 GERD (gastroesophageal reflux disease) Heart valve disease 11/07/2022 History of delirium 11/12/2021 History of fall 07/11/2021 Hypoal (more content not included)... [facility] 01-22-2024 Plan of care note Problem: Pain - Adult Goal: Verbalizes/displays adequate comfort level or baseline comfort level Outcome: Progressing Problem: Discharge Planning Goal: Discharge to home or other facility with appropriate resources Outcome: Progressing Problem: Chronic Conditions and Co-morbidities Goal: Patient's chronic conditions and co-morbidity symptoms are monitored and maintained or improved Outcome: Progressing The patient is Moderately Stable - Low risk of patient condition declining or worsening [facility] 01-22-2024 Consult note Associated Order (s): IP CONSULT TO NEPHROLOGY Images from the original note were not included. Nephrology Consult Note Consult date: 01/22/24 2:13 PM Patient: Madelyn Love Room number: [id number]/[id number] Date of Admit: 01/22/2024 LOS: 0 days Referring physician: Shivam Fitzgerald DO Outpatient [employer] Assistant: Tiara Buck DO Reason for Consult hyponatremia Chief complaint: Lab abnormality Assessment / Plan Madelyn Love is a 78 y.o. female with a past medical history of hypertension, hyponatremia, gastric bypass surgery, cervical myelopathy, type 2 diabetes who was admitted on 01/22/2024 with abnormal lab values sent from PCP. Patient was found to be hyponatremic at her primary care physician's office, labs significant for sodium of 124. #Hyponatremia, sodium 124 - Patient has a history of hyponatremia, to 107, requiring ICU admission in 2021. At that time it was thought to be secondary to excessive fluid intake. - Other than her hyponatremia, she is mildly depressed chloride 91, blood glucose 115, no signs of overt kidney injury. - She is in no acute distress and has really no symptoms at this time. - Home Lasix is currently being held, has been taking 20mg daily as prescribed. - Patient also takes Farxiga at home and has done for the past couple years. In the setting of concurrent diuretic use, this combination has been shown to occasionally induce hyponatremia in some patients. - Kerendia has also been shown to induce hyponatremia in some patients, particularly in those with type 2 diabetes, although this prevalence is low. - Denies any increased fluid intake or decreased PO intake. No significant changes to her diet. - Patient does not appear volume overloaded on exam, no crackles, no edema, no pitting. 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 Acid/base - No significant derangements, bicarb 25 BP/Vol - Patient is normotensive and hemodynamically stable Recommendations - Urine studies pending, urinary sodium, osm, creatinine, as well as serum osm. - Holding fluids pending above studies. - Will recheck renal panel now to assess her response to NS bolus in the ED. - Will check AM cortisol. - Urine random protein/Cr given history of diabetic nephropathy. - Agree with every 8-hour BMP, trend her sodium - Strict Is/Os - Avoid nephrotoxins, hypotension, contrast if possible. - Nephrology will continue to follow. This is a preliminary note and the case will be discussed with the attending physician. Please refer to attending attestation for the most accurate and up to date plan. Thank you for allowing us to participate in the care of this patient. Please call with any questions. Quincy Quintana, Attending: Pt seen and examined independently from med student/resident. Agree with above HPI/PE/A/P along with my additional recs. 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 She has hx of hyponatremia in the past. (07/2021) Admit for hyponatremia with Na 107, req ICU admit/3% saline, deemed from polydipsia, dc Na 130. Another episode of hyponatremia (07/2023) admit for rectal prolapse with Na 124 -> dc Na 133. Upon d/w primary nephro from [place] (Dr Tiara Buck), (11/23) Na 136. Home meds include lasix, Kerendia. On this admit, (01/21) Na 124, clinically appears euvolemic. Was given 1 L NS bolus in ER and was ordered NS @ 100 hr. Pt denies drinking too much water but could not actually quantify her po intake. No NSAIDs. Patient was found to be hyponatremic at her primary care physician's office, labs significant for sodium of (01/21) 11 am 124. TSH was 1.394. Checking sOsm, ur Osm, ur Na, and AM cortisol, re-checking RP now. Hold off on giving further fluids until urine indices back. No obvious offending meds. Further recs once labs back Stacie Smith MD [facility] ([facility]) Office phone: [phone] Office fax: [phone] Pager: [phone] 01/22/24 Greater than 60 min of time spent on reviewing primary/solutions consultant notes/outpt records/cumulative labs/previous hosp, FTF time, interpretation of results, documentation, coordination of care History of Present Illness Madelyn Love is a 78 y.o. female with a past medical history of hypertension, hyponatremia, gastric bypass surgery, cervical myelopathy, type 2 diabetes who was admitted on 01/22/2024 with abnormal lab values sent from PCP. Patient was found to be hyponatremic at her primary care physician's office, labs significant for sodium of 124. Patient also admitted earlier this year with a sodium of 124 and discharged with a sodium of 133. According the patient's she had an episode of hyponatremia requiring ICU admission in 2021, at the time her sodium was significantly low at 107 and etiology at the time was thought to be secondary to excessive fluid intake. She takes 20 mg Lasix at home and reports not missing any doses. In the emergency department urinalysis is suspicious for UTI, patient was started on Rocephin. She is currently receiving normal saline at 100 mL/h and was given a liter bolus with her Rocephin. 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 Tiara Buck DO, however she has not been seen in some time. Nephrology was consulted for hyponatremia workup and management. Past Medical History 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 Dysuria 07/11/2021 Edema of lower extremity 10/17/2021 Esophageal reflux 05/07/2006 Essential hypertension, benign 01/05/2021 Fatigue 11/07/2022 GERD (gastroesophageal reflux disease) Heart valve disease 11/07/2022 History of delirium 11/12/2021 History of fall 07/11/2021 Hypoalbuminemia 12/09/2021 Hypocalcemia 07/12/2021 Hyponatremia 07/09/2021 Intestinal malabsorption 11/07/2022 Iron deficiency anemia 11/07/2022 Midline cystocele 01/21/2020 Morbid obesity (HCC) 11/07/2022 Osteoarthritis 01/05/2021 knees and back knees and back Other diseases of lung, not elsewhere classified 09/24/2007 Psychosis (HCC) 01/04/2021 Secondary hyperparathyroidism (HCC) 07/12/2021 Skin lesion 11/07/2022 Stage 2 chronic kidney disease 05/14/2017 Steatorrhea 11/07/2022 Thrombosed external hemorrhoids 11/07/2022 Type 2 diabetes mellitus without complication, without long-term current use of insulin ([facility]/HCC) (HCC) 07/12/2021 Urge incontinence 01/21/2020 Urinary tract infectious disease 11/07/2022 Venous (peripheral) insufficiency 03/06/2005 Vitamin D deficiency 10/30/2021 Past Surgical History Past Surgical History: Procedure Laterality Date SPINAL CORD STIMULATOR IMPLANT 09/03/2021 Family History No family history on file. Social History Social History Socioeconomic History Marital status: Tobacco Use Smoking status: Never Substance and Sexual Activity Alcohol use: Not Currently Social Determinants of Health Food Insecurity: Low Risk (07/19/2023) Received from [facility] Food Security Within the past 12 months, the food you bought just didn't last and you didn't have money to get more.: 3 Within the past 12 months, you worried that your food would run out before you got money to buy more.: 3 Transportation Needs: Not At Risk (07/19/2023) Received from [facility] Transportation Needs In the past 12 months, has lack of reliable transportation kept you from medical appointments, meetings, work or from getting things needed for daily living?: No Physical Activity: Inactive (07/19/2023) Received from [facility] Physical Activity On average, how many days per week do you engage in moderate to strenuous exercise (like a brisk walk)?: 0 days On average, how many minutes do you engage in exercise at this level?: 0 min Intimate Partner Violence: Not At Risk (07/19/2023) Received from [facility] Safety How often does anyone, including family and friends, threaten you with harm?: 1 How often does anyone, including family and friends, insult or talk down to you?: 1 How often does anyone, including family and friends, physically hurt you?: 1 How often does anyone, including family and friends, scream or curse at you?: 1 Housing Stability: Not At Risk (07/19/2023) Received from [facility] Housing What is your living situation today?: I have a steady place to live Think about the place you live. Do you have problems with any of the following?: None of the above Medications Scheduled Meds:aspirin, 81 mg, Oral, Daily calcium citrate 315 mg + D2 6.25 mcg, 1 tablet, Oral, q12h carvedilol, 25 mg, Oral, BID WC [START ON 01/23/2024] cefTRIAXone, 1,000 mg, IntraVENous, q24h enoxaparin, 40 mg, SubCUTAneous, Daily Finerenone, 1 tablet, Oral, Daily haloperidol, 0.5 mg, Oral, q AM insulin lispro, 0-6 Units, SubCUTAneous, TID WC And insulin lispro, 0-6 Units, SubCUTAneous, Nightly losartan, 50 mg, Oral, Daily melatonin, 6 mg, Oral, Nightly mirabegron ER, 25 mg, Oral, Nightly [START ON 01/23/2024] pantoprazole, 40 mg, Oral, qAM AC Continuous Infusions:sodium chloride, 100 mL/hr Allergies Allergies Allergen Reactions Corticosteroids Hallucinations and Other Other reaction(s): Confusion Rofecoxib Swelling Mirabegron Other reaction(s): Confusion Nsaids Other Other reaction(s): Cramps stomach Tramadol Other reaction(s): Mental Status Change Review of Systems All systems reviewed and neg except as above. Vital Signs Vitals: 01/22/24 1020 01/22/24 1022 01/22/24 1328 01/22/24 1400 BP: 117/58 (!) 151/61 159/78 BP Location: Right arm Patient Position: Sitting Pulse: 78 70 71 Resp: 18 16 Temp: 36.1 C (97 F) 36.1 C (97 F) TempSrc: Temporal Temporal SpO2: 97% 95% 96% Weight: 72.1 kg (159 lb) Height: 1.422 m (4' 8) Wt Readings from Last 3 Encounters: 01/22/24 72.1 kg (159 lb) 11/07/22 68.1 kg (150 lb 3.2 oz) 11/12/21 62.2 kg (137 lb 3.2 oz) Admit Wt: Weight: 72.1 kg (159 lb) Estimated body mass index is 35.65 kg/m as calculated from the following: Height as of this encounter: 1.422 m (4' 8). Weight as of this encounter: 72.1 kg (159 lb). No intake/output data recorded. Net IO Since Admission: No IO data has been entered for this period [01/22/24 1413] Physical Exam General: A&O x 3, NAD HEENT: Sclera clear, EOMI, MMM, Nose/ears/hearing grossly normal Neck: Supple, trachea midline, no mass, no TM Heart: RRR, no rub/heave Lungs: Clear bilaterally, unlabored Abd: Soft, (+) BS, non-tender Ext: No edema Neuro: No tremor/myoclonus Skin: warm and dry, no rash Access: PIV LABS Labs reviewed. Recent Labs 01/22/24 1044 WBC 8.9 HGB 10.9* HCT 33.6* MCV 92.6 PLT 289 Recent Labs 01/22/24 1044 NA 124* K 4.2 CL 91* CO2 25 BUN 21* CREATININE 0.79 GLUCOSE 115* CALCIUM 8.2* MG 2.2 PHOS 4.3 ANIONGAP 8 No results for input(s): ALT, AST, GGT, ALKPHOS, BILITOT, LIPASE in the last 72 hours. Diagnostic Studies I personally reviewed History and Physical, MAR, labs and imaging as above. No orders to display [facility] 01-22-2024 Emergency department Note Medic at bedside to transport pt to 4N on bed worker. Pt alert and stable, no signs of distress at this time Corinne Sarmiento RN 01/22/24 1332 [facility] 01-22-2024 Emergency department Note Medic at bedside to transport pt to 4N on bed worker. Pt alert and stable, no signs of distress at this time Corinne Sarmiento RN 01/22/24 1332 Emergency Department Encounter [facility] EMERGENCY DEPT Patient: Madelyn Love : 1945 Date of Evaluation: 01/22/2024 ED Supervising Physician: Ja De La Cruz MD I personally evaluated Madelyn Love and made/approved the management plan and take responsibility for the patient management. This will serve as my Supervisory note and shared attestation. I did perform a substantive portion of the visit including all aspects of the Medical Decision Making. I wore appropriate PPE for the entirety of this encounter. In brief, Madelyn Love is a 78 y.o. that presents to the emergency department for evaluation of low sodium. Patient had lab work performed by her primary care physician, Dr. Julio. Reportedly her sodium levels have been trending down recently. Patient has no complaints. Patient has had issues with hyponatremia in the past. Unsure of the etiology. Focused exam: Awake and alert, no appear distress. Resting comfortably in the chair. Skin is warm, dry, intact. Heart lung sounds are normal with normal heart rate and respiratory rate. Normal respiratory effort. Abdomen is soft, nondistended, nontender. Remedies unremarkable. Brief ED course/MDM: Patient presents emergency room for evaluation of hyponatremia found on outpatient workup by her primary care physician. Reportedly sodium levels have been trending down recently. CBC, BMP, mag, Phos, and urinalysis obtained in the ED. Hyponatremia confirmed at 124 with blood glucose of 115. Chloride also depressed at 91. No other significant arrangements on labs. Urinalysis does indicate urinary tract infection patient started on IV Rocephin here in the ED pending urine cultures. Urine osmolarity and urine sodium ordered and are pending. Patient will be admitted for continued evaluation and monitoring. Diagnostics interpreted by me: none I personally discussed the patient's management with other clinicians: none All diagnostic, treatment, and disposition decisions were made by myself in conjunction with the NICHOLAS. For all further details of the patient's emergency department visit, please see their documentation. (Comment: Please note this report has been produced using speech recognition software and may contain errors related to that system including errors in grammar, punctuation, and spelling, as well as words and phrases that may be inappropriate. If there are any questions or concerns please feel free to contact the dictating provider for clarification.) Ja De La Cruz MD Acute [facility] Ja De La Cruz MD 01/22/24 1135 documented in this encounter [facility] 01-22-2024 History and physical note Attending History and Physical Admit Date: 01/22/2024 PCP: HUGO JULIO CHIEF COMPLAINT: lab abnormality Reason for Admission: hyponatremia sent from PCP History Obtained From: patient HISTORY OF PRESENT ILLNESS: Madelyn is a 78 y.o. female with PMH of HTN, history of hyponatremia, gastric bypass surgery, chronic back pain with spinal stimulator, cervical myelopathy, pelvis frx on ASA and type 2 DM2 In ED vitals hemodynamically stable. Labs sig for na 124, glucose 115, UA with bacteria, nitrates and leukocytes. Started on Ceftriaxone and given a fluid bolus. Seen in Triage. is present. Had episode of hyponatremia of 107 in 2021 and req ICU. At that time etiology was believed to be s/2 fluid intake. States she takes lasix. Denies WILDER, changes in vision, or urinary symptoms. States seen a cash application representative in [place] some time ago. Will admit for further evaluation and management. Past Medical History: 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 Dysuria 07/11/2021 Edema of lower extremity 10/17/2021 Esophageal reflux 05/07/2006 Essential hypertension, benign 01/05/2021 Fatigue 11/07/2022 GERD (gastroesophageal reflux disease) Heart valve disease 11/07/2022 History of delirium 11/12/2021 History of fall 07/11/2021 Hypoalbuminemia 12/09/2021 Hypocalcemia 07/12/2021 Hyponatremia 07/09/2021 Intestinal malabsorption 11/07/2022 Iron deficiency anemia 11/07/2022 Midline cystocele 01/21/2020 Morbid obesity (HCC) 11/07/2022 Osteoarthritis 01/05/2021 knees and back knees and back Other diseases of lung, not elsewhere classified 09/24/2007 Psychosis (HCC) 01/04/2021 Secondary hyperparathyroidism (HCC) 07/12/2021 Skin lesion 11/07/2022 Stage 2 chronic kidney disease 05/14/2017 Steatorrhea 11/07/2022 Thrombosed external hemorrhoids 11/07/2022 Type 2 diabetes mellitus without complication, without long-term current use of insulin ([facility]) (HCC) 07/12/2021 Urge incontinence 01/21/2020 Urinary tract infectious disease 11/07/2022 Venous (peripheral) insufficiency 03/06/2005 Vitamin D deficiency 10/30/2021 Past Surgical History: Past Surgical History: Procedure Laterality Date SPINAL CORD STIMULATOR IMPLANT 09/03/2021 Social History: Social History Socioeconomic History Marital status: Spouse name: Not on file Number of children: Not on file Years of education: Not on file Highest education level: Not on file Occupational History Not on file Tobacco Use Smoking status: Never Smokeless tobacco: Not on file Substance and Sexual Activity Alcohol use: Not Currently Drug use: Not on file Sexual activity: Not on file Other Topics Concern Not on file Social History Narrative Not on file Social Determinants of Health Financial Resource Strain: Not on file Food Insecurity: Low Risk (07/19/2023) Received from [facility] Food Security Within the past 12 months, the food you bought just didn't last and you didn't have money to get more.: 3 Within the past 12 months, you worried that your food would run out before you got money to buy more.: 3 Transportation Needs: Not At Risk (07/19/2023) Received from [facility] Transportation Needs In the past 12 months, has lack of reliable transportation kept you from medical appointments, meetings, work or from getting things needed for daily living?: No Physical Activity: Inactive (07/19/2023) Received from [facility] Physical Activity On average, how many days per week do you engage in moderate to strenuous exercise (like a brisk walk)?: 0 days On average, how many minutes do you engage in exercise at this level?: 0 min Stress: Not on file Social Connections: Not on file Intimate Partner Violence: Not At Risk (07/19/2023) Received from [facility] Safety How often does anyone, including family and friends, threaten you with harm?: 1 How often does anyone, including family and friends, insult or talk down to you?: 1 How often does anyone, including family and friends, physically hurt you?: 1 How often does anyone, including family and friends, scream or curse at you?: 1 Housing Stability: Not At Risk (07/19/2023) Received from [facility] Housing What is your living situation today?: I have a steady place to live Think about the place you live. Do you have problems with any of the following?: None of the above Family History: No family history on file. Medications Prior to Admission: No current facility-administered medications on file prior to encounter. Current Outpatient Medications on File Prior to Encounter Medication Sig Dispense Refill amLODIPine (Norvasc) 10 MG tablet Take 10 mg by mouth daily. Calcium Citrate-Vitamin D (Calcium Citrate + D3) 250-5 MG-MCG tablet Take by mouth every 12 hours. carvedilol (Coreg) 25 MG tablet Take 25 mg by mouth in the morning and 25 mg in the evening. Take with meals. cholestyramine (Questran) 4 g packet Take 1 packet by mouth daily. dapagliflozin (Farxiga) 5 MG Take 5 mg by mouth daily. donepezil (Aricept) 10 MG tablet daily. furosemide (Lasix) 20 MG tablet Take 20 mg by mouth daily. Kerendia 10 MG tablet Take 1 tablet by mouth daily. melatonin 3 MG tablet Take by mouth. mirabegron ER (Myrbetriq) 25 MG 24 hr tablet Take 25 mg by mouth Nightly. Do not crush, chew, or split. pantoprazole (ProtoNix) 40 MG EC tablet Take 40 mg by mouth every morning (before breakfast). Do not crush, chew, or split. Potassium 75 MG tablet Take by mouth. telmisartan (MIcarDIS) 40 MG tablet Take 40 mg by mouth daily. Allergies: Allergies Allergen Reactions Corticosteroids Hallucinations and Other Other reaction(s): Confusion Rofecoxib Swelling Mirabegron Other reaction(s): Confusion Nsaids Other Other reaction(s): Cramps stomach Tramadol Other reaction(s): Mental Status Change Vitals: BP 117/58 Pulse 78 Temp 36.1 C (97 F) (Temporal) Resp 18 Ht 4' 8 (1.422 m) Wt 159 lb (72.1 kg) SpO2 97% BMI 35.65 kg/m BMI Classification: Obese (BMI 30.0-39.9) Pulse Ox: SpO2 Av % Min: 97 % Max: 97 % Supplemental O2: PHYSICAL EXAM: Physical Exam Constitutional: Appearance: She is obese. HENT: Head: Normocephalic. Nose: Nose normal. Mouth/Throat: Mouth: Mucous membranes are moist. Eyes: Extraocular Movements: Extraocular movements intact. Conjunctiva/sclera: Conjunctivae normal. Cardiovascular: Rate and Rhythm: Normal rate and regular rhythm. Pulmonary: Effort: Pulmonary effort is normal. Breath sounds: Normal breath sounds. Abdominal: Palpations: Abdomen is soft. Musculoskeletal: General: Normal range of motion. Cervical back: Normal range of motion. Skin: General: Skin is warm. Neurological: General: No focal deficit present. Mental Status: She is alert and oriented to person, place, and time. Psychiatric: Mood and Affect: Mood normal. Behavior: Behavior normal. DATA: CBC: Recent Labs 01/22/24 1044 WBC 8.9 RBC 3.63* HGB 10.9* HCT 33.6* MCV 92.6 RDW 14.1 PLT 289 BMP: Recent Labs 01/22/24 1044 NA 124* K 4.2 CL 91* CO2 25 BUN 21* CREATININE 0.79 GLUCOSE 115* CALCIUM 8.2* ANIONGAP 8 LIVER PROFILE:No results for input(s): AST, ALT, BILITOT, ALKPHOS, PROT in the last 72 hours. No lab exists for component: LABALBU PT/INR: No results for input(s): PROTIME, INR in the last 72 hours. CARDIAC ENZYMES: No results for input(s): TROPONINI in the last 72 hours. Procalcitonin: No results found for: PROCAL Urine Culture: No results found for this or any previous visit. COVID-19 PCR: No results for input(s): COVID19 in the last 72 hours. I reviewed: [x] laboratory results [x] radiographic results At the time of today's encounter. Pt was advised of the results. Data: (CAT1) Reviewed 3 or more notes from different specialty or health system (each=1). (LOW: 2x CAT1 or independent historian MOD: 3x CAT1 or 1x CAT3 EXTENSIVE: 3x CAT1 and 1x CAT3) Assessment Discussed management with the ED provider and agree with hospitalization. Acute, acute on chronic, unstable/uncontrolled chronic problems/diagnoses: Moderate Hyponatremia UTI Hypocalcemia Stable chronic problems affecting care, new non-acute diagnoses: HTN history of gastric bypass surgery chronic back pain type 2 DM Hx of steroid psychosis Plan As a result of the above findings & factors, the following mgmt was pursued: - pending urine na, uosm, add on sosm - hold home lasix - check TSH - check albumin - NS for fluids - trend bmp q12 - consult nephrology - continue rocephin for now as infection possible contributor hyponatremia - follow urine cultures - hypoglycemia protocol, SSI - hold home sgl2 and glp1 - resume home medications - am labs, replace lytes prn - PT/OT/CM/SW - delirium precautions: increase activity - DVT prophylaxis: enoxaparin and encourage ambulation Complexity: Acute illness or injury posing a threat to life or body function (HIGH). Risk: Admission to hospital-level care was considered or occurred (HIGH). Advance Directive: No Order Anticipated Discharge - Date - 1-3 days - Location - Home - Pending the following - sodium improvement, nephrology consult Total time spent (which include face to face and non face to face encounters) : 55 minutes. Extended Emergency Contact Information Primary Emergency Contact: Artis Love Mobile Relation: Spouse [employer] Madelyn Love : 1945 Primary Care Physician: HUGO JULIO The patient and/or family/surrogate voluntarily agreed to participate in ACP services. Patient s cognitive capacity: intact Code Status: [_x] [FULL CODE - Continue all advanced life support: CPR,intubation,invasive procedures] [_] [DNR-CCA - DO NOT do CPR, intubation] [_] [DNR-AVIATION PROJECT ENGINEER - Comfort care only] [_] DNR form [was/was not] signed Total time spent: 5 minutes were spent discussing the patient's resuscitation status, advance care planning, and end of life care, with patient and/or family/surrogate. Shivam Fitzgerald DO Division of Hospitalist Medicine Acute [facility] [employer] Phone: 01-22-2024 Note Attending History an d Physical Admit Date: 01/22/2024 PCP: HUGO JULIO CHIEF COMPLAINT: lab abnormality Reason for Admission: hyponatremia sent from PCP History Obtained From: patient HISTORY OF PRESENT ILLNESS: Madelyn is a 78 y.o. female with PMH of HTN, history of hyponatremia, gastric bypass surgery, chronic back pain with spinal stimulator, cervical myelopathy, pelvis frx on ASA and type 2 DM2 In ED vitals hemodynamically stable. Labs sig for na 124, glucose 115, UA with bacteria, nitrates and leukocytes. Started on Ceftriaxone and given a fluid bolus. Seen in Triage. is present. Had episode of hyponatremia of 107 in 2021 and req ICU. At that time etiology was believed to be s/2 fluid intake. States she takes lasix. Denies WILDER, changes in vision, or urinary symptoms. States seen a cash application representative in [place] some time ago. Will admit for further evaluation and management. Past Medical History: 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 Dysuria 07/11/2021 Edema of lower extremity 10/17/2021 Esophageal reflux 05/07/2006 Essential hypertension, benign 01/05/2021 Fatigue 11/07/2022 GERD (gastroesophageal reflux disease) Heart valve disease 11/07/2022 History of delirium 11/12/2021 History of fall 07/11/2021 Hypoalbuminemia 12/09/2021 Hypocalcemia 07/12/2021 Hyponatremia 07/09/2021 Intestinal malabsorption 11/07/2022 Iron deficiency anemia 11/07/2022 Midline cystocele 01/21/2020 Morbid obesity (HCC) 11/07/2022 Osteoarthritis 01/05/2021 knees and back knees and back Other diseases of lung, not elsewhere classified 09/24/2007 Psychosis (HCC) 01/04/2021 Secondary hyperparathyroidism (HCC) 07/12/2021 Skin lesion 11/07/2022 Stage 2 chronic kidney disease 05/14/2017 Steatorrhea 11/07/2022 Thrombosed external hemorrhoids 11/07/2022 Type 2 diabetes mellitus without complication, without long-term current use of insulin ([facility]) (HCC) 07/12/2021 Urge incontinence 01/21/2020 Urinary tract infectious disease 11/07/2022 Venous (peripheral) insufficiency 03/06/2005 Vitamin D deficiency 10/30/2021 Past Surgical History: Past Surgical History: Procedure Laterality Date SPINAL CORD STIMULATOR IMPLANT 09/03/2021 Social History: Social History Socioeconomic History Marital status: Spouse name: Not on file Number of children: Not on file Years of education: Not on file Highest education level: Not on file Occupational History Not on file Tobacco Use Smoking status: Never Smokeless tobacco: Not on file Substance and Sexual Activity Alcohol use: Not Currently Drug use: Not on file Sexual activity: Not on file Other Topics Concern Not on file Social History Narrative Not on file Social Determinants of Health Financial Resource Strain: Not on file Food Insecurity: Low Risk (07/19/2023) Received from [facility] [employer] Within the past 12 months, the food you bought just didn't last and you didn't have money to get more.: 3 Within the past 12 months, you worried that your food would run out before you got money to buy more.: 3 Transportation Needs: Not At Risk (07/19/2023) Received from [facility] Transportation Needs In the past 12 months, has lack of reliable transportation kept you from medical appointments, meetings, work or from getting things needed for daily living?: No Physical Activity: Inactive (07/19/2023) Received from [facility] Physical Activity On average, how many days per week do you engage in moderate to strenuous exercise (like a brisk walk)?: 0 days On average, how many minutes do you engage in exercise at this level?: 0 min Stress: Not on file Social Connections: Not on file Intimate Partner Violence: Not At Risk (07/19/2023) Received from [facility] Safety How often does anyone, including family and friends, threaten you with harm?: 1 How often does anyone, including family and friends, insult or talk down to you?: 1 How often does anyone, including family and friends, physically hurt you?: 1 How often does anyone, including family and friends, scream or curse at you?: 1 Housing Stability: Not At Risk (07/19/2023) Received from [facility] Housing What is your living situation today?: I have a steady place to live Think about the place you live. Do you have problems with any of the following?: None of the above Family History: No family history on file. Medications Prior to Admission: No current facility- (more content not included)... [facility] 01-22-2024 History and physical note Attending History and Physical Admit Date: 01/22/2024 PCP: HUGO JULIO CHIEF COMPLAINT: lab abnormality Reason for Admission: hyponatremia sent from PCP History Obtained From: patient HISTORY OF PRESENT ILLNESS: Madelyn is a 78 y.o. female with PMH of HTN, history of hyponatremia, gastric bypass surgery, chronic back pain with spinal stimulator, cervical myelopathy, pelvis frx on ASA and type 2 DM2 In ED vitals hemodynamically stable. Labs sig for na 124, glucose 115, UA with bacteria, nitrates and leukocytes. Started on Ceftriaxone and given a fluid bolus. Seen in Triage. is present. Had episode of hyponatremia of 107 in 2021 and req ICU. At that time etiology was believed to be s/2 fluid intake. States she takes lasix. Denies WILDER, changes in vision, or urinary symptoms. States seen a cash application representative in [place] some time ago. Will admit for further evaluation and management. Past Medical History: 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 Dysuria 07/11/2021 Edema of lower extremity 10/17/2021 Esophageal reflux 05/07/2006 Essential hypertension, benign 01/05/2021 Fatigue 11/07/2022 GERD (gastroesophageal reflux disease) Heart valve disease 11/07/2022 History of delirium 11/12/2021 History of fall 07/11/2021 Hypoalbuminemia 12/09/2021 Hypocalcemia 07/12/2021 Hyponatremia 07/09/2021 Intestinal malabsorption 11/07/2022 Iron deficiency anemia 11/07/2022 Midline cystocele 01/21/2020 Morbid obesity (HCC) 11/07/2022 Osteoarthritis 01/05/2021 knees and back knees and back Other diseases of lung, not elsewhere classified 09/24/2007 Psychosis (HCC) 01/04/2021 Secondary hyperparathyroidism (HCC) 07/12/2021 Skin lesion 11/07/2022 Stage 2 chronic kidney disease 05/14/2017 Steatorrhea 11/07/2022 Thrombosed external hemorrhoids 11/07/2022 Type 2 diabetes mellitus without complication, without long-term current use of insulin ([facility]) (HCC) 07/12/2021 Urge incontinence 01/21/2020 Urinary tract infectious disease 11/07/2022 Venous (peripheral) insufficiency 03/06/2005 Vitamin D deficiency 10/30/2021 Past Surgical History: Past Surgical History: Procedure Laterality Date SPINAL CORD STIMULATOR IMPLANT 09/03/2021 Social History: Social History Socioeconomic History Marital status: Spouse name: Not on file Number of children: Not on file Years of education: Not on file Highest education level: Not on file Occupational History Not on file Tobacco Use Smoking status: Never Smokeless tobacco: Not on file Substance and Sexual Activity Alcohol use: Not Currently Drug use: Not on file Sexual activity: Not on file Other Topics Concern Not on file Social History Narrative Not on file Social Determinants of Health Financial Resource Strain: Not on file Food Insecurity: Low Risk (07/19/2023) Received from [facility] [employer] Within the past 12 months, the food you bought just didn't last and you didn't have money to get more.: 3 Within the past 12 months, you worried that your food would run out before you got money to buy more.: 3 Transportation Needs: Not At Risk (07/19/2023) [facility] [facility] Transportation Needs In the past 12 months, has lack of reliable transportation kept you from medical appointments, meetings, work or from getting things needed for daily living?: No Physical Activity: Inactive (07/19/2023) Received from [facility] Physical Activity On average, how many days per week do you engage in moderate to strenuous exercise (like a brisk walk)?: 0 days On average, how many minutes do you engage in exercise at this level?: 0 min Stress: Not on file Social Connections: Not on file Intimate Partner Violence: Not At Risk (07/19/2023) Received from [facility] Safety How often does anyone, including family and friends, threaten you with harm?: 1 How often does anyone, including family and friends, insult or talk down to you?: 1 How often does anyone, including family and friends, physically hurt you?: 1 How often does anyone, including family and friends, scream or curse at you?: 1 Housing Stability: Not At Risk (07/19/2023) Received from [facility] Housing What is your living situation today?: I have a steady place to live Think about the place you live. Do you have problems with any of the following?: None of the above Family History: No family history on file. Medications Prior to Admission: No current facility-administered medications on file prior to encounter. Current Outpatient Medications on File Prior to Encounter Medication Sig Dispense Refill amLODIPine (Norvasc) 10 MG tablet Take 10 mg by mouth daily. Calcium Citrate-Vitamin D (Calcium Citrate + D3) 250-5 MG-MCG tablet Take by mouth every 12 hours. carvedilol (Coreg) 25 MG tablet Take 25 mg by mouth in the morning and 25 mg in the evening. Take with meals. cholestyramine (Questran) 4 g packet Take 1 packet by mouth daily. dapagliflozin (Farxiga) 5 MG Take 5 mg by mouth daily. donepezil (Aricept) 10 MG tablet daily. furosemide (Lasix) 20 MG tablet Take 20 mg by mouth daily. Kerendia 10 MG tablet Take 1 tablet by mouth daily. melatonin 3 MG tablet Take by mouth. mirabegron ER (Myrbetriq) 25 MG 24 hr tablet Take 25 mg by mouth Nightly. Do not crush, chew, or split. pantoprazole (ProtoNix) 40 MG EC tablet Take 40 mg by mouth every morning (before breakfast). Do not crush, chew, or split. Potassium 75 MG tablet Take by mouth. telmisartan (MIcarDIS) 40 MG tablet Take 40 mg by mouth daily. Allergies: Allergies Allergen Reactions Corticosteroids Hallucinations and Other Other reaction(s): Confusion Rofecoxib Swelling Mirabegron Other reaction(s): Confusion Nsaids Other Other reaction(s): Cramps stomach Tramadol Other reaction(s): Mental Status Change Vitals: BP 117/58 Pulse 78 Temp 36.1 C (97 F) (Temporal) Resp 18 Ht 4' 8 (1.422 m) Wt 159 lb (72.1 kg) SpO2 97% BMI 35.65 kg/m BMI Classification: Obese (BMI 30.0-39.9) Pulse Ox: SpO2 Av % Min: 97 % Max: 97 % Supplemental O2: PHYSICAL EXAM: Physical Exam Constitutional: Appearance: She is obese. HENT: Head: Normocephalic. Nose: Nose normal. Mouth/Throat: Mouth: Mucous membranes are moist. Eyes: Extraocular Movements: Extraocular movements intact. Conjunctiva/sclera: Conjunctivae normal. Cardiovascular: Rate and Rhythm: Normal rate and regular rhythm. Pulmonary: Effort: Pulmonary effort is normal. Breath sounds: Normal breath sounds. Abdominal: Palpations: Abdomen is soft. Musculoskeletal: General: Normal range of motion. Cervical back: Normal range of motion. Skin: General: Skin is warm. Neurological: General: No focal deficit present. Mental Status: She is alert and oriented to person, place, and time. Psychiatric: Mood and Affect: Mood normal. Behavior: Behavior normal. DATA: CBC: Recent Labs 01/22/24 1044 WBC 8.9 RBC 3.63* HGB 10.9* HCT 33.6* MCV 92.6 RDW 14.1 PLT 289 BMP: Recent Labs 01/22/24 1044 NA 124* K 4.2 CL 91* CO2 25 BUN 21* CREATININE 0.79 GLUCOSE 115* CALCIUM 8.2* ANIONGAP 8 LIVER PROFILE:No results for input(s): AST, ALT, BILITOT, ALKPHOS, PROT in the last 72 hours. No lab exists for component: LABALBU PT/INR: No results for input(s): PROTIME, INR in the last 72 hours. CARDIAC ENZYMES: No results for input(s): TROPONINI in the last 72 hours. Procalcitonin: No results found for: PROCAL Urine Culture: No results found for this or any previous visit. COVID-19 PCR: No results for input(s): COVID19 in the last 72 hours. I reviewed: [x] laboratory results [x] radiographic results At the time of today's encounter. Pt was advised of the results. Data: (CAT1) Reviewed 3 or more notes from different specialty or health system (each=1). (LOW: 2x CAT1 or independent historian MOD: 3x CAT1 or 1x CAT3 EXTENSIVE: 3x CAT1 and 1x CAT3) Assessment Discussed management with the ED provider and agree with hospitalization. Acute, acute on chronic, unstable/uncontrolled chronic problems/diagnoses: Moderate Hyponatremia UTI Hypocalcemia Stable chronic problems affecting care, new non-acute diagnoses: HTN history of gastric bypass surgery chronic back pain type 2 DM Hx of steroid psychosis Plan As a result of the above findings & factors, the following mgmt was pursued: - pending urine na, uosm, add on sosm - hold home lasix - check TSH - check albumin - NS for fluids - trend bmp q12 - consult nephrology - continue rocephin for now as infection possible contributor hyponatremia - follow urine cultures - hypoglycemia protocol, SSI - hold home sgl2 and glp1 - resume home medications - am labs, replace lytes prn - PT/OT/CM/SW - delirium precautions: increase activity - DVT prophylaxis: enoxaparin and encourage ambulation Complexity: Acute illness or injury posing a threat to life or body function (HIGH). Risk: Admission to hospital-level care was considered or occurred (HIGH). Advance Directive: No Order Anticipated Discharge - Date - 1-3 days - Location - Home - Pending the following - sodium improvement, nephrology consult Total time spent (which include face to face and non face to face encounters) : 55 minutes. Extended Emergency Contact Information Primary Emergency Contact: Artis Love Mobile Relation: Spouse [employer] Madelyn Love : 1945 Primary Care Physician: HUGO JULIO The patient and/or family/surrogate voluntarily agreed to participate in ACP services. Patient s cognitive capacity: intact Code Status: [_x] [FULL CODE - Continue all advanced life support: CPR,intubation,invasive procedures] [_] [DNR-CCA - DO NOT do CPR, intubation] [_] [DNR-AVIATION PROJECT ENGINEER - Comfort care only] [_] DNR form [was/was not] signed Total time spent: 5 minutes were spent discussing the patient's resuscitation status, advance care planning, and end of life care, with patient and/or family/surrogate. Shivam Fitzgerald DO Division of Hospitalist Medicine [facility] documented in this encounter [facility] 01-22-2024 Physician Emergency department Note Emergency Department Encounter [facility] EMERGENCY DEPT Patient: Madelyn Love : 1945 Date of Evaluation: 01/22/2024 ED Supervising Physician: Ja De La Cruz MD I personally evaluated Madelyn Love and made/approved the management plan and take responsibility for the patient management. This will serve as my Supervisory note and shared attestation. I did perform a substantive portion of the visit including all aspects of the Medical Decision Making. I wore appropriate PPE for the entirety of this encounter. In brief, Madelyn Love is a 78 y.o. that presents to the emergency department for evaluation of low sodium. Patient had lab work performed by her primary care physician, Dr. Julio. Reportedly her sodium levels have been trending down recently. Patient has no complaints. Patient has had issues with hyponatremia in the past. Unsure of the etiology. Focused exam: Awake and alert, no appear distress. Resting comfortably in the chair. Skin is warm, dry, intact. Heart lung sounds are normal with normal heart rate and respiratory rate. Normal respiratory effort. Abdomen is soft, nondistended, nontender. Remedies unremarkable. Brief ED course/MDM: Patient presents emergency room for evaluation of hyponatremia found on outpatient workup by her primary care physician. Reportedly sodium levels have been trending down recently. CBC, BMP, mag, Phos, and urinalysis obtained in the ED. Hyponatremia confirmed at 124 with blood glucose of 115. Chloride also depressed at 91. No other significant arrangements on labs. Urinalysis does indicate urinary tract infection patient started on IV Rocephin here in the ED pending urine cultures. Urine osmolarity and urine sodium ordered and are pending. Patient will be admitted for continued evaluation and monitoring. Diagnostics interpreted by me: none I personally discussed the patient's management with other clinicians: none All diagnostic, treatment, and disposition decisions were made by myself in conjunction with the NICHOLAS. For all further details of the patient's emergency department visit, please see their documentation. (Comment: Please note this report has been produced using speech recognition software and may contain errors related to that system including errors in grammar, punctuation, and spelling, as well as words and phrases that may be inappropriate. If there are any questions or concerns please feel free to contact the dictating provider for clarification.) Ja De La Cruz MD [facility] [place] Ja De La Cruz MD 01/22/24 [id number] [employer] Phone: 12-03-2023 Note ORIGINAL EXAMINATION: CT OF THE PELVIS WITHOUT CONTRAST 12/03/2023 11:12 am TECHNIQUE: CT of the pelvis was performed without the administration of intravenous contrast. Multiplanar reformatted images are provided for review. Adjustment of mA and/or kV according to patient size was utilized. Automated exposure control, iterative reconstruction, and/or weight based adjustment of the mA/kV was utilized to reduce the radiation dose to as low as reasonably achievable. COMPARISON: None. HISTORY ORDERING SYSTEM PROVIDED HISTORY: Reason for Exam: PELVIC AND PERINEAL PAIN FINDINGS: Extraluminal gas is seen in the extraperitoneal compartment of the pelvis, most pronounced near the right anterolateral margin of the bladder. No air is seen within the bladder. There is no evidence of air tracking to the perineum. Surgical changes seen in the small bowel. There are surgical changes in the visualized lower lumbar spine. There is a fracture near the junction of the anterior column of the acetabulum with the left superior pubic ramus. There is also a mildly comminuted fracture of the left inferior pubic ramus. Both of these fractures appear partially remodeled. Nondisplaced left sacral fracture seen. Fluid seen in the presacral space. There are some hemorrhagic products in the left the obturator internus. Atherosclerotic vascular calcifications seen. There is a partially visualized neurostimulator device. There is surgical change across the right sacroiliac joint. IMPRESSION: 1. Extraluminal gas is seen in the extraperitoneal compartment of the pelvis, most pronounced near the right anterolateral margin of the bladder. It is unclear if the air is within the bladder wall or adjacent to the bladder wall. There is no evidence of air tracking to the perineum. It is unclear if this air is related to trauma, infection or other cause. Clinical correlation needed. CT abdomen and pelvis with contrast advised 2. There are subacute but incompletely remodeled fractures of the left superior and inferior pubic rami. There is also a nondisplaced left sacral fracture. Presacral fluid noted. 3. Edema/hemorrhage in the left obturator internus 4. Other incidental findings, as above. Findings were discussed with KATHY MCCARTY at 11:49 am on 12/03/2023. Interpreted by: Samuel Ervin MD Preliminary Report By: Samuel Ervin MD Electronically signed By Samuel Ervin MD Dictated Date: 12/03/2023 11:19:52 AM Prelim Date: 12/03/2023 11:52:39 AM Sign Date: 12/03/2023 11:52:39 AM Ordering Provider: KATHY MCCARTY [facility] 11-20-2023 History of Present illness Narrative Subjective Patient ID: Madelyn Love is a 78 y.o. female who presents for No chief complaint on file.. HPI 12 yr fuv rygb Review of Systems CONSTITUTIONAL: Chills No. Fatigue No. Fever No. CARDIOLOGY: Negative for dizziness, chest pain, palpitations, shortness of breath. RESPIRATORY: Sleep Apnea No. Negative for chest congestion, cough, wheezing. GASTROENTEROLOGY: Food Intolerance No. Abdominal pain No. Acid reflux No. Black stools No. Constipation No. Diarrhea No. Loss of appetite no. Nausea No. Vomiting No. UROLOGY: Negative for dysuria, urinary urgency, kidney stones. PSYCHOLOGY: Negative for depression, anxiety, high stress level. Objective Physical Exam Assessment/Plan Sridevi Hoover LPN 11/12/23 4:26 PM Images from the original note were not included. Subjective Patient ID: Madelyn Love is a 78 y.o. female who presents for Follow-up (12 YR FUV RYGB). LUCIA Watson is here for her 11 year follow up after a RYGB. She tells me that she recently pulled her left hip muscle and is having a hard time walking. She is in a wheelchair today. She tells me in the morning she is having loose stools. She has had 2 rectal prolapse repairs. She is still not interested in having her hiatal hernia repaired. She takes pantoprazole daily for her reflux. She was taking ozempic in the spring prescribed by her PCP in [place]. Her PCP in [place] would not refill it due to her bariatric surgery. She does not feel hunger. It takes about 1.5 cups before feeling full. She will occasionally snack on cheese or pretzels. She is going to therapy 3 times per week. She is currently taking the barifusion MVI and calcium citrate with vitamin D TID. She had labwork for this appointment, which we reviewed. Objective Physical Exam Constitutional: Appearance: Normal appearance. Eyes: Pupils: Pupils are equal, round, and reactive to light. Cardiovascular: Rate and Rhythm: Normal rate. Pulmonary: Effort: Pulmonary effort is normal. Abdominal: Palpations: Abdomen is soft. Musculoskeletal: General: Normal range of motion. Skin: General: Skin is warm and dry. Neurological: General: No focal deficit present. Mental Status: She is alert and oriented to person, place, and time. Psychiatric: Mood and Affect: Mood normal. Assessment/Plan Problem List Items Addressed This Visit ICD-10-CM GERD (gastroesophageal reflux disease) K21.9 Hiatal hernia K44.9 History of Shani-en-Y gastric bypass Z98.84 Hyperparathyroidism (Multi) E21.3 Relevant Orders Parathyroid Hormone, Intact Intestinal malabsorption (HHS-HCC) - Primary K90.9 Relevant Orders CBC and Auto Differential Comprehensive Metabolic Panel Copper, Blood Ferritin Folate Iron and TIBC Vitamin B1, Whole Blood Parathyroid Hormone, Intact Vitamin B12 Vitamin D 25-Hydroxy,Total (for eval of Vitamin D levels) Zinc, Serum or Plasma Vitamin D deficiency E55.9 Relevant Orders Vitamin D 25-Hydroxy,Total (for eval of Vitamin D levels) Vitamin B12 deficiency E53.8 Relevant Orders Vitamin B12 I reminded Madelyn that a RYGB is not compatible with ASA or NSAID use. We discussed that semaglutide is safe to take with a history of bariatric surgery. We discussed that she might like to follow up with her Correctional Case Records Supervisor for prescribing so that he can also manage her A1C. We discussed ways for Madelyn to increase her salt intake without increasing her snacking. She will continue her current supplementation. She will follow up in 1 year with repeat labwork. NATE Shah 11/21/23 9:17 AM documented in this encounter [facility] Work Phone: 11-17-2023 History of Present illness Narrative Subjective Patient ID: Madelyn Love is a 78 y.o. female who presents for Diarrhea (Patient is taking cholestyramine powder, no longer taking the MiraLAX. Patient has recently taken samples of xifaxan from PCP for 5 days worth which did not help). Diarrhea Ligia is seen today acutely. Is known to me from prior GI workup. Has had intermittent bacterial overgrowth in her bowel. Typically responds to antibiotics. 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 She was given a 5-day prescription of Xifaxan from family doctor which is ineffective. She admits she is having 4-6 loose stools every morning. She is currently taking cholestyramine for bile salt induced diarrhea 1 packet nightly. She states typical morning she will have a semiformed stool then liquid bowel movement. She had been tearing MiraLAX along with this. I did have her stop MiraLAX last Friday and she states she is improved the first stool is now formed but they will have multiple semiformed stools throughout the morning which typically runs around 10 AM. She denies any rectal bleeding. Last colonoscopy was completed in 2019. She did have rectal prolapse surgery performed while wintering in [facility]. Surgery was performed by colorectal surgeon did not include rectal lift procedure. She admits she has had some diarrhea before that it does not seem to be appreciably better or worse since that surgery she denies any hang incontinence. No rectal bleeding no weight loss Review of Systems Constitutional: Negative. HENT: Negative. Eyes: Negative. Respiratory: Negative. Cardiovascular: Negative. Gastrointestinal: Positive for diarrhea. Endocrine: Negative. Genitourinary: Negative. Neurological: Negative. Hematological: Negative. Objective Physical Exam Vitals and nursing note reviewed. Constitutional: Appearance: Normal appearance. HENT: Head: Normocephalic. Mouth/Throat: Mouth: Mucous membranes are moist. Pharynx: Oropharynx is clear. Eyes: Conjunctiva/sclera: Conjunctivae normal. Pupils: Pupils are equal, round, and reactive to light. Cardiovascular: Rate and Rhythm: Normal rate and regular rhythm. Pulses: Normal pulses. Heart sounds: Normal heart sounds. Pulmonary: Effort: Pulmonary effort is normal. Breath sounds: Normal breath sounds. Abdominal: General: Abdomen is flat. Bowel sounds are normal. Palpations: Abdomen is soft. Musculoskeletal: General: Normal range of motion. Cervical back: Normal range of motion and neck supple. Skin: General: Skin is warm and dry. Neurological: General: No focal deficit present. Mental Status: She is alert and oriented to person, place, and time. Psychiatric: Behavior: Behavior normal. Assessment/Plan Diagnoses and all orders for this visit: Bile salt-induced diarrhea (HHS-HCC) - Stool Pathogen Panel, PCR; Future - Calprotectin, Fecal; Future - C. difficile, PCR; Future Irritable bowel syndrome with diarrhea - Stool Pathogen Panel, PCR; Future - Calprotectin, Fecal; Future - C. difficile, PCR; Future Campylobacter enteritis - Stool Pathogen Panel, PCR; Future Will attempt to get Xifaxan for her through [employer]. Change cholestyramine to 1/2 pack twice daily. Continue to hold MiraLAX. Marilia Stubbs DO 11/17/23 4:47 PM documented in this encounter [facility] Work Phone: 05-15-2023 History of Present illness Narrative Subjective Patient ID: Madelyn Love is a 77 y.o. female who presents for Irritable Bowel Syndrome (Patient is doing well having soft formed stools. ). HPI patient is seen today in follow-up. She is doing well functionally. Had fall while in [place] between [facility] and [facility]. She states to having increased imbalance. Recent and neurologic workup finding of irritated nurse is to go back to see neurosurgeon, at this point no surgery. She is involved in physical therapy for balance and may go on Neurontin. From a GI point of view her bowels are working beautifully with her cholestyramine she is having no diarrhea is having occasional constipation but no accidents. Overall is quite happy Review of Systems Objective Physical Exam Vitals and nursing note reviewed. Constitutional: Appearance: Normal appearance. HENT: Head: Normocephalic. Mouth/Throat: Mouth: Mucous membranes are moist. Pharynx: Oropharynx is clear. Eyes: Conjunctiva/sclera: Conjunctivae normal. Pupils: Pupils are equal, round, and reactive to light. Cardiovascular: Pulses: Normal pulses. Heart sounds: Normal heart sounds. Pulmonary: Effort: Pulmonary effort is normal. Breath sounds: Normal breath sounds. Abdominal: General: Abdomen is flat. Bowel sounds are normal. Palpations: Abdomen is soft. Musculoskeletal: Cervical back: Normal range of motion and neck supple. Skin: General: Skin is warm and dry. Neurological: General: No focal deficit present. Mental Status: She is alert and oriented to person, place, and time. Psychiatric: Behavior: Behavior normal. Assessment/Plan Problem List Items Addressed This Visit ICD-10-CM History of Shani-en-Y gastric bypass - Primary Z98.84 Bile salt-induced diarrhea K90.89 Irritable bowel syndrome with diarrhea K58.0 Continue cholestyramine follow-up in 6 to 12 months Marilia Stubbs DO 05/15/23 5:22 PM documented in this encounter [facility] Work Phone: 11-07-2022 History of Present illness Narrative Images from the original note were not included. [facility] [address] [place] [address] Dept: [phone] Dept Loc: [phone] Visit type: [facility] Follow Up Visit Reason for Visit: Memory Loss Visit Date: 11/07/2022 Assessment and Plan 1. History of delirium -I do not feel that she has a major or minor neurocognitive disorder at this time. Her cognitive difficulties in the past were focused around delirium episodes in the hospital (one was due to steroids and another to severe hyponatremia). She has been in relatively good health since last October and it does not seem that she has had any further delirium episodes -Discussed with patient and her that I do not feel she needs to remain on the aricept and that it is possible it is contributing to the diarrhea. Patient is interested in weaning off the medication. Advised if she wishes to come off the medication she can reduce dose to 5 mg (cut the 10 mg pill in half) for two weeks and then stopped. Otherwise, she can speak with her neurologist about stopping vs continuing on the aricept. The medication could be prescribed again if she noticed cognitive decline once coming off the aricept. -Can follow up with geriatrics on a prn basis. Follow up if symptoms worsen or fail to improve. Subjective HPI: Madelyn Love is a 77 y.o. female with past medical history o hypertension, incontinence, osteoarthritis, IBS, diabetes, iron deficiency anemia, gastric bypass and malabsorption, SIBO, who presents to the [facility] for a follow-up visit. The patient is known to me. Chart Review Chart Review: She had cognitive impairment due to delirium in early 2021. Cognition gradually improved back into the normal range vs MCI. Do not suspect dementia in October 2021. Scored a 26/30. Asked to follow up in a year History obtained from caregiver(s): -she is doing well. -her spinal stimulator continues to control her chronic pain -having some issues with IBS. Having a lot of soft bowel movements about every three days. This problem started around july or August 2021. -memory is pretty good. -neurologist did place her on aricept last summer. -has some difficulty putting appointments in her smart phone -Mood: Good -Appetite: good -Sleep: Sleeps well. History obtained from patient: -memory is doing very well. No complaints. -Mood: Fine. No depression. -Appetite: Fine -Sleep: Good -No hallucinations -Has been dealing with diarrhea off and on for several years. Questran is helping. Reviewed progress notes completed by ROSALIA TOMPKINS) and social work. Allergies Allergen Reactions Corticosteroids Hallucinations and Other Other reaction(s): Confusion Rofecoxib Swelling Mirabegron Other reaction(s): Confusion Nsaids Other Other reaction(s): Cramps stomach Tramadol Other reaction(s): Mental Status Change Current Outpatient Medications Medication Sig Dispense Refill amLODIPine (Norvasc) 10 MG tablet Take 10 mg by mouth daily. Calcium Citrate-Vitamin D (Calcium Citrate + D3) 250-5 MG-MCG tablet Take by mouth every 12 hours. carvedilol (Coreg) 25 MG tablet Take 25 mg by mouth in the morning and 25 mg in the evening. Take with meals. cholestyramine (Questran) 4 g packet Take 1 packet by mouth daily. dapagliflozin (Farxiga) 5 MG Take 5 mg by mouth daily. donepezil (Aricept) 10 MG tablet daily. furosemide (Lasix) 20 MG tablet Take 20 mg by mouth daily. Kerendia 10 MG tablet Take 1 tablet by mouth daily. melatonin 3 MG tablet Take by mouth. mirabegron ER (Myrbetriq) 25 MG 24 hr tablet Take 25 mg by mouth Nightly. Do not crush, chew, or split. pantoprazole (ProtoNix) 40 MG EC tablet Take 40 mg by mouth every morning (before breakfast). Do not crush, chew, or split. Potassium 75 MG tablet Take by mouth. telmisartan (MIcarDIS) 40 MG tablet Take 40 mg by mouth daily. No current facility-administered medications for this visit. 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 Dysuria 07/11/2021 Edema of lower extremity 10/17/2021 Esophageal reflux 05/07/2006 Essential hypertension, benign 01/05/2021 Fatigue 11/07/2022 GERD (gastroesophageal reflux disease) Heart valve disease 11/07/2022 History of delirium 11/12/2021 History of fall 07/11/2021 Hypoalbuminemia 12/09/2021 Hypocalcemia 07/12/2021 Hyponatremia 07/09/2021 Intestinal malabsorption 11/07/2022 Iron deficiency anemia 11/07/2022 Midline cystocele 01/21/2020 Morbid obesity (HCC) 11/07/2022 Osteoarthritis 01/05/2021 knees and back knees and back Other diseases of lung, not elsewhere classified 09/24/2007 Psychosis (HCC) 01/04/2021 Secondary hyperparathyroidism (HCC) 07/12/2021 Skin lesion 11/07/2022 Stage 2 chronic kidney disease 05/14/2017 Steatorrhea 11/07/2022 Thrombosed external hemorrhoids 11/07/2022 Type 2 diabetes mellitus without complication, without long-term current use of insulin ([facility]/HCC) (HCC) 07/12/2021 Urge incontinence 01/21/2020 Urinary tract infectious disease 11/07/2022 Venous (peripheral) insufficiency 03/06/2005 Vitamin D deficiency 10/30/2021 Social History Tobacco Use Smoking status: Never Smokeless tobacco: Not on file Substance Use Topics Alcohol use: Not Currently Past Surgical History: Procedure Laterality Date SPINAL CORD STIMULATOR IMPLANT 09/03/2021 No family history on file. No family status information on file. Objective Vitals: 11/07/22 1505 BP: (!) 160/75 BP Location: Right arm Patient Position: Sitting Pulse: 68 Weight: 150 lb 3.2 oz (68.1 kg) Wt Readings from Last 3 Encounters: 11/07/22 150 lb 3.2 oz (68.1 kg) 11/12/21 137 lb 3.2 oz (62.2 kg) 08/13/21 136 lb (61.7 kg) Physical Exam Constitutional: General: She is not in acute distress. Appearance: She is not ill-appearing. HENT: Head: Normocephalic and atraumatic. Cardiovascular: Rate and Rhythm: Normal rate and regular rhythm. Heart sounds: Murmur heard. No friction rub. No gallop. Pulmonary: Effort: Pulmonary effort is normal. Breath sounds: Normal breath sounds. No decreased breath sounds, wheezing, rhonchi or rales. Musculoskeletal: Right lower leg: No edema. Left lower leg: No edema. Neurological: Mental Status: She is alert and oriented to person, place, and time. Psychiatric: Attention and Perception: Attention normal. Mood and Affect: Mood and affect normal. Speech: Speech normal. Behavior: Behavior normal. Behavior is cooperative. Thought Content: Thought content normal. Cognition and Memory: Cognition and memory normal. Data Reviewed and Summarized Testing: The following tests were performed at today's visit and scanned in to thechart: MoCA score: 28/30, MIS score: 15/15 Clock drawing score: 5/7 PHQ-9 score: 0 I independently reviewed the Nadeem Cognitive Assessment from 11/07/22. Test scanned in to the chart. I spent total time of 47 minutes face to face with the patient and/or family discussing the diagnosis and importance of compliance with the treatment plan as well as documenting on the day of the visit. In addition, that total time includes the following: -Reviewing previous notes, -Reviewing previous cognitive tests, -Obtaining and/or reviewing separately obtained history, -Communicating results to the patient/family/caregiver, -Counseling/educating the patient/family/caregiver, -Documenting clinical information in the patients electronic record, -Coordination of care for the patient, and -Performing a medically appropriate exam and/or evaluation Review of Systems Constitutional: Negative for appetite change, fatigue, fever and unexpected weight change. HENT: Negative for dental problem, hearing loss and trouble swallowing. Eyes: Negative for visual disturbance. Respiratory: Negative for cough and shortness of breath. Cardiovascular: Negative for leg swelling. Gastrointestinal: Negative for constipation and diarrhea. Genitourinary: Negative for difficulty urinating and dysuria. Musculoskeletal: Positive for arthralgias. Negative for back pain and gait problem. Neurological: Negative for tremors, speech difficulty and weakness. Psychiatric/Behavioral: Negative for agitation, confusion, dysphoric mood, hallucinations and sleep disturbance. The patient is not nervous/anxious. Senior Services/Geriatrics Social History Present at visit: patient, spouse- KATI Marital status: Children: 2 daughters (in [place]) Living arrangement: with spouse, own home >>11/12/21 same >>11/07/22 same Household safety problems: fell twice in Oct, Nov >>11/12/21 none >>11/07/22 none Wandering potential: had to get security to help him find her, she didn't call spouse, was walking out in parking lot at mall (Nov) >>11/12/21 none Pets: No Guns in the home: No Elder abuse: No/denied concerns. 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 Activities: meet friends for lunch, socially active in taoism, reads >>11/12/21 same >>11/07/22 goes to [place] for 5 months, swims and does water therapy there, walks there, out to eat Exercise: none Finances: not reviewed Healthcare Power of Dietary Aide Cook: Yes, spouse Financial Power of Dietary Aide Cook: Yes, spouse Living Will: Yes Guardian:No Code Status: Not in place Primary Caregiver: spouse Current care plan/supervision: spouse with patient most of the time, can leave her alone >>11/12/21 same Community resources: Yes: Cleaning Service every 2 weeks >>11/12/21 same >>11/07/22 same Caregiver stressors: spouse feel increased stress, worrying about patient is biggest stressor, worrying about future, frustration about not being able to do things he used to >>11/12/21 spouse's stress has reduced as she has gotten better >>11/07/22 denies Goals for care: evaluate memory, level of care As a Caregiver, What Matters Most to You: patient's quality of life, controlling pain Patient was seen as inpatient consult when in hospital. Had two different times of delirium while in the hospital. Has had times of confusion, especially associated with those times of delirium. Closer to baseline at this time but still needing some help with finances, medications, shopping. >>11/12/21 Patient's memory and physical ability is much better since last visit. She had a surgery on her back which improved her pain dramatically and her delirium from her hospital stay has resolved. Spouse has noticed much improvement in her memory and her physical function. No resources given today. >>11/07/22 Patient doing well functionally; spouse not seeing any memory issues. Patient has taken over doing all her activities independently. Spouse has no concerns. No resources given today. Functional Status (I: Independent, A: Assisted, D: Dependent) ADLs I A D Notes Bathing [x] [] [] No issues, spouse makes sure he is there >>11/12/21 no issues with personal care >>11/07/22 same Dressing [x] [] [] No issues Toileting [x] [] [] No issues Transfers [x] [] [] With some difficulty Feeding [x] [] [] No issues Ambulation [] [] [] Assistive devices: Grab Bars, Shower Chair and Walker IADLs I A D Telephone [x] [] [] Can call, answer phone, patient will call to set up appointments, spouse has to help her or she may not always write down >>11/12/21 still needs some reminders, gets confused with dates >>11/07/22 no issues using phone, puts dates into phone calendar Transportation [x] [] [] Driving safety concerns: spouse does most of driving, spouse often goes over directions with her before she is driving, he put GPS. One incident where she forgot to meet spouse for breakfast, went to do a bunch of errands and then forgot to meet him, driving ability is fine >>11/12/21 no issues, spouse has [employer] to track her >>11/07/22 still driving, not getting lost, no issues Shopping [x] [] [] Spouse shops, patient helps with list >>11/12/21 patient shopping more often >>11/07/22 patient and spouse shops, patient makes list Meal prep [] [x] [] Eats out a lot, eats leftovers, not really cooking, was forgetting ingredients last summer >>11/12/21 eats out a lot, cooks together with spouse, more involved >>11/07/22 some cooking, go out to eat frequently, may forget how to make things, never liked to cook Housework [] [x] [] Cleaning service, does laundry >>11/12/21 same >>11/07/22 same Medications [x] [] [] Uses pill box, spouse sets up pill box with patient, wouldn't be able to set up on own, started doing that last summer, spouse has to remind her to take them >>11/12/21 still using pill box, sets up together, spouse monitoring, she doesn't need reminders now >>11/07/22 uses pill box, sets up own pill box, not forgetting Finances [] [x] [] Spouse handles, started when he retired, he doesn't feel that patient could manage it now. Patient can carry shahid/credit cards, did recently give an inappropriate tip. >>11/12/21 same >>11/07/22 same documented in this encounter [facility] 11-07-2022 Instructions Ca Naidu MD - 11/07/2022 2:45 PM EDT If you wish to come off the aricept, would recommend taking half a pill ( 5 mg) for 2 weeks to wean off the medication. Then may stop. Please call our office if you notice any trouble weaning off the medication. documented in this encounter [facility] 07-18-2022 Note HNO ID: [id number] Author: Lynne Key MD Service: ? Author Type: Physician Type: Progress Notes Filed: 07/18/2022 1:18 PM Note Text: SMALL BOWEL DISEASES AND NUTRITION FOLLOW-UP VIDEO VISIT Date of direct communication: 07/18/2022 [x] Patient consented to video visit on FaceTime because she was unable to log onto the [employer] platform. Assessment IMPRESSION: Madelyn Love is a 76 year old female s/p RYGB who did well for many years until around the time of cystocele and rectocele repair who developed chronic diarrhea causing hyponatremia and fecal incontinence. She has seen significant symptom improvement after starting bile salt binders, Citrucel and diet/lifestyle modification. She has mild micronutrient deficiencies which should be corrected with oral supplementation. DIAGNOSTIC ISSUES AND PLAN: #) Chronic diarrhea -Improved -Continue Citrucel 2-->3 or 4 capsules twice daily -Continue cholestyramine once daily. -Continue magnesium oxide. Can switch to Mg Plus Protein if she would like to in the future as this is associated with less diarrhea. 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 Can stop Centrum, vitamin C, iron, and vitamin B12. -Recheck micronutrient levels in ~6 months to ensure adequate replacement. #) Hypertension -Recommend that she bring her blood pressure cuff to her PCP at the next visit and compare to see if it is measuring accurately FOLLOW-UP: 1 year or sooner if needed Lynne Key MD 07/18/2022 [employer] [place] PRIMARY PROBLEM: Chronic diarrhea, fecal incontinence after RYBG INTERVAL HISTORY: -Nutrition labs notable for mild copper and zinc deficiency -Overall doing much better since her last appt -Good BM in the morning, maybe one more in the evening. Soft, sometimes loose. -No diarrhea -Taking cholestyramine just once a day -Taking the citrucel twice a day - helpful -Couldn't get Mg Plus Protein -No bloating, but some distention after eating -Walking at least 1/2 mile daily -Currently taking centrum, iron, vitamin C, vitamin B12, probiotic -Blood pressure up to 150/70, HR 60's CURRENT NUTRITION SUPPORT: None Weight history: Last 5 Encounter Wt Readings: Date: Wt: 134 lbs (stable) 06/07/2022 63.7 kg (140 lb 6.4 oz) 04/29/2022 62.8 kg (138 lb 6.4 oz) 02/28/2022 63 kg (139 lb) 02/25/2020 60.8 kg (134 lb) 01/21/2020 60.8 kg (134 lb) CURRENT MEDICATIONS: Current Outpatient Medications Medication Sig Dispense Refill magnesium oxide-magnesium amino acid chelate (MG-PLUS) 133 mg tablet Take 2 tablets by mouth daily at bedtime. 100 tablet 4 acetaminophen (TYLENOL) 500 mg tablet Take by mouth. azelastine (ASTELIN, ASTEPRO) 0.1% nasal spray Use in the nose q 12 HR. azelastine (ASTELIN, ASTEPRO) 0.1% nasal spray USE 2 (TWO) SPRAY TWICE DAILY TO PREVENT AND TREAT ALLERGY RHINITS (ANTIHISTAMINE) Bacillus subtilis-inulin 1.5 billion cell-1 gram chew Take by mouth. BENZONATATE ORAL Zonatuss takes 2-3 Not-Taking ONETOUCH ULTRA TEST test strip once daily. chlorpheniramine (CHLORTRIMETON) 4 mg tablet Take by mouth. FLOWFLEX COVID-19 AG HOME TEST kit as directed. Cranberry 500 mg cap Take by mouth. diclofenac (VOLTAREN) 1 % topical gel Diclofenac Sodium 1 % External Gel Quantity: 100 Refills: 0 Ordered: 26-Jun-2019 DO Start : 15-Jun-2019 Active empagliflozin (JARDIANCE) 10 mg tablet Take by mouth. fexofenadine (ZAINAB) 60 mg tablet Take by mouth q 12 HR. finerenone (KERENDIA) 10 mg tablet Take by mouth. fluticasone (FLONASE) 50 mcg/actuation nasal spray Use in the nose q 24 HR. Tqrkcqvpb-Ivkhuhzaawwmei-Xljn 3-2.5 % (7 gram) kit by RECTAL route. Ipratropium Anthon (ATROVENT) 21 mcg (0.03 %) nasal spray Use in the nose. ONE TOUCH DELICA 33 gauge USE ONCE A DAY DIRECTED L. acidophilus/Bifid. animalis 32 billion cell cap Take by mouth. Milk Thistle 150 mg cap Take 140 mg by mouth. montelukast (SINGULAIR) 10 mg tablet Take by mouth. GAVILYTE-G 236-22.74-6.74 -5.86 gram suspension PLEASE SEE ATTACHED FOR DETAILED DIRECTIONS Polypodium Leucotomos Extract 240 mg cap Take 1 capsule by mouth q 24 HR. Psyllium Husk-Sucrose 3.4 gram/7 gram powd Take by mouth. rifAXIMin (XIFAXAN) 550 mg tablet Take 550 mg by mouth. WHEAT DEXTRIN ORAL Take by mouth. colestipol (COLESTID) 1 gram tablet Take 1 g by mouth twice daily. FARXIGA 5 mg tablet Take 5 mg by mouth once daily. donepezil (ARICEPT) 10 mg tablet 10 MG ORALLY DAILY BEGIN AFTER COMPLETING ONE MONTH OF TREATMENT OF DONEPEZIL 5MG NIGHTLY ferrous sulfate 325 mg (65 mg iron) tablet Take 1 tablet by mouth once daily. melatonin 3 mg tablet Take 6 mg by mouth once daily. milk thist seed ext/milk thist (MILK THISTLE EXTRACT ORAL) Take by manuel (more content not included)... [facility] 07-18-2022 History of Present illness Narrative Images from the original note were not included. SMALL BOWEL DISEASES AND NUTRITION FOLLOW-UP VIDEO VISIT Date of direct communication: 07/18/2022 [x] Patient consented to video visit on FaceTime because she was unable to log onto the Zoom platform. Assessment IMPRESSION: Madelyn Love is a 76 year old female s/p RYGB who did well for many years until around the time of cystocele and rectocele repair who developed chronic diarrhea causing hyponatremia and fecal incontinence. She has seen significant symptom improvement after starting bile salt binders, Citrucel and diet/lifestyle modification. She has mild micronutrient deficiencies which should be corrected with oral supplementation. DIAGNOSTIC ISSUES AND PLAN: #) Chronic diarrhea -Improved -Continue Citrucel 2-->3 or 4 capsules twice daily -Continue cholestyramine once daily. -Continue magnesium oxide. Can switch to Mg Plus Protein if she would like to in the future as this is associated with less diarrhea. 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 Can stop Centrum, vitamin C, iron, and vitamin B12. -Recheck micronutrient levels in ~6 months to ensure adequate replacement. #) Hypertension -Recommend that she bring her blood pressure cuff to her PCP at the next visit and compare to see if it is measuring accurately FOLLOW-UP: 1 year or sooner if needed Lynne Key MD 07/18/2022 [employer], [facility] [place] PRIMARY PROBLEM: Chronic diarrhea, fecal incontinence after RYBG INTERVAL HISTORY: -Nutrition labs notable for mild copper and zinc deficiency -Overall doing much better since her last appt -Good BM in the morning, maybe one more in the evening. Soft, sometimes loose. -No diarrhea -Taking cholestyramine just once a day -Taking the citrucel twice a day - helpful -Couldn't get Mg Plus Protein -No bloating, but some distention after eating -Walking at least 1/2 mile daily -Currently taking centrum, iron, vitamin C, vitamin B12, probiotic -Blood pressure up to 150/70, HR 60's CURRENT NUTRITION SUPPORT: None Weight history: Last 5 Encounter Wt Readings: Date: Wt: 134 lbs (stable) 06/07/2022 63.7 kg (140 lb 6.4 oz) 04/29/2022 62.8 kg (138 lb 6.4 oz) 02/28/2022 63 kg (139 lb) 02/25/2020 60.8 kg (134 lb) 01/21/2020 60.8 kg (134 lb) CURRENT MEDICATIONS: Current Outpatient Medications Medication Sig Dispense Refill magnesium oxide-magnesium amino acid chelate (MG-PLUS) 133 mg tablet Take 2 tablets by mouth daily at bedtime. 100 tablet 4 acetaminophen (TYLENOL) 500 mg tablet Take by mouth. azelastine (ASTELIN, ASTEPRO) 0.1% nasal spray Use in the nose q 12 HR. azelastine (ASTELIN, ASTEPRO) 0.1% nasal spray USE 2 (TWO) SPRAY TWICE DAILY TO PREVENT AND TREAT ALLERGY RHINITS (ANTIHISTAMINE) Bacillus subtilis-inulin 1.5 billion cell-1 gram chew Take by mouth. BENZONATATE ORAL Zonatuss takes 2-3 Not-Taking ONETOUCH ULTRA TEST test strip once daily. chlorpheniramine (CHLORTRIMETON) 4 mg tablet Take by mouth. FLOWFLEX COVID-19 AG HOME TEST kit as directed. Cranberry 500 mg cap Take by mouth. diclofenac (VOLTAREN) 1 % topical gel Diclofenac Sodium 1 % External Gel Quantity: 100 Refills: 0 Ordered: 26-Jun-2019 DO Start : 15-Jun-2019 Active empagliflozin (JARDIANCE) 10 mg tablet Take by mouth. fexofenadine (ZAINAB) 60 mg tablet Take by mouth q 12 HR. finerenone (KERENDIA) 10 mg tablet Take by mouth. fluticasone (FLONASE) 50 mcg/actuation nasal spray Use in the nose q 24 HR. Ojbebsumb-Qrtubcrhvsdkev-Pcwd 3-2.5 % (7 gram) kit by RECTAL route. Ipratropium Anthon (ATROVENT) 21 mcg (0.03 %) nasal spray Use in the nose. ONE TOUCH DELICA 33 gauge USE ONCE A DAY DIRECTED L. acidophilus/Bifid. animalis 32 billion cell cap Take by mouth. Milk Thistle 150 mg cap Take 140 mg by mouth. montelukast (SINGULAIR) 10 mg tablet Take by mouth. GAVILYTE-G 236-22.74-6.74 -5.86 gram suspension PLEASE SEE ATTACHED FOR DETAILED DIRECTIONS Polypodium Leucotomos Extract 240 mg cap Take 1 capsule by mouth q 24 HR. Psyllium Husk-Sucrose 3.4 gram/7 gram powd Take by mouth. rifAXIMin (XIFAXAN) 550 mg tablet Take 550 mg by mouth. WHEAT DEXTRIN ORAL Take by mouth. colestipol (COLESTID) 1 gram tablet Take 1 g by mouth twice daily. FARXIGA 5 mg tablet Take 5 mg by mouth once daily. donepezil (ARICEPT) 10 mg tablet 10 MG ORALLY DAILY BEGIN AFTER COMPLETING ONE MONTH OF TREATMENT OF DONEPEZIL 5MG NIGHTLY ferrous sulfate 325 mg (65 mg iron) tablet Take 1 tablet by mouth once daily. melatonin 3 mg tablet Take 6 mg by mouth once daily. milk thist seed ext/milk thist (MILK THISTLE EXTRACT ORAL) Take by mouth once daily. famotidine (PEPCID) 20 mg tablet Take 20 mg by mouth twice daily. potassium citrate ER (UROCIT-K) 10 mEq (1,080 mg) Take by mouth once daily. Take two by mouth daily ascorbic acid, vitamin C, (VITAMIN C) 500 mg tablet Take 250 mg by mouth twice daily. 1/2 tablet calcium citrate (CITRACAL ORAL) Take by mouth three times daily. Two tablets MYRBETRIQ 25 mg Tb24 TAKE 1 TABLET BY MOUTH TWICE A DAY 60 tablet 3 traMADol (ULTRAM) 50 mg tablet calcium carb/magnesium hydrox (ROLAIDS ORAL) Take by mouth. simethicone (GAS-X ORAL) Take by mouth. 2 TABS EVERY AFTER MEAL AND HS NEEDED calcium citrate/vitamin D3 (CALCIUM CITRATE + D ORAL) Take by mouth once daily. Lactobac no.41/Bifidobact no.7 (PROBIOTIC-10 ORAL) Take by mouth once daily. pantoprazole DR (PROTONIX) 40 mg tablet Take 1 tablet by mouth once daily. 90 tablet 3 carvedilol (COREG) 6.25 mg tablet 25 mg twice daily at 6AM and 9PM. estradiol (ESTRACE) 0.01 % (0.1 mg/gram) vaginal cream amLODIPine (NORVASC) 2.5 mg tablet Take 2.5 mg by mouth once daily. Takes 5 MG BENEFIBER, GUAR GUM, ORAL Take by mouth once daily. cyanocobalamin (VITAMIN B-12) 1,000 mcg tab Take 1,000 mcg by mouth once daily. pregabalin (LYRICA) 25 mg capsule Take 25 mg by mouth once daily. B infantis/B ani/B maximino/B bifid (PROBIOTIC 4X ORAL) Take by mouth once daily. cranberry fruit extract (CRANBERRY CONCENTRATE ORAL) Take by mouth once daily. losartan potassium (LOSARTAN ORAL) Take 50 mg by mouth once daily. 100 MG furosemide (LASIX) 40 mg tablet Take 1 tablet by mouth once each week. (Patient taking differently: Take 20 mg by mouth one time a week. 20 MG by mouth daily) 4 tablet 0 potassium chloride ER (K-DUR, KLOR-CON) 20 mEq tablet Take 20 mEq by mouth twice daily. calcium carbonate-Vit D3-minerals (CALTRATE PLUS) 600 mg calcium- 400 unit tab Take 2 tablets by mouth three times daily. 0 multivitamins w-minerals/lut(CENTRUM SILVER TAB) Take one(1) tablet daily. 0 No current facility-administered medications for this visit. ALLERGIES: ALLERGIES Allergen Reactions Prednisone Mental Status Change Vioxx [Rofecoxib] Swelling Nsaids (Non-Steroid* Other: See Comments Gastric bypass Tramadol Mental Status Change PAST MEDICAL/SURGICAL HISTORY, SOCIAL HISTORY, AND FAMILY HISTORY: Reviewed and is unchanged aside from the changes documented in HPI. REVIEW OF SYSTEMS: ROS completed and negative outside of the systems documented in the HPI. INVESTIGATIONS: All available pertinent interval investigations were reviewed and were notable for: PHYSICAL EXAM: Limited with video visit. Appears healthy and well developed. Total time spent on this patient encounter today was >45 mins including: preparation for the visit, review and interpretation of records, direct discussion with the patient, physical examination, documentation, and co-ordination of care. documented in this encounter [facility] 06-07-2022 Note HNO ID: [id number] Author: Lynne Key MD Service: ? Author Type: Physician Type: Progress Notes Filed: 06/14/2022 6:57 PM Note Text: SMALL BOWEL DISEASES AND NUTRITION NEW ENCOUNTER Date of direct communication: 05/31/22 IMPRESSION: Madelyn Love is a 76 year old female s/p RYGB who did well for many years until around the time of cystocele and rectocele repair. Now with chronic diarrhea causing hyponatremia and fecal incontinence. She has seen significant symptom improvement after starting bile salt binders and diet/lifestyle modification. Will continue to work towards optimizing GI symptoms. DIAGNOSTIC ISSUES AND PLAN: #) Chronic diarrhea #) S/p RYBG -Continue cholestyramine and general diet/lifestyle strategies and ORS to reduce diarrhea -Can try to increase dose of Citrucel 2-->3 or 4 capsules twice daily, if possible reduce cholestyramine to once daily. Monitor based on diarrhea response. -Change magnesium oxide to Mg Plus Protein (2 tabs before bedtime). -Check vitamin/mineral labs with next labs - if you next vitamin/mineral labs return normal, may be able to simplify supplement regimen to a bariatric multivitamin with mineral supplement (eg Bariatric fusion) #) Polypharmacy -Can she stop cranberry, probiotics, and milk thistle? FOLLOW-UP: 6 weeks or sooner if needed Lynne Key MD 05/31/22 [id number] [employer] [facility] , REFERRING PROVIDER: Aakash Bryan [address] [facility] [id number] REASON FOR REFERRAL: S/p RYGB, intestinal malabsorption, SIBO HISTORY: -s/p RYGB 2012 - Shani limb 100cm, unknown length of BP limb and common channel - did very well after, lost about 100 lbs, gastroparesis improved, sleep apnea improved, chest pain improved -s/p cholecystectomy 2013 -s/p hysterectomy 2013 -s/p rectocele and cystocele 2019 -Was doing really well until 1-2 years ago and started to get worsening diarrhea and lower abdominal discomfort. Will have multiple BMs in the morning until 10:30-11am. After this it is better and no more BM's until the next day. Associated with upper abdo bloating. -Follows with GI at , received rifaximin earlier this year x3 about a month apart each after a positive breath test for SIBO without significant change in symptoms -+fecal incontinence in the past but this is much better now, this was especially after eating in the morning starting with a somewhat formed stool and then progressing to looser stool and diarrhea for the next 2 hours -No nausea/vomiting. +GERD and hiatal hernia noted on imaging. -Cholestipol switched to cholestyramine - helpful for diarrhea, stool is more formed the past 2 weeks. Upper abdo bloating is also better with cholestyramine. -Has had problems with hyponatremia and confusion requiring ICU hospitalization - may have been due to taking 96oz free water and Lasix at the same time and also having a lot of diarrhea at the time -Has back stimulator, but it does not contain any medications -Fluids currently, decaf unsweetened iced tea <60 oz/d. Separates liquids from solids and sips the fluids through the day. -Eating a variety of foods, but doesn't notice any difference in symptoms based on what she eats. Gets 20g protein with each meal, eats 3 meals a day. Takes Ensure High Protein if she missed a meal. Therapies tried: Flagyl - psychotic episode requiring hospitalization Rifaximin - minimally effective PERT - Creon was poorly tolerated with worsening diarrhea Cholestipol - not helpful Cholestyramine - most helpful, takes it twice a day Imodium - not helpful, too much bloating Lomotil - not helpful, too much bloating Fiber - Citrucel helpful, continues to take it twice a day Protonix - helpful for GERD Farxiga - helpful CURRENT NUTRITION SUPPORT: None Weight history:Last 10 Encounter Wt Readings: Pre-surgery 230 lbs; lowest weight 115 lbs. Date: Wt: 04/29/2022 62.8 kg (138 lb 6.4 oz) 02/28/2022 63 kg (139 lb) 02/25/2020 60.8 kg (134 lb) 01/21/2020 60.8 kg (134 lb) 12/20/2019 59.4 kg (131 lb) 12/15/2019 59 kg (130 lb) 11/25/2019 59 kg (130 lb) 11/24/2019 59.9 kg (132 lb) 11/18/2019 59.9 kg (132 lb) 10/13/2019 59 kg (130 lb) Current Outpatient Medications Medication Sig acetaminophen (TYLENOL) 500 mg tablet Take by mouth. azelastine (ASTELIN, ASTEPRO) 0.1% nasal spray Use in the nose q 12 HR. azelastine (ASTELIN, ASTEPRO) 0.1% nasal spray USE 2 (TWO) SPRAY TWICE DAILY TO PREVENT AND TREAT ALLERGY RHINITS (ANTIHISTAMINE) Bacillus subtilis-inulin 1.5 billion cell-1 gram chew Take by mouth. BENZONATATE ORAL Zonatuss takes 2-3 Not-Taking ONETOUCH ULTRA TEST test strip once daily. chlorpheniramine (CHLORTRIMETON) 4 mg tablet Take by mouth. FLOWFLEX COVID-19 AG HOME TEST kit as directed. Cranberry 500 mg cap Take by mouth. diclo (more content not included)... [facility] 06-07-2022 Instructions Lynne Key MD - 06/07/2022 2:42 PM EST -Fax outside labs to: [phone] -Can try to increase dose of Citrucel 2-->3 or 4 capsules twice daily, if possible reduce cholestyramine to once daily. Monitor based on diarrhea response. -Change magnesium oxide to Mg Plus Protein (2 tabs before bedtime). -Check vitamin/mineral labs with next labs - if you next vitamin/mineral labs return normal, may be able to simplify supplement regimen to a bariatric multivitamin with mineral supplement (eg Bariatric fusion) -Can you stop cranberry, probiotics, and milk thistle? documented in this encounter [facility] 06-07-2022 History of Present illness Narrative Images from the original note were not included. SMALL BOWEL DISEASES AND NUTRITION NEW ENCOUNTER Date of direct communication: 05/31/22 IMPRESSION: Madelyn Love is a 76 year old female s/p RYGB who did well for many years until around the time of cystocele and rectocele repair. Now with chronic diarrhea causing hyponatremia and fecal incontinence. She has seen significant symptom improvement after starting bile salt binders and diet/lifestyle modification. Will continue to work towards optimizing GI symptoms. DIAGNOSTIC ISSUES AND PLAN: #) Chronic diarrhea #) S/p RYBG -Continue cholestyramine and general diet/lifestyle strategies and ORS to reduce diarrhea -Can try to increase dose of Citrucel 2-->3 or 4 capsules twice daily, if possible reduce cholestyramine to once daily. Monitor based on diarrhea response. -Change magnesium oxide to Mg Plus Protein (2 tabs before bedtime). -Check vitamin/mineral labs with next labs - if you next vitamin/mineral labs return normal, may be able to simplify supplement regimen to a bariatric multivitamin with mineral supplement (eg Bariatric fusion) #) Polypharmacy -Can she stop cranberry, probiotics, and milk thistle? FOLLOW-UP: 6 weeks or sooner if needed Lynne Key MD 05/31/22 [id number] [employer] [facility] , REFERRING PROVIDER: Aakash Bryan [address] [facility] [id number] REASON FOR REFERRAL: S/p RYGB, intestinal malabsorption, SIBO HISTORY: -s/p RYGB 2012 - Shani limb 100cm, unknown length of BP limb and common channel - did very well after, lost about 100 lbs, gastroparesis improved, sleep apnea improved, chest pain improved -s/p cholecystectomy 2013 -s/p hysterectomy 2013 -s/p rectocele and cystocele 2019 -Was doing really well until 1-2 years ago and started to get worsening diarrhea and lower abdominal discomfort. Will have multiple BMs in the morning until 10:30-11am. After this it is better and no more BM's until the next day. Associated with upper abdo bloating. -Follows with GI at , received rifaximin earlier this year x3 about a month apart each after a positive breath test for SIBO without significant change in symptoms -+fecal incontinence in the past but this is much better now, this was especially after eating in the morning starting with a somewhat formed stool and then progressing to looser stool and diarrhea for the next 2 hours -No nausea/vomiting. +GERD and hiatal hernia noted on imaging. -Cholestipol switched to cholestyramine - helpful for diarrhea, stool is more formed the past 2 weeks. Upper abdo bloating is also better with cholestyramine. -Has had problems with hyponatremia and confusion requiring ICU hospitalization - may have been due to taking 96oz free water and Lasix at the same time and also having a lot of diarrhea at the time -Has back stimulator, but it does not contain any medications -Fluids currently, decaf unsweetened iced tea <60 oz/d. Separates liquids from solids and sips the fluids through the day. -Eating a variety of foods, but doesn't notice any difference in symptoms based on what she eats. Gets 20g protein with each meal, eats 3 meals a day. Takes Ensure High Protein if she missed a meal. Therapies tried: Flagyl - psychotic episode requiring hospitalization Rifaximin - minimally effective PERT - Creon was poorly tolerated with worsening diarrhea Cholestipol - not helpful Cholestyramine - most helpful, takes it twice a day Imodium - not helpful, too much bloating Lomotil - not helpful, too much bloating Fiber - Citrucel helpful, continues to take it twice a day Protonix - helpful for GERD Farxiga - helpful CURRENT NUTRITION SUPPORT: None Weight history:Last 10 Encounter Wt Readings: Pre-surgery 230 lbs; lowest weight 115 lbs. Date: Wt: 04/29/2022 62.8 kg (138 lb 6.4 oz) 02/28/2022 63 kg (139 lb) 02/25/2020 60.8 kg (134 lb) 01/21/2020 60.8 kg (134 lb) 12/20/2019 59.4 kg (131 lb) 12/15/2019 59 kg (130 lb) 11/25/2019 59 kg (130 lb) 11/24/2019 59.9 kg (132 lb) 11/18/2019 59.9 kg (132 lb) 10/13/2019 59 kg (130 lb) Current Outpatient Medications Medication Sig acetaminophen (TYLENOL) 500 mg tablet Take by mouth. azelastine (ASTELIN, ASTEPRO) 0.1% nasal spray Use in the nose q 12 HR. azelastine (ASTELIN, ASTEPRO) 0.1% nasal spray USE 2 (TWO) SPRAY TWICE DAILY TO PREVENT AND TREAT ALLERGY RHINITS (ANTIHISTAMINE) Bacillus subtilis-inulin 1.5 billion cell-1 gram chew Take by mouth. BENZONATATE ORAL Zonatuss takes 2-3 Not-Taking ONETOUCH ULTRA TEST test strip once daily. chlorpheniramine (CHLORTRIMETON) 4 mg tablet Take by mouth. FLOWFLEX COVID-19 AG HOME TEST kit as directed. Cranberry 500 mg cap Take by mouth. diclofenac (VOLTAREN) 1 % topical gel Diclofenac Sodium 1 % External Gel Quantity: 100 Refills: 0 Ordered: 26-Jun-2019 DO Start : 15-Jun-2019 Active empagliflozin (JARDIANCE) 10 mg tablet Take by mouth. fexofenadine (ZAINAB) 60 mg tablet Take by mouth q 12 HR. finerenone (KERENDIA) 10 mg tablet Take by mouth. fluticasone (FLONASE) 50 mcg/actuation nasal spray Use in the nose q 24 HR. Sstohyzhy-Pioxflvgkaahjz-Coij 3-2.5 % (7 gram) kit by RECTAL route. Ipratropium Anthon (ATROVENT) 21 mcg (0.03 %) nasal spray Use in the nose. ONE TOUCH DELICA 33 gauge USE ONCE A DAY DIRECTED L. acidophilus/Bifid. animalis 32 billion cell cap Take by mouth. magnesium gluconate (MAGONATE) 27 mg (500 mg) tab Take 500 mg by mouth. Milk Thistle 150 mg cap Take 140 mg by mouth. montelukast (SINGULAIR) 10 mg tablet Take by mouth. GAVILYTE-G 236-22.74-6.74 -5.86 gram suspension PLEASE SEE ATTACHED FOR DETAILED DIRECTIONS Polypodium Leucotomos Extract 240 mg cap Take 1 capsule by mouth q 24 HR. Psyllium Husk-Sucrose 3.4 gram/7 gram powd Take by mouth. rifAXIMin (XIFAXAN) 550 mg tablet Take 550 mg by mouth. WHEAT DEXTRIN ORAL Take by mouth. colestipol (COLESTID) 1 gram tablet Take 1 g by mouth twice daily. FARXIGA 5 mg tablet Take 5 mg by mouth once daily. donepezil (ARICEPT) 10 mg tablet 10 MG ORALLY DAILY BEGIN AFTER COMPLETING ONE MONTH OF TREATMENT OF DONEPEZIL 5MG NIGHTLY ferrous sulfate 325 mg (65 mg iron) tablet Take 1 tablet by mouth once daily. melatonin 3 mg tablet Take 6 mg by mouth once daily. milk thist seed ext/milk thist (MILK THISTLE EXTRACT ORAL) Take by mouth once daily. famotidine (PEPCID) 20 mg tablet Take 20 mg by mouth twice daily. potassium citrate ER (UROCIT-K) 10 mEq (1,080 mg) Take by mouth once daily. Take two by mouth daily ascorbic acid, vitamin C, (VITAMIN C) 500 mg tablet Take 250 mg by mouth twice daily. 1/2 tablet calcium citrate (CITRACAL ORAL) Take by mouth three times daily. Two tablets MYRBETRIQ 25 mg Tb24 TAKE 1 TABLET BY MOUTH TWICE A DAY traMADol (ULTRAM) 50 mg tablet calcium carb/magnesium hydrox (ROLAIDS ORAL) Take by mouth. simethicone (GAS-X ORAL) Take by mouth. 2 TABS EVERY AFTER MEAL AND HS NEEDED calcium citrate/vitamin D3 (CALCIUM CITRATE + D ORAL) Take by mouth once daily. Lactobac no.41/Bifidobact no.7 (PROBIOTIC-10 ORAL) Take by mouth once daily. pantoprazole DR (PROTONIX) 40 mg tablet Take 1 tablet by mouth once daily. carvedilol (COREG) 6.25 mg tablet 25 mg twice daily at 6AM and 9PM. estradiol (ESTRACE) 0.01 % (0.1 mg/gram) vaginal cream amLODIPine (NORVASC) 2.5 mg tablet Take 2.5 mg by mouth once daily. Takes 5 MG BENEFIBER, GUAR GUM, ORAL Take by mouth once daily. cyanocobalamin (VITAMIN B-12) 1,000 mcg tab Take 1,000 mcg by mouth once daily. pregabalin (LYRICA) 25 mg capsule Take 25 mg by mouth once daily. B infantis/B ani/B amximino/B bifid (PROBIOTIC 4X ORAL) Take by mouth once daily. cranberry fruit extract (CRANBERRY CONCENTRATE ORAL) Take by mouth once daily. losartan potassium (LOSARTAN ORAL) Take 50 mg by mouth once daily. 100 MG furosemide (LASIX) 40 mg tablet Take 1 tablet by mouth once each week. (Patient taking differently: Take 20 mg by mouth one time a week. 20 MG by mouth daily) potassium chloride ER (K-DUR, KLOR-CON) 20 mEq tablet Take 20 mEq by mouth twice daily. calcium carbonate-Vit D3-minerals (CALTRATE PLUS) 600 mg calcium- 400 unit tab Take 2 tablets by mouth three times daily. magnesium oxide 400 mg tablet Take 400 mg by mouth twice daily. multivitamins w-minerals/lut(CENTRUM SILVER TAB) Take one(1) tablet daily. No current facility-administered medications for this visit. ALLERGIES Allergen Reactions Prednisone Mental Status Change Vioxx [Rofecoxib] Swelling Nsaids (Non-Steroid* Other: See Comments Gastric bypass Tramadol Mental Status Change PAST MEDICAL HISTORY Diagnosis Date Allergic rhinitis, cause unspecified Chronic kidney disease, stage IV (severe) (HCC) Congestive heart failure, unspecified DR. 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 CATARACT EXTRACTION HX Bilateral 2018 CHOLECYSTECTOMY 2014 COLONOSCOPY FLX DX W/COLLJ SPEC WHEN PFRMD 08/11/2006 Colonoscopy GASTRIC BYPASS, SHANI-EN-Y 2013 HYSTERECTOMY 2014 OSTECTOMY CALCANEUS SPUR W/WO PLNTAR FASCIAL RLS 1980 bilateral heels PAST SURGICAL HISTORY OF 07/18/09 heart cath PAST SURGICAL HISTORY OF Right 2012 right elbow - fausto in ulna and radius PAST SURGICAL HISTORY OF 2016 A&P repair (vagicele and rectocele) PAST SURGICAL HISTORY OF 06/10/2017 Dr. Gay - microdecompression laminectomy PAST SURGICAL HISTORY OF 05/03/2019 Bursectomy PAST SURGICAL HISTORY OF 12/02/2019 Dr. Sheehan - PARTH PROCEDURE SIGMOIDOSCOPY 06/07/2019 normal Social History Tobacco Use Smoking status: Never Smokeless tobacco: Never Vaping Use Vaping Use: Never used Substance Use Topics Alcohol use: No Drug use: No FAMILY HISTORY Problem Relation Age of Onset Stroke Mother mini strokes Colon Cancer Paternal Grandfather REVIEW OF SYSTEMS: Complete ROS performed and negative outside of the systems documented in the HPI. INVESTIGATIONS: All available pertinent interval investigations were reviewed and were notable for: Labs 06-10-2022: Albumin 3.8, ALP 71, ALT 25, AST 24, bili 0.3, BUN 18, calcium 8.7, Cl 108, CO2 20, Creat 0.75, ferritin 119, glucose 269, Hct 38, Hgb 12.6, INR 0.9, iron 124, TIBC 343, WBC 6.46, magnesium 2.2, Na 138, K 3.3, phos 3.6, Plt 219, total protein 6 EGD & colonoscopy 05-02-2022: EGD notable for s/p RYGB with active GERD but was otherwise unremarkable. Colonoscopy to the cecum also unremarkable. Pathology: A. Stomach, gastric pouch, biopsy: - Gastric body/fundus mucosa with no significant histopathologic abnormality. - There is no evidence of Helicobacter pylori infection on routine stains. B. Esophagogastric junction, biopsy: - Gastric-type glandular mucosa with very mild chronic inflammation. - No intestinal metaplasia or dysplasia is identified. - There is no esophageal squamous epithelium sampled. C. Colon, random, biopsy: - Colonic mucosa with no histopathologic abnormality. Upper GI with SBS 11-12-2018: CTAP 03-14-2022 (reviewed): Stool present throughout the colon with fecalization of the TI RESULT: Liver: No mass. Normal morphology. Biliary: No bile duct dilation. Gallbladder is absent. Spleen: No mass. No splenomegaly. Pancreas: No mass or duct dilation. Adrenals: No mass. Kidneys: The kidneys enhance symmetrically. There is no hydronephrosis. Bilateral renal cysts. GI tract: No dilation or wall thickening. Postoperative changes from gastric bypass surgery. Small sliding hiatal hernia. Lymph nodes: No abdominal or pelvic lymphadenopathy. Mesentery/Peritoneum: No ascites or mass. Retroperitoneum: No mass. Vasculature: - Abdominal aorta and iliac arteries: Atherosclerotic calcifications without aneurysm. - Celiac and SMA: Atherosclerotic calcifications at the origins. - Portal venous system (SMV, splenic vein, portal vein and branches): Patent. - Hepatic veins: Patent. Pelvis: No mass, ascites or fluid collection. The bladder has a normal appearance. Bones/Soft Tissues: Age-indeterminate mild compression deformities of T12 and L1. Degenerative disease of the lower thoracic and lumbar spine. Lower thorax: No pleural effusion or consolidation Sample Steamer (topogram) images: No additional findings. IMPRESSION: 1. No acute pathology. No mass or lymphadenopathy. 2. Small sliding hiatal hernia AXR 03-01-2022 (reviewed): 2 x-rays of the abdomen are obtained. There is a non-obstructed bowel gas pattern. There is no hepatomegaly or splenomegaly. No abnormal calcifications are visualized. There are no acute osseous abnormalities. Vascular calcifications are noted. There are multiple surgical clips in the upper abdomen. A spinal stimulator device projects over the left lower quadrant. A lead extends superiorly with the tip at the level of T10. HGB (g/dL) Date Value 12/03/2019 11.6 Hematocrit (%) Date Value 12/03/2019 35.2 WBC (thou/cmm) Date Value 12/03/2019 9.65 Platelet Count (thou/cmm) Date Value 12/03/2019 193 CMP: Glucose 192 12/03/2019 BUN 9 12/03/2019 Creatinine 0.74 03/12/2022 Sodium 133 12/03/2019 Potassium 4.0 12/03/2019 Chloride 102 12/03/2019 CO2 22 12/03/2019 Calcium 7.0 12/03/2019 Labs 07-12-2021: 25-OH vitamin D 58 Albumin 2.6 Total protein 4.9 Bili 0.3, ALP 83, ALT 16, AST 25 TSH 0.338 fT4 1.57 Hgb A1c 6.7 PHYSICAL EXAM: BP 156/54 Pulse 66 Temp 36.4 C (97.6 F) Ht 125.7 cm (4' 1.5) Wt 63.7 kg (140 lb 6.4 oz) SpO2 100% BMI 40.29 kg/m Body mass index is 40.29 kg/m . Constitutional: Healthy and well developed HEENT: No icterus. Moist MM's. Neck: No lymphadenopathy. Resp: Normal resp effort. CVS: PPP bilat. Abdo: Non-distended, soft, non-tender, no masses. REBEKA: Not done. Extr: Good muscle bulk and subQ fat reserves. No edema. Skin: Warm and dry. No rash. Neuro: A&O, normal gait. Psych: Normal affect and memory. Total time of this patient encounter today was >60 mins, including: preparation for visit, direct time with the patient, examination, orders, review of records, and documentation. documented in this encounter [facility] 04-30-2022 Miscellaneous Notes Spoke with patient and . Patient unable to have morning appointment due to bowel issues. Scheduled 1st available afternoon appointment on 06/07/22 at 2:00 pm. Patient request a paper appointment reminder. Patient and understands and agrees with plan. Tiara Plaza LPN LVM to schedule an appointment per request from Dr. Aakash Bryan. H/O Shani-en-Y; malabsorption; SIBO. Tiara Plaza LPN documented in this encounter [facility] 04-29-2022 Note HNO ID: [id number] Author: Aakash Bryan MD Service: ? Author Type: Physician Type: Progress Notes Filed: 04/29/2022 4:09 PM Note Text: [facility] DEPARTMENT [facility] SURGERY NAME: Madelyn Love [facility] NO: [id number] DATE OF SERVICE: April 29, 2022 CHIEF COMPLAINT: Chronic diarrhea and concern for malabsorption. Referral for consideration of reversal. HISTORY OF PRESENT ILLNESS: The patient is a 76 year old female with a complaint of abdominal cramping and morning diarrheal stools. The patient has progressive worsening of diarrhea and lower abdominal complaints for the past 2 years. She is now at the point where when she wakes up she has multiple loose stools each morning usually starting with a somewhat formed stool but then progressing to looser stools diarrhea for 2 hours. She also has fecal incontinence. She states this does not seem to relate to what ever food she eats in the morning. She also notes that she can eat lunch and dinner without having recurrence of the symptoms. She denies nausea or vomiting. she does note acid reflux. She notes degree of loss of stool control in the mornings. She notes no melena or blood in her stools. She denies weight loss. She had undergone a Shani-en-Y gastric bypass and prior cholecystectomy. She also underwent repair of rectocele and cystocele 2 years previously. She saw her surgeon that performed her Lap Shani-en-Y gastric bypass-Dr. Carlos Granados. He most recently saw the patient on January 24, 2022. His diagnosis was malabsorption. He recommended following up with colorectal surgery for her complaint of loose stools and incontinence. She has been followed by gastroenterology-Dr. Marilia Cheung at [facility]. She was last seen by him on March 04, 2022. Patient has been receiving treatment at that location for possible small intestinal bacterial overgrowth. She was given rifaximin from to January 08. She did not note enough of a change in her symptoms to continue paying for that medication. They had performed a breath test 1 year previously which was felt to be positive for SIBO. She was treated with rifaximin at that time with some improvement. Previously she had been given Flagyl which was discontinued at states when she had a psychotic break while taking long-term steroids for arthritis. She was apparently hospitalized at [facility] for this. 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 She had an upper endoscopy performed on December 02, [address] Wynn which demonstrated some smaller bleeding erosions in the gastric fundus normal jejunum and was felt to have a hiatal hernia? No biopsies were obtained but it was recommended she have follow-up upper endoscopy to evaluate healing of that site. The patient underwent upper GI with small bowel follow-through on November 12, 2018. This demonstrated a moderate sized hiatal hernia and status post subtotal gastrectomy and gastric bypass no other specific abnormalities were noted. The patient had a flexible sigmoidoscopy on June 07, 2019 prior to her rectocele cystocele repair. This was unremarkable. She understands she had a colonoscopy with no abnormalities prior to that. PAST MEDICAL HISTORY Diagnosis Date Allergic rhinitis, cause unspecified Chronic kidney disease, stage IV (severe) (HCC) Congestive heart failure, unspecified DR. 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 CATARACT EXTRACTION HX Bilateral 2018 CHOLECYSTECTOMY 2014 COLONOSCOPY FLX DX W/COLLJ SPEC WHEN PFRMD 08/11/2006 Colonoscopy GASTRIC BYPASS, SHANI-EN-Y 2013 HYSTERECTOMY 2014 OSTECTOMY CALCANEUS SPUR W/WO PLNTAR FASCIAL RLS 1980 bilateral heels PAST SURGICAL HISTORY OF 07/18/09 heart cath PAST SURGICAL HISTORY OF Right 2012 right elbow - fausto in ulna and radius PAST SURGICAL HISTORY OF 2016 AANDP repair (vagicele and rectocele) PAST SURGICAL HISTORY OF 06/10/2017 Dr. Morrison (more content not included)... [facility] 04-29-2022 History of Present illness Narrative Images from the original note were not included. [facility] DEPARTMENT OF SURGERY NAME: Madelyn Love [facility] NO: [id number] DATE OF SERVICE: April 29, 2022 CHIEF COMPLAINT: Chronic diarrhea and concern for malabsorption. Referral for consideration of reversal. HISTORY OF PRESENT ILLNESS: The patient is a 76 year old female with a complaint of abdominal cramping and morning diarrheal stools. The patient has progressive worsening of diarrhea and lower abdominal complaints for the past 2 years. She is now at the point where when she wakes up she has multiple loose stools each morning usually starting with a somewhat formed stool but then progressing to looser stools diarrhea for 2 hours. She also has fecal incontinence. She states this does not seem to relate to what ever food she eats in the morning. She also notes that she can eat lunch and dinner without having recurrence of the symptoms. She denies nausea or vomiting. she does note acid reflux. She notes degree of loss of stool control in the mornings. She notes no melena or blood in her stools. She denies weight loss. She had undergone a Shani-en-Y gastric bypass and prior cholecystectomy. She also underwent repair of rectocele and cystocele 2 years previously. She saw her surgeon that performed her Lap Shani-en-Y gastric bypass-Dr. Carlos Granados. He most recently saw the patient on January 24, 2022. His diagnosis was malabsorption. He recommended following up with colorectal surgery for her complaint of loose stools and incontinence. She has been followed by gastroenterology-Dr. Marilia Cheung at [facility]. She was last seen by him on March 04, 2022. Patient has been receiving treatment at that location for possible small intestinal bacterial overgrowth. She was given rifaximin from to January 08. She did not note enough of a change in her symptoms to continue paying for that medication. They had performed a breath test 1 year previously which was felt to be positive for SIBO. She was treated with rifaximin at that time with some improvement. Previously she had been given Flagyl which was discontinued at states when she had a psychotic break while taking long-term steroids for arthritis. She was apparently hospitalized at [facility] for this. 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 She had an upper endoscopy performed on December 02, [address] Wynn which demonstrated some smaller bleeding erosions in the gastric fundus normal jejunum and was felt to have a hiatal hernia? No biopsies were obtained but it was recommended she have follow-up upper endoscopy to evaluate healing of that site. The patient underwent upper GI with small bowel follow-through on November 12, 2018. This demonstrated a moderate sized hiatal hernia and status post subtotal gastrectomy and gastric bypass no other specific abnormalities were noted. The patient had a flexible sigmoidoscopy on June 07, 2019 prior to her rectocele cystocele repair. This was unremarkable. She understands she had a colonoscopy with no abnormalities prior to that. PAST MEDICAL HISTORY Diagnosis Date Allergic rhinitis, cause unspecified Chronic kidney disease, stage IV (severe) (HCC) Congestive heart failure, unspecified DR. 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 CATARACT EXTRACTION HX Bilateral 2018 CHOLECYSTECTOMY 2014 COLONOSCOPY FLX DX W/COLLJ SPEC WHEN PFRMD 08/11/2006 Colonoscopy GASTRIC BYPASS, SHANI-EN-Y 2013 HYSTERECTOMY 2014 OSTECTOMY CALCANEUS SPUR W/WO PLNTAR FASCIAL RLS 1980 bilateral heels PAST SURGICAL HISTORY OF 07/18/09 heart cath PAST SURGICAL HISTORY OF Right 2012 right elbow - fausto in ulna and radius PAST SURGICAL HISTORY OF 2016 A&P repair (vagicele and rectocele) PAST SURGICAL HISTORY OF 06/10/2017 Dr. Gay - microdecompression laminectomy PAST SURGICAL HISTORY OF 05/03/2019 Bursectomy PAST SURGICAL HISTORY OF 12/02/2019 Dr. Sheehan - PARTH PROCEDURE SIGMOIDOSCOPY 06/07/2019 normal FAMILY HISTORY Problem Relation Age of Onset Stroke Mother mini strokes Colon Cancer Paternal Grandfather Social History Tobacco Use Smoking status: Never Smokeless tobacco: Never Vaping Use Vaping Use: Never used Substance Use Topics Alcohol use: No Drug use: No Current Outpatient Medications Medication Sig acetaminophen (TYLENOL) 500 mg tablet Take by mouth. azelastine (ASTELIN, ASTEPRO) 0.1% nasal spray USE 2 (TWO) SPRAY TWICE DAILY TO PREVENT AND TREAT ALLERGY RHINITS (ANTIHISTAMINE) azithromycin (ZITHROMAX) 250 mg tablet Take by mouth. Bacillus subtilis-inulin 1.5 billion cell-1 gram chew Take by mouth. BENZONATATE ORAL Zonatuss takes 2-3 Not-Taking ONETOUCH ULTRA TEST test strip once daily. chlorpheniramine (CHLORTRIMETON) 4 mg tablet Take by mouth. FLOWFLEX COVID-19 AG HOME TEST kit as directed. Cranberry 500 mg cap Take by mouth. empagliflozin (JARDIANCE) 10 mg tablet Take by mouth. finerenone (KERENDIA) 10 mg tablet Take by mouth. Hsgzecpqq-Awyouojrpsvvli-Ixvv 3-2.5 % (7 gram) kit by RECTAL route. Ipratropium Anthon (ATROVENT) 21 mcg (0.03 %) nasal spray Use in the nose. ONE TOUCH DELICA 33 gauge USE ONCE A DAY DIRECTED L. acidophilus/Bifid. animalis 32 billion cell cap Take by mouth. magnesium gluconate (MAGONATE) 27 mg (500 mg) tab Take 500 mg by mouth. Milk Thistle 150 mg cap Take 140 mg by mouth. GAVILYTE-G 236-22.74-6.74 -5.86 gram suspension PLEASE SEE ATTACHED FOR DETAILED DIRECTIONS Polypodium Leucotomos Extract 240 mg cap Take 1 capsule by mouth q 24 HR. Psyllium Husk-Sucrose 3.4 gram/7 gram powd Take by mouth. rifAXIMin (XIFAXAN) 550 mg tablet Take 550 mg by mouth. colestipol (COLESTID) 1 gram tablet Take 1 g by mouth twice daily. FARXIGA 5 mg tablet Take 5 mg by mouth once daily. donepezil (ARICEPT) 10 mg tablet 10 MG ORALLY DAILY BEGIN AFTER COMPLETING ONE MONTH OF TREATMENT OF DONEPEZIL 5MG NIGHTLY ferrous sulfate 325 mg (65 mg iron) tablet Take 1 tablet by mouth once daily. melatonin 3 mg tablet Take 6 mg by mouth once daily. milk thist seed ext/milk thist (MILK THISTLE EXTRACT ORAL) Take by mouth once daily. potassium citrate ER (UROCIT-K) 10 mEq (1,080 mg) Take by mouth once daily. Take two by mouth daily ascorbic acid, vitamin C, (VITAMIN C) 500 mg tablet Take 250 mg by mouth twice daily. 1/2 tablet calcium citrate (CITRACAL ORAL) Take by mouth three times daily. Two tablets MYRBETRIQ 25 mg Tb24 TAKE 1 TABLET BY MOUTH TWICE A DAY calcium carb/magnesium hydrox (ROLAIDS ORAL) Take by mouth. calcium citrate/vitamin D3 (CALCIUM CITRATE + D ORAL) Take by mouth once daily. Lactobac no.41/Bifidobact no.7 (PROBIOTIC-10 ORAL) Take by mouth once daily. carvedilol (COREG) 6.25 mg tablet twice daily with meals. amLODIPine (NORVASC) 2.5 mg tablet Take 2.5 mg by mouth once daily. Takes 5 MG cyanocobalamin (VITAMIN B-12) 1,000 mcg tab Take 1,000 mcg by mouth once daily. pregabalin (LYRICA) 25 mg capsule Take 25 mg by mouth once daily. B infantis/B ani/B maximino/B bifid (PROBIOTIC 4X ORAL) Take by mouth once daily. cranberry fruit extract (CRANBERRY CONCENTRATE ORAL) Take by mouth once daily. losartan potassium (LOSARTAN ORAL) Take 50 mg by mouth once daily. 100 MG potassium chloride ER (K-DUR, KLOR-CON) 20 mEq tablet Take 20 mEq by mouth twice daily. calcium carbonate-Vit D3-minerals (CALTRATE PLUS) 600 mg calcium- 400 unit tab Take 2 tablets by mouth three times daily. magnesium oxide 400 mg tablet Take 400 mg by mouth twice daily. multivitamins w-minerals/lut(CENTRUM SILVER TAB) Take one(1) tablet daily. amoxicillin (AMOXIL) 875 mg tablet Take by mouth q 12 HR. azelastine (ASTELIN, ASTEPRO) 0.1% nasal spray Use in the nose q 12 HR. diclofenac (VOLTAREN) 1 % topical gel Diclofenac Sodium 1 % External Gel Quantity: 100 Refills: 0 Ordered: 26-Jun-2019 DO Start : 15-Jun-2019 Active fexofenadine (ZAIANB) 60 mg tablet Take by mouth q 12 HR. fluticasone (FLONASE) 50 mcg/actuation nasal spray Use in the nose q 24 HR. montelukast (SINGULAIR) 10 mg tablet Take by mouth. WHEAT DEXTRIN ORAL Take by mouth. famotidine (PEPCID) 20 mg tablet Take 20 mg by mouth twice daily. traMADol (ULTRAM) 50 mg tablet simethicone (GAS-X ORAL) Take by mouth. 2 TABS EVERY AFTER MEAL AND HS NEEDED jbidzc-hyhjsbeo-dzjigvc (CREON 36) 36,000-114,000- 180,000 unit capsule Take 2 capsules by mouth three times daily with meals. Take 2 caps 3 times daily with meals;1 cap with each snack. pantoprazole DR (PROTONIX) 40 mg tablet Take 1 tablet by mouth once daily. estradiol (ESTRACE) 0.01 % (0.1 mg/gram) vaginal cream BENEFIBER, GUAR GUM, ORAL Take by mouth once daily. furosemide (LASIX) 40 mg tablet Take 1 tablet by mouth once each week. (Patient taking differently: Take 20 mg by mouth one time a week. 20 MG by mouth daily) No current facility-administered medications for this visit. ALLERGIES: ALLERGIES Allergen Reactions Prednisone Mental Status Change Vioxx [Rofecoxib] Swelling Nsaids (Non-Steroid* Other: See Comments Gastric bypass REVIEW OF SYSTEMS: GENERAL: Negative for malaise, significant weight loss and fever NECK: Negative for lumps, goiter, pain and significant neck swelling RESPIRATORY: Negative for cough, wheezing or shortness of breath. CARDIOVASCULAR: Negative for chest pain, leg swelling or palpitations. GI: Negative for abdominal discomfort, blood in stools or black stools or change in bowel habits : No history of dysuria, frequency or incontinence MUSCULOSKELETAL: Negative for joint pain or swelling, back pain or muscle pain. SKIN: Negative for lesions, rash, and itching. PSYCH: Negative for sleep disturbance, mood disorder and recent psychosocial stressors. ENDOCRINE: Negative for cold or heat intolerance, polyuria, polydipsia and goiter. PHYSICAL EXAM: BP 136/76 (BP Site: Left Arm, BP Position: Sitting, BP Cuff Size: Large Adult) Pulse 78 Ht 142.5 cm (4' 8.1) Wt 62.8 kg (138 lb 6.4 oz) BMI 30.92 kg/m GENERAL: No apparent distress. Pt is alert and oriented x3. HEENT: Head is normocephalic and atraumatic. Extraocular muscles are intact. Pupils are equal, round, and reactive to light and accommodation. Nares appeared normal. Mouth is well hydrated and without lesions. Mucous membranes are moist. Posterior pharynx clear of any exudate or lesions. NECK: Supple. No carotid bruits. No lymphadenopathy or thyromegaly. LUNGS: Clear to auscultation. HEART: Regular rate and rhythm without murmur. ABDOMEN: Soft, nontender, and nondistended. Positive bowel sounds. No hepatosplenomegaly was noted. @incisions@ EXTREMITIES: Without any cyanosis, clubbing, rash, lesions or edema. NEUROLOGIC: Cranial nerves II through XII are grossly intact. PSYCHIATRIC: Flat affect, but denies suicidal or homicidal ideations. SKIN: No ulceration or induration present. ASSESSMENT: Assessment DATA: Diagnostic tests reviewed for today's visit: Most recent labs Most recent imaging IMPRESSION: Madelyn Love is a 76 year old female with the following diagnosis and co-morbidities: Body mass index is 30.92 kg/m . Diagnosis noted as above, no additional diagnosis at this time. This patient does meet the criteria for a surgical weight loss procedure according to NIH and ASMBS guidelines. PLAN / RECOMMENDATIONS: The patient is a 76 year old female with a complaint of abdominal cramping and morning diarrheal stools. She has h/o Lap RYGB in 2013. Shani limb was 100 cm, BP limb was not mentioned in note. The patient has progressive worsening of diarrhea and lower abdominal complaints for the past 2 years. She is now at the point where when she wakes up she has multiple loose stools each morning usually starting with a somewhat formed stool but then progressing to looser stools diarrhea for 2 hours. She has been treated for SIBO with rifaximin x 3 with transient improvement. She was referred here to discuss reversal. -F/u with GI at [facility] to discuss malabsorption and SIBO -F/u results on EGD and colonoscopy on 05/02/22 -Will hold off on reversal as last option. Hector Lopez MD [facility] STAFF NOTE I have seen and evaluated the patient and discussed the case with the resident physician. I agree with the assessment and plan as documented in the resident s note. S/P laparoscopic RYGB (retrocolic, retrogastric Shani) in 2013 at OSH. Per op note, Shani limb was 100 cm. Length of BP limb was not mentioned in the note. Chief complaints: Abdominal cramping and morning diarrheal stools since last year. Almost all of her symptoms are in the morning and she is usually fine after 11 am. Other than that, she is happy with results of gastric bypass which improved many of her obesity-associated comorbidities including diabetes. Since last year, she was treated for SIBO, with antidiarrheal agents, and with cholestyramine with some partial improvement. 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 If her symptoms persisted after medical management, we will consider diagnostic laparoscopy for possible revision or reversal of gastric bypass. She understood and agreed. I spent a total of 60 minutes on the date of the service which included preparing to see the patient, szqf-qo-[id number] patient care, completing clinical documentation, obtaining and/or reviewing separately obtained history, and counseling and educating the patient/family/caregiver. Aakash Bryan MD documented in this encounter [facility] 03-26-2022 Miscellaneous Notes Received referral request from Renzo Callejas MD. Patient accepted [id number] in person visit with and will bring OSH records to appt. Patient has EGD and Colonoscopy scheduled 05-02-22 documented in this encounter [facility] 03-18-2022 Miscellaneous Notes Patient accepted sooner procedure date 05/02/[address] [place] [address] Bisi Callejas please change orders to [place] so I may add to schedule Thank you Aundrea Jimenez Industrial Hygienist Please send prep Lola to [facility] in [place] on [facility] Patient is wanting Dr. Callejas to reach out to her to go over CT and Xray results she had done Please call the patient at the number listed on file to review results. Patient is also scheduled for her colonoscopy 10/21/2022 due to her being in [place] From 05/07/2022 till September 2022. Patient was wanting to try to get in before she leaves in May but there is no open availability in [place] for this patient to be done but Dr. Callejas. She wishes to try to get into [facility] before then. Patient is on waitlist for [facility] in [place] if any spots was to open up before she leaves by then Please advise Aundrea Jimenez Industrial Hygienist Madelyn and her stopped in. Madelyn had her CT scan of her abdomen and pelvis completed on 03/14/2022. They reached out to her integrated campaign manager in [place] and she did not have any endoscopies with their practice. She did have an upper GI with small bowel and [facility] in 2019. She also had an EGD and colonoscopy in 2019 at [facility] by Dr. Wynn. They are leaving for [place] on 03/23/2022 and will not be home until 04/23/2022. Could you please review her CT scan and advise if there are any further tests they need to complete before the leave? Dasha Toledo RN documented in this encounter [facility] 03-12-2022 Note HNO ID: [id number] Author: RT Gilbert(R) Service: ? Author Type: Industrial Health Engineer Type: Progress Notes Filed: 03/12/2022 2:48 PM Note Text: Radiology Service Progress Note DATE OF SERVICE: March 12, 2022 TIME: 2:48 PM PATIENT IDENTITY VERIFICATION COMPLETED USING TWO (2) STANDARD IDENTIFIERS: Name and Date of confirmed by patient verbally. FALL SCREENING: Has the patient had 2 falls in the last year or 1 fall with injury or currently using an Ambulatory Assistive Device (Walker, Cane, Wheelchair, Crutches, etc.)? No PATIENT GENDER DATA: Female. status: : No status: NO. PATIENT RELEVANT IMPLANT DATA REVIEWED: Yes ALLERGIES: Reviewed and unchanged CONTRAST ALLERGY: NO. EXAM: CT -CONTRAST INDUCED NEPHROPATHY RISK FACTORS: Patient age > 60 years CREATININE: Creatinine Date Value Ref Range Status 03/12/2022 0.74 0.58 - 0.96 mg/dL Final 12/03/2019 0.58 0.58 - 0.96 mg/dL Final Estimated Glomerular Filtration Rate Date Value Ref Range Status 03/12/2022 84 >=60 mL/min/1.73m? Final Comment: Estimated Glomerular Filtration Rate (eGFR) is calculated using the 2020 CKD-EPI creatinine equation. This equation utilizes serum creatinine, sex, and age as parameters. The creatinine assay has traceable calibration to isotope dilution-mass spectrometry. Refer to KDIGO guidelines for clinical interpretation. In patients with unstable renal function, e.g. those with acute kidney injury, the eGFR may not accurately reflect actual GFR. P.O.C.T. RESULTS: POC done: Yes, See Lab Tab March 12, 2022 TREATMENT: N/A PERIPHERAL IV DATA: Ambulatory: A peripheral IV was started in the Left antecubital site with a Angio cath: 22 gauge. RADIOLOGY DEPARTMENT: CT; Exam(s) Completed: Abdomen/Pelvis SIGNATURE: RT Rylan(R) PATIENT NAME: Madelyn Love DATE: March 12, 2022 TIME: 2:48 PM [facility] 03-12-2022 History of Present illness Narrative Radiology Service Progress Note DATE OF SERVICE: March 12, 2022 TIME: 2:48 PM PATIENT IDENTITY VERIFICATION COMPLETED USING TWO (2) STANDARD IDENTIFIERS: Name and Date of confirmed by patient verbally. FALL SCREENING: Has the patient had 2 falls in the last year or 1 fall with injury or currently using an Ambulatory Assistive Device (Walker, Cane, Wheelchair, Crutches, etc.)? No PATIENT GENDER DATA: Female. status: : No status: NO. PATIENT RELEVANT IMPLANT DATA REVIEWED: Yes ALLERGIES: Reviewed and unchanged CONTRAST ALLERGY: NO. EXAM: CT -CONTRAST INDUCED NEPHROPATHY RISK FACTORS: Patient age > 60 years CREATININE: Creatinine Date Value Ref Range Status 03/12/2022 0.74 0.58 - 0.96 mg/dL Final 12/03/2019 0.58 0.58 - 0.96 mg/dL Final Estimated Glomerular Filtration Rate Date Value Ref Range Status 03/12/2022 84 >=60 mL/min/1.73m Final Comment: Estimated Glomerular Filtration Rate (eGFR) is calculated using the 2020 CKD-EPI creatinine equation. This equation utilizes serum creatinine, sex, and age as parameters. The creatinine assay has traceable calibration to isotope dilution-mass spectrometry. Refer to KDIGO guidelines for clinical interpretation. In patients with unstable renal function, e.g. those with acute kidney injury, the eGFR may not accurately reflect actual GFR. P.O.C.T. RESULTS: POC done: Yes, See Lab Tab March 12, 2022 TREATMENT: N/A PERIPHERAL IV DATA: Ambulatory: A peripheral IV was started in the Left antecubital site with a Angio cath: 22 gauge. RADIOLOGY DEPARTMENT: CT; Exam(s) Completed: Abdomen/Pelvis SIGNATURE: RT Rylan(R) PATIENT NAME: Madelyn Love DATE: March 12, 2022 TIME: 2:48 PM documented in this encounter [facility] 03-03-2022 Note HNO ID: [id number] Author: Renzo Callejas MD Service: ? Author Type: Physician Type: Progress Notes Filed: 03/19/2022 6:38 AM Note Text: HISTORY AND PHYSICAL Madelyn Love 1945 REFERRING PHYSICIAN: Hugo Julio MD CHIEF COMPLAINT: Consult HPI: The patient is a 76 year old female with a complaint of abdominal cramping and morning diarrheal stools. The patient notes a progressive worsening of diarrhea and lower abdominal complaints for the past 2 years. She is now at the point where when she wakes up she has multiple loose stools each morning usually starting with a somewhat formed stool but then progressing to looser stools diarrhea for 2 hours. She states that it now becomes difficult to leave her house most mornings because of the unpredictability of her bowel activity. She states this does not seem to relate to what ever food she eats in the morning. She also notes that she can eat lunch and dinner without having recurrence of the symptoms. She denies nausea or vomiting. she does note acid reflux. She notes degree of loss of stool control in the mornings. She notes no melena or blood in her stools. She denies weight loss. She had undergone a Shani-en-Y gastric bypass and prior cholecystectomy. She also underwent repair of rectocele and cystocele 2 years previously. She saw her surgeon that performed her Shani-en-Y gastric bypass-Dr. Carlos Granados. He most recently saw the patient on January 24, 2022. His diagnosis was malabsorption. He recommended following up with colorectal surgery for her complaint of loose stools and incontinence. She has been followed by gastroenterology-Dr. Marilia Cheung at [facility]. She was last seen by him on March 04, 2022. Patient has been receiving treatment at that location for possible small intestinal bacterial overgrowth. She was given rifaximin from like to January 08. She did not note enough of a change in her symptoms to continue paying for that medication. They had performed a breath test 1 year previously which was felt to be positive for SIBO. She was treated with rifaximin at that time with some improvement. Previously she had been given Flagyl which was discontinued at states when she had a psychotic break while taking long-term steroids for arthritis. She was apparently hospitalized at [facility] for this. 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 She had an upper endoscopy performed on December 02, [address] Wynn which demonstrated some smaller bleeding erosions in the gastric fundus normal jejunum and was felt to have a hiatal hernia? No biopsies were obtained but it was recommended she have follow-up upper endoscopy to evaluate healing of that site. The patient underwent upper GI with small bowel follow-through on November 12, 2018. This demonstrated a moderate sized hiatal hernia and status post subtotal gastrectomy and gastric bypass no other specific abnormalities were noted. The patient had a flexible sigmoidoscopy on June 07, 2019 prior to her rectocele cystocele repair. This was unremarkable. She understands she had a colonoscopy with no abnormalities prior to that. I do not have records of that study. I do not know if random biopsies were obtained. The patient is being seen by me today at the request of Dr. Hugo Julio MD, MD for my opinion and advice regarding diarrhea loose stools abdominal cramping. PAST MEDICAL HISTORY Diagnosis Date Allergic rhinitis, cause unspecified Chronic kidney disease, stage IV (severe) (HCC) Congestive heart failure, unspecified DR. 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 CATARACT EXTRACTION HX Bilateral 2018 CHOLECYSTECTOMY 2013 COLONOSCOPY FLX DX W/COLLJ SPEC WHEN PFRMD 08/11/2006 Colonoscopy GASTRIC BYPASS, SHANI-EN-Y 2013 HYSTERECTOMY 2013 OSTECTOMY CALCANEUS SPUR W/WO PLNTAR FASCIAL RLS 1980 bilateral heels PAST SURGICAL HISTORY OF 07/18/09 heart cath P (more content not included)... [facility] 02-28-2022 Note HNO ID: [id number] Author: Ava River RT(R) Service: Radiology Author Type: Technologist Type: Progress Notes Filed: 02/28/2022 3:50 PM Note Text: Radiology Service Progress Note PATIENT NAME: Madelyn Love DATE OF SERVICE: February 28, 2022 TIME: 3:37 PM PATIENT IDENTITY VERIFICATION COMPLETED USING TWO (2) IDENTIFIERS: Name and Date of confirmed by patient verbally. FALL SCREENING: Has the patient had 2 falls in the last year or 1 fall with injury or currently using an Ambulatory Assistive Device (Walker, Cane, Wheelchair, Crutches, etc.)? No PATIENT GENDER DATA: Female. status: : No status: NO. PATIENT RELEVANT IMPLANT DATA REVIEWED: Yes RADIOLOGY DEPARTMENT: General X-ray: Exam(s) Completed: Abdomen X-Ray: Abdomen PERIPHERAL IV DATA: Not applicable SIGNED BY: RT Coco(R) February 28, 2022 3:37 PM [facility] 02-28-2022 Note HNO ID: [id number] Author: Marcela Paul LPN Service: ? Author Type: ? Type: Progress Notes Filed: 03/14/2022 6:17 AM Note Text: REVIEW OF SYSTEMS: General: The patient denies fatigue, denies weight loss, denies weight gain, denies feeling hot, and denies feelings of cold. Eyes: The patient denies glaucoma, denies eye injury/surgery, wears glasses. Ear/Nose/Throat: The patient denies allergies, denies hayfever, denies ear infections, and denies bloody noses. Cardiovascular: The patient denies chest pain, denies heart disease, denies high blood pressure,denies cardiac stent, denies prior heart attack, denies irregular heart beat, denies high cholesterol, denies poor circulation, denies heart failure, other cardiac issues, denies claudication, denies cold feet, denies peripheral arterial stent. Respiratory: The patient denies tuberculosis, denies pneumonia, denies frequent cough, denies pulmonary embolism, denies shortness of breath, and denies coughing up blood. Gastrointestinal: The patient denies difficulty swallowing, notes acid reflux, denies ulcers, denies vomiting, denies jaundice/hepatitis, denies gallbladder problems, denies black or tarry stools, denies hemorrhoids, denies bleeding from rectum, notes diverticulitis, denies constipation, notes diarrhea, notes loss of stool control, and notes hernias. Kidney/Bladder: The patient denies kidney stones, denies urine infections, and denies bloody urine. Skin: The patient notes a history of skin cancer, denies bleeding/changing moles, and denies a history of skin rash. Neurologic: The patient denies a history of epilepsy/convulsions, denies headaches, denies head/spinal injuries, and denies stroke/TIA. Psychiatric: The patient denies psychiatric medications, denies depression, and denies voices, denies substance abuse. Endocrine: The patient denies thyroid disorders, notes diabetes, and denies hormonal problems. Hematologic: The patient notes a history of bruising, denies bleeding, and notes anemia, denies blood clots. Infections: The patient denies a history of measles and mumps, denies rheumatic fever, and denies sexually transmitted diseases. Musculoskeletal: The patient denies back pain/injury, notes back problems, denies sciatica, denies knee/foot trouble, notes arthritis, or notes gout. When was patient's last Mammogram screening? Unknown Last Colonoscopy: Unknown Marcela Paul [facility] 01-24-2022 Evaluation note Encounter Date Diagnosis Assessment Notes Dec, Anemia, unspecified (ICD-10 - D64.9) Dec, Malabsorption (ICD-10 - K90.9) Reviewed the required supplementation for life. Check labwork in one year. Dec, Vitamin B12 deficiency (ICD-10 - E53.8) Dec, History of bariatric surgery (ICD-10 - Z98.84) Madelyn has done an excellent job of maintaining her weight for almost 10 years s/p RYGB. We discussed strategies to maximize fullness, continue to consume appropriate quantity of protein,stay regular. She and her asked many questions that were more related to her incontinence than her RYGB anatomy. I recommended following up with the colorectal surgeon that operated on her or her GI. [facility]. Other 02-12-2022 NoteDischarge Summary Madelyn Love : 1945 ADMIT DATE: 07/09/2021 DISCHARGE DATE: 07/14/2021 PRIMARY CARE PHYSICIAN: No primary care provider on file. VISIT STATUS: Admission CODE STATUS: Full Code DISCHARGE DIAGNOSES: Active Problems: Hyponatremia Acute metabolic encephalopathy History of fall Dysuria Cognitive deficits Type 2 diabetes mellitus without complication, without long-term current use of insulin (HCC) Hypocalcemia Secondary hyperparathyroidism (HCC) Resolved Problems: * No resolved hospital problems. * HOSPITAL COURSE: 75 year old female with a PMH of HTN, history of gastric bypass surgery, chronic back pain, type 2 DM presenting with 5 days of confusion, altered mentation, very fidgety, concern for hallucinations (auditory). -Per my conversation with patient's , KATI at bedside, he stated that the patient started getting confused on Friday, states that she started having auditory hallucinations, was talking to God and talking about things that were not making sense. He states that her confusion has been worsening since Friday. He states that prior to Friday, she was feeling fine and there were no concerns. Currently per her , she has not been complaining of anything, however keeps taking her clothes off and is very fidgety. Her states that she tested positive for COVID-19 around 11 days ago, however the only symptoms she had were sinus drainage and congestion. ? He states that normally she is alert and oriented x3, does not have any acute issues. He states that she has a history of type 2 diabetes, chronic back issues. States that last year she had similar confusion, which was deemed to be secondary to steroids. This was around December 2020. ? - Vitals: Blood pressure 148/68, pulse 73, respiratory rate 18, temperature 96.7, pulse ox 99 on room air. - Labs: Sodium 107, chloride 76, BUN 19, creatinine 0.49, glucose 138, calcium 8.2. ? Patient was initially admitted to ICU for severe hyponatremia and endocrine was also consulted. Please see below for a summary of all her diagnosis/management during her stay here at [facility]: # Acute metabolic encephalopathy-began with confusion, auditory hallucinations, restlessness/figeting ~ 07/06/21 - had similar episode 12/2020, pt in [place], per Care Everywhere discharge summary on 01/08/21: Hyperactive delirium: Likely multifactorial with contributions from recent corticosteroid use and signs of concurrent urinary tract infection ?(note sodium normal range at that time). Mental status currently remains stable, much improved ? # Severe Hyponatremia - severe, 107 on admission, started on 3% NS, quick rise, changed to D5, then quick drop. Takes lasix ?2 times/week per home med rec. Drinks 96 oz of decaffeinated liquids per day -->pt verified because I had that gastric bypass surgery and I'm supposed to do that. Follows with endocrinology for this per . In ICU, Dr. Wallace was not able to reach or leave message. Called PCP office, spoke with RN who states low sodium listed in chart, pt does see endocrinology but they have no correspondence from that physician in their charts. states pt DOES see Dr. Puga, not just for DM but for her sodium--> also showed Dr. Wallace a lab order sheet from Dr. Puga and wanted her to have all the labs drawn, the only one not drawn this admission was PTH-->drawn, see below (labs was faxed to Dr. Puga's office per 's request and copy given to ). Dr. Wallace discussed with Dr. Chiu -->this appears to be related to volume/fluid intake plus furosemide daily, pt usually drinks 2.8 liters fluid/water per day, limited to 1.8 liters her and feels ok . Sodium now much better and continues to improve.Better to hold diuretic if not needed , If diuretics are being resumed , this is to be done with caution and careful monitoring of labs. Endocrine statesbetter to hold diuretic if not needed , If diuretics are being resumed , this is to be done with caution and careful monitoring of labs. Will DC lasix and NOT prescribe on discharge. ? # Elevated PTH -c/w hypocalcemia, appreciate endocrine input ? 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 # Chronic HTN - amlodipine 7.5 mg daily(per [facility] dc summary 5 mg daily), Coreg 6.25 mg bid (per [facility] dc summary 12/2020 was increased to 12.5 mg bid), Losartan 50 mg daily-->restarted yesterday 07/12 at 1/2 home dose,?increase back to home dose of 50 mg appropriate, Lasix 20 mg DAILY, took twice per week for swelling until recently but now takes daily-->ON HOLD ? # Dysuria--> UTI - urine studies obtained when pt began having symptoms showed pyuria and now urine culture + >100,000 klebsiella?(pt did not have willett catheter). On PO augementin (plan 5 day (more content not included)...[facility]10-04-2021 History of Present illness Jerilyn is a pleasant 76-year-old female has been a rather difficult therapeutic challenge at times. She has underlying IBS has been treated for multiple occasions with SIBO. Breath testing performed 1 year ago was positive she was treated at that time with Xifaxan with improvement. Prior treatment with low-dose Flagyl was discontinued when she had a psychotic break while taking long-term steroidsfor arthritis. She was actually hospitalized at [facility] in [place] and is now recovered. She does have mild early dementia which is controlled with Aricept. She is accompanied by her today. She is currently being evaluated by Dr. Alexandre at [facility] for possible takedown of her bariatric surgery because of persistent abdominal discomfort. Presently she is having severalloose stools every morning. She starts with a somewhat formed stool then progresses to diarrhea over 2 hours. She states is becoming difficult for her to leave the house before noon because she has unpredictable bowel movements. After she empties her bowel out in the morning she is rather stable throughout the rest of the afternoon. She denies any rectal bleeding. Patient underwent repair of rectocele and cystocele 2 years ago prior to surgery sigmoidoscopy was performed in March 2020 for rectal bleeding and found to have internal hemorrhoids.[facility] [place] [address] Work Phone: [phone]) 693-538508-09-2021 Hospital Discharge instructions* Instructions* Simeon Grewal MD - 01/08/2021 Images from the original note were not included. You were hospitalized for changes in your thinking that were caused by taking steroids (prednisone)and because you have evidence of a urinary tract infection (UTI). You have showed continued improvement and can continue to improve at home. Take 2 more doses of antibiotics for UTI, one pill tonight and tomorrow morning. You should see your primary care doctor soon, so keep your appointment for this afternoon. He can provide further recommendations for ongoing care. You should not take any more tramadol, this can also make delirium worse. Your blood pressure was high while you were in the hospital, we provided your home medications. Theonly change is that we gave you 12.5mg of carvedilol (AKA Coreg) twice per day instead of your homedose of 6.25mg twice per day. Learning About Delirium What is delirium? Delirium is a sudden change in mental condition. It leads to confusion and unusual behavior. Delirium is also called acute confusional state. Delirium affects all age groups. It can result from problems that affect the brain, such as stroke.It can also happen after an infection or when using certain medicines. Pain may also cause the problem. Seeing delirium in a loved one can be scary and sad. But it will go away most of the time. It usually lasts hours to days. The doctor will look for a cause and take steps to treat it and keep your loved one comfortable. What are the symptoms? Symptoms of delirium usually develop over several hours to a few days. Symptoms may change and be more or less severe. Symptoms include: A short attention span. Confusion. This is not knowing where you are, what time it is, or who others are. Hallucinations. This usually is seeing or hearing things that are not really there. Delusions. This is believing things that aren't true. Illusions. This is making a mistake in what you think is real. For example, you think a child is crying, but it's a pillow. Disorganized thinking. How is delirium treated? The doctor may: Find and treat the cause. This could be: ? Not getting enough fluids. ? An infection. ? A medicine or combination of medicines. ? Another medical problem. Prescribe a medicine. Make the hospital room as quiet as possible. You may be able to help your loved one by being present and talking to and touching him or her. Follow-up care is a hope part of your treatment and safety. Be sure to make and go to all appointments, and call your doctor if you are having problems. It's also a good idea to know your test resultsand keep a list of the medicines you take. Where can you learn more? Go to [email or web address]. Enter Z511 in the search box to learn more about 'Learning About Delirium.' Interested in seeing a video go to [email or web address] to see all video content. Current as of: February 23, 2020 Content Version: 12.9 [employer]. Care instructions adapted under license by your healthcare professional. If you have questions about a medical condition or this instruction, always ask your healthcare professional. [employer] disclaims any warranty or liability for your use of this information. documented in this encounterOS[facility] Miscellaneous Notes* Nursing Notes - Bella Guevara RN - 01/08/2021 11:08 AM EDT PIV removed. Belongings all packed. AVS supplied to patient and . All questions reviewed. MyChart set up. Information faxed to PCP per patient request. * Certification - Vern Rubio MD - 01/05/2021 3:57 PM EDT I certify that this patient requires inpatient services at this time. I anticipate the expected length of stay will include at least two midnights. Inpatient services are due to the following medicalconcerns delirium, delusions concerning for psychosis, UTI . Plans for post hospitalization care will be discharge to home. * Nursing Notes - Bella Guevara RN - 01/05/2021 10:00 AM EDT Images from the original note were not included. Patient , KATI and daughter, Lulu at bedside. provided staff with Living Will and POApaperwork. also provided 5 prescriptions for the patient that he states were recently prescribed on December 27. Paper worked faxed into [employer] system. The 5 scripts that were provided by patient listed below and faxed into [facility]: * Nursing Notes - Que Prescott RN - 01/05/2021 2:48 AM EDT On admission to [facility], from ED a dual RN initial assessment of skin condition was performed by Que Prescott RN and Ave Spencer RN. Patient was oriented to call light system. Skin Assessment: Skin within defined limits:Yes Kyree Score: 21 LDA Added:No Que Prescott RN documented in this encounterOSU [facility]08-[facility] Hospital course Narrative* Simeon Grewal MD - 01/08/2021 7:41 AM EDT Discharge Summary Name: Madelyn Love Age: 75 y.o. Birthday: 1945 Admit Date: 01/04/2021 1:10 PM Discharge Date: 01/08/2021 Discharge Service: [facility] Discharge Unit: [facility] Total duration of encounter: 4 days Admission Information Admitting Physician: Vern Rubio MD Discharge Information Discharge Physician: Marlon Sheets MD Problem List Active Hospital Problems Diagnosis Essential hypertension, benign Osteoarthritis Allergic rhinitis Acute cystitis without hematuria Delirium Psychosis Resolved Hospital Problems No resolved problems to display. DISCHARGE LETTER: Dear Doctors, I recently had the opportunity to care for Madelyn Love during her recent hospital stay at [facility]. As you may know, Madelyn Love, is a 75 y.o. female with a past medical history significant for hypertension, gastric bypass, and hip/knee replacements who presented at the time of admission with new delusions and hyperactive delirium. Her admission history of present illness is as follows: For months preceding admission, Madelyn has had sinus trouble interfering with sleep and failing multiple courses of treatment. Her longtime PCP has been working to improve her symptoms. Starting 12/27, she was prescribed a prednisone burst and doxycycline for 5 days. She completed this treatment. Over the weekend--day 3 to 4 of treatment--her started noticing abnormal behaviors, forgetfulness, and strange comments. She would forget to cook a hot dog and serve it to him, or avoid physicaltherapy appointments that she typically goes to, and make comments about the second coming and God wants me to stay home and be at peace. She's never had anything like this before. She has no psychiatric history whatsoever. She has not explicitly heard any voices or seen any hallucinations, shemore gets the feeling of God saying these things. Over the course of the week, she has had a significant workup, medical and psychiatric, which culminated in an inpatient psychiatric admission. Vielka steele, her family preferred her to be admitted to a hospital that could address both the medical and psychiatric aspects of her care, and she ended up in the [facility] ED because her daughters live in [place]. She has denied physical symptoms of any kind. She denies abdominal pain, dysuria, hematuria. Shehas had UTI's in the past that have resolved quickly with outpatient antibiotics. In the [facility] ED, CThead was normal and a urinalysis was suggestive of infection (>20WBC, moderate Leuk Est). She was given ceftriaxone and admitted to the floor. Her problem-based inpatient course and management: Hyperactive Delirium: Likely multifactorial with contributions from recent corticosteroid use and signs of a concurrent urinary tract infection; though only symptom was the altered mentation. She hasshowed consistent, though slow improvement. She was evaluated by psychiatry team in house who agreed with delirium and did not feel further psychiatric workup or psych admission was indicated. She remained pleasant but activated, hypomanic with normal orientation but occasional abnormal/bizarre comments that are largely spiritual in nature. Per family who was frequently present, she was improving, but not yet returned to baseline. Delirium precautions while admitted with shared decision that further improvement would best occur at home in a familiar environment. Uncomplicated Urinary Tract Infection: see above. UA on admission with moderate LE, >20 WBCs. While asymptomatic (no frequency, dysuria) may be contributing to confusion, activation. Thus, opted to treat with five day course of ceftriaxone, transitioned to bactrim at discharge (01/04-01/09). - Bactrim q12h for 2 doses at discharge. - culture revealed mixed skin emi. Chronic Conditions: HTN: Slowly re-introduced home coreg (increased to 12.5 BID and losartan 100mg daily, and home amlodipine 5mg. History of gastric bypass: Creon 18,000U TID with meals Physical Exam on the Date of Discharge: Vitals: 01/08/21 0607 BP: 154/74 Pulse: 63 Resp: 14 Temp: 97.8 F (36.6 C) Wt Readings from Last 1 Encounters: 01/05/21 59.9 kg (132 lb 0.9 oz) Gen: Alert&Orientedx4. No acute distress. Pleasant and activated. CV: Regular rate and rhythm, gallops, or rubs, no edema; systolic murmur audible at times this admission. Resp: Clear to auscultation bilaterally, no wheezes or rhonchi, normal respiratory effort GI: Soft, non-tender, non-distended, normal BS Psych: activated, speech mildly pressured, comments I feel much better, everything is just flowing out of me. No hallucinations or SI/HI. Body mass index is 28.08 kg/m . Diet was DIET REGULAR Upon discharge the patient's code status Full Code It has been my pleasure participating in this patient's care. Please contact me with any questions or concerns regarding her hospital stay. Sincerely, Simeon Grewal MD PGY-3, Internal Medicine/Pediatrics [facility] FURTHER RECOMMENDATIONS: Follow up systolic murmur as outpatient CONSULTS DURING ADMISSION: IP CONSULT TO PSYCHIATRY IP CONSULT TO PHYSICAL THERAPY IP CONSULT TO OCCUPATIONAL THERAPY IMAGING / PROCEDURES / RESULTS: CT HEAD WITHOUT CONTRAST Final Result IMPRESSION: No acute intracranial findings on noncontrast head CT. CHEST AP PORTABLE ED Final Result IMPRESSION: No focal consolidation identified. Should you require further information or copies of results or reports please contact Medical Information Management @ [phone] LABS AT TIME OF DISCHARGE: Lab Results Component Value Date SODIUM 136 01/05/2021 POTASSIUM 3.6 01/05/2021 MAGNESIUM 2.1 01/05/2021 BUN 16 01/05/2021 CREATSERUM 0.61 01/05/2021 Lab Results Component Value Date WBC 5.49 01/05/2021 HGB 11.3 (L) 01/05/2021 PLATELET 270 01/08/2021 INR 0.9 01/04/2021 No results found for: HGBA1C RESULTS / STUDIES PENDING AT DISCHARGE: Vitamins A, D, E, K. PATIENT'S MEDICAL HOME AT DISCHARGE: Hugo Julio [address] / [facility] [id number] No discharge procedures on file. Medications: Medication List for when you go home ASK your doctor about these medications amLODIPine 5 MG TABS Take 5 mg by mouth daily. Commonly known as: NORVASC carveDILOL 6.25 MG TABS Take 6.25 mg by mouth 2 times daily with meals. Commonly known as: COREG furOSEmide 20 MG TABS Take 20 mg by mouth 2 times daily. Commonly known as: LASIX losartan 50 MG TABS Take 100 mg by mouth daily. Commonly known as: COZAAR Pancreatic enzymes [id number] capsule Take by mouth 3 times daily with meals. Commonly known as: CREON traMADol 50 MG TABS Take 50 mg by mouth every 6 hours as needed. Commonly known as: ULTRAM Follow-up: Hugo Julio MD [address] [facility] [id number] Go today Associated attestation - Marlon Sheets MD - 01/08/2021 5:11 PM EDT Attending GC I am the attending physician of record. I have seen and examined the patient with the resident and was present for hope portions of the history and exam. We have reviewed all pertinent history, lab values, and physical exam findings. I agree with the assessment and plan as described by the resident.The date and time of the exam was 01/08/21 approximately 8:50 AM. Ms. Love is a 75 yo female with history of HTN. Here for acute delerium after a recent course of steroids. Treated for UTI. She is improved on discharge. Present on Admission: Psychosis Essential hypertension, benign Osteoarthritis Allergic rhinitis Acute cystitis without hematuria Lab Results Component Value Date WBC 5.49 01/05/2021 HGB 11.3 (L) 01/05/2021 HCT 34.9 01/05/2021 PLATELET 270 01/08/2021 MCV 94.3 01/05/2021 Lab Results Component Value Date SODIUM 136 01/05/2021 POTASSIUM 3.6 01/05/2021 CHLORIDE 102 01/05/2021 CO2 25 01/05/2021 BUN 16 01/05/2021 CREATSERUM 0.61 01/05/2021 Lab Results Component Value Date ALT 21 01/04/2021 AST 18 01/04/2021 ALKPHOS 53 01/04/2021 BILITOTAL 0.5 01/04/2021 BILIDIRECT 0.1 01/04/2021 No results found for: CRP No results found for: SEDRATE [facility]* Chidi Burdick MD - 01/07/2021 5:25 PM EDT PSYCHIATRY CONSULT FOLLOW-UP NOTE 01/07/2021 Madelyn Love : 1945 SUBJECTIVE Pt met at bedside with family present, friendly and agreeable throughout encounter. Pt continues toexpress spiritual themes, stating that she has been having positive AH/VH of angels as well as darker hallucinations with satanic/demonic features. Feels that the darker voices/themes worsen at nightand the more nayely themes are predominant throughout the day. She is oriented to self, location, date, but not quite to situation. Says her mood is happy and her sleep/appetite are good. Denies SI/HI, but does state that sometimes she feels like scratching her eyes when the demonic themes are present. States she is very pleased with her care and does not have any concerns at this time. Met with pt's , who was present at the bedside. States that pt is slowly but progressively improving. She continues to experience cycles of highs and lows in her mood and behavior, but thesehighs and lows are lessening in frequency and intensity. He expresses some surprise over pt's comments about wanting to scratch her eyes in response to the demonic themes, but he has no concerns about her safety here and particularly after discharge since their home and community are already well structured to provide her 24/7 support and observation. He adds that pt has experienced urinary urgency lately but is hopeful this will continue to improve with antibiotics. He expresses no additional concerns or needs at this time. Madelyn Love's review of systems today is positive for problems with perceptual disturbances. All other systems were reviewed and are negative. OBJECTIVE Appearance: appropriate Attention: alert, attends to questioning Orientation: person, place and time Interview Behavior: cooperative Attire: gown Grooming: appropriate Eye Contact: good Mood: happy Affect: euphoric, constricted Motor Activity: no PMR/PMA. No tremors, muscle weakness, muscle rigidity/stiffness/abnormal tone, clonus, abnormal involuntary muscle movements or seizure activity were noted. Speech: normal and soft Thought Process/Associations: fixates on spiritual themes Suicidal Ideation: denied by patient Homicidal Ideation:denied by patient Delusions: none elicited Hallucination: endorses AH and VH of angels as well as demons (see HPI) Memory: impaired recent and remote Insight/Judgment: none Impulse Control: intact at time of assessment Fund of Knowledge: intact to conversation Language/Vocabulary: intact to conversation Cognition: impaired Vital Signs: Blood pressure 165/70, pulse 76, temperature 98.4 F (36.9 C), temperature source Oral,resp. rate 14, height 1.461 m (4' 9.5), weight 59.9 kg (132 lb 0.9 oz), SpO2 97 %. Scheduled Medications: amLODIPine (NORVASC) tablet 5 mg, 5 mg, Daily carveDILOL (COREG) tablet 12.5 mg, 12.5 mg, BID w/meals cefTRIAXone (ROCEPHIN) 1 g in dextrose 50ml premix IVPB, 1 g, Q24H enOXAParin (LOVENOX) injection 40 mg, 40 mg, Q24H losartan (COZAAR) tablet 100 mg, 100 mg, Daily Pancreatic enzymes (CREON) delayed release capsule 18,000 Units, 18,000 Units, TID w/meals PRN Medications: acetaminophen, 650 mg, Q6H PRN melatonin, 6 mg, QHS PRN sodium chloride 0.9%, 250 mL, PRN Labs/Diagostic Studies: No results found for this or any previous visit (from the past 24 hour(s)). IMPRESSION 01/07/21: pt continues to fixate on spiritual themes without fixed beliefs consistent with prior documentation, but is progressively improving per collateral report from who has been consistently engaged at the bedside. When asked about self injurious thoughts pt expressed thoughts of scratching herself when demonic perceptual disturbances are present, though does not have concern about pt's ability to stay safe while in the hospital or after returning home as he illustrates theirability to provide 24/7 observation and support in the period following hospitalization. Recommend continuing video sitter and all other prior recommendations at this time. Altered Mental Status Delirium R/o Medication-induced psychosis R/o Medication-induced elvin R/o Cognitive Decline RECOMMENDATIONS Safety: -Agree with continuing video sitter. Medications: - Rec no steroids - Rec consider stopping Flagyl as OP as this is known to cause increased risk for delirium Non-pharmacologic: - The best treatment for delirium is to treat the underlying medical problems. - Non-pharmacologic evidence-based treatment of delirium includes: - Ensure proper hydration - Repeated reorientation - Promotion of good sleep hygiene - Room with a window- keep blinds open during daylight hours, orientation may improve with outside-facing window. - Early mobilization - Correction of electrolyte abnormalities - Removal of unnecessary attachments (willett catheter, peripheral IV's, NG tubes or other sources ofinfection) - Maximizing nutrition - Using sensory aids (glasses, hearing aids); Recommend obtaining pt's glasses and having him use them if agreeable to aid in sensory perception - Minimizing unnecessary noise and stimuli. - Regarding pharmacology, avoid anticholinergic drugs and benzodiazepines to the extent possible. Opiates can cause and worsen delirium, but untreated pain can as well. Low dose antipsychotics can help. Please bear in mind that antipsychotics can lower seizure threshold and prolong QTc. - We recommend identifying a surrogate decision maker who can assist when needed. Consultations/Referrals/Follow-Up: - Pt does not warrant IP Psychiatric admission at this time. Associated attestation - Prakash Ceballos MD - 01/07/2021 7:57 PM EDT I discussed this patient on the date of service with Chidi Burdick MD. I agree with the history, examination, and medical decision making as outlined, however I did not directly interact with or examine this patient. Prakash Ceballos MD documented in this encounterAv[facility] History of Present illness Narrative* Cayla Sanchez, OT - 01/07/2021 3:43 PM EDT Images from the original note were not included. Acute Occupational Therapy Evaluation Prior to Admission AM-PAC Score: PRIOR LEVEL AM-PAC Activity Raw Score: 24 Current AM-PAC score(s): CURRENT AM-PAC Activity Raw Score: 21 Based on the above AM-PAC score(s) and OT clinical judgment, discharge destination recommendation is: Home Discharge Barriers: Patient needs assistance with ADLs, Patient needs assistance with IADLs (see note below), Patient needs assistance with medication management, Cognitive impairments that impact safety (see note below) Mobility equipment available at home: wheeled walker, straight cane ADL equipment available at home: shower bench, grab bars (Doesn't Use) Equipment recommendations for discharge: Current therapy frequency recommendation(s) in acute: 2 times a week Precautions and Weightbearing Status: Patient Safety Communication Prior to Visit: Nursing Left Upper Extremity: full weight bearing Right Upper Extremity: full weight bearing Left Lower Extremity: full weight bearing Right Lower Extremity : full weight bearing Subjective: Pt agreed to session Pain: General Pain Documentation (Adult, OB, Peds) Presence of Pain: complains of pain/discomfort Pain Location: shoulder, right DVPRS (Defense and Veterans Pain Rating Scale) DVPRS: Rest: 3- mild pain DVPRS: Activity: 3- mild pain Home Setting Residence: House Lives With: spouse First floor setup: bedroom, walk-in shower Number of stairs to enter home: 2 Stair Railings at Home: entry - present on right side (ascending) Mobility Equipment Available: wheeled walker, straight cane ADL Equipment Available: shower bench, grab bars (Doesn't Use) Home Environment Details: The patient lives in a 1 story home with her in [place], [place]. Daughter lives in [place]. She has two steps to enter home through garage. Previous Level of Function Prior level ADL Overview: Independent with all ADLs Bed Mobility/Transfers: independent Ambulation status: WFL Ambulation Skills: independent Assistive Device: none used Level of Ambulation: community IADL History IADL Comments: spouse assists/supervises pt with IADLs (meds, driving) Objective/Observation: Vitals/Vitals Responses to Treatment: VSS Vision Screen Currently wearing corrective lenses: Yes, Near, Distance Speech Speech: no gross deficits noted Successful Methods (Communication Strategies): verbal speech Hearing Hearing: hearing aids Cognition Overall Cognitive Status: Impaired Arousal/Alertness: Appropriate responses to stimuli Orientation Level: Oriented to person, Oriented to place (pt asked orientation x2; First time pt AOx4, second time (10 minutes later) Pt thought is was September 13, 2001 and she was at the [employer]) Following Commands: Follows one step commands with increased time Safety Judgment: Good awareness of safety precautions Awareness of Errors: Decreased awareness of errors, Assistance required to identify errors made Deficits: Decreased awareness of deficits Attention Span: Appears intact Memory: Decreased short term memory, Decreased recall of recent events, Decreased recall of biographical information Problem Solving: Assistance required to generate solutions, Assistance required to implement solutions Cognition Comments: pt encountered and AOx4 and appropraite. Pt needed 10 minutes before performingmobility, when OT returned pt AOx2 and during conversation pt was convinced she was at the [employer] and almost walked into the wrong room even though she was told the correct room number minutes before ADLs: ADL Anticipated Performance (ADLs not directly observed this session): Eating, Grooming, Bathing, UE Dressing, LE Dressing, Toileting Eating Assistance: Independent Grooming Assistance: Independent Bathing Assistance: Stand by UE Dressing Assistance: Independent LE Dressing Assistance: Stand by Toilet Assistance: Supervision Extremity Assessments: RUE Assessment RUE Assessment: Within Functional Limits LUE Assessment LUE Assessment: Within Functional Limits Balance: Sitting Balance Static Sitting-Level of Assistance: Independent Dynamic Sitting-Level of Assistance: Independent Standing Balance Static Standing-Level of Assistance: Independent Dynamic Standing-Level of Assistance: Independent Neuro: Sensation Overall Sensation: Intact Skin and Edema: Mobility Assessment: Transfer Assessment: Sit to Stand Transfer [place] Level: Sit->Stand: independent Stand to Sit Transfer [place] Level: Stand->Sit: independent Functional Mobility: Gait Assessment [place] Level: Gait: supervision Assistive Device: Gait: hand held assist Skilled Intervention/Details - Gait: Pt performed community distance in hallway and needed increased cues and assist for navigating back to room;pt almost returned to wrong room and needed increased cues for room number Outcome Score(s): Mini-Cog Score: 3 CURRENT [facility] Daily Activity Inpatient Short Form Putting on/Taking Off Lower Body Clothin - A Little Assistance Bathin - A Little Assistance Toiletin - A Little Assistance Putting on/Taking Off Upper Body Clothin - No Assistance Groomin - No Assistance Eatin - No Assistance CURRENT [facility] Activity Raw Score: 21 CURRENT [facility] Activity Functional Limitation/Modifier: 32.79% Currently Impaired in Daily Activity- CJ Interventions: Assessment & Plan: Patient was admitted for delirium, psychosis and seen for therapy evaluation related to optimal independence in self care and functional mobility. Exam findings include endurance, cognitive impairments. These impairments contribute to occupational performance limitations including home management tasks, driving/transportation, shopping/errands,community integration, dressing, bathing. The following factors impact the plan of care: 75 y.o. female with a history of hypertension, multiple MSK surgeries, gastric bypass surgery, who is admitted for acute delirium and delusions.. Patient will benefit from skilled occupational therapy to address these impairments, occupational performance limitations, and participation restrictions. Patient's rehab potential is: excellent. Planned Therapy Interventions (OT Eval): cognitive training Patient Instruction/Education this session: Patient Instruction: role ot,poc Plan for next session: monitor cognitive status OT Care Plan & Goals (Active) OT - ADLs Dates: Start: 01/07/21 Bathing Dates: Start: 01/07/21 Expected End: 01/21/21 Description: Pt will perform full body sponge bathing routine with independence while seated for improved ability to complete self-care activities. OT - Cognition Dates: Start: 01/07/21 Cognition Home Maintenance Dates: Start: 01/07/21 Expected End: 01/21/21 Description: Pt will complete simulated home maintenance task (medication management, finance management, etc.) with supervision to promote safety and success at discharge destination. Cognition simple ADL Dates: Start: 01/07/21 Expected End: 01/21/21 Description: Pt will demonstrate improved cognition, completing simple ADL task for 8 minutes with no cues required to maintain attention, for improved safety and success at discharge destination. Evaluating Therapist: Cayla Sanchez OT Additional Details: Co-evaluation/co-treatment performed?: No simultaneous treatment performed I used facemask, protective eye shield, and gloves in today's patient interaction. OT Evaluation Complexity Occupational Profile and Client History: Moderate - expanded history Assessment of Occupational Performance: Moderate (3-5 performance deficits) Clinical Decision/Performance Deficits: Moderate (detailed assessments w/several treatment options) Time In: 834 Time Out: 903 Total Visit Time: 29 minutes Total Treatment Time: 18 minutes Patient location at end of session: chair Alarms on at end of session: none Needs in reach. Upon discontinuation of Acute Care Occupational Therapy Services or patient discharge from the hospital this note represents the current Occupational Therapy Discharge Summary. * Simeon Grewal MD - 01/07/2021 6:48 AM EDT Internal Medicine Daily Progress Note Patient: Madelyn Love, 1945, [id number] Physician: Simeon Grewal MD, PGY3, Gen Med 8 Subjective/Interval History: No acute events overnight. Endorses feeling very well and is still activated and fixated on spiritual bliss. No overnight events. Objective: Vitals: 01/07/21 1438 BP: 165/70 Pulse: 76 Resp: 14 Temp: 98.4 F (36.9 C) O2 Device: room air (01/07/21 1438) Gen: NAD, well-appearing, sitting up in chair HENT: NCAT, EOMI, MMM Cardio: RRR, normal S1/S2, systolic murmur at left sternal boarder Resp: Clear to auscultation bilaterally, no increased WOB GI: Soft, NT, ND, bowel sounds present MSK: No joint swelling or erythema Ext: Warm and well-perfused, no LE edema Neuro: Alert and oriented to self, place, day of the week, month, and year.She is moving all four extremities spontaneously. Psych: Appears activated. Very cheerful. Some tangential comments. Mood: So good. Stable perseveration from yesterday. Data Review: No new labs or imaging. Assessment/Plan: Madelyn Love is a 75 y.o. female with a history of hypertension, multiple MSK surgeries, gastricbypass surgery, who is admitted for acute delirium and delusions. Hyperactive Delirium: Slowly improving. Appears to be medication-related, likely secondary to recent steroid. UA on admission suggestes UTI. While she is asymptomatic, it may be contributory and is being treated (below). - Avoid further deliriogenic meds - No concerns for safety. Video sitter due to concerns for impulsivity. - Non-pharmacologic delirium precautions. Now in yamile-side room. Low threshold to have 1:1 sitter - Consider medical hold if concern for elopement - Psychiatry consulted - Checking fat soluble vitamin levels: normal - No steroids, flagyl, deliriogenic medications Uncomplicated Urinary Tract Infection: UA on admission with moderate LE, >20 WBCs. While asymptomatic (no frequency, dysuria) may be contributing to confusion, activation. Thus, opt to treat. - Culture with mixed skin emi. - Ceftriaxone q24h (at 1700) (01/04- ___) - Plan to narrow based on culture results. Plan for 5 day course - transition to oral Bactrim at discharge. Chronic Conditions: HTN: On home coreg 6.25 BID and losartan 100mg daily, recently filled amlodipine 5mg - Coreg 12.5mg BID today, add back home amlodipine 5mg daily. History of gastric bypass: Creon 18,000U TID with meals DVT PPX: Lovenox Diet: DIET REGULAR Code Status: Full Code, discussed with POA on admission. Disposition: Anticipate home with [facility] after work up of delirium, clinical improvement. Discussed with team and attending, Vern Rubio, *, on rounds. Signed, Simeon Grewal MD Associated attestation - Vern Rubio MD - 01/07/2021 9:13 PM EDT Attending Addendum (GC): This patient was discussed, examined, and evaluated with the resident physician on the day of the encounter. I have independently confirmed essential components of the medical history and the physical examination. I agree with the above therapeutic plan, with the following addendum: Madelyn Love appears stably activated. Oriented x4, but still some bizarre thoughts/preoccupations Labs reviewed, most notable for stable chem and CBC,normal vitamin B12 and folate. Plan today includes: - Add amlodipine - Continue IV ceftriaxone for now for UTI pending culture results, transition to bactrim at discharge - PT/OT recommending home - at this point feel that her delirium is likely to improve faster in a familiar environment, so would like to discharge soon Patient was seen and discussed with bedside RN today. Problem list includes: Active Problems: Delirium Psychosis Allergic rhinitis Essential hypertension, benign Osteoarthritis Acute cystitis without hematuria Vern Rubio MD [employer] General Internal Medicine Pager #[phone] 01/07/21 9:11 PM * Pricilla Quezada MD, PhD - 01/06/2021 2:43 PM EDT Internal Medicine Daily Progress Note Patient: Madelyn Love, 1945, [id number] Physician: Pricilla Quezada MD, PhD, PGY1, Pager #[phone], Gen Med 8 Subjective/Interval History: No acute events overnight. Psychiatry evaluated yesterday. Continues to be activated and perseverate on hindu and being brought home. She is cheerful and in no distress. Seems somewhat improved from previous days per nursing and family, though will waxing and waning. She denies pain, headache,SOB. This afternoon reported some right shoulder pain. Tender to palpation of trapezius. She thinks she slept funny. Tylenol and heat for pain given. Up and ambulating santos with . Objective: Vitals: 01/06/21 1432 BP: 175/77 Pulse: 80 Resp: 15 Temp: 97.8 F (36.6 C) O2 Device: room air (01/06/21 143) Gen: NAD, well-appearing, sitting up in chair HENT: NCAT, EOMI, MMM Cardio: RRR, normal S1/S2, systolic murmur at left sternal boarder Resp: Clear to auscultation bilaterally, no increased WOB GI: Soft, NT, ND, bowel sounds present MSK: No joint swelling or erythema Ext: Warm and well-perfused, no LE edema Neuro: Alert and oriented to self and place, but gives months as september and season as laura. She is moving all four extremities spontaneously. Psych: Appears activated. Very cheerful. Some tangential comments. Mood: So good. Less perseveration than yesterday. Data Review: No new labs or imaging. Assessment/Plan: Madelyn Love is a 75 y.o. female with a history of hypertension, multiple MSK surgeries, gastricbypass surgery, who is admitted for acute delirium and delusions. Hyperactive Delirium: Slowly improving. Appears to be medication-related, likely secondary to recent steroid. UA on admission suggestes UTI. While she is asymptomatic, it may be contributory and is being treated (below). - Avoid further deliriogenic meds - No concerns for safety. Video sitter due to concerns for impulsivity. - Non-pharmacologic delirium precautions. Now in yamile-side room. Low threshold to have 1:1 sitter - Consider medical hold if concern for elopement - Psychiatry consulted - Checking fat soluble vitamin levels - No steroids, flagyl, deliriogenic medications Uncomplicated Urinary Tract Infection: UA on admission with moderate LE, >20 WBCs. While asymptomatic (no frequency, dysuria) may be contributing to confusion, activation. Thus, opt to treat. - Culture with mixed skin emi. - Ceftriaxone q24h (at 1700) (01/04- ) - Plan to narrow based on culture results. Plan for 3-5 day course- Likely transition to oral Bactrim at discharge. Chronic Conditions: HTN: On home coreg 6.25 BID and losartan 100mg daily. Hypertensive of these medications here. - Increase Coreg to 12.5mg BID today. History of gastric bypass: Creon 18,000U TID with meals DVT PPX: Lovenox Diet: DIET REGULAR Code Status: Full Code, discussed with POA on admission. Disposition: Anticipate home with [facility] after work up of delirium, clinical improvement. Discussed with team and attending, Vern Rubio, *, on rounds. Signed, Pricilla Quezada MD, PhD Associated attestation - Vern Rubio MD - 01/07/2021 11:44 AM EDT Attending Addendum (GC): This patient was discussed, examined, and evaluated with the resident physician on the day of the encounter. I have independently confirmed essential components of the medical history and the physical examination. I agree with the above therapeutic plan, with the following addendum: Madelyn Love appears stably activated. Per family her fluctuations in mental status seem to be improving. Hemodynamically stable, though hypertensive at times. . Labs reviewed, most notable for stable chem and CBC, urine culture with mixed emi Plan today includes: - Check labs per psychiatry - Increase carvedilol - Continue IV ceftriaxone for now for UTI pending culture results, transition to bactrim at discharge - PT/OT recommending home - at this point feel that her delirium is likely to improve faster in a familiar environment, so would like to discharge in the next 1-2 days Patient was seen and discussed with bedside RN today. Problem list includes: Active Problems: Delirium Psychosis Allergic rhinitis Essential hypertension, benign Osteoarthritis Acute cystitis without hematuria Vern Rubio MD [employer] General Internal Medicine Pager #[phone] 01/07/21 11:43 AM * Brain Burnham - 01/05/2021 4:38 PM EDT Acute Physical Therapy Evaluation Prior to Admission [facility] score(s): PRIOR LEVEL AM-PAC Mobility Raw Score: 24 Current AM-PAC score(s): CURRENT AM-PAC Mobility Raw Score: 21 Based on the above AM-PAC score(s) and PT clinical judgment, patient is a good candidate for discharge to Home with Outpatient Rehab Services Discharge Barriers: Cognitive impairments that impact safety (see note below) Mobility equipment available at home: wheeled walker, straight cane ADL equipment available at home: shower bench, grab bars (Doesn't Use) Equipment needed for discharge: none Current therapy frequency recommendation in acute: Therapy Frequency: no therapy warranted Precautions and Weightbearing Status: Patient Safety Communication Prior to Visit: Nursing Left Upper Extremity: full weight bearing Right Upper Extremity: full weight bearing Left Lower Extremity: full weight bearing Right Lower Extremity : full weight bearing Subjective: The patient was agreeable and motivated to work with therapy this date. Family was in the room (, Daughter) Pain: General Pain Documentation (Adult, OB, Peds) Presence of Pain: complains of pain/discomfort Pain Location: back DVPRS (Defense and Veterans Pain Rating Scale) DVPRS: Rest: 4- mild pain DVPRS: Activity: 4- mild pain Home Setting Residence: House Lives With: spouse First floor setup: bedroom, walk-in shower Number of stairs to enter home: 2 Stair Railings at Home: entry - present on right side (ascending) Mobility Equipment Available: wheeled walker, straight cane ADL Equipment Available: shower bench, grab bars (Doesn't Use) Home Environment Details: The patient lives in a 1 story home with her in [place], [place]. Daughter lives in [place]. She has two steps to enter home through garage. Previous Level of Function Prior level ADL Overview: Independent with all ADLs Bed Mobility/Transfers: independent Ambulation status: WFL Ambulation Skills: independent Assistive Device: none used Level of Ambulation: community Objective/Observation: Vitals/Vitals Responses to Treatment: WFL Cognition Overall Cognitive Status: Impaired Arousal/Alertness: Appropriate responses to stimuli Orientation Level: Oriented to person, Oriented to place, Oriented to time Following Commands: Follows one step commands without difficulty Safety Judgment: Good awareness of safety precautions Awareness of Errors: Assistance required to identify errors made Deficits: Fully aware of deficits Attention Span: Appears intact Vision Screen Currently wearing corrective lenses: Yes Speech Speech: no gross deficits noted Hearing Hearing: hearing aids Extremity Assessments: RLE Assessment RLE Assessment: Within Functional Limits Right LE Assessment Details: Gross Strength 5/5 LLE Assessment LLE Assessment: Within Functional Limits Left LE Assessment Details: Gross Strength 5/5 Sensation Overall Sensation: Intact Sensation Comments: The patient responded accurately to dermatome testing until lower leg. She proceeded to answer (Left) to each question. Previous dermatomes were reassessed to which patient responded Left again (right side). Most likely intact due to timing of response, but incorrect response d/t cognitive status. Balance: Sitting Balance Static Sitting-Level of Assistance: Modified independent Dynamic Sitting-Level of Assistance: Modified independent Standing Balance Static Standing-Level of Assistance: Modified independent Dynamic Standing-Level of Assistance: Modified independent Transfer Assessment: Sit to Stand Transfer [place] Level: Sit->Stand: independent Skilled Intervention/Details: Sit->Stand: The patient able to perform STS transferes without UE support during 5xSTS transfers Stand to Sit Transfer [place] Level: Stand->Sit: independent Gait: Gait Assessment [place] Level: Gait: supervision Assistive Device: Gait: gait belt Gait Distance (feet): 125 Gait Deviations Identified: decreased heel strike, decreased step length Gait Skilled Rationale: verbal, increase step length Skilled Intervention/Details - Gait: The patient able to ambulate 125 ft with supervision. She demonstrated decreased heel strike and step length, but overall able to demonstrate safety during gait. Stairs: Stairs Assessment [place] Level: Stair Negotiation: supervision Assistive Device: Stair Negotiation: right rail (ascending) Number of stairs: 10 Gait Skilled Rationale: nonreciprocal pattern Skilled Intervention/Details - Stairs: The patient navigated up/down 10 stairs with supervision, demonstrating ability to navigate into and out of house. Outcome Score(s): 5X Sit to Stand Test recorded time: 13.27 seconds CURRENT [facility] Basic Mobility Inpatient Short Form Turning over in bed: 4 - No Assistance Sitting/standing from chair: 4 - No Assistance Moving from lying on back to sittin - No Assistance Moving to and from bed to chair: 3 - A Little Assistance Walk in hospital room: 3 - A Little Assistance Climbing 3-5 steps with a railin - A Little Assistance CURRENT [facility] Mobility Raw Score: 21 CURRENT [facility] Mobility Functional Limitation/Modifier: 28.97% Currently Impaired in Basic Mobility- CJ Interventions: Intervention 1 Intervention Name: Education Details: The patient was provided a HEP for lying, sitting, and standing lower extremity exercises.Each exercise was explained and demonstrated. All questions were answered. The patient was instructed to complete exercises 3-5 times a day for 20 reps each. Assessment & Plan: The patient is a 75 yo female who was admitted for altered mental status, confusion, and delusions and seen for therapy evaluation related to functional mobility and discharge recommendations.. Exam findings include gait, locomotion, and balance, arousal, attention, and cognition. These impairments contribute to functional limitations including Decreased functional mobility. Current clinical presentation is Evolving - changing/inconsistent clinical characteristics (Moderate). Patient history factors impacting Plan Of Care include Hypertension, gastric bypass, and hip/knee replacements . Patient will benefit from skilled physical therapy to address these impairments, functional limitations, and participation restrictions and has other (see comments) (no therapy warranted) rehab potential to achieve therapy goals. Planned Therapy Interventions: none Plan for next session: no therapy warranted Plan of Care: Reviewed HEP and discharge recs, pt demonstrates appropriate understanding. Evaluating Therapist: Brain KIRBY Additional Details: Co-evaluation/co-treatment performed?: No simultaneous treatment performed Evaluation Complexity Components History: Low (No personal factors and/or comorbidities) Body Systems Review: Low (Addressing 1-2 elements) Clinical Presentation: Evolving - changing/inconsistent clinical characteristics (Moderate) Clinical Decision Making: Low Time In: 1608 Time Out: 1638 Total Visit Time: 30 minutes Total Treatment Time: 24 minutes Patient location at end of session: edge of bed Alarms on at end of session: family in room Needs in reach. Upon discontinuation of Acute Care Physical Therapy Services or patient discharge from the hospitalthis note represents the current Physical Therapy Discharge Summary. * Erik Almonte RN - 01/05/2021 3:41 PM EDT Discharge Planning Patient Assessment Admission Assessment Patient Assessment Completed: Yes Anticipated discharge disposition: Home Reason for Admission: altered mentation Is the patient able to participate in the assessment?: Yes Information source: Patient, Child(krystal), Spouse Information Source Name/Contact: KATI Love, spouse, Demographics Verified and Updated: Yes Has the patient been admitted to any hospital in the last 30 days?: No Advanced Care Planning Has the patient completed Advance Directives?: Completed, Available in Medical Record Reviewed for accuracy with patient?: Yes Advanced Directives on File: HealthCare Power of Dietary Aide Cook Legal Next of Kin Does the patient have a Guardian?: No Spouse: Yes Name and Contact information: KATI Love [phone] Adult Child(krystal), List All Adult Children: No Parent(s) - List All Living Parents: No Adult Sibling(s), List All Adult Siblings: No Nearest Adult Related by Blood or Adoption: No Patient Reports No Relatives by Blood or Adoption.: No Referral to Social Work to Identify Legal Next of Kin?: No Reviewed and Updated in Demographics? : Yes Outpatient Providers Does patient have a primary care physician? : Yes (Dr Hugo Julio [phone]) When was the patient's last PCP visit?: < 30 days Does the patient follow any specialists?: Yes Reviewed and updated Care Team?: Yes (Dr Juan Carlos Mares, [facility]) Patient Care Team: Hugo Julio MD as PCP - General (Family Medicine) Carlos Granados MD (General Surgery) David Puga, (Endocrinology, Diabetes & Metabolism) Environment/Caregivers Is the patient from a facility or long-term?: No Patient lives with: Spouse or Partner Living Environment: House How many steps does the patient have to navigate to enter or inside the home? : 2 Does the patient have a first floor set-up with bed and bathroom?: Yes Patient Caregiving Responsibilities: Self, Spouse Patient-identified caregiver/support network: Family Who does the patient identify as a teachable caregiver(s)?: Spouse or Partner Services Does the patient use a home health or hospice agency?: No Current with dialysis?: No Does the patient use any community programs or services?: No Does patient use DME? : none Does the patient use oxygen?: No Does patient use medical supplies? : none Anticipated Changes Related to Illness/Injury? : Yes Inability to care for self?: Yes Inability to return to school/work?: N/A Initial ADLs Prior to Arrival What is the patient's baseline physical functioning prior to this acute illness?: independent What is the patient's baseline cognitive functioning prior to this acute illness?: independent Is the patient's baseline functioning changed by this acute illness? : Yes Changes observed : Cognitive Concerns with patient being able to care for themselves at home? : No Are there therapy or specialists consults?: No Does the patient's home require any home modifications for discharge? : No CM to recommend therapy or other consults? : No Medication Management Does the patient have prescription insurance coverage? : Yes Is the patient on Anticoagulation? : No [id number] [place] [address] [id number] 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 : No Employed?: No Coping/Stress Concerns about patient s coping and stress?: No Concerns about patient s caregiver s coping and stress?: No Values and Beliefs Cultural or hoahaoism practices that may impact discharge planning and/or medical care?: No Initial Discharge Planning Anticipated discharge disposition: Home Transportation Available for Discharge: Family or Friend, Private Vehicle Anticipated DME: none Anticipated Services at Discharge: Outpatient clinical services (ie: lab draws, transfusions, injectables) Patient Assessment Completed: Yes Category Reference: Low: 0% - 16% Medium Low: 17% - 32% Medium High: 33% - 48% High: 49% - 100% Expected Discharge Date: 01/06/2021 Discharge Planning Summary Met with patient and spouse at bedside, introduced role of home health care case manager in discharge planning and care coordination. Reviewed past medical history and chief complaint. Initial assessment completed Case Management Plan No discharge needs anticipated at this time CM will continue to follow treatment team updates for any changes in discharge needs Erik Ames RN Clinical Electronic Game Developer * Pricilla Quezada MD, PhD - 01/05/2021 1:55 PM EDT Internal Medicine Daily Progress Note Patient: Madelyn Love, 1945, [id number] Physician: Pricilla Quezada MD, PhD, PGY1, Pager #[phone], Gen Med 8 Subjective/Interval History: No acute events overnight. Patient reports she feels Wonderful and talks about the Lord's plan for her. She denies any pain and attributes this to her corinne. She perseverates on the need of everyone to welcome Beck into your heart. She denies hallucinations or visions. Family is at the bedside and reports that while she is a woman of corinne, this level of enthusiasm is very unusual for her. Objective: Vitals: 01/05/211758 BP: 175/77 Pulse: 85 Resp: 14 Temp: 97.6 F (36.4 C) O2 Device: room air (01/05/211758) Gen: NAD, well-appearing, sitting up in chair HENT: NCAT, EOMI, MMM Cardio: RRR, normal S1/S2, systolic murmur at left sternal boarder Resp: Clear to auscultation bilaterally, no increased WOB GI: Soft, NT, ND, normal BS MSK: No joint swelling or erythema Ext: Warm and well-perfused, no LE edema Neuro: Alert and oriented to self and place, but gives months as August, then July and season as fall. She is moving all four extremities Psych: Appears activated. Mood: Wonferful. Perseveration on God's goodness. Data Review: WBC/Hgb/Hct/Plts: 5.49/11.3/34.9/226 (01/05 357) Na/K+/Phos/Mg/Ca: 136/3.6/--/2.1/-- (01/05 357) Bun/Creat/Cl/CO2/Glucose: 16/0.61/102/25/109 (01/05 357) Results for MADELYN LOVE ( ) as of 01/05/2021 19:56 Ref. Range 01/04/2021 16:54 NOVEL CORONAVIRUS PCR Unknown Rpt SARS-COV-2 Latest Ref Range: NOT DETECTED NOT DETECTED Assessment/Plan: Madelyn Love is a 75 y.o. female with a history of hypertension, multiple MSK surgeries who is admitted for acute delirium and delusions. Hyperactive Delirium: Stable: Appears to be medication-related, related to recent steroid use before activation occured. UA on admission suggestes UTI. While she is asymptomatic, it may be contributory and is being treated (below). - Avoid further deliriogenic meds - No concerns for safety. Video sitter due to concerns about impulsivity. - Non-pharmacologic delirium precautions. Low threshold to have 1:1 sitter - Consider medical hold if concern for elopement - Psychiatry consulted Uncomplicated Urinary Tract Infection: UA on admission with moderate LE, >20 WBCs. While asymptomatic (no frequency, dysuria) may be contributing to confusion, activation. Thus, opt to treat. - Culture pending - Ceftriaxone q24h (at 1700) (01/04- ) - Plan to narrow based on culture results. Plan for 3-5 day course- oral at discharge. Chronic Conditions: HTN: home coreg 6.25 BID and losartan 100mg daily Chronic constipation: Creon 18,000U TID with meals (unclear, prescribed by Dr. Dickinson, GI) DVT PPX: Lovenox Diet: DIET REGULAR Code Status: Full Code, discussed with POA on admission. Disposition: Anticipate home with [facility] after work up of delirium, clinical improvement. Discussed with team and attending, Vern Rubio, *, on rounds. Signed, Pricilla Quezada MD, PhD Associated attestation - Vern Rubio MD - 01/07/2021 11:34 AM EDT Attending Addendum (GC): This patient was discussed, examined, and evaluated with the resident physician on the day of the encounter. I have independently confirmed essential components of the medical history and the physical examination. I agree with the above therapeutic plan, with the following addendum: Madelyn Love appears stably activated. Hemodynamically stable, though hypertensive at times. . Labs reviewed, most notable for stable chem and CBC Plan today includes: - Await psychiatry recommendations - Continue IV ceftriaxone for now for UTI pending culture results, transition to bactrim at discharge - PT/OT evaluation Patient was seen and discussed with bedside RN today. Problem list includes: Active Problems: Delirium Psychosis Allergic rhinitis Essential hypertension, benign Osteoarthritis Acute cystitis without hematuria Vern Rubio MD Swiss Machinist-Clinical Medicine General Internal Medicine Pager #[phone] 01/07/21 11:32 AM documented in this encounterAv[facility] History and physical note* Simeon Grewal MD - 01/04/2021 4:45 PM EDT Internal Medicine Admission History & Physical Patient: Madelyn Love, 1945, [id number] Physician: Simeon Grewal MD, PGY3, GM8 service Date of face to face patient encounter: 01/04/2021 Chief Complaint: Delusions History Of Present Illness: Madelyn Love is a 75 y.o. female with a history of Hypertension, gastric bypass, and hip/knee replacements who presents with new psychosis and hyperactive delirium. For months now, Madelyn has had sinus trouble interfering with sleep and failing multiple courses oftreatment. Her longtime PCP has been working to improve her symptoms. Starting 12/27, she was prescribed a prednisone burst and doxycycline for 5 days. She completed this treatment. Over the weekend -day 3-4 of treatment - her started noticing abnormal behaviors, forgetfulness, and strange c omments. She would forget to cook a hot dog and serve it to him, or avoid physical therapy appointments that she typically goes to, and make comments about the second coming and God wants me to stay home and be at peace. She's never had anything like this before. She has no psychiatric history whatsoever. She has not explicitly heard any voices or seen any hallucinations, she more gets the feeling of God saying these things. She has had significant workup, medical and psychiatric, and ended up in the [facility] ED because her daughters live in [place] and her wanted her to be medically managed as well as psychiatrically. She has denied physical symptoms of any kind. She denies abdominal pain, dysuria, hematuria. She has had UTI's in the past that have resolved quickly with outpatient antibiotics. Medical/Surgical History: Past Medical History: Diagnosis Date Essential hypertension, benign Past Surgical History: Procedure Laterality Date ELBOW SURGERY GASTRIC BYPASS KNEE REPLACEMENT REMOVAL BILIARY DUCT/GALLBLADDER CALCULI/DEBRIS PERCUTANEOUS W/ IMAGE Social History: Social History Tobacco Use Smoking status: Never Smoker Smokeless tobacco: Never Used Substance Use Topics Alcohol use: Not Currently Social History Substance and Sexual Activity Drug Use Not Currently Social History Social History Narrative Not on file Family History: family history is not on file. No psych history in family. Medications: Prior to Admission Medications Prescriptions Last Dose Informant Patient Reported? Taking? Pancreatic enzymes [id number] units Cap [address] Particles capsule Yes Yes Sig: Take by mouth 3 times daily with meals. carveDILOL 6.25 MG tablet Yes Yes Sig: Take 6.25 mg by mouth 2 times daily with meals. furOSEmide 20 MG tablet Yes Yes Sig: Take 20 mg by mouth 2 times daily. losartan 50 MG tablet Yes Yes Sig: Take 100 mg by mouth daily. traMADol 50 MG tablet Yes Yes Sig: Take 50 mg by mouth every 6 hours as needed. Facility-Administered Medications: None I have personally reviewed the medication list, verified it, and updated it via the Medication Reconciliation Navigator: []Verbally with the patient []With the patient's personal medication list [x]Verbally with the patient's family member []Verbally with the facility's MAR []With the patient's Pharmacy Allergies: No Known Allergies Review of Systems: CONSTITUTIONAL: - fevers, - chills, - sweats, - weight -, - fatigue EYES: - Visual Changes - double vision, - eye pain ENT: - rhinorrhea, - epistaxis, + sinus pain, - Sore throat, - tooth pain CV: - chest pain, - palpitations, - syncope, - falls PULM: - dyspnea, - orthopnea, - PND, - cough, - hemoptysis GI: - nausea, - vomiting, - diarrhea, - melena, - hematochezia, - hematemesis, - dysphagia, - odynophagia : - dysuria, - hematuria SKIN: - rash, - sores NEURO: - headache, - limb weakness, - parasthesias HEME: - petechiae, Easy Bruising MSK: - arthralgias, - myalgias ENDO: - hair/skin changes Allergy: -hives - pruritis PSYCH: - depression, - SI, - HI, + delusions, See HPI Physical Exam: Vitals: 01/04/21 1243 BP: 194/86 Pulse: 86 Resp: 16 Temp: 98.2 F (36.8 C) O2 Device: room air (01/04/21 1330) Gen: alert and oriented, no acute distress, appears well. HEENT: moist mucus membranes, PERRL, nares patent. CV: regular rate, regular rhythm, no murmurs or extra heart sounds appreciated. Pulses intact and symmetric bilaterally Pulm: breathes easy, symmetric; clear to auscultation bilaterally, no wheezes, crackles, rales appreciated. Abd: soft, non-tender, non-distended. Nl bowel sounds. No guarding, rebound, rigidity. Ext: warm, well perfused; trace edema, symmetric in size. Skin: no rash noted, warm and dry. Neuro: no focal deficit, intact strength and sensation, A&Ox4, Psych: Cheerful, pressured speech, no active SI/HI/AH/VH. She is aware of her prior delusions as delusions. There is no height or weight on file to calculate BMI. Data Review: WBC/Hgb/Hct/Plts: 6.30/12.6/38.9/266 (01/04 1407) Na/K+/Phos/Mg/Ca: 137/3.7/--/--/-- (01/04 1407) Bun/Creat/Cl/CO2/Glucose: 13/0.69/102/29/114 (01/04 1407) Ptt/Pt/Inr: --/11.9/0.9 (01/04 1407) Additional Labs: UA: mod LE, WBC >20. Cx Pending Imaging: CT HEAD WITHOUT CONTRAST Final Result IMPRESSION: No acute intracranial findings on noncontrast head CT. CHEST AP PORTABLE ED Final Result IMPRESSION: No focal consolidation identified. Reviewed, normal for age. Impression/Plan: In summary, Madelyn Love is a 75 y.o. female with a history of hypertension, multiple MSK surgeries who is admitted for acute delirium and delusions. Hyperactive Delirium, improving: Likely medication-related with recent steroid use fitting time course of delusions. Concurrent UTI may be contributing, see below. She takes very rare tramadol, and has not had any during the course of these symptoms. - avoid further deliriogenic meds - no active safety concerns, patient and POA agree with monitoring for improvement. Consider med-hold if safety concerns arise - non-pharmacologic delirium precautions. 1:1 sitter if needed. - Psychiatric evaluation to complete workup, appreciate recommendations. Urinary Tract Infection, uncomplicated: asymptomatic by history, although psychiatric symptoms may be the only presenting sign. - UA mod LE, >20WBC - Culture pending - s/p Ceftriaxone at 1700 on 01/04/2021 - await culture growth, treat for 3-5 day course. Chronic Conditions: HTN: home coreg and losartan DVT prophylaxis with enoxaparin Disposition: observation Code status is FULL, discussed with POA on admission. Staffed with Dr. Rubio, GM8 attending. Signed, Simeon Grewal MD Associated attestation - Vern Rubio MD - 01/05/2021 3:26 PM EDT Attending Addendum (GC): This patient was discussed, examined, and evaluated with the resident physician on the day of the encounter. I have independently confirmed essential components of the medical history and the physical examination. I agree with the above therapeutic plan, with the following addendum: Madelyn Love was admitted for altered mental status in the setting of recent prednisone use. Shedid well overnight with the above outlined plan. This AM, she has elevated mood, is very pleasant, denies complaints and is oriented but not yet fully linear with her thinking, still with some bizarre speech and possible delusions. Hemodynamically stable, waxing and waning mental status. Labs reviewed, most notable for Urinalysis concerning for acute infection, normal TSH, normal electrolytes, creatinine, and CBC Independent review and interpretation of CT head reveals some volume loss, but no acute hemorrhage or mass Independent review and interpretation of EKG reveals normal sinus rhythm Plan today includes: - Continue antibiotics for UTI - Psych consult - PT/OT Patient was seen and discussed with bedside RN today. Problem list includes: Active Problems: Delirium Psychosis Allergic rhinitis Essential hypertension, benign Osteoarthritis Vern Rubio MD Swiss Machinist-Clinical Medicine General Internal Medicine Pager #[phone] 01/05/21 3:22 PM documented in this encounterAv[facility] Emergency department Note* Arleth Us RN - 01/04/2021 3:53 PM EDT Patient returned to ER with RN in wheelchair. Patient offered blanket and up in chair in room, to bedside. GCS 15 and denies any current needs. * Arleth Us RN - 01/04/2021 3:09 PM EDT Patient up to restroom with stand by assist, and RN transported patient to [facility] in wheelchair * Arleth Us RN - 01/04/2021 2:50 PM EDT Patient offered PO snack per MD, patient family brought patient meal per request. * Arleen Duckworth MD - 01/04/2021 2:08 PM EDT dEPARTMENT of Emergency Medicine CHIEF COMPLAINT Delusional HPI Madelyn Love is a 75 y.o. female medical history of hypertension, type 2 diabetes mellitus, and chronic sinusitis who presents with delusions. Madelyn says for the past 4 days, she has been feeling not herself and having delusions. She notes that her PCP gave her some antibiotics, antivirals, and a steroid taper to treat her chronic sinusitis, and 3 days into this therapy she began to have a feeling of euphoria in her chest and heard God telling her that everything was going to be okay. She also felt that she needed to spread the gospel to everyone and tell them that God was here to make everything all right . Her notes that during this time, she was forgetful and unable to do everyday tasks such as forgetting how to drive a car and not knowing what year it was. The symptoms were present all the time during these 4 days, without waxing or waning symptoms. Her took her to a [facility] emergency department for evaluation of the symptoms, where a chemistry, CBC, and noncontrast head CT were negative. The emergency department recommended evaluation by an outside psychiatric hospital at this time, where she stayed un til this morning when her decided she might be better evaluated at [facility]. In the [facility] ED, Madelyn says she feels much better and closer to her baseline. She says that she still feels calm in her chest, but no longer feels the presence or hears the voice of God, or has the urge to spread his gospel. Her notes that her current state of mind is also much closer to her usual, and is much improved from the previous 4 days. She denies any SI, HI, visual or auditory hallucinations at this time. REVIEW OF SYSTEMS Review of Systems Constitutional: Negative for chills and fever. HENT: Positive for congestion (chronic) and sinus pressure (chronic). Negative for sore throat. Eyes: Negative for pain and visual disturbance. Respiratory: Negative for cough, chest tightness and shortness of breath. Cardiovascular: Negative for chest pain, palpitations and leg swelling. Gastrointestinal: Negative for abdominal distention, abdominal pain, blood in stool, constipation, diarrhea, nausea and vomiting. Genitourinary: Negative for difficulty urinating, dysuria and hematuria. Musculoskeletal: Negative for arthralgias and myalgias. Skin: Negative for color change and wound. Neurological: Negative for dizziness, numbness and headaches. Psychiatric/Behavioral: Negative for confusion and suicidal ideas. PAST MEDICAL HISTORY Past Medical History: Diagnosis Date Essential hypertension, benign SURGICAL HISTORY Past Surgical History: Procedure Laterality Date ELBOW SURGERY GASTRIC BYPASS KNEE REPLACEMENT REMOVAL BILIARY DUCT/GALLBLADDER CALCULI/DEBRIS PERCUTANEOUS W/ IMAGE CURRENT MEDICATIONS Current Facility-Administered Medications Medication Dose Route Frequency Provider Last Rate Last Admin lidocaine 1% (PF) (XYLOCAINE MPF) 1 % injection 0.3 mL 0.3 mL Infiltration Once PRN Damien Ocasio MD Current Outpatient Medications Medication Sig Dispense Refill carveDILOL 6.25 MG tablet Take 6.25 mg by mouth 2 times daily with meals. furOSEmide 20 MG tablet Take 20 mg by mouth 2 times daily. losartan 50 MG tablet Take 100 mg by mouth daily. Pancreatic enzymes [address]79-[address] units Cap DR Particles capsule Take by mouth 3 times daily with meals. traMADol 50 MG tablet Take 50 mg by mouth every 6 hours as needed. ALLERGIES No Known Allergies FAMILY HISTORY No family history on file. SOCIAL HISTORY Social History Socioeconomic History Marital status: Not on file Spouse name: Not on file Number of children: Not on file Years of education: Not on file Highest education level: Not on file Occupational History Not on file Tobacco Use Smoking status: Never Smoker Smokeless tobacco: Never Used Substance and Sexual Activity Alcohol use: Not Currently Drug use: Not Currently Sexual activity: Not on file Other Topics Concern Not on file Social History Narrative Not on file Social Determinants of Health Financial Resource Strain: Difficulty of Paying Living Expenses: Food Insecurity: Worried About Running Out of Food in the Last Year: Ran Out of Food in the Last Year: Transportation Needs: Lack of Transportation (Medical): Lack of Transportation (Non-Medical): Physical Activity: Days of Exercise per Week: Minutes of Exercise per Session: Stress: Feeling of Stress : Social Connections: Frequency of Communication with Friends and Family: Frequency of Social Gatherings with Friends and Family: Attends [employer] Services: Active Member of Clubs or Organizations: Attends Club or Organization Meetings: Marital Status: Intimate Partner Violence: Fear of Current or Ex-Partner: Emotionally Abused: Physically Abused: Sexually Abused: PHYSICAL EXAM BP 194/86 Pulse 86 Temp 98.2 F (36.8 C) (Infrared) Resp 16 Ht 1.461 m (4' 9.5) SpO2 97% Smoking Status Never Smoker Physical Exam Vitals and nursing note reviewed. Constitutional: General: She is not in acute distress. Appearance: Normal appearance. She is not ill-appearing. HENT: Head: Normocephalic and atraumatic. Mouth/Throat: Mouth: Mucous membranes are moist. Pharynx: Oropharynx is clear. No oropharyngeal exudate or posterior oropharyngeal erythema. Eyes: General: No scleral icterus. Extraocular Movements: Extraocular movements intact. Conjunctiva/sclera: Conjunctivae normal. Pupils: Pupils are equal, round, and reactive to light. Cardiovascular: Rate and Rhythm: Normal rate and regular rhythm. Pulses: Normal pulses. Heart sounds: No murmur heard. No friction rub. No gallop. Pulmonary: Effort: Pulmonary effort is normal. No respiratory distress. Breath sounds: Normal breath sounds. No stridor. No wheezing, rhonchi or rales. Abdominal: General: Abdomen is flat. Bowel sounds are normal. There is no distension. Palpations: Abdomen is soft. There is no mass. Tenderness: There is no abdominal tenderness. There is no guarding or rebound. Musculoskeletal: General: Normal range of motion. Right lower leg: Edema (1+ to mid rivera, baseline) present. Left lower leg: Edema (1+ to mid rivera, baseline) present. Skin: General: Skin is warm and dry. Capillary Refill: Capillary refill takes less than 2 seconds. Findings: No lesion or rash. Neurological: General: No focal deficit present. Mental Status: She is alert and oriented to person, place, and time. Cranial Nerves: No cranial nerve deficit. Sensory: No sensory deficit. Motor: No weakness. Coordination: Coordination normal. Gait: Gait is intact. Psychiatric: Attention and Perception: Attention and perception normal. Mood and Affect: Mood normal. Speech: Speech normal. Behavior: Behavior normal. Behavior is cooperative. Thought Content: Thought content normal. Thought content does not include homicidal or suicidal ideation. Thought content does not include homicidal or suicidal plan. Cognition and Memory: Cognition normal. Judgment: Judgment normal. ED COURSE & MEDICAL DECISION MAKING Pertinent Labs & Imaging studies if performed reviewed. (See chart for details) Medication list reviewed. Assessment: Madelyn Love is a 75 y.o. female medical history of hypertension, type 2 diabetes mellitus, and chronic sinusitis who presents with delusions. Differential Diagnosis includes but is not limited to: Steroid-induced psychosis, medication-induced delusions, metabolic encephalopathy, delirium, TIA, stroke Medical Decision Making: Given this patient's recent therapy with steroids, no past psychiatric history, and acute delusionsand auditory hallucinations, the most likely etiology of her symptoms is a steroid induced psychosis. It is also possible that the antibiotics and antivirals given to her for chronic sinusitis may have contributed to her symptoms. Metabolic encephalopathy could also be possible given the patient's age, medications, and chronic diseases. Delirium is less likely without a waxing and waning course of her symptoms. TIA is also less likely to the time course of her symptoms. Stroke is less likely without any other focal neurologic deficits. This patient is likely appropriate for admission to medicine for further workup of her delusions and change in mental status, and inpatient consult to Geriatrics and psychiatry may be beneficial. An emergent consult to Psychiatry in the emergency department is not necessary at this time. Plan: -Chem, CBC, LFTs, TSH, UA with Cx -CXR, CTH -No need for emergent psych consult at this time Impression: Delusions, likely medication-induced Disposition: Admit Arleen Duckworth MD Resident 01/04/21 1037 * Arleth Us RN - 01/04/2021 1:40 PM EDT Patient to ER room 62A from triage. Patient seen in hospital and psych unit x2 over last 24 hours. Patient recently becoming more forgetful, has happy spiritual feeling in chest that began after initiating abx and steroids for sinus infection. Patient reports that she felt religous grandeur and felt like God was coming to take her home. Patient denies any SI or HI at present time and reports that she does not wish to be , or inflict any self harm or harm to anyone else. Patient was evaluated medically and psychiatrically without any known cause for delusion and seeking additional medical attention. Patient also reports that she wanted to keep happy feeling in chest but realized after a couple days The Lord doesn't want me to lay in bed all day. Denies difficulties eating or drinking and has been sleeping well. at bedside. * Damien Ocasio MD - 01/04/2021 1:37 PM EDT ED ATTENDING NOTE Initial Medical Decision Making: Patient presents to the ED with AMS. Reportedly not acting like herself and having confusion. Givenage will do CT head, labs including infectious workup. Suspect patient may need hospitalization to medicine with geriatrics/ psychiatry if workup is negative. Updates: ED Course as of Jan 05 1616 Taya Jan 04, 2021 1615 Likely steroid psychosis but UA concerning for possible UTI, Rocephin given CC Chief Complaint Patient presents with Delusional HPI Madelyn Love is a 75 y.o. year old female with a PMHx as below who presents with AMS and confusion. Otherwise, no chest pain/ shortness of breath, no abdominal pain/ nausea/ vomiting, no headache/ blurry vision, no dysuria/ back pain, no weakness. Past Medical History reviewed, negative except for: Past Medical History: Diagnosis Date Essential hypertension, benign Past Surgical History reviewed, negative except for: Past Surgical History: Procedure Laterality Date ELBOW SURGERY GASTRIC BYPASS KNEE REPLACEMENT REMOVAL BILIARY DUCT/GALLBLADDER CALCULI/DEBRIS PERCUTANEOUS W/ IMAGE Social history reviewed, noncontributory except for: Social History Socioeconomic History Marital status: Not on file Spouse name: Not on file Number of children: Not on file Years of education: Not on file Highest education level: Not on file Occupational History Not on file Tobacco Use Smoking status: Never Smoker Smokeless tobacco: Never Used Substance and Sexual Activity Alcohol use: Not Currently Drug use: Not Currently Sexual activity: Not on file Other Topics Concern Not on file Social History Narrative Not on file Social Determinants of Health Financial Resource Strain: Difficulty of Paying Living Expenses: Food Insecurity: Worried About Running Out of Food in the Last Year: Ran Out of Food in the Last Year: Transportation Needs: Lack of Transportation (Medical): Lack of Transportation (Non-Medical): Physical Activity: Days of Exercise per Week: Minutes of Exercise per Session: Stress: Feeling of Stress : Social Connections: Frequency of Communication with Friends and Family: Frequency of Social Gatherings with Friends and Family: Attends [employer] Services: Active Member of Clubs or Organizations: Attends Club or Organization Meetings: Marital Status: Intimate Partner Violence: Fear of Current or Ex-Partner: Emotionally Abused: Physically Abused: Sexually Abused: Family history reviewed, noncontributory except for: No family history on file. ROS Review of Systems CARDIOVASCULAR: Denies: chest pain RESPIRATORY: Denies: shortness of breath All other systems were reviewed and were negative unless otherwise noted Physical Exam: BP 194/86 Pulse 86 Temp 98.2 F (36.8 C) (Infrared) Resp 16 Ht 1.461 m (4' 9.5) SpO2 97% Smoking Status Never Smoker Constitutional: Pt appears well-developed and well-nourished. No distress. HEENT: Normocephalic and atraumatic, Oropharynx is clear and moist. I have personally seen and examined this patient. I have fully participated in the care of this patient. I have reviewed pertinent clinical information, including history, physical exam and plan of care with the resident phsycian involved in this patient's care. I discussed the history and examination with the resident and agree with the plan of care. Pertinent Labs & Imaging studies reviewed, as below No results found for this visit on 01/04/21. No orders to display I reviewed the patient's medical record and past visits. Medication list reviewed. Nursing notes revewied I have reviewed the patient's chart Of note, hx of HTN This note was dictated using [employer] dictation. Attempts were made at proofreading, but errors may be present. Disposition: Hospitalization Clinical Impression: 1) AMS/ acute delerium EKG Interpretation Ordered and pending Damien Ocasio MD 01/04/21 1341 Damien Ocasio MD 01/04/21 1616 * Becca Arrieta RN - 01/04/2021 12:45 PM EDT Patient started having delusional;l thought started Friday Started having forgetfulness Friday, went to family doctor, they [facility] to the [facility], [facility] revoked it due to thinking it was more medical. Patient's stated that she is not acting like herself. Yesterday she was answering as other people, they found her in a random hospital room. Patient not able to finish task, patient forgetting appointment. She stated that she feels like she has to think about every simple task. [facility] NoteAcute Coronary Syndrome (ACS): Initial Evaluation and Management: [email or web address] [facility]12-06-2014 History of Present illness Narrative* Ligia is seen today in follow-up. She underwent Shani-en-Y gastric bypass approximately 8 years ago. She became a patient approximately 4 years ago where he was treated presented with chronic diarrhea. No colonoscopy was completed she had had prior colonoscopy before gastric bypass. She was felt to have bacterial overgrowth syndrome was treated with Flagyl and improved. She developed breakthroughdiarrhea and Flagyl was continued on an intermittent but long-term basis. She had acute psychotic break requiring hospitalization, at that time she was on concomitant steroids for back problems. She was hospitalized at [facility] for several weeks and was felt that it was combination of steroids and Flagyl that may have contributed to her psychotic break. * Because of worsening diarrhea symptoms complaining of having several loose stools in the morning typically begins the morning with 1 formed stool then as the morning progresses will have several small stools which usually end around 10:50 AM. She admits her stools are soft break apart on the toiletand float. * She denies any abdominal bloating no melanic stools no true steatorrhea. She has had multiple appointments with multiple GI doctors she was seen by Dr. Wynn in November of this year at [facility] she underwent EGD at that time was found to have a small hiatal hernia no biopsies were taken but henoted some erosions at her gastric pouch. He recommended repeat endoscopy which was not completed and a follow-up small bowel follow-through was done on December 12, 2018 which demonstrated moderate sizehiatal hernia. * She had recent EGD and colonoscopy performed by Dr. Dolores Doll at [facility] in [place] she noted there is a small hiatal hernia that her gastric pouch and E ferret limb were healthy biopsies were taken. Colonoscopy was normal although prep was fair to the cecum and random biopsies were taken throughout the colon it was noted that her rectal tone was poor and she had some internal hemorrhoids. * Patient is recently seen Dr. Nam Neal at [facility] for consideration of reversal gastricbypass he is referred her onto Dr. Micah Tinoco for comprehensive assessment and treatment prior toany reversal surgery. [facility] [place] [address] Work Phone: [phone] History of Present illness Narrative* Ligia is a pleasant 76-year-old female with known pancreatic insufficiency, diabetes mellitus, osteoporosis and chronic back pain. She underwent Shani-en-Y gastric bypass approximately 20 years ago. She suffered from intermittent, chronic small intestinal bacterial overgrowth. She was treated for bloating and diarrhea with metronidazole she was taking a low-dose chronically every 2 weeks developed acute hyponatremia and steroid psychosis while hospitalized at psychiatric facility down to [place]. She has been approximately 4 weeks down there correcting her sodium and behavior. She recently had spinal cord stimulator placed and is having no back pain at this time is quite satisfied with results. Overall her bowel movements are back to a more normal pattern she will have 1-2 bowel movements every day that approximately 3rd-4th they will have multiple bowel movements numbering less than 6with some urgency but no incontinence. She admits that her stools are generally formed she denies an y hang diarrhea. * She was last treated with Xifaxan 3 months ago. Due to cost family is considering repeat therapeutic trial of metronidazole for small intestinal bacterial overgrowth. [facility] [place] [address] Work Phone: Evaluation + Plan note No data available for this section [facility] Evaluation note* Diagnosis Onset Date Resolution Status Mild cognitive impairment ac [place] Abnormal ultrasound of breast acute [facility] Work Phone: Evaluation note* Diagnosis Acute cystitis without hematuria Acute cystitis Delirium Other alteration of consciousness Essential hypertension, benign Primary osteoarthritis involving multiple joints Psychosis Unspecified psychosis Osteoarthritis Osteoarthrosis, unspecified whether generalized or localized, unspecified site Allergic rhinitis Allergic rhinitis, cause unspecified [facility] Diagnosis Onset Date Resolution Status Mild cognitive impairment ch ronic Valvular heart disease acute Essential hypertension chron ic Lower extremity edema chroni [facility] Work Phone: Evaluation note* Diagnosis Onset Date Resolution Status Mild cognitive impairment ch ronic Essential hypertension chron ic Lower extremity edema chroni c [facility] Work Phone: Evaluation note* Diagnosis Onset Date Resolution Status Essential hypertension chron ic Lower extremity edema chroni c Dementia chronic Fatigue chronic Iron deficiency anemia chron ic [facility] Work Phone: Evaluation noteNo [facility]. Other Evaluation note* Diagnosis Abdominal bloating with cramps H/O gastric bypass Bariatric surgery status documented in this encounter [facility] note* Diagnosis Onset Date Resolution Status Dementia chronic Fatigue chronic Iron deficiency anemia chron ic [facility] Work Phone: Evaluation note* Diagnosis S/P gastric bypass- Primary Bariatric surgery status Diarrhea, unspecified type Abdominal bloating with cramps documented in this encounter [facility] note* Diagnosis Onset Date Resolution Status Essential hypertension chron ic Left carotid bruit acute Dementia chronic [facility] Work Phone: Evaluation note* Diagnosis Intestinal malabsorption, unspecified type- Primary Chronic diarrhea Diarrhea documented in this encounter [facility] note* Diagnosis Diarrhea due to malabsorption- Primary Personal history of other diseases of digestive system documented in this encounter [facility] note* Diagnosis History of delirium- Primary documented in [facility] encounter [facility] [employer] [facility] Other Evaluation note* Diagnosis Onset Date Resolution Status Essential hypertension chron ic Memory loss resolved [facility] Work Phone: Evaluation noteNo assessment information available [facility] Work Phone: Evaluation note* Diagnosis History of Shani-en-Y gastric bypass- Primary Bile salt-induced diarrhea Irritable bowel syndrome with diarrhea Irritable bowel syndrome documented in this encounter [facility] Work Phone: Evaluation note* Diagnosis Bile salt-induced diarrhea (HHS-HCC)- Primary Irritable bowel syndrome with diarrhea Irritable bowel syndrome Campylobacter enteritis Intestinal infection due to campylobacter documented in this encounter [facility] Work Phone: Evaluation note* Diagnosis Hyponatremia- Primary Hyposmolality and/or hyponatremia Hyponatremia Hyposmolality and/or hyponatremia Urinary tract infection in female [facility]* Diagnosis Contusion of chest wall, unspecified laterality, initial encounter- Primary Contusion of right elbow, initial encounter Skin tear of right elbow without complication, initial encounter History of gastric bypass documented [facility]* Diagnosis Intestinal malabsorption, unspecified type (HHS-HCC)- Primary Hyperparathyroidism (Multi) Hyperparathyroidism, unspecified Vitamin D deficiency Gastroesophageal reflux disease, unspecified whether esophagitis present Hiatal hernia Diaphragmatic hernia without mention of obstruction or gangrene History of Shani-en-Y gastric bypass Vitamin B12 deficiency Other B-complex deficiencies documented in this encounter [facility] Work Phone: Evaluation note* Diagnosis Neuropathy, idiopathic- Primary Other specified idiopathic peripheral neuropathy Cervical myelopathy (CMS/HCC) Cervical spondylosis with myelopathy Numbness and tingling of both lower extremities [facility] Narrative - Reported* Type Description Date Medical History heel spur Medical History right shoulder fx Medical History elbow fx Medical History ckd Medical History erich Medical History melanoma Medical History hiatal hernia Surgical History removal heel spur 1983 Surgical History laparoscopic Shani-en -Y gastric bypass, umbilical hernia repair ([facility]) [place] 07/09/2012 Surgical History D&C 03/2013 Surgical History hysterectomy 05/2013 Surgical History laparoscopic cholecy stectomy with intraoperative cholangiography and lysis of adhesions ([facility]) [place] 11/24/2013 Surgical History rectocele/vaginocele repair 2015 Surgical History laminectomy at [facility] in [place] 06/20 Surgical History surgery teeth, bridge 08/18 Surgical History bursectomy ([facility]) Surgical History cystoscopy with sling 12/2019 [facility]. Other History [facility] Other History of Present illness Narrative* Madelyn is seen today in routine follow-up. Patient known to have SIBO from prior gastric bypass surgery. She has been managed with intermittent Flagyl but then began taking it twice daily for recurrent symptoms. She had acute psychotic break after epidural steroid injection and oral steroids that were given for back pain and then [facility] time adjustments in her medication was made she was felt that Flagyl was contributing to her confusion but she had acute psychosis from steroids. She has done well at home but without Flagyl was having increasing bloating and intermittent diarrhea she was placed on a therapeutic trial of Xifaxan after urea breath testing did prove positive for SIBO. Xifaxan did not improve symptoms and cost was prohibitive to continue. * She was hospitalized 10 days ago for acute confusion and found to have a sodium of 120 adjustments were made in her oral water intake and her most recent sodium is up to 134. * She is seen today accompanied by her she is pleasant she admits to having some bloating butis having 1-2 loose stools every morning which is bothering her the concern is that it, and so quickly that she is almost incontinent. She is taking Benefiber but is taking that in the morning. She de nies any rectal bleeding or bloating is well managed at this time and she has not believe she needsretreated at this time for SIBO. * We discussed monitoring symptoms at this time and using Flagyl only as needed and would use it intermittently but not continuously. [facility] [place] [address] Work Phone: History of Present illness Jerilyn is seen today in routine follow-up is doing well with current medical therapy neurologist taking her off of her Aricept she is doing well without treatment been off 3 months having no decline in mental function continues to have formed stool with cholestyramine does tend to have most of her bowel movements in the morning which limits her ability to leave the house but is overall better. She is concerned about long-term dose of PPI therapy we discussed weaning off she will begin taking Protonix every other day if having no breakthrough heartburn can go to using as needed if she finds she needs Protonix more than 3 times weekly she should remain on it indefinitely.[facility] [place] [address] Work Phone: [facility] Work Phone[facility] Discharge instructions No data available for this section [facility] Progress note No data available for this section [facility] Summary Purpose Family History No Family History Records FoundUnknown Family Member Name Dates Details No pertinent family history: Mother, Father(V49.89, Z78.9) Status:Active Unknown Family Member Name Dates Details No pertinent family history: Mother, Father(V49.89, Z78.9) Status:Active Unknown Family Member Name Dates Details No pertinent family history: Mother, Father(V49.89, Z78.9) Status:Active Unknown Family Member Name Dates Details No pertinent family history: Mother, Father(V49.89, Z78.9) Status:Active Unknown Family Member Name Dates Details No pertinent family history: Mother, Father(V49.89, Z78.9) Status:Active Unknown Family Member Name Dates Details No pertinent family history: Mother, Father(V49.89, Z78.9) Status:Active Unknown Family Member Name Dates Details No pertinent family history: Mother, Father(V49.89, Z78.9) Status:Active Relationship Condition Age at Onset Recorded Date/T smooth grandfather Arthritis Unknown Malignant neoplasm of colon Unknown Disorder of liver Unknown grandmother Arthritis Unknown Hypertension Unknown Anemia Unknown mother Arthritis Unknown Osteoporosis Unknown father Hypertension Unknown Arthritis Unknown sister Arthritis Unknown Unknown Family Member Name Dates Details No pertinent family history: Mother, Father(V49.89, Z78.9) Status:Active Unknown Family Member Name Dates Details No pertinent family history: Mother, Father(V49.89, Z78.9) Status:Active Unknown Family Member Name Dates Details No pertinent family history: Mother, Father(V49.89, Z78.9) Status:Active Unknown Family Member Name Dates Details No pertinent family history: Mother, Father(V49.89, Z78.9) Status:Active Unknown Family Member Name Dates Details No pertinent family history: Mother, Father(V49.89, Z78.9) Status:Active Unknown Family Member Name Dates Details No pertinent family history: Mother, Father(V49.89, Z78.9) Status:Active Unknown Family Member Name Dates Details No pertinent family history: Mother, Father(V49.89, Z78.9) Status:Active Unknown Family Member Name Dates Details No pertinent family history: Mother, Father(V49.89, Z78.9) Status:Active Advance Directives No Advanced Directives Records FoundDocuments on File Type Date Recorded Patient Durability Engineer Expl anation ACP-Advance Directive 07/18/2021 9:43 AM ACP-Advance Directive 07/09/2021 12:00 AM Latest Code Status on File Code Status Date Activated Date Inactivated Comments Full Code 07/09/2021 9:13 PM 07/14/2021 6:49 PM Healthcare Agents on File Name Relationship Healthcare Agent Relationshi p Communication Artis Love Spouse Primary Decision Maker Advance Directive Response Recorded Date/ Time Name of Medical Power of Dietary Aide Cook KATI LOVE August 27, 2021 2:04pm Advance Directives Yes April 1:35pm Living Will Yes January 03, 2021 6:34pm Power of Dietary Aide Cook Yes January 03 6:34pm Documents on File Type Date Recorded Patient Durability Engineer Expl anation HealthCare Power of Dietary Aide Cook 11/20/2001 12:00 AM Advance Directives/Living Will 11/20/2001 12:00 AM Latest Code Status on File Code Status Date Activated Date Inactivated Comments Full Code 01/04/2021 6:01 PM Healthcare Agents on File Name Relationship Healthcare Agent Rubenhi p Communication Artis Love Spouse Primary Decision Maker Advance Directive Response Recorded Date/ Time Advance Directives Yes December 06 2:48pm Living Will Yes December 06, 2021 2 :48pm Power of Dietary Aide Cook Yes December 06, 2021 2:48pm Name of Medical Power of Dietary Aide Cook KATI LOVE August 27, 2021 2:04pm Advance Directive Response Recorded Date/ Time Advance Directives Yes December 06 2:48pm Living Will Yes December 06, 2021 2 :48pm Power of Dietary Aide Cook Yes December 06, 2021 2:48pm Advance Directive Response Recorded Date/ Time Advance Directives Yes December 06 1:48pm Living Will Yes December 06, 2021 1 :48pm Power of Dietary Aide Cook Yes December 06, 2021 1:48pm Documents on File Type Date Recorded Patient Durability Engineer Expl anation Advance Directives and Living Will 07/09/2021 Date Activated Date Inactivated Comments 01/23/2024 1:53 PM 01/24/2024 5:30 PM Question Answer Comments ICU transfer: Yes Intubation: No Date Activated Date Inactivated Comments 01/22/2024 1:41 PM 01/23/2024 1:53 PM Documents on File Type Date Recorded Patient Durability Engineer Expl anation Advance Directives and Livin g Will 01/25/2024 12:53 PM Advance Directives and Livin g Will 07/09/2021 Chief Complaint * Patient states here for Hydrogen Breath Test, symptoms along with last meal compliance, and no antibiotics verified. Two sample breaths were obtained followed by ingestion of 75 grams of dextrose substrate, mixed with 8 ounces of water. Sample breaths were then obtained every 15 minutes for a totalof 135 minutes. Test was discontinued, results read then faxed to Dr Abdoul Capellan. Patient tolerated well. Instructed patient to follow up with her provider. * Baseline: (H2) 1 ;(CH4) 9 ;(CO2) 6.3 ;(Pablo) 0.97 * Highest : (H2) 34 ;(CH4) 17 ;(CO2) 6.8 ;(Pablo) 0.90 at 120 ' FUV in office today for SIBO. Patient was recently admitted to the ICU at [facility] for low sodium levels. Patient is still having gassiness and bloating. Patient is also having several BM 1-2 hours after she wakes up in the morningFUV here for 2 month check with IBS and GERD. Still having some GERD symptoms but not near as oftenor severe. Still having the IBS but not near as often or as frequent. Is having abdominal pain whenshe has to have a BM, denies constipation or diarrhea but is having very soft stool, but no black or tarry stool. Denies vomiting and nausea. Is still taking the Protonix and it is working. Is not jael ing anything for the IBS.FUV in office today for SIBO. Patient is still having several BM daily every morning starting as formed and then will change to soft pudding like BM. Last time taking Xifaxan was December 24-January 08. Patient states that the Xifaxan did not help enough to continue to pay high prices for it.FUV in office today for 2 month follow up. Patient has seen several physicians since last visit including another GI doctor for a second opinion. Patient had EGD and Colonoscopy completed by Dr. Bryan. Pt does not have biopsy results back yet on those. Pt states that she is still having such bad IBS in the mornings that she can not leave the house for several hours due to extreme diarrhea.FUV in office today for IBS. Patient states she is better since last visit. Patient states she was taken off Aricept and has improved. Patient still reports unable to go anywhere in the AM until she has a successful BM Chief Complaint and Reason for Visit Chief Complaint EORDER-HUGO JULIO/ Jennifer DDT ORDER URINE Other symptoms and signs involving cognitive funct CONFUSION EORDER MENTAL STATUS CHANGE EORDER LEFT POST BREAST BX MAMMOGRAM RESULTS 08/15 PERMANENT SPINAL CORD STIM IMPLANT X 2 LEADS Reason for Visit Mild cognitive impai rment Abnormal ultrasound of breast Chief Complaint MENTAL STATUS CHANGE EORDER LEFT POST BREAST BX MAMMOGRAM RESULTS 08/15 PERMANENT SPINAL CORD STIM IMPLANT X 2 LEADS est care (NELSY) 3 ORDERS/ 3DRS- COPY ALL Reason for Visit Mild cognitive impai rment Valvular heart disease Essential hypertension Lower extremity edema Chief Complaint MENTAL STATUS CHANGE EORDER LEFT POST BREAST BX MAMMOGRAM RESULTS 08/15 PERMANENT SPINAL CORD STIM IMPLANT X 2 LEADS est care (NELSY) 3 ORDERS/ 3DRS- COPY ALL MURMUR Reason for Visit Mild cognitive impai rment Essential hypertension Lower extremity edema Chief Complaint LEFT POST BREAST BX MAMMOGRAM RESULTS 08/15 PERMANENT SPINAL CORD STIM IMPLANT X 2 LEADS est care (NELSY) 3 ORDERS/ 3DRS- COPY ALL MURMUR EORDER PATIENT REQUESTED, HAVING ISSUES Reason for Visit Essential hypertensi on Lower extremity edema Dementia Fatigue Iron deficiency anemia Chief Complaint PERMANENT SPINAL COR D STIM IMPLANT X 2 LEADS est care (NELSY) 3 ORDERS/ 3DRS- COPY ALL MURMUR EORDER PATIENT REQUESTED, HAVING ISSUES EORDER Reason for Visit Essential hypertensi on Lower extremity edema Dementia Fatigue Iron deficiency anemia Chief Complaint est care (NELSY) 3 ORDERS/ 3DRS- COPY ALL MURMUR EORDER PATIENT REQUESTED, HAVING ISSUES EORDER URINE Reason for Visit Essential hypertensi on Lower extremity edema Dementia Fatigue Iron deficiency anemia Chief Complaint EORDER PATIENT REQUESTED, HAVING ISSUES EORDER URINE Reason for Visit Dementia Fatigue Iron deficiency anemia Chief Complaint 6 M FU STOOL 4 M FU Reason for Visit Essential hypertensi on Left carotid bruit Dementia Chief Complaint 6 M FU STOOL 4 M FU RIGHT CAROTID BRUIT Reason for Visit Essential hypertensi on Left carotid bruit Dementia Chief Complaint 6 M FU MEDICATIONS DO BOTH ORDERS- BMP, RENAL PANEL, URINE ON 11/14/22 Reason for Visit Essential hypertensi on Memory loss Chief Complaint DO BOTH ORDERS- BMP, RENAL PANEL, URINE ON 11/14/22 9 M FU Chief Complaint 9 M FU LABS Reason for Referral Specialty Diagnoses / Procedures Referred By Erik guerrero Referred To Contact Procedures PLATELET MONITORING PER PROTOCOL Vern Rubio MD [address] [place] [address] Referral ID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 [place] [address] General Surgery 09/03/19 Hazel Dupree [address] [facility] [address] [place] [address] Urology 07/03/21 Clay Miner Relationship Specialty Start Date End Date Hugo Julio MD PCP - General Family Medicine 01/22/11 David Puga, DO [address] [place] [address] Endocrinology 09/03/19 Tiara Buck I, DO [address] [place] [address] Nephrology 09/03/19 Gustavo Yusufv A [address] [place] [address] General Surgery 09/03/19 Hazel Dupree [address] [facility] [address] [place], [place] [address] Urology 07/03/21 Clay Miner Relationship Specialty Start Date End Date Hugo Julio MD PCP - General Family Medicine 01/22/11 David Puga, DO [address] [place] [address] Endocrinology 09/03/19 Tiara Buck I, DO [address] [place], [place] [address] Nephrology 09/03/19 Jack Meraz, Carlos A [address] [place] [address] General Surgery 09/03/19 Hazel Dupree [address] [facility] [address] [place], [place] [address] Urology 07/03/21 Clay Miner Relationship Specialty Start Date End Date Hugo Julio MD PCP - General Family Medicine 01/22/11 David Puga, DO [address] [place] [address] Endocrinology 09/03/19 Tiara Buck I, DO [address] [place] [address] Nephrology 09/03/19 Gustavo Yusufv A [address] [place] [address] General Surgery 09/03/19 Hazel Dupree [address] [facility] [address] [address] [address] [place], [place] [address] Urology 07/03/21 Clay Miner Relationship Specialty Start Date End Date Hugo Julio MD PCP - General Family Medicine 01/22/11 David Puga, DO [address] [place] [address] Endocrinology 09/03/19 Tiara Buck I, DO [address] [place], [place] [id number] Nephrology 09/03/[id number] [place], [place] [id number] General Surgery 09/03/19 Hazel Dupree [address] [place], [place] [address] Urology 07/03/21 Clay Miner Relationship Specialty Start Date End Date Julio Hugo Jennifer [address] [place] [phone] PCP - General 11/12/21 Team Status: Active Member Role Status Dates Dr. Hugo Julio MD Family Provider Active Dr. Hugo Julio MD Primary Care Provider Active Team Status: Inactive Member Role Status Dates Dr. Hugo Julio MD Primary Care Provider, Referring P rovider Active Mary Blank PA, PA Attending Provider Active Team Status: Inactive Member Role Status Dates Dr. Hugo Julio MD Primary Care Provider, Referring P rovider Active Dr. Chris Campoverde MD Attending Provider Active Team Status: Inactive Member Role Status Dates Dr. Hugo Julio MD Primary Care Provider Active TERA HEALY Attending Provider, Referring Provider Active Team Status: Inactive Member Role Status Dates Dr. Hugo Julio MD Primary Care Provider Active Dr. David Puga , DO Attending Provider, Referring Provider Active Team Status: Inactive Member Role Status Dates Dr. Hugo Julio MD Primary Care Provider Active Dr. Tiara Buck , Attending Provider, Referring P rovider Active Dr. David Puga , Other Provider Active Team Status: Inactive Member Role Status Dates Dr. Hugo Julio MD Primary Care Provider, Attending P rovider Active Team Status: Inactive Member Role Status Dates Dr. Hugo Julio MD Primary Care Provider Active Dr. Aleksey Hill MD Attending Provider, Referring Provider Active Clay Miner Relationship Specialty Start Date End Date Hugo Julio MD [address] [place] [address] PCP - General 08/08/14 Hugo Julio MD [address] [place] [address] 08/08/14 Clay Miner Relationship Specialty Start Date End Date Hugo Julio MD [address] [place] [address] PCP - General 08/08/14 Hugo Julio MD [address] [place] [address] 08/08/14 Clay Miner Relationship Specialty Start Date End Date Hugo Julio [address] [place] [address] PCP - General 11/12/21 Clay Miner Relationship Specialty Start Date End Date Hugo Julio [address] [place] [address] PCP - General 11/12/21 Clay Miner Relationship Specialty Start Date End Date Hugo Julio MD [address] [place] [address] PCP - General 08/08/14 Hugo Julio MD [address] [place] [address] 08/08/14 Clay Miner Relationship Specialty Start Date End Date Hugo Julio MD [address] [place] [phone] PCP - General Physician Masking Machine Operator 05/07/23 Clay Miner Relationship Specialty Start Date End Date Hugo Julio MD [address] [place] [phone] PCP - General Physician Masking Machine Operator 05/07/23 Source Comments (unrecognize d section and content) In the event this informatio n is protected by the Federal Confidentiality of Alcohol and Drug Abuse Patient Records regulations: The Federal rules restrict any use of the information to criminally investigate or prosecute any alcohol or drug abuse patient.[facility] Hospital[facility] the event this information is protected by the Federal Confidentiality of Alcohol and Drug Abuse Patient Records regulations: The Federal rules restrict any use of the information to criminally investigate or prosecute any alcohol or drug abuse patient.[facility] HospitalIn the event this information is protected by the Federal Confidentiality of Alcohol and Drug Abuse Patient Records regulations: The Federal rules restrict any use of the information to criminally investigate or prosecute any alcohol or drug abuse patient.[facility] HospitalIn the event this information is protected by the Federal Confidentiality of Alcohol and Drug Abuse Patient Records regulations: The Federal rules restrict any use of the information to criminally investigate or prosecute any alcohol or drug abuse patient.[facility] HospitalIn the event this information is protected by the Federal Confidentiality of Alcohol and Drug Abuse Patient Records regulations: The Federal rules restrict any use of the information to criminally investigate or prosecute any alcohol or drug abuse patient.[facility] HospitalIn the event this information is protected by the Federal Confidentiality of Alcohol and Drug Abuse Patient Records regulations: The Federal rules restrict any use of the information to criminally investigate or prosecute any alcohol or drug abuse patient.[facility] HospitalIn the event this information is protected by the Federal Confidentiality of Alcohol and Drug Abuse Patient Records regulations: The Federal rules restrict any use of the information to criminally investigate or prosecute any alcohol or drug abuse patient.[facility] FOR RECORDS PERTAINING TO PATIENTS WHO ARE OR HAVE BEEN ENROLLED IN A CHEMICAL DEPENDENCY/SUBSTANCEABUSE PROGRAM, SOME INFORMATION MAY BE OMITTED. This clinical summary was aggregated from multiple sources. Caution should be exercised in using it in the provision of clinical care. This summary normalizes information from multiple sources, and as a consequence, information in this document may materially change the coding, format and clinical context of patient data. In addition, data may be omitted in some cases. CLINICAL DECISIONS SHOULD BE BASED ON THE PRIMARY CLINICAL RECORDS. [employer] [facility] provides no warranty or guarantee of the accuracy or completeness of information in this document.
== END | disposition home or self-care (01) ==
LOC: CT 14:14
PROVIDERS: PCP Family Medicine; Referring Provider Physician Assistant Medical; Visit Provider Physician Assistant Medical
DX: I26.99 Other pulmonary embolism without acute cor pulmonale (principal)
CPT/HCPCS: 71275; Q9967; A4216

== ENCOUNTER 2025-04-25 08:52 | Outpatient (CLI) | payer MEDICARE, OTHER, SELFPAY ==
[2025-04-28 15:08] LABS: Calprotectin, Stool 306 ug/g (0-120)
== END 2025-04-25 23:59 | disposition home or self-care (01) ==
LOC: MTLAB 08:53
PROVIDERS: PCP Family Medicine; Referring Provider Student in an Organized Health Care Education/Training Program; Visit Provider Student in an Organized Health Care Education/Training Program
DX: K58.0 Irritable bowel syndrome with diarrhea (principal)
CPT/HCPCS: 83993; 87177; 87209; 87329; 87493; 87506

== ENCOUNTER → 2025-05-02 | Outpatient (CLI) | payer MEDICARE, OTHER, SELFPAY ==
--- NOTE | 2025-05-02 12:34 | RAD_ITS ---
PROCEDURE: CHEST PA AND LATERAL 05/02/2025 REASON FOR EXAM: PNEUMONIA TECHNIQUE: Procedure Code: RADCXR Modality: DX Procedure: CHEST PA AND LATERAL COMPARISON: April 24, 2024 FINDINGS: A spinal stimulator is noted with its tip extending in the lower thoracic region. Surgical clips are present in the upper abdomen. Heart size and mediastinal configuration are within normal limits. There is minimal atelectasis or scar at the right and left lung base, similar to the prior. There is no pneumothorax or significant effusion. Aortic calcifications are visible. There is no acute bony abnormality. RAD/Chest PA and Lateral IMPRESSION: There is minimal atelectasis or scar at the right and left lung base, similar t o the prior. Reading Location: [facility]
[2025-05-02 15:03] LABS: Hematocrit 35.7 % (37-47); Hemoglobin 11.3 g/dL (12.0-15.0); Immature Granulocytes Count 0.030 X10^3/uL (0.0-0.0); Mean Corp Hgb Conc 31.7 g/dL (32-36); Mean Corpuscular Volume 102.9 fL (81-99); Mean Platelet Vol. 10.1 fl (6.2-12.0); NRBC Flagged by Analyzer 0 % (0-5); Platelet Count 230 K/mm3 (150-450); RBC Distribution Width CV 13.5 % (11.6-14.6); RBC Distribution Width SD 51.1 fl (35.1-43.9); Red Blood Count 3.47 M/mm3 (4.2-5.4); White Blood Count 7.9 K/mm3 (4.4-11.0)
== END | disposition home or self-care (01) ==
LOC: MTLAB 12:33
PROVIDERS: PCP Family Medicine; Referring Provider Family Medicine; Visit Provider Family Medicine
DX: J18.9 Pneumonia, unspecified organism (principal)
CPT/HCPCS: 36415; 71046; 85025

== ENCOUNTER → 2025-05-19 | Outpatient (CLI) | payer MEDICARE, OTHER, SELFPAY ==
--- NOTE | 2025-05-19 16:35 | CT_ITS ---
PROCEDURE: BRAIN/HEAD W/WO CONTRAST 05/19/2025 REASON FOR EXAM: Clinical history of harlequin syndrome TECHNIQUE: Procedure Code: CTBRWW Modality: CT Procedure: BRAIN/HEAD W/WO CONTRAST Coronal and Sagittal reconstruction series were provided. CONTRAST: Isovue 370 VOLUME: 50 mL One or more dose reduction techniques were used (e.g., Automated exposure control, adjustment of the mA and/or kV according to patient size, use of iterative reconstruction technique). RADIATION DOSE SUMMARY: DLP: 1547.23 mGycm COMPARISON: CT head 01/03/2021. FINDINGS: No acute hemorrhage. No acute infarct. There is no intracranial enhancing lesion. Patchy nonspecific periventricular and subcortical white matter hypodensities compatible with chronic microvascular ischemic changes. No significant mass effect or brain herniation. Mild global cerebral volume loss. No hydrocephalus. No extra-axial fluid collection. The basal cisterns are patent. The mastoid air cells are clear. Scattered paranasal mucosal thickening. The calvarium appears intact. Atherosclerotic calcification of the carotid siphons. CT/Brain/Head W/WO Contrast IMPRESSION: 1. No acute intracranial pathology or enhancing intracranial lesion. 2. Chronic microvascular ischemic changes. Reading Location: [id number]
== END | disposition home or self-care (01) ==
LOC: CT 16:21
PROVIDERS: PCP Family Medicine; Referring Provider Urology; Visit Provider Urology
DX: G90.89 Other disorders of autonomic nervous system (principal)
CPT/HCPCS: 70470; Q9967; A4216

== ENCOUNTER 2025-05-25 10:20 | Day surgery (SDC) | payer MEDICARE, OTHER, SELFPAY ==
--- NOTE | 2025-05-20 17:43 | PAT.ANE_ITS ---
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 When Was Last Pacemaker Check QUESTION #4 FULL TEXT: You/Your Family Experience fever (hyperthermia) with Anesthesia Last Oral Intake Last Oral intake: Last Oral Intake NPO since Meds taken in AM with sips of water? Meds patient instructed to take am of surgery PONV PONV - director of graduate admissions: PONV - director of graduate admissions Female Yes 05/20/25 13:46 HX of Motion Sickness No 05/20/25 13:46 HX of N/V After Surgery No 05/20/25 13:46 Non-Smoker Yes 05/20/25 13:46 Duration of Surgery greater No 05/20/25 13:46 than 60 minutes Number of Risk Factors 2 05/20/25 13:46 PONV Score Moderate Risk 05/20/25 13:46 Height & Weight Height & Weight: Anesthesia: Height & Weight Height 4 ft 8 in 05/09/25 15:18 Respiratory Assessment Respiratory Assessment - director of graduate admissions: Respiratory Tract Infection Hx - director of graduate admissions Hx Respiratory Tract Infection Yes: DX PNEUMONIA 05/07/25 PT 05/20/25 13:46 STILL ON ANTIBIOTICS STOP Sleep Apnea STOP Sleep Apnea - director of graduate admissions: STOP Sleep Apnea - director of graduate admissions Hx Hypertension Yes: CONTROLLED ON MED 05/20/25 13:46 Hx Sleep Apnea No 05/20/25 13:46 CPAP Yes: not used after gastric 05/20/25 13:46 bypass 2013 BIPAP No 05/20/25 13:46 Do you snore loudly (louder No 05/20/25 13:46 than talking or can be heard Do you often feel tired/ No 05/20/25 13:46 fatigued/ sleepy during daytime? Has anyone observed you stop No 05/20/25 13:46 breathing during sleep? STOP Results Negative 05/20/25 13:46 QUESTION #5 FULL TEXT : Do you snore loudly (louder than talking or can be heard through closed doors)? 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 Specify any problems Hx of Preganancy in last 3 No 05/20/25 13:46 Months Nurse Filling Out Transfusion VCHRISTIN 05/20/25 13:46 & Questions: Date: 05/20/25 05/20/25 13:46 Time: 13:48 05/20/25 13:46 Patient unable to answer at this time (ie. confused, unrespo /Reproduction History /Reproductive History - director of graduate admissions: /Reproductive Hx- director of graduate admissions Hx Now No 05/20/25 13:46 Gestational Age (in weeks): EDC: Hx Hx Para Hx Section SAB No 05/20/25 13:46 Does the father of the baby or his family experience fever w Father of the baby Malignant Hypertension history comment PFSH Medical History (Updated 05/20/25 @ 13:46 by Komal Menjivar) Pneumonia Recurrent UTI (urinary tract infection) Vaginal atrophy Vaginal vault prolapse after hysterectomy Frequency of urination Cystocele, midline Nocturia Overactive bladder Presence of upper and lower permanent dental bridges Wears hearing aid Cancer Bruising History of renal disease Bladder disease Pulmonary embolism Gastric reflux History of echocardiogram Cardiology follow-up encounter Urge incontinence of urine Candidiasis of female genitalia Peritoneal free air Breast mass, right Nonrheumatic aortic (valve) stenosis Lower extremity edema Essential hypertension Wears glasses Post-menopausal Abrasion Walker as ambulation aid Easy bruising Back pain History of IBS Non-smoker History of pain when walking History of edema Mild cognitive impairment Low sodium levels Steroid-induced psychosis Cystocele Heel spur Vitamin deficiency Skin cancer GERD (gastroesophageal reflux disease) Osteoporosis Osteoarthritis Kidney stones Kidney disease IBS (irritable bowel syndrome) Gout Gallstones Breast lump Bone fracture UTI (urinary tract infection) Abnormal ultrasound of breast Skin lesion Constipation Diarrhea Arthritis History of back problems Diabetes History of change in bowel patterns Hiatal hernia Home Medications ?Medication ?Instructions ?Recorded ?Last Taken ?Type lactobacillus combination no.8 3 3,000 mmu cells PO DA SHERRY 11/24/18 10/13/24 History billion cell capsule (Adult Probiotic) gabapentin 300 mg capsule 300 mg PO TID 04/27/2410/14 History melatonin 3 mg capsule 3 mg PO BID 05/19/24 5 History carvedilol 25 mg tablet 6.25 mg PO BID 07/01/2409/30 History apixaban 5 mg tablet (Eliquis) 5 mg PO BID 10/12/24 History acetaminophen 500 mg capsule 500 mg PO Q4H PRN pain Unknown History calcium 250 mg-magnesium 40 mg-D3 1 tab PO TID 5 Unknown History 125 unit-zinc 3.71cs-ujg-aqtg tablet (Calcium Citrate Plus) carbamazepine 100 mg 100 mg PO BID 10/21/24 Unkno wn History capsule,extended release [id number] (Carbatrol) cholestyramine 4 gram oral powder 8 g PO QDAY 10/21/24 Unknown History for suspension in a packet finerenone 10 mg tablet (Kerendia) 10 mg PO QDAY 10/21 Unknown History urizwvvk-zntqtlpd-dohu 45 mg-folic 1 cap PO .QD Unknown History acid 800 mcg-vit K 120 mcg capsule (Bariatric Multivitamins) ztcdbu-ktbtdvjp-yoxlhmt (pork) 2 cap PO TIDCM 02/21/25 Unknown History 3,000-10,000-14k unit capsule,del rel (Zenpep) mirabegron 50 mg tablet,extended See Rx Instructions P O QDAY #180 03/18/25 Unknown Rx release 24 hr (Myrbetriq) tabs denosumab 60 mg/mL subcutaneous 60 mg subcut [id number] 04/25/25 Unknown History syringe (Prolia) pantoprazole 40 mg tablet,delayed 40 mg PO BID 5 Unknown History release semaglutide 0.25 mg or 0.5 mg (2 0.25 mg subcut QWEEK 04/25/25 05/16/25 History mg/3 mL) subcutaneous pen injector (Ozempic) spironolactone 25 mg tablet 25 mg PO QDAY 04/25/25 Unk nown History tolterodine 2 mg capsule,extended 2 mg PO Q24H 5 Unknown History release 24 hr furosemide 20 mg tablet (Lasix) 40 mg PO DAILY 5 Unknown History losartan 100 mg tablet 100 mg PO DAILY 05/03/25 Unk nown History amoxicillin 875 mg-potassium 1 tab PO Q12H 05/09/25 Un known History clavulanate 125 mg tablet calcitriol 0.25 mcg capsule 0.25 mcg PO DAILY 05/20/25 Unknown History calcium citrate 200 mg PO DAILY 05/20/25 Unk nown History cephalexin 250 mg capsule 250 mg PO QHS 05/20/25 Unkno wn History methenamine hippurate 1 gram tablet 1 g PO BID 5 Unknown History oxycodone-acetaminophen 7.5 mg-325 1 tab PO TID PRN AL N pain 05/20/25 Unknown History mg tablet potassium citrate 10 mEq (1,080 10 meq PO DAILY Unknown History mg) tablet,extended release Allergy/AdvReac Type Severity Reaction Status Date / Time Corticosteroids AdvReac Severe Other Verified 05/20/25 13:26 (Glucocorticoids) NSAIDS (Non-Steroidal AdvReac Severe Other Verified 05/20/25 13:26 Anti-Inflamma Family History Grandfather Arthritis Colon cancer Liver disease Grandmother Arthritis Hypertension Anemia Mother Arthritis Osteoporosis Father Hypertension Arthritis Liver disease Sister Arthritis Surgical History (Updated 05/20/25 @ 13:46 by Komal Menjivar) Hx of colonoscopy S/P insertion of spinal cord stimulator History of left heart catheterization History of open reduction and internal fixation (ORIF) procedure History of cardiac catheterization (2009) Hx of spinal fusion Hx of surgical procedure Hx of surgical procedure Hx laparoscopic cholecystectomy Hx of hysterectomy Hx of colonoscopy History of bursectomy H/O laminectomy Hx of cataract surgery H/O gastric bypass S/P vaginopexy History of repair of rectocele history excision melanoma forehead History of bilateral knee replacement Social History Smoking Status: Never smoker alcohol intake: never substance use type: does not use caffeine: No what type of physical activity do you participate in: other details: PT for strength & balance corinne/oriental orthodox: Adventist seatbelt use: always Audit: Pertinent Findings Pertinent Findings EKG Perinent findings: 04/24/2024. Sinus rhythm with PACs. Echo (EF%) pertinent findings: 11/19/2023. Normal LV function. Mild to moderate aortic stenosis. Consult pertinent findings: 05/03/2025. Dr. Urias. 1. Hypertension-under good control. No changes at this time. 2. Nonrheumatic aortic valve stenosis-mild to moderate stenosis. Stable at this time. Denies any recent symptoms or events. 3. Pulmonary embolism-June 2024. Continue with anticoagulation. Recommendation Anesthesia Recommendation Anesthesia recommendation: OPTIMIZED for anesthesia (Patient has mild to moderate aortic stenosis. Avoid increased heart rate and decrease blood pressures. Phenylephrine is drug of choice.)
[2025-05-25] VITALS (8 sets, daily range): BP systolic 94–156; BP diastolic 47–70; PULSE 73–94; RESP 16–18; TEMP 36.4–36.9; O2SAT 100; BMI 30.1
--- NOTE | 2025-05-25 10:28 | PCM.HP.STD ---
HPI - General General Date of Admission: 05/25/25 Date of Service: 05/25/25 Chief Complaint: diarrhea HPI Narrative SHIRLEY HIGUERA, is a 79 F who presents Crohn's disease, inflammatory type : Chronic inflammatory Crohn?s with prior imaging showing persistent inflammation without progression; no evidence discussed of stricturing or fistulizing complications. Symptoms fluctuate with dietary triggers (e.g., pizza). Counseling provided regarding the inflammatory effects of sugars/carbohydrates; objective monitoring planned. - Order blood work and stool tests to assess disease activity; patient will complete after [place]. 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 Type 2 diabetes mellitus : On weekly Trulicity with sustained improvement in A1c from ~6.7 at diagnosis to ~5.7?5.8 per primary care follow-up every 3?4 months. No changes discussed today.] [facility] Medical History Pneumonia Recurrent UTI (urinary tract infection) Vaginal atrophy Vaginal vault prolapse after hysterectomy Frequency of urination Cystocele, midline Nocturia Overactive bladder Presence of upper and lower permanent dental bridges Wears hearing aid Cancer Bruising History of renal disease Bladder disease Pulmonary embolism Gastric reflux History of echocardiogram Cardiology follow-up encounter Urge incontinence of urine Candidiasis of female genitalia Peritoneal free air Breast mass, right Nonrheumatic aortic (valve) stenosis Lower extremity edema Essential hypertension Wears glasses Post-menopausal Abrasion Walker as ambulation aid Easy bruising Back pain History of IBS Non-smoker History of pain when walking History of edema Mild cognitive impairment Low sodium levels Steroid-induced psychosis Cystocele Heel spur Vitamin deficiency Skin cancer GERD (gastroesophageal reflux disease) Osteoporosis Osteoarthritis Kidney stones Kidney disease IBS (irritable bowel syndrome) Gout Gallstones Breast lump Bone fracture UTI (urinary tract infection) Abnormal ultrasound of breast Skin lesion Constipation Diarrhea Arthritis History of back problems Diabetes History of change in bowel patterns Hiatal hernia Home Medications ?Medication ?Instructions ?Recorded ?Last Taken ?Type lactobacillus combination no.8 3 3,000 mmu cells PO DAILY 11/24/18 10/13/24 History billion cell capsule (Adult Probiotic) gabapentin 300 mg capsule 300 mg PO TID 04/27/24 10/14/24 History melatonin 3 mg capsule 3 mg PO BID 05/19/24 10/13/24 History carvedilol 25 mg tablet 6.25 mg PO BID 07/01/24 10/14/24 History apixaban 5 mg tablet (Eliquis) 5 mg PO BID 10/12/24 09/28/24 History acetaminophen 500 mg capsule 500 mg PO Q4H PRN pain 10/21/24 Unknown History calcium 250 mg-magnesium 40 mg-D3 1 tab PO TID 10/21/24 Unknown History 125 unit-zinc 3.76ia-azi-eoka tablet (Calcium Citrate Plus) carbamazepine 100 mg 100 mg PO BID 10/21/24 Unknown History capsule,extended release [id number] (Carbatrol) cholestyramine 4 gram oral powder 8 g PO QDAY 10/21/24 Unknown History for suspension in a packet finerenone 10 mg tablet (Kerendia) 10 mg PO QDAY 10/21/24 Unknown History ujxrjcyr-ielilckx-gvec 45 mg-folic 1 cap PO .QD 10/21/24 Unknown History acid 800 mcg-vit K 120 mcg capsule (Bariatric Multivitamins) ivpmyn-jzhrbaef-ozvsvdh (pork) 2 cap PO TIDCM 02/21/25 Unknown History 3,000-10,000-14k unit capsule,del rel (Zenpep) mirabegron 50 mg tablet,extended See Rx Instructions PO QDAY #180 03/18/25 Unknown Rx release 24 hr (Myrbetriq) tabs denosumab 60 mg/mL subcutaneous 60 mg subcut [id number] 04/25/25 Unknown History syringe (Prolia) pantoprazole 40 mg tablet,delayed 40 mg PO BID 04/25/25 Unknown History release semaglutide 0.25 mg or 0.5 mg (2 0.25 mg subcut QWEEK 04/25/25 05/16/25 History mg/3 mL) subcutaneous pen injector (Ozempic) spironolactone 25 mg tablet 25 mg PO QDAY 04/25/25 Unknown History tolterodine 2 mg capsule,extended 2 mg PO Q24H 04/25/25 Unknown History release 24 hr furosemide 20 mg tablet (Lasix) 40 mg PO DAILY 05/03/25 Unknown History losartan 100 mg tablet 100 mg PO DAILY 05/03/25 Unknown History amoxicillin 875 mg-potassium 1 tab PO Q12H 05/09/25 Unknown History clavulanate 125 mg tablet calcitriol 0.25 mcg capsule 0.25 mcg PO DAILY 05/20/25 Unknown History calcium citrate 200 mg PO DAILY 05/20/25 Unknown History cephalexin 250 mg capsule 250 mg PO QHS 05/20/25 Unknown History methenamine hippurate 1 gram tablet 1 g PO BID 05/20/25 Unknown History oxycodone-acetaminophen 7.5 mg-325 1 tab PO TID PRN PRN pain 05/20/25 Unknown History mg tablet potassium citrate 10 mEq (1,080 10 meq PO DAILY 05/20/25 Unknown History mg) tablet,extended release Allergy/AdvReac Type Severity Reaction Status Date / Time Corticosteroids AdvReac Severe Other Verified 05/20/25 13:26 (Glucocorticoids) NSAIDS (Non-Steroidal AdvReac Severe Other Verified 05/20/25 13:26 Anti-Inflamma Family History Grandfather Arthritis Colon cancer Liver disease Grandmother Arthritis Hypertension Anemia Mother Arthritis Osteoporosis Father Hypertension Arthritis Liver disease Sister Arthritis Surgical History Hx of colonoscopy S/P insertion of spinal cord stimulator History of left heart catheterization History of open reduction and internal fixation (ORIF) procedure History of cardiac catheterization (2009) Hx of spinal fusion Hx of surgical procedure Hx of surgical procedure Hx laparoscopic cholecystectomy Hx of hysterectomy Hx of colonoscopy History of bursectomy H/O laminectomy Hx of cataract surgery H/O gastric bypass S/P vaginopexy History of repair of rectocele history excision melanoma forehead History of bilateral knee replacement Social History Smoking Status: Never smoker alcohol intake: never substance use type: does not use caffeine: No what type of physical activity do you participate in: other details: PT for strength & balance corinne/islam: Taoism seatbelt use: always ROS Constitutional Constitutional: Denies fatigue, fever(s), poor appetite, weight gain or weight loss Gastrointestinal Gastrointestinal: Denies belching, bloating, change in bowel habits, change in stool character, chewing difficulty, coffee ground emesis, constipation, cramping, diarrhea, dyspepsia, dysphagia, early satiety, excessive flatus, fecal incontinence, heartburn, hematemesis, hematochezia, hemorrhoids, loose stools, melena, nausea, odynophagia, rectal bleeding, tenesmus, vomiting or weight changes Patient's Goals Of Care . What would you like to achieve or improve as a result of your hospital stay?: none Physical Exam Const alert, oriented x3, no apparent distress and healthy appearing General Appearance: cooperative GI normal to inspection, nondistended, normoactive bowel sounds, soft to palpation, non-tender and non-distended Percussion: normal to percussion Rectal Exam: deferred Assessment & Plan Assessment/Plan (1) Diarrhea: (2) Exocrine pancreatic insufficiency: (3) Rectal pain: PLAN: Diarrhea: Status: Acute Plan: Shirley is a 79-year-old female patient with past medical history of hypertension, aortic stenosis, dementia, PE, diabetes and overactive bladder here today for follow-up. Patient with chronic diarrhea up to 5-7 times during the day and 3 during the night. She underwent colonoscopy in September 2024 that was without abnormalities. There were no biopsies taken for microscopic colitis. In October 2024 she had a calprotectin that was mildly elevated in the 150s. She continues with Zenpep, Imodium and cholestyramine daily. She was recently started on dicyclomine which may help with her rectal spasming and pain. I recommended repeat stool testing for infection and inflammation. Will consider further workup and treatment pending results. - Stool testing - Continue current medications - Follow-up
--- OUTSIDE RECORDS SUMMARY | 2025-05-25 10:42 | XMS RPT_ITS | CCD ---
Author Organization [facility] Care Team Providers Care Phlebotomist Supervisor/Instructor Name Role Phone Hugo Julio Unavailable Unavailable Unavailable Unavailable Unavailable VERN RUBIO Admitting Unavaila ble CONSULT, PSYCHIATRY Consulting Unavailable MARLON SHEETS Attending Unavailable HUGO JULIO Primary Care Unavailable Unavailable Primary Care Provider Unavailabl e Dr. Hugo Julio Primary Care Provider Dr. Hugo Julio Referring Provider Dr. Chris Campoverde Attending Provider Dr. Garrison Alvarez Attending Provider Hugo Julio MD Primary Care Provider Tera BREAUX, Carlos Unavailable Unavailable David Puga DO Unavailable Dr. Hugo Urias Attending Provider Hugo Julio Primary Care Provider Dr. Hugo Julio Primary Care Provider Dr. Hugo Julio Referring Provider [phone] Chris Campoverde Attending Provider [phone] Dr. Hugo Julio Primary Care Provider Dr. Hugo Julio Referring Provider CARLOS GRANADOS Unavailable Hugo Julio MD Primary Care Provider [phone] David Puga DO Unavailable Heber I, DO, Tiara Unavailable Jack Meraz, Carlos A Unavailable Hazel Dupree Unavailable Dr. Hugo Julio Primary Care Provider [phone] Dr. Hugo Julio Referring Provider [phone] Hugo Julio MD Primary Care Provider [phone] David Puga DO Unavailable Heber Bill DO Tiara Unavailable Gustavo Yusufv A Unavailable Hazel Dupree Unavailable Dr. Hugo Julio Primary Care Provider Dr. Hugo Julio Referring Provider [phone] Rosamaria LO, PA Mary Ames Attending Provider Dr. Chris Campoverde Attending Provider Dr. Garrison Alvarez Attending Provider Heber Bill DO, Tiara Unavailable RENZO CALLEJAS T Referring Unavailable JULIO, HUGO VALERI Primary Care Unavailable FELICITAS, RENZO T Referring Unavailable JULIO, HUGO VALERI Primary Care Unavailable FELICITAS, RENZO T Referring Unavailable JULIO, HUGO VALERI Primary Care Unavailable JULIO, HUGO VALERI Primary Care Unavailable JULIO, HUGO VALERI Referring Unavailable FELICITAS RENZO T Attending Unavailable AAKASH BRYAN Referring Unavailable JULIO, HUGO VALERI Primary Care [...] Unavailable Julio, Hugo A Primary Care Provider [phone] Hugo Julio Primary Care Provider Dr. Hugo Julio Referring Provider [phone] Rosamaria LO, WALLY Ames Attending Provider Dr. Chris Campoverde Attending Provider [phone] Dr. Hugo Julio Primary Care Unavailable EVELYNE, DO MARILIA Mueller Attending Unavailable Nelsy, Dr. Hugo Rodriguez Referring Unavailable EVELYNE, DO MARILIA Mueller Attending Unavailable Nelsy, Dr. Hugo Rodriguez Primary Care Unavailable Nelsy, Dr. Hugo Rodriguez Referring Unavailable EVELYNE, DO MARILIA Mueller Attending Unavailable Nelsy, Dr. Hugo Rodriguez Primary Care Unavailable Nelsy, Dr. Hugo Rodriguez Referring Unavailable Nelsy, Dr. Hugo Rodriguez Primary Care Unavailable EVELYNE, DO MARILIA Mueller Attending Unavailable Nelsy, Dr. Hugo Rodriguez Referring Unavailable Nelsy, Dr. Hugo Rodriguez Primary Care Unavailable EVELYNE, DO MARILIA Mueller Attending Unavailable Nelsy, Dr. Hugo Rodriguez Referring Alisson Julio, Dr. Arias Primary Care Provider [phone] Dr. Hugo Julio Referring Provider Dr. Chris Campoverde Attending Provider Hugo Julio MD Primary Care Provider Hugo Julio MD Unavailable MARILIA STUBBS Attending Unavailable HUGO JULIO Primary Care Unavailable MARILIA STUBBS Attending Unavailable HUGO JULIO Primary Care Unavailable LUANA PARDO Attending Unavailable HUGO JULIO A Primary Care Unavailable DR KATHY MCCARTY MD Attending UnavailSHIVAM Mckeon Admitting Unavailable GIRMA ROBERTS Attending Unavailable NICOLASA ROMERO Consulting Unavailable HUGO JULIO Primary Care Unavailable ALMA ESPINOZA Attending Unavailable HUGO JULIO Primary Care Unavailable Hugo Julio MD Primary Care Provider SKYE SLULIVAN, SHANTEL Rosas Primary Care Physicia n SKYE SULLIVAN, SHANTEL Rosas Primary Care Unava ilBELKYS Tavares MD Attending Unavailable Hazel Dupree Attending Unavailable Hazel Dupree Referring Unavailable Julio, Hugo Primary Care Unavailable Herman Ochoa Attending Unavailable Julio, Hugo Primary Care Unavailable Julio, Hugo Referring Unavailable Wietecha, David Referring Unavailable Jose F Pugain Attending Unavailable Julio, Hugo Primary Care Unavailable Aviles MARIA ISABEL, Penelope Referring Unavailable Gatito INTERACTIVE MEDIA MARKETING SPECIALIST, Yecenia Attending Unavailable Julio, Hugo Primary Care Unavailable Mary Garnica Referring Unavail able Rosamaria LO, Mary Ames Attending Unavail able Julio, Hugo Primary Care Unavailable Julio, Hugo Referring Unavailable Mary Garnica Attending Unavail able Julio, Hugo Primary Care Unavailable Hazel Dupree Attending Unavailable Julio, Hugo Primary Care Unavailable Julio, Hugo Referring Unavailable TimothyJenny Attending Unavailable Julio, Hugo Primary Care Unavailable Julio, Hugo Referring Unavailable Hazel Dupree Attending Unavailable Julio, Hugo Referring Unavailable Julio, Hugo Primary Care Unavailable Julio, Hugo Primary Care Unavailable JoseF Pugain Consulting Unavailable Julio, Hugo Referring Unavailable Julio, Hugo Attending Unavailable Julio, Hugo Primary Care Unavailable Timothy Jenny Referring Unavailable Jenny Aguirre Attending Unavailable Vivien David Referring Unavailable Jose F Pugain Attending Unavailable Julio, Hugo Primary Care Unavailable Julio, Hugo Primary Care Unavailable Heber Tiara Referring Unavailable Tiara Buck Attending Unavailable SHANTEL CHEUNG Referring Unavailable SHANTEL CHEUNG Attending Unavailable Julio, Hugo Primary Care Unavailable Julio, Hugo Primary Care Unavailable Bartolome Jimenez Attending Unavailable Gatito INTERACTIVE MEDIA MARKETING SPECIALIST, Yecenia Attending Unavailable Aviles MARIA ISABEL, Penelope Referring Unavailable Julio, Hugo Primary Care Unavailable Julio, Hugo Primary Care Unavailable Chris Campoverde Attending Unavailable Julio, Hugo Referring Unavailable Julio, Hugo Referring Unavailable TimothyJenny Attending Unavailable Julio, Hugo Primary Care Unavailable TimothyJenny Attending Unavailable Julio, Hugo Primary Care Unavailable Julio, Hugo Referring Unavailable TimothyJenny Attending Unavailable Timothy, Jenny Referring Unavailable Julio, Hugo Primary Care Unavailable TimothyJenny Attending Unavailable Timothy, Jenny Referring Unavailable Julio, Hugo Primary Care Unavailable Aviles PSYCHIATRIC NP, Penelope Referring Unavailable Gatito INTERACTIVE MEDIA MARKETING SPECIALIST, Yecenia Attending Unavailable Julio, Hugo Primary Care Unavailable Julio, Hugo Referring Unavailable Julio, Hugo Primary Care Unavailable Hazel Dupree Attending Unavailable Julio, Hugo Primary Care Unavailable Mary Garnica Attending Unavail able Julio, Hugo Referring Unavailable Hazel Dupree Attending Unavailable Julio, Hugo Primary Care Unavailable Julio, Hugo Referring Unavailable Hazel Dupree Attending Unavailable Julio, Hugo Primary Care Unavailable Julio, Hugo Referring Unavailable Friend, Herman Attending Unavailable Julio, Hugo Primary Care Unavailable Hazel Dupree Attending Unavailable Julio, Hugo Primary Care Unavailable Friend, Herman Attending Unavailable Friend, Herman Consulting Unavailable Julio, Hugo Primary Care Unavailable Julio, Hugo Referring Unavailable Julio, Hugo Primary Care Unavailable Julio, Hugo Referring Unavailable Hazel Dupree Attending Unavailable Julio, Hugo Primary Care Unavailable Julio, Hugo Referring Unavailable Jenny Aguirre Attending Unavailable Julio, Hugo Primary Care Unavailable Julio, Hugo Referring Unavailable Julio, Hugo Attending Unavailable Jenny Aguirre Attending Unavailable Julio, Hugo Primary Care Unavailable Julio, Hugo Referring Unavailable Allergies Allergy Classification Reported Allergen(s) Allergy Type Date of Onset Reaction(s) Facility (18 sources) NSAIDs; Translations: [NSAIDs] Allergy to drug (finding) 07-09-19 22 [facility] (11 sources) rofecoxib; Translations: [ROFECOXIB] Drug Allergy 03-05-20 05 Swelling [facility] Work Phone: (20 sources) NSAIDS (Non-Steroidal Anti-Inflamma; Translations: [NSAIDS (Non-Steroidal Anti-Inflamma] Propensity to adverse reactions 09-04-19 22 Other [facility] (15 sources) systemic steroids Allergy to substance 09-04-19 mental psychosis [facility] Work Phone: (6 sources) Corticosteroids Propensity to adverse reactions intolerance [facility]. Other (13 sources) Non-steroidal anti-inflammatory agent; Translations: [NSAIDS (NON-STEROIDAL ANTI-INFLAMMATORY DRUG)] Propensity to adverse reactions to drug 02-12-20 19 Other: See Comments, Unknown [facility] (7 sources) predniSONE; Translations: [PREDNISONE] Drug Allergy 04-29-20 Mental Status Change [facility] (12 sources) traMADol; Translations: [TRAMADOL] Drug Allergy 05-02-20 Mental Status Change [facility] (9 sources) Corticosteroids and derivatives Drug Intolerance 04-29-20 22 Hallucinations , Other, Unknown [facility] (6 sources) Mirabegron Allergy to substance 11-08-19 [facility] (6 sources) Non-steroidal anti-inflammatory agent Drug Allergy 05-30-20 19 Other [facility] (6 sources) rofecoxib Drug Allergy 03-05-20 05 Swelling [facility] (5 sources) Glucocorticoid Receptor Agonists; Translations: [CORTICOSTEROIDS (GLUCOCORTICOIDS)] Propensity to adverse reactions 11-15-19 Other [facility] (3 sources) Glucocorticoid preparation Drug Intolerance 02-11-20 23 Other [facility] (1 source) Corticosteroids Drug allergy (disorder) 03-18-20 [facility] Repository Medications Current Medications Medication Drug Class(es) [...] VAGEN PO) Take by mouth 0 Active NSPIBNIDDU-EAXMNVDLARY-SBML NA (2 sources) AZELASTINE-FLUTI CASONE-NACL NA by Nasal route 0 Active Bariatric Multivitamins/Iron - (2 sources) Bariatric Multiv itamins/Iron - as directed Orally Active Ahlxwum-Hjwrrwcoif-Guoosis D (CITRACAL +D3 PO) (1 source) take 2 tablets by mouth three times daily Rtpojpn-Sytqpzfrso-Mttlczc D (CITRACAL +D3 PO) Take by mouth [...] 2022 4:01pm take 2 tablets by mo uth once daily dapagliflozin propanediol (Farxiga) 5 mg [...] Start: 09-25-2022 take 1 tablet by manuel th once daily furosemide (Lasix) 20 MG tablet [...] Start: 12-26-2019 take 2 tablets by mo uth once daily furosemide (Lasix) 20 mg tablet [...] Active Start: 01-13-2019 take 1 tablet by [facility] every week furosemide (LASIX) 40 mg tablet Take 1 tablet by mouth once each week. 4 tablet 0 01/13/2019 Active End: 05-15-2023 furosemide (Lasix) 80 mg tab let Lasix TABS Refills: 0 Active 0 05/15/2023 Discontinued (Therapy completed) Lasix TABS Quant ity: 0 Refills: 0 Ordered: 01-Jan-2022 DO Active Comment on above: Take 1 tablet by [facility] once each week. hydrocortisone acetate 0.025 mg/mg [...] spray (20 sources) Anticholinergic Start: 08-09-2021 Ipratropium [place] Active 2 SPRAY INTRANASAL NEEDED August 09, 2021 12:00am administer into each nostril Start: 06-28-2019 End: 05-15-2023 ipratropium (Atrovent) 21 mc g (0.03 %) nasal spray Ipratropium [place] 0.03 % Nasal Solution Quantity: 30 Refills: [...] DAILY PO) Take by mouth 0 Active Mbakjlnq-Vsl-Nc-Lycopen-Lut ein (19 sources) Start: 03-04-2013 take 1 tablet by mouth once daily Wicbgoip-Qcl-Ku-Lycopen-Lut ein Active 1 TABLET PO DAILY March 04, 2013 10:28am Start: 03-04-2013 take 1 tablet by manuel th once daily Fyzjpyfk-Wqu-Iw-Lycopen-Lutein Active 1 TABLET PO DAILY March 03, 2013 11:00pm Start: 03-04-2013 take 1 tablet by manuel th once daily Xlsphjec-Fxs-Oa-Lycopen-Lutein Active 1 TABLET PO DAILY March 04, [...] 01/04/21 at 1648, Until 01/08/21 at 1308, Mild Pain, Oral temp > [...] by mouth q 12 H R. amylase 210818 unt / lipase 97754 unt / protease [id number] unt delayed release oral capsule (17 sources) Start: 11-08-2019 End: 06-07-2022 take 2 capsules by mouth three times daily at mealtime, then take 2 capsules by mouth three times daily at mealtime zbommp-qpyfzgpy-orcvwl e (CREON 36) 36,000-114,000- 180,000 unit capsule Take 2 capsules by mouth three times daily with meals. Take 2 caps 3 times daily with meals;1 cap with each snack. 540 capsule 2 11/08/2019 06/07/2022 Discontinued (Course of therapy completed) Start: 02-11-2019 take 2 capsules by m outh four times daily Creon [id number] UNIT Oral Capsule Delayed Release Particles TAKE 2 CAPSULE 4 times daily Quantity: 720 Refills: 3 Ordered: 19-Oct-2020 Marilia Stubbs DO Start : 11-Feb-2019 [place] [address] units [address] Particles capsule Take by [...] 81 mg, Oral, Daily, First dose on [facility] 01/22/24 at 1400, Do not crush, chew, [...] by mouth once d aily. bacillus subtilis [id number] unt / inulin 1000 mg chewable tablet [...] Zonatuss takes 2-3 N ot-Taking bifidobacterium animalis [id number] unt / lactobacillus acidophilus [id number] unt oral capsule (20 sources) End: 05-15-2023 [...] on above: Take 2 tablets by mo ut three times daily. calcium citrate 1200 mg [...] Bayron, beta-Adrenergic Bayron Start: 04-30-20 End: 01-24-20 take 25 mg by mouth twice daily [...] injection (3 sources) Cephalosporin Antibacterial Start: End: 08-09-2 021 take 1 g intravenously every twenty-four hours [...] (10,000 unit) tablet Vitamin D3 250 MCG (85358 UT) Oral Tablet Refills: 0 Active 0 [...] ESTRACE CR EA As needed as directed [id number] Ami Rios 01-25-2019 [facility] ([id number]) famotidine 20 mg oral tablet (11 sources) [...] Comment on above: Take 1 tablet by mnauel once daily. fexofenadine hydrochloride 60 mg oral tablet (11 sources) Histamine-1 Receptor Antagonist End: take 1 tablet by mouth twice daily [...] at 1345, Patient's own med. MED ID: SKILLED NURSING FLOWFLEX COVID-19 AG HOME TEST kit (4 [...] sources) Anti-epileptic Agent Start: 11-20-19 End: 11-15-19 take 300 mg by mouth three times daily 300 mg, Oral, 3 times daily, First dose on [place] 01/22/24 at 1500 glucagon (rdna) 1 mg injection (2 sources) Antihypoglycemic Agent Start: 01-22-20 End: 01-24-20 150 ml glucose 50 mg/ml injection (4 [...] 15-Mar-2020 DO Active take 2 tablets by [facility] once daily losartan 50 MG tablet Take [...] Comment on above: Take 2 tablets by [facility] daily at bedtime. magnesium gluconate 500 mg [...] Discontinued (Therapy completed) take 1 capsule by [facility] once daily Magnesium Oxide 500 MG 1 capsule Orally Once a day Not-Taking Comment on above: Take 1 tablet by manuel twice daily. Take 400 mg by mouth [...] 2 Active take 2 tablets by mo uth once daily melatonin 3 mg tablet Take 6 mg by mouth once daily. 0 Active Comment on above: Take 6 mg by mouth o nce daily. metroNIDAZOLE 250 mg oral tablet (20 sources) Nitroimidazole Antimicrobial Start: 09-13-19 End: 05-11-20 take 1 tablet by mouth twice daily metroNIDAZOLE 250 MG Oral Tablet Take 1 tablet twice daily Quantity: 60 Refills: 5 Ordered: 19-Oct-2020 Marilai Stubbs DO Start : 12-Sep-2020 End : [...] with copper Active multivitamin with minerals iron-free (qhzcbwdr-hlyo-ofhbgiqh-folic acid) (1 source) End: 05-15-2023 multivitamin with minerals iron-free (zeuqwvht-barz-binhrqqa-folic acid) Take by mouth. As directed 0 [...] dose on Taya 01/04/21 at 1700, Until Discontinued Do not crush [...] Comment on above: Take 1 tablet by [facility] once daily. Plenvu 140 GM Oral Solution [...] Start : 29-Mar-2022 Active polyethylene glycol 3350 15320 mg powder for oral solution (2 sources) Osmotic Laxative Start: 01-22-2024 End: 01-24-2024 take 17 g by mouth every twenty-four hours as needed for constipation polyethylene glycol 3350 895213 mg / potassium chloride 2970 mg / sodium bicarbonate 6740 mg / sodium chloride 5860 mg / sodium sulfate 67819 mg powder for oral solution (4 sources) [...] Discontinued (Therapy completed) take 1 capsule by [facility] every twenty-four hours Polypodium Leucotomos Extract 240 mg cap Take 1 capsule by mouth q 24 HR. 0 Active Comment on above: Take 1 capsule by [facility] q 24 HR. potassium chloride [...] 0 03/18/2012 Active take 2 tablets by [facility] once daily potassium chloride (KLOR-CON) 10 MEQ extended release tablet Take 20 mEq by mouth daily 0 Active Comment on above: Take 1 tablet by [facility] twice daily. Take 20 mEq by [...] sources) Rifamycin Antibacterial Start: 06-20-19 End: 05-06-20 take 1 tablet by mouth three times [...] oral tablet (15 sources) Start: 4 End: 1 g, Oral, 2 times daily, First [...] needed Active take 1 tablet by manuel th once daily traMADol (Ultram) 50 mg tablet [...] (Therapy completed) take 1 tablet by manuel th once daily cyanocobalamin (VITAMIN B-12) 1,000 mcg tab Take 1,000 mcg by mouth once daily. 0 Active Vitamin B12 1000 MCG Oral Tablet Extended Release Quantity: 0 Refills: 0 Ordered: 15-Mar-2020 DO Active Comment on above: Take 1,000 mcg by mo [facility] once daily. Vitamin B12 1000 MCG (12 [...] 7 11-07-2022 Chronic Chronic ulcer of skin (2 sources) Pressure ulcer of unspecified part of [...] Translations: [Unspecified essential hypertension] Onset: 1 Chronic Fluid and electrolyte disorders (14 sources) Hyponatremia; Translations: [Hypo-osmolality and hyponatremia] Onset: 2 07-09-2021 Episodic Genitourinary symptoms and ill-defined conditions (20 sources) Urinary incontinence; Translations: [Urinary incontinence, unspecified] Onset: 0 01-21-2020 Chronic Genitourinary symptoms and ill-defined conditions (17 sources) Dysuria; Translations: [Dysuria] Onset: 0 07-11-2021 [...] initial encounter] Onset: 4 02-03-2024 Episodic Osteoarthritis (15 sources) Osteoarthritis; Translations: [Unspecified osteoarthritis, unspecified site] [...] incontinence of feces] Onset: 5 Episodic Other gastrointestinal disorders (2 sources) Fecal urgency; Translations: [Fecal urgency] Onset: 5 Episodic Other hereditary and degenerative [...] Onset: 4 02-03-2024 Episodic Urinary tract infections (20 sources) Acute cystitis; Translations: [Acute cystitis without [...] [Anemia, unspecified] Onset: 2 Resolved: 2 Episodic Hemorrhoids (20 sources) Thrombosed external hemorrhoids; [...] of feces] Onset: 3 02-10-2023 Episodic Other injuries and conditions due to [...] left knee] Onset: 3 11-07-2022 Episodic Other screening for suspected conditions (not [...] Test Name Value Interpretation Reference Range Facility MR/Osbaldo 03-18-2025 MR/MURALI [facility] [address], [address] [place] [id number] OFFICE VISIT Date of Service: 03/18/25 MR#: [id number] Acct: [id number] Name: MADELYN LOVE Rep #: [id number] : 1945 Provider: Dr. Hazel Richardson i, MD Age/Sex: 79/F Location: [facility] [place] Status: Signed Intake Vital Signs 02/21/25 14:03 03/18/25 14:00 Height 4 ft 8 in 4 ft 8 in Weight: 138 lb 138 lb BMI 30.9 30.9 BP 128/60 H 149/80 H Pulse 88 81 Intake Visit Reasons: med f/u Chief Complaint: myrbetriq 50mg follow up Content Analyst Required: No Accompanied by: Is patient in pain?: No Allergies Corticosteroids (Glucocorticoids) Adverse Reaction (Severe, Verified 03/18/25 13:57) Other NSAIDS (Non-Steroidal Anti-Inflamma Adverse Reaction (Severe, Verified 03/18/25 13:57) Other Medications ???Medication ???Instructions ???Recorded ???Confirmed ???Type lactobacillus combination no.8 3 3,000 mmu cells PO DAILY 11/24/18 03/18/25 History billion cell capsule (Adult Probiotic) pantoprazole 40 mg tablet,delayed 40 mg PO DAILY 02/03/20 03/18/25 History release gabapentin 300 mg capsule 300 mg PO TID 04/27/24 03/18/25 Hi story melatonin 3 mg capsule 3 mg PO BID 05/19/24 03/18/25 Hist ory oxycodone 7.5 mg tablet,oral ONLY 7.5 mg PO BID PRN pain 05/19/24 1 History (not for feeding tubes) carvedilol 25 mg tablet 6.25 mg PO BID 07/01/24 03/18/25 H istory furosemide 20 mg tablet (Lasix) 40 mg PO QAM 07/01/24 03/18/25 His tory apixaban 5 mg tablet (Eliquis) 5 mg PO BID 10/12/24 03/18/25 Hist ory losartan 100 mg tablet 100 mg PO QHS 10/12/24 03/18/25 Hi story acetaminophen 500 mg capsule 500 mg PO Q4H PRN 10/21/24 5 History calcium 250 mg-magnesium 40 mg-D3 1 tab PO BID 10/21/24 03/18/25 Hi story 125 unit-zinc 3.45oj-jat-welv tablet (Calcium Citrate Plus) carbamazepine 100 mg 100 mg PO BID 10/21/24 03/18/25 Hi story capsule,extended release abpbdc76fa (Carbatrol) cholestyramine 4 gram oral powder 4 g PO QDAY 10/21/24 03/18/25 His tory for suspension in a packet finerenone 10 mg tablet (Kerendia) 10 mg PO QDAY 10/21/24 03/18/25 History ngeelnwz-onflxafd-otbr 45 mg-folic 1 cap PO .QD 10/21/24 03/18/25 H istory acid 800 mcg-vit K 120 mcg capsule (Bariatric Multivitamins) cholecalciferol (vitamin D3) 1,250 1,250 mcg PO .QD 01/06/25 History mcg (50,000 unit) capsule cmtrvq-oyqibglv-fwiumqo cap PO 02/21/25 03/18/25 History 3,000-10,000-14,000 unit capsule,delayed rel (Zenpep) cefdinir 300 mg capsule 300 mg PO BID #10 caps 03/14/25 Rx fluconazole 150 mg tablet 150 mg PO QDAY #3 tabs 03/14/25 Rx mirabegron 25 mg tablet,extended 50 mg PO QDAY 03/18/25 03/18/25 Hi story release 24 hr (Myrbetriq) mirabegron 50 mg tablet,extended See Rx Instructions PO QDAY #180 1 03/18/25 Rx release 24 hr (Myrbetriq) tabs Have you fallen in the past year?: No Nurse's Note: still getting spasms and urgency with voids. stimulator was turned off x2.5 weeks and was turned on again yesterday still has no warmning she will BM Bladder scan PVR: 5cc patient was unable to leave a urine sample at this time, she went before she left the house. [facility] Medical History Recurrent UTI (urinary tract infection) Vaginal atrophy Vaginal vault prolapse after hysterectomy [...] cord stimulator History of left heart catheterization (more content not included)... Normal [facility] Office Visit Reporton 2024 Office Visit Report [facility] [address] [place] [address] OFFICE VISIT Date of Service: 03/10/25 MR#: [id number] Acct: [id number] Patient: MADELYN LOVE Rep #: [id number] : 1945 Provider: Dr. Hazel Richardson i, MD Age/Sex: 79/F Location: [facility] Status: Signed Intake Vital Signs 02/21/25 14:03 Height 4 ft 8 in Weight: 138 lb BMI 30.9 BP 128/60 H Pulse 88 Intake Visit Reasons: repeat culture Chief Complaint: increase in diarrhea since turnnign on the axonics. 2 week follow up. Allergies Corticosteroids (Glucocorticoids) Adverse Reaction (Severe, Verified 02/21/25 14:01) Other NSAIDS (Non-Steroidal Anti-Inflamma Adverse Reaction (Severe, Verified 02/21/25 14:01) Other Have you fallen in the past year?: No Office Procedures Straight Cath Procedure Completed: Yes Straight Cath: The urethra was cleansed with betadine. A 14Fr catheter was inserted into the urethra using sterile technique. The bladder was drained of 43cc of urine. The patient tolerated the procedure well. Results POC UA Auto w/o Microscopy Office Urine Color YELLOW Last Edit by Lluvia Flroes on 03/10/25 11:35 Office Urine Clarity Last Edit by Lluvia Flores on 03/10/25 11:35 Office Urine Glucose Negative Last Edit by Lluvia Flores on 03/10/25 11:35 Office Urine Ketones Negative Last Edit by Lluvia Flores on 03/10/25 11:35 Office Urine Bilirubin Negative Last Edit by Lluvia Flores on 03/10/25 11:35 Office Urine Urobilinogen 0.2 mg/dL Last Edit by Lluvia Flores on 03/10/25 11:35 Off Ur Spec [place] 1.020 Last Edit by Lluvia Flores on 03/10/25 11:35 Office Urine pH 6 Last Edit by Lluvia Flores on 03/10/25 11:35 Office Urine Protein Positive Last Edit by Lluvia Flores on 03/10/25 11:35 15 Lluvia Flores 03/10/25 11:35 Office Urine Blood Negative Last Edit by Lluvia Flores on 03/10/25 11:35 Office Urine Blood Hemolyzed Last Edit by Lluvia Flores on 03/10/25 11:35 Office Urine Nitrate Negative Last Edit by Lluvia Flores on 03/10/25 11:35 Off Ur Leukocytes Positive Last Edit by Lluvia Flores on 03/10/25 11:35 71 Lluvia Flores 03/10/25 11:35 Nursing Note Patient here for repeat urine culture, per Dr. Dupree. Assessment and Plan Assessment and Plan Orders: Orders POC UA Auto w/o Microscopy Today N39.0 - Urinary tract infection, site not specified Straight Cath Today N39.0 - Urinary tract infection, site not specified Clinical Quality Measures Falls Risk Screening/Assistive Devices Have you fallen in the past year?: No 03/10/25 1147 Date Hazel Cordova Signature: Date (if applicable) CC: Normal [facility] Office Visit Reporton 2024 Office Visit Report [facility] [address] [place] [address] OFFICE VISIT Date of Service: 03/03/25 MR#: [id number] Acct: [id number] Patient: MADELYN LOVE Rep #: [id number] : 1945 Provider: Dr. Hazel Richardson i, MD Age/Sex: 79/F Location: [facility] Status: Signed Intake Vital Signs 02/21/25 14:03 Height 4 ft 8 in Weight: 138 lb BMI 30.9 BP 128/60 H Pulse 88 Intake Visit Reasons: POSSIBLE UTI Chief Complaint: increase in diarrhea since turnnign on the axonics. 2 week follow up. Allergies Corticosteroids (Glucocorticoids) Adverse Reaction (Severe, Verified 02/21/25 14:01) Other NSAIDS (Non-Steroidal Anti-Inflamma Adverse Reaction (Severe, Verified 02/21/25 14:01) Other Have you fallen in the past year?: No Nursing Note Patient called and wanted to know what to do. She has been having a horrible time with her Axonics. We discussed her symptoms (urgency, frequency, a lot of diarrhea and discomfort) and thought she may have a urinary tract infection. She came in for urine specimen. UA and C S was completed. Assessment and Plan Assessment and Plan Orders: Orders POC UA Auto w/o Microscopy 03/03/25 N39.0 - Urinary tract infection, site not specified Clinical Quality Measures Falls Risk Screening/Assistive Devices Have you fallen in the past year?: No 03/07/25 0865 Date Hazel Dupree MD Cosigner Signature: Date (if applicable) CC: Normal [facility] MR/Osbaldo 02-21-2025 MR/MURALI [facility] [address], [address] [place] [address] OFFICE VISIT Date of Service: 02/21/25 MR#: [id number] Acct: [id number] Name: MADELYN LOVE Rep #: [id number] : 1945 Provider: Dr. Hazel Richardson i, MD Age/Sex: 79/F Location: [facility] Status: Signed Intake Vital Signs 01/26/25 14:56 02/21/25 14:03 Height 4 ft 8 in 4 ft 8 in Weight: 138 lb BMI 30.9 BP 128/60 H Pulse 88 Intake Visit Reasons: 2WK F/U Chief Complaint: increase in diarrhea since turnnign on the axonics. 2 week follow up. Content Analyst Required: No Accompanied by: Is patient in pain?: Yes (bowels are aching and spasms ) Pain scale (1-10): 9 Allergies Corticosteroids (Glucocorticoids) Adverse Reaction (Severe, Verified 02/21/25 14:01) Other NSAIDS (Non-Steroidal Anti-Inflamma Adverse Reaction (Severe, Verified 02/21/25 14:01) Other Medications ???Medication ???Instructions ???Recorded ???Confirmed ???Type lactobacillus combination no.8 3 3,000 mmu cells PO DAILY 11/24/18 02/21/25 History billion cell capsule (Adult Probiotic) pantoprazole 40 mg tablet,delayed 40 mg PO DAILY 02/03/20 02/21/25 History release gabapentin 300 mg capsule 300 mg PO TID 04/27/24 02/21/25 Hi story melatonin 3 mg capsule 3 mg PO BID 05/19/24 02/21/25 Hist ory oxycodone 7.5 mg tablet,oral ONLY 7.5 mg PO BID PRN pain 12/18/24 0 02/21/25 History (not for feeding tubes) mirabegron 25 mg tablet,extended 25 mg PO QDAY 06/08/24 02/21/25 Hi story release 24 hr (Myrbetriq) carvedilol 25 mg tablet 6.25 mg PO BID 07/01/24 02/21/25 H istory furosemide 20 mg tablet (Lasix) 40 mg PO QAM 07/01/24 02/21/25 His tory apixaban 5 mg tablet (Eliquis) 5 mg PO BID 10/12/24 02/21/25 Hist ory losartan 100 mg tablet 100 mg PO QHS 10/12/24 02/21/25 Hi story acetaminophen 500 mg capsule 500 mg PO Q4H PRN 10/21/24 5 History calcium 250 mg-magnesium 40 mg-D3 1 tab PO BID 10/21/24 02/21/25 Hi story 125 unit-zinc 3.75vt-dor-evwu tablet (Calcium Citrate Plus) carbamazepine 100 mg 100 mg PO BID 10/21/24 02/21/25 Hi story capsule,extended release ggtqci63yr (Carbatrol) cholestyramine 4 gram oral powder 4 g PO QDAY 10/21/24 02/21/25 His tory for suspension in a packet finerenone 10 mg tablet (Kerendia) 10 mg PO QDAY 10/21/24 02/21/25 History gkovrrmf-xuorjwxg-dqxf 45 mg-folic 1 cap PO .QD 10/21/24 02/21/25 H istory acid 800 mcg-vit K 120 mcg capsule (Bariatric Multivitamins) methenamine hippurate 1 gram tablet 1 g PO BID 10/22/24 02/21/25 Hi story cholecalciferol (vitamin D3) 1,250 1,250 mcg PO .QD 01/06/25 History mcg (50,000 unit) capsule fasoyn-kxdcjegi-knrfqgx cap PO 02/21/25 02/21/25 History 3,000-10,000-14,000 unit capsule,delayed rel (Zenpep) Have you fallen in the past year?: No Nurse's Note: bowels are terrible since turnung on the axonics with spasms and leaking and occasional bloody stools. is the axonics causing bowel spasms? Bladder scan PVR 1 cc. [facility] Medical History Vaginal atrophy Vaginal vault prolapse after hysterectomy [...] of hysterectomy Hx of colonoscopy History of (more content not included)... Normal [facility] Gastroenterology Visit Repor ton 02-17-2025 Gastroenterology Visit Report [facility] Gastroenterology [address] [place] [address] OFFICE VISIT Date of Service: 02/17/25 MR#: [id number] Acct: [id number] Name: MADELYN LOVE Rep #: [id number] : 1945 Provider: LOUIS slaughter Age/Sex: 79/F Location: [facility] Status: Signed Intake Vital Signs 01/06/25 15:11 01/26/25 14:56 Height 4 ft 8 in 4 ft 8 in Intake Visit Reasons: 6 wk FU-Diarrhea/Fecal Urgency Chief Complaint: increase in diarrhea and incontinence Allergies Corticosteroids (Glucocorticoids) Adverse Reaction (Severe, Verified 01/26/25 14:54) Other NSAIDS (Non-Steroidal Anti-Inflamma Adverse Reaction (Severe, Verified 01/26/25 14:54) Other Medications ???Medication ???Instructions ???Recorded ???Confirmed ???Type lactobacillus combination no.8 3 3,000 mmu cells PO DAILY 11/24/18 02/17/25 History billion cell capsule (Adult Probiotic) pantoprazole 40 mg tablet,delayed 40 mg PO DAILY 02/03/20 02/17/25 History release gabapentin 300 mg capsule 300 mg PO TID 04/27/24 02/17/25 Hi story melatonin 3 mg capsule 3 mg PO BID 05/19/24 02/17/25 Hist ory oxycodone 7.5 mg tablet,oral ONLY 7.5 mg PO BID PRN pain 05/19/24 0 02/17/25 History (not for feeding tubes) mirabegron 25 mg tablet,extended 25 mg PO QDAY 06/08/24 02/17/25 Hi story release 24 hr (Myrbetriq) carvedilol 25 mg tablet 6.25 mg PO BID 07/01/24 02/17/25 H istory furosemide 20 mg tablet (Lasix) 40 mg PO QAM 07/01/24 02/17/25 His tory apixaban 5 mg tablet (Eliquis) 5 mg PO BID 10/12/24 02/17/25 Hist ory losartan 100 mg tablet 100 mg PO QHS 10/12/24 02/17/25 Hi story acetaminophen 500 mg capsule 500 mg PO Q4H PRN 10/21/24 5 History calcium 250 mg-magnesium 40 mg-D3 1 tab PO BID 10/21/24 02/17/25 Hi story 125 unit-zinc 3.74hk-pmt-kkcd tablet (Calcium Citrate Plus) carbamazepine 100 mg 100 mg PO BID 10/21/24 02/17/25 Hi story capsule,extended release wjcymd46tu (Carbatrol) cholestyramine 4 gram oral powder 4 g PO QDAY 10/21/24 02/17/25 His tory for suspension in a packet finerenone 10 mg tablet (Kerendia) 10 mg PO QDAY 10/21/24 02/17/25 History znoxusqz-iqqxdlyp-wbxy 45 mg-folic 1 cap PO .QD 10/21/24 02/17/25 H istory acid 800 mcg-vit K 120 mcg capsule (Bariatric Multivitamins) methenamine hippurate 1 gram tablet 1 g PO BID 10/22/24 02/17/25 Hi story cholecalciferol (vitamin D3) 1,250 1,250 mcg PO .QD 01/06/25 History mcg (50,000 unit) capsule Have you fallen in the past year?: No PFSH Medical History Vaginal atrophy Vaginal vault prolapse after hysterectomy [...] Father Hypertension Arthritis Liver disease Sister Arthritis Social Hi (more content not included)... Normal [facility] CREATININE FINGERSTICKon CREATININE WB < 1.0 Normal 0.55-1.02 [facility] Comment on above: Performed By: #### L 501.1800, L500.2500, L506.1000, L509.1000 #### [facility] [address] [place], [address] EGFR WB > 60.0000 Normal >60 [facility] Comment on above: Performed By: #### L 501.1800, L500.2500, L506.1000, L509.1000 #### [facility] [address] [place], [address] CTA Chest W/WO Contraston CTA Chest W/WO Contrast [facility] Imaging Services [address] [place] [address] CTA Chest W/WO Contrast MR#: [id number] Acct: [id number] Name: MADELYN LOVE Rep #: [id number] : 1945 F 79 From: David gary MD PCP: Dr. Hugo Julio MD Status: REG CLI Study: CTA Chest W/WO Contrast Date of Exam: 02/15/25 Exam# [id number] Ordering Dr: Mary Blank PROCEDURE: CTA CHEST W/WO CONTRAST 02/15/2025 REASON FOR EXAM: RECENT PE TECHNIQUE: Procedure Code: [id number] Modality: CT Procedure: CTA CHEST W/WO CONTRAST Multiplanar Sagittal and Coronal images were obtained. 3D post processing was performed CONTRAST: Isovue 370 VOLUME: 100 mL One or more dose reduction techniques were used (e.g., Automated exposure control, adjustment of the mA and/or kV according to patient size, use of iterative reconstruction technique). RADIATION DOSE SUMMARY: DLP: 227.2 mGycm COMPARISON: Radiographs of the chest dated 04/24/2024 FINDINGS: Thoracic Aorta: Atherosclerosis. Mild ectasia. No aneurysmal dilatation or dissection. The descending aorta is of normal caliber. Heart: Cardiomegaly. Calcifications in the mitral annulus and aortic leaflets. Coronary arterial calcifications. No pericardial effusion. Pulmonary Vessels: No filling defect to suggest a pulmonary embolus. Normal caliber of the pulmonary arterial tree. Hardware: None Lymph nodes: No mediastinal or axillary lymphadenopathy. Calcified right hilar lymph nodes identified. Lungs and Airways: No acute cardiopulmonary process. Patent airway. Small ground-glass nodule in the right upper lobe measuring 8 mm. No dominant nodule over 6 mm. Mild emphysematous changes. Pleura: No pneumothorax. No effusion. Upper Abdomen: Postsurgical changes of the GE junction with small sliding hiatal hernia. Unenhanced views of the liver unremarkable. Bones: Multilevel degenerative disc disease and spondylosis CT/CTA Chest W/WO Contrast IMPRESSION: No pulmonary embolus. Cardiomegaly and coronary arterial calcifications. 8 mm ground-glass nodule in the right upper lobe. Follow-up evaluation with repeat CT of the chest in 6 months is recommended to assess stability. Reading Location: [id number] CC: Dr. Hugo Julio MD; WALLY Ross Agronomy Internship: Signed [facility] 02-14-2025 Order Number [id number] [facility] Comment on above: Order Comment: P-Tau 217 Performed By: #### 9 [id number] #### [address] [address] Test Name Phosphorylates luj575 Normal [facility] Comment on above: Order Comment: P-Tau 217 Performed By: #### 9 [id number] #### [place] [id number] [facility] 02-11-2025 [facility] Result COMMENT [facility] Comment on above: Order Comment: P-Tau 217 Result Comment: Test Ordered: [id number] p-wdv204 0.30 [H ] pg/mL L9 Reference Range: 0.00-0.18 This test was developed and its performance characteristics determined by [employer]. It has not been cleared or approved by the Food and Drug Administration. Clinical cutoff value was established using samples from a patient cohort characterized with amyloid PET data. A p-gpn282 value of >0.18 is a reported surrogate marker for beta amyloid pathology, and can be used to facilitate biological identification of Alzheimer's disease (1). p-rvd583 has also been used in clinical trials to monitor patients on anti-amyloid therapy (2,3). Test performed by [employer] chemiluminescent enzyme immunoassay (CLEIA). Values obtained with different methods cannot be used interchangeably. The validated limit of quantification is 0.06 pg/mL. Assay detection limit is 0.03 pg/mL. Footnotes Comment L9 1. Singh Mi, et al. Diagnostic Accuracy of a Plasma Phosphorylated Tau 217 Immunoassay for Alzheimer Disease Pathology. RACHAEL neurology (2023). 2. Singh Mi, et al. Differential roles of A42/40, p-dtz412 and p-mkl667 for Alzheimer's trial selection and disease monitoring. Nature medicine 28.12 (2021): 7372-3857. 3. Anyi MUÑOZ, Soraya M, Andrés VIRAMONTES, et al. Association of Donanemab Treatment With Exploratory Plasma Biomarkers in Early Symptomatic Alzheimer Disease: A Secondary Analysis of the TRAILBLAZER-ALZ Randomized Clinical Trial. RACHAEL Neurol. 2021;79(12):9881-5545. Performed At: [facility] [id number] Sophia Sigala PhD Ph:[phone] Performed At: L9 [employer] [address] [place] [address], [place] [id number] Levy Jack MD Ph:[phone] Performed By: #### 9 [id number] #### [address] [address] .GFRon 02-08-2025 Estimated Glomerular Filtration Rate 58 ml/min/1.73sqm Normal [facility] Comment on above: Result Comment: Stages of [...] #### T SH, GFR, FT4, BMP #### [address] [address] #### B12 #### [address] [address] B12on 02-08-2025 Cobalamin (Vitamin B12) [Mass/Vol] 1773 pg/mL High 211-911 [facility] Comment on above: Performed By: #### T SH, GFR, FT4, BMP #### [place] [address] #### B12 #### [address] [address] BMPon 02-08-2025 BUN/Creatinine Ratio 45 ratio High 7-27 [facility] Comment on above: Performed By: #### T SH, GFR, FT4, BMP #### [place] [address] #### B12 #### [address] [address] Calcium [Mass/Vol] 9.1 mg/dL Normal 8.4-10.2 [facility] Comment on above: Performed By: #### T SH, GFR, FT4, BMP #### [place] [address] #### B12 #### [address] [address] Chloride [Moles/Vol] 105 mmol/L Normal 98-107 [facility] Comment on above: Performed By: #### T SH, GFR, FT4, BMP #### [place] [address] #### B12 #### [address] [address] CO2 [Moles/Vol] 27 mmol/L Normal 23-31 [facility] Comment on above: Performed By: #### T SH, GFR, FT4, BMP #### [place] [address] #### B12 #### [address] [address] Creatinine [Mass/Vol] 1.00 mg/dL High 0.51-0.95 [facility] Comment on above: Performed By: #### T SH, GFR, FT4, BMP #### [place] [address] #### B12 #### [address] [address] Electrolyte Balance 10.0 mEq/L Normal 4.0-15.0 [facility] Comment on above: Performed By: #### T SH, GFR, FT4, BMP #### [place] [address] #### B12 #### [address] [address] Glucose [Mass/Vol] 100 mg/dL Normal 83-110 [facility] Comment on above: Performed By: #### T SH, GFR, FT4, BMP #### [place] [address] #### B12 #### [address] [address] Potassium [Moles/Vol] 4.4 mmol/L Normal 3.5-5.1 [facility] Comment on above: Performed By: #### T SH, GFR, FT4, BMP #### [place] [address] #### B12 #### [address] [address] Sodium [Moles/Vol] 142 mmol/L Normal 136-145 [facility] Comment on above: Performed By: #### T SH, GFR, FT4, BMP #### [place] [address] #### B12 #### [address] [place], [place] [address] Urea nitrogen [Mass/Vol] 45 mg/dL High 7-18 [facility] Comment on above: Performed By: #### T SH, GFR, FT4, BMP #### [place] [address] [place], [place] [address] #### B12 #### [facility] [address] [place] [address] FT4on 02-08-2025 Free T4 [Mass/Vol] 0.66 ng/dL Low 0.76-1.46 [facility] Comment on above: Performed By: #### T SH, GFR, FT4, BMP #### [place] [address] [place], [place] [address] #### B12 #### [facility] [address] [place] [address] LABORATORYOrdered By: SYSTEM SYSTEM on 02-08-2025 Calcium [...] 02-08-2025 TSH Qn 0.53 m[IU]/L Normal 0.36-3.74 [facility] Comment on above: Performed By: #### T SH, GFR, FT4, BMP #### [facility] [address] [place] [address] #### B12 #### [facility] [address] [place] [address] Office Visit Reporton 2024 [place] [address] OFFICE VISIT Date of Service: 02/02/25 MR#: [id number] Acct: [id number] Patient: MADELYN LOVE Rep #: [id number] : 1945 Provider: Dr. Hazel Richardson i, MD Age/Sex: 79/F Location: [facility] Status: Signed Intake Vital Signs 01/26/25 14:56 [...] Sridevi turned it back on and patient's axonics is now working correctly. Clinical Quality Measures Falls Risk Screening/Assistive Devices Have you fallen in the past year?: No 02/13/25 2105 Date Hazel Dupree MD Cosigner Signature: Date (if applicable) CC: Normal [facility] Abdomen Single Viewon 2024 Abdomen Single View [facility] Imaging Services [address] [place] [address] Abdomen Single View MR#: [id number] Acct: [id number] Name: MADELYN LOVE Rep #: [id number] : 1945 F 79 From: Tavares Gómez PCP: Dr. Hugo Julio MD Status: REG CLI Study: Abdomen Single View Date of Exam: 01/26/25 Exam# [id number] Ordering Dr: Hazel Dupree MD PROCEDURE: ABDOMEN [...] or mass effect is noted. Reading Location: [facility] CC: Dr. Hugo Julio MD; Dr. Hazel Dupree MD Agronomy Internship: Signed Normal [facility] MR/Osbaldo 01-26-2025 MR/BMSSEAN [facility] [address], [address] [place] [address] OFFICE VISIT Date of Service: 01/26/25 MR#: [id number] Acct: [id number] Name: MADELYN LOVE Rep #: [id number] : 1945 Provider: Dr. Hazel Richardson i, MD Age/Sex: 79/F Location: [facility] Status: Signed Intake Vital Signs 01/14/25 14:14 01/26/25 14:56 Height 4 ft 8 in 4 ft 8 in Weight: 138 lb BMI 30.9 BP 147/76 H Pulse 80 Intake Visit Reasons: to discuss UDS Results Chief Complaint: UDS results Content Analyst Required: No Accompanied by: Is patient in pain?: No Allergies Corticosteroids (Glucocorticoids) Adverse Reaction (Severe, Verified 03/18/25 13:57) Other NSAIDS (Non-Steroidal Anti-Inflamma Adverse Reaction (Severe, Verified 03/18/25 13:57) Other Medications ???Medication ???Instructions ???Recorded ???Confirmed ???Type lactobacillus combination no.8 3 3,000 mmu cells PO DAILY 11/24/18 03/18/25 History billion cell capsule (Adult Probiotic) pantoprazole 40 mg tablet,delayed 40 mg PO DAILY 02/03/20 03/18/25 History release gabapentin 300 mg capsule 300 mg PO TID 04/27/24 03/18/25 Hi story melatonin 3 mg capsule 3 mg PO BID 05/19/24 03/18/25 Hist ory oxycodone 7.5 mg tablet,oral ONLY 7.5 mg PO BID PRN pain 05/19/24 1 History (not for feeding tubes) carvedilol 25 mg tablet 6.25 mg PO BID 07/01/24 03/18/25 H istory furosemide 20 mg tablet (Lasix) 40 mg PO QAM 07/01/24 03/18/25 His tory apixaban 5 mg tablet (Eliquis) 5 mg PO BID 10/12/24 03/18/25 Hist ory losartan 100 mg tablet 100 mg PO QHS 10/12/24 03/18/25 Hi story acetaminophen 500 mg capsule 500 mg PO Q4H PRN 10/21/24 5 History calcium 250 mg-magnesium 40 mg-D3 1 tab PO BID 10/21/24 03/18/25 Hi story 125 unit-zinc 3.08dr-hki-qgnr tablet (Calcium Citrate Plus) carbamazepine 100 mg 100 mg PO BID 10/21/24 03/18/25 Hi story capsule,extended release ounhbo22dw (Carbatrol) cholestyramine 4 gram oral powder 4 g PO QDAY 10/21/24 03/18/25 His tory for suspension in a packet finerenone 10 mg tablet (Kerendia) 10 mg PO QDAY 10/21/24 03/18/25 History mfwzjukb-xffgrxvq-rygx 45 mg-folic 1 cap PO .QD 10/21/24 03/18/25 H istory acid 800 mcg-vit K 120 mcg capsule (Bariatric Multivitamins) cholecalciferol (vitamin D3) 1,250 1,250 mcg PO .QD 01/06/25 History mcg (50,000 unit) capsule eledbm-yxtmszma-fcqkwtj cap PO 02/21/25 03/18/25 History 3,000-10,000-14,000 unit capsule,delayed rel (Zenpep) cefdinir 300 mg capsule 300 mg PO BID #10 caps 03/14/25 Rx fluconazole 150 mg tablet 150 mg PO QDAY #3 tabs 03/14/25 Rx mirabegron 25 mg tablet,extended 50 mg PO QDAY 03/18/25 03/18/25 Hi story release 24 hr (Myrbetriq) mirabegron 50 mg tablet,extended See Rx Instructions PO QDAY #180 1 03/18/25 Rx release 24 hr (Myrbetriq) tabs Have you fallen in the past year?: No Nurse's Note: BM spasms and leaking and frequent BMs PFSH Medical History Recurrent UTI (urinary tract infection) Vaginal atrophy Vaginal vault prolapse after hysterectomy [...] laparoscopic cholecystectomy Hx of hysterectomy Hx of colonosc (more content not included)... Normal [facility] MR/BMS.Romy 01-14-2025 MR/BMS.BECKY [facility] [address], [address] [place] [address] OFFICE VISIT Date of Service: 01/14/25 MR#: [id number] Acct: [id number] Name: MADELYN LOVE Rep #: [id number] : 1945 Provider: Dr. Hazel Richardson i, MD Age/Sex: 79/F Location: [facility] Status: Signed Intake Vital Signs 10/22/24 06:59 01/06/25 15:11 01/14/25 14:14 Height 4 ft 8 in 4 ft 8 in 4 ft 8 in Weight: 138 lb BMI 30.9 BP 134/82 H Pulse 70 Temp 98 F Intake Visit Reasons: UDS 2 Chief Complaint: UDS 2 Content Analyst Required: No Is patient in pain?: No [...] BID 10/21/24 01/26/25 Hi story 125 unit-zinc 3.81nb-auf-tfhm tablet (Calcium Citrate Plus) carbamazepine 100 mg 100 mg PO BID 10/21/24 01/26/25 Hi story capsule,extended release fntdbf17zf (Carbatrol) cholestyramine 4 gram oral powder 4 g PO QDAY 10/21/24 01/26/25 His tory for suspension in a packet finerenone 10 mg tablet (Kerendia) 10 mg PO QDAY 10/21/24 01/26/25 History kqyucpic-gocswvqc-edzh 45 mg-folic 1 cap PO .QD 10/21/24 01/26/25 H istory acid 800 mcg-vit K 120 mcg capsule (Bariatric Multivitamins) methenamine hippurate 1 gram tablet 1 g PO BID 10/22/24 01/26/25 Hi story dvcwql-eexrifjd-mnmgjwu 2 cap PO .COMPLEX #900 caps 01/26/25 Rx 40,000-126,000-168,000 unit capsule, delay rel (Zenpep) cholecalciferol (vitamin D3) 1,250 1,250 mcg PO .QD 01/06/25 History mcg (50,000 unit) capsule Have you fallen in the past year?: No Nurse's Note: Patient was unable to hold urine after she had a strong desire to void. [facility] Medical History (Updated 02/10/25 @ 12:13 by [...] of bilate (more content not included)... Normal [facility] Inital Evaluation (1) - PTon 01-13-2025 Inital Evaluation (1) - PT [facility] Physical Therapy [facility] [address] [place] [address] / REHABILITATION SERVICES INITIAL EVALUATION MR#: [id number] Acct: [id number] Name: MADELYN LOVE Rep #: [id number] : 1945 79 From: Kourtney Storm Referring Dr.: LOUIS Jimenez Status: R EG RCR Insurance: MEDICARE PART [facility] Patient's Visit Information Visit Information Visit Information: MADELYN LOVE is a 79 year old F referred to Physical Therapy by Jenny Aguirre NP-C with a diagnosis of Full incontinence of [...] Goal Time Frame: 8-12 Weeks Goal 3:: Sandros back pain will be 50% less during [...] the op (more content not included)... Normal [facility] Gastroenterology Visit Repor ton 01-06-2025 Gastroenterology Visit Report [facility] Gastroenterology [address] [place] [address] OFFICE VISIT Date of Service: 01/06/25 MR#: [id number] Acct: [id number] Name: MADELYN LOVE Rep #: [id number] : 1945 Provider: LOUIS slaughter Age/Sex: 79/F Location: [facility] Status: Signed Intake Vital Signs 10/22/24 06:59 [...] BID 10/21/24 01/06/25 Hi story 125 unit-zinc 3.30sv-ydn-cuvj tablet (Calcium Citrate Plus) carbamazepine 100 mg 100 mg PO BID 10/21/24 01/06/25 Hi story capsule,extended release cayvpt09iq (Carbatrol) cholestyramine 4 gram oral powder 4 g PO QDAY 10/21/24 01/06/25 His tory for suspension in a packet finerenone 10 mg tablet (Kerendia) 10 mg PO QDAY 10/21/24 01/06/25 History vlbvjfmb-xtsxnvsb-bsag 45 mg-folic 1 cap PO .QD 10/21/24 01/06/25 H istory acid 800 mcg-vit K 120 mcg capsule (Bariatric Multivitamins) methenamine hippurate 1 gram tablet 1 g PO BID 10/22/24 01/06/25 Hi story cxbeov-etxvucxg-xpchwmt 2 cap PO .COMPLEX #900 caps 01/06/25 Rx 40,000-126,000-168,000 unit capsule, delay rel (Zenpep) cholecalciferol (vitamin D3) 1,250 1,250 mcg PO .QD 01/06/25 History mcg (50,000 unit) capsule Have you fallen in the past year?: No Nurse's Note: She is feeling some better. The bowels aren't coming as much but they are still coming so fast. [facility] Medical History Presence of upper and lower [...] repair of (more content not included)... Normal [facility] Microalb:Creat Ratio,Random URon 11-10-2024 Creatinine [Mass/Vol] 17.90 mg/dL Low 28.00- 217. 00 [facility] Comment on above: Performed By: #### L 502.3230, L500.3600 #### [facility] [address] [place], [address] MALB:CREAT UNABLE TO CALCULATE Normal [facility] Comment on above: Performed By: #### L 502.0250, L500.3600 #### [facility] [address] [place], [address] MICROALBUMIN,UR < 12.0 Normal NO RANGE EST. [facility] Comment on above: Performed By: #### L 502.0250, L500.3600 #### [facility] [address] [place], [address] Renal Profileon 11-10-2024 Albumin [Mass/Vol] 3.6 g/dL Normal 3.4-4.8 [facility] Comment on above: Performed By: #### L 502.0250, L500.3600 #### [facility] [address] [place], [address] BUN/CRE 43.7 RATIO High 10-20 [facility] Comment on above: Performed By: #### L 502.0250, L500.3600 #### [facility] [address] [place], [address] Calcium [Mass/Vol] 9.2 mg/dL Normal 7.6-11.0 [facility] Comment on above: Performed By: #### L 502.0250, L500.3600 #### [facility] [address] [place], [address] Chloride [Moles/Vol] 104 mmol/L Normal 98-108 [facility] Comment on above: Performed By: #### L 502.0250, L500.3600 #### [facility] [address] [place], [address] CO2 [Moles/Vol] 24.0 mmol/L Normal 21.0-32.0 [facility] Comment on above: Performed By: #### L 502.0250, L500.3600 #### [facility] [address] [place], [address] Creatinine [Mass/Vol] 0.82 mg/dL Normal 0.70-1.20 [facility] Comment on above: Performed By: #### L 502.0250, L500.3600 #### [facility] [address] [place], [address] GAP 11 Normal 5-15 [facility] Comment on above: Performed By: #### L 502.0250, L500.3600 #### [facility] [address] [place], [address] GFR/1.73 sq M.predicted among non-blacks MDRD (S/P/Bld) [Vol rate/Area] 73 mL/min/{1.73_m2} Normal >60 [facility] Comment on above: Result Comment: mL/m in/1.73m2 CKD-EPI Creatinine Equation (2020) Performed By: #### L 502.0250, L500.3600 #### [facility] [address] [place], [address] Glucose [Mass/Vol] 96 mg/dL Normal 70-99 [facility] Comment on above: Performed By: #### L 502.0250, L500.3600 #### [facility] [address] [place], [address] Phosphate [Mass/Vol] 4.3 mg/dL Normal 2.7-4.5 [facility] Comment on above: Performed By: #### L 502.0250, L500.3600 #### [facility] [address] [place], [address] Potassium [Moles/Vol] 4.6 mmol/L Normal 3.3-5.1 [facility] Comment on above: Performed By: #### L 502.0250, L500.3600 #### [facility] [address] [place], [address] Sodium [Moles/Vol] 139 mmol/L Normal 133-145 [facility] Comment on above: Performed By: #### L 502.0250, L500.3600 #### [facility] [address] [place], [address] Urea nitrogen [Mass/Vol] 36 mg/dL High - [facility] Comment on above: Performed By: #### L 502.0250, L500.3600 #### [facility] [address] [place], [address] Gastroenterology Visit Repor ton 11-02-2024 Gastroenterology Visit Report [facility] Gastroenterology [address] [place] [address] OFFICE VISIT Date of Service: 11/02/24 MR#: [id number] Acct: [id number] Name: MADELYN LOVE Rep #: [id number] : 1945 Provider: LOUIS slaughter Age/Sex: 79/F Location: [facility] Status: Signed Intake Vital Signs 06/08/24 12:43 10/22/24 06:59 11/02/24 15:27 Height 4 ft 8 in 4 ft 8 in BP 148/71 H Respiration 16 Pulse 84 Pulse Oximetry (%) 94 Oxygen Delivery Method room air Intake Visit Reasons: Test Result Chief Complaint: diarrhea Content Analyst Required: No Accompanied by: Is patient in [...] BID 10/21/24 11/02/24 Hi story 125 unit-zinc 3.10ln-rlg-yvmi tablet (Calcium Citrate Plus) carbamazepine 100 mg 100 mg PO BID 10/21/24 11/02/24 Hi story capsule,extended release vdgxsi79ez (Carbatrol) cholecalciferol (vitamin D3) 1,250 1,250 mcg PO QWEEK 10/21/2408/24 History mcg (50,000 unit) capsule cholestyramine 4 gram oral powder 4 g PO QDAY 10/21/24 11/02/24 His tory for suspension in a packet finerenone 10 mg tablet (Kerendia) 10 mg PO QDAY 10/21/24 11/02/24 History mbodrbof-jcgytpca-ipfq 45 mg-folic 1 cap PO .QD 10/21/24 [...] Hypertension Anemia (more content not included)... Normal [facility] Cardiology Visit Reporton Cardiology Visit Report [facility] [address] [place] [address] OFFICE VISIT Date of Service: 10/22/24 MR#: [id number] Acct: [id number] Name: KATEMADELYN CARDONAUERITE Rep #: [id number] : 1945 Provider: WALLY Nazario Age/Sex: 79/F Location: [facility] Status: Signed HPI HPI History of Present Illness Details: Madelyn Love is a 79-year-old lady who presents to the office today for a cardiovascular follow up visit. She has a history of labile hypertension and pedal edema. She did undergo a cardiac catheterization in 2011 in [place] prior to gastric bypass surgery. She also had an echocardiogram which had demonstrated preserved left ventricular systolic function. Because of her labile blood pressure she had been on blood pressure medication as well as diuretics which caused her to be hyponatremic. She was weaned off the diuretic and her symptoms have improved significantly. She did have an echocardiogram performed in 2018 in [place] which demonstrated preserved ejection fraction of 55% and moderate mitral regurgitation. Pt was diagnosed with a PE while she was in [place]. This was one week after she flew to [place]. 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 She has seen Dr. Julio. She has not had any chest pain/heaviness. She does not have any worsening SOB. She has not had any syncope, lightheadedness. She does have some swelling in her legs. She is seeing a lymphedema specialist in [place]. Intake Vital Signs 10/14/24 06:47 10/22/24 06:59 Height 4 ft 8 in 4 ft 8 in Weight: 139 lb BMI 31.1 BP 133/76 H Blood Pressure Location Lt brachial Position Sitting Respiration 18 Pulse 78 Pulse Source Monitor Pulse Oximetry (%) 95 Intake Visit Reasons: 6 M Content Analyst Required: No Is patient in pain?: No [...] BID 10/21/24 10/22/24 Hi story 125 unit-zinc 3.38sf-teh-jvue tablet (Calcium Citrate Plus) carbamazepine 100 mg 100 mg PO BID 10/21/24 10/22/24 Hi story capsule,extended release hrtivg27gv (Carbatrol) cholecalciferol (vitamin D3) 1,250 1,250 mcg [...] mg PO TID PRN 10/21/24 5 History uridzefg-uurmexpl-urbc 45 mg-folic 1 cap PO .QD 10/21/24 [...] History (Updated 10/22/24 @ 10:29 by Mary Blank PA, PA) Presence of upper and lower permanent [...] Non-smoker H (more content not included)... Normal [facility] Bedside Glucoseon 10-14-2024 FINGERSTICK GLU 100 mg/dL Normal 74-106 [facility] Comment on above: Result Comment: HAILEY PALMER OF PATIENT CARE PER NURSING PROTOCOL Performed By: #### L 501.080 ####[facility] [id number] [facility] [place], [address] Colonoscopy Reporton 025 Colonoscopy Report [facility] Medical Records Department [address] [place] [address] Colonoscopy Report MR#: [id number] Acct: [id number] Name: MADELYN LOVE Rep #: [id number] : 1945 79 From: Herman Ochoa DO PCP: Dr. Hugo Julio MD Status:[facility] Patient Name: Madelyn Love Procedure Date: 10/14/2024 [...] for surveillance. Procedure Code(s): --- Professional --- 86342, Colonoscopy, flexible; diagnostic, including collection of specimen(s) by brushing or washing, when performed (separate procedure) CPT copyright 2021 [employer]. All rights reserved. The codes documented in this report are preliminary and upon coil cleaner review may be revised to meet current compliance requirements. Herman Ochoa DO 10/14/2024 7:59:31 AM This report has been signed electronically. Number of Addenda: 0 Note Initiated On: 10/14/2024 7:21 AM 10/14/24 0759 Date Herman Ochoa DO Cosigner Signature: Date (if indicated) CC: Dr. Hugo Julio MD; Herman Ochoa DO Date Dictated: 10/14/24 0721 Date Transcribed: [employer] Internship: CHUN Signed [facility] MR/POSTOP.[facility] 10-14-2024 MR/POSTOP.[facility] Medical Records Department [address] [place] [address] Anesthesia Postop Eval I 10/14/24 0759 MR#: [id number] Acct: [id number] Name: MADELYN LOVE Rep #: [id number] : 1945 79 From: Skye Hall PCP: Dr. Hugo Julio MD Status:REG SDC Y Race: C Location: [place] [address] Anesthesia: Postop Eval I Current Vital Signs [...] Skye Cordova Signature: Date CC: Signed Normal [facility] MR/WHWLYKGK2ym 10-14-2024 MR/POSTOPAN2 [facility] Medical Records Department [address] [place] [address] Anesthesia Postop Eval II 10/14/24 1050 MR#: [id number] Acct: [id number] Name: MADELYN LOVE Rep #: [id number] : 1945 79 From: Km Morton MD PCP: Dr. Hugo Julio MD Status:[facility] Y Race: C Location: EN [...] Anesthesia Complication: No 10/14/24 1050 Date Km Morton MD Cosignamber Signature: Date CC: Signed Normal [facility] Comprehensive Metabolic Prof ilon 10-13-2024 Albumin [Mass/Vol] 3.3 g/dL Low 3.4-4.8 [facility] Comment on above: Performed By: #### L 502.0250, L500.3600 #### [facility] [address] [place], [address] Albumin/Globulin [Mass ratio] 1.3 {ratio} Normal 0.9-2.4 [facility] Comment on above: Performed By: #### L 502.0250, L500.3600 #### [facility] [address] [place], [address] ALK PHOS 66 U/L Normal 35-104 [facility] Comment on above: Performed By: #### L 502.0250, L500.3600 #### [facility] [address] [place], [address] ALT [Catalytic activity/Vol] 14 U/L Normal <=34 [facility] Comment on above: Performed By: #### L 502.0250, L500.3600 #### [facility] [address] [place], [address] AST [Catalytic activity/Vol] 20 U/L Normal <=31 [facility] Comment on above: Performed By: #### L 502.0250, L500.3600 #### [facility] [address] [place], [address] Bilirubin [Mass/Vol] 0.30 mg/dL Normal 0.00-1.30 [facility] Comment on above: Performed By: #### L 502.0250, L500.3600 #### [facility] [address] [place], [address] BUN/CRE 30.7 RATIO High 10-20 [facility] Comment on above: Performed By: #### L 502.0250, L500.3600 #### [facility] [address] [place], [address] Calcium [Mass/Vol] 9.1 mg/dL Normal 7.6-11.0 [facility] Comment on above: Performed By: #### L 502.0250, L500.3600 #### [facility] [address] [place], [address] Chloride [Moles/Vol] 101 mmol/L Normal 98-108 [facility] Comment on above: Performed By: #### L 502.0250, L500.3600 #### [facility] [address] [place], [address] CO2 [Moles/Vol] 25.2 mmol/L Normal 21.0-32.0 [facility] Comment on above: Performed By: #### L 502.0250, L500.3600 #### [facility] [address] [place], [address] Creatinine [Mass/Vol] 0.91 mg/dL Normal 0.70-1.20 [facility] Comment on above: Performed By: #### L 502.0250, L500.3600 #### [facility] [address] [place], [address] GAP 10 Normal 5-15 [facility] Comment on above: Performed By: #### L 502.0250, L500.3600 #### [facility] [address] [place], [address] GFR/1.73 sq M.predicted among non-blacks MDRD (S/P/Bld) [Vol rate/Area] 65 mL/min/{1.73_m2} Normal >60 [facility] Comment on above: Result Comment: mL/m in/1.73m2 CKD-EPI Creatinine Equation (2020) Performed By: #### L 502.0250, L500.3600 #### [facility] [address] [place], [address] Globulin (S) [Mass/Vol] 2.6 g/dL Normal 2.2-4.2 [facility] Comment on above: Performed By: #### L 502.0250, L500.3600 #### [facility] [address] [place], [address] Glucose [Mass/Vol] 93 mg/dL Normal 70-99 [facility] Comment on above: Performed By: #### L 502.0250, L500.3600 #### [facility] [address] [place], [address] Potassium [Moles/Vol] 4.1 mmol/L Normal 3.3-5.1 [facility] Comment on above: Performed By: #### L 502.0250, L500.3600 #### [facility] [address] [place], [address] Sodium [Moles/Vol] 136 mmol/L Normal 133-145 [facility] Comment on above: Performed By: #### L 502.0250, L500.3600 #### [facility] [address] [place], [address] T PROT 5.8 g/dL Low 5.9-8.4 [facility] Comment on above: Performed By: #### L 502.0250, L500.3600 #### [facility] [address] [place], [address] Urea nitrogen [Mass/Vol] 28 mg/dL High 4-19 [facility] Comment on above: Performed By: #### L 502.0250, L500.3600 #### [facility] [address] [place], [address] Hemoglobin A1con 10-13-2024 HbA1c (Bld) [Mass fraction] 6.1 % High <=5.6 [facility] Comment on above: Result Comment: Norm al < 5.7 % Prediabetic 5.7 - 6.4 % Diabetic >or= 6.5 % Please note range changes. Performed By: #### L 502.0250, L500.3600 #### [facility] [address] [place], [address] Microalbumin,Random Urineon 10-13-2024 MICROALBUMIN,UR < 12.0 Normal NO RANGE EST. [facility] Comment on above: Performed By: #### L 502.0250, L500.3600 #### [facility] [address] [place], [address] PTHINon 10-13-2024 PTH 29 pg/mL Normal 11-61 [facility] Comment on above: Performed By: #### L 502.0250, L500.3600 #### [facility] [address] [place], [address] Vitamin D,25 Hydroxyon 10-13 Vitamin D 25-OH 52.8 ng/mL Normal 30-100 [facility] Comment on above: Result Comment: Courtney min D Status Deficiency: <20 ng/mL (50nmol/L) Insufficiency: 20-30 ng/mL (50-75 nmol/L) Sufficiency: 30-100 ng/mL (75-250 nmol/L) Toxicity: >100 ng/mL (>250 nmol/L) Performed By: #### L 502.0250, L500.3600 #### [facility] [address] [place], [address] MR/PATHelen 10-12-2024 MR/PAT.JONH [facility] Medical Records Department [address] [place] [address] PAT - Anesthesia 10/12/24 1222 MR#: [id number] Acct: [id number] Name: MADELYN LOVE Rep #: [id number] : 1945 79 From: Km Morton MD PCP: Dr. 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 Hx Hospitalization Yes: 06/2024 IN [place] LOW 10/12/24 10:53 NA, LOW K, HYPOGLYCEMIA, [...] take am of surgery PONV PONV - roof tile layer: PONV - roof tile layer Female Yes 10/12/24 10:53 HX of Motion [...] 06/08/24 12:43 Respiratory Assessment Respiratory Assessment - roof tile layer: Respiratory Tract Infection Hx - roof tile layer Hx Respiratory Tract Infection No 10/12/24 10:53 STOP Sleep Apnea STOP Sleep Apnea - roof tile layer: STOP Sleep Apnea - roof tile layer Hx Hypertension Yes 10/12/24 10:53 Hx Sleep [...] Tobacco Use History Tobacco Use History - roof tile layer: Tobacco Use History - roof tile layer Tobacco Use Smoking Status Never smoker 10/12/24 10:53 Hx Tobacco Use No 10/12/24 10:53 Years Smoking Packs Smoked per Day Smoking Cessation Date was within the last 15 years Hx Smoking Cessation Date Hx Smoking Cessation Counseling Hematologic Medial History Hematologic Hx - roof 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 Specify any problems Hx of Preganancy in last 3 No 10/12/24 10:53 Months Nurse Filling Out Transfusion [facility] 10/12/24 10:53 Questions: Date: 10/12/24 10/12/24 10:53 Time: 11:09 10/12/24 10:53 Patient unable to answer at this time (ie. confused, unrespo /Reproduction History /Reproductive History - roof tile layer: /Reproductive Hx- roof tile layer Hx Now No 10/12/24 10:53 Gestational Age (in weeks): EDC: Hx Hx Para Hx Section SAB PFSH Medical History Presence of upper and [...] disease) Osteoporosis (more content not included)... Normal [facility] Albumin, Serumon 06-08-2024 Albumin [Mass/Vol] 2.5 g/dL Low 3.2-5.0 [facility] Comment on above: Order Comment: BENIGNO Tapia ADD ALB TO BLOOD DRAWN 06/04/24 PER Performed By: #### L 501.1800, L500.2500, L506.1000, L509.1000 #### [facility] [address] [place], [address] Gastroenterology Visit Repor ton 06-08-2024 Gastroenterology Visit Report [facility] Gastroenterology [address] [place] [address] OFFICE VISIT Date of Service: 06/08/24 MR#: [id number] Acct: [id number] Name: MADELYN LOVE Rep #: [id number] : 1945 Provider: LOUIS slaughter Age/Sex: 78/F Location: [facility] Status: Signed Intake Vital Signs 05/19/24 11:06 06/08/24 12:43 Height 4 ft 8 in 4 ft 8 in Weight: 147 lb BMI 32.9 BP 114/69 Respiration 18 Pulse 72 Pulse Oximetry (%) 93 Intake Visit Reasons: 2 W FU Chief Complaint: diarrhea Content Analyst Required: No Accompanied by: Is patient in [...] PO BID 05/19/24 06/08/24 History capsule,extended release [id number] carvedilol 25 mg tablet 12.5 mg PO BID 05/19/24 06/08/24 History denosumab 60 mg/mL subcutaneous 60 mg subcut [id number] 05/19/24 06/08/24 History syringe (Prolia) furosemide 20 [...] bowel movement but is [place] in color. [facility] Medical History (Updated 06/08/24 @ 20:16 by Jenny Aguirre, INTERACTIVE MEDIA MARKETING SPECIALIST-C) Urge incontinence of urine Candidiasis of female [...] Arthritis So (more content not included)... Normal [facility] Basic Metabolic Profile (BMP )on 06-04-2024 BUN/CRE 32.8 RATIO High 10-20 [facility] Comment on above: Performed By: #### L 501.1800, L500.2500, L506.1000, L509.1000 #### [facility] [address] [place], [address] CA,Total 8.9 mg/dL Normal 8.5-10.1 [facility] Comment on above: Performed By: #### L 501.1800, L500.2500, L506.1000, L509.1000 #### [facility] [address] [place], [address] Chloride [Moles/Vol] 103 mmol/L Normal 98-107 [facility] Comment on above: Performed By: #### L 501.1800, L500.2500, L506.1000, L509.1000 #### [facility] [address] [place], [address] CO2 [Moles/Vol] 27.0 mmol/L Normal 21.0-32.0 [facility] Comment on above: Performed By: #### L 501.1800, L500.2500, L506.1000, L509.1000 #### [facility] [address] [place], [address] Creatinine [Mass/Vol] 1.31 mg/dL High 0.55-1.02 [facility] Comment on above: Result Comment: The validity of the calculated GFR GFRAA in patients over 70 years has not been determined. Clinical correlation is essential. Performed By: #### L 501.1800, L500.2500, L506.1000, L509.1000 #### [facility] [address] [place], [address] EST GFR - AA 51 mL/min Low >60 [facility] Comment on above: Result Comment: Afri can [place] GFR Calc Performed By: #### L 501.1800, L500.2500, L506.1000, L509.1000 #### [facility] [address] [place], [address] GAP 5 Normal 5-15 [facility] Comment on above: Performed By: #### L 501.1800, L500.2500, L506.1000, L509.1000 #### [facility] [address] [place], [address] GFR/1.73 sq M.predicted among non-blacks MDRD (S/P/Bld) [Vol rate/Area] 42 mL/min/{1.73_m2} Low >60 [facility] Comment on above: Result Comment: Non- GFR Calc Performed By: #### L 501.1800, L500.2500, L506.1000, L509.1000 #### [facility] [address] [place], [address] Glucose [Mass/Vol] 87 mg/dL Normal 74-106 [facility] Comment on above: Performed By: #### L 501.1800, L500.2500, L506.1000, L509.1000 #### [facility] [address] [place], [address] Potassium [Moles/Vol] 4.6 mmol/L Normal 3.5-5.1 [facility] Comment on above: Performed By: #### L 501.1800, L500.2500, L506.1000, L509.1000 #### [facility] [address] [place], [address] Sodium [Moles/Vol] 135 mmol/L Low 136-145 [facility] Comment on above: Performed By: #### L 501.1800, L500.2500, L506.1000, L509.1000 #### [facility] [address] [place], [address] Urea nitrogen [Mass/Vol] 43 mg/dL High 7-18 [facility] Comment on above: Performed By: #### L 501.1800, L500.2500, L506.1000, L509.1000 #### [facility] [address] [place], [address] PTHINon 06-04-2024 PTH 23.2 pg/mL Normal 18.4-80.1 [facility] Comment on above: Performed By: #### L 501.1800, L500.2500, L506.1000, L509.1000 #### [facility] [address] [place], [address] Vitamin D,25 Hydroxyon 06-04 Vitamin D 25-OH 76.6 ng/mL Normal [facility] Comment on above: Result Comment: Courtney min D 25(OH) Status Range Deficiency <20 ng/mL (50nmol/L) Insufficiency 20 - 30 ng/mL (50 - 75 nmol/L) Sufficiency 30 - 100 ng/mL (75 - 250 nmol/L) Toxicity >100 ng/mL (>250 nmol/L) Performed By: #### L 501.1800, L500.2500, L506.1000, L509.1000 #### [facility] [address] [place], [address] Basic Metabolic Profile (BMP )on 06-03-2024 BUN Normal 7-18 [facility] Comment on above: Result Comment: UTO Performed By: #### L 502.0250, L500.3600 #### [facility] [address] [place], [address] BUN/CRE Normal 10-20 [facility] Comment on above: Result Comment: UTO Performed By: #### L 502.0250, L500.3600 #### [facility] [address] [place], [address] CA,Total Normal 8.5-10.1 [facility] Comment on above: Result Comment: UTO Performed By: #### L 502.0250, L500.3600 #### [facility] [address] [place], [address] CL Normal 98-107 [facility] Comment on above: Result Comment: UTO Performed By: #### L 502.0250, L500.3600 #### [facility] [address] [place], [address] CO2 Normal 21.0-32.0 [facility] Comment on above: Result Comment: UTO Performed By: #### L 502.0250, L500.3600 #### [facility] [address] [place], [address] CREAT,SERUM Normal 0.55-1.02 [facility] Comment on above: Result Comment: UTO Performed By: #### L 502.0250, L500.3600 #### [facility] [address] [place], [address] EST GFR Normal >60 [facility] Comment on above: Result Comment: UTO Performed By: #### L 502.0250, L500.3600 #### [facility] [address] [place], [address] EST GFR - AA Normal >60 [facility] Comment on above: Result Comment: UTO Performed By: #### L 502.0250, L500.3600 #### [facility] [address] [place], [address] GAP Normal 5-15 [facility] Comment on above: Result Comment: UTO Performed By: #### L 502.0250, L500.3600 #### [facility] [address] [place], [address] GLU Normal 74-106 [facility] Comment on above: Result Comment: UTO Performed By: #### L 502.0250, L500.3600 #### [facility] [address] [place], [address] Potassium Normal 3.5-5.1 [facility] Comment on above: Result Comment: UTO Performed By: #### L 502.0250, L500.3600 #### [facility] [address] [place], [place], [address] Basic Metabolic Profile (BMP) Normal 136-145 [facility] Comment on above: Result Comment: UTO Performed By: #### L 502.0250, L500.3600 #### [facility] [address] [place], [address] Ova and Parasites 8623on OP OVA AND PARASITES EX AM, ROUTINE These results were obtained using wet preparation(s) and trichrome stained smear. This test does not include testing for Crytosporidium parvum, Cyclospora, or Microsporidia. One negative specimen does not rule out the possibility of a parasitic infection. TESTING PERFORMED AT [facility]. ORIGINAL REPORT ON FILE IN LAB CONTAINS ADDITIONAL TEST SITE INFORMATION. Ova/Parasite Exam NO OVA, CYSTS, OR PARASITES FOUND. Normal [facility] Comment on above: Performed By: #### L 502.0250, L500.3602 #### [facility] [address] [place], [place], [address] Comprehensive Metabolic Prof ilon 05-24-2024 Albumin [Mass/Vol] 2.3 g/dL Low 3.2-5.0 [facility] Comment on above: Order Comment: Inter face Comments: standing Order Date: 05/18/24 Order Info: 0786-1 - CMP standing Performed By: #### L 500.4050 #### [facility] [address] [place], [place], [address] Albumin/Globulin [Mass ratio] 0.7 {ratio} Low 0.9-2.4 [facility] Comment on above: Order Comment: Inter face Comments: standing Order Date: 05/18/24 Order Info: 0786-1 - CMP standing Performed By: #### L 500.4050 #### [facility] [address] [place], [address] ALK P 110 U/L Normal 45-117 [facility] Comment on above: Order Comment: Inter face Comments: standing Order Date: 05/18/24 Order Info: 0786-1 - CMP standing Performed By: #### L 500.4050 #### [facility] [address] [place], [address] ALT [Catalytic activity/Vol] 19 U/L Normal 13-56 [facility] Comment on above: Order Comment: Inter face Comments: standing Order Date: 05/18/24 Order Info: 0786-1 - CMP standing Performed By: #### L 500.4050 #### [facility] [address] [place], [address] AST [Catalytic activity/Vol] 18 U/L Normal 15-37 [facility] Comment on above: Order Comment: Inter face Comments: standing Order Date: 05/18/24 Order Info: 0786-1 - CMP standing Performed By: #### L 500.4050 #### [facility] [address] [place], [address] Bilirubin [Mass/Vol] 0.20 mg/dL Normal 0.20-1.00 [facility] Comment on above: Order Comment: Inter face Comments: standing Order Date: 05/18/24 Order Info: 0786-1 - CMP standing Result Comment: For patients on eltrombopag therapy, use of Dimension Agra TBIL is not recommended. Performed By: #### L 500.4050 #### [facility] [address] [place], [address] BUN/CRE 27.6 RATIO High 10-20 [facility] Comment on above: Order Comment: Inter face Comments: standing Order Date: 05/18/24 Order Info: 0786-1 - CMP standing Performed By: #### L 500.4050 #### [facility] [address] [place], [place], [address] CA,Total 8.6 mg/dL Normal 8.5-10.1 [facility] Comment on above: Order Comment: Inter face Comments: standing Order Date: 05/18/24 Order Info: 0786-1 - CMP standing Performed By: #### L 500.4050 #### [facility] [address] [place], [place], [id number] Chloride [Moles/Vol] 102 mmol/L Normal 98-107 [facility] Comment on above: Order Comment: Inter face Comments: standing Order Date: 05/18/24 Order Info: 0786-1 - CMP standing Performed By: #### L 500.4050 #### [facility] [address] [place], [address] CO2 [Moles/Vol] 32.0 mmol/L Normal 21.0-32.0 [facility] Comment on above: Order Comment: Inter face Comments: standing Order Date: 05/18/24 Order Info: 0786-1 - CMP standing Performed By: #### L 500.4050 #### [facility] [address] [place], [address] Creatinine [Mass/Vol] 1.05 mg/dL High 0.55-1.02 [facility] Comment on above: Order Comment: Inter face Comments: standing Order Date: 05/18/24 Order Info: 0786-1 - CMP standing Result Comment: The validity of the calculated GFR GFRAA in patients over 70 years has not been determined. Clinical correlation is essential. Performed By: #### L 500.4050 #### [facility] [address] [place], [address] EST GFR - AA 65 mL/min Normal >60 [facility] Comment on above: Order Comment: Inter face Comments: standing Order Date: 05/18/24 Order Info: 0786-1 - CMP standing Result Comment: Afri can [place]an GFR Calc Performed By: #### L 500.4050 #### [facility] [address] [place], [address] GAP 4 Low 5-15 [facility] Comment on above: Order Comment: Inter face Comments: standing Order Date: 05/18/24 Order Info: 0786-1 - CMP standing Performed By: #### L 500.4050 #### [facility] [address] [place], [address] GFR/1.73 sq M.predicted among non-blacks MDRD (S/P/Bld) [Vol rate/Area] 54 mL/min/{1.73_m2} Low >60 [facility] Comment on above: Order Comment: Inter face Comments: standing Order Date: 05/18/24 Order Info: 0786-1 - CMP standing Result Comment: Non- GFR Calc Performed By: #### L 500.4050 #### [facility] [address] [place], [place], [address] Globulin (S) [Mass/Vol] 3.1 g/dL Normal 2.2-4.2 [facility] Comment on above: Order Comment: Inter face Comments: standing Order Date: 05/18/24 Order Info: 0786-1 - CMP standing Performed By: #### L 500.4050 #### [facility] [address] [place], [address] Glucose [Mass/Vol] 101 mg/dL Normal 74-106 [facility] Comment on above: Order Comment: Inter face Comments: standing Order Date: 05/18/24 Order Info: 0786-1 - CMP standing Result Comment: Fast ing Glucose result from 100 to 125 mg/dL suggests IMPAIRED HOMEOSTASIS per A.D.A. criteria. Performed By: #### L 500.4050 #### [facility] [address] [place], [place], [address] Potassium [Moles/Vol] 4.5 mmol/L Normal 3.5-5.1 [facility] Comment on above: Order Comment: Inter face Comments: standing Order Date: 05/18/24 Order Info: 0786-1 - CMP standing Performed By: #### L 500.4050 #### [facility] [address] [place], [place], [address] Sodium [Moles/Vol] 138 mmol/L Normal 136-145 [facility] Comment on above: Order Comment: Inter face Comments: standing Order Date: 05/18/24 Order Info: 0786-1 - CMP standing Performed By: #### L 500.4050 #### [facility] [address] [place], [place], [address] T PROT 5.4 g/dL Low 6.4-8.2 [facility] Comment on above: Order Comment: Inter face Comments: standing Order Date: 05/18/24 Order Info: 0786-1 - CMP standing Performed By: #### L 500.4050 #### [facility] [address] [place], [place], [address] Urea nitrogen [Mass/Vol] 29 mg/dL High 7-18 [facility] Comment on above: Order Comment: Inter face Comments: standing Order Date: 05/18/24 Order Info: 0786-1 - CMP standing Performed By: #### L 500.4050 #### [facility] [address] [place], [place], [address] Calprotectin, Stoolon [address] 441 ug/g Abnormal 0-120 [facility] Comment on above: Result Comment: Conc entration Interpretation Follow-Up < 5 - 50 ug/g Normal None >50 -120 ug/g Borderline Re-evaluate in 4-6 weeks >120 ug/g Abnormal Repeat as clinically indicated Performed at: - [facility] [id number] Consultant Internship: Joan Ye MD, Phone: [phone] Performed By: #### L 501.1800, L500.2500, L506.1000, L509.1000 #### [facility] [address] [place], [place], [id number] Urine Cultureon 05-23-2024 URC Klebsiella pneumonia e sp pneum [place] Count >100,000 Escherichia coli Escherichia coli Klebsiella [...] TMP SMX Islt ALAN <=20 S Normal [facility] Comment on above: Performed By: #### L 502.0250, L500.3600 #### [facility] [address] [place], [place], [id number] ENTERIC PATHOGEN PANEL STOOL on 05-20-2024 EP PANEL CAMPYLOBACTER Not Detected Norovirus Not Detected Rotavirus Not Detected Salmonella Not Detected Shiga Toxin Not Detected Shigella sp. Not Detected VIBRIO Not Detected Yersinia Not Detected Normal [facility] Comment on above: Performed By: #### L 501.1800, L500.2500, L506.1000, L509.1000 #### [facility] [address] [place], [place], [id number] Urinalysis, Completeon 05-20 BACTERIA 1+ /hpf Normal None Seen [facility] Comment on above: Order Comment: COLLE CTOR TO SPECIFY Performed By: #### L 501.1800, L500.2500, L506.1000, L509.1000 #### [facility] [address] [place], [address] EPI,SQUAMOUS 0-5 SEEN Normal 5-10 [facility] Comment on above: Order Comment: COLLE CTOR TO SPECIFY Performed By: #### L 501.1800, L500.2500, L506.1000, L509.1000 #### [facility] [address] [place], [address] WBC 10-25 SEEN Normal 0-5 [facility] Comment on above: Order Comment: COLLE CTOR TO SPECIFY Performed By: #### L 501.1800, L500.2500, L506.1000, L509.1000 #### [facility] [address] [place], [address] Mucus Ql (Urine sed) 0 SEEN Normal [facility] Comment on above: Order Comment: COLLE CTOR TO SPECIFY Performed By: #### L 501.1800, L500.2500, L506.1000, L509.1000 #### [facility] [address] [place], [address] RBC 0 SEEN Normal 0-5 [facility] Comment on above: Order Comment: COLLE CTOR TO SPECIFY Performed By: #### L 501.1800, L500.2500, L506.1000, L509.1000 #### [facility] [address] [place], [address] CBC W/Diff, Automatedon - Absolute Lymph 1.50 X10 3/uL Normal 0.83-4.51 [facility] Comment on above: Performed By: #### L 501.1800, L500.2500, L506.1000, L509.1000 #### [facility] [address] [place], [address] Absolute Neut 4.6 X10 3/uL Normal 2.0-7.7 [facility] Comment on above: Performed By: #### L 501.1800, L500.2500, L506.1000, L509.1000 #### [facility] [address] [place], [address] Basophils/100 WBC (Bld) 0.6 % Normal 0-1 [facility] Comment on above: Performed By: #### L 501.1800, L500.2500, L506.1000, L509.1000 #### [facility] [address] [place], [address] Eosinophils/100 WBC (Bld) 2.3 % Normal 0-5 [facility] Comment on above: Performed By: #### L 501.1800, L500.2500, L506.1000, L509.1000 #### [facility] [address] [place], [address] Erythrocyte distribution width (RBC) [Ratio] 14.8 % High 11.6-14.6 [facility] Comment on above: Performed By: #### L 501.1800, L500.2500, L506.1000, L509.1000 #### [facility] [address] [place], [address] Hematocrit (Bld) [Volume fraction] 36.3 % Low 37-47 [facility] Comment on above: Performed By: #### L 501.1800, L500.2500, L506.1000, L509.1000 #### [facility] [address] [place], [address] Hemoglobin (Bld) [Mass/Vol] 11.1 g/dL Low 12.0-15.0 [facility] Comment on above: Performed By: #### L 501.1800, L500.2500, L506.1000, L509.1000 #### [facility] [address] [place], [address] IG% 0.300 Normal 0.0-0.9 [facility] Comment on above: Result Comment: IG% - Immature Granulocytes (promyelocytes, myelocytes and metamyelocytes) > 1% indicates that a LEFT SHIFT is Present. Performed By: #### L 501.1800, L500.2500, L506.1000, L509.1000 #### [facility] [address] [place], [address] Lymphocytes/100 WBC (Bld) 21.2 % Normal 19-41 [facility] Comment on above: Performed By: #### L 501.1800, L500.2500, L506.1000, L509.1000 #### [facility] [address] [place], [address] MCH (RBC) [Entitic mass] 32.3 pg High 27.0-32.0 [facility] Comment on above: Performed By: #### L 501.1800, L500.2500, L506.1000, L509.1000 #### [facility] [address] [place], [address] MCHC (RBC) [Mass/Vol] 30.6 g/dL Low 32-36 [facility] Comment on above: Performed By: #### L 501.1800, L500.2500, L506.1000, L509.1000 #### [facility] [address] [place], [address] MCV (RBC) [Entitic vol] 105.5 fL High 81-99 [facility] Comment on above: Performed By: #### L 501.1800, L500.2500, L506.1000, L509.1000 #### [facility] [address] [place], [address] Monocytes/100 WBC (Bld) 9.9 % Normal 0-10 [facility] Comment on above: Performed By: #### L 501.1800, L500.2500, L506.1000, L509.1000 #### [facility] [address] [place], [address] Neutrophils/100 WBC (Bld) 65.7 % Normal 47-70 [facility] Comment on above: Performed By: #### L 501.1800, L500.2500, L506.1000, L509.1000 #### [facility] [address] [place], [address] Nucleated RBC (Bld) [#/Vol] 0 10*3/uL Normal 0-5 [facility] Comment on above: Performed By: #### L 501.1800, L500.2500, L506.1000, L509.1000 #### [facility] [address] [place], [address] Platelet mean volume (Bld) [Entitic vol] 9.1 fL Normal 6.2-12.0 [facility] Comment on above: Performed By: #### L 501.1800, L500.2500, L506.1000, L509.1000 #### [facility] [address] [place], [address] Platelets (Bld) [#/Vol] 233 10*3/uL Normal 150-450 [facility] Comment on above: Performed By: #### L 501.1800, L500.2500, L506.1000, L509.1000 #### [facility] [address] [place], [address] RBC (Bld) [#/Vol] 3.44 10*6/uL Low 4.2-5.4 [facility] Comment on above: Performed By: #### L 501.1800, L500.2500, L506.1000, L509.1000 #### [facility] [address] [place], [address] RDW SD 57.2 fl High 35.1-43.9 [facility] Comment on above: Performed By: #### L 501.1800, L500.2500, L506.1000, L509.1000 #### [facility] [address] [place], [address] WBC (Bld) [#/Vol] 7.1 10*3/uL Normal 4.4-11.0 [facility] Comment on above: Performed By: #### L 501.1800, L500.2500, L506.1000, L509.1000 #### [facility] [address] [place], [address] Ferritinon 05-19-2024 Ferritin [Mass/Vol] 90 ng/mL Normal 8-252 [facility] Comment on above: Performed By: #### L 501.1800, L500.2500, L506.1000, L509.1000 #### [facility] [address] [place], [address] Gastroenterology Visit Repor ton 05-19-2024 Gastroenterology Visit Report [facility]astroenterology [address] [place] [address] OFFICE VISIT Date of Service: 05/19/24 MR#: [id number] Acct: [id number] Name: MADELYN LOVE Rep #: [id number] : 1945 Provider: LOUIS slaughter Age/Sex: 78/F Location: [facility] Status: Signed Intake Vital Signs 04/27/24 14:34 05/19/24 11:06 Height 4 ft 8 in 4 ft 8 in Weight: 154 lb BMI 34.5 BP 138/81 H Respiration 20 H Pulse 81 Pulse Oximetry (%) 92 Oxygen Delivery Method room air Intake Visit Reasons: Fecal incontinence Chief Complaint: diarrhea Content Analyst Required: No Allergies Corticosteroids (Glucocorticoids) Adverse Reaction [...] PO BID 05/19/24 05/19/24 History capsule,extended release [id number] carvedilol 25 mg tablet 12.5 mg PO BID 05/19/24 History cholestyramine-aspartame 4 gram 1 ea PO QDAY 05/19/24 05/19/24 History oral powder for susp in a packet denosumab 60 mg/mL subcutaneous 60 mg subcut [id number] 05/19/24 05/19/24 History syringe (Prolia) diphenhydramine HCl [...] fluid retention has it going back up. [facility] Medical History Urge incontinence of urine Candidiasis [...] catheterization Hi (more content not included)... Normal [facility] Ironon 05-19-2024 Iron [Mass/Vol] 36 ug/dL Low 50-170 [facility] Comment on above: Performed By: #### L 501.1800, L500.2500, L506.1000, L509.1000 #### [facility] [address] [place], [place], [address] Iron Binding Capacity,Totalo n 05-19-2024 TIBC 196 ug/dL Low 250-450 [facility] Comment on above: Performed By: #### L 501.1800, L500.2500, L506.1000, L509.1000 #### [facility] [address] [place], [place], [address] Neurology Visit Reporton Neurology Visit Report [facility] [address], [address] [place], [place] [address] OFFICE VISIT Date of Service: 05/03/24 MR#: [id number] Acct: [id number] Name: MADELYN LOVE Rep #: [id number] : 1945 Provider: Dr. Chris chapman MD Age/Sex: 78/F Location: [facility]. Status: Signed HPI HPI Chief Complaint: Details: Interim History: Madelyn returns for follow-up visit. She has a history of hypertension, congestive heart failure, bariatric surgery in 2012 and diabetes mellitus. In mid-2020 she was being treated for persistent sinus [...] and had fatigue and was evaluated at [facility] [place] and was found to have a serum [...] 2016 and July 2020. 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 She has been diagnosed with irritable bowel [...] November 2021 (prior to initiation of donepezil), in May 2022 (following initiation of donepezil) and in October 2022, in January 2023, and in October 2023. She has had bilateral [...] are not (more content not included)... Normal [facility] Cardiology Visit Reporton Cardiology Visit Report [facility] [address] [place] [address]. [address] [place] [address] OFFICE VISIT Date of Service: 04/27/24 MR#: [id number] Acct: [id number] Name: MADELYN LOVE Rep #: [id number] : 1945 Provider: WALLY Nazario Age/Sex: 78/F Location: [facility] Status: Signed HPI HPI History of Present Illness Details: Madelyn Love is a 78-year-old lady who presents to the office today for a cardiovascular follow up visit. She has a history of labile hypertension and pedal edema. She did undergo a cardiac catheterization in 2011 in [place] prior to gastric bypass surgery. She also had an echocardiogram which had demonstrated preserved left ventricular systolic function. Because of her labile blood pressure she had been on blood pressure medication as well as diuretics which caused her to be hyponatremic. She was weaned off the diuretic and her symptoms have improved significantly. She did have an echocardiogram performed in 2018 in [place] which demonstrated preserved ejection fraction of 55% [...] (%) 96 Intake Visit Reasons: 6 M Content Analyst Required: No Is patient in pain?: No [...] denosumab 60 mg/mL subcutaneous 60 mg subcut [id number] 10/31/22 04/27/24 History syringe (Prolia) mirabegron 25 [...] the past year?: No PFSH Medical History Urge incontinence of urine Candidiasis [...] Constipation Diarrhea (more content not included)... Normal [facility] Comprehensive Metabolic Prof krish 04-26-2024 Albumin [Mass/Vol] 2.2 g/dL Low 3.2-5.0 [facility] Comment on above: Performed By: #### L 500.4050, L501.9985, L509.1000 ####[facility] [address] [place], [address] Albumin/Globulin [Mass ratio] 0.8 {ratio} Low 0.9-2.4 [facility] Comment on above: Performed By: #### L 500.4050, L501.9985, L509.1000 ####[facility] [address] [place], [address] ALK P 108 U/L Normal 45-117 [facility] Comment on above: Performed By: #### L 500.4050, L501.9985, L509.1000 ####[facility] [address] [place], [address] ALT [Catalytic activity/Vol] 17 U/L Normal 13-56 [facility] Comment on above: Performed By: #### L 500.4050, L501.9985, L509.1000 ####[facility] [address] [place], [address] AST [Catalytic activity/Vol] 12 U/L Low 15-37 [facility] Comment on above: Performed By: #### L 500.4050, L501.9985, L509.1000 ####[facility] [address] [place], [address] Bilirubin [Mass/Vol] 0.30 mg/dL Normal 0.20-1.00 [facility] Comment on above: Result Comment: For patients on eltrombopag therapy, use of Dimension Agra TBIL is not recommended. Performed By: #### L 500.4050, L501.9985, L509.1000 ####[facility] [address] [place], [address] BUN/CRE 39.7 RATIO High 10-20 [facility] Comment on above: Performed By: #### L 500.4050, L501.9985, L509.1000 ####[facility] [address] [place], [address] CA,Total 7.7 mg/dL Low 8.5-10.1 [facility] Comment on above: Performed By: #### L 500.4050, L501.9985, L509.1000 ####[facility] [address] [place], [address] Chloride [Moles/Vol] 104 mmol/L Normal 98-107 [facility] Comment on above: Performed By: #### L 500.4050, L501.9985, L509.1000 ####[facility] [address] [place], [address] CO2 [Moles/Vol] 25.0 mmol/L Normal 21.0-32.0 [facility] Comment on above: Performed By: #### L 500.4050, L501.9985, L509.1000 ####[facility] [address] [place], [address] Creatinine [Mass/Vol] 1.21 mg/dL High 0.55-1.02 [facility] Comment on above: Result Comment: The validity of the calculated GFR GFRAA in patients over 70 years has not been determined. Clinical correlation is essential. Performed By: #### L 500.4050, L501.9985, L509.1000 ####[facility] [address] [place], [address] EST GFR - AA 55 mL/min Low >60 [facility] Comment on above: Result Comment: Afri can Chilean GFR Calc Performed By: #### L 500.4050, L501.9985, L509.1000 ####[facility] [address] [place], [address] GAP 7 Normal 5-15 [facility] Comment on above: Performed By: #### L 500.4050, L501.9985, L509.1000 ####[facility] [address] [place], [address] GFR/1.73 sq M.predicted among non-blacks MDRD (S/P/Bld) [Vol rate/Area] 46 mL/min/{1.73_m2} Low >60 [facility] Comment on above: Result Comment: Non- GFR Calc Performed By: #### L 500.4050, L501.9985, L509.1000 ####[facility] [address] [place], [address] Globulin (S) [Mass/Vol] 2.9 g/dL Normal 2.2-4.2 [facility] Comment on above: Performed By: #### L 500.4050, L501.9985, L509.1000 ####[facility] [address] [place], [address] Glucose [Mass/Vol] 87 mg/dL Normal 74-106 [facility] Comment on above: Performed By: #### L 500.4050, L501.9985, L509.1000 ####[facility] [address] [place], [address] Potassium [Moles/Vol] 3.5 mmol/L Normal 3.5-5.1 [facility] Comment on above: Performed By: #### L 500.4050, L501.9985, L509.1000 ####[facility] [address] [place], [address] Sodium [Moles/Vol] 136 mmol/L Normal 136-145 [facility] Comment on above: Performed By: #### L 500.4050, L501.9985, L509.1000 ####[facility] [address] [place], [address] T PROT 5.1 g/dL Low 6.4-8.2 [facility] Comment on above: Performed By: #### L 500.4050, L501.9985, L509.1000 ####[facility] [address] [place], [address] Urea nitrogen [Mass/Vol] 48 mg/dL High 7-18 [facility] Comment on above: Performed By: #### L 500.4050, L501.9985, L509.1000 ####[facility] [address] [place], [address] Hemoglobin A1con 04-26-2024 HbA1c (Bld) [Mass fraction] 5.4 % Normal 3.8-5.6 [facility] Comment on above: Result Comment: Norm al < 5.7 % Prediabetic 5.7 - 6.4 % Diabetic >or= 6.5 % Please note range changes. Performed By: #### L 500.4050, L501.9985, L509.1000 ####[facility] [address] [place], [address] PTHINon 04-26-2024 PTH 131.8 pg/mL High 18.4-80.1 [facility] Comment on above: Performed By: #### L 500.4050, L501.9985, L509.1000 ####[facility] [address] [place], [address] Urine Cultureon 04-26-2024 [facility] RANDOM URINE Klebsiella pneumoniae sp pneum [place] Count >100,000 Klebsiella pneumoniae sp pneum: REACTION [...] Pip+Tazo Islt ALAN <=4 S Tobramycin Islt ALAN <=1 S TMP SMX Islt ALAN <=20 S Normal [facility] Comment on above: Performed By: #### M 100.2200 ####[facility] [address] [place], [address] 12 Lead EKGon 04-24-2024 12 Lead EKG [facility] Cardiovascular Services [address] [facility] [place] [address] 12 Lead EKG 04/24/24 1030 MR#: [id number] Acct: [id number] Name: MADELYN LOVE Rep #: [id number] : 1945 78 From: Alma Wallace MD [...] atrial complexes Otherwise normal ECG Confirmed by Amla Wallace ([id number]), electronic news gathering editor ARLETH DIXON ([id number]) on 04/27/2024 10:43:59 AM Referred By: Confirmed By: Alma Walalce 04/27/24 1044 Date Alma Wallace MD CC: Dr. Bartolome Jimenez MD; Dr. Hugo Julio MD Signed Normal [facility] Basic Metabolic Profile (BMP )on 04-24-2024 BUN/CRE 34.1 RATIO High 03-21 [facility] Comment on above: Order Comment: 'TROP ' Serial specimen #1, #2 or #3: 1 Performed By: #### L 500.2500, L501.4020, L100.0100 ####[facility] [address] [place], [address] CA,Total 8.0 mg/dL Low 8.5-10.1 [facility] Comment on above: Order Comment: 'TROP ' Serial specimen #1, #2 or #3: 1 Performed By: #### L 500.2500, L501.4020, L100.0100 ####[facility] [address] [place], [address] Chloride [Moles/Vol] 102 mmol/L Normal 98-107 [facility] Comment on above: Order Comment: 'TROP ' Serial specimen #1, #2 or #3: 1 Performed By: #### L 500.2500, L501.4020, L100.0100 ####[facility] [address] [place], [address] CO2 [Moles/Vol] 29.0 mmol/L Normal 21.0-32.0 [facility] Comment on above: Order Comment: 'TROP ' Serial specimen #1, #2 or #3: 1 Performed By: #### L 500.2500, L501.4020, L100.0100 ####[facility] [address] [place], [address] Creatinine [Mass/Vol] 1.67 mg/dL High 0.55-1.02 [facility] Comment on above: Order Comment: 'TROP ' Serial specimen #1, #2 or #3: 1 Result Comment: The validity of the calculated GFR GFRAA in patients over 70 years has not been determined. Clinical correlation is essential. Performed By: #### L 500.2500, L501.4020, L100.0100 ####[facility] [address] [place], [address] ECRCL 24.41 ml/min Normal [facility] Comment on above: Order Comment: 'TROP ' Serial specimen #1, #2 or #3: 1 Performed By: #### L 500.2500, L501.4020, L100.0100 ####[facility] [address] [place], [address] EST GFR - AA 38 mL/min Low >60 [facility] Comment on above: Order Comment: 'TROP ' Serial specimen #1, #2 or #3: 1 Result Comment: Afri can Chilean GFR Calc Performed By: #### L 500.2500, L501.4020, L100.0100 ####[facility] [address] [place], [address] GAP 8 Normal 5-15 [facility] Comment on above: Order Comment: 'TROP ' Serial specimen #1, #2 or #3: 1 Performed By: #### L 500.2500, L501.4020, L100.0100 ####[facility] [address] [place], [address] GFR/1.73 sq M.predicted among non-blacks MDRD (S/P/Bld) [Vol rate/Area] 32 mL/min/{1.73_m2} Low >60 [facility] Comment on above: Order Comment: 'TROP ' Serial specimen #1, #2 or #3: 1 Result Comment: Non- GFR Calc Performed By: #### L 500.2500, L501.4020, L100.0100 ####[facility] [address] [place], [address] Glucose [Mass/Vol] 165 mg/dL High 74-106 [facility] Comment on above: Order Comment: 'TROP ' Serial specimen #1, #2 or #3: 1 Result Comment: Fast ing Glucose result greater than or equal to 126 mg/dL suggests DIABETES MELLITUS per A.D.A. criteria. Performed By: #### L 500.2500, L501.4020, L100.0100 ####[facility] [address] [place], [address] Potassium [Moles/Vol] 3.9 mmol/L Normal 3.5-5.1 [facility] Comment on above: Order Comment: 'TROP ' Serial specimen #1, #2 or #3: 1 Performed By: #### L 500.2500, L501.4020, L100.0100 ####[facility] [address] [place], [address] Sodium [Moles/Vol] 139 mmol/L Normal 136-145 [facility] Comment on above: Order Comment: 'TROP ' Serial specimen #1, #2 or #3: 1 Performed By: #### L 500.2500, L501.4020, L100.0100 ####[facility] [address] [place], [address] Urea nitrogen [Mass/Vol] 57 mg/dL High 7-18 [facility] Comment on above: Order Comment: 'TROP ' Serial specimen #1, #2 or #3: 1 Performed By: #### L 500.2500, L501.4020, L100.0100 ####[facility] [address] [place], [address] CBC W/Diff, Automatedon 04-03 Anisocytosis Ql (Bld) 1+ Normal [facility] Comment on above: Performed By: #### L 500.2500, L501.4020, L100.0100 ####[facility] [address] [place], [address] Chest PA and Lateralon 04-24 Chest PA and Lateral [facility] Imaging Services [address] [place] [address] Chest PA and Lateral MR#: [id number] Acct: [id number] Name: MADELYN OLVE Rep #: [id number] : 1945 F 78 From: Beck Chin MD PCP: Dr. Hugo Julio MD Status: REG ER Study: Chest PA and Lateral Date of Exam: 04/24/24 Exam# [id number] Ordering Dr: Bartolome Jimenez MD [id number] EXAM: XR CHEST, 2 VIEWS CLINICAL INDICATION: [...] Bartolome Jimenez MD; Dr. Hugo Julio MD [employer]: Signed Normal [facility] Emergency Department Summary on 04-24-2024 Emergency Department Summary [facility] Medical Records Department [address] [place] [address] Emergency Department Summary 04/24/24 MR#: [id number] Acct: [id number] Name: MADELYN LOVE Rep #: [id number] : 1945 78 From: Bartolome Jimenez MD PCP: Dr. Hugo Julio MD Status:[facility] ER Location: ED ADDENDUM by Dr. Bartolome [...] or chills. No palpitations or chest discomfort. [facility] Medical History Urge incontinence of [...] denosumab 60 mg/mL subcutaneous 60 mg subcut [id number] 10/31/22 Unknown History syringe (Prolia) mirabegron 25 [...] #60 04/24/24 (more content not included)... Normal [facility] L501.4020on 04-24-2024 TROPONIN-I HS 6 pg/mL Normal 3.0-54.0 [facility] Comment on above: Order Comment: 'TROP ' Serial specimen #1, #2 or #3: 1 Result Comment: Shellie jones Note: New Test Units and Gender Specific Reference Ranges. For more information see Policy Stat Procedure Agra High Sensitivity Troponin (TNIH) and attachments. Performed By: #### L 500.2500, L501.4020, L100.0100 ####[facility] [address] [place], [address] Lactic Acidon 04-24-2024 Lactate [Moles/Vol] 1.9 mmol/L Normal 0.4-1.9 [facility] Comment on above: Order Comment: Y Performed By: #### L 503.6005 ####[facility] [address] [place], [address] Urinalysis, Completeon 04-24 BACTERIA 2+ /hpf Normal None Seen [facility] Comment on above: Order Comment: CLEAN CATCH Performed By: #### L 502.0250, L500.3600 #### [facility] Laboratory [address] [place], [address] EPI,SQUAMOUS 0-5 SEEN Normal 5-10 [facility] Comment on above: Order Comment: CLEAN CATCH Performed By: #### L 502.0250, L500.3600 #### [facility] [address] [place], [address] RBC 0-5 SEEN Normal 0-5 [facility] Comment on above: Order Comment: CLEAN CATCH Performed By: #### L 502.0250, L500.3600 #### [facility] [address] [place], [address] WBC 0-5 SEEN Normal 0-5 [facility] Comment on above: Order Comment: CLEAN CATCH Performed By: #### L 502.0250, L500.3600 #### [facility] [address] [place], [address] Mucus Ql (Urine sed) 0 SEEN Normal [facility] Comment on above: Order Comment: CLEAN CATCH Performed By: #### L 502.0250, L500.3600 #### [facility] [address] [place], [address] Basic Metabolic Profile (BMP )on 04-09-2024 BUN/CRE 41.4 RATIO High 10-20 [facility] Comment on above: Order Comment: Order Date: 04/09/24Order Info: 666-06 - BMPOrder Info: [id number] - MG Performed By: #### L 500.2500, L501.5200 ####[facility] [address] [place], [address] CA,Total 8.1 mg/dL Low 8.5-10.1 [facility] Comment on above: Order Comment: Order Date: 04/09/24Order Info: 666-06 - BMPOrder Info: [id number] - MG Performed By: #### L 500.2500, L501.5200 ####[facility] [address] [place], [address] Chloride [Moles/Vol] 110 mmol/L High 98-107 [facility] Comment on above: Order Comment: Order Date: 04/09/24Order Info: 666-06 - BMPOrder Info: [id number] - MG Performed By: #### L 500.2500, L501.5200 ####[facility] [address] [place], [address] CO2 [Moles/Vol] 22.0 mmol/L Normal 21.0-32.0 [facility] Comment on above: Order Comment: Order Date: 04/09/24Order Info: 666-06 - BMPOrder Info: [id number] - MG Performed By: #### L 500.2500, L501.5200 ####[facility] [address] [place], [address] Creatinine [Mass/Vol] 0.89 mg/dL Normal 0.55-1.02 [facility] Comment on above: Order Comment: Order Date: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 Performed By: #### L [id number] ####Clinical Nurse Occupational Medicine: ELISSA HARRISON ([id number])[facility])[address] [place] [address] MCV (RBC) [Entitic vol] 93.9 fL Normal 77.0-99.0 S [facility] Comment on above: Performed By: #### L [id number] ####Clinical Nurse Occupational Medicine: ELISSA HARRISON ([id number])[facility])[address] [place] [address] Monocytes (Bld) [#/Vol] 0.7 10*3/uL Normal 0.0-0.9 [facility] Comment on above: Performed By: #### L [id number] ####Clinical Nurse Occupational Medicine: ELISSA HARRISON ([id number])[facility])[address] [place] [address] Monocytes/100 WBC (Bld) 10.4 % Normal 5.0-13.0 S [facility] Comment on above: Performed By: #### L [id number] ####Clinical Nurse Occupational Medicine: ELISSA HARRISON ([id number])[facility])[address] [place] [address] NEUTROPHILS ABSOLUTE 4.3 10*3/uL Normal 1.8-7.5 [facility] Comment on above: Performed By: #### L [id number] ####Clinical Nurse Occupational Medicine: ELISSA HARRISON ([id number])[facility])[address] [place] [address] Neutrophils/100 WBC (Bld) 64.1 % Normal 38.0-82.0 [facility] Comment on above: Performed By: #### L [id number] ####Clinical Nurse Occupational Medicine: ELISSA HARRISON ([id number])[facility] ([facility])[address] [place] [address] NRBC 0.0 /100 WBCs Normal 0.0-2.0 [facility] Comment on above: Performed By: #### L [id number] ####Clinical Nurse Occupational Medicine: ELISSA HARRISON ([id number])[facility] ([facility])[address] [place] [address] Platelet mean volume (Bld) [Entitic vol] 8.5 fL Low 9.0-12.7 [facility] Comment on above: Performed By: #### L [id number] ####Clinical Nurse Occupational Medicine: ELISSA HARRISON ([id number])[facility] ([facility])[address] [place] [address] Platelets (Bld) [#/Vol] 276 10*3/uL Normal 140-440 [facility] Comment on above: Performed By: #### L [id number] ####Clinical Nurse Occupational Medicine: ELISSA HARRISON ([id number])[facility] ([facility])[address] [place] [address] RBC (Bld) [#/Vol] 3.43 10*6/uL Low 3.80-5.20 [facility] Comment on above: Performed By: #### L [id number] ####Clinical Nurse Occupational Medicine: ELISSA HARRISON ([id number])[facility] ([facility])[address] [place] [address] WBC (Bld) [#/Vol] 6.8 10*3/uL Normal 3.6-10.7 [facility] Comment on above: Performed By: #### L [id number] ####Clinical Nurse Occupational Medicine: ELISSA HARRISON ([id number])[facility] [facility])[address] [place] [address] CORTISOLon 01-23-2024 CORTISOL 10.6 ug/dL Normal [facility] Comment on above: Result Comment: ORDE R COMMENTS: Before 10am 4.5-22.7 ug/dL After 5pm 1.7-14.1 ug/dL Performed By: #### L AB61 ####Clinical Nurse Occupational Medicine: ELISSA HARRISON ([phone])[address] Consulton 01-23-2024 Carl Love is a 78 y.o. female Chief [...] See my note 01/23/2024 for assessment, plan. [facility] Consult Madelyn Love is a 78 [...] sodium as low as 107 while in [place]. She is presently experiencing no significant mental [...] classified 09/24/2007 Psychosis (HCC) 01/04/2021 Secondary hyperparathyroidism ([facility]) 07/12/2021 Skin lesion 11/07/2022 Stage 2 chronic kidney disease 05/14/2017 Steatorrhea 11/07/2022 Thrombosed external hemorrhoids 11/07/2022 Type 2 diabetes mellitus without complication, without long-term current use of insulin ([facility]/HCC) (HCC) 07/12/2021 Urge incontinence 01/21/2020 Urinary [...] TempSrc: Tem (more content not included)... Normal [facility] - Chemistry and C hemistry - challengeon 01-23-2024 Glucose [Mass/Vol] 196 mg/dL High 70 - 100 mg/dL [facility] [employer] Glucose [Mass/Vol] 99 mg/dL 70 - 100 mg/dL [facility] Glucose [Mass/Vol] 83 mg/dL 70 - 100 mg/dL [facility] Sodium (24H U) [Mass/Vol] 50 mmol/L 30 - 90 mmol/L [facility] Glucose [Mass/Vol] 156 mg/dL High 70 - 100 mg/dL [facility] Cortisol [Mass/Vol] 10.6 ug/dL [facility] Laboratory - Chemistry and C hemistry - challengeOrdered By: Niraj Bonds on 01-23-2024 Osmolality [Osmolality] 282 mosm/kg [facility] Laboratory - Urinalysison Protein (U) [Mass/Vol] 21 mg/dL High 0 - 1 2 mg/dL [facility] No Panel Informationon 01-22 Interpretation and review of laboratory results Abnormal [facility] Performed by: [facility], [address] [place] [address] CLIA ID: [id number] [facility] Interpretation and review of laboratory results Normal [facility] Performed by: [facility], [address] [place] [address] CLIA ID: [id number] [facility] Interpretation and review of laboratory results Normal [facility] Performed by: [facility], [address] [place] [address] CLIA ID: [id number] [facility] Interpretation and review of laboratory results Normal [facility] Interpretation and review of laboratory results Abnormal [facility] Interpretation and review of laboratory results Abnormal [facility] Performed by: [facility], [address] [place] [address] CLIA ID: [id number] [facility] Before 10am 4.5-22.7 ug/dL After 5pm 1.7-14.1 ug/dL [facility] No Panel InformationOrdered By: Chantell Mario on 01-23-2024 Interpretation and review of laboratory results Normal [facility] OSMOLALITY, URINE 425 [facility] No Panel InformationOrdered By: Niraj Bonds on 01-23-2024 Interpretation and review of laboratory results Normal [facility] OSMOLALITY, SERUMon 01-23-20 OSMOLALITY, SERUM 282 mOsm/kg Normal 280-300 [facility] Comment on above: Performed By: #### L [id number] ####Clinical Nurse Occupational Medicine: ELISSA HARRISON ([phone])[facility])[address] [place] [address] OSMOLALITY, URINEon 01-23-20 24 OSMOLALITY, URINE 425 mOsm/kg Normal 300-1000 [facility] Comment on above: Order Comment: Can w e add onto the urine already obtained for the urinalysis? Performed By: #### L AB439, [id number], [id number] ####Clinical Nurse Occupational Medicine: ELISSA HARRISON ([phone])[facility])[address] [place] [address] PROTEIN, URINE, RANDOMon Protein (U) [Mass/Vol] 21 mg/dL High 0-12 [facility] Comment on above: Performed By: #### L AB439, [id number], [id number] ####Clinical Nurse Occupational Medicine: ELISSA HARRISON ([id number])[facility])[address] [place] [address] SODIUM, URINE, RANDOMon 01-01 Sodium (U) [Moles/Vol] 50 mmol/L Normal 30-90 [facility] Comment on above: Order Comment: Can w e add onto urine use for urinalysis. Performed By: #### L AB439, [id number], [id number] ####Clinical Nurse Occupational Medicine: ELISSA HARRISON ([phone])[address] XR CHEST 1 VIEWon 01-23-2024 XR CHEST 1 VIEW Patient Name: MADELYN CABRERA : 1945 Exam [...] Electronically Signed Date/Time: 01/23/2024 7:[address] [facility] XR Chest Single viewon 01-22 Minimal blunting of left costophrenic angle may represent small pleural effusion or pleural thickening. Report Dictated on Electronically Signed By: Alma Lee MD Electronically Signed Date/Time: 01/23/2024 7:06 PM EDT [facility] Patient Name: MADELYN CABRERA : 1945 Exam [...] spine and shoulders. No acute osseous findings. [facility] Alma Lee MD - 01/23/2024 Patient Name: MADELYN LOVE : 1945 Exam Date/Time: 01/23/2024 14:49 Procedure: [...] Electronically Signed Date/Time: 01/23/2024 7:06 PM EDT [facility] Radiology Study observation (narrative) [facility] Chest Single viewOrdered By: Alma Lee on 01-23-2024 [facility] [employer] Work Phone: BASIC METABOLIC PANELon 01-01 Anion gap [Moles/Vol] 7 mmol/L Normal 3-13 [facility] Comment on above: Performed By: #### L AB15 ####Clinical Nurse Occupational Medicine: ELISSA HARRISON ([id number])[facility] ([facility])[address] [place] [address] Calcium [Mass/Vol] 7.7 mg/dL Low 8.4-10.4 [facility] Comment on above: Performed By: #### L AB15 ####Clinical Nurse Occupational Medicine: ELISSA HARRISON ([phone])[facility] ([facility])[address] [place] [address] [place] Chloride [Moles/Vol] 96 mmol/L Low 98-107 [facility] Comment on above: Performed By: #### L AB15 ####Clinical Nurse Occupational Medicine: ELISSA HARRISON ([phone])[facility] ([facility])[address] [place] [address] [place] CO2 [Moles/Vol] 23 mmol/L Normal 22-30 [facility] Comment on above: Performed By: #### L AB15 ####Clinical Nurse Occupational Medicine: ELISSA HARRISON ([phone])[facility] ([facility])[address] [place] [address] Creatinine [Mass/Vol] 0.82 mg/dL Normal 0.52-1.04 [facility] Comment on above: Performed By: #### L AB15 ####Clinical Nurse Occupational Medicine: ELISSA HARRISON ([phone])[facility])[address] [place] [address] GLOMERULAR FILTRATION RATE ML/MIN/1.73 SQ M.PREDICTED 73.8 mL/min/1.73m*2 Normal >60.0 [facility] Comment on above: Result Comment: Calc ulation based on the Chronic Kidney Disease Epidemiology Collaboration (CKD-EPI) equation refit without adjustment for race Performed By: #### L AB15 ####Clinical Nurse Occupational Medicine: ELISSA HARRISON ([id number])[facility] ([facility])[address] [place] [address] Glucose [Mass/Vol] 130 mg/dL High 70-100 [facility] Comment on above: Performed By: #### L AB15 ####Clinical Nurse Occupational Medicine: ELISSA HARRISON ([id number])[facility] ([facility])[address] [place] [address] Potassium [Moles/Vol] 4.7 mmol/L Normal 3.5-5.1 [facility] Comment on above: Performed By: #### L AB15 ####Clinical Nurse Occupational Medicine: ELISSA HARRISON ([id number])[facility] ([facility])[address] [place] [address] Sodium [Moles/Vol] 126 mmol/L Low 135-145 [facility] Comment on above: Performed By: #### L AB15 ####Clinical Nurse Occupational Medicine: ELISSA HARRISON ([phone])[facility])[address] [place] [address] [place] Urea nitrogen [Mass/Vol] 25 mg/dL High 7-17 [facility] Comment on above: Performed By: #### L AB15 ####Clinical Nurse Occupational Medicine: ELISSA HARRISON ([id number])[facility])[address] [place] [address] Anion gap [Moles/Vol] 8 mmol/L Normal 3-13 [facility] Comment on above: Performed By: #### L AB113, PHO262, LAB15, UGC283, LAB20 ####Clinical Nurse Occupational Medicine: ELISSA HARRISON ([id number])[facility])[address] [place] [address] Calcium [Mass/Vol] 8.2 mg/dL Low 8.4-10.4 [facility] Comment on above: Performed By: #### L AB113, [id number], LAB15, VOI036, LAB20 ####Clinical Nurse Occupational Medicine: ELISSA HARRISON ([id number])[facility])[address] [place] [address] Chloride [Moles/Vol] 91 mmol/L Low 98-107 [facility] Comment on above: Performed By: #### L AB113, IWE070, LAB15, DND483, LAB20 ####Clinical Nurse Occupational Medicine: ELISSA HARRISON ([id number])[facility])[address] [place] [address] CO2 [Moles/Vol] 25 mmol/L Normal 22-30 [facility] Comment on above: Performed By: #### L AB113, [id number], LAB15, MQZ377, LAB20 ####Clinical Nurse Occupational Medicine: ELISSA HARRISON ([id number])[facility])[address] [place] [address] Creatinine [Mass/Vol] 0.79 mg/dL Normal 0.52-1.04 [facility] Comment on above: Performed By: #### L AB113, MOW365, LAB15, LZB740, LAB20 ####Clinical Nurse Occupational Medicine: ELISSA HARRISON ([id number])[facility])[address] [place] [address] GLOMERULAR FILTRATION RATE ML/MIN/1.73 SQ M.PREDICTED 77.2 mL/min/1.73m*2 Normal >60.0 [facility] Comment on above: Result Comment: Calc ulation based on the Chronic Kidney Disease Epidemiology Collaboration (CKD-EPI) equation refit without adjustment for race Performed By: #### L AB113, TEV162, LAB15, KVH275, LAB20 ####Clinical Nurse Occupational Medicine: ELISSA HARRISON ([id number])[facility] ([facility])[address] [place] [address] [place] Glucose [Mass/Vol] 115 mg/dL High 70-100 [facility] Comment on above: Performed By: #### L AB113, CGY265, LAB15, YMZ341, LAB20 ####Clinical Nurse Occupational Medicine: ELISSA HARRISON ([id number])[facility] ([facility])[address] [place] [address] Potassium [Moles/Vol] 4.2 mmol/L Normal 3.5-5.1 [facility] Comment on above: Performed By: #### L AB113, ERD810, LAB15, ITN757, LAB20 ####Clinical Nurse Occupational Medicine: ELISSA HARRISON ([id number])[facility] ([facility])[address] [place] [address] Sodium [Moles/Vol] 124 mmol/L Low 135-145 [facility] Comment on above: Performed By: #### L AB113, [id number], LAB15, XSP714, LAB20 ####Clinical Nurse Occupational Medicine: ELISSA HARRISON ([phone])[facility] ([facility])[address] [place] [address] [place] Urea nitrogen [Mass/Vol] 21 mg/dL High 7-17 [facility] Comment on above: Performed By: #### L AB113, QPZ103, LAB15, NAC368, LAB20 ####Clinical Nurse Occupational Medicine: ELISSA HARRISON ([phone])[facility] ([facility])[address] [place] [address] Basic metabolic 1998 panelon 01-22-2024 Anion gap [Moles/Vol] 7 mmol/L 3 - 13 mmol/L [facility] Calcium [Mass/Vol] 7.7 mg/dL Low 8.4 - 10. 4 mg/dL [facility] Chloride [Moles/Vol] 96 mmol/L Low 98 - 10 7 mmol/L [facility] CO2 [Moles/Vol] 23 mmol/L 22 - 30 mmol/L [facility] Creatinine [Mass/Vol] 0.82 mg/dL 0.52 - 1.04 mg/dL [facility] GFR/1.73 sq M.predicted (S/P/Bld) [Vol rate/Area] 73.8 mL/min - PINF [facility] Comment on above: Calculation based on the Chronic Kidney Disease Epidemiology Collaboration (CKD-EPI) equation refit without adjustment for race Glucose [Mass/Vol] 130 mg/dL High 70 - 100 mg/dL [facility] Interpretation and review of laboratory results Abnormal [facility] Potassium [Moles/Vol] 4.7 mmol/L 3.5 - 5.1 mmol/L [facility] Sodium [Moles/Vol] 126 mmol/L Low 135 - 145 mmol/L [facility] Urea nitrogen [Mass/Vol] 25 mg/dL High 7 - 17 mg/dL [facility] Anion gap [Moles/Vol] 8 mmol/L 3 - 13 mmol/L [facility] Calcium [Mass/Vol] 8.2 mg/dL Low 8.4 - 10. 4 mg/dL [facility] Chloride [Moles/Vol] 91 mmol/L Low 98 - 10 7 mmol/L [facility] CO2 [Moles/Vol] 25 mmol/L 22 - 30 mmol/L [facility] Creatinine [Mass/Vol] 0.79 mg/dL 0.52 - 1.04 mg/dL [facility] GFR/1.73 sq M.predicted (S/P/Bld) [Vol rate/Area] 77.2 [facility] Comment on above: Calculation based on the Chronic Kidney Disease Epidemiology Collaboration (CKD-EPI) equation refit without adjustment for race Glucose [Mass/Vol] 115 mg/dL High 70 - 100 mg/dL [facility] Interpretation and review of laboratory results Abnormal [facility] Potassium [Moles/Vol] 4.2 mmol/L 3.5 - 5.1 mmol/L [facility] Sodium [Moles/Vol] 124 mmol/L Low 135 - 145 mmol/L [facility] Urea nitrogen [Mass/Vol] 21 mg/dL High 7 - 17 mg/dL [facility] CALCIUM, IONIZEDon 4 CALCIUM IONIZED 4.20 mg/dL Low 4.30-5.20 [facility] Comment on above: Performed By: #### L AB54 ####Clinical Nurse Occupational Medicine: ELISSA HARRISON ([id number])[facility] ([address] PH, IONIZED CALCIUM 7.35 Normal 7.31-7.46 [facility] Comment on above: Performed By: #### L AB54 ####Clinical Nurse Occupational Medicine: ELISSA HARRISON ([id number])[facility])[address] [place] [address] CBC (HEMOGRAM)on 01-22-2024 Erythrocyte distribution width (RBC) [Ratio] 14.1 % Normal 11.5-15.0 [facility] Comment on above: Performed By: #### L AB294 ####Clinical Nurse Occupational Medicine: ELISSA HARRISON ([id number])[facility])[address] [place] [address] Hematocrit (Bld) [Volume fraction] 33.6 % Low 35.0-47.0 [facility] Comment on above: Performed By: #### L AB294 ####Clinical Nurse Occupational Medicine: ELISSA HARRISON ([id number])[address] Hemoglobin (Bld) [Mass/Vol] 10.9 g/dL Low 11.7-16.0 [facility] Comment on above: Performed By: #### L AB294 ####Clinical Nurse Occupational Medicine: ELISSA HARRISON ([id number])[facility])[address] [place] [address] MCH (RBC) [Entitic mass] 30.0 pg Normal 26.0-34.0 [facility] Comment on above: Performed By: #### L AB294 ####Clinical Nurse Occupational Medicine: ELISSA HARRISON ([id number])[address] MCHC 32.4 % Normal 30.5-36.0 [facility] Comment on above: Performed By: #### L AB294 ####Clinical Nurse Occupational Medicine: ELISSA HARRISON ([id number])[facility])[address] [place] [address] MCV (RBC) [Entitic vol] 92.6 fL Normal 77.0-99.0 S [facility] Comment on above: Performed By: #### L AB294 ####Clinical Nurse Occupational Medicine: ELISSA HARRISON ([id number])[facility])[address] [place] [address] Platelet mean volume (Bld) [Entitic vol] 8.5 fL Low 9.0-12.7 [facility] Comment on above: Performed By: #### L AB294 ####Clinical Nurse Occupational Medicine: ELISSA HARRISON ([id number])[facility] ([facility])[address] [place] [address] Platelets (Bld) [#/Vol] 289 10*3/uL Normal 140-440 [facility] Comment on above: Performed By: #### L AB294 ####Clinical Nurse Occupational Medicine: ELISSA HARRISON ([id number])[facility])[address] [place] [address] RBC (Bld) [#/Vol] 3.63 10*6/uL Low 3.80-5.20 [facility] Comment on above: Performed By: #### L AB294 ####Clinical Nurse Occupational Medicine: ELISSA HARRISON ([id number])[facility])[address] [place] [address] WBC (Bld) [#/Vol] 8.9 10*3/uL Normal 3.6-10.7 [facility] Comment on above: Performed By: #### L AB294 ####Clinical Nurse Occupational Medicine: ELISSA HARRISON ([id number])[facility])[address] [place] [address] CBC panel Auto (Bld)on 01-21 Erythrocyte distribution width (RBC) [Ratio] 14.1 % 11.5 - 15.0 % [facility] Hematocrit (Bld) [Volume fraction] 33.6 % Low 35.0 - 47.0 % [facility] Hemoglobin (Bld) [Mass/Vol] 10.9 g/dL Low 11.7 - 16.0 g/dL [facility] Interpretation and review of laboratory results Abnormal [facility] MCH (RBC) [Entitic mass] 30.0 pg 26.0 - 34.0 pg [facility] MCHC (RBC) [Mass/Vol] 32.4 % 30.5 - 36.0 % [facility] MCV (RBC) [Entitic vol] 92.6 fL 77.0 - 99.0 fL [facility] Platelet mean volume (Bld) [Entitic vol] 8.5 fL Low 9.0 - 12.7 fL [facility] Platelets (Bld) [#/Vol] 289 10*3/uL 140 - 440 10*3/uL [facility] RBC (Bld) [#/Vol] 3.63 10*6/uL Low 3.80 - 5.20 10*6/uL [facility] WBC (Bld) [#/Vol] 8.9 10*3/uL 3.6 - 10.7 10*3/uL [facility] COMPLETE URINALYSISon 2023 BACTERIA (#/HPF) IN URINE Many Abnormal Negative [facility] Comment on above: Performed By: #### L [id number] ####Clinical Nurse Occupational Medicine: ELISSA HARRISON ([phone])[facility] ([facility])[address] [place] [address] BILIRUBIN, TOTAL PRESENCE IN URINE Negative Normal Negative [facility] Comment on above: Performed By: #### L AB347 ####Clinical Nurse Occupational Medicine: ELISSA HARRISON ([id number])[facility] ([facility])[address] [place] [address] Clarity (U) Clear Normal Clear [facility] Comment on above: Performed By: #### L AB347 ####Clinical Nurse Occupational Medicine: ELISSA HARRISON ([id number])[facility] ([facility])[address] [place] [address] [place] Color (U) Colorless Normal Lt. Yellow [facility] Comment on above: Performed By: #### L AB347 ####Clinical Nurse Occupational Medicine: ELISSA HARRISON ([id number])[facility])[address] [place] [address] [place] Glucose (U) [Mass/Vol] 500 mg/dL Abnormal Marina l (<70) [facility] Comment on above: Performed By: #### L AB347 ####Clinical Nurse Occupational Medicine: ELISSA HARRISON ([id number])[facility])[address] [place] [address] HEMOGLOBIN PRESENCE IN URINE Negative Normal Negative [facility] Comment on above: Performed By: #### L AB347 ####Clinical Nurse Occupational Medicine: ELISSA HARRISON ([phone])[facility])[address] [place] [address] HYALINE CASTS (#/LPF) IN URINE SEDIMENT BY MICROSCOPY Negative Normal Negative [facility] Comment on above: Performed By: #### L AB347 ####Clinical Nurse Occupational Medicine: ELISSA HARRISON ([id number])[facility])[address] [place] [address] Ketones Ql (U) Negative Normal Negative [facility] Comment on above: Performed By: #### L AB347 ####Clinical Nurse Occupational Medicine: ELISSA HARRISON ([id number])[facility] ([facility])[address] [place] [address] LEUKOCYTE ESTERASE PRESENCE IN URINE BY TEST STRIP 250 Marquez/uL Abnormal Negative [facility] Comment on above: Performed By: #### L AB347 ####Clinical Nurse Occupational Medicine: ELISSA HARRISON ([id number])[facility])[address] [place] [address] NITRITE PRESENCE IN URINE Positive Abnormal Negative [facility] Comment on above: Performed By: #### L AB347 ####Clinical Nurse Occupational Medicine: ELISSA HARRISON ([id number])[facility])[address] [place] [address] pH (U) 5.5 [pH] Normal 5.0-8.0 [facility] Comment on above: Performed By: #### L [id number] ####Clinical Nurse Occupational Medicine: ELISSA HARRISON ([id number])[facility])[address] [place] [address] Protein (U) [Mass/Vol] Negative Normal Negative [facility] Comment on above: Performed By: #### L [id number] ####Clinical Nurse Occupational Medicine: ELISSA HARRISON ([id number])[facility] ([facility])[address] [place] [address] RBC (#/HPF) IN URINE SEDIMENT 3-5 Abnormal 0-2 [facility] Comment on above: Performed By: #### L [id number] ####Clinical Nurse Occupational Medicine: ELISSA HARRISON ([id number])[facility] ([facility])[address] [place] [address] Specific gravity (U) [Rel density] 1.005 Normal 1.005-1.03 0 [facility] Comment on above: Performed By: #### L [id number] ####Clinical Nurse Occupational Medicine: ELISSA HARRISON ([id number])[facility])[address] [place] [address] SQUAMOUS EPITHELIAL CELLS (#/HPF) IN URINE SEDIMENT 0-2 Normal 3-5 [facility] Comment on above: Performed By: #### L [id number] ####Clinical Nurse Occupational Medicine: ELISSA HARRISON ([id number])[facility] ([facility])[address] [place] [address] UROBILINOGEN (MG/DL) IN URINE Normal Normal Normal (0-1) [facility] Comment on above: Performed By: #### L [id number] ####Clinical Nurse Occupational Medicine: ELISSA HARRISON ([id number])[facility] ([facility])[address] [place] [address] WBC (LEUKOCYTE) (#/HPF) IN URINE SEDIMENT 26-50 Abnormal 0-5 [facility] Comment on above: Performed By: #### L [id number] ####Clinical Nurse Occupational Medicine: ELISSA HARRISON ([id number])[facility] ([facility])[address] [place] [address] Calcium.ionized [Moles/Vol]O rdered By: Luly Drake on 01-22-2024 Calcium.ionized (Bld) [Moles/Vol] 4.20 mg/dL Low 4.30 - 5.20 mg/dL [facility] Interpretation and review of laboratory results Abnormal [facility] PH, IONIZED CALCIUM 7.35 7.31 - 7.46 [facility] Consulton 01-22-2024 Consult Nephrology Consult [place] Consult date: 01/22/24 2:13 PM Patient: Madelyn Love Room number: [id number] Date of Admit: 01/22/2024 LOS: 0 days Referring physician: Shivam Fitzgerald DO Outpatient Pocket Setter: Tiara Buck DO Reason for Consult hyponatremia [...] 65 - can check upcr - on UOPD0ppy and Kerendia #Suspected UTI on urinalysis - [...] Na 133. Upon d/w primary nephro from [place] (Dr Tiara Buck), (11/23) Na 136. Home [...] recs once labs back Stacie Smith MD [facility] ([facility]) Office phone: [phone] Office fax: [phone] Pager: [phone] 01/22/24 Greater than 60 min of time spent on reviewing primary/bilingual sales consultant notes/outpt records/cumulative labs/previous hosp, FTF time, [...] earlier t (more content not included)... Normal [facility] ED Nursing Noteon 01-22-2024 ED Nursing Note Medic at bedside to transport pt to 4N on air sampling and monitoring. Pt alert and stable, no signs of distress at this time Corinne Sarmiento RN 01/22/[address] [facility] ED Provider Noteon ED Provider Note EMERGENCY [...] of this encounter. History provided by: Patient translator interpreter used: No Madelyn Love is a 78 y.o. female [...] complication, without long-term current use of insulin ([facility]/HCC) (HCC) 07/12/2021 Urge incontinence 01/21/2020 Urinary [...] Use Sm (more content not included)... Normal [facility] ED Provider Note Emergency Department Encounter [facility] EMERGENCY DEPT Patient: Madelyn Love : [...] Ja De La Cruz MD Acute Care [facility] Ja De La Cruz MD 01/22/24 1135 Normal [facility] HEPATIC FUNCTION PANELon Albumin [Mass/Vol] 3.6 g/dL Normal 3.5-5.0 [facility] Comment on above: Performed By: #### L AB113, [id number], LAB15, LND137, LAB20 ####Clinical Nurse Occupational Medicine: ELISSA HARRISON ([phone])[facility])[address] [place] [address] ALP [Catalytic activity/Vol] 197 U/L High 38-126 [facility] Comment on above: Performed By: #### L AB113, [id number], LAB15, CAE166, LAB20 ####Clinical Nurse Occupational Medicine: ELISSA HARRISON ([phone])[facility])[address] [place] [address] ALT [Catalytic activity/Vol] 20 U/L Normal 0-34 [facility] Comment on above: Performed By: #### L AB113, [id number], LAB15, QIM043, LAB20 ####Clinical Nurse Occupational Medicine: ELISSA HARRISON ([phone])[facility])[address] [place] [address] AST [Catalytic activity/Vol] 28 U/L Normal 15-46 [facility] Comment on above: Performed By: #### L AB113, [id number], LAB15, FTF828, LAB20 ####Clinical Nurse Occupational Medicine: ELISSA HARRISON ([phone])[facility])[address] [place] [address] Bilirubin [Mass/Vol] 0.3 mg/dL Normal 0.2-1.3 [facility] Comment on above: Performed By: #### L AB113, [id number], LAB15, IBY386, LAB20 ####Clinical Nurse Occupational Medicine: ELISSA HARRISON ([phone])[facility])[address] [place] [address] Bilirubin.indirect [Mass/Vol] 0.0 mg/dL Normal 0.0-0.3 [facility] Comment on above: Performed By: #### L AB113, [id number], LAB15, [id number], LAB20 ####Clinical Nurse Occupational Medicine: ELISSA HARRISON ([phone])[facility])[address] [place] [address] Protein [Mass/Vol] 6.4 g/dL Normal 6.3-8.2 [facility] Comment on above: Performed By: #### L AB113, [id number], LAB15, [id number], LAB20 ####Clinical Nurse Occupational Medicine: ELISSA HARRISON ([phone])[facility] ([facility])[address] [place] [address] Hepatic function 2000 panelo n 01-22-2024 Albumin [Mass/Vol] 3.6 g/dL 3.5 - 5.0 g/dL [facility] ALP [Catalytic activity/Vol] 197 U/L High 38 - 126 U/L [facility] ALT [Catalytic activity/Vol] 20 U/L 0 - 34 U/L [facility] AST [Catalytic activity/Vol] 28 U/L 15 - 46 U/L [facility] Bilirubin [Mass/Vol] 0.3 mg/dL 0.2 - 1 .3 mg/dL [facility] Bilirubin.conjugated [Mass/Vol] 0.0 mg/dL 0.0 - 0.3 mg/dL [facility] Interpretation and review of laboratory results Abnormal [facility] Protein [Mass/Vol] 6.4 g/dL 6.3 - 8.2 g/dL [facility] IDNon 01-22-2024 IDN Problem: Pain - Adul [...] of patient condition declining or worsening Normal [facility] Laboratory - Chemistry and C hemistry - challengeon 01-22-2024 Glucose [Mass/Vol] 144 mg/dL High 70 - 100 mg/dL [facility] Magnesium [Mass/Vol] 2.2 mg/dL 1.6 - 2 .3 mg/dL [facility] TSH Qn 1.394 m[IU]/L [facility] Magnesium [Mass/Vol] 2.2 mg/dL 1.6 - 2 .3 mg/dL [facility] MAGNESIUMon 01-22-2024 Magnesium [Mass/Vol] 2.2 mg/dL Normal 1.6-2.3 [facility] Comment on above: Performed By: #### L AB19, [id number] ####Clinical Nurse Occupational Medicine: ELISSA HARRISON ([phone])[facility] ([facility])[address] [place] [address] Magnesium [Mass/Vol] 2.2 mg/dL Normal 1.6-2.3 [facility] Comment on above: Performed By: #### L AB113, [id number], LAB15, EED397, LAB20 ####Clinical Nurse Occupational Medicine: ELISSA HARRISON ([id number])[facility] ([facility])[address] [place] [address] [place] Magnesium [Mass/Vol]on 01-21 Interpretation and review of laboratory results Normal [facility] No Panel Informationon 01-21 Interpretation and review of laboratory results Abnormal [facility] Performed by: [facility], [address] [place] [address] CLIA ID: [id number] [facility] Interpretation and review of laboratory results Normal [facility] PHOSPHORUSon 01-22-2024 Phosphate [Mass/Vol] 4.3 mg/dL Normal 2.5-4.5 [facility] Comment on above: Performed By: #### L AB113, [id number], LAB15, [id number], LAB20 ####Clinical Nurse Occupational Medicine: ELISSA HARRISON ([id number])[facility] ([facility])[address] [place] [address] [place] Phosphate [Moles/Vol]on 01-01 Phosphate [Mass/Vol] 4.3 mg/dL 2.5 - 4 .5 mg/dL [facility] RENAL FUNCTION PANELon 01-21 Albumin [Mass/Vol] 3.5 g/dL Normal 3.5-5.0 [facility] Comment on above: Performed By: #### L AB19, [id number] ####Clinical Nurse Occupational Medicine: ELISSA HARRISON ([id number])[facility] ([facility])[address] [place] [address] Anion gap [Moles/Vol] 10 mmol/L Normal 3-13 [facility] Comment on above: Performed By: #### L AB19, [id number] ####Clinical Nurse Occupational Medicine: ELISSA HARRISON ([id number])[facility] ([facility])[address] [place] [address] [place] Calcium [Mass/Vol] 7.7 mg/dL Low 8.4-10.4 [facility] Comment on above: Performed By: #### L AB19, [id number] ####Clinical Nurse Occupational Medicine: ELISSA HARRISON ([id number])[facility] ([facility])[address] [place] [address] [place] Chloride [Moles/Vol] 94 mmol/L Low 98-107 [facility] Comment on above: Performed By: #### L AB19, [id number] ####Clinical Nurse Occupational Medicine: ELISSA HARRISON ([id number])[facility] ([facility])[address] [place] [address] CO2 [Moles/Vol] 20 mmol/L Low 22-30 [facility] Comment on above: Performed By: #### L AB19, [id number] ####Clinical Nurse Occupational Medicine: ELISSA HARRISON ([phone])[facility] ([facility])[address] [place] [address] Creatinine [Mass/Vol] 0.75 mg/dL Normal 0.52-1.04 [facility] Comment on above: Performed By: #### L AB19, [id number] ####Clinical Nurse Occupational Medicine: ELISSA HARRISON ([phone])[facility] ([facility])[address] [place] [address] [place] GLOMERULAR FILTRATION RATE ML/MIN/1.73 SQ M.PREDICTED 82.1 mL/min/1.73m*2 Normal >60.0 [facility] Comment on above: Result Comment: Calc ulation based on the Chronic Kidney Disease Epidemiology Collaboration (CKD-EPI) equation refit without adjustment for race Performed By: #### L AB19, [id number] ####Clinical Nurse Occupational Medicine: ELISSA HARRISON ([phone])[facility] ([facility])[address] [place] [address] [place] Glucose [Mass/Vol] 198 mg/dL High 70-100 [facility] Comment on above: Performed By: #### L AB19, [id number] ####Clinical Nurse Occupational Medicine: ELISSA HARRISON ([id number])[facility] ([facility])[address] [place] [address] Phosphate [Mass/Vol] 4.1 mg/dL Normal 2.5-4.5 [facility] Comment on above: Performed By: #### L AB19, [id number] ####Clinical Nurse Occupational Medicine: ELISSA HARRISON ([phone])[facility] ([facility])[address] [place] [address] Potassium [Moles/Vol] 4.0 mmol/L Normal 3.5-5.1 [facility] Comment on above: Performed By: #### L AB19, [id number] ####Clinical Nurse Occupational Medicine: ELISSA HARRISON ([id number])[facility] ([facility])[address] [place] [address] Sodium [Moles/Vol] 124 mmol/L Low 135-145 [facility] Comment on above: Performed By: #### L AB19, [id number] ####Clinical Nurse Occupational Medicine: ELISSA HARRISON ([id number])[facility] ([facility])[address] [place] [address] Urea nitrogen [Mass/Vol] 23 mg/dL High 7-17 [facility] Comment on above: Performed By: #### L AB19, [id number] ####Clinical Nurse Occupational Medicine: ELISSA HARRISON ([phone])[facility] ([facility])[address] [place] [address] Renal function 2000 panelon 01-22-2024 Albumin [Mass/Vol] 3.5 g/dL 3.5 - 5.0 g/dL [facility] Anion gap [Moles/Vol] 10 mmol/L 3 - 13 mmol/L [facility] Calcium [Mass/Vol] 7.7 mg/dL Low 8.4 - 10. 4 mg/dL [facility] Chloride [Moles/Vol] 94 mmol/L Low 98 - 10 7 mmol/L [facility] CO2 [Moles/Vol] 20 mmol/L Low 22 - 30 mmol/L [facility] Creatinine [Mass/Vol] 0.75 mg/dL 0.52 - 1.04 mg/dL [facility] GFR/1.73 sq M.predicted (S/P/Bld) [Vol rate/Area] 82.1 mL/min - PINF [facility] Comment on above: Calculation based on the Chronic Kidney Disease Epidemiology Collaboration (CKD-EPI) equation refit without adjustment for race Glucose [Mass/Vol] 198 mg/dL High 70 - 100 mg/dL [facility] Interpretation and review of laboratory results Abnormal [facility] Phosphate [Mass/Vol] 4.1 mg/dL 2.5 - 4 .5 mg/dL [facility] Potassium [Moles/Vol] 4.0 mmol/L 3.5 - 5.1 mmol/L [facility] Sodium [Moles/Vol] 124 mmol/L Low 135 - 145 mmol/L [facility] Urea nitrogen [Mass/Vol] 23 mg/dL High 7 - 17 mg/dL [facility] THYROID STIMULATING HORMONEo n 01-22-2024 THYROID STIMULATING HORMONE 1.394 uIU/mL Normal 0.465-4.68 0 [facility] Comment on above: Performed By: #### L AB113, [id number], LAB15, [id number], LAB20 ####Clinical Nurse Occupational Medicine: ELISSA HARRISON ([phone])[facility] ([address] TSH Qnon 01-22-2024 Interpretation and review of laboratory results Normal [facility] URINE CULTUREon 01-22-2024 Bacteria identified Cx Nom [...] Non-susceptible NO = No Interpretation ] Normal [facility] Comment on above: Performed By: #### L [id number] ####Clinical Nurse Occupational Medicine: ELISSA HARRISON ([id number])[facility] ([facility])[address] [place] [address] Urinalysis complete panel (U )Ordered By: Lizette Horn on 01-22-2024 Bacteria LM.HPF (Urine sed) [#/Area] Many Abnormal Negative /HPF [facility] Bilirubin Ql (U) Negative Negative mg/dL [facility] Clarity (U) Clear Clear [facility] Color (U) Colorless Lt. Yellow [facility] Epithelial cells.squamous LM.HPF (Urine sed) [#/Area] 0-2 [facility] Glucose Ql (U) 500 mg/dL Abnormal Normal (<70) [facility] Hemoglobin Ql (U) Negative Negative mg/dL [facility] Hyaline casts Auto (Urine sed) [#/Area] Negative Negative /LPF [facility] Interpretation and review of laboratory results Abnormal [facility] Ketones (U) [Mass/Vol] Negative Negat alvaro mg/dL [facility] Leukocyte esterase Test strip Ql (U) 250 Abnormal Negative Marquez/uL [facility] Nitrite Ql (U) Positive Abnormal Negative [facility] pH (U) 5.5 [pH] 5.0 - 8.0 pH [facility] Protein (U) [Mass/Vol] Negative Negat alvaro mg/dL [facility] RBC LM.HPF (Urine sed) [#/Area] 3-5 Abnormal [facility] Specific gravity (U) [Rel density] 1.005 1.005 - 1.030 [facility] Urobilinogen (U) [Mass/Vol] Normal Normal (0-1) mg/dL [facility] WBC LM.HPF (Urine sed) [#/Area] 26-50 Abnormal [facility] CT PELVIS W/O CONTRASTon CT PELVIS W/O [...] 12/03/2023 11:52:39 AM Ordering Provider: KATHY MCCARTY [facility] ([place]) 24 hour urine alpha 2 globul in/total protein ratio by electrophoresis (mass fraction)Ordered By: Aleksey Hill on 05-08-2023 Alpha 2 globulin Elph (24H U) [Mass fraction] 7.0 % . [facility] 24 hour urine beta globulin/ total protein ratio by electrophoresis (mass fraction)Ordered By: Aleksey Hill on 05-08-2023 Beta globulin Elph (24H U) [Mass fraction] 16.6 % . [facility] 24 hour urine gamma globulin /total protein ratio by electrophoresis (mass fraction)Ordered By: Aleksey Hill on 05-08-2023 Gamma globulin Elph (24H U) [Mass fraction] 12.2 % . [facility] Basophil percentageOrdered B y: Aleksey Hill on 05-08-2023 Basophil percentage 4 ug/L 0-9 [facility] Comment on above: Detection Limit = 1 Blood mercury measurement (m ass/volume)Ordered By: Aleksey Hill on 05-08-2023 Mercury (Bld) [Mass/Vol] < 1.0 ug/L 0.0-14.9 [facility] Comment on above: Environmental Exposu re: <15.0 Occupational Exposure: LORRAINE - Inorganic Mercury: 15.0 Detection Limit = 1.0Performed at: [facility] [address] [id number] Director: Jovon Cortes PhD, Phone: [phone] at: [facility] [address] [id number] Director: Joan Ye MD, Phone: [phone] Erythrocyte sedimentation ra teOrdered By: Aleksey Hill on 05-08-2023 ESR (Bld) [Velocity] 4 mm/h 0-30 [facility] Laboratory - Chemistry and C hemistry - challengeOrdered By: Aleksey Hill on 05-08-2023 Albumin [Mass/Vol] 3.8 g/dL 2.9-4.4 [facility] Cobalamin (Vitamin B12) [Mass/Vol] 1363 pg/mL 211-911 [facility] No Panel InformationOrdered By: Aleksey Hill on 05-08-2023 Addendum Document Comment . [facility] Comment on above: The SPE pattern appe ars unremarkable. Evidence ofmonoclonal protein is not apparent. Ufdku-7-Yxxgjqhha 0.1 g/dL 0.0-0.4 [facility] Yvjhm-6-Tpjffwszp 0.8 g/dL 0.4-1.0 [facility] Gamma Globulins 0.7 g/dL 0.4-1.8 [facility] Lead < 1.0 ug/dL 0.0-3.4 [facility] Comment on above: Testing performed by Inductively coupled plasma/MassSpectrometry. Environmental Exposure: WHO Recommendation <5.0 Occupational Exposure: OSHA Lead Std 40.0 LORRAINE 30.0 Detection Limit = 1.0 Serum Immunofixation Comment . [facility] Comment on above: No monoclonality det ected. Urine Immunofixation PEP Note Comment . [facility] Comment on above: Protein electrophore sis scan will follow via computer,mail, or screw machine operator delivery. Protein Fractions Elph [Inte rp]Ordered By: Aleksey Hill on 05-08-2023 Protein Fractions [Interp] Comment . [facility] Comment on above: Protein electrophore sis scan will follow via computer,mail, or screw machine operator delivery. Serum albumin to globulin ra jazlyn by protein electrophoresisOrdered By: Aleksey Hill on 05-08-2023 Albumin/Globulin Elph [Mass ratio] 1.5 0.7-1.7 [facility] Serum globulin measurement ( mass/volume)Ordered By: Aleksey Hill on 05-08-2023 Globulin (S) [Mass/Vol] 2.5 g/dL 2.2-3.9 [facility] Serum or plasma C reactive p rotein measurement (mass/volume)Ordered By: Aleksey Hill on 05-08-2023 CRP [Mass/Vol] mg/L 0.0-3.0 [facility] Comment on above: C-Reactive Protein ( CRP) provides useful information for thediagnosis, therapy and monitoring of inflammatory processesand associated diseases. For the evaluation of Relative Riskfor Cardiovascular Disease, a High Sensitivity CRP (HSCRP)should be ordered. Serum or plasma IgA measurem ent (mass/volume)Ordered By: Aleksey Hill on 05-08-2023 IgA [Mass/Vol] 230 mg/dL 64-422 [facility] Serum or plasma IgG measurem ent (mass/volume)Ordered By: Aleksey Hill on 05-08-2023 IgG [Mass/Vol] 749 mg/dL 586-1602 [facility] Serum or plasma IgM measurem ent (mass/volume)Ordered By: Aleksey Hill on 05-08-2023 IgM [Mass/Vol] 128 mg/dL 26-217 [facility] Serum or plasma beta globuli n measurement by electrophoresis (mass/volume)Ordered By: Aleksey Hill on 05-08-2023 Beta globulin Elph [Mass/Vol] 0.9 g/dL 0.7-1.3 [facility] Serum or plasma protein mono clonal measurement by electrophoresis (mass/volume)Ordered By: Aleksey Hill on 05-08-2023 Protein.monoclonal Elph [Mass/Vol] Not Observed g/dL Not Observed [facility] Total protein bloodOrdered B y: Aleksey Hill on 05-08-2023 Protein [Mass/Vol] 6.3 g/dL 6.0-8.5 [facility] Urine albumin/total protein mass ratio by electrophoresisOrdered By: Aleksey Hill on 05-08-2023 Albumin Elph (U) [Mass fraction] 61.1 % . [facility] Urine alpha 1 globulin/total protein ratio by electrophoresis (mass fraction)Ordered By: Aleksey Hill on 05-08-2023 Alpha 1 globulin Elph (U) [Mass fraction] 3.0 % . [facility] Urine monoclonal protein/tot al protein mass ratio by electrophoresisOrdered By: Aleksey Hill on 05-08-2023 Protein.monoclonal Elph (U) [Mass fraction] See comment [facility] Comment on above: NOT OBSERVED Urine protein measurement (m ass/volume)Ordered By: Aleksey Hill on 05-08-2023 Protein (U) [Mass/Vol] 28.2 mg/dL Not Estab. [facility] Basophil percentageOrdered B y: Hugo Julio on 05-01-2023 Basophil percentage 25-50 SEEN /hpf 0-5 [facility] Bilirubin Test strip Ql (U)O rdered By: Hugo Julio on 05-01-2023 Bilirubin Ql (U) Negative Negative [facility] Culture, urineOrdered By: Amber Julio on 05-01-2023 Bacteria identified Cx Nom (U) Klebsiella pneumoniae sp pneum [facility] Ketones Test strip Ql (U)Ord ered By: Hugo Julio on 05-01-2023 Ketones Ql (U) Negative Negative [facility] Mucus LM Ql (Urine sed)Order ed By: Hugo Julio on 05-01-2023 Mucus Ql (Urine sed) 0 SEEN /hpf [facility] Nitrite Test strip Ql (U)Ord ered By: Hugo Julio on 05-01-2023 Nitrite Ql (U) Negative Negative [facility] Protein Test strip Ql (U)Ord ered By: Hugo Julio on 05-01-2023 Protein Ql (U) 100 mg/dl Negative [facility] Squamous epithelial cells de tection in urine sediment by light microscopyOrdered By: Hugo Julio on 05-01-2023 Epithelial cells.squamous LM Ql (Urine sed) 0-5 SEEN /hpf 5-10 [facility] Urine blood detectionOrdered By: Hugo Julio on 05-01-2023 RBC Ql (U) 250 /ul Negative [facility] RBC Ql (U) 5-10 SEEN /hpf 0-5 [facility] Urine clarityOrdered By: Lori Julio on 05-01-2023 Clarity (U) Sl. Cloudy Clear [facility] Urine color determinationOrd ered By: Hugo Julio on 05-01-2023 Color (U) Yellow Yellow [facility] Urine glucose detectionOrder ed By: Hugo Julio on 05-01-2023 Glucose Ql (U) 1000 mg/dl Normal [facility] Urine leukocyte esterase det ection by dipstickOrdered By: Hugo Julio on 05-01-2023 Leukocyte esterase Test strip Ql (U) 500 /ul Negative [facility] Urine pHOrdered By: Hugo hernandez on 05-01-2023 pH (U) 6.0 [pH] 5.0 - 8.0 [facility] Urine sediment bacteria coun t by microscopy (number/high power field)Ordered By: Hugo Julio on 05-01-2023 Bacteria LM.HPF (Urine sed) [#/Area] 2 /[HPF] None Seen [facility] Urine specific gravity measu rementOrdered By: Hugo Julio on 05-01-2023 Specific gravity (U) [Rel density] 1.015 1.002-1.03 0 [facility] Urobilinogen Auto test strip Ql (U)Ordered By: Hugo Julio on 05-01-2023 Urobilinogen Ql (U) Normal mg/dl Normal [facility] Basophil percentageOrdered B y: David Puga on 04-28-2023 Bilirubin [Mass/Vol] 0.40 mg/dL 0.20-1.00 [facility] Comment on above: For patients on eltr ombopag therapy, use of Dimension Agra TBIL is not recommended. Chloride [Moles/Vol] 98 mmol/L 98-107 [facility] Glucose [Mass/Vol] 115 mg/dL 74-106 [facility] Comment on above: Fasting Glucose resu lt from 100 to 125 mg/dL suggests IMPAIRED HOMEOSTASIS per A.D.A. criteria. Potassium [Moles/Vol] 3.7 mmol/L 3.5-5.1 [facility] Protein [Mass/Vol] 7.7 g/dL 6.4-8.2 [facility] Sodium [Moles/Vol] 135 mmol/L 136-145 [facility] Laboratory - Chemistry and C hemistry - challengeOrdered By: David Puga on 04-28-2023 ALP [Catalytic activity/Vol] 76 U/L 45-117 [facility] ALT [Catalytic activity/Vol] 28 U/L 13-56 [facility] CO2 [Moles/Vol] 30.0 mmol/L 21.0-32.0 [facility] Globulin (S) [Mass/Vol] 4.1 g/dL 2.2-4.2 [facility] Magnesium [Mass/Vol] 2.6 mg/dL 1.6-2.6 [facility] Urea nitrogen/Creatinine [Mass ratio] 15.0 mg/mg 10-20 [facility] No Panel InformationOrdered By: David Puga on 04-28-2023 Estimated GFR (MDRD) Amer 75 mL/min >60 [facility] Comment on above: GFR Calc Estimated GFR (MDRD) Non-Af Amer 62 mL/min >60 [facility] Comment on above: Non- GFR Calc Parathyroid Hormone (Intact) 59.9 pg/mL 18.4-80.1 [facility] Serum or plasma albumin shane urement (mass/volume)Ordered By: David Puga on 04-28-2023 Albumin [Mass/Vol] 3.6 g/dL 3.2-5.0 [facility] Serum or plasma albumin/glob ulin mass ratioOrdered By: Davidewelina Puga on 04-28-2023 Albumin/Globulin [Mass ratio] 0.9 {ratio} 0.9-2.4 [facility] Serum or plasma calcium shane urement (mass/volume)Ordered By: David Puga on 04-28-2023 Calcium [Mass/Vol] 9.0 mg/dL 8.5-10.1 [facility] Serum or plasma creatinine m easurement (mass/volume)Ordered By: David Puga on 04-28-2023 Creatinine [Mass/Vol] 0.93 mg/dL 0.55-1.02 [facility] Comment on above: The validity of the calculated GFR & GFRAA in patients over 70 years has not been determined. Clinical correlation is essential. Serum or plasma urea nitroge n measurement (mass/volume)Ordered By: David Puga on 04-28-2023 Urea nitrogen [Mass/Vol] 14 mg/dL 7-18 [facility] Thin prep Papanicolaou smear with manual screeningOrdered By: David Puga on 04-28-2023 Thin prep Papanicolaou smear with manual screening 26 U/L 15-37 [facility] Thin prep Papanicolaou smear with manual screening 7 5-15 [facility] Whole blood hemoglobin A1c/t otal hemoglobin ratio (mass fraction)Ordered By: David Puga on 04-28-2023 HbA1c (Bld) [Mass fraction] 6.3 % 3.8-5.6 [facility] Comment on above: Normal < 5.7 % [...] Cream Furosemide 20 MG Oral Tablet Ipratropium [place] 0.03 % Nasal Solution Kerendia 10 MG [...] 1 % GEL Vitals Vital Signs Recorded: [id number] 03:03PM Height4 ft 9.5 in Ghvsiw057 lb BMI Zbcnfsugbm06.54 kg/m2 BSA Calculated1.62 Physical Exam Constitutional General appearance: In no acute distress . Eyes Anicteric Sclerae . Pulmonary Auscultation of lungs: Clear. Cardiovascular Auscultation of heart: RRR without murmur. Examination of extremities for edema: Normal. Abdomen Soft, non-tender. Bowel sounds normal. No hepatomegaly or splenomegaly. Signatures Electronically signed by : Marilia Stubbs DO; Jan 16 2023 4:31PM EST (Author) Normal [facility] Basophil percentageOrdered B y: Tiara Buck on 01-08-2023 Basophil percentage 4.1 mg/dL 2.5-4.9 [facility] Bilirubin [Mass/Vol] 0.40 mg/dL 0.20-1.00 [facility] Comment on above: For patients on eltr ombopag therapy, use of Dimension Agra TBIL is not recommended. Chloride [Moles/Vol] 100 mmol/L 98-107 [facility] Glucose [Mass/Vol] 130 mg/dL 74-106 [facility] Comment on above: Fasting Glucose resu lt greater than or equal to 126 mg/dL suggests DIABETES MELLITUS per A.D.A. criteria. Potassium [Moles/Vol] 4.4 mmol/L 3.5-5.1 [facility] Protein [Mass/Vol] 6.6 g/dL 6.4-8.2 [facility] Sodium [Moles/Vol] 136 mmol/L 136-145 [facility] Laboratory - Chemistry and C hemistry - challengeOrdered By: Tiara Buck on 01-08-2023 ALP [Catalytic activity/Vol] 62 U/L 45-117 [facility] ALT [Catalytic activity/Vol] 25 U/L 13-56 [facility] CO2 [Moles/Vol] 30.0 mmol/L 21.0-32.0 [facility] Globulin (S) [Mass/Vol] 3.4 g/dL 2.2-4.2 [facility] Urea nitrogen/Creatinine [Mass ratio] 16.0 mg/mg 10-20 [facility] No Panel InformationOrdered By: Tiara Buck on 01-08-2023 Urine Microalbumin/Creatinine Ratio 229.8 mg/g CRE <30 [facility] Estimated GFR (MDRD) Amer 69 mL/min >60 [facility] Comment on above: GFR Calc Estimated GFR (MDRD) Non-Af Amer 57 mL/min >60 [facility] Comment on above: Non- GFR Calc Thyroid Stimulating Hormone (TSH) 1.11 uIU/mL 0.358-3.74 [facility] Serum or plasma albumin shane urement (mass/volume)Ordered By: Tiara Buck on 01-08-2023 Albumin [Mass/Vol] 3.2 g/dL 3.2-5.0 [facility] Serum or plasma albumin/glob ulin mass ratioOrdered By: Tiara Buck on 01-08-2023 Albumin/Globulin [Mass ratio] 0.9 {ratio} 0.9-2.4 [facility] Serum or plasma calcium shane urement (mass/volume)Ordered By: Tiara Buck on 01-08-2023 Calcium [Mass/Vol] 9.0 mg/dL 8.5-10.1 [facility] Serum or plasma creatinine m easurement (mass/volume)Ordered By: Tiara Buck on 01-08-2023 Creatinine [Mass/Vol] 1.00 mg/dL 0.55-1.02 [facility] Comment on above: The validity of the calculated GFR & GFRAA in patients over 70 years has not been determined. Clinical correlation is essential. Serum or plasma urea nitroge n measurement (mass/volume)Ordered By: Tiara Buck on 01-08-2023 Urea nitrogen [Mass/Vol] 16 mg/dL 7-18 [facility] Thin prep Papanicolaou smear with manual screeningOrdered By: Tiara Buck on 01-08-2023 Thin prep Papanicolaou smear with manual screening 131.0 mg/L NO RANGE EST. [facility] Thin prep Papanicolaou smear with manual screening 18 U/L 15-37 [facility] Thin prep Papanicolaou smear with manual screening 6 5-15 [facility] Urine creatinine measurement (mass/volume)Ordered By: Tiara Buck on 01-08-2023 Creatinine (U) [Mass/Vol] 57.00 mg/dL NO RANGE EST. [facility] Whole blood hemoglobin A1c/t otal hemoglobin ratio (mass fraction)Ordered By: Tiara Buck on 01-08-2023 HbA1c (Bld) [Mass fraction] 6.8 % 3.8-5.6 [facility] Comment on above: Normal < 5.7 % Predi abetic 5.7 - 6.4 % Diabetic >or= 6.5 % Please note range changes. Absolute lymphocyte counton 11-07-2022 Lymphocytes Auto (Unsp spec) [#/Vol] 1.45 10*3/uL 0.83-4.51 [facility] Basophil percentageon 2022 Basophils/100 WBC (Bld) 0.8 % 0-1 [facility] Bilirubin [Mass/Vol] 0.40 mg/dL 0.20-1.00 [facility] Comment on above: For patients on eltr ombopag therapy, use of Dimension Agra TBIL is not recommended. Chloride [Moles/Vol] 105 mmol/L 98-107 [facility] Eosinophils/100 WBC (Bld) 2.0 % 0-5 [facility] Glucose [Mass/Vol] 304 mg/dL 74-106 [facility] Comment on above: Glucose result great er than or equal to 200 mg/dLsuggests DIABETES MELLITUS per A.D.A. criteria. Neutrophils (Bld) [#/Vol] 4.5 10*3/uL 2.0-7.7 [facility] Neutrophils/100 WBC (Bld) 68.2 % 47-70 [facility] Potassium [Moles/Vol] 4.7 mmol/L 3.5-5.1 [facility] Protein [Mass/Vol] 6.6 g/dL 6.4-8.2 [facility] Sodium [Moles/Vol] 137 mmol/L 136-145 [facility] WBC (Bld) [#/Vol] 6.6 10*3/uL 4.4-11.0 [facility] Blood erythrocytes count (nu mber/volume)on 11-07-2022 RBC (Bld) [#/Vol] 3.97 10*6/uL 4.2-5.4 [facility] Blood hemoglobin measurement (mass/volume)on 11-07-2022 Hemoglobin (Bld) [Mass/Vol] 12.5 g/dL 12.0-15.0 [facility] Blood lymphocytes/100 leukoc yteson 11-07-2022 Lymphocytes/100 WBC (Bld) 21.9 % 19-41 [facility] Blood monocytes/100 leukocyt eson 11-07-2022 Monocytes/100 WBC (Bld) 6.8 % 0-10 [facility] Blood platelet mean volumeon 11-07-2022 Platelet mean volume (Bld) [Entitic vol] 10.0 fL 6.2-12.0 [facility] Determination of erythrocyte mean corpuscular volume (MCV)on 11-07-2022 MCV (RBC) [Entitic vol] 101.0 fL 81-99 [facility] Hematocrit Auto (Bld) [Volum e fraction]on 11-07-2022 Hematocrit (Bld) [Volume fraction] 40.1 % 37-47 [facility] Iron measurement (mass/mass) on 11-07-2022 Iron (Unsp spec) [Mass/Mass] 63 ug/dL 50-170 [facility] Laboratory - Chemistry and C hemistry - challengeon 11-07-2022 ALP [Catalytic activity/Vol] 63 U/L 45-117 [facility] ALT [Catalytic activity/Vol] 41 U/L 13-56 [facility] CO2 [Moles/Vol] 26.0 mmol/L 21.0-32.0 [facility] Cobalamin (Vitamin B12) [Mass/Vol] 1572 pg/mL 211-911 [facility] Globulin (S) [Mass/Vol] 3.4 g/dL 2.2-4.2 [facility] Urea nitrogen/Creatinine [Mass ratio] 14.0 mg/mg 10-20 [facility] Laboratory - Hematology and Cell countson 11-07-2022 Erythrocyte distribution width (RBC) [Entitic vol] 46.5 fL 35.1-43.9 [facility] Erythrocyte distribution width (RBC) [Ratio] 12.5 % 11.6-14.6 [facility] Immature granulocytes/100 WBC (Bld) 0.300 % 0.0-0.9 [facility] Comment on above: IG% - Immature Granu locytes (promyelocytes, myelocytes and metamyelocytes) > 1% indicates that a LEFT SHIFT is Present. MCH (RBC) [Entitic mass] 31.5 pg 27.0-32.0 [facility] Nucleated RBC/100 WBC (Bld) [Ratio] 0 % 0-5 [facility] MCHC Auto (RBC) [Mass/Vol]on 11-07-2022 MCHC (RBC) [Mass/Vol] 31.2 g/dL 32-36 [facility] No Panel Informationon 11-07 Estimated GFR (MDRD) Amer 75 mL/min >60 [facility] Comment on above: GFR Calc Estimated GFR (MDRD) Non-Af Amer 62 mL/min >60 [facility] Comment on above: Non- GFR Calc Parathyroid Hormone (Intact) 28.5 pg/mL 18.4-80.1 [facility] Total Iron Binding Capacity 351 ug/dL 250-450 [facility] Vitamin D 25-Hydroxy 67.5 ng/mL [facility] Comment on above: Vitamin D 25(OH) Sta tus Range Deficiency <20 ng/mL (50nmol/L) Insufficiency 20 - 30 ng/mL (50 - 75 nmol/L) Sufficiency 30 - 100 ng/mL (75 - 250 nmol/L) Toxicity >100 ng/mL (>250 nmol/L) Whole Blood Vitamin B1 Level 195.0 nmol/L 66.5-200.0 [facility] Platelets bldon 11-07-2022 Platelets (Bld) [#/Vol] 234 10*3/uL 150-450 [facility] Serum or plasma albumin shane urement (mass/volume)on 11-07-2022 Albumin [Mass/Vol] 3.2 g/dL 3.2-5.0 [facility] Serum or plasma albumin/glob ulin mass ratioon 11-07-2022 Albumin/Globulin [Mass ratio] 0.9 {ratio} 0.9-2.4 [facility] Serum or plasma calcium shane urement (mass/volume)on 11-07-2022 Calcium [Mass/Vol] 9.0 mg/dL 8.5-10.1 [facility] Serum or plasma creatinine m easurement (mass/volume)on 11-07-2022 Creatinine [Mass/Vol] 0.93 mg/dL 0.55-1.02 [facility] Comment on above: The validity of the calculated GFR & GFRAA in patients over 70 years has not been determined. Clinical correlation is essential. Serum or plasma ferritin agustin surement (mass/volume)on 11-07-2022 Ferritin [Mass/Vol] 56 ng/mL 8-252 [facility] Serum or plasma folate measu rement (mass/volume)on 11-07-2022 Folate [Mass/Vol] 33.30 ng/mL 3.1-55.4 [facility] Serum or plasma iron saturat ion measurement (mass fraction)on 11-07-2022 Iron saturation [Mass fraction] 17.9 % 15.0-55.0 [facility] Serum or plasma urea nitroge n measurement (mass/volume)on 11-07-2022 Urea nitrogen [Mass/Vol] 13 mg/dL 7-18 [facility] Serum or plasma zinc measure ment (mass/volume)on 11-07-2022 Zinc [Mass/Vol] 87 ug/dL 44-115 [facility] Comment on above: Detection Limit = 5P erformed at: - [facility] [id number] Director: Joan Ye MD, Phone: [phone] Thin prep Papanicolaou smear with manual screeningon 11-07-2022 Thin prep Papanicolaou smear with manual screening 40 U/L 15-37 [facility] Thin prep Papanicolaou smear with manual screening 6 5-15 [facility] Thin prep Papanicolaou smear with manual screening 96 ug/dL 80-158 [facility] Comment on above: Detection Limit = 5 [...] Tablet Furosemide 20 MG Oral Tablet Ipratropium [place] 0.03 % Nasal Solution Kerendia 10 MG [...] Tablet Extended Release Vitamin D3 250 MCG (27428 UT) Oral Tablet Vitals Vital Signs Recorded: [id number] 03:47PM Height4 ft 9.5 in Udrppi992 lb BMI Ovfiwmmenw75.71 kg/m2 BSA Calculated1.53 Physical Exam Constitutional General [...] Normal [facility] Basophil percentageOrdered B y: David Vivien on 10-14-2022 Bilirubin [Mass/Vol] 0.40 mg/dL 0.20-1.00 [facility] Comment on above: For patients on eltr ombopag therapy, use of Dimension Agra TBIL is not recommended. Chloride [Moles/Vol] 108 mmol/L 98-107 [facility] Cholesterol [Mass/Vol] 189 mg/dL <200 [facility] Comment on above: <200 mg/dL Desirable 200-240 mg/dL Borderline >240 mg/dL High Risk Glucose [Mass/Vol] 85 mg/dL 74-106 [facility] Potassium [Moles/Vol] 3.5 mmol/L 3.5-5.1 [facility] Protein [Mass/Vol] 6.6 g/dL 6.4-8.2 [facility] Sodium [Moles/Vol] 142 mmol/L 136-145 [facility] Triglyceride [Mass/Vol] 104 mg/dL <199 [facility] Comment on above: The drugs N-Acetylcy steine and Metamizole may falsely depress this assay.Serum Triglycerides Reference Interval Normal <150 mg/dL Borderline high 150 - 199 mg/dL High 200 - 499 mg/dL Very High > or = 500 mg/dL Laboratory - Chemistry and C hemistry - challengeOrdered By: David Puga on 10-14-2022 ALP [Catalytic activity/Vol] 54 U/L 45-117 [facility] ALT [Catalytic activity/Vol] 23 U/L 13-56 [facility] CO2 [Moles/Vol] 26.0 mmol/L 21.0-32.0 [facility] Globulin (S) [Mass/Vol] 3.2 g/dL 2.2-4.2 [facility] Urea nitrogen/Creatinine [Mass ratio] 29.2 mg/mg 10-20 [facility] No Panel InformationOrdered By: David Puga on 10-14-2022 Estimated GFR (MDRD) Amer 96 mL/min >60 [facility] Comment on above: GFR Calc Estimated GFR (MDRD) Non-Af Amer 79 mL/min >60 [facility] Comment on above: Non- GFR Calc Thyroid Stimulating Hormone (TSH) 1.66 uIU/mL 0.358-3.74 [facility] Urine Microalbumin/Creatinine Ratio 519.8 mg/g CRE <30 [facility] Vitamin D 25-Hydroxy 62.0 ng/mL [facility] Comment on above: Vitamin D 25(OH) Sta tus Range Deficiency <20 ng/mL (50nmol/L) Insufficiency 20 - 30 ng/mL (50 - 75 nmol/L) Sufficiency 30 - 100 ng/mL (75 - 250 nmol/L) Toxicity >100 ng/mL (>250 nmol/L) Serum or plasma albumin shane urement (mass/volume)Ordered By: David Puga on 10-14-2022 Albumin [Mass/Vol] 3.4 g/dL 3.2-5.0 [facility] Serum or plasma albumin/glob ulin mass ratioOrdered By: David Puga on 10-14-2022 Albumin/Globulin [Mass ratio] 1.1 {ratio} 0.9-2.4 [facility] Serum or plasma calcium shane urement (mass/volume)Ordered By: David Puga on 10-14-2022 Calcium [Mass/Vol] 8.1 mg/dL 8.5-10.1 [facility] Serum or plasma cholesterol in HDL measurement (mass/volume)Ordered By: David Puga on 10-14-2022 Cholesterol in HDL [Mass/Vol] 70 mg/dL >40 [facility] Comment on above: The drugs N-Acetylcy steine and Metamizole may falsely depress this assay. Reference Range HDL <40 mg/dL Low HDL Cholesterol HDL >or= 60 mg/dL High HDL Cholesterol Serum or plasma cholesterol in VLDL measurement (mass/volume)Ordered By: David Puga on 10-14-2022 Cholesterol in VLDL [Mass/Vol] 21 mg/dL 5-40 [facility] Serum or plasma creatinine m easurement (mass/volume)Ordered By: David Puga 10-14-2022 Creatinine [Mass/Vol] 0.75 mg/dL 0.55-1.02 [facility] Comment on above: The validity of the calculated GFR & GFRAA in patients over 70 years has not been determined. Clinical correlation is essential. Serum or plasma low density lipoprotein (LDL) cholesterol measurement (mass/volume)Ordered By: David Puga on 10-14-2022 Cholesterol in LDL [Mass/Vol] 98 mg/dL 0-130 [facility] Serum or plasma urea nitroge n measurement (mass/volume)Ordered By: David Puga 10-14-2022 Urea nitrogen [Mass/Vol] 22 mg/dL 7-18 [facility] Thin prep Papanicolaou smear with manual screeningOrdered By: David Puga on 10-14-2022 Thin prep Papanicolaou smear with manual screening 25 U/L 15-37 [facility] Thin prep Papanicolaou smear with manual screening 8 5-15 [facility] Thin prep Papanicolaou smear with manual screening 315.0 mg/L NO RANGE EST. [facility] Urine creatinine measurement (mass/volume)Ordered By: David Vivien on 10-14-2022 Creatinine (U) [Mass/Vol] 60.60 mg/dL NO RANGE EST. [facility] Whole blood hemoglobin A1c/t otal hemoglobin ratio (mass fraction)Ordered By: David Vivien on 10-14-2022 HbA1c (Bld) [Mass fraction] 6.9 % 3.8-5.6 [facility] Comment on above: Normal < 5.7 % Predi abetic 5.7 - 6.4 % Diabetic >or= 6.5 % Please note range changes. ANES POSTPROC EVALon 023 ANES POSTPROC EVAL HNO ID: [id number] Author: Kyra Leiva MD Service: Anesthesiology Author [...] July 24, 2022 TIME: 1:42 PM CSN: [id number] Normal [facility] FATTY ACIDS PROFILE, MATTHEW Wadsworth 06-14-2022 Alpha linolenate (C18:3w3) [Moles/Vol] 98 nmol/mL 20 - 200 nmol/mL [facility] Arachidate (C20:0) [Moles/Vol] 21 nmol/mL 8 - 43 nmol/mL [facility] Arachidonate (C20:4w6) [Moles/Vol] 399 nmol/mL 310 - 1420 nmol/mL [facility] DHA [Moles/Vol] 67 nmol/mL 45 - 365 nmol/mL [facility] Docosapentaenate (C22:5w6) [Moles/Vol] 15 nmol/mL 6 - 55 nmol/mL [facility] Docosatetraenoate (C22:4w6) [Moles/Vol] 18 nmol/mL 10 - 40 nmol/mL [facility] Docosenoate (C22:1) [Moles/Vol] 3 nmol/mL 1 - 10 nmol/mL [facility] DPA [Moles/Vol] 38 nmol/mL 13 - 75 nmol/mL [facility] EER Fatty Acids Prof, Essential SP See Note [facility] EPA [Moles/Vol] 43 nmol/mL 8 - 130 nmol/mL [facility] Fatty acids [Moles/Vol] 9.5 mmol/L 4.5 - 15.0 mmol/L [facility] Fatty acids pattern Marciano [Interp] Normal [facility] Gamma Linolenate (C18:3w6) [Moles/Vol] 44 nmol/mL 10 - 120 nmol/mL [facility] Hexadecenoate (C16:1w9) [Moles/Vol] 42 nmol/mL 14 - 95 nmol/mL [facility] Homo-gamma Linolenate (C20:3w6) [Moles/Vol] 185 nmol/mL 45 - 340 nmol/mL [facility] Laurate (C12:0) [Moles/Vol] 15 nmol/mL 1 - 200 nmol/mL [facility] Linoleate (C18:2w6) [Moles/Vol] 2565 nmol/mL 1210 - 4300 nmol/mL [facility] Salida acid (C20:3w9) [Moles/Vol] 7 nmol/mL 1 - 35 nmol/mL [facility] Monounsaturated fatty acids [Moles/Vol] 2.6 mmol/L 0.9 - 4.7 mmol/L [facility] Myristate (C14:0) [Moles/Vol] 182 nmol/mL 20 - 520 nmol/mL [facility] Nervonate (C24:1) [Moles/Vol] 92 nmol/mL 35 - 145 nmol/mL [facility] Octadecanoate (C18:0) [Moles/Vol] 547 nmol/mL 280 - 1250 nmol/mL [facility] Oleate (C18:1w9) [Moles/Vol] 1998 nmol/mL 740 - 3900 nmol/mL [facility] Austin 3 fatty acids (w3) [Moles/Vol] 0.25 mmol/L 0.12 - 0.55 mmol/L [facility] [place] 6 fatty acids (w6) [Moles/Vol] 3.2 mmol/L 1.8 - 5.7 mmol/L [facility] Palmitate (C16:0) [Moles/Vol] 2712 nmol/mL 1090 - 3840 nmol/mL [facility] Palmitoleate (C16:1w7) [Moles/Vol] 293 nmol/mL 35 - 580 nmol/mL [facility] Polyunsaturated fatty acids [Moles/Vol] 3.5 mmol/L 2.1 - 6.2 mmol/L [facility] Saturated fatty acids [Moles/Vol] 3.5 mmol/L 1.5 - 5.3 mmol/L [facility] Trienoate (C20:3w9)/Arachidonate (C20:4w6) [Molar ratio] 0.018 0.004 - 0.051 [facility] Vaccenate (C18:1w7) [Moles/Vol] 156 nmol/mL 50 - 250 nmol/mL [facility] Alpha tocopherol [Mass/Vol]o n 06-12-2022 Beta+gamma tocopherol [Mass/Vol] 0.7 mg/L 0.3 - 3.2 mg/L [facility] METHYLMALONIC ACIDon 023 Methylmalonate [Moles/Vol] 125 nmol/L 79 - 376 nmol/L [facility] VITAMIN A/RETINOLon 06-12-19 23 Retinol [Mass/Vol] 0.87 mg/L 0.30 - 1.20 mg/L [facility] VITAMIN E/TOCOPHEROLon 06-12 Alpha tocopherol [Mass/Vol] 12.6 mg/L 6.0 - 23.0 mg/L [facility] COPPER BLOODon 06-11-2022 Copper [Mass/Vol] 79 ug/dL Low 80 - 155 ug/dL [facility] Established Visit (Gastroent erology)on 06-11-2022 Established [...] in the spring when she returns from [place] Chief Complaint FUV in office today for [...] did see an integrative medicine specialist at [facility] who is working with her to adjust [...] DAY Furosemide 20 MG Oral Tablet Ipratropium [place] 0.03 % Nasal Solution Jardiance 10 MG [...] Tablet Extended Release Vitamin D3 250 MCG (67016 UT) Oral Tablet Vitals Vital Signs Recorded: 11Jun2022 01:11PM [id number] Height4 ft 9.5 in Cgrkuq960 lb BMI Eomnufyzbu01.71 kg/m2 BSA Calculated1.53 Physical Exam Consti (more content not included)... Normal [facility] SELENIUM BLOODon 06-11-2022 Selenium (Bld) [Mass/Vol] 177.8 ug/L 58.0 - 234.0 ug/L [facility] VITAMIN D 25 HYDROXYon 06-11 25-hydroxyvitamin D3 [Mass/Vol] 36.5 ng/mL 31.0 - 80.0 ng/mL [facility] ZINC BLDon 06-11-2022 Zinc [Mass/Vol] 59 ug/dL Low 60 - 120 ug/dL [facility] 25(OH)D3 SerPl-mCncon 2022 25-hydroxyvitamin D3 [Mass/Vol] 36.5 ng/mL Normal 31.0-80.0 [facility] Comment on above: Order Comment: Speci men Type: BLOOD SPECIMENOrdering Facility: [facility] Address: [address] [place] [id number] Result Comment: Clas sification of 25 [place] Vitamin D status: Deficiency/Insufficiency: < or = 30 ng/ml. Sufficiency/Optimal Levels: 31-80 ng/mL Toxicity: > 100 ng/mL. Test performed by chemiluminescent immunoassay. Performed By: #### 1 989-3 ####[facility] [id number] [place] [address] [place] A-Tocopherol Vit E SerPl-mCn con 06-10-2022 Alpha tocopherol [Mass/Vol] 12.6 mg/L Normal 6.0-23.0 [facility] Comment on above: Order Comment: Speci men Type: BLOOD SPECIMENOrdering Facility: [facility] Address: [address] [place] [address] Performed By: #### 2 923-1, 182-4 ####[facility] [id number] [address] [place] Alpha tocopherol [Mass/Vol]o n 06-10-2022 Beta+gamma tocopherol [Mass/Vol] 0.7 mg/L Normal 0.3-3.2 [facility] Comment on above: Order Comment: Speci [facility] Type: BLOOD SPECIMENOrdering Facility: [facility] Address: [address] [place] [address] Result Comment: This test was developed and its performance characteristics determined by [facility]'s [facility] [place] ([facility]). It has not been cleared or approved by the FDA. -[facility] is regulated under CLIA as qualified to perform high-complexity testing. This test is used for clinical purposes. It should not be regarded as investigational or for research. Performed By: #### 2 923-1, 1824 ####[facility] [id number] [place] [address] [place] C-REACTIVE PROTEIN (CRP)on 0 06-10-2022 CRP [Mass/Vol] <0.9 mg/dL [facility] CBC W Auto Differential pane l (Bld)on 06-10-2022 Basophils (Bld) [#/Vol] 0.03 10*3/uL Normal <0.11 [facility] Comment on above: Order Comment: Speci men Type: BLOOD SPECIMENOrdering Facility: [facility] Address: [address] [address] Performed By: #### 5 7021-8 ####[facility] ERNCLIA [id number] [place] [address] [place] Basophils/100 WBC (Bld) 0.5 % Normal [facility] Comment on above: Order Comment: Speci men Type: BLOOD SPECIMENOrdering Facility: [facility] Address: [address] [place] [address] Performed By: #### 5 7021-8 ####[facility] [id number] [place] [address] [place] Differential cell count method Nom (Bld) Auto Normal [facility] Comment on above: Order Comment: Speci men Type: BLOOD SPECIMENOrdering Facility: [facility] Address: [address] [place] [address] Performed By: #### 5 7021-8 ####[facility] [id number] [place] [address] [place] Eosinophils (Bld) [#/Vol] 0.05 10*3/uL Normal <0.46 [facility] Comment on above: Order Comment: Speci men Type: BLOOD SPECIMENOrdering Facility: [facility] Address: [address] [place] [address] Performed By: #### 5 7021-8 ####[facility] HOSPITALLIA [id number] [place] [address] [place] Eosinophils/100 WBC (Bld) 0.8 % Normal [facility] Comment on above: Order Comment: Speci men Type: BLOOD SPECIMENOrdering Facility: [facility] Address: [address] [place] [address] Performed By: #### 5 7021-8 ####[facility]IT[facility] [id number] [place] [address] [place] Erythrocyte distribution width (RBC) [Ratio] 13.2 % Normal 11.5-15.0 [facility] Comment on above: Order Comment: Speci men Type: BLOOD SPECIMENOrdering Facility: [facility] Address: [address] [place] [address] Performed By: #### 5 7021-8 ####[facility] ERJESUS [id number] [place] [address] [place] Hematocrit (Bld) [Volume fraction] 38.0 % Normal 36.0-46.0 [facility] Comment on above: Order Comment: Speci men Type: BLOOD SPECIMENOrdering Facility: [facility] Address: [address] [place] [address] Performed By: #### 5 7021-8 ####[facility] ERJESUS [id number] [place] [address] [place] Hemoglobin (Bld) [Mass/Vol] 12.6 g/dL Normal 11.5-15.5 [facility] Comment on above: Order Comment: Speci men Type: BLOOD SPECIMENOrdering Facility: [facility] Address: [address] [place] [address] Performed By: #### 5 7021-8 ####[facility] ERJESUS [id number] [place] [address] [place] Immature granulocytes (Bld) [#/Vol] 10*3/uL Normal <0.10 [facility] Comment on above: Order Comment: Speci men Type: BLOOD SPECIMENOrdering Facility: [facility] Address: [address] [place] [address] Performed By: #### 5 7021-8 ####[facility] ERNCLIA [id number] [place] [address] [place] Immature granulocytes/100 WBC (Bld) 0.3 % Normal [facility] Comment on above: Order Comment: Speci men Type: BLOOD SPECIMENOrdering Facility: [facility] Address: [address] [place] [address] Performed By: #### 5 7021-8 ####[facility]NC[facility] [id number] [place] [address] [place] Lymphocytes (Bld) [#/Vol] 1.40 10*3/uL Normal 1.00-4.00 [facility] Comment on above: Order Comment: Speci men Type: BLOOD SPECIMENOrdering Facility: [facility] Address: [address] [place] [address] Performed By: #### 5 7021-8 ####[facility] ER [id number] [address] [place] Lymphocytes/100 WBC (Bld) 21.7 % Normal [facility] Comment on above: Order Comment: Speci men Type: BLOOD SPECIMENOrdering Facility: [facility] Address: [address] [place] [address] Performed By: #### 5 7021-8 ####[facility] ER [id number] [place] [address] [place] MCH (RBC) [Entitic mass] 32.4 pg Normal 26.0-34.0 [facility] Comment on above: Order Comment: Speci men Type: BLOOD SPECIMENOrdering Facility: [facility] Address: [address] [place] [address] Performed By: #### 5 7021-8 ####[facility] ER [id number] [place] [address] [place] MCHC (RBC) [Mass/Vol] 33.2 g/dL Normal 30.5-36.0 [facility] Comment on above: Order Comment: Speci men Type: BLOOD SPECIMENOrdering Facility: [facility] Address: [address] [address] Performed By: #### 5 7021-8 ####[facility] ERJESUS [id number] [place] [address] [place] MCV (RBC) [Entitic vol] 97.7 fL Normal 80.0-100.0 C [facility] Comment on above: Order Comment: Speci men Type: BLOOD SPECIMENOrdering Facility: [facility] Address: [address] [place] [address] Performed By: #### 5 7021-8 ####[facility] ERNCBL[facility], INC[facility] [id number] [place] [address] [place] Monocytes (Bld) [#/Vol] 0.51 10*3/uL Normal <0.87 [facility] Comment on above: Order Comment: Speci men Type: BLOOD SPECIMENOrdering Facility: [facility] Address: [address] [place] [address] Performed By: #### 5 7021-8 ####[facility] ERNCLIA [id number] [place] [address] [place] Monocytes/100 WBC (Bld) 7.9 % Normal [facility] Comment on above: Order Comment: Speci men Type: BLOOD SPECIMENOrdering Facility: [facility] Address: [address] [place], [place] [address] Performed By: #### 5 7021-8 ####[facility] ERNCLIA [id number] [place] [address] [place] Neutrophils (Bld) [#/Vol] 4.45 10*3/uL Normal 1.45-7.50 [facility] Comment on above: Order Comment: Speci men Type: BLOOD SPECIMENOrdering Facility: [facility] Address: [address] [place], [place] [address] Performed By: #### 5 7021-8 ####[facility] EMERGENCYWHILIA [id number] [place] [address] [place] Neutrophils/100 WBC (Bld) 68.8 % Normal [facility] Comment on above: Order Comment: Speci men Type: BLOOD SPECIMENOrdering Facility: [facility] Address: [address] [place] [address] Performed By: #### 5 7021-8 ####[facility] [id number] [place] [address] [place] Nucleated RBC (Bld) [#/Vol] 10*3/uL Normal <0.01 [facility] Comment on above: Order Comment: Speci men Type: BLOOD SPECIMENOrdering Facility: [facility] Address: [address] [place] [address] Performed By: #### 5 7021-8 ####[facility] [id number] [place] [address] [place] Nucleated RBC/100 WBC (Bld) [Ratio] 0.0 /100 WBC Normal [facility] Comment on above: Order Comment: Speci men Type: BLOOD SPECIMENOrdering Facility: [facility] Address: [address] [place] [address] Performed By: #### 5 7021-8 ####[facility] ER [id number] [place] [address] [place] Platelet mean volume (Bld) [Entitic vol] 9.0 fL Normal 9.0-12.7 [facility] Comment on above: Order Comment: Speci men Type: BLOOD SPECIMENOrdering Facility: [facility] Address: [address] [place] [address] Performed By: #### 5 7021-8 ####[facility] ERNCLI [id number] [place] [address] [place] Platelets (Bld) [#/Vol] 219 10*3/uL Normal 150-400 [facility] Comment on above: Order Comment: Speci men Type: BLOOD SPECIMENOrdering Facility: [facility] Address: [address] [place] [address] Performed By: #### 5 7021-8 ####[facility] ERNCLIA [id number] [place] [address] [place] RBC (Bld) [#/Vol] 3.89 10*6/uL Low 3.90-5.20 [facility] Comment on above: Order Comment: Speci men Type: BLOOD SPECIMENOrdering Facility: [facility] Address: [address] [place] [address] Performed By: #### 5 7021-8 ####[facility] ERNCLIA [id number] [place] [address] [place] WBC (Bld) [#/Vol] 6.46 10*3/uL Normal 3.70-11.00 [facility] Comment on above: Order Comment: Speci men Type: BLOOD SPECIMENOrdering Facility: [facility] Address: [address] [place] [address] Performed By: #### 5 7021-8 ####[facility] ERNCLIA [id number] [place] [address] [place] Basophils (Bld) [#/Vol] 0.03 10*3/uL <0.11 k/uL [facility] Basophils/100 WBC (Bld) 0.5 % [facility] Differential cell count method Nom (Bld) Auto [facility] Eosinophils (Bld) [#/Vol] 0.05 10*3/uL <0.46 k/uL [facility] Eosinophils/100 WBC (Bld) 0.8 % [facility] Erythrocyte distribution width (RBC) [Ratio] 13.2 % 11.5 - 15.0 % [facility] Hematocrit (Bld) [Volume fraction] 38.0 % 36.0 - 46.0 % [facility] Hemoglobin (Bld) [Mass/Vol] 12.6 g/dL 11.5 - 15.5 g/dL [facility] Immature granulocytes (Bld) [#/Vol] <0.10 k/uL [facility] Immature granulocytes/100 WBC (Bld) 0.3 % [facility] Lymphocytes (Bld) [#/Vol] 1.40 10*3/uL 1.00 - 4.00 k/uL [facility] Lymphocytes/100 WBC (Bld) 21.7 % [facility] MCH (RBC) [Entitic mass] 32.4 pg 26.0 - 34.0 pg [facility] MCHC (RBC) [Mass/Vol] 33.2 g/dL 30.5 - 36.0 g/dL [facility] MCV (RBC) [Entitic vol] 97.7 fL 80.0 - 100.0 fL [facility] Monocytes (Bld) [#/Vol] 0.51 10*3/uL <0.87 k/uL [facility] Monocytes/100 WBC (Bld) 7.9 % [facility] Neutrophils (Bld) [#/Vol] 4.45 10*3/uL 1.45 - 7.50 k/uL [facility] Neutrophils/100 WBC (Bld) 68.8 % [facility] Nucleated RBC (Bld) [#/Vol] <0.01 k/uL [facility] Nucleated RBC/100 WBC (Bld) [Ratio] 0.0 /100 WBC [facility] Platelet mean volume (Bld) [Entitic vol] 9.0 fL 9.0 - 12.7 fL [facility] Platelets (Bld) [#/Vol] 219 10*3/uL 150 - 400 k/uL [facility] RBC (Bld) [#/Vol] 3.89 10*6/uL Low 3.90 - 5.20 m/uL [facility] WBC (Bld) [#/Vol] 6.46 10*3/uL 3.70 - 11.00 k/uL [facility] COPPER BLOODon 06-10-2022 Copper [Mass/Vol] 79 ug/dL Low 80-155 [facility] Comment on above: Order Comment: Speci men Type: BLOOD SPECIMENOrdering Facility: [facility] Address: [address] [phone] Result Comment: This test was developed and its performance characteristics determined by [facility]'s [facility] Pathology [facility] [place] ([facility]). It has not been cleared or approved by the FDA. -[facility] is regulated under CLIA as qualified to perform high-complexity testing. This test is used for clinical purposes. It should not be regarded as investigational or for research. Performed By: #### C SILVIA, 5763-8 ####[facility] [id number] [place] [id number] [place] CRP SerPl-mCncon 06-10-2022 CRP [Mass/Vol] mg/L Normal <0.9 [facility] Comment on above: Order Comment: Speci men Type: BLOOD SPECIMENOrdering Facility: [facility] Address: [address] [place] [address] Performed By: #### 1 988-5, 2132-9, 2276-4, 38695-3 ####[facility] LAB[facility] [id number] [place] [address] [place] Comprehensive metabolic 2000 panelon 06-10-2022 Albumin [Mass/Vol] 3.8 g/dL Low 3.9-4.9 [facility] Comment on above: Order Comment: Speci men Type: BLOOD SPECIMENOrdering Facility: [facility] Address: [address] [address] Performed By: #### 2 4323-8, 76903-8, 2777-1 ####[facility] ER [id number] [place] [address] [place] ALP [Catalytic activity/Vol] 71 U/L Normal 34-123 [facility] Comment on above: Order Comment: Speci men Type: BLOOD SPECIMENOrdering Facility: [facility] Address: [address] [place] [address] Performed By: #### 2 4323-8, , 2776-06 ####[facility] MILLTOWNCLIA [id number] [place] [address] [place] ALT [Catalytic activity/Vol] 25 U/L Normal 7-38 [facility] Comment on above: Order Comment: Speci men Type: BLOOD SPECIMENOrdering Facility: [facility] Address: [address] [place] [address] Performed By: #### 2 4323-8, , 2776-06 ####[facility] ERNCLIA [id number] [place] [address] [place] Anion gap [Moles/Vol] 10 mmol/L Normal 9-18 [facility] Comment on above: Order Comment: Speci men Type: BLOOD SPECIMENOrdering Facility: [facility] Address: [address] [place] [address] Performed By: #### 2 4323-8, , 2776-06 ####[facility] ERNCLIA [id number] [place] [address] [place] AST [Catalytic activity/Vol] 24 U/L Normal 13-35 [facility] Comment on above: Order Comment: Speci men Type: BLOOD SPECIMENOrdering Facility: [facility] Address: [address] [place] [address] Performed By: #### 2 4323-8, , 2776-06 ####[facility] ERNCLIA [id number] [place] [address] [place] Bilirubin [Mass/Vol] 0.3 mg/dL Normal 0.2-1.3 [facility] Comment on above: Order Comment: Speci men Type: BLOOD SPECIMENOrdering Facility: [facility] Address: [address] [place] [address] Performed By: #### 2 4323-8, , 2776-06 ####[facility]YWNCLIA [id number] [place] [address] [place] Calcium [Mass/Vol] 8.7 mg/dL Normal 8.5-10.2 [facility] Comment on above: Order Comment: Speci men Type: BLOOD SPECIMENOrdering Facility: [facility] Address: [address] [place] [address] Performed By: #### 2 4323-8, , 2776-06 ####[facility] ERNCLIA [id number] [place] [address] [place] Chloride [Moles/Vol] 108 mmol/L High 97-105 [facility] Comment on above: Order Comment: Speci men Type: BLOOD SPECIMENOrdering Facility: [facility] Address: [address] [place] [address] Performed By: #### 2 4323-8, , 2776-06 ####[facility] ERNCLIA [id number] [place] [address] [place] CO2 [Moles/Vol] 20 mmol/L Low 22-30 [facility] Comment on above: Order Comment: Speci men Type: BLOOD SPECIMENOrdering Facility: [facility] Address: [address] [place] [address] Performed By: #### 2 4323-8, , 2776-06 ####[facility] ER[facility]CLIA [id number] [place] [address] [place] Creatinine [Mass/Vol] 0.75 mg/dL Normal 0.58-0.96 [facility] Comment on above: Order Comment: Speci men Type: BLOOD SPECIMENOrdering Facility: [facility] Address: [address] [place] [address] Performed By: #### 2 4323-8, , 2776-06 ####[facility]YWNCLIA [id number] [place] [address] [place] ESTIMATED GLOMERULAR FILTRATION RATE 83 mL/min/1.73m??? Normal >=60 [facility] Comment on above: Order Comment: Glenroy irizarry Type: BLOOD SPECIMENOrdering Facility: [facility] Address: [address] [place] [address] Result Comment: Sanna mated Glomerular Filtration Rate [...] actual GFR. Performed By: #### 2 4323-8, 24316-4, 2777-1 ####[facility]YWNCLIA [id number] [place] [address] [place] Glucose [Mass/Vol] 269 mg/dL High 74-99 [facility] Comment on above: Order Comment: Glenroy irizarry Type: BLOOD SPECIMENOrdering Facility: [facility] Address: [address] [place] [address] Result Comment: The [place] [employer] Association (ADA) provides guidance for cutoff [...] Standards of Medical Care in Diabetes 2016, [place] [employer]. Diabetes Care. 2016.39(Suppl 1). Performed By: #### 2 4323-8, 74065-0, 2777-1 ####[facility]YWNCLIA [id number] [place] [address] [place] Potassium [Moles/Vol] 3.6 mmol/L Low 3.7-5.1 [facility] Comment on above: Order Comment: Speci men Type: BLOOD SPECIMENOrdering Facility: [facility] Address: [address] [place] [address] Performed By: #### 2 4323-8, , 2776-06 ####[facility] MILLTOWNCLIA [id number] [place] [address] [place] Protein [Mass/Vol] 6.0 g/dL Low 6.3-8.0 [facility] Comment on above: Order Comment: Speci men Type: BLOOD SPECIMENOrdering Facility: [facility] Address: [address] [place] [address] Performed By: #### 2 4323-8, , 2776-06 ####[facility]IT[facility]IA [id number] [place] [address] [place] Sodium [Moles/Vol] 138 mmol/L Normal 136-144 [facility] Comment on above: Order Comment: Speci men Type: BLOOD SPECIMENOrdering Facility: [facility] Address: [address] [place] [address] Performed By: #### 2 4323-8, , 2776-06 ####[facility] MILLTOWNCLIA [id number] [place] [address] [place] Urea nitrogen [Mass/Vol] 18 mg/dL Normal 7-21 [facility] Comment on above: Order Comment: Speci men Type: BLOOD SPECIMENOrdering Facility: [facility] Address: [address] [place] [address] Performed By: #### 2 4323-8, , 2776-06 ####[facility] MILLWNCLIA [id number] [place] [address] [place] Albumin [Mass/Vol] 3.8 g/dL Low 3.9 - 4.9 g/dL [facility] ALP [Catalytic activity/Vol] 71 U/L 34 - 123 U/L [facility] ALT [Catalytic activity/Vol] 25 U/L 7 - 38 U/L [facility] Anion gap [Moles/Vol] 10 mmol/L 9 - 18 mmol/L [facility] AST [Catalytic activity/Vol] 24 U/L 13 - 35 U/L [facility] Bilirubin [Mass/Vol] 0.3 mg/dL 0.2 - 1 .3 mg/dL [facility] Calcium [Mass/Vol] 8.7 mg/dL 8.5 - 10. 2 mg/dL [facility] Chloride [Moles/Vol] 108 mmol/L High 97 - 10 5 mmol/L [facility] CO2 [Moles/Vol] 20 mmol/L Low 22 - 30 mmol/L [facility] Creatinine [Mass/Vol] 0.75 mg/dL 0.58 - 0.96 mg/dL [facility] Estimated Glomerular Filtration Rate 83 mL/min/1.73m >=60 mL/min/1.7 3m [facility] Glucose [Mass/Vol] 269 mg/dL High 74 - 99 mg/dL [facility] Potassium [Moles/Vol] 3.6 mmol/L Low 3.7 - 5.1 mmol/L [facility] Protein [Mass/Vol] 6.0 g/dL Low 6.3 - 8.0 g/dL [facility] Sodium [Moles/Vol] 138 mmol/L 136 - 144 mmol/L [facility] Urea nitrogen [Mass/Vol] 18 mg/dL 7 - 21 mg/dL [facility] FATTY ACIDS PROFILE, MATTHEW Wadsworth 06-10-2022 A-LINOLENIC ACID, C18 3W3 98 nmol/mL Normal 20-200 [facility] Comment on above: Order Comment: Speci men Type: BLOOD SPECIMENOrdering Facility: [facility] Address: [address] [place] [phone] Performed By: #### C FAPRO ####[facility]IESCLIA [id number] [place] [address] ARACHIDIC ACID, C20 0 21 nmol/mL Normal 8-43 [facility] Comment on above: Order Comment: Speci men Type: BLOOD SPECIMENOrdering Facility: [facility] Address: [address] [address] Performed By: #### C FAPRO ####[facility]IESCLIA [id number] [place] [address] ARACHIDONIC ACID, C20 4W6 399 nmol/mL Normal 310-1420 [facility] Comment on above: Order Comment: Speci men Type: BLOOD SPECIMENOrdering Facility: [facility] Address: [address] [address] Performed By: #### C FAPRO ####[facility]ORATORIESCLIA [id number] [place] [address] DHA, C22 6W3 67 nmol/mL Normal 45-365 [facility] Comment on above: Order Comment: Speci men Type: BLOOD SPECIMENOrdering Facility: [facility] Address: [address] [place] [address] Performed By: #### C FAPRO ####[facility]ATORIESCLIA [id number] [place] [address] DOCOSENOIC ACID, C22 1 3 nmol/mL Normal 1-[address] [facility] Comment on above: Order Comment: Speci men Type: BLOOD SPECIMENOrdering Facility: [facility] Address: [address] [address] Performed By: #### C FAPRO ####[facility]IESCLIA [id number] [place] [address] DPA, C22 5W3 38 nmol/mL Normal 13-75 [facility] Comment on above: Order Comment: Speci men Type: BLOOD SPECIMENOrdering Facility: [facility] Address: [address] [place] [address] Performed By: #### C FAPRO ####[facility]ATORIESCLIA [id number] [place] [address] DPA, C22 5W6 15 nmol/mL Normal 6-55 [facility] Comment on above: Order Comment: Speci men Type: BLOOD SPECIMENOrdering Facility: [facility] Address: [address] [place] [address] Performed By: #### C FAPRO ####[facility] LABORATORIESCLIA [id number] [place] [address] DTA, C22 4W6 18 nmol/mL Normal 10-40 [facility] Comment on above: Order Comment: Speci men Type: BLOOD SPECIMENOrdering Facility: [facility] Address: [address] [place] [address] Performed By: #### C FAPRO ####[facility] LABORATORIESCLIA [id number] [place] [address] EER FATTY ACIDS PROF, ESSENTIAL SP See Note Normal [facility] Comment on above: Order Comment: Speci men Type: BLOOD SPECIMENOrdering Facility: [facility] Address: [address] [place] [address] Result Comment: Auth orized individuals can access the [employer] Enhanced Report using the following link: [email or web address] Performed By: [employer] [address] [place] [address] Refractory Bricklayer: Roni Fleming MD, PhD Performed By: #### C FAPRO ####[facility]ORATORIESCLIA [id number] [place] [address] EPA, C20 5W3 43 nmol/mL Normal 8-130 [facility] Comment on above: Order Comment: Speci men Type: BLOOD SPECIMENOrdering Facility: [facility] Address: [address] [place] [address] Performed By: #### C FAPRO ####[facility]ATORIESCLIA [id number] [place] [address] G-LINOLENIC ACID, C18 3W6 44 nmol/mL Normal 10-120 [facility] Comment on above: Order Comment: Speci men Type: BLOOD SPECIMENOrdering Facility: [facility] Address: [address] [place] [address] Performed By: #### C FAPRO ####[facility]ATORIESCLIA [id number] [place] [address] X-[id number] C20:3W6 185 nmol/mL Normal 45-[address] [facility] Comment on above: Order Comment: Speci men Type: BLOOD SPECIMENOrdering Facility: [facility] Address: [address] [place] [address] Performed By: #### C FAPRO ####[facility] GREENVILLECLIA [id number] [place] [address] HEXADECENOIC ACID, C16 1W9 42 nmol/mL Normal 14-95 [facility] Comment on above: Order Comment: Speci men Type: BLOOD SPECIMENOrdering Facility: [facility] [facility] Address: [address] [place] [address] Performed By: #### C FAPRO ####[facility]ENTERIA [id number] [place] [address] INTERPRETATION, FATTY ACID PROFILE Normal Normal [facility] Comment on above: Order Comment: Speci men Type: BLOOD SPECIMENOrdering Facility: [facility] Address: [address] [place] [address] Result Comment: Normal fatty acid profile. INTERPRETIVE INFORMATION: Fatty Acids Profile, Essential Ser/Plas This test does not screen for disorders of peroxisomal biogenesis/function. This test was developed and its performance characteristics determined by [employer]. It has not been cleared or approved by the US Food and Drug Administration. This test was performed in a CLIA certified laboratory and is intended for clinical purposes. Performed By: #### C FAPRO ####[facility]ENVILLECLIA [id number] [place] [address] LAURIC ACID, C12 0 15 nmol/mL Normal 1-200 [facility] Comment on above: Order Comment: Speci men Type: BLOOD SPECIMENOrdering Facility: [facility] Address: [address] [place] [address] Performed By: #### C FAPRO ####[facility]IESCLIA [id number] [place] [address] LINOLEIC ACID, C18 2W6 2565 nmol/mL Normal 3569-4633 [facility] Comment on above: Order Comment: Speci men Type: BLOOD SPECIMENOrdering Facility: [facility] Address: [address] [place] [address] Performed By: #### C FAPRO ####[facility]IESCLIA [id number] [place] [address] MEAD ACID, C20 3W9 7 nmol/mL Normal 1-35 [facility] Comment on above: Order Comment: Speci men Type: BLOOD SPECIMENOrdering Facility: [facility] Address: [address] [place] [address] Performed By: #### C FAPRO ####[facility]ATORIESCLIA [id number] [place] [address] MYRISTIC ACID, C14 0 182 nmol/mL Normal 20-520 [facility] Comment on above: Order Comment: Speci men Type: BLOOD SPECIMENOrdering Facility: [facility] Address: [address] [place] [address] Performed By: #### C FAPRO ####[facility]ATORIESCLIA [id number] [place] [address] NERVONIC ACID, C24 1W9 92 nmol/mL Normal 35-[address] [facility] Comment on above: Order Comment: Speci men Type: BLOOD SPECIMENOrdering Facility: [facility] Address: [address] [place] [address] Performed By: #### C FAPRO ####[facility]ATORIESCLIA [id number] [place] [address] OLEIC ACID, C18 1W9 1998 nmol/mL Normal 740-3900 [facility] Comment on above: Order Comment: Speci men Type: BLOOD SPECIMENOrdering Facility: [facility] Address: [address] [place] [address] Performed By: #### C FAPRO ####[facility]IESCLIA [id number] [place] [address] PALMITIC ACID, C16 0 2712 nmol/mL Normal 6025-[address] [facility] Comment on above: Order Comment: Speci men Type: BLOOD SPECIMENOrdering Facility: [facility] Address: [address] [address] Performed By: #### C FAPRO ####[facility]ORATORIESCLIA [id number] [place] [address] PALMITOLEIC ACID, C16 1W7 293 nmol/mL Normal 35-580 [facility] Comment on above: Order Comment: Speci men Type: BLOOD SPECIMENOrdering Facility: [facility] Address: [address] [place] [address] Performed By: #### C FAPRO ####[facility]ATORIESCLIA [id number] [place] [address] STEARIC ACID, C18 0 547 nmol/mL Normal 280-1250 [facility] Comment on above: Order Comment: Speci men Type: BLOOD SPECIMENOrdering Facility: [facility] Address: [address] [place] [address] Performed By: #### C FAPRO ####[facility]ATORIESCLIA [id number] [place] [address] TOTAL FATTY ACIDS 9.5 mmol/L Normal 4.5-15.0 [facility] Comment on above: Order Comment: Speci men Type: BLOOD SPECIMENOrdering Facility: [facility] Address: [address] [place] [address] Performed By: #### C FAPRO ####[facility]ORATORIESCLIA [id number] [place] [address] TOTAL MONOUNSATURATED ACIDS 2.6 mmol/L Normal 0.9-4.7 [facility] Comment on above: Order Comment: Speci men Type: BLOOD SPECIMENOrdering Facility: [facility] Address: [address] [place] [address] Performed By: #### C FAPRO ####[facility]ATORIESCLIA [id number] [place] [address] TOTAL POLYUNSATURATED ACIDS 3.5 mmol/L Normal 2.1-6.2 [facility] Comment on above: Order Comment: Speci men Type: BLOOD SPECIMENOrdering Facility: [facility] Address: [address] [address] Performed By: #### C FAPRO ####[facility]ATORIESCLIA [id number] [place] [address] TOTAL SATURATED ACIDS 3.5 mmol/L Normal 1.5-5.3 [facility] Comment on above: Order Comment: Speci men Type: BLOOD SPECIMENOrdering Facility: [facility] Address: [address] [address] Performed By: #### C FAPRO ####[facility]ORATORIESCLIA [id number] [place] [address] TOTAL W3 0.25 mmol/L Normal 0.12-0.55 [facility] Comment on above: Order Comment: Speci men Type: BLOOD SPECIMENOrdering Facility: [facility] Address: [address] [place] [address] Performed By: #### C FAPRO ####[facility]ORATORIESCLIA [id number] [place] [address] TOTAL W6 3.2 mmol/L Normal 1.8-5.7 [facility] Comment on above: Order Comment: Speci men Type: BLOOD SPECIMENOrdering Facility: [facility] Address: [address] [place] [address] Performed By: #### C FAPRO ####[facility]ORATORIESCLIA [id number] [place] [address] TRIENE/TETRAENE RATIO 0.018 Normal 0.004- 0.05 1 [facility] Comment on above: Order Comment: Speci men Type: BLOOD SPECIMENOrdering Facility: [facility] Address: [address] [place] [address] Performed By: #### C FAPRO ####[facility]ORATORIESCLIA [id number] [place] [address] VACCENIC ACID, C18 1W7 156 nmol/mL Normal 50-250 [facility] Comment on above: Order Comment: Speci men Type: BLOOD SPECIMENOrdering Facility: [facility] Address: [address] [address] Performed By: #### C FAPRO ####[facility] LABORATORIESCLIA [id number] [place] [address] FERRITIN BLDon 06-10-2022 Ferritin [Mass/Vol] 119.0 ng/mL 14.7 - 205.1 ng/mL [facility] FOLIC ACID RBCon 06-10-2022 RBC FOLATE 1236 ng/mL Normal >=366 [facility] Comment on above: Order Comment: Speci men Type: BLOOD SPECIMENOrdering Facility: [facility] Address: [address] [address] Result Comment: Perf ormed By: [employer] [address] Refractory Bricklayer: Roni Fleming MD, PhD Performed By: #### F OLRBC ####[facility]ORATORIESCLIA [id number] [place] [address] Ferritin SerPl-mCncon 2022 Ferritin [Mass/Vol] 119.0 ng/mL Normal 14.7-205.1 [facility] Comment on above: Order Comment: Speci men Type: BLOOD SPECIMENOrdering Facility: [facility] Address: [address] [address] Performed By: #### 1 988-5, 2132-9, 2276-4, 56736-4 ####[facility] [id number] [facility] [id number] [address] [place] Iron and Iron binding capaci ty panelon 06-10-2022 Iron [Mass/Vol] 124 ug/dL 41 - 186 ug/dL [facility] Iron binding capacity [Mass/Vol] 343 ug/dL 232 - 386 ug/dL [facility] Iron/TIBC [Molar ratio] 36.2 % 15.0 - 57.0 % [facility] Iron [Mass/Vol] 124 ug/dL Normal 41-186 [facility] Comment on above: Order Comment: Speci men Type: BLOOD SPECIMENOrdering Facility: [facility] Address: [address] [address] Performed By: #### 1 988-5, 2-9, 6-4, 95192-7 ####[facility] LABCLIA [id number] [place] [id number] [place] Iron binding capacity [Mass/Vol] 343 ug/dL Normal 232-386 [facility] Comment on above: Order Comment: Speci men Type: BLOOD SPECIMENOrdering Facility: [facility] Address: [address] Performed By: #### 1 988-5, 9, 6-4, 71998-7 ####[facility] LABIA [id number] [place] [address] [place] Iron/TIBC [Molar ratio] 36.2 % Normal 15.0-57.0 [facility] Comment on above: Order Comment: Speci men Type: BLOOD SPECIMENOrdering Facility: [facility] Address: [place] [address] Performed By: #### 1 988-5, 9, 6-4, 97795-5 ####[facility]IA [id number] [place] [id number] [place] MAGNESIUM BLDon 06-10-2022 Magnesium [Mass/Vol] 2.2 mg/dL 1.7 - 2 .3 mg/dL [facility] Magnesium SerPl-mCncon 06-10 Magnesium [Mass/Vol] 2.2 mg/dL Normal 1.7-2.3 [facility] Comment on above: Order Comment: Speci men Type: BLOOD SPECIMENOrdering Facility: [facility] Address: [address] Performed By: #### 2 4323-8, 10060-2, 2777-1 ####[facility] JONATHAN DEWEYMARCILIA [id number] [place] [address] [place] Methylmalonate SerPl-sCncon 06-10-2022 Methylmalonate [Moles/Vol] 125 nmol/L Normal 79-376 [facility] Comment on above: Order Comment: Glenroy irizarry Type: BLOOD SPECIMENOrdering Facility: [facility] Address: [address] [place], [place] [address] Result Comment: This test was developed and its performance characteristics determined by [facility]'s [facility] [place] (RT-PLMI). It has not been cleared or approved by the FDA. [facility] is regulated under CLIA as qualified to perform high-complexity testing. This test is used for clinical purposes. It should not be regarded as investigational or for research. Performed By: #### 1 3964-2 ####[facility] LABCLIA [id number] [place] [address] [place] PHOSPHORUS INORGANICon 06-10 Phosphate [Mass/Vol] 3.6 mg/dL 2.7 - 4 .8 mg/dL [facility] PT panel Coag (PPP)on 2022 INR Coag (PPP) [Relative time] 0.9 {INR} Normal 0.9-1.3 [facility] Comment on above: Order Comment: Glenroy irizarry Type: BLOOD SPECIMENOrdering Facility: [facility] Address: [address] [id number] Result Comment: Courtney min K Antagonist (VKA) Therapeutic Range: INR 2 to 3 (Target INR of 2.5) Note: For patients treated with VKA drugs, such as warfarin, the [place] [employer] 2012 Guideline recommends [...] Chest 2012, 141:7S-47S Maday RA, et al. [facility] 2017, 70: 252-289 Performed By: #### 3 4528-0 ####[facility] [id number] [place] [address] [place] PT Coag (PPP) [Time] 9.3 s Normal <13.1 [facility] Comment on above: Order Comment: Speci men Type: BLOOD SPECIMENOrdering Facility: [facility] Address: [address] [place] [address] Performed By: #### 3 4528-0 ####[facility] ER [id number] [address] [place] INR Coag (PPP) [Relative time] 0.9 {INR} 0.9 - 1.3 [facility] PT Coag (PPP) [Time] 9.3 s <13.1 sec [facility] Phosphate SerPl-[facility] 06-10 Phosphate [Mass/Vol] 3.6 mg/dL Normal 2.7-4.8 [facility] Comment on above: Order Comment: Speci men Type: BLOOD SPECIMENOrdering Facility: [facility] Address: [address] [place] [address] Performed By: #### 2 4323-8, 98880-4, 2777-1 ####[facility] [id number] [address] [place] Selenium Bld-ncon 06-10-19 23 Selenium (Bld) [Mass/Vol] 177.8 ug/L Normal 58.0-234.0 [facility] Comment on above: Order Comment: Speci men Type: BLOOD SPECIMENOrdering Facility: [facility] Address: [address] [place] [address] Result Comment: This test was developed and its performance characteristics determined by [facility]'s [facility] [place] ([facility]). It has not been cleared or approved by the FDA. [facility] is regulated under CLIA as qualified to perform high-complexity testing. This test is used for clinical purposes. It should not be regarded as investigational or for research. Performed By: #### 5 722-4 ####[facility]IA [id number] [place] [address] [place] VITAMIN B12 BLOODon 06-10-19 23 Cobalamin (Vitamin B12) [Mass/Vol] High 232 - 1,245 pg/mL [facility] Vit A SerPl-mCncon 3 Retinol [Mass/Vol] 0.87 mg/L Normal 0.30-1.20 [facility] Comment on above: Order Comment: Speci men Type: BLOOD SPECIMENOrdering Facility: [facility] Address: [address] [place] [address] Result Comment: This test was developed and its performance characteristics determined by [facility]'s [facility] [place] ([facility]). It has not been cleared or approved by the FDA. [facility] is regulated under CLIA as qualified to perform high-complexity testing. This test is used for clinical purposes. It should not be regarded as investigational or for research. Performed By: #### 2 923-1, 1823-4 ####[facility] [id number] [place] [address] [place] Vit B12 SerPl-mCncon 023 Cobalamin (Vitamin B12) [Mass/Vol] pg/mL High 232-1245 [facility] Comment on above: Order Comment: Speci men Type: BLOOD SPECIMENOrdering Facility: [facility] Address: [address] [place] [address] Performed By: #### 1 988-5, 2132-9, 2276-4, 76915-7 ####[facility] [id number] [place] [address] [place] Zinc SerPl-mCncon 06-10-2022 Zinc [Mass/Vol] 59 ug/dL Low 60-120 [facility] Comment on above: Order Comment: Speci men Type: BLOOD SPECIMENOrdering Facility: [facility] Address: [address] [place] [address] Result Comment: This test was developed and its performance characteristics determined by [facility]'s [facility] [place] (RTPLMD). It has not been cleared or approved by the FDA. [facility] is regulated under CLIA as qualified to perform high-complexity testing. This test is used for clinical purposes. It should not be regarded as investigational or for research. Performed By: #### C SILVIA, 5763-8 ####[facility] LABCLIA [id number] BENITO VENTURA [id number] [place], [place] [id number] [place] CNOVon 06-07-2022 CNOV Office Visit (GASTA5 ) -- MADELYN LOVE ([id number]) 1945 F Date Time Provider Department 06/07/22 2:00 PM LYNNE KEY GASTA5 During your visit today, we recorded the following information about you: Temperature Pulse Blood pressure Weight 97.6 degrees 66/minute 156/54 63.7 kg Height 1.257 m Lynne Key MD 06/14/2022 6:57 PM Signed SMALL BOWEL DISEASES AND NUTRITION NEW ENCOUNTER Date of direct communication: 05/31/22 IMPRESSION: Madelyndesirae Love is a 76 year old female [...] sooner if needed Lynne Key MD 05/31/22 1107 Staff Wood Pole Treater [facility] [place] [facility] , REFERRING PROVIDER: Aakash Bryan [address] [facility] [address] REASON FOR REFERRAL: S/p RYGB, intestinal malabsorption, [...] subtilis-inulin 1.5 (more content not included)... Normal [facility] Basophil percentageon 2021 Bilirubin [Mass/Vol] 0.40 mg/dL 0.20-1.00 [facility] Work Phone: Comment on above: For patients on eltr ombopag therapy, use of Dimension Agra TBIL is not recommended. Chloride [Moles/Vol] 109 mmol/L 98-107 [facility] Work Phone: Glucose [Mass/Vol] 272 mg/dL 74-106 [facility] Work Phone: Comment on above: Glucose result great er than or equal to 200 mg/dLsuggests DIABETES MELLITUS per A.D.A. criteria. Potassium [Moles/Vol] 4.1 mmol/L 3.5-5.1 [facility] Work Phone: Protein [Mass/Vol] 6.3 g/dL 6.4-8.2 [facility] Work Phone: Sodium [Moles/Vol] 137 mmol/L 136-145 [facility] Work Phone: Laboratory - Chemistry and C hemistry - challengeon 05-28-2022 ALP [Catalytic activity/Vol] 63 U/L 45-117 [facility] Work Phone: ALT [Catalytic activity/Vol] 31 U/L 13-56 [facility] Work Phone: CO2 [Moles/Vol] 22.0 mmol/L 21.0-32.0 [facility] Work Phone: Globulin (S) [Mass/Vol] 3.0 g/dL 2.2-4.2 [facility] Work Phone: Urea nitrogen/Creatinine [Mass ratio] 15.0 mg/mg 10-20 [facility] Work Phone: No Panel Informationon 05-28 Estimated GFR (MDRD) Amer 82 mL/min >60 [facility] Work Phone: Comment on above: GFR Calc Estimated GFR (MDRD) Non-Af Amer 68 mL/min >60 [facility] Work Phone: Comment on above: Non- GFR Calc Serum or plasma albumin shane urement (mass/volume)on 05-28-2022 Albumin [Mass/Vol] 3.3 g/dL 3.2-5.0 [facility] Work Phone: Serum or plasma albumin/glob ulin mass ratioon 05-28-2022 Albumin/Globulin [Mass ratio] 1.1 {ratio} 0.9-2.4 [facility] Work Phone: Serum or plasma calcium shane urement (mass/volume)on 05-28-2022 Calcium [Mass/Vol] 7.8 mg/dL 8.5-10.1 [facility] Work Phone: Serum or plasma creatinine m easurement (mass/volume)on 05-28-2022 Creatinine [Mass/Vol] 0.86 mg/dL 0.55-1.02 [facility] Work Phone: Comment on above: The validity of the calculated GFR & GFRAA in patients over 70 years has not been determined. Clinical correlation is essential. Serum or plasma urea nitroge n measurement (mass/volume)on 05-28-2022 Urea nitrogen [Mass/Vol] 13 mg/dL 7-18 [facility] Work Phone: Thin prep Papanicolaou smear with manual screeningon 05-28-2022 Thin prep Papanicolaou smear with manual screening 20 U/L 15-37 [facility] Work Phone: Thin prep Papanicolaou smear with manual screening 6 5-15 [facility] Work Phone: Whole blood hemoglobin A1c/t otal hemoglobin ratio (mass fraction)on 05-28-2022 HbA1c (Bld) [Mass fraction] 6.6 % 3.8-5.6 [facility] Work Phone: Comment on above: Normal < 5.7 % Predi abetic 5.7 - 6.4 % Diabetic >or= 6.5 % Please note range changes. No Panel Informationon 05-07 Miscellaneous Test See comment [facility] Work Phone: Comment on above: SALMONELLA/SHIGELLA SCREEN FINAL REPORTRESULT 1 NO SALMONELLA OR SHIGELLA RECOVEREDCAMPYLOBACTER CULTURE FINAL REPORTRESULT 1 NO CAMPYLOBACTER SPECIES ISOLATEDE COLI SHIGA TOXIN EIA NEGATIVE(Reference Interval=Negative) TESTING PERFORMED AT [facility]. ORIGINAL REPORT ON FILE IN LAB CONTAINS [...] salt-induced diarrhea; MICHAEL = N; Sent To: [facility] Diarrhea STOOL PATHOGEN PCR PANEL; Status:Active; Requested for:[id number]; Perform:Lab Services - Lab To Draw (Non-Blood Test); Due:[id number];Ordered; For:Diarrhea; Ordered By:Marilia Stubbs; Provider Impressions I [...] due to extreme diarrhea. History of Present IllnessLigia is seen today in follow-up. She underwent [...] Wynn in November of this year at [facility] she underwent EGD at that time was [...] colonoscopy performed by Dr. Dolores Doll at [facility] in [place] she noted there is a small hiatal hernia that her gastric pouch and E ferret limb were healthy biopsies were taken. Colonoscopy was normal although prep was fair to the cecum and random biopsies were taken throughout the colon it was noted that her rectal tone was poor and she had some internal hemorrhoids. Patient is recently seen Dr. Nam Neal at [facility] for consideration of reversal gastric bypass he [...] hernia (5 (more content not included)... Normal [facility] ANES PRE-OPon 05-02-2022 ANES PRE-OP HNO ID: [id number] Author: Kyra Leiva MD Service: Anesthesiology Author [...] and consent discussed: yes. Patient / Responsible Libertarian agrees to proceed: yes Patient / Surrogate [...] mg tablet Take by mouth. - Ipratropium [place] (ATROVENT) 21 mcg (0.03 %) nasal spray [...] - pre (more content not included)... Normal [facility] BRIEF OP NOTon 05-02-2022 BRIEF OP NOT HNO ID: [id number] Author: Dolores Doll MD Service: General Surgery Author Type: Physician Type: Brief Op Note Filed: 05/02/2022 12:07 PM Note Text: BRIEF OPERATIVE NOTE SURGERY DATE: 05/02/2022 Incision/Procedure Start Time: 11:32 cecal intubation time: 11:54 Incision Close/Procedure End Time: 12:02 Surgeon(s)/Proceduralist(s ) and Glaze Carrier(s): bisi Procedures: EGD with biopsies Colonoscopy with [...] May 02, 2022 TIME: 12:04 PM Acct: [id number] Normal [facility] HISTORY PHYSICALon HISTORY PHYSICAL HNO ID: [id number] Author: Dolores Doll MD Service: General Surgery [...] been followed by gastroenterology-Dr. Marilia Cheung at [facility]. She was last seen by him [...] for arthritis. She was apparently hospitalized at [facility] for this. She has been given [...] heart failure, unspecified DR. Alfredito JOVEL IN [place] Cystocele, unspecified (CODE) Diverticulosis of colon (without [...] heart cath (more content not included)... Normal [facility] NURSING PROGon 05-02-2022 NURSING PROG HNO ID: [id number] Author: Genny Cain RN Service: Nursing Author Type: Registered Nurse Type: Nursing Progress Note Filed: 05/02/2022 1:25 PM Note Text: Discharge instructions were reviewed with patient's spouse KATI. Spouse verbalized understanding. No questions or concerns were voiced at this time. Normal [facility] NURSING PROG HNO ID: [id number] Author: Genny Cain RN Service: Nursing Author Type: Registered Nurse Type: Nursing Progress Note Filed: 05/02/2022 1:23 PM Note Text: Discharge instructions were reviewed with patient. Pt verbalized understanding. No questions or concerns were voiced at this time. Normal [facility] NURSING PROG HNO ID: [id number] Author: Genny Cain, RN Service: Nursing Author Type: Registered Nurse Type: Nursing Progress Note Filed: 05/02/2022 12:38 PM Note Text: Pt received to pacu awake and alert. All treatments and procedures were explained. Pt verbalized understanding. Normal [facility] OPERATIVE NOon 05-02-2022 OPERATIVE NO HNO ID: [id number] Author: Dolores Doll MD Service: General Surgery Author Type: Physician Type: Operative Report Filed: 05/03/2022 8:23 AM Note Text: [facility] - Operative Report - MADELYN Colon : 1945 AGE: 76. SEX: F PATIENT TYPE: O HOSP SVC: GENS LOCATION: [facility] ATTENDING PHYSICIAN: Dolores Doll MD CSN NUMBER: [id number] DATE OF SURGERY/PROCEDURE: 05/02/2022 INCISION/PROCEDURE START TIME: 11:32 AM INCISION CLOSE/PROCEDURE END TIME: 12:02 PM PREOPERATIVE DIAGNOSIS: Diarrhea, acid reflux, status post Shani-en-Y gastric bypass. POSTOPERATIVE DIAGNOSIS: Patent Shani-en-Y gastric bypass and normal colon except for hemorrhoids. SURGEON: Dolores Doll MD MARBLE MACHINE TENDER: No Additional Staff SURGERY/PROCEDURE: Esophagogastroduodenoscopy with biopsies and colonoscopy with random mucosal biopsies. ANESTHESIA: Use monitored anesthesia care. LOCATION: [facility]. INDICATIONS: Madelyn Love is a 76-year-old female [...] LOSS: Minimal. COMPLICATIONS: None. Dolores Doll MD LW:[id number] /[id number] Normal [facility] SURGICAL PATHOLOGYon 022 CASE REPORT Normal [facility] Comment on above: Order Comment: Speci men Type: TISSUE SPECIMEN Ordering Facility: [facility] Address: [address] [place], [place] [id number] Result Comment: Surg ica Pathology Report Case: [id number] Authorizing Provider: Dolores Doll MD Collected: 05/02/2022 11:34 AM Ordering Location: SURGERY Received: 05/03/2022 12:47 PM Pathologist: Jeffrey Mesa MD Specimens: A) - POUCH BIOPSY, Gastric Pouch Biopsy B) - ESOPHAGOGASTRIC JUNCTION BIOPSY C) - COLON BIOPSY, Random Mucosal Biopsies Performed By: #### S #### [facility] CLIA [id number] [address] [place] [address] CLINICAL HISTORY Diarrhea, acid reflu x, status post Shani-en-Y gastric bypass. [facility] Comment on above: Order Comment: Speci men Type: TISSUE SPECIMEN Ordering Facility: [facility] Address: [address] [place] [address] Performed By: #### S #### [facility] CLIA [id number] [address] [place] [address] FINAL DIAGNOSIS [facility] Comment on above: Order Comment: Speci men Type: TISSUE SPECIMEN Ordering Facility: [facility] Address: [address] [place] [address] Result Comment: A. S tomach, gastric pouch, [...] histopathologic abnormality. Performed By: #### S #### [facility] CLIA [id number] [address] [place] [address] FINAL PERFORMING LAB Normal [facility] Comment on above: Order Comment: Speci men Type: TISSUE SPECIMEN Ordering Facility: [facility] Address: [address] [place] [address] Result Comment: Diag nostic interpretation performed at [facility], [address] [place] [address] CLIA# [id number] Refractory Bricklayer: Hugo Singleton M.D. Performed By: #### S #### [facility] CLIA [id number] [address] [place] [address] GROSS DESCRIPTION A. POUCH BIOPSY Normal [facility] Comment on above: Order Comment: Speci men Type: TISSUE SPECIMEN Ordering Facility: [facility] Address: [facility] [place] [id number] Result Comment: A. R eceived in formalin [...] and one cassette. Gross examination performed at [facility], [address] [place] [address] KVB May 03, 2022 3:33 PM Performed By: #### S #### [facility] CLIA [id number] [address] [place] Basophil percentageon 2021 Basophil percentage 4.2 mg/dL 2.5-4.9 [place] [facility] Work Phone: Chloride [Moles/Vol] 101 mmol/L 98-[address] [facility] Work Phone: Glucose [Mass/Vol] 132 mg/dL 74-106 [place] [facility] Work Phone: Comment on above: Fasting Glucose resu lt greater than or equal to 126 mg/dL suggests DIABETES MELLITUS per A.D.A. criteria. Potassium [Moles/Vol] 4.6 mmol/L 3.5-5.1 [place] [facility] Work Phone: Sodium [Moles/Vol] 136 mmol/L 136-145 [facility] Work Phone: CNPConsuelo 04-30-2022 [facility] (GASTA[facility] -- KATEMADELYN ([id number]) 1945 F Date Time Provider Department 04/30/22 LYNNE KEY GASTA5 During your visit today, we recorded the following information about you: Tiara Plaza LPN 04/30/2022 1:08 PM Signed LVM to schedule an appointment per request from Dr. Aakash Bryan. H/O Shani-en-Y; malabsorption; SIBO. Tiara Plaza ST[facility]FF [facility]ARMAC[facility] 04/30/2022 4:25 PM Signed Spoke with patient and . Patient unable to have morning appointment due to bowel issues. Scheduled 1st available afternoon appointment on 06/07/22 at 2:00 pm. Patient request a paper appointment reminder. Patient and understands and agrees with plan. [facility]ara [facility] Allergies As of Date: 04/30/2022 Noted Allergy [...] in the nose q 24 HR. - Ztevrxryq-Yraoliljnodjmu-A apple 3-2.5 % (7 gram) kit by RECTAL route. - Ipratropium [place]ifee (ATROVENT) 21 mcg (0.03 %) nasal spray [...] ORAL) Take by mouth once daily. - tpgjgy-axfpazfy-lipglbk (CREON 36) 36,000-114,000- 180,000 unit capsule Take [...] once daily. (more content not included)... Normal [facility] Laboratory - Chemistry and C hemistry - challengeon 04-30-2022 CO2 [Moles/Vol] 27.0 mmol/L 21.0-32.0 [facility] Work Phone: Urea nitrogen/Creatinine [Mass ratio] 29.8 mg/mg 10-20 [facility] Work Phone: No Panel Informationon 04-30 Estimated GFR (MDRD) Amer 85 mL/min >60 [facility] Work Phone: Comment on above: GFR Calc Estimated GFR (MDRD) Non-Af Amer 70 mL/min >60 [facility] Work Phone: Comment on above: Non- GFR Calc Urine Microalbumin/Creatinine Ratio 306.7 mg/g CRE <30 [facility] Work Phone: Serum or plasma albumin shane urement (mass/volume)on 04-30-2022 Albumin [Mass/Vol] 3.6 g/dL 3.2-5.0 [facility] Work Phone: Serum or plasma calcium shane urement (mass/volume)on 04-30-2022 Calcium [Mass/Vol] 8.6 mg/dL 8.5-10.1 [facility] Work Phone: Serum or plasma creatinine m easurement (mass/volume)on 04-30-2022 Creatinine [Mass/Vol] 0.84 mg/dL 0.55-1.02 [facility] Work Phone: Comment on above: The validity of the calculated GFR & GFRAA in patients over 70 years has not been determined. Clinical correlation is essential. Serum or plasma urea nitroge n measurement (mass/volume)on 04-30-2022 Urea nitrogen [Mass/Vol] 25 mg/dL 7-18 [facility] Work Phone: Thin prep Papanicolaou smear with manual screeningon 04-30-2022 Thin prep Papanicolaou smear with manual screening 169.0 mg/L NO RANGE EST. [facility] Work Phone: Urine creatinine measurement (mass/volume)on 04-30-2022 Creatinine (U) [Mass/Vol] 55.10 mg/dL NO RANGE EST. [facility] Work Phone: CNOVon 04-29-2022 CNOV Office Visit (GENBMI ) -- MADELYN LOVE ([id number]) 1945 F Date Time Provider Department 04/29/22 9:10 AM AAKASH BRYAN During your visit today, we recorded the following information about you: Pulse Blood pressure Weight Height 78/minute 136/76 62.8 kg 1.425 m Aakash Bryan MD 04/29/2022 4:09 PM [address] [facility] DEPART[facility] SURGERY NAME: Madelyn Love CLINIC NO: [id number] DATE OF SERVICE: April 29, 2022 CHIEF [...] been followed by gastroenterology-Dr. Marilia Cheung at [facility]. She was last seen by him [...] for arthritis. She was apparently hospitalized at [facility] for this. She has been given [...] heart failure, unspecified DR. Alfredito JOVEL IN [place] Cystocele, unspecified (CODE) Diverticulosis of colon (without [...] RLS 198 (more content not included)... Normal [facility] CNPNon 03-26-2022 CNPN Telephone (GENBMI) -- MADELYN LOVE ([id number]) 1945 F Date Time Provider Department [facility] During your visit today, we recorded the following information about you: Ligia Juarez RN 03/26/2022 5:19 PM Signed Received referral request from Renzo Callejas MD. Patient accepted 10104-29-22 in person visit with and will bring [...] ORAL) Take by mouth once daily. - svcnbr-gmdyyrbx-fglchrp (CREON 36) 36,000-114,000- 180,000 unit capsule Take [...] Estradiol ESTRACE CREA As needed as directed [id number] Ami Rios 01-25-2019 [facility] ([id number]) - amLODIPine (NORVASC) 2.5 mg tablet Take [...] Status:Closed by LIGIA JUAREZ on 03/26/22 [facility] Basophil percentageon 2021 Cholesterol [Mass/Vol] 159 mg/dL <200 [facility] Work Phone: Comment on above: <200 mg/dL Desirable 200-240 mg/dL Borderline >240 mg/dL High Risk Triglyceride [Mass/Vol] 154 mg/dL <199 [facility] Work Phone: Comment on above: The drugs N-Acetylcy steine and Metamizole may falsely depress this assay.Serum Triglycerides Reference Interval Normal <150 mg/dL Borderline high 150 - 199 mg/dL High 200 - 499 mg/dL Very High > or = 500 mg/dL Serum or plasma cholesterol in HDL measurement (mass/volume)on 03-20-2022 Cholesterol in HDL [Mass/Vol] 72 mg/dL >40 [facility] Work Phone: Comment on above: The drugs N-Acetylcy steine and Metamizole may falsely depress this assay. Reference Range HDL <40 mg/dL Low HDL Cholesterol HDL >or= 60 mg/dL High HDL Cholesterol Serum or plasma cholesterol in VLDL measurement (mass/volume)on 03-20-2022 Cholesterol in VLDL [Mass/Vol] 31 mg/dL 5-40 [facility] Work Phone: Serum or plasma low density lipoprotein (LDL) cholesterol measurement (mass/volume)on 03-20-2022 Cholesterol in LDL [Mass/Vol] 56 mg/dL 0-130 [facility] Work Phone: CNPNon 03-14-2022 [employer] Telephone (GERS) -- MADELYN LOVE ([id number]) 1945 F Date Time Provider Department 03/14/22 RENZO CALLEJAS GERS During your visit today, we recorded the following information about you: Dasha Toledo, RN 03/14/2022 1:48 PM Signed Madelyn and her stopped in. Madelyn had her CT scan of her abdomen and pelvis completed on 03/14/2022. 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 She did have an upper GI with small bowel and [facility] in 2019. She also had an EGD and colonoscopy in 2019 at [facility] by Dr. Wynn. They are leaving for [place] on 03/23/2022 and will not be home [...] colonoscopy 10/21/2022 due to her being in [place] From 05/07/2022 till September 2022. Patient was wanting to try to get in before she leaves in May but there is no open availability in [place] for this patient to be done but Dr. Callejas. She wishes to try to get into [facility] before then. Patient is on waitlist for [facility] in [place] if any spots was to open up before she leaves by then Please advise Aundrea Jimenez Poultry Process Worker Aundrea Jimenez 03/18/2022 11:34 AM Addendum Patient accepted sooner procedure date 05/02/[address] [place] [address] Bisi Callejas please change orders to [place] so I may add to schedule Thank you Aundrea Jimenez Poultry Process Worker Please send prep Lola to [facility] in [place] on Back [facility] Allergies As of Date: 03/14/2022 Noted Allergy [...] in the nose q 24 HR. - Rfldqsulm-Zxvmmwkgmpzbix-M apple 3-2.5 % (7 gram) kit by RECTAL route. - Ipratropium [place]e (ATROVENT) 21 mcg (0.03 %) nasal spray [...] - ascorb (more content not included)... Normal [facility] Basophil percentageon 2021 Bilirubin [Mass/Vol] 0.40 mg/dL 0.20-1.00 [facility] Work Phone: Comment on above: For patients on eltr ombopag therapy, use of Dimension Agra TBIL is not recommended. Chloride [Moles/Vol] 99 mmol/L 98-107 [facility] Work Phone: Glucose [Mass/Vol] 254 mg/dL 74-106 [facility] Work Phone: Comment on above: Glucose result great er than or equal to 200 mg/dLsuggests DIABETES MELLITUS per A.D.A. criteria. Potassium [Moles/Vol] 4.0 mmol/L 3.5-5.1 [facility] Work Phone: Protein [Mass/Vol] 6.9 g/dL 6.4-8.2 [facility] Work Phone: Sodium [Moles/Vol] 135 mmol/L 136-145 [facility] Work Phone: [facility] 03-12-2022 Creatinine [Mass/Vol] 0.74 mg/dL Normal 0.58-0.96 [facility] Comment on above: Order Comment: Speci men Type: BLOOD SPECIMENOrdering Facility: [facility] Address: [address] [place] [address] Performed By: #### C RET1 ####[facility] [id number] [address] ESTIMATED GLOMERULAR FILTRATION RATE 84 mL/min/1.73m??? Normal >=60 [facility] Comment on above: Order Comment: Speci men Type: BLOOD SPECIMENOrdering Facility: [facility] Address: [facility] [place] [id number] Result Comment: Sanna mated Glomerular Filtration Rate [...] actual GFR. Performed By: #### C RET1 ####[facility] ER [id number] [address] OF ANT CT ABD/PEL W IVCONon 03-12-[address] ABD/PEL W IVCON * * *Final Report* * * DATE OF EXAM: Mar 12 2022 2:28PM [facility] 0530 - CT ABD/PEL W IVCON / [...] Lower thorax: No pleural effusion or consolidation Shot Bagger (topogram) images: No additional findings. IMPRESSION: 1. No acute pathology. No mass or lymphadenopathy. 2. Small sliding hiatal hernia [employer] Internship: ALESHA Transcribe Date/Time: Mar 14 2022 12:00P Dictated by : OLIVER HOLLEY MD This examination was interpreted and the report reviewed and electronically signed by: OLIVER HOLLEY MD on Mar 14 2022 12:11PM EST [id number] Normal [facility] Laboratory - Chemistry and C hemistry - challengeon 03-12-2022 ALP [Catalytic activity/Vol] 57 U/L 45-117 [facility] Work Phone: ALT [Catalytic activity/Vol] 39 U/L 13-56 [facility] Work Phone: CO2 [Moles/Vol] 27.0 mmol/L 21.0-32.0 [facility] Work Phone: Globulin (S) [Mass/Vol] 3.6 g/dL 2.2-4.2 [facility] Work Phone: Urea nitrogen/Creatinine [Mass ratio] 22.8 mg/mg 10-20 [facility] Work Phone: No Panel Informationon 03-12 Estimated GFR (MDRD) Amer 69 mL/min >60 [facility] Work Phone: Comment on above: GFR Calc Estimated GFR (MDRD) Non-Af Amer 57 mL/min >60 [facility] Work Phone: Comment on above: Non- GFR Calc Serum or plasma albumin shane urement (mass/volume)on 03-12-2022 Albumin [Mass/Vol] 3.3 g/dL 3.2-5.0 [facility] Work Phone: Serum or plasma albumin/glob ulin mass ratioon 03-12-2022 Albumin/Globulin [Mass ratio] 0.9 {ratio} 0.9-2.4 [facility] Work Phone: Serum or plasma calcium shane urement (mass/volume)on 03-12-2022 Calcium [Mass/Vol] 8.7 mg/dL 8.5-10.1 [facility] Work Phone: Serum or plasma creatinine m easurement (mass/volume)on 03-12-2022 Creatinine [Mass/Vol] 1.01 mg/dL 0.55-1.02 [facility] Work Phone: Comment on above: The validity of the calculated GFR & GFRAA in patients over 70 years has not been determined. Clinical correlation is essential. Serum or plasma urea nitroge n measurement (mass/volume)on 03-12-2022 Urea nitrogen [Mass/Vol] 23 mg/dL 7-18 [facility] Work Phone: Thin prep Papanicolaou smear with manual screeningon 03-12-2022 Thin prep Papanicolaou smear with manual screening 20 U/L 15-37 [facility] Work Phone: Thin prep Papanicolaou smear with manual screening 9 5-15 [facility] Work Phone: Whole blood hemoglobin A1c/t otal hemoglobin ratio (mass fraction)on 03-12-2022 HbA1c (Bld) [Mass fraction] 6.6 % 3.8-5.6 [facility] Work Phone: Comment on above: Normal < [...] high prices for it. History of Present IllnessLigia is a pleasant 76-year-old female has been [...] for arthritis. She was actually hospitalized at [facility] in [place] and is now recovered. She does have mild early dementia which is controlled with Aricept. She is accompanied by her today. She is currently being evaluated by Dr. Alexandre at [facility] for possible takedown of her bariatric [...] DAY Furosemide 20 MG Oral Tablet Ipratropium Menifee 0.03 % Nasal Solution Jardiance 10 MG Oral Tablet Kerendia 10 MG Oral Tablet Lasix TABS Lidocaine-Hydrocortisone Bairon 3-2.5 % Rectal KitUSE DIRECTED. Losartan Potassium 50 MG Oral Tablet Magnesium Oxide 400 MG Oral TabletTAKE 1 TABLET BY MOUTH TWICE A DA (more content not included)... Normal NoWait Marbella 02-28-2022 MARCIA Office Visit (SWS ) -- MADELYN LOVE ([id number]) 1945 F Date Time Provider Department 02/28/22 1:55 PM RENZO CALLEJAS During your visit today, we recorded the following information about you: Temperature Pulse Respiration Blood pressure 97.6 degrees 84/minute 14/minute 168/60 Weight Height 63 kg 1.461 m Marcela Paul [facility] 03/14/2022 6:17 AM Signed REVIEW OF SYSTEMS: [...] 6:38 AM Addendum HISTORY AND PHYSICAL Madelyn Samano Kate 1945 REFERRING PHYSICIAN: Hugo Julio MD CHIEF [...] been followed by gastroenterology-Dr. Marilia Cheung at [facility]. She was last seen by him [...] a psyc (more content not included)... Normal [facility] Huy 02-28-2022 TANVIR Telephone (KEVIN) -- MADELYN LOVE ([id number]) 1945 F Date Time Provider Department 02/28/22 RENZO CALLEJAS During your visit today, we recorded the following information about you: Leyda Griffith LPN 02/28/2022 4:39 PM Signed Requested medical records for [facility] physician group operative notes Jessica Pascal RN 02/28/2022 4:48 PM Signed Medical records requested from Dr. Marilia Stubbs [facility] Kaden Ph. [phone] Fax. [phone] Elissa Klein Ma 03/04/2022 3:45 PM Signed [...] ORAL) Take by mouth once daily. - cdmigq-pyfycegg-rbzpeho (CREON 36) 36,000-114,000- 180,000 unit capsule Take [...] Estradiol ESTRACE CREA As needed as directed [id number] Ami Rios 01-25-2019 [facility] ([id number]) - amLODIPine (NORVASC) 2.5 mg tablet Take [...] of 11/24/2019: PATIENT ON HER WAY TO DR'S OFFICE, UNABLE TO REVIEW MEDS. WILL BRING [...] Status:Closed by LEYDA GRIFFITH on 04/09/22 Normal [facility] XR ABDOMEN 1V SUPINEon 02-28 XR ABDOMEN [...] T10. IMPRESSION: NO ACUTE ABDOMINAL PATHOLOGY VISUALIZED [employer] Internship: PSCB Transcribe Date/Time: Mar 01 2022 11:21A Dictated by : OLIVER HOLLEY MD This examination was interpreted and the report reviewed and electronically signed by: OLIVER HOLLEY MD on Mar 01 2022 11:23AM EST [id number] Normal [facility] Absolute lymphocyte counton 01-16-2022 Lymphocytes Auto (Unsp spec) [#/Vol] 1.54 10*3/uL 0.83-4.51 [facility] Work Phone: Basophil percentageon 2021 Basophils/100 WBC (Bld) 0.5 % 0-1 [facility] Work Phone: Bilirubin [Mass/Vol] 0.40 mg/dL 0.20-1.00 [facility] Work Phone: Comment on above: For patients on eltr ombopag therapy, use of Dimension Agra TBIL is not recommended. Chloride [Moles/Vol] 103 mmol/L 98-107 [facility] Work Phone: Eosinophils/100 WBC (Bld) 0.9 % 0-5 [facility] Work Phone: Glucose [Mass/Vol] 136 mg/dL 74-106 [facility] Work Phone: Comment on above: Fasting Glucose resu lt greater than or equal to 126 mg/dL suggests DIABETES MELLITUS per A.D.A. criteria. Neutrophils (Bld) [#/Vol] 3.5 10*3/uL 2.0-7.7 [facility] Work Phone: Neutrophils/100 WBC (Bld) 62.6 % 47-70 [facility] Work Phone: Potassium [Moles/Vol] 3.7 mmol/L 3.5-5.1 [facility] Work Phone: [phone] Protein [Mass/Vol] 6.2 g/dL 6.4-8.2 [facility] Work Phone: [phone] Sodium [Moles/Vol] 139 mmol/L 136-145 [facility] Work Phone: WBC (Bld) [#/Vol] 5.5 10*3/uL 4.4-11.0 [facility] Work Phone: Blood erythrocytes count (nu mber/volume)on 01-16-2022 RBC (Bld) [#/Vol] 3.73 10*6/uL 4.2-5.4 [facility] Work Phone: Blood hemoglobin measurement (mass/volume)on 01-16-2022 Hemoglobin (Bld) [Mass/Vol] 11.5 g/dL 12.0-15.0 [facility] Work Phone: Blood lymphocytes/100 leukoc yteson 01-16-2022 Lymphocytes/100 WBC (Bld) 27.8 % 19-41 [facility] Work Phone: Blood monocytes/100 leukocyt eson 01-16-2022 Monocytes/100 WBC (Bld) 7.8 % 0-10 [facility] Work Phone: Blood platelet mean volumeon 01-16-2022 Platelet mean volume (Bld) [Entitic vol] 9.7 fL 6.2-12.0 [facility] Work Phone: Determination of erythrocyte mean corpuscular volume (MCV)on 01-16-2022 MCV (RBC) [Entitic vol] 95.4 fL 81-99 [facility] Work Phone: Hematocrit Auto (Bld) [Volum e fraction]on 01-16-2022 Hematocrit (Bld) [Volume fraction] 35.6 % 37-47 [facility] Work Phone: Iron measurement (mass/mass) on 01-16-2022 Iron (Unsp spec) [Mass/Mass] 83 ug/dL 50-170 [facility] Work Phone: Laboratory - Chemistry and C hemistry - challengeon 01-16-2022 ALP [Catalytic activity/Vol] 53 U/L 45-117 [facility] Work Phone: ALT [Catalytic activity/Vol] 29 U/L 13-56 [facility] Work Phone: CO2 [Moles/Vol] 29.0 mmol/L 21.0-32.0 [facility] Work Phone: Globulin (S) [Mass/Vol] 3.0 g/dL 2.2-4.2 [facility] Work Phone: Urea nitrogen/Creatinine [Mass ratio] 18.6 mg/mg 10-20 [facility] Work Phone: Laboratory - Hematology and Cell countson 01-16-2022 Erythrocyte distribution width (RBC) [Entitic vol] 53.6 fL 35.1-43.9 [facility] Work Phone: Erythrocyte distribution width (RBC) [Ratio] 15.3 % 11.6-14.6 [facility] Work Phone: Immature granulocytes/100 WBC (Bld) 0.400 % 0.0-0.9 [facility] Work Phone: Comment on above: IG% - Immature Granu locytes (promyelocytes, myelocytes and metamyelocytes) > 1% indicates that a LEFT SHIFT is Present. MCH (RBC) [Entitic mass] 30.8 pg 27.0-32.0 [facility] Work Phone: Nucleated RBC/100 WBC (Bld) [Ratio] 0 % 0-5 [facility] Work Phone: MCHC Auto (RBC) [Mass/Vol]on 01-16-2022 MCHC (RBC) [Mass/Vol] 32.3 g/dL 32-36 [facility] Work Phone: No Panel Informationon 01-16 Estimated GFR (MDRD) Amer 105 mL/min >60 [facility] Work Phone: Comment on above: GFR Calc Estimated GFR (MDRD) Non-Af Amer 87 mL/min >60 [facility] Work Phone: Comment on above: Non- GFR Calc Parathyroid Hormone (Intact) 54.8 pg/mL 18.4-80.1 [facility] Work Phone: Total Iron Binding Capacity 354 ug/dL 250-450 [facility] Work Phone: Vitamin B12 Level > 2000 pg/mL 211-911 [facility] Work Phone: Vitamin D 25-Hydroxy 59.8 ng/mL [facility] Work Phone: Comment on above: Vitamin D 25(OH) Sta tus Range Deficiency <20 ng/mL (50nmol/L) Insufficiency 20 - 30 ng/mL (50 - 75 nmol/L) Sufficiency 30 - 100 ng/mL (75 - 250 nmol/L) Toxicity >100 ng/mL (>250 nmol/L) Whole Blood Vitamin B1 Level 147.5 nmol/L 66.5-200.0 [facility] Work Phone: Platelets bldon 01-16-2022 Platelets (Bld) [#/Vol] 282 10*3/uL 150-450 [facility] Work Phone: Serum or plasma albumin shane urement (mass/volume)on 01-16-2022 Albumin [Mass/Vol] 3.2 g/dL 3.2-5.0 [facility] Work Phone: Serum or plasma albumin/glob ulin mass ratioon 01-16-2022 Albumin/Globulin [Mass ratio] 1.1 {ratio} 0.9-2.4 [facility] Work Phone: Serum or plasma calcium shane urement (mass/volume)on 01-16-2022 Calcium [Mass/Vol] 8.4 mg/dL 8.5-10.1 [facility] Work Phone: Serum or plasma creatinine m easurement (mass/volume)on 01-16-2022 Creatinine [Mass/Vol] 0.70 mg/dL 0.55-1.02 [facility] Work Phone: Comment on above: The validity of the calculated GFR & GFRAA in patients over 70 years has not been determined. Clinical correlation is essential. Serum or plasma ferritin agustin surement (mass/volume)on 01-16-2022 Ferritin [Mass/Vol] 42 ng/mL 8 [facility] Work Phone: Serum or plasma folate measu rement (mass/volume)on 01-16-2022 Folate [Mass/Vol] 23.20 ng/mL 3.1-55.4 [facility] Work Phone: Serum or plasma iron saturat ion measurement (mass fraction)on 01-16-2022 Iron saturation [Mass fraction] 23.4 % 15.0-55.0 [facility] Work Phone: Serum or plasma urea nitroge n measurement (mass/volume)on 01-16-2022 Urea nitrogen [Mass/Vol] 13 mg/dL 7-18 [facility] Work Phone: Thin prep Papanicolaou smear with manual screeningon 01-16-2022 Thin prep Papanicolaou smear with manual screening 16 U/L 15-37 [facility] Work Phone: Thin prep Papanicolaou smear with manual screening 7 5-15 [facility] Work Phone: Thin prep Papanicolaou smear with manual screening 96 ug/dL 80-158 [facility] Work Phone: Comment on above: Detection Limit = 5P erformed at: [facility] [address] [id number] Director: Joan Ye MD, Phone: [phone] Whole blood hemoglobin A1c/t otal hemoglobin ratio (mass fraction)on 01-16-2022 HbA1c (Bld) [Mass fraction] 6.8 % 3.8-5.6 [facility] Work Phone: Comment on above: Normal < 5.7 % Predi abetic 5.7 - 6.4 % Diabetic >or= 6.5 % Please note range changes. 24 hour urine alpha 2 globul in/total protein ratio by electrophoresis (mass fraction)on 01-04-2022 Alpha 2 globulin Elph (24H U) [Mass fraction] 5.5 % . [facility] Work Phone: 24 hour urine beta globulin/ total protein ratio by electrophoresis (mass fraction)on 01-04-2022 Beta globulin Elph (24H U) [Mass fraction] 11.2 % . [facility] Work Phone: 24 hour urine gamma globulin /total protein ratio by electrophoresis (mass fraction)on 08-05-2022 Gamma globulin Elph (24H U) [Mass fraction] 3.8 % . [facility] Work Phone: Laboratory - Chemistry and C hemistry - challengeon 01-04-2022 Albumin [Mass/Vol] 3.4 g/dL 2.9-4.4 [facility] Work Phone: Magnesium [Mass/Vol] 2.4 mg/dL 1.6-2.6 [facility] Work Phone: No Panel Informationon 01-04 Addendum Document Comment . [facility] Work Phone: Comment on above: The SPE pattern appe ars unremarkable. Evidence ofmonoclonal protein is not apparent. Wcisk-7-Imbexayfn 0.2 g/dL 0.0-0.4 [facility] Work Phone: Uqnwr-5-Feketxzmv 1.0 g/dL 0.4-1.0 [facility] Work Phone: Gamma Globulins 0.7 g/dL 0.4-1.8 [facility] Work Phone: Urine Microalbumin/Creatinine Ratio 773.6 mg/g CRE <30 [facility] Work Phone: Protein Fractions Elph [Inte rp]on 01-04-2022 Protein Fractions [Interp] Comment . [facility] Work Phone: Comment on above: Protein electrophore sis scan will follow via computer,mail, or screw machine operator delivery. Serum albumin to globulin ra jazlyn by protein electrophoresison 01-04-2022 Albumin/Globulin Elph [Mass ratio] 1.1 0.7-1.7 [facility] Work Phone: Serum globulin measurement ( mass/volume)on 01-04-2022 Globulin (S) [Mass/Vol] 3.0 g/dL 2.2-3.9 [facility] Work Phone: Serum or plasma beta globuli n measurement by electrophoresis (mass/volume)on 01-04-2022 Beta globulin Elph [Mass/Vol] 1.0 g/dL 0.7-1.3 [facility] Work Phone: Thin prep Papanicolaou smear with manual screeningon 01-04-2022 Thin prep Papanicolaou smear with manual screening 229.0 mg/L NO RANGE EST. [facility] Work Phone: Thin prep Papanicolaou smear with manual screening See comment [facility] Work Phone: Comment on above: Result: Not Observed Total protein bloodon 2021 Protein [Mass/Vol] 6.4 g/dL 6.0-8.5 [facility] Work Phone: Urine albumin/total protein mass ratio by electrophoresison 01-04-2022 Albumin Elph (U) [Mass fraction] 74.2 % . [facility] Work Phone: Urine alpha 1 globulin/total protein ratio by electrophoresis (mass fraction)on 01-04-2022 Alpha 1 globulin Elph (U) [Mass fraction] 5.2 % . [facility] Work Phone: Urine creatinine measurement (mass/volume)on 01-04-2022 Creatinine (U) [Mass/Vol] 29.60 mg/dL NO RANGE EST. [facility] Work Phone: Urine monoclonal protein/tot al protein mass ratio by electrophoresison 01-04-2022 Protein.monoclonal Elph (U) [Mass fraction] See comment [facility] Work Phone: Comment on above: RESULT: NOT OBSERVED Urine protein measurement (m ass/volume)on 01-04-2022 Protein (U) [Mass/Vol] 28.5 mg/dL Not Estab. [facility] Work Phone: Basophil percentageon 2021 Bilirubin [Mass/Vol] 0.40 mg/dL 0.20-1.00 [facility] Work Phone: Comment on above: For patients on eltr ombopag therapy, use of Dimension Agra TBIL is not recommended. Chloride [Moles/Vol] 96 mmol/L 98-107 [facility] Work Phone: Glucose [Mass/Vol] 186 mg/dL 74-106 [facility] Work Phone: Comment on above: Fasting Glucose resu lt greater than or equal to 126 mg/dL suggests DIABETES MELLITUS per A.D.A. criteria. Potassium [Moles/Vol] 3.3 mmol/L 3.5-5.1 [facility] Work Phone: Protein [Mass/Vol] 6.7 g/dL 6.4-8.2 [facility] Work Phone: Sodium [Moles/Vol] 133 mmol/L 136-145 [facility] Work Phone: Laboratory - Chemistry and C hemistry - challengeon 01-02-2022 ALP [Catalytic activity/Vol] 65 U/L 45-117 [facility] Work Phone: ALT [Catalytic activity/Vol] 43 U/L 13-56 [facility] Work Phone: CO2 [Moles/Vol] 30.0 mmol/L 21.0-32.0 [facility] Work Phone: Globulin (S) [Mass/Vol] 3.3 g/dL 2.2-4.2 [facility] Work Phone: Urea nitrogen/Creatinine [Mass ratio] 19.7 mg/mg 10-20 [facility] Work Phone: No Panel Informationon 01-02 Estimated GFR (MDRD) Amer 88 mL/min >60 [facility] Work Phone: Comment on above: GFR Calc Estimated GFR (MDRD) Non-Af Amer 73 mL/min >60 [facility] Work Phone: Comment on above: Non- GFR Calc Urine Microalbumin/Creatinine Ratio 1046.7 mg/g CRE <30 [facility] Work Phone: Serum or plasma albumin shane urement (mass/volume)on 01-02-2022 Albumin [Mass/Vol] 3.4 g/dL 3.2-5.0 [facility] Work Phone: Serum or plasma albumin/glob ulin mass ratioon 01-02-2022 Albumin/Globulin [Mass ratio] 1.0 {ratio} 0.9-2.4 [facility] Work Phone: Serum or plasma calcium shane urement (mass/volume)on 01-02-2022 Calcium [Mass/Vol] 8.5 mg/dL 8.5-10.1 [facility] Work Phone: Serum or plasma creatinine m easurement (mass/volume)on 01-02-2022 Creatinine [Mass/Vol] 0.81 mg/dL 0.55-1.02 [facility] Work Phone: Comment on above: The validity of the calculated GFR & GFRAA in patients over 70 years has not been determined. Clinical correlation is essential. Serum or plasma urea nitroge n measurement (mass/volume)on 01-02-2022 Urea nitrogen [Mass/Vol] 16 mg/dL 7-18 [facility] Work Phone: Thin prep Papanicolaou smear with manual screeningon 01-02-2022 Thin prep Papanicolaou smear with manual screening 24 U/L 15-37 [facility] Work Phone: Thin prep Papanicolaou smear with manual screening 7 5-15 [facility] Work Phone: Thin prep Papanicolaou smear with manual screening 224.0 mg/L NO RANGE EST. [facility] Work Phone: Urine creatinine measurement (mass/volume)on 01-02-2022 Creatinine (U) [Mass/Vol] 21.40 mg/dL NO RANGE EST. [facility] Work Phone: Whole blood hemoglobin A1c/t otal hemoglobin ratio (mass fraction)on 01-02-2022 HbA1c (Bld) [Mass fraction] 6.9 % 3.8-5.6 [facility] Work Phone: Comment on above: Normal < 5.7 % Predi abetic 5.7 - 6.4 % Diabetic >or= 6.5 % Please note range changes. Absolute lymphocyte counton 12-25-2021 Lymphocytes Auto (Unsp spec) [#/Vol] 1.60 10*3/uL 0.83-4.51 [facility] Work Phone: Basophil percentageon 2021 Basophil percentage >100 SEEN /hpf 0-5 [facility] Work Phone: Ammonia (P) [Moles/Vol] 28.0 umol/L 11-32 [facility] Work Phone: Basophils/100 WBC (Bld) 0.3 % 0-1 [facility] Work Phone: Bilirubin [Mass/Vol] 0.30 mg/dL 0.20-1.00 [facility] Work Phone: Comment on above: For patients on eltr ombopag therapy, use of Dimension Agra TBIL is not recommended. Chloride [Moles/Vol] 97 mmol/L 98-107 [facility] Work Phone: Eosinophils/100 WBC (Bld) 1.5 % 0-5 [facility] Work Phone: Glucose [Mass/Vol] 141 mg/dL 74-106 [facility] Work Phone: Comment on above: Fasting Glucose resu lt greater than or equal to 126 mg/dL suggests DIABETES MELLITUS per A.D.A. criteria. Neutrophils (Bld) [#/Vol] 4.9 10*3/uL 2.0-7.7 [facility] Work Phone: Neutrophils/100 WBC (Bld) 67.4 % 47-70 [facility] Work Phone: Potassium [Moles/Vol] 3.9 mmol/L 3.5-5.1 [facility] Work Phone: Protein [Mass/Vol] 6.6 g/dL 6.4-8.2 [facility] Work Phone: Sodium [Moles/Vol] 130 mmol/L 136-145 [facility] Work Phone: WBC (Bld) [#/Vol] 7.3 10*3/uL 4.4-11.0 [facility] Work Phone: [phone] Bilirubin Test strip Ql (U)o n 12-25-2021 Bilirubin Ql (U) Negative Negative [facility] Work Phone: Blood erythrocytes count (nu mber/volume)on 12-25-2021 RBC (Bld) [#/Vol] 3.82 10*6/uL 4.2-5.4 [facility] Work Phone: Blood hemoglobin measurement (mass/volume)on 12-25-2021 Hemoglobin (Bld) [Mass/Vol] 11.3 g/dL 12.0-15.0 [facility] Work Phone: Blood lymphocytes/100 leukoc yteson 12-25-2021 Lymphocytes/100 WBC (Bld) 21.9 % 19-41 [facility] Work Phone: Blood monocytes/100 leukocyt eson 12-25-2021 Monocytes/100 WBC (Bld) 8.6 % 0-10 [facility] Work Phone: Blood platelet mean volumeon 12-25-2021 Platelet mean volume (Bld) [Entitic vol] 9.1 fL 6.2-12.0 [facility] Work Phone: Determination of erythrocyte mean corpuscular volume (MCV)on 12-25-2021 MCV (RBC) [Entitic vol] 93.2 fL 81-99 [facility] Work Phone: Hematocrit Auto (Bld) [Volum e fraction]on 12-25-2021 Hematocrit (Bld) [Volume fraction] 35.6 % 37-47 [facility] Work Phone: Ketones Test strip Ql (U)on 12-25-2021 Ketones Ql (U) 5 mg/dl Negative [facility] Work Phone: [phone] Laboratory - Chemistry and C hemistry - challengeon 12-25-2021 ALP [Catalytic activity/Vol] 67 U/L 45-117 [facility] Work Phone: ALT [Catalytic activity/Vol] 29 U/L 13-56 [facility] Work Phone: CO2 [Moles/Vol] 27.0 mmol/L 21.0-32.0 [facility] Work Phone: Globulin (S) [Mass/Vol] 3.4 g/dL 2.2-4.2 [facility] Work Phone: Urea nitrogen/Creatinine [Mass ratio] 24.3 mg/mg 10-20 [facility] Work Phone: Laboratory - Hematology and Cell countson 12-25-2021 Erythrocyte distribution width (RBC) [Entitic vol] 51.8 fL 35.1-43.9 [facility] Work Phone: Erythrocyte distribution width (RBC) [Ratio] 15.1 % 11.6-14.6 [facility] Work Phone: Immature granulocytes/100 WBC (Bld) 0.300 % 0.0-0.9 [facility] Work Phone: Comment on above: IG% - Immature Granu locytes (promyelocytes, myelocytes and metamyelocytes) > 1% indicates that a LEFT SHIFT is Present. MCH (RBC) [Entitic mass] 29.6 pg 27.0-32.0 [facility] Work Phone: Nucleated RBC/100 WBC (Bld) [Ratio] 0 % 0-5 [facility] Work Phone: MCHC Auto (RBC) [Mass/Vol]on 12-25-2021 MCHC (RBC) [Mass/Vol] 31.7 g/dL 32-36 [facility] Work Phone: Mucus LM Ql (Urine sed)on Mucus Ql (Urine sed) 0 SEEN /hpf [facility] Work Phone: Nitrite Test strip Ql (U)on 12-25-2021 Nitrite Ql (U) Negative Negative [facility] Work Phone: No Panel Informationon 12-25 Estimated GFR (MDRD) Amer 121 mL/min >60 [facility] Work Phone: Comment on above: GFR Calc Estimated GFR (MDRD) Non-Af Amer 100 mL/min >60 [facility] Work Phone: Comment on above: Non- GFR Calc Platelets bldon 12-25-2021 Platelets (Bld) [#/Vol] 261 10*3/uL 150-450 [facility] Work Phone: Protein Test strip Ql (U)on 12-25-2021 Protein Ql (U) 100 mg/dl Negative [facility] Work Phone: Serum or plasma C reactive p rotein measurement (mass/volume)on 12-25-2021 CRP [Mass/Vol] 7.55 mg/L 0.0-3.0 [facility] Work Phone: Comment on above: C-Reactive Protein ( CRP) provides useful information for thediagnosis, therapy and monitoring of inflammatory processesand associated diseases. For the evaluation of Relative Riskfor Cardiovascular Disease, a High Sensitivity CRP (HSCRP)should be ordered. Serum or plasma albumin shane urement (mass/volume)on 12-25-2021 Albumin [Mass/Vol] 3.2 g/dL 3.2-5.0 [facility] Work Phone: Serum or plasma albumin/glob ulin mass ratioon 12-25-2021 Albumin/Globulin [Mass ratio] 0.9 {ratio} 0.9-2.4 [facility] Work Phone: Serum or plasma calcium shane urement (mass/volume)on 12-25-2021 Calcium [Mass/Vol] 7.8 mg/dL 8.5-10.1 [facility] Work Phone: Serum or plasma creatinine m easurement (mass/volume)on 12-25-2021 Creatinine [Mass/Vol] 0.62 mg/dL 0.55-1.02 [facility] Work Phone: Comment on above: The validity of the calculated GFR & GFRAA in patients over 70 years has not been determined. Clinical correlation is essential. Serum or plasma urea nitroge n measurement (mass/volume)on 12-25-2021 Urea nitrogen [Mass/Vol] 15 mg/dL 7-18 [facility] Work Phone: Squamous epithelial cells de tection in urine sediment by light microscopyon 12-25-2021 Epithelial cells.squamous LM Ql (Urine sed) 10-25 SEEN /hpf 5-10 [facility] Work Phone: Thin prep Papanicolaou smear with manual screeningon 12-25-2021 Thin prep Papanicolaou smear with manual screening 20 U/L 15-37 [facility] Work Phone: Thin prep Papanicolaou smear with manual screening 6 5-15 [facility] Work Phone: Urine blood detectionon 12-01 RBC Ql (U) 50 /ul Negative [facility] Work Phone: RBC Ql (U) 5-10 SEEN /hpf 0-5 [facility] Work Phone: Urine clarityon 12-25-2021 Clarity (U) Cloudy Clear [facility] Work Phone: Urine color determinationon 12-25-2021 Color (U) Yellow Yellow [facility] Work Phone: Urine glucose detectionon Glucose Ql (U) 100 mg/dl Normal [facility] Work Phone: Urine leukocyte esterase det ection by dipstickon 12-25-2021 Leukocyte esterase Test strip Ql (U) 500 /ul Negative [facility] Work Phone: Urine pHon 12-25-2021 pH (U) 6.0 [pH] 5.0 - 8.0 [facility] Work Phone: Urine sediment bacteria coun t by microscopy (number/high power field)on 12-25-2021 Bacteria LM.HPF (Urine sed) [#/Area] 4 /[HPF] None Seen [facility] Work Phone: Urine specific gravity measu rementon 12-25-2021 Specific gravity (U) [Rel density] 1.015 1.002-1.03 0 [facility] Work Phone: Urobilinogen Auto test strip Ql (U)on 12-25-2021 Urobilinogen Ql (U) Normal mg/dl Normal [facility] Work Phone: Basophil percentageon 2021 Bilirubin [Mass/Vol] 0.40 mg/dL 0.20-1.00 [facility] Work Phone: Comment on above: For patients on eltr ombopag therapy, use of Dimension Agra TBIL is not recommended. Chloride [Moles/Vol] 99 mmol/L 98-107 [facility] Work Phone: Glucose [Mass/Vol] 102 mg/dL 74-106 [facility] Work Phone: Comment on above: Fasting Glucose resu lt from 100 to 125 mg/dL suggests IMPAIRED HOMEOSTASIS per A.D.A. criteria. Potassium [Moles/Vol] 3.8 mmol/L 3.5-5.1 [facility] Work Phone: Protein [Mass/Vol] 6.8 g/dL 6.4-8.2 [facility] Work Phone: Sodium [Moles/Vol] 133 mmol/L 136-145 [facility] Work Phone: Laboratory - Chemistry and C hemistry - challengeon 12-06-2021 ALP [Catalytic activity/Vol] 55 U/L 45-117 [facility] Work Phone: ALT [Catalytic activity/Vol] 29 U/L 13-56 [facility] Work Phone: CO2 [Moles/Vol] 28.0 mmol/L 21.0-32.0 [facility] Work Phone: Globulin (S) [Mass/Vol] 3.3 g/dL 2.2-4.2 [facility] Work Phone: Urea nitrogen/Creatinine [Mass ratio] 23.9 mg/mg 10-20 [facility] Work Phone: No Panel Informationon 12-06 Estimated GFR (MDRD) Amer 85 mL/min >60 [facility] Work Phone: Comment on above: GFR Calc Estimated GFR (MDRD) Non-Af Amer 70 mL/min >60 [facility] Work Phone: Comment on above: Non- GFR Calc Serum or plasma albumin shane urement (mass/volume)on 12-06-2021 Albumin [Mass/Vol] 3.5 g/dL 3.2-5.0 [facility] Work Phone: Serum or plasma albumin/glob ulin mass ratioon 12-06-2021 Albumin/Globulin [Mass ratio] 1.1 {ratio} 0.9-2.4 [facility] Work Phone: Serum or plasma calcium shane urement (mass/volume)on 12-06-2021 Calcium [Mass/Vol] 8.7 mg/dL 8.5-10.1 [facility] Work Phone: Serum or plasma creatinine m easurement (mass/volume)on 12-06-2021 Creatinine [Mass/Vol] 0.84 mg/dL 0.55-1.02 [facility] Work Phone: Comment on above: The validity of the calculated GFR & GFRAA in patients over 70 years has not been determined. Clinical correlation is essential. Serum or plasma transthyreti n measurement (mass/volume)on 12-06-2021 Prealbumin [Mass/Vol] 36.7 mg/dL 20.0-40.0 [facility] Work Phone: Serum or plasma urea nitroge n measurement (mass/volume)on 12-06-2021 Urea nitrogen [Mass/Vol] 20 mg/dL 7-18 [facility] Work Phone: Thin prep Papanicolaou smear with manual screeningon 12-06-2021 Thin prep Papanicolaou smear with manual screening 20 U/L 15-37 [facility] Work Phone: Thin prep Papanicolaou smear with manual screening 6 5-15 [facility] Work Phone: [phone] Absolute lymphocyte counton 10-23-2021 Lymphocytes Auto (Unsp spec) [#/Vol] 1.82 10*3/uL 0.83-4.51 [facility] Work Phone: Alternaria alternata IgE ser umon 10-23-2021 A. alternata IgE Qn (S) <0.10 kU/L Class 0 [facility] Work Phone: Basophil percentageon 2021 Basophils/100 WBC (Bld) 0.7 % 0-1 [facility] Work Phone: Bilirubin [Mass/Vol] 0.30 mg/dL 0.20-1.00 [facility] Work Phone: Comment on above: For patients on eltr ombopag therapy, use of Dimension Agra TBIL is not recommended. Chloride [Moles/Vol] 97 mmol/L 98-107 [facility] Work Phone: [phone] Eosinophils/100 WBC (Bld) 0.9 % 0-5 [facility] Work Phone: Glucose [Mass/Vol] 101 mg/dL 74-106 [facility] Work Phone: Comment on above: Fasting Glucose resu lt from 100 to 125 mg/dL suggests IMPAIRED HOMEOSTASIS per A.D.A. criteria. Neutrophils (Bld) [#/Vol] 4.8 10*3/uL 2.0-7.7 [facility] Work Phone: Neutrophils/100 WBC (Bld) 65.6 % 47-70 [facility] Work Phone: [phone] Potassium [Moles/Vol] 4.3 mmol/L 3.5-5.1 [facility] Work Phone: Protein [Mass/Vol] 6.7 g/dL 6.4-8.2 [facility] Work Phone: Sodium [Moles/Vol] 129 mmol/L 136-145 [facility] Work Phone: WBC (Bld) [#/Vol] 7.4 10*3/uL 4.4-11.0 [facility] Work Phone: Blood erythrocytes count (nu mber/volume)on 10-23-2021 RBC (Bld) [#/Vol] 3.77 10*6/uL 4.2-5.4 [facility]: Blood hemoglobin measurement (mass/volume)on 10-23-2021 Hemoglobin (Bld) [Mass/Vol] 10.7 g/dL 12.0-15.0 [facility] Work Phone: Blood lymphocytes/100 leukoc yteson 10-23-2021 Lymphocytes/100 WBC (Bld) 24.6 % 19-41 [facility] Work Phone: Blood monocytes/100 leukocyt eson 10-23-2021 Monocytes/100 WBC (Bld) 7.8 % 0-10 [facility] Work Phone: Blood platelet mean volumeon 10-23-2021 Platelet mean volume (Bld) [Entitic vol] 9.0 fL 6.2-12.0 [facility] Work Phone: Determination of erythrocyte mean corpuscular volume (MCV)on 10-23-2021 MCV (RBC) [Entitic vol] 91.8 fL 81-99 [facility] Work Phone: Hematocrit Auto (Bld) [Volum e fraction]on 10-23-2021 Hematocrit (Bld) [Volume fraction] 34.6 % 37-47 [facility] Work Phone: Iron measurement (mass/mass) on 10-23-2021 Iron (Unsp spec) [Mass/Mass] 27 ug/dL 50-170 [facility] Work Phone: Laboratory - Chemistry and C hemistry - challengeon 10-23-2021 ALP [Catalytic activity/Vol] 49 U/L 45-117 [facility] Work Phone: ALT [Catalytic activity/Vol] 30 U/L 13-56 [facility] Work Phone: CO2 [Moles/Vol] 25.0 mmol/L 21.0-32.0 [facility] Work Phone: Cobalamin (Vitamin B12) [Mass/Vol] 1868 pg/mL 211-911 [facility] Work Phone: Globulin (S) [Mass/Vol] 3.4 g/dL 2.2-4.2 [facility] Work Phone: Urea nitrogen/Creatinine [Mass ratio] 27.4 mg/mg 10-20 [facility] Work Phone: Laboratory - Hematology and Cell countson 10-23-2021 Erythrocyte distribution width (RBC) [Entitic vol] 45.8 fL 35.1-43.9 [facility] Work Phone: Erythrocyte distribution width (RBC) [Ratio] 13.4 % 11.6-14.6 [facility] Work Phone: Immature granulocytes/100 WBC (Bld) 0.400 % 0.0-0.9 [facility] Work Phone: Comment on above: IG% - Immature Granu locytes (promyelocytes, myelocytes and metamyelocytes) > 1% indicates that a LEFT SHIFT is Present. MCH (RBC) [Entitic mass] 28.4 pg 27.0-32.0 [facility] Work Phone: Nucleated RBC/100 WBC (Bld) [Ratio] 0 % 0-5 [facility] Work Phone: MCHC Auto (RBC) [Mass/Vol]on 10-23-2021 MCHC (RBC) [Mass/Vol] 30.9 g/dL 32-36 [facility] Work Phone: No Panel Informationon 10-23 Cat Hair Allergen <0.10 kU/L Class 0 [facility] Work Phone: Common Ragweed (Short) Allergen <0.10 kU/L Class 0 [facility] Work Phone: Estimated GFR (MDRD) Amer 106 mL/min >60 [facility] Work Phone: Comment on above: GFR Calc Estimated GFR (MDRD) Non-Af Amer 88 mL/min >60 [facility] Work Phone: Comment on above: Non- GFR Calc Immunoglobulin E 14 IU/mL 6-495 [facility] Work Phone: [place] ([place]) Allergen IgE Ab <0.10 kU/L Class 0 [facility] Work Phone: Mouse Urine Allergen IgE Antibody <0.10 kU/L Class 0 [facility] Work Phone: Comment on above: Performed at: [address] [id number] Director: Joan Ye MD, Phone: [phone] Parathyroid Hormone (Intact) 69.8 pg/mL 18.4-80.1 [facility] Work Phone: RAST Comment Comment . [facility] Work Phone: Comment on above: Levels of Specific I gE Class Description of Class ----- < 0.10 0 Negative 0.10 - 0.31 0/I Equivocal/Low 0.32 - 0.55 I Low 0.56 - 1.40 II Moderate 1.41 - 3.90 III High 3.91 - 19.00 IV Very High 19.01 - 100.00 V Very High >100.00 Very High Total Iron Binding Capacity 365 ug/dL 250-450 [facility] Work Phone: Vitamin D 25-Hydroxy 39.6 ng/mL [facility] Work Phone: Comment on above: Vitamin D 25(OH) Sta tus Range Deficiency <20 ng/mL (50nmol/L) Insufficiency 20 - 30 ng/mL (50 - 75 nmol/L) Sufficiency 30 - 100 ng/mL (75 - 250 nmol/L) Toxicity >100 ng/mL (>250 nmol/L) [place] Tree Allergen <0.10 kU/L Class 0 [facility] Work Phone: Whole Blood Vitamin B1 Level 233.0 nmol/L 66.5-200.0 [facility] Work Phone: Platelets bldon 10-23-2021 Platelets (Bld) [#/Vol] 332 10*3/uL 150-450 [facility] Work Phone: Rough pigweed specific IgE a ntibody assayon 10-23-2021 Rough Pigweed IgE Qn (S) <0.10 kU/L Class 0 [facility] Work Phone: Serum Chilean sycamore IgE antibody assay (units/volume)on 10-23-2021 Chilean Brandon IgE Qn (S) <0.10 kU/L Class 0 [facility] Work Phone: Serum Aspergillus fumigatus IgE antibody assay (units/volume)on 10-23-2021 A. fumigatus IgE Qn (S) <0.10 kU/L Class 0 [facility] Work Phone: Serum Bermuda grass IgE anti body assay (units/volume)on 10-23-2021 Bermuda grass IgE Qn (S) <0.10 kU/L Class 0 [facility] Work Phone: Serum Cladosporium herbarum IgE antibody assay (units/volume)on 10-23-2021 C. herbarum IgE Qn (S) <0.10 kU/L Class 0 [facility] Work Phone: Serum Dermatophagoides farin ae specific IgE antibody assay (units/volume)on 10-23-2021 Chilean house dust mite IgE Qn (S) <0.10 kU/L Class 0 [facility] Work Phone: Serum house dust mi te IgE antibody assay (units/volume)on 10-23-2021 house dust mite IgE Qn (S) <0.10 kU/L Class 0 [facility] Work Phone: Serum Penicillium notatum Ig E antibody assay (units/volume)on 10-23-2021 P. notatum IgE Qn (S) <0.10 kU/L Class 0 [facility] Work Phone: Serum Periplaneta americana IgE antibody assay (units/volume)on 10-23-2021 Chilean Cockroach IgE Qn (S) <0.10 kU/L Class 0 [facility] Work Phone: Serum Malagasy thistle specif ic IgE antibody assayon 10-23-2021 Saltwort IgE Qn (S) <0.10 kU/L Class 0 [facility] Work Phone: Serum birch specific IgE ant ibody assayon 10-23-2021 Silver Birch IgE Qn (S) <0.10 kU/L Class 0 [facility] Work Phone: Serum black walnut IgE antib wendy assay (units/volume)on 10-23-2021 Black Stratford IgE Qn (S) <0.10 kU/L Class 0 [facility] Work Phone: Serum cottonwood IgE antibod y assay (units/volume)on 10-23-2021 Runnells IgE Qn (S) <0.10 kU/L Class 0 [facility] Work Phone: Serum dog epithelium IgE ant ibody assay (units/volume)on 10-23-2021 Dog epithelium IgE Qn (S) <0.10 kU/L Class 0 [facility] Work Phone: Serum mountain cedar specifi c IgE antibody assayon 10-23-2021 Mountain Juniper IgE Qn (S) <0.10 kU/L Class 0 [facility] Work Phone: Serum or plasma albumin shane urement (mass/volume)on 10-23-2021 Albumin [Mass/Vol] 3.3 g/dL 3.2-5.0 [facility] Work Phone: Serum or plasma albumin/glob ulin mass ratioon 10-23-2021 Albumin/Globulin [Mass ratio] 1.0 {ratio} 0.9-2.4 [facility] Work Phone: Serum or plasma calcium shane urement (mass/volume)on 10-23-2021 Calcium [Mass/Vol] 8.2 mg/dL 8.5-10.1 [facility] Work Phone: Serum or plasma creatinine m easurement (mass/volume)on 10-23-2021 Creatinine [Mass/Vol] 0.69 mg/dL 0.55-1.02 [facility] Work Phone: Comment on above: The validity of the calculated GFR & GFRAA in patients over 70 years has not been determined. Clinical correlation is essential. Serum or plasma ferritin agustin surement (mass/volume)on 10-23-2021 Ferritin [Mass/Vol] 27 ng/mL 8-252 [facility] Work Phone: Serum or plasma folate measu rement (mass/volume)on 10-23-2021 Folate [Mass/Vol] 31.60 ng/mL 3.1-55.4 [facility] Work Phone: Serum or plasma iron saturat ion measurement (mass fraction)on 10-23-2021 Iron saturation [Mass fraction] 7.4 % 15.0-55.0 [facility] Work Phone: Serum or plasma urea nitroge n measurement (mass/volume)on 10-23-2021 Urea nitrogen [Mass/Vol] 19 mg/dL 7-18 [facility] Work Phone: Serum pecan or hickory nut I gE antibody assay (units/volume)on 10-23-2021 Pecan or [place] Nut IgE Qn (S) <0.10 kU/L Class 0 [facility] Work Phone: Serum sheep sorrel IgE antib wendy assay (units/volume)on 10-23-2021 Sheep Horace IgE Qn (S) <0.10 kU/L Class 0 [facility] Work Phone: Serum lizette IgE antibody a ssay (units/volume)on 10-23-2021 Lizette IgE Qn (S) <0.10 kU/L Class 0 [facility] Work Phone: Serum white millie IgE antibody assay (units/volume)on 10-23-2021 White Millie IgE Qn (S) <0.10 kU/L Class 0 [facility] Work Phone: Serum white elm IgE antibody assay (units/volume)on 10-23-2021 White Elm IgE Qn (S) <0.10 kU/L Class 0 [facility] Work Phone: Serum white mulberry IgE ant ibody assay (units/volume)on 10-23-2021 White mulberry IgE Qn (S) <0.10 kU/L Class 0 [facility] Work Phone: Thin prep Papanicolaou smear with manual screeningon 10-23-2021 Thin prep Papanicolaou smear with manual screening 18 U/L 15-37 [facility] Work Phone: Thin prep Papanicolaou smear with manual screening 7 5-15 [facility] Work Phone: Thin prep Papanicolaou smear with manual screening 90 ug/dL 80-158 [facility] Work Phone: Comment on above: Detection Limit = 5P erformed at: - [facility] [id number] [place], [place] [id number] Director: Joan Ye MD, Phone: [phone] Whole blood hemoglobin A1c/t otal hemoglobin ratio (mass fraction)on 10-23-2021 HbA1c (Bld) [Mass fraction] 6.8 % 3.8-5.6 [facility] Work Phone: Comment on above: Normal < 5.7 % Predi abetic 5.7 - 6.4 % Diabetic >or= 6.5 % Please note range changes. 24 hour urine alpha 2 globul in/total protein ratio by electrophoresis (mass fraction)on 10-10-2021 Alpha 2 globulin Elph (24H U) [Mass fraction] 5.3 % . [facility] Work Phone: 24 hour urine beta globulin/ total protein ratio by electrophoresis (mass fraction)on 10-10-2021 Beta globulin Elph (24H U) [Mass fraction] 11.5 % . [facility] Work Phone: 24 hour urine gamma globulin /total protein ratio by electrophoresis (mass fraction)on 10-10-2021 Gamma globulin Elph (24H U) [Mass fraction] 5.4 % . [facility] Work Phone: Laboratory - Chemistry and C hemistry - challengeon 10-10-2021 Albumin [Mass/Vol] 3.4 g/dL 2.9-4.4 [facility] Work Phone: No Panel Informationon 10-10 Addendum Document Comment . [facility] Work Phone: Comment on above: The SPE pattern appe ars unremarkable. Evidence ofmonoclonal protein is not apparent. [id number] 0.2 g/dL 0.0-0.4 [facility] Work Phone: [id number] 0.9 g/dL 0.4-1.0 [facility] Work Phone: Gamma Globulins 0.7 g/dL 0.4-1.8 [facility] Work Phone: Protein Fractions Elph [Inte rp]on 10-10-2021 Protein Fractions [Interp] Comment . [facility] Work Phone: Comment on above: Protein electrophore sis scan will follow via computer,mail, or screw machine operator delivery. Serum albumin to globulin ra jazlyn by protein electrophoresison 10-10-2021 Albumin/Globulin Elph [Mass ratio] 1.3 0.7-1.7 [facility] Work Phone: Serum globulin measurement ( mass/volume)on 10-10-2021 Globulin (S) [Mass/Vol] 2.7 g/dL 2.2-3.9 [facility] Work Phone: Serum or plasma beta globuli n measurement by electrophoresis (mass/volume)on 10-10-2021 Beta globulin Elph [Mass/Vol] 1.0 g/dL 0.7-1.3 [facility] Work Phone: Thin prep Papanicolaou smear with manual screeningon 10-10-2021 Thin prep Papanicolaou smear with manual screening 647.0 mg/L NO RANGE EST. [facility] Work Phone: Thin prep Papanicolaou smear with manual screening See comment [facility] Work Phone: Comment on above: NOT OBSERVED Total protein bloodon 2021 Protein [Mass/Vol] 6.1 g/dL 6.0-8.5 [facility] Work Phone: Urine albumin/total protein mass ratio by electrophoresison 10-10-2021 Albumin Elph (U) [Mass fraction] 72.3 % . [facility] Work Phone: Urine alpha 1 globulin/total protein ratio by electrophoresis (mass fraction)on 10-10-2021 Alpha 1 globulin Elph (U) [Mass fraction] 5.5 % . [facility] Work Phone: Urine creatinine measurement (mass/volume)on 10-10-2021 Creatinine (U) [Mass/Vol] 22.70 mg/dL NO RANGE EST. [facility] Work Phone: Urine monoclonal protein/tot al protein mass ratio by electrophoresison 10-10-2021 Protein.monoclonal Elph (U) [Mass fraction] See comment [facility] Work Phone: Comment on above: NOT OBSERVED Urine protein measurement (m ass/volume)on 10-10-2021 Protein (U) [Mass/Vol] 79.8 mg/dL Not Estab. [facility] Work Phone: Basophil percentageon 2021 Chloride [Moles/Vol] 98 mmol/L 98-107 [facility] Work Phone: Glucose [Mass/Vol] 150 mg/dL 74-106 [facility] Work Phone: Comment on above: Fasting Glucose resu lt greater than or equal to 126 mg/dL suggests DIABETES MELLITUS per A.D.A. criteria. Potassium [Moles/Vol] 4.3 mmol/L 3.5-5.1 [facility] Work Phone: Sodium [Moles/Vol] 131 mmol/L 136-145 [facility] Work Phone: Laboratory - Chemistry and C hemistry - challengeon 09-06-2021 CO2 [Moles/Vol] 29.0 mmol/L 21.0-32.0 [facility] Work Phone: Urea nitrogen/Creatinine [Mass ratio] 25.0 mg/mg 10-20 [facility] Work Phone: No Panel Informationon 09-06 Estimated GFR (MDRD) Amer 90 mL/min >60 [facility] Work Phone: Comment on above: GFR Calc Estimated GFR (MDRD) Non-Af Amer 74 mL/min >60 [facility] Work Phone: Comment on above: Non- GFR Calc Miscellaneous Test See comment [facility] Work Phone: Comment on above: TEST RESULT LIMITSSA RS-CoV-2 Semi-Quant Total [id number] Semi-Quant Total Ab A, See Dilution U/mL [...] correlation between protection from vaccination and antibody levels.Help Remediess [id number] SEffective August 27, 2021 [facility] expanded the reporting range of results for test [id number] SARS-Cov-2 Semi-Quantitative Total Antibody, Mazin. Results previously reported for this assay were 0.8 - 2500 U/mL with higher values reported as >2500 U/mL. With the addition of an automated dilution, we are now able to report results 0.8 - 56869 U/mL with higher values reported as >52552 U/mL. This change does not impact previously [...] other viruses or pathogens. TESTING PERFORMED AT [facility]. ORIGINAL REPORT ON FILE IN LAB CONTAINS ADDITIONAL TEST SITE INFORMATION. Serum or plasma calcium shane urement (mass/volume)on 09-06-2021 Calcium [Mass/Vol] 8.3 mg/dL 8.5-10.1 [facility] Work [facility]: Serum or plasma creatinine m easurement (mass/volume)on 09-06-2021 Creatinine [Mass/Vol] 0.80 mg/dL 0.55-1.02 [facility] Work Phone: Comment on above: The validity of the calculated GFR & GFRAA in patients over 70 years has not been determined. Clinical correlation is essential. Serum or plasma urea nitroge n measurement (mass/volume)on 09-06-2021 Urea nitrogen [Mass/Vol] 20 mg/dL 7-18 [facility] Work Phone: Thin prep Papanicolaou smear with manual screeningon 09-06-2021 Thin prep Papanicolaou smear with manual screening 4 5-15 [facility] Work Phone: Glucose Glucometer (BldC) [M ass/Vol]on 09-03-2021 Glucose [Mass/Vol] 93 mg/dL 74-106 [facility] Work Phone: Comment on above: MANAGEMENT OF PATIEN T CARE PER NURSING PROTOCOL Basophil percentageon 2021 Chloride [Moles/Vol] 103 mmol/L 98-107 [facility] Work Phone: Glucose [Mass/Vol] 153 mg/dL 74-106 [facility] Work Phone: Comment on above: Fasting Glucose resu lt greater than or equal to 126 mg/dL suggests DIABETES MELLITUS per A.D.A. criteria. Potassium [Moles/Vol] 3.3 mmol/L 3.5-5.1 [facility] Work Phone: Sodium [Moles/Vol] 137 mmol/L 136-145 [facility] Work Phone: Laboratory - Chemistry and C hemistry - challengeon 08-25-2021 CO2 [Moles/Vol] 30.0 mmol/L 21.0-32.0 [facility] Work Phone: Urea nitrogen/Creatinine [Mass ratio] 25.6 mg/mg 10-20 [facility] Work Phone: No Panel Informationon 08-25 Estimated GFR (MDRD) Amer 98 mL/min >60 [facility] Work Phone: Comment on above: GFR Calc Estimated GFR (MDRD) Non-Af Amer 81 mL/min >60 [facility] Work Phone: Comment on above: Non- GFR Calc Serum or plasma calcium shane urement (mass/volume)on 08-25-2021 Calcium [Mass/Vol] 7.8 mg/dL 8.5-10.1 [facility] Work Phone: Serum or plasma creatinine m easurement (mass/volume)on 08-25-2021 Creatinine [Mass/Vol] 0.74 mg/dL 0.55-1.02 [facility] Work Phone: Comment on above: The validity of the calculated GFR & GFRAA in patients over 70 years has not been determined. Clinical correlation is essential. Serum or plasma urea nitroge n measurement (mass/volume)on 08-25-2021 Urea nitrogen [Mass/Vol] 19 mg/dL 7-18 [facility] Work Phone: Thin prep Papanicolaou smear with manual screeningon 08-25-2021 Thin prep Papanicolaou smear with manual screening 4 5-15 [facility] Work Phone: Basophil percentageon 2021 Bilirubin [Mass/Vol] 0.20 mg/dL 0.20-1.00 [facility] Work Phone: Comment on above: For patients on eltr ombopag therapy, use of Dimension Agra TBIL is not recommended. Chloride [Moles/Vol] 105 mmol/L 98-107 [facility] Work Phone: Glucose [Mass/Vol] 225 mg/dL 74-106 [facility] Work Phone: Comment on above: Glucose result great er than or equal to 200 mg/dLsuggests DIABETES MELLITUS per A.D.A. criteria. Potassium [Moles/Vol] 3.2 mmol/L 3.5-5.1 [facility] Work Phone: Protein [Mass/Vol] 6.3 g/dL 6.4-8.2 [facility] Work Phone: Sodium [Moles/Vol] 140 mmol/L 136-145 [facility] Work Phone: Laboratory - Chemistry and C hemistry - challengeon 08-24-2021 ALP [Catalytic activity/Vol] 65 U/L 45-117 [facility] Work Phone: ALT [Catalytic activity/Vol] 27 U/L 13-56 [facility] Work Phone: CO2 [Moles/Vol] 30.0 mmol/L 21.0-32.0 [facility] Work Phone: Globulin (S) [Mass/Vol] 3.1 g/dL 2.2-4.2 [facility] Work Phone: Magnesium [Mass/Vol] 2.3 mg/dL 1.6-2.6 [facility] Work Phone: Urea nitrogen/Creatinine [Mass ratio] 22.3 mg/mg 10-20 [facility] Work Phone: No Panel Informationon 08-24 Estimated GFR (MDRD) Amer 102 mL/min >60 [facility] Work Phone: Comment on above: GFR Calc Estimated GFR (MDRD) Non-Af Amer 84 mL/min >60 [facility] Work Phone: Comment on above: Non- GFR Calc Serum or plasma albumin shane urement (mass/volume)on 08-24-2021 Albumin [Mass/Vol] 3.2 g/dL 3.2-5.0 [facility] Work Phone: Serum or plasma albumin/glob ulin mass ratioon 08-24-2021 Albumin/Globulin [Mass ratio] 1.0 {ratio} 0.9-2.4 [facility] Work Phone: Serum or plasma calcium shane urement (mass/volume)on 08-24-2021 Calcium [Mass/Vol] 8.1 mg/dL 8.5-10.1 [facility] Work Phone: Serum or plasma creatinine m easurement (mass/volume)on 08-24-2021 Creatinine [Mass/Vol] 0.72 mg/dL 0.55-1.02 [facility] Work Phone: Comment on above: The validity of the calculated GFR & GFRAA in patients over 70 years has not been determined. Clinical correlation is essential. Serum or plasma urea nitroge n measurement (mass/volume)on 08-24-2021 Urea nitrogen [Mass/Vol] 16 mg/dL 7-18 [facility] Work Phone: Thin prep Papanicolaou smear with manual screeningon 08-24-2021 Thin prep Papanicolaou smear with manual screening 14 U/L 15-37 [facility] Work Phone: Thin prep Papanicolaou smear with manual screening 5 5-15 [facility] Work Phone: Basophil percentageon 2021 Bilirubin [Mass/Vol] 0.20 mg/dL 0.20-1.00 [facility] Work Phone: Comment on above: For patients on eltr ombopag therapy, use of Dimension Agra TBIL is not recommended. Protein [Mass/Vol] 6.6 g/dL 6.4-8.2 [facility] Work Phone: WBC (Bld) [#/Vol] 5.5 10*3/uL 4.4-11.0 [facility] Work Phone: Blood erythrocytes count (nu mber/volume)on 08-09-2021 RBC (Bld) [#/Vol] 3.56 10*6/uL 4.2-5.4 [facility] Work Phone: Blood hemoglobin measurement (mass/volume)on 08-09-2021 Hemoglobin (Bld) [Mass/Vol] 11.2 g/dL 12.0-15.0 [facility] Work Phone: Blood platelet mean volumeon 08-09-2021 Platelet mean volume (Bld) [Entitic vol] 9.3 fL 6.2-12.0 [facility] Work Phone: Determination of erythrocyte mean corpuscular volume (MCV)on 08-09-2021 MCV (RBC) [Entitic vol] 96.3 fL 81-99 [facility] Work Phone: Direct bilirubinon 2 Bilirubin.direct [Mass/Vol] 0.11 mg/dL 0.00-0.30 [facility] Work Phone: Hematocrit Auto (Bld) [Volum e fraction]on 08-09-2021 Hematocrit (Bld) [Volume fraction] 34.3 % 37-47 [facility] Work Phone: Laboratory - Chemistry and C hemistry - challengeon 08-09-2021 ALP [Catalytic activity/Vol] 79 U/L 45-117 [facility] Work Phone: ALT [Catalytic activity/Vol] 28 U/L 13-56 [facility] Work Phone: Cobalamin (Vitamin B12) [Mass/Vol] 1533 pg/mL 211-911 [facility] Work Phone: Globulin (S) [Mass/Vol] 3.1 g/dL 2.2-4.2 [facility] Work Phone: Laboratory - Hematology and Cell countson 08-09-2021 Erythrocyte distribution width (RBC) [Entitic vol] 47.9 fL 35.1-43.9 [facility] Work Phone: Erythrocyte distribution width (RBC) [Ratio] 13.3 % 11.6-14.6 [facility] Work Phone: MCH (RBC) [Entitic mass] 31.5 pg 27.0-32.0 [facility] Work Phone: MCHC Auto (RBC) [Mass/Vol]on 08-09-2021 MCHC (RBC) [Mass/Vol] 32.7 g/dL 32-36 [facility] Work Phone: [phone] No Panel Informationon 08-09 Thyroid Stimulating Hormone (TSH) 1.37 uIU/mL 0.358-3.74 [facility] Work Phone: Whole Blood Vitamin B1 Level 150.5 nmol/L 66.5-200.0 [facility] Work Phone: Comment on above: Performed at: [address] [id number] Director: Joan Ye MD, Phone: [phone] Platelets bldon 08-09-2021 Platelets (Bld) [#/Vol] 291 10*3/uL 150-450 [facility] Work Phone: Serum or plasma albumin shane urement (mass/volume)on 08-09-2021 Albumin [Mass/Vol] 3.5 g/dL 3.2-5.0 [facility] Work Phone: Serum or plasma folate measu rement (mass/volume)on 08-09-2021 Folate [Mass/Vol] 29.80 ng/mL 3.1-55.4 [facility] Work Phone: Thin prep Papanicolaou smear with manual screeningon 08-09-2021 Thin prep Papanicolaou smear with manual screening 20 U/L 15-37 [facility] Work Phone: Basophil percentageon 2021 Chloride [Moles/Vol] 104 mmol/L 98-107 [facility] Work Phone: Glucose [Mass/Vol] 94 mg/dL 74-106 [facility] Work Phone: Potassium [Moles/Vol] 3.8 mmol/L 3.5-5.1 [facility] Work Phone: Sodium [Moles/Vol] 139 mmol/L 136-145 [facility] Work Phone: Laboratory - Chemistry and C hemistry - challengeon 08-03-2021 CO2 [Moles/Vol] 31.0 mmol/L 21.0-32.0 [facility] Work Phone: Urea nitrogen/Creatinine [Mass ratio] 18.7 mg/mg 10-20 [facility] Work Phone: No Panel Informationon 08-03 Estimated GFR (MDRD) Amer 143 mL/min >60 [facility] Work Phone: Comment on above: GFR Calc Estimated GFR (MDRD) Non-Af Amer 119 mL/min >60 [facility] Work Phone: Comment on above: Non- GFR Calc Serum or plasma calcium shane urement (mass/volume)on 08-03-2021 Calcium [Mass/Vol] 8.1 mg/dL 8.5-10.1 [facility] Work Phone: Serum or plasma creatinine m easurement (mass/volume)on 08-03-2021 Creatinine [Mass/Vol] 0.53 mg/dL 0.55-1.02 [facility] Work Phone: Comment on above: The validity of the calculated GFR & GFRAA in patients over 70 years has not been determined. Clinical correlation is essential. Serum or plasma urea nitroge n measurement (mass/volume)on 08-03-2021 Urea nitrogen [Mass/Vol] 10 mg/dL 7-18 [facility] Work Phone: Thin prep Papanicolaou smear with manual screeningon 08-03-2021 Thin prep Papanicolaou smear with manual screening 4 5-15 [facility] Work Phone: Basophil percentageon 2021 Chloride [Moles/Vol] 106 mmol/L 98-107 [facility] Work Phone: Glucose [Mass/Vol] 187 mg/dL 74-106 [facility] Work Phone: Comment on above: Fasting Glucose resu lt greater than or equal to 126 mg/dL suggests DIABETES MELLITUS per A.D.A. criteria. Potassium [Moles/Vol] 3.7 mmol/L 3.5-5.1 [facility] Work Phone: Sodium [Moles/Vol] 136 mmol/L 136-145 [facility] Work Phone: Laboratory - Chemistry and C hemistry - challengeon 07-25-2021 CO2 [Moles/Vol] 25.0 mmol/L 21.0-32.0 [facility] Work Phone: Urea nitrogen/Creatinine [Mass ratio] 23.1 mg/mg 10-20 [facility] Work Phone: No Panel Informationon 07-25 Estimated GFR (MDRD) Amer 124 mL/min >60 [facility] Work Phone: Comment on above: GFR Calc Estimated GFR (MDRD) Non-Af Amer 102 mL/min >60 [facility] Work Phone: Comment on above: Non- GFR Calc Serum or plasma albumin shane urement (mass/volume)on 07-25-2021 Albumin [Mass/Vol] 3.0 g/dL 3.2-5.0 [facility] Work Phone: Serum or plasma calcium shane urement (mass/volume)on 07-25-2021 Calcium [Mass/Vol] 8.6 mg/dL 8.5-10.1 [facility] Work Phone: Serum or plasma creatinine m easurement (mass/volume)on 07-25-2021 Creatinine [Mass/Vol] 0.61 mg/dL 0.55-1.02 [facility] Work Phone: Comment on above: The validity of the calculated GFR & GFRAA in patients over 70 years has not been determined. Clinical correlation is essential. Serum or plasma transthyreti n measurement (mass/volume)on 07-25-2021 Prealbumin [Mass/Vol] 24.2 mg/dL 20.0-40.0 [facility] Work Phone: Serum or plasma urea nitroge n measurement (mass/volume)on 07-25-2021 Urea nitrogen [Mass/Vol] 14 mg/dL 7-18 [facility] Work Phone: Thin prep Papanicolaou smear with manual screeningon 07-25-2021 Thin prep Papanicolaou smear with manual screening 5 5-15 [facility] Work Phone: Urine osmolality measurement on 07-25-2021 Osmolality (U) [Osmolality] 267 mOsm/KG >50 [facility] Work Phone: Comment on above: Normal Urine Referen ce Ranges Random: 50 - 1200 mOsm/kg H20 depending on fluid intake Random: >850 mOsm/kg after 12 hour fluid restriction 24 hour: ~300 - 900 mOsm/kg H2O ACTHon 07-17-2021 ACTH 44.9 pg/mL Normal 7.2-63.3 [facility] Comment on above: Result Comment: INTE [...] not detected by this assay. Performed By: [facility] [address] [place] [address] Refractory Bricklayer: Aileen Urias MD Performed By: #### L FT3, CORTL, PTH3, HEMDF, PHOS3, MG3, BMP3 #### [facility] [address] [place] [address] #### VD25H #### [facility] [address] [place] [address] Basophil percentageon 2021 Bilirubin [Mass/Vol] 0.30 mg/dL 0.20-1.00 [facility] Work Phone: Comment on above: For patients on eltr ombopag therapy, use of Dimension Agra TBIL is not recommended. Chloride [Moles/Vol] 100 mmol/L 98-107 [facility] Work Phone: Glucose [Mass/Vol] 152 mg/dL 74-106 [facility] Work Phone: Comment on above: Fasting Glucose resu lt greater than or equal to 126 mg/dL suggests DIABETES MELLITUS per A.D.A. criteria. Potassium [Moles/Vol] 3.5 mmol/L 3.5-5.1 [facility] Work Phone: Protein [Mass/Vol] 6.3 g/dL 6.4-8.2 [facility] Work Phone: Sodium [Moles/Vol] 134 mmol/L 136-145 [facility] Work Phone: Laboratory - Chemistry and C hemistry - challengeon 07-16-2021 ALP [Catalytic activity/Vol] 115 U/L 45-117 [facility] Work Phone: ALT [Catalytic activity/Vol] 39 U/L 13-56 [facility] Work Phone: CO2 [Moles/Vol] 26.0 mmol/L 21.0-32.0 [facility] Work Phone: Globulin (S) [Mass/Vol] 3.4 g/dL 2.2-4.2 [facility] Work Phone: Urea nitrogen/Creatinine [Mass ratio] 19.6 mg/mg 10-20 [facility] Work Phone: No Panel Informationon 07-16 Estimated GFR (MDRD) Amer 123 mL/min >60 [facility] Work Phone: Comment on above: GFR Calc Estimated GFR (MDRD) Non-Af Amer 101 mL/min >60 [facility] Work Phone: Comment on above: Non- GFR Calc Parathyroid Hormone (Intact) 36.0 pg/mL 18.4-80.1 [facility] Work Phone: Vitamin D 25-Hydroxy 67.7 ng/mL [facility] Work Phone: Comment on above: Vitamin D 25(OH) Sta tus Range Deficiency <20 ng/mL (50nmol/L) Insufficiency 20 - 30 ng/mL (50 - 75 nmol/L) Sufficiency 30 - 100 ng/mL (75 - 250 nmol/L) Toxicity >100 ng/mL (>250 nmol/L) Serum or plasma albumin shane urement (mass/volume)on 07-16-2021 Albumin [Mass/Vol] 2.9 g/dL 3.2-5.0 [facility] Work Phone: Serum or plasma albumin/glob ulin mass ratioon 07-16-2021 Albumin/Globulin [Mass ratio] 0.9 {ratio} 0.9-2.4 [facility] Work Phone: Serum or plasma calcium shane urement (mass/volume)on 07-16-2021 Calcium [Mass/Vol] 8.4 mg/dL 8.5-10.1 [facility] Work Phone: Serum or plasma creatinine m easurement (mass/volume)on 07-16-2021 Creatinine [Mass/Vol] 0.61 mg/dL 0.55-1.02 [facility] Work Phone: Comment on above: The validity of the calculated GFR & GFRAA in patients over 70 years has not been determined. Clinical correlation is essential. Serum or plasma urea nitroge n measurement (mass/volume)on 07-16-2021 Urea nitrogen [Mass/Vol] 12 mg/dL 7-18 [facility] Work Phone: Thin prep Papanicolaou smear with manual screeningon 07-16-2021 Thin prep Papanicolaou smear with manual screening 27 U/L 15-37 [facility] Work Phone: Thin prep Papanicolaou smear with manual screening 8 5-15 [facility] Work Phone: Thin prep Papanicolaou smear with manual screening 281 mOsm/KG 280-301 [facility] Work Phone: Calcium, Urineon 07-15-2021 Ca/Creat Ratio 98 mg/g Normal 20-300 [facility] Comment on above: Result Comment: REFE RENCE INTERVAL: Calcium/Creatinine Ratio, Urine Access complete set of age- and/or gender-specific reference intervals for this test in the [facility] Test Directory ([employer]). Performed By: [facility] [address] [place] [address] Refractory Bricklayer: Aileen Urias MD Performed By: #### L FT3, CORTL, PTH3, HEMDF, PHOS3, MG3, BMP3 #### [facility] [address], [place] #### VD25H #### [facility] [address] [place] [address] Calcium, Ur mg/day Not Applicable Normal [facility] Comment on above: Result Comment: INTE RPRETIVE INFORMATION: CALCIUM, URINE - mg/day Calcium-free diet: 5-40 mg/d Low calcium diet (800 mg/d or less): 50-150 mg/d Average calcium diet (about 800 mg/d): 100-250 mg/d High calcium diet (800 mg/d or greater): greater than 250 mg/d Performed By: #### L FT3, CORTL, PTH3, HEMDF, PHOS3, MG3, BMP3 #### [address] #### VD25H #### [facility] [address] [place] [address] Calcium, Ur mg/dL 4.6 mg/dL [facility] Comment on above: Performed By: #### L FT3, CORTL, PTH3, HEMDF, PHOS3, MG3, BMP3 #### [address] #### VD25H #### [facility] [address] [place] [address] Collection Period Random [facility] Comment on above: Result Comment: Per [...] CORTL, PTH3, HEMDF, PHOS3, MG3, BMP3 #### [place] [address] [place], [place] #### VD25H #### [facility] [address] [place] [address] Creat, Ur mg/day Not Applicable Normal 500-1400 [facility] Comment on above: Performed By: #### L FT3, CORTL, PTH3, HEMDF, PHOS3, MG3, BMP3 #### [facility] [address] [facility], [place] #### VD25H #### [facility] [address] [place] [address] Creat, Ur mg/dL 47 mg/dL Normal [facility] Comment on above: Performed By: #### L FT3, CORTL, PTH3, HEMDF, PHOS3, MG3, BMP3 #### [place] [address] [address] [facility], [place] #### VD25H #### [facility] [address] [place] [address] Volume Random Normal [facility] Comment on above: Performed By: #### L FT3, CORTL, PTH3, HEMDF, PHOS3, MG3, BMP3 #### [place] [address] [address] [facility], [place] #### VD25H #### [facility] [address] [place] [address] Basic Metabolic Panelon 07-03 Calcium [Mass/Vol] 7.9 mg/dL Low 8.4-10.4 [facility] Comment on above: Performed By: #### L FT3, CORTL, PTH3, HEMDF, PHOS3, MG3, BMP3 #### [place] [address] [address] [facility] #### VD25H #### [facility] [address] [place] [address] Glucose [Mass/Vol] 91 mg/dL Normal 70-100 [facility] Comment on above: Performed By: #### L FT3, CORTL, PTH3, HEMDF, PHOS3, MG3, BMP3 #### [place] [address] [address] [facility] [place] #### VD25H #### [facility] [address] [place] [address] Anion gap [Moles/Vol] 1 mmol/L Low 3-13 [facility] Comment on above: Performed By: #### L FT3, CORTL, PTH3, HEMDF, PHOS3, MG3, BMP3 #### [facility] [address], [place] #### VD25H #### [facility] [address] [place] [address] CO2 [Moles/Vol] 27 mmol/L Normal 22-30 [facility] Comment on above: Performed By: #### L FT3, CORTL, PTH3, HEMDF, PHOS3, MG3, BMP3 #### [facility] [address], [place] #### VD25H #### [facility] [address] [place] [address] Creatinine [Mass/Vol] 0.35 mg/dL Low 0.52-1.25 [facility] Comment on above: Performed By: #### L FT3, CORTL, PTH3, HEMDF, PHOS3, MG3, BMP3 #### [address] #### VD25H #### [facility] [address] [place] [address] eGFR OTHER > 90.0 Normal >60 [facility] Comment on above: Result Comment: KDIG O [...] CORTL, PTH3, HEMDF, PHOS3, MG3, BMP3 #### [address] #### VD25H #### [facility] [address] [place] [address] GFR/1.73 sq M.predicted among blacks MDRD (S/P/Bld) [Vol rate/Area] mL/min/{1.73_m2} Normal >60 [facility] Comment on above: Performed By: #### L FT3, CORTL, PTH3, HEMDF, PHOS3, MG3, BMP3 #### [address] #### VD25H #### [facility] [address] [place] [address] Urea nitrogen [Mass/Vol] 12 mg/dL Normal 9-20 [facility] Comment on above: Performed By: #### L FT3, CORTL, PTH3, HEMDF, PHOS3, MG3, BMP3 #### [address] #### VD25H #### [facility] [address] [place] [address] Chloride [Moles/Vol] 102 mmol/L Normal 98-107 [facility] Comment on above: Performed By: #### L FT3, CORTL, PTH3, HEMDF, PHOS3, MG3, BMP3 #### [address] #### VD25H #### [facility] [address] [place] [address] Potassium [Moles/Vol] 4.0 mmol/L Normal 3.5-5.1 [facility] Comment on above: Performed By: #### L FT3, CORTL, PTH3, HEMDF, PHOS3, MG3, BMP3 #### [address] #### VD25H #### [facility] [employer] [facility] [address] [place] [address] Sodium [Moles/Vol] 130 mmol/L Low 135-145 [facility] Comment on above: Performed By: #### L FT3, CORTL, PTH3, HEMDF, PHOS3, MG3, BMP3 #### [facility] [employer] [facility] [address] [place], [place] #### VD25H #### [facility] [address] [place] [address] Glucose,Bedsideon 07-14-2021 Glucose [Mass/Vol] 97 mg/dL Normal 70-100 [facility] Comment on above: Result Comment: Test performed by glucose meter. Results may be 10%-15% lower than serum/plasma values. (CLIA ID [id number]) Performed By: #### L FT3, CORTL, PTH3, HEMDF, PHOS3, MG3, BMP3 #### [facility] [employer] [address] [address] [place], [place] #### VD25H #### [facility] [employer] [facility] [address] [place] [address] Glucose [Mass/Vol] 121 mg/dL High 70-100 [facility] Comment on above: Result Comment: Test performed by glucose meter. Results may be 10%-15% lower than serum/plasma values. (CLIA ID [id number]) Performed By: #### L FT3, CORTL, PTH3, HEMDF, PHOS3, MG3, BMP3 #### [facility] [employer] [address] [address] [place], [place] #### VD25H #### [facility] [employer] [facility] [address] [place] [address] Hemogram w/ Autodiffon 07-14 Abs Baso Cnt 0.0 10*3/uL Normal 0.0-0.2 [facility] Comment on above: Performed By: #### L FT3, CORTL, PTH3, HEMDF, PHOS3, MG3, BMP3 #### [facility] [employer] [address] [address] [place], [place] #### VD25H #### [facility] [address] [place] [address] Abs Neutrophile Cnt 4.4 10*3/uL Normal 1.8-7.0 [facility] Comment on above: Performed By: #### L FT3, CORTL, PTH3, HEMDF, PHOS3, MG3, BMP3 #### [address] #### VD25H #### [facility] [address] [place] [address] Basophils/100 WBC (Bld) 0.6 % Normal 0.0-2.0 [facility] Comment on above: Performed By: #### L FT3, CORTL, PTH3, HEMDF, PHOS3, MG3, BMP3 #### [address] #### VD25H #### [place] [address] [place] [address] Eosinophils (Bld) [#/Vol] 0.0 10*3/uL Normal 0.0-0.5 [facility] Comment on above: Performed By: #### L FT3, CORTL, PTH3, HEMDF, PHOS3, MG3, BMP3 #### [address] #### VD25H #### [facility] [address] [place] [address] Eosinophils/100 WBC (Bld) 0.4 % Low 1.0-6.0 [facility] Comment on above: Performed By: #### L FT3, CORTL, PTH3, HEMDF, PHOS3, MG3, BMP3 #### [address] #### VD25H #### [facility] [address] [place] [address] Erythrocyte distribution width (RBC) [Ratio] 14.7 % High 11.5-14.5 [facility] Comment on above: Performed By: #### L FT3, CORTL, PTH3, HEMDF, PHOS3, MG3, BMP3 #### [facility] [address] [place], [place] #### VD25H #### [facility] [address] [place] [address] Granulocytes/100 WBC (Bld) 72.3 % Normal 40.0-80.0 [facility] Comment on above: Performed By: #### L FT3, CORTL, PTH3, HEMDF, PHOS3, MG3, BMP3 #### [address] [address] [address] [place], [place] #### VD25H #### [facility] [address] [place] [address] Hematocrit (Bld) [Volume fraction] 26.9 % Low 35.0-47.0 [facility] Comment on above: Performed By: #### L FT3, CORTL, PTH3, HEMDF, PHOS3, MG3, BMP3 #### [address] #### VD25H #### [facility] [address] [place] [address] Hemoglobin (Bld) [Mass/Vol] 9.1 g/dL Low 11.7-16.0 [facility] Comment on above: Performed By: #### L FT3, CORTL, PTH3, HEMDF, PHOS3, MG3, BMP3 #### [address] #### VD25H #### [facility] [address] [place] [address] Lymphocytes (Bld) [#/Vol] 1.2 10*3/uL Normal 1.0-4.3 [facility] Comment on above: Performed By: #### L FT3, CORTL, PTH3, HEMDF, PHOS3, MG3, BMP3 #### [address] #### VD25H #### [facility] [address] [place] [address] Lymphocytes/100 WBC (Bld) 19.6 % Low 20.0-40.0 [facility] Comment on above: Performed By: #### L FT3, CORTL, PTH3, HEMDF, PHOS3, MG3, BMP3 #### [facility] [address] [place], [place] #### VD25H #### [facility] [address] [place] [address] MCH (RBC) [Entitic mass] 31.6 pg Normal 26.0-34.0 [facility] Comment on above: Performed By: #### L FT3, CORTL, PTH3, HEMDF, PHOS3, MG3, BMP3 #### [address] #### VD25H #### [facility] [address] [place] [address] MCHC 33.8 % Normal 32.0-36.0 [facility] Comment on above: Performed By: #### L FT3, CORTL, PTH3, HEMDF, PHOS3, MG3, BMP3 #### [address] #### VD25H #### [facility] [address] [place] [address] MCV (RBC) [Entitic vol] 93.3 fL Normal 79.0-98.0 [facility] Comment on above: Performed By: #### L FT3, CORTL, PTH3, HEMDF, PHOS3, MG3, BMP3 #### [place] [address] [address] [place], [place] #### VD25H #### [facility] [address] [place] [address] Monocytes (Bld) [#/Vol] 0.4 10*3/uL Normal 0.0-0.8 [facility] Comment on above: Performed By: #### L FT3, CORTL, PTH3, HEMDF, PHOS3, MG3, BMP3 #### [address] #### VD25H #### [facility] [address] [place] [address] Monocytes/100 WBC (Bld) 7.1 % Normal 2.0-10.0 [facility] Comment on above: Performed By: #### L FT3, CORTL, PTH3, HEMDF, PHOS3, MG3, BMP3 #### [address] #### VD25H #### [facility] [address] [place] [address] Platelet mean volume (Bld) [Entitic vol] 6.7 fL Low 7.4-10.4 [facility] Comment on above: Performed By: #### L FT3, CORTL, PTH3, HEMDF, PHOS3, MG3, BMP3 #### [address] #### VD25H #### [place] [address] [place] [address] Platelets (Bld) [#/Vol] 280 10*3/uL Normal 140-440 [facility] Comment on above: Performed By: #### L FT3, CORTL, PTH3, HEMDF, PHOS3, MG3, BMP3 #### [address] #### VD25H #### [place] [address] [place] [address] RBC (Bld) [#/Vol] 2.88 10*6/uL Low 3.80-5.20 [facility] Comment on above: Performed By: #### L FT3, CORTL, PTH3, HEMDF, PHOS3, MG3, BMP3 #### [address] #### VD25H #### [place] [address] [place] [address] WBC (Bld) [#/Vol] 6.0 10*3/uL Normal 3.6-10.7 [facility] Comment on above: Performed By: #### L FT3, CORTL, PTH3, HEMDF, PHOS3, MG3, BMP3 #### [facility] [address] [place], [place] #### VD25H #### [facility] [address] [place] [address] Magnesiumon 07-14-2021 Magnesium [Mass/Vol] 1.9 mg/dL Normal 1.6-2.3 [facility] Comment on above: Performed By: #### L FT3, CORTL, PTH3, HEMDF, PHOS3, MG3, BMP3 #### [address] [place], [place] #### VD25H #### [facility] [address] [place] [address] Phosphoruson 07-14-2021 Phosphate [Mass/Vol] 3.7 mg/dL Normal 2.5-4.5 [facility] Comment on above: Performed By: #### L FT3, CORTL, PTH3, HEMDF, PHOS3, MG3, BMP3 #### [address] [place], [place] #### VD25H #### [facility] [address] [place] [address] Basic Metabolic Panelon 07-03 Anion gap [Moles/Vol] 1 mmol/L Low 3-13 [facility] Comment on above: Performed By: #### L FT3, CORTL, PTH3, HEMDF, PHOS3, MG3, BMP3 #### [place] [address] [address] [place], [place] #### VD25H #### [facility] [address] [place] [address] Calcium [Mass/Vol] 8.0 mg/dL Low 8.4-10.4 [facility] Comment on above: Performed By: #### L FT3, CORTL, PTH3, HEMDF, PHOS3, MG3, BMP3 #### [address] #### VD25H #### [facility] [address] [place] [address] CO2 [Moles/Vol] 24 mmol/L Normal 22-30 [facility] Comment on above: Performed By: #### L FT3, CORTL, PTH3, HEMDF, PHOS3, MG3, BMP3 #### [facility] [address] [place], [place] #### VD25H #### [facility] [address] [place] [address] Glucose [Mass/Vol] 147 mg/dL High 70-100 [facility] Comment on above: Performed By: #### L FT3, CORTL, PTH3, HEMDF, PHOS3, MG3, BMP3 #### [place] [address] [address] [place], [place] #### VD25H #### [facility] [address] [place] [address] Urea nitrogen [Mass/Vol] 17 mg/dL Normal 9-20 [facility] Comment on above: Performed By: #### L FT3, CORTL, PTH3, HEMDF, PHOS3, MG3, BMP3 #### [facility] [address] [place] #### VD25H #### [facility] [address] [place] [address] Creatinine [Mass/Vol] 0.45 mg/dL Low 0.52-1.25 [facility] Comment on above: Performed By: #### L FT3, CORTL, PTH3, HEMDF, PHOS3, MG3, BMP3 #### [facility] [address] [place] #### VD25H #### [facility] [address] [place] [address] eGFR OTHER > 90.0 Normal >60 [facility] Comment on above: Result Comment: KDIG O [...] CORTL, PTH3, HEMDF, PHOS3, MG3, BMP3 #### [facility] [address], [place] #### VD25H #### [facility] [address] [place] [address] GFR/1.73 sq M.predicted among blacks MDRD (S/P/Bld) [Vol rate/Area] mL/min/{1.73_m2} Normal >60 [facility] Comment on above: Performed By: #### L FT3, CORTL, PTH3, HEMDF, PHOS3, MG3, BMP3 #### [address] #### VD25H #### [facility] [address] [place] [address] Potassium [Moles/Vol] 4.1 mmol/L Normal 3.5-5.1 [facility] Comment on above: Performed By: #### L FT3, CORTL, PTH3, HEMDF, PHOS3, MG3, BMP3 #### [address] #### VD25H #### [facility] [address] [place] [address] Sodium [Moles/Vol] 128 mmol/L Low 135-145 [facility] Comment on above: Performed By: #### L FT3, CORTL, PTH3, HEMDF, PHOS3, MG3, BMP3 #### [address] #### VD25H #### [facility] [address] [place] [address] Chloride [Moles/Vol] 103 mmol/L Normal 98-107 [facility] Comment on above: Performed By: #### L FT3, CORTL, PTH3, HEMDF, PHOS3, MG3, BMP3 #### [facility] [address] [place] #### VD25H #### [facility] [address] [place] [address] Calcium [Mass/Vol] 7.9 mg/dL Low 8.4-10.4 [facility] Comment on above: Performed By: #### L FT3, CORTL, PTH3, HEMDF, PHOS3, MG3, BMP3 #### [place] [address] [address] [place], [place] #### VD25H #### [facility] [address] [place] [address] Glucose [Mass/Vol] 102 mg/dL High 70-100 [facility] Comment on above: Performed By: #### L FT3, CORTL, PTH3, HEMDF, PHOS3, MG3, BMP3 #### [address] [address] [place], [place] #### VD25H #### [facility] [address] [place] [address] Anion gap [Moles/Vol] 0 mmol/L Low 3-13 [facility] Comment on above: Performed By: #### L FT3, CORTL, PTH3, HEMDF, PHOS3, MG3, BMP3 #### [place] [address] [address] [place] #### VD25H #### [facility] [address] [place] [address] CO2 [Moles/Vol] 24 mmol/L Normal 22-30 [facility] Comment on above: Performed By: #### L FT3, CORTL, PTH3, HEMDF, PHOS3, MG3, BMP3 #### [place] [address] [place], [place] #### VD25H #### [facility] [address] [place] [address] Creatinine [Mass/Vol] 0.39 mg/dL Low 0.52-1.25 [facility] Comment on above: Performed By: #### L FT3, CORTL, PTH3, HEMDF, PHOS3, MG3, BMP3 #### [facility] [address], [place] #### VD25H #### [facility] [address] [place] [address] eGFR OTHER > 90.0 Normal >60 [facility] Comment on above: Result Comment: KDIG O [...] CORTL, PTH3, HEMDF, PHOS3, MG3, BMP3 #### [address] #### VD25H #### [facility] [address] [place] [address] GFR/1.73 sq M.predicted among blacks MDRD (S/P/Bld) [Vol rate/Area] mL/min/{1.73_m2} Normal >60 [facility] Comment on above: Performed By: #### L FT3, CORTL, PTH3, HEMDF, PHOS3, MG3, BMP3 #### [facility] [address] [place], [place] #### VD25H #### [facility] [address] [place] [address] Urea nitrogen [Mass/Vol] 11 mg/dL Normal 9-20 [facility] Comment on above: Performed By: #### L FT3, CORTL, PTH3, HEMDF, PHOS3, MG3, BMP3 #### [facility] [address] [place], [place] #### VD25H #### [facility] [address] [place] [address] Chloride [Moles/Vol] 102 mmol/L Normal 98-107 [facility] Comment on above: Performed By: #### L FT3, CORTL, PTH3, HEMDF, PHOS3, MG3, BMP3 #### [address] #### VD25H #### [facility] [address] [place] [address] Potassium [Moles/Vol] 4.1 mmol/L Normal 3.5-5.1 [facility] Comment on above: Performed By: #### L FT3, CORTL, PTH3, HEMDF, PHOS3, MG3, BMP3 #### [address] #### VD25H #### [facility] [address] [place] [address] Sodium [Moles/Vol] 126 mmol/L Low 135-145 [facility] Comment on above: Performed By: #### L FT3, CORTL, PTH3, HEMDF, PHOS3, MG3, BMP3 #### [address] #### VD25H #### [facility] [address] [place] [address] CULTURE URINEon 07-13-2021 CULTURE URINE 1 Organism Klebsiell a pneumoniae >100,000 CFU/ml ---- 1 Organism ---- Antibiotic Result Intrp ---- Ampicillin(ALAN) R Cefazolin(ALAN) <= 4 S Ceftriaxone(ALAN) <= 1 S Cefepime(ALAN) <= 1 S Aztreonam(ALAN) <= 1 S Amoxicillin/Clavulanic Acid(ALAN) 4 S Ampicillin/Sulbactam(ALAN) 4 S Pip/Tazobactam(ALAN) <= 4 S Meropenem(ALAN) <= 0.25 S Ciprofloxacin(ALAN) <= 0.25 S Trimeth/Sulfa(ALAN) <= 20 S Nitrofurantoin(ALAN) 32 S Gentamicin(ALAN) <= 1 S Amikacin(ALAN) <= 2 S Normal [facility] Comment on above: Performed By: #### L FT3, CORTL, PTH3, HEMDF, PHOS3, MG3, BMP3 #### [employer] [address] [place], [place] #### VD25H #### [employer] [address] [place] [address] Glucose,Bedsideon 07-13-2021 Glucose [Mass/Vol] 211 mg/dL High 70-100 [facility] Comment on above: Result Comment: Test performed by glucose meter. Results may be 10%-15% lower than serum/plasma values. (CLIA ID [id number]) Performed By: #### B GLU #### [employer] [address] [place] [address] Glucose [Mass/Vol] 113 mg/dL High 70-100 [facility] Comment on above: Result Comment: Test performed by glucose meter. Results may be 10%-15% lower than serum/plasma values. (CLIA ID [id number]) Performed By: #### L FT3, CORTL, PTH3, HEMDF, PHOS3, MG3, BMP3 #### [address] #### VD25H #### [facility] [address] [place] [address] Glucose [Mass/Vol] 157 mg/dL High 70-100 [facility] Comment on above: Result Comment: Test performed by glucose meter. Results may be 10%-15% lower than serum/plasma values. (CLIA ID [id number]) Performed By: #### L FT3, CORTL, PTH3, HEMDF, PHOS3, MG3, BMP3 #### [address] #### VD25H #### [place] [address] [place] [place] [address] Glucose [Mass/Vol] 277 mg/dL High 70-100 [facility] Comment on above: Result Comment: Test performed by glucose meter. Results may be 10%-15% lower than serum/plasma values. (CLIA ID [id number]) Performed By: #### L FT3, CORTL, PTH3, HEMDF, PHOS3, MG3, BMP3 #### [address] #### [id number] #### [facility] [address] [place] [address] Hemogram w/ Autodiffon 07-13 Abs Baso Cnt 0.0 10*3/uL Normal 0.0-0.2 [facility] Comment on above: Performed By: #### L FT3, CORTL, PTH3, HEMDF, PHOS3, MG3, BMP3 #### [address] #### VD25H #### [facility] [address] [place] [address] Abs Neutrophile Cnt 5.2 10*3/uL Normal 1.8-7.0 [facility] Comment on above: Performed By: #### L FT3, CORTL, PTH3, HEMDF, PHOS3, MG3, BMP3 #### [facility] [address] [place], [place] #### VD25H #### [facility] [address] [place] [address] Basophils/100 WBC (Bld) 0.6 % Normal 0.0-2.0 S [facility] Comment on above: Performed By: #### L FT3, CORTL, PTH3, HEMDF, PHOS3, MG3, BMP3 #### [address] #### VD25H #### [facility] [address] [place] [address] Eosinophils (Bld) [#/Vol] 0.0 10*3/uL Normal 0.0-0.5 [facility] Comment on above: Performed By: #### L FT3, CORTL, PTH3, HEMDF, PHOS3, MG3, BMP3 #### [address] #### VD25H #### [facility] [address] [place] [address] Eosinophils/100 WBC (Bld) 0.4 % Low 1.0-6.0 [facility] Comment on above: Performed By: #### L FT3, CORTL, PTH3, HEMDF, PHOS3, MG3, BMP3 #### [address] #### VD25H #### [facility] [address] [place] [address] Erythrocyte distribution width (RBC) [Ratio] 14.7 % High 11.5-14.5 [facility] Comment on above: Performed By: #### L FT3, CORTL, PTH3, HEMDF, PHOS3, MG3, BMP3 #### [address] #### VD25H #### [facility] [address] [place] [address] Granulocytes/100 WBC (Bld) 75.7 % Normal 40.0-80.0 [facility] Comment on above: Performed By: #### L FT3, CORTL, PTH3, HEMDF, PHOS3, MG3, BMP3 #### [facility] [address] [place], [place] #### VD25H #### [facility] [address] [place] [address] Hematocrit (Bld) [Volume fraction] 27.5 % Low 35.0-47.0 [facility] Comment on above: Performed By: #### L FT3, CORTL, PTH3, HEMDF, PHOS3, MG3, BMP3 #### [address] #### VD25H #### [facility] [address] [place] [address] Hemoglobin (Bld) [Mass/Vol] 9.3 g/dL Low 11.7-16.0 [facility] Comment on above: Performed By: #### L FT3, CORTL, PTH3, HEMDF, PHOS3, MG3, BMP3 #### [address] #### VD25H #### [facility] [address] [place] [address] Lymphocytes (Bld) [#/Vol] 1.1 10*3/uL Normal 1.0-4.3 [facility] Comment on above: Performed By: #### L FT3, CORTL, PTH3, HEMDF, PHOS3, MG3, BMP3 #### [address] #### VD25H #### [facility] [address] [place] [address] Lymphocytes/100 WBC (Bld) 16.5 % Low 20.0-40.0 [facility] Comment on above: Performed By: #### L FT3, CORTL, PTH3, HEMDF, PHOS3, MG3, BMP3 #### [address] #### VD25H #### [facility] [address] [place] [address] MCH (RBC) [Entitic mass] 31.5 pg Normal 26.0-34.0 [facility] Comment on above: Performed By: #### L FT3, CORTL, PTH3, HEMDF, PHOS3, MG3, BMP3 #### [address] #### VD25H #### [facility] [address] [place] [address] MCHC 33.8 % Normal 32.0-36.0 [facility] Comment on above: Performed By: #### L FT3, CORTL, PTH3, HEMDF, PHOS3, MG3, BMP3 #### [address] #### VD25H #### [place] [address] [place] [address] MCV (RBC) [Entitic vol] 93.2 fL Normal 79.0-98.0 [facility] Comment on above: Performed By: #### L FT3, CORTL, PTH3, HEMDF, PHOS3, MG3, BMP3 #### [address] #### VD25H #### [place] [address] [place] [address] Monocytes (Bld) [#/Vol] 0.5 10*3/uL Normal 0.0-0.8 [facility] Comment on above: Performed By: #### L FT3, CORTL, PTH3, HEMDF, PHOS3, MG3, BMP3 #### [address] #### VD25H #### [facility] [address] [place] [address] Monocytes/100 WBC (Bld) 6.8 % Normal 2.0-10.0 [facility] Comment on above: Performed By: #### L FT3, CORTL, PTH3, HEMDF, PHOS3, MG3, BMP3 #### [facility] [address] [place], [place] #### VD25H #### [facility] [address] [place] [address] Platelet mean volume (Bld) [Entitic vol] 6.4 fL Low 7.4-10.4 [facility] Comment on above: Performed By: #### L FT3, CORTL, PTH3, HEMDF, PHOS3, MG3, BMP3 #### [place] [address] [address] [place], [place] #### VD25H #### [facility] [address] [place] [address] Platelets (Bld) [#/Vol] 281 10*3/uL Normal 140-440 [facility] Comment on above: Performed By: #### L FT3, CORTL, PTH3, HEMDF, PHOS3, MG3, BMP3 #### [place] [address] [address] [place], [place] #### VD25H #### [place] [address] [place] [address] RBC (Bld) [#/Vol] 2.95 10*6/uL Low 3.80-5.20 [facility] Comment on above: Performed By: #### L FT3, CORTL, PTH3, HEMDF, PHOS3, MG3, BMP3 #### [address] #### VD25H #### [place] [address] [place] [address] WBC (Bld) [#/Vol] 6.9 10*3/uL Normal 3.6-10.7 [facility] Comment on above: Performed By: #### L FT3, CORTL, PTH3, HEMDF, PHOS3, MG3, BMP3 #### [address] #### VD25H #### [place] [address] [place] [address] Magnesiumon 07-13-2021 Magnesium [Mass/Vol] 2.1 mg/dL Normal 1.6-2.3 [facility] Comment on above: Performed By: #### L FT3, CORTL, PTH3, HEMDF, PHOS3, MG3, BMP3 #### [address] #### VD25H #### [facility] [address] [place] [address] Osmolality,Urineon 2 Osmolality,Urine 380 mosm/kg Normal 300-1000 [facility] Comment on above: Performed By: #### L FT3, CORTL, PTH3, HEMDF, PHOS3, MG3, BMP3 #### [address] #### VD25H #### [facility] [address] [place] [address] Phosphoruson 07-13-2021 Phosphate [Mass/Vol] 3.1 mg/dL Normal 2.5-4.5 [facility] Comment on above: Performed By: #### L FT3, CORTL, PTH3, HEMDF, PHOS3, MG3, BMP3 #### [address] #### VD25H #### [facility] [address] [place] [address] Sodium, Ur Randomon 07-13-19 22 Sodium [Moles/Vol] 100 mmol/L High 30-90 [facility] Comment on above: Performed By: #### L FT3, CORTL, PTH3, HEMDF, PHOS3, MG3, BMP3 #### [address] #### VD25H #### [facility] [address] [place] [address] Add on test from HISon 07-12 Add on test from HIS Accepted Normal [facility] Comment on above: Result Comment: Spec imen available & acceptable for analysis. Performed By: #### L FT3, CORTL, PTH3, HEMDF, PHOS3, MG3, BMP3 #### [facility] [address] [facility], [place] #### VD25H #### [facility] [address] [place] [address] Basic Metabolic Panelon 07-03 Calcium [Mass/Vol] 6.7 mg/dL Low 8.4-10.4 [facility] Comment on above: Performed By: #### L FT3, CORTL, PTH3, HEMDF, PHOS3, MG3, BMP3 #### [place] [address] [address] [facility] [place] #### VD25H #### [facility] [address] [place] [address] Glucose [Mass/Vol] 109 mg/dL High 70-100 [facility] Comment on above: Performed By: #### L FT3, CORTL, PTH3, HEMDF, PHOS3, MG3, BMP3 #### [address], [place] #### VD25H #### [facility] [address] [place] [address] Urea nitrogen [Mass/Vol] 12 mg/dL Normal 9-20 [facility] Comment on above: Performed By: #### L FT3, CORTL, PTH3, HEMDF, PHOS3, MG3, BMP3 #### [address], [place] #### VD25H #### [facility] [address] [place] [address] Anion gap [Moles/Vol] 4 mmol/L Normal 3-13 [facility] Comment on above: Performed By: #### L FT3, CORTL, PTH3, HEMDF, PHOS3, MG3, BMP3 #### [place] [address] [address] [facility] [place] #### VD25H #### [facility] [address] [place] [address] CO2 [Moles/Vol] 22 mmol/L Normal 22-30 [facility] Comment on above: Performed By: #### L FT3, CORTL, PTH3, HEMDF, PHOS3, MG3, BMP3 #### [facility] [address] [place] [address] #### VD25H #### [facility] [address] [place] [address] Creatinine [Mass/Vol] 0.38 mg/dL Low 0.52-1.25 [facility] Comment on above: Performed By: #### L FT3, CORTL, PTH3, HEMDF, PHOS3, MG3, BMP3 #### [facility] [address] [place], [place] #### VD25H #### [facility] [address] [facility] [place] [address] eGFR OTHER > 90.0 Normal >60 [facility] Comment on above: Result Comment: KDIG O [...] CORTL, PTH3, HEMDF, PHOS3, MG3, BMP3 #### [facility] [address] [place] [address] #### VD25H #### [facility] [address] [place] [address] GFR/1.73 sq M.predicted among blacks MDRD (S/P/Bld) [Vol rate/Area] mL/min/{1.73_m2} Normal >60 [facility] Comment on above: Performed By: #### L FT3, CORTL, PTH3, HEMDF, PHOS3, MG3, BMP3 #### [address] [place], [place] #### VD25H #### [facility] [address] [place] [address] Chloride [Moles/Vol] 103 mmol/L Normal 98-107 [facility] Comment on above: Performed By: #### L FT3, CORTL, PTH3, HEMDF, PHOS3, MG3, BMP3 #### [address] #### VD25H #### [facility] [address] [place] [address] Potassium [Moles/Vol] 3.5 mmol/L Normal 3.5-5.1 [facility] Comment on above: Performed By: #### L FT3, CORTL, PTH3, HEMDF, PHOS3, MG3, BMP3 #### [address] #### VD25H #### [facility] [address] [place] [address] Sodium [Moles/Vol] 129 mmol/L Low 135-145 [facility] Comment on above: Performed By: #### L FT3, CORTL, PTH3, HEMDF, PHOS3, MG3, BMP3 #### [address] #### VD25H #### [facility] [address] [place] [address] Calcium,Ionizedon 07-12-2021 Ionized Ca,Measured 3.80 mg/dL Low 4.30-5.20 [facility] Comment on above: Performed By: #### H EMDF, TROPN, OSM, CMP3, ETOH4, HA1C2 #### [address] pH, Ionized Calcium 7.40 Normal 7.31-7.46 [facility] Comment on above: Performed By: #### H EMDF, TROPN, OSM, CMP3, ETOH4, HA1C2 #### [facility] [address] [place], [place] Cortisolon 07-12-2021 Cortisol 23.6 ug/dL Normal [facility] Comment on above: Result Comment: Befo re 10am 4.5-22.7 ug/dL After 5pm 1.7-14.1 ug/dL Performed By: #### L FT3, CORTL, PTH3, HEMDF, PHOS3, MG3, BMP3 #### [facility] [address] [place], [place] #### VD25H #### [facility] [address] [place] [address] Cortisol 7.8 ug/dL Normal [facility] Comment on above: Result Comment: Befo re 10am 4.5-22.7 ug/dL After 5pm 1.7-14.1 ug/dL Performed By: #### L FT3, CORTL, PTH3, HEMDF, PHOS3, MG3, BMP3 #### [facility] [address] [place], [place] #### VD25H #### [facility] [address] [place] [address] Cortisol 8.7 ug/dL Normal [facility] Comment on above: Result Comment: Befo re 10am 4.5-22.7 ug/dL After 5pm 1.7-14.1 ug/dL Performed By: #### L FT3, CORTL, PTH3, HEMDF, PHOS3, MG3, BMP3 #### [facility] [employer] [facility] [address] [place], [place] #### VD25H #### [facility] [address] [place] [address] Glucose,Bedsideon 07-12-2021 Glucose [Mass/Vol] 128 mg/dL High 70-100 [facility] Comment on above: Result Comment: Test performed by glucose meter. Results may be 10%-15% lower than serum/plasma values. (CLIA ID [id number]) Performed By: #### L FT3, CORTL, PTH3, HEMDF, PHOS3, MG3, BMP3 #### [facility] [address] [place], [place] #### VD25H #### [facility] [address] [place] [address] Glucose [Mass/Vol] 171 mg/dL High 70-100 [facility] Comment on above: Result Comment: Test performed by glucose meter. Results may be 10%-15% lower than serum/plasma values. (CLIA ID [id number]) Performed By: #### H EMDF, TROPN, OSM, CMP3, ETOH4, HA1C2 #### [place] [address] [place], [place] Glucose [Mass/Vol] 96 mg/dL Normal 70-100 [facility] Comment on above: Result Comment: Test performed by glucose meter. Results may be 10%-15% lower than serum/plasma values. (CLIA ID [id number]) Performed By: #### H EMDF, TROPN, OSM, CMP3, ETOH4, HA1C2 #### [place] [address] [place], [place] Hemogram w/ Autodiffon 07-12 Abs Baso Cnt 0.0 10*3/uL Normal 0.0-0.2 [facility] Comment on above: Performed By: #### L FT3, CORTL, PTH3, HEMDF, PHOS3, MG3, BMP3 #### [address] #### VD25H #### [facility] [address] [place] [address] Abs Neutrophile Cnt 5.8 10*3/uL Normal 1.8-7.0 [facility] Comment on above: Performed By: #### L FT3, CORTL, PTH3, HEMDF, PHOS3, MG3, BMP3 #### [address] #### VD25H #### [facility] [address] [place] [address] Basophils/100 WBC (Bld) 0.5 % Normal 0.0-2.0 S [facility] Comment on above: Performed By: #### L FT3, CORTL, PTH3, HEMDF, PHOS3, MG3, BMP3 #### [facility] [address] [place], [place] #### VD25H #### [facility] [address] [place] [address] Eosinophils (Bld) [#/Vol] 0.0 10*3/uL Normal 0.0-0.5 [facility] Comment on above: Performed By: #### L FT3, CORTL, PTH3, HEMDF, PHOS3, MG3, BMP3 #### [address] #### VD25H #### [facility] [address] [place] [address] Eosinophils/100 WBC (Bld) 0.2 % Low 1.0-6.0 [facility] Comment on above: Performed By: #### L FT3, CORTL, PTH3, HEMDF, PHOS3, MG3, BMP3 #### [address] #### VD25H #### [facility] [address] [place] [address] Erythrocyte distribution width (RBC) [Ratio] 14.6 % High 11.5-14.5 [facility] Comment on above: Performed By: #### L FT3, CORTL, PTH3, HEMDF, PHOS3, MG3, BMP3 #### [address] #### VD25H #### [facility] [address] [place] [address] Granulocytes/100 WBC (Bld) 81.5 % High 40.0-80.0 [facility] Comment on above: Performed By: #### L FT3, CORTL, PTH3, HEMDF, PHOS3, MG3, BMP3 #### [address] #### VD25H #### [facility] [address] [place] [address] Hematocrit (Bld) [Volume fraction] 25.9 % Low 35.0-47.0 [facility] Comment on above: Performed By: #### L FT3, CORTL, PTH3, HEMDF, PHOS3, MG3, BMP3 #### [address] #### VD25H #### [facility] [address] [place] [address] Hemoglobin (Bld) [Mass/Vol] 8.8 g/dL Low 11.7-16.0 [facility] Comment on above: Performed By: #### L FT3, CORTL, PTH3, HEMDF, PHOS3, MG3, BMP3 #### [address] #### VD25H #### [place] [address] [place] [address] Lymphocytes (Bld) [#/Vol] 0.8 10*3/uL Low 1.0-4.3 [facility] Comment on above: Performed By: #### L FT3, CORTL, PTH3, HEMDF, PHOS3, MG3, BMP3 #### [address] #### VD25H #### [place] [address] [place] [address] Lymphocytes/100 WBC (Bld) 10.5 % Low 20.0-40.0 [facility] Comment on above: Performed By: #### L FT3, CORTL, PTH3, HEMDF, PHOS3, MG3, BMP3 #### [address] #### VD25H #### [place] [address] [place] [address] MCH (RBC) [Entitic mass] 31.8 pg Normal 26.0-34.0 [facility] Comment on above: Performed By: #### L FT3, CORTL, PTH3, HEMDF, PHOS3, MG3, BMP3 #### [facility] [address] [place], [place] #### VD25H #### [facility] [address] [place] [address] MCHC 34.1 % Normal 32.0-36.0 [facility] Comment on above: Performed By: #### L FT3, CORTL, PTH3, HEMDF, PHOS3, MG3, BMP3 #### [address] #### VD25H #### [facility] [address] [place] [address] MCV (RBC) [Entitic vol] 93.2 fL Normal 79.0-98.0 [facility] Comment on above: Performed By: #### L FT3, CORTL, PTH3, HEMDF, PHOS3, MG3, BMP3 #### [address] #### VD25H #### [facility] [address] [place] [address] Monocytes (Bld) [#/Vol] 0.5 10*3/uL Normal 0.0-0.8 [facility] Comment on above: Performed By: #### L FT3, CORTL, PTH3, HEMDF, PHOS3, MG3, BMP3 #### [address] #### VD25H #### [facility] [address] [place] [address] Monocytes/100 WBC (Bld) 7.3 % Normal 2.0-10.0 [facility] Comment on above: Performed By: #### L FT3, CORTL, PTH3, HEMDF, PHOS3, MG3, BMP3 #### [address] #### VD25H #### [facility] [address] [place] [address] Platelet mean volume (Bld) [Entitic vol] 6.3 fL Low 7.4-10.4 [facility] Comment on above: Performed By: #### L FT3, CORTL, PTH3, HEMDF, PHOS3, MG3, BMP3 #### [facility] [address] [place], [place] #### VD25H #### [facility] [address] [place] [address] Platelets (Bld) [#/Vol] 267 10*3/uL Normal 140-440 [facility] Comment on above: Performed By: #### L FT3, CORTL, PTH3, HEMDF, PHOS3, MG3, BMP3 #### [place] [address] [address] [place], [place] #### VD25H #### [facility] [address] [place] [address] RBC (Bld) [#/Vol] 2.77 10*6/uL Low 3.80-5.20 [facility] Comment on above: Performed By: #### L FT3, CORTL, PTH3, HEMDF, PHOS3, MG3, BMP3 #### [place] [address] [address] [place], [place] #### VD25H #### [facility] [address] [place] [address] WBC (Bld) [#/Vol] 7.2 10*3/uL Normal 3.6-10.7 [facility] Comment on above: Performed By: #### L FT3, CORTL, PTH3, HEMDF, PHOS3, MG3, BMP3 #### [place] [address] [address] [place] #### VD25H #### [facility] [address] [place] [address] Hepatic Functionon 2 ALP [Catalytic activity/Vol] 83 U/L Normal 38-126 [facility] Comment on above: Performed By: #### L FT3, CORTL, PTH3, HEMDF, PHOS3, MG3, BMP3 #### [place] [address] [address] [place], [place] #### VD25H #### [facility] [address] [place] [address] ALT [Catalytic activity/Vol] 16 U/L Normal 0-34 [facility] Comment on above: Result Comment: The ALT test is performed by an updated assay method. Please note that the reference intervals have been changed and are now sex specific. Performed By: #### L FT3, CORTL, PTH3, HEMDF, PHOS3, MG3, BMP3 #### [address] #### VD25H #### [facility] [address] [place] [address] AST [Catalytic activity/Vol] 25 U/L Normal 15-46 [facility] Comment on above: Performed By: #### L FT3, CORTL, PTH3, HEMDF, PHOS3, MG3, BMP3 #### [address] #### VD25H #### [place] [address] [place] [address] Bilirubin [Mass/Vol] 0.3 mg/dL Normal 0.2-1.3 [facility] Comment on above: Performed By: #### L FT3, CORTL, PTH3, HEMDF, PHOS3, MG3, BMP3 #### [address] #### VD25H #### [address] [place] [address] Bilirubin.indirect [Mass/Vol] 0.0 mg/dL Normal 0.0-0.3 [facility] Comment on above: Performed By: #### L FT3, CORTL, PTH3, HEMDF, PHOS3, MG3, BMP3 #### [address] #### VD25H #### [place] [address] [place] [address] Protein [Mass/Vol] 4.9 g/dL Low 6.3-8.2 [facility] Comment on above: Performed By: #### L FT3, CORTL, PTH3, HEMDF, PHOS3, MG3, BMP3 #### [address] #### VD25H #### [facility] [address] [place] [address] Albumin [Mass/Vol] 2.6 g/dL Low 3.5-5.0 [facility] Comment on above: Performed By: #### L FT3, CORTL, PTH3, HEMDF, PHOS3, MG3, BMP3 #### [address] #### VD25H #### [facility] [address] [place] [address] Magnesiumon 07-12-2021 Magnesium [Mass/Vol] 2.2 mg/dL Normal 1.6-2.3 [facility] Comment on above: Performed By: #### L FT3, CORTL, PTH3, HEMDF, PHOS3, MG3, BMP3 #### [address] #### VD25H #### [facility] [address] [place] [address] PTH, Intacton 07-12-2021 PTH, Intact 236.5 pg/mL High 8.0-54.0 [facility] Comment on above: Performed By: #### L FT3, CORTL, PTH3, HEMDF, PHOS3, MG3, BMP3 #### [place] [address] [place], [place] #### VD25H #### [facility] [address] [place] [address] Phosphoruson 07-12-2021 Phosphate [Mass/Vol] 2.6 mg/dL Normal 2.5-4.5 [facility] Comment on above: Performed By: #### L FT3, CORTL, PTH3, HEMDF, PHOS3, MG3, BMP3 #### [address] #### VD25H #### [facility] [address] [place] [address] Sodiumon 07-12-2021 Sodium [Moles/Vol] 126 mmol/L Low 135-145 [facility] Comment on above: Performed By: #### B GLU #### [facility] [address] [place], [place] Sodium [Moles/Vol] 129 mmol/L Low 135-145 [facility] Comment on above: Performed By: #### L FT3, CORTL, PTH3, HEMDF, PHOS3, MG3, BMP3 #### [facility] [address] [place], [place] #### VD25H #### [facility] [address] [place] [address] Vit D 25-OH, Totalon 022 Vit D 25-OH, Total 58 ng/mL Normal 30-100 [facility] Comment on above: Result Comment: Ther apy is based on measurement of Total 25-OHD with the following classification levels: Less than 20 ng/mL: Indicative of Vit D deficiency 20-30 ng/mL: Suggests Vit D insufficiency Optimal: Greater than or equal to 30 ng/mL Test performed by [employer] Competitive Immunoassay, measuring Total Vitamin D, not individual fractions. Performed By: #### L FT3, CORTL, PTH3, HEMDF, PHOS3, MG3, BMP3 #### [facility] [address] [place], [place] #### VD25H #### [facility] [address] [place] [address] Basic Metabolic Panelon - Calcium [Mass/Vol] 7.0 mg/dL Low 8.4-10.4 [facility] Comment on above: Performed By: #### L FT3, CORTL, PTH3, HEMDF, PHOS3, MG3, BMP3 #### [facility] [address] [place], [place] #### VD25H #### [facility] [address] [place] [address] Anion gap [Moles/Vol] 1 mmol/L Low 3-13 [facility] Comment on above: Performed By: #### L FT3, CORTL, PTH3, HEMDF, PHOS3, MG3, BMP3 #### [facility] [address] [place], [place] #### VD25H #### [facility] [address] [place] [address] CO2 [Moles/Vol] 24 mmol/L Normal 22-30 [facility] Comment on above: Performed By: #### L FT3, CORTL, PTH3, HEMDF, PHOS3, MG3, BMP3 #### [facility] [address] [place] #### VD25H #### [facility] [address] [place] [address] Creatinine [Mass/Vol] 0.49 mg/dL Low 0.52-1.25 [facility] Comment on above: Performed By: #### L FT3, CORTL, PTH3, HEMDF, PHOS3, MG3, BMP3 #### [facility] [address] [place] #### VD25H #### [facility] [address] [place] [address] eGFR OTHER > 90.0 Normal >60 [facility] Comment on above: Result Comment: KDIG O [...] CORTL, PTH3, HEMDF, PHOS3, MG3, BMP3 #### [facility] [address] [place], [place] #### VD25H #### [facility] [address] [place] [address] GFR/1.73 sq M.predicted among blacks MDRD (S/P/Bld) [Vol rate/Area] mL/min/{1.73_m2} Normal >60 [facility] Comment on above: Performed By: #### L FT3, CORTL, PTH3, HEMDF, PHOS3, MG3, BMP3 #### [address] [place], [place] #### VD25H #### [facility] [address] [place] [address] Glucose [Mass/Vol] 95 mg/dL Normal 70-100 [facility] Comment on above: Performed By: #### L FT3, CORTL, PTH3, HEMDF, PHOS3, MG3, BMP3 #### [address] #### VD25H #### [facility] [address] [place] [address] Urea nitrogen [Mass/Vol] 14 mg/dL Normal 9-20 [facility] Comment on above: Performed By: #### L FT3, CORTL, PTH3, HEMDF, PHOS3, MG3, BMP3 #### [address] #### VD25H #### [facility] [address] [place] [address] Potassium [Moles/Vol] 3.8 mmol/L Normal 3.5-5.1 [facility] Comment on above: Performed By: #### L FT3, CORTL, PTH3, HEMDF, PHOS3, MG3, BMP3 #### [address] [facility], [place] #### [id number] #### [facility] [address] [place] [address] Sodium [Moles/Vol] 117 mmol/L Critically low 135-145 [facility] Comment on above: Performed By: #### L FT3, CORTL, PTH3, HEMDF, PHOS3, MG3, BMP3 #### [place] [address] [place], [place] #### VD25H #### [facility] [address] [place] [address] Chloride [Moles/Vol] 92 mmol/L Low 98-107 [facility] Comment on above: Performed By: #### L FT3, CORTL, PTH3, HEMDF, PHOS3, MG3, BMP3 #### [place] [address] [place], [place] #### VD25H #### [facility] [address] [place] [address] Complete Urinalysison 2021 Appearance (U) Turbid Abnormal Clear [facility] Comment on above: Result Comment: . Performed By: #### L FT3, CORTL, PTH3, HEMDF, PHOS3, MG3, BMP3 #### [address] #### [id number] #### [facility] [address] [place] [address] Bacteria Moderate Abnormal Negative [facility] Comment on above: Result Comment: . Performed By: #### L FT3, CORTL, PTH3, HEMDF, PHOS3, MG3, BMP3 #### [address] #### VD25H #### [facility] [address] [place] [address] Bilirubin,Urine Negative Normal Negative [facility] Comment on above: Result Comment: . Performed By: #### L FT3, CORTL, PTH3, HEMDF, PHOS3, MG3, BMP3 #### [address] [place], [place] #### VD25H #### [facility] [address] [place] [address] Cast, Hyaline Negative Normal Negative [facility] Comment on above: Result Comment: . Performed By: #### L FT3, CORTL, PTH3, HEMDF, PHOS3, MG3, BMP3 #### [facility] [address] [place], [place] #### VD25H #### [facility] [address] [place] [address] Color (U) Light-Yellow Normal Lt. Yellow [facility] Comment on above: Result Comment: . Performed By: #### L FT3, CORTL, PTH3, HEMDF, PHOS3, MG3, BMP3 #### [place] [address] [address] [place], [place] #### VD25H #### [facility] [address] [place] [address] Glucose Ql (U) Normal Normal Normal (<70) [facility] Comment on above: Result Comment: . Performed By: #### L FT3, CORTL, PTH3, HEMDF, PHOS3, MG3, BMP3 #### [place] [address] [address] [place] #### VD25H #### [facility] [address] [place] [address] Ketone,Urine Negative Normal Negative [facility] Comment on above: Result Comment: . Performed By: #### L FT3, CORTL, PTH3, HEMDF, PHOS3, MG3, BMP3 #### [place] [address] [address] [place] #### VD25H #### [facility] [address] [place] [address] Leukocytes,Urine 500 Marquez/uL Abnormal Negative [facility] Comment on above: Result Comment: . Performed By: #### L FT3, CORTL, PTH3, HEMDF, PHOS3, MG3, BMP3 #### [facility] [address] [place] #### VD25H #### [facility] [address] [place] [address] Mucous Threads Few Normal Negative [facility] Comment on above: Result Comment: . Performed By: #### L FT3, CORTL, PTH3, HEMDF, PHOS3, MG3, BMP3 #### [facility] [address] [place] #### VD25H #### [facility] [address] [place] [address] Nitrites,Urine Negative Normal Negative [facility] Comment on above: Result Comment: . Performed By: #### L FT3, CORTL, PTH3, HEMDF, PHOS3, MG3, BMP3 #### [place] [address] [address] [place] #### VD25H #### [facility] [address] [place] [address] Occult Blood,Urine 0.06 mg/dL Abnormal Negative [facility] Comment on above: Result Comment: . Performed By: #### L FT3, CORTL, PTH3, HEMDF, PHOS3, MG3, BMP3 #### [place] [address] [address] [place] #### VD25H #### [facility] [address] [place] [address] pH,Urine 6.0 Normal 5.0-8.0 [facility] Comment on above: Result Comment: . Performed By: #### L FT3, CORTL, PTH3, HEMDF, PHOS3, MG3, BMP3 #### [place] [address] [address] [place] #### VD25H #### [facility] [address] [place] [address] Protein (U) [Mass/Vol] 30 mg/dL Abnormal Negative [facility] Comment on above: Result Comment: . Performed By: #### L FT3, CORTL, PTH3, HEMDF, PHOS3, MG3, BMP3 #### [place] [address] [address] [place] #### VD25H #### [facility] [address] [place] [address] RBC, Urine 6 - 10 Abnormal 0-2 [facility] Comment on above: Result Comment: . Performed By: #### L FT3, CORTL, PTH3, HEMDF, PHOS3, MG3, BMP3 #### [facility] [address] [place] #### VD25H #### [facility] [address] [place] [address] Specific [place],Urine 1.007 Normal 1.005 - 1.030 [facility] Comment on above: Result Comment: . Performed By: #### L FT3, CORTL, PTH3, HEMDF, PHOS3, MG3, BMP3 #### [facility] [address] [place] #### VD25H #### [facility] [address] [place] [address] Squamous Epithelial 3 - 5 Normal 3-5 [facility] Comment on above: Result Comment: . Performed By: #### L FT3, CORTL, PTH3, HEMDF, PHOS3, MG3, BMP3 #### [place] [address] [address] [place] #### VD25H #### [facility] [address] [place] [address] Urobilinogen,Urine Normal Normal Normal (0-1) [facility] Comment on above: Result Comment: . Performed By: #### L FT3, CORTL, PTH3, HEMDF, PHOS3, MG3, BMP3 #### [place] [address] [address] [place] #### VD25H #### [facility] [address] [place] [address] WBC, Urine 51 - 100 Abnormal 0-5 [facility] Comment on above: Result Comment: . Performed By: #### L FT3, CORTL, PTH3, HEMDF, PHOS3, MG3, BMP3 #### [place] [address] [address] [place] #### VD25H #### [facility] [address] [place] [address] Free T4on 07-11-2021 Free T4 [Mass/Vol] 1.57 ng/dL Normal 0.78-2.19 [facility] Comment on above: Performed By: #### L FT3, CORTL, PTH3, HEMDF, PHOS3, MG3, BMP3 #### [facility] [employer] [facility] [address] [place], [place] #### VD25H #### [facility] [address] [place] [address] Glucose,Bedsideon 07-11-2021 Glucose [Mass/Vol] 104 mg/dL High 70-100 [facility] Comment on above: Result Comment: Test performed by glucose meter. Results may be 10%-15% lower than serum/plasma values. (CLIA ID [id number]) Performed By: #### B GLU #### [facility] [employer] [address] Glucose [Mass/Vol] 128 mg/dL High 70-100 [facility] Comment on above: Result Comment: Test performed by glucose meter. Results may be 10%-15% lower than serum/plasma values. (CLIA ID [id number]) Performed By: #### L FT3, CORTL, PTH3, HEMDF, PHOS3, MG3, BMP3 #### [facility] [address] [place], [place] #### VD25H #### [facility] [address] [place] [address] Glucose [Mass/Vol] 139 mg/dL High 70-100 [facility] Comment on above: Result Comment: Test performed by glucose meter. Results may be 10%-15% lower than serum/plasma values. (CLIA ID [id number]) Performed By: #### L FT3, CORTL, PTH3, HEMDF, PHOS3, MG3, BMP3 #### [facility] [address] [place], [place] #### VD25H #### [facility] [employer] [facility] [address] [place] [address] Hemogram w/ Autodiffon 07-11 Abs Baso Cnt 0.0 10*3/uL Normal 0.0-0.2 [facility] Comment on above: Performed By: #### L FT3, CORTL, PTH3, HEMDF, PHOS3, MG3, BMP3 #### [address] #### VD25H #### [facility] [address] [place] [address] Abs Neutrophile Cnt 7.0 10*3/uL Normal 1.8-7.0 [facility] Comment on above: Performed By: #### L FT3, CORTL, PTH3, HEMDF, PHOS3, MG3, BMP3 #### [address] #### VD25H #### [facility] [address] [place] [address] Basophils/100 WBC (Bld) 0.3 % Normal 0.0-2.0 [facility] Comment on above: Performed By: #### L FT3, CORTL, PTH3, HEMDF, PHOS3, MG3, BMP3 #### [address] #### VD25H #### [facility] [address] [place] [address] Eosinophils (Bld) [#/Vol] 0.0 10*3/uL Normal 0.0-0.5 [facility] Comment on above: Performed By: #### L FT3, CORTL, PTH3, HEMDF, PHOS3, MG3, BMP3 #### [address] #### VD25H #### [facility] [address] [place] [address] Eosinophils/100 WBC (Bld) 0.2 % Low 1.0-6.0 [facility] Comment on above: Performed By: #### L FT3, CORTL, PTH3, HEMDF, PHOS3, MG3, BMP3 #### [address] #### VD25H #### [facility] [address] [place] [address] Erythrocyte distribution width (RBC) [Ratio] 14.5 % Normal 11.5-14.5 [facility] Comment on above: Performed By: #### L FT3, CORTL, PTH3, HEMDF, PHOS3, MG3, BMP3 #### [facility] [address] [place], [place] #### VD25H #### [facility] [address] [place] [address] Granulocytes/100 WBC (Bld) 81.7 % High 40.0-80.0 [facility] Comment on above: Performed By: #### L FT3, CORTL, PTH3, HEMDF, PHOS3, MG3, BMP3 #### [address] #### VD25H #### [facility] [address] [place] [address] Hematocrit (Bld) [Volume fraction] 28.2 % Low 35.0-47.0 [facility] Comment on above: Performed By: #### L FT3, CORTL, PTH3, HEMDF, PHOS3, MG3, BMP3 #### [address] #### VD25H #### [facility] [address] [place] [address] Hemoglobin (Bld) [Mass/Vol] 9.7 g/dL Low 11.7-16.0 [facility] Comment on above: Performed By: #### L FT3, CORTL, PTH3, HEMDF, PHOS3, MG3, BMP3 #### [address] #### VD25H #### [facility] [address] [place] [address] Lymphocytes (Bld) [#/Vol] 0.9 10*3/uL Low 1.0-4.3 [facility] Comment on above: Performed By: #### L FT3, CORTL, PTH3, HEMDF, PHOS3, MG3, BMP3 #### [address] #### VD25H #### [facility] [address] [place] [address] Lymphocytes/100 WBC (Bld) 10.3 % Low 20.0-40.0 [facility] Comment on above: Performed By: #### L FT3, CORTL, PTH3, HEMDF, PHOS3, MG3, BMP3 #### [facility] [address] [place] #### VD25H #### [facility] [address] [place] [address] MCH (RBC) [Entitic mass] 31.6 pg Normal 26.0-34.0 [facility] Comment on above: Performed By: #### L FT3, CORTL, PTH3, HEMDF, PHOS3, MG3, BMP3 #### [address] #### VD25H #### [facility] [address] [place] [address] MCHC 34.4 % Normal 32.0-36.0 [facility] Comment on above: Performed By: #### L FT3, CORTL, PTH3, HEMDF, PHOS3, MG3, BMP3 #### [place] [address] [place], [place] #### VD25H #### [facility] [address] [place] [address] MCV (RBC) [Entitic vol] 91.7 fL Normal 79.0-98.0 [facility] Comment on above: Performed By: #### L FT3, CORTL, PTH3, HEMDF, PHOS3, MG3, BMP3 #### [place] [address] [place], [place] #### VD25H #### [facility] [address] [place] [address] Monocytes (Bld) [#/Vol] 0.6 10*3/uL Normal 0.0-0.8 [facility] Comment on above: Performed By: #### L FT3, CORTL, PTH3, HEMDF, PHOS3, MG3, BMP3 #### [facility] [address] [place], [place] #### VD25H #### [facility] [address] [place] [address] Monocytes/100 WBC (Bld) 7.5 % Normal 2.0-10.0 [facility] Comment on above: Performed By: #### L FT3, CORTL, PTH3, HEMDF, PHOS3, MG3, BMP3 #### [address] [place], [place] #### VD25H #### [facility] [address] [place] [address] Platelet mean volume (Bld) [Entitic vol] 6.5 fL Low 7.4-10.4 [facility] Comment on above: Performed By: #### L FT3, CORTL, PTH3, HEMDF, PHOS3, MG3, BMP3 #### [address] #### VD25H #### [facility] [address] [place] [address] Platelets (Bld) [#/Vol] 284 10*3/uL Normal 140-440 [facility] Comment on above: Performed By: #### L FT3, CORTL, PTH3, HEMDF, PHOS3, MG3, BMP3 #### [address] #### VD25H #### [facility] [address] [place] [address] RBC (Bld) [#/Vol] 3.08 10*6/uL Low 3.80-5.20 [facility] Comment on above: Performed By: #### L FT3, CORTL, PTH3, HEMDF, PHOS3, MG3, BMP3 #### [address] #### VD25H #### [facility] [address] [place] [address] WBC (Bld) [#/Vol] 8.6 10*3/uL Normal 3.6-10.7 [facility] Comment on above: Performed By: #### L FT3, CORTL, PTH3, HEMDF, PHOS3, MG3, BMP3 #### [facility] [address] [place], [place] #### VD25H #### [facility] [address] [place] [address] Hepatic Functionon 2 ALP [Catalytic activity/Vol] 92 U/L Normal 38-126 [facility] Comment on above: Performed By: #### L FT3, CORTL, PTH3, HEMDF, PHOS3, MG3, BMP3 #### [address] #### VD25H #### [place] [address] [place] [address] ALT [Catalytic activity/Vol] 17 U/L Normal 0-34 [facility] Comment on above: Result Comment: The ALT test is performed by an updated assay method. Please note that the reference intervals have been changed and are now sex specific. Performed By: #### L FT3, CORTL, PTH3, HEMDF, PHOS3, MG3, BMP3 #### [address] #### VD25H #### [facility] [address] [place] [address] AST [Catalytic activity/Vol] 28 U/L Normal 15-46 [facility] Comment on above: Performed By: #### L FT3, CORTL, PTH3, HEMDF, PHOS3, MG3, BMP3 #### [address] #### VD25H #### [facility] [address] [place] [address] Bilirubin [Mass/Vol] 0.4 mg/dL Normal 0.2-1.3 [facility] Comment on above: Performed By: #### L FT3, CORTL, PTH3, HEMDF, PHOS3, MG3, BMP3 #### [address] #### VD25H #### [facility] [address] [place] [address] Bilirubin.indirect [Mass/Vol] 0.0 mg/dL Normal 0.0-0.3 [facility] Comment on above: Performed By: #### L FT3, CORTL, PTH3, HEMDF, PHOS3, MG3, BMP3 #### [address] #### VD25H #### [facility] [address] [place] [address] Protein [Mass/Vol] 5.4 g/dL Low 6.3-8.2 [facility] Comment on above: Performed By: #### L FT3, CORTL, PTH3, HEMDF, PHOS3, MG3, BMP3 #### [address] #### VD25H #### [facility] [address] [place] [address] Albumin [Mass/Vol] 2.9 g/dL Low 3.5-5.0 [facility] Comment on above: Performed By: #### L FT3, CORTL, PTH3, HEMDF, PHOS3, MG3, BMP3 #### [address] #### VD25H #### [facility] [address] [place] [address] Magnesiumon 07-11-2021 Magnesium [Mass/Vol] 2.1 mg/dL Normal 1.6-2.3 [facility] Comment on above: Performed By: #### B GLU #### [address] Osmolality,Urineon Osmolality,Urine 193 mosm/kg Low 300-1000 [facility] Comment on above: Performed By: #### L FT3, CORTL, PTH3, HEMDF, PHOS3, MG3, BMP3 #### [address] #### VD25H #### [facility] [address] [place] [address] Phosphoruson 07-11-2021 Phosphate [Mass/Vol] 2.9 mg/dL Normal 2.5-4.5 [facility] Comment on above: Performed By: #### B GLU #### [facility] [address] [place], [place] Sodiumon 07-11-2021 Sodium [Moles/Vol] 123 mmol/L Low 135-145 [facility] Comment on above: Performed By: #### L FT3, CORTL, PTH3, HEMDF, PHOS3, MG3, BMP3 #### [place] [address] [address] [place] #### VD25H #### [facility] [address] [place] [address] Sodium [Moles/Vol] 120 mmol/L Low 135-145 [facility] Comment on above: Performed By: #### L FT3, CORTL, PTH3, HEMDF, PHOS3, MG3, BMP3 #### [place] [address] [address] [place] #### VD25H #### [facility] [address] [place] [address] Sodium [Moles/Vol] 121 mmol/L Low 135-145 [facility] Comment on above: Performed By: #### L FT3, CORTL, PTH3, HEMDF, PHOS3, MG3, BMP3 #### [facility] [address] [place] #### VD25H #### [facility] [address] [place] [address] Sodium [Moles/Vol] 115 mmol/L Critically low 135-145 [facility] Comment on above: Performed By: #### B GLU #### [place] [address] [address] [place], [place] Sodium, Ur Randomon 07-11-19 22 Sodium [Moles/Vol] 6 mmol/L Low 30-90 [facility] Comment on above: Performed By: #### L FT3, CORTL, PTH3, HEMDF, PHOS3, MG3, BMP3 #### [address] #### VD25H #### [facility] [address] [place] [address] Thyroid Stim. Hormoneon Thyroid Stim. Hormone 0.338 u[IU]/mL Low 0.46 5-4.68 0 [facility] Comment on above: Performed By: #### B GLU #### [address] Basic Metabolic Panelon Calcium [Mass/Vol] 8.1 mg/dL Low 8.4-10.4 [facility] Comment on above: Performed By: #### L FT3, CORTL, PTH3, HEMDF, PHOS3, MG3, BMP3 #### [address] #### VD25H #### [facility] [address] [place] [address] Anion gap [Moles/Vol] 5 mmol/L Normal 3-13 [facility] Comment on above: Performed By: #### L FT3, CORTL, PTH3, HEMDF, PHOS3, MG3, BMP3 #### [address] #### VD25H #### [facility] [address] [place] [address] CO2 [Moles/Vol] 24 mmol/L Normal 22-30 [facility] Comment on above: Performed By: #### L FT3, CORTL, PTH3, HEMDF, PHOS3, MG3, BMP3 #### [address] #### VD25H #### [facility] [address] [place] [address] Creatinine [Mass/Vol] 0.40 mg/dL Low 0.52-1.25 [facility] Comment on above: Performed By: #### L FT3, CORTL, PTH3, HEMDF, PHOS3, MG3, BMP3 #### [address] #### VD25H #### [facility] [address] [place] [address] eGFR OTHER > 90.0 Normal >60 [facility] Comment on above: Result Comment: KDIG O [...] CORTL, PTH3, HEMDF, PHOS3, MG3, BMP3 #### [facility] [employer] [address] #### VD25H #### [facility] [address] [place] [address] GFR/1.73 sq M.predicted among blacks MDRD (S/P/Bld) [Vol rate/Area] mL/min/{1.73_m2} Normal >60 [facility] Comment on above: Performed By: #### L FT3, CORTL, PTH3, HEMDF, PHOS3, MG3, BMP3 #### [address] #### VD25H #### [facility] [address] [place] [address] Glucose [Mass/Vol] 94 mg/dL Normal 70-100 [facility] Comment on above: Performed By: #### L FT3, CORTL, PTH3, HEMDF, PHOS3, MG3, BMP3 #### [place] [address] [address] [place] #### VD25H #### [facility] [address] [place] [address] Urea nitrogen [Mass/Vol] 13 mg/dL Normal 9-20 [facility] Comment on above: Performed By: #### L FT3, CORTL, PTH3, HEMDF, PHOS3, MG3, BMP3 #### [place] [address] [address] [place] #### VD25H #### [facility] [address] [place] [address] Potassium [Moles/Vol] 4.0 mmol/L Normal 3.5-5.1 [facility] Comment on above: Performed By: #### L FT3, CORTL, PTH3, HEMDF, PHOS3, MG3, BMP3 #### [place] [address] [address] [place] #### VD25H #### [facility] [address] [place] [address] Sodium [Moles/Vol] 115 mmol/L Critically low 135-145 [facility] Comment on above: Performed By: #### L FT3, CORTL, PTH3, HEMDF, PHOS3, MG3, BMP3 #### [place] [address] [address] [place] #### VD25H #### [facility] [address] [place] [address] Chloride [Moles/Vol] 86 mmol/L Low 98-107 [facility] Comment on above: Performed By: #### L FT3, CORTL, PTH3, HEMDF, PHOS3, MG3, BMP3 #### [place] [address] [address] [place] #### VD25H #### [facility] [address] [place] [address] CR Chest Portableon 07-10-19 22 CR Chest Portable Patient Name: MADELYN CABRERA Diagnostic Radiology ACCESSION EXAM DATE/TIME PROCEDURE ORDERING PROVIDER [id number] 07/10/2021 14:59 EST CR Chest Portable JODI SMITH KIRSTON CPT code 12614 Reason For Exam (CR Chest Portable) PICC [...] Transcribed Date and Time: 07/10/2021 3:54 Normal [facility] CR Chest Portable Patient Name: MADELYN CABRERA Diagnostic Radiology ACCESSION EXAM DATE/TIME PROCEDURE ORDERING PROVIDER [id number] 07/10/2021 06:02 EST CR Chest Portable HECTOR SUTTON CPT code 57906 Reason For Exam (CR Chest Portable) shortness [...] Transcribed Date and Time: 07/10/2021 5:[address] [facility] [address] Head or Brain w/o Contras ton 07-10-2021 CT Head or Brain w/o Contrast Patient Name: MADELYN LOVE Computed Tomography ACCESSION EXAM DATE/TIME PROCEDURE ORDERING PROVIDER [id number] 07/10/2021 01:[address] Head or Brain w/o [id number] -KATIRAI, ANIS Contrast CPT code 43103 Reason For Exam (CT Head or Brain [...] Transcribed Date and Time: 07/10/2021 1:[address] [facility] [address] Spine Cervical w/o Contra ston 07-10-2021 CT Spine Cervical w/o Contrast Patient Name: MADELYN LOVE Computed Tomography ACCESSION EXAM DATE/TIME PROCEDURE ORDERING PROVIDER [id number] 07/10/2021 01:[address] Spine Cervical w/o [id number] -KATIRAI, ANIS Contrast CPT code 40325 Reason For Exam (CT Spine Cervical w/o [...] Transcribed Date and Time: 07/10/2021 1:33 Normal [facility] Glucose,Bedsideon 07-10-2021 Glucose [Mass/Vol] 282 mg/dL High 70-100 [facility] Comment on above: Result Comment: Test performed by glucose meter. Results may be 10%-15% lower than serum/plasma values. (CLIA ID [id number]) Performed By: #### L FT3, CORTL, PTH3, HEMDF, PHOS3, MG3, BMP3 #### [facility] [address] [place] [address] #### VD25H #### [facility] [address] [place] [address] Glucose [Mass/Vol] 136 mg/dL High 70-100 [facility] Comment on above: Result Comment: Test performed by glucose meter. Results may be 10%-15% lower than serum/plasma values. (CLIA ID [id number]) Performed By: #### L FT3, CORTL, PTH3, HEMDF, PHOS3, MG3, BMP3 #### [facility] [address] [place] [address] #### VD25H #### [facility] [address] [place] [address] Glucose [Mass/Vol] 296 mg/dL High 70-100 [facility] Comment on above: Result Comment: Test performed by glucose meter. Results may be 10%-15% lower than serum/plasma values. (CLIA ID [id number]) Performed By: #### L FT3, CORTL, PTH3, HEMDF, PHOS3, MG3, BMP3 #### [facility] [employer] [address] #### VD25H #### [facility] [employer] [facility] [address] [place], [place] Glucose [Mass/Vol] 110 mg/dL High 70-100 [facility] Comment on above: Result Comment: Test performed by glucose meter. Results may be 10%-15% lower than serum/plasma values. (CLIA ID [id number]) Performed By: #### L FT3, CORTL, PTH3, HEMDF, PHOS3, MG3, BMP3 #### [address] #### VD25H #### [facility] [employer] [place] [address] [place] [address] Glucose [Mass/Vol] 133 mg/dL High 70-100 [facility] Comment on above: Result Comment: Test performed by glucose meter. Results may be 10%-15% lower than serum/plasma values. (CLIA ID [id number]) Performed By: #### L FT3, CORTL, PTH3, HEMDF, PHOS3, MG3, BMP3 #### [facility] [employer] [address] #### VD25H #### [facility] [employer] [facility] [address] [place] [address] Hemogram w/ Autodiffon 07-10 Abs Baso Cnt 0.0 10*3/uL Normal 0.0-0.2 [facility] Comment on above: Performed By: #### L FT3, CORTL, PTH3, HEMDF, PHOS3, MG3, BMP3 #### [address] #### VD25H #### [facility] [address] [place], [place] Abs Neutrophile Cnt 3.6 10*3/uL Normal 1.8-7.0 [facility] Comment on above: Performed By: #### L FT3, CORTL, PTH3, HEMDF, PHOS3, MG3, BMP3 #### [address] #### VD25H #### [facility] [address] [place] [address] Basophils/100 WBC (Bld) 0.4 % Normal 0.0-2.0 S [facility] Comment on above: Performed By: #### L FT3, CORTL, PTH3, HEMDF, PHOS3, MG3, BMP3 #### [address] #### VD25H #### [facility] [address] [place] [address] Eosinophils (Bld) [#/Vol] 0.0 10*3/uL Normal 0.0-0.5 [facility] Comment on above: Performed By: #### L FT3, CORTL, PTH3, HEMDF, PHOS3, MG3, BMP3 #### [address] #### VD25H #### [facility] [address] [place] [address] Eosinophils/100 WBC (Bld) 0.2 % Low 1.0-6.0 [facility] Comment on above: Performed By: #### L FT3, CORTL, PTH3, HEMDF, PHOS3, MG3, BMP3 #### [address] #### VD25H #### [facility] [address] [place] [address] Erythrocyte distribution width (RBC) [Ratio] 14.1 % Normal 11.5-14.5 [facility] Comment on above: Performed By: #### L FT3, CORTL, PTH3, HEMDF, PHOS3, MG3, BMP3 #### [address] #### VD25H #### [facility] [address] [place] [address] Granulocytes/100 WBC (Bld) 72.5 % Normal 40.0-80.0 [facility] Comment on above: Performed By: #### L FT3, CORTL, PTH3, HEMDF, PHOS3, MG3, BMP3 #### [address] #### VD25H #### [facility] [address] [place] [address] Hematocrit (Bld) [Volume fraction] 32.8 % Low 35.0-47.0 [facility] Comment on above: Performed By: #### L FT3, CORTL, PTH3, HEMDF, PHOS3, MG3, BMP3 #### [address] #### VD25H #### [place] [address] [place] [address] Hemoglobin (Bld) [Mass/Vol] 11.4 g/dL Low 11.7-16.0 [facility] Comment on above: Performed By: #### L FT3, CORTL, PTH3, HEMDF, PHOS3, MG3, BMP3 #### [address] #### VD25H #### [facility] [address] [place] [address] Lymphocytes (Bld) [#/Vol] 0.8 10*3/uL Low 1.0-4.3 [facility] Comment on above: Performed By: #### L FT3, CORTL, PTH3, HEMDF, PHOS3, MG3, BMP3 #### [address] #### VD25H #### [facility] [address] [place] [address] Lymphocytes/100 WBC (Bld) 17.0 % Low 20.0-40.0 [facility] Comment on above: Performed By: #### L FT3, CORTL, PTH3, HEMDF, PHOS3, MG3, BMP3 #### [facility] [address] [place], [place] #### VD25H #### [facility] [address] [place] [address] MCH (RBC) [Entitic mass] 31.3 pg Normal 26.0-34.0 [facility] Comment on above: Performed By: #### L FT3, CORTL, PTH3, HEMDF, PHOS3, MG3, BMP3 #### [address] #### VD25H #### [facility] [address] [place] [address] MCHC 34.8 % Normal 32.0-36.0 [facility] Comment on above: Performed By: #### L FT3, CORTL, PTH3, HEMDF, PHOS3, MG3, BMP3 #### [address] #### VD25H #### [facility] [address] [place] [address] MCV (RBC) [Entitic vol] 90.0 fL Normal 79.0-98.0 [facility] Comment on above: Performed By: #### L FT3, CORTL, PTH3, HEMDF, PHOS3, MG3, BMP3 #### [address] #### VD25H #### [facility] [address] [place] [address] Monocytes (Bld) [#/Vol] 0.5 10*3/uL Normal 0.0-0.8 [facility] Comment on above: Performed By: #### L FT3, CORTL, PTH3, HEMDF, PHOS3, MG3, BMP3 #### [address] #### VD25H #### [facility] [address] [place] [address] Monocytes/100 WBC (Bld) 9.9 % Normal 2.0-10.0 [facility] Comment on above: Performed By: #### L FT3, CORTL, PTH3, HEMDF, PHOS3, MG3, BMP3 #### [facility] [address] [place], [place] #### VD25H #### [facility] [address] [place] [address] Platelet mean volume (Bld) [Entitic vol] 6.5 fL Low 7.4-10.4 [facility] Comment on above: Performed By: #### L FT3, CORTL, PTH3, HEMDF, PHOS3, MG3, BMP3 #### [place] [address] [place], [place] #### VD25H #### [facility] [address] [place] [address] Platelets (Bld) [#/Vol] 302 10*3/uL Normal 140-440 [facility] Comment on above: Performed By: #### L FT3, CORTL, PTH3, HEMDF, PHOS3, MG3, BMP3 #### [address] #### VD25H #### [facility] [address] [place] [address] RBC (Bld) [#/Vol] 3.64 10*6/uL Low 3.80-5.20 [facility] Comment on above: Performed By: #### L FT3, CORTL, PTH3, HEMDF, PHOS3, MG3, BMP3 #### [place] [address] [address] [place], [place] #### VD25H #### [facility] [address] [place] [address] WBC (Bld) [#/Vol] 4.9 10*3/uL Normal 3.6-10.7 [facility] Comment on above: Performed By: #### L FT3, CORTL, PTH3, HEMDF, PHOS3, MG3, BMP3 #### [address] #### VD25H #### [facility] [address] [place] [address] Hepatic Functionon 2 ALP [Catalytic activity/Vol] 107 U/L Normal 38-126 [facility] Comment on above: Performed By: #### L FT3, CORTL, PTH3, HEMDF, PHOS3, MG3, BMP3 #### [address] #### VD25H #### [facility] [address] [place] [address] ALT [Catalytic activity/Vol] 20 U/L Normal 0-34 [facility] Comment on above: Result Comment: The ALT test is performed by an updated assay method. Please note that the reference intervals have been changed and are now sex specific. Performed By: #### L FT3, CORTL, PTH3, HEMDF, PHOS3, MG3, BMP3 #### [address] #### VD25H #### [facility] [address] [place] [address] AST [Catalytic activity/Vol] 42 U/L Normal 15-46 [facility] Comment on above: Performed By: #### L FT3, CORTL, PTH3, HEMDF, PHOS3, MG3, BMP3 #### [place] [address] [place], [place] #### VD25H #### [facility] [address] [place] [address] Bilirubin [Mass/Vol] 0.7 mg/dL Normal 0.2-1.3 [facility] Comment on above: Performed By: #### L FT3, CORTL, PTH3, HEMDF, PHOS3, MG3, BMP3 #### [address] #### VD25H #### [facility] [address] [place] [address] Bilirubin.indirect [Mass/Vol] 0.0 mg/dL Normal 0.0-0.3 [facility] Comment on above: Performed By: #### L FT3, CORTL, PTH3, HEMDF, PHOS3, MG3, BMP3 #### [place] [address] [address] [place], [place] #### VD25H #### [facility] [address] [place] [address] Protein [Mass/Vol] 6.3 g/dL Normal 6.3-8.2 [facility] Comment on above: Performed By: #### L FT3, CORTL, PTH3, HEMDF, PHOS3, MG3, BMP3 #### [place] [address] [address] [place], [place] #### VD25H #### [facility] [address] [place] [address] Albumin [Mass/Vol] 3.6 g/dL Normal 3.5-5.0 [facility] Comment on above: Performed By: #### L FT3, CORTL, PTH3, HEMDF, PHOS3, MG3, BMP3 #### [address] #### VD25H #### [facility] [address] [place] [address] Magnesiumon 07-10-2021 Magnesium [Mass/Vol] 2.2 mg/dL Normal 1.6-2.3 [facility] Comment on above: Performed By: #### L FT3, CORTL, PTH3, HEMDF, PHOS3, MG3, BMP3 #### [place] [address] [address] [place], [place] #### VD25H #### [facility] [address] [place] [address] Osmolality,Serumon 2 Osmolality,Serum 249 mosm/kg Low 280-300 [facility] Comment on above: Performed By: #### L FT3, CORTL, PTH3, HEMDF, PHOS3, MG3, BMP3 #### [address] #### VD25H #### [facility] [address] [place] [address] Phosphoruson 07-10-2021 Phosphate [Mass/Vol] 3.2 mg/dL Normal 2.5-4.5 [facility] Comment on above: Performed By: #### L FT3, CORTL, PTH3, HEMDF, PHOS3, MG3, BMP3 #### [place] [address] [place], [place] #### VD25H #### [facility] [address] [place] [address] Sodiumon 07-10-2021 Sodium [Moles/Vol] 114 mmol/L Critically low 135-145 [facility] Comment on above: Performed By: #### L FT3, CORTL, PTH3, HEMDF, PHOS3, MG3, BMP3 #### [address] #### VD25H #### [place] [address] [place] [address] Sodium [Moles/Vol] 119 mmol/L Critically low 135-145 [facility] Comment on above: Performed By: #### B GLU #### [address] Sodium [Moles/Vol] 116 mmol/L Critically low 135-145 [facility] Comment on above: Performed By: #### L FT3, CORTL, PTH3, HEMDF, PHOS3, MG3, BMP3 #### [place] [address] [place], [place] #### VD25H #### [place] [address] [place] [address] Sodium [Moles/Vol] 100 mmol/L Critically low 135-145 [facility] Comment on above: Result Comment: Repe ated Repeated Performed By: #### L FT3, CORTL, PTH3, HEMDF, PHOS3, MG3, BMP3 #### [address] #### VD25H #### [place] [address] [place] [address] Sodium [Moles/Vol] 118 mmol/L Critically low 135-145 [facility] Comment on above: Performed By: #### B GLU #### [facility] [address] [place], [place] Sodium [Moles/Vol] 117 mmol/L Critically low 135-145 [facility] Comment on above: Performed By: #### B GLU #### [facility] [address] [place], [place] Add on test from HISon 07-09 Add on test from HIS Accepted Normal [facility] Comment on above: Result Comment: Spec imen available & acceptable for analysis. Performed By: #### L FT3, CORTL, PTH3, HEMDF, PHOS3, MG3, BMP3 #### [place] [address] [address] [place], [place] #### VD25H #### [facility] [address] [place] [address] Add on test from HIS Accepted Normal [facility] Comment on above: Result Comment: Spec imen available & acceptable for analysis. Performed By: #### B GLU #### [place] [address] [address] [place], [place] Add on test from HIS Accepted Normal [facility] Comment on above: Result Comment: Spec imen available & acceptable for analysis. Performed By: #### L FT3, CORTL, PTH3, HEMDF, PHOS3, MG3, BMP3 #### [place] [address] [address] [place], [place] #### VD25H #### [facility] [address] [place] [address] CR Chest Portableon 07-09-19 22 CR Chest Portable Patient Name: MADELYN CABRERA Diagnostic Radiology ACCESSION EXAM DATE/TIME PROCEDURE ORDERING PROVIDER [id number] 07/09/2021 19:06 EST CR Chest Portable [id number] MELANIE SERNA CPT code 15208 Reason For Exam (CR Chest Portable) acute [...] Transcribed Date and Time: 07/09/2021 7:16 Normal [facility] Comp Metabolic Panelon 07-09 ALP [Catalytic activity/Vol] 116 U/L Normal 38-126 [facility] Comment on above: Performed By: #### L FT3, CORTL, PTH3, HEMDF, PHOS3, MG3, BMP3 #### [address] [address] #### VD25H #### [facility] [address] [place] [address] ALT [Catalytic activity/Vol] 20 U/L Normal 0-34 [facility] Comment on above: Result Comment: The ALT test is performed by an updated assay method. Please note that the reference intervals have been changed and are now sex specific. Performed By: #### L FT3, CORTL, PTH3, HEMDF, PHOS3, MG3, BMP3 #### [address] [address] #### VD25H #### [facility] [address] [place] [address] Anion gap [Moles/Vol] 6 mmol/L Normal 3-13 [facility] Comment on above: Performed By: #### L FT3, CORTL, PTH3, HEMDF, PHOS3, MG3, BMP3 #### [address] [place] #### VD25H #### [facility] [address] [place] [address] AST [Catalytic activity/Vol] 51 U/L High 15-46 [facility] Comment on above: Performed By: #### L FT3, CORTL, PTH3, HEMDF, PHOS3, MG3, BMP3 #### [place] [address] [address] [place], [place] #### VD25H #### [facility] [address] [place] [address] Bilirubin [Mass/Vol] 0.8 mg/dL Normal 0.2-1.3 [facility] Comment on above: Performed By: #### L FT3, CORTL, PTH3, HEMDF, PHOS3, MG3, BMP3 #### [address] #### VD25H #### [facility] [address] [place] [address] Calcium [Mass/Vol] 8.2 mg/dL Low 8.4-10.4 [facility] Comment on above: Performed By: #### L FT3, CORTL, PTH3, HEMDF, PHOS3, MG3, BMP3 #### [place] [address] [address] [place], [place] #### VD25H #### [facility] [address] [place] [address] CO2 [Moles/Vol] 24 mmol/L Normal 22-30 [facility] Comment on above: Performed By: #### L FT3, CORTL, PTH3, HEMDF, PHOS3, MG3, BMP3 #### [place] [address] [address] [place], [place] #### VD25H #### [facility] [address] [place] [address] Glucose [Mass/Vol] 138 mg/dL High 70-100 [facility] Comment on above: Performed By: #### L FT3, CORTL, PTH3, HEMDF, PHOS3, MG3, BMP3 #### [facility] [address] [place], [place] #### VD25H #### [facility] [address] [place] [address] Protein [Mass/Vol] 6.9 g/dL Normal 6.3-8.2 [facility] Comment on above: Performed By: #### L FT3, CORTL, PTH3, HEMDF, PHOS3, MG3, BMP3 #### [facility] [address] [facility] [place] [address] #### VD25H #### [facility] [address] [place] [address] Urea nitrogen [Mass/Vol] 19 mg/dL Normal 9-20 [facility] Comment on above: Performed By: #### L FT3, CORTL, PTH3, HEMDF, PHOS3, MG3, BMP3 #### [facility] [address] [place], [place] #### VD25H #### [facility] [address] [place] [address] Creatinine [Mass/Vol] 0.49 mg/dL Low 0.52-1.25 [facility] Comment on above: Performed By: #### L FT3, CORTL, PTH3, HEMDF, PHOS3, MG3, BMP3 #### [facility] [address] [place], [place] #### VD25H #### [facility] [address] [place] [address] eGFR OTHER > 90.0 Normal >60 [facility] Comment on above: Result Comment: KDIG O [...] CORTL, PTH3, HEMDF, PHOS3, MG3, BMP3 #### [address] #### VD25H #### [facility] [address] [place] [address] GFR/1.73 sq M.predicted among blacks MDRD (S/P/Bld) [Vol rate/Area] mL/min/{1.73_m2} Normal >60 [facility] Comment on above: Performed By: #### L FT3, CORTL, PTH3, HEMDF, PHOS3, MG3, BMP3 #### [address] #### VD25H #### [facility] [address] [place] [address] Albumin [Mass/Vol] 4.1 g/dL Normal 3.5-5.0 [facility] Comment on above: Performed By: #### L FT3, CORTL, PTH3, HEMDF, PHOS3, MG3, BMP3 #### [address] #### VD25H #### [facility] [address] [place] [address] Chloride [Moles/Vol] 76 mmol/L Low 98-107 [facility] Comment on above: Performed By: #### L FT3, CORTL, PTH3, HEMDF, PHOS3, MG3, BMP3 #### [address] #### VD25H #### [facility] [address] [place] [address] Potassium [Moles/Vol] 4.3 mmol/L Normal 3.5-5.1 [facility] Comment on above: Performed By: #### L FT3, CORTL, PTH3, HEMDF, PHOS3, MG3, BMP3 #### [address] #### VD25H #### [facility] [address] [place] [address] Sodium [Moles/Vol] 107 mmol/L Critically low 135-145 [facility] Comment on above: Performed By: #### L FT3, CORTL, PTH3, HEMDF, PHOS3, MG3, BMP3 #### [address] [place], [place] #### VD25H #### [facility] [address] [place] [address] Complete Urinalysison 2021 Appearance (U) Clear Normal Clear [facility] Comment on above: Result Comment: . Performed By: #### L FT3, CORTL, PTH3, HEMDF, PHOS3, MG3, BMP3 #### [address] #### VD25H #### [facility] [address] [place] [address] Bacteria LM.HPF (Urine sed) [#/Area] Negative Normal Negative [facility] Comment on above: Result Comment: . Performed By: #### L FT3, CORTL, PTH3, HEMDF, PHOS3, MG3, BMP3 #### [address] #### VD25H #### [facility] [address] [place] [address] Bilirubin,Urine Negative Normal Negative [facility] Comment on above: Result Comment: . Performed By: #### L FT3, CORTL, PTH3, HEMDF, PHOS3, MG3, BMP3 #### [address] #### VD25H #### [facility] [address] [place] [address] Cast, Hyaline Negative Normal Negative [facility] Comment on above: Result Comment: . Performed By: #### L FT3, CORTL, PTH3, HEMDF, PHOS3, MG3, BMP3 #### [facility] [address] [place], [place] #### VD25H #### [facility] [address] [place] [address] Color (U) Light-Yellow Normal Lt. Yellow [facility] Comment on above: Result Comment: . Performed By: #### L FT3, CORTL, PTH3, HEMDF, PHOS3, MG3, BMP3 #### [place] [address] [address] [place], [place] #### VD25H #### [facility] [address] [place] [address] Glucose Ql (U) Normal Normal Normal (<70) [facility] Comment on above: Result Comment: . Performed By: #### L FT3, CORTL, PTH3, HEMDF, PHOS3, MG3, BMP3 #### [place] [address] [address] [place] #### VD25H #### [facility] [address] [place] [address] Ketone,Urine 10 mg/dL Abnormal Negative [facility] Comment on above: Result Comment: . Performed By: #### L FT3, CORTL, PTH3, HEMDF, PHOS3, MG3, BMP3 #### [address] #### VD25H #### [facility] [address] [place] [address] Leukocytes,Urine Negative Normal Negative [facility] Comment on above: Result Comment: . Performed By: #### L FT3, CORTL, PTH3, HEMDF, PHOS3, MG3, BMP3 #### [place] [address] [address] [place] #### VD25H #### [facility] [address] [place] [address] Nitrites,Urine Negative Normal Negative [facility] Comment on above: Result Comment: . Performed By: #### L FT3, CORTL, PTH3, HEMDF, PHOS3, MG3, BMP3 #### [place] [address] [address] [place] #### VD25H #### [facility] [address] [place] [address] Occult Blood,Urine Negative Normal Negative [facility] Comment on above: Result Comment: . Performed By: #### L FT3, CORTL, PTH3, HEMDF, PHOS3, MG3, BMP3 #### [place] [address] [address] [place] #### VD25H #### [facility] [address] [place] [address] pH,Urine 6.0 Normal 5.0-8.0 [facility] Comment on above: Result Comment: . Performed By: #### L FT3, CORTL, PTH3, HEMDF, PHOS3, MG3, BMP3 #### [place] [address] [place] #### VD25H #### [facility] [address] [place] [address] Protein (U) [Mass/Vol] 100 mg/dL Abnormal Negative [facility] Comment on above: Result Comment: . Performed By: #### L FT3, CORTL, PTH3, HEMDF, PHOS3, MG3, BMP3 #### [place] [address] [address] [place] #### VD25H #### [facility] [address] [place] [address] RBC, Urine 0 - 2 Normal 0-2 [facility] Comment on above: Result Comment: . Performed By: #### L FT3, CORTL, PTH3, HEMDF, PHOS3, MG3, BMP3 #### [place] [address] [address] [place] #### VD25H #### [facility] [address] [place] [address] Specific [place],Urine 1.010 Normal 1.005 - 1.030 [facility] Comment on above: Result Comment: . Performed By: #### L FT3, CORTL, PTH3, HEMDF, PHOS3, MG3, BMP3 #### [facility] [address] [facility] [place] [address] #### VD25H #### [facility] [address] [place] [address] Squamous Epithelial 0 - 2 Normal 3-5 [facility] Comment on above: Result Comment: . Performed By: #### L FT3, CORTL, PTH3, HEMDF, PHOS3, MG3, BMP3 #### [facility] [address] [facility] [place] [address] #### VD25H #### [facility] [address] [place] [address] Urobilinogen,Urine Normal Normal Normal (0-1) [facility] Comment on above: Result Comment: . Performed By: #### L FT3, CORTL, PTH3, HEMDF, PHOS3, MG3, BMP3 #### [facility] [address] [facility] #### VD25H #### [facility] [address] [place] [address] WBC, Urine 3 - 5 Normal 0-5 [facility] Comment on above: Result Comment: . Performed By: #### L FT3, CORTL, PTH3, HEMDF, PHOS3, MG3, BMP3 #### [facility] [address] [place] [address] #### VD25H #### [facility] [address] [place] [address] Drugs of Abuseon 07-09-2021 Phencyclidine (PCP), Ur Negative Normal S [facility] Comment on above: Result Comment: The [...] CORTL, PTH3, HEMDF, PHOS3, MG3, BMP3 #### [facility] [address] [place], [place] #### VD25H #### [facility] [address] [place] [address] Methadone, Ur Negative Normal [facility] Comment on above: Performed By: #### L FT3, CORTL, PTH3, HEMDF, PHOS3, MG3, BMP3 #### [place] [address] [address] [facility] [place] #### VD25H #### [facility] [address] [place] [address] Opiates, Ur Positive Normal [facility] Comment on above: Performed By: #### L FT3, CORTL, PTH3, HEMDF, PHOS3, MG3, BMP3 #### [address] [facility] [place] #### VD25H #### [facility] [address] [place] [address] Cocaine, Ur Negative Normal [facility] Comment on above: Performed By: #### L FT3, CORTL, PTH3, HEMDF, PHOS3, MG3, BMP3 #### [place] [address] [address] [facility] #### VD25H #### [facility] [address] [place] [address] Amphetamines, Ur Negative Normal [facility] Comment on above: Performed By: #### L FT3, CORTL, PTH3, HEMDF, PHOS3, MG3, BMP3 #### [place] [address] [address] [facility] #### VD25H #### [facility] [address] [place] [address] Benzodiazepines, Ur Negative Normal [facility] Comment on above: Performed By: #### L FT3, CORTL, PTH3, HEMDF, PHOS3, MG3, BMP3 #### [facility] [address] [place] [address] #### VD25H #### [facility] [employer] [employer] [facility] [address] [place] [address] Barbiturates, Ur Negative Normal [facility] Comment on above: Performed By: #### L FT3, CORTL, PTH3, HEMDF, PHOS3, MG3, BMP3 #### [facility] [address] [place] [address] #### VD25H #### [facility] [address] [place] [address] Oxycodone/Oxymorphine,U r Negative Normal [facility] Comment on above: Performed By: #### L FT3, CORTL, PTH3, HEMDF, PHOS3, MG3, BMP3 #### [facility] [address] [place] [address] #### VD25H #### [place] [employer] [facility] [address] [place] [address] ED Provider Noteon 2 ED Provider Note [...] patient come from an ECF, SNF, Rehab, Longterm or other Congregate setting: No (If yes to above patient needs a Covid-19 test) LUCIA Love is a 75 y.o. female who presents [...] 20 mg by mouth Twice a Week [id number] L NA by Nasal route ALLERGIES Rofecoxib [...] and Family: Not on file ? Attends Worship Services: Not on file ? Active Member of Clubs or Organizations: Not on file ? Attends Club or Organization Meetings: Not on file ? Marital Status: Not on file Intimate Partner Violence: ? Fear of Current or Ex-Partner: Not (more content not included)... Normal [facility] Ethanol Serum/Plasmaon 07-09 Ethanol-Serum/Plasma < 0.010 Normal 0.000-0 .01 0 [facility] Comment on above: Result Comment: NOTE : This result is for medical treatment only. Analysis performed using non-forensic procedures. Performed By: #### L FT3, CORTL, PTH3, HEMDF, PHOS3, MG3, BMP3 #### [facility] [employer] [address] [place] [address] #### VD25H #### [facility] [employer] [address] [place] [address] Hemoglobin A1Con 07-09-2021 Glucose [Mass/Vol] 146 mg/dL Normal [facility] Comment on above: Performed By: #### L FT3, CORTL, PTH3, HEMDF, PHOS3, MG3, BMP3 #### [facility] [address] [place], [place] #### VD25H #### [facility] [address] [place] [address] HbA1c (Bld) [Mass fraction] 6.7 % Abnormal [facility] Comment on above: Result Comment: Norm al less than 5.7% Prediabetes 5.7% to 6.4% Diabetes 6.5% or higher --HgbA1C levels may not be accurate in patients who have renal disease, received recent blood transfusions, are anemic, or who have dyshemoglobinemia. Performed By: #### L FT3, CORTL, PTH3, HEMDF, PHOS3, MG3, BMP3 #### [place] [address] [place], [place] #### VD25H #### [facility] [address] [place] [address] Hemogram w/ Autodiffon 07-09 Abs Baso Cnt 0.0 10*3/uL Normal 0.0-0.2 [facility] Comment on above: Performed By: #### H EMDF, TROPN, OSM, CMP3, ETOH4, HA1C2 #### [place] [address] [address] [place], [place] Abs Neutrophile Cnt 5.6 10*3/uL Normal 1.8-7.0 [facility] Comment on above: Performed By: #### H EMDF, TROPN, OSM, CMP3, ETOH4, HA1C2 #### [place] [address] [place], [place] Basophils/100 WBC (Bld) 0.3 % Normal 0.0-2.0 S [facility] Comment on above: Performed By: #### H EMDF, TROPN, OSM, CMP3, ETOH4, HA1C2 #### [place] [address] [place], [place] Eosinophils (Bld) [#/Vol] 0.0 10*3/uL Normal 0.0-0.5 [facility] Comment on above: Performed By: #### H EMDF, TROPN, OSM, CMP3, ETOH4, HA1C2 #### [address] Eosinophils/100 WBC (Bld) 0.2 % Low 1.0-6.0 [facility] Comment on above: Performed By: #### H EMDF, TROPN, OSM, CMP3, ETOH4, HA1C2 #### [address] Erythrocyte distribution width (RBC) [Ratio] 14.1 % Normal 11.5-14.5 [facility] Comment on above: Performed By: #### H EMDF, TROPN, OSM, CMP3, ETOH4, HA1C2 #### [address] Granulocytes/100 WBC (Bld) 79.1 % Normal 40.0-80.0 [facility] Comment on above: Performed By: #### H EMDF, TROPN, OSM, CMP3, ETOH4, HA1C2 #### [address] Hematocrit (Bld) [Volume fraction] 33.7 % Low 35.0-47.0 [facility] Comment on above: Performed By: #### H EMDF, TROPN, OSM, CMP3, ETOH4, HA1C2 #### [address] Hemoglobin (Bld) [Mass/Vol] 11.8 g/dL Normal 11.7-16.0 [facility] Comment on above: Performed By: #### H EMDF, TROPN, OSM, CMP3, ETOH4, HA1C2 #### [address] Lymphocytes (Bld) [#/Vol] 0.9 10*3/uL Low 1.0-4.3 [facility] Comment on above: Performed By: #### H EMDF, TROPN, OSM, CMP3, ETOH4, HA1C2 #### [address] Lymphocytes/100 WBC (Bld) 12.9 % Low 20.0-40.0 [facility] Comment on above: Performed By: #### H EMDF, TROPN, OSM, CMP3, ETOH4, HA1C2 #### [address] MCH (RBC) [Entitic mass] 31.3 pg Normal 26.0-34.0 [facility] Comment on above: Performed By: #### H EMDF, TROPN, OSM, CMP3, ETOH4, HA1C2 #### [address] MCHC 34.9 % Normal 32.0-36.0 [facility] Comment on above: Performed By: #### H EMDF, TROPN, OSM, CMP3, ETOH4, HA1C2 #### [address] MCV (RBC) [Entitic vol] 89.5 fL Normal 79.0-98.0 S [facility] Comment on above: Performed By: #### H EMDF, TROPN, OSM, CMP3, ETOH4, HA1C2 #### [address] Monocytes (Bld) [#/Vol] 0.5 10*3/uL Normal 0.0-0.8 [facility] Comment on above: Performed By: #### H EMDF, TROPN, OSM, CMP3, ETOH4, HA1C2 #### [address] Monocytes/100 WBC (Bld) 7.5 % Normal 2.0-10.0 S [facility] Comment on above: Performed By: #### H EMDF, TROPN, OSM, CMP3, ETOH4, HA1C2 #### [address] Platelet mean volume (Bld) [Entitic vol] 7.1 fL Low 7.4-10.4 [facility] Comment on above: Performed By: #### H EMDF, TROPN, OSM, CMP3, ETOH4, HA1C2 #### [address] [place] [address] [place] [place], [place] Platelets (Bld) [#/Vol] 318 10*3/uL Normal 140-440 [facility] Comment on above: Performed By: #### H EMDF, TROPN, OSM, CMP3, ETOH4, HA1C2 #### [address] [address] [place] [place], [place] RBC (Bld) [#/Vol] 3.76 10*6/uL Low 3.80-5.20 [facility] Comment on above: Performed By: #### H EMDF, TROPN, OSM, CMP3, ETOH4, HA1C2 #### [address] [address] [place] [place], [place] WBC (Bld) [#/Vol] 7.1 10*3/uL Normal 3.6-10.7 [facility] Comment on above: Performed By: #### H EMDF, TROPN, OSM, CMP3, ETOH4, HA1C2 #### [address] [address] [place], [place] Osmolality,Serumon 2 Osmolality,Serum 236 mosm/kg Low 280-300 [facility] Comment on above: Performed By: #### L FT3, CORTL, PTH3, HEMDF, PHOS3, MG3, BMP3 #### [address] [address] [place], [place] #### [id number] #### [facility] [address] [place] [address] Osmolality,Urineon 2 Osmolality,Urine 320 mosm/kg Normal 300-1000 [facility] Comment on above: Performed By: #### L FT3, CORTL, PTH3, HEMDF, PHOS3, MG3, BMP3 #### [address] [address] [place], [place] #### VD25H #### [facility] [address] [place] [address] SARS-CoV-2 Antigenon 022 SARS-CoV-2 Antigen Negative Normal Negative [facility] Comment on above: Result Comment: A negative result does not rule out the possibility of SARS-CoV-2 infection. NAAT-based methods should be considered for symptomatic patients presenting greater than seven days after onset of symptoms. Method: Lateral flow immunoassay. Fact sheets for healthcare providers and patients can be found at the following sites: https://www.fda.gov/media/987966/download https://www.fda.gov/media/414791/download Performed By: #### L FT3, CORTL, PTH3, HEMDF, PHOS3, MG3, BMP3 #### [address] [address] [place], [place] #### [id number] #### [facility] [address] [place] [address] Sodiumon 07-09-2021 Sodium [Moles/Vol] 111 mmol/L Critically low 135-145 [facility] Comment on above: Performed By: #### L FT3, CORTL, PTH3, HEMDF, PHOS3, MG3, BMP3 #### [facility] [address] [place], [place] #### VD25H #### [facility] [address] [place] [address] Sodium, Ur Randomon 07-09-19 22 Sodium [Moles/Vol] 39 mmol/L Normal 30-90 [facility] Comment on above: Performed By: #### L FT3, CORTL, PTH3, HEMDF, PHOS3, MG3, BMP3 #### [facility] [address] [place], [place] #### VD25H #### [facility] [address] [place] [address] Troponin Ion 07-09-2021 Troponin I.cardiac [Mass/Vol] ng/mL Normal 0.000-0.03 4 [facility] Comment on above: Result Comment: . Performed By: #### L FT3, CORTL, PTH3, HEMDF, PHOS3, MG3, BMP3 #### [address] [address] [place] [address] #### VD25H #### [facility] [address] [place] [address] Laboratory - Microbiology an d Antimicrobial susceptibilityon 06-29-2021 SARS-CoV-2 (COVID-19) RNA MILKA+probe Ql (Unsp spec) Detected Not Detect [facility] Work Phone: Comment on above: Normal Reference Ran ge: Not DetectedMethod:(RT-PCR) real-time reverse transcriptase PCRLuminex Guitar Party Instrument*The Food and Drug Administration (FDA) has issued an Emergency Use Authorization (EAU) for the Guitar Party SARS-CoV-2 Assay for the rapid detection of [...] percentageon 2021 Chloride [Moles/Vol] 96 mmol/L 98-107 [facility] Work Phone: Glucose [Mass/Vol] 171 mg/dL 74-106 [facility] Work Phone: Comment on above: Fasting Glucose resu lt greater than or equal to 126 mg/dL suggests DIABETES MELLITUS per A.D.A. criteria. Potassium [Moles/Vol] 4.4 mmol/L 3.5-5.1 [facility] Work Phone: Sodium [Moles/Vol] 127 mmol/L 136-145 [facility] Work Phone: Laboratory - Chemistry and C hemistry - challengeon 06-26-2021 CO2 [Moles/Vol] 24.0 mmol/L 21.0-32.0 [facility] Work Phone: Urea nitrogen/Creatinine [Mass ratio] 22.9 mg/mg 10- [facility] Work Phone: No Panel Informationon 06-26 Estimated GFR (MDRD) Amer 105 mL/min >60 [facility] Work Phone: Comment on above: GFR Calc Estimated GFR (MDRD) Non-Af Amer 87 mL/min >60 [facility] Work Phone: Comment on above: Non- GFR Calc Serum or plasma calcium shane urement (mass/volume)on 06-26-2021 Calcium [Mass/Vol] 7.9 mg/dL 8.5-10.1 [facility] Work Phone: Serum or plasma creatinine m easurement (mass/volume)on 06-26-2021 Creatinine [Mass/Vol] 0.70 mg/dL 0.55-1.02 [facility] Work Phone: Comment on above: The validity of the calculated GFR & GFRAA in patients over 70 years has not been determined. Clinical correlation is essential. Serum or plasma urea nitroge n measurement (mass/volume)on 06-26-2021 Urea nitrogen [Mass/Vol] 16 mg/dL 7-18 [facility] Work Phone: Thin prep Papanicolaou smear with manual screeningon 06-26-2021 Thin prep Papanicolaou smear with manual screening 7 5-15 [facility] Work Phone: Thin prep Papanicolaou smear with manual screening 274 mOsm/KG 280-301 [facility] Work Phone: Urine osmolality measurement on 06-26-2021 Osmolality (U) [Osmolality] 240 mOsm/KG [facility] Work Phone: Comment on above: Normal Urine Referen ce Ranges Random: 50 - 1200 mOsm/kg H20 depending on fluid intake Random: >850 mOsm/kg after 12 hour fluid restriction 24 hour: ~300 - 900 mOsm/kg H2O Basophil percentageon 2021 Basophil percentage 10-25 SEEN /hpf [facility] Work Phone: Bilirubin [Mass/Vol] 0.50 mg/dL 0.20-1.00 [facility] Work Phone: Comment on above: For patients on eltr ombopag therapy, use of Dimension Agra TBIL is not recommended. Chloride [Moles/Vol] 96 mmol/L 98-107 [facility] Work Phone: Glucose [Mass/Vol] 139 mg/dL 74-106 [facility] Work Phone: Comment on above: Fasting Glucose resu lt greater than or equal to 126 mg/dL suggests DIABETES MELLITUS per A.D.A. criteria. Potassium [Moles/Vol] 3.9 mmol/L 3.5-5.1 [facility] Work Phone: Protein [Mass/Vol] 6.5 g/dL 6.4-8.2 [facility] Work Phone: Sodium [Moles/Vol] 129 mmol/L 136-145 [facility] Work Phone: Bilirubin Test strip Ql (U)o n 06-21-2021 Bilirubin Ql (U) Negative Negative [facility] Work Phone: Ketones Test strip Ql (U)on 06-21-2021 Ketones Ql (U) Negative Negative [facility] Work Phone: Laboratory - Chemistry and C hemistry - challengeon 06-21-2021 ALP [Catalytic activity/Vol] 100 U/L 45-117 [facility] Work Phone: ALT [Catalytic activity/Vol] 25 U/L 13-56 [facility] Work Phone: CO2 [Moles/Vol] 26.0 mmol/L 21.0-32.0 [facility] Work Phone: Globulin (S) [Mass/Vol] 3.3 g/dL 2.2-4.2 [facility] Work Phone: Urea nitrogen/Creatinine [Mass ratio] 18.4 mg/mg 10-20 [facility] Work Phone: Mucus LM Ql (Urine sed)on Mucus Ql (Urine sed) 0 SEEN /hpf [facility] Work Phone: Nitrite Test strip Ql (U)on 06-21-2021 Nitrite Ql (U) Negative Negative [facility] Work Phone: No Panel Informationon 06-21 Estimated GFR (MDRD) Amer 104 mL/min >60 [facility] Work Phone: Comment on above: GFR Calc Estimated GFR (MDRD) Non-Af Amer 86 mL/min >60 [facility] Work Phone: Comment on above: Non- GFR Calc Protein Test strip Ql (U)on 06-21-2021 Protein Ql (U) 100 mg/dl Negative [facility] Work Phone: Serum or plasma albumin shane urement (mass/volume)on 06-21-2021 Albumin [Mass/Vol] 3.2 g/dL 3.2-5.0 [facility] Work Phone: Serum or plasma albumin/glob ulin mass ratioon 06-21-2021 Albumin/Globulin [Mass ratio] 1.0 {ratio} 0.9-2.4 [facility] Work Phone: Serum or plasma calcium shane urement (mass/volume)on 06-21-2021 Calcium [Mass/Vol] 7.7 mg/dL 8.5-10.1 [facility] Work Phone: Serum or plasma creatinine m easurement (mass/volume)on 06-21-2021 Creatinine [Mass/Vol] 0.71 mg/dL 0.55-1.02 [facility] Work Phone: Comment on above: The validity of the calculated GFR & GFRAA in patients over 70 years has not been determined. Clinical correlation is essential. Serum or plasma urea nitroge n measurement (mass/volume)on 06-21-2021 Urea nitrogen [Mass/Vol] 13 mg/dL 7-18 [facility] Work Phone: Squamous epithelial cells de tection in urine sediment by light microscopyon 06-21-2021 Epithelial cells.squamous LM Ql (Urine sed) 5-10 SEEN /hpf [facility] Work Phone: Thin prep Papanicolaou smear with manual screeningon 06-21-2021 Thin prep Papanicolaou smear with manual screening 19 U/L 15-37 [facility] Work Phone: Thin prep Papanicolaou smear with manual screening 7 5-15 [facility] Work Phone: Urine blood detectionon 06-03 RBC Ql (U) Negative Negative [facility] Work Phone: RBC Ql (U) 0-5 SEEN /hpf [facility] Work Phone: Urine clarityon 06-21-2021 Clarity (U) Sl. Cloudy Clear [facility] Work Phone: Urine color determinationon 06-21-2021 Color (U) Yellow Yellow [facility] Work Phone: Urine glucose detectionon Glucose Ql (U) Normal mg/dl Normal [facility] Work Phone: Urine leukocyte esterase det ection by dipstickon 06-21-2021 Leukocyte esterase Test strip Ql (U) 500 /ul Negative [facility] Work Phone: Urine pHon 06-21-2021 pH (U) 6.0 [pH] [facility] Work Phone: Urine sediment bacteria coun t by microscopy (number/high power field)on 06-21-2021 Bacteria LM.HPF (Urine sed) [#/Area] 0 /[HPF] None Seen [facility] Work Phone: Urine specific gravity measu rementon 06-21-2021 Specific gravity (U) [Rel density] 1.010 [facility] Work Phone: Urobilinogen Auto test strip Ql (U)on 06-21-2021 Urobilinogen Ql (U) Normal mg/dl Normal [facility] Work Phone: Whole blood hemoglobin A1c/t otal hemoglobin ratio (mass fraction)on 06-21-2021 HbA1c (Bld) [Mass fraction] 6.9 % 3.8-5.6 [facility] Work Phone: Comment on above: Normal < 5.7 % Predi abetic 5.7 - 6.4 % Diabetic >or= 6.5 % Please note range changes. Culture, urineon 06-12-2021 Bacteria identified Cx Nom (U) Mixed Gram Pos & Gram Neg Org [facility] Work Phone: Body fluid lactate dehydroge nase measurement (enzymatic activity/volume) by pyruvateon 05-30-2021 LDH Pyruvate to lactate reaction (Body fld) [Catalytic activity/Vol] 39 Units/l Not Establ. [facility] Work Phone: Cerebrospinal fluid appearan ce descriptionon 05-30-2021 Appearance (CSF) CLOUDY Clear [facility] Work Phone: Cerebrospinal fluid cell cou nton 05-30-2021 Cell count panel (CSF) TNP [facility] Work Phone: Comment on above: Test not performed Cerebrospinal fluid color id entificationon 05-30-2021 Color (CSF) RED Colorless [facility] Work Phone: Cerebrospinal fluid glucose measurement (mass/volume)on 05-30-2021 Glucose (CSF) [Mass/Vol] 79 mg/dL 40-75 [facility] Work Phone: Cerebrospinal fluid lymphocy sincere count (number/volume)on 05-30-2021 Lymphocytes (CSF) [#/Vol] 20 % 40-80 [facility] Work Phone: Cerebrospinal fluid neutroph ils/100 leukocyteson 05-30-2021 Neutrophils/100 WBC (CSF) 80 % 0-6 [facility] Work Phone: [phone] Cerebrospinal fluid white bl ood cell counton 05-30-2021 WBC (CSF) [#/Vol] 12382 /mm-3 0-5 [facility] Work Phone: Cytology report of Body flui d Cyto stainon 05-30-2021 Cytology report Cyto stain Doc (Body fld) SEE PATHOLOGY REPORT [facility] Work Phone: Comment on above: Specimen submitted t o Anatomical Pathology Department for testing. Herpes simplex virus 1+2 DNA detection by probe and target amplification methodon 05-30-2021 HSV 1+2 DNA MILKA+probe Ql (Unsp spec) Negative Negative [facility] Work Phone: Laboratory - Specimen inform ationon 05-30-2021 Tube number Nom (CSF) [ID] 4 [facility] Work Phone: Mononuclear cells Auto (Body fld) [#/Vol]on 05-30-2021 Mononuclear cells (Body fld) [#/Vol] 0.014 10*3/uL [facility] Work Phone: No Panel Informationon 05-30 Body Fluid Mononuclear WBCs (%) 50.0 % [facility] Work Phone: Body Fluid Polynuclear WBCs (#) 0.014 10^3/uL [facility] Work Phone: Body Fluid Polynuclear WBCs (%) 50.0 % [facility] Work Phone: CSF RBC 65598 /mm-3 None seen [facility] Work Phone: CSF Total Protein 143.0 mg/dL 15.0-45.0 [facility] Work Phone: Herpes Simplex Virus II DNA (PCR) Negative Negative [facility] Work Phone: Comment on above: This test was develo ped and its performance characteristicsdetermined by [facility]. It has not been clearedor approved by the U.S. Food and Drug Administration. TheFDA has determined that such clearance or approval is notnecessary. This test is used for clinical purposes. Itshould not be regarded as investigational or research.Performed at: [address] [id number] Director: Joan Ye MD, Phone: [phone] Miscellaneous Test See comment [facility] Work Phone: Comment on above: TEST RESULT UNITS RE F INTERVALProtein Electro + Interp, CSFProtein, Total, CSF 129.9 High mg/dL 0.0-44.0Pre-Albumin, CSF 1.5 Low % 2.2-7.1Albumin, CSF 57.7 % 56.8-76.6Emyuq-1-Btgyysjr, CSF 3.6 % 1.1-6.7Oeybw-7-Utvtwsaq, CSF 12.8 High % 3.0-12.6Beta Globulin, CSF 15.4 % 7.3-17.9Gamma Globulin, CSF 9.1 % 3.0-13.0Protein electrophoresis scan will follow via computer, mail, or screw machine operator delivery.M-Mazin Not Observed % Not ObservedP E Interpretation, CSFCSF protein electrophoresis reveals a slight increase in alpha 1, alpha 2, or beta globulin. The association of this observation with CSF pathology is uncertain and nonspecific. Clinical correlation would be indicated. Note: Oligoclonal banding is only detected by high resolution electrophoresis (test #[id number]). ____ TESTING PERFORMED AT [facility]. ORIGINAL REPORT ON FILE IN LAB CONTAINS ADDITIONAL TEST SITE INFORMATION. Review by pathologiston 05-03 Pathologist review Marciano (Unsp spec) [Interp] Reviewed [facility] Work Phone: Comment on above: Previous reported re sult: May follow Edited by: BEL on 05/31/21:1339Bloody specimen.Negative for malignant cells.Arden Mosqueda M.D. 05/31/21 AMENDED REPORT 05/31/21 7521 PATH REV previously reported as: May follow Basophil percentageon 2020 Chloride [Moles/Vol] 102 mmol/L 98-107 [facility] Work Phone: Glucose [Mass/Vol] 103 mg/dL 74-106 [facility] Work Phone: Comment on above: Fasting Glucose resu lt from 100 to 125 mg/dL suggests IMPAIRED HOMEOSTASIS per A.D.A. criteria.Please note revised GLUCOSE reference range effective 2017. Potassium [Moles/Vol] 3.9 mmol/L 3.5-5.1 [facility] Work Phone: Sodium [Moles/Vol] 136 mmol/L 136-145 [facility] Work Phone: Bilirubin Test strip Ql (U)o n 05-18-2021 Bilirubin Ql (U) Negative Negative [facility] Work Phone: Ketones Test strip Ql (U)on 05-18-2021 Ketones Ql (U) Negative Negative [facility] Work Phone: Laboratory - Chemistry and C hemistry - challengeon 05-18-2021 CO2 [Moles/Vol] 28.0 mmol/L 21.0-32.0 [facility] Work Phone: Magnesium [Mass/Vol] 2.5 mg/dL 1.6-2.6 [facility] Work Phone: Urea nitrogen/Creatinine [Mass ratio] 22.9 mg/mg 10-20 [facility] Work Phone: Nitrite Test strip Ql (U)on 05-18-2021 Nitrite Ql (U) Negative Negative [facility] Work Phone: No Panel Informationon 05-18 Estimated GFR (MDRD) Amer 105 mL/min >60 [facility] Work Phone: Comment on above: GFR Calc Estimated GFR (MDRD) Non-Af Amer 87 mL/min >60 [facility] Work Phone: Comment on above: Non- GFR Calc Protein Test strip Ql (U)on 05-18-2021 Protein Ql (U) 30 mg/dl Negative [facility] Work Phone: Serum or plasma calcium shane urement (mass/volume)on 05-18-2021 Calcium [Mass/Vol] 9.0 mg/dL 8.5-10.1 [facility] Work Phone: Serum or plasma creatinine m easurement (mass/volume)on 05-18-2021 Creatinine [Mass/Vol] 0.70 mg/dL 0.55-1.02 [facility] Work Phone: Comment on above: The validity of the calculated GFR & GFRAA in patients over 70 years has not been determined. Clinical correlation is essential. Serum or plasma urea nitroge n measurement (mass/volume)on 05-18-2021 Urea nitrogen [Mass/Vol] 16 mg/dL 7-18 [facility] Work Phone: Thin prep Papanicolaou smear with manual screeningon 05-18-2021 Thin prep Papanicolaou smear with manual screening 6 5-15 [facility] Work Phone: Urine blood detectionon 05-02 RBC Ql (U) Negative Negative [facility] Work Phone: Urine clarityon 05-18-2021 Clarity (U) Clear Clear [facility] Work Phone: Urine color determinationon 05-18-2021 Color (U) Yellow Yellow [facility] Work Phone: Urine glucose detectionon Glucose Ql (U) Normal mg/dl Normal [facility] Work Phone: Urine leukocyte esterase det ection by dipstickon 05-18-2021 Leukocyte esterase Test strip Ql (U) 100 /ul Negative [facility] Work Phone: Urine pHon 05-18-2021 pH (U) 7.0 [pH] [facility] Work Phone: Urine specific gravity measu rementon 05-18-2021 Specific gravity (U) [Rel density] 1.010 [facility] Work Phone: Urobilinogen Auto test strip Ql (U)on 05-18-2021 Urobilinogen Ql (U) Normal mg/dl Normal [facility] Work Phone: PLATELET COUNTon 01-08-2021 Platelet mean volume (Bld) [Entitic vol] 9.3 fL Normal 8.5-12.2 [facility] Comment on above: Performed By: #### Y VITK1 #### [facility] (DEFAULT) [address] [place] [id number] Platelets (Bld) [#/Vol] 270 10*3/uL Normal 150-393 [facility] Comment on above: Performed By: #### Y VITK1 #### [facility] (DEFAULT) [address] [place] [id number] Interpretation and review of laboratory results Normal [facility] Platelet mean volume (Bld) [Entitic vol] 9.3 fL 8.5 - 12.2 fL [facility] Platelets (Bld) [#/Vol] 270 10*3/uL 150 - 393 K/uL [facility] VITAMIN D, (1,25 DIHYDROXY)o n 01-08-2021 1,25-dihydroxyvitamin D [Mass/Vol] 50.6 pg/mL 20.0 - 79.0 pg/mL [facility] Interpretation and review of laboratory results Normal [facility] Vitamin D values hav e been shown to be falsely decreased in lipemic samples and should be interpreted with caution. [facility] ECGOrdered By: Gavin nicolas n 01-07-2021 [facility] Work Phone: FOLATE, SERUMon 01-06-2021 Folate >24.00 Normal >5.38 [facility] Comment on above: Performed By: #### Y VITK1 #### [facility] (DEFAULT) [address] [place] [id number] FOLATE, SERUMOrdered By: Antonio Arteaga on 01-06-2021 Folate [Mass/Vol] ng/mL >5.38 ng/mL [facility] Interpretation and review of laboratory results Normal [facility] VITAMIN Aon 01-06-2021 FREE RETINOL (VIT A) 88 mcg/dL Normal 38-98 [facility] Comment on above: Result Comment: Courtney min supplementation within 24 hours prior to blood draw may affect the accuracy of the results. This test was developed and its analytical performance characteristics have been determined by [facility] [place], [place]. It has not been cleared or approved by the U.S. Food and Drug Administration. This assay has been validated pursuant to the CLIA regulations and is used for clinical purposes. Test Performed at: [facility] [address] Edward Meadows M.D., Ph.D.,Director of Laboratories Performed By: #### Y VITK1 #### [facility] (DEFAULT) [address] [place] [address] VITAMIN Allen 01-06-2021 VITAMIN E, SERUM 7.7 mg/L Normal 5.5-17.0 [facility] Comment on above: Result Comment: ADDITIONAL INFORMATION This test was developed and its performance characteristics determined by [facility] in a manner consistent with CLIA requirements. This test has not been cleared or approved by the U.S. Food and Drug Administration. Test Performed by: [facility] [place] [address] Consultant Internship: Robbie Sommers M.D. Ph.D.; CLIA# [id number] Performed By: #### Y FRANKIE #### [facility] (DEFAULT) [address] [place] [id number] VITAMIN K, SERUMon VITAMIN K1,SERUM 0.61 ng/mL Normal 0.10-2.20 [facility] Comment on above: Result Comment: ADDITIONAL INFORMATION This test was developed and its performance characteristics determined by [facility] in a manner consistent with CLIA requirements. This test has not been cleared or approved by the U.S. Food and Drug Administration. Test Performed by: [facility] [address] [facility], [place] [address] Consultant Internship: Robbie Sommers M.D. Ph.D.; CLIA# [id number] Performed By: #### Y VITK1 #### [facility] (DEFAULT) [address] [address] CBC,PLATELETSon 01-05-2021 Hematocrit (Bld) [Volume fraction] 34.9 % Normal 34.9-44.3 [facility] Comment on above: Performed By: #### Y VITK1 #### [facility] (DEFAULT) [address] [address] Hemoglobin (Bld) [Mass/Vol] 11.3 g/dL Low 11.4-15.2 [facility] Comment on above: Performed By: #### Y VITK1 #### [facility] (DEFAULT) [address] [address] MCV (RBC) [Entitic vol] 94.3 fL Normal 79.6-97.7 [facility] Comment on above: Performed By: #### Y VITK1 #### [facility] (DEFAULT) [address] [address] Mean Cell Hgb 30.5 pg Normal 25.9-33.9 [facility] Comment on above: Performed By: #### Y VITK1 #### [facility] (DEFAULT) [address] [address] Mean Cell Hgb Conc 32.4 g/dL Normal 31.4-35.9 [facility] Comment on above: Performed By: #### Y VITK1 #### [facility] (DEFAULT) [address] [address] Platelet mean volume (Bld) [Entitic vol] 9.0 fL Normal 8.5-12.2 [facility] Comment on above: Performed By: #### Y VITK1 #### [facility] (DEFAULT) [address] [place] [id number] Platelets (Bld) [#/Vol] 226 10*3/uL Normal 150-393 [facility] [facility] Comment on above: Performed By: #### Y VITK1 #### [facility] (DEFAULT) [address] [place] [address] 70617 RBC (Bld) [#/Vol] 3.70 10*6/uL Low 3.91-5.04 [facility] Comment on above: Performed By: #### Y VITK1 #### [facility] (DEFAULT) [address] [place] [address] 42294 RBC Distribution 13.1 % Normal 10.8-14.9 [facility] Comment on above: Performed By: #### Y VITK1 #### [facility] (DEFAULT) [address] [place] [address] 64517 WBC (Bld) [#/Vol] 5.49 10*3/uL Normal 3.99-11.19 [facility] Comment on above: Performed By: #### Y VITK1 #### [facility] (DEFAULT) [address] [place] [address] 11993 Erythrocyte distribution width (RBC) [Ratio] 13.1 % 10.8 - 14.9 % [facility] Hematocrit (Bld) [Volume fraction] 34.9 % 34.9 - 44.3 % [facility] Hemoglobin (Bld) [Mass/Vol] 11.3 g/dL Low 11.4 - 15.2 g/dL [facility] Interpretation and review of laboratory results Abnormal [facility] MCH (RBC) [Entitic mass] 30.5 pg 25.9 - 33.9 pg [facility] MCHC (RBC) [Mass/Vol] 32.4 g/dL 31.4 - 35.9 g/dL [facility] MCV (RBC) [Entitic vol] 94.3 fL 79.6 - 97.7 fL [facility] Platelet mean volume (Bld) [Entitic vol] 9.0 fL 8.5 - 12.2 fL [facility] Platelets (Bld) [#/Vol] 226 10*3/uL 150 - 393 K/uL [facility] RBC (Bld) [#/Vol] 3.70 10*6/uL Low [facility] WBC (Bld) [#/Vol] 5.49 10*3/uL 3.99 - 11.19 K/uL [facility] CHEM 7 (LYTES,BUN,CREA,GLUC) on 01-05-2021 Anion gap [Moles/Vol] 13 mmol/L Normal 7-17 [facility] Comment on above: Performed By: #### Y VITK1 #### [facility] (DEFAULT) [address] [place] [address] 71023 Chloride [Moles/Vol] 102 mmol/L Normal 98-108 [facility] Comment on above: Performed By: #### Y VITK1 #### [facility] (DEFAULT) [address] [place] [address] 36642 CO2 [Moles/Vol] 25 mmol/L Normal 22-30 [facility] Comment on above: Performed By: #### Y VITK1 #### [facility] (DEFAULT) [address] [place] [address] 10148 Creatinine [Mass/Vol] 0.61 mg/dL Normal 0.50-1.20 [facility] Comment on above: Performed By: #### Y VITK1 #### [facility] (DEFAULT) [address] [place] [address] 89043 EST GFR, >=60 Normal >=60 [facility] Comment on above: Performed By: #### Y VITK1 #### [facility] (DEFAULT) [address] [place] [address] 42440 EST GFR,Non >=60 Normal >=60 [facility] Comment on above: Performed By: #### Y VITK1 #### [facility] (DEFAULT) [address] [place] [address] 70809 Glucose [Mass/Vol] 109 mg/dL High 70-99 [facility] Comment on above: Performed By: #### Y VITK1 #### [facility] (DEFAULT) [address] [place] [address] 26924 Osmolality [Osmolality] 286 mosm/kg Normal 278-305 [facility] Comment on above: Performed By: #### Y VITK1 #### [facility] (DEFAULT) [address] [place] [address] 57632 Potassium [Moles/Vol] 3.6 mmol/L Normal 3.5-5.0 [facility] Comment on above: Performed By: #### Y VITK1 #### [facility] (DEFAULT) [address] [place] [address] 68095 Sodium [Moles/Vol] 136 mmol/L Normal 133-143 [facility] Comment on above: Performed By: #### Y VITK1 #### [facility] (DEFAULT) [address] [place] [address] 37574 Urea nitrogen [Mass/Vol] 16 mg/dL Normal 7-22 [facility] Comment on above: Performed By: #### Y VITK1 #### [facility] (DEFAULT) [address] [place] [address] 06707 Urea nitrogen/Creatinine [Mass ratio] 26 mg/mg Normal [facility] Comment on above: Performed By: #### Y VITK1 #### [facility] (DEFAULT) [address] [place] [address] 83520 Anion gap [Moles/Vol] 13 mmol/L 7 - 17 mmol/L [facility] Chloride [Moles/Vol] 102 mmol/L 98 - 10 8 mmol/L [facility] CO2 [Moles/Vol] 25 mmol/L 22 - 30 mmol/L [facility] Creatinine [Mass/Vol] 0.61 mg/dL 0.50 - 1.20 mg/dL [facility] Glucose [Mass/Vol] 109 mg/dL High 70 - 99 mg/dL [facility] Interpretation and review of laboratory results Abnormal [facility] Osmolality Calc [Osmolality] 286 [facility] Potassium [Moles/Vol] 3.6 mmol/L 3.5 - 5.0 mmol/L [facility] Sodium [Moles/Vol] 136 mmol/L 133 - 143 mmol/L [facility] Urea nitrogen [Mass/Vol] 16 mg/dL 7 - 22 mg/dL [facility] Urea nitrogen/Creatinine [Mass ratio] 26 mg/mg [facility] Laboratory - Chemistry and C hemistry - challengeon 01-05-2021 GFR/1.73 sq M.predicted MDRD (S/P/Bld) [Vol rate/Area] mL/min/{1.73_m2} >=60 mL/min/1.7 3sqM [facility] MAGNESIUMon 01-05-2021 Magnesium [Mass/Vol] 2.1 mg/dL Normal 1.6-2.6 [facility] Comment on above: Performed By: #### Y VITK1 #### [facility] (DEFAULT) [address] [place] [address] Interpretation and review of laboratory results Normal [facility] Magnesium [Mass/Vol] 2.1 mg/dL 1.6 - 2 .6 mg/dL [facility] No Panel Informationon 01-05 [facility] URINE CULTUREOrdered By: Russell Cook on 01-05-2021 Bacteria identified Cx Nom (Unsp spec) Growth [facility] Bacteria identified Cx Nom (Unsp spec) 50,000-100,000 CFU/mL Mixed skin emi [facility] Multiple bacterial morphotypes present. Suggest appropriate recollection if clinically indicated. [facility] VITAMIN [id number] By: Luke Cheung on 01-05-2021 Cobalamin (Vitamin B12) [Mass/Vol] 1987 pg/mL High 211 - 911 pg/mL [facility] Comment on above: Testing of Methylmal onic Acid and Intrinsic Factor Blocking Antibody are recommended if clinical suspicion for pernicious anemia due to B12 deficiency is high for patients with intermediate B12 levels (211 to 400 pg/mL) to rule out spurious heterophile antibodies. Interpretation and review of laboratory results Abnormal [facility] VITAMIN B12on 01-05-2021 Cobalamin (Vitamin B12) [Mass/Vol] 1987 pg/mL High 211-911 [facility] Comment on above: Result Comment: Test ing of Methylmalonic Acid and Intrinsic Factor Blocking Antibody are recommended if clinical suspicion for pernicious anemia due to B12 deficiency is high for patients with intermediate B12 levels (211 to 400 pg/mL) to rule out spurious heterophile antibodies. Performed By: #### L ABHSTI1, TSH, C7ED, HFP #### [facility] (DEFAULT) [address] [address] CBC AND ELECTRONIC DIFFon Basophils (Bld) [#/Vol] 10*3/uL Normal 0.00-0.15 [facility] Comment on above: Performed By: #### Y VITK1 #### [facility] (DEFAULT) [address] [address] Basophils/100 WBC (Bld) 0.3 % Normal [facility] Comment on above: Performed By: #### Y VITK1 #### [facility] (DEFAULT) [address] [address] DIFF STATUS Electronic Differential Normal [facility] Comment on above: Performed By: #### Y VITK1 #### [facility] (DEFAULT) [address] [address] Eosinophils (Bld) [#/Vol] 0.04 10*3/uL Normal 0.00-0.42 [facility] Comment on above: Performed By: #### Y VITK1 #### [facility] (DEFAULT) [address] [place] [address] 53282 Eosinophils/100 WBC (Bld) 0.6 % Normal [facility] Comment on above: Performed By: #### Y VITK1 #### [facility] (DEFAULT) [address] [place] [address] 56444 Hematocrit (Bld) [Volume fraction] 38.9 % Normal 34.9-44.3 [facility] Comment on above: Performed By: #### Y VITK1 #### [facility] (DEFAULT) [address] [address] Hemoglobin (Bld) [Mass/Vol] 12.6 g/dL Normal 11.4-15.2 [facility] Comment on above: Performed By: #### Y VITK1 #### [facility] (DEFAULT) [address] [address] Immature Grans % 0.3 % Normal [facility] Comment on above: Performed By: #### Y VITK1 #### [facility] (DEFAULT) [address] [address] Immature Grans Absolute <0.04 Normal <=0.09 [facility] Comment on above: Performed By: #### Y VITK1 #### [facility] (DEFAULT) [address] [address] Lymphocytes (Bld) [#/Vol] 1.42 10*3/uL Normal 1.16-3.51 [facility] Comment on above: Performed By: #### Y VITK1 #### [facility] (DEFAULT) [address] [address] Lymphocytes/100 WBC (Bld) 22.5 % Normal [facility] Comment on above: Performed By: #### Y VITK1 #### [facility] (DEFAULT) [address] [address] MCV (RBC) [Entitic vol] 94.0 fL Normal 79.6-97.7 [facility] Comment on above: Performed By: #### Y VITK1 #### [facility] (DEFAULT) [address] [address] Mean Cell Hgb 30.4 pg Normal 25.9-33.9 [facility] Comment on above: Performed By: #### Y VITK1 #### [facility] (DEFAULT) [address] [address] Mean Cell Hgb Conc 32.4 g/dL Normal 31.4-35.9 [facility] Comment on above: Performed By: #### Y VITK1 #### [facility] (DEFAULT) [address] [address] Monocytes (Bld) [#/Vol] 0.63 10*3/uL Normal 0.22-0.87 [facility] Comment on above: Performed By: #### Y VITK1 #### [facility] (DEFAULT) [address] [address] Monocytes/100 WBC (Bld) 10.0 % Normal [facility] Comment on above: Performed By: #### Y VITK1 #### [facility] (DEFAULT) [address] [address] Nucleated RBC 0.0 /100 WBC Normal <=0.2 [facility] Comment on above: Performed By: #### Y VITK1 #### [facility] (DEFAULT) [address] [address] Platelet mean volume (Bld) [Entitic vol] 9.0 fL Normal 8.5-12.2 [facility] Comment on above: Performed By: #### Y VITK1 #### [facility] (DEFAULT) [address] [address] Platelets (Bld) [#/Vol] 266 10*3/uL Normal 150-393 [facility] Comment on above: Performed By: #### Y VITK1 #### [facility] (DEFAULT) [address] [place] [address] 46726 RBC (Bld) [#/Vol] 4.14 10*6/uL Normal 3.91-5.04 [facility] Comment on above: Performed By: #### Y VITK1 #### [facility] (DEFAULT) [address] [place] [address] 66464 RBC Distribution 13.1 % Normal 10.8-14.9 [facility] Comment on above: Performed By: #### Y VITK1 #### [facility] (DEFAULT) [address] [place] [address] 37231 Segs + Bands Auto 66.3 % Normal [facility] Comment on above: Performed By: #### Y VITK1 #### [facility] (DEFAULT) [address] [place] [address] 08271 Segs + Bands,Absolute Auto 4.17 K/uL Normal 1.64-7.28 [facility] Comment on above: Performed By: #### Y VITK1 #### [facility] (DEFAULT) [address] [place] [address] 05816 WBC (Bld) [#/Vol] 6.30 10*3/uL Normal 3.99-11.19 [facility] Comment on above: Performed By: #### Y VITK1 #### [facility] (DEFAULT) [address] [place] [address] 77715 Basophils (Bld) [#/Vol] 10*3/uL 0.00 - 0.15 K/uL [facility] Basophils/100 WBC (Bld) 0.3 % [facility] DIFF STATUS Electronic Differential [facility] Eosinophils (Bld) [#/Vol] 0.04 10*3/uL 0.00 - 0.42 K/uL [facility] Eosinophils/100 WBC (Bld) 0.6 % [facility] Erythrocyte distribution width (RBC) [Ratio] 13.1 % 10.8 - 14.9 % [facility] Hematocrit (Bld) [Volume fraction] 38.9 % 34.9 - 44.3 % [facility] Hemoglobin (Bld) [Mass/Vol] 12.6 g/dL 11.4 - 15.2 g/dL [facility] Immature granulocytes (Bld) [#/Vol] 10*3/uL <=0.09 K/uL [facility] Immature granulocytes/100 WBC (Bld) 0.3 % [facility] Lymphocytes (Bld) [#/Vol] 1.42 10*3/uL 1.16 - 3.51 K/uL [facility] Lymphocytes/100 WBC (Bld) 22.5 % [facility] MCH (RBC) [Entitic mass] 30.4 pg 25.9 - 33.9 pg [facility] MCHC (RBC) [Mass/Vol] 32.4 g/dL 31.4 - 35.9 g/dL [facility] MCV (RBC) [Entitic vol] 94.0 fL 79.6 - 97.7 fL [facility] Monocytes (Bld) [#/Vol] 0.63 10*3/uL 0.22 - 0.87 K/uL [facility] Monocytes/100 WBC (Bld) 10.0 % [facility] Neutrophils (Bld) [#/Vol] 4.17 10*3/uL 1.64 - 7.28 K/uL [facility] Nucleated RBC/100 WBC (Bld) [Ratio] 0.0 % <=0.2 /100 WBC [facility] Platelet mean volume (Bld) [Entitic vol] 9.0 fL 8.5 - 12.2 fL [facility] Platelets (Bld) [#/Vol] 266 10*3/uL 150 - 393 K/uL [facility] RBC (Bld) [#/Vol] 4.14 10*6/uL [facility] Segmented neutrophils/100 WBC (Bld) 66.3 % [facility] WBC (Bld) [#/Vol] 6.30 10*3/uL 3.99 - 11.19 [facility] Anion gap [Moles/Vol] 10 mmol/L Normal 7-17 [facility] Comment on above: Performed By: #### L ABHSTI1, TSH, C7ED, HFP #### [facility] (DEFAULT) [address] [place] [address] 42650 Chloride [Moles/Vol] 102 mmol/L Normal 98-108 [facility] Comment on above: Performed By: #### L ABHSTI1, TSH, C7ED, HFP #### [facility] (DEFAULT) [address] [place] [address] 36534 CO2 [Moles/Vol] 29 mmol/L Normal 22-30 [facility] Comment on above: Performed By: #### L ABHSTI1, TSH, C7ED, HFP #### [facility] (DEFAULT) [address] [place] [address] 19717 Creatinine [Mass/Vol] 0.69 mg/dL Normal 0.50-1.20 [facility] Comment on above: Performed By: #### L ABHSTI1, TSH, C7ED, HFP #### [facility] (DEFAULT) [address] [place] [address] 02933 EST GFR, >=60 Normal >=60 [facility] Comment on above: Performed By: #### L ABHSTI1, TSH, C7ED, HFP #### [facility] (DEFAULT) [address] [place] [address] 59774 EST GFR,Non >=60 Normal >=60 [facility] Comment on above: Performed By: #### L ABHSTI1, TSH, C7ED, HFP #### [facility] (DEFAULT) [address] [place] [address] 48361 Glucose [Mass/Vol] 114 mg/dL High 70-99 [facility] Comment on above: Performed By: #### L ABHSTI1, TSH, C7ED, HFP #### [facility] (DEFAULT) [address] [place] [address] 25037 Osmolality [Osmolality] 288 mosm/kg Normal 278-305 [facility] Comment on above: Performed By: #### L ABSHIVATI1, TSH, C7ED, HFP #### [facility] (DEFAULT) [address] [place] [address] 48019 Potassium [Moles/Vol] 3.7 mmol/L Normal 3.5-5.0 [facility] Comment on above: Performed By: #### L JALILTI1, TSH, C7ED, HFP #### [facility] (DEFAULT) [address] [place] [address] 80545 Sodium [Moles/Vol] 137 mmol/L Normal 133-143 [facility] Comment on above: Performed By: #### L PAU TSH, C7ED, HFP #### [facility] (DEFAULT) [address] [place] [address] 65669 Urea nitrogen [Mass/Vol] 13 mg/dL Normal 7-22 [facility] Comment on above: Performed By: #### L WILFREDO1 TSH, C7ED, HFP #### [facility] (DEFAULT) [address] [place] [address] 66680 Urea nitrogen/Creatinine [Mass ratio] 19 mg/mg Normal [facility] Comment on above: Performed By: #### L ABAYAN1ALLISON, C7ED, HFP #### [facility] (DEFAULT) [address] [place] [address] 49749 Anion gap [Moles/Vol] 10 mmol/L 7 - 17 mmol/L [facility] Chloride [Moles/Vol] 102 mmol/L 98 - 10 8 mmol/L [facility] CO2 [Moles/Vol] 29 mmol/L 22 - 30 mmol/L [facility] Creatinine [Mass/Vol] 0.69 mg/dL 0.50 - 1.20 mg/dL [facility] Glucose [Mass/Vol] 114 mg/dL High 70 - 99 mg/dL [facility] Osmolality Calc [Osmolality] 288 [facility] Potassium [Moles/Vol] 3.7 mmol/L 3.5 - 5.0 mmol/L [facility] Sodium [Moles/Vol] 137 mmol/L 133 - 143 [facility] Urea nitrogen [Mass/Vol] 13 mg/dL 7 - 22 mg/dL [facility] Urea nitrogen/Creatinine [Mass ratio] 19 mg[facility] CONTRASTon 0 01-04-2021 CT [...] intracranial findings on noncontrast head CT. Normal [facility] IMPRESSION: No acute intracranial findings on noncontrast head CT. [facility] EXAM: CT HEAD WITHOU T CONTRAST, [...] Atherosclerotic calcification of the internal carotid siphons. [facility] Abdirashid Beltrán MD - 01/04/2021 EXAM: [...] acute intracranial findings on noncontrast head CT. [facility] Radiology Study observation (narrative) [facility] CT HEAD WITHOUT CONTRASTOrde red By: Abdirashid Beltrán on 01-04-2021 [facility] Work Phone: HEPATIC FUNCTION PANELon Albumin [Mass/Vol] 3.7 g/dL Normal 3.5-5.0 [facility] Comment on above: Performed By: #### L ABHSTI1, TSH, C7ED, HFP #### [facility] (DEFAULT) [address] [place] [address] ALP [Catalytic activity/Vol] 53 U/L Normal 32-126 [facility] Comment on above: Performed By: #### L ABHSTI1, TSH, C7ED, HFP #### [facility] (DEFAULT) [address] [place] [address] 75917 ALT [Catalytic activity/Vol] 21 U/L Normal 9-48 [facility] Comment on above: Performed By: #### L ABHSTI1, TSH, C7ED, HFP #### [facility] (DEFAULT) [address] [place] [address] 25764 AST [Catalytic activity/Vol] 18 U/L Normal 14-40 [facility] Comment on above: Performed By: #### L ABHSTI1, TSH, C7ED, HFP #### [facility] (DEFAULT) [address] [place] [address] 15150 Bilirubin [Mass/Vol] 0.5 mg/dL Normal <1.5 [facility] Comment on above: Performed By: #### L ABHSTI1, TSH, C7ED, HFP #### [facility] (DEFAULT) [address] [place] [address]57 Bilirubin.indirect [Mass/Vol] 0.1 mg/dL Normal <0.3 [facility] Comment on above: Performed By: #### L ABHSTI1, TSH, C7ED, HFP #### [facility] (DEFAULT) [address] [place] [address] 93846 Protein [Mass/Vol] 6.1 g/dL Low 6.4-8.3 [facility] Comment on above: Performed By: #### L ABHSTI1, TSH, C7ED, HFP #### [facility] (DEFAULT) [address] [place] [address] 23336 Albumin [Mass/Vol] 3.7 g/dL 3.5 - 5.0 g/dL [facility] ALP [Catalytic activity/Vol] 53 U/L 32 - 126 U/L [facility] ALT [Catalytic activity/Vol] 21 U/L 9 - 48 U/L [facility] AST [Catalytic activity/Vol] 18 U/L 14 - 40 U/L [facility] Bilirubin [Mass/Vol] 0.5 mg/dL <1.5 [facility] Bilirubin.direct [Mass/Vol] 0.1 mg/dL <0.3 [facility] Protein [Mass/Vol] 6.1 g/dL Low 6.4 - 8.3 g/dL [facility] HIGH SENSITIVITY TROPONIN I - SINGLE ORDERon 01-04-2021 hs-Troponin I 5 ng/L Normal <34 [facility] Comment on above: Order Comment: Acute Coronary Syndrome (ACS): Initial Evaluation and Management: [email or web address] Performed By: #### L ABHSTI1, TSH, C7ED, HFP #### [facility] (DEFAULT) [address] [place] [address] Interpretation and review of laboratory results Normal [facility] Troponin I.cardiac DL <= 0.01 ng/mL [Mass/Vol] 5 ng/L <34 [facility] - Chemistry and C hemistry - challengeon 01-04-2021 GFR/1.73 sq M.predicted MDRD (S/P/Bld) [Vol rate/Area] mL/min/{1.73_m2} >=60 mL/min/1.7 3sqM [facility] NOVEL CORONAVIRUS PCROrdered By: Ofelia Tellez on 01-04-2021 SARS-CoV-2 (COVID-19) RNA MILKA+probe Ql (Unsp spec) This test was performed using real time PCR and has been approved for the qualitative detection of SARS-CoV-2 nucleic acid. The test has been authorized by the FDA under an emergency use authorization for use by authorized laboratories. [facility] NOVEL CORONAVIRUS PCRon SARS-CoV-2 (COVID-19) RNA MILKA+probe Ql (Unsp spec) Not detected Normal NOT DETECTED [facility] Comment on above: Order Comment: Viral transport [...] for use by authorized laboratories. Result Comment: [facility] Negative results do not preclude [...] deteriorating. Performed By: #### L ABCOR10 #### [facility] (DEFAULT) [address] [place] [address] No Panel Informationon 01-04 Interpretation and review of laboratory results Abnormal [facility] PROTIME-INRon 01-04-2021 INR Coag (PPP) [Relative time] 0.9 {INR} Normal 0.9-1.1 [facility] Comment on above: Performed By: #### Y VITK1 #### [facility] (DEFAULT) [address] [place] [address] PT Coag (PPP) [Time] 11.9 s Normal 11.9-14.2 [facility] Comment on above: Performed By: #### Y VITK1 #### [facility] (DEFAULT) [address] [place] [address] INR Coag (Bld) [Relative time] 0.9 {INR} [facility] Interpretation and review of laboratory results Normal [facility] PT Coag (PPP) [Time] 11.9 s [facility] SARS-CoV-2 (COVID-19) RNA NA A+probe Ql (Unsp spec)Ordered By: Ofelia Tellez on 01-04-2021 Interpretation and review of laboratory results Normal [facility] SARS-CoV-2 (COVID-19) RNA MILKA+probe Ql (Resp) Not detected NOT DETECTED [facility] Comment on above: [facility] Negative results do not [...] patient is critically ill or clinically deteriorating. [facility] TSHon 01-04-2021 TSH 2.051 uIU/mL Normal 0.550-4.78 0 [facility] Comment on above: Performed By: #### L ABHSTI1, TSH, C7ED, HFP #### [facility] (DEFAULT) [address] [address] Interpretation and review of laboratory results Normal [facility] TSH Qn 2.051 m[IU]/L [facility] URINALYSISon 01-04-2021 Appearance (U) Cloudy Abnormal Clear [facility] Comment on above: Performed By: #### Y VITK1 #### [facility] (DEFAULT) [address] [place] [address]298 Bacteria PRESENT Abnormal ABSENT [facility] Comment on above: Performed By: #### Y VITK1 #### [facility] (DEFAULT) [address] [address] Blood Urine Negative Normal Negative [facility] Comment on above: Performed By: #### Y VITK1 #### [facility] (DEFAULT) [address] [place] [address]86 Color (U) Yellow Normal Yellow [facility] Comment on above: Performed By: #### Y VITK1 #### [facility] (DEFAULT) [address] [place] [address]11 Glucose Ql (U) 100 mg/dL Abnormal Negative [facility] Comment on above: Performed By: #### Y VITK1 #### [facility] (DEFAULT) [address] [place] [address] 72091 Ketones Ql (U) Negative Normal Negative [facility] Comment on above: Performed By: #### Y VITK1 #### [facility] (DEFAULT) [address] [place] [address] [id number] Leukocyte esterase Test strip Ql (U) Moderate Abnormal Negative [facility] Comment on above: Performed By: #### Y VITK1 #### [facility] (DEFAULT) [address] [place] [address] 49182 Nitrites Urine Negative Normal Negative [facility] Comment on above: Performed By: #### Y VITK1 #### [facility] (DEFAULT) [address] [place] [address] 23769 pH (U) 6.5 [pH] Normal 5.0-7.0 [facility] Comment on above: Performed By: #### Y VITK1 #### [facility] (DEFAULT) [address] [place] [address] 29519 Protein Urine 100 mg/dL Abnormal Negative [facility] Comment on above: Performed By: #### Y VITK1 #### [facility] (DEFAULT) [address] [place] [address] 73032 RBC Urine 0-2 Normal 0-2 [facility] Comment on above: Performed By: #### Y VITK1 #### [facility] (DEFAULT) [address] [place] [address] 80551 Specific [place] Urine 1.020 Normal >1.00 1-<1. 035 [facility] Comment on above: Performed By: #### Y VITK1 #### [facility] (DEFAULT) [address] [place] [address] 44325 Squamous/Epithelial Cells 2-5/hpf = 2+ Normal 1/hpf = 1+, 2-5/hpf = 2+, 0/hpf = 0+, ABSENT [facility] Comment on above: Performed By: #### Y VITK1 #### [facility] (DEFAULT) [address] [place] [address] 46436 Urobilinogen Urine 0.2 E.U./dL Normal 0.2-1.0 [facility] Comment on above: Performed By: #### Y VITK1 #### [facility] (DEFAULT) [address] [place] [address] 93881 WBC LM.HPF (Urine sed) [#/Area] /[HPF] Abnormal 0-5 [facility] Comment on above: Performed By: #### Y VITK1 #### [facility] (DEFAULT) [address] [place] [address] 65343 URINALYSISOrdered By: Zoila Senior on 01-04-2021 Appearance (U) Cloudy Abnormal Clear U [facility] Bacteria LM Ql (Urine sed) PRESENT Abnormal ABSENT [facility] Color (U) Yellow Yellow [facility] Glucose Test strip (U) [Mass/Vol] 100 mg/dL [facility]ation and review of laboratory results Abnormal [facility] Ketones (U) [Mass/Vol] Negative Negative OS [facility] Leukocyte esterase Test strip Ql (U) Moderate Abnormal Negative [facility] Nitrite Ql (U) Negative Negative [facility] pH (U) 6.5 [pH] 5.0 - 7.0 [facility] Protein (U) [Mass/Vol] 100 mg/dL Abnormal Negative OS [facility] RBC (U) [#/Vol] Negative Negative [facility] RBC LM.HPF (Urine sed) [#/Area] 0-2 0 - 2 /HPF [facility] Specific gravity (U) [Rel density] 1.020 [facility] Squamous/Epithelial Cells 2-5/hpf = 2+ 1/hpf = 1+, 2-5/hpf = 2+, 0/hpf = 0+, ABSENT [facility] Urobilinogen (U) [Mass/Vol] 0.2 E.U./dL 0.2 - 1.0 [facility] WBC LM.HPF (Urine sed) [#/Area] /[HPF] Abnormal 0 - 5 /HPF [facility] URINE CULTUREon 01-04-2021 Bacteria identified Cx Nom (U) Normal [facility] Comment on above: Order Comment: For i ndwelling catheters, specimen collection is acceptable on catheter day 1 and 2 only. [place] top vacutainer. Urine must be to the fill line to process (4mls). If minimum volume, send urine in a yellow top vacutainer tube. Multiple bacterial morphotypes present. Suggest appropriate recollection if clinically indicated. Result Comment: Grow th 4474MIXED SKIN FLORAMIXED SKIN EMI 50,000-100,000 CFU/mL Mixed skin emi Performed By: #### U R #### U [facility] (DEFAULT) [address] [place] [address] 69205 VITAMIN D, (1,25 DIHYDROXY)o n 01-04-2021 1,25-Dihydroxyvitamin D 50.6 pg/mL Normal 20.0-79.0 O [facility] Comment on above: Order Comment: Vitam in D values have been shown to be falsely decreased in lipemic samples and should be interpreted with caution. Performed By: #### D 125 #### [facility] (DEFAULT) [address] [place] [address] 42604 XR CHEST AP PORTABLE EDon XR CHEST [...] spine. IMPRESSION: No focal consolidation identified. Normal [facility] IMPRESSION: No focal consolidation identified. OLOGY EXAM: [...] degenerative changes in the shoulders and spine. [facility] Rashad Mcgovern MD - 01/04/2021 EXAM: [...] spine. IMPRESSION IMPRESSION: No focal consolidation identified. [facility] Radiology Study observation (narrative) [facility] XR CHEST AP PORTABLE EDOrder ed By: Rashad Mcgovern on 01-04-2021 [facility] Work Phone: Cult Urineon 01-21-2020 Cult Urine Test performed at [facility] ORGANISM: *Klebsiella oxytoca (ID: 9) >100,000 CFU/ml CLSI breakpoints for therapy of uncomplicated UTI due to E. coli, K. pneumoniae or P. mirabilis were applied and may be used to predict the activity of oral agents (cefdinir, cefpodoxime, cefuroxime, and cephalexin). Normal [facility] Comment on above: Performed By: #### C _URI #### [facility] [address] [place], [place] [address] Basic Metabolic Panelon 07-0 3-2020 Anion gap [Moles/Vol] 9 mmol/L Normal 9-18 [facility] Comment on above: Performed By: #### B MP #### [facility] [address] [place], [place] [address] Calcium [Mass/Vol] 7.0 mg/dL Low 8.5-10.2 [facility] Comment on above: Performed By: #### B MP #### [facility] [address] [place] [address] Chloride [Moles/Vol] 102 mmol/L Normal 97-105 [facility] Comment on above: Performed By: #### B MP #### [facility] [address] [place], [place] [address] CO2 Blood 22 mmol/L Normal 22-30 [facility] Comment on above: Performed By: #### B MP #### [facility] [address] [place], [place] [address] Creatinine [Mass/Vol] 0.58 mg/dL Normal 0.58-0.96 [facility] Comment on above: Performed By: #### B MP #### [facility] [address] [place], [place] [address] Glucose [Mass/Vol] 192 mg/dL High 74-99 [facility] Comment on above: Result Comment: The [place] Diabetes Association (ADA) provides guidance for cutoff [...] Standards of Medical Care in Diabetes 2016; [place] [employer] Association. Diabetes Care. 2016;39(Suppl 1). Performed By: #### B MP #### [facility] [address] [place] [address] Potassium [Moles/Vol] 4.0 mmol/L Normal 3.7-5.1 [facility] Comment on above: Performed By: #### B MP #### [facility] [address] [place] [address] Sodium [Moles/Vol] 133 mmol/L Low 136-144 [facility] Comment on above: Performed By: #### B MP #### [facility] [address] [place] [address] Urea nitrogen [Mass/Vol] 9 mg/dL Normal 7-21 [facility] Comment on above: Performed By: #### B MP #### [facility] [address] [place] [address] Hemogram/Diffon 12-03-2019 Abs Immature Grans 0.04 thou/cmm Normal 0.00-0.05 [facility] Comment on above: Performed By: #### C BCD1 #### [facility] [address] [place] [address] Abs Neut (ANC) 7.31 thou/cmm High 1.56-6.13 [facility] Comment on above: Performed By: #### C BCD1 #### [facility] [address] [place] [address] Abs. Baso 0.03 thou/cmm Normal 0.01-0.08 [facility] Comment on above: Performed By: #### C BCD1 #### [facility] [address] [place] [address] Abs. [place] 0.75 thou/cmm High 0.27-0.70 [facility] Comment on above: Performed By: #### C BCD1 #### [facility] [address] [place] [address] Basophils/100 WBC (Bld) 0.3 % Normal A [facility] [place] Comment on above: Performed By: #### C BCD1 #### [place] [address] Eosinophils (Bld) [#/Vol] 0.07 thou/cmm Normal 0.00-0.31 [facility] Comment on above: Performed By: #### C BCD1 #### [facility] [address] [place], [place] [address] Eosinophils/100 WBC (Bld) 0.7 % Normal [facility] Comment on above: Performed By: #### C BCD1 #### [facility] [address] [place] [address] Erythrocyte distribution width (RBC) [Ratio] 14.8 % High 11.7-14.4 [facility] Comment on above: Performed By: #### C BCD1 #### [facility] [address] [place] [address] Hematocrit (Bld) [Volume fraction] 35.2 % Normal 34.1-44.9 [facility] Comment on above: Performed By: #### C BCD1 #### [place] [address] Hemoglobin (Bld) [Mass/Vol] 11.6 g/dL Normal 11.2-15.7 [facility] Comment on above: Performed By: #### C BCD1 #### [place] [address] Immature Grans 0.40 % Normal [facility] Comment on above: Performed By: #### C BCD1 #### [place] [address] Lymphocytes (Bld) [#/Vol] 1.45 thou/cmm Normal 1.18-3.74 [facility] Comment on above: Performed By: #### C BCD1 #### [facility] [address] [place], [place] [address] Lymphocytes/100 WBC (Bld) 15.0 % Normal [facility] Comment on above: Performed By: #### C BCD1 #### [facility] [address] [place] [address] MCH (RBC) [Entitic mass] 31.0 pg Normal 25.6-32.2 [facility] Comment on above: Performed By: #### C BCD1 #### [facility] [address] [place] [address] MCHC (RBC) [Mass/Vol] 33.0 % Normal 31.6-34.8 [facility] Comment on above: Performed By: #### C BCD1 #### [facility] [address] [place] [address] MCV (RBC) [Entitic vol] 94.1 fL Normal 79.4-94.8 [facility] Comment on above: Performed By: #### C BCD1 #### [facility] [address] [place] [address] Monocytes/100 WBC (Bld) 7.8 % Normal [facility] Comment on above: Performed By: #### C BCD1 #### [facility] [address] [place] [address] Platelet mean volume (Bld) [Entitic vol] 9.3 fL Low 9.4-12.3 [facility] Comment on above: Performed By: #### C BCD1 #### [facility] [address] [place] [address] Platelets (Bld) [#/Vol] 193 thou/cmm Normal 182-369 [facility] Comment on above: Performed By: #### C BCD1 #### [facility] [address] [place] [address] RBC (Bld) [#/Vol] 3.74 mil/cmm Low 3.93-5.22 [facility] Comment on above: Performed By: #### C BCD1 #### [facility] [address] [place] [address] RDW SD 50.8 fl High 36.4-46.3 [facility] Comment on above: Performed By: #### C BCD1 #### [facility] [address] [place] [address] Seg Neutrophil 75.8 % Normal [facility] Comment on above: Performed By: #### C BCD1 #### [facility] [address] [place] [address] WBC (Bld) [#/Vol] 9.65 thou/cmm Normal 3.98-10.04 [facility] Comment on above: Performed By: #### C BCD1 #### [place] [address] MDRD GFRon 12-03-2019 GFR/1.73 sq M predicted among non-blacks MDRD (S/P/Bld) [Vol rate/Area] mL/min/{1.73_m2} Normal >60mL/min/ 1.73m2 [facility] Comment on above: Result Comment: If t he patient is , multiply the result by 1.210. Performed By: #### G FR #### [place] [address] Glucose Meteron 12-02-2019 Glucose [Mass/Vol] 108 mg/dL High 70-99 [facility] Comment on above: Result Comment: MAY Chapa OTIFIED Performed By: #### G LMET #### [place] [address] Surgical Tissue Examon 12-01 Surgical Tissue Exam Test performed at [place] [address] NAME: MADELYN LOVE REQUESTING: SAMUEL SHEEHAN M.D. [...] The average wall thickness is 0.2 cm. [employer] sections are submitted in 2 cassettes. RSA/elizabetp RAYMOND LUNA M.D., PATHOLOGIST (Electronic signature on file) Signed out: 12/09/2019 14:57 PRINTED: 12/09/2019 Page 1 of 1 Normal [facility] Comment on above: Performed By: #### S URG #### [facility] [address] [place], [place] [address] XR COLON SINGLE CONTRASTon 0 09-27-2019 XR [...] Fluoroscopy was performed by the radiology physician's news production assistant. 2 minutes 42 seconds of fluoroscopy time [...] Diverticulosis coli. No evidence for colovesical fistula. [employer]: PSCB Transcribe Date/Time: Sep 27 2019 12:18P Dictated by : JORGE DEE MD This examination was interpreted and the report reviewed and electronically signed by: JORGE DEE MD on Sep 27 2019 12:20PM EST Normal [facility] ALLIED HEALTHon 08-18-2019 ALLIED HEALTH HNO ID: [id number] Author: Aurora Gann (Rt) Service: ? Author Type: Director Database Type: Allied Health Filed: 08/18/2019 1:57 PM [...] DATE: August 18, 2019 TIME: 1:30 PM [facility] MRI PERINEUM WO/W IVCONon MRI PERINEUM WO/W IVCON * * *Final Repor t* * * DATE OF EXAM: Aug 18 2019 1:58PM [facility] 0748 - MRI PERINEUM WO/W IVCON / [...] radiographic evaluation, consider noncontrast barium enema. V .2016 [employer]: ALESHA Transcribe Date/Time: Aug 18 2019 3:14P Dictated by : RODRIGUEZ LOZOYA, DO This examination was interpreted and the report reviewed and electronically signed by: PRINCESS SERRA MD on Aug 18 2019 4:56PM EST [id number] Normal [facility] MRI DYNAMIC PELVIS WO IVCONo n 08-10-2019 [...] of the levator ani muscles. Functional Evaluation: [place] used for evaluation of prolapse: Pubococcygeal line [...] rectocele. Mild rectal descent. Descending perineal syndrome. [employer]: ALESHA Transcribe Date/Time: Aug 12 2019 8:22A Dictated by : ARLEEN KHAN MD This examination was interpreted and the report reviewed and electronically signed by: ARLEEN KHAN MD on Aug 12 2019 5:43PM EST Normal [facility] XR ESOPHAGRAMon 06-30-2019 XR ESOPHAGRAM * [...] obtained. 36 seconds of fluoroscopic time utilized. [employer]: ALESHA Transcribe Date/Time: Jul 02 2019 2:12P Dictated by : SKYE PEPPER MD This examination was interpreted and the report reviewed and electronically signed by: SKYE PEPPER MD on Jul 02 2019 2:09PM EST This document has been addended by: SKYE PEPPER MD on Jul 02 2019 2:13PM EST Normal [facility] CBC with Diffon 12-17-2018 AB IMMATURE NEUT 0.03 K/UL Normal 0.0-0.1 [facility] Comment on above: Performed By: #### C BLIND AIDE #### [facility] [place] [address] [place] [address] ABS BASO 0.03 K/UL Normal 0.00-0.22 [facility] Comment on above: Performed By: #### C BLIND AIDE #### [facility] [place] [address] [place] [address] ABS EOS 0.04 K/UL Normal 0-0.45 [facility] Comment on above: Performed By: #### C BLIND AIDE #### [facility] [place] [address] [place] [address] ABS NEUTROPHILS 5.21 K/UL Normal 1.8-7.7 [facility] Comment on above: Performed By: #### C BLIND AIDE #### [facility] [address] [address] ABS.NEUT.CALCULATED Normal [facility] Comment on above: Result Comment: 5.21 Performed at [address] [place] [address] Performed By: #### C BLIND AIDE #### [address] [address] Basophils/100 WBC (Bld) 0.40 % Normal 0-1 [facility] Comment on above: Performed By: #### C BLIND AIDE #### [address] [address] DIFF TYPE AUTO DIFF Normal [facility] Comment on above: Performed By: #### C BLIND AIDE #### [facility] [place] [address] [place] [address] Eosinophils/100 WBC (Bld) 0.50 % Normal 0-3 [facility] Comment on above: Performed By: #### C BLIND AIDE #### [facility] [address] [address] Erythrocyte distribution width (RBC) [Ratio] 17.1 % High 11.7-15.0 [facility] Comment on above: Performed By: #### C BLIND AIDE #### [facility] [address] [address] Hematocrit (Bld) [Volume fraction] 35.4 % Low 36-44 [facility] Comment on above: Performed By: #### C BLIND AIDE #### [facility] [address] [address] Hemoglobin (Bld) [Mass/Vol] 10.8 g/dL Low 12.0-15.0 [facility] Comment on above: Performed By: #### C BLIND AIDE #### [facility] [address] [address] Lymphocytes (Bld) [#/Vol] 1.49 10*3/uL Normal 1.2-3.2 [facility] Comment on above: Performed By: #### C BLIND AIDE #### [facility] [address] [address] Lymphocytes/100 WBC (Bld) 20.30 % Normal 20-40 [facility] Comment on above: Performed By: #### C BLIND AIDE #### [facility] [address] [address] MCH (RBC) [Entitic mass] 28.4 pg Normal 26-34 [facility] Comment on above: Performed By: #### C BLIND AIDE #### [address] [address] MCHC (RBC) [Mass/Vol] 30.5 % Low 31-37 [facility] Comment on above: Performed By: #### C BLIND AIDE #### [place] [address] [place] [address] MCV (RBC) [Entitic vol] 93.2 fL Normal 80-100 L [facility] Comment on above: Performed By: #### C BLIND AIDE #### [facility] [place] [address] [place] [address] MEAN PLT VOL 10.2 CU Normal 7.0-12.6 [facility] Comment on above: Performed By: #### C BLIND AIDE #### [facility] [place] [address] [place] [address] Monocytes (Bld) [#/Vol] 0.54 10*3/uL Normal 0-0.8 [facility] Comment on above: Performed By: #### C BLIND AIDE #### [facility] [address] [place] [address] Monocytes/100 WBC (Bld) 7.40 % Normal 0-8 [facility] Comment on above: Performed By: #### C BLIND AIDE #### [facility] [address] [place] [address] Neutrophils/100 WBC (Bld) 0.40 % Normal 0.0-1.0 [facility] Comment on above: Performed By: #### C BLIND AIDE #### [facility] [place] [address] [place] [address] Neutrophils/100 WBC (Bld) 71.00 % High 50-70 [facility] Comment on above: Performed By: #### C BLIND AIDE #### [facility] [place] [address] [place] [address] NRBC'S 0 /100 WBC Normal 0 [facility] Comment on above: Performed By: #### C BLIND AIDE #### [facility] [place] [address] [place] [address] Platelets (Bld) [#/Vol] 312 10*3/uL Normal 150-450 [facility] Comment on above: Performed By: #### C BLIND AIDE #### [facility] [place] [address] [place] [address] RBC (Bld) [#/Vol] 3.80 M/UL Low 4.0-4.9 [facility] Comment on above: Performed By: #### C BLIND AIDE #### [facility] [place] [address] [place] [address] RDW-SD 58.8 FL High 37.0-54.0 [facility] Comment on above: Performed By: #### C BLIND AIDE #### [facility] [place] [address] [place] [address] WBC (Bld) [#/Vol] 7.3 10*3/uL Normal 4.5-11.0 [facility] Comment on above: Performed By: #### C BLIND AIDE #### [facility] [place] [address] [place] [address] Vitamin B1,Whole Bldon 12-02 Vitamin B1,Whole Bld [facility] Comment on above: Result Comment: 224. 8 [...] developed and its performance characteristics determined by [facility] [place] ([facility]). It has not been cleared or approved by the FDA. [facility] is regulated under CLIA as qualified to perform high complexity testing. This test is used for clinical purposes. It should not be regarded as investigational or for research. Performed at the [facility] Reference Laboratory unless otherwise noted. Performed By: #### C BLIND AIDE #### [place] [address] COPPERon 11-30-2018 [facility] Comment on above: Result Comment: 102 Reference range: 85 to 155 Unit: ug/dL This test was developed and its performance characteristics determined by [facility]'s [facility] [place] ([facility]). It has not been cleared or approved by the FDA. [facility] is regulated under CLIA as qualified to perform high complexity testing. This test is used for clinical purposes. It should not be regarded as investigational or for research. Performed at the [facility] Laboratory unless otherwise noted. Performed By: #### C OPS #### [address] [address] B12on 11-26-2018 Cobalamin (Vitamin B12) [Mass/Vol] Normal 211-946 [facility] Comment on above: Result Comment: 435 Deficient=<174 pg/ml Dlfffvqhokqqn=366-309 pg/ml Performed at [address] [address] Performed By: #### B 12 #### [address] [address] CBC with Diffon 11-26-2018 AB IMMATURE NEUT 0.04 K/UL Normal 0.0-0.1 [facility] Comment on above: Performed By: #### C BCD #### [place] [id number] ABS BASO 0.04 K/UL Normal 0.00-0.22 [facility] Comment on above: Performed By: #### C BCD #### [facility] [place] [address] [place] [address] ABS EOS 0.05 K/UL Normal 0-0.45 [facility] Comment on above: Performed By: #### C BCD #### [facility] [place] [address] [place] [address] ABS NEUTROPHILS 9.40 K/UL High 1.8-7.7 [facility] Comment on above: Performed By: #### C BCD #### [facility] [place] [address] [place] [address] ABS.NEUT.CALCULATED Normal [facility] Comment on above: Result Comment: 9.40 Performed at [place] [address] [place] [address] Performed By: #### C BCD #### [facility] [place] [address] [place] [address] Basophils/100 WBC (Bld) 0.30 % Normal 0-1 L [facility] Comment on above: Performed By: #### C BCD #### [facility] [place] [address] [place] [address] DIFF TYPE AUTO DIFF Normal [facility] Comment on above: Performed By: #### C BCD #### [facility] [place] [address] [place] [address] Eosinophils/100 WBC (Bld) 0.40 % Normal 0-3 [facility] Comment on above: Performed By: #### C BCD #### [facility] [place] [address] [place] [address] Erythrocyte distribution width (RBC) [Ratio] 17.1 % High 11.7-15.0 [facility] Comment on above: Performed By: #### C BCD #### [facility] [place] [address] [place] [address] Hematocrit (Bld) [Volume fraction] 34.0 % Low 36-44 [facility] Comment on above: Performed By: #### C BCD #### [facility] [place] [address] [place] [address] Hemoglobin (Bld) [Mass/Vol] 10.5 g/dL Low 12.0-15.0 [facility] Comment on above: Performed By: #### C BCD #### [facility] [place] [address] [place] [address] Lymphocytes (Bld) [#/Vol] 1.38 10*3/uL Normal 1.2-3.2 [facility] Comment on above: Performed By: #### C BCD #### [facility] [place] [address] [place] [address] Lymphocytes/100 WBC (Bld) 11.80 % Low 20-40 [facility] Comment on above: Performed By: #### C BCD #### [facility] Laboratory [address] [address] [place] [address] MCH (RBC) [Entitic mass] 27.7 pg Normal 26-34 [facility] Comment on above: Performed By: #### C BCD #### [address] [address] [place] [address] MCHC (RBC) [Mass/Vol] 30.9 % Low 31-37 [facility] Comment on above: Performed By: #### C BCD #### [address] [place] [address] MCV (RBC) [Entitic vol] 89.7 fL Normal 80-100 [facility] Comment on above: Performed By: #### C BCD #### [facility] [address] [address] [place] [address] MEAN PLT VOL 10.3 CU Normal 7.0-12.6 [facility] Comment on above: Performed By: #### C BCD #### [facility] [address] [address] [place] [address] Monocytes (Bld) [#/Vol] 0.80 10*3/uL Normal 0-0.8 [facility] Comment on above: Performed By: #### C BCD #### [facility] [address] [address] [place] [address] Monocytes/100 WBC (Bld) 6.80 % Normal 0-8 [facility] Comment on above: Performed By: #### C BCD #### [facility] [address] [address] [place] [address] Neutrophils/100 WBC (Bld) 80.40 % High 50-70 [facility] Comment on above: Performed By: #### C BCD #### [facility] [address] [address] [facility] [place] [address] Neutrophils/100 WBC (Bld) 0.30 % Normal 0.0-1.0 [facility] Comment on above: Performed By: #### C BCD #### [facility] [address] [address] [facility] [place] [address] NRBC'S 0 /100 WBC Normal 0 [facility] Comment on above: Performed By: #### C BCD #### [address] [address] [place] [address] Platelets (Bld) [#/Vol] 269 10*3/uL Normal 150-450 [facility] Comment on above: Performed By: #### C BCD #### [address] [address] [place] [address] RBC (Bld) [#/Vol] 3.79 M/UL Low 4.0-4.9 [facility] Comment on above: Performed By: #### C BCD #### [address] [address] [facility] [place] [address] RDW-SD 56.0 FL High 37.0-54.0 [facility] Comment on above: Performed By: #### C BCD #### [facility] [address] [address] [place] [address] WBC (Bld) [#/Vol] 11.7 10*3/uL High 4.5-11.0 [facility] Comment on above: Performed By: #### C BCD #### [facility] [address] [address] [facility] [place] [address] COMPREHENSIVE METABOLIC PANE Maximino 11-26-2018 Albumin [Mass/Vol] 3.9 g/dL Normal 3.5-5.0 [facility] Comment on above: Performed By: #### C BLIND AIDE #### [facility] [address] [address] [place] [address] Albumin/Globulin [Mass ratio] 1.4 {ratio} Low 1.5-3.0 [facility] Comment on above: Performed By: #### C BLIND AIDE #### [facility] [address] [place] [address] ALP [Catalytic activity/Vol] 112 U/L Normal 35-125 [facility] Comment on above: Performed By: #### C BLIND AIDE #### [facility] [address] [place] [address] ALT [Catalytic activity/Vol] 18 U/L Normal 5-40 [facility] Comment on above: Performed By: #### C BLIND AIDE #### [facility] [address] [address] [place] [address] Anion gap [Moles/Vol] 13 mmol/L Normal 0-19 [facility] Comment on above: Performed By: #### C BLIND AIDE #### [facility] [address] [address] [place] [address] AST [Catalytic activity/Vol] 20 U/L Normal 5-40 [facility] Comment on above: Performed By: #### C BLIND AIDE #### [facility] [address] [address] [place] [address] Bilirubin [Mass/Vol] 0.4 mg/dL Normal 0.1-1.2 [facility] Comment on above: Performed By: #### C BLIND AIDE #### [facility] [address] [address] [place] [address] Calcium [Mass/Vol] 9.0 mg/dL Normal 8.5-10.4 [facility] Comment on above: Performed By: #### C BLIND AIDE #### [facility] [address] [place] [address] Chloride [Moles/Vol] 94 mmol/L Low 97-107 [facility] Comment on above: Performed By: #### C BLIND AIDE #### Main Laboratory [address] [address] [place] [address] CO2 [Moles/Vol] 23 mmol/L Low 24-31 [facility] Comment on above: Performed By: #### C BLIND AIDE #### Main Laboratory [address] [address] Creatinine [Mass/Vol] 0.8 mg/dL Normal 0.4-1.6 [facility] Comment on above: Performed By: #### C BLIND AIDE #### [facility] [address] [address] GFR/1.73 sq M.predicted MDRD (S/P/Bld) [Vol rate/Area] Normal [facility] Comment on above: Result Comment: 75 GFR ml/min/1.73m2 Stage ----- 90 1 60-89 2 30-59 3 15-29 4 <15 5 For -Americans, multiply EGFR result by 1.210 Calculation not validated for patients under 18 years of age. Performed at [address] [place] [address] Performed By: #### C BLIND AIDE #### [address] [address] Globulin (S) [Mass/Vol] 2.8 g/dL Normal 1.9-3.7 L [facility] Comment on above: Performed By: #### C BLIND AIDE #### [facility] [address] [address] Glucose [Mass/Vol] 133 mg/dL High 65-99 [facility] Comment on above: Performed By: #### C BLIND AIDE #### [address] [address] Potassium [Moles/Vol] 4.7 mmol/L Normal 3.4-5.1 [facility] Comment on above: Performed By: #### C BLIND AIDE #### [facility] [address] [address] Protein [Mass/Vol] 6.7 g/dL Normal 5.9-7.9 [facility] Comment on above: Performed By: #### C BLIND AIDE #### [facility] [address] [address] Sodium [Moles/Vol] 130 mmol/L Low 133-145 [facility] Comment on above: Performed By: #### C BLIND AIDE #### [facility] [address] [address] Urea nitrogen [Mass/Vol] 20 mg/dL Normal 8-25 [facility] Comment on above: Performed By: #### C BLIND AIDE #### [facility] [address] [address] [place] [address] Urea nitrogen/Creatinine [Mass ratio] 25.0 RATIO High 8-21 [facility] Comment on above: Performed By: #### C BLIND AIDE #### [facility] [address] [address] [place] [address] FERRITINon 11-26-2018 Ferritin [Mass/Vol] Normal 13-150 [facility] Comment on above: Result Comment: 52 Performed at [address] [address] Performed By: #### F ER #### [address] [address] FOLIC ACIDon 11-26-2018 FOLIC ACID High 4.2-19.9 [facility] Comment on above: Result Comment: 20.0 GREATER THAN Deficient=<2.1 ng/ml Indeterminate=2.2-4.1 ng/ml Performed at [address] [address] Performed By: #### F A #### [address] [address] IRON PANELon 11-26-2018 Iron [Mass/Vol] 68 ug/dL Normal 30-160 [facility] Comment on above: Performed By: #### I P #### [address] [address] TOT.IRON BIND.CAP. 361 UG/DL Normal 228-428 [facility] Comment on above: Performed By: #### I P #### [address] [address] TRANSFERRIN % SAT. Normal 12-50 [facility] Comment on above: Result Comment: 18.8 Performed at [address] [place] [address] Performed By: #### I P #### [facility] [address] [address] PHOSPHORUSon 11-26-2018 Phosphate [Mass/Vol] High 2.5-4.5 [facility] Comment on above: Result Comment: 4.6 Performed at [address] [place] [address] Performed By: #### P HOS #### Main Laboratory [address] [address] [place] [address] PTH,INTACTon 11-26-2018 PTH,INTACT Normal 15-65 [facility] Comment on above: Result Comment: 30 Performed at [address] [place] [address] Performed By: #### P TH #### [facility] [address] [address] VITAMIN D 25 HYDROXYon 11-26 VITAMIN D 25 HYDROXY Normal 31-100 [facility] Comment on above: Result Comment: 40 Performed at [address] [place] [address] Performed By: #### V ITD #### [facility] [address] [address] Clostridium difficile detect ion by polymerase chain reaction C. difficile DNA MILKA+probe Ql (Unsp spec) [facility] Work Phone: Culture, urine Bacteria identified Cx Nom (U) Klebsiella pneumoniae sp pneum [facility] Work Phone: EP Panel Gastrointestinal pathogens panel MILKA+probe (Stl) [facility] Work Phone: No Panel Information Enteric Bacteriology [facility] Work Phone: Vital Signs Date Time Vital Sign Value Performing Clinician Facility 02-03-2024 17:43-0400 Body temperature 97.81 [degF] Alma Espinoza DO Work Phone: [facility] 02-03-2024 17:43-0400 Diastolic blood pressure 69 mm[Hg] Alma Espinoza DO Work Phone: [facility] 02-03-2024 17:43-0400 Heart rate 85 /min Alma Espinoza DO Work Phone: [facility] 02-03-2024 17:43-0400 Respiratory rate 14 /min Alma Espinoza DO Work Phone: [facility] [employer] 02-03-2024 17:43-0400 SaO2% (BldA) [Mass fraction] 93 % Alma Espinoza DO Work Phone: [facility] [employer] 02-03-2024 17:43-0400 Systolic blood pressure 153 mm[Hg] Alma Espinoza DO Work Phone: [facility] [employer] 01-24-2024 07:31-0400 Body temperature 97.2 [degF] Ja De La Cruz MD Work Phone: [employer] 01-24-2024 07:31-0400 Diastolic blood pressure 69 mm[Hg] Ja De La Cruz MD Work Phone: [employer] 01-24-2024 07:31-0400 Heart rate 86 /min Ja De La Cruz MD Work Phone: [employer] 01-24-2024 07:31-0400 Respiratory rate 18 /min Ja De La Cruz MD Work Phone: [employer] 01-24-2024 07:31-0400 SaO2% (BldA) [Mass fraction] 96 % Ja De La Cruz MD Work Phone: [employer] 01-24-2024 07:31-0400 Systolic blood pressure 159 mm[Hg] Ja De La Cruz MD Work Phone: [employer] 01-22-2024 15:00-0400 Body height 142.2 cm Ja De La Cruz MD Work Phone: [employer] 01-22-2024 15:00-0400 Body mass index (BMI) [Ratio] 35.65 kg/m2 Ja De La Cruz MD Work Phone: [employer] 01-22-2024 15:00-0400 Body weight 72.12 kg Ja De La Cruz MD Work Phone: [facility] [employer] 11-20-2023 10:47-0400 Body height 147.3 cm Luana Pardo APRN-GARMENT MENDER Work Phone: [facility] 11-20-2023 10:47-0400 Body mass index (BMI) [Ratio] 33.44 kg/m2 Luana Adenek SOFTWARE DEVELOPMENT COORDINATOR-GARMENT MENDER Work Phone: [facility] 11-20-2023 10:47-0400 Body weight 72.58 kg Luana Adenek SOFTWARE DEVELOPMENT COORDINATOR-GARMENT MENDER Work Phone: [facility] Comment on above: RECENT APPT/ UNABLE TO STAND TODAY 11-20-2023 10:47-0400 Diastolic blood pressure 58 mm[Hg] Luana Adenek SOFTWARE DEVELOPMENT COORDINATOR-GARMENT MENDER Work Phone: [facility] 11-20-2023 10:47-0400 Heart rate 74 /min Luana Markieek SOFTWARE DEVELOPMENT COORDINATOR-GARMENT MENDER Work Phone: [facility] 11-20-2023 10:47-0400 Systolic blood pressure 117 mm[Hg] Luana Adenek SOFTWARE DEVELOPMENT COORDINATOR-GARMENT MENDER Work Phone: [facility] 11-17-2023 14:12-0400 Body height 147.3 cm Marilia Thomae DO Work Phone: [facility] 11-17-2023 14:12-0400 Body mass index (BMI) [Ratio] 33.44 kg/m2 Marilia Thomae DO Work Phone: [facility] 11-17-2023 14:12-0400 Body weight 72.58 kg Marilia Thomae DO Work Phone: [facility] 11-17-2023 14:12-0400 Diastolic blood pressure 71 mm[Hg] Marilia Thomae DO Work Phone: [facility] 11-17-2023 14:12-0400 Heart rate 76 /min Marilia Thomae DO Work Phone: [facility] 11-17-2023 14:12-0400 Systolic blood pressure 121 mm[Hg] Marilia Thomae DO Work Phone: [facility] 05-15-2023 14:08-0500 Body height 147.3 cm Marilia Evelyne MORALES Work Phone: [facility] 05-15-2023 14:08-0500 Body mass index (BMI) [Ratio] 31.35 kg/m2 Marilia Stubbs DO Work Phone: [facility] 05-15-2023 14:08-0500 Body weight 68.04 kg Mariliawillie Stubbs DO Work Phone: [facility] 02-06-2023 13:58-0400 Body height 139.[address] Hugo Julio Work Phone: [facility] 02-06-2023 13:58-0400 Body mass index (BMI) [Ratio] 36.3 kg/m2 Dr. Hugo Julio Work Phone: [facility] 02-06-2023 13:58-0400 Body temperature 98.4 [degF] Dr. Hugo Julio Work Phone: [facility] 02-06-2023 13:58-0400 Body weight 70.[address] Hugo Julio Work Phone: [facility] 02-06-2023 13:58-0400 Diastolic blood pressure 60 mm[Hg] Dr. Hugo Julio Work Phone: [facility] 02-06-2023 13:58-0400 Heart rate 69 /min Dr. Hugo Julio Work Phone: [facility] 02-06-2023 13:58-0400 Respiratory rate 17 /min Dr. Hugo Julio Work Phone: [facility] 02-06-2023 13:58-0400 SaO2% (BldA) [Mass fraction] 97 % Dr. Hugo Julio Work Phone: [facility] 02-06-2023 13:58-0400 Systolic blood pressure 130 mm[Hg] Dr. Hugo Julio Work Phone: [facility] 01-16-2023 15:03-0400 Body height 146.05 cm Hugo Julio Work Phone: [facility] Work Phone: 01-16-2023 15:03-0400 Body mass index (BMI) [Ratio] 32.54 kg/m2 Hugo Jul[facility] Work Phone: 01-16-2023 15:03-0400 Body surface area Derived from formula 1.62 m2 Hugo Julio Work Phone[facility] Work Phone: 01-16-2023 15:03-0400 Body weight 69.4 kg Hugo Julio Work Phone: [facility] 120 Work Phone: 11-21-2022 14:30-0400 Body height 149.22 cm CARLOS JACK-KT Other [facility] [employer] Other 11-21-2022 14:30-0400 Body mass index (BMI) [Ratio] 30.55 kg/m2 CARLOS JACK-KT Other [facility] [employer] Other 11-21-2022 14:30-0400 Body weight 68.04 kg CARLOS JACK-KT Other [facility] [employer] Other 11-21-2022 14:30-0400 Diastolic blood pressure 67 mm[Hg] LUANA ADENEK Other [facility] [employer] Other 11-21-2022 14:30-0400 Heart rate 69 /min LUANA ADENEK Other [facility] [employer] Other 11-21-2022 14:30-0400 Systolic blood pressure 141 mm[Hg] LUANA PARDO Other [facility] Other 11-14-2022 08:34-0400 Body height 139.[address] Hugo Julio Work Phone: [facility] 11-14-2022 08:34-0400 Body mass index (BMI) [Ratio] 34.8 kg/m2 Dr. Hugo Julio Work Phone: [facility] 11-14-2022 08:34-0400 Body temperature 98.2 [degF] Dr. Hugo Julio Work Phone: [facility] 11-14-2022 08:34-0400 Body weight 68.[address] Hugo Julio Work Phone: [facility] 11-14-2022 08:34-0400 Diastolic blood pressure 70 mm[Hg] Dr. Hugo Julio Work Phone: [facility] 11-14-2022 08:34-0400 Heart rate 65 /min Dr. Hugo Julio Work Phone: [facility] 11-14-2022 08:34-0400 Respiratory rate 17 /min Dr. Hugo Julio Work Phone: [facility] 11-14-2022 08:34-0400 SaO2% (BldA) [Mass fraction] 97 % Dr. Hugo Julio Work Phone: [facility] 11-14-2022 08:34-0400 Systolic blood pressure 158 mm[Hg] Dr. Hugo Julio Work Phone: [facility] 11-07-2022 15:05-0400 Body mass index (BMI) [Ratio] 32.5 kg/m2 Ca Naidu MD Work Phone: [facility] 11-07-2022 15:05-0400 Body weight 68.13 kg Ca Naidu MD Work Phone: [facility] 11-07-2022 15:05-0400 Diastolic blood pressure 75 mm[Hg] Ca Naidu MD Work Phone: [facility] 11-07-2022 15:05-0400 Heart rate 68 /min Ca Naidu MD Work Phone: [facility] 11-07-2022 15:05-0400 Systolic blood pressure 160 mm[Hg] Ca Naidu MD Work Phone: [facility] 10-31-2022 13:22-0400 Body mass index (BMI) [Ratio] 35.1 kg/m2 Dr. Hugo Julio Work Phone: [facility] 10-31-2022 13:22-0400 Body weight 68.[address] Hugo Julio Work Phone: [facility] 10-31-2022 13:22-0400 Diastolic blood pressure 72 mm[Hg] Dr. Hugo Julio Work Phone: [facility] 10-31-2022 13:22-0400 Heart rate 66 /min Dr. Hugo Julio Work Phone: [facility] 10-31-2022 13:22-0400 Respiratory rate 18 /min Dr. Hugo Julio Work Phone: [facility] 10-31-2022 13:22-0400 SaO2% (BldA) [Mass fraction] 99 % Dr. Hugo Julio Work Phone: [facility] 10-31-2022 13:22-0400 Systolic blood pressure 150 mm[Hg] Dr. Hugo Julio Work Phone: [facility] 06-07-2022 13:51-0500 Body height 125.7 cm Lynne Key MD Work Phone: [facility] 06-07-2022 13:51-0500 Body temperature 97.59 [degF] Lynne Key MD Work Phone: [facility] 06-07-2022 13:51-0500 Body weight 63.69 kg Lynne Key MD Work Phone: [facility] 06-07-2022 13:51-0500 Diastolic blood pressure 54 mm[Hg] Lynne Key MD Work Phone: [facility] 06-07-2022 13:51-0500 Heart rate 66 /min Lynne Key MD Work Phone: [facility] 06-07-2022 13:51-0500 SaO2% (BldA) [Mass fraction] 100 % Lynne Key MD Work Phone: [facility] 06-07-2022 13:51-0500 Systolic blood pressure 156 mm[Hg] Lynne Key MD Work Phone: [facility] 05-08-2022 09:33-0500 Body height 139.[address] Hugo Julio Work Phone: [facility] Work Phone: 05-08-2022 09:33-0500 Body mass index (BMI) [Ratio] 32.6 kg/m2 Dr. Hugo Julio Work Phone: [facility] Work Phone: 05-08-2022 09:33-0500 Body weight 63.[address] Hugo Julio Work Phone: [facility] Work Phone: 05-06-2022 15:18-0500 Body height 146.05 cm Hugo Julio Work Phone: [facility] 120 Work Phone: 05-06-2022 15:18-0500 Body mass index (BMI) [Ratio] 28.71 kg/m2 Hugo Julio Work Phone: [facility] 120 Work Phone: 05-06-2022 15:18-0500 Body surface area Derived from formula 1.53 m2 Hugo Julio Work Phone: [facility] 120 Work Phone: 05-06-2022 15:18-0500 Body weight 61.24 kg Hugo Julio [facility] Work Phone: 05-06-2022 15:18-0500 Diastolic blood pressure 70 mm[Hg] Hugo Julio Work Phone: [facility] 120 Work Phone: 05-06-2022 15:18-0500 Systolic blood pressure 130 mm[Hg] Hugo Julio Work Phone: [facility] Work Phone: 04-30-2022 11:35-0500 Body mass index (BMI) [Ratio] 32.3 kg/m2 Dr. Hugo Julio Work Phone: [facility] Work Phone: 04-30-2022 11:35-0500 Body weight 63.[address] Hugo Julio Work Phone: [facility] Work Phone: 04-30-2022 11:35-0500 Diastolic blood pressure 80 mm[Hg] Dr. Hugo Julio Work Phone: [facility] Work Phone: 04-30-2022 11:35-0500 Heart rate 64 /min Dr. Hugo Julio Work Phone: [facility] Work Phone: 04-30-2022 11:35-0500 Respiratory rate 18 /min Dr. Hugo Julio Work Phone: [facility] Work Phone: 04-30-2022 11:35-0500 SaO2% (BldA) [Mass fraction] 99 % Dr. Hugo Julio Work Phone: [facility] Work Phone: 04-30-2022 11:35-0500 Systolic blood pressure 143 mm[Hg] Dr. Hugo Julio Work Phone: [facility] Work Phone: 04-29-2022 10:13-0500 Body height 142.5 cm Aakash Bryan MD Work Phone: [facility] 04-29-2022 10:13-0500 Body weight 62.78 kg Aakash Bryan MD Work Phone: [facility] 04-29-2022 10:13-0500 Diastolic blood pressure 76 mm[Hg] Aakash Bryan MD Work Phone: [facility] 04-29-2022 10:13-0500 Heart rate 78 /min Aakash Bryan MD Work Phone: [facility] 04-29-2022 10:13-0500 Systolic blood pressure 136 mm[Hg] Aakash Bryan MD Work Phone: [facility] 03-04-2022 11:48-0400 Body height 146.05 cm Hugo Julio Work Phone: [facility] Work Phone: 03-04-2022 11:48-0400 Body mass index (BMI) [Ratio] 28.5 kg/m2 Hugo Julio Work Phone: [facility] Work Phone: 03-04-2022 11:48-0400 Body surface area Derived from formula 1.53 m2 Hugo Julio Work Phone: [facility] Work Phone: 03-04-2022 11:48-0400 Body weight 60.78 kg Hugo Julio Work Phone: [facility] Work Phone: 03-04-2022 11:48-0400 Diastolic blood pressure 68 mm[Hg] Hugo Julio Work Phone: [facility] Work Phone: 03-04-2022 11:48-0400 Systolic blood pressure 150 mm[Hg] Hugo Julio Work Phone: [facility] Work Phone: 01-24-2022 14:00-0400 Body height 149.22 cm CARLOS JACK-KT Other [facility] [employer] Other 01-24-2022 14:00-0400 Body mass index (BMI) [Ratio] 26.89 kg/m2 CARLOS JACK-KT Other [facility] [employer] Other 01-24-2022 14:00-0400 Body weight 59.88 kg CARLOS JACK-KT Other [facility] [employer] Other 01-24-2022 14:00-0400 Diastolic blood pressure 64 mm[Hg] CARLOS JACK-KT Other [facility] [employer] Other 01-24-2022 14:00-0400 Heart rate 70 /min CARLOS JACK-KT Other [facility] [employer] Other 01-24-2022 14:00-0400 Systolic blood pressure 155 mm[Hg] CARLOS JACK-KT Other [facility] [employer] Other 12-06-2021 15:07-0400 Body height 139.[address] Hugo Julio Work Phone: [facility] Work Phone: 12-06-2021 15:07-0400 Body mass index (BMI) [Ratio] 31.8 kg/m2 Dr. Hugo Julio Work Phone: [facility] Work Phone: 12-06-2021 15:07-0400 Body temperature 98.6 [degF] Dr. Hugo Julio Work Phone: [facility] Work Phone: 12-06-2021 15:07-0400 Body weight 62.[address] Hugo Julio Work Phone: [facility] Work Phone: 12-06-2021 15:07-0400 Diastolic blood pressure 70 mm[Hg] Dr. Hugo Julio Work Phone: [facility] Work Phone: 12-06-2021 15:07-0400 Heart rate 66 /min Dr. Hugo Julio Work Phone: [facility] Work Phone: 12-06-2021 15:07-0400 Respiratory rate 16 /min Dr. Hugo Julio Work Phone: [facility] Work Phone: 12-06-2021 15:07-0400 SaO2% (BldA) [Mass fraction] 97 % Dr. Hugo Julio Work Phone: [facility] Work Phone: 12-06-2021 15:07-0400 Systolic blood pressure 150 mm[Hg] Dr. Hugo Julio Work Phone: [facility] Work Phone: 10-17-2021 15:14-0400 Body height 139.[address] Hugo Julio Work Phone: [facility] Work Phone: 10-17-2021 15:14-0400 Body mass index (BMI) [Ratio] 31.8 kg/m2 Dr. Hugo Julio Work Phone: [facility] Work Phone: 10-17-2021 15:14-0400 Body weight 62.[address] Hugo Julio Work Phone: [facility] Work Phone: 10-17-2021 15:14-0400 Diastolic blood pressure 77 mm[Hg] Dr. Hugo Julio Work Phone: [facility] Work Phone: 10-17-2021 15:14-0400 Heart rate 72 /min Dr. Hugo Julio Work Phone: [facility] Work Phone: 10-17-2021 15:14-0400 Respiratory rate 16 /min Dr. Hugo Julio Work Phone: [facility] Work Phone: 10-17-2021 15:14-0400 SaO2% (BldA) [Mass fraction] 98 % Dr. Hugo Julio Work Phone: [facility] Work Phone: 10-17-2021 15:14-0400 Systolic blood pressure 156 mm[Hg] Dr. Hugo Julio Work Phone: [facility] Work Phone: 10-17-2021 15:14-0400 Body height 139.[address] Hugo Julio Work Phone: [facility] Work Phone: 10-17-2021 15:14-0400 Body mass index (BMI) [Ratio] 31.8 kg/m2 Dr. Hugo Julio Work Phone: [facility] Work Phone: 10-17-2021 15:14-0400 Body weight 62.[address] Hugo Julio Work Phone: [facility] Work Phone: 10-17-2021 15:14-0400 Diastolic blood pressure 77 mm[Hg] Dr. Hugo Julio Work Phone: [facility] Work Phone: 10-17-2021 15:14-0400 Heart rate 72 /min Dr. Hugo Julio Work Phone: [facility] Work Phone: 10-17-2021 15:14-0400 Respiratory rate 16 /min Dr. Hugo Julio Work Phone: [facility] Work Phone: 10-17-2021 15:14-0400 SaO2% (BldA) [Mass fraction] 98 % Dr. Hugo Julio Work Phone: [facility] Work Phone: 10-17-2021 15:14-0400 Systolic blood pressure 156 mm[Hg] Dr. Hugo Julio Work Phone: [facility] Work Phone: 10-11-2021 11:27-0400 Body height 146.05 cm Hugo Jul[facility] Work Phone: 10-11-2021 11:27-0400 Body mass index (BMI) [Ratio] 28.71 kg/m2 Hugo Julio [facility]: [facility] Work Phone: 10-11-2021 11:27-0400 Body surface area Derived from formula 1.53 m2 Hugo Julio [facility] Phone: [facility] Work Phone: 10-11-2021 11:27-0400 Body weight 61.24 kg Hugo Julio [facility]: [facility] Work Phone: 10-11-2021 11:27-0400 Diastolic blood pressure 80 mm[Hg] Hugo Julio Work Phone: [facility] 120 Work Phone: 10-11-2021 11:27-0400 Systolic blood pressure 150 mm[Hg] Hugo Julio Work Phone: [facility] G[facility] 120 Work Phone: 09-03-2021 18:24-0400 Body temperature 97.7 [degF] Dr. Hugo Julio Work Phone: [facility] Work Phone: 09-03-2021 18:24-0400 Diastolic blood pressure 57 mm[Hg] Dr. Hugo Julio Work Phone: [facility] Work Phone: 09-03-2021 18:24-0400 Heart rate 80 /min Dr. Hugo Julio Work Phone: [facility] Work Phone: 09-03-2021 18:24-0400 Respiratory rate 16 /min Dr. Hugo Julio Work Phone: [facility] Work Phone: 09-03-2021 18:24-0400 SaO2% (BldA) [Mass fraction] 92 % Dr. Hugo Julio Work Phone: [facility] Work Phone: 09-03-2021 18:24-0400 Systolic blood pressure 147 mm[Hg] Dr. Hugo Julio Work Phone: [facility] Work Phone: 09-03-2021 13:31-0400 Body height 139.[address] Hugo Julio Work Phone: [facility] Work Phone: 09-03-2021 13:31-0400 Body mass index (BMI) [Ratio] 30 kg/m2 Dr. Hugo Julio Work Phone: [facility] Work Phone: 09-03-2021 13:31-0400 Body weight 58.[address] Hugo Julio Work Phone: [facility] Work Phone: 08-09-2021 08:02-0500 Body mass index (BMI) [Ratio] 31.6 kg/m2 Dr. Hugo Julio Work Phone: [facility] Work Phone: 08-09-2021 08:02-0500 Body temperature 99.5 [degF] Dr. Hugo Julio Work Phone: [facility] Work Phone: 08-09-2021 08:02-0500 Body weight 61.[address] Hugo Julio Work Phone: [facility] Work Phone: 08-09-2021 08:02-0500 Diastolic blood pressure 88 mm[Hg] Dr. Hugo Julio Work Phone: [facility] Work Phone: 08-09-2021 08:02-0500 Heart rate 77 /min Dr. Hugo Julio Work Phone: [facility] Work Phone: 08-09-2021 08:02-0500 Respiratory rate 18 /min Dr. Hugo Julio Work Phone: [facility] Work Phone: 08-09-2021 08:02-0500 SaO2% (BldA) [Mass fraction] 99 % Dr. Hugo Julio Work Phone: [facility] Work Phone: 08-09-2021 08:02-0500 Systolic blood pressure 180 mm[Hg] Dr. Hugo Julio Work Phone: [facility] Work Phone: 08-09-2021 07:02-0500 Body mass index (BMI) [Ratio] 31.6 kg/m2 Dr. Hugo Julio Work Phone: [facility] Work Phone: 08-09-2021 07:02-0500 Body temperature 99.5 [degF] Dr. Hugo Julio Work Phone: [facility] Work Phone: 08-09-2021 07:02-0500 Body weight 61.[address] Hugo Julio Work Phone: [facility] Work Phone: 08-09-2021 07:02-0500 Diastolic blood pressure 88 mm[Hg] Dr. Hugo Julio Work Phone: [facility] Work Phone: 08-09-2021 07:02-0500 Heart rate 77 /min Dr. Hugo Julio Work Phone: [facility] Work Phone: 08-09-2021 07:02-0500 Respiratory rate 18 /min Dr. Hugo Julio Work Phone: [facility] Work Phone: 08-09-2021 07:02-0500 SaO2% (BldA) [Mass fraction] 99 % Dr. Hugo Julio Work Phone: [facility] Work Phone: 08-09-2021 07:02-0500 Systolic blood pressure 180 mm[Hg] Dr. Hugo Julio Work Phone: [facility] Work Phone: 07-26-2021 15:38-0500 Body height 144.78 cm Hugo Julio Work Phone: [facility] Work Phone: 07-26-2021 15:38-0500 Body mass index (BMI) [Ratio] 28.56 kg/m2 Hugo Julio Work Phone: [facility] 120 Work Phone: 07-26-2021 15:38-0500 Body surface area Derived from formula 1.51 m2 Hugo Julio Work Phone: [facility] 120 Work Phone: 07-26-2021 15:38-0500 Body weight 59.88 kg Hugo Julio Work Phone: [facility] Work Phone: 07-26-2021 15:38-0500 Diastolic blood pressure 80 mm[Hg] Hugo Julio Work Phone: [facility] 120 Work Phone: 07-26-2021 15:38-0500 Systolic blood pressure 160 mm[Hg] Hugo Julio Work Phone: [facility] 120 Work Phone: 05-30-2021 12:25-0500 Diastolic blood pressure 55 mm[Hg] Dr. Hugo Julio Work Phone: [facility] Work Phone: 05-30-2021 12:25-0500 Heart rate 67 /min Dr. Hugo Julio Work Phone: [facility] Work Phone: 05-30-2021 12:25-0500 Respiratory rate 18 /min Dr. Hugo Julio Work Phone: [facility] Work Phone: 05-30-2021 12:25-0500 SaO2% (BldA) [Mass fraction] 100 % Dr. Hugo Julio Work Phone: [facility] Work Phone: 05-30-2021 12:25-0500 Systolic blood pressure 195 mm[Hg] Dr. Hugo Julio Work Phone: [facility] Work Phone: 05-30-2021 10:44-0500 Body mass index (BMI) [Ratio] 31.1 kg/m2 Dr. Hugo Julio Work Phone: [facility] Work Phone: 05-30-2021 10:44-0500 Body temperature 99.1 [degF] Dr. Hugo Julio Work Phone: [facility] Work Phone: 05-30-2021 10:44-0500 Body weight 65.[address] Hugo Julio Work Phone: [facility] Work Phone: 01-08-2021 06:07-0400 Body temperature 97.81 [degF] Damien Ocasio MD Work Phone: [facility] 01-08-2021 06:07-0400 Diastolic blood pressure 74 mm[Hg] Damien Ocasio MD Work Phone: [facility] 01-08-2021 06:07-0400 Heart rate 63 /min Damien Ocasio MD Work Phone: [facility] 01-08-2021 06:07-0400 Respiratory rate 14 /min Damien Ocasio MD Work Phone: [facility] 01-08-2021 06:07-0400 SaO2% (BldA) [Mass fraction] 97 % Damien Ocasio MD Work Phone: [facility] 01-08-2021 06:07-0400 Systolic blood pressure 154 mm[Hg] Damien Ocasio MD Work Phone: [facility] 01-05-2021 02:14-0400 Body height 146.1 cm Damein Ocasio MD Work Phone: [facility] 01-05-2021 02:14-0400 Body mass index (BMI) [Ratio] 28.08 kg/m2 Damien Ocasio MD Work Phone: [facility] 01-05-2021 02:14-0400 Body weight 59.9 kg Damien Ocasio MD Work Phone: [facility] Encounters Encounter Date Encounter Type Care Provider Facility Start: 03-18-2025 End: 03-18-2025 [facility] Facility:[facility] Start: 03-10-2025 End: 03-10-2025 ambulatory Hazel Dupree Facility:[facility] Start: 03-03-2025 ambulatory Hazel Dupree Facility: [facility] Start: 02-21-2025 End: 02-21-2025 ambulatory Hazel Dupree Facility:[facility] Start: 02-17-2025 End: 02-17-2025 ambulatory Jenny Aguirre Facility:[facility] Start: 02-15-2025 End: 02-15-2025 ambulatory Mary LO Facility:[facility] Start: 02-08-2025 End: 02-08-2025 ambulatory SHANTEL CHEUNG SOFTWARE DEVELOPMENT COORDINATOR-GARMENT MENDER Facility:[facility] Start: 02-08-2025 End: 02-08-2025 Patient encounter procedure BELKYS CAZARES MD [facility] Start: 02-02-2025 End: 02-02-2025 ambulatory Hazel Dupree Facility:[facility] Start: 01-26-2025 End: 01-26-2025 ambulatory Hugo Julio Facility:[facility] Start: 01-26-2025 End: 01-26-2025 ambulatory Hazel Dupree Facility:[facility] Start: 01-14-2025 End: 01-14-2025 ambulatory Hugo Julio [facility] Start: 01-06-2025 End: 01-06-2025 ambulatory Hugo Julio [facility] Start: 11-10-2024 End: 11-10-2024 ambulatory Hugo Julio Facility:[facility] Start: 11-02-2024 End: 11-02-2024 ambulatory Hugo Julio Facility:[facility] Start: 10-22-2024 End: 10-22-2024 ambulatory Hugo Julio Facility:[facility] Start: 10-14-2024 End: 10-14-2024 ambulatory Herman Ochoa Facility:[facility] Start: 10-13-2024 End: 10-13-2024 ambulatory David Puga Facility:[facility] Start: 06-09-2024 End: 06-30-2024 ambulatory Yecenia Mederos NP Facility:[facility] Start: 06-08-2024 End: 01-07-2025 ambulatory Jenny Aguirre Facility:[facility] Start: 06-04-2024 End: 06-04-2024 ambulatory SHANTEL CHEUNG Facility:[facility] Start: 05-24-2024 End: 05-24-2024 ambulatory Hugo Julio Facility:[facility] Start: 05-19-2024 End: 05-19-2024 ambulatory Jenny Aguirre [facility] Start: 05-19-2024 End: 06-01-2024 ambulatory Penelope Aviles MARIA ISABEL Facility:[facility] Start: 05-19-2024 End: 05-19-2024 ambulatory Jenny Aguirre Facility:[facility] Start: 05-03-2024 End: 05-03-2024 ambulatory Hugo Julio Facility:[facility] Start: 04-28-2024 End: 05-01-2024 ambulatory Penelope Aviles MARIA ISABEL Facility:[facility] Start: 04-27-2024 End: 04-27-2024 ambulatory Hugo Julio Facility:[facility] Start: 04-26-2024 End: 04-26-2024 ambulatory David Corleyotisronni Facility:[facility] Start: 04-24-2024 End: 04-24-2024 Emergency department patient visit Hugo Julio Facility:[facility] Start: 04-09-2024 End: 04-09-2024 ambulatory Hugo Julio Facility:[facility] Start: 03-01-2024 End: 03-01-2024 Jazmin Hill MD Work Phone: [facility] Start: 03-01-2024 End: 03-01-2024 Bambomaria isabel flowsmohsen Hill MD Work Phone: [facility] Start: 03-01-2024 End: 03-01-2024 Office outpatient visit 25 minutes Aleksey Hill MD Work Phone: [facility] Comment on above: Neuropathy, idiopath ic (Primary Dx); Cervical myelopathy (CMS/HCC); Numbness and tingling of both lower extremities Start: 02-03-2024 End: 02-03-2024 Emergency department patient visit Alma Espinoza DO Work Phone: [facility] Comment on above: Contusion of chest w all, unspecified laterality, initial encounter (Primary Dx); Contusion of right elbow, initial encounter; Skin tear of right elbow without complication, initial encounter; History of gastric bypass Start: 01-22-2024 End: 01-24-2024 Evaluation and management of inpatient Ja De La Cruz MD Work Phone: [facility] Comment on above: Hyponatremia (Primar y Dx); Urinary tract infection in female Start: 12-03-2023 End: 12-03-[address] KATHY MCCARTY MD Facility:[facility] Start: 12-03-2023 End: 12-03-[address] KATHY MCCARTY MD [facility] Start: 11-20-2023 End: 11-20-2023 Office outpatient visit 25 minutes [facility] SOFTWARE DEVELOPMENT COORDINATOR-GARMENT MENDER Work Phone: [facility] Comment on above: Intestinal malabsorp tion, unspecified type (HHS-HCC) (Primary Dx); Hyperparathyroidism (Multi); Vitamin D deficiency; Gastroesophageal reflux disease, unspecified whether esophagitis present; Hiatal hernia; History of Shani-en-Y gastric bypass; Vitamin B12 deficiency Start: 11-20-2023 End: 11-20-2023 ambulatory [facility] Ambulatory Start: 11-17-2023 End: 11-17-2023 Office outpatient visit 25 minutes Marilia Stubbs DO Work Phone: [facility] Comment on above: Bile salt-induced di arrhea (HHS-HCC) (Primary Dx); Irritable bowel syndrome with diarrhea; Campylobacter enteritis Start: 11-17-2023 End: 11-17-2023 ambulatory MARILIA STUBBS [facility] Ambulatory Start: 05-22-2023 End: 05-22-[address] Hugo Julio Work Phone: [facility] Work Phone: Start: 05-22-2023 End: 05-22-[address] Hugo Julio Work Phone: [facility] Work Phone: Start: 05-15-2023 End: 05-15-2023 Office outpatient visit 15 minutes Marilia Stubbs Work Phone: [facility] Comment on above: History of Shani-en-Y gastric bypass (Primary Dx); Bile salt-induced diarrhea; Irritable bowel syndrome with diarrhea Start: 05-15-2023 End: 05-15-2023 ambulatory [facility] Ambulatory Start: 05-08-2023 End: 05-08-[address] Hugo Julio Work Phone: [facility] Work Phone: Start: 05-08-2023 End: 05-08-[address] Hugo Julio Work Phone: [facility] Work Phone: Start: 05-01-2023 End: 05-01-[address] Hugo Julio Work Phone: [facility] Work Phone: Start: 05-01-2023 End: 05-01-[address] Hugo Julio Work Phone: [facility] Start: 04-28-2023 End: 04-28-[address] Hugo Julio Work Phone: [facility] Work Phone: Start: 02-06-2023 End: 02-06-[address] Hugo Julio Work Phone: [facility] Work Phone: Start: 01-16-2023 Office outpatient visit 15 minutes Hugo uJlio Work Phone: [facility] [place] [id number] Work Phone: Start: 01-16-[address] Hugo Julio [facility] [id number] Start: 01-08-2023 End: 01-08-[address] Hugo Julio Work Phone: [facility] Work Phone: Start: 01-08-2023 End: 01-08-[address] Hugo Julio Work Phone: [facility] Work Phone: Start: 11-21-2022 (EDUC) EDUCATION CARLOS JACK-KT [facility] Start: 11-21-2022 End: 11-21-2022 ambulatory CARLOS JACK-KT Other [facility] Other Start: 11-21-2022 Office outpatient visit 25 minutes [facility] Start: 11-14-2022 End: 11-14-[address] uHgo Julio Work Phone: [facility] Work Phone: Start: 11-07-2022 End: 11-07-2022 Office outpatient visit 40 minutes Ca Naidu MD Work Phone: [facility] Geriatrics Comment on above: History of delirium (Primary Dx) Start: 11-07-2022 End: 11-07-[address] Hugo Julio Work Phone: [facility] Work Phone: Start: 10-31-2022 End: 10-31-[address] Hugo Julio Work Phone: [facility] Work Phone: Start: 10-24-2022 End: 10-24-2022 ambulatory CARLOS JACK-KT Other [facility] Other Start: 10-24-2022 Telephone encounter CARLOS JACK-KT [facility] Start: 10-17-[address] Hugo Workman [id number] Start: 10-14-2022 End: 10-14-[address] Hugo Julio Work Phone: [facility] Work Phone: Start: 10-07-2022 End: 10-07-2022 ambulatory CARLOS JACK-KT Other [facility] Other Start: 10-07-2022 Telephone encounter CARLOS JACK-KT [facility] Start: 07-18-2022 End: 07-19-2022 ambulatory AAKASH BRYAN Facility:[facility] Start: 07-18-2022 End: 07-18-2022 ambulatory Lynne Key MD Work Phone: Gastroenterology Comment on above: Diarrhea due to adilene bsorption (Primary Dx) Start: 07-18-2022 End: 07-18-2022 Telemedicine consultation with patient Lynne Key MD Work Phone: [facility] Start: 06-11-[address] Hugo Workman [id number] Start: 06-10-2022 End: 06-10-2022 ambulatory HUGO JULIO Facility:[facility] Start: 06-07-2022 End: 06-07-2022 ambulatory AAKASH BRYAN Facility:[facility] Start: 06-07-2022 End: 06-07-2022 Patient encounter procedure Lynne Key MD Work Phone: Gastroenterology Comment on above: Intestinal malabsorp tion, unspecified type (Primary Dx); Chronic diarrhea Start: 05-28-2022 End: 05-28-[address] Hugo Julio Work Phone: [facility] Work Phone: Start: 05-28-2022 End: 05-28-[address] Hugo Julio Work Phone: [facility] Start: 05-10-2022 Non-patient / Non-visit Dr. Hugo Julio Work Phone: [facility] Start: 05-10-2022 End: 05-10-[address] Hugo Julio Work Phone: [facility] Work Phone: Start: 05-10-2022 End: 05-10-[address] [facility] Start: 05-08-2022 End: 05-08-[address] Hugo Julio Work Phone: [facility] Start: 05-07-2022 End: 05-07-[address] Hugo Julio Work Phone: [facility] Work Phone: Start: 05-07-2022 End: 05-07-[address] Hugo Julio Work Phone: [facility] Start: 05-06-2022 Office outpatient visit 25 minutes Hugo Julio Work Phone: [facility] [place] [id number] Work Phone: Start: 05-06-2022 ambulatory DO MARILIA Still [id number] Start: 05-02-2022 End: 05-02-2022 ambulatory RENZO CALLEJAS Facility:[facility] Start: 04-30-2022 End: 04-30-[address] Hugo Julio Work Phone: [facility] Work Phone: Start: 04-30-2022 End: 04-30-[address] Hugo Julio Work Phone: [facility] Start: 04-30-2022 Telephone encounter Lynne driver MD Work Phone: Gastroenterology Comment on above: Appointment Start: 04-30-2022 End: 04-30-[address] Hugo Julio Work Phone: [facility] Start: 04-29-2022 End: 04-30-2022 ambulatory AAKASH BRYAN Facility:[facility] Start: 04-29-2022 End: 04-29-2022 Patient encounter procedure Aakash Bryan MD Work Phone: General Surgery Comment on above: S/P gastric bypass ( Primary Dx); Diarrhea, unspecified type; Abdominal bloating with cramps Start: 03-29-2022 AUDIT Hugo Julio Work Phone: [facility] [place] [id number] Work Phone: Start: 03-26-2022 Telephone encounter Ligia Juarez RN General Surgery Comment on above: BMI Follow up ; Retu rning Patient's Call Start: 03-20-2022 End: 03-20-[address] Hugo Julio Work Phone: [facility] Work Phone: Start: 03-20-2022 End: 03-20-[address] Hugo Julio Work Phone: [facility] Start: 03-14-2022 Telephone encounter Renzo Callejas MD Work Phone: General Surgery Comment on above: Patient Question; COLON/EGD LODI Start: 03-12-2022 End: 03-12-2022 ambulatory RENZO CALLEJAS Facility:[facility] Start: 03-12-2022 End: 03-12-2022 Subsequent hospital visit by physician [facility] (I-Stat) Work Phone: Cat Scan Comment on above: Abdominal bloating w ith cramps [R14.0, R10.9] Start: 03-12-2022 End: 03-12-[address] Hugo Julio Work Phone: [facility] Work Phone: Start: 03-12-2022 End: 03-12-[address] Hugo Julio Work Phone: [facility] Start: 03-04-2022 Office outpatient visit 25 minutes Hugo Julio Work Phone: [facility] 120 Work Phone: Start: 03-04-2022 ambulatory DO MARILIA AUGUSTINEVETTE Stilli [id number] Start: 02-28-2022 End: 02-28-2022 ambulatory RENZO CALLEJAS Facility:[facility] Start: 02-28-2022 End: 02-28-2022 ambulatory HUGO JULIO Facility:[facility] Start: 01-24-2022 (EDUC) EDUCATION CARLOS JACK-KT [facility] Start: 01-24-2022 End: 01-24-2022 ambulatory CARLOS JACK-KT Other [facility] Other Start: 01-24-2022 Office outpatient visit 15 minutes CARLOS JACK-KT [facility] Start: 01-16-2022 End: 01-16-[address] Hugo Julio Work Phone: [facility] Start: 01-15-2022 End: 01-15-[address] Hugo Julio Work Phone: [facility] Start: 01-08-2022 AUDIT Hugo Julio Work Phone: [facility] 120 Work Phone: Start: 01-04-2022 End: 01-04-[address] Hugo Julio Work Phone: [facility] Start: 01-02-2022 End: 01-02-[address] Hugo Julio Work Phone: [facility] Start: 12-25-2021 End: 12-25-[address] Hugo Julio Work Phone: [facility] Start: 12-06-2021 End: 12-06-[address] Hugo Julio Work Phone: [facility] Start: 12-06-2021 End: 12-06-[address] Hugo Julio Work Phone: [facility] Start: 11-16-2021 Non-patient / Non-visit Dr. Hugo Julio Work Phone: [facility] Start: 11-16-2021 End: 11-16-[address] [facility] Start: 11-12-2021 End: 11-12-2021 Subsequent hospital visit by physician Ca Naidu MD Work Phone: [facility] Start: 10-30-2021 Rx Change Hugo Julio Work Phone: [facility] Work Phone: Start: 10-24-2021 AUDIT Hugo Julio Work Phone: [facility] 120 Work Phone: Start: 10-23-2021 End: 10-23-[address] Hugo Julio Work Phone: [facility] Start: 10-17-2021 End: 10-17-[address] Hugo Julio Work Phone: [facility] Start: 10-17-2021 End: 10-17-[address] Hugo Julio Work Phone: [facility] Start: 10-11-2021 Office outpatient visit 25 minutes Hugo Julio Work Phone: [facility] 120 Work Phone: Start: 10-10-2021 End: 10-10-[address] Hugo Julio Work Phone: [facility] Start: 09-06-2021 MAMTA Julio Work Phone: [facility] 120 Work Phone: Start: 09-06-2021 End: 09-06-[address] Hugo Julio Work Phone: [facility] Start: 09-03-2021 End: 09-03-2021 Admission to same day surgery center Dr[facility] Start: 08-25-[address] Hugo Julio Work Phone: [facility] Start: 08-24-2021 End: 08-24-[address] Hugo Julio Work Phone: [facility] Start: 08-17-2021 End: 08-17-[address] Hugo Julio Work Phone: [facility] Start: 08-15-2021 End: 08-15-[address] Hugo Julio Work Phone: [facility] Start: 08-13-2021 End: 08-13-2021 Subsequent hospital visit by physician Ca Naidu MD Work Phone: [facility] Start: 08-09-2021 End: 08-09-[address] Hugo Julio Work Phone: [facility] Start: 08-09-2021 End: 08-09-[address] Hugo Julio Work Phone: [facility] Start: 08-03-2021 End: 08-03-[address] Hugo Julio Work Phone: [facility] Start: 07-26-2021 Office outpatient visit 25 minutes Hugo Julio Work Phone: [facility] Work Phone: Start: 07-25-2021 End: 07-25-[address] Hugo Julio Work Phone: [facility] Start: 07-16-2021 End: 07-16-[address] Hugo Julio Work Phone: [facility] Start: 06-29-2021 End: 06-29-[address] Hugo Julio Work Phone: [facility], Specimen Start: 06-26-2021 End: 06-26-[address] Hugo Julio Work Phone: [facility] Start: 06-21-2021 End: 06-21-[address] Hugo Julio Work Phone: [facility] Start: 06-20-2021 Rx Change Hugo Julio Work Phone: [facility] 120 Work Phone: Start: 06-12-2021 End: 06-12-[address] Hugo Julio Work Phone: [facility] Spec[facility] Start: 06-11-2021 Patient encounter procedure Hugo Julio Work Phone: [facility] [address] [facility] Work Phone: Start: 06-07-2021 End: 06-07-[address] Hugo Julio Work Phone: [facility] Start: 06-04-2021 FUV, Provider: Marilia Stubbs, Status: Pen, Time: 2:45 PM Hugo Julio Work Phone: [facility] 120 Work Phone: Start: 05-30-[address] Hugo Julio Work Phone: [facility] Start: 05-30-2021 AUDIT Hugo Julio Work Phone: [facility] 120 Work Phone: Start: 05-18-[address] Hugo Julio Work Phone: [facility] Start: 05-11-2021 AUDIT Hugo Julio Work Phone: [facility] 120 Work Phone: Start: 04-19-2021 AUDIT Hugo Julio Work Phone: [facility] 120 Work Phone: Start: 01-04-2021 End: 01-08-2021 Evaluation and management of inpatient VERN RUBIO Facility:[facility] Start: 01-04-2021 End: 01-08-2021 Evaluation and management of inpatient Damien Ocasio MD Work Phone: [id number] Comment on above: Delirium Procedures Date Procedure [...] 01-23-2024 Radiologic exam chest single view [place] Shadi simeons DO Work Phone: Start: 01-23-2024 Glucose quantitative [...] bacterial quanttative colony count urine Yasir Lopez SOFTWARE DEVELOPMENT COORDINATOR - GARMENT MENDER Work Phone: Start: 01-22-2024 Urinalysis complete panel - Urine Yasir Rosas Surjitebenezer SOFTWARE DEVELOPMENT COORDINATOR - GARMENT MENDER Work Phone: Start: 01-22-2024 Comprehensive metabolic panel Yasir sol SOFTWARE DEVELOPMENT COORDINATOR - GARMENT MENDER Work Phone: Start: 11-20-2023 Follow-up visit Follow-up [...] History of Shani-en-Y gastric bypass Luana Pardo SOFTWARE DEVELOPMENT COORDINATOR-GARMENT MENDER Work Phone: Hysterectomy Hugo Julio Work Phone: Operation on fracture Hugo Julio Work Phone: Urine culture Dr. Hugo Julio Work Phone: Plan of Treatment Date Care Activity Detail Author Start: 02-02-2034 DTaP/Tdap/Td Vaccines (5 - Td or Tdap) DTaP/Tdap/Td Vaccines (5 - Td or Tdap) [facility] Start: 02-02-2030 DTaP/Tdap/Td vaccine (4 - Td or Tdap) DTaP/Tdap/Td vaccine (4 - Td or Tdap) [facility] Start: 02-02-2030 DTaP/Tdap/Td Vaccines (4 - Td or Tdap) DTaP/Tdap/Td Vaccines (4 - Td or Tdap) [facility] Start: 02-02-2030 Urine microalbumin profile DTAP,TDAP,TD (4 - Td or Tdap) [facility] Start: 12-02-2028 Screening for malignant neoplasm of colon [facility] Start: 11-20-2024 End: 05-22-2025 25-hydroxyvitamin D3 [Mass/volume] in Serum or Plasma Vitamin D 25-Hydroxy,Total (for eval of Vitamin D levels) Lab Routine Vitamin D deficiency Intestinal malabsorption, unspecified type (HHS-HCC) Expected: 11/20/2024 (Approximate), Expires: 05/22/2025 [facility] Work Phone: Comment on above: Expected: 11/20/2024 (Approximate), Expi res: 05/22/2025 Start: 11-20-2024 End: 05-22-2025 CBC W Auto Differential panel - Blood CBC and Auto Differential Lab Routine Intestinal malabsorption, unspecified type (HHS-HCC) Expected: 11/20/2024 (Approximate), Expires: 05/22/2025 [facility] Service Area Work Phone: Comment on above: Expected: 11/20/2024 (Approximate), Expi res: 05/22/2025 Start: 11-20-2024 End: 05-22-2025 Cobalamin (Vitamin B12) [Mass/volume] in Serum or Plasma Vitamin B12 Lab Routine Intestinal malabsorption, unspecified type (HHS-HCC) Vitamin B12 deficiency Expected: 11/20/2024 (Approximate), Expires: 05/22/2025 [facility] Work Phone: Comment on above: Expected: 11/20/2024 (Approximate), Expi res: 05/22/2025 Start: 11-20-2024 End: 05-22-2025 Comprehensive metabolic 2000 panel - Serum or Plasma Comprehensive Metabolic Panel Lab Routine Intestinal malabsorption, unspecified type (HHS-HCC) Expected: 11/20/2024 (Approximate), Expires: 05/22/2025 [facility] Work Phone: Comment on above: Expected: 11/20/2024 (Approximate), Expi res: 05/22/2025 Start: 11-20-2024 End: 05-22-2025 Copper [Mass/volume] in Serum or Plasma Copper, Blood Lab Routine Intestinal malabsorption, unspecified type (HHS-HCC) Expected: 11/20/2024 (Approximate), Expires: 05/22/2025 [facility] Work Phone: Comment on above: Expected: 11/20/2024 (Approximate), Expi res: 05/22/2025 Start: 11-20-2024 End: 05-22-2025 Ferritin [Mass/volume] in Serum or Plasma Ferritin Lab Routine Intestinal malabsorption, unspecified type (HHS-HCC) Expected: 11/20/2024 (Approximate), Expires: 05/22/2025 [facility] Work Phone: Comment on above: Expected: 11/20/2024 (Approximate), Expi res: 05/22/2025 Start: 11-20-2024 End: 05-22-2025 Folate [Mass/volume] in Serum or Plasma Folate Lab Routine Intestinal malabsorption, unspecified type (HHS-HCC) Expected: 11/20/2024 (Approximate), Expires: 05/22/2025 [facility] Work Phone: Comment on above: Expected: 11/20/2024 (Approximate), Expi res: 05/22/2025 Start: 11-20-2024 End: 05-22-2025 Iron and Iron binding capacity panel - Serum or Plasma Iron and TIBC Lab Routine Intestinal malabsorption, unspecified type (HHS-HCC) Expected: 11/20/2024 (Approximate), Expires: 05/22/2025 [facility] Work Phone: Comment on above: Expected: 11/20/2024 (Approximate), Expi res: 05/22/2025 Start: 11-20-2024 End: 05-22-2025 Parathyrin.intact [Mass/volume] in Serum or Plasma Parathyroid Hormone, Intact Lab Routine Hyperparathyroidism (Multi) Intestinal malabsorption, unspecified type (HHS-HCC) Expected: 11/20/2024 (Approximate), Expires: 05/22/2025 [facility] Work Phone: Comment on above: Expected: 11/20/2024 (Approximate), Expi res: 05/22/2025 Start: 11-20-2024 End: 05-22-2025 Thiamine pyrophosphate [Moles/volume] in Blood Vitamin B1, Whole Blood Lab Routine Intestinal malabsorption, unspecified type (HHS-HCC) Expected: 11/20/2024 (Approximate), Expires: 05/22/2025 [facility] Work Phone: Comment on above: Expected: 11/20/2024 (Approximate), Expi res: 05/22/2025 Start: 11-20-2024 End: 05-22-2025 Zinc [Mass/volume] in Serum or Plasma Zinc, Serum or Plasma Lab Routine Intestinal malabsorption, unspecified type ([facility]) Expected: 11/20/2024 (Approximate), Expires: 05/22/2025 [facility] Work Phone: Comment on above: Expected: 11/20/2024 (Approximate), Expi res: 05/22/2025 Start: 11-16-2024 End: 11-16-2024 Patient encounter procedure 11/16/2024 11:00 AM EDT Office Visit [facility] Building [address] [place] [phone] Luana Pardo, SOFTWARE DEVELOPMENT COORDINATOR-GARMENT MENDER [address] [place], [place] [id number] [facility] Building Start: 06-07-2024 SIGMOIDOSCOPY SIGMOIDOSCOPY [facility] Start: 02-01-2024 COVID-19 Vaccine ( season) COVID-19 Vaccine ( season) [facility] Start: 02-01-2024 Influenza vaccination Influenza Vaccine (#1) [facility] Start: 01-29-2024 End: 02-24-2024 Basic metabolic 1998 panel - Serum or Plasma Basic Metabolic Panel w/ Mg Reflex Lab Routine Hyponatremia Expected: 01/29/2024 (Approximate), Expires: 02/24/2024 [facility] Work Phone: Comment on above: Expected: 01/29/2024 (Approximate), Expi res: 02/24/2024 Start: 12-03-2023 Colonoscopy COLONOSCOPY [facility] Start: 12-03-2023 COLORECTAL CANCER SCREENING COLORECTAL CANCER SCREENING [facility] Start: 11-20-2023 End: 11-20-2023 Patient encounter procedure 11/20/2023 11:00 AM EDT Office Visit [facility] Office Building [address] [place] [phone] Luana Pardo, SOFTWARE DEVELOPMENT COORDINATOR-GARMENT MENDER [address] [place] [address] [facility] Medical Office [facility] Start: 11-17-2023 End: 11-16-2024 Calprotectin [Mass/mass] in Stool Calprotectin, Fecal Lab Routine Bile salt-induced diarrhea (HHS-HCC) Irritable bowel syndrome with diarrhea Expected: 11/17/2023 (Approximate), Expires: 11/16/2024 [facility] Work Phone: Comment on above: Expected: 11/17/2023 (Approximate), Expi res: 11/16/2024 Start: 11-17-2023 End: 11-16-2024 Clostridioides difficile toxin A+B tcdA+tcdB genes [Presence] in Stool by MILKA with probe detection C. difficile, PCR Microbiology Routine Bile salt-induced diarrhea (HHS-HCC) Irritable bowel syndrome with diarrhea Expected: 11/17/2023 (Approximate), Expires: 11/16/2024 [facility] Work Phone: Comment on above: Expected: 11/17/2023 (Approximate), Expi res: 11/16/2024 Start: 11-17-2023 End: 11-17-2023 Patient encounter procedure 11/17/2023 2:00 PM EDT Office Visit [facility] [address] [place] [phone] Marilia Stubbs DO [address] [facility], [address] [place] [address] [facility] Start: 11-17-2023 End: 12-17-2023 Stool Pathogen Panel, PCR Stool Pathogen Panel, PCR Microbiology Routine Bile salt-induced diarrhea (HHS-HCC) Irritable bowel syndrome with diarrhea Campylobacter enteritis Expected: 11/17/2023 (Approximate), Expires: 12/17/2023 [facility] Service Area Work Phone: Comment on above: Expected: 11/17/2023 (Approximate), Expi res: 12/17/2023 Start: 11-08-2023 Depression Screening Depression Screening [facility] Start: 07-14-2023 COVID-19 Vaccine () COVID-19 Vaccine () [facility] Start: 06-02-2023 End: 08-02-2023 25-hydroxyvitamin D3 [Mass/volume] in Serum or Plasma VITAMIN D 25 HYDROXY Lab Routine Diarrhea due to malabsorption Expected: 06/02/2023 (Approximate), Expires: 08/02/2023 [facility] Work Phone: Comment on above: Expected: 06/02/2023 (Approximate), Expi res: 08/02/2023 Start: 06-02-2023 End: 08-02-2023 Alpha tocopherol [Mass/volume] in Serum or Plasma VITAMIN E/TOCOPHEROL Lab Routine Diarrhea due to malabsorption Expected: 06/02/2023 (Approximate), Expires: 08/02/2023 [facility] Work Phone: Comment on above: Expected: 06/02/2023 (Approximate), Expi res: 08/02/2023 Start: 06-02-2023 End: 08-02-2023 C reactive protein [Mass/volume] in Serum or Plasma C-REACTIVE PROTEIN (CRP) Lab Routine Diarrhea due to malabsorption Expected: 06/02/2023 (Approximate), Expires: 08/02/2023 [facility] Work Phone: Comment on above: Expected: 06/02/2023 (Approximate), Expi res: 08/02/2023 Start: 06-02-2023 End: 08-02-2023 CBC W Auto Differential panel - Blood CBC + DIFF Lab Routine Diarrhea due to malabsorption Expected: 06/02/2023 (Approximate), Expires: 08/02/2023 [facility] Work Phone: Comment on above: Expected: 06/02/2023 (Approximate), Expi res: 08/02/2023 Start: 06-02-2023 End: 08-02-2023 Cobalamin (Vitamin B12) [Mass/volume] in Serum or Plasma VITAMIN B12 BLOOD Lab Routine Diarrhea due to malabsorption Expected: 06/02/2023 (Approximate), Expires: 08/02/2023 [facility] Work Phone: Comment on above: Expected: 06/02/2023 (Approximate), Expi res: 08/02/2023 Start: 06-02-2023 End: 08-02-2023 Comprehensive metabolic 2000 panel - Serum or Plasma COMP METABOLIC PANEL Lab Routine Diarrhea due to malabsorption Expected: 06/02/2023 (Approximate), Expires: 08/02/2023 [facility] Work Phone: Comment on above: Expected: 06/02/2023 (Approximate), Expi res: 08/02/2023 Start: 06-02-2023 End: 08-02-2023 COPPER BLOOD COPPER BLOOD Lab Routine Diarrhea due to malabsorption Expected: 06/02/2023 (Approximate), Expires: 08/02/2023 [facility] Work Phone: Comment on above: Expected: 06/02/2023 (Approximate), Expi res: 08/02/2023 Start: 06-02-2023 End: 08-02-2023 Ferritin [Mass/volume] in Serum or Plasma FERRITIN BLD Lab Routine Diarrhea due to malabsorption Expected: 06/02/2023 (Approximate), Expires: 08/02/2023 [facility] Work Phone: Comment on above: Expected: 06/02/2023 (Approximate), Expi res: 08/02/2023 Start: 06-02-2023 End: 08-02-2023 Iron and Iron binding capacity panel - Serum or Plasma IRON + TIBC Lab Routine Diarrhea due to malabsorption Expected: 06/02/2023 (Approximate), Expires: 08/02/2023 [facility] Work Phone: Comment on above: Expected: 06/02/2023 (Approximate), Expi res: 08/02/2023 Start: 06-02-2023 End: 08-02-2023 Magnesium [Mass/volume] in Serum or Plasma MAGNESIUM BLD Lab Routine Diarrhea due to malabsorption Expected: 06/02/2023 (Approximate), Expires: 08/02/2023 [facility] Work Phone: Comment on above: Expected: 06/02/2023 (Approximate), Expi res: 08/02/2023 Start: 06-02-2023 End: 08-02-2023 Methylmalonate [Moles/volume] in Serum or Plasma METHYLMALONIC ACID Lab Routine Diarrhea due to malabsorption Expected: 06/02/2023 (Approximate), Expires: 08/02/2023 [facility] Work Phone: Comment on above: Expected: 06/02/2023 (Approximate), Expi res: 08/02/2023 Start: 06-02-2023 End: 08-02-2023 Phosphate [Mass/volume] in Serum or Plasma PHOSPHORUS INORGANIC Lab Routine Diarrhea due to malabsorption Expected: 06/02/2023 (Approximate), Expires: 08/02/2023 [facility] Work Phone: Comment on above: Expected: 06/02/2023 (Approximate), Expi res: 08/02/2023 Start: 06-02-2023 End: 08-02-2023 PT panel - Platelet poor plasma by Coagulation assay PROTHROMBIN TIME/PT Lab Routine Diarrhea due to malabsorption Expected: 06/02/2023 (Approximate), Expires: 08/02/2023 [facility] Work Phone: Comment on above: Expected: 06/02/2023 (Approximate), Expi res: 08/02/2023 Start: 06-02-2023 End: 08-02-2023 RBC FOLATE RBC FOLATE Lab Routine Diarrhea due to malabsorption Expected: 06/02/2023 (Approximate), Expires: 08/02/2023 [facility] Work Phone: Comment on above: Expected: 06/02/2023 (Approximate), Expi res: 08/02/2023 Start: 06-02-2023 End: 08-02-2023 Retinol [Mass/volume] in Serum or Plasma VITAMIN A/RETINOL Lab Routine Diarrhea due to malabsorption Expected: 06/02/2023 (Approximate), Expires: 08/02/2023 [facility] Work Phone: Comment on above: Expected: 06/02/2023 (Approximate), Expi res: 08/02/2023 Start: 06-02-2023 End: 08-02-2023 Selenium [Mass/volume] in Blood SELENIUM BLOOD Lab Routine Diarrhea due to malabsorption Expected: 06/02/2023 (Approximate), Expires: 08/02/2023 [facility] Work Phone: Comment on above: Expected: 06/02/2023 (Approximate), Expi res: 08/02/2023 Start: 06-02-2023 End: 08-02-2023 Zinc [Mass/volume] in Serum or Plasma ZINC BLD Lab Routine Diarrhea due to malabsorption Expected: 06/02/2023 (Approximate), Expires: 08/02/2023 [facility] Work Phone: Comment on above: Expected: 06/02/2023 (Approximate), Expi res: 08/02/2023 Start: 05-22-2023 Heavy metals measurement [facility] Start: 05-22-2023 Serum immunofixation [facility] Start: 05-22-2023 Urine protein electrophoresis [facility] Start: 05-15-2023 FUV, Provider: Marilia Stubbs, Status: Darius, Time: 2:00 PM FUV, Provider: Marilia Stubbs, Status: Darius, Time: 2:00 PM [facility] Work Phone: Start: 05-08-2023 COVID-19 Vaccine (4 - Pfizer series) COVID-19 Vaccine (4 - Pfizer series) [facility] Start: 01-31-2023 COVID-19 Vaccine (2022-24 season) COVID-19 Vaccine ( season) [facility] Start: 08-13-2022 Depression Screen Depression Screen [facility] Start: 07-14-2022 Creatinine measurement Creatinine monitoring [facility] Start: 07-14-2022 Potassium monitoring Potassium monitoring [facility] Start: 07-09-2022 Hemoglobin A1c measurement A1C test (Diabetic or Prediabetic) [facility] Start: 06-11-2022 FUV, Provider: Marilia Stubbs, Status: Pen, Time: 2:00 PM FUV, Provider: Marilia Stubbs, Status: Pen, Time: 2:00 PM -[facility] 120 Work Phone: Start: 06-02-2022 ADVANCE DIRECTIVE DISCUSSION ADVANCE DIRECTIVE DISCUSSION [facility] Start: 06-02-2022 DEPRESSION ASSESSMENT DEPRESSION ASSESSMENT [facility] Start: 05-07-2022 Procedure [facility] Work Phone: Start: 05-06-2022 FUV, Provider: Marilia Stubbs, Status: Pen, Time: 2:45 PM FUV, Provider: Marilia Stubbs, Status: Pen, Time: 2:45 [facility] 120 Work Phone: Start: 03-04-2022 FUV, Provider: Marilia Stubbs, Status: Pen, Time: 11:00 AM FUV, Provider: Marilia Stubbs, Status: Pen, Time: 11:00 AM -[facility] Work Phone: Start: 01-31-2022 Influenza vaccination INFLUENZA (#1) [facility] Start: 01-16-2022 Thiamine measurement [facility] Work Phone: Start: 01-05-2022 Potassium [Moles/volume] in Serum or Plasma POTASSIUM [facility] Start: 11-01-2021 COVID-19 VACCINE (5 - Booster for Pfizer series) COVID-19 VACCINE (5 - Booster for Pfizer series) [facility] Start: 10-11-2021 FUV, Provider: Marilia Stubbs, Status: Pen, Time: 11:15 AM FUV, Provider: Marilia Stubbs, Status: Pen, Time: 11:15 AM [facility] [address] Work Phone: Start: 10-06-2021 Hemoglobin A1c measurement Diabetes: Hemoglobin A1C [facility] Start: 09-03-2021 X-ray of lumbar spine, two or three views Lumbar Spine 2 or 3 Views [facility] Work Phone: Start: 09-03-2021 Anes integ musc & nrv head neck&posterior trunk ANESTH HEAD/NECK/PTRUNK [facility] Work Phone: Start: 09-03-2021 Injection epidural blood/clot patch INJECT EPIDURAL PATCH [facility] Work Phone: Start: 09-03-2021 Insj/rplcmt spi npgr dir/induxive coupling INSRT/REDO SPINE N GENERATOR [facility] Work Phone: Start: 09-03-2021 Prq impltj nstim electrode array epidural IMPLANT NEUROELECTRODES [facility] Work Phone: Start: 09-03-2021 Patient discharge [facility] Work Phone: Start: 07-26-2021 FUV, Provider: Marilia Stubbs, Status: Darius, Time: 3:00 PM FUV, Provider: Marilia Stubbs, Status: Darius, Time: 3:00 PM [facility] Work Phone: Start: 07-09-2021 Annual Wellness Visit (AWV) Annual Wellness Visit (AWV) [facility] Start: 06-12-2021 Patient encounter procedure RNVISIT, Provider: [facility], Status: Pen, Time: 9:00 AM [facility] [address] Work Phone: Start: 06-11-2021 Patient encounter procedure RNVISIT, Provider: [facility], Status: Pen, Time: 10:00 AM [facility] Work Phone: Start: 06-04-2021 FUV, Provider: Marilia Stubbs, Status: Pen, Time: 2:45 PM FUV, Provider: Marilia Stubbs, Status: Pen, Time: 2:45 PM [facility] [place] [address] Work Phone: Start: 06-02-2021 ADVANCE DIRECTIVE DISCUSSION ADVANCE DIRECTIVE DISCUSSION [facility] Start: 06-02-2021 DEPRESSION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 Parts of assessment/plan may have been copied from prior entry and amended as needed. It reflects full evaluation and pathophysiology of processes involved. documented in this encounter [facility] 01-24-2024 Note Hospitalist Discharg e Summary Madelyn [...] classified 09/24/2007 Psychosis (HCC) 01/04/2021 Secondary hyperparathyroidism ([facility]) 07/12/2021 Skin lesion 11/07/2022 Stage 2 chronic kidney disease 05/14/2017 Steatorrhea 11/07/2022 Thrombosed external hemorrhoids 11/07/2022 Type 2 diabetes mellitus without complication, without long-term current use of insulin ([facility]/HCC) (HCC) 07/12/2021 Urge incontinence 01/21/2020 Urinary [...] vision, or urinary symptoms. States seen a manager aerospace in [place] some time ago. Stopped haldol, started salt tablets. Na level improved. UC grew klebsiella, treated with abx. Continue salt tablets, fluid restriction 1500 ml. BMP next week. OP follow up with her nephrology at [place]. Updated . The patient is discharged in [...] MG tablet C (more content not included)... [facility] 01-24-2024 Hospital course Narrative Hospitalist Discharge Summary [...] complication, without long-term current use of insulin ([facility]/HCC) (HCC) 07/12/2021 Urge incontinence 01/21/2020 Urinary [...] vision, or urinary symptoms. States seen a manager aerospace in [place] some time ago. Stopped haldol, started salt tablets. Na level improved. UC grew klebsiella, treated with abx. Continue salt tablets, fluid restriction 1500 ml. BMP next week. OP follow up with her nephrology at [place]. Updated . The patient is discharged in [...] Your Medications These medications were sent to [facility]/pharmacy #[id number] - [place], [place] - [address] FROM [address] [address] Hours: 24-hours cefdinir 300 MG capsule sodium chloride 1 g tablet Recommended Follow-up: Hugo [address] [facility] [id number] Schedule an appointment as soon as possible for a visit post hospital follow up Complexity of Follow up: [] Moderate Complexity: follow up within 7-14 calendar days (97027) [x] Severe Complexity: follow up within 7 calendar days (79332) Follow up Testing, Pending results or Referrals [...] frame. Signed: Girma Roberts MD Division of Hospitalist Medicine [facility]patient Medical Services[facility] 01/24/2024 documented in this encounter [facility] 01-23-2024 Consult note Associated Order (s): IP [...] See my note 01/23/2024 for assessment, plan. [employer] Phone: 01-23-2024 Consult note Associated Order (s): [...] sodium as low as 107 while in [place]. She is presently experiencing no significant mental [...] complication, without long-term current use of insulin ([facility]/HCC) (HCC) 07/12/2021 Urge incontinence 01/21/2020 Urinary [...] days Referring physician: Shivam Fitzgerald DO Outpatient Pocket Setter: Tiara Buck DO Reason for Consult hyponatremia [...] 65 - can check upcr - on [id number] and Kerendia #Suspected UTI on urinalysis - [...] Na 133. Upon d/w primary nephro from [place] (Dr Tiara Buck), (11/23) Na 136. Home [...] recs once labs back Stacie Smith MD [facility] ([facility]) Office phone: [phone] Office fax: [phone] Pager: [phone] 01/22/24 Greater than 60 min of time spent on reviewing primary/bilingual sales consultant notes/outpt records/cumulative labs/previous hosp, FTF time, [...] bolus with her Rocephin. Patient has a manager aerospace in [place], Dr. Tiara Buck DO, however she has [...] complication, without long-term current use of insulin ([facility]) (HCC) 07/12/2021 Urge incontinence 01/21/2020 Urinary tract [...] Food Insecurity: Low Risk (07/19/2023) Received from [facility] Food Security Within the past 12 months, the food you bought just didn't last and you didn't have money to get more.: 3 Within the past 12 months, you worried that your food would run out before you got money to buy more.: 3 Transportation Needs: Not At Risk (07/19/2023) Received from [facility] Transportation Needs In the past 12 months, has lack of reliable transportation kept you from medical appointments, meetings, work or from getting things needed for daily living?: No Physical Activity: Inactive (07/19/2023) Received from [facility] Physical Activity On average, how many days per week do you engage in moderate to strenuous exercise (like a brisk walk)?: 0 days On average, how many minutes do you engage in exercise at this level?: 0 min Intimate Partner Violence: Not At Risk (07/19/2023) Received from [facility] Safety How often does anyone, including family and friends, threaten you with harm?: 1 How often does anyone, including family and friends, insult or talk down to you?: 1 How often does anyone, including family and friends, physically hurt you?: 1 How often does anyone, including family and friends, scream or curse at you?: 1 Housing Stability: Not At Risk (07/19/2023) Received from [facility] Housing What is your living situation today?: [...] orders to display documented in this encounter [facility] 01-23-2024 Hospital Discharge instructions Nicolasa Romero MD - 01/23/2024 5:49 PM EDT Patient may call Dr. Nicolasa Romero's office for virtual follow up through [employer] nicholas. [phone]. Sayda Jeffries LPN - 01/24/2024 11:50 AM [...] complication, without long-term current use of insulin ([facility]) (HCC) Isolation/Infection: No active isolations No active [...] (159 lb) Mental Status: {SAMANTHA Patient Mental Status:71884} IV Access: {SAMANTHA IV Access:03931} Nursing Mobility/ADLs: Walking {TAYLOR ADL:::Independent} Transfer {TAYLOR ADL:::Independent} Bathing {TAYLOR ADL:::Independent} Dressing {TAYLOR ADL:::Independent} Toileting {TAYLOR ADL:::Independent} Feeding {TAYLOR ADL:::Independent} [employer] {TAYLOR ADL:::Independent} Med Delivery {yes/no:02080} Wound Care Documentation and Therapy: Elimination: Continence: Bowel: {yes/no:99613} Bladder: {yes/no:20053} Urinary Catheter: {SAMANTHA Urinary Catheter:10809} Colostomy/Ileostomy/Ileal Conduit: {YES / NO:} Date of Last BM: No intake or output data in the 24 hours ending 01/24/24 1150 I/O last 3 completed shifts: In: 150 (2.1 mL/kg) [P.O.:150] Out: - (0 mL/kg) Weight: 72.1 kg Safety Concerns: {SAMANTHA Safety Concerns:04097} Impairments/Disabilities: {SAMANTHA Impairments/Disabilities:90721} Nutrition Therapy: Current Nutrition Therapy: {SAMANTHA Diet List:82777} Routes of Feeding: {routes of feedin} Liquids: {liquid consistency:83440} Daily Fluid Restriction: {daily fluid restriction:27202} Last Modified Barium Swallow with Video (Video Swallowing Test): {done not done:03206} Treatments at the Time of Hospital Discharge: Respiratory Treatments: Oxygen Therapy: {Therapy; copd oxygen:50018} Ventilator: {SAMANTHA Ventilator:72590} Rehab Therapies: {GEN THERAPY DISCIPLINE SCAL:0235373} Weight Bearing Status/Restrictions: {POD WEIGHT BEARIN} Other Medical Equipment (for information only, NOT a DME order): {Assistive Devices DME:30310} Other Treatments: Patient's personal belongings (please select all that are sent with patient): {SAMANTHA Patient Belongings:79142} RN SIGNATURE: {E-signature:83705} CASE MANAGEMENT/SOCIAL WORK SECTION Inpatient Status Date: Discharging to Facility/ Agency Name: Address: Phone: Fax: Dialysis Facility (if applicable) Name: Address: Dialysis Schedule: Phone: Fax: Power Shovel Operator Helper/Buffet Runner signature: {E-signature:35672} PHYSICIAN SECTION Name: Madelyn Love Prognosis: {Rehab Prognosis:73491} Condition at Discharge: {Patient Condition:42705} Rehab Potential (if transferring to Rehab): {Rehab Prognosis:08952} Recommended Labs or Other Treatments After Discharge: The individual is being admitted to a nursing facility directly from an [facility] or a unit of a [facility] that is not operated by or licensed by [facility] under section 5119.14 or 5160-3-15.1 5 The individual requires the level of services provided by a nursing facility for the condition for which he or she was treated in the hospital and, Physician Certification: I certify the above information and transfer of Madelyn Love is necessary for the continuing treatment of the diagnosis listed and that she requires {SAMANTHA Level of Care:28416} for {greater less than:67145} 30 days. Update Admission H&P: {SAMANTHA Changes in H&P:34695} PHYSICIAN SIGNATURE: {E-signature:24875} documented in this encounter [facility] 01-23-2024 Consult note Formatting of th is [...] sodium as low as 107 while in [place]. She is presently experiencing no significant mental [...] complication, without long-term current use of insulin ([facility]/HCC) (HCC) 07/12/2021 Urge incontinence 01/21/2020 Urinary [...] for follow up as outpatient if desired. [facility] 01-23-2024 Note Hospitalist Progress Note 01/23/2024 Subjective: [...] complication, without long-term current use of insulin ([facility]/HCC) (HCC) 07/12/2021 Urge incontinence 01/21/2020 Urinary [...] Kusar, DO, 0. (more content not included)... [facility] 01-23-2024 Note Formatting of this n ote might be different from the original. Care Managment Initial Assessment Date: 01/23/2024 Patient Name: Madelyn Love : 1945 Patient Information Source of Information: Patient Cognition/Language: WFL - Within Functional Limits Permission given to speak with patient account executive sales representative/caregiver as indicated: Yes Confirmation of Payer with patient/family: Yes Payer Name: Medicare [place]: No Confirmation of Primary Care Physician: Confirmed [...] independently pending therapy recommendations. Verenice Gu RN [facility] 01-23-2024 Note Formatting of this n ote might be different from the original. Care Managment Initial Assessment Date: 01/23/2024 Patient Name: Madelyn Love : 1945 Patient Information Source of Information: Patient Cognition/Language: WFL - Within Functional Limits Permission given to speak with patient account executive sales representative/caregiver as indicated: Yes Confirmation of Payer [...] Living Prescription Coverage: Yes Pharmacy Used: [facility] [place] Medication Management: Independent Transportation/Shopping: Independent Transportation Mode: [...] independently pending therapy recommendations. Verenice Gu RN T [facility] 01-23-2024 Note Nephrology Progress Note [...] Na 133. Upon d/w primary nephro from [place] (Dr Tiara Buck), (11/23) Na 136. - [...] 65 - can check upcr - on [id number] and Kerendia #Suspected UTI on urinalysis - [...] Na 133. Upon d/w primary nephro from [place] (Dr Tiara Buck), (11/23) Na 136. Home [...] to possibly dc haldol. Stacie Smith MD [facility] ([facility]) Office phone: [phone] Office fax: [phone] Pager: [phone] Roberts RN, ; greater than 30 min of time spent on reviewing primary/bilingual sales consultant notes/labs, FTF time, interpretation of results, [...] fall 07/11/2021 Hypoal (more content not included)... [facility] 01-22-2024 Plan of care note Problem: Pain [...] risk of patient condition declining or worsening [facility] 01-22-2024 Consult note Associated Order (s): IP CONSULT TO NEPHROLOGY Images from the original note were not included. Nephrology Consult Note Consult date: 01/22/24 2:13 PM Patient: Madelyn Love Room number: [id number] Date of Admit: 01/22/2024 LOS: 0 days Referring physician: Shivam Fitzgerald DO Outpatient Pocket Setter: Tiara Buck DO Reason for Consult hyponatremia [...] 65 - can check upcr - on [id number] and Kerendia #Suspected UTI on urinalysis - [...] Na 133. Upon d/w primary nephro from [place] (Dr Tiara Buck), (11/23) Na 136. Home [...] recs once labs back Stacie Smith MD [facility] ([facility]) Office phone: [phone] Office fax: [phone] Pager: [phone] 01/22/24 Greater than 60 min of time spent on reviewing primary/bilingual sales consultant notes/outpt records/cumulative labs/previous hosp, FTF time, [...] bolus with her Rocephin. Patient has a manager aerospace in [place], Dr. Tiara Buck DO, however she has [...] complication, without long-term current use of insulin ([facility]/HCC) (HCC) 07/12/2021 Urge incontinence 01/21/2020 Urinary [...] Food Insecurity: Low Risk (07/19/2023) Received from [facility] Food Security Within the past 12 months, the food you bought just didn't last and you didn't have money to get more.: 3 Within the past 12 months, you worried that your food would run out before you got money to buy more.: 3 Transportation Needs: Not At Risk (07/19/2023) Received from [facility] Transportation Needs In the past 12 months, has lack of reliable transportation kept you from medical appointments, meetings, work or from getting things needed for daily living?: No Physical Activity: Inactive (07/19/2023) Received from [facility] Physical Activity On average, how many days per week do you engage in moderate to strenuous exercise (like a brisk walk)?: 0 days On average, how many minutes do you engage in exercise at this level?: 0 min Intimate Partner Violence: Not At Risk (07/19/2023) Received from [facility] Safety How often does anyone, including family and friends, threaten you with harm?: 1 How often does anyone, including family and friends, insult or talk down to you?: 1 How often does anyone, including family and friends, physically hurt you?: 1 How often does anyone, including family and friends, scream or curse at you?: 1 Housing Stability: Not At Risk (07/19/2023) Received from [facility] Housing What is your living situation today?: [...] imaging as above. No orders to display [facility] 01-22-2024 Emergency department Note Medic at bedside to transport pt to 4N on air sampling and monitoring. Pt alert and stable, no signs of distress at this time Corinne Sarmiento RN 01/22/24 1332 [facility] 01-22-2024 Emergency department Note Medic at bedside to transport pt to 4N on air sampling and monitoring. Pt alert and stable, no signs of [...] for clarification.) Ja De La Cruz MD [facility] Ja De La Cruz MD 01/22/24 1135 documented in this encounter [facility] 01-22-2024 History and physical note Attending History [...] vision, or urinary symptoms. States seen a manager aerospace in [place] some time ago. Will admit for further [...] complication, without long-term current use of insulin ([facility]/HCC) (HCC) 07/12/2021 Urge incontinence 01/21/2020 Urinary [...] Food Insecurity: Low Risk (07/19/2023) Received from [facility] Food Security Within the past 12 months, the food you bought just didn't last and you didn't have money to get more.: 3 Within the past 12 months, you worried that your food would run out before you got money to buy more.: 3 Transportation Needs: Not At Risk (07/19/2023) Received from [facility] Transportation Needs In the past 12 months, has lack of reliable transportation kept you from medical appointments, meetings, work or from getting things needed for daily living?: No Physical Activity: Inactive (07/19/2023) Received from [facility] Physical Activity On average, how many days per week do you engage in moderate to strenuous exercise (like a brisk walk)?: 0 days On average, how many minutes do you engage in exercise at this level?: 0 min Stress: Not on file Social Connections: Not on file Intimate Partner Violence: Not At Risk (07/19/2023) Received from [facility] Safety How often does anyone, including family and friends, threaten you with harm?: 1 How often does anyone, including family and friends, insult or talk down to you?: 1 How often does anyone, including family and friends, physically hurt you?: 1 How often does anyone, including family and friends, scream or curse at you?: 1 Housing Stability: Not At Risk (07/19/2023) Received from [facility] Housing What is your living situation today?: [...] - DO NOT do CPR, intubation] [_] [DNR-FARM CONTRACTOR BUYER - Comfort care only] [_] DNR form [was/was not] signed Total time spent: 5 minutes were spent discussing the patient's resuscitation status, advance care planning, and end of life care, with patient and/or family/surrogate. Shivam Fitzgerald DO Division of Hospitalist Medicine [facility] Work Phone: 01-22-2024 Note Attending History an d [...] vision, or urinary symptoms. States seen a manager aerospace in [place] some time ago. Will admit for further [...] complication, without long-term current use of insulin ([facility]/HCC) (HCC) 07/12/2021 Urge incontinence 01/21/2020 Urinary [...] Food Insecurity: Low Risk (07/19/2023) Received from [facility] Food Security Within the past 12 months, the food you bought just didn't last and you didn't have money to get more.: 3 Within the past 12 months, you worried that your food would run out before you got money to buy more.: 3 Transportation Needs: Not At Risk (07/19/2023) Received from [facility] Transportation Needs In the past 12 months, has lack of reliable transportation kept you from medical appointments, meetings, work or from getting things needed for daily living?: No Physical Activity: Inactive (07/19/2023) Received from [facility] Physical Activity On average, how many days per week do you engage in moderate to strenuous exercise (like a brisk walk)?: 0 days On average, how many minutes do you engage in exercise at this level?: 0 min Stress: Not on file Social Connections: Not on file Intimate Partner Violence: Not At Risk (07/19/2023) Received from [facility] Safety How often does anyone, including family and friends, threaten you with harm?: 1 How often does anyone, including family and friends, insult or talk down to you?: 1 How often does anyone, including family and friends, physically hurt you?: 1 How often does anyone, including family and friends, scream or curse at you?: 1 Housing Stability: Not At Risk (07/19/2023) Received from [facility] Housing What is your living situation today?: I have a steady place to live Think about the place you live. Do you have problems with any of the following?: None of the above Family History: No family history on file. Medications Prior to Admission: No current facility- (more content not included)... [facility] 01-22-2024 History and physical note Attending History [...] vision, or urinary symptoms. States seen a manager aerospace in [place] some time ago. Will admit for further [...] complication, without long-term current use of insulin ([facility]) (HCC) 07/12/2021 Urge incontinence 01/21/2020 Urinary tract [...] Food Insecurity: Low Risk (07/19/2023) Received from [facility] Food Security Within the past 12 months, the food you bought just didn't last and you didn't have money to get more.: 3 Within the past 12 months, you worried that your food would run out before you got money to buy more.: 3 Transportation Needs: Not At Risk (07/19/2023) Received from [facility] Transportation Needs In the past 12 months, has lack of reliable transportation kept you from medical appointments, meetings, work or from getting things needed for daily living?: No Physical Activity: Inactive (07/19/2023) Received from [facility] Physical Activity On average, how many days per week do you engage in moderate to strenuous exercise (like a brisk walk)?: 0 days On average, how many minutes do you engage in exercise at this level?: 0 min Stress: Not on file Social Connections: Not on file Intimate Partner Violence: Not At Risk (07/19/2023) Received from [facility] Safety How often does anyone, including family and friends, threaten you with harm?: 1 How often does anyone, including family and friends, insult or talk down to you?: 1 How often does anyone, including family and friends, physically hurt you?: 1 How often does anyone, including family and friends, scream or curse at you?: 1 Housing Stability: Not At Risk (07/19/2023) Received from [facility] Housing What is your living situation today?: [...] - DO NOT do CPR, intubation] [_] [DNR-FARM CONTRACTOR BUYER - Comfort care only] [_] DNR form [was/was not] signed Total time spent: 5 minutes were spent discussing the patient's resuscitation status, advance care planning, and end of life care, with patient and/or family/surrogate. Shivam Fitzgerald DO Division of Hospitalist Medicine [facility] documented in this encounter [facility] 01-22-2024 Physician Emergency department Note Emergency Department Encounter [facility] EMERGENCY DEPT Patient: Madelyn Love : [...] Ja De La Cruz MD [employer] Ja De La Cruz MD 01/22/24 3727 [employer] Phone: 12-03-2023 Note ORIGINAL EXAMINATION: CT OF [...] 12/03/2023 11:52:39 AM Ordering Provider: KATHY MCCARTY [facility] 11-20-2023 History of Present illness Narrative Subjective [...] presents for Follow-up (12 YR FUV RYGB). HPI Madelyn is here for her 11 year follow [...] the spring prescribed by her PCP in [place]. Her PCP in [place] would not refill it due to her [...] might like to follow up with her Wallpaper Inspector And Shipper for prescribing so that he can also manage her A1C. We discussed ways for Madelyn to increase her salt intake without increasing her snacking. She will continue her current supplementation. She will follow up in 1 year with repeat labwork. Luana Pardo, SOTERO-GARMENT MENDER 11/21/23 9:17 AM documented in this encounter [facility] Work Phone: 11-17-2023 History of Present illness [...] rectal prolapse surgery performed while wintering in [facility]. Surgery was performed by colorectal surgeon did [...] attempt to get Xifaxan for her through [employer]. Change cholestyramine to 1/2 pack twice daily. Continue to hold MiraLAX. Marilia Stubbs DO 11/17/23 4:47 PM documented in this encounter [facility] Work Phone: 05-15-2023 History of Present illness Narrative Subjective Patient ID: Madelyn Love is a 77 y.o. female who presents for Irritable Bowel Syndrome (Patient is doing well having soft formed stools. ). HPI patient is seen today in follow-up. She is doing well functionally. Had fall while in [place] between and [place]. She states to having increased imbalance. Recent [...] 05/15/23 5:22 PM documented in this encounter [facility] Work Phone: 11-07-2022 History of Present illness Narrative Images from the original note were not included. [facility] [address] [facility] [address] Dept: [phone] Dept Loc: [phone] Visit type: [facility] Follow Up Visit Reason for Visit: Memory [...] and malabsorption, SIBO, who presents to the [facility] for a follow-up visit. The patient is [...] diarrhea off and on for several years. Fabi is helping. Reviewed progress notes completed by ROSALIA (MAYRA) and social work. Allergies Allergen Reactions Corticosteroids [...] classified 09/24/2007 Psychosis (HCC) 01/04/2021 Secondary hyperparathyroidism ([facility]) 07/12/2021 Skin lesion 11/07/2022 Stage 2 chronic kidney disease 05/14/2017 Steatorrhea 11/07/2022 Thrombosed external hemorrhoids 11/07/2022 Type 2 diabetes mellitus without complication, without long-term current use of insulin ([facility]/HCC) (HCC) 07/12/2021 Urge incontinence 01/21/2020 Urinary [...] KATI Marital status: Children: 2 daughters (in [place]) Living arrangement: with spouse, own home >>11/12/21 [...] meet friends for lunch, socially active in [employer], reads >>11/12/21 same >>11/07/22 goes to [place] for 5 months, swims and does water therapy there, walks there, out to eat Exercise: none Finances: not reviewed Healthcare Power of Caster Operator: Yes, spouse Financial Power of Caster Operator: Yes, spouse Living Will: Yes Guardian:No Code [...] is fine >>11/12/21 no issues, spouse has [employer] nicholas to track her >>11/07/22 still driving, [...] same >>11/07/22 same documented in this encounter [facility] [employer] 11-07-2022 Instructions Ca Naidu MD - 11/07/2022 2:45 PM EDT If you wish to come off the aricept, would recommend taking half a pill ( 5 mg) for 2 weeks to wean off the medication. Then may stop. Please call our office if you notice any trouble weaning off the medication. documented [facility] Note HNO ID: [id number] Author: Lynne Key MD Service: ? Author Type: Physician Type: Progress Notes Filed: 07/18/2022 1:18 PM Note Text: SMALL BOWEL DISEASES AND NUTRITION FOLLOW-UP VIDEO VISIT Date of direct communication: 07/18/2022 [x] Patient consented to video visit on FaceTime because she was unable to log onto the [employer] platform. Assessment IMPRESSION: Madelyn Love is a [...] if needed Lynne Key MD 07/18/2022 Staff Wood Pole Treater, [facility] Disease [facility] [place] PRIMARY PROBLEM: Chronic diarrhea, fecal incontinence after [...] Use in the nose q 24 HR. Gjrgmkbls-Wuzcazmksktjim-Swwp 3-2.5 % (7 gram) kit by RECTAL route. Ipratropium [place] (ATROVENT) 21 mcg (0.03 %) nasal spray [...] Take by manuel (more content not included)... [facility] 07-18-2022 History of Present illness Narrative Images [...] if needed Lynne Key MD 07/18/2022 Staff Wood Pole Treater, Digestive Disease & Surgery [place] PRIMARY PROBLEM: Chronic diarrhea, fecal incontinence after [...] Use in the nose q 24 HR. Tumxkceud-Aqmsfmdwwtaqrx-Orif 3-2.5 % (7 gram) kit by RECTAL route. Ipratropium [place] (ATROVENT) 21 mcg (0.03 %) nasal spray [...] co-ordination of care. documented in this encounter [facility] 06-07-2022 Note HNO ID: [id number] Author: Lynne Key MD Service: ? Author [...] sooner if needed Lynne Key MD 05/31/22 5799 Staff Wood Pole Treater [facility] [place] [facility] , REFERRING PROVIDER: Aakash Bryan [address] [place], [place] [id number] REASON FOR REFERRAL: S/p RYGB, intestinal malabsorption, [...] by mouth. diclo (more content not included)... [facility] 06-07-2022 Instructions Lynne Key MD - 06/07/2022 2:42 PM EST -Fax outside labs to: [phone] -Can try to increase dose of Citrucel [...] and milk thistle? documented in this encounter [facility] 06-07-2022 History of Present illness Narrative [...] sooner if needed Lynne Key MD 05/31/22 7007 Staff Wood Pole Treater [facility] [place] [facility] , REFERRING PROVIDER: Aakash Bryan [address] [facility] [address] REASON FOR REFERRAL: S/p RYGB, intestinal malabsorption, [...] Use in the nose q 24 HR. Awfamrbue-Vjaqtfvbwhpjjp-Pcsh 3-2.5 % (7 gram) kit by RECTAL route. Ipratropium [place] (ATROVENT) 21 mcg (0.03 %) nasal spray [...] heart failure, unspecified DR. Alfredito JOVEL IN [place] Cystocele, unspecified (CODE) Diverticulosis of colon (without [...] Lower thorax: No pleural effusion or consolidation Shot Bagger (topogram) images: No additional findings. IMPRESSION: 1. [...] records, and documentation. documented in this encounter [facility] 04-30-2022 Miscellaneous Notes Spoke with patient [...] [place] LPN documented in this encounter [facility] 04-29-2022 Note HNO ID: [id number] Author: Aakash Bryan MD Service: ? Author Type: Physician Type: Progress Notes Filed: 04/29/2022 4:09 PM Note Text: [facility] DEPARTMENT OF SURGERY NAME: Madelyn Love [facility] NO: [id number] DATE OF SERVICE: April 29, 2022 CHIEF [...] been followed by gastroenterology-Dr. Marilia Cheung at [facility]. She was last seen by him [...] for arthritis. She was apparently hospitalized at [facility] [place] [facility] for this. She has been given [...] heart failure, unspecified DR. Alfredito JOVEL [place] Cystocele, unspecified (CODE) Diverticulosis of colon (without [...] 06/10/2017 Dr. Morrison (more content not included)... [facility] 04-29-2022 History of Present illness Narrative Images from the original note were not included. [facility] DEPARTMENT [facility] SURGERY NAME: Madelyn Love [facility] NO: [id number] DATE OF SERVICE: April 29, 2022 CHIEF [...] been followed by gastroenterology-Dr. Marilia Cheung at [facility]. She was last seen by him [...] for arthritis. She was apparently hospitalized at [facility] [place] [facility] for this. She has been given [...] heart failure, unspecified DR. Alfredito JOVEL [place] Cystocele, unspecified (CODE) Diverticulosis of colon (without [...] SURGICAL HISTORY OF 12/02/2019 Dr. Sheehan - DOLORMLAURA PROCEDURE SIGMOIDOSCOPY 06/07/2019 normal FAMILY HISTORY Problem [...] (KERENDIA) 10 mg tablet Take by mouth. Hrysdnfwz-Xuceyfothqcgtf-Hief 3-2.5 % (7 gram) kit by RECTAL route. Ipratropium [place] (ATROVENT) 21 mcg (0.03 %) nasal spray [...] 26-Jun-2019 DO Start : 15-Jun-2019 Active fexofenadine (ZAINAB) 60 mg tablet Take by [...] TABS EVERY AFTER MEAL AND HS NEEDED oseawh-phojfnzo-gddjwxq (CREON 36) 36,000-114,000- 180,000 unit capsule Take [...] stools. She has h/o Lap RYGB in 2012. Shani limb was 100 cm, BP limb [...] to discuss reversal. -F/u with GI at [facility] to discuss malabsorption and SIBO -F/u [...] S/P laparoscopic RYGB (retrocolic, retrogastric Shani) in 2012 at OSH. Per op note, Shani limb [...] which included preparing to see the patient, pswr-nl-zxnk patient care, completing clinical documentation, obtaining and/or reviewing separately obtained history, and counseling and educating the patient/family/caregiver. Aakash Byran MD documented in this encounter [facility] 03-26-2022 Miscellaneous Notes Received referral request from Renzo Callejas MD. Patient accepted [id number] in person visit with and will bring OSH records to appt. Patient has EGD and Colonoscopy scheduled 05-02-22 documented in this encounter [facility] 03-18-2022 Miscellaneous Notes Patient accepted sooner procedure date 05/02/[address] [address] Bisi Callejas please change orders to [place] so I may add to schedule Thank you Aundrea Jimenez Poultry Process Worker Please send prep Lola to [facility] in [place] on [address] [facility] Patient is wanting Dr. Callejas to reach out to her to go over CT and Xray results she had done Please call the patient at the number listed on file to review results. Patient is also scheduled for her colonoscopy 10/21/2022 due to her being in [place] From 05/07/2022 till September 2022. Patient was wanting to try to get in before she leaves in May but there is no open availability in [place] for this patient to be done but Dr. Callejas. She wishes to try to get into [facility] before then. Patient is on waitlist for [facility] in [place] if any spots was to open up before she leaves by then Please advise Aundrea Jimenez Poultry Process Worker Madelyn and her stopped in. Madelyn had her CT scan of her abdomen and pelvis completed on 03/14/2022. 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 She did have an upper GI with small bowel and [facility] in 2019. She also had an EGD and colonoscopy in 2019 at [facility] by Dr. Wynn. They are leaving for [place] on 03/23/2022 and will not be home until 04/23/2022. Could you please review her CT scan and advise if there are any further tests they need to complete before the leave? Dasha Houston, RN documented in this encounter [facility] 03-12-2022 Note HNO ID: [id number] Author: RT Gilbert(R) Service: ? Author Type: Director Database Type: Progress Notes Filed: 03/12/2022 2:48 PM [...] DATE: March 12, 2022 TIME: 2:48 PM [facility] 03-12-2022 History of Present illness Narrative Radiology [...] TIME: 2:48 PM documented in this encounter [facility] 03-03-2022 Note HNO ID: [id number] Author: Renzo Callejas MD Service: ? Author [...] been followed by gastroenterology-Dr. Marilia Cheung at [facility]. She was last seen by him [...] for arthritis. She was apparently hospitalized at [facility] [place] [facility] for this. She has been given [...] heart failure, unspecified DR. Alfredito JOVEL [place] Cystocele, unspecified (CODE) Diverticulosis of colon (without [...] heart cath P (more content not included)... [facility] 02-28-2022 Note HNO ID: [id number] Author: RT Coco(R) Service: Radiology Author Type: Technologist Type: Progress [...] RT Coco(R) February 28, 2022 3:37 PM [facility] 02-28-2022 Note HNO ID: [id number] Author: Marcela Paul LPN Service: ? Author [...] last Mammogram screening? Unknown Last Colonoscopy: Unknown Marcelatanisha Paul STAFF PHARMACIST HOSPITAL [facility] 01-24-2022 Evaluation note Encounter Date Diagnosis Assessment [...] that operated on her or her GI. [facility]. Other 02-12-2022 NoteDischarge Summary Madelyn Love [...] her diagnosis/management during her stay here at [facility]: # Acute metabolic encephalopathy-began with confusion, auditory hallucinations, restlessness/figeting ~ 07/06/21 - had similar episode 12/2020, pt in [place], per Care Everywhere discharge summary on 01/08/21: [...] endocrine input ? 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 She was actually hospitalized at [facility] in [place] and is now recovered. She does have mild early dementia which is controlled with Aricept. She is accompanied by her today. She is currently being evaluated by Dr. Alexandre at [facility] for possible takedown of her bariatric [...] rectal bleeding and found to have internal hemorrhoids.[facility] [place] [address] Work Phone: 1(771) 143-659108-09-2021 Hospital Discharge instructions* Instructions* Simeon Grewal MD [...] Where can you learn more? Go to http://www.wexnermedical.[facility].edu/patiented. Enter Z511 in the search box to learn more about 'Learning About Delirium.' Interested in seeing a video go to https://[facility]/videolibrary to see all video content. Current as of: February 23, 2020 Content Version: 12.9 [employer]. Care instructions adapted under license by your healthcare professional. If you have questions about a medical condition or this instruction, always ask your healthcare professional. [employer] disclaims any warranty or liability for your use of this information. [facility] Miscellaneous Notes* Nursing Notes - Bella Guevara [...] on December 27. Paper worked faxed into [employer] system. The 5 scripts that were provided by patient listed below and faxed into [employer]: * Nursing Notes - Que Prescott RN - 01/05/2021 2:48 AM EDT On admission to R11E, from ED a dual RN initial assessment of skin condition was performed by Que Prescott RN and Ave Spencer RN. Patient was oriented to call light system. Skin Assessment: Skin within defined limits:Yes Kyree Score: 21 LDA Added:No Que Prescott RN documented in this [facility] Hospital course Narrative* Simeon Grewal MD - 01/08/2021 7:41 AM EDT Discharge Summary Name: Madelyn Love Age: 75 y.o. Birthday: 1945 Admit Date: 01/04/2021 1:10 PM Discharge Date: 01/08/2021 Discharge Service: [facility] Dis[facility] Unit: [facility] Total duration of encounter: 4 days Admission [...] during her recent hospital stay at [facility]. As you may know, Madelyn Love, is [...] [facility] ED because her daughters live in [place]. She has denied physical symptoms of any [...] Simeon Grewal MD PGY-3, Internal Medicine/Pediatrics [facility] FURTHER RECOMMENDATIONS: Follow up systolic murmur as [...] copies of results or reports please contact Interneer @ [phone] LABS AT TIME OF DISCHARGE: Lab Results [...] HOME AT DISCHARGE: Hugo Julio [address] / [facility] [address] No discharge procedures on file. Medications: Medication [...] daily. Commonly known as: COZAAR Pancreatic enzymes [id number] capsule Take by mouth 3 times daily with meals. Commonly known as: CREON traMADol 50 MG TABS Take 50 mg by mouth every 6 hours as needed. Commonly known as: ULTRAM Follow-up: Hugo Julio MD [address] [facility] [address] Go today Associated attestation - Marlon Sheets [...] results found for: SEDRATE [facility] Consult note* Chidi Burdick MD - 01/07/2021 [...] patient. Prakash Ceballos MD documented in this encounter[facility] History of Present illness Narrative* Cayla Sanchez, [...] a 1 story home with her in [place], [place]. Daughter lives in [place]. She has two steps to enter home [...] 13, 2001 and she was at the [facility]) Following Commands: Follows one step commands with [...] pt was convinced she was at the [facility] and almost walked into the wrong room [...] Assessment: Transfer Assessment: Sit to Stand Transfer Richmond Level: Sit->Stand: independent Stand to Sit Transfer Richmond Level: Stand->Sit: independent Functional Mobility: Gait Assessment [place] Level: Gait: supervision Assistive Device: Gait: hand held assist Skilled Intervention/Details - Gait: Pt performed community distance in hallway and needed increased cues and assist for navigating back to room;pt almost returned to wrong room and needed increased cues for room number Outcome Score(s): Mini-Cog Score: 3 CURRENT AM-PAC Daily Activity Inpatient Short Form Putting on/Taking Off Lower Body Clothin - A Little Assistance Bathin - A Little Assistance Toiletin - A Little Assistance Putting on/Taking Off Upper Body Clothin - No Assistance Groomin - No Assistance Eatin - No Assistance CURRENT AM-PAC Activity Raw Score: 21 CURRENT AM-PAC Activity Functional Limitation/Modifier: 32.79% Currently Impaired in Daily Activity- Interventions: Assessment & Plan: Patient was admitted [...] Daily Progress Note Patient: Madelyn Love, 1945, [id number] Physician: Simeon Grewal MD, PGY3, Gen Med [...] POA on admission. Disposition: Anticipate home with [facility] after work up of delirium, clinical improvement. [...] Acute cystitis without hematuria Vern Rubio MD Arnp-Clinical Medicine General Internal Medicine Pager #[phone] 01/07/21 9:11 PM * Pricilla Quezada MD, PhD - 01/06/2021 2:43 PM EDT Internal Medicine Daily Progress Note Patient: Madelyn Love, 1945, [id number] Physician: Pricilla Quezada MD, PhD, PGY1, Pager #[phone], Gen Med 8 Subjective/Interval History: No acute events overnight. Psychiatry evaluated yesterday. Continues to be activated and perseverate on faith and being brought home. She is cheerful [...] (36.6 C) O2 Device: room air (01/06/21 1432) Gen: NAD, well-appearing, sitting up in chair [...] POA on admission. Disposition: Anticipate home with [facility] after work up of delirium, clinical improvement. [...] Acute cystitis without hematuria Vern Rubio MD Arnp-Clinical Medicine General Internal Medicine Pager #[phone] 01/07/21 11:43 AM * Brain Burnham - 01/05/2021 4:38 PM EDT Acute Physical Therapy Evaluation Prior to Admission [facility] score(s): PRIOR LEVEL AM-PAC Mobility Raw Score: [...] a 1 story home with her in [place], [place]. Daughter lives in [place]. She has two steps to enter home [...] independent Transfer Assessment: Sit to Stand Transfer Richmond Level: Sit->Stand: independent Skilled Intervention/Details: Sit->Stand: The patient able to perform STS transferes without UE support during 5xSTS transfers Stand to Sit Transfer Richmond Level: Stand->Sit: independent Gait: Gait Assessment Richmond Level: Gait: supervision Assistive Device: Gait: gait belt Gait Distance (feet): 125 Gait Deviations Identified: decreased heel strike, decreased step length Gait Skilled Rationale: verbal, increase step length Skilled Intervention/Details - Gait: The patient able to ambulate 125 ft with supervision. She demonstrated decreased heel strike and step length, but overall able to demonstrate safety during gait. Stairs: Stairs Assessment Richmond Level: Stair Negotiation: supervision Assistive Device: Stair Negotiation: right rail (ascending) Number of stairs: 10 Gait Skilled Rationale: nonreciprocal pattern Skilled Intervention/Details - Stairs: The patient navigated up/down 10 stairs with supervision, demonstrating ability to navigate into and out of house. Outcome Score(s): 5X Sit to Stand Test recorded time: 13.27 seconds CURRENT [facility] Basic Mobility Inpatient Short Form Turning over in bed: 4 - No Assistance Sitting/standing from chair: 4 - No Assistance Moving from lying on back to sittin - No Assistance Moving to and from bed to chair: 3 - A Little Assistance Walk in hospital room: 3 - A Little Assistance Climbing 3-5 steps with a railin - A Little Assistance CURRENT [facility] Mobility Raw Score: 21 CURRENT [facility] Mobility Functional Limitation/Modifier: 28.97% Currently Impaired in [...] Advanced Directives on File: HealthCare Power of Caster Operator Legal Next of Kin Does the patient have a Guardian?: No Spouse: Yes Name and Contact information: KATI Love [phone] Adult Child(krystal), List All Adult Children: No [...] care physician? : Yes (Dr Hugo Julio [phone]) When was the patient's last PCP visit?: < 30 days Does the patient follow any specialists?: Yes Reviewed and updated Care Team?: Yes (Dr Juan Carlos Mares, [place] [facility]) Patient Care Team: Hugo Julio MD as PCP - General (Family Medicine) Carlos Granados MD (General Surgery) David Puga, (Endocrinology, Diabetes & Metabolism) Environment/Caregivers Is the patient from a facility or custodial?: No Patient lives with: Spouse or Partner [...] the patient on Anticoagulation? : No [id number] [place] [address] [phone] [facility] [phone] [facility] [address] [employer] Does the patient or account executive sales representative express financial concerns? : No Employed?: No Coping/Stress Concerns about patient s coping and stress?: No Concerns about patient s caregiver s coping and stress?: No Values and Beliefs Cultural or restorationism practices that may impact discharge planning and/or [...] and spouse at bedside, introduced role of caser in in discharge planning and care coordination. Reviewed past medical history and chief complaint. Initial assessment completed Case Management Plan No discharge needs anticipated at this time CM will continue to follow treatment team updates for any changes in discharge needs Erik mAes RN Clinical Power Shovel Operator Helper * Pricilla Quezada MD, PhD - 01/05/2021 1:55 PM EDT Internal Medicine Daily Progress Note Patient: Madelyn Love, 1945, [id number] Physician: Pricilla Quezada MD, PhD, PGY1, Pager #[phone], Gen Med 8 Subjective/Interval History: No acute [...] POA on admission. Disposition: Anticipate home with [facility] after work up of delirium, clinical improvement. [...] Acute cystitis without hematuria Vern Rubio MD Arnp-Clinical Medicine General Internal Medicine Pager #[phone] 01/07/21 11:32 AM [facility] in [facility] History and physical note* Simeon Grewal MD - 01/04/2021 4:45 PM EDT Internal Medicine Admission History & Physical Patient: Madelyn Love, 1945, [id number] Physician: Simeon Grewal MD, PGY3, GM8 service [...] [facility] ED because her daughters live in [place] and her wanted her to be medically [...] Dose Informant Patient Reported? Taking? Pancreatic enzymes [id number] units Cap DR Particles capsule Yes Yes [...] Essential hypertension, benign Osteoarthritis Vern Rubio MD Arnp-Clinical Medicine General Internal Medicine Pager #[phone] 01/05/21 3:22 PM [facility] Emergency department Note* Arleth Us RN - 01/04/2021 3:53 PM EDT Patient returned to ER with RN in wheelchair. Patient offered blanket and up in chair in room, to bedside. GCS 15 and denies any current needs. * Arleth Us RN - 01/04/2021 3:09 PM EDT Patient up to restroom with stand by assist, and RN transported patient to [facility] in wheelchair * Arleth Us RN - [...] waning symptoms. Her took her to a [place] emergency department for evaluation of the symptoms, [...] 100 mg by mouth daily. 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 Attempts were made at proofreading, [...] [facility], MD there revoked it due to thinking it was more medical. Patient's stated that she is not acting like herself. Yesterday she was answering as other people, they found her in a random hospital room. Patient not able to finish task, patient forgetting appointment. She stated that she feels like she has to think about every simple task. [facility] NoteAcute Coronary Syndrome (ACS): Initial Evaluation and Management: [email or web address]/sites/ebm/Documents/Guidelines/Acute%20Coronary%20Sy ndrome.pdf#search=troponin [facility]12-[facility] History of Present illness Narrative* Ligia [...] Wynn in November of this year at [facility] she underwent EGD at that time was [...] colonoscopy performed by Dr. Dolores Doll at [facility] in [place] she noted there is a small hiatal hernia that her gastric pouch and E ferret limb were healthy biopsies were taken. Colonoscopy was normal although prep was fair to the cecum and random biopsies were taken throughout the colon it was noted that her rectal tone was poor and she had some internal hemorrhoids. * Patient is recently seen Dr. Nam Neal at [facility] for consideration of reversal gastricbypass he is referred her onto Dr. Micah Tinoco for comprehensive assessment and treatment prior toany reversal surgery. [facility] [place] [address] Work Phone: [phone] History of Present illness Narrative* Ligia is [...] while hospitalized at psychiatric facility down to [place]. She has been approximately 4 weeks down [...] of metronidazole for small intestinal bacterial overgrowth. [facility] [place] [address] Work Phone: Evaluation + Plan note No data available for this section [facility] Evaluation note* Diagnosis Onset Date Resolution Status Mild cognitive impairment ac [place] Abnormal ultrasound of breast acute [facility] Work Phone: Evaluation note* Diagnosis Acute cystitis without hematuria Acute cystitis Delirium Other alteration of consciousness Essential hypertension, benign Primary osteoarthritis involving multiple joints Psychosis Unspecified psychosis Osteoarthritis Osteoarthrosis, unspecified whether generalized or localized, unspecified site Allergic rhinitis Allergic rhinitis, cause unspecified [facility] Diagnosis Onset Date Resolution Status Mild cognitive impairment ch ronic Valvular heart disease acute Essential hypertension chron ic Lower extremity edema [facility] Work Phone: Evaluation note* Diagnosis Onset Date Resolution Status Mild cognitive impairment ch ronic Essential hypertension chron ic [facility] Work Phone: Evaluation note* Diagnosis Onset Date Resolution Status Essential hypertension chron ic Lower extremity edema chroni c Dementia chronic Fatigue chronic Iron deficiency anemia [facility] Work Phone: Evaluation noteNo [facility] Other Evaluation note* Diagnosis Abdominal bloating with cramps H/O gastric bypass Bariatric surgery status [facility] Diagnosis Onset Date Resolution Status Dementia chronic Fatigue chronic Iron deficiency anemia [facility] Work Phone: Evaluation note* Diagnosis S/P gastric bypass- Primary Bariatric surgery status Diarrhea, unspecified type Abdominal bloating with cramps [facility] Diagnosis Onset Date Resolution Status Essential hypertension chron ic Left carotid bruit acute Dementia chronic [facility] Work Phone: Evaluation note* Diagnosis Intestinal malabsorption, unspecified type- Primary Chronic diarrhea Diarrhea documented in this encounter [facility] note* Diagnosis Diarrhea due to malabsorption- Primary Personal history of other diseases of digestive system documented in this encounter [facility] [place] [facility]* Diagnosis History of delirium- Primary [facility] 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 Irritable bowel syndrome Campylobacter enteritis Intestinal infection due to campylobacter documented in this encounter [facility] Work Phone: Evaluation note* Diagnosis Hyponatremia- Primary Hyposmolality and/or hyponatremia Hyponatremia Hyposmolality and/or hyponatremia Urinary tract infection in female [facility] this encounter [facility] [place]* Diagnosis Contusion of chest wall, unspecified laterality, initial encounter- Primary Contusion of right elbow, initial encounter Skin tear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
[2025-05-25] MEDS: Lactated Ringers 1,000 ML 15 ML IV (10:58)
--- NOTE | 2025-05-25 11:06 | PCM.PRE.AN2 ---
ASA Classification* ASA Classification ASA Classification: 3 Assessment & Plan Anesthesia* Anesthesia Assessment Anesthesia Assessment: Discussed sedation and/or anesthesia options, risks, benefits, and alternatives with patient/parents/legal guardian/POA. Questions invited. The patient/parents/legal guardian/POA seems to understand and agrees to proceed with anesthesia plan. Reviewed the physical assessment, medical history, allergy history and patient home medications list prior to surgery/procedure/anesthetic and documented any changes. Performed airway and anesthesia risk assessments. Anesthesia Type Anesthesia Type: MAC Anesthesia Focused Assessment* Temperature: 98.0 F Pulse Rate: 74 Blood Pressure: 156/70 Respiratory Rate: 18 Pulse Ox: 100 Airway Assessment Mouth opens: >3 cm Mallampati Score: II Labs Anesthesia Preop lab: CBC WBC, (4.4-11.0) 7.9 K/mm3 05/02/25, 12:46 RBC, (4.2-5.4) 3.47 M/mm3 L 05/02/25, 12:46 Hgb, (12.0-15.0) 11.3 g/dL L 05/02/25, 12:46 Hct, (37-47) 35.7 % L 05/02/25, 12:46 Plt Count, (150-450) 230 K/mm3 05/02/25, 12:46 CHEMISTRY Potassium, (3.3-5.1) 4.6 mmol/L 11/10/24, 09:18 Sodium, (133-145) 139 mmol/L 11/10/24, 09:18 Magnesium, (1.6-2.6) 2.4 mg/dL 04/09/24, 12:49 Phosphorus, (2.7-4.5) 4.3 mg/dL 11/10/24, 09:18 BUN, (4-19) 36 mg/dL H 11/10/24, 09:18 Creatinine, (0.70-1.20) 0.82 mg/dL 11/10/24, 09:18 Glucose, (70-99) 96 mg/dL 11/10/24, 09:18 POC Glucose, (74-106) 100 mg/dL 10/14/24, 06:29 TSH, (0.358-3.74) 1.53 uIU/mL 01/01/24, 09:07 COAG PT, (11.7-14.9) 12.3 SECONDS 07/18/20, 11:14 Pre-Assessment Diagnosis/Proposed Procedure Planned Operative Procedure(s): COLONOSCOPY Anesthesia History 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 When Was Last Pacemaker Check QUESTION #4 FULL TEXT: You/Your Family Experience fever (hyperthermia) with Anesthesia Last Oral Intake Last Oral intake: Last Oral Intake NPO since 09:00 05/25/25 10:47 Meds taken in AM with sips of Yes 05/25/25 10:47 water? Meds patient instructed to take am of surgery PONV PONV - electrical equipment technician: PONV - electrical equipment technician Female Yes 05/20/25 13:46 HX of Motion Sickness No 05/20/25 13:46 HX of N/V After Surgery No 05/20/25 13:46 Non-Smoker Yes 05/20/25 13:46 Duration of Surgery greater No 05/20/25 13:46 than 60 minutes Number of Risk Factors 2 05/20/25 13:46 PONV Score Moderate Risk 05/20/25 13:46 Height & Weight Height & Weight: Anesthesia: Height & Weight Height 4 ft 8 in 05/25/25 10:47 Weight: 61 kg 05/25/25 10:47 Body Mass Index (BMI) 30.1 05/25/25 10:47 Respiratory Assessment Respiratory Assessment - electrical equipment technician: Respiratory Tract Infection Hx - electrical equipment technician Hx Respiratory Tract Infection Yes: DX PNEUMONIA 05/07/25 PT 05/20/25 13:46 STILL ON ANTIBIOTICS STOP Sleep Apnea STOP Sleep Apnea - electrical equipment technician: STOP Sleep Apnea - electrical equipment technician Hx Hypertension Yes: CONTROLLED ON MED 05/20/25 13:46 Hx Sleep Apnea No 05/20/25 13:46 CPAP Yes: not used after gastric 05/20/25 13:46 bypass 2013 BIPAP No 05/20/25 13:46 Do you snore loudly (louder No 05/20/25 13:46 than talking or can be heard Do you often feel tired/ No 05/20/25 13:46 fatigued/ sleepy during daytime? Has anyone observed you stop No 05/20/25 13:46 breathing during sleep? STOP Results Negative 05/20/25 13:46 QUESTION #5 FULL TEXT : Do you snore loudly (louder than talking or can be heard through closed doors)? Tobacco Use History Tobacco Use History - electrical equipment technician: Tobacco Use History - electrical equipment technician Tobacco Use Smoking Status Never smoker 05/20/25 13:46 Hx Tobacco Use No 05/20/25 13:46 Years Smoking Packs Smoked per Day Smoking Cessation Date was within the last 15 years Hx Smoking Cessation Date Hx Smoking Cessation Counseling Hematologic Medial History Hematologic Hx - electrical equipment technician: Hematologic Medical Hx - car varnisher Hx of Blood Transfusion No 05/20/25 13:46 Hx of Transfusion in last 3 No 05/20/25 13:46 Months Date of Last Transfusion (if within last 3 months) Ever experience any problems No 05/20/25 13:46 with transfusion(s)? Specify any problems Hx of Preganancy in last 3 No 05/20/25 13:46 Months Nurse Filling Out Transfusion VCHRISTIN 05/20/25 13:46 & Questions: Date: 05/20/25 05/20/25 13:46 Time: 13:48 05/20/25 13:46 Patient unable to answer at this time (ie. confused, unrespo /Reproduction History /Reproductive History - electrical equipment technician: /Reproductive Hx- electrical equipment technician Hx Now No 05/20/25 13:46 Gestational Age (in weeks): EDC: Hx Hx Para Hx Section SAB No 05/20/25 13:46 Does the father of the baby or his family experience fever w Father of the baby Malignant Hypertension history comment Active Medications Active Medications: Current Medications Generic Name Dose Route Start Last Admin Trade Name Freq PRN Reason Stop Dose Admin Lactated Ringer's 1,000 mls @ 15 mls/hr 05/25/25 10:30 05/25/25 10:58 IV 15 mls/hr .Q48H KARL Administration Dextrose/Lactated Ringer's 1,000 mls @ 15 mls/hr 05/25/25 11:05 IV .Q48H KARL PFSH Medical History Pneumonia Recurrent UTI (urinary tract infection) Vaginal atrophy Vaginal vault prolapse after hysterectomy Frequency of urination Cystocele, midline Nocturia Overactive bladder Presence of upper and lower permanent dental bridges Wears hearing aid Cancer Bruising History of renal disease Bladder disease Pulmonary embolism Gastric reflux History of echocardiogram Cardiology follow-up encounter Urge incontinence of urine Candidiasis of female genitalia Peritoneal free air Breast mass, right Nonrheumatic aortic (valve) stenosis Lower extremity edema Essential hypertension Wears glasses Post-menopausal Abrasion Walker as ambulation aid Easy bruising Back pain History of IBS Non-smoker History of pain when walking History of edema Mild cognitive impairment Low sodium levels Steroid-induced psychosis Cystocele Heel spur Vitamin deficiency Skin cancer GERD (gastroesophageal reflux disease) Osteoporosis Osteoarthritis Kidney stones Kidney disease IBS (irritable bowel syndrome) Gout Gallstones Breast lump Bone fracture UTI (urinary tract infection) Abnormal ultrasound of breast Skin lesion Constipation Diarrhea Arthritis History of back problems Diabetes History of change in bowel patterns Hiatal hernia Home Medications ?Medication ?Instructions ?Recorded ?Last Taken ?Type lactobacillus combination no.8 3 3,000 mmu cells PO DAILY 11/24/18 05/23/25 History billion cell capsule (Adult Probiotic) gabapentin 300 mg capsule 300 mg PO TID 04/27/24 05/24/25 History melatonin 3 mg capsule 3 mg PO BID 05/19/24 10/13/24 History carvedilol 25 mg tablet 6.25 mg PO BID 07/01/24 05/25/25 History apixaban 5 mg tablet (Eliquis) 5 mg PO BID 10/12/24 05/22/25 History acetaminophen 500 mg capsule 500 mg PO Q4H PRN pain 10/21/24 05/23/25 History calcium 250 mg-magnesium 40 mg-D3 1 tab PO TID 10/21/24 05/23/25 History 125 unit-zinc 3.89bj-vsp-njmy tablet (Calcium Citrate Plus) carbamazepine 100 mg 100 mg PO BID 10/21/24 Unknown History capsule,extended release [id number] (Carbatrol) cholestyramine 4 gram oral powder 8 g PO QDAY 10/21/24 Unknown History for suspension in a packet finerenone 10 mg tablet (Kerendia) 10 mg PO QDAY 10/21/24 05/23/25 History vvizyejd-gmwbwbfj-dpkb 45 mg-folic 1 cap PO .QD 10/21/24 Unknown History acid 800 mcg-vit K 120 mcg capsule (Bariatric Multivitamins) rsgyva-ggiyklxr-yxdatzp (pork) 2 cap PO TIDCM 02/21/25 05/23/25 History 3,000-10,000-14k unit capsule,del rel (Zenpep) mirabegron 50 mg tablet,extended See Rx Instructions PO QDAY #180 03/18/25 05/23/25 Rx release 24 hr (Myrbetriq) tabs denosumab 60 mg/mL subcutaneous 60 mg subcut [id number] 04/25/25 Unknown History syringe (Prolia) pantoprazole 40 mg tablet,delayed 40 mg PO BID 04/25/25 05/23/25 History release semaglutide 0.25 mg or 0.5 mg (2 0.25 mg subcut QWEEK 04/25/25 05/16/25 History mg/3 mL) subcutaneous pen injector (Ozempic) spironolactone 25 mg tablet 25 mg PO QDAY 04/25/25 Unknown History tolterodine 2 mg capsule,extended 2 mg PO Q24H 04/25/25 05/23/25 History release 24 hr furosemide 20 mg tablet (Lasix) 40 mg PO DAILY 05/03/25 05/23/25 History losartan 100 mg tablet 100 mg PO DAILY 05/03/25 05/23/25 History calcitriol 0.25 mcg capsule 0.25 mcg PO DAILY 05/20/25 05/23/25 History calcium citrate 200 mg PO DAILY 05/20/25 Unknown History cephalexin 250 mg capsule 250 mg PO QHS 05/20/25 Unknown History methenamine hippurate 1 gram tablet 1 g PO BID 05/20/25 05/23/25 History oxycodone-acetaminophen 7.5 mg-325 1 tab PO TID PRN PRN pain 05/20/25 05/23/25 History mg tablet potassium citrate 10 mEq (1,080 10 meq PO DAILY 05/20/25 05/23/25 History mg) tablet,extended release Allergy/AdvReac Type Severity Reaction Status Date / Time Corticosteroids AdvReac Severe Other Verified 05/25/25 10:42 (Glucocorticoids) NSAIDS (Non-Steroidal AdvReac Severe Other Verified 05/25/25 10:42 Anti-Inflamma Family History Grandfather Arthritis Colon cancer Liver disease Grandmother Arthritis Hypertension Anemia Mother Arthritis Osteoporosis Father Hypertension Arthritis Liver disease Sister Arthritis Surgical History Hx of colonoscopy S/P insertion of spinal cord stimulator History of left heart catheterization History of open reduction and internal fixation (ORIF) procedure History of cardiac catheterization (2009) Hx of spinal fusion Hx of surgical procedure Hx of surgical procedure Hx laparoscopic cholecystectomy Hx of hysterectomy Hx of colonoscopy History of bursectomy H/O laminectomy Hx of cataract surgery H/O gastric bypass S/P vaginopexy History of repair of rectocele history excision melanoma forehead History of bilateral knee replacement Social History Smoking Status: Never smoker alcohol intake: never substance use type: does not use caffeine: No what type of physical activity do you participate in: other details: PT for strength & balance corinne/muslim: Judaism seatbelt use: always Review of Systems (Anesthesia) ROS Narrative System reviewed and no additional complaints, except as documented.
[2025-05-25] MEDS: Lidocaine 1% (5 ml sdv) 5 ML Vial 3 ML IV (12:15)
--- NOTE | 2025-05-25 13:00 | OP.COLON_ITS ---
Patient Name: Shirley Love Procedure Date: 05/25/2025 8:03 AM Date of : 1945 Age: 79 Procedure: Colonoscopy Indications: Chronic diarrhea Providers: Herman cOhoa DO Referring MD: Hugo Julio Medicines: Monitored Anesthesia Care Patient Profile: This is a 79 year old female. Refer to note in patient chart for documentation of history and physical. Last Colonoscopy: several years ago. Complications: No immediate complications. Procedure: Pre-Anesthesia Assessment: - Prior to the procedure, a History and Physical was performed, and patient medications and allergies were reviewed. The patient is competent. The risks and benefits of the procedure and the sedation options and risks were discussed with the patient. All questions were answered and informed consent was obtained. Patient identification and proposed procedure were verified by the physician in the pre-procedure area. Mental Status Examination: alert and oriented. Airway Examination: normal oropharyngeal airway and neck mobility. Respiratory Examination: clear to auscultation. CV Examination: normal. Prophylactic Antibiotics: The patient does not require prophylactic antibiotics. Prior Anticoagulants: The patient has taken no anticoagulant or antiplatelet agents except for NSAID medication. ASA Grade Assessment: II - A patient with mild systemic disease. After reviewing the risks and benefits, the patient was deemed in satisfactory condition to undergo the procedure. The anesthesia plan was to use monitored anesthesia care (MAC). Immediately prior to administration of medications, the patient was re-assessed for adequacy to receive sedatives. The heart rate, respiratory rate, oxygen saturations, blood pressure, adequacy of pulmonary ventilation, and response to care were monitored throughout the procedure. The physical status of the patient was re-assessed after the procedure. After I obtained informed consent, the scope was passed under direct vision. Throughout the procedure, the patient's blood pressure, pulse, and oxygen saturations were monitored continuously. The colonoscope was introduced through the anus and advanced to the terminal ileum. The colonoscopy was performed without difficulty. The patient tolerated the procedure well. The quality of the bowel preparation was adequate. The terminal ileum, ileocecal valve, appendiceal orifice, and rectum were photographed. Scope In: 12:23:04 PM Scope Withdrawal Time 0 hours 22 minutes 35 seconds Scope Out: 12:52:06 PM Total Procedure Duration Time 0 hours 29 minutes 2 seconds Findings: The perianal and digital rectal examinations were normal. An area of mildly congested mucosa was found in the entire colon. Biopsies were taken with a cold forceps for histology. Verification of patient identification for the specimen was done. Estimated blood loss was minimal. Multiple small-mouthed diverticula were found in the recto-sigmoid colon and sigmoid colon. A 4 mm polyp was found in the transverse colon. The polyp was sessile. The polyp was removed with a jumbo cold forceps. Resection and retrieval were complete. Verification of patient identification for the specimen was done. Estimated blood loss was minimal. The terminal ileum appeared normal. Biopsies were taken with a cold forceps for histology. Verification of patient identification for the specimen was done. Estimated blood loss was minimal. Retroflexion in the rectum was not performed due to anatomy. Impression: - Congested mucosa in the entire examined colon. Biopsied. - Diverticulosis in the recto-sigmoid colon and in the sigmoid colon. - One 4 mm polyp in the transverse colon, removed with a jumbo cold forceps. Resected and retrieved. - The examined portion of the ileum was normal. Biopsied. Recommendation: - Discharge patient to home. - Resume previous diet. - Continue present medications. - Await pathology results. - Repeat colonoscopy in 1 year to evaluate the response to therapy. Procedure Code(s): --- Professional --- 90906, Colonoscopy, flexible; with biopsy, single or multiple CPT copyright 2021 [employer]. All rights reserved. The codes documented in this report are preliminary and upon manager of broadcast content review may be revised to meet current compliance requirements. Herman Ochoa DO 05/25/2025 12:59:24 PM This report has been signed electronically. Number of Addenda: 0 Note Initiated On: 05/25/2025 8:03 AM
--- NOTE | 2025-05-25 13:00 | OP.PROVAT_ITS ---
05/25/2025 Hugo Julio [address] [place] [address] Re : Colonoscopy procedure for Shirley Kate Dear Dr. Julio This procedure was performed on Sunday, May 25, 2025. My impressions and recommendations are as follows: Impressions : - Congested mucosa in the entire examined colon. Biopsied. - Diverticulosis in the recto-sigmoid colon and in the sigmoid colon. - One 4 mm polyp in the transverse colon, removed with a jumbo cold forceps. Resected and retrieved. - The examined portion of the ileum was normal. Biopsied. Recommendations : - Discharge patient to home. - Resume previous diet. - Continue present medications. - Await pathology results. - Repeat colonoscopy in 1 year to evaluate the response to therapy. My findings are described in the full procedure note, which is enclosed. If I can be of further assistance, please feel free to contact me at . Sincerely, Herman Ochoa, 05/25/2025 12:59:24 PM This report has been signed electronically.
--- NOTE | 2025-05-25 13:01 | PCM.POST.ANE ---
Anesthesia: Postop Eval I Current Vital Signs Temperature: 98.5 F Pulse Rate: 75 Blood Pressure: 94/50 Respiratory Rate: 16 Pulse Ox: 100 Oxygen Delivery Method: Room Air Assessment Airway patent: Yes Spontaneous unlabored respirations: Yes Mental status: Awake and Calm nausea: No Vomiting: No Anesthesia Complication: No Fluid Hydration Crystalloid volume administer (ml): 300 Total IV fluid infused: 300 Progress Note Anesthesia document: Postop Eval 1 completed: Yes
--- NOTE | 2025-05-25 13:29 | POSTOPAN2_ITS ---
Anesthesia Postop Eval I Sum Postop Eval Completion status Anesthesia document: Postop Eval 1 completed: Yes Anesthesia Postop Eval I Summary Anesthesia Postop Eval I Summary: Anesthesia Postop Eval I: Assessment Summary Airway patent Yes 05/25/25 13:01 APPLICATION DEVELOPMENT LIAISON.[email or web address] Spontaneous unlabored Yes 05/25/25 13:01 APPLICATION DEVELOPMENT LIAISON.GDOTT respirations Mental status Awake,Calm 05/25/25 13:01 APPLICATION DEVELOPMENT LIAISON.GDOTT nausea No 05/25/25 13:01 APPLICATION DEVELOPMENT LIAISON.GDOTT Vomiting No 05/25/25 13:01 APPLICATION DEVELOPMENT LIAISON.[email or web address] Anesthesia Postop Eval I: Fluid Summary Crystalloid volume administer 300 05/25/25 13:01 APPLICATION DEVELOPMENT LIAISON.GDOTT (ml) Colloids volume administered ( ml) Blood Product volume administered (ml) Total IV fluid infused 300 05/25/25 13:01 APPLICATION DEVELOPMENT LIAISON.GDOTT Anesthesia Postop Eval I: Summary Notes Anesthesia Complication No 05/25/25 13:01 APPLICATION DEVELOPMENT LIAISON.[email or web address] Anesthesia Complication Comment: Post-operative progress note Anesthesia: Postop Eval II Evaluation Mental status: Awake Pain Level: 0 nausea: No Vomiting: No
--- NOTE | 2025-05-25 13:29 | PCM.POSTANE2 ---
Anesthesia Postop Eval I Sum Postop Eval Completion status Anesthesia document: Postop Eval 1 completed: Yes Anesthesia Postop Eval I Summary Anesthesia Postop Eval I Summary: Anesthesia Postop Eval I: Assessment Summary Airway patent Yes 05/25/25 13:01 COMPONENTS ENGINEER.[email or web address] Spontaneous unlabored Yes 05/25/25 13:01 COMPONENTS ENGINEER.GDOTT respirations Mental status Awake,Calm 05/25/25 13:01 COMPONENTS ENGINEER.GDOTT nausea No 05/25/25 13:01 COMPONENTS ENGINEER.GDOTT Vomiting No 05/25/25 13:01 COMPONENTS ENGINEER.GDOTT Anesthesia Postop Eval I: Fluid Summary Crystalloid volume administer 300 05/25/25 13:01 COMPONENTS ENGINEER.GDOTT (ml) Colloids volume administered ( ml) Blood Product volume administered (ml) Total IV fluid infused 300 05/25/25 13:01 COMPONENTS ENGINEER.GDOTT Anesthesia Postop Eval I: Summary Notes Anesthesia Complication No 05/25/25 13:01 COMPONENTS ENGINEER.GDOTT Anesthesia Complication Comment: Post-operative progress note Anesthesia: Postop Eval II Evaluation Mental status: Awake Pain Level: 0 nausea: No Vomiting: No
--- NOTE | 2025-05-25 15:30 | COLBX_PTH ---
PATIENT: MADELYN HIGUERA LOC: EN U#:[id number] AGE/SX: 79/F ROOM: RE05/25/[address]: Dr. Herman Ochoa DO : 1945 BED: DIS: 05/25/2025 SPEC #: [id number] RECD: 05/27/25 07:20 STATUS: CARY LIZVashti #: [id number] KLARISSA: 05/25/25 15:[address]: Herman Ochoa DEPT: SURGICAL PATHOLOGY RECD BY: Jan Cunningham ENTERED: 05/27/25 10:30 SP TYPE: COLON BX OTHR DR: Dr. Hugo Julio MD Tissues: A - Ileum, NOS B - COLON BIOPSY C - Transverse colon Procedures: Surgery Specimen Level IV HEADER OPERATION: Colonoscopy with biopsy PRE-OP DIAGNOSIS: Diarrhea TISSUE SUBMITTED: A- Terminal ileum biopsy, B- Random colon biopsy, C- Transverse colon polyp biopsy MICROSCOPIC DIAGNOSIS A. Small intestine, terminal ileum, biopsy: - Normal villous morphology with no specific pathologic change. - Negative for increased intraepithelial lymphocytes. B. Colon, random, biopsy: - No specific pathologic change. - The histologic features of microscopic colitis are not demonstrated. C. Colon, transverse, polyp, biopsy: - Tubular adenoma. MICROSCOPIC DESCRIPTION Slides are reviewed. GROSS DESCRIPTION A. Received in fixative is one container labeled with the patient's name and designated Terminal ileum biopsy. The specimen consists of multiple irregular fragments of hernandez tissue that in aggregate measure 1 x 0.6 x 0.3 cm. The specimen is totally submitted in one cassette. B. Received in fixative is one container labeled with the patient's name and designated Random colon biopsy. The specimen consists of multiple irregular fragments of hernandez tissue that in aggregate measure 2 x 1 x 0.3 cm. The specimen is totally submitted in one cassette. C. Received in fixative is one container labeled with the patient's name and designated Transverse colon polyp biopsy. The specimen consists of one irregular fragment of hernandez tissue that measures 0.3 x 0.3 x 0.3 cm. The specimen is totally submitted in one cassette. 05/27/2025 CPT:10572d3
== END 2025-05-25 14:13 | disposition home or self-care (01) ==
LOC: EN 10:21 → AC 10:22
PROVIDERS: PCP Family Medicine; Referring Provider Family Medicine; Visit Provider Internal Medicine Gastroenterology
PROC: 0DJD8ZZ Inspection of Lower Intestinal Tract, Via Natural or Artificial Opening Endoscopic (ICD-10-PCS; CPT 45378; principal; 2025-05-25 15:25)
DX: D12.3 Benign neoplasm of transverse colon (principal); K50.90 Crohn's disease, unspecified, without complications; E11.9 Type 2 diabetes mellitus without complications; I10 Essential (primary) hypertension; K57.30 Diverticulosis of large intestine without perforation or abscess without bleeding; Z79.85 Long-term (current) use of injectable non-insulin antidiabetic drugs; K86.89 Other specified diseases of pancreas; K21.9 Gastro-esophageal reflux disease without esophagitis; Z79.01 Long term (current) use of anticoagulants; Z79.899 Other long term (current) drug therapy
CPT/HCPCS: 45380; 82962; 88305